=== PATIENT | male | born 1945 | race Caucasian/White ===

== ENCOUNTER 2018-02-28 18:04 | Inpatient (IN) | payer OTHER ==
--- NOTE | 2018-02-28 19:13 | PDOC ---
History of Present Illness - General Chief Complaint: Edema Stated Complaint: LEFT LEG SWELLING Time Seen by Provider: 02/28/18 19:10 - History of Present Illness Initial Comments: patient is a 72 year old male, with a significant past medical history of CAD, IDDM2, ESRD (on dialysis), who presents to the emergency department from [facility] complaining of poorly healed L toe laceration on the L toe of one month duration. Pt states he suffered a mechanical fall one month ago and lacerated the plantar surface of his distal first phalanx on L foot. Pt states the toe has healed poorly, with no evidence of inflammation or purulence drainage, but becoming more necrotic in appearance and now completely numb in sensation. Pt was recently seen by Dr. Nieves who evaluated him for a possible L popliteal stent, however placement was delayed due to two bouts of PNA recently secondary to R arm fistula procedure for dialysis. Pt finished course of oral abx, however unknown name. Pt is presenting from [facility]. Denies any sick contacts, recent travel or infectious symptoms. Pt with worsening fatigue, constipation over last week. Pt with recent tunneled catheter for dialysis due to issues with R arm fistula (R arm edema, hand weakness/numbness) . Pt receives dialysis TuThSat. Patient denies chest pain, shortness of breath, headache or dizziness. Denies fever, chills, nausea, vomiting, diarrhea. Denies dysuria, frequency, urgency and hematuria. One week of constipation. Allergies: none Past surgical history: R hip fx repair, dialysis port placement one month ago; pacemaker exchange x3, quad bypass; prior cardiac stent Social History: Former smoker 11-12 years ago, one ppd; current drinker, 2-3 drinks per day; no drug use PMD: Dr. Nur 02/28/18 19:11 02/28/18 23:23 Past History - Past Medical History Allergies/Adverse Reactions: Allergies Allergy/AdvReac Type Severity Reaction Status Date / Time No Known Allergies Allergy Verified 02/28/18 18:24 Home Medications: Ambulatory Orders Acetaminophen 650 mg PO BID 02/28/18 Acetaminophen 650 mg PO Q4H PRN 02/28/18 Albuterol 2.5/Ipratropium 0.5 [Duoneb -] 1 amp NEB TID 02/28/18 Amoxicillin/Potassium Clav [Augmentin 500-125 Tablet] 1 each PO BID 02/28/18 Aspirin [ASA -] 81 mg PO DAILY 02/28/18 Atorvastatin Ca [Lipitor] 80 mg PO HS 02/28/18 Calcium Acetate [Phoslo -] 667 mg PO TID 02/28/18 Clopidogrel Bisulfate [Plavix -] 75 mg PO DAILY 02/28/18 Insulin (LOG) Aspart [NovoLOG -] 0 units SQ TID 02/28/18 Insulin Glargine,Hum.rec.anlog [Lantus] 16 unit SQ HS 02/28/18 Levothyroxine [Synthroid -] 25 mcg PO DAILY 02/28/18 Lisinopril 10 mg PO DAILY 02/28/18 Metoprolol Succinate [Toprol Xl] 100 mg PO DAILY 02/28/18 Multivitamin [Multiple Vitamins] 1 each PO DAILY 02/28/18 Oxycodone HCl/Acetaminophen [Percocet 5-325 mg Tablet] 1 - 2 tab PO BID PRN Pantoprazole Sodium 40 mg PO DAILY 02/28/18 Sennosides [Senna -] 1 tab PO HS 02/28/18 Sertraline HCl [Zoloft -] 25 mg PO HS 02/28/18 Sitagliptin Phosphate [Januvia] 25 mg PO DAILY 02/28/18 Cardiac Disorders: Yes (a-fib) COPD: No CHF: Yes Diabetes: Yes (Type 2) Psychiatric Problems: Yes (depression) Thyroid Disease: Yes (Hypothyroidism) Other medical history: End stage renal - Surgical History Cardiac Surgery: Yes (CABG x 3, PPM, Defibrillator) - Suicide/Smoking/Psychosocial Hx Smoking History: Former smoker Have you smoked in the past 12 months: No If you are a former smoker, when did you quit?: 2004 Information on smoking cessation initiated: No Hx Alcohol Use: No Drug/Substance Use Hx: No Substance Use Type: None Review of Systems - Review of Systems Comments:: GENERAL/CONSTITUTIONAL: No fever or chills. worsening fatigue. HEAD, EYES, EARS, NOSE AND THROAT: No change in vision. No ear pain or discharge. No sore throat. CARDIOVASCULAR: No chest pain or shortness of breath RESPIRATORY: Persistent productive cough, wheezing. No hemoptysis. GASTROINTESTINAL: +abdominal distention, constipation. No nausea, vomiting, diarrhea. GENITOURINARY: No dysuria, frequency, or change in urination. MUSCULOSKELETAL: L foot swelling, decreased sensation in L toe. No joint or muscle swelling or pain. No neck or back pain. SKIN: No rash NEUROLOGIC: +Decreased sensation in feet BL. No headache, vertigo, loss of consciousness, or change in strength/sensation. ENDOCRINE: No increased thirst. No abnormal weight change HEMATOLOGIC/LYMPHATIC: No anemia, easy bleeding, or history of blood clots. ALLERGIC/IMMUNOLOGIC: No hives or skin allergy. 02/28/18 19:11 *Physical Exam - Vital Signs Last Vital Signs Temp Pulse Resp BP Pulse Ox 97.9 F 80 16 136/66 92 L 02/28/18 18:05 02/28/18 18:05 02/28/18 18:05 02/28/18 18:05 02/28/18 18:05 - Physical Exam Comments: GENERAL: Elderly man, Awake, alert, and fully oriented, in no acute distress HEAD: No signs of trauma, normocephalic, atraumatic EYES: PERRLA, EOMI, sclera anicteric, conjunctiva clear ENT: Poor dentition. Auricles normal inspection, hearing grossly normal, nares patent, oropharynx clear without exudates. Moist mucosa NECK: Normal ROM, supple, no lymphadenopathy, JVD, or masses LUNGS: Bibasilar crackles, decreased air entry BL. No distress, speaks full sentences. HEART: Regular rate and rhythm, normal S1 and S2, no murmurs, rubs or gallops, peripheral pulses normal and equal bilaterally. L anterior PPM noted. TDC on R chest. ABDOMEN: Moderately distended, Soft, nontender, normoactive bowel sounds. No guarding, no rebound. No masses. Negative fluid wave shift. EXTREMITIES : L 1st digit with necrotic base at distal tip. No purulence of erythema. Numb to palpation on dorsal surface of toe. All other toes and surfaces normal to inspection, Normal range of motion, 2+ pedal edema in L foot. No palpable pulses in L leg, however foot is warm; 1+ DP/PT pulse in R foot. No clubbing or cyanosis. 1+ edema in R hand, R-sided dialysis fistula noted in arm. 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 Cranial nerves II through XII grossly intact. Normal speech, normal gait, no focal sensorimotor deficits SKIN: Warm, Dry, normal turgor, no rashes or lesions noted 02/28/18 19:11 ED Treatment Course - LABORATORY CBC & Chemistry Diagram: 02/28/18 21:10 02/28/18 21:10 Medical Decision Making - Medical Decision Making Patient is a 72 year old male, with a significant past medical history of CAD, IDDM2, ESRD (on dialysis), who presents to the emergency department complaining of poorly healed L toe laceration on the L toe for last month. Pt also with chronic cough for 3 weeks. Will require f/u with Dr. Nieves. Plan: -cbc, cmp, coags, ESR, CRP - Blood, urine cultures -> abx -vascular consult - Arterial and venous doppler of leg - CXR, XR of L foot - Dressing changes 02/28/18 20:11 *DC/Admit/Observation/Transfer Diagnosis at time of Disposition: CHF (congestive heart failure), Toe necrosis - Discharge Dispostion Condition at time of disposition: Fair Decision to Admit order: Yes Decision to Admit order Date/Time: Discussed case with Hospitalist Dr. Coates. Will admit to Tele obs. Sign-out given to Dr. Swartz. 03/01/18 00:47 - Referrals - Patient Instructions - Post Discharge Activity
--- NOTE | 2018-02-28 20:05 | PDOC ---
Attending Attestation - HPI HPI: 02/28/18 21:10 The patient is a 72 year old male from [facility], with a significant past medical history of CAD, DM, end,stage renal disease on dialysis who presents to the emergency department with, one month of a left toe laceration. The patient reports falling a month ago when he obtained a laceration on the first distal phalanx of the left foot. He reports the laceration has not healed well and is described as painful and numb. The patient reports to be following up with Dr. Nieves for a possible left popliteal stent. This has been delayed, however, by two episodes of PNA. He denies any recent fevers, chills, headache or dizziness. He denies any recent nausea, vomit, diarrhea or constipation. He denies any recent chest pain or shortness of breath. He denies any recent dysuria, frequency, urgency or hematuria. Allergies: NKA Past surgical history: R hip fx repair, dialysis port placement one month ago; pacemaker exchange x3, quadruple bypass. Social History: Nonsmoker. Denies EtOH use and recreational drug use. Primary Care Physician: Dr. Nur <Duran Beckham - Last Filed: 02/28/18 21:10> - Resident Resident Name: Placido Luque - ED Attending Attestation I have performed the following: I have examined & evaluated the patient, The case was reviewed & discussed with the resident, I agree w/resident's findings & plan, Exceptions are as noted - Physicial Exam PE: 02/28/18 20:05 *Physical Exam General Appearance: Yes: Appropriately Dressed. No: Apparent Distress, Intoxicated HEENT: positive: EOMI, KASI, Normal ENT Inspection, Normal Voice, TMs Normal, Pharynx Normal. negative: Pale Conjunctivae, Photophobia, Scleral Icterus (R), Scleral Icterus (L) Neck: positive: Trachea midline, Normal Thyroid, Supple. negative: Tender, Rigid, Carotid bruit, Stridor, Lymphadenopathy (R), Lymphadenopathy (L), Thyromegaly Respiratory/Chest: positive: Lungs Clear, Normal Breath Sounds. negative: Chest Tender, Respiratory Distress, Accessory Muscle Use, Labored Respiration, RES, Crackles, Rales, Rhonchi, Stridor, Wheezing, Dullness Cardiovascular: positive: Regular Rhythm, Regular Rate, S1, S2. negative: Edema , JVD, Murmur, Bradycardia, Tachycardia Vascular Pulses: Dorsalis-Pedis (R): 2+, Doralis-Pedis (L): 2+ Gastrointestinal/Abdominal: positive: Normal Bowel Sounds, Flat, Soft. negative : Tender, Organomegaly, Pulsatile Mass, Increased Bowel Sounds, Decreased BS, Distended, Guarding, Rebound, Hernia, Hepatomegaly, Spleenomegaly Lymphatic: negative: Adenopathy, Tenderness Musculoskeletal: right big toe necrotic appearing, dry. non-tender negative: CVA Tenderness, Decreased Range of Motion Extremity: positive: Normal Capillary Refill, Normal Inspection, Normal Range of Motion, Pelvis Stable. negative: Tender, Pedal Edema, Swelling, Erythema Integumentary: positive: Normal Color, Dry, Warm. negative: Cyanotic, Erythema , Jaundice, Rash Neurologic: positive: air conditioning unit tester II-XII NML intact, Fully Oriented, Alert, Normal Mood/ Affect, Motor Strength 5/5. negative: EOM Palsy, Facial Droop, Sensory Deficit - Medical Decision Making 03/01/18 19:16 Pt was admittted to [facility] for definitive care <Blayne Dutta - Last Filed: 03/01/18 19:17> Attestations - Attestations 02/28/18 21:11 Documentation prepared by Duran Beckham, acting as medical device sales representative for Blayne Dutta DO. <Duran Beckham - Last Filed: 02/28/18 21:10>
[2018-02-28 21:47] LABS: EOS % 1.3 % (0-4.5); HEMATOCRIT 29.9 % (35.4-49); HEMOGLOBIN 9.6 GM/dL (11.7-16.9); LYMPH % 13.9 % (8-40); MCH 28.4 pg (25.7-33.7); MCHC 32.2 g/dl (32.0-35.9); MEAN CELL VOLUME 88.3 fl (80-96); MEAN PLT VOLUME 9.2 fl (7.5-11.1); MONO % 12.8 % (3.8-10.2); PLATELET COUNT 231 K/MM3 (134-434); RBC 3.39 M/mm3 (4.00-5.60); RDW 17.6 % (11.9-15.9); WHITE BLOOD COUNT 6.6 K/mm3 (4.0-10.0)
[2018-02-28 21:55] LABS: INR 1.21 (0.82-1.09); PROTHROMBIN TIME (PATIENT) 13.7 SEC (9.7-13.0)
[2018-02-28] MEDS ORDERED: CLINDAMYCIN 600MG PREMIX IVPB 600 MG/50 ML BAG IVPB ONE (22:43)
[2018-02-28 22:48] LABS: ALBUMIN 3.3 g/dl (3.5-5.0); ALK PHOS 131 U/L (32-92); ANION GAP 6 (8-16); BLOOD UREA NITROGEN 35 mg/dl (7-18); CALCIUM 8.8 mg/dl (8.4-10.2); CHLORIDE 95 mmol/L (98-107); CO2 33 mmol/L (22-28); CREATININE 4.6 mg/dl (0.6-1.3); GLUCOSE,RANDOM 121 mg/dl (74-106); POTASSIUM 5.3 mmol/L (3.5-5.1); SGOT/AST 30 U/L (10-42); SGPT/ALT 17 U/L (10-40); SODIUM 134 mmol/L (136-145); TOT PROT 6.5 g/dl (6.4-8.3)
[2018-02-28] MEDS ORDERED: CLINDAMYCIN PHOSPHATE 600 MG/4 ML VIAL ONE (22:53)
[2018-02-28 22:56] LABS: BILIRUBIN,TOTAL < 0.5 mg/dl (0.2-1.0)
[2018-03-01] MEDS ORDERED: ACETAMINOPHEN 325 MG TABLET (FP) PO PRN (00:32)
[2018-03-01 00:43] LABS: ERYTHROCYTE SEDIMENTATION RATE 57 mm/hr (0-20)
--- NOTE | 2018-03-01 00:53 | HP ---
CHIEF COMPLAINT: toe ulcer PCP: Dr. Nur HISTORY OF PRESENT ILLNESS: 72 year old male with a pmh CAD s/p quadruple bypass, IDDM, ESRD (TuThuSat), hypothyroid presents to the emergency department from [facility] complaining of poorly healed L great toe laceration on the L toe of one month duration s/p mechanical fall. Patient does not feel pain on the toe and said that it has been progressively becoming more and more black and dry. Pt was recently seen by Dr. Oliver who evaluated him for a possible L popliteal stent, however placement was delayed due to two bouts of PNA. Pt is presenting from [facility]. Denies any sick contacts, recent travel or infectious symptom. Patient with recent tunneled catheter for dialysis due to issues with R arm fistula (R arm edema, hand weakness/numbness). Patient denies chest pain, shortness of breath, headache or dizziness. Denies fever, chills, nausea, vomiting, diarrhea. Denies dysuria, frequency, urgency and hematuria. One week of constipation. ER course was notable for: (1) (2) (3) Recent Travel: none PAST MEDICAL HISTORY: see above PAST SURGICAL HISTORY: R hip fx repair, dialysis port placement one month ago; pacemaker exchange x3, quad bypass; prior cardiac stent Social History: Smoking: former smoker quit 12 years ago Alcohol: denies drinking, but told ED staff drinks 2-3 a day Drugs: denies Family History: Allergies No Known Allergies Allergy (Verified 02/28/18 18:24) HOME MEDICATIONS: Home Medications Medication Instructions Recorded Acetaminophen 650 mg PO BID 02/28/18 Acetaminophen 650 mg PO Q4H PRN 02/28/18 Albuterol 2.5/Ipratropium 0.5 1 amp NEB TID 02/28/18 [Duoneb -] Amoxicillin/Potassium Clav 1 each PO BID 02/28/18 [Augmentin 500-125 Tablet] Aspirin [ASA -] 81 mg PO DAILY 02/28/18 Atorvastatin Ca [Lipitor] 80 mg PO HS 02/28/18 Calcium Acetate [Phoslo -] 667 mg PO TID 02/28/18 Clopidogrel Bisulfate [Plavix -] 75 mg PO DAILY 02/28/18 Insulin (LOG) Aspart [NovoLOG -] 0 units SQ TID 02/28/18 Insulin Glargine,Hum.rec.anlog 16 unit SQ HS 02/28/18 [Lantus] Levothyroxine [Synthroid -] 25 mcg PO DAILY 02/28/18 Lisinopril 10 mg PO DAILY 02/28/18 Metoprolol Succinate [Toprol Xl] 100 mg PO DAILY 02/28/18 Multivitamin [Multiple Vitamins] 1 each PO DAILY 02/28/18 Oxycodone HCl/Acetaminophen 1 - 2 tab PO BID PRN 02/28/18 [Percocet 5-325 mg Tablet] Pantoprazole Sodium 40 mg PO DAILY 02/28/18 Sennosides [Senna -] 1 tab PO HS 02/28/18 Sertraline HCl [Zoloft -] 25 mg PO HS 02/28/18 Sitagliptin Phosphate [Januvia] 25 mg PO DAILY 02/28/18 REVIEW OF SYSTEMS CONSTITUTIONAL: Absent: fever, chills, diaphoresis, generalized weakness, malaise, loss of appetite, weight change HEENT: Absent: rhinorrhea, nasal congestion, throat pain, throat swelling, difficulty swallowing, mouth swelling, ear pain, eye pain, visual changes CARDIOVASCULAR: Absent: chest pain, syncope, palpitations, irregular heart rate, lightheadedness , peripheral edema RESPIRATORY: cough, shortness of breath Absent: dyspnea with exertion, orthopnea, wheezing, stridor, hemoptysis GASTROINTESTINAL: abdominal distension, constipation Absent: abdominal pain, nausea, vomiting, diarrhea, melena, hematochezia GENITOURINARY: Absent: dysuria, frequency, urgency, hesitancy, hematuria, flank pain, genital pain MUSCULOSKELETAL: Foot swelling and numbness Absent: myalgia, arthralgia, joint swelling, back pain, neck pain SKIN: Absent: rash, itching, pallor HEMATOLOGIC/IMMUNOLOGIC: Absent: easy bleeding, easy bruising, lymphadenopathy, frequent infections ENDOCRINE: Absent: unexplained weight gain, unexplained weight loss, heat intolerance, cold intolerance NEUROLOGIC: Absent: headache, focal weakness or paresthesias, dizziness, unsteady gait, seizure, mental status changes, bladder or bowel incontinence PSYCHIATRIC: Absent: anxiety, depression, suicidal or homicidal ideation, hallucinations. PHYSICAL EXAMINATION Vital Signs - 24 hr 02/28/18 18:05 Temperature 97.9 F Pulse Rate 80 Respiratory 16 Rate Blood Pressure 136/66 O2 Sat by Pulse 92 L Oximetry (%) GENERAL: A&Ox3, no acute distress EYES: PERRLA, EOMI ENT: Moist mucus membranes NECK: No JVD LUNGS: bilateral, bibasilar, crackles noted, no wheezes HEART: RRR, no murmurs ABDOMEN: distended but rather soft, nontender, BS present, dull to percussion MUSCULOSKELETAL: No CVA Tenderness EXTREMITIES: 0+ pulses palpated bilaterally, L foot cool to palpation, swollen up to area of ankle, dry gangrene noted on L great toe. area of ischemia noted surrounding L foot. R foot cool to palpation, area of ischemia noted around distal phalanges of foot. R arm fistula scar noted. NEUROLOGICAL: Cranial nerves II-XII intact. Laboratory Results - last 24 hr 02/28/18 02/28/18 02/28/18 21:10 21:10 21:10 WBC 6.6 RBC 3.39 L Hgb 9.6 L Hct 29.9 L MCV 88.3 MCH 28.4 MCHC 32.2 RDW 17.6 H Plt Count 231 MPV 9.2 Neutrophils % 71.0 Lymphocytes % 13.9 Monocytes % 12.8 H Eosinophils % 1.3 Basophils % 1.0 Nucleated RBC % 0 ESR 57 H PT with INR 13.70 H INR 1.21 H Sodium 134 L Potassium 5.3 H Chloride 95 L Carbon Dioxide 33 H Anion Gap 6 L BUN 35 H Creatinine 4.6 H Creat Clearance w eGFR 12.62 Random Glucose 121 H Calcium 8.8 Total Bilirubin < 0.5 AST 30 ALT 17 Alkaline Phosphatase 131 H Total Protein 6.5 Albumin 3.3 L Current Medications Acetaminophen (Tylenol -) 650 mg PO Q6H PRN PRN Reason: PAIN Acetaminophen (Tylenol -) 325 mg PO Q12H PRN PRN Reason: PAIN LEVEL 6-10 Albuterol/Ipratropium (Duoneb -) 1 amp NEB TID [facility] Aspirin (Asa -) 81 mg PO DAILY [facility] Atorvastatin Calcium (Lipitor -) 80 mg PO HS [facility] Calcium Acetate (Phoslo -) 667 mg PO TID [facility] Heparin Sodium (Porcine) (Heparin -) 5,000 unit SQ Q8H-IV [facility] Insulin Aspart (Novolog Vial Sliding Scale -) 0 vial SQ ACHS [facility]; Protocol Levothyroxine Sodium (Synthroid -) 25 mcg PO DAILY [facility] Lisinopril (Prinivil) 10 mg PO DAILY [facility] Metoprolol Succinate (Toprol Xl -) 100 mg PO DAILY [facility] Multivitamins/Minerals/Vitamin C (Tab-A-Vit -) 1 tab PO DAILY [facility] Oxycodone HCl (Roxicodone -) 5 mg PO Q12H PRN PRN Reason: PAIN LEVEL 6-10 Pantoprazole Sodium (Protonix -) 40 mg PO DAILY [facility] Senna (Senna -) 1 tab PO HS [facility] Sertraline HCl (Zoloft -) 25 mg PO HS [facility] ASSESSMENT/PLAN: 72M hx CAD s/p quadruple bypass, IDDM, ESRD (TuTSat), hypothyroidism presents to the hospital for 1 month history of toe laceration #L Great Toe Wound: patient's toe is gangrenous and dry, will likely need evaluation for both amputation and revascularization. -clinda given in ED -vancomycin/zosyn -MRI to r/o osteo -ESR elevated -Dr. oliver consult appreciated -oxycodone for pain #Diabetes: glucose controlled -ISS -BGMS ACHS -A1C in the morning #ESRD: gets dialysis tuthusat, patient appears fluid overloaded and is making minimal urine- attempt to remove fluid during dialysis -Dr. Brady consultation appreciated -for dialysis tomorrow #Hypothyroidism: -continue synthroid #CAD: s/p pacemaker x3 -continue aspirin -hold plavix for possible surgery -continue atorvastatin 80 -lipid profile #FEN -NPO -no standing fluids -for dialysis tomorrow, careful with electrolyte repletion #Prophylaxis -heparin prophylaxis #Disposition -admit med surg -fall precautions Visit type - Emergency Visit Emergency Visit: Yes ED Registration Date: 03/01/18 Care time: The patient presented to the Emergency Department on the above date and was hospitalized for further evaluation of their emergent condition. - New Patient This patient is new to me today: Yes Date on this admission: 03/01/18 - Critical Care Critical Care patient: No Hospitalist Screening - Colonoscopy Questionnaire Colonoscopy Questionnaire: Colonoscopy Questionnaire - Patient: 50 - 75 years old and never had a screening colonoscopy: Unknown History of colon or rectal polyps, or CA: Unknown History of IBD, Crohn's disease or UC: Unknown History of abdominal radiation therapy as a child: Unknown - Relative: 1 with colon or rectal CA, or polyps at age 60 or younger: Unknown Colon or rectal CA diagnosed at age 45 or younger: Unknown Multiple relatives with colon or rectal CA: Unknown - Outcome: Screening Result: Negative Screen
[2018-03-01] MEDS ORDERED: POLYETHYLENE GLYCOL 3350 119 GM BTL PO ONE (01:14)
[2018-03-01] MEDS ORDERED: HEPARIN NA (PORCINE) 5,000 UNITS/ML 1ML VIAL SQ SCH (02:00)
[2018-03-01] MEDS ORDERED: SODIUM POLYSTYRENE SULFONATE 15 GM/60 ML BOTTLE PO ONE (04:09)
--- NOTE | 2018-03-01 04:39 | PN ---
Teaching Attending Note Name of Resident: Roberth Swartz ATTENDING PHYSICIAN STATEMENT I saw and evaluated the patient. Chart, data reviewed. I reviewed the resident's note and discussed the case with the resident. I agree with the resident's findings and plan as documented. SUBJECTIVE: 72 year old male with a pmh CAD s/p quadruple bypass, IDDM, ESRD (TuThuSat), hypothyroidism presented to emergency department from [facility] complaining of pain in left foot and left hallux necrosis. Recently seen by Dr. Nieves of vascular surgery. Denied any fevers, chills, or night sweats. Recent mechanical fall+ OBJECTIVE: Last Vital Signs Temp Pulse Resp BP Pulse Ox 97.5 F L 81 18 140/76 92 L 03/01/18 02:46 03/01/18 02:46 03/01/18 02:46 03/01/18 02:46 02/28/18 18:05 general -nad, aaox3 heent -at,nc, moist oral mucosa neck -supple cv-s1+s2+rrr chest- -bibasilar crackles abdomen- soft, nt ext -left 1st toe necrotic appearing, some surrounding erythema, right arm avf- good thrill and bruit Abnormal Lab Results 02/28/18 02/28/18 02/28/18 21:10 21:10 21:10 RBC 3.39 L Hgb 9.6 L Hct 29.9 L RDW 17.6 H Monocytes % 12.8 H ESR 57 H PT with INR 13.70 H INR 1.21 H Sodium 134 L Potassium 5.3 H Chloride 95 L Carbon Dioxide 33 H Anion Gap 6 L BUN 35 H Creatinine 4.6 H Random Glucose 121 H Alkaline Phosphatase 131 H C-Reactive Protein 3.2 H Albumin 3.3 L ASSESSMENT AND PLAN: #72yo man with ESRD on HD w/ PVD w/ left hallux dry gangrene and likely surrounding cellulitis No signs of sepsis. Possible underlying osteomyelitis. -blood cultures x2 -crp -vancomycin 1g stat -zosyn 2.25g iv stat -podiatry and vascular surgery evaluation -id for antiobiotic approval -local wound care -leg elevation -mri of foot -Renal for HD set up. Continue home meds -heparin sc for dvt ppx
[2018-03-01] MEDS: HEPARIN NA (PORCINE) 5,000 UNITS/ML 1ML VIAL SQ SCH ×2 (06:08→21:08)
[2018-03-01 07:11] LABS: HEMATOCRIT 28.4 % (35.4-49); HEMOGLOBIN 9.2 GM/dL (11.7-16.9); MCH 28.9 pg (25.7-33.7); MCHC 32.5 g/dl (32.0-35.9); MEAN CELL VOLUME 88.9 fl (80-96); PLATELET COUNT 207 K/MM3 (134-434); RDW 17.5 % (11.9-15.9); WHITE BLOOD COUNT 7.1 K/mm3 (4.0-10.0)
[2018-03-01 07:48] LABS: ANION GAP 6 (8-16); BLOOD UREA NITROGEN 40 mg/dL (7-18); CALCIUM 8.4 mg/dL (8.5-10.1); CHLORIDE 99 mmol/L (98-107); CO2 32 mmol/L (21-32); CREATININE 5.1 mg/dL (0.7-1.3); GLUCOSE,RANDOM 98 mg/dL (74-106); MAGNESIUM 2.9 mg/dL (1.8-2.4); PHOSPHOROUS 2.9 mg/dL (2.5-4.9); POTASSIUM 5.5 mmol/L (3.5-5.1); SODIUM 137 mmol/L (136-145)
[2018-03-01 08:41] LABS: URINE APPEARANCE CLEAR; URINE BILIRUBIN NEGATIVE (<2.0 mg/dL); URINE BLOOD 2+ (NEGATIVE); URINE COLOR DKYELLOW; URINE GLUCOSE (UA) 1+ (NEGATIVE); URINE KETONE NEGATIVE (NEGATIVE); URINE LEUK ESTERASE NEGATIVE (NEGATIVE); URINE NITRITE NEGATIVE (NEGATIVE); URINE UROBILINOGEN NEGATIVE mg/dL (0.2-1.0)
[2018-03-01 08:48] LABS: URINE PROTEIN 3+ (NEGATIVE)
[2018-03-01 08:49] LABS: EPI CELLS RARE /HPF (FEW); URINE HYALINE CAST 1 /lpf; URINE MUCUS RARE
[2018-03-01 09:34] LABS: CHOLESTEROL 62 mg/dL (50-200); HDL CHOLESTEROL 34 mg/dL (40-60); TRIGLYCERIDES 61 mg/dL (35-160)
[2018-03-01] MEDS ORDERED: ACETAMINOPHEN 325 MG TABLET (FP) ONE (09:38)
[2018-03-01] MEDS ORDERED: oxyCODONE HCL 5 MG TABLET ONE (09:38)
[2018-03-01] MEDS ORDERED: LEVOTHYROXINE NA 25 MCG TABLET (FP) ONE (09:38)
[2018-03-01] MEDS: INSULIN SLIDING SCALE (NOVOLOG) 1 VIAL SQ SCH ×3 (09:40→21:04)
[2018-03-01] MEDS ORDERED: ALBUTEROL SO4 2.5/IPRATROPIUM 0.5 INH SOL 3 ML VIAL.NEB. NEB ONE (09:42)
[2018-03-01] MEDS ORDERED: CLOPIDOGREL BISULFATE 75 MG TABLET (FP) PO SCH (10:00)
[2018-03-01] MEDS ORDERED: PIPERACILLIN/TAZOB 2.25 GM 2.25 GM in DEXTROSE 5%-WATER - 50 ML IVPB SCH (10:00)
[2018-03-01] MEDS: LEVOTHYROXINE NA 25 MCG TABLET (FP) PO SCH (10:01)
[2018-03-01] MEDS: CALCIUM ACETATE 667 MG CAPSULE (FP) PO SCH (10:01)
[2018-03-01] MEDS: ALBUTEROL SO4 2.5/IPRATROPIUM 0.5 INH SOL 3 ML VIAL.NEB. NEB SCH ×2 (10:01→21:15)
[2018-03-01] MEDS: MULTIVITAMINS (DAILY MVI) TABLET (FP) PO SCH (10:02)
[2018-03-01] MEDS: PANTOPRAZOLE 40 MG TABLET (FP) PO SCH (10:02)
[2018-03-01] MEDS: LISINOPRIL 10 MG TABLET (FP) PO SCH (10:02)
[2018-03-01] MEDS: ASPIRIN 81 MG CHEWABLE TABLETS PO SCH (10:02)
[2018-03-01] MEDS: oxyCODONE HCL 5 MG TABLET PO PRN (10:38)
[2018-03-01] MEDS: ACETAMINOPHEN 325 MG TABLET (FP) PO PRN (10:38)
[2018-03-01] MEDS ORDERED: VANCOMYCIN 1,000 MG in DEXTROSE 5%-WATER - 250 ML IVPB SCH (11:00)
--- NOTE | 2018-03-01 13:36 | CONSULT ---
Consult Consult Specialty:: Nephrology Reason for Consultation:: ESRD - History of Present Illness Chief Complaint: non healing left toe ulcer History of Present Illness: Pt is a 72 year old male with pmhx of CAD, DM, ESRD (TTS), and PNA who presents to the ER with a non healing left toe ulcer. I was called to evaluate him as he is on HD. He is on a TTS schedule. His last dialysis was on Monday. He denies fevers or chills. He says he does have PVD and follows with Dr Nieves. He denies chest pain or palpitations. - History Source History Provided By: Patient, Medical Record - Past Medical History Cardio/Vascular: Yes: CAD Renal/: Yes: Renal Inusuff, Hemodialysis Endocrine: Yes: Diabetes Mellitus - Past Surgical History Past Surgical History: Yes: AV Fistula/Graft - Alcohol/Substance Use Hx Alcohol Use: No - Smoking History Smoking history: Former smoker Have you smoked in the past 12 months: No If you are a former smoker, when did you quit?: 2004 Home Medications - Allergies Allergies/Adverse Reactions: Allergies Allergy/AdvReac Type Severity Reaction Status Date / Time No Known Allergies Allergy Verified 02/28/18 18:24 - Home Medications Home Medications: Ambulatory Orders Acetaminophen 650 mg PO BID 02/28/18 Acetaminophen 650 mg PO Q4H PRN 02/28/18 Albuterol 2.5/Ipratropium 0.5 [Duoneb -] 1 amp NEB TID 02/28/18 Amoxicillin/Potassium Clav [Augmentin 500-125 Tablet] 1 each PO BID 02/28/18 Aspirin [ASA -] 81 mg PO DAILY 02/28/18 Atorvastatin Ca [Lipitor] 80 mg PO HS 02/28/18 Calcium Acetate [Phoslo -] 667 mg PO TID 02/28/18 Clopidogrel Bisulfate [Plavix -] 75 mg PO DAILY 02/28/18 Insulin (LOG) Aspart [NovoLOG -] 0 units SQ TID 02/28/18 Insulin Glargine,Hum.rec.anlog [Lantus] 16 unit SQ HS 02/28/18 Levothyroxine [Synthroid -] 25 mcg PO DAILY 02/28/18 Lisinopril 10 mg PO DAILY 02/28/18 Metoprolol Succinate [Toprol Xl] 100 mg PO DAILY 02/28/18 Multivitamin [Multiple Vitamins] 1 each PO DAILY 02/28/18 Oxycodone HCl/Acetaminophen [Percocet 5-325 mg Tablet] 1 - 2 tab PO BID PRN Pantoprazole Sodium 40 mg PO DAILY 02/28/18 Sennosides [Senna -] 1 tab PO HS 02/28/18 Sertraline HCl [Zoloft -] 25 mg PO HS 02/28/18 Sitagliptin Phosphate [Januvia] 25 mg PO DAILY 02/28/18 Family Disease History - Family Disease History Family History: Denies Review of Systems - Review of Systems Constitutional: reports: Malaise Eyes: reports: No Symptoms HENT: reports: No Symptoms Neck: reports: No Symptoms Cardiovascular: reports: No Symptoms Respiratory: reports: No Symptoms Gastrointestinal: reports: No Symptoms Genitourinary: reports: No Symptoms Breasts: reports: No Symptoms Reported Musculoskeletal: reports: Other (left toe swelling and pain) Neurological: reports: No Symptoms Endocrine: reports: No Symptoms Hematology/Lymphatic: reports: No Symptoms Physical Exam Vital Signs: Vital Signs Temperature 98.0 F 03/01/18 11:27 Pulse Rate 81 03/01/18 11:27 Respiratory Rate 18 03/01/18 11:27 Blood Pressure 142/80 03/01/18 11:27 O2 Sat by Pulse Oximetry (%) 99 03/01/18 11:27 Constitutional: Yes: Calm Eyes: Yes: Conjunctiva Clear HENT: Yes: Atraumatic Neck: Yes: Supple Cardiovascular: Yes: S1, S2 Respiratory: Yes: On Nasal O2, Rhonchi Gastrointestinal: Yes: Soft Renal/: Yes: WNL Musculoskeletal: Yes: Other (left toe erythema and swelling) Edema: Yes Edema: LLE: 1+, RLE: 1+ Neurological: Yes: Oriented Psychiatric: Yes: Oriented Labs: CBC, BMP 03/01/18 05:47 03/01/18 05:47 Laboratory Tests 02/28/18 02/28/18 03/01/18 21:10 21:10 05:47 Hgb 9.6 L 9.2 L Sodium Potassium 5.3 H Creatinine 4.6 H 03/01/18 05:47 Hgb Sodium 137 Potassium 5.5 H Creatinine 5.1 H Imaging - Results Chest X-ray: Report Reviewed Problem List - Problems (1) ESRD (end stage renal disease) Code(s): N18.6 - END STAGE RENAL DISEASE (2) Hyperkalemia Code(s): E87.5 - HYPERKALEMIA Assessment/Plan Current Medications Generic Name Dose Route Start Last Admin Trade Name Freq PRN Reason Stop Dose Admin Acetaminophen 650 mg 03/01/18 00:27 03/01/18 10:38 Tylenol - PO 650 mg Q6H PRN Administration PAIN Acetaminophen 325 mg 03/01/18 00:32 Tylenol - PO Q12H PRN PAIN LEVEL 6-10 Albuterol/Ipratropium 1 amp 03/01/18 08:00 03/01/18 10:01 Duoneb - NEB 1 amp RTID [facility] Administration Aspirin 81 mg 03/01/18 10:00 03/01/18 10:02 Asa - PO 81 mg DAILY [facility] Administration Atorvastatin Calcium 80 mg 03/01/18 22:00 Lipitor - PO HS [facility] Calcium Acetate 667 mg 03/01/18 08:00 03/01/18 10:01 Phoslo - PO 667 mg TIDCM [facility] Administration Heparin Sodium (Porcine) 5,000 unit 03/01/18 06:00 03/01/18 06:08 Heparin - SQ 5,000 unit TID [facility] Administration Vancomycin HCl 1,000 mg/ 250 mls @ 200 mls/hr 03/01/18 11:00 Dextrose IVPB Q24H [facility] Protocol Piperacillin Sod/Tazobactam 50 mls @ 100 mls/hr 03/01/18 10:00 03/01/18 10:02 Sod 2.25 gm/ Dextrose IVPB 100 mls/hr BID [facility] Administration Protocol Insulin Aspart 0 vial 03/01/18 07:00 03/01/18 09:40 Novolog Vial Sliding Scale - SQ Not Given ACHS [facility] Protocol Levothyroxine Sodium 25 mcg 03/01/18 07:00 03/01/18 10:01 Synthroid - PO 25 mcg DAILY@0700 [facility] Administration Lisinopril 10 mg 03/01/18 10:00 03/01/18 10:02 Prinivil PO 10 mg DAILY [facility] Administration Metoprolol Succinate 100 mg 03/01/18 10:00 03/01/18 10:02 Toprol Xl - PO 100 mg DAILY [facility] Administration Multivitamins/Minerals/Vitamin C 1 tab 03/01/18 10:00 03/01/18 10:02 Tab-A-Vit - PO 1 tab DAILY [facility] Administration Oxycodone HCl 5 mg 03/01/18 00:32 03/01/18 10:38 Roxicodone - PO 5 mg Q12H PRN Administration PAIN LEVEL 6-10 Pantoprazole Sodium 40 mg 03/01/18 10:00 03/01/18 10:02 Protonix - PO 40 mg DAILY [facility] Administration Senna 1 tab 03/01/18 22:00 Senna - PO HS [facility] Sertraline HCl 25 mg 03/01/18 22:00 Zoloft - PO HS [facility] Impression 1. ESRD 2. hyperkalemia 3. DM 4. CAD 5. PVD 6. DFU 7. anemia Plan - will arrange for HD today - abx per AID - vascular eval - podiatry eval - follow cultures - will treat potassium with HD - Right avF, 3:30, 2 k bath, 450 abf, aranesp 35 mcg received on Monday
[2018-03-01] MEDS ORDERED: SODIUM CHLORIDE 250 ML IV PRN (13:39)
--- NOTE | 2018-03-01 13:44 | PN ---
Progress Note (short form) - Note Progress Note: ID Consult dictated Gangrene L foot R/O sepsis secondary to foot source ESRD Await c/s Surgical evaluation Empiric zosyn/ vancomycin, adjusted for ESRD
--- NOTE | 2018-03-01 14:37 | CONS ---
DATE OF CONSULTATION: DATE OF DICTATION: 03/01/2018 The patient is a 72-year-old diabetic male, history of end-stage renal disease on hemodialysis, evaluated for gangrene of the left foot. He is a shelter resident. He sustained a laceration to his left great toe approximately 1 month ago. He had fallen and sustained a laceration. Since that time it has become more swollen and erythematous. He developed necrotic changes of the great toe and increased numbness. He presented to the emergency room where he was found to have gangrene of the left great toe and erythema of the adjacent toes. He denies any purulent wound drainage. No associated fever or chills. He recently completed a course of antibiotics for pneumonia. Cultures were obtained. He was empirically treated with vancomycin, Zosyn, and clindamycin. PAST MEDICAL HISTORY: Positive for end-stage renal disease on hemodialysis, insulin-dependent diabetes mellitus, coronary artery disease, atrial fibrillation, congestive heart failure, depression, hypothyroidism. PAST SURGICAL HISTORY: Status post right upper extremity AV fistula, a history of right chest dialysis catheter which has been removed, right hip fracture, permanent pacemaker. ALLERGIES: No known allergies. SOCIAL HISTORY: Former smoker. REVIEW OF SYSTEMS: Neurologic: No loss of consciousness, seizure activity, focal weakness. Cardiac: Negative chest pain or palpitations. Respiratory: Negative cough or sputum production. Gastrointestinal: Negative vomiting or diarrhea. Genitourinary: End-stage renal disease on dialysis. LABORATORY DATA: White count 7.1, hematocrit 28.4, platelet count 207, BUN 46, creatinine 5.1. ESR is 57. Urinalysis with 4 white cells. Blood cultures pending. Chest x-ray: Left pleural effusion. PHYSICAL EXAMINATION: General: He is awake and alert. He is chronically ill appearing. Vital Signs: Temperature 97.4, blood pressure 136/51, pulse 82, regular. Respirations 22 per minute. HEENT: Sclerae are anicteric. Cardiovascular: Heart sounds S1, S2. Lungs: Clear. Abdomen: Soft. No tenderness elicited. No mass, rebound, rigidity. Extremities: There is an AV fistula present in the right upper extremity. Surgical dressing is present over the right dialysis catheter exit site. Examination of the left foot: There is dry gangrene involving the left great toe, with hyperemia involving the remaining great toe as well as the 2nd and 3rd toes. No purulent wound drainage or foul odor is noted. IMPRESSION: 1. Gangrene, left foot. 2. Rule out sepsis secondary to foot source. 3. End-stage renal disease on hemodialysis. Await culture results. Surgical evaluation, empiric antibiotic coverage with Zosyn and vancomycin adjusted for end-stage renal disease. Will follow. Thank you for the kind referral. DORITA MAYER M.D. [id number]
[2018-03-01] MEDS ORDERED: EPOETIN ALFA 2,000 UNIT/1 ML VIAL IVPUSH ONE (15:00)
[2018-03-01] MEDS ORDERED: INSULIN (NOVOLOG) ASPART 100 UNITS/ML 10ML VIAL ONE (20:31)
[2018-03-01] MEDS ORDERED: PIPERACILLIN/TAZOBACTAM 2.25 GM VIAL IVPB ONE (20:48)
[2018-03-01] MEDS ORDERED: DEXTROSE 5%-WATER - 50 ML IVPB ONE (20:49)
[2018-03-01] MEDS: PIPERACILLIN/TAZOB 2.25 GM 2.25 GM in DEXTROSE 5%-WATER - 50 ML IVPB SCH (21:02)
[2018-03-01] MEDS: ATORVASTATIN CA 80 MG TABLET (FP) PO SCH (21:04)
[2018-03-01] MEDS: SENNOSIDES 8.6MG TABLET (FP) PO SCH (21:04)
[2018-03-01] MEDS: SERTRALINE HCL 25 MG TABLET (FP) PO SCH (21:04)
[2018-03-01] MEDS ORDERED: MAGNESIUM HYDROX 2400MG/30ML ORAL SUSPENSION 30 ML CUP PO ONE (23:51)
[2018-03-02] MEDS ORDERED: PIPERACILLIN/TAZOBACTAM 2.25 GM VIAL IVPB ONE ×3 (02:58→16:57)
[2018-03-02] MEDS ORDERED: DEXTROSE 5%-WATER - 50 ML IVPB ONE ×3 (02:58→16:57)
[2018-03-02] MEDS: PIPERACILLIN/TAZOB 2.25 GM 2.25 GM in DEXTROSE 5%-WATER - 50 ML IVPB SCH ×3 (03:00→17:04)
[2018-03-02] MEDS ORDERED: PT OWN MED DRAWER 7, Y5N ONE (05:51)
[2018-03-02] MEDS: HEPARIN NA (PORCINE) 5,000 UNITS/ML 1ML VIAL SQ SCH ×3 (06:02→22:23)
[2018-03-02] MEDS: INSULIN SLIDING SCALE (NOVOLOG) 1 VIAL SQ SCH ×4 (06:02→22:22)
[2018-03-02] MEDS: LEVOTHYROXINE NA 25 MCG TABLET (FP) PO SCH (06:03)
[2018-03-02] MEDS: ALBUTEROL SO4 2.5/IPRATROPIUM 0.5 INH SOL 3 ML VIAL.NEB. NEB SCH ×3 (08:02→20:23)
[2018-03-02] MEDS: LISINOPRIL 10 MG TABLET (FP) PO SCH (10:22)
[2018-03-02] MEDS: MULTIVITAMINS (DAILY MVI) TABLET (FP) PO SCH (10:22)
[2018-03-02] MEDS: ASPIRIN 81 MG CHEWABLE TABLETS PO SCH (10:22)
[2018-03-02] MEDS: PANTOPRAZOLE 40 MG TABLET (FP) PO SCH (10:22)
[2018-03-02] MEDS: CALCIUM ACETATE 667 MG CAPSULE (FP) PO SCH ×3 (10:23→17:04)
[2018-03-02] MEDS ORDERED: SODIUM CHLORIDE 250 ML IV PRN (10:33)
--- NOTE | 2018-03-02 14:00 | PN ---
Progress Note (short form) - Note Progress Note: pt seen/examined chart reviewed comfortable mild sob. no cp. Vital Signs Temp 97.7 F 03/02/18 10:00 Pulse 80 03/02/18 10:00 Resp 20 03/02/18 10:00 BP 153/64 03/02/18 10:00 Pulse Ox 100 03/02/18 09:00 Intake & Output 03/01/18 03/02/18 03/02/18 23:59 11:59 23:59 Intake Total 200 50 Balance 200 50 Weight 163 lb 163 lb 3.2 oz Intake: IVPB 50 Oral 200 Other: Voiding Method Urinal Urinal Height 5 ft 6 in Body Mass Index (BMI) 26.3 Weight Measurement Method Standing Scale Standing Scale Active Medications Acetaminophen (Tylenol -) 650 mg PO Q6H PRN PRN Reason: PAIN Last Admin: 03/01/18 10:38 Dose: 650 mg Acetaminophen (Tylenol -) 325 mg PO Q12H PRN PRN Reason: PAIN LEVEL 6-10 Albuterol/Ipratropium (Duoneb -) 1 amp NEB RTID [facility] Last Admin: 03/02/18 13:50 Dose: 1 amp Aspirin (Asa -) 81 mg PO DAILY [facility] Last Admin: 03/02/18 10:22 Dose: 81 mg Atorvastatin Calcium (Lipitor -) 80 mg PO HS [facility] Last Admin: 03/01/18 21:04 Dose: 80 mg Calcium Acetate (Phoslo -) 667 mg PO TIDCM [facility] Last Admin: 03/02/18 10:23 Dose: 667 mg Heparin Sodium (Porcine) (Heparin -) 5,000 unit SQ TID [facility] Last Admin: 03/02/18 06:02 Dose: Not Given Piperacillin Sod/Tazobactam (Sod 2.25 gm/ Dextrose) 50 mls @ 100 mls/hr IVPB Q8H-IV [facility]; Protocol Last Admin: 03/02/18 10:22 Dose: 100 mls/hr Insulin Aspart (Novolog Vial Sliding Scale -) 0 vial SQ ACHS [facility]; Protocol Last Admin: 03/02/18 12:24 Dose: Not Given Levothyroxine Sodium (Synthroid -) 25 mcg PO DAILY@0700 [facility] Last Admin: 03/02/18 06:03 Dose: 25 mcg Lisinopril (Prinivil) 10 mg PO DAILY [facility] Last Admin: 05/25/18 10:22 Dose: 10 mg Metoprolol Succinate (Toprol Xl -) 100 mg PO DAILY [facility] Last Admin: 03/02/18 10:22 Dose: 100 mg Multivitamins/Minerals/Vitamin C (Tab-A-Vit -) 1 tab PO DAILY [facility] Last Admin: 03/02/18 10:22 Dose: 1 tab Oxycodone HCl (Roxicodone -) 5 mg PO Q12H PRN PRN Reason: PAIN LEVEL 6-10 Last Admin: 03/01/18 10:38 Dose: 5 mg Pantoprazole Sodium (Protonix -) 40 mg PO DAILY [facility] Last Admin: 03/02/18 10:22 Dose: 40 mg Senna (Senna -) 1 tab PO [facility] Last Admin: 03/01/18 21:04 Dose: 1 tab Sertraline HCl (Zoloft -) 25 mg PO HS [facility] Last Admin: 03/01/18 21:04 Dose: 25 mg CBC, BMP 03/01/18 05:47 03/01/18 05:47 Physical Exam Constitutional: Yes: Calm, comfortable Eyes: Yes: Conjunctiva Clear HENT: Yes: wnl Neck: Yes: Supple, no jvd Cardiovascular: Yes: S1, S2 rrr Respiratory: Yes: Diminished at bases Gastrointestinal: Yes: Soft/ non tender Musculoskeletal: Yes: Other (left toe erythema and swelling) Edema: LLE: 1+, RLE: 1+ Neurological: Yes: alert and awake Psychiatric: Yes: Oriented Imaging - Results Chest X-ray: Report Reviewed Assessment/Plan 1. ESRD 2. hyperkalemia 3. DM 4. CAD 5. PVD 6. Anemia 7. Pleural Effusion HD per renal continue present care cardiology and pulmonary eval vascular to follow will discuss with Dr. Nieves Discussed with nursing staff also will follow Problem List - Problems (1) ASHD (arteriosclerotic heart disease) Code(s): I25.10 - ATHSCL HEART DISEASE OF [place] CORONARY ARTERY W/O ANG PCTRS (2) CHF (congestive heart failure), NYHA class IV Code(s): I50.9 - HEART FAILURE, UNSPECIFIED (3) COPD (chronic obstructive pulmonary disease) Code(s): J44.9 - CHRONIC OBSTRUCTIVE PULMONARY DISEASE, UNSPECIFIED (4) Diabetes Code(s): E11.9 - TYPE 2 DIABETES MELLITUS WITHOUT COMPLICATIONS (5) ESRD (end stage renal disease) Code(s): N18.6 - END STAGE RENAL DISEASE (6) Gangrene Code(s): I96 - GANGRENE, NOT ELSEWHERE CLASSIFIED (7) PVD (peripheral vascular disease) Code(s): I73.9 - PERIPHERAL VASCULAR DISEASE, UNSPECIFIED (8) Pleural effusion Code(s): J90 - PLEURAL EFFUSION, NOT ELSEWHERE CLASSIFIED (9) S/P CABG (coronary artery bypass graft) Code(s): Z95.1 - PRESENCE OF AORTOCORONARY BYPASS GRAFT
--- NOTE | 2018-03-02 15:58 | PN ---
Progress Note (short form) - Note Progress Note: PULMONARY CONSULTATION DICTATED 03/02/18 IMP DYSPNEA ACUTE ON CHRONIC SYSTOLIC HF SEVERE LV DYSFUNCTION CARDIOMYOPATHY ESRD ON HD LEFT PLEURAL EFFUSION COPD HTN ASHD S/P CABG,S/P PPM DM GANGRENE LEFT GREAT TOE PLAN HD PER RENAL INHALED BRONCHODILATORS O2 THORACENTESIS F/U CHEST X-RAYS CARDIOLOGY EVALUATION ABX PER ID DR GAMINO Problem List - Problems (1) CHF (congestive heart failure), NYHA class IV Code(s): I50.9 - HEART FAILURE, UNSPECIFIED (2) ESRD (end stage renal disease) Code(s): N18.6 - END STAGE RENAL DISEASE (3) COPD (chronic obstructive pulmonary disease) Code(s): J44.9 - CHRONIC OBSTRUCTIVE PULMONARY DISEASE, UNSPECIFIED (4) PVD (peripheral vascular disease) Code(s): I73.9 - PERIPHERAL VASCULAR DISEASE, UNSPECIFIED (5) ASHD (arteriosclerotic heart disease) Code(s): I25.10 - ATHSCL HEART DISEASE OF [place] CORONARY ARTERY W/O ANG PCTRS (6) Hyperkalemia Code(s): E87.5 - HYPERKALEMIA (7) S/P CABG (coronary artery bypass graft) Code(s): Z95.1 - PRESENCE OF AORTOCORONARY BYPASS GRAFT (8) HTN (hypertension) Code(s): I10 - ESSENTIAL (PRIMARY) HYPERTENSION (9) Diabetes Code(s): E11.9 - TYPE 2 DIABETES MELLITUS WITHOUT COMPLICATIONS (10) Gangrene Code(s): I96 - GANGRENE, NOT ELSEWHERE CLASSIFIED (11) Dyspnea Code(s): R06.00 - DYSPNEA, UNSPECIFIED (12) Pleural effusion Code(s): J90 - PLEURAL EFFUSION, NOT ELSEWHERE CLASSIFIED
--- NOTE | 2018-03-02 16:00 | PN ---
Progress Note, Physician History of Present Illness: Pt seen and examined at bedside. He is awake and alert. He denies shortness of breath. - Current Medication List Current Medications: Active Medications Acetaminophen (Tylenol -) 650 mg PO Q6H PRN PRN Reason: PAIN Last Admin: 03/01/18 10:38 Dose: 650 mg Acetaminophen (Tylenol -) 325 mg PO Q12H PRN PRN Reason: PAIN LEVEL 6-10 Albuterol/Ipratropium (Duoneb -) 1 amp NEB RTID [facility] Last Admin: 03/02/18 13:50 Dose: 1 amp Aspirin (Asa -) 81 mg PO DAILY [facility] Last Admin: 03/02/18 10:22 Dose: 81 mg Atorvastatin Calcium (Lipitor -) 80 mg PO HS [facility] Last Admin: 03/01/18 21:04 Dose: 80 mg Calcium Acetate (Phoslo -) 667 mg PO TIDCM [facility] Last Admin: 03/02/18 14:18 Dose: 667 mg Heparin Sodium (Porcine) (Heparin -) 5,000 unit SQ TID [facility] Last Admin: 03/02/18 14:18 Dose: 5,000 unit Piperacillin Sod/Tazobactam (Sod 2.25 gm/ Dextrose) 50 mls @ 100 mls/hr IVPB Q8H-IV [facility]; Protocol Last Admin: 03/02/18 10:22 Dose: 100 mls/hr Insulin Aspart (Novolog Vial Sliding Scale -) 0 vial SQ ACHS [facility]; Protocol Last Admin: 03/02/18 12:24 Dose: Not Given Levothyroxine Sodium (Synthroid -) 25 mcg PO DAILY@0700 [facility] Last Admin: 03/02/18 06:03 Dose: 25 mcg Lisinopril (Prinivil) 10 mg PO DAILY [facility] Last Admin: 03/02/18 10:22 Dose: 10 mg Metoprolol Succinate (Toprol Xl -) 100 mg PO DAILY [facility] Last Admin: 03/02/18 10:22 Dose: 100 mg Multivitamins/Minerals/Vitamin C (Tab-A-Vit -) 1 tab PO DAILY [facility] Last Admin: 03/02/18 10:22 Dose: 1 tab Oxycodone HCl (Roxicodone -) 5 mg PO Q12H PRN PRN Reason: PAIN LEVEL 6-10 Last Admin: 05/24/18 10:38 Dose: 5 mg Pantoprazole Sodium (Protonix -) 40 mg PO DAILY [facility] Last Admin: 03/02/18 10:22 Dose: 40 mg Senna (Senna -) 1 tab PO [facility] Last Admin: 03/01/18 21:04 Dose: 1 tab Sertraline HCl (Zoloft -) 25 mg PO [facility] Last Admin: 03/01/18 21:04 Dose: 25 mg - Objective Vital Signs: Vital Signs Temperature 97.4 F L 03/02/18 14:30 Pulse Rate 81 03/02/18 14:30 Respiratory Rate 20 03/02/18 14:30 Blood Pressure 154/68 03/02/18 14:30 O2 Sat by Pulse Oximetry (%) 100 03/02/18 09:00 Constitutional: Yes: Calm Eyes: Yes: Conjunctiva Clear HENT: Yes: Atraumatic Cardiovascular: Yes: S1, S2 Respiratory: Yes: CTA Bilaterally Gastrointestinal: Yes: Soft Genitourinary: Yes: WNL Musculoskeletal: Yes: Other (tue gangrene) Edema: No Integumentary: Yes: Other (gangrene of skin on great toe) Neurological: Yes: Oriented Psychiatric: Yes: Oriented Labs: CBC, BMP 03/01/18 05:47 03/01/18 05:47 INR, PTT INR 1.21 (0.82-1.09) H 02/28/18 21:10 Problem List - Problems (1) ESRD (end stage renal disease) Code(s): N18.6 - END STAGE RENAL DISEASE (2) Hyperkalemia Code(s): E87.5 - HYPERKALEMIA Assessment/Plan Current Medications Generic Name Dose Route Start Last Admin Trade Name Freq PRN Reason Stop Dose Admin Acetaminophen 650 mg 03/01/18 00:27 03/01/18 10:38 Tylenol - PO 650 mg Q6H PRN Administration PAIN Acetaminophen 325 mg 03/01/18 00:32 Tylenol - PO Q12H PRN PAIN LEVEL 6-10 Albuterol/Ipratropium 1 amp 03/01/18 08:00 03/02/18 13:50 Duoneb - NEB 1 amp RTID [facility] Administration Aspirin 81 mg 03/01/18 10:00 03/02/18 10:22 Asa - PO 81 mg DAILY [facility] Administration Atorvastatin Calcium 80 mg 03/01/18 22:00 05/24/18 21:04 Lipitor - PO 80 mg HS [facility] Administration Calcium Acetate 667 mg 03/01/18 08:00 03/02/18 14:18 Phoslo - PO 667 mg TIDCM [facility] Administration Heparin Sodium (Porcine) 5,000 unit 03/01/18 06:00 03/02/18 14:18 Heparin - SQ 5,000 unit TID [facility] Administration Piperacillin Sod/Tazobactam 50 mls @ 100 mls/hr 03/01/18 18:00 03/02/18 10:22 Sod 2.25 gm/ Dextrose IVPB 100 mls/hr Q8H-IV [facility] Administration Protocol Insulin Aspart 0 vial 03/01/18 07:00 03/02/18 12:24 Novolog Vial Sliding Scale - SQ Not Given ACHS [facility] Protocol Levothyroxine Sodium 25 mcg 03/01/18 07:00 03/02/18 06:03 Synthroid - PO 25 mcg DAILY@0700 [facility] Administration Lisinopril 10 mg 03/01/18 10:00 03/02/18 10:22 Prinivil PO 10 mg DAILY [facility] Administration Metoprolol Succinate 100 mg 03/01/18 10:00 03/02/18 10:22 Toprol Xl - PO 100 mg DAILY [facility] Administration Multivitamins/Minerals/Vitamin C 1 tab 03/01/18 10:00 03/02/18 10:22 Tab-A-Vit - PO 1 tab DAILY [facility] Administration Oxycodone HCl 5 mg 03/01/18 00:32 03/01/18 10:38 Roxicodone - PO 5 mg Q12H PRN Administration PAIN LEVEL 6-10 Pantoprazole Sodium 40 mg 03/01/18 10:00 03/02/18 10:22 Protonix - PO 40 mg DAILY [facility] Administration Senna 1 tab 03/01/18 22:00 03/01/18 21:04 Senna - PO 1 tab HS [facility] Administration Sertraline HCl 25 mg 03/01/18 22:00 03/01/18 21:04 Zoloft - PO 25 mg HS [facility] Administration Impression 1. ESRD 2. hyperkalemia 3. DM 4. CAD 5. PVD 6. DFU 7. anemia Plan - HD in am - podiatry follow up - vascular follow up - ID input appreciated - Right avF, 3:30, 2 k bath, 450 abf, aranesp 35 mcg received on Monday
--- NOTE | 2018-03-02 16:12 | PN ---
Progress Note, Physician History of Present Illness: C/O foot pain, constipation No c/o fever/ chills Slightly dyspeic at rest Afebrile - Current Medication List Current Medications: Active Medications Acetaminophen (Tylenol -) 650 mg PO Q6H PRN PRN Reason: PAIN Last Admin: 03/01/18 10:38 Dose: 650 mg Acetaminophen (Tylenol -) 325 mg PO Q12H PRN PRN Reason: PAIN LEVEL 6-10 Albuterol/Ipratropium (Duoneb -) 1 amp NEB RTID [facility] Last Admin: 03/02/18 13:50 Dose: 1 amp Aspirin (Asa -) 81 mg PO DAILY [facility] Last Admin: 03/02/18 10:22 Dose: 81 mg Atorvastatin Calcium (Lipitor -) 80 mg PO HS [facility] Last Admin: 03/01/18 21:04 Dose: 80 mg Calcium Acetate (Phoslo -) 667 mg PO TIDCM [facility] Last Admin: 03/02/18 14:18 Dose: 667 mg Epoetin Parmjit (Epogen -) 4,000 unit IVPUSH ONCE ONE Stop: 03/03/18 16:03 Heparin Sodium (Porcine) (Heparin -) 5,000 unit SQ TID [facility] Last Admin: 03/02/18 14:18 Dose: 5,000 unit Piperacillin Sod/Tazobactam (Sod 2.25 gm/ Dextrose) 50 mls @ 100 mls/hr IVPB Q8H-IV [facility]; Protocol Last Admin: 03/02/18 10:22 Dose: 100 mls/hr Sodium Chloride (Normal Saline -) 250 mls @ 3,000 mls/hr IV PRN PRN PRN Reason: Hypotension during Dialysis Stop: 03/03/18 16:02 Insulin Aspart (Novolog Vial Sliding Scale -) 0 vial SQ ACHS [facility]; Protocol Last Admin: 03/02/18 12:24 Dose: Not Given Levothyroxine Sodium (Synthroid -) 25 mcg PO DAILY@0700 [facility] Last Admin: 03/02/18 06:03 Dose: 25 mcg Lisinopril (Prinivil) 10 mg PO DAILY [facility] Last Admin: 03/02/18 10:22 Dose: 10 mg Metoprolol Succinate (Toprol Xl -) 100 mg PO DAILY [facility] Last Admin: 03/02/18 10:22 Dose: 100 mg Multivitamins/Minerals/Vitamin C (Tab-A-Vit -) 1 tab PO DAILY [facility] Last Admin: 03/02/18 10:22 Dose: 1 tab Oxycodone HCl (Roxicodone -) 5 mg PO Q12H PRN PRN Reason: PAIN LEVEL 6-10 Last Admin: 03/01/18 10:38 Dose: 5 mg Pantoprazole Sodium (Protonix -) 40 mg PO DAILY [facility] Last Admin: 03/02/18 10:22 Dose: 40 mg Senna (Senna -) 1 tab PO HS [facility] Last Admin: 03/01/18 21:04 Dose: 1 tab Sertraline HCl (Zoloft -) 25 mg PO HS [facility] Last Admin: 03/01/18 21:04 Dose: 25 mg - Objective Vital Signs: Vital Signs Temperature 97.4 F L 03/02/18 14:30 Pulse Rate 81 03/02/18 14:30 Respiratory Rate 20 03/02/18 14:30 Blood Pressure 154/68 03/02/18 14:30 O2 Sat by Pulse Oximetry (%) 100 03/02/18 09:00 Constitutional: Yes: No Distress Eyes: Yes: Conjunctiva Clear Cardiovascular: Yes: Regular Rate and Rhythm, S1, S2 Respiratory: Yes: Diminished Gastrointestinal: Yes: Normal Bowel Sounds, Soft. No: Tenderness Extremities: Yes: Other (+ dry gangrene great toe. Foot swollen, cool to touch. Toes hyperemic) Labs: CBC, BMP 03/01/18 05:47 03/01/18 05:47 INR, PTT INR 1.21 (0.82-1.09) H 02/28/18 21:10 Assessment/Plan Gangrene , great toe ESRD Continue zosyn Redose vancomycin Discussed with surgery
[2018-03-02] MEDS ORDERED: VANCOMYCIN 1,000 MG in DEXTROSE 5%-WATER - 250 ML IVPB ONE (16:30)
[2018-03-02] MEDS ORDERED: POLYETHYLENE GLYCOL 3350 119 GM BTL PO ONE (16:30)
--- NOTE | 2018-03-02 16:46 | PN ---
Progress Note (short form) - Note Progress Note: [facility] Pt well known from vascular clinic. Recent US showed greater than 75% stenosis of left distal sFA. Will need angiogram when pt is medically stable. Please clear from a medical and cardiology standpoint. Pulmonary on the case. Will be on stand by Robel oliver DO
[2018-03-02] MEDS: oxyCODONE HCL 5 MG TABLET PO PRN (18:51)
--- NOTE | 2018-03-02 21:57 | CONS ---
PULMONARY CONSULTATION DATE OF CONSULTATION: 03/02/2018 REFERRING PHYSICIAN: Moshe Nur MD The patient is a 72-year-old male with past medical history of end-stage renal disease on hemodialysis; congestive heart failure; ASHD status post stent; status post permanent pacemaker; history of right hip fracture; hypertension; diabetes; history of tobacco use, approximately 1 pack per day for approximately 45-50 years, quit 12 years ago; alf resident, transferred to [facility] secondary to necrotic changes of the left great toe and increasing numbness. Patient apparently sustained a laceration to his left great toe approximately a month ago. Apparently, since that time, it has become progressively more swollen and erythematous. He presented to the emergency room with the above. In the ER, he was empirically treated with vancomycin, Zosyn, and clindamycin and transferred to the medical floor for further management. Of note is the patient also has been complaining of increasing shortness of breath, and he states that he gets markedly dyspneic with any type of exertion, even just bending down. He has an occasional cough which is nonproductive. He denies any hemoptysis. He denies any chest pains or palpitations. Denies any fevers or chills. He denies any history of occupational exposure to chemicals or fumes. There is no history of DVT or PE in the past. PAST MEDICAL HISTORY: Again includes end-stage renal disease on hemodialysis, hypertension, diabetes, ASHD status post CABG, status post permanent pacemaker, atrial fibrillation, history of depression, hypothyroidism, and congestive heart failure. SOCIAL HISTORY: Again, born in [place], moved to the [facility] many years ago. 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 History of tobacco use, 1 pack a day for greater than 45-50 years, quite 12 years ago. REVIEW OF SYSTEMS: Positive orthopnea. Positive dyspnea with exertion. No dyspnea at rest. No chest pain. No palpitations. Positive cough. No abdominal pain. CURRENT MEDICATIONS: Include Tylenol, Prinivil, Zosyn, heparin, Zoloft, DuoNeb, Toprol, senna, Lipitor, NovoLog, vitamin C, aspirin, Roxicodone, , and Synthroid. PHYSICAL EXAMINATION: General: The patient is a well-developed, thin white male, awake, alert, in no acute respiratory distress, sitting out of bed, in chair. Vital Signs: He is currently afebrile. Blood pressure 154/68. Respiratory rate is 20. O2 saturation is 100% on 2 L. HEENT: Normocephalic, atraumatic. Neck: Supple. Heart: Regular. S1, S2. Chest: Diminished breath sounds at the left base and a few scattered wheezes anteriorly. Abdomen: Soft. Bowel sounds are positive. Extremities: The left toe is bandaged. Left foot is bandaged. LABORATORY DATA: WBC is 7.1, hemoglobin 9.2, hematocrit 28.4, with platelet count of 207,000. INR is 1.21. Chemistries: Potassium 5.5. BUN 40, creatinine 5.1. Echocardiogram: Echo reveals normal ventricular size, severe LV systolic function, severe global hypokinesis of the left ventricle. No hemodynamic aortic stenosis. Right ventricular systolic pressure is within normal limits. There is a pacemaker in the right atrium. Chest x-ray: Cardiomegaly, [id number] pulmonary vascular congestion, and this was on February 28; moderate-size left pleural effusion. IMPRESSION: 1. Dyspnea, most likely secondary to mild congestive heart failure, fluid overload. 2. Severe left ventricular systolic dysfunction. 3. Possible underlying chronic obstructive pulmonary disease secondary to longstanding history of tobacco use. 4. Left pleural effusion. 5. Diabetes. 6. Hypertension. 7. Atherosclerotic heart disease status post coronary bypass grafts. SUGGEST: Hemodialysis as per Renal, cardiology evaluation, inhaled bronchodilators, supplemental O2, consider diagnostic thoracentesis, antibiotic therapy as per Infectious Disease, cardiology consultation. JASE GAMINO M.D. [id number]
[2018-03-02] MEDS: SENNOSIDES 8.6MG TABLET (FP) PO SCH (22:23)
[2018-03-02] MEDS: SERTRALINE HCL 25 MG TABLET (FP) PO SCH (22:23)
[2018-03-02] MEDS: ATORVASTATIN CA 80 MG TABLET (FP) PO SCH (22:23)
[2018-03-02] MEDS: ACETAMINOPHEN 325 MG TABLET (FP) PO PRN (22:28)
[2018-03-03] MEDS ORDERED: DEXTROSE 5%-WATER - 50 ML IVPB ONE ×3 (02:31→20:31)
[2018-03-03] MEDS ORDERED: PIPERACILLIN/TAZOBACTAM 2.25 GM VIAL IVPB ONE ×3 (02:31→20:31)
[2018-03-03] MEDS: PIPERACILLIN/TAZOB 2.25 GM 2.25 GM in DEXTROSE 5%-WATER - 50 ML IVPB SCH ×3 (03:00→21:42)
[2018-03-03] MEDS: INSULIN SLIDING SCALE (NOVOLOG) 1 VIAL SQ SCH ×4 (06:13→21:43)
[2018-03-03] MEDS: HEPARIN NA (PORCINE) 5,000 UNITS/ML 1ML VIAL SQ SCH ×3 (06:14→21:41)
[2018-03-03] MEDS: LEVOTHYROXINE NA 25 MCG TABLET (FP) PO SCH (06:14)
[2018-03-03] MEDS: CALCIUM ACETATE 667 MG CAPSULE (FP) PO SCH ×2 (08:04→15:00)
[2018-03-03] MEDS: ALBUTEROL SO4 2.5/IPRATROPIUM 0.5 INH SOL 3 ML VIAL.NEB. NEB SCH ×3 (08:45→20:56)
[2018-03-03] MEDS: ACETAMINOPHEN 325 MG TABLET (FP) PO PRN ×2 (09:03→16:30)
--- NOTE | 2018-03-03 10:24 | PN ---
Progress Note (short form) - Note Progress Note: PULMONARY States breathing slightly improved today. Less cough. No fevers or chills. Last Vital Signs Temp Pulse Resp BP Pulse Ox 98.0 F 80 18 160/67 96 03/03/18 05:37 03/03/18 05:37 03/03/18 05:37 03/03/18 05:37 03/02/18 21:00 Gen: NAD at rest Heart: RRR Lung: scattered rhonchi Abd: soft, nontender Ext: no edema CBC, BMP 03/01/18 05:47 03/01/18 05:47 Active Medications Acetaminophen (Tylenol -) 650 mg PO Q6H PRN PRN Reason: PAIN Last Admin: 03/03/18 09:03 Dose: 650 mg Acetaminophen (Tylenol -) 325 mg PO Q12H PRN PRN Reason: PAIN LEVEL 6-10 Last Admin: 03/02/18 18:48 Dose: 325 mg Albuterol/Ipratropium (Duoneb -) 1 amp NEB RTID [facility] Last Admin: 03/03/18 08:45 Dose: 1 amp Aspirin (Asa -) 81 mg PO DAILY [facility] Last Admin: 03/02/18 10:22 Dose: 81 mg Atorvastatin Calcium (Lipitor -) 80 mg PO HS [facility] Last Admin: 03/02/18 22:23 Dose: 80 mg Calcium Acetate (Phoslo -) 667 mg PO TIDCM [facility] Last Admin: 03/03/18 08:04 Dose: 667 mg Epoetin Parmjit (Epogen -) 4,000 unit IVPUSH ONCE ONE Stop: 03/03/18 16:03 Heparin Sodium (Porcine) (Heparin -) 5,000 unit SQ TID [facility] Last Admin: 03/03/18 06:14 Dose: 5,000 unit Piperacillin Sod/Tazobactam (Sod 2.25 gm/ Dextrose) 50 mls @ 100 mls/hr IVPB Q8H-IV [facility]; Protocol Last Admin: 03/03/18 03:00 Dose: 100 mls/hr Sodium Chloride (Normal Saline -) 250 mls @ 3,000 mls/hr IV PRN PRN PRN Reason: Hypotension during Dialysis Stop: 03/03/18 16:02 Insulin Aspart (Novolog Vial Sliding Scale -) 0 vial SQ ACHS [facility]; Protocol Last Admin: 03/03/18 06:13 Dose: Not Given Levothyroxine Sodium (Synthroid -) 25 mcg PO DAILY@0700 [facility] Last Admin: 03/03/18 06:14 Dose: 25 mcg Lisinopril (Prinivil) 10 mg PO DAILY [facility] Last Admin: 03/02/18 10:22 Dose: 10 mg Metoprolol Succinate (Toprol Xl -) 100 mg PO DAILY [facility] Last Admin: 03/02/18 10:22 Dose: 100 mg Multivitamins/Minerals/Vitamin C (Tab-A-Vit -) 1 tab PO DAILY [facility] Last Admin: 03/02/18 10:22 Dose: 1 tab Oxycodone HCl (Roxicodone -) 5 mg PO Q12H PRN PRN Reason: PAIN LEVEL 6-10 Last Admin: 03/02/18 18:51 Dose: 5 mg Pantoprazole Sodium (Protonix -) 40 mg PO DAILY [facility] Last Admin: 03/02/18 10:22 Dose: 40 mg Senna (Senna -) 1 tab PO HS [facility] Last Admin: 03/02/18 22:23 Dose: 1 tab Sertraline HCl (Zoloft -) 25 mg PO HS [facility] Last Admin: 03/02/18 22:23 Dose: 25 mg A/P Acute on Chronic Systolic Heart Failure ESRD on HD Left Pleural Effusion COPD CAD s/p CABG HTN DM Left toe gangrene - antibiotics per ID - continue HD with ultrafiltration - inhaled bronchodilators - o2 to keep Spo2 >90% - repeat CXR in AM - DVT prophylaxis
[2018-03-03] MEDS ORDERED: EPOETIN ALFA 2,000 UNIT/1 ML VIAL IVPUSH ONE (10:45)
[2018-03-03 10:53] LABS: HEMOGLOBIN 8.8 GM/dL (11.7-16.9); MCH 28.7 pg (25.7-33.7); MCHC 32.4 g/dl (32.0-35.9); MEAN CELL VOLUME 88.7 fl (80-96); MEAN PLT VOLUME 8.8 fl (7.5-11.1); PLATELET COUNT 190 K/MM3 (134-434); RBC 3.05 M/mm3 (4.00-5.60); RDW 17.6 % (11.9-15.9); WHITE BLOOD COUNT 8.2 K/mm3 (4.0-10.0)
[2018-03-03 11:46] LABS: ALBUMIN 2.9 g/dl (3.4-5.0); ALK PHOS 113 U/L (45-117); ANION GAP 9 (8-16); BILIRUBIN,TOTAL 0.6 mg/dL (0.2-1.0); BLOOD UREA NITROGEN 24 mg/dL (7-18); CHLORIDE 99 mmol/L (98-107); CO2 31 mmol/L (21-32); CREATININE 4.8 mg/dL (0.7-1.3); GLUCOSE,RANDOM 184 mg/dL (74-106); POTASSIUM 4.5 mmol/L (3.5-5.1); SGOT/AST 22 U/L (15-37); SGPT/ALT 16 U/L (12-78); SODIUM 139 mmol/L (136-145); TOT PROT 6.2 g/dl (6.4-8.2)
--- NOTE | 2018-03-03 12:16 | PN ---
Progress Note (short form) - Note Progress Note: Chief Complaint: Events noted, noted reviewed. Reports dyspnea and orthopnea, denies any chest pain History of Present Illness: Seen and examined in HD unit receiving HD. Full consult dictated - Current Medication List Current Medications Acetaminophen (Tylenol -) 650 mg PO Q6H PRN PRN Reason: PAIN Last Admin: 03/03/18 09:03 Dose: 650 mg Acetaminophen (Tylenol -) 325 mg PO Q12H PRN PRN Reason: PAIN LEVEL 6-10 Last Admin: 03/02/18 18:48 Dose: 325 mg Albuterol/Ipratropium (Duoneb -) 1 amp NEB RTID [facility] Last Admin: 03/03/18 08:45 Dose: 1 amp Aspirin (Asa -) 81 mg PO DAILY [facility] Last Admin: 03/02/18 10:22 Dose: 81 mg Atorvastatin Calcium (Lipitor -) 80 mg PO HS [facility] Last Admin: 03/02/18 22:23 Dose: 80 mg Calcium Acetate (Phoslo -) 667 mg PO TIDCM [facility] Last Admin: 03/03/18 08:04 Dose: 667 mg Heparin Sodium (Porcine) (Heparin -) 5,000 unit SQ TID [facility] Last Admin: 03/03/18 06:14 Dose: 5,000 unit Piperacillin Sod/Tazobactam (Sod 2.25 gm/ Dextrose) 50 mls @ 100 mls/hr IVPB Q8H-IV [facility]; Protocol Last Admin: 03/03/18 03:00 Dose: 100 mls/hr Insulin Aspart (Novolog Vial Sliding Scale -) 0 vial SQ ACHS [facility]; Protocol Last Admin: 03/03/18 06:13 Dose: Not Given Levothyroxine Sodium (Synthroid -) 25 mcg PO DAILY@0700 [facility] Last Admin: 03/03/18 06:14 Dose: 25 mcg Lisinopril (Prinivil) 10 mg PO DAILY [facility] Last Admin: 03/02/18 10:22 Dose: 10 mg Metoprolol Succinate (Toprol Xl -) 100 mg PO DAILY [facility] Last Admin: 03/02/18 10:22 Dose: 100 mg Multivitamins/Minerals/Vitamin C (Tab-A-Vit -) 1 tab PO DAILY [facility] Last Admin: 03/02/18 10:22 Dose: 1 tab Oxycodone HCl (Roxicodone -) 5 mg PO Q12H PRN PRN Reason: PAIN LEVEL 6-10 Last Admin: 03/02/18 18:51 Dose: 5 mg Pantoprazole Sodium (Protonix -) 40 mg PO DAILY [facility] Last Admin: 03/02/18 10:22 Dose: 40 mg Senna (Senna -) 1 tab [address] [facility] Last Admin: 03/02/18 22:23 Dose: 1 tab Sertraline HCl (Zoloft -) 25 [address] [facility] Last Admin: 03/02/18 22:23 Dose: 25 mg - Review of Systems Constitutional: denies: Chills, Fever Cardiovascular: As noted above Respiratory: denies: Cough Or Sputum Production Gastrointestinal: denies: Nausea, Vomiting, Diarrhea, Constipation or Abdominal Pain Genitourinary: HD Neurological: denies: Dizziness or Headaches Endocrine: denies: Intolerance to Cold, Intolerance to Heat - Objective Vital Signs: Last Vital Signs Temp Pulse Resp BP Pulse Ox 98.0 F 80 18 156/70 96 03/03/18 05:37 03/03/18 11:50 03/03/18 11:50 03/03/18 11:50 03/02/18 21:00 Intake & Output 02/28/18 03/01/18 03/02/18 03/03/18 23:59 23:59 23:59 23:59 Intake Total 200 350 50 Balance 200 350 50 Weight 154 lb 6.4 oz 163 lb 163 lb 3.2 oz 164 lb 2 oz Constitutional: No Distress, Calm, Thin Neck: Supple Negative JVD Respiratory: diminished Breath Sounds at the Bases Bilaterally L>R Cardiovascular: S1 S2 Regular Rate and Rhythm Grade 1/6 systolic murmur Gastrointestinal: Soft Benign Normal Bowel Sounds Ext: Trace Edema Labs: CBC, BMP 03/03/18 10:20 03/03/18 10:20 Hepatic Panel Total Bilirubin 0.6 mg/dL (0.2-1.0) 03/03/18 10:20 AST 22 U/L (15-37) 03/03/18 10:20 ALT 16 U/L (12-78) 03/03/18 10:20 Alkaline Phosphatase 113 U/L (45-117) 03/03/18 10:20 Albumin 2.9 g/dl (3.4-5.0) L 05/26/18 10:20 INR, PTT INR 1.21 (0.82-1.09) H 02/28/18 21:10 Assessment/Plan ASSESSMENT: 1. Clinical presentation is consistent with acute on chronic class I-II NYHA classification LV failure related to ischemic dilated cardiomyopathy/severe LV systolic dysfunction 2. CAD post remote NC post CABG angina pectoris 3. Post prophylactic ICD implant (unknown device type) 4. HTN 5. IDDM 6. Hypercholesterolemia 7. PAD with toe gangrene for peripheral intervention 8. ESRD on HD 9. Anemia PLAN: 1. Continue Toprol XL 2. Continue Lisinopril 3. Continue ASA +/- Plavix, held for possible surgery but ideally if vascular intervention is planned therapy to be resumed 4. Continue Lipitor 5. Consider additional ultra-filtration during HD to mobilize additional fluid and if pleural effusion persists consideration for therapeutic thoracentesis, to be discussed with nephrology service 6. 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
--- NOTE | 2018-03-03 13:24 | CONS ---
DATE OF CONSULTATION: 03/03/2018 REQUESTING PHYSICIAN: Moshe Nur MD CHIEF COMPLAINT: Dyspnea, cardiovascular evaluation. History was obtained from the patient. He is a poor historian. A 72-year-old male of descent with known history of coronary artery disease status post remote myocardial infarction, status post coronary artery bypass grafting; systolic left ventricular dysfunction with chronic class 1-2 [employer] classification left ventricular failure; post prophylactic ICD implantation, unknown device type; hypertensive cardiovascular disease; diabetes mellitus; hypercholesterolemia; peripheral vascular disease with toe gangrene; end-stage renal disease on hemodialysis; resident of an extended care facility, who was admitted to [facility] with an accidental fall, and he was complaining of increasing dyspnea. Dyspnea has been noted with minimal physical activity. Patient reported orthopnea but denied paroxysmal nocturnal dyspnea. Patient denies any chest discomfort. Patient reports intermittent bilateral lower extremity edema that worsens in the latter part of the day. Patient denies any palpitations, dizziness, lightheadedness, or syncope. Patient reports fatigue and tiredness. Upon evaluation, patient has been noted to be in congestive heart failure with pleural effusion. Currently is in the hemodialysis unit, receiving hemodialysis. PAST MEDICAL HISTORY: Coronary artery disease post remote myocardial infarction, post coronary artery bypass grafting; angina pectoris; systolic left ventricular dysfunction with class 1-2 [employer] Heart [employer] classification left ventricular failure; ischemic dilated cardiomyopathy; post prophylactic ICD implantation; hypertensive cardiovascular disease; diabetes mellitus; hypercholesterolemia; peripheral vascular disease with toe gangrene; end-stage renal disease on hemodialysis; chronic anemia; multiple surgeries for AV graft. SOCIAL HISTORY: Denies tobacco abuse. FAMILY HISTORY: No family history of coronary artery disease. ALLERGIES: No known medical allergies. MEDICAL THERAPY: Currently includes Tylenol 650 mg every 6 hours as needed, Tylenol 325 mg every 12 hours as needed, DuoNeb nebulizer, aspirin 81 mg once a day, Lipitor 80 mg once a day, PhosLo 667 mg 3 times a day, subcutaneous heparin 5000 units 3 times a day, piperacillin/tazobactam 2.25 g every 8 hours, insulin as prescribed, Synthroid 25 mcg once a day, lisinopril 10 mg once a day, Toprol-XL 100 mg once a day, multivitamin 1 tablet once a day, Roxicodone 5 mg every 12 hours as needed, Protonix 40 mg once a day, senna 1 tablet once a day, Zoloft 25 mg once daily. REVIEW OF SYSTEMS: Head and Neck: Denies headache, photophobia, blurring of vision. Respiratory: No cough or sputum production. Cardiovascular: As noted above. Gastrointestinal: Denies nausea, vomiting, diarrhea, abdominal discomfort. Genitourinary: On hemodialysis. Musculoskeletal: History of degenerative joint disease. PHYSICAL EXAMINATION: Vital Signs: Blood pressure is 156/70 mmHg, pulse rate is 80 beats per minute, temperature 98 degrees Fahrenheit. Head and Neck: Pupils equal and reactive to light and accommodation. Extraocular muscles are intact. Anicteric sclerae. Negative JVD. No bruit appreciated. Chest: Diminished breath sounds at the bases bilaterally, left greater than the right. Cardiovascular: S1 and S2 regular. A grade 1/6 systolic apical murmur. Abdomen: Soft, benign. Normoactive bowel sounds. Extremities: Trace edema. Chest x-ray report was noted. Echocardiography performed March 01, 2018, revealed normal left ventricular size with severely impaired LV systolic function with severe global hypokinesis, normal RV systolic function, trace mitral valve regurgitation, mild tricuspid valve regurgitation, pleural effusion. EKG not available. CBC revealed a white cell count of 8.2, hemoglobin 8.8, platelet count 190. INR 1.21. Basic metabolic profile revealed a sodium 139, potassium 4.5, BUN 24, creatinine 4.8, glucose 184. ASSESSMENT: 1. Clinical presentation is consistent with [id number] class 1-2 [employer] Heart Association classification left ventricular failure related to ischemic dilated cardiomyopathy, severe left ventricular systolic dysfunction. 2. Coronary artery disease post remote myocardial infarction, post coronary artery bypass grafting, angina pectoris. 3. Post prophylactic implantable cardioverter-defibrillator implant, unknown device type. 4. Hypertensive cardiovascular disease. 5. Insulin-dependent diabetes mellitus. 6. Hypercholesterolemia. 7. Peripheral vascular disease with toe gangrene for peripheral intervention. 8. End-stage renal disease on hemodialysis. 9. Anemia. RECOMMENDATION: 1. Continuation of Toprol-XL therapy. 2. Continuation of lisinopril therapy. 3. Continuation of aspirin plus/minus Plavix which was held for possible surgery, but ideally, a vascular intervention is planned. Therapy to be resumed. 4. Continue Lipitor. 5. Consider additional ultrafiltration during hemodialysis session to mobilize additional fluid, and if pleural effusion persists, consideration for therapeutic thoracentesis to be discussed with nephrology service. 6. Device interrogation. Additional information to be obtained from [facility]. 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 Thank you for your kind referral. SAMANTHA SNELL M.D. [id number]
--- NOTE | 2018-03-03 13:44 | PN ---
Progress Note (short form) - Note Progress Note: pt seen in dialysis family at bedside feels well. no complains all f/u noted/ appreciated Vital Signs Temp 98.0 F 03/03/18 05:37 Pulse 81 03/03/18 12:50 Resp 18 03/03/18 12:50 BP 125/62 03/03/18 12:50 Pulse Ox 96 03/02/18 21:00 Intake & Output 03/02/18 03/03/18 03/03/18 23:59 11:59 23:59 Intake Total 300 50 Balance 300 50 Weight 164 lb 2 oz Intake: IVPB 200 50 Oral 100 Other: Voiding Method Urinal Urinal Bowel Movement No Weight Measurement Method Standing Scale Active Medications Acetaminophen (Tylenol -) 650 mg PO Q6H PRN PRN Reason: PAIN Last Admin: 03/03/18 09:03 Dose: 650 mg Acetaminophen (Tylenol -) 325 mg PO Q12H PRN PRN Reason: PAIN LEVEL 6-10 Last Admin: 03/02/18 18:48 Dose: 325 mg Albuterol/Ipratropium (Duoneb -) 1 amp NEB RTID [facility] Last Admin: 03/03/18 08:45 Dose: 1 amp Aspirin (Asa -) 81 mg PO DAILY [facility] Last Admin: 03/02/18 10:22 Dose: 81 mg Atorvastatin Calcium (Lipitor -) 80 mg PO HS [facility] Last Admin: 03/02/18 22:23 Dose: 80 mg Calcium Acetate (Phoslo -) 667 mg PO TIDCM [facility] Last Admin: 03/03/18 08:04 Dose: 667 mg Heparin Sodium (Porcine) (Heparin -) 5,000 unit SQ TID [facility] Last Admin: 03/03/18 06:14 Dose: 5,000 unit Piperacillin Sod/Tazobactam (Sod 2.25 gm/ Dextrose) 50 mls @ 100 mls/hr IVPB Q8H-IV [facility]; Protocol Last Admin: 03/03/18 03:00 Dose: 100 mls/hr Insulin Aspart (Novolog Vial Sliding Scale -) 0 vial SQ ACHS [facility]; Protocol Last Admin: 03/03/18 06:13 Dose: Not Given Levothyroxine Sodium (Synthroid -) 25 mcg PO DAILY@0700 [facility] Last Admin: 03/03/18 06:14 Dose: 25 mcg Lisinopril (Prinivil) 10 mg PO DAILY [facility] Last Admin: 03/02/18 10:22 Dose: 10 mg Metoprolol Succinate (Toprol Xl -) 100 mg PO DAILY [facility] Last Admin: 03/02/18 10:22 Dose: 100 mg Multivitamins/Minerals/Vitamin C (Tab-A-Vit -) 1 tab PO DAILY [facility] Last Admin: 03/02/18 10:22 Dose: 1 tab Oxycodone HCl (Roxicodone -) 5 mg PO Q12H PRN PRN Reason: PAIN LEVEL 6-10 Last Admin: 03/02/18 18:51 Dose: 5 mg Pantoprazole Sodium (Protonix -) 40 mg PO DAILY [facility] Last Admin: 03/02/18 10:22 Dose: 40 mg Senna (Senna -) [address] [facility] Last Admin: 03/02/18 22:23 Dose: 1 tab Sertraline HCl (Zoloft -) 25 mg PO HS [facility] Last Admin: 03/02/18 22:23 Dose: 25 mg CBC, BMP 03/03/18 10:20 03/03/18 10:20 Microbiology 02/28/18 21:10 Blood Culture - Preliminary Blood - Peripheral Venous NO GROWTH OBTAINED AFTER 48 HOURS, INCUBATION TO CONTINUE FOR 3 DAYS. 02/28/18 21:10 Blood Culture - Preliminary Blood - Peripheral Venous NO GROWTH OBTAINED AFTER 48 HOURS, INCUBATION TO CONTINUE FOR 3 DAYS. Physical Exam Constitutional: Yes: Calm, comfortable Eyes: Yes: Conjunctiva Clear HENT: Yes: wnl Neck: Yes: Supple, no jvd Cardiovascular: Yes: S1, S2 rrr Respiratory: Yes: Diminished at bases Gastrointestinal: Yes: Soft/ non tender Musculoskeletal: Yes: Other (left toe erythema and swelling) Edema: LLE: 1+, RLE: 1+ Neurological: Yes: alert and awake Psychiatric: Yes: Oriented Imaging - Results Chest X-ray: Report Reviewed Assessment/Plan 1. ESRD 3. DM 4. CAD 5. PVD 6. Anemia 7. Pleural Effusion 8. Ischemic toes HD per renal continue present care cardiology and pulmonary eval noted Discussed with nursing staff also will follow
[2018-03-03] MEDS: ASPIRIN 81 MG CHEWABLE TABLETS PO SCH (15:00)
[2018-03-03] MEDS: PANTOPRAZOLE 40 MG TABLET (FP) PO SCH (15:00)
[2018-03-03] MEDS: LISINOPRIL 10 MG TABLET (FP) PO SCH (15:00)
[2018-03-03] MEDS: MULTIVITAMINS (DAILY MVI) TABLET (FP) PO SCH (15:00)
[2018-03-03 15:08] LABS: CREATININE 1.6 mg/dL (0.7-1.3)
--- NOTE | 2018-03-03 17:22 | PN ---
Progress Note (short form) - Note Progress Note: covering Problems 1. ESRD 2. hyperkalemia 3. DM 4. CAD 5. PVD 6. DFU 7. anemia Current Medications Acetaminophen (Tylenol -) 650 mg PO Q6H PRN PRN Reason: PAIN Last Admin: 03/03/18 09:03 Dose: 650 mg Acetaminophen (Tylenol -) 325 mg PO Q12H PRN PRN Reason: PAIN LEVEL 6-10 Last Admin: 03/02/18 18:48 Dose: 325 mg Albuterol/Ipratropium (Duoneb -) 1 amp NEB RTID [facility] Last Admin: 03/03/18 14:37 Dose: Not Given Aspirin (Asa -) 81 mg PO DAILY [facility] Last Admin: 03/03/18 15:00 Dose: 81 mg Atorvastatin Calcium (Lipitor -) 80 mg PO HS [facility] Last Admin: 03/02/18 22:23 Dose: 80 mg Calcium Acetate (Phoslo -) 667 mg PO TIDCM [facility] Last Admin: 03/03/18 15:00 Dose: 667 mg Heparin Sodium (Porcine) (Heparin -) 5,000 unit SQ TID [facility] Last Admin: 03/03/18 15:00 Dose: 5,000 unit Piperacillin Sod/Tazobactam (Sod 2.25 gm/ Dextrose) 50 mls @ 100 mls/hr IVPB Q8H-IV [facility]; Protocol Last Admin: 03/03/18 15:00 Dose: 100 mls/hr Insulin Aspart (Novolog Vial Sliding Scale -) 0 vial SQ ACHS [facility]; Protocol Last Admin: 03/03/18 16:33 Dose: 4 units Levothyroxine Sodium (Synthroid -) 25 mcg PO DAILY@0700 [facility] Last Admin: 03/03/18 06:14 Dose: 25 mcg Lisinopril (Prinivil) 10 mg PO DAILY [facility] Last Admin: 03/03/18 15:00 Dose: 10 mg Metoprolol Succinate (Toprol Xl -) 100 mg PO DAILY [facility] Last Admin: 03/03/18 15:00 Dose: 100 mg Multivitamins/Minerals/Vitamin C (Tab-A-Vit -) 1 tab PO DAILY [facility] Last Admin: 03/03/18 15:00 Dose: 1 tab Oxycodone HCl (Roxicodone -) 5 mg PO Q12H PRN PRN Reason: PAIN LEVEL 6-10 Last Admin: 03/02/18 18:51 Dose: 5 mg Pantoprazole Sodium (Protonix -) 40 mg PO DAILY [facility] Last Admin: 03/03/18 15:00 Dose: 40 mg Senna (Senna -) 1 tab PO [facility] Last Admin: 03/02/18 22:23 Dose: 1 tab Sertraline HCl (Zoloft -) 25 mg PO [facility] Last Admin: 03/02/18 22:23 Dose: 25 mg Last Vital Signs Temp Pulse Resp BP Pulse Ox 98.3 F 80 18 150/68 96 03/03/18 15:11 03/03/18 15:11 03/03/18 15:11 03/03/18 15:11 03/02/18 21:00 lungs clear heart reg abd soft nontender ext no edema IMP ESRD stable on dialysis Plan- hd next week
[2018-03-03] MEDS: SERTRALINE HCL 25 MG TABLET (FP) PO SCH (21:41)
[2018-03-03] MEDS: ATORVASTATIN CA 80 MG TABLET (FP) PO SCH (21:42)
[2018-03-03] MEDS: SENNOSIDES 8.6MG TABLET (FP) PO SCH (21:42)
[2018-03-04] MEDS ORDERED: PIPERACILLIN/TAZOBACTAM 2.25 GM VIAL IVPB ONE ×3 (02:02→17:49)
[2018-03-04] MEDS ORDERED: DEXTROSE 5%-WATER - 50 ML IVPB ONE ×3 (02:02→17:49)
[2018-03-04] MEDS: PIPERACILLIN/TAZOB 2.25 GM 2.25 GM in DEXTROSE 5%-WATER - 50 ML IVPB SCH ×3 (03:06→17:55)
[2018-03-04] MEDS ORDERED: ALBUTEROL SO4 2.5/IPRATROPIUM 0.5 INH SOL 3 ML VIAL.NEB. NEB ONE ×2 (03:15→21:21)
[2018-03-04] MEDS: INSULIN SLIDING SCALE (NOVOLOG) 1 VIAL SQ SCH ×4 (06:19→22:32)
[2018-03-04] MEDS: HEPARIN NA (PORCINE) 5,000 UNITS/ML 1ML VIAL SQ SCH ×3 (06:20→22:30)
[2018-03-04] MEDS: LEVOTHYROXINE NA 25 MCG TABLET (FP) PO SCH (06:20)
[2018-03-04 06:37] LABS: HBSAG SCREEN Negative (Negative); HEP A AB, IGM Negative (Negative); HEP B CORE AB, TOT Negative (Negative)
[2018-03-04] MEDS: ALBUTEROL SO4 2.5/IPRATROPIUM 0.5 INH SOL 3 ML VIAL.NEB. NEB SCH ×3 (08:10→19:30)
[2018-03-04] MEDS: CALCIUM ACETATE 667 MG CAPSULE (FP) PO SCH ×4 (08:10→17:35)
[2018-03-04] MEDS: ASPIRIN 81 MG CHEWABLE TABLETS PO SCH (10:30)
[2018-03-04] MEDS: LISINOPRIL 10 MG TABLET (FP) PO SCH (10:30)
[2018-03-04] MEDS: PANTOPRAZOLE 40 MG TABLET (FP) PO SCH (10:30)
[2018-03-04] MEDS: MULTIVITAMINS (DAILY MVI) TABLET (FP) PO SCH (10:32)
--- NOTE | 2018-03-04 10:35 | PN ---
Progress Note (short form) - Note Progress Note: Chief Complaint: Events noted, noted reviewed. Dyspnea persists but improved, denies any chest pain History of Present Illness: Seen and examined. Events noted, noted reviewed. Dyspnea persists but improved, denies any chest pain - Current Medication List Current Medications Acetaminophen (Tylenol -) 650 mg PO Q6H PRN PRN Reason: PAIN Last Admin: 03/03/18 16:30 Dose: 650 mg Acetaminophen (Tylenol -) 325 mg PO Q12H PRN PRN Reason: PAIN LEVEL 6-10 Last Admin: 03/02/18 18:48 Dose: 325 mg Albuterol/Ipratropium (Duoneb -) 1 amp NEB RTID [facility] Last Admin: 03/04/18 08:10 Dose: 1 amp Aspirin (Asa -) 81 mg PO DAILY [facility] Last Admin: 03/03/18 15:00 Dose: 81 mg Atorvastatin Calcium (Lipitor -) 80 mg PO HS [facility] Last Admin: 03/03/18 21:42 Dose: 80 mg Calcium Acetate (Phoslo -) 667 mg PO TIDCM [facility] Last Admin: 03/03/18 15:00 Dose: 667 mg Heparin Sodium (Porcine) (Heparin -) 5,000 unit SQ TID [facility] Last Admin: 03/04/18 06:20 Dose: 5,000 unit Piperacillin Sod/Tazobactam (Sod 2.25 gm/ Dextrose) 50 mls @ 100 mls/hr IVPB Q8H-IV [facility]; Protocol Last Admin: 03/04/18 03:06 Dose: 100 mls/hr Insulin Aspart (Novolog Vial Sliding Scale -) 0 vial SQ ACHS [facility]; Protocol Last Admin: 03/04/18 06:19 Dose: Not Given Levothyroxine Sodium (Synthroid -) 25 mcg PO DAILY@0700 [facility] Last Admin: 03/04/18 06:20 Dose: 25 mcg Lisinopril (Prinivil) 10 mg PO DAILY [facility] Last Admin: 03/03/18 15:00 Dose: 10 mg Metoprolol Succinate (Toprol Xl -) 100 mg PO DAILY [facility] Last Admin: 03/03/18 15:00 Dose: 100 mg Multivitamins/Minerals/Vitamin C (Tab-A-Vit -) 1 tab PO DAILY [facility] Last Admin: 03/03/18 15:00 Dose: 1 tab Pantoprazole Sodium (Protonix -) 40 mg PO DAILY [facility] Last Admin: 03/03/18 15:00 Dose: 40 mg Senna (Senna -) 1 tab PO [facility] Last Admin: 03/03/18 21:42 Dose: 1 tab Sertraline HCl (Zoloft -) 25 mg PO [facility] Last Admin: 03/03/18 21:41 Dose: 25 mg - Review of Systems Constitutional: denies: Chills, Fever Cardiovascular: As noted above Respiratory: denies: Cough Or Sputum Production Gastrointestinal: denies: Nausea, Vomiting, Diarrhea, Constipation or Abdominal Pain Genitourinary: HD Neurological: denies: Dizziness or Headaches Endocrine: denies: Intolerance to Cold, Intolerance to Heat - Objective Vital Signs: Last Vital Signs Temp Pulse Resp BP Pulse Ox 98.1 F 80 20 147/64 99 03/04/18 06:28 03/04/18 06:28 03/04/18 06:28 03/04/18 06:28 03/03/18 21:59 Intake & Output 03/01/18 03/02/18 03/03/18 03/04/18 23:59 23:59 23:59 23:59 Intake Total 200 350 100 120 Output Total 200 Balance 200 350 -100 120 Weight 163 lb 163 lb 3.2 oz 164 lb 2 oz 165 lb Constitutional: No Distress, Calm, Thin Neck: Supple Negative JVD Respiratory: diminished Breath Sounds at the Bases Bilaterally L>R Cardiovascular: S1 S2 Regular Rate and Rhythm Grade 1/6 systolic murmur Gastrointestinal: Soft Benign Normal Bowel Sounds Ext: Trace Edema Labs: CBC, BMP 03/03/18 10:20 03/03/18 14:20 Hepatic Panel Total Bilirubin 0.6 mg/dL (0.2-1.0) 03/03/18 10:20 AST 22 U/L (15-37) 03/03/18 10:20 ALT 16 U/L (12-78) 03/03/18 10:20 Alkaline Phosphatase 113 U/L (45-117) 03/03/18 10:20 Albumin 2.9 g/dl (3.4-5.0) L 03/03/18 10:20 INR, PTT INR 1.21 (0.82-1.09) H 02/28/18 21:10 Assessment/Plan ASSESSMENT: 1. Acute on chronic class I-II NYHA classification LV failure related to ischemic dilated cardiomyopathy/severe LV systolic dysfunction, resolving 2. CAD post remote [place] post CABG angina pectoris, stable 3. Post prophylactic ICD implant (unknown device type), records to be obtained 4. HTN 5. IDDM 6. Hypercholesterolemia 7. PAD with toe gangrene for peripheral intervention 8. ESRD on HD 9. Anemia PLAN: 1. Continue Toprol XL 2. Continue Lisinopril 3. Continue ASA +/- Plavix, Plavix held for possible surgery but ideally if vascular intervention is planned therapy should be resumed 4. Continue Lipitor 5. As outlined consider additional ultra-filtration during HD to mobilize additional fluid and if pleural effusion persists consideration for therapeutic thoracentesis, to be discussed with nephrology service 6. 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
--- NOTE | 2018-03-04 13:42 | PN ---
Progress Note (short form) - Note Progress Note: PULMONARY Dialyzed yesterday. States breathing slightly improved today. Less cough. CXR this AM still with congestion. Last Vital Signs Temp Pulse Resp BP Pulse Ox 98.1 F 80 20 147/64 99 03/04/18 06:28 03/04/18 06:28 03/04/18 06:28 03/04/18 06:28 03/03/18 21:59 Gen: NAD at rest Heart: RRR Lung: scattered rhonchi Abd: soft, nontender Ext: no edema CBC, BMP 03/03/18 10:20 03/03/18 14:20 Active Medications Acetaminophen (Tylenol -) 650 mg PO Q6H PRN PRN Reason: PAIN Last Admin: 03/03/18 16:30 Dose: 650 mg Acetaminophen (Tylenol -) 325 mg PO Q12H PRN PRN Reason: PAIN LEVEL 6-10 Last Admin: 03/02/18 18:48 Dose: 325 mg Albuterol/Ipratropium (Duoneb -) 1 amp NEB RTID [facility] Last Admin: 03/04/18 13:21 Dose: 1 amp Aspirin (Asa -) 81 mg PO DAILY [facility] Last Admin: 03/04/18 10:30 Dose: 81 mg Atorvastatin Calcium (Lipitor -) 80 mg PO HS [facility] Last Admin: 03/03/18 21:42 Dose: 80 mg Calcium Acetate (Phoslo -) 667 mg PO TIDCM [facility] Last Admin: 03/04/18 08:10 Dose: 667 mg Heparin Sodium (Porcine) (Heparin -) 5,000 unit SQ TID [facility] Last Admin: 03/04/18 06:20 Dose: 5,000 unit Piperacillin Sod/Tazobactam (Sod 2.25 gm/ Dextrose) 50 mls @ 100 mls/hr IVPB Q8H-IV [facility]; Protocol Last Admin: 03/04/18 10:36 Dose: 100 mls/hr Insulin Aspart (Novolog Vial Sliding Scale -) 0 vial SQ ACHS [facility]; Protocol Last Admin: 03/04/18 11:44 Dose: 2 units Levothyroxine Sodium (Synthroid -) 25 mcg PO DAILY@0700 [facility] Last Admin: 03/04/18 06:20 Dose: 25 mcg Lisinopril (Prinivil) 10 mg PO DAILY [facility] Last Admin: 03/04/18 10:30 Dose: 10 mg Metoprolol Succinate (Toprol Xl -) 100 mg PO DAILY [facility] Last Admin: 03/04/18 10:32 Dose: 100 mg Multivitamins/Minerals/Vitamin C (Tab-A-Vit -) 1 tab PO DAILY [facility] Last Admin: 03/04/18 10:32 Dose: 1 tab Pantoprazole Sodium (Protonix -) 40 mg PO DAILY [facility] Last Admin: 03/04/18 10:30 Dose: 40 mg Senna (Senna -) 1 tab PO HS [facility] Last Admin: 03/03/18 21:42 Dose: 1 tab Sertraline HCl (Zoloft -) 25 mg PO HS [facility] Last Admin: 03/03/18 21:41 Dose: 25 mg A/P Acute on Chronic Systolic Heart Failure ESRD on HD Left Pleural Effusion COPD CAD s/p CABG HTN DM Left toe gangrene - antibiotics per ID - continue HD with ultrafiltration - inhaled bronchodilators - O2 to keep Spo2 >90% - DVT prophylaxis
--- NOTE | 2018-03-04 13:49 | PN ---
Progress Note (short form) - Note Progress Note: pt comfortable all f/u noted afebrile cxr- still congested denies pain Vital Signs Temp 98.1 F 03/04/18 06:28 Pulse 80 03/04/18 06:28 Resp 20 03/04/18 06:28 BP 147/64 03/04/18 06:28 Pulse Ox 99 03/03/18 21:59 Intake & Output 03/03/18 03/04/18 03/04/18 23:59 11:59 23:59 Intake Total 50 120 Output Total 200 Balance -150 120 Weight 165 lb Intake: IVPB 50 Oral 120 Output: Urine 200 Void 200 Other: Voiding Method Urinal Urinal Weight Measurement Method Chair Scale Active Medications Acetaminophen (Tylenol -) 650 mg PO Q6H PRN PRN Reason: PAIN Last Admin: 03/03/18 16:30 Dose: 650 mg Acetaminophen (Tylenol -) 325 mg PO Q12H PRN PRN Reason: PAIN LEVEL 6-10 Last Admin: 03/02/18 18:48 Dose: 325 mg Albuterol/Ipratropium (Duoneb -) 1 amp NEB RTID [facility] Last Admin: 03/04/18 13:21 Dose: 1 amp Aspirin (Asa -) 81 mg PO DAILY [facility] Last Admin: 03/04/18 10:30 Dose: 81 mg Atorvastatin Calcium (Lipitor -) 80 mg PO HS [facility] Last Admin: 03/03/18 21:42 Dose: 80 mg Calcium Acetate (Phoslo -) 667 mg PO TIDCM [facility] Last Admin: 03/04/18 08:10 Dose: 667 mg Heparin Sodium (Porcine) (Heparin -) 5,000 unit SQ TID [facility] Last Admin: 03/04/18 06:20 Dose: 5,000 unit Piperacillin Sod/Tazobactam (Sod 2.25 gm/ Dextrose) 50 mls @ 100 mls/hr IVPB Q8H-IV [facility]; Protocol Last Admin: 03/04/18 10:36 Dose: 100 mls/hr Insulin Aspart (Novolog Vial Sliding Scale -) 0 vial SQ ACHS [facility]; Protocol Last Admin: 03/04/18 11:44 Dose: 2 units Levothyroxine Sodium (Synthroid -) 25 mcg PO DAILY@0700 [facility] Last Admin: 03/04/18 06:20 Dose: 25 mcg Lisinopril (Prinivil) 10 mg PO DAILY [facility] Last Admin: 03/04/18 10:30 Dose: 10 mg Metoprolol Succinate (Toprol Xl -) 100 mg PO DAILY [facility] Last Admin: 03/04/18 10:32 Dose: 100 mg Multivitamins/Minerals/Vitamin C (Tab-A-Vit -) 1 tab PO DAILY [facility] Last Admin: 03/04/18 10:32 Dose: 1 tab Pantoprazole Sodium (Protonix -) 40 mg PO DAILY [facility] Last Admin: 03/04/18 10:30 Dose: 40 mg Senna (Senna -) 1 tab PO [facility] Last Admin: 03/03/18 21:42 Dose: 1 tab Sertraline HCl (Zoloft -) 25 mg PO HS [facility] Last Admin: 03/03/18 21:41 Dose: 25 mg CBC, BMP 03/03/18 10:20 03/03/18 14:20 Microbiology 02/28/18 21:10 Blood Culture - Preliminary Blood - Peripheral Venous NO GROWTH OBTAINED AFTER 72 HOURS, INCUBATION TO CONTINUE FOR 2 DAYS. 02/28/18 21:10 Blood Culture - Preliminary Blood - Peripheral Venous NO GROWTH OBTAINED AFTER 72 HOURS, INCUBATION TO CONTINUE FOR 2 DAYS. Physical Exam Constitutional: Yes: Calm, comfortable. Eyes: Yes: Conjunctiva Clear HENT: Yes: wnl Neck: Yes: Supple, no jvd Cardiovascular: Yes: S1, S2 rrr Respiratory: Yes: Diminished at bases Gastrointestinal: Yes: Soft/ non tender Musculoskeletal: Yes: Other (left toe erythema and swelling) Edema: LLE: 1+, RLE: 1+ Neurological: Yes: alert and awake Psychiatric: Yes: Oriented Imaging - Results Chest X-ray: Report Reviewed-- Assessment/Plan 1. ESRD 3. DM 4. CAD 5. PVD 6. Anemia 7. Pleural Effusion 8. Ischemic toes clinically better continue present care add basal insulin ABX I/D ON CASE will follow
--- NOTE | 2018-03-04 19:02 | PN ---
Progress Note (short form) - Note Progress Note: covering Problems 1. ESRD 2. hyperkalemia 3. DM 4. CAD 5. PVD 6. DFU 7. anemia Current Medications Acetaminophen (Tylenol -) 650 mg PO Q6H PRN PRN Reason: PAIN Last Admin: 03/03/18 16:30 Dose: 650 mg Acetaminophen (Tylenol -) 325 mg PO Q12H PRN PRN Reason: PAIN LEVEL 6-10 Last Admin: 03/02/18 18:48 Dose: 325 mg Albuterol/Ipratropium (Duoneb -) 1 amp NEB RTID [facility] Last Admin: 03/04/18 13:21 Dose: 1 amp Aspirin (Asa -) 81 mg PO DAILY [facility] Last Admin: 03/04/18 10:30 Dose: 81 mg Atorvastatin Calcium (Lipitor -) 80 mg PO HS [facility] Last Admin: 03/03/18 21:42 Dose: 80 mg Calcium Acetate (Phoslo -) 667 mg PO TIDCM [facility] Last Admin: 03/04/18 17:35 Dose: 667 mg Heparin Sodium (Porcine) (Heparin -) 5,000 unit SQ TID [facility] Last Admin: 03/04/18 14:22 Dose: 5,000 unit Piperacillin Sod/Tazobactam (Sod 2.25 gm/ Dextrose) 50 mls @ 100 mls/hr IVPB Q8H-IV [facility]; Protocol Last Admin: 03/04/18 17:55 Dose: 100 mls/hr Insulin Aspart (Novolog Vial Sliding Scale -) 1 vial SQ ACHS [facility]; Protocol Last Admin: 03/04/18 16:51 Dose: 4 units Insulin Detemir (Levemir Vial) 5 units SQ [facility] Levothyroxine Sodium (Synthroid -) 25 mcg PO DAILY@0700 [facility] Last Admin: 03/04/18 06:20 Dose: 25 mcg Lisinopril (Prinivil) 10 mg PO DAILY [facility] Last Admin: 03/04/18 10:30 Dose: 10 mg Metoprolol Succinate (Toprol Xl -) 100 mg PO DAILY [facility] Last Admin: 03/04/18 10:32 Dose: 100 mg Multivitamins/Minerals/Vitamin C (Tab-A-Vit -) 1 tab PO DAILY [facility] Last Admin: 03/04/18 10:32 Dose: 1 tab Pantoprazole Sodium (Protonix -) 40 mg PO DAILY [facility] Last Admin: 03/04/18 10:30 Dose: 40 mg Senna (Senna -) 1 tab PO HS [facility] Last Admin: 03/03/18 21:42 Dose: 1 tab Sertraline HCl (Zoloft -) 25 mg PO [facility] Last Admin: 03/03/18 21:41 Dose: 25 mg Last Vital Signs Temp Pulse Resp BP Pulse Ox 98.3 F 80 20 145/60 99 03/04/18 18:00 03/04/18 18:00 03/04/18 18:00 03/04/18 18:00 03/03/18 21:59 lungs clear heart reg abd soft nontender ext no edema CBC, BMP 03/03/18 10:20 03/03/18 14:20 IMP ESRD stable on dialysis Plan- hd next week
[2018-03-04] MEDS ORDERED: INSULIN (NOVOLOG) ASPART 100 UNITS/ML 10ML VIAL ONE (20:34)
[2018-03-04] MEDS: ATORVASTATIN CA 80 MG TABLET (FP) PO SCH (22:30)
[2018-03-04] MEDS: SERTRALINE HCL 25 MG TABLET (FP) PO SCH (22:30)
[2018-03-04] MEDS: SENNOSIDES 8.6MG TABLET (FP) PO SCH (22:30)
[2018-03-04] MEDS: INSULIN (LEVEMIR) 100 UNITS/ML UNITS SQ SCH (22:33)
[2018-03-05] MEDS ORDERED: DEXTROSE 5%-WATER - 50 ML IVPB ONE ×3 (01:50→16:57)
[2018-03-05] MEDS ORDERED: PIPERACILLIN/TAZOBACTAM 2.25 GM VIAL IVPB ONE ×3 (01:50→16:56)
[2018-03-05] MEDS: PIPERACILLIN/TAZOB 2.25 GM 2.25 GM in DEXTROSE 5%-WATER - 50 ML IVPB SCH ×3 (02:01→17:15)
[2018-03-05] MEDS: ACETAMINOPHEN 325 MG TABLET (FP) PO PRN ×2 (04:34→17:43)
[2018-03-05] MEDS: HEPARIN NA (PORCINE) 5,000 UNITS/ML 1ML VIAL SQ SCH ×4 (06:22→22:12)
[2018-03-05] MEDS: INSULIN SLIDING SCALE (NOVOLOG) 1 VIAL SQ SCH ×4 (06:23→22:13)
[2018-03-05] MEDS: LEVOTHYROXINE NA 25 MCG TABLET (FP) PO SCH (06:23)
[2018-03-05] MEDS: ALBUTEROL SO4 2.5/IPRATROPIUM 0.5 INH SOL 3 ML VIAL.NEB. NEB SCH ×3 (07:35→20:42)
[2018-03-05] MEDS: CALCIUM ACETATE 667 MG CAPSULE (FP) PO SCH ×3 (08:05→16:45)
--- NOTE | 2018-03-05 08:30 | PN ---
Progress Note (short form) - Note Progress Note: Chief Complaint: Events noted, noted reviewed. Dyspnea persists but improving, denies any chest pain, reporting cough productive of clear sputum History of Present Illness: Seen and examined. Events noted, noted reviewed. Dyspnea persists but improving , denies any chest pain, reporting cough productive of clear sputum - Current Medication List Current Medications Acetaminophen (Tylenol -) 650 mg PO Q6H PRN PRN Reason: PAIN Last Admin: 03/05/18 04:34 Dose: 650 mg Acetaminophen (Tylenol -) 325 mg PO Q12H PRN PRN Reason: PAIN LEVEL 6-10 Last Admin: 03/02/18 18:48 Dose: 325 mg Albuterol/Ipratropium (Duoneb -) 1 amp NEB RTID [facility] Last Admin: 03/04/18 19:30 Dose: 1 amp Aspirin (Asa -) 81 mg PO DAILY [facility] Last Admin: 03/04/18 10:30 Dose: 81 mg Atorvastatin Calcium (Lipitor -) 80 mg PO HS [facility] Last Admin: 03/04/18 22:30 Dose: 80 mg Calcium Acetate (Phoslo -) 667 mg PO TIDCM [facility] Last Admin: 03/05/18 08:05 Dose: 667 mg Heparin Sodium (Porcine) (Heparin -) 5,000 unit SQ TID [facility] Last Admin: 03/05/18 06:22 Dose: 5,000 unit Piperacillin Sod/Tazobactam (Sod 2.25 gm/ Dextrose) 50 mls @ 100 mls/hr IVPB Q8H-IV [facility]; Protocol Last Admin: 03/05/18 02:01 Dose: 100 mls/hr Insulin Aspart (Novolog Vial Sliding Scale -) 1 vial SQ ACHS [facility]; Protocol Last Admin: 03/05/18 06:23 Dose: Not Given Insulin Detemir (Levemir Vial) 5 units SQ [facility] Last Admin: 03/04/18 22:33 Dose: 5 unit Levothyroxine Sodium (Synthroid -) 25 mcg PO DAILY@0700 [facility] Last Admin: 03/05/18 06:23 Dose: 25 mcg Lisinopril (Prinivil) 10 mg PO DAILY [facility] Last Admin: 03/04/18 10:30 Dose: 10 mg Metoprolol Succinate (Toprol Xl -) 100 mg PO DAILY [facility] Last Admin: 03/04/18 10:32 Dose: 100 mg Multivitamins/Minerals/Vitamin C (Tab-A-Vit -) 1 tab PO DAILY [facility] Last Admin: 03/04/18 10:32 Dose: 1 tab Pantoprazole Sodium (Protonix -) 40 mg PO DAILY [facility] Last Admin: 03/04/18 10:30 Dose: 40 mg Senna (Senna -) 1 tab PO [facility] Last Admin: 03/04/18 22:30 Dose: 1 tab Sertraline HCl (Zoloft -) 25 mg PO [facility] Last Admin: 03/04/18 22:30 Dose: 25 mg - Review of Systems Constitutional: denies: Chills, Fever Cardiovascular: As noted above Respiratory: reports: Cough with Sputum Production Gastrointestinal: denies: Nausea, Vomiting, Diarrhea, Constipation or Abdominal Pain Genitourinary: HD Neurological: denies: Dizziness or Headaches Endocrine: denies: Intolerance to Cold, Intolerance to Heat - Objective Vital Signs: Last Vital Signs Temp Pulse Resp BP Pulse Ox 98.3 F 80 20 150/65 97 03/05/18 05:28 03/05/18 05:28 03/05/18 05:28 03/05/18 05:28 03/04/18 21:00 Intake & Output 03/02/18 03/03/18 03/04/18 03/05/18 23:59 23:59 23:59 23:59 Intake Total 350 100 290 50 Output Total 200 Balance 350 -100 290 50 Weight 163 lb 3.2 oz 164 lb 2 oz 165 lb 162 lb 5 oz Constitutional: No Distress, Calm, Thin Neck: Supple Negative JVD Respiratory: diminished Breath Sounds at the Bases Bilaterally L>R Cardiovascular: S1 S2 Regular Rate and Rhythm Grade 1/6 systolic murmur Gastrointestinal: Soft Benign Normal Bowel Sounds Ext: Trace Edema Labs: CBC, BMP 03/03/18 10:20 03/03/18 14:20 Hepatic Panel Total Bilirubin 0.6 mg/dL (0.2-1.0) 03/03/18 10:20 AST 22 U/L (15-37) 03/03/18 10:20 ALT 16 U/L (12-78) 03/03/18 10:20 Alkaline Phosphatase 113 U/L (45-117) 03/03/18 10:20 Albumin 2.9 g/dl (3.4-5.0) L 03/03/18 10:20 INR, PTT INR 1.21 (0.82-1.09) H 02/28/18 21:10 Assessment/Plan ASSESSMENT: 1. Acute on chronic class I-II NYHA classification LV failure related to ischemic dilated cardiomyopathy/severe LV systolic dysfunction, resolving 2. CAD post remote [place] post CABG angina pectoris, stable 3. Post prophylactic ICD implant (unknown device type), records to be obtained 4. HTN 5. IDDM 6. Hypercholesterolemia 7. PAD with toe gangrene for peripheral intervention 8. ESRD on HD 9. Anemia PLAN: 1. Continue Toprol XL 2. Continue Lisinopril 3. Continue ASA +/- Plavix, Plavix held for possible surgery but ideally if vascular intervention is planned therapy should be resumed 4. Continue Lipitor 5. As outlined in prior note recommend additional ultra-filtration during HD to mobilize additional fluid and if pleural effusion persists consideration for therapeutic thoracentesis, nephrology service t review 6. 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
[2018-03-05] MEDS: LISINOPRIL 10 MG TABLET (FP) PO SCH (09:51)
[2018-03-05] MEDS: ASPIRIN 81 MG CHEWABLE TABLETS PO SCH (09:51)
[2018-03-05] MEDS: MULTIVITAMINS (DAILY MVI) TABLET (FP) PO SCH (09:51)
[2018-03-05] MEDS: PANTOPRAZOLE 40 MG TABLET (FP) PO SCH (09:51)
--- NOTE | 2018-03-05 11:45 | PN ---
Progress Note (short form) - Note Progress Note: PULMONARY States breathing better today. Less cough. Last Vital Signs Temp Pulse Resp BP Pulse Ox 98.1 F 80 20 152/63 96 03/05/18 10:00 03/05/18 10:00 03/05/18 10:00 03/05/18 10:00 03/05/18 09:00 Gen: NAD at rest Heart: RRR Lung: scattered rhonchi Abd: soft, nontender Ext: no edema CBC, BMP 03/03/18 10:20 03/03/18 14:20 Active Medications Acetaminophen (Tylenol -) 650 mg PO Q6H PRN PRN Reason: PAIN Last Admin: 03/05/18 04:34 Dose: 650 mg Acetaminophen (Tylenol -) 325 mg PO Q12H PRN PRN Reason: PAIN LEVEL 6-10 Last Admin: 03/02/18 18:48 Dose: 325 mg Albuterol/Ipratropium (Duoneb -) 1 amp NEB RTID [facility] Last Admin: 03/05/18 07:35 Dose: 1 amp Aspirin (Asa -) 81 mg PO DAILY [facility] Last Admin: 03/05/18 09:51 Dose: 81 mg Atorvastatin Calcium (Lipitor -) 80 mg PO HS [facility] Last Admin: 03/04/18 22:30 Dose: 80 mg Calcium Acetate (Phoslo -) 667 mg PO TIDCM [facility] Last Admin: 03/05/18 11:04 Dose: 667 mg Heparin Sodium (Porcine) (Heparin -) 5,000 unit SQ TID [facility] Last Admin: 03/05/18 06:22 Dose: 5,000 unit Piperacillin Sod/Tazobactam (Sod 2.25 gm/ Dextrose) 50 mls @ 100 mls/hr IVPB Q8H-IV [facility]; Protocol Last Admin: 03/05/18 09:50 Dose: 100 mls/hr Insulin Aspart (Novolog Vial Sliding Scale -) 1 vial SQ ACHS [facility]; Protocol Last Admin: 03/05/18 11:01 Dose: 4 units Insulin Detemir (Levemir Vial) 5 units SQ [facility] Last Admin: 03/04/18 22:33 Dose: 5 unit Levothyroxine Sodium (Synthroid -) 25 mcg PO DAILY@0700 [facility] Last Admin: 03/05/18 06:23 Dose: 25 mcg Lisinopril (Prinivil) 10 mg PO DAILY [facility] Last Admin: 03/05/18 09:51 Dose: 10 mg Metoprolol Succinate (Toprol Xl -) 100 mg PO DAILY [facility] Last Admin: 03/05/18 09:51 Dose: 100 mg Multivitamins/Minerals/Vitamin C (Tab-A-Vit -) 1 tab PO DAILY [facility] Last Admin: 03/05/18 09:51 Dose: 1 tab Pantoprazole Sodium (Protonix -) 40 mg PO DAILY [facility] Last Admin: 03/05/18 09:51 Dose: 40 mg Senna (Senna -) 1 tab PO HS [facility] Last Admin: 03/04/18 22:30 Dose: 1 tab Sertraline HCl (Zoloft -) 25 mg PO [facility] Last Admin: 03/04/18 22:30 Dose: 25 mg A/P Acute on Chronic Systolic Heart Failure ESRD on HD Left Pleural Effusion COPD CAD s/p CABG HTN DM Left toe gangrene - antibiotics per ID - continue HD with ultrafiltration - inhaled bronchodilators - O2 to keep Spo2 >90% - DVT prophylaxis
--- NOTE | 2018-03-05 11:50 | PN ---
Progress Note (short form) - Note Progress Note: Pt seen/ examined awake/ comfortable had mild nausea today- better now denies abd pain. denies cp. breathing stable afebrile Pulmonary f/u noted/ appreciated Discussed with Dr. Sawyer also. Vital Signs Temp 98.1 F 03/05/18 10:00 Pulse 80 03/05/18 10:00 Resp 20 03/05/18 10:00 BP 152/63 03/05/18 10:00 Pulse Ox 96 03/05/18 09:00 Intake & Output 03/04/18 03/04/18 03/05/18 11:59 23:59 11:59 Intake Total 120 170 50 Balance 120 170 50 Weight 165 lb 162 lb 5 oz Intake: IVPB 50 50 Oral 120 120 Other: Voiding Method Urinal Urinal Urinal Weight Measurement Method Chair Scale Standing Scale Active Medications Acetaminophen (Tylenol -) 650 mg PO Q6H PRN PRN Reason: PAIN Last Admin: 03/05/18 04:34 Dose: 650 mg Acetaminophen (Tylenol -) 325 mg PO Q12H PRN PRN Reason: PAIN LEVEL 6-10 Last Admin: 03/02/18 18:48 Dose: 325 mg Albuterol Sulfate (Ventolin 0.083% Nebulizer Soln -) 1 amp NEB Q4H PRN PRN Reason: SHORT OF BREATH/WHEEZING Albuterol/Ipratropium (Duoneb -) 1 amp NEB RTID [facility] Last Admin: 03/05/18 07:35 Dose: 1 amp Aspirin (Asa -) 81 mg PO DAILY [facility] Last Admin: 03/05/18 09:51 Dose: 81 mg Atorvastatin Calcium (Lipitor -) 80 mg PO HS [facility] Last Admin: 03/04/18 22:30 Dose: 80 mg Calcium Acetate (Phoslo -) 667 mg PO TIDCM [facility] Last Admin: 03/05/18 11:04 Dose: 667 mg Heparin Sodium (Porcine) (Heparin -) 5,000 unit SQ TID [facility] Last Admin: 03/05/18 06:22 Dose: 5,000 unit Piperacillin Sod/Tazobactam (Sod 2.25 gm/ Dextrose) 50 mls @ 100 mls/hr IVPB Q8H-IV [facility]; Protocol Last Admin: 03/05/18 09:50 Dose: 100 mls/hr Insulin Aspart (Novolog Vial Sliding Scale -) 1 vial SQ [facility]; Protocol Last Admin: 03/05/18 11:01 Dose: 4 units Insulin Detemir (Levemir Vial) 5 units SQ [facility] Last Admin: 03/04/18 22:33 Dose: 5 unit Levothyroxine Sodium (Synthroid -) 25 mcg PO DAILY@0700 [facility] Last Admin: 03/05/18 06:23 Dose: 25 mcg Lisinopril (Prinivil) 10 mg PO DAILY [facility] Last Admin: 03/05/18 09:51 Dose: 10 mg Metoprolol Succinate (Toprol Xl -) 100 mg PO DAILY [facility] Last Admin: 03/05/18 09:51 Dose: 100 mg Multivitamins/Minerals/Vitamin C (Tab-A-Vit -) 1 tab PO DAILY [facility] Last Admin: 03/05/18 09:51 Dose: 1 tab Pantoprazole Sodium (Protonix -) 40 mg PO DAILY [facility] Last Admin: 03/05/18 09:51 Dose: 40 mg Senna (Senna -) 1 tab PO [facility] Last Admin: 03/04/18 22:30 Dose: 1 tab Sertraline HCl (Zoloft -) 25 mg PO [facility] Last Admin: 03/04/18 22:30 Dose: 25 mg CBC, BMP 03/03/18 10:20 03/03/18 14:20 Microbiology 02/28/18 21:10 Blood Culture - Preliminary Blood - Peripheral Venous NO GROWTH OBTAINED AFTER 96 HOURS, INCUBATION TO CONTINUE FOR 1 DAYS. 02/28/18 21:10 Blood Culture - Preliminary Blood - Peripheral Venous NO GROWTH OBTAINED AFTER 96 HOURS, INCUBATION TO CONTINUE FOR 1 DAYS. Physical Exam Constitutional: Yes: Calm, comfortable. Eyes: Yes: Conjunctiva Clear HENT: Yes: wnl Neck: Yes: Supple, no jvd Cardiovascular: Yes: S1, S2 rrr Respiratory: Yes: Diminished at bases Gastrointestinal: Yes: Soft/ non tender. bs + Musculoskeletal: Yes: Other (left toe erythema and swelling) Edema: LLE: 1+, RLE: 1+ Neurological: Yes: alert and awake Psychiatric: Yes: Oriented Imaging - Results Chest X-ray: Report Reviewed-- Assessment/Plan 1. ESRD 3. DM 4. CAD 5. PVD 6. Anemia 7. Pleural Effusion 8. Ischemic toes clinically stable continue present care added basal insulin yesterday monitor Abx Angiogram planned -- to be coordinated with renal will follow Problem List - Problems (1) ASHD (arteriosclerotic heart disease) Code(s): I25.10 - ATHSCL HEART DISEASE OF [place] CORONARY ARTERY W/O ANG PCTRS (2) COPD (chronic obstructive pulmonary disease) Code(s): J44.9 - CHRONIC OBSTRUCTIVE PULMONARY DISEASE, UNSPECIFIED (3) Diabetes Code(s): E11.9 - TYPE 2 DIABETES MELLITUS WITHOUT COMPLICATIONS (4) Dyspnea Code(s): R06.00 - DYSPNEA, UNSPECIFIED (5) ESRD (end stage renal disease) Code(s): N18.6 - END STAGE RENAL DISEASE (6) Gangrene Code(s): I96 - GANGRENE, NOT ELSEWHERE CLASSIFIED (7) HTN (hypertension) Code(s): I10 - ESSENTIAL (PRIMARY) HYPERTENSION (8) PVD (peripheral vascular disease) Code(s): I73.9 - PERIPHERAL VASCULAR DISEASE, UNSPECIFIED (9) S/P CABG (coronary artery bypass graft) Code(s): Z95.1 - PRESENCE OF AORTOCORONARY BYPASS GRAFT
[2018-03-05] MEDS ORDERED: ALBUTEROL SO4 0.083% IH SOL 2.5 MG/3 ML VIAL.NEB. NEB PRN (11:56)
--- NOTE | 2018-03-05 12:43 | PN ---
Progress Note (short form) - Note Progress Note: [facility] note appreciated. Will plan if possible to do the LLE angiogram on mon. Pt for HD tom. Robel Nieves DO
[2018-03-05] MEDS ORDERED: INSULIN (NOVOLOG) ASPART 100 UNITS/ML 10ML VIAL ONE (20:27)
[2018-03-05] MEDS: ALBUTEROL SO4 0.083% IH SOL 2.5 MG/3 ML VIAL.NEB. NEB PRN (20:30)
--- NOTE | 2018-03-05 21:53 | PN ---
Progress Note (short form) - Note Progress Note: covering Problems 1. ESRD 2. hyperkalemia 3. DM 4. CAD 5. PVD 6. DFU 7. anemia Current Medications Acetaminophen (Tylenol -) 650 mg PO Q6H PRN PRN Reason: PAIN Last Admin: 03/05/18 17:43 Dose: 650 mg Acetaminophen (Tylenol -) 325 mg PO Q12H PRN PRN Reason: PAIN LEVEL 6-10 Last Admin: 03/02/18 18:48 Dose: 325 mg Albuterol Sulfate (Ventolin 0.083% Nebulizer Soln -) 1 amp NEB Q4H PRN PRN Reason: SHORT OF BREATH/WHEEZING Albuterol Sulfate (Ventolin 0.083% Nebulizer Soln -) 1 amp NEB Q3H PRN PRN Reason: SHORT OF BREATH/WHEEZING Albuterol/Ipratropium (Duoneb -) 1 amp NEB RTID [facility] Last Admin: 03/05/18 20:42 Dose: 1 amp Aspirin (Asa -) 81 mg PO DAILY [facility] Last Admin: 03/05/18 09:51 Dose: 81 mg Atorvastatin Calcium (Lipitor -) 80 mg PO HS [facility] Last Admin: 03/04/18 22:30 Dose: 80 mg Calcium Acetate (Phoslo -) 667 mg PO TIDCM [facility] Last Admin: 03/05/18 16:45 Dose: 667 mg Heparin Sodium (Porcine) (Heparin -) 5,000 unit SQ TID [facility] Last Admin: 03/05/18 16:45 Dose: 5,000 unit Piperacillin Sod/Tazobactam (Sod 2.25 gm/ Dextrose) 50 mls @ 100 mls/hr IVPB Q8H-IV [facility]; Protocol Last Admin: 03/05/18 17:15 Dose: 100 mls/hr Insulin Aspart (Novolog Vial Sliding Scale -) 1 vial SQ ACHS [facility]; Protocol Last Admin: 03/05/18 16:49 Dose: 2 units Insulin Detemir (Levemir Vial) 5 units SQ [facility] Last Admin: 03/04/18 22:33 Dose: 5 unit Levothyroxine Sodium (Synthroid -) 25 mcg PO DAILY@0700 [facility] Last Admin: 03/05/18 06:23 Dose: 25 mcg Lisinopril (Prinivil) 10 mg PO DAILY [facility] Last Admin: 03/05/18 09:51 Dose: 10 mg Metoprolol Succinate (Toprol Xl -) 100 mg PO DAILY [facility] Last Admin: 03/05/18 09:51 Dose: 100 mg Multivitamins/Minerals/Vitamin C (Tab-A-Vit -) 1 tab PO DAILY [facility] Last Admin: 03/05/18 09:51 Dose: 1 tab Pantoprazole Sodium (Protonix -) 40 mg PO DAILY [facility] Last Admin: 03/05/18 09:51 Dose: 40 mg Senna (Senna -) 1 tab PO HS [facility] Last Admin: 03/04/18 22:30 Dose: 1 tab Sertraline HCl (Zoloft -) 25 mg PO [facility] Last Admin: 03/04/18 22:30 Dose: 25 mg Last Vital Signs Temp Pulse Resp BP Pulse Ox 98.4 F 81 20 153/69 96 03/05/18 17:22 03/05/18 17:22 03/05/18 17:22 03/05/18 17:22 03/05/18 09:00 lungs clear heart reg abd soft nontender ext no edema IMP ESRD stable on dialysis Plan- hd monday
[2018-03-05] MEDS: SENNOSIDES 8.6MG TABLET (FP) PO SCH (22:11)
[2018-03-05] MEDS: ATORVASTATIN CA 80 MG TABLET (FP) PO SCH (22:11)
[2018-03-05] MEDS: SERTRALINE HCL 25 MG TABLET (FP) PO SCH (22:11)
[2018-03-05] MEDS: INSULIN (LEVEMIR) 100 UNITS/ML UNITS SQ SCH (22:12)
[2018-03-06] MEDS ORDERED: DEXTROSE 5%-WATER - 50 ML IVPB ONE ×3 (01:07→17:19)
[2018-03-06] MEDS ORDERED: PIPERACILLIN/TAZOBACTAM 2.25 GM VIAL IVPB ONE ×3 (01:07→17:19)
[2018-03-06] MEDS: PIPERACILLIN/TAZOB 2.25 GM 2.25 GM in DEXTROSE 5%-WATER - 50 ML IVPB SCH ×3 (01:22→17:25)
[2018-03-06] MEDS: LEVOTHYROXINE NA 25 MCG TABLET (FP) PO SCH (06:11)
[2018-03-06] MEDS: HEPARIN NA (PORCINE) 5,000 UNITS/ML 1ML VIAL SQ SCH ×3 (06:11→22:35)
[2018-03-06] MEDS: INSULIN SLIDING SCALE (NOVOLOG) 1 VIAL SQ SCH ×4 (06:12→22:36)
[2018-03-06] MEDS: ALBUTEROL SO4 0.083% IH SOL 2.5 MG/3 ML VIAL.NEB. NEB PRN ×3 (06:49→20:18)
[2018-03-06] MEDS ORDERED: PT OWN MED DRAWER 7, Y5N ONE ×2 (06:55→17:19)
[2018-03-06] MEDS: CALCIUM ACETATE 667 MG CAPSULE (FP) PO SCH ×3 (07:52→17:25)
--- NOTE | 2018-03-06 07:58 | SPA.PREOP ---
- PRE-OP NOTE Dx: Left great toe gangrene Planned Procedure: Left LE angiogram possible angioplasty Surgeon: Ezequiel Consent: The surgeon explained all risks, benefits and alternatives and the patient had the Opportunity for questions. Consent to be obtained by the surgeon at the bedside. Last Vital Signs Temp Pulse Resp BP Pulse Ox 98.7 F 80 20 147/58 98 03/06/18 05:13 03/06/18 05:13 03/06/18 05:13 03/06/18 05:13 03/05/18 21:00 Lab Results WBC 8.2 K/mm3 (4.0-10.0) 03/03/18 10:20 RBC 3.05 M/mm3 (4.00-5.60) L 03/03/18 10:20 Hgb 8.8 GM/dL (11.7-16.9) L 03/03/18 10:20 Hct 27.0 % (35.4-49) L 03/03/18 10:20 MCV 88.7 fl (80-96) 03/03/18 10:20 MCHC 32.4 g/dl (32.0-35.9) 03/03/18 10:20 RDW 17.6 % (11.9-15.9) H 03/03/18 10:20 Plt Count 190 K/MM3 (134-434) 03/03/18 10:20 Sodium 139 mmol/L (136-145) 03/03/18 10:20 Potassium 4.5 mmol/L (3.5-5.1) 03/03/18 10:20 Chloride 99 mmol/L (98-107) 03/03/18 10:20 Carbon Dioxide 31 mmol/L (21-32) 03/03/18 10:20 Anion Gap 9 (8-16) 03/03/18 10:20 BUN 7 mg/dL (7-18) D 03/03/18 14:20 Creatinine 1.6 mg/dL (0.7-1.3) H D 03/03/18 14:20 Random Glucose 184 mg/dL (74-106) H D 03/03/18 10:20 Calcium 8.0 mg/dL (8.5-10.1) L 03/03/18 10:20 INR 1.21 (0.82-1.09) H 02/28/18 21:10 - ASSESSMENT/PLAN Problem List - Problems (1) Gangrene Assessment/Plan: 1. Make NPO after midnight except po meds 2. GI/DVT PPX 3. Medical optimization / clearance Code(s): I96 - GANGRENE, NOT ELSEWHERE CLASSIFIED
--- NOTE | 2018-03-06 08:05 | PN ---
Progress Note (short form) - Note Progress Note: Chief Complaint: Events noted, noted reviewed. Dyspnea persists but slightly improved, denies any chest pain, reporting cough productive of clear sputum History of Present Illness: Seen and examined. Events noted, noted reviewed. Dyspnea persists but slightly improved, denies any chest pain, reporting cough productive of clear sputum Chest x-ray 03/04/2018 worsening failure, as recommended patient will require additional fluid mobilization/ultra-filtration to address his current de- compensated class II NYHA classification LV failure (medical therapy is of limited benefits considering his ESRD on HD) - Current Medication List Current Medications Acetaminophen (Tylenol -) 650 mg PO Q6H PRN PRN Reason: PAIN Last Admin: 03/05/18 17:43 Dose: 650 mg Acetaminophen (Tylenol -) 325 mg PO Q12H PRN PRN Reason: PAIN LEVEL 6-10 Last Admin: 03/02/18 18:48 Dose: 325 mg Albuterol Sulfate (Ventolin 0.083% Nebulizer Soln -) 1 amp NEB Q4H PRN PRN Reason: SHORT OF BREATH/WHEEZING Last Admin: 03/06/18 06:49 Dose: 1 amp Albuterol Sulfate (Ventolin 0.083% Nebulizer Soln -) 1 amp NEB Q3H PRN PRN Reason: SHORT OF BREATH/WHEEZING Last Admin: 03/05/18 23:53 Dose: 1 amp Aspirin (Asa -) 81 mg PO DAILY [facility] Last Admin: 03/05/18 09:51 Dose: 81 mg Atorvastatin Calcium (Lipitor -) 80 mg PO HS [facility] Last Admin: 03/05/18 22:11 Dose: 80 mg Calcium Acetate (Phoslo -) 667 mg PO TIDCM [facility] Last Admin: 03/06/18 07:52 Dose: 667 mg Heparin Sodium (Porcine) (Heparin -) 5,000 unit SQ TID [facility] Last Admin: 03/06/18 06:11 Dose: 5,000 unit Piperacillin Sod/Tazobactam (Sod 2.25 gm/ Dextrose) 50 mls @ 100 mls/hr IVPB Q8H-IV [facility]; Protocol Last Admin: 03/06/18 01:22 Dose: 100 mls/hr Insulin Aspart (Novolog Vial Sliding Scale -) 1 vial SQ ACHS [facility]; Protocol Last Admin: 03/06/18 06:12 Dose: Not Given Insulin Detemir (Levemir Vial) 5 units SQ [facility] Last Admin: 03/05/18 22:12 Dose: 5 unit Levothyroxine Sodium (Synthroid -) 25 mcg PO DAILY@0700 [facility] Last Admin: 03/06/18 06:11 Dose: 25 mcg Lisinopril (Prinivil) 10 mg PO DAILY [facility] Last Admin: 03/05/18 09:51 Dose: 10 mg Metoprolol Succinate (Toprol Xl -) 100 mg PO DAILY [facility] Last Admin: 03/05/18 09:51 Dose: 100 mg Multivitamins/Minerals/Vitamin C (Tab-A-Vit -) 1 tab PO DAILY [facility] Last Admin: 03/05/18 09:51 Dose: 1 tab Pantoprazole Sodium (Protonix -) 40 mg PO DAILY [facility] Last Admin: 03/05/18 09:51 Dose: 40 mg Senna (Senna -) 1 tab PO [facility] Last Admin: 03/05/18 22:11 Dose: 1 tab Sertraline HCl (Zoloft -) 25 mg PO [facility] Last Admin: 03/05/18 22:11 Dose: 25 mg - Review of Systems Constitutional: denies: Chills, Fever Cardiovascular: As noted above Respiratory: reports: Cough with Sputum Production Gastrointestinal: denies: Nausea, Vomiting, Diarrhea, Constipation or Abdominal Pain Genitourinary: HD Neurological: denies: Dizziness or Headaches Endocrine: denies: Intolerance to Cold, Intolerance to Heat - Objective Vital Signs: Last Vital Signs Temp Pulse Resp BP Pulse Ox 98.7 F 80 20 147/58 98 03/06/18 05:13 03/06/18 05:13 03/06/18 05:13 03/06/18 05:13 03/05/18 21:00 Intake & Output 03/03/18 03/04/18 03/05/18 03/06/18 23:59 23:59 23:59 23:59 Intake Total 100 290 250 150 Output Total 200 Balance -100 290 250 150 Weight 164 lb 2 oz 165 lb 162 lb 5 oz 162 lb 7 oz Constitutional: No Distress, Calm, Thin Neck: Supple Negative JVD Respiratory: diminished Breath Sounds at the Bases Bilaterally L>R Cardiovascular: S1 S2 Regular Rate and Rhythm Grade 1/6 systolic murmur Gastrointestinal: Soft Benign Normal Bowel Sounds Ext: Trace Edema Labs: CBC, BMP 03/03/18 10:20 03/03/18 14:20 Hepatic Panel Total Bilirubin 0.6 mg/dL (0.2-1.0) 03/03/18 10:20 AST 22 U/L (15-37) 03/03/18 10:20 ALT 16 U/L (12-78) 03/03/18 10:20 Alkaline Phosphatase 113 U/L (45-117) 03/03/18 10:20 Albumin 2.9 g/dl (3.4-5.0) L 03/03/18 10:20 INR, PTT INR 1.21 (0.82-1.09) H 02/28/18 21:10 No blood test ordered for today Assessment/Plan ASSESSMENT: 1. Acute on chronic class II NYHA classification LV failure related to ischemic dilated cardiomyopathy/severe LV systolic dysfunction, worsening chest x-ray 2. CAD post remote MS post CABG angina pectoris, stable 3. Post prophylactic ICD implant ([employer]'s device) 4. HTN 5. IDDM 6. Hypercholesterolemia 7. PAD with toe gangrene for peripheral intervention this week 8. ESRD on HD 9. Anemia PLAN: 1. Continue Toprol XL 2. Continue Lisinopril and titrate dosage as tolerated and hemodynamics permitting 3. Continue ASA +/- Plavix, Plavix held for possible surgery but ideally if vascular intervention is planned therapy should be resumed 4. Continue Lipitor 5. As outlined in prior note recommend additional ultra-filtration during HD to mobilize additional fluid and if pleural effusion persists consideration for therapeutic thoracentesis, nephrology service t review 6. Device interrogation with [employer]'s and additional information to obtained from [facility] was reviewed in detail with the patient Jordon Lozoya M.D.
--- NOTE | 2018-03-06 08:46 | PN ---
Progress Note (short form) - Note Progress Note: patient seen and examined. Clinically--feels better Still short of breath denies chest pain Just came back from chest x-ray done Vital Signs Temp 98.7 F 03/06/18 05:13 Pulse 80 03/06/18 05:13 Resp 20 03/06/18 05:13 BP 147/58 03/06/18 05:13 Pulse Ox 98 03/05/18 21:00 Intake & Output 03/05/18 03/05/18 03/06/18 11:59 23:59 11:59 Intake Total 50 200 150 Balance 50 200 150 Weight 162 lb 5 oz 162 lb 7 oz Intake: IVPB 50 100 50 Oral 100 100 Other: Voiding Method Urinal Urinal Toilet Bowel Movement Yes Weight Measurement Method Standing Scale Standing Scale Active Medications Acetaminophen (Tylenol -) 650 mg PO Q6H PRN PRN Reason: PAIN Last Admin: 03/05/18 17:43 Dose: 650 mg Acetaminophen (Tylenol -) 325 mg PO Q12H PRN PRN Reason: PAIN LEVEL 6-10 Last Admin: 03/02/18 18:48 Dose: 325 mg Albuterol Sulfate (Ventolin 0.083% Nebulizer Soln -) 1 amp NEB Q4H PRN PRN Reason: SHORT OF BREATH/WHEEZING Last Admin: 03/06/18 06:49 Dose: 1 amp Albuterol Sulfate (Ventolin 0.083% Nebulizer Soln -) 1 amp NEB Q3H PRN PRN Reason: SHORT OF BREATH/WHEEZING Last Admin: 03/05/18 23:53 Dose: 1 amp Aspirin (Asa -) 81 mg PO DAILY [facility] Last Admin: 03/05/18 09:51 Dose: 81 mg Atorvastatin Calcium (Lipitor -) 80 mg PO HS [facility] Last Admin: 03/05/18 22:11 Dose: 80 mg Calcium Acetate (Phoslo -) 667 mg PO TIDCM [facility] Last Admin: 03/06/18 07:52 Dose: 667 mg Heparin Sodium (Porcine) (Heparin -) 5,000 unit SQ TID [facility] Last Admin: 03/06/18 06:11 Dose: 5,000 unit Piperacillin Sod/Tazobactam (Sod 2.25 gm/ Dextrose) 50 mls @ 100 mls/hr IVPB Q8H-IV [facility]; Protocol Last Admin: 03/06/18 01:22 Dose: 100 mls/hr Insulin Aspart (Novolog Vial Sliding Scale -) 1 vial SQ [facility]; Protocol Last Admin: 03/06/18 06:12 Dose: Not Given Insulin Detemir (Levemir Vial) 5 units SQ [facility] Last Admin: 03/05/18 22:12 Dose: 5 unit Levothyroxine Sodium (Synthroid -) 25 mcg PO DAILY@0700 [facility] Last Admin: 03/06/18 06:11 Dose: 25 mcg Lisinopril (Prinivil) 10 mg PO DAILY [facility] Last Admin: 03/05/18 09:51 Dose: 10 mg Metoprolol Succinate (Toprol Xl -) 100 mg PO DAILY [facility] Last Admin: 03/05/18 09:51 Dose: 100 mg Multivitamins/Minerals/Vitamin C (Tab-A-Vit -) 1 tab PO DAILY [facility] Last Admin: 03/05/18 09:51 Dose: 1 tab Pantoprazole Sodium (Protonix -) 40 mg PO DAILY [facility] Last Admin: 03/05/18 09:51 Dose: 40 mg Senna (Senna -) 1 tab PO [facility] Last Admin: 03/05/18 22:11 Dose: 1 tab Sertraline HCl (Zoloft -) 25 mg PO [facility] Last Admin: 03/05/18 22:11 Dose: 25 mg CBC, BMP 03/03/18 10:20 03/03/18 14:20 Microbiology 02/28/18 21:10 Blood Culture - Final Blood - Peripheral Venous NO GROWTH AFTER 5 DAYS INCUBATION 02/28/18 21:10 Blood Culture - Final Blood - Peripheral Venous NO GROWTH AFTER 5 DAYS INCUBATION cxr--just done Physical Exam Constitutional: Yes: Calm, comfortable.Mild short of breath Eyes: Yes: Conjunctiva Clear HENT: Yes: wnl Neck: Yes: Supple, no jvd Cardiovascular: Yes: S1, S2 rrr Respiratory: Yes: Diminished at bases Gastrointestinal: Yes: Soft/ non tender. bs + Musculoskeletal: Yes: Other (left toe erythema and swelling) Edema: LLE: 1+, RLE: 1+ Neurological: Yes: alert and awake Psychiatric: Yes: Oriented Imaging - Results Chest X-ray: Report pending--- today Assessment/Plan 1. ESRD 3. DM 4. CAD 5. PVD 6. Anemia 7. Pleural Effusion 8. Ischemic toes clinically stable. still short of breath Follow-up chest x-ray continue present care monitor blood sugar Abx Angiogram planned -- to be coordinated with renal likely angiogram tomorrow Pulmonary and cardiac to follow will follow Problem List - Problems (1) ASHD (arteriosclerotic heart disease) Code(s): I25.10 - ATHSCL HEART DISEASE OF [place] CORONARY ARTERY W/O ANG PCTRS (2) COPD (chronic obstructive pulmonary disease) Code(s): J44.9 - CHRONIC OBSTRUCTIVE PULMONARY DISEASE, UNSPECIFIED (3) Diabetes Code(s): E11.9 - TYPE 2 DIABETES MELLITUS WITHOUT COMPLICATIONS (4) Dyspnea Code(s): R06.00 - DYSPNEA, UNSPECIFIED (5) ESRD (end stage renal disease) Code(s): N18.6 - END STAGE RENAL DISEASE (6) Gangrene Code(s): I96 - [place], NOT ELSEWHERE CLASSIFIED (7) HTN (hypertension) Code(s): I10 - ESSENTIAL (PRIMARY) HYPERTENSION (8) PVD (peripheral vascular disease) Code(s): I73.9 - PERIPHERAL VASCULAR DISEASE, UNSPECIFIED (9) S/P CABG (coronary artery bypass graft) Code(s): Z95.1 - PRESENCE OF AORTOCORONARY BYPASS GRAFT
[2018-03-06] MEDS: PANTOPRAZOLE 40 MG TABLET (FP) PO SCH (09:47)
[2018-03-06] MEDS: LISINOPRIL 10 MG TABLET (FP) PO SCH (09:47)
[2018-03-06] MEDS: MULTIVITAMINS (DAILY MVI) TABLET (FP) PO SCH (09:47)
[2018-03-06] MEDS: ASPIRIN 81 MG CHEWABLE TABLETS PO SCH (09:48)
[2018-03-06] MEDS: ACETAMINOPHEN 325 MG TABLET (FP) PO PRN (10:15)
--- NOTE | 2018-03-06 10:18 | SPA.PREOP ---
- PRE-OP NOTE Dx: Necrotic right toe Planned Procedure: LLE angiogram, possible plasty, possible stent Surgeon: Robel Nieves Consent: To be obtained by surgeon after risks, benefits and alternatives explained to patient. Last Vital Signs Temp Pulse Resp BP Pulse Ox 98.7 F 80 20 147/58 98 03/06/18 05:13 03/06/18 05:13 03/06/18 05:13 03/06/18 05:13 03/05/18 21:00 Lab Results WBC 8.2 K/mm3 (4.0-10.0) 03/03/18 10:20 RBC 3.05 M/mm3 (4.00-5.60) L 03/03/18 10:20 Hgb 8.8 GM/dL (11.7-16.9) L 03/03/18 10:20 Hct 27.0 % (35.4-49) L 03/03/18 10:20 MCV 88.7 fl (80-96) 03/03/18 10:20 MCHC 32.4 g/dl (32.0-35.9) 03/03/18 10:20 RDW 17.6 % (11.9-15.9) H 03/03/18 10:20 Plt Count 190 K/MM3 (134-434) 03/03/18 10:20 Sodium 139 mmol/L (136-145) 03/03/18 10:20 Potassium 4.5 mmol/L (3.5-5.1) 03/03/18 10:20 Chloride 99 mmol/L (98-107) 03/03/18 10:20 Carbon Dioxide 31 mmol/L (21-32) 03/03/18 10:20 Anion Gap 9 (8-16) 03/03/18 10:20 BUN 7 mg/dL (7-18) D 03/03/18 14:20 Creatinine 1.6 mg/dL (0.7-1.3) H D 03/03/18 14:20 Random Glucose 184 mg/dL (74-106) H D 03/03/18 10:20 Calcium 8.0 mg/dL (8.5-10.1) L 03/03/18 10:20 INR 1.21 (0.82-1.09) H 02/28/18 21:10 - ASSESSMENT/PLAN Problem List - Problems (1) Gangrene Assessment/Plan: 1. NPO after midnight except po meds 2. GI/DVT PPX 3. Medical optimization / clearance 4. Cardio optimization / clearance Code(s): I96 - GANGRENE, NOT ELSEWHERE CLASSIFIED (2) ESRD (end stage renal disease) Code(s): N18.6 - END STAGE RENAL DISEASE
[2018-03-06] MEDS ORDERED: VANCOMYCIN 1,000 MG in DEXTROSE 5%-WATER - 250 ML IVPB ONE (13:21)
--- NOTE | 2018-03-06 13:21 | PN ---
Progress Note, Physician History of Present Illness: Seen on hemodialysis C/O dyspnea at rest No c/o foot pain at present No c/o fever/ chills Afebrile WBC WNL - Current Medication List Current Medications: Active Medications Acetaminophen (Tylenol -) 650 mg PO Q6H PRN PRN Reason: PAIN Last Admin: 03/06/18 10:15 Dose: 650 mg Acetaminophen (Tylenol -) 325 mg PO Q12H PRN PRN Reason: PAIN LEVEL 6-10 Last Admin: 03/02/18 18:48 Dose: 325 mg Albuterol Sulfate (Ventolin 0.083% Nebulizer Soln -) 1 amp NEB Q4H PRN PRN Reason: SHORT OF BREATH/WHEEZING Last Admin: 03/06/18 06:49 Dose: 1 amp Albuterol Sulfate (Ventolin 0.083% Nebulizer Soln -) 1 amp NEB Q3H PRN PRN Reason: SHORT OF BREATH/WHEEZING Last Admin: 03/05/18 23:53 Dose: 1 amp Aspirin (Asa -) 81 mg PO DAILY [facility] Last Admin: 03/06/18 09:48 Dose: 81 mg Atorvastatin Calcium (Lipitor -) 80 mg PO HS [facility] Last Admin: 03/05/18 22:11 Dose: 80 mg Calcium Acetate (Phoslo -) 667 mg PO TIDCM [facility] Last Admin: 03/06/18 12:05 Dose: 667 mg Heparin Sodium (Porcine) (Heparin -) 5,000 unit SQ TID [facility] Last Admin: 03/06/18 06:11 Dose: 5,000 unit Piperacillin Sod/Tazobactam (Sod 2.25 gm/ Dextrose) 50 mls @ 100 mls/hr IVPB Q8H-IV [facility]; Protocol Last Admin: 03/06/18 09:48 Dose: 100 mls/hr Insulin Aspart (Novolog Vial Sliding Scale -) 1 vial SQ ACHS [facility]; Protocol Last Admin: 03/06/18 12:01 Dose: 4 units Insulin Detemir (Levemir Vial) 5 units SQ HS [facility] Last Admin: 03/05/18 22:12 Dose: 5 unit Levothyroxine Sodium (Synthroid -) 25 mcg PO DAILY@0700 [facility] Last Admin: 03/06/18 06:11 Dose: 25 mcg Lisinopril (Prinivil) 10 mg PO DAILY [facility] Last Admin: 03/06/18 09:47 Dose: 10 mg Metoprolol Succinate (Toprol Xl -) 100 mg PO DAILY [facility] Last Admin: 03/06/18 09:48 Dose: 100 mg Multivitamins/Minerals/Vitamin C (Tab-A-Vit -) 1 tab PO DAILY [facility] Last Admin: 03/06/18 09:47 Dose: 1 tab Pantoprazole Sodium (Protonix -) 40 mg PO DAILY [facility] Last Admin: 03/06/18 09:47 Dose: 40 mg Senna (Senna -) 1 tab PO HS [facility] Last Admin: 03/05/18 22:11 Dose: 1 tab Sertraline HCl (Zoloft -) 25 mg PO HS [facility] Last Admin: 03/05/18 22:11 Dose: 25 mg - Objective Vital Signs: Vital Signs Temperature 98.4 F 03/06/18 10:00 Pulse Rate 80 03/06/18 12:25 Respiratory Rate 18 03/06/18 12:25 Blood Pressure 152/71 03/06/18 12:25 O2 Sat by Pulse Oximetry (%) 98 03/06/18 09:00 Constitutional: Yes: No Distress Eyes: Yes: Conjunctiva Clear Cardiovascular: Yes: Regular Rate and Rhythm, S1, S2 Respiratory: Yes: Diminished Gastrointestinal: Yes: Normal Bowel Sounds, Soft. No: Tenderness Extremities: Yes: Other (L great toe with dry gangrene. No drainage or foul odor. Foot swollen, hyperemic.) Labs: CBC, BMP 03/03/18 10:20 03/03/18 14:20 INR, PTT INR 1.21 (0.82-1.09) H 02/28/18 21:10 Assessment/Plan Gangrene , great toe ESRD Continue zosyn Redose vancomycin For angio am
--- NOTE | 2018-03-06 13:21 | PN ---
Progress Note (short form) - Note Progress Note: Breathing continues to slowly improve. Less cough. No CP. Intake & Output 03/03/18 03/04/18 03/05/18 03/06/18 23:59 23:59 23:59 23:59 Intake Total 100 290 250 150 Output Total 200 Balance -100 290 250 150 Weight 164 lb 2 oz 165 lb 162 lb 5 oz 162 lb 7 oz Last Vital Signs Temp Pulse Resp BP Pulse Ox 98.4 F 80 18 152/71 98 03/06/18 10:00 03/06/18 12:25 03/06/18 12:25 03/06/18 12:25 03/06/18 09:00 Active Medications Acetaminophen (Tylenol -) 650 mg PO Q6H PRN PRN Reason: PAIN Last Admin: 03/06/18 10:15 Dose: 650 mg Acetaminophen (Tylenol -) 325 mg PO Q12H PRN PRN Reason: PAIN LEVEL 6-10 Last Admin: 03/02/18 18:48 Dose: 325 mg Albuterol Sulfate (Ventolin 0.083% Nebulizer Soln -) 1 amp NEB Q4H PRN PRN Reason: SHORT OF BREATH/WHEEZING Last Admin: 03/06/18 06:49 Dose: 1 amp Albuterol Sulfate (Ventolin 0.083% Nebulizer Soln -) 1 amp NEB Q3H PRN PRN Reason: SHORT OF BREATH/WHEEZING Last Admin: 03/05/18 23:53 Dose: 1 amp Aspirin (Asa -) 81 mg PO DAILY [facility] Last Admin: 03/06/18 09:48 Dose: 81 mg Atorvastatin Calcium (Lipitor -) 80 mg PO HS [facility] Last Admin: 03/05/18 22:11 Dose: 80 mg Calcium Acetate (Phoslo -) 667 mg PO TIDCM [facility] Last Admin: 03/06/18 12:05 Dose: 667 mg Heparin Sodium (Porcine) (Heparin -) 5,000 unit SQ TID [facility] Last Admin: 03/06/18 06:11 Dose: 5,000 unit Piperacillin Sod/Tazobactam (Sod 2.25 gm/ Dextrose) 50 mls @ 100 mls/hr IVPB Q8H-IV [facility]; Protocol Last Admin: 03/06/18 09:48 Dose: 100 mls/hr Insulin Aspart (Novolog Vial Sliding Scale -) 1 vial SQ ACHS [facility]; Protocol Last Admin: 03/06/18 12:01 Dose: 4 units Insulin Detemir (Levemir Vial) 5 units SQ [facility] Last Admin: 03/05/18 22:12 Dose: 5 unit Levothyroxine Sodium (Synthroid -) 25 mcg PO DAILY@0700 [facility] Last Admin: 03/06/18 06:11 Dose: 25 mcg Lisinopril (Prinivil) 10 mg PO DAILY [facility] Last Admin: 03/06/18 09:47 Dose: 10 mg Metoprolol Succinate (Toprol Xl -) 100 mg PO DAILY [facility] Last Admin: 03/06/18 09:48 Dose: 100 mg Multivitamins/Minerals/Vitamin C (Tab-A-Vit -) 1 tab PO DAILY [facility] Last Admin: 03/06/18 09:47 Dose: 1 tab Pantoprazole Sodium (Protonix -) 40 mg PO DAILY [facility] Last Admin: 03/06/18 09:47 Dose: 40 mg Senna (Senna -) 1 tab PO [facility] Last Admin: 03/05/18 22:11 Dose: 1 tab Sertraline HCl (Zoloft -) 25 mg PO [facility] Last Admin: 03/05/18 22:11 Dose: 25 mg Gen: NAD at rest Heart: RRR Lung: scattered rhonchi Abd: soft, nontender Ext: no edema Laboratory Results - last 24 hr 03/01/18 03/05/18 03/05/18 15:30 16:48 22:09 POC Glucometer 188 147 Hep C Ab Diagnostic 03/06/18 03/06/18 06:10 11:09 POC Glucometer 139 208 Hep C Ab Diagnostic A/P Acute on Chronic Systolic Heart Failure ESRD on HD Left Pleural Effusion COPD CAD s/p CABG HTN DM Left toe gangrene - antibiotics per ID - continue HD with ultrafiltration - inhaled bronchodilators - O2 to keep Spo2 >90% - DVT prophylaxis Dr Ramos
[2018-03-06 13:40] LABS: BASO % 0.5 % (0-2.0); EOS % 1.6 % (0-4.5); HEMATOCRIT 26.9 % (35.4-49); HEMOGLOBIN 8.7 GM/dL (11.7-16.9); LYMPH % 6.5 % (8-40); MCH 28.9 pg (25.7-33.7); MCHC 32.2 g/dl (32.0-35.9); MEAN CELL VOLUME 89.5 fl (80-96); MEAN PLT VOLUME 9.1 fl (7.5-11.1); MONO % 8.6 % (3.8-10.2); NEUT % 82.8 % (42.8-82.8); PLATELET COUNT 167 K/MM3 (134-434); RDW 18.7 % (11.9-15.9); WHITE BLOOD COUNT 10.2 K/mm3 (4.0-10.0)
[2018-03-06 14:23] LABS: ANION GAP 9 (8-16); BLOOD UREA NITROGEN 24 mg/dL (7-18); CHLORIDE 100 mmol/L (98-107); CO2 28 mmol/L (21-32); GLUCOSE,RANDOM 196 mg/dL (74-106); POTASSIUM 4.4 mmol/L (3.5-5.1); SODIUM 137 mmol/L (136-145)
--- NOTE | 2018-03-06 16:26 | PN ---
Progress Note, Physician History of Present Illness: Pt seen and examined at bedside. He is awake and alert. He is currently getting HD. - Current Medication List Current Medications: Active Medications Acetaminophen (Tylenol -) 650 mg PO Q6H PRN PRN Reason: PAIN Last Admin: 03/06/18 10:15 Dose: 650 mg Acetaminophen (Tylenol -) 325 mg PO Q12H PRN PRN Reason: PAIN LEVEL 6-10 Last Admin: 03/02/18 18:48 Dose: 325 mg Albuterol Sulfate (Ventolin 0.083% Nebulizer Soln -) 1 amp NEB Q4H PRN PRN Reason: SHORT OF BREATH/WHEEZING Last Admin: 03/06/18 06:49 Dose: 1 amp Albuterol Sulfate (Ventolin 0.083% Nebulizer Soln -) 1 amp NEB Q3H PRN PRN Reason: SHORT OF BREATH/WHEEZING Last Admin: 03/05/18 23:53 Dose: 1 amp Aspirin (Asa -) 81 mg PO DAILY [facility] Last Admin: 03/06/18 09:48 Dose: 81 mg Atorvastatin Calcium (Lipitor -) 80 mg PO HS [facility] Last Admin: 03/05/18 22:11 Dose: 80 mg Calcium Acetate (Phoslo -) 667 mg PO TIDCM [facility] Last Admin: 03/06/18 12:05 Dose: 667 mg Heparin Sodium (Porcine) (Heparin -) 5,000 unit SQ TID [facility] Last Admin: 03/06/18 16:08 Dose: Not Given Piperacillin Sod/Tazobactam (Sod 2.25 gm/ Dextrose) 50 mls @ 100 mls/hr IVPB Q8H-IV [facility]; Protocol Last Admin: 03/06/18 09:48 Dose: 100 mls/hr Insulin Aspart (Novolog Vial Sliding Scale -) 1 vial SQ ACHS [facility]; Protocol Last Admin: 03/06/18 12:01 Dose: 4 units Insulin Detemir (Levemir Vial) 5 units SQ [facility] Last Admin: 03/05/18 22:12 Dose: 5 unit Levothyroxine Sodium (Synthroid -) 25 mcg PO DAILY@0700 [facility] Last Admin: 03/06/18 06:11 Dose: 25 mcg Lisinopril (Prinivil) 10 mg PO DAILY [facility] Last Admin: 03/06/18 09:47 Dose: 10 mg Metoprolol Succinate (Toprol Xl -) 100 mg PO DAILY [facility] Last Admin: 03/06/18 09:48 Dose: 100 mg Multivitamins/Minerals/Vitamin C (Tab-A-Vit -) 1 tab PO DAILY [facility] Last Admin: 03/06/18 09:47 Dose: 1 tab Pantoprazole Sodium (Protonix -) 40 mg PO DAILY [facility] Last Admin: 03/06/18 09:47 Dose: 40 mg Senna (Senna -) 1 tab PO [facility] Last Admin: 03/05/18 22:11 Dose: 1 tab Sertraline HCl (Zoloft -) 25 mg PO [facility] Last Admin: 03/05/18 22:11 Dose: 25 mg - Objective Vital Signs: Vital Signs Temperature 98.4 F 03/06/18 10:00 Pulse Rate 80 03/06/18 15:30 Respiratory Rate 18 03/06/18 15:30 Blood Pressure 167/81 03/06/18 15:30 O2 Sat by Pulse Oximetry (%) 98 03/06/18 09:00 Constitutional: Yes: Calm Eyes: Yes: Conjunctiva Clear HENT: Yes: Atraumatic Neck: Yes: Supple Cardiovascular: Yes: S1, S2 Respiratory: Yes: CTA Bilaterally Gastrointestinal: Yes: Normal Bowel Sounds, Soft Genitourinary: Yes: WNL Extremities: Yes: Other (left foot toe ulcer) Neurological: Yes: Oriented Psychiatric: Yes: Oriented Labs: CBC, BMP 03/06/18 12:30 03/06/18 12:30 INR, PTT INR 1.21 (0.82-1.09) H 02/28/18 21:10 Problem List - Problems (1) ESRD (end stage renal disease) Code(s): N18.6 - END STAGE RENAL DISEASE (2) Hyperkalemia Code(s): E87.5 - HYPERKALEMIA Assessment/Plan Current Medications Generic Name Dose Route Start Last Admin Trade Name Freq PRN Reason Stop Dose Admin Acetaminophen 650 mg 03/01/18 00:27 03/06/18 10:15 Tylenol - PO 650 mg Q6H PRN Administration PAIN Acetaminophen 325 mg 03/01/18 00:32 03/02/18 18:48 Tylenol - PO 325 mg Q12H PRN Administration PAIN LEVEL 6-10 Albuterol Sulfate 1 amp 03/05/18 11:45 03/06/18 06:49 Ventolin 0.083% Nebulizer Soln - NEB 1 amp Q4H PRN Administration SHORT OF BREATH/WHEEZING Albuterol Sulfate 1 amp 03/05/18 11:56 03/05/18 23:53 Ventolin 0.083% Nebulizer Soln - NEB 1 amp Q3H PRN Administration SHORT OF BREATH/WHEEZING Aspirin 81 mg 03/01/18 10:00 03/06/18 09:48 Asa - PO 81 mg DAILY [facility] Administration Atorvastatin Calcium 80 mg 03/01/18 22:00 03/05/18 22:11 Lipitor - PO 80 mg HS [facility] Administration Calcium Acetate 667 mg 03/01/18 08:00 03/06/18 12:05 Phoslo - PO 667 mg TIDCM [facility] Administration Heparin Sodium (Porcine) 5,000 unit 03/01/18 06:00 03/06/18 16:08 Heparin - SQ Not Given TID [facility] Piperacillin Sod/Tazobactam 50 mls @ 100 mls/hr 03/01/18 18:00 03/06/18 09:48 Sod 2.25 gm/ Dextrose IVPB 100 mls/hr Q8H-IV [facility] Administration Protocol Insulin Aspart 1 vial 03/04/18 13:58 03/06/18 12:01 Novolog Vial Sliding Scale - SQ 4 units ACHS [facility] Administration Protocol Insulin Detemir 5 units 03/04/18 22:00 03/05/18 22:12 Levemir Vial SQ 5 unit HS [facility] Administration Levothyroxine Sodium 25 mcg 03/01/18 07:00 03/06/18 06:11 Synthroid - PO 25 mcg DAILY@0700 [facility] Administration Lisinopril 10 mg 03/01/18 10:00 03/06/18 09:47 Prinivil PO 10 mg DAILY [facility] Administration Metoprolol Succinate 100 mg 03/01/18 10:00 03/06/18 09:48 Toprol Xl - PO 100 mg DAILY [facility] Administration Multivitamins/Minerals/Vitamin C 1 tab 03/01/18 10:00 03/06/18 09:47 Tab-A-Vit - PO 1 tab DAILY [facility] Administration Pantoprazole Sodium 40 mg 03/01/18 10:00 03/06/18 09:47 Protonix - PO 40 mg DAILY [facility] Administration Senna 1 tab 03/01/18 22:00 03/05/18 22:11 Senna - PO 1 tab HS [facility] Administration Sertraline HCl 25 mg 03/01/18 22:00 03/05/18 22:11 Zoloft - PO 25 mg HS [facility] Administration Impression 1. ESRD 2. hyperkalemia 3. DM 4. CAD 5. PVD 6. DFU 7. anemia Plan -pt tolerating HD - vascular for angio - cont wound care - abx per ID - will follow - Right avF, 3:30, 2 k bath, 450 abf, aranesp 35 mcg received on Monday
[2018-03-06] MEDS ORDERED: INSULIN (NOVOLOG) ASPART 100 UNITS/ML 10ML VIAL ONE (21:38)
[2018-03-06] MEDS: INSULIN (LEVEMIR) 100 UNITS/ML UNITS SQ SCH (22:35)
[2018-03-06] MEDS: ATORVASTATIN CA 80 MG TABLET (FP) PO SCH (22:36)
[2018-03-06] MEDS: SERTRALINE HCL 25 MG TABLET (FP) PO SCH (22:36)
[2018-03-06] MEDS: SENNOSIDES 8.6MG TABLET (FP) PO SCH (22:36)
[2018-03-07] MEDS: ALBUTEROL SO4 0.083% IH SOL 2.5 MG/3 ML VIAL.NEB. NEB PRN ×3 (00:40→20:28)
[2018-03-07] MEDS ORDERED: DEXTROSE 5%-WATER - 50 ML IVPB ONE ×3 (01:26→17:39)
[2018-03-07] MEDS ORDERED: PIPERACILLIN/TAZOBACTAM 2.25 GM VIAL IVPB ONE ×4 (01:26→17:38)
[2018-03-07] MEDS: ACETAMINOPHEN 325 MG TABLET (FP) PO PRN ×2 (01:29→23:18)
[2018-03-07] MEDS: PIPERACILLIN/TAZOB 2.25 GM 2.25 GM in DEXTROSE 5%-WATER - 50 ML IVPB SCH ×3 (01:30→18:47)
[2018-03-07] MEDS: HEPARIN NA (PORCINE) 5,000 UNITS/ML 1ML VIAL SQ SCH ×3 (05:49→23:13)
[2018-03-07] MEDS: INSULIN SLIDING SCALE (NOVOLOG) 1 VIAL SQ SCH ×4 (06:01→23:24)
[2018-03-07] MEDS: LEVOTHYROXINE NA 25 MCG TABLET (FP) PO SCH (06:02)
[2018-03-07] MEDS ORDERED: INSULIN (NOVOLOG) ASPART 100 UNITS/ML 10ML VIAL ONE (06:55)
[2018-03-07] MEDS: CALCIUM ACETATE 667 MG CAPSULE (FP) PO SCH ×3 (08:00→18:48)
[2018-03-07 08:10] LABS: CHLORIDE 102 mmol/L (98-107); SODIUM 140 mmol/L (136-145)
[2018-03-07 08:18] LABS: ALK PHOS 115 U/L (45-117); ANION GAP 7 (8-16); BILIRUBIN,TOTAL 0.5 mg/dL (0.2-1.0); BLOOD UREA NITROGEN 15 mg/dL (7-18); CALCIUM 8.1 mg/dL (8.5-10.1); CO2 31 mmol/L (21-32); CREATININE 4.2 mg/dL (0.7-1.3); GLUCOSE,RANDOM 61 mg/dL (74-106); SGPT/ALT 12 U/L (12-78); TOT PROT 6.6 g/dl (6.4-8.2)
[2018-03-07 08:26] LABS: POTASSIUM 3.9 mmol/L (3.5-5.1); SGOT/AST 29 U/L (15-37)
[2018-03-07] MEDS: LISINOPRIL 10 MG TABLET (FP) PO SCH (09:47)
[2018-03-07] MEDS: PANTOPRAZOLE 40 MG TABLET (FP) PO SCH (09:47)
[2018-03-07] MEDS: MULTIVITAMINS (DAILY MVI) TABLET (FP) PO SCH (10:00)
[2018-03-07] MEDS ORDERED: SODIUM CHLORIDE 250 ML IV PRN (10:00)
[2018-03-07] MEDS: ASPIRIN 81 MG CHEWABLE TABLETS PO SCH (10:00)
[2018-03-07] MEDS ORDERED: HEPARIN NA (PORCINE) 5,000 UNITS/ML 1ML VIAL ONE ×2 (10:16→10:55)
[2018-03-07] MEDS ORDERED: LIDOCAINE HCL 1%, 10 MG/ML (20ML VIAL) ONE (10:17)
--- NOTE | 2018-03-07 10:28 | PN ---
Progress Note, Physician Chief Complaint: for angiogram today - Current Medication List Current Medications: Active Medications Acetaminophen (Tylenol -) 650 mg PO Q6H PRN PRN Reason: PAIN Last Admin: 03/07/18 01:29 Dose: 650 mg Acetaminophen (Tylenol -) 325 mg PO Q12H PRN PRN Reason: PAIN LEVEL 6-10 Last Admin: 03/02/18 18:48 Dose: 325 mg Albuterol Sulfate (Ventolin 0.083% Nebulizer Soln -) 1 amp NEB Q4H PRN PRN Reason: SHORT OF BREATH/WHEEZING Last Admin: 03/07/18 00:40 Dose: 1 amp Albuterol Sulfate (Ventolin 0.083% Nebulizer Soln -) 1 amp NEB Q3H PRN PRN Reason: SHORT OF BREATH/WHEEZING Last Admin: 03/05/18 23:53 Dose: 1 amp Aspirin (Asa -) 81 mg PO DAILY [facility] Last Admin: 03/06/18 09:48 Dose: 81 mg Atorvastatin Calcium (Lipitor -) 80 mg PO HS [facility] Last Admin: 03/06/18 22:36 Dose: 80 mg Calcium Acetate (Phoslo -) 667 mg PO TIDCM [facility] Last Admin: 03/06/18 17:25 Dose: 667 mg Heparin Sodium (Porcine) (Heparin -) 5,000 unit SQ TID [facility] Last Admin: 03/07/18 05:49 Dose: Not Given Piperacillin Sod/Tazobactam (Sod 2.25 gm/ Dextrose) 50 mls @ 100 mls/hr IVPB Q8H-IV [facility]; Protocol Last Admin: 03/07/18 09:47 Dose: 100 mls/hr Insulin Aspart (Novolog Vial Sliding Scale -) 1 vial SQ ACHS [facility]; Protocol Last Admin: 03/07/18 06:01 Dose: Not Given Insulin Detemir (Levemir Vial) 5 units SQ HS [facility] Last Admin: 03/06/18 22:35 Dose: 5 unit Levothyroxine Sodium (Synthroid -) 25 mcg PO DAILY@0700 [facility] Last Admin: 03/07/18 06:02 Dose: 25 mcg Lisinopril (Prinivil) 10 mg PO DAILY [facility] Last Admin: 03/07/18 09:47 Dose: 10 mg Metoprolol Succinate (Toprol Xl -) 100 mg PO DAILY [facility] Last Admin: 03/07/18 09:47 Dose: 100 mg Multivitamins/Minerals/Vitamin C (Tab-A-Vit -) 1 tab PO DAILY [facility] Last Admin: 03/06/18 09:47 Dose: 1 tab Pantoprazole Sodium (Protonix -) 40 mg PO DAILY [facility] Last Admin: 03/07/18 09:47 Dose: 40 mg Senna (Senna -) 1 tab PO HS [facility] Last Admin: 03/06/18 22:36 Dose: 1 tab Sertraline HCl (Zoloft -) 25 mg PO HS [facility] Last Admin: 03/06/18 22:36 Dose: 25 mg - Objective Vital Signs: Vital Signs Temperature 98.1 F 03/07/18 09:09 Pulse Rate 80 03/07/18 09:09 Respiratory Rate 18 03/07/18 09:09 Blood Pressure 152/62 03/07/18 09:09 O2 Sat by Pulse Oximetry (%) 98 03/07/18 09:00 Constitutional: Yes: No Distress, Calm Cardiovascular: Yes: Regular Rate and Rhythm Respiratory: Yes: Diminished Gastrointestinal: Yes: Normal Bowel Sounds, Soft. No: Tenderness Extremities: Yes: Other (left big toe gangrene tip) Edema: No Labs: CBC, BMP 03/06/18 12:30 03/07/18 06:00 INR, PTT INR 1.21 (0.82-1.09) H 02/28/18 21:10 Problem List - Problems (1) ASHD (arteriosclerotic heart disease) Code(s): I25.10 - ATHSCL HEART DISEASE OF [place] CORONARY ARTERY W/O ANG PCTRS (2) Diabetes Code(s): E11.9 - TYPE 2 DIABETES MELLITUS WITHOUT COMPLICATIONS Qualifiers: Diabetes mellitus type: type 2 (3) ESRD (end stage renal disease) Code(s): N18.6 - END STAGE RENAL DISEASE (4) Gangrene Code(s): I96 - GANGRENE, NOT ELSEWHERE CLASSIFIED (5) HTN (hypertension) Code(s): I10 - ESSENTIAL (PRIMARY) HYPERTENSION Qualifiers: Hypertension type: essential hypertension Qualified Code(s): I10 - Essential (primary) hypertension Assessment/Plan Assessment/Plan 1. ESRD 3. DM 4. CAD 5. PVD 6. Anemia 7. Pleural Effusion 8. Ischemic toes no SOB continue present care monitor blood sugar Abx Angiogram today
[2018-03-07] MEDS ORDERED: MIDAZOLAM HCL 2 MG/2 ML SINGLE DOSE VIAL ONE (10:34)
[2018-03-07] MEDS ORDERED: LIDOCAINE HCL 1%, 10 MG/ML (20ML VIAL) INF ONE ×2 (11:13)
--- NOTE | 2018-03-07 11:39 | PN ---
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 - Current Medication List Current Medications: Active Medications Acetaminophen (Tylenol -) 650 mg PO Q6H PRN PRN Reason: PAIN Last Admin: 03/07/18 01:29 Dose: 650 mg Acetaminophen (Tylenol -) 325 mg PO Q12H PRN PRN Reason: PAIN LEVEL 6-10 Last Admin: 03/02/18 18:48 Dose: 325 mg Albuterol Sulfate (Ventolin 0.083% Nebulizer Soln -) 1 amp NEB Q4H PRN PRN Reason: SHORT OF BREATH/WHEEZING Last Admin: 03/07/18 00:40 Dose: 1 amp Albuterol Sulfate (Ventolin 0.083% Nebulizer Soln -) 1 amp NEB Q3H PRN PRN Reason: SHORT OF BREATH/WHEEZING Last Admin: 03/05/18 23:53 Dose: 1 amp Aspirin (Asa -) 81 mg PO DAILY [facility] Last Admin: 03/06/18 09:48 Dose: 81 mg Atorvastatin Calcium (Lipitor -) 80 mg PO HS [facility] Last Admin: 03/06/18 22:36 Dose: 80 mg Calcium Acetate (Phoslo -) 667 mg PO TIDCM [facility] Last Admin: 03/06/18 17:25 Dose: 667 mg Heparin Sodium (Porcine) (Heparin -) 5,000 unit SQ TID [facility] Last Admin: 03/07/18 05:49 Dose: Not Given Piperacillin Sod/Tazobactam (Sod 2.25 gm/ Dextrose) 50 mls @ 100 mls/hr IVPB Q8H-IV [facility]; Protocol Last Admin: 03/07/18 09:47 Dose: 100 mls/hr Insulin Aspart (Novolog Vial Sliding Scale -) 1 vial SQ ACHS [facility]; Protocol Last Admin: 03/07/18 06:01 Dose: Not Given Insulin Detemir (Levemir Vial) 5 units SQ HS [facility] Last Admin: 03/06/18 22:35 Dose: 5 unit Levothyroxine Sodium (Synthroid -) 25 mcg PO DAILY@0700 [facility] Last Admin: 03/07/18 06:02 Dose: 25 mcg Lisinopril (Prinivil) 10 mg PO DAILY [facility] Last Admin: 03/07/18 09:47 Dose: 10 mg Metoprolol Succinate (Toprol Xl -) 100 mg PO DAILY [facility] Last Admin: 03/07/18 09:47 Dose: 100 mg Multivitamins/Minerals/Vitamin C (Tab-A-Vit -) 1 tab PO DAILY [facility] Last Admin: 03/06/18 09:47 Dose: 1 tab Pantoprazole Sodium (Protonix -) 40 mg PO DAILY [facility] Last Admin: 03/07/18 09:47 Dose: 40 mg Senna (Senna -) 1 tab PO HS [facility] Last Admin: 03/06/18 22:36 Dose: 1 tab Sertraline HCl (Zoloft -) 25 mg PO HS [facility] Last Admin: 03/06/18 22:36 Dose: 25 mg - Objective Vital Signs: Vital Signs Temperature 98.1 F 03/07/18 09:09 Pulse Rate 80 03/07/18 09:09 Respiratory Rate 18 03/07/18 09:09 Blood Pressure 152/62 03/07/18 09:09 O2 Sat by Pulse Oximetry (%) 98 03/07/18 09:00 Labs: CBC, BMP 03/06/18 12:30 03/07/18 06:00 INR, PTT INR 1.21 (0.82-1.09) H 02/28/18 21:10 Problem List - Problems (1) ASHD (arteriosclerotic heart disease) Code(s): I25.10 - ATHSCL HEART DISEASE OF [place] CORONARY ARTERY W/O ANG PCTRS (2) CHF (congestive heart failure), NYHA class IV Code(s): I50.9 - HEART FAILURE, UNSPECIFIED Qualifiers: Congestive heart failure type: systolic Congestive heart failure chronicity : acute on chronic Qualified Code(s): I50.23 - Acute on chronic systolic ( congestive) heart failure (3) Diabetes Code(s): E11.9 - TYPE 2 DIABETES MELLITUS WITHOUT COMPLICATIONS Qualifiers: Diabetes mellitus type: type 2 (4) ESRD (end stage renal disease) Code(s): N18.6 - END STAGE RENAL DISEASE (5) Gangrene Code(s): I96 - GANGRENE, NOT ELSEWHERE CLASSIFIED (6) HTN (hypertension) Code(s): I10 - ESSENTIAL (PRIMARY) HYPERTENSION Qualifiers: Hypertension type: essential hypertension Qualified Code(s): I10 - Essential (primary) hypertension (7) PVD (peripheral vascular disease) Code(s): I73.9 - PERIPHERAL VASCULAR DISEASE, UNSPECIFIED (8) Pleural effusion Code(s): J90 - PLEURAL EFFUSION, NOT ELSEWHERE CLASSIFIED (9) S/P CABG (coronary artery bypass graft) Code(s): Z95.1 - PRESENCE OF AORTOCORONARY BYPASS GRAFT Assessment/Plan 1. Acute on Chronic Systolic Heart Failure referable to ischemic dilated cardiomyopathy/severe LV systolic dysfunction with left effusion improving 2. CAD post remote MS post CABG angina pectoris, stable 3. Post prophylactic ICD implant ([employer]'s device) 4. HTN 5. IDDM 6. Hypercholesterolemia 7. PAD with left toe gangrene s/p aortogram, LLE angiogram, SFA atherectomy, DCB SFA angioplasty, with sfa stent 8. ESRD on HD with hyperkalemia 9. Anemia 10. Hypothyroidism PLAN: 1. Continue Toprol XL 100 qd 2. Continue Lisinopril 10 qd and titrate dosage as tolerated and hemodynamics permitting 3. Continue ASA 81 qd +/- Plavix, Plavix held for possible surgery but ideally if vascular intervention is planned therapy should be resumed 4. Continue Lipitor 80 qhs 5. Volume removal via UF/HD 6. Device interrogation with [employer]'s and additional information to obtained from [facility] 7. Complete abx course, wound care, DVT and GI prophylaxis
--- NOTE | 2018-03-07 11:42 | OP ---
Operative Note - Note: Operative Date: 03/07/18 Pre-Operative Diagnosis: left great toe gangrene Operation: Aortogram, LLE angiogram, SFA atherectomy, DCB SFA angioplasty, with sfa stent . Post-Operative Diagnosis: Same as Pre-op Surgeon: Robel Nieves Anesthesia: Fractional Estimated Blood Loss (mls): 75 Operative Report Dictated: Yes
[2018-03-07] MEDS ORDERED: ALBUTEROL SO4 0.083% IH SOL 2.5 MG/3 ML VIAL.NEB. NEB PRN (12:24)
[2018-03-07] MEDS ORDERED: ALBUTEROL SO4 2.5/IPRATROPIUM 0.5 INH SOL 3 ML VIAL.NEB. NEB ONE (12:24)
[2018-03-07] MEDS ORDERED: ACETAMINOPHEN 325 MG TABLET (FP) PO PRN (12:24)
[2018-03-07] MEDS: CLOPIDOGREL BISULFATE 75 MG TABLET (FP) PO SCH ×2 (12:25→18:47)
[2018-03-07] MEDS ORDERED: CLOPIDOGREL BISULFATE 75 MG TABLET (FP) ONE (12:27)
--- NOTE | 2018-03-07 12:28 | OP ---
DATE OF OPERATION: 03/07/2018 PREOPERATIVE DIAGNOSIS: Left great toe gangrene. POSTOPERATIVE DIAGNOSIS: Left great toe gangrene. PROCEDURE: Aortogram, left lower extremity angiogram, left superficial femoral artery orbital atherectomy, left superficial femoral artery drug-coated balloon angioplasty, left superficial femoral artery stent placement. SURGEON: Robel Garcia DO ANESTHESIA: Fractional. BLOOD LOSS: 75 mL. FINDINGS: Patient had 95% stenosis of mid to distal SFA. DESCRIPTION OF PROCEDURE: The patient is a 72-year-old male who comes in with left great toe gangrene from [facility]. Preoperatively he had an ultrasound performed in our office showing that he has a severe stenosis in the mid to distal SFA, and it was decided he needed an angiogram. Patient was consented for the procedure, understanding all risks, benefits, alternatives. He was then taken to the operating room, laid on the operating table in supine manner, and the area of the right and left groin was prepped and draped in a sterile surgical manner. We then injected 10 mL of lidocaine 1% over the right common femoral artery. We then took our Micropuncture needle, punctured the right common femoral artery, Micropuncture wire was inserted, Micropuncture sheath was inserted, and a traditional 5-[place] sheath was inserted. We then placed a 0.035 floppy guidewire up into the aorta, followed by an Omniflush catheter. We then shot an aortogram by hand injection showing that the aorta and iliac arteries were without any disease. We then used our 0.035 floppy guidewire, went up and over to the left common femoral artery and our Omniflush catheter followed. We then shot an angiogram of the left lower extremity by hand injection showing that the common femoral artery, the profunda, and the proximal SFA were patent. The mid to distal SFA had a 95% to 98% stenosis for about 4 cm. The distal SFA was patent. Popliteal artery was patent. The TB trunk is patent, but patient has severe tibial disease with collateral circulation getting into the foot in both the PT and the DP. At this point, placed a 0.035 stiff guidewire into the SFA. We then removed our Omniflush catheter, placed a 6 x 45 crossover sheath. IV heparin, 5000 units, was administered to the patient. We then brought our wire down to the stenosis, and we were able to selectively cross the stenosis and placed a wire in the popliteal artery. We then exchanged the wire for a Viper wire. We then performed CSI orbital atherectomy of the area of the SFA that was stenosed. We did it on slow and medium. Thereafter, completion angiogram showed that the vessel was more patent. We then went ahead and used a 6 x 4 drug-coated Lutonix balloon and performed angioplasty of the SFA. Completion angiogram now showed that there was a dissection of the artery, and a 6 x 8 LifeStent was placed. That was ballooned in place using our 6 x 4 drug-coated balloon. Completion angiogram now showed that the SFA was patent. There was good brisk flow through the SFA and into the foot. At this point we brought our sheath up and over. StarClose device was successfully deployed in the right common femoral artery. Pressure was held for 5 minutes. After there was no bleeding, area was wet and dried and Dermabond was placed. The patient tolerated the procedure with no complications. Patient transferred to PACU in stable condition. ROBEL GARCIA DO [id number]
--- NOTE | 2018-03-07 13:14 | PN ---
Progress Note, Physician History of Present Illness: Pt seen and examined at bedside. He is awake and alert. He went for angio today. - Current Medication List Current Medications: Active Medications Acetaminophen (Tylenol -) 650 mg PO Q6H PRN PRN Reason: PAIN Acetaminophen (Tylenol -) 325 mg PO Q12H PRN PRN Reason: PAIN LEVEL 6-10 Albuterol Sulfate (Ventolin 0.083% Nebulizer Soln -) 1 amp NEB Q4H PRN PRN Reason: SHORT OF BREATH/WHEEZING Albuterol Sulfate (Ventolin 0.083% Nebulizer Soln -) 1 amp NEB Q3H PRN PRN Reason: SHORT OF BREATH/WHEEZING Albuterol/Ipratropium (Duoneb -) 1 amp NEB ONCE ONE Stop: 03/07/18 12:25 Aspirin (Asa -) 81 mg PO DAILY [facility] Atorvastatin Calcium (Lipitor -) 80 mg PO HS [facility] Calcium Acetate (Phoslo -) 667 mg PO TIDCM [facility] [place] Clopidogrel Bisulfate (Plavix -) 75 mg PO DAILY [facility] Last Admin: 03/07/18 12:25 Dose: 75 mg Fentanyl (Sublimaze Injection -) 25 mcg IVPUSH [id number] PRN PRN Reason: PAIN-PACU ORDER X 4 DOSES ONLY Heparin Sodium (Porcine) (Heparin -) 5,000 unit SQ TID [facility] [place] Piperacillin Sod/Tazobactam (Sod 2.25 gm/ Dextrose) 50 mls @ 100 mls/hr IVPB Q8H-IV [facility]; Protocol Insulin Aspart (Novolog Vial Sliding Scale -) 1 vial SQ ACHS [facility]; Protocol Insulin Detemir (Levemir Vial) 5 units SQ HS [facility] Levothyroxine Sodium (Synthroid -) 25 mcg PO DAILY@0700 [facility] Lisinopril (Prinivil) 10 mg PO DAILY [facility] [place] Metoprolol Succinate (Toprol Xl -) 100 mg PO DAILY [facility] [place] Multivitamins/Minerals/Vitamin C (Tab-A-Vit -) 1 tab PO DAILY [facility] [place] Pantoprazole Sodium (Protonix -) 40 mg PO DAILY [facility] [place] Senna (Senna -) 1 tab PO HS [facility] [place] Sertraline HCl (Zoloft -) 25 mg PO HS [facility] - Objective Vital Signs: Vital Signs Temperature 97.7 F 03/07/18 12:25 Pulse Rate 87 03/07/18 12:25 Respiratory Rate 16 03/07/18 12:25 Blood Pressure 144/61 03/07/18 12:25 O2 Sat by Pulse Oximetry (%) 94 L 03/07/18 12:25 Constitutional: Yes: Calm Eyes: Yes: Conjunctiva Clear HENT: Yes: Atraumatic Cardiovascular: Yes: S1, S2 Respiratory: Yes: CTA Bilaterally, On Nasal O2 Gastrointestinal: Yes: Soft Genitourinary: Yes: WNL Musculoskeletal: Yes: Other (left toe ulcer) Edema: No Neurological: Yes: Oriented Psychiatric: Yes: Oriented Labs: CBC, BMP 03/06/18 12:30 03/07/18 06:00 INR, PTT INR 1.21 (0.82-1.09) H 02/28/18 21:10 Problem List - Problems (1) ESRD (end stage renal disease) Code(s): N18.6 - END STAGE RENAL DISEASE (2) Hyperkalemia Code(s): E87.5 - HYPERKALEMIA Assessment/Plan Current Medications Generic Name Dose Route Start Last Admin Trade Name Freq PRN Reason Stop Dose Admin Acetaminophen 650 mg 03/07/18 12:24 Tylenol - PO Q6H PRN PAIN Acetaminophen 325 mg 03/07/18 12:24 Tylenol - PO Q12H PRN PAIN LEVEL 6-10 Albuterol Sulfate 1 amp 03/07/18 12:24 Ventolin 0.083% Nebulizer Soln - NEB Q4H PRN SHORT OF BREATH/WHEEZING Albuterol Sulfate 1 amp 03/07/18 12:24 Ventolin 0.083% Nebulizer Soln - NEB Q3H PRN SHORT OF BREATH/WHEEZING Albuterol/Ipratropium 1 amp 03/07/18 12:24 Duoneb - NEB 03/07/18 12:25 ONCE ONE Aspirin 81 mg 03/08/18 10:00 Asa - PO DAILY [facility] Atorvastatin Calcium 80 mg 03/07/18 22:00 Lipitor - PO HS [facility] Calcium Acetate 667 mg 03/07/18 17:30 Phoslo - PO TIDCM [facility] Clopidogrel Bisulfate 75 mg 03/07/18 12:00 03/07/18 12:25 Plavix - PO 75 mg DAILY [facility] Administration Fentanyl 25 mcg 03/07/18 11:46 Sublimaze Injection - IVPUSH [id number] PRN PAIN-PACU ORDER X 4 DOSES ONLY Heparin Sodium (Porcine) 5,000 unit 03/07/18 14:00 Heparin - SQ TID [facility] Piperacillin Sod/Tazobactam 50 mls @ 100 mls/hr 03/07/18 18:00 Sod 2.25 gm/ Dextrose IVPB Q8H-IV [facility] [place] Protocol Insulin Aspart 1 vial 03/07/18 16:30 Novolog Vial Sliding Scale - SQ ACHS [facility] [place] Protocol Insulin Detemir 5 units 03/07/18 22:00 Levemir Vial SQ HS [facility] [place] Levothyroxine Sodium 25 mcg 03/08/18 07:00 Synthroid - PO DAILY@0700 [facility] Lisinopril 10 mg 03/08/18 10:00 Prinivil PO DAILY [facility] Metoprolol Succinate 100 mg 03/08/18 10:00 Toprol Xl - PO DAILY [facility] Multivitamins/Minerals/Vitamin C 1 tab 03/08/18 10:00 Tab-A-Vit - PO DAILY [facility] [place] Pantoprazole Sodium 40 mg 03/08/18 10:00 Protonix - PO DAILY [facility] Senna 1 tab 03/07/18 22:00 Senna - PO HS [facility] Sertraline HCl 25 mg 03/07/18 22:00 Zoloft - PO HS [facility] Impression 1. ESRD 2. hyperkalemia 3. DM 4. CAD 5. PVD 6. DFU 7. anemia Plan - HD in am - vascular follow up - cont wound care - abx per ID - will follow - Right avF, 3:30, 2 k bath, 450 abf, aranesp 35 mcg received on Monday
--- NOTE | 2018-03-07 14:20 | PN ---
Progress Note, Physician History of Present Illness: PULMONARY ALERT,FEELING BETTER,-RESP DISTRESS. S/P ANGIO AND STENT PLACEMENT TOLERATED PROCEDURE WELL - Current Medication List Current Medications: Active Medications Acetaminophen (Tylenol -) 650 mg PO Q6H PRN PRN Reason: PAIN Acetaminophen (Tylenol -) 325 mg PO Q12H PRN PRN Reason: PAIN LEVEL 6-10 Albuterol Sulfate (Ventolin 0.083% Nebulizer Soln -) 1 amp NEB Q4H PRN PRN Reason: SHORT OF BREATH/WHEEZING Albuterol Sulfate (Ventolin 0.083% Nebulizer Soln -) 1 amp NEB Q3H PRN PRN Reason: SHORT OF BREATH/WHEEZING Aspirin (Asa -) 81 mg PO DAILY [facility] Atorvastatin Calcium (Lipitor -) 80 mg PO HS [facility] Calcium Acetate (Phoslo -) 667 mg PO TIDCM [facility] Clopidogrel Bisulfate (Plavix -) 75 mg PO DAILY [facility] Last Admin: 03/07/18 12:25 Dose: 75 mg Epoetin Parmjit (Epogen -) 3,000 unit IVPUSH ONCE ONE Stop: 03/08/18 13:15 Fentanyl (Sublimaze Injection -) 25 mcg IVPUSH [id number] PRN PRN Reason: PAIN-PACU ORDER X 4 DOSES ONLY Heparin Sodium (Porcine) (Heparin -) 5,000 unit SQ TID [facility] Piperacillin Sod/Tazobactam (Sod 2.25 gm/ Dextrose) 50 mls @ 100 mls/hr IVPB Q8H-IV [facility]; Protocol Sodium Chloride (Normal Saline -) 250 mls @ 3,000 mls/hr IV PRN PRN PRN Reason: Hypotension during Dialysis Stop: 03/08/18 13:14 Insulin Aspart (Novolog Vial Sliding Scale -) 1 vial SQ ACHS [facility]; Protocol Insulin Detemir (Levemir Vial) 5 units SQ HS [facility] Levothyroxine Sodium (Synthroid -) 25 mcg PO DAILY@0700 [facility] Lisinopril (Prinivil) 10 mg PO DAILY [facility] Metoprolol Succinate (Toprol Xl -) 100 mg PO DAILY [facility] Multivitamins/Minerals/Vitamin C (Tab-A-Vit -) 1 tab PO DAILY [facility] Pantoprazole Sodium (Protonix -) 40 mg PO DAILY [facility] Senna (Senna -) 1 tab PO HS [facility] Sertraline HCl (Zoloft -) 25 mg PO HS [facility] - Objective Vital Signs: Vital Signs Temperature 97.7 F 03/07/18 12:25 Pulse Rate 87 03/07/18 12:25 Respiratory Rate 16 03/07/18 12:25 Blood Pressure 144/61 03/07/18 12:25 O2 Sat by Pulse Oximetry (%) 94 L 03/07/18 12:25 Constitutional: Yes: Well Nourished, Calm Eyes: Yes: WNL HENT: Yes: WNL Neck: Yes: WNL Cardiovascular: Yes: Regular Rate and Rhythm, S1, S2 Respiratory: Yes: Rhonchi (FEW RHONCHI) Gastrointestinal: Yes: Normal Bowel Sounds, Soft Extremities: Yes: Other (GANGRENE L GREAT TOE) Labs: CBC, BMP 03/06/18 12:30 03/07/18 06:00 INR, PTT INR 1.21 (0.82-1.09) H 02/28/18 21:10 Problem List - Problems (1) CHF (congestive heart failure), NYHA class IV Code(s): I50.9 - HEART FAILURE, UNSPECIFIED Qualifiers: Congestive heart failure type: systolic Congestive heart failure chronicity : acute on chronic Qualified Code(s): I50.23 - Acute on chronic systolic ( congestive) heart failure (2) ESRD (end stage renal disease) Code(s): N18.6 - END STAGE RENAL DISEASE (3) COPD (chronic obstructive pulmonary disease) Code(s): J44.9 - CHRONIC OBSTRUCTIVE PULMONARY DISEASE, UNSPECIFIED (4) PVD (peripheral vascular disease) Code(s): I73.9 - PERIPHERAL VASCULAR DISEASE, UNSPECIFIED (5) ASHD (arteriosclerotic heart disease) Code(s): I25.10 - ATHSCL HEART DISEASE OF [place] CORONARY ARTERY W/O ANG PCTRS (6) Hyperkalemia Code(s): E87.5 - HYPERKALEMIA (7) S/P CABG (coronary artery bypass graft) Code(s): Z95.1 - PRESENCE OF AORTOCORONARY BYPASS GRAFT (8) HTN (hypertension) Code(s): I10 - ESSENTIAL (PRIMARY) HYPERTENSION Qualifiers: Hypertension type: essential hypertension Qualified Code(s): I10 - Essential (primary) hypertension (9) Diabetes Code(s): E11.9 - TYPE 2 DIABETES MELLITUS WITHOUT COMPLICATIONS Qualifiers: Diabetes mellitus type: type 2 (10) Gangrene Code(s): I96 - GANGRENE, NOT ELSEWHERE CLASSIFIED (11) Dyspnea Code(s): R06.00 - DYSPNEA, UNSPECIFIED (12) Pleural effusion Code(s): J90 - PLEURAL EFFUSION, NOT ELSEWHERE CLASSIFIED Assessment/Plan IMP DYSPNEA IMPROVING ACUTE ON CHRONIC SYSTOLIC HF SEVERE LV DYSFUNCTION CARDIOMYOPATHY ESRD ON HD LEFT PLEURAL EFFUSION COPD HTN ASHD S/P CABG,S/P PPM DM GANGRENE LEFT GREAT TOE PLAN HD PER RENAL INHALED BRONCHODILATORS O2 F/U CHEST X-RAYS ABX PER ID DR GAMINO Problem List - Problems (1) CHF (congestive heart failure), NYHA class IV Code(s): I50.9 - HEART FAILURE, UNSPECIFIED (2) ESRD (end stage renal disease) Code(s): N18.6 - END STAGE RENAL DISEASE (3) COPD (chronic obstructive pulmonary disease) Code(s): J44.9 - CHRONIC OBSTRUCTIVE PULMONARY DISEASE, UNSPECIFIED (4) PVD (peripheral vascular disease) Code(s): I73.9 - PERIPHERAL VASCULAR DISEASE, UNSPECIFIED (5) ASHD (arteriosclerotic heart disease) Code(s): I25.10 - ATHSCL HEART DISEASE OF [place] CORONARY ARTERY W/O ANG PCTRS (6) Hyperkalemia Code(s): E87.5 - HYPERKALEMIA (7) S/P CABG (coronary artery bypass graft) Code(s): Z95.1 - PRESENCE OF AORTOCORONARY BYPASS GRAFT (8) HTN (hypertension) Code(s): I10 - ESSENTIAL (PRIMARY) HYPERTENSION (9) Diabetes Code(s): E11.9 - TYPE 2 DIABETES MELLITUS WITHOUT COMPLICATIONS (10) Gangrene Code(s): I96 - GANGRENE, NOT ELSEWHERE CLASSIFIED (11) Dyspnea Code(s): R06.00 - DYSPNEA, UNSPECIFIED (12) Pleural effusion Code(s): J90 - PLEURAL EFFUSION, NOT ELSEWHERE CLASSIFIED
[2018-03-07] MEDS: ATORVASTATIN CA 80 MG TABLET (FP) PO SCH (23:13)
[2018-03-07] MEDS: SERTRALINE HCL 25 MG TABLET (FP) PO SCH (23:18)
[2018-03-07] MEDS: SENNOSIDES 8.6MG TABLET (FP) PO SCH (23:19)
[2018-03-07] MEDS: INSULIN (LEVEMIR) 100 UNITS/ML UNITS SQ SCH (23:23)
[2018-03-08] MEDS ORDERED: DEXTROSE 5%-WATER - 50 ML IVPB ONE ×2 (02:43→14:50)
[2018-03-08] MEDS ORDERED: PIPERACILLIN/TAZOBACTAM 2.25 GM VIAL IVPB ONE ×2 (02:43→14:50)
[2018-03-08] MEDS: PIPERACILLIN/TAZOB 2.25 GM 2.25 GM in DEXTROSE 5%-WATER - 50 ML IVPB SCH ×2 (02:56→14:58)
[2018-03-08] MEDS: ALBUTEROL SO4 0.083% IH SOL 2.5 MG/3 ML VIAL.NEB. NEB PRN ×3 (04:20→23:34)
[2018-03-08] MEDS: HEPARIN NA (PORCINE) 5,000 UNITS/ML 1ML VIAL SQ SCH ×3 (05:56→21:40)
[2018-03-08] MEDS: LEVOTHYROXINE NA 25 MCG TABLET (FP) PO SCH (06:00)
[2018-03-08] MEDS: INSULIN SLIDING SCALE (NOVOLOG) 1 VIAL SQ SCH ×4 (06:00→21:42)
[2018-03-08] MEDS: CALCIUM ACETATE 667 MG CAPSULE (FP) PO SCH ×3 (09:00→17:33)
--- NOTE | 2018-03-08 09:15 | PN ---
Progress Note (short form) - Note Progress Note: Resting in NAD. No CP or SOB. No acute events overnight. Intake & Output 03/05/18 03/06/18 03/07/18 03/08/18 23:59 23:59 23:59 23:59 Intake Total 250 450 500 50 Output Total 75 Balance 250 450 425 50 Weight 162 lb 5 oz 162 lb 7 oz 157 lb 159 lb Last Vital Signs Temp Pulse Resp BP Pulse Ox 98.2 F 80 20 153/66 99 03/08/18 06:00 03/08/18 06:00 03/08/18 06:00 03/08/18 06:00 03/07/18 21:00 Active Medications Acetaminophen (Tylenol -) 650 mg PO Q6H PRN PRN Reason: PAIN Last Admin: 03/07/18 23:18 Dose: 650 mg Acetaminophen (Tylenol -) 325 mg PO Q12H PRN PRN Reason: PAIN LEVEL 6-10 Albuterol Sulfate (Ventolin 0.083% Nebulizer Soln -) 1 amp NEB Q4H PRN PRN Reason: SHORT OF BREATH/WHEEZING Last Admin: 03/08/18 07:34 Dose: 1 amp Albuterol Sulfate (Ventolin 0.083% Nebulizer Soln -) 1 amp NEB Q3H PRN PRN Reason: SHORT OF BREATH/WHEEZING Aspirin (Asa -) 81 mg PO DAILY [facility] Atorvastatin Calcium (Lipitor -) 80 mg PO HS [facility] Last Admin: 03/07/18 23:13 Dose: 80 mg Calcium Acetate (Phoslo -) 667 mg PO TIDCM [facility] Last Admin: 03/08/18 09:00 Dose: 667 mg Clopidogrel Bisulfate (Plavix -) 75 mg PO DAILY [facility] Last Admin: 03/07/18 18:47 Dose: Not Given Epoetin Parmjit (Epogen -) 3,000 unit IVPUSH ONCE ONE Stop: 03/08/18 13:15 Fentanyl (Sublimaze Injection -) 25 mcg IVPUSH [id number] PRN PRN Reason: PAIN-PACU ORDER X 4 DOSES ONLY Heparin Sodium (Porcine) (Heparin -) 5,000 unit SQ TID [facility] Last Admin: 03/08/18 05:56 Dose: 5,000 unit Piperacillin Sod/Tazobactam (Sod 2.25 gm/ Dextrose) 50 mls @ 100 mls/hr IVPB Q8H-IV [facility]; Protocol Last Admin: 03/08/18 02:56 Dose: 100 mls/hr Sodium Chloride (Normal Saline -) 250 mls @ 3,000 mls/hr IV PRN PRN PRN Reason: Hypotension during Dialysis Stop: 03/08/18 13:14 Insulin Aspart (Novolog Vial Sliding Scale -) 1 vial SQ [facility]; Protocol Last Admin: 03/08/18 06:00 Dose: Not Given Insulin Detemir (Levemir Vial) 5 units SQ [facility] Last Admin: 03/07/18 23:23 Dose: 5 units Levothyroxine Sodium (Synthroid -) 25 mcg PO DAILY@0700 [facility] Last Admin: 03/08/18 06:00 Dose: 25 mcg Lisinopril (Prinivil) 10 mg PO DAILY [facility] Metoprolol Succinate (Toprol Xl -) 100 mg PO DAILY [facility] Multivitamins/Minerals/Vitamin C (Tab-A-Vit -) 1 tab PO DAILY [facility] Pantoprazole Sodium (Protonix -) 40 mg PO DAILY [facility] Senna (Senna -) 1 tab PO [facility] Last Admin: 03/07/18 23:19 Dose: 1 tab Sertraline HCl (Zoloft -) 25 mg PO [facility] Last Admin: 03/07/18 23:18 Dose: 25 mg Constitutional: Yes: NAD Eyes: Yes: WNL HENT: Yes: WNL Neck: Yes: WNL Cardiovascular: Yes: Regular Rate and Rhythm, S1, S2 Respiratory: Yes: Rhonchi (FEW RHONCHI) Gastrointestinal: Yes: Normal Bowel Sounds, Soft Extremities: Yes: GANGRENE L GREAT TOE Labs: Laboratory Results - last 24 hr 03/07/18 03/07/18 03/08/18 18:50 22:57 05:55 POC Glucometer 221 216 81 Problem List - Problems (1) CHF (congestive heart failure), NYHA class IV Code(s): I50.9 - HEART FAILURE, UNSPECIFIED Qualifiers: Congestive heart failure type: systolic Congestive heart failure chronicity : acute on chronic Qualified Code(s): I50.23 - Acute on chronic systolic ( congestive) heart failure (2) ESRD (end stage renal disease) Code(s): N18.6 - END STAGE RENAL DISEASE (3) COPD (chronic obstructive pulmonary disease) Code(s): J44.9 - CHRONIC OBSTRUCTIVE PULMONARY DISEASE, UNSPECIFIED (4) PVD (peripheral vascular disease) Code(s): I73.9 - PERIPHERAL VASCULAR DISEASE, UNSPECIFIED (5) ASHD (arteriosclerotic heart disease) Code(s): I25.10 - ATHSCL HEART DISEASE OF [place] CORONARY ARTERY W/O ANG PCTRS (6) Hyperkalemia Code(s): E87.5 - HYPERKALEMIA (7) S/P CABG (coronary artery bypass graft) Code(s): Z95.1 - PRESENCE OF AORTOCORONARY BYPASS GRAFT (8) HTN (hypertension) Code(s): I10 - ESSENTIAL (PRIMARY) HYPERTENSION Qualifiers: Hypertension type: essential hypertension Qualified Code(s): I10 - Essential (primary) hypertension (9) Diabetes Code(s): E11.9 - TYPE 2 DIABETES MELLITUS WITHOUT COMPLICATIONS Qualifiers: Diabetes mellitus type: type 2 (10) Gangrene Code(s): I96 - GANGRENE, NOT ELSEWHERE CLASSIFIED (11) Dyspnea Code(s): R06.00 - DYSPNEA, UNSPECIFIED (12) Pleural effusion Code(s): J90 - PLEURAL EFFUSION, NOT ELSEWHERE CLASSIFIED Assessment/Plan IMP DYSPNEA IMPROVING ACUTE ON CHRONIC SYSTOLIC HF SEVERE LV DYSFUNCTION CARDIOMYOPATHY ESRD ON HD LEFT PLEURAL EFFUSION COPD HTN ASHD S/P CABG,S/P PPM DM GANGRENE LEFT GREAT TOE PLAN HD PER RENAL INHALED BRONCHODILATORS O2 LOCAL WOUND CARE PER SURGERY ABX PER [facility]
--- NOTE | 2018-03-08 09:55 | PN ---
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 Seen at HD, denies chest pain, palpitations, dyspnea. - Current Medication List Current Medications: Active Medications Acetaminophen (Tylenol -) 650 mg PO Q6H PRN PRN Reason: PAIN Last Admin: 03/07/18 23:18 Dose: 650 mg Acetaminophen (Tylenol -) 325 mg PO Q12H PRN PRN Reason: PAIN LEVEL 6-10 Albuterol Sulfate (Ventolin 0.083% Nebulizer Soln -) 1 amp NEB Q4H PRN PRN Reason: SHORT OF BREATH/WHEEZING Last Admin: 03/08/18 07:34 Dose: 1 amp Albuterol Sulfate (Ventolin 0.083% Nebulizer Soln -) 1 amp NEB Q3H PRN PRN Reason: SHORT OF BREATH/WHEEZING Aspirin (Asa -) 81 mg PO DAILY [facility] Atorvastatin Calcium (Lipitor -) 80 mg PO HS [facility] Last Admin: 03/07/18 23:13 Dose: 80 mg Calcium Acetate (Phoslo -) 667 mg PO TIDCM [facility] Last Admin: 03/08/18 09:00 Dose: 667 mg Clopidogrel Bisulfate (Plavix -) 75 mg PO DAILY [facility] Last Admin: 03/07/18 18:47 Dose: Not Given Epoetin Parmjit (Epogen -) 3,000 unit IVPUSH ONCE ONE Stop: 03/08/18 13:15 Fentanyl (Sublimaze Injection -) 25 mcg IVPUSH [id number] PRN PRN Reason: PAIN-PACU ORDER X 4 DOSES ONLY Heparin Sodium (Porcine) (Heparin -) 5,000 unit SQ TID [facility] Last Admin: 03/08/18 05:56 Dose: 5,000 unit Piperacillin Sod/Tazobactam (Sod 2.25 gm/ Dextrose) 50 mls @ 100 mls/hr IVPB Q8H-IV [facility]; Protocol Last Admin: 03/08/18 02:56 Dose: 100 mls/hr Sodium Chloride (Normal Saline -) 250 mls @ 3,000 mls/hr IV PRN PRN PRN Reason: Hypotension during Dialysis Stop: 03/08/18 13:14 Insulin Aspart (Novolog Vial Sliding Scale -) 1 vial SQ ACHS [facility]; Protocol Last Admin: 03/08/18 06:00 Dose: Not Given Insulin Detemir (Levemir Vial) 5 units SQ [facility] Last Admin: 03/07/18 23:23 Dose: 5 units Levothyroxine Sodium (Synthroid -) 25 mcg PO DAILY@0700 [facility] Last Admin: 03/08/18 06:00 Dose: 25 mcg Lisinopril (Prinivil) 10 mg PO DAILY [facility] Metoprolol Succinate (Toprol Xl -) 100 mg PO DAILY [facility] Multivitamins/Minerals/Vitamin C (Tab-A-Vit -) 1 tab PO DAILY [facility] Pantoprazole Sodium (Protonix -) 40 mg PO DAILY [facility] Senna (Senna -) 1 tab PO [facility] Last Admin: 03/07/18 23:19 Dose: 1 tab Sertraline HCl (Zoloft -) 25 mg PO [facility] Last Admin: 03/07/18 23:18 Dose: 25 mg - Objective Vital Signs: Vital Signs Temperature 98.2 F 03/08/18 06:00 Pulse Rate 80 03/08/18 06:00 Respiratory Rate 20 03/08/18 06:00 Blood Pressure 153/66 03/08/18 06:00 O2 Sat by Pulse Oximetry (%) 99 03/07/18 21:00 Constitutional: Yes: No Distress, Calm, Thin Neck: Yes: Supple Cardiovascular: Yes: Regular Rate and Rhythm Respiratory: Yes: Regular, Diminished Gastrointestinal: Yes: Normal Bowel Sounds, Soft Edema: No Labs: CBC, BMP 03/06/18 12:30 03/07/18 06:00 INR, PTT INR 1.21 (0.82-1.09) H 02/28/18 21:10 Problem List - Problems (1) ASHD (arteriosclerotic heart disease) Code(s): I25.10 - ATHSCL HEART DISEASE OF [place] CORONARY ARTERY W/O ANG PCTRS (2) CHF (congestive heart failure), NYHA class IV Code(s): I50.9 - HEART FAILURE, UNSPECIFIED Qualifiers: Congestive heart failure type: systolic Congestive heart failure chronicity : acute on chronic Qualified Code(s): I50.23 - Acute on chronic systolic ( congestive) heart failure (3) Diabetes Code(s): E11.9 - TYPE 2 DIABETES MELLITUS WITHOUT COMPLICATIONS Qualifiers: Diabetes mellitus type: type 2 (4) ESRD (end stage renal disease) Code(s): N18.6 - END STAGE RENAL DISEASE (5) Gangrene Code(s): I96 - GANGRENE, NOT ELSEWHERE CLASSIFIED (6) HTN (hypertension) Code(s): I10 - ESSENTIAL (PRIMARY) HYPERTENSION Qualifiers: Hypertension type: essential hypertension Qualified Code(s): I10 - Essential (primary) hypertension (7) PVD (peripheral vascular disease) Code(s): I73.9 - PERIPHERAL VASCULAR DISEASE, UNSPECIFIED (8) Pleural effusion Code(s): J90 - PLEURAL EFFUSION, NOT ELSEWHERE CLASSIFIED (9) S/P CABG (coronary artery bypass graft) Code(s): Z95.1 - PRESENCE OF AORTOCORONARY BYPASS GRAFT (10) ICD (implantable cardioverter-defibrillator) in place Code(s): Z95.810 - PRESENCE OF AUTOMATIC (IMPLANTABLE) CARDIAC DEFIBRILLATOR (11) S/P peripheral artery angioplasty with stent placement Code(s): Z95.820 - PERIPHERAL VASCULAR ANGIOPLASTY STATUS W IMPLANTS AND GRAFTS Assessment/Plan 1. Acute on Chronic Systolic Heart Failure referable to ischemic dilated cardiomyopathy/severe LV systolic dysfunction with left effusion improving 2. CAD post remote [place] post CABG angina pectoris, stable 3. Post prophylactic ICD implant ([employer]'s device) 4. HTN 5. IDDM 6. Hypercholesterolemia 7. PAD with left toe gangrene s/p aortogram, LLE angiogram, SFA atherectomy, DCB SFA angioplasty, with sfa stent 8. ESRD on HD with hyperkalemia 9. Anemia 10. Hypothyroidism PLAN: 1. Continue Toprol XL 100 qd 2. Increase Lisinopril 20 qd and titrate dosage as tolerated and hemodynamics permitting 3. Continue ASA 81 qd and Plavix 75 qd 4. Continue Lipitor 80 qhs 5. Volume removal via UF/HD 6. Complete abx course, wound care, DVT and GI prophylaxis
[2018-03-08] MEDS ORDERED: LISINOPRIL 10 MG TABLET (FP) PO SCH (10:00)
--- NOTE | 2018-03-08 10:48 | PN ---
Progress Note, Physician Chief Complaint: s/p angiogram pt examined in dialysis pain is better on left leg - Current Medication List Current Medications: Active Medications Acetaminophen (Tylenol -) 650 mg PO Q6H PRN PRN Reason: PAIN Last Admin: 03/07/18 23:18 Dose: 650 mg Acetaminophen (Tylenol -) 325 mg PO Q12H PRN PRN Reason: PAIN LEVEL 6-10 Albuterol Sulfate (Ventolin 0.083% Nebulizer Soln -) 1 amp NEB Q4H PRN PRN Reason: SHORT OF BREATH/WHEEZING Last Admin: 03/08/18 07:34 Dose: 1 amp Albuterol Sulfate (Ventolin 0.083% Nebulizer Soln -) 1 amp NEB Q3H PRN PRN Reason: SHORT OF BREATH/WHEEZING Aspirin (Asa -) 81 mg PO DAILY [facility] Atorvastatin Calcium (Lipitor -) 80 mg PO HS [facility] Last Admin: 03/07/18 23:13 Dose: 80 mg Calcium Acetate (Phoslo -) 667 mg PO TIDCM [facility] Last Admin: 03/08/18 09:00 Dose: 667 mg Clopidogrel Bisulfate (Plavix -) 75 mg PO DAILY [facility] Last Admin: 03/07/18 18:47 Dose: Not Given Epoetin Parmjit (Procrit -) 3,000 unit IVPUSH ONCE ONE Stop: 03/08/18 11:01 Fentanyl (Sublimaze Injection -) 25 mcg IVPUSH [id number] PRN PRN Reason: PAIN-PACU ORDER X 4 DOSES ONLY Heparin Sodium (Porcine) (Heparin -) 5,000 unit SQ TID [facility] Last Admin: 03/08/18 05:56 Dose: 5,000 unit Piperacillin Sod/Tazobactam (Sod 2.25 gm/ Dextrose) 50 mls @ 100 mls/hr IVPB Q8H-IV [facility]; Protocol Last Admin: 03/08/18 02:56 Dose: 100 mls/hr Insulin Aspart (Novolog Vial Sliding Scale -) 1 vial SQ ACHS [facility]; Protocol Last Admin: 03/08/18 06:00 Dose: Not Given Insulin Detemir (Levemir Vial) 5 units SQ HS [facility] Last Admin: 03/07/18 23:23 Dose: 5 units Levothyroxine Sodium (Synthroid -) 25 mcg PO DAILY@0700 [facility] Last Admin: 03/08/18 06:00 Dose: 25 mcg Lisinopril (Prinivil) 10 mg PO BID [facility] Metoprolol Succinate (Toprol Xl -) 100 mg PO DAILY [facility] Multivitamins/Minerals/Vitamin C (Tab-A-Vit -) 1 tab PO DAILY [facility] Pantoprazole Sodium (Protonix -) 40 mg PO DAILY [facility] Senna (Senna -) 1 tab PO HS [facility] Last Admin: 03/07/18 23:19 Dose: 1 tab Sertraline HCl (Zoloft -) 25 mg PO HS [facility] Last Admin: 03/07/18 23:18 Dose: 25 mg - Objective Vital Signs: Vital Signs Temperature 98.2 F 03/08/18 06:00 Pulse Rate 80 03/08/18 06:00 Respiratory Rate 20 03/08/18 06:00 Blood Pressure 153/66 03/08/18 06:00 O2 Sat by Pulse Oximetry (%) 99 03/07/18 21:00 Constitutional: Yes: No Distress Cardiovascular: Yes: Regular Rate and Rhythm Respiratory: Yes: Diminished Gastrointestinal: Yes: Normal Bowel Sounds, Soft. No: Tenderness Extremities: Yes: Other (left big toe - gangrene, left leg is warm) Edema: No Labs: CBC, BMP 03/06/18 12:30 03/07/18 06:00 INR, PTT INR 1.21 (0.82-1.09) H 02/28/18 21:10 Problem List - Problems (1) ASHD (arteriosclerotic heart disease) Code(s): I25.10 - ATHSCL HEART DISEASE OF [place] CORONARY ARTERY W/O ANG PCTRS (2) Diabetes Code(s): E11.9 - TYPE 2 DIABETES MELLITUS WITHOUT COMPLICATIONS Qualifiers: Diabetes mellitus type: type 2 (3) ESRD (end stage renal disease) Code(s): N18.6 - END STAGE RENAL DISEASE (4) Gangrene Code(s): I96 - GANGRENE, NOT ELSEWHERE CLASSIFIED (5) HTN (hypertension) Code(s): I10 - ESSENTIAL (PRIMARY) HYPERTENSION Qualifiers: Hypertension type: essential hypertension Qualified Code(s): I10 - Essential (primary) hypertension Assessment/Plan Assessment/Plan 1. ESRD 3. DM 4. CAD 5. PVD 6. Anemia 7. Pleural Effusion 8. Ischemic toes no SOB continue present care monitor blood sugar s/p Angiogram iv antibiotics
[2018-03-08] MEDS: ACETAMINOPHEN 325 MG TABLET (FP) PO PRN ×3 (10:50→22:25)
[2018-03-08] MEDS ORDERED: EPOETIN ALFA 3,000 UNIT/1 ML ML IVPUSH ONE (11:00)
[2018-03-08 11:07] LABS: HEMATOCRIT 26.8 % (35.4-49); HEMOGLOBIN 8.7 GM/dL (11.7-16.9); MCH 28.8 pg (25.7-33.7); MCHC 32.3 g/dl (32.0-35.9); MEAN CELL VOLUME 89.1 fl (80-96); MEAN PLT VOLUME 9.4 fl (7.5-11.1); PLATELET COUNT 151 K/MM3 (134-434); RBC 3.01 M/mm3 (4.00-5.60); RDW 19.5 % (11.9-15.9); WHITE BLOOD COUNT 8.6 K/mm3 (4.0-10.0)
[2018-03-08 11:32] LABS: BLOOD UREA NITROGEN 23 mg/dL (7-18)
[2018-03-08 11:34] LABS: ANION GAP 7 (8-16); CALCIUM 8.2 mg/dL (8.5-10.1); CHLORIDE 101 mmol/L (98-107); CO2 31 mmol/L (21-32); CREATININE 5.4 mg/dL (0.7-1.3); GLUCOSE,RANDOM 152 mg/dL (74-106); POTASSIUM 3.8 mmol/L (3.5-5.1); SODIUM 139 mmol/L (136-145)
[2018-03-08] MEDS: CLOPIDOGREL BISULFATE 75 MG TABLET (FP) PO SCH (14:57)
[2018-03-08] MEDS: PANTOPRAZOLE 40 MG TABLET (FP) PO SCH (14:57)
[2018-03-08] MEDS: MULTIVITAMINS (DAILY MVI) TABLET (FP) PO SCH (14:57)
[2018-03-08] MEDS: ASPIRIN 81 MG CHEWABLE TABLETS PO SCH (14:58)
--- NOTE | 2018-03-08 15:41 | PN ---
Progress Note, Physician History of Present Illness: Pt seen and examined at bedside. He is currently getting HD. He denies shortness of breath. - Current Medication List Current Medications: Active Medications Acetaminophen (Tylenol -) 650 mg PO Q6H PRN PRN Reason: PAIN Last Admin: 03/08/18 10:50 Dose: 650 mg Acetaminophen (Tylenol -) 325 mg PO Q12H PRN PRN Reason: PAIN LEVEL 6-10 Albuterol Sulfate (Ventolin 0.083% Nebulizer Soln -) 1 amp NEB Q4H PRN PRN Reason: SHORT OF BREATH/WHEEZING Last Admin: 03/08/18 07:34 Dose: 1 amp Albuterol Sulfate (Ventolin 0.083% Nebulizer Soln -) 1 amp NEB Q3H PRN PRN Reason: SHORT OF BREATH/WHEEZING Aspirin (Asa -) 81 mg PO DAILY [facility] Last Admin: 03/08/18 14:58 Dose: 81 mg Atorvastatin Calcium (Lipitor -) 80 mg PO HS [facility] Last Admin: 03/07/18 23:13 Dose: 80 mg Calcium Acetate (Phoslo -) 667 mg PO TIDCM [facility] Last Admin: 03/08/18 14:57 Dose: 667 mg Clopidogrel Bisulfate (Plavix -) 75 mg PO DAILY [facility] Last Admin: 03/08/18 14:57 Dose: 75 mg Fentanyl (Sublimaze Injection -) 25 mcg IVPUSH [id number] PRN PRN Reason: PAIN-PACU ORDER X 4 DOSES ONLY Heparin Sodium (Porcine) (Heparin -) 5,000 unit SQ TID [facility] Last Admin: 03/08/18 14:57 Dose: 5,000 unit Piperacillin Sod/Tazobactam (Sod 2.25 gm/ Dextrose) 50 mls @ 100 mls/hr IVPB Q8H-IV [facility]; Protocol Last Admin: 03/08/18 14:58 Dose: 100 mls/hr Insulin Aspart (Novolog Vial Sliding Scale -) 1 vial SQ [facility]; Protocol Last Admin: 03/08/18 15:01 Dose: 2 units Insulin Detemir (Levemir Vial) 5 units SQ [facility] Last Admin: 03/07/18 23:23 Dose: 5 units Levothyroxine Sodium (Synthroid -) 25 mcg PO DAILY@0700 [facility] Last Admin: 03/08/18 06:00 Dose: 25 mcg Lisinopril (Prinivil) 10 mg PO BID [facility] Metoprolol Succinate (Toprol Xl -) 100 mg PO DAILY [facility] Last Admin: 03/08/18 14:57 Dose: 100 mg Multivitamins/Minerals/Vitamin C (Tab-A-Vit -) 1 tab PO DAILY [facility] Last Admin: 03/08/18 14:57 Dose: 1 tab Pantoprazole Sodium (Protonix -) 40 mg PO DAILY [facility] Last Admin: 03/08/18 14:57 Dose: 40 mg Senna (Senna -) 1 tab PO [facility] Last Admin: 03/07/18 23:19 Dose: 1 tab Sertraline HCl (Zoloft -) 25 mg PO HS [facility] Last Admin: 03/07/18 23:18 Dose: 25 mg - Objective Vital Signs: Vital Signs Temperature 98.0 F 03/08/18 09:00 Pulse Rate 81 03/08/18 14:32 Respiratory Rate 17 03/08/18 14:32 Blood Pressure 156/65 03/08/18 14:32 O2 Sat by Pulse Oximetry (%) 99 03/07/18 21:00 Constitutional: Yes: Calm Eyes: Yes: Conjunctiva Clear HENT: Yes: Atraumatic Neck: Yes: Supple Cardiovascular: Yes: S1, S2 Respiratory: Yes: CTA Bilaterally, On Nasal O2 Gastrointestinal: Yes: Soft Edema: LLE: Trace, RLE: Trace Neurological: Yes: Oriented Psychiatric: Yes: Oriented Labs: CBC, BMP 03/08/18 10:45 03/08/18 10:45 INR, PTT INR 1.21 (0.82-1.09) H 02/28/18 21:10 Problem List - Problems (1) ESRD (end stage renal disease) Code(s): N18.6 - END STAGE RENAL DISEASE (2) Hyperkalemia Code(s): E87.5 - HYPERKALEMIA Assessment/Plan Current Medications Generic Name Dose Route Start Last Admin Trade Name Freq PRN Reason Stop Dose Admin Acetaminophen 650 mg 03/07/18 12:24 03/08/18 10:50 Tylenol - PO 650 mg Q6H PRN Administration PAIN Acetaminophen 325 mg 03/07/18 12:24 Tylenol - PO Q12H PRN PAIN LEVEL 6-10 Albuterol Sulfate 1 amp 03/07/18 12:24 03/08/18 07:34 Ventolin 0.083% Nebulizer Soln - NEB 1 amp Q4H PRN Administration SHORT OF BREATH/WHEEZING Albuterol Sulfate 1 amp 03/07/18 12:24 Ventolin 0.083% Nebulizer Soln - NEB Q3H PRN SHORT OF BREATH/WHEEZING Aspirin 81 mg 03/08/18 10:00 03/08/18 14:58 Asa - PO 81 mg DAILY [facility] Administration Atorvastatin Calcium 80 mg 03/07/18 22:00 03/07/18 23:13 Lipitor - PO 80 mg HS [facility] Administration Calcium Acetate 667 mg 03/07/18 17:30 03/08/18 14:57 Phoslo - PO 667 mg TIDCM [facility] Administration Clopidogrel Bisulfate 75 mg 03/07/18 12:00 03/08/18 14:57 Plavix - PO 75 mg DAILY [facility] Administration Fentanyl 25 mcg 03/07/18 11:46 Sublimaze Injection - IVPUSH [id number] PRN PAIN-PACU ORDER X 4 DOSES ONLY Heparin Sodium (Porcine) 5,000 unit 03/07/18 14:00 03/08/18 14:57 Heparin - SQ 5,000 unit TID [facility] Administration Piperacillin Sod/Tazobactam 50 mls @ 100 mls/hr 03/07/18 18:00 03/08/18 14:58 Sod 2.25 gm/ Dextrose IVPB 100 mls/hr Q8H-IV [facility] Administration Protocol Insulin Aspart 1 vial 03/07/18 16:30 03/08/18 15:01 Novolog Vial Sliding Scale - SQ 2 units ACHS [facility] Administration Protocol Insulin Detemir 5 units 03/07/18 22:00 03/07/18 23:23 Levemir Vial SQ 5 units HS [facility] Administration Levothyroxine Sodium 25 mcg 03/08/18 07:00 03/08/18 06:00 Synthroid - PO 25 mcg DAILY@0700 [facility] Administration Lisinopril 10 mg 03/08/18 22:00 Prinivil PO BID [facility] Metoprolol Succinate 100 mg 03/08/18 10:00 03/08/18 14:57 Toprol Xl - PO 100 mg DAILY [facility] Administration Multivitamins/Minerals/Vitamin C 1 tab 03/08/18 10:00 03/08/18 14:57 Tab-A-Vit - PO 1 tab DAILY [facility] Administration Pantoprazole Sodium 40 mg 03/08/18 10:00 03/08/18 14:57 Protonix - PO 40 mg DAILY [facility] Administration Senna 1 tab 03/07/18 22:00 03/07/18 23:19 Senna - PO 1 tab HS [facility] Administration Sertraline HCl 25 mg 03/07/18 22:00 03/07/18 23:18 Zoloft - PO 25 mg HS [facility] Administration Impression 1. ESRD 2. hyperkalemia 3. DM 4. CAD 5. PVD 6. DFU 7. anemia Plan - HD today - cardio input appreciated - vascular follow up - cont wound care - abx per ID - will follow - Right avF, 3:30, 2 k bath, 450 abf, aranesp 35 mcg received on Monday
--- NOTE | 2018-03-08 16:23 | PN ---
Progress Note, Physician History of Present Illness: S/P angioplasty No c/o foot pain Dyspneic at rest No c/o fever/ chills Afebrile WBC WNL - Current Medication List Current Medications: Active Medications Acetaminophen (Tylenol -) 650 mg PO Q6H PRN PRN Reason: PAIN Last Admin: 03/08/18 10:50 Dose: 650 mg Acetaminophen (Tylenol -) 325 mg PO Q12H PRN PRN Reason: PAIN LEVEL 6-10 Albuterol Sulfate (Ventolin 0.083% Nebulizer Soln -) 1 amp NEB Q4H PRN PRN Reason: SHORT OF BREATH/WHEEZING Last Admin: 03/08/18 07:34 Dose: 1 amp Albuterol Sulfate (Ventolin 0.083% Nebulizer Soln -) 1 amp NEB Q3H PRN PRN Reason: SHORT OF BREATH/WHEEZING Aspirin (Asa -) 81 mg PO DAILY [facility] Last Admin: 03/08/18 14:58 Dose: 81 mg Atorvastatin Calcium (Lipitor -) 80 mg PO HS [facility] Last Admin: 03/07/18 23:13 Dose: 80 mg Calcium Acetate (Phoslo -) 667 mg PO TIDCM [facility] Last Admin: 03/08/18 14:57 Dose: 667 mg Clopidogrel Bisulfate (Plavix -) 75 mg PO DAILY [facility] Last Admin: 03/08/18 14:57 Dose: 75 mg Fentanyl (Sublimaze Injection -) 25 mcg IVPUSH [id number] PRN PRN Reason: PAIN-PACU ORDER X 4 DOSES ONLY Heparin Sodium (Porcine) (Heparin -) 5,000 unit SQ TID [facility] Last Admin: 03/08/18 14:57 Dose: 5,000 unit Piperacillin Sod/Tazobactam (Sod 2.25 gm/ Dextrose) 50 mls @ 100 mls/hr IVPB Q8H-IV [facility]; Protocol Last Admin: 03/08/18 14:58 Dose: 100 mls/hr Insulin Aspart (Novolog Vial Sliding Scale -) 1 vial SQ ACHS [facility]; Protocol Last Admin: 03/08/18 15:01 Dose: 2 units Insulin Detemir (Levemir Vial) 5 units SQ HS [facility] Last Admin: 03/07/18 23:23 Dose: 5 units Levothyroxine Sodium (Synthroid -) 25 mcg PO DAILY@0700 [facility] Last Admin: 03/08/18 06:00 Dose: 25 mcg Lisinopril (Prinivil) 10 mg PO BID [facility] Metoprolol Succinate (Toprol Xl -) 100 mg PO DAILY [facility] Last Admin: 03/08/18 14:57 Dose: 100 mg Multivitamins/Minerals/Vitamin C (Tab-A-Vit -) 1 tab PO DAILY [facility] Last Admin: 03/08/18 14:57 Dose: 1 tab Pantoprazole Sodium (Protonix -) 40 mg PO DAILY [facility] Last Admin: 03/08/18 14:57 Dose: 40 mg Senna (Senna -) 1 tab PO [facility] Last Admin: 03/07/18 23:19 Dose: 1 tab Sertraline HCl (Zoloft -) 25 mg PO [facility] Last Admin: 03/07/18 23:18 Dose: 25 mg - Objective Vital Signs: Vital Signs Temperature 98.0 F 03/08/18 09:00 Pulse Rate 81 03/08/18 14:32 Respiratory Rate 17 03/08/18 14:32 Blood Pressure 156/65 03/08/18 14:32 O2 Sat by Pulse Oximetry (%) 99 03/07/18 21:00 Constitutional: Yes: No Distress Cardiovascular: Yes: Regular Rate and Rhythm, S1, S2 Respiratory: Yes: Other (few crepiataions, bases) Gastrointestinal: Yes: Normal Bowel Sounds, Soft. No: Tenderness Extremities: Yes: Other (dry gangrene, great toe) Labs: CBC, BMP 03/08/18 10:45 03/08/18 10:45 INR, PTT INR 1.21 (0.82-1.09) H 02/28/18 21:10 Assessment/Plan Gangrene , great toe Peripheral vascular disease S/P angioplasty ESRD Substitute augmentin po 500mg qd x 7d
[2018-03-08] MEDS: SERTRALINE HCL 25 MG TABLET (FP) PO SCH (21:39)
[2018-03-08] MEDS: SENNOSIDES 8.6MG TABLET (FP) PO SCH (21:39)
[2018-03-08] MEDS: ATORVASTATIN CA 80 MG TABLET (FP) PO SCH (21:40)
[2018-03-08] MEDS: INSULIN (LEVEMIR) 100 UNITS/ML UNITS SQ SCH (21:42)
[2018-03-08] MEDS: LISINOPRIL 10 MG TABLET (FP) PO SCH (21:42)
[2018-03-09] MEDS: INSULIN SLIDING SCALE (NOVOLOG) 1 VIAL SQ SCH ×4 (06:18→21:43)
[2018-03-09] MEDS: LEVOTHYROXINE NA 25 MCG TABLET (FP) PO SCH (06:18)
[2018-03-09] MEDS: HEPARIN NA (PORCINE) 5,000 UNITS/ML 1ML VIAL SQ SCH ×3 (06:18→21:44)
[2018-03-09] MEDS ORDERED: PT OWN MED DRAWER 7, Y5N ONE (09:18)
[2018-03-09] MEDS: ASPIRIN 81 MG CHEWABLE TABLETS PO SCH (09:20)
[2018-03-09] MEDS: CALCIUM ACETATE 667 MG CAPSULE (FP) PO SCH ×3 (09:20→18:24)
[2018-03-09] MEDS: LISINOPRIL 10 MG TABLET (FP) PO SCH ×2 (09:20→21:43)
[2018-03-09] MEDS: PANTOPRAZOLE 40 MG TABLET (FP) PO SCH (09:21)
[2018-03-09] MEDS: CLOPIDOGREL BISULFATE 75 MG TABLET (FP) PO SCH (09:21)
[2018-03-09] MEDS: AMOX TR/POT CLAV 500MG/125MG TABLETS (FP) PO SCH (09:21)
[2018-03-09] MEDS: MULTIVITAMINS (DAILY MVI) TABLET (FP) PO SCH (09:21)
[2018-03-09 10:25] VITALS: BMI 25.0
--- NOTE | 2018-03-09 11:29 | PN ---
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 He denies chest pain, palpitations, dyspnea. - Current Medication List Current Medications: Active Medications Acetaminophen (Tylenol -) 650 mg PO Q6H PRN PRN Reason: PAIN Last Admin: 03/08/18 22:25 Dose: 650 mg Acetaminophen (Tylenol -) 325 mg PO Q12H PRN PRN Reason: PAIN LEVEL 6-10 Albuterol Sulfate (Ventolin 0.083% Nebulizer Soln -) 1 amp NEB Q4H PRN PRN Reason: SHORT OF BREATH/WHEEZING Last Admin: 03/08/18 23:34 Dose: 1 amp Albuterol Sulfate (Ventolin 0.083% Nebulizer Soln -) 1 amp NEB Q3H PRN PRN Reason: SHORT OF BREATH/WHEEZING Amoxicillin/Clavulanate Potassium (Augmentin - 500mg Tablet) 1 tab PO DAILY@ 0800 [facility] Last Admin: 03/09/18 09:21 Dose: 1 tab Aspirin (Asa -) 81 mg PO DAILY [facility] Last Admin: 03/09/18 09:20 Dose: 81 mg Atorvastatin Calcium (Lipitor -) 80 mg PO HS [facility] Last Admin: 03/08/18 21:40 Dose: 80 mg Calcium Acetate (Phoslo -) 667 mg PO TIDCM [facility] Last Admin: 03/09/18 09:20 Dose: 667 mg Clopidogrel Bisulfate (Plavix -) 75 mg PO DAILY [facility] Last Admin: 03/09/18 09:21 Dose: 75 mg Fentanyl (Sublimaze Injection -) 25 mcg IVPUSH Q2METOUAG PRN PRN Reason: PAIN-PACU ORDER X 4 DOSES ONLY Heparin Sodium (Porcine) (Heparin -) 5,000 unit SQ TID [facility] Last Admin: 03/09/18 06:18 Dose: 5,000 unit Insulin Aspart (Novolog Vial Sliding Scale -) 1 vial SQ [facility]; Protocol Last Admin: 03/09/18 06:18 Dose: Not Given Insulin Detemir (Levemir Vial) 5 units SQ [facility] Last Admin: 03/08/18 21:42 Dose: 5 units Levothyroxine Sodium (Synthroid -) 25 mcg PO DAILY@0700 [facility] Last Admin: 03/09/18 06:18 Dose: 25 mcg Lisinopril (Prinivil) 10 mg PO BID [facility] Last Admin: 03/09/18 09:20 Dose: 10 mg Metoprolol Succinate (Toprol Xl -) 100 mg PO DAILY [facility] Last Admin: 03/09/18 09:20 Dose: 100 mg Multivitamins/Minerals/Vitamin C (Tab-A-Vit -) 1 tab PO DAILY [facility] Last Admin: 03/09/18 09:21 Dose: 1 tab Pantoprazole Sodium (Protonix -) 40 mg PO DAILY [facility] Last Admin: 03/09/18 09:21 Dose: 40 mg Senna (Senna -) 1 tab PO [facility] Last Admin: 03/08/18 21:39 Dose: 1 tab Sertraline HCl (Zoloft -) 25 mg PO [facility] Last Admin: 03/08/18 21:39 Dose: 25 mg - Objective Vital Signs: Vital Signs Temperature 97.8 F 03/09/18 09:26 Pulse Rate 80 03/09/18 09:26 Respiratory Rate 18 03/09/18 09:26 Blood Pressure 150/68 03/09/18 09:26 O2 Sat by Pulse Oximetry (%) 99 03/08/18 21:00 Constitutional: Yes: No Distress, Calm, Thin Neck: Yes: Supple Cardiovascular: Yes: Regular Rate and Rhythm Respiratory: Yes: Regular, Diminished Gastrointestinal: Yes: Normal Bowel Sounds, Soft Edema: Yes Edema: LLE: Trace, RLE: Trace Labs: CBC, BMP 03/08/18 10:45 03/08/18 10:45 INR, PTT INR 1.21 (0.82-1.09) H 02/28/18 21:10 Problem List - Problems (1) ASHD (arteriosclerotic heart disease) Code(s): I25.10 - ATHSCL HEART DISEASE OF [place] CORONARY ARTERY W/O ANG PCTRS (2) CHF (congestive heart failure), NYHA class IV Code(s): I50.9 - HEART FAILURE, UNSPECIFIED Qualifiers: Congestive heart failure type: systolic Congestive heart failure chronicity : acute on chronic Qualified Code(s): I50.23 - Acute on chronic systolic ( congestive) heart failure (3) Diabetes Code(s): E11.9 - TYPE 2 DIABETES MELLITUS WITHOUT COMPLICATIONS Qualifiers: Diabetes mellitus type: type 2 (4) ESRD (end stage renal disease) Code(s): N18.6 - END STAGE RENAL DISEASE (5) Gangrene Code(s): I96 - GANGRENE, NOT ELSEWHERE CLASSIFIED (6) HTN (hypertension) Code(s): I10 - ESSENTIAL (PRIMARY) HYPERTENSION Qualifiers: Hypertension type: essential hypertension Qualified Code(s): I10 - Essential (primary) hypertension (7) PVD (peripheral vascular disease) Code(s): I73.9 - PERIPHERAL VASCULAR DISEASE, UNSPECIFIED (8) Pleural effusion Code(s): J90 - PLEURAL EFFUSION, NOT ELSEWHERE CLASSIFIED (9) S/P CABG (coronary artery bypass graft) Code(s): Z95.1 - PRESENCE OF AORTOCORONARY BYPASS GRAFT (10) ICD (implantable cardioverter-defibrillator) in place Code(s): Z95.810 - PRESENCE OF AUTOMATIC (IMPLANTABLE) CARDIAC DEFIBRILLATOR (11) S/P peripheral artery angioplasty with stent placement Code(s): Z95.820 - PERIPHERAL VASCULAR ANGIOPLASTY STATUS W IMPLANTS AND GRAFTS Assessment/Plan 1. Acute on Chronic Systolic Heart Failure referable to ischemic dilated cardiomyopathy/severe LV systolic dysfunction with left effusion improving 2. CAD post remote MA post CABG angina pectoris, stable 3. Post prophylactic ICD implant ([employer]'s device) 4. HTN 5. IDDM 6. Hypercholesterolemia 7. PAD with left toe gangrene s/p aortogram, LLE angiogram, SFA atherectomy, DCB SFA angioplasty, with sfa stent 8. ESRD on HD with hyperkalemia 9. Anemia 10. Hypothyroidism PLAN: 1. Continue Toprol XL 100 qd 2. Increased Lisinopril 10 bid and titrate dosage as tolerated and hemodynamics permitting 3. Continue ASA 81 qd and Plavix 75 qd 4. Continue Lipitor 80 qhs 5. Volume removal via UF/HD 6. Complete abx course, wound care, DVT and GI prophylaxis
--- NOTE | 2018-03-09 12:52 | PN ---
Progress Note, Physician History of Present Illness: PULMONARY ALERT,FEELING BETTER,STILL C/O SOB WITH EXERTION - Current Medication List Current Medications: Active Medications Acetaminophen (Tylenol -) 650 mg PO Q6H PRN PRN Reason: PAIN Last Admin: 03/08/18 22:25 Dose: 650 mg Acetaminophen (Tylenol -) 325 mg PO Q12H PRN PRN Reason: PAIN LEVEL 6-10 Albuterol Sulfate (Ventolin 0.083% Nebulizer Soln -) 1 amp NEB Q4H PRN PRN Reason: SHORT OF BREATH/WHEEZING Last Admin: 03/08/18 23:34 Dose: 1 amp Albuterol Sulfate (Ventolin 0.083% Nebulizer Soln -) 1 amp NEB Q3H PRN PRN Reason: SHORT OF BREATH/WHEEZING Amoxicillin/Clavulanate Potassium (Augmentin - 500mg Tablet) 1 tab PO DAILY@ 0800 [facility] Last Admin: 03/09/18 09:21 Dose: 1 tab Aspirin (Asa -) 81 mg PO DAILY [facility] Last Admin: 03/09/18 09:20 Dose: 81 mg Atorvastatin Calcium (Lipitor -) 80 mg PO [facility] Last Admin: 03/08/18 21:40 Dose: 80 mg Calcium Acetate (Phoslo -) 667 mg PO TIDCM [facility] Last Admin: 03/09/18 09:20 Dose: 667 mg Clopidogrel Bisulfate (Plavix -) 75 mg PO DAILY [facility] Last Admin: 03/09/18 09:21 Dose: 75 mg Fentanyl (Sublimaze Injection -) 25 mcg IVPUSH [id number] PRN PRN Reason: PAIN-PACU ORDER X 4 DOSES ONLY Heparin Sodium (Porcine) (Heparin -) 5,000 unit SQ TID [facility] Last Admin: 03/09/18 06:18 Dose: 5,000 unit Insulin Aspart (Novolog Vial Sliding Scale -) 1 vial SQ [facility]; Protocol Last Admin: 03/09/18 11:47 Dose: 2 units Insulin Detemir (Levemir Vial) 5 units SQ [facility] Last Admin: 03/08/18 21:42 Dose: 5 units Levothyroxine Sodium (Synthroid -) 25 mcg PO DAILY@0700 [facility] Last Admin: 03/09/18 06:18 Dose: 25 mcg Lisinopril (Prinivil) 10 mg PO BID [facility] Last Admin: 03/09/18 09:20 Dose: 10 mg Metoprolol Succinate (Toprol Xl -) 100 mg PO DAILY [facility] Last Admin: 03/09/18 09:20 Dose: 100 mg Multivitamins/Minerals/Vitamin C (Tab-A-Vit -) 1 tab PO DAILY [facility] Last Admin: 03/09/18 09:21 Dose: 1 tab Pantoprazole Sodium (Protonix -) 40 mg PO DAILY [facility] Last Admin: 03/09/18 09:21 Dose: 40 mg Senna (Senna -) 1 tab PO [facility] Last Admin: 03/08/18 21:39 Dose: 1 tab Sertraline HCl (Zoloft -) 25 mg PO [facility] Last Admin: 03/08/18 21:39 Dose: 25 mg - Objective Vital Signs: Vital Signs Temperature 97.8 F 03/09/18 09:26 Pulse Rate 80 03/09/18 09:26 Respiratory Rate 18 03/09/18 09:26 Blood Pressure 150/68 03/09/18 09:26 O2 Sat by Pulse Oximetry (%) 99 03/08/18 21:00 Constitutional: Yes: Well Nourished, Calm Eyes: Yes: WNL HENT: Yes: WNL Neck: Yes: WNL Cardiovascular: Yes: Regular Rate and Rhythm, S1, S2 Respiratory: Yes: Diminished (BIBASILAR CRACKLES) Gastrointestinal: Yes: Normal Bowel Sounds, Soft Extremities: Yes: WNL Labs: CBC, BMP 03/08/18 10:45 03/08/18 10:45 INR, PTT INR 1.21 (0.82-1.09) H 02/28/18 21:10 Problem List - Problems (1) CHF (congestive heart failure), NYHA class IV Code(s): I50.9 - HEART FAILURE, UNSPECIFIED Qualifiers: Congestive heart failure type: systolic Congestive heart failure chronicity : acute on chronic Qualified Code(s): I50.23 - Acute on chronic systolic ( congestive) heart failure (2) ESRD (end stage renal disease) Code(s): N18.6 - END STAGE RENAL DISEASE (3) COPD (chronic obstructive pulmonary disease) Code(s): J44.9 - CHRONIC OBSTRUCTIVE PULMONARY DISEASE, UNSPECIFIED (4) PVD (peripheral vascular disease) Code(s): I73.9 - PERIPHERAL VASCULAR DISEASE, UNSPECIFIED (5) ASHD (arteriosclerotic heart disease) Code(s): I25.10 - ATHSCL HEART DISEASE OF [place] CORONARY ARTERY W/O ANG PCTRS (6) Hyperkalemia Code(s): E87.5 - HYPERKALEMIA (7) S/P CABG (coronary artery bypass graft) Code(s): Z95.1 - PRESENCE OF AORTOCORONARY BYPASS GRAFT (8) HTN (hypertension) Code(s): I10 - ESSENTIAL (PRIMARY) HYPERTENSION Qualifiers: Hypertension type: essential hypertension Qualified Code(s): I10 - Essential (primary) hypertension (9) Diabetes Code(s): E11.9 - TYPE 2 DIABETES MELLITUS WITHOUT COMPLICATIONS Qualifiers: Diabetes mellitus type: type 2 (10) Gangrene Code(s): I96 - GANGRENE, NOT ELSEWHERE CLASSIFIED (11) Dyspnea Code(s): R06.00 - DYSPNEA, UNSPECIFIED (12) Pleural effusion Code(s): J90 - PLEURAL EFFUSION, NOT ELSEWHERE CLASSIFIED Assessment/Plan IMP DYSPNEA IMPROVING ACUTE ON CHRONIC SYSTOLIC HF SEVERE LV DYSFUNCTION CARDIOMYOPATHY ESRD ON HD LEFT PLEURAL EFFUSION COPD HTN ASHD S/P CABG,S/P PPM DM GANGRENE LEFT GREAT TOE S/P ANGIO,STENT PLAN HD PER RENAL INHALED BRONCHODILATORS O2 F/U CHEST X-RAYS DR GAMINO Problem List - Problems (1) CHF (congestive heart failure), NYHA class IV Code(s): I50.9 - HEART FAILURE, UNSPECIFIED (2) ESRD (end stage renal disease) Code(s): N18.6 - END STAGE RENAL DISEASE (3) COPD (chronic obstructive pulmonary disease) Code(s): J44.9 - CHRONIC OBSTRUCTIVE PULMONARY DISEASE, UNSPECIFIED (4) PVD (peripheral vascular disease) Code(s): I73.9 - PERIPHERAL VASCULAR DISEASE, UNSPECIFIED (5) ASHD (arteriosclerotic heart disease) Code(s): I25.10 - ATHSCL HEART DISEASE OF [place] CORONARY ARTERY W/O ANG PCTRS (6) Hyperkalemia Code(s): E87.5 - HYPERKALEMIA (7) S/P CABG (coronary artery bypass graft) Code(s): Z95.1 - PRESENCE OF AORTOCORONARY BYPASS GRAFT (8) HTN (hypertension) Code(s): I10 - ESSENTIAL (PRIMARY) HYPERTENSION (9) Diabetes Code(s): E11.9 - TYPE 2 DIABETES MELLITUS WITHOUT COMPLICATIONS (10) Gangrene Code(s): I96 - GANGRENE, NOT ELSEWHERE CLASSIFIED (11) Dyspnea Code(s): R06.00 - DYSPNEA, UNSPECIFIED (12) Pleural effusion Code(s): J90 - PLEURAL EFFUSION, NOT ELSEWHERE CLASSIFIED
--- NOTE | 2018-03-09 13:25 | PN ---
Progress Note (short form) - Note Progress Note: patient seen and examined. chart reviewed Feels better with decreased shortness of breath Denies chest pain Pain improved POD #2 Vital Signs Temp 97.8 F 03/09/18 09:26 Pulse 80 03/09/18 09:26 Resp 18 03/09/18 09:26 BP 150/68 03/09/18 09:26 Pulse Ox 99 03/08/18 21:00 Intake & Output 03/08/18 03/09/18 03/09/18 23:59 11:59 23:59 Intake Total 200 Balance 200 Weight 155 lb Intake: Oral 200 Other: Voiding Method Urinal Urinal Bowel Movement No Height 5 ft 6 in Body Mass Index (BMI) 25.0 Weight Measurement Method Chair Scale Active Medications Acetaminophen (Tylenol -) 650 mg PO Q6H PRN PRN Reason: PAIN Last Admin: 03/08/18 22:25 Dose: 650 mg Acetaminophen (Tylenol -) 325 mg PO Q12H PRN PRN Reason: PAIN LEVEL 6-10 Albuterol Sulfate (Ventolin 0.083% Nebulizer Soln -) 1 amp NEB Q4H PRN PRN Reason: SHORT OF BREATH/WHEEZING Last Admin: 03/08/18 23:34 Dose: 1 amp Albuterol Sulfate (Ventolin 0.083% Nebulizer Soln -) 1 amp NEB Q3H PRN PRN Reason: SHORT OF BREATH/WHEEZING Amoxicillin/Clavulanate Potassium (Augmentin - 500mg Tablet) 1 tab PO DAILY@ 0800 [facility] Last Admin: 03/09/18 09:21 Dose: 1 tab Aspirin (Asa -) 81 mg PO DAILY [facility] Last Admin: 03/09/18 09:20 Dose: 81 mg Atorvastatin Calcium (Lipitor -) 80 mg PO HS [facility] Last Admin: 03/08/18 21:40 Dose: 80 mg Calcium Acetate (Phoslo -) 667 mg PO TIDCM [facility] Last Admin: 03/09/18 09:20 Dose: 667 mg Clopidogrel Bisulfate (Plavix -) 75 mg PO DAILY [facility] Last Admin: 03/09/18 09:21 Dose: 75 mg Fentanyl (Sublimaze Injection -) 25 mcg IVPUSH [id number] PRN PRN Reason: PAIN-PACU ORDER X 4 DOSES ONLY Heparin Sodium (Porcine) (Heparin -) 5,000 unit SQ TID [facility] Last Admin: 03/09/18 06:18 Dose: 5,000 unit Insulin Aspart (Novolog Vial Sliding Scale -) 1 vial SQ [facility]; Protocol Last Admin: 03/09/18 11:47 Dose: 2 units Insulin Detemir (Levemir Vial) 5 units SQ [facility] Last Admin: 03/08/18 21:42 Dose: 5 units Levothyroxine Sodium (Synthroid -) 25 mcg PO DAILY@0700 [facility] Last Admin: 03/09/18 06:18 Dose: 25 mcg Lisinopril (Prinivil) 10 mg PO BID [facility] Last Admin: 03/09/18 09:20 Dose: 10 mg Metoprolol Succinate (Toprol Xl -) 100 mg PO DAILY [facility] Last Admin: 03/09/18 09:20 Dose: 100 mg Multivitamins/Minerals/Vitamin C (Tab-A-Vit -) 1 tab PO DAILY [facility] Last Admin: 03/09/18 09:21 Dose: 1 tab Pantoprazole Sodium (Protonix -) 40 mg PO DAILY [facility] Last Admin: 03/09/18 09:21 Dose: 40 mg Senna (Senna -) 1 tab PO [facility] Last Admin: 03/08/18 21:39 Dose: 1 tab Sertraline HCl (Zoloft -) 25 mg PO [facility] Last Admin: 03/08/18 21:39 Dose: 25 mg CBC, BMP 03/08/18 10:45 03/08/18 10:45 f/u cxr - pending. physical Constitutional: Yes: No Distress Cardiovascular: Yes: Regular Rate and Rhythm Respiratory: Yes: Diminished At bases Gastrointestinal: Yes: Normal Bowel Sounds, Soft. No: Tenderness Extremities: Yes: Other --dressing in place assessment and plan POD#2 Aortogram, LLE angiogram, SFA atherectomy, DCB SFA angioplasty, with sfa stent for left chronic toe gangrene other problems as listed Clinically improved Follow-up chest x-ray Continue present care Dialysis tomorrow If stable will consider discharge after dialysis tomorrow Problem List - Problems (1) ASHD (arteriosclerotic heart disease) Code(s): I25.10 - ATHSCL HEART DISEASE OF [place] CORONARY ARTERY W/O ANG PCTRS (2) COPD (chronic obstructive pulmonary disease) Code(s): J44.9 - CHRONIC OBSTRUCTIVE PULMONARY DISEASE, UNSPECIFIED (3) Diabetes Code(s): E11.9 - TYPE 2 DIABETES MELLITUS WITHOUT COMPLICATIONS Qualifiers: Diabetes mellitus type: type 2 (4) Dyspnea Code(s): R06.00 - DYSPNEA, UNSPECIFIED (5) ESRD (end stage renal disease) Code(s): N18.6 - END STAGE RENAL DISEASE (6) Gangrene Code(s): I96 - G[place]GR[place], NOT ELSEWHERE CLASSIFIED (7) HTN (hypertension) Code(s): I10 - ESSENTIAL (PRIMARY) HYPERTENSION Qualifiers: Hypertension type: essential hypertension Qualified Code(s): I10 - Essential (primary) hypertension (8) PVD (peripheral vascular disease) Code(s): I73.9 - PERIPHERAL VASCULAR DISEASE, UNSPECIFIED (9) S/P CABG (coronary artery bypass graft) Code(s): Z95.1 - PRESENCE OF AORTOCORONARY BYPASS GRAFT
[2018-03-09] MEDS ORDERED: SODIUM CHLORIDE 250 ML IV PRN (16:24)
--- NOTE | 2018-03-09 16:24 | PN ---
Progress Note, Physician History of Present Illness: Pt seen and examined at bedside. He feels that the pain in his leg is improved. - Current Medication List Current Medications: Active Medications Acetaminophen (Tylenol -) 650 mg PO Q6H PRN PRN Reason: PAIN Last Admin: 03/08/18 22:25 Dose: 650 mg Acetaminophen (Tylenol -) 325 mg PO Q12H PRN PRN Reason: PAIN LEVEL 6-10 Albuterol Sulfate (Ventolin 0.083% Nebulizer Soln -) 1 amp NEB Q4H PRN PRN Reason: SHORT OF BREATH/WHEEZING Last Admin: 03/08/18 23:34 Dose: 1 amp Albuterol Sulfate (Ventolin 0.083% Nebulizer Soln -) 1 amp NEB Q3H PRN PRN Reason: SHORT OF BREATH/WHEEZING Amoxicillin/Clavulanate Potassium (Augmentin - 500mg Tablet) 1 tab PO DAILY@ 0800 [facility] Last Admin: 03/09/18 09:21 Dose: 1 tab Aspirin (Asa -) 81 mg PO DAILY [facility] Last Admin: 03/09/18 09:20 Dose: 81 mg Atorvastatin Calcium (Lipitor -) 80 mg PO [facility] Last Admin: 03/08/18 21:40 Dose: 80 mg Calcium Acetate (Phoslo -) 667 mg PO TIDCM [facility] Last Admin: 03/09/18 14:33 Dose: Not Given Clopidogrel Bisulfate (Plavix -) 75 mg PO DAILY [facility] Last Admin: 03/09/18 09:21 Dose: 75 mg Fentanyl (Sublimaze Injection -) 25 mcg IVPUSH [id number] PRN PRN Reason: PAIN-PACU ORDER X 4 DOSES ONLY Heparin Sodium (Porcine) (Heparin -) 5,000 unit SQ TID [facility] Last Admin: 03/09/18 15:18 Dose: 5,000 unit Insulin Aspart (Novolog Vial Sliding Scale -) 1 vial SQ [facility]; Protocol Last Admin: 03/09/18 11:47 Dose: 2 units Insulin Detemir (Levemir Vial) 5 units SQ [facility] Last Admin: 03/08/18 21:42 Dose: 5 units Levothyroxine Sodium (Synthroid -) 25 mcg PO DAILY@0700 [facility] Last Admin: 03/09/18 06:18 Dose: 25 mcg Lisinopril (Prinivil) 10 mg PO BID [facility] Last Admin: 03/09/18 09:20 Dose: 10 mg Metoprolol Succinate (Toprol Xl -) 100 mg PO DAILY [facility] Last Admin: 03/09/18 09:20 Dose: 100 mg Multivitamins/Minerals/Vitamin C (Tab-A-Vit -) 1 tab PO DAILY [facility] Last Admin: 03/09/18 09:21 Dose: 1 tab Pantoprazole Sodium (Protonix -) 40 mg PO DAILY [facility] Last Admin: 03/09/18 09:21 Dose: 40 mg Senna (Senna -) 1 tab PO HS [facility] Last Admin: 03/08/18 21:39 Dose: 1 tab Sertraline HCl (Zoloft -) 25 mg PO [facility] Last Admin: 03/08/18 21:39 Dose: 25 mg - Objective Vital Signs: Vital Signs Temperature 98.1 F 03/09/18 14:41 Pulse Rate 81 03/09/18 14:41 Respiratory Rate 18 03/09/18 14:41 Blood Pressure 144/84 03/09/18 14:41 O2 Sat by Pulse Oximetry (%) 99 03/08/18 21:00 Constitutional: Yes: Calm Eyes: Yes: Conjunctiva Clear Cardiovascular: Yes: S1, S2 Respiratory: Yes: On Nasal O2 Gastrointestinal: Yes: Normal Bowel Sounds, Soft Genitourinary: Yes: WNL Edema: No Wound/Incision: Yes: Other (open to air) Neurological: Yes: Oriented Psychiatric: Yes: Oriented Labs: CBC, BMP 03/08/18 10:45 03/08/18 10:45 INR, PTT INR 1.21 (0.82-1.09) H 02/28/18 21:10 Problem List - Problems (1) ESRD (end stage renal disease) Code(s): N18.6 - END STAGE RENAL DISEASE (2) Hyperkalemia Code(s): E87.5 - HYPERKALEMIA Assessment/Plan Current Medications Generic Name Dose Route Start Last Admin Trade Name Freq PRN Reason Stop Dose Admin Acetaminophen 650 mg 03/07/18 12:24 03/08/18 22:25 Tylenol - PO 650 mg Q6H PRN Administration PAIN Acetaminophen 325 mg 03/07/18 12:24 Tylenol - PO Q12H PRN PAIN LEVEL 6-10 Albuterol Sulfate 1 amp 03/07/18 12:24 03/08/18 23:34 Ventolin 0.083% Nebulizer Soln - NEB 1 amp Q4H PRN Administration SHORT OF BREATH/WHEEZING Albuterol Sulfate 1 amp 03/07/18 12:24 Ventolin 0.083% Nebulizer Soln - NEB Q3H PRN SHORT OF BREATH/WHEEZING Amoxicillin/Clavulanate Potassium 1 tab 03/09/18 08:00 03/09/18 09:21 Augmentin - 500mg Tablet PO 1 tab DAILY@0800 [facility] Administration Aspirin 81 mg 03/08/18 10:00 03/09/18 09:20 Asa - PO 81 mg DAILY [facility] Administration Atorvastatin Calcium 80 mg 03/07/18 22:00 03/08/18 21:40 Lipitor - PO 80 mg HS [facility] Administration Calcium Acetate 667 mg 03/07/18 17:30 03/09/18 14:33 Phoslo - PO Not Given TIDCM [facility] Clopidogrel Bisulfate 75 mg 03/07/18 12:00 03/09/18 09:21 Plavix - PO 75 mg DAILY [facility] Administration Fentanyl 25 mcg 03/07/18 11:46 Sublimaze Injection - IVPUSH [id number] PRN PAIN-PACU ORDER X 4 DOSES ONLY Heparin Sodium (Porcine) 5,000 unit 03/07/18 14:00 03/09/18 15:18 Heparin - SQ 5,000 unit TID [facility] Administration Insulin Aspart 1 vial 03/07/18 16:30 03/09/18 11:47 Novolog Vial Sliding Scale - SQ 2 units ACHS [facility] Administration Protocol Insulin Detemir 5 units 03/07/18 22:00 03/08/18 21:42 Levemir Vial SQ 5 units HS [facility] Administration Levothyroxine Sodium 25 mcg 03/08/18 07:00 03/09/18 06:18 Synthroid - PO 25 mcg DAILY@0700 [facility] Administration Lisinopril 10 mg 03/08/18 22:00 03/09/18 09:20 Prinivil PO 10 mg BID [facility] Administration Metoprolol Succinate 100 mg 03/08/18 10:00 03/09/18 09:20 Toprol Xl - PO 100 mg DAILY [facility] Administration Multivitamins/Minerals/Vitamin C 1 tab 03/08/18 10:00 03/09/18 09:21 Tab-A-Vit - PO 1 tab DAILY [facility] Administration Pantoprazole Sodium 40 mg 03/08/18 10:00 03/09/18 09:21 Protonix - PO 40 mg DAILY [facility] Administration Senna 1 tab 03/07/18 22:00 03/08/18 21:39 Senna - PO 1 tab HS [facility] Administration Sertraline HCl 25 mg 03/07/18 22:00 03/08/18 21:39 Zoloft - PO 25 mg HS [facility] Administration Impression 1. ESRD 2. hyperkalemia 3. DM 4. CAD 5. PVD 6. DFU 7. anemia Plan - HD in am - orders written - vascular follow up - renal diet - abx per ID - will follow - Right avF, 3:30, 2 k bath, 450 abf, aranesp 35 mcg received on Monday
[2018-03-09] MEDS: ALBUTEROL SO4 0.083% IH SOL 2.5 MG/3 ML VIAL.NEB. NEB PRN (20:29)
[2018-03-09] MEDS ORDERED: oxyCODONE HCL 5 MG TABLET PO ONE ×2 (21:29)
[2018-03-09] MEDS: ATORVASTATIN CA 80 MG TABLET (FP) PO SCH (21:43)
[2018-03-09] MEDS: SERTRALINE HCL 25 MG TABLET (FP) PO SCH (21:43)
[2018-03-09] MEDS: SENNOSIDES 8.6MG TABLET (FP) PO SCH (21:43)
[2018-03-09] MEDS: INSULIN (LEVEMIR) 100 UNITS/ML UNITS SQ SCH (21:44)
[2018-03-10] MEDS: ALBUTEROL SO4 0.083% IH SOL 2.5 MG/3 ML VIAL.NEB. NEB PRN (00:16)
[2018-03-10] MEDS: INSULIN SLIDING SCALE (NOVOLOG) 1 VIAL SQ SCH ×2 (06:07→12:15)
[2018-03-10] MEDS: LEVOTHYROXINE NA 25 MCG TABLET (FP) PO SCH (06:08)
[2018-03-10] MEDS: HEPARIN NA (PORCINE) 5,000 UNITS/ML 1ML VIAL SQ SCH (06:08)
[2018-03-10] MEDS ORDERED: EPOETIN ALFA 3,000 UNIT/1 ML ML IVPUSH ONE (08:30)
[2018-03-10 09:17] LABS: HEMATOCRIT 28.4 % (35.4-49); HEMOGLOBIN 9.1 GM/dL (11.7-16.9); MCH 28.9 pg (25.7-33.7); MCHC 32.2 g/dl (32.0-35.9); MEAN CELL VOLUME 89.7 fl (80-96); MEAN PLT VOLUME 9.4 fl (7.5-11.1); PLATELET COUNT 175 K/MM3 (134-434); RBC 3.17 M/mm3 (4.00-5.60); RDW 19.3 % (11.9-15.9); WHITE BLOOD COUNT 9.8 K/mm3 (4.0-10.0)
[2018-03-10 10:13] LABS: ANION GAP 10 (8-16); BLOOD UREA NITROGEN 19 mg/dL (7-18); CALCIUM 8.2 mg/dL (8.5-10.1); CHLORIDE 99 mmol/L (98-107); CO2 29 mmol/L (21-32); CREATININE 5.3 mg/dL (0.7-1.3); GLUCOSE,RANDOM 115 mg/dL (74-106); POTASSIUM 3.6 mmol/L (3.5-5.1); SODIUM 138 mmol/L (136-145)
--- NOTE | 2018-03-10 10:51 | PN ---
Progress Note (short form) - Note Progress Note: RENAL Pt is awake and alert currently on hemodialysis c/o right arm numbness and pain, where he has his fistula Last Vital Signs Temp Pulse Resp BP Pulse Ox 98.0 F 82 18 167/68 98 03/10/18 07:50 03/10/18 08:30 03/10/18 08:30 03/10/18 08:30 03/09/18 21:00 lungs decreased breath sounds cvs 1s2 rr abd soft ext +edema of upper extremity, fistula is working neuro a+o CBC, BMP 03/10/18 08:00 03/10/18 08:00 Current Medications Generic Name Dose Route Start Last Admin Trade Name Freq PRN Reason Stop Dose Admin Acetaminophen 650 mg 03/07/18 12:24 03/08/18 22:25 Tylenol - PO 650 mg Q6H PRN Administration PAIN Acetaminophen 325 mg 03/07/18 12:24 03/09/18 21:45 Tylenol - PO 325 mg Q12H PRN Administration PAIN LEVEL 6-10 Albuterol Sulfate 1 amp 03/07/18 12:24 03/10/18 00:16 Ventolin 0.083% Nebulizer Soln - NEB 1 amp Q4H PRN Administration SHORT OF BREATH/WHEEZING Albuterol Sulfate 1 amp 03/07/18 12:24 Ventolin 0.083% Nebulizer Soln - NEB Q3H PRN SHORT OF BREATH/WHEEZING Amoxicillin/Clavulanate Potassium 1 tab 03/09/18 08:00 03/09/18 09:21 Augmentin - 500mg Tablet PO 1 tab DAILY@0800 [facility] Administration Aspirin 81 mg 03/08/18 10:00 03/09/18 09:20 Asa - PO 81 mg DAILY [facility] Administration Atorvastatin Calcium 80 mg 03/07/18 22:00 03/09/18 21:43 Lipitor - PO 80 mg HS [facility] Administration Calcium Acetate 667 mg 03/07/18 17:30 03/09/18 18:24 Phoslo - PO 667 mg TIDCM [facility] Administration Clopidogrel Bisulfate 75 mg 03/07/18 12:00 03/09/18 09:21 Plavix - PO 75 mg DAILY [facility] Administration Fentanyl 25 mcg 03/07/18 11:46 Sublimaze Injection - IVPUSH [id number] PRN PAIN-PACU ORDER X 4 DOSES ONLY Heparin Sodium (Porcine) 5,000 unit 03/07/18 14:00 03/10/18 06:08 Heparin - SQ 5,000 unit TID [facility] Administration Heparin Sodium (Porcine) 500 unit 03/10/18 16:24 Heparin - IVPUSH 03/10/18 16:25 ONCE ONE Sodium Chloride 250 mls @ 3,000 mls/hr 03/09/18 16:24 Normal Saline - IV 03/10/18 16:24 PRN PRN Hypotension during Dialysis Insulin Aspart 1 vial 03/07/18 16:30 03/10/18 06:07 Novolog Vial Sliding Scale - SQ Not Given ACHS [facility] Protocol Insulin Detemir 5 units 03/07/18 22:00 03/09/18 21:44 Levemir Vial SQ 5 units HS [facility] Administration Levothyroxine Sodium 25 mcg 03/08/18 07:00 03/10/18 06:08 Synthroid - PO 25 mcg DAILY@0700 [facility] Administration Lisinopril 10 mg 03/08/18 22:00 03/09/18 21:43 Prinivil PO 10 mg BID [facility] Administration Metoprolol Succinate 100 mg 03/08/18 10:00 03/09/18 09:20 Toprol Xl - PO 100 mg DAILY [facility] Administration Multivitamins/Minerals/Vitamin C 1 tab 03/08/18 10:00 03/09/18 09:21 Tab-A-Vit - PO 1 tab DAILY [facility] Administration Pantoprazole Sodium 40 mg 03/08/18 10:00 03/09/18 09:21 Protonix - PO 40 mg DAILY [facility] Administration Senna 1 tab 03/07/18 22:00 03/09/18 21:43 Senna - PO 1 tab HS [facility] Administration Sertraline HCl 25 mg 03/07/18 22:00 03/09/18 21:43 Zoloft - PO 25 mg HS [facility] Administration IMPRESSION 1. ESRD 2. hyperkalemia 3. DM 4. CAD- s/p chf 5. PVD 6. DFU 7. anemia Plan - vascular follow up- needs to check avf - renal diet - abx per ID - calcium is normal when corrected MV
[2018-03-10] MEDS ORDERED: PT OWN MED DRAWER 7, Y5N ONE (12:12)
[2018-03-10] MEDS: CALCIUM ACETATE 667 MG CAPSULE (FP) PO SCH ×2 (12:14)
[2018-03-10] MEDS: MULTIVITAMINS (DAILY MVI) TABLET (FP) PO SCH (12:14)
[2018-03-10] MEDS: ASPIRIN 81 MG CHEWABLE TABLETS PO SCH (12:14)
[2018-03-10] MEDS: LISINOPRIL 10 MG TABLET (FP) PO SCH (12:14)
[2018-03-10] MEDS: CLOPIDOGREL BISULFATE 75 MG TABLET (FP) PO SCH (12:14)
[2018-03-10] MEDS: PANTOPRAZOLE 40 MG TABLET (FP) PO SCH (12:14)
[2018-03-10] MEDS: AMOX TR/POT CLAV 500MG/125MG TABLETS (FP) PO SCH (12:15)
[2018-03-10 12:23] VITALS: BP 166/69; PULSE 81; TEMP 97.6
--- NOTE | 2018-03-10 13:16 | DS ---
Physical Examination Vital Signs: Vital Signs Temperature 97.6 F 03/10/18 12:22 Pulse Rate 81 03/10/18 12:22 Respiratory Rate 17 03/10/18 12:22 Blood Pressure 166/69 03/10/18 12:22 O2 Sat by Pulse Oximetry (%) 98 03/10/18 12:22 Findings/Remarks: feels better comfortable decreased sob. cxr- improved had dialysis today Constitutional: Yes: No Distress, Calm Eyes: Yes: Conjunctiva Clear Neck: Yes: Supple Cardiovascular: Yes: Regular Rate and Rhythm Respiratory: Yes: Diminished Gastrointestinal: Yes: Soft Edema: No Wound/Incision: Yes: Dressing Dry and Intact Psychiatric: Yes: Alert Labs: CBC, BMP 03/10/18 08:00 03/10/18 08:00 Discharge Summary Reason For Visit: TOE NECROSIS CHF Current Active Problems ASHD (arteriosclerotic heart disease) (Acute) CHF (congestive heart failure), NYHA class IV (Acute) COPD (chronic obstructive pulmonary disease) (Acute) Diabetes (Acute) Dyspnea (Acute) ESRD (end stage renal disease) (Acute) Gangrene (Acute) HTN (hypertension) (Acute) Hyperkalemia (Acute) ICD (implantable cardioverter-defibrillator) in place (Acute) PVD (peripheral vascular disease) (Acute) Pleural effusion (Acute) S/P CABG (coronary artery bypass graft) (Acute) S/P peripheral artery angioplasty with stent placement (Acute) Hospital Course: 72 year old male with a pmh CAD s/p quadruple bypass, IDDM, ESRD ([facility]), hypothyroid presents to the emergency department from [facility] complaining of poorly healed L great toe laceration on the L toe of one month duration s/p mechanical fall. Patient does not feel pain on the toe and said that it has been progressively becoming more and more black and dry. 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 cxr - showed bilateral pleural effusion/ chf dialized . pt better stable for discharge on po abx Local care Need to follow with cardiology/ vascular surgeon . Dialysis per renal meds reconclled Discussed with nursing staff Will d/c back to residential today Discussed with pt / agree with same D/c time 40 min in examining/ documenting and coordating care Condition: Improved - Instructions Disposition: [facility] - Home Medications Comprehensive Discharge Medication List: Ambulatory Orders Acetaminophen 650 mg PO Q4H PRN 02/28/18 Albuterol 2.5/Ipratropium 0.5 [Duoneb -] 1 amp NEB TID 02/28/18 Aspirin [ASA -] 81 mg PO DAILY 02/28/18 Atorvastatin Ca [Lipitor] 80 mg PO HS 02/28/18 Calcium Acetate [Phoslo -] 667 mg PO TID 02/28/18 Clopidogrel Bisulfate [Plavix -] 75 mg PO DAILY 02/28/18 Insulin (LOG) Aspart [NovoLOG -] 0 units SQ TID 02/28/18 Insulin Glargine,Hum.rec.anlog [Lantus] 16 unit SQ HS 02/28/18 Levothyroxine [Synthroid -] 25 mcg PO DAILY 02/28/18 Lisinopril 10 mg PO DAILY 02/28/18 Metoprolol Succinate [Toprol Xl] 100 mg PO DAILY 02/28/18 Multivitamin [Multiple Vitamins] 1 each PO DAILY 02/28/18 Oxycodone HCl/Acetaminophen [Percocet 5-325 mg Tablet] 1 - 2 tab PO BID PRN Pantoprazole Sodium 40 mg PO DAILY 02/28/18 Sennosides [Senna -] 1 tab PO HS 02/28/18 Sertraline HCl [Zoloft -] 25 mg PO HS 02/28/18 Albuterol 0.083% Nebulizer Yessi [Ventolin 0.083% Nebulizer Soln -] 1 amp NEB Q3H PRN #10 amp 03/10/18 Amoxicillin/Potassium Clav [Augmentin 500-125 Tablet] 1 each PO DAILY #7 cap 11/26 Heparin - 5,000 unit SQ BID #1 vial 03/10/18
[2018-03-10] MEDS: ACETAMINOPHEN 325 MG TABLET (FP) PO PRN (14:48)
--- NOTE | 2018-03-10 14:59 | PN ---
Progress Note, Physician Chief Complaint: Events noted Not in distress History of Present Illness: Patient was seen and examined. Awake and alert. Chart was reviewed Feels better. Denies chest pain or palpitations Occasional SOB - Current Medication List Current Medications: Active Medications Acetaminophen (Tylenol -) 650 mg PO Q6H PRN PRN Reason: PAIN Last Admin: 03/10/18 14:48 Dose: 650 mg Acetaminophen (Tylenol -) 325 mg PO Q12H PRN PRN Reason: PAIN LEVEL 6-10 Last Admin: 03/09/18 21:45 Dose: 325 mg Albuterol Sulfate (Ventolin 0.083% Nebulizer Soln -) 1 amp NEB Q4H PRN PRN Reason: SHORT OF BREATH/WHEEZING Last Admin: 03/10/18 00:16 Dose: 1 amp Albuterol Sulfate (Ventolin 0.083% Nebulizer Soln -) 1 amp NEB Q3H PRN PRN Reason: SHORT OF BREATH/WHEEZING Amoxicillin/Clavulanate Potassium (Augmentin - 500mg Tablet) 1 tab PO DAILY@ 0800 [facility] Last Admin: 03/10/18 12:15 Dose: 1 tab Aspirin (Asa -) 81 mg PO DAILY [facility] Last Admin: 03/10/18 12:14 Dose: 81 mg Atorvastatin Calcium (Lipitor -) 80 mg PO HS [facility] Last Admin: 03/09/18 21:43 Dose: 80 mg Calcium Acetate (Phoslo -) 667 mg PO TIDCM [facility] Last Admin: 03/10/18 12:14 Dose: 667 mg Clopidogrel Bisulfate (Plavix -) 75 mg PO DAILY [facility] Last Admin: 03/10/18 12:14 Dose: 75 mg Fentanyl (Sublimaze Injection -) 25 mcg IVPUSH [id number] PRN PRN Reason: PAIN-PACU ORDER X 4 DOSES ONLY Heparin Sodium (Porcine) (Heparin -) 5,000 unit SQ TID [facility] Last Admin: 03/10/18 06:08 Dose: 5,000 unit Heparin Sodium (Porcine) (Heparin -) 500 unit IVPUSH ONCE ONE Stop: 03/10/18 16:25 Sodium Chloride (Normal Saline -) 250 mls @ 3,000 mls/hr IV PRN PRN PRN Reason: Hypotension during Dialysis Stop: 03/10/18 16:24 Insulin Aspart (Novolog Vial Sliding Scale -) 1 vial SQ [facility]; Protocol Last Admin: 03/10/18 12:15 Dose: 2 units Insulin Detemir (Levemir Vial) 5 units SQ [facility] Last Admin: 03/09/18 21:44 Dose: 5 units Levothyroxine Sodium (Synthroid -) 25 mcg PO DAILY@0700 [facility] Last Admin: 03/10/18 06:08 Dose: 25 mcg Lisinopril (Prinivil) 10 mg PO BID [facility] Last Admin: 03/10/18 12:14 Dose: 10 mg Metoprolol Succinate (Toprol Xl -) 100 mg PO DAILY [facility] Last Admin: 03/10/18 12:14 Dose: 100 mg Multivitamins/Minerals/Vitamin C (Tab-A-Vit -) 1 tab PO DAILY [facility] Last Admin: 03/10/18 12:14 Dose: 1 tab Pantoprazole Sodium (Protonix -) 40 mg PO DAILY [facility] Last Admin: 03/10/18 12:14 Dose: 40 mg Senna (Senna -) 1 tab PO [facility] Last Admin: 03/09/18 21:43 Dose: 1 tab Sertraline HCl (Zoloft -) 25 mg PO [facility] Last Admin: 03/09/18 21:43 Dose: 25 mg - Objective Vital Signs: Vital Signs Temperature 97.6 F 03/10/18 12:22 Pulse Rate 81 03/10/18 12:22 Respiratory Rate 17 03/10/18 12:22 Blood Pressure 166/69 03/10/18 12:22 O2 Sat by Pulse Oximetry (%) 98 03/10/18 12:22 HENT: Yes: Atraumatic Neck: Yes: Supple Cardiovascular: Yes: Regular Rate and Rhythm, S1, S2 Respiratory: Yes: CTA Bilaterally Gastrointestinal: Yes: Normal Bowel Sounds, Soft. No: Tenderness Edema: No Labs: CBC, BMP 03/10/18 08:00 03/10/18 08:00 Problem List - Problems (1) ASHD (arteriosclerotic heart disease) Code(s): I25.10 - ATHSCL HEART DISEASE OF [place] CORONARY ARTERY W/O ANG PCTRS (2) COPD (chronic obstructive pulmonary disease) Code(s): J44.9 - CHRONIC OBSTRUCTIVE PULMONARY DISEASE, UNSPECIFIED (3) Diabetes Code(s): E11.9 - TYPE 2 DIABETES MELLITUS WITHOUT COMPLICATIONS Qualifiers: Diabetes mellitus type: type 2 (4) Dyspnea Code(s): R06.00 - DYSPNEA, UNSPECIFIED (5) ESRD (end stage renal disease) Code(s): N18.6 - END STAGE RENAL DISEASE (6) HTN (hypertension) Code(s): I10 - ESSENTIAL (PRIMARY) HYPERTENSION Qualifiers: Hypertension type: essential hypertension Qualified Code(s): I10 - Essential (primary) hypertension (7) ICD (implantable cardioverter-defibrillator) in place Code(s): Z95.810 - PRESENCE OF AUTOMATIC (IMPLANTABLE) CARDIAC DEFIBRILLATOR (8) PVD (peripheral vascular disease) Code(s): I73.9 - PERIPHERAL VASCULAR DISEASE, UNSPECIFIED (9) Pleural effusion Code(s): J90 - PLEURAL EFFUSION, NOT ELSEWHERE CLASSIFIED (10) S/P CABG (coronary artery bypass graft) Code(s): Z95.1 - PRESENCE OF AORTOCORONARY BYPASS GRAFT (11) S/P peripheral artery angioplasty with stent placement Code(s): Z95.820 - PERIPHERAL VASCULAR ANGIOPLASTY STATUS W IMPLANTS AND GRAFTS Assessment/Plan 1. Acute on Chronic Systolic Heart Failure referable to ischemic dilated cardiomyopathy/severe LV systolic dysfunction with left effusion improving 2. CAD post remote [place] post CABG angina pectoris, stable 3. Post prophylactic ICD implant ([employer]'s device) 4. HTN 5. IDDM 6. Hypercholesterolemia 7. PAD with left toe gangrene s/p aortogram, LLE angiogram, SFA atherectomy, DCB SFA angioplasty, with sfa stent 8. ESRD on HD with hyperkalemia 9. Anemia 10. Hypothyroidism PLAN: 1. Continue Toprol XL 100 qd 2. Continue Lisinopril 10 bid and titrate dosage as tolerated and hemodynamics permitting 3. Continue ASA 81 qd and Plavix 75 qd 4. Continue Lipitor 80 qhs 5. Volume removal via UF/HD 6. Antibiotic, wound care, DVT and GI prophylaxis Further plans are to follow Jarocho Taylor MD
[2018-03-10] MEDS ORDERED: HEPARIN NA (PORCINE) 5,000 UNITS/ML 1ML VIAL IVPUSH ONE (16:24)
--- NOTE | 2018-03-13 13:27 | EKG ---
Test Reason : Blood Pressure : / mmHG Vent. Rate : 080 BPM Atrial Rate : 080 BPM P-R Int : 000 ms QRS Dur : 086 ms QT Int : 428 ms P-R-T Axes : 000 -02 169 degrees QTc Int : 493 ms Atrial-paced rhythm with prolonged AV conduction PROLONGED QT ABNORMAL ECG NO PREVIOUS ECGS AVAILABLE Confirmed by MD VICKI, RENEE ([id number]) on 03/13/2018 1:27:33 PM Referred By: Confirmed By:RENEE COHEN MD
== END 2018-03-10 17:15 | DRG 270 ==
LOC: JER 18:04 → JERBED 23:49 → OBSVTOIN 03-01 00:20 → J7W 03-01 18:55
PROVIDERS: ADMIT Internal Medicine; ATTEND Internal Medicine
PROC: 5A1D70Z Performance of Urinary Filtration, Intermittent, Less than 6 Hours Per Day (ICD-10-PCS; 2018-03-01)
PROC: 047L3D1 Dilation of Left Femoral Artery with Intraluminal Device, using Drug-Coated Balloon, Percutaneous Approach (ICD-10-PCS; 2018-03-07)
PROC: B40DYZZ Plain Radiography of Aorta and Bilateral Lower Extremity Arteries using Other Contrast (ICD-10-PCS; 2018-03-07)
PROC: B40GYZZ Plain Radiography of Left Lower Extremity Arteries using Other Contrast (ICD-10-PCS; 2018-03-07)
PROC: 04CL3ZZ Extirpation of Matter from Left Femoral Artery, Percutaneous Approach (ICD-10-PCS; principal; 2018-03-07 10:00)
DX: E11.52 Type 2 diabetes mellitus with diabetic peripheral angiopathy with gangrene (principal); N18.6 End stage renal disease; I50.23 Acute on chronic systolic (congestive) heart failure; I13.2 Hypertensive heart and chronic kidney disease with heart failure and with stage 5 chronic kidney disease, or end stage renal disease; I96 Gangrene, not elsewhere classified; I42.9 Cardiomyopathy, unspecified; E87.5 Hyperkalemia; I25.10 Atherosclerotic heart disease of native coronary artery without angina pectoris; Z87.891 Personal history of nicotine dependence; Z79.4 Long term (current) use of insulin; Z95.1 Presence of aortocoronary bypass graft; E03.9 Hypothyroidism, unspecified; D64.9 Anemia, unspecified; J44.9 Chronic obstructive pulmonary disease, unspecified; E11.22 Type 2 diabetes mellitus with diabetic chronic kidney disease; Z99.2 Dependence on renal dialysis; I48.91 Unspecified atrial fibrillation; F32.9 Major depressive disorder, single episode, unspecified; K59.00 Constipation, unspecified; Z95.810 Presence of automatic (implantable) cardiac defibrillator
CPT/HCPCS: 36415; 71045-TC-FY; 71046-TC-FY; 73630-TC-LT; 76000-TC-FY; 80048; 80053; 80061; 81003; 81015; 82565; 82962; 83036; 83721; 83735; 84100; 84520; 85025; 85027; 85610; 85651; 86140; 86704; 86706; 86708; 87040; 87340; 93005; 93010; 93306-TC; 93926-TC; 93971-TC; 94640; 94760; 97116-GP; 97161-GP; 99285-25; G0378; G0480; J0885; J1644; J7620

== ENCOUNTER 2018-03-27 11:15 | Inpatient (IN) | payer OTHER ==
[2018-03-27 12:15] LABS: BASO % 0.9 % (0-2.0); EOS % 1.3 % (0-4.5); HEMATOCRIT 30.3 % (35.4-49); HEMOGLOBIN 9.9 GM/dL (11.7-16.9); LYMPH % 12.5 % (8-40); MCH 29.3 pg (25.7-33.7); MCHC 32.7 g/dl (32.0-35.9); MEAN CELL VOLUME 89.8 fl (80-96); MONO % 9.2 % (3.8-10.2); NEUT % 76.1 % (42.8-82.8); PLATELET COUNT 233 K/MM3 (134-434); RBC 3.38 M/mm3 (4.00-5.60); RDW 21.4 % (11.9-15.9); WHITE BLOOD COUNT 8.2 K/mm3 (4.0-10.0)
[2018-03-27 12:33] LABS: INR 1.11 (0.82-1.09); PROTHROMBIN TIME (PATIENT) 12.5 SEC (9.7-13.0)
--- NOTE | 2018-03-27 12:34 | PDOC ---
History of Present Illness - General Chief Complaint: Shortness of Breath Stated Complaint: SOB CHEST PAIN Time Seen by Provider: 03/27/18 11:28 History Source: Patient, Family - History of Present Illness Timing/Duration: reports: other Associated Symptoms: reports: shortness of breath. denies: chest pain/soreness , cough, fever/chills Past History - Past Medical History Allergies/Adverse Reactions: Allergies Allergy/AdvReac Type Severity Reaction Status Date / Time No Known Allergies Allergy Verified 02/28/18 18:24 Home Medications: Ambulatory Orders Acetaminophen 650 mg PO Q4H PRN 02/28/18 Albuterol 2.5/Ipratropium 0.5 [Duoneb -] 1 amp NEB TID 02/28/18 Aspirin [ASA -] 81 mg PO DAILY 02/28/18 Atorvastatin Ca [Lipitor] 80 mg PO HS 02/28/18 Calcium Acetate [Phoslo -] 667 mg PO TID 02/28/18 Clopidogrel Bisulfate [Plavix -] 75 mg PO DAILY 02/28/18 Insulin (LOG) Aspart [NovoLOG -] 0 units SQ TID 02/28/18 Insulin Glargine,Hum.rec.anlog [Lantus] 16 unit SQ HS 02/28/18 Levothyroxine [Synthroid -] 25 mcg PO DAILY 02/28/18 Lisinopril 10 mg PO DAILY 02/28/18 Metoprolol Succinate [Toprol Xl] 100 mg PO DAILY 02/28/18 Multivitamin [Multiple Vitamins] 1 each PO DAILY 02/28/18 Oxycodone HCl/Acetaminophen [Percocet 5-325 mg Tablet] 1 - 2 tab PO BID PRN Pantoprazole Sodium 40 mg PO DAILY 02/28/18 Sennosides [Senna -] 1 tab PO HS 02/28/18 Sertraline HCl [Zoloft -] 25 mg PO HS 02/28/18 Albuterol 0.083% Nebulizer Yessi [Ventolin 0.083% Nebulizer Soln -] 1 amp NEB Q3H PRN #10 amp 03/10/18 Amoxicillin/Potassium Clav [Augmentin 500-125 Tablet] 1 each PO DAILY #7 cap 11/26 Heparin - 5,000 unit SQ BID #1 vial 03/10/18 Cardiac Disorders: Yes (a-fib) COPD: Yes CHF: Yes Diabetes: Yes (Type 2) Psychiatric Problems: Yes (depression) Thyroid Disease: Yes (Hypothyroidism) Other medical history: PERIPHERAL ARTERY ANGIOPLASTY W/STENT PLACEMENT LEFT LEG - Surgical History Cardiac Surgery: Yes (CABG x 3, PPM, Defibrillator) - Suicide/Smoking/Psychosocial Hx Smoking History: Former smoker Have you smoked in the past 12 months: No If you are a former smoker, when did you quit?: 2004 Information on smoking cessation initiated: No Hx Alcohol Use: No Drug/Substance Use Hx: No Substance Use Type: None Hx Substance Use Treatment: No Review of Systems - Review of Systems Constitutional: No: Chills, Fever Respiratory: Yes: Shortness of Breath. No: Cough, Wheezing Cardiac (ROS): No: Chest Pain ABD/GI: No: Nausea, Vomiting, Abdominal cramping : No: Dysuria *Physical Exam - Vital Signs Last Vital Signs Temp Pulse Resp BP Pulse Ox 98.0 F 80 24 154/64 99 03/27/18 11:36 03/27/18 11:43 03/27/18 11:36 03/27/18 11:36 03/27/18 11:43 - Physical Exam General Appearance: Yes: Appropriately Dressed. No: Apparent Distress HEENT: positive: Normal Voice Neck: positive: Supple Respiratory/Chest: positive: Decreased Breath Sounds (on the L). negative: Respiratory Distress Cardiovascular: positive: Regular Rate, S1, S2 Gastrointestinal/Abdominal: positive: Soft. negative: Tender Extremity: positive: Other (dry gangrene to L great toe, no erythema or ttp, pedal pulses intact b/l, no sig edema) Integumentary: positive: Dry, Warm Neurologic: positive: Fully Oriented, Alert, Normal Mood/Affect ED Treatment Course - LABORATORY CBC & Chemistry Diagram: 03/27/18 12:06 03/27/18 13:10 - ADDITIONAL ORDERS Additional order review: 03/27/18 12:06 RBC 3.38 L MCV 89.8 MCHC 32.7 RDW 21.4 H MPV 9.0 Neutrophils % 76.1 Lymphocytes % 12.5 D Monocytes % 9.2 Eosinophils % 1.3 Basophils % 0.9 - RADIOLOGY Radiology Studies Ordered: Category Date Time Status CHEST X-RAY PORTABLE* [RAD] Stat Radiology 03/27/18 12:05 Ordered Medical Decision Making - Medical Decision Making 03/27/18 12:32 72-year-old male, former smoker, HTN, COPD, CABG x 4, PPM, CHF, unclear if on diuretic, PVD, dry gangrene to L great toe, s/p recent angioplasty w/ stent to LLE, IDDM, on HD via RUE access on T/W/S, s/p HD this am, makes very little UO, s/p recent admission for acute on chronic CHF that improved w/ HD per niece. Found to have moderate b/l pleural effusions, now oxygen dependent on 2L at [place], sent in today for SOB despite using oxygen. Denies CP, diaphoresis, palpitations , leg pain or swelling. Denies no cough, fever or chills See exam SOB despite being on 02 Known b/l pleural effusion, r/o CHF vs ACS vs COPD, less likely PE, dissection or PNA Stable in ED and sating 99% on 3 L (reports no SOB currently) -ekg -cxr -labs -anticipate admission 03/27/18 14:15 EKG unchanged compared to 02/23. Chest x-ray read as progressive congestive and infiltrative changes w/ pleural fluid. CBC unremarkable. BNP/trop pending. No cough or fever to suggest PNA, will hold off on abx and d/w admitting team 03/27/18 14:52 BNP over 170 K, no old to compare. Trop neg. As per discussion with ED attending, will give IV Lasix at this time and admit to Dr Rainey as d/w . Renal c/s placed *DC/Admit/Observation/Transfer Diagnosis at time of Disposition: CHF (congestive heart failure), NYHA class IV Qualifiers: Congestive heart failure type: unspecified Qualified Code(s): I50.9 - Heart failure, unspecified - Discharge Dispostion Condition at time of disposition: Fair Decision to Admit order: Yes - Referrals - Patient Instructions - Post Discharge Activity
[2018-03-27 12:36] LABS: ACTIVATED PTT 24.8 SECONDS (25.2-36.5)
[2018-03-27 13:24] LABS: ANISOCYTOSIS 1+; MACROCYTOSIS 1+; PLATELET ESTIMATE NORMAL
[2018-03-27 14:15] LABS: ALBUMIN 3.5 g/dl (3.4-5.0); ANION GAP 8 (8-16); BILIRUBIN,TOTAL 0.6 mg/dL (0.2-1.0); BLOOD UREA NITROGEN 16 mg/dL (7-18); CALCIUM 8.8 mg/dL (8.5-10.1); CHLORIDE 96 mmol/L (98-107); CO2 33 mmol/L (21-32); CREATININE 3.1 mg/dL (0.7-1.3); GLUCOSE,RANDOM 95 mg/dL (74-106); POTASSIUM 4.2 mmol/L (3.5-5.1); SGOT/AST 27 U/L (15-37); SGPT/ALT 28 U/L (12-78); SODIUM 137 mmol/L (136-145); TOT PROT 7.4 g/dl (6.4-8.2)
[2018-03-27 14:29] LABS: ALK PHOS 136 U/L (45-117); N-TERMINAL BNP 173760.57 pg/ml (5-125)
[2018-03-27] MEDS ORDERED: FUROSEMIDE 40 MG/4 ML INJECTABLE VIAL IVPUSH ONE (14:41)
[2018-03-27] MEDS ORDERED: FUROSEMIDE 40 MG/4 ML INJECTABLE VIAL ONE (14:49)
--- NOTE | 2018-03-27 16:00 | EKG ---
Test Reason : Blood Pressure : / mmHG Vent. Rate : 080 BPM Atrial Rate : 079 BPM P-R Int : 000 ms QRS Dur : 092 ms QT Int : 428 ms P-R-T Axes : 000 -10 164 degrees QTc Int : 493 ms Atrial-paced rhythm with prolonged AV conduction PROLONGED QT ABNORMAL ECG WHEN COMPARED WITH ECG OF 28-FEB-2018 18:52, NO SIGNIFICANT CHANGE WAS FOUND Confirmed by MD NARENDRA, SHALOM ([id number]) on 03/27/2018 3:59:58 PM Referred By: Confirmed By:SHALOM MACKEY MD
[2018-03-27] MEDS ORDERED: ACETAMINOPHEN 1000 MG/100 ML VIAL (NON FORMULARY) IVPB ONE (18:02)
[2018-03-27] MEDS ORDERED: ACETAMINOPHEN INJECTION 100 ML IVPB ONE (18:04)
[2018-03-27] MEDS ORDERED: ALBUTEROL SO4 0.083% IH SOL 2.5 MG/3 ML VIAL.NEB. NEB PRN (20:22)
[2018-03-27] MEDS ORDERED: ATORVASTATIN CA 80 MG TABLET (FP) ONE (21:30)
[2018-03-27] MEDS ORDERED: SERTRALINE HCL 50 MG TABLET (FP) ONE (21:30)
[2018-03-27] MEDS: CALCIUM ACETATE 667 MG CAPSULE (FP) PO SCH (21:35)
[2018-03-27] MEDS: SENNOSIDES 8.6MG TABLET (FP) PO SCH (21:36)
[2018-03-27] MEDS: SERTRALINE HCL 50 MG TABLET (FP) PO SCH (21:36)
[2018-03-27] MEDS ORDERED: INSULIN (LEVEMIR) 100 UNITS/ML UNITS SQ SCH (22:00)
[2018-03-27] MEDS ORDERED: ATORVASTATIN CA 80 MG TABLET (FP) PO SCH (22:00)
[2018-03-27] MEDS ORDERED: INSULIN REGULAR HUMAN 100 UNITS/ML *VIAL ONE (22:03)
[2018-03-27] MEDS ORDERED: HEPARIN NA (PORCINE) 5,000 UNITS/ML 1ML VIAL ONE (22:05)
[2018-03-27] MEDS: INSULIN SLIDING SCALE (NOVOLOG) 1 VIAL SQ SCH (22:13)
[2018-03-27] MEDS: HEPARIN NA (PORCINE) 5,000 UNITS/ML 1ML VIAL SQ SCH (22:13)
[2018-03-28] MEDS: INSULIN SLIDING SCALE (NOVOLOG) 1 VIAL SQ SCH ×4 (06:17→21:06)
[2018-03-28] MEDS: LEVOTHYROXINE NA 25 MCG TABLET (FP) PO SCH (06:18)
[2018-03-28 07:32] LABS: HEMATOCRIT 31.2 % (35.4-49); HEMOGLOBIN 10.2 GM/dL (11.7-16.9); MCH 29.8 pg (25.7-33.7); MCHC 32.7 g/dl (32.0-35.9); MEAN CELL VOLUME 91.1 fl (80-96); PLATELET COUNT 210 K/MM3 (134-434); RBC 3.43 M/mm3 (4.00-5.60); RDW 21.4 % (11.9-15.9); WHITE BLOOD COUNT 7.6 K/mm3 (4.0-10.0)
[2018-03-28 07:55] LABS: ALBUMIN 3.3 g/dl (3.4-5.0); ANION GAP 9 (8-16); BLOOD UREA NITROGEN 27 mg/dL (7-18); CALCIUM 8.5 mg/dL (8.5-10.1); CHLORIDE 97 mmol/L (98-107); CO2 32 mmol/L (21-32); CREATININE 4.2 mg/dL (0.7-1.3); POTASSIUM 3.8 mmol/L (3.5-5.1); SGOT/AST 29 U/L (15-37); SGPT/ALT 28 U/L (12-78); SODIUM 138 mmol/L (136-145)
[2018-03-28 07:59] LABS: ALK PHOS 143 U/L (45-117); BILIRUBIN,TOTAL 0.5 mg/dL (0.2-1.0); TOT PROT 7.2 g/dl (6.4-8.2)
[2018-03-28 08:19] LABS: GLUCOSE,RANDOM 50 mg/dL (74-106)
[2018-03-28] MEDS: CALCIUM ACETATE 667 MG CAPSULE (FP) PO SCH ×3 (09:00→17:20)
[2018-03-28] MEDS: CLOPIDOGREL BISULFATE 75 MG TABLET (FP) PO SCH (09:23)
[2018-03-28] MEDS: MULTIVITAMINS (DAILY MVI) TABLET (FP) PO SCH (09:23)
[2018-03-28] MEDS: HEPARIN NA (PORCINE) 5,000 UNITS/ML 1ML VIAL SQ SCH ×2 (09:24→21:05)
[2018-03-28] MEDS: ASPIRIN 81 MG CHEWABLE TABLETS PO SCH (09:24)
[2018-03-28] MEDS: PANTOPRAZOLE 40 MG TABLET (FP) PO SCH (09:24)
[2018-03-28] MEDS: ACETAMINOPHEN 325 MG TABLET (FP) PO PRN ×2 (09:31→21:06)
[2018-03-28] MEDS ORDERED: LISINOPRIL 10 MG TABLET (FP) PO SCH (10:00)
--- NOTE | 2018-03-28 10:12 | CON.CARD ---
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 - History Source History Provided By: Medical Record Limitations to Obtaining History: Poor Historian - Past Medical History Cardio/Vascular: Yes: CAD Renal/: Yes: Renal Inusuff, Hemodialysis Endocrine: Yes: Diabetes Mellitus - Past Surgical History Past Surgical History: Yes: AV Fistula/Graft - Alcohol/Substance Use Hx Alcohol Use: No - Smoking History Smoking history: Former smoker Have you smoked in the past 12 months: No Aproximately how many cigarettes per day: 5 If you are a former smoker, when did you quit?: 2004 Home Medications - Allergies Allergies/Adverse Reactions: Allergies Allergy/AdvReac Type Severity Reaction Status Date / Time No Known Allergies Allergy Verified 02/28/18 18:24 - Home Medications Home Medications: Ambulatory Orders Acetaminophen 650 mg PO Q4H PRN 02/28/18 Aspirin [ASA -] 81 mg PO DAILY 02/28/18 Atorvastatin Ca [Lipitor] 80 mg PO HS 02/28/18 Calcium Acetate [Phoslo -] 667 mg PO TIDCM 02/28/18 Clopidogrel Bisulfate [Plavix -] 75 mg PO DAILY 02/28/18 Insulin (LOG) Aspart [NovoLOG -] 0 units SQ TID PRN 02/28/18 Insulin Glargine,Hum.rec.anlog [Lantus] 16 unit SQ HS 02/28/18 Levothyroxine [Synthroid -] 25 mcg PO DAILY 02/28/18 Lisinopril 10 mg PO DAILY 02/28/18 Metoprolol Succinate [Toprol Xl] 150 mg PO DAILY 02/28/18 Pantoprazole Sodium 40 mg PO DAILY 02/28/18 Sennosides [Senna -] 1 tab PO HS 02/28/18 Sertraline HCl [Zoloft -] 50 mg PO HS 02/28/18 Heparin - 5,000 unit SQ BID #1 vial 03/10/18 Albuterol 0.083% Nebulizer Yessi [Ventolin 0.083% Nebulizer Soln -] 1 amp IN Q8H PRN 03/28/18 Review of Systems - Review of Systems Respiratory: reports: SOB, SOB on Exertion Vital Signs: Vital Signs Temperature 97.8 F 03/28/18 06:00 Pulse Rate 81 03/28/18 06:00 Respiratory Rate 22 03/28/18 06:00 Blood Pressure 157/71 03/28/18 06:00 O2 Sat by Pulse Oximetry (%) 97 03/28/18 01:12 Constitutional: Yes: No Distress, Calm, Thin Neck: Yes: Supple Respiratory: Yes: Regular, Diminished, On Nasal O2 Gastrointestinal: Yes: Normal Bowel Sounds, Soft Cardiovascular: Yes: Regular Rate and Rhythm JVD: No Carotid Bruit: No Heart Sounds: Yes: S1, S2 Murmur: Yes: Systolic Murmur, Grade 1 Edema: No (Warm and well-perfused) - Other Data Labs, Other Data: CBC, BMP 03/28/18 06:00 03/28/18 06:00 INR, PTT INR 1.11 (0.82-1.09) 03/27/18 12:06 Troponin, BNP 03/27/18 03/27/18 03/27/18 12:06 13:10 13:10 Troponin I Cancelled 0.05 B-Natriuretic Peptide Cancelled 979823.57 H 03/27/18 03/27/18 03/28/18 13:10 20:59 06:00 Troponin I Cancelled 0.05 Cancelled B-Natriuretic Peptide 03/28/18 06:00 Troponin I 0.04 B-Natriuretic Peptide Troponin, BNP 03/27/18 03/27/18 03/27/18 12:06 13:10 13:10 Troponin I Cancelled 0.05 B-Natriuretic Peptide Cancelled 232978.57 H 03/27/18 03/27/18 03/28/18 13:10 20:59 06:00 Troponin I Cancelled 0.05 Cancelled B-Natriuretic Peptide 06/20/18 06:00 Troponin I 0.04 B-Natriuretic Peptide A-paced @ 80 QRS 92 msec Ejection Fraction %: LVEF < 40 % Imaging - Results Chest X-ray: Report Reviewed (Progressive congestive and infiltrative changes w / pleural fluid) Problem List - Problems (1) CHF (congestive heart failure), NYHA class IV Code(s): I50.9 - HEART FAILURE, UNSPECIFIED Qualifiers: Congestive heart failure type: combined Congestive heart failure chronicity : acute on chronic Qualified Code(s): I50.43 - Acute on chronic combined systolic (congestive) and diastolic (congestive) heart failure (2) ASHD (arteriosclerotic heart disease) Code(s): I25.10 - ATHSCL HEART DISEASE OF [place] CORONARY ARTERY W/O ANG PCTRS (3) Diabetes Code(s): E11.9 - TYPE 2 DIABETES MELLITUS WITHOUT COMPLICATIONS Qualifiers: Diabetes mellitus type: type 2 (4) ESRD (end stage renal disease) Code(s): N18.6 - END STAGE RENAL DISEASE (5) Gangrene Code(s): I96 - GANGRENE, NOT ELSEWHERE CLASSIFIED (6) HTN (hypertension) Code(s): I10 - ESSENTIAL (PRIMARY) HYPERTENSION Qualifiers: Hypertension type: essential hypertension Qualified Code(s): I10 - Essential (primary) hypertension (7) ICD (implantable cardioverter-defibrillator) in place Code(s): Z95.810 - PRESENCE OF AUTOMATIC (IMPLANTABLE) CARDIAC DEFIBRILLATOR (8) PVD (peripheral vascular disease) Code(s): I73.9 - PERIPHERAL VASCULAR DISEASE, UNSPECIFIED (9) Pleural effusion Code(s): J90 - PLEURAL EFFUSION, NOT ELSEWHERE CLASSIFIED (10) S/P CABG (coronary artery bypass graft) Code(s): Z95.1 - PRESENCE OF AORTOCORONARY BYPASS GRAFT (11) S/P peripheral artery angioplasty with stent placement Code(s): Z95.820 - PERIPHERAL VASCULAR ANGIOPLASTY STATUS W IMPLANTS AND GRAFTS (12) Hypothyroidism Code(s): E03.9 - HYPOTHYROIDISM, UNSPECIFIED (13) Anemia Code(s): D64.9 - ANEMIA, UNSPECIFIED Qualifiers: Anemia type: due to chronic kidney disease (14) Dyspnea Code(s): R06.00 - DYSPNEA, UNSPECIFIED Assessment/Plan 03/01/2018 Echo: Normal LV size with severely decreased LV fxn, mild TR, tr MR, pleural efusion 1. Acute on Chronic Systolic Heart Failure referable to ischemic dilated cardiomyopathy/severe LV systolic dysfunction with left effusion improving 2. CAD post remote ME post CABG angina pectoris, stable 3. Post prophylactic ICD implant (Medtr[employer]'s device) 4. HTN 5. IDDM 6. Hypercholesterolemia 7. PAD with left toe gangrene s/p aortogram, LLE angiogram, SFA atherectomy, DCB SFA angioplasty, with sfa stent 8. ESRD on HD 9. Anemia of CKD 10. Hypothyroidism PLAN: 1. Volume removal via UF/HD, check TSH 2. Continue Toprol XL 100 qd 3. Stop Lisinopril 10 qd for at least 36 hrs washout period then start Entresto / bid and titrate dosage as tolerated and hemodynamics permitting 4. Continue ASA 81 qd and Plavix 75 qd 4. Decrease Lipitor 20 qhs (03/01/2018 LDL 31) 5. DVT and GI prophylaxis 6. Thank you for consultative opportunity
--- NOTE | 2018-03-28 12:03 | HP ---
Admitting History and Physical - Primary Care Physician PCP: Moseh Nur - Admission Chief Complaint: SOB History of Present Illness: ER HISTORY 03/27/18 12:32 72-year-old male, former smoker, HTN, COPD, CABG x 4, PPM, CHF, unclear if on diuretic, PVD, dry gangrene to L great toe, s/p recent angioplasty w/ stent to LLE, IDDM, on HD via RUE access on T/W/S, s/p HD this am, makes very little UO, s/p recent admission for acute on chronic CHF that improved w/ HD per niece. Found to have moderate b/l pleural effusions, now oxygen dependent on 2L at [place], sent in today for SOB despite using oxygen. Denies CP, diaphoresis, palpitations , leg pain or swelling. Denies no cough, fever or chills Pt examined by me in Telemetry Pt was sent from [facility] for STR s/p left angioplasty, left big toe gangrene. He is sitting up in bed-- states he's SOB No chest pain Difficult for him to lie down due to shortness of breath He had dialysis yesterday History Source: Patient Limitations to Obtaining History: No Limitations - Past Medical History Cardiovascular: Yes: CAD, CHF Renal/: Yes: Renal Inusuff, Hemodialysis Endocrine: Yes: Diabetes Mellitus - Past Surgical History Past Surgical History: Yes: AV Fistula/Graft - Smoking History Smoking history: Former smoker Have you smoked in the past 12 months: No Aproximately how many cigarettes per day: 5 If you are a former smoker, when did you quit?: 2004 - Alcohol/Substance Use Hx Alcohol Use: No Home Medications - Allergies Allergies/Adverse Reactions: Allergies Allergy/AdvReac Type Severity Reaction Status Date / Time No Known Allergies Allergy Verified 02/28/18 18:24 - Home Medications Home Medications: Ambulatory Orders Acetaminophen 650 mg PO Q4H PRN 02/28/18 Aspirin [ASA -] 81 mg PO DAILY 02/28/18 Atorvastatin Ca [Lipitor] 80 mg PO HS 02/28/18 Calcium Acetate [Phoslo -] 667 mg PO TIDCM 02/28/18 Clopidogrel Bisulfate [Plavix -] 75 mg PO DAILY 02/28/18 Insulin (LOG) Aspart [NovoLOG -] 0 units SQ TID PRN 02/28/18 Insulin Glargine,Hum.rec.anlog [Lantus] 16 unit SQ HS 02/28/18 Levothyroxine [Synthroid -] 25 mcg PO DAILY 02/28/18 Lisinopril 10 mg PO DAILY 02/28/18 Metoprolol Succinate [Toprol Xl] 150 mg PO DAILY 02/28/18 Pantoprazole Sodium 40 mg PO DAILY 02/28/18 Sennosides [Senna -] 1 tab PO HS 02/28/18 Sertraline HCl [Zoloft -] 50 mg PO HS 02/28/18 Heparin - 5,000 unit SQ BID #1 vial 03/10/18 Albuterol 0.083% Nebulizer Yessi [Ventolin 0.083% Nebulizer Soln -] 1 amp IN Q8H PRN 03/28/18 Review of Systems - Review of Systems Constitutional: denies: Chills, Fever, Lethargy, Loss of Appetite, Weakness Cardiovascular: reports: Edema, Shortness of Breath. denies: Chest Pain, Palpitations Respiratory: reports: Exercise Intolerance, Orthopnea, SOB, SOB on Exertion. denies: Cough, PND, Wheezing Physical Examination Vital Signs: Vital Signs Temperature 97.5 F L 03/28/18 10:00 Pulse Rate 81 03/28/18 10:00 Respiratory Rate 18 03/28/18 10:00 Blood Pressure 149/75 03/28/18 10:00 O2 Sat by Pulse Oximetry (%) 95 03/28/18 09:00 Constitutional: Yes: No Distress, Calm Cardiovascular: Yes: Regular Rate and Rhythm Respiratory: Yes: Diminished, Rales Gastrointestinal: Yes: Normal Bowel Sounds, Soft. No: Tenderness Edema: Yes Edema: LLE: 2+ Neurological: Yes: Alert, Oriented Psychiatric: Yes: Alert, Oriented Labs: CBC, BMP 03/28/18 06:00 03/28/18 06:00 Imaging - Results Chest X-ray: Image Reviewed (congested) EKG: Image Reviewed (paced) Problem List - Problems (1) CHF (congestive heart failure), NYHA class IV Code(s): I50.9 - HEART FAILURE, UNSPECIFIED Qualifiers: Congestive heart failure type: combined Congestive heart failure chronicity : acute on chronic Qualified Code(s): I50.43 - Acute on chronic combined systolic (congestive) and diastolic (congestive) heart failure (2) Hypothyroidism Code(s): E03.9 - HYPOTHYROIDISM, UNSPECIFIED (3) ASHD (arteriosclerotic heart disease) Code(s): I25.10 - ATHSCL HEART DISEASE OF [place] CORONARY ARTERY W/O ANG PCTRS (4) Diabetes Code(s): E11.9 - TYPE 2 DIABETES MELLITUS WITHOUT COMPLICATIONS Qualifiers: Diabetes mellitus type: type 2 (5) ESRD (end stage renal disease) Code(s): N18.6 - END STAGE RENAL DISEASE Assessment/Plan PLAN Cardiac enzymes negative Pt will need dialysis today as well-- very congested advised fluid restriction continue with meds spoke with renal for dialysis today received Lasix in ER
[2018-03-28] MEDS ORDERED: SODIUM CHLORIDE 250 ML IV PRN (12:28)
--- NOTE | 2018-03-28 12:28 | CONSULT ---
Consult Consult Specialty:: Nephrology Reason for Consultation:: ESRD - History of Present Illness Chief Complaint: shortness of breath History of Present Illness: Pt is a 72 year old male with pmhx of ESRD on HD who presents to the ER yesterday with shortness of breath. He was last dialyzed yesterday and about 2.5 liters of fluid were removed. He is still short of breath. He does complain of lower ext edema. He denies chest pain or palpitations. He has history of CHF , COPD, CAD and PVD. - History Source History Provided By: Patient, Medical Record - Past Medical History Cardio/Vascular: Yes: CAD, CHF, HTN, Other (PVD) Renal/: Yes: Renal Inusuff, Hemodialysis Endocrine: Yes: Diabetes Mellitus - Past Surgical History Past Surgical History: Yes: AV Fistula/Graft - Alcohol/Substance Use Hx Alcohol Use: No - Smoking History Smoking history: Former smoker Have you smoked in the past 12 months: No Aproximately how many cigarettes per day: 5 If you are a former smoker, when did you quit?: 2004 Home Medications - Allergies Allergies/Adverse Reactions: Allergies Allergy/AdvReac Type Severity Reaction Status Date / Time No Known Allergies Allergy Verified 02/28/18 18:24 - Home Medications Home Medications: Ambulatory Orders Acetaminophen 650 mg PO Q4H PRN 02/28/18 Aspirin [ASA -] 81 mg PO DAILY 02/28/18 Atorvastatin Ca [Lipitor] 80 mg PO HS 02/28/18 Calcium Acetate [Phoslo -] 667 mg PO TIDCM 02/28/18 Clopidogrel Bisulfate [Plavix -] 75 mg PO DAILY 02/28/18 Insulin (LOG) Aspart [NovoLOG -] 0 units SQ TID PRN 02/28/18 Insulin Glargine,Hum.rec.anlog [Lantus] 16 unit SQ HS 02/28/18 Levothyroxine [Synthroid -] 25 mcg PO DAILY 02/28/18 Lisinopril 10 mg PO DAILY 02/28/18 Metoprolol Succinate [Toprol Xl] 150 mg PO DAILY 02/28/18 Pantoprazole Sodium 40 mg PO DAILY 02/28/18 Sennosides [Senna -] 1 tab PO HS 02/28/18 Sertraline HCl [Zoloft -] 50 mg PO HS 02/28/18 Heparin - 5,000 unit SQ BID #1 vial 03/10/18 Albuterol 0.083% Nebulizer Yessi [Ventolin 0.083% Nebulizer Soln -] 1 amp IN Q8H PRN 03/28/18 Family Disease History - Family Disease History Family History: Denies Review of Systems - Review of Systems Constitutional: reports: Malaise Eyes: reports: No Symptoms HENT: reports: No Symptoms Neck: reports: No Symptoms Cardiovascular: reports: Edema, Shortness of Breath. denies: Palpitations Respiratory: reports: SOB, SOB on Exertion Genitourinary: reports: No Symptoms Musculoskeletal: reports: No Symptoms Neurological: reports: No Symptoms Endocrine: reports: No Symptoms Hematology/Lymphatic: reports: No Symptoms Psychiatric: reports: No Symptoms Physical Exam Vital Signs: Vital Signs Temperature 97.5 F L 03/28/18 10:00 Pulse Rate 81 03/28/18 10:00 Respiratory Rate 18 03/28/18 10:00 Blood Pressure 149/75 03/28/18 10:00 O2 Sat by Pulse Oximetry (%) 95 03/28/18 09:00 Constitutional: Yes: Calm Eyes: Yes: Conjunctiva Clear HENT: Yes: Atraumatic Cardiovascular: Yes: S1, S2 Respiratory: Yes: On Nasal O2, Rhonchi Gastrointestinal: Yes: Soft Renal/: Yes: WNL Musculoskeletal: Yes: WNL Edema: Yes Edema: LLE: 2+, RLE: 2+ Neurological: Yes: Oriented Psychiatric: Yes: Oriented Labs: CBC, BMP 03/28/18 06:00 03/28/18 06:00 Laboratory Tests 03/27/18 03/28/18 03/28/18 12:06 06:00 06:00 Hgb 9.9 L 10.2 L Sodium 138 Potassium 3.8 Chloride 97 L Carbon Dioxide 32 Anion Gap 9 BUN 27 H D Creatinine 4.2 H D Imaging - Results Chest X-ray: Report Reviewed Problem List - Problems (1) Anemia Code(s): D64.9 - ANEMIA, UNSPECIFIED Qualifiers: Anemia type: due to chronic kidney disease (2) CHF (congestive heart failure), NYHA class IV Code(s): I50.9 - HEART FAILURE, UNSPECIFIED Qualifiers: Congestive heart failure type: combined Congestive heart failure chronicity : acute on chronic Qualified Code(s): I50.43 - Acute on chronic combined systolic (congestive) and diastolic (congestive) heart failure (3) ESRD (end stage renal disease) Code(s): N18.6 - END STAGE RENAL DISEASE Assessment/Plan Current Medications Generic Name Dose Route Start Last Admin Trade Name Freq PRN Reason Stop Dose Admin Acetaminophen 650 mg 03/27/18 20:22 03/28/18 09:31 Tylenol - PO 650 mg Q4H PRN Administration PAIN LEVEL 1 - 3 Albuterol Sulfate 1 amp 03/27/18 20:22 03/28/18 02:16 Ventolin 0.083% Nebulizer Soln - NEB 1 amp Q3H PRN Administration SHORT OF BREATH/WHEEZING Aspirin 81 mg 03/28/18 10:00 03/28/18 09:24 Asa - PO 81 mg DAILY [facility] Administration Atorvastatin Calcium 20 mg 03/28/18 10:46 Lipitor - PO HS [facility] Calcium Acetate 667 mg 03/27/18 20:45 03/28/18 09:00 Phoslo - PO 667 mg TIDCM [facility] Administration Clopidogrel Bisulfate 75 mg 03/28/18 10:00 03/28/18 09:23 Plavix - PO 75 mg DAILY [facility] Administration Docusate Sodium 100 mg 03/28/18 14:00 Colace - PO TID [facility] Heparin Sodium (Porcine) 5,000 unit 03/27/18 22:00 03/28/18 09:24 Heparin - SQ 5,000 unit BID [facility] Administration Insulin Aspart 1 vial 03/27/18 22:00 03/28/18 06:17 Novolog Vial Sliding Scale - SQ Not Given [facility] Protocol Insulin Detemir 10 units 03/28/18 11:42 Levemir Vial SQ [facility] Levothyroxine Sodium 25 mcg 03/28/18 07:00 03/28/18 06:18 Synthroid - PO 25 mcg DAILY@0700 [facility] Administration Metoprolol Succinate 100 mg 03/28/18 10:00 03/28/18 09:24 Toprol Xl - PO 100 mg DAILY [facility] Administration Multivitamins/Minerals/Vitamin C 1 tab 03/28/18 10:00 03/28/18 09:23 Tab-A-Vit - PO 1 tab DAILY [facility] Administration Pantoprazole Sodium 40 mg 03/28/18 10:00 03/28/18 09:24 Protonix - PO 40 mg DAILY [facility] Administration Senna 1 tab 03/27/18 22:00 03/27/18 21:36 Senna - PO 1 tab HS [facility] Administration Sertraline HCl 25 mg 03/27/18 22:00 03/27/18 21:36 Zoloft - PO 25 mg HS [facility] Administration Impression 1. ESRD 2. fluid overload 3. DM 4. CAD 5. PVD 6. DFU 7. anemia Plan - will arrange for urgent HD today - will also evaluate for HD in am - renal diet and fluids restriction, discussed with pt - monitor pulse ox - discussed with medical team - pts dialysis dry weight will have to be adjusted - check weights daily Dr Dove
[2018-03-28] MEDS: DOCUSATE SODIUM 100 MG CAPSULE (FP) PO SCH ×2 (13:12→21:05)
[2018-03-28] MEDS: SERTRALINE HCL 50 MG TABLET (FP) PO SCH (21:04)
[2018-03-28] MEDS: ATORVASTATIN CA 20 MG TABLET (FP) PO SCH (21:04)
[2018-03-28] MEDS: INSULIN (LEVEMIR) 100 UNITS/ML UNITS SQ SCH (21:05)
[2018-03-28] MEDS: SENNOSIDES 8.6MG TABLET (FP) PO SCH (21:05)
[2018-03-29] MEDS: ACETAMINOPHEN 325 MG TABLET (FP) PO PRN ×4 (05:31→21:58)
[2018-03-29] MEDS: DOCUSATE SODIUM 100 MG CAPSULE (FP) PO SCH ×3 (05:31→21:56)
[2018-03-29] MEDS: INSULIN SLIDING SCALE (NOVOLOG) 1 VIAL SQ SCH ×4 (06:07→21:58)
[2018-03-29] MEDS: LEVOTHYROXINE NA 25 MCG TABLET (FP) PO SCH (06:07)
[2018-03-29 07:01] LABS: BASO % 1.3 % (0-2.0); EOS % 4.6 % (0-4.5); HEMATOCRIT 28.9 % (35.4-49); HEMOGLOBIN 9.5 GM/dL (11.7-16.9); LYMPH % 16.6 % (8-40); MCH 29.8 pg (25.7-33.7); MCHC 32.8 g/dl (32.0-35.9); MEAN CELL VOLUME 90.8 fl (80-96); MEAN PLT VOLUME 8.8 fl (7.5-11.1); NEUT % 66.5 % (42.8-82.8); PLATELET COUNT 160 K/MM3 (134-434); RBC 3.18 M/mm3 (4.00-5.60); RDW 21.5 % (11.9-15.9); WHITE BLOOD COUNT 6.6 K/mm3 (4.0-10.0)
[2018-03-29 08:43] LABS: CHLORIDE 100 mmol/L (98-107); POTASSIUM 4.1 mmol/L (3.5-5.1); SODIUM 140 mmol/L (136-145)
[2018-03-29] MEDS: CALCIUM ACETATE 667 MG CAPSULE (FP) PO SCH ×3 (09:10→17:11)
[2018-03-29 09:11] LABS: ANION GAP 6 (8-16); BLOOD UREA NITROGEN 23 mg/dL (7-18); CALCIUM 8.7 mg/dL (8.5-10.1); CO2 34 mmol/L (21-32); CREATININE 3.2 mg/dL (0.7-1.3); GLUCOSE,RANDOM 80 mg/dL (74-106)
[2018-03-29] MEDS ORDERED: SODIUM CHLORIDE 250 ML IV PRN (09:39)
--- NOTE | 2018-03-29 09:50 | PN ---
Progress Note, Physician History of Present Illness: Dyspnea improving after ultrafiltration. Denies chest pain. - Current Medication List Current Medications: Active Medications Acetaminophen (Tylenol -) 650 mg PO Q4H PRN PRN Reason: PAIN LEVEL 1 - 3 Last Admin: 03/29/18 05:31 Dose: 650 mg Albuterol Sulfate (Ventolin 0.083% Nebulizer Soln -) 1 amp NEB Q3H PRN PRN Reason: SHORT OF BREATH/WHEEZING Last Admin: 03/28/18 02:16 Dose: 1 amp Aspirin (Asa -) 81 mg PO DAILY [facility] Last Admin: 03/28/18 09:24 Dose: 81 mg Atorvastatin Calcium (Lipitor -) 20 mg PO HS [facility] Last Admin: 03/28/18 21:04 Dose: 20 mg Calcium Acetate (Phoslo -) 667 mg PO TIDCM [facility] Last Admin: 03/29/18 09:10 Dose: 667 mg Clopidogrel Bisulfate (Plavix -) 75 mg PO DAILY [facility] Last Admin: 03/28/18 09:23 Dose: 75 mg Docusate Sodium (Colace -) 100 mg PO TID [facility] Last Admin: 03/29/18 05:31 Dose: 100 mg Heparin Sodium (Porcine) (Heparin -) 5,000 unit SQ BID [facility] Last Admin: 03/28/18 21:05 Dose: 5,000 unit Sodium Chloride (Normal Saline -) 250 mls @ 3,000 mls/hr IV PRN PRN PRN Reason: Hypotension during Dialysis Stop: 03/29/18 12:28 Sodium Chloride (Normal Saline -) 250 mls @ 3,000 mls/hr IV PRN PRN PRN Reason: Hypotension during Dialysis Stop: 03/30/18 09:39 Insulin Aspart (Novolog Vial Sliding Scale -) 1 vial SQ [facility]; Protocol Last Admin: 03/29/18 06:07 Dose: Not Given Insulin Detemir (Levemir Vial) 10 units SQ [facility] Last Admin: 03/28/18 21:05 Dose: 10 unit Levothyroxine Sodium (Synthroid -) 25 mcg PO DAILY@0700 [facility] Last Admin: 03/29/18 06:07 Dose: 25 mcg Metoprolol Succinate (Toprol Xl -) 100 mg PO DAILY [facility] Last Admin: 03/28/18 09:24 Dose: 100 mg Multivitamins/Minerals/Vitamin C (Tab-A-Vit -) 1 tab PO DAILY [facility] Last Admin: 03/28/18 09:23 Dose: 1 tab Pantoprazole Sodium (Protonix -) 40 mg PO DAILY [facility] Last Admin: 03/28/18 09:24 Dose: 40 mg Senna (Senna -) 1 tab PO HS [facility] Last Admin: 03/28/18 21:05 Dose: 1 tab Sertraline HCl (Zoloft -) 25 mg PO [facility] Last Admin: 03/28/18 21:04 Dose: 25 mg - Objective Vital Signs: Vital Signs Temperature 98.6 F 03/29/18 05:36 Pulse Rate 80 03/29/18 05:36 Respiratory Rate 18 03/29/18 05:36 Blood Pressure 148/63 03/29/18 05:36 O2 Sat by Pulse Oximetry (%) 98 03/28/18 21:00 Constitutional: Yes: No Distress, Calm, Thin Neck: Yes: Supple Cardiovascular: Yes: Regular Rate and Rhythm Respiratory: Yes: Regular, Diminished, On Nasal O2 Gastrointestinal: Yes: Normal Bowel Sounds, Soft Edema: Yes Edema: LLE: Trace, RLE: Trace Labs: CBC, BMP 03/29/18 06:00 03/29/18 06:00 INR, PTT INR 1.11 (0.82-1.09) 03/27/18 12:06 Problem List - Problems (1) CHF (congestive heart failure), NYHA class IV Code(s): I50.9 - HEART FAILURE, UNSPECIFIED Qualifiers: Congestive heart failure type: combined Congestive heart failure chronicity : acute on chronic Qualified Code(s): I50.43 - Acute on chronic combined systolic (congestive) and diastolic (congestive) heart failure (2) ASHD (arteriosclerotic heart disease) Code(s): I25.10 - ATHSCL HEART DISEASE OF [place] CORONARY ARTERY W/O ANG PCTRS (3) Diabetes Code(s): E11.9 - TYPE 2 DIABETES MELLITUS WITHOUT COMPLICATIONS Qualifiers: Diabetes mellitus type: type 2 (4) ESRD (end stage renal disease) Code(s): N18.6 - END STAGE RENAL DISEASE (5) Gangrene Code(s): I96 - GANGRENE, NOT ELSEWHERE CLASSIFIED (6) HTN (hypertension) Code(s): I10 - ESSENTIAL (PRIMARY) HYPERTENSION Qualifiers: Hypertension type: essential hypertension Qualified Code(s): I10 - Essential (primary) hypertension (7) ICD (implantable cardioverter-defibrillator) in place Code(s): Z95.810 - PRESENCE OF AUTOMATIC (IMPLANTABLE) CARDIAC DEFIBRILLATOR (8) PVD (peripheral vascular disease) Code(s): I73.9 - PERIPHERAL VASCULAR DISEASE, UNSPECIFIED (9) Pleural effusion Code(s): J90 - PLEURAL EFFUSION, NOT ELSEWHERE CLASSIFIED (10) S/P CABG (coronary artery bypass graft) Code(s): Z95.1 - PRESENCE OF AORTOCORONARY BYPASS GRAFT (11) S/P peripheral artery angioplasty with stent placement Code(s): Z95.820 - PERIPHERAL VASCULAR ANGIOPLASTY STATUS W IMPLANTS AND GRAFTS (12) Hypothyroidism Code(s): E03.9 - HYPOTHYROIDISM, UNSPECIFIED (13) Anemia Code(s): D64.9 - ANEMIA, UNSPECIFIED Qualifiers: Anemia type: due to chronic kidney disease (14) Dyspnea Code(s): R06.00 - DYSPNEA, UNSPECIFIED Assessment/Plan 03/01/2018 Echo: Normal LV size with severely decreased LV fxn, mild TR, tr MR, pleural efusion 1. Acute on Chronic Systolic Heart Failure referable to ischemic dilated cardiomyopathy/severe LV systolic dysfunction with left effusion improving 2. CAD post remote [place] post CABG angina pectoris, stable 3. Post prophylactic ICD implant ([employer]'s device) 4. HTN 5. IDDM 6. Hypercholesterolemia 7. PAD with left toe gangrene s/p aortogram, LLE angiogram, SFA atherectomy, DCB SFA angioplasty, with sfa stent 8. ESRD on HD 9. Anemia of CKD 10. Hypothyroidism PLAN: 1. Volume removal via UF/HD, adjust Synthroid dose per TSH 2. Continue Toprol XL 100 qd 3. Stopped Lisinopril 10 qd undergoing 36 hrs washout period then start Entresto bid and titrate dosage as tolerated and hemodynamics permitting 4. Continue ASA 81 qd and Plavix 75 qd 4. Decreased Lipitor 20 qhs (03/01/2018 LDL 31) 5. DVT and GI prophylaxis, encourage ambulation
--- NOTE | 2018-03-29 10:30 | PN ---
Progress Note, Physician History of Present Illness: Pt seen and examined at bedside. He feels that his breathing improved after HD. He still complains of lower ext edema. He still requires oxygen. - Current Medication List Current Medications: Active Medications Acetaminophen (Tylenol -) 650 mg PO Q4H PRN PRN Reason: PAIN LEVEL 1 - 3 Last Admin: 03/29/18 05:31 Dose: 650 mg Albuterol Sulfate (Ventolin 0.083% Nebulizer Soln -) 1 amp NEB Q3H PRN PRN Reason: SHORT OF BREATH/WHEEZING Last Admin: 03/28/18 02:16 Dose: 1 amp Aspirin (Asa -) 81 mg PO DAILY [facility] Last Admin: 03/28/18 09:24 Dose: 81 mg Atorvastatin Calcium (Lipitor -) 20 mg PO HS [facility] Last Admin: 03/28/18 21:04 Dose: 20 mg Calcium Acetate (Phoslo -) 667 mg PO TIDCM [facility] Last Admin: 03/29/18 09:10 Dose: 667 mg Clopidogrel Bisulfate (Plavix -) 75 mg PO DAILY [facility] Last Admin: 03/28/18 09:23 Dose: 75 mg Docusate Sodium (Colace -) 100 mg PO TID [facility] Last Admin: 03/29/18 05:31 Dose: 100 mg Heparin Sodium (Porcine) (Heparin -) 5,000 unit SQ BID [facility] Last Admin: 03/28/18 21:05 Dose: 5,000 unit Sodium Chloride (Normal Saline -) 250 mls @ 3,000 mls/hr IV PRN PRN PRN Reason: Hypotension during Dialysis Stop: 03/29/18 12:28 Sodium Chloride (Normal Saline -) 250 mls @ 3,000 mls/hr IV PRN PRN PRN Reason: Hypotension during Dialysis Stop: 03/30/18 09:39 Insulin Aspart (Novolog Vial Sliding Scale -) 1 vial SQ [facility]; Protocol Last Admin: 03/29/18 06:07 Dose: Not Given Insulin Detemir (Levemir Vial) 10 units SQ [facility] Last Admin: 03/28/18 21:05 Dose: 10 unit Levothyroxine Sodium (Synthroid -) 25 mcg PO DAILY@0700 [facility] Last Admin: 03/29/18 06:07 Dose: 25 mcg Metoprolol Succinate (Toprol Xl -) 100 mg PO DAILY [facility] Last Admin: 03/28/18 09:24 Dose: 100 mg Multivitamins/Minerals/Vitamin C (Tab-A-Vit -) 1 tab PO DAILY [facility] Last Admin: 03/28/18 09:23 Dose: 1 tab Pantoprazole Sodium (Protonix -) 40 mg PO DAILY [facility] Last Admin: 03/28/18 09:24 Dose: 40 mg Senna (Senna -) 1 tab PO HS [facility] Last Admin: 03/28/18 21:05 Dose: 1 tab Sertraline HCl (Zoloft -) 25 mg PO HS [facility] Last Admin: 03/28/18 21:04 Dose: 25 mg - Objective Vital Signs: Vital Signs Temperature 98.6 F 03/29/18 05:36 Pulse Rate 80 03/29/18 05:36 Respiratory Rate 18 03/29/18 05:36 Blood Pressure 148/63 03/29/18 05:36 O2 Sat by Pulse Oximetry (%) 98 03/28/18 21:00 Constitutional: Yes: Calm Eyes: Yes: Conjunctiva Clear HENT: Yes: Atraumatic Neck: Yes: Supple Cardiovascular: Yes: S1, S2 Respiratory: Yes: On Nasal O2 Gastrointestinal: Yes: Soft Genitourinary: Yes: WNL Musculoskeletal: Yes: WNL Edema: Yes Edema: LLE: 1+, RLE: 1+ Neurological: Yes: Oriented Psychiatric: Yes: Oriented Labs: CBC, BMP 03/29/18 06:00 03/29/18 06:00 INR, PTT INR 1.11 (0.82-1.09) 03/27/18 12:06 Problem List - Problems (1) Anemia Code(s): D64.9 - ANEMIA, UNSPECIFIED Qualifiers: Anemia type: due to chronic kidney disease (2) CHF (congestive heart failure), NYHA class IV Code(s): I50.9 - HEART FAILURE, UNSPECIFIED Qualifiers: Congestive heart failure type: combined Congestive heart failure chronicity : acute on chronic Qualified Code(s): I50.43 - Acute on chronic combined systolic (congestive) and diastolic (congestive) heart failure (3) ESRD (end stage renal disease) Code(s): N18.6 - END STAGE RENAL DISEASE Assessment/Plan Current Medications Generic Name Dose Route Start Last Admin Trade Name Freq PRN Reason Stop Dose Admin Acetaminophen 650 mg 03/27/18 20:22 03/29/18 05:31 Tylenol - PO 650 mg Q4H PRN Administration PAIN LEVEL 1 - 3 Albuterol Sulfate 1 amp 03/27/18 20:22 03/28/18 02:16 Ventolin 0.083% Nebulizer Soln - NEB 1 amp Q3H PRN Administration SHORT OF BREATH/WHEEZING Aspirin 81 mg 03/28/18 10:00 03/28/18 09:24 Asa - PO 81 mg DAILY [facility] Administration Atorvastatin Calcium 20 mg 03/28/18 10:46 03/28/18 21:04 Lipitor - PO 20 mg HS [facility] Administration Calcium Acetate 667 mg 03/27/18 20:45 03/29/18 09:10 Phoslo - PO 667 mg TIDCM [facility] Administration Clopidogrel Bisulfate 75 mg 03/28/18 10:00 03/28/18 09:23 Plavix - PO 75 mg DAILY [facility] Administration Docusate Sodium 100 mg 03/28/18 14:00 03/29/18 05:31 Colace - PO 100 mg TID [facility] Administration Heparin Sodium (Porcine) 5,000 unit 03/27/18 22:00 03/28/18 21:05 Heparin - SQ 5,000 unit BID [facility] Administration Sodium Chloride 250 mls @ 3,000 mls/hr 03/28/18 12:28 Normal Saline - IV 03/29/18 12:28 PRN PRN Hypotension during Dialysis Sodium Chloride 250 mls @ 3,000 mls/hr 03/29/18 09:39 Normal Saline - IV 03/30/18 09:39 PRN PRN Hypotension during Dialysis Insulin Aspart 1 vial 03/27/18 22:00 03/29/18 06:07 Novolog Vial Sliding Scale - SQ Not Given ACHS [facility] Protocol Insulin Detemir 10 units 03/28/18 11:42 03/28/18 21:05 Levemir Vial SQ 10 unit HS [facility] Administration Levothyroxine Sodium 25 mcg 03/28/18 07:00 03/29/18 06:07 Synthroid - PO 25 mcg DAILY@0700 [facility] Administration Metoprolol Succinate 100 mg 03/28/18 10:00 03/28/18 09:24 Toprol Xl - PO 100 mg DAILY [facility] Administration Multivitamins/Minerals/Vitamin C 1 tab 03/28/18 10:00 03/28/18 09:23 Tab-A-Vit - PO 1 tab DAILY [facility] Administration Pantoprazole Sodium 40 mg 03/28/18 10:00 03/28/18 09:24 Protonix - PO 40 mg DAILY [facility] Administration Senna 1 tab 03/27/18 22:00 03/28/18 21:05 Senna - PO 1 tab HS [facility] Administration Sertraline HCl 25 mg 03/27/18 22:00 03/28/18 21:04 Zoloft - PO 25 mg HS [facility] Administration Selected Entries 03/27/18 03/28/18 11:36 02:58 Weight 160 lb 152 lb 9.6 oz Impression 1. ESRD 2. fluid overload 3. DM 4. CAD 5. PVD 6. DFU 7. anemia Plan - HD today - will UF more volume as pt is still overloaded - discussed fluid intake and restrictions again - he does look more comfortable than yesterday - repeat weight in am - monitor pulse ox Dr Dove
[2018-03-29] MEDS: HEPARIN NA (PORCINE) 5,000 UNITS/ML 1ML VIAL SQ SCH ×2 (10:49→21:57)
[2018-03-29] MEDS: ASPIRIN 81 MG CHEWABLE TABLETS PO SCH (10:49)
[2018-03-29] MEDS: CLOPIDOGREL BISULFATE 75 MG TABLET (FP) PO SCH (10:49)
[2018-03-29] MEDS: MULTIVITAMINS (DAILY MVI) TABLET (FP) PO SCH (10:50)
[2018-03-29] MEDS: PANTOPRAZOLE 40 MG TABLET (FP) PO SCH (10:50)
--- NOTE | 2018-03-29 11:18 | PN ---
Progress Note, Physician Chief Complaint: pt examined sob better - Current Medication List Current Medications: Active Medications Acetaminophen (Tylenol -) 650 mg PO Q4H PRN PRN Reason: PAIN LEVEL 1 - 3 Last Admin: 03/29/18 10:42 Dose: 650 mg Albuterol Sulfate (Ventolin 0.083% Nebulizer Soln -) 1 amp NEB Q3H PRN PRN Reason: SHORT OF BREATH/WHEEZING Last Admin: 03/28/18 02:16 Dose: 1 amp Aspirin (Asa -) [address] [facility] Last Admin: 03/29/18 10:49 Dose: Not Given Atorvastatin Calcium (Lipitor -) [address] [facility] Last Admin: 03/28/18 21:04 Dose: 20 mg Calcium Acetate (Phoslo -) [address] [facility] Last Admin: 03/29/18 09:10 Dose: 667 mg Clopidogrel Bisulfate (Plavix -) [address] [facility] Last Admin: 03/29/18 10:49 Dose: Not Given Docusate Sodium (Colace -) [address] [facility] Last Admin: 03/29/18 05:31 Dose: 100 mg Heparin Sodium (Porcine) (Heparin -) 5,[address] [facility] Last Admin: 03/29/18 10:49 Dose: Not Given Sodium Chloride (Normal Saline -) 250 mls @ 3,000 mls/hr IV PRN PRN PRN Reason: Hypotension during Dialysis Stop: 03/29/18 12:28 Sodium Chloride (Normal Saline -) 250 mls @ 3,000 mls/hr IV PRN PRN PRN Reason: Hypotension during Dialysis Stop: 03/30/18 09:39 Insulin Aspart (Novolog Vial Sliding Scale -) 1 vial SQ [facility]; Protocol Last Admin: 03/29/18 06:07 Dose: Not Given Insulin Detemir (Levemir Vial) 10 units SQ [facility] Last Admin: 03/28/18 21:05 Dose: 10 unit Levothyroxine Sodium (Synthroid -) 25 mcg PO DAILY@0700 [facility] Last Admin: 03/29/18 06:07 Dose: 25 mcg Metoprolol Succinate (Toprol Xl -) [address] [facility] Last Admin: 03/29/18 10:50 Dose: Not Given Multivitamins/Minerals/Vitamin C (Tab-A-Vit -) [address] [facility] Last Admin: 03/29/18 10:50 Dose: Not Given Pantoprazole Sodium (Protonix -) [address] [facility] Last Admin: 03/29/18 10:50 Dose: Not Given Senna (Senna -) [address] [facility] Last Admin: 03/28/18 21:05 Dose: 1 tab Sertraline HCl (Zoloft -) [address] [facility] Last Admin: 03/28/18 21:04 Dose: 25 mg - Objective Vital Signs: Vital Signs Temperature 98.2 F 03/29/18 10:55 Pulse Rate 81 03/29/18 11:00 Respiratory Rate 20 03/29/18 11:00 Blood Pressure 156/98 03/29/18 11:00 O2 Sat by Pulse Oximetry (%) 98 03/28/18 21:00 Constitutional: Yes: No Distress Cardiovascular: Yes: Regular Rate and Rhythm Respiratory: Yes: Diminished Gastrointestinal: Yes: Normal Bowel Sounds, Soft. No: Tenderness Edema: No Labs: CBC, BMP 03/29/18 06:00 03/29/18 06:00 INR, PTT INR 1.11 (0.82-1.09) 03/27/18 12:06 Problem List - Problems (1) CHF (congestive heart failure), NYHA class IV Code(s): I50.9 - HEART FAILURE, UNSPECIFIED Qualifiers: Congestive heart failure type: combined Congestive heart failure chronicity : acute on chronic Qualified Code(s): I50.43 - Acute on chronic combined systolic (congestive) and diastolic (congestive) heart failure (2) Hypothyroidism Code(s): E03.9 - HYPOTHYROIDISM, UNSPECIFIED (3) ASHD (arteriosclerotic heart disease) Code(s): I25.10 - ATHSCL HEART DISEASE OF [place] CORONARY ARTERY W/O ANG PCTRS (4) Diabetes Code(s): E11.9 - TYPE 2 DIABETES MELLITUS WITHOUT COMPLICATIONS Qualifiers: Diabetes mellitus type: type 2 Diabetes mellitus mcc insulin use: without long term care phlebotomist use Diabetes mellitus complication status: with neurologic complications (5) ESRD (end stage renal disease) Code(s): N18.6 - END STAGE RENAL DISEASE Assessment/Plan PLAN pt better after being dialysed dialysis per renal advised fluid restriction continue with meds
[2018-03-29] MEDS ORDERED: INSULIN (NOVOLOG) ASPART 100 UNITS/ML 10ML VIAL ONE (21:47)
[2018-03-29] MEDS: SERTRALINE HCL 50 MG TABLET (FP) PO SCH (21:56)
[2018-03-29] MEDS: INSULIN (LEVEMIR) 100 UNITS/ML UNITS SQ SCH (21:57)
[2018-03-29] MEDS: ATORVASTATIN CA 20 MG TABLET (FP) PO SCH (21:57)
[2018-03-29] MEDS: SENNOSIDES 8.6MG TABLET (FP) PO SCH (21:57)
[2018-03-30] MEDS: LEVOTHYROXINE NA 25 MCG TABLET (FP) PO SCH (06:40)
[2018-03-30] MEDS: INSULIN SLIDING SCALE (NOVOLOG) 1 VIAL SQ SCH ×4 (06:40→21:43)
[2018-03-30] MEDS: DOCUSATE SODIUM 100 MG CAPSULE (FP) PO SCH ×3 (06:40→21:42)
[2018-03-30] MEDS ORDERED: PT OWN MED DRAWER 7, Y5N ONE ×4 (09:10→21:28)
[2018-03-30] MEDS: CALCIUM ACETATE 667 MG CAPSULE (FP) PO SCH ×3 (09:16→17:01)
[2018-03-30] MEDS: PANTOPRAZOLE 40 MG TABLET (FP) PO SCH (09:16)
[2018-03-30] MEDS: HEPARIN NA (PORCINE) 5,000 UNITS/ML 1ML VIAL SQ SCH ×2 (09:16→21:42)
[2018-03-30] MEDS: ASPIRIN 81 MG CHEWABLE TABLETS PO SCH (09:16)
[2018-03-30] MEDS: MULTIVITAMINS (DAILY MVI) TABLET (FP) PO SCH (09:16)
[2018-03-30] MEDS: CLOPIDOGREL BISULFATE 75 MG TABLET (FP) PO SCH (09:16)
--- NOTE | 2018-03-30 10:59 | PN ---
Progress Note, Physician History of Present Illness: Dyspnea improving after ultrafiltration. Denies chest pain. - Current Medication List Current Medications: Active Medications Acetaminophen (Tylenol -) 650 mg PO Q4H PRN PRN Reason: PAIN LEVEL 1 - 3 Last Admin: 03/29/18 21:58 Dose: 650 mg Albuterol Sulfate (Ventolin 0.083% Nebulizer Soln -) 1 amp NEB Q3H PRN PRN Reason: SHORT OF BREATH/WHEEZING Last Admin: 03/28/18 02:16 Dose: 1 amp Aspirin (Asa -) 81 mg PO DAILY [facility] Last Admin: 03/30/18 09:16 Dose: 81 mg Atorvastatin Calcium (Lipitor -) 20 mg PO HS [facility] Last Admin: 03/29/18 21:57 Dose: 20 mg Calcium Acetate (Phoslo -) 667 mg PO TIDCM [facility] Last Admin: 03/30/18 09:16 Dose: 667 mg Clopidogrel Bisulfate (Plavix -) 75 mg PO DAILY [facility] Last Admin: 03/30/18 09:16 Dose: 75 mg Docusate Sodium (Colace -) 100 mg PO TID [facility] Last Admin: 03/30/18 06:40 Dose: 100 mg Heparin Sodium (Porcine) (Heparin -) 5,000 unit SQ BID [facility] Last Admin: 03/30/18 09:16 Dose: 5,000 unit Sodium Chloride (Normal Saline -) 250 mls @ 3,000 mls/hr IV PRN PRN PRN Reason: Hypotension during Dialysis Stop: 03/29/18 12:28 Sodium Chloride (Normal Saline -) 250 mls @ 3,000 mls/hr IV PRN PRN PRN Reason: Hypotension during Dialysis Stop: 03/30/18 09:39 Insulin Aspart (Novolog Vial Sliding Scale -) [address] [facility]; Protocol Last Admin: 03/30/18 06:40 Dose: Not Given Insulin Detemir (Levemir Vial) 10 units SQ [facility] Last Admin: 03/29/18 21:57 Dose: 10 unit Levothyroxine Sodium (Synthroid -) 25 mcg PO DAILY@0700 [facility] Last Admin: 03/30/18 06:40 Dose: 25 mcg Metoprolol Succinate (Toprol Xl -) 100 mg PO DAILY [facility] Last Admin: 03/30/18 09:16 Dose: 100 mg Multivitamins/Minerals/Vitamin C (Tab-A-Vit -) 1 tab PO DAILY [facility] Last Admin: 03/30/18 09:16 Dose: 1 tab Pantoprazole Sodium (Protonix -) 40 mg PO DAILY [facility] Last Admin: 03/30/18 09:16 Dose: 40 mg Senna (Senna -) 1 tab PO HS [facility] Last Admin: 03/29/18 21:57 Dose: 1 tab Sertraline HCl (Zoloft -) 25 mg PO HS [facility] Last Admin: 03/29/18 21:56 Dose: 25 mg - Objective Vital Signs: Vital Signs Temperature 98.2 F 03/30/18 10:00 Pulse Rate 80 03/30/18 10:00 Respiratory Rate 20 03/30/18 10:00 Blood Pressure 136/56 03/30/18 10:00 O2 Sat by Pulse Oximetry (%) 96 03/30/18 09:00 Constitutional: Yes: No Distress, Calm, Thin Neck: Yes: Supple Cardiovascular: Yes: Regular Rate and Rhythm Respiratory: Yes: Regular, Diminished, On Nasal O2 Gastrointestinal: Yes: Normal Bowel Sounds, Soft Edema: No Labs: CBC, BMP 03/29/18 06:00 03/29/18 06:00 INR, PTT INR 1.11 (0.82-1.09) 03/27/18 12:06 - ....Imaging EKG: Report Reviewed (Tele: A-paced) Problem List - Problems (1) CHF (congestive heart failure), NYHA class IV Code(s): I50.9 - HEART FAILURE, UNSPECIFIED Qualifiers: Congestive heart failure type: combined Congestive heart failure chronicity : acute on chronic Qualified Code(s): I50.43 - Acute on chronic combined systolic (congestive) and diastolic (congestive) heart failure (2) ASHD (arteriosclerotic heart disease) Code(s): I25.10 - ATHSCL HEART DISEASE OF [place] CORONARY ARTERY W/O ANG PCTRS (3) Diabetes Code(s): E11.9 - TYPE 2 DIABETES MELLITUS WITHOUT COMPLICATIONS Qualifiers: Diabetes mellitus type: type 2 (4) ESRD (end stage renal disease) Code(s): N18.6 - END STAGE RENAL DISEASE (5) Gangrene Code(s): I96 - GANGRENE, NOT ELSEWHERE CLASSIFIED (6) HTN (hypertension) Code(s): I10 - ESSENTIAL (PRIMARY) HYPERTENSION Qualifiers: Hypertension type: essential hypertension Qualified Code(s): I10 - Essential (primary) hypertension (7) ICD (implantable cardioverter-defibrillator) in place Code(s): Z95.810 - PRESENCE OF AUTOMATIC (IMPLANTABLE) CARDIAC DEFIBRILLATOR (8) PVD (peripheral vascular disease) Code(s): I73.9 - PERIPHERAL VASCULAR DISEASE, UNSPECIFIED (9) Pleural effusion Code(s): J90 - PLEURAL EFFUSION, NOT ELSEWHERE CLASSIFIED (10) S/P CABG (coronary artery bypass graft) Code(s): Z95.1 - PRESENCE OF AORTOCORONARY BYPASS GRAFT (11) S/P peripheral artery angioplasty with stent placement Code(s): Z95.820 - PERIPHERAL VASCULAR ANGIOPLASTY STATUS W IMPLANTS AND GRAFTS (12) Hypothyroidism Code(s): E03.9 - HYPOTHYROIDISM, UNSPECIFIED (13) Anemia Code(s): D64.9 - ANEMIA, UNSPECIFIED Qualifiers: Anemia type: due to chronic kidney disease (14) Dyspnea Code(s): R06.00 - DYSPNEA, UNSPECIFIED Assessment/Plan 03/01/2018 Echo: Normal LV size with severely decreased LV fxn, mild TR, tr MR, pleural efusion 1. Acute on Chronic Systolic Heart Failure referable to ischemic dilated cardiomyopathy/severe LV systolic dysfunction with left effusion improving 2. CAD post remote [place] post CABG angina pectoris, stable 3. Post prophylactic ICD implant ([employer]'s device) 4. HTN 5. IDDM 6. Hypercholesterolemia 7. PAD with left toe gangrene s/p aortogram, LLE angiogram, SFA atherectomy, DCB SFA angioplasty, with sfa stent 8. ESRD on HD 9. Anemia of CKD 10. Hypothyroidism PLAN: 1. Volume removal via UF/HD, adjust Synthroid dose per TSH 2. Continue Toprol XL 100 qd 3. Stopped Lisinopril 10 qd 48 hrs ago, start Entresto 24/ bid and titrate dosage as tolerated and hemodynamics permitting 4. Continue ASA 81 qd and Plavix 75 qd 5. Decreased Lipitor 20 qhs (03/01/2018 LDL 31) 6. DVT and GI prophylaxis, encourage ambulation
[2018-03-30] MEDS ORDERED: INSULIN (NOVOLOG) ASPART 100 UNITS/ML 10ML VIAL ONE (11:13)
--- NOTE | 2018-03-30 12:54 | PN ---
Progress Note (short form) - Note Progress Note: Pt seen/ examined chart reviewed awake/ comfortable says breathing much better had dialysis yesterday c/c- pain in right arm - started after avf fistula placement Vital Signs Temp 98.2 F 03/30/18 10:00 Pulse 80 03/30/18 10:00 Resp 20 03/30/18 10:00 BP 136/56 03/30/18 10:00 Pulse Ox 96 03/30/18 09:00 Intake & Output 03/29/18 03/30/18 03/30/18 23:59 11:59 23:59 Intake Total 200 350 Balance 200 350 Weight 144 lb 4 oz Intake: Oral 200 350 Other: Voiding Method Urinal Toilet # Unmeasured Voids Void 1 Bowel Movement Yes No Weight Measurement Method Standing Scale Active Medications Acetaminophen (Tylenol -) 650 mg PO Q4H PRN PRN Reason: PAIN LEVEL 1 - 3 Last Admin: 03/29/18 21:58 Dose: 650 mg Albuterol Sulfate (Ventolin 0.083% Nebulizer Soln -) 1 amp NEB Q3H PRN PRN Reason: SHORT OF BREATH/WHEEZING Last Admin: 03/28/18 02:16 Dose: 1 amp Aspirin (Asa -) 81 mg PO DAILY [facility] Last Admin: 03/30/18 09:16 Dose: 81 mg Atorvastatin Calcium (Lipitor -) 20 mg PO HS [facility] Last Admin: 03/29/18 21:57 Dose: 20 mg Calcium Acetate (Phoslo -) 667 mg PO TIDCM [facility] Last Admin: 03/30/18 11:17 Dose: 667 mg Clopidogrel Bisulfate (Plavix -) 75 mg PO DAILY [facility] Last Admin: 03/30/18 09:16 Dose: 75 mg Docusate Sodium (Colace -) 100 mg PO TID [facility] Last Admin: 03/30/18 06:40 Dose: 100 mg Heparin Sodium (Porcine) (Heparin -) 5,000 unit SQ BID [facility] Last Admin: 03/30/18 09:16 Dose: 5,000 unit Sodium Chloride (Normal Saline -) 250 mls @ 3,000 mls/hr IV PRN PRN PRN Reason: Hypotension during Dialysis Stop: 03/29/18 12:28 Sodium Chloride (Normal Saline -) 250 mls @ 3,000 mls/hr IV PRN PRN PRN Reason: Hypotension during Dialysis Stop: 03/30/18 09:39 Insulin Aspart (Novolog Vial Sliding Scale -) 1 vial SQ [facility]; Protocol Last Admin: 03/30/18 11:17 Dose: 4 units Insulin Detemir (Levemir Vial) 10 units SQ [facility] Last Admin: 03/29/18 21:57 Dose: 10 unit Levothyroxine Sodium (Synthroid -) 25 mcg PO DAILY@0700 [facility] Last Admin: 03/30/18 06:40 Dose: 25 mcg Metoprolol Succinate (Toprol Xl -) 100 mg PO DAILY [facility] Last Admin: 03/30/18 09:16 Dose: 100 mg Multivitamins/Minerals/Vitamin C (Tab-A-Vit -) 1 tab PO DAILY [facility] Last Admin: 03/30/18 09:16 Dose: 1 tab Pantoprazole Sodium (Protonix -) 40 mg PO DAILY [facility] Last Admin: 03/30/18 09:16 Dose: 40 mg Sacubitril/Valsartan (Entresto 24 Mg-26 Mg Tablet) 1 tab PO BID [facility] Senna (Senna -) 1 tab PO [facility] Last Admin: 03/29/18 21:57 Dose: 1 tab Sertraline HCl (Zoloft -) 25 mg PO [facility] Last Admin: 03/29/18 21:56 Dose: 25 mg CBC, BMP 03/29/18 06:00 03/29/18 06:00 Physical Examination Constitutional: Yes: No Distress, Comfortable Cardiovascular: Yes: Regular Rate and Rhythm Respiratory: Yes: Diminished at bases Gastrointestinal: Yes: Normal Bowel Sounds, Soft. No: Tenderness rue-- no swelling. Bruie + toe - no sign of infection- better Neurological: Yes: Alert, Oriented Psychiatric: Yes: Alert, Oriented Imaging - Results Chest X-ray: Image Reviewed (congested) EKG: Image Reviewed (paced) Problem List - Problems (1) CHF (congestive heart failure), NYHA class IV Code(s): I50.9 - HEART FAILURE, UNSPECIFIED Qualifiers: Congestive heart failure type: combined Congestive heart failure chronicity : acute on chronic Qualified Code(s): I50.43 - Acute on chronic combined systolic (congestive) and diastolic (congestive) heart failure (2) Hypothyroidism Code(s): E03.9 - HYPOTHYROIDISM, UNSPECIFIED (3) ASHD (arteriosclerotic heart disease) Code(s): I25.10 - ATHSCL HEART DISEASE OF [place] CORONARY ARTERY W/O ANG PCTRS (4) Diabetes Code(s): E11.9 - TYPE 2 DIABETES MELLITUS WITHOUT COMPLICATIONS Qualifiers: Diabetes mellitus type: type 2 (5) ESRD (end stage renal disease) Code(s): N18.6 - END STAGE RENAL DISEASE Assessment/Plan better continue present care dialysis per renal meds reviewed add neurontin arm pain will follow d/c tele d/c planning -- if better - consider tomorrow discussed with nursing staff also
--- NOTE | 2018-03-30 14:35 | PN ---
Progress Note, Physician History of Present Illness: Pt seen and examined at bedside. He tolerated HD yesterday. He feels that his breathing is improving. - Current Medication List Current Medications: Active Medications Acetaminophen (Tylenol -) 650 mg PO Q4H PRN PRN Reason: PAIN LEVEL 1 - 3 Last Admin: 03/29/18 21:58 Dose: 650 mg Albuterol Sulfate (Ventolin 0.083% Nebulizer Soln -) 1 amp NEB Q3H PRN PRN Reason: SHORT OF BREATH/WHEEZING Last Admin: 03/28/18 02:16 Dose: 1 amp Aspirin (Asa -) 81 mg PO DAILY [facility] Last Admin: 03/30/18 09:16 Dose: 81 mg Atorvastatin Calcium (Lipitor -) 20 mg PO HS [facility] Last Admin: 03/29/18 21:57 Dose: 20 mg Calcium Acetate (Phoslo -) 667 mg PO TIDCM [facility] Last Admin: 03/30/18 11:17 Dose: 667 mg Clopidogrel Bisulfate (Plavix -) 75 mg PO DAILY [facility] Last Admin: 03/30/18 09:16 Dose: 75 mg Docusate Sodium (Colace -) 100 mg PO TID [facility] Last Admin: 03/30/18 06:40 Dose: 100 mg Gabapentin (Neurontin -) 100 mg PO TID [facility] Heparin Sodium (Porcine) (Heparin -) 5,000 unit SQ BID [facility] Last Admin: 03/30/18 09:16 Dose: 5,000 unit Sodium Chloride (Normal Saline -) 250 mls @ 3,000 mls/hr IV PRN PRN PRN Reason: Hypotension during Dialysis Stop: 03/29/18 12:28 Sodium Chloride (Normal Saline -) 250 mls @ 3,000 mls/hr IV PRN PRN PRN Reason: Hypotension during Dialysis Stop: 03/30/18 09:39 Insulin Aspart (Novolog Vial Sliding Scale -) 1 vial SQ [facility]; Protocol Last Admin: 03/30/18 11:17 Dose: 4 units Insulin Detemir (Levemir Vial) 10 units SQ [facility] Last Admin: 03/29/18 21:57 Dose: 10 unit Levothyroxine Sodium (Synthroid -) 25 mcg PO DAILY@0700 [facility] Last Admin: 03/30/18 06:40 Dose: 25 mcg Metoprolol Succinate (Toprol Xl -) 100 mg PO DAILY [facility] Last Admin: 06/22/18 09:16 Dose: 100 mg Multivitamins/Minerals/Vitamin C (Tab-A-Vit -) 1 tab PO DAILY [facility] Last Admin: 03/30/18 09:16 Dose: 1 tab Pantoprazole Sodium (Protonix -) 40 mg PO DAILY [facility] Last Admin: 03/30/18 09:16 Dose: 40 mg Sacubitril/Valsartan (Entresto 24 Mg-26 Mg Tablet) 1 tab PO BID [facility] Senna (Senna -) 1 tab PO HS [facility] Last Admin: 03/29/18 21:57 Dose: 1 tab Sertraline HCl (Zoloft -) 25 mg PO HS [facility] Last Admin: 03/29/18 21:56 Dose: 25 mg - Objective Vital Signs: Vital Signs Temperature 98.2 F 03/30/18 10:00 Pulse Rate 80 03/30/18 10:00 Respiratory Rate 20 03/30/18 10:00 Blood Pressure 136/56 03/30/18 10:00 O2 Sat by Pulse Oximetry (%) 96 03/30/18 09:00 Constitutional: Yes: Calm Eyes: Yes: Conjunctiva Clear HENT: Yes: Atraumatic Neck: Yes: Supple Cardiovascular: Yes: S1, S2 Respiratory: Yes: CTA Bilaterally, On Nasal O2 Gastrointestinal: Yes: Soft Genitourinary: Yes: WNL Musculoskeletal: Yes: WNL Extremities: Yes: Other (access with thrill and bruit) Neurological: Yes: Oriented Psychiatric: Yes: Oriented Labs: CBC, BMP 03/29/18 06:00 03/29/18 06:00 INR, PTT INR 1.11 (0.82-1.09) 03/27/18 12:06 Problem List - Problems (1) Anemia Code(s): D64.9 - ANEMIA, UNSPECIFIED Qualifiers: Anemia type: due to chronic kidney disease (2) CHF (congestive heart failure), NYHA class IV Code(s): I50.9 - HEART FAILURE, UNSPECIFIED Qualifiers: Congestive heart failure type: combined Congestive heart failure chronicity : acute on chronic Qualified Code(s): I50.43 - Acute on chronic combined systolic (congestive) and diastolic (congestive) heart failure (3) ESRD (end stage renal disease) Code(s): N18.6 - END STAGE RENAL DISEASE Assessment/Plan Current Medications Generic Name Dose Route Start Last Admin Trade Name Brian PRN Reason Stop Dose Admin Acetaminophen 650 mg 03/27/18 20:22 03/29/18 21:58 Tylenol - PO 650 mg Q4H PRN Administration PAIN LEVEL 1 - 3 Albuterol Sulfate 1 amp 03/27/18 20:22 03/28/18 02:16 Ventolin 0.083% Nebulizer Soln - NEB 1 amp Q3H PRN Administration SHORT OF BREATH/WHEEZING Aspirin 81 mg 03/28/18 10:00 03/30/18 09:16 Asa - PO 81 mg DAILY [facility] Administration Atorvastatin Calcium 20 mg 03/28/18 10:46 03/29/18 21:57 Lipitor - PO 20 mg HS [facility] Administration Calcium Acetate 667 mg 03/27/18 20:45 03/30/18 11:17 Phoslo - PO 667 mg TIDCM [facility] Administration Clopidogrel Bisulfate 75 mg 03/28/18 10:00 03/30/18 09:16 Plavix - PO 75 mg DAILY [facility] Administration Docusate Sodium 100 mg 03/28/18 14:00 03/30/18 06:40 Colace - PO 100 mg TID [facility] Administration Gabapentin 100 mg 03/30/18 14:00 Neurontin - PO TID [facility] Heparin Sodium (Porcine) 5,000 unit 03/27/18 22:00 03/30/18 09:16 Heparin - SQ 5,000 unit BID [facility] Administration Sodium Chloride 250 mls @ 3,000 mls/hr 03/28/18 12:28 Normal Saline - IV 03/29/18 12:28 PRN PRN Hypotension during Dialysis Sodium Chloride 250 mls @ 3,000 mls/hr 03/29/18 09:39 Normal Saline - IV 03/30/18 09:39 PRN PRN Hypotension during Dialysis Insulin Aspart 1 vial 03/27/18 22:00 03/30/18 11:17 Novolog Vial Sliding Scale - SQ 4 units ACHS [facility] Administration Protocol Insulin Detemir 10 units 03/28/18 11:42 03/29/18 21:57 Levemir Vial SQ 10 unit HS [facility] Administration Levothyroxine Sodium 25 mcg 03/28/18 07:00 03/30/18 06:40 Synthroid - PO 25 mcg DAILY@0700 [facility] Administration Metoprolol Succinate 100 mg 03/28/18 10:00 03/30/18 09:16 Toprol Xl - PO 100 mg DAILY [facility] Administration Multivitamins/Minerals/Vitamin C 1 tab 03/28/18 10:00 03/30/18 09:16 Tab-A-Vit - PO 1 tab DAILY [facility] Administration Pantoprazole Sodium 40 mg 03/28/18 10:00 03/30/18 09:16 Protonix - PO 40 mg DAILY [facility] Administration Sacubitril/Valsartan 1 tab 03/30/18 11:15 Entresto 24 Mg-26 Mg Tablet PO BID [facility] Senna 1 tab 03/27/18 22:00 03/29/18 21:57 Senna - PO 1 tab HS [facility] Administration Sertraline HCl 25 mg 03/27/18 22:00 03/29/18 21:56 Zoloft - PO 25 mg HS [facility] Administration Impression 1. ESRD 2. fluid overload 3. DM 4. CAD 5. PVD 6. DFU 7. anemia Plan - will arrange for HD in am - will UF volume - volume status is improving - pt is requesting to see Dr Richard about his fistula - repeat weight in am - monitor pulse ox - renal diet with close monitoring of fluid intake Dr Dove
[2018-03-30] MEDS: ACETAMINOPHEN 325 MG TABLET (FP) PO PRN ×2 (14:46→21:43)
[2018-03-30] MEDS: GABAPENTIN 100 MG CAPSULE (FP) PO SCH ×2 (14:46→21:42)
[2018-03-30] MEDS: SACUBITRIL/VALSARTAN 24 MG-26 MG TABLET PO SCH ×2 (14:47→21:42)
[2018-03-30] MEDS: SERTRALINE HCL 50 MG TABLET (FP) PO SCH (21:42)
[2018-03-30] MEDS: ATORVASTATIN CA 20 MG TABLET (FP) PO SCH (21:42)
[2018-03-30] MEDS: SENNOSIDES 8.6MG TABLET (FP) PO SCH (21:42)
[2018-03-30] MEDS: INSULIN (LEVEMIR) 100 UNITS/ML UNITS SQ SCH (21:43)
[2018-03-31 00:12] LABS: HBSAG SCREEN Negative (Negative); HEP A AB, IGM Negative (Negative); HEP B CORE AB, TOT Negative (Negative)
[2018-03-31] MEDS: ACETAMINOPHEN 325 MG TABLET (FP) PO PRN ×2 (05:58→23:02)
[2018-03-31] MEDS: DOCUSATE SODIUM 100 MG CAPSULE (FP) PO SCH ×3 (05:58→21:38)
[2018-03-31] MEDS: GABAPENTIN 100 MG CAPSULE (FP) PO SCH ×3 (05:58→21:39)
[2018-03-31] MEDS: LEVOTHYROXINE NA 25 MCG TABLET (FP) PO SCH (05:59)
[2018-03-31] MEDS: INSULIN SLIDING SCALE (NOVOLOG) 1 VIAL SQ SCH ×4 (06:00→21:33)
[2018-03-31] MEDS ORDERED: SODIUM CHLORIDE 250 ML IV PRN (07:40)
[2018-03-31] MEDS: CALCIUM ACETATE 667 MG CAPSULE (FP) PO SCH ×3 (07:53→17:05)
[2018-03-31 08:44] LABS: HEMATOCRIT 32.7 % (35.4-49); HEMOGLOBIN 10.6 GM/dL (11.7-16.9); MCH 29.6 pg (25.7-33.7); MCHC 32.4 g/dl (32.0-35.9); MEAN CELL VOLUME 91.3 fl (80-96); MEAN PLT VOLUME 8.8 fl (7.5-11.1); PLATELET COUNT 179 K/MM3 (134-434); RBC 3.58 M/mm3 (4.00-5.60); RDW 21.2 % (11.9-15.9); WHITE BLOOD COUNT 7.6 K/mm3 (4.0-10.0)
[2018-03-31] MEDS ORDERED: EPOETIN ALFA 3,000 UNIT/1 ML ML IVPUSH ONE (09:00)
[2018-03-31 09:31] LABS: ALBUMIN 3.2 g/dl (3.4-5.0); ALK PHOS 128 U/L (45-117); ANION GAP 7 (8-16); BILIRUBIN,TOTAL 0.5 mg/dL (0.2-1.0); BLOOD UREA NITROGEN 40 mg/dL (7-18); CALCIUM 8.2 mg/dL (8.5-10.1); CHLORIDE 102 mmol/L (98-107); CO2 29 mmol/L (21-32); CREATININE 4.1 mg/dL (0.7-1.3); GLUCOSE,RANDOM 152 mg/dL (74-106); POTASSIUM 5.2 mmol/L (3.5-5.1); SGOT/AST 20 U/L (15-37); SGPT/ALT 21 U/L (12-78); SODIUM 138 mmol/L (136-145); TOT PROT 6.9 g/dl (6.4-8.2)
--- NOTE | 2018-03-31 10:06 | PN ---
Progress Note, Physician Chief Complaint: Seen in dialysis unit Not in distress History of Present Illness: Patient was seen and examined. Awake and alert. Chart was reviewed Denies chest pain, SOB or palpitation - Current Medication List Current Medications: Active Medications Acetaminophen (Tylenol -) 650 mg PO Q4H PRN PRN Reason: PAIN LEVEL 1 - 3 Last Admin: 03/31/18 05:58 Dose: 650 mg Albuterol Sulfate (Ventolin 0.083% Nebulizer Soln -) 1 amp NEB Q3H PRN PRN Reason: SHORT OF BREATH/WHEEZING Last Admin: 03/28/18 02:16 Dose: 1 amp Aspirin (Asa -) 81 mg PO DAILY [facility] Last Admin: 03/30/18 09:16 Dose: 81 mg Atorvastatin Calcium (Lipitor -) 20 mg PO [facility] Last Admin: 03/30/18 21:42 Dose: 20 mg Calcium Acetate (Phoslo -) 667 mg PO TIDCM [facility] Last Admin: 03/31/18 07:53 Dose: 667 mg Clopidogrel Bisulfate (Plavix -) 75 mg PO DAILY [facility] Last Admin: 03/30/18 09:16 Dose: 75 mg Docusate Sodium (Colace -) 100 mg PO TID [facility] Last Admin: 03/31/18 05:58 Dose: 100 mg Gabapentin (Neurontin -) 100 mg PO TID [facility] Last Admin: 03/31/18 05:58 Dose: 100 mg Heparin Sodium (Porcine) (Heparin -) 5,000 unit SQ BID [facility] Last Admin: 03/30/18 21:42 Dose: 5,000 unit Insulin Aspart (Novolog Vial Sliding Scale -) 1 vial SQ [facility]; Protocol Last Admin: 03/31/18 06:00 Dose: Not Given Insulin Detemir (Levemir Vial) 10 units SQ [facility] Last Admin: 03/30/18 21:43 Dose: 10 unit Levothyroxine Sodium (Synthroid -) 25 mcg PO DAILY@0700 [facility] Last Admin: 03/31/18 05:59 Dose: 25 mcg Metoprolol Succinate (Toprol Xl -) 100 mg PO DAILY [facility] Last Admin: 03/30/18 09:16 Dose: 100 mg Multivitamins/Minerals/Vitamin C (Tab-A-Vit -) 1 tab PO DAILY [facility] Last Admin: 03/30/18 09:16 Dose: 1 tab Pantoprazole Sodium (Protonix -) 40 mg PO DAILY [facility] Last Admin: 03/30/18 09:16 Dose: 40 mg Sacubitril/Valsartan (Entresto 24 Mg-26 Mg Tablet) 1 tab PO BID [facility] Last Admin: 03/30/18 21:42 Dose: 1 tab Senna (Senna -) 1 tab PO HS [facility] Last Admin: 03/30/18 21:42 Dose: 1 tab Sertraline HCl (Zoloft -) 25 mg PO HS [facility] Last Admin: 03/30/18 21:42 Dose: 25 mg - Objective Vital Signs: Vital Signs Temperature 97.6 F 03/31/18 08:10 Pulse Rate 80 03/31/18 09:45 Respiratory Rate 18 03/31/18 09:45 Blood Pressure 127/61 03/31/18 09:45 O2 Sat by Pulse Oximetry (%) 97 03/30/18 21:00 HENT: Yes: Atraumatic Neck: Yes: Supple Cardiovascular: Yes: Regular Rate and Rhythm, S1, S2 Respiratory: Yes: CTA Bilaterally Gastrointestinal: Yes: Normal Bowel Sounds, Soft. No: Tenderness Edema: No Additional Findings/Remarks: - Review of Systems Constitutional: denies: Chills, Fever Cardiovascular: denies: Chest Pain, Shortness of Breath. denies: Palpitations Respiratory: denies: SOB, SOB on Exertion. denies: Cough, Hemoptysis, Orthopnea , PND Gastrointestinal: denies: Abdominal Pain, Constipation, Diarrhea, Melena, Nausea , Rectal Bleeding, Vomiting Musculoskeletal: denies: Joint Pain. denies: Back Pain Neurological: denies: Unsteady Gait, Weakness. denies: Dizziness, Headache, Seizure, Syncope Labs: CBC, BMP 03/31/18 08:15 03/31/18 08:15 INR, PTT INR 1.11 (0.82-1.09) 03/27/18 12:06 Problem List - Problems (1) Anemia Code(s): D64.9 - ANEMIA, UNSPECIFIED Qualifiers: Anemia type: due to chronic kidney disease (2) ASHD (arteriosclerotic heart disease) Code(s): I25.10 - ATHSCL HEART DISEASE OF [place] CORONARY ARTERY W/O ANG PCTRS (3) COPD (chronic obstructive pulmonary disease) Code(s): J44.9 - CHRONIC OBSTRUCTIVE PULMONARY DISEASE, UNSPECIFIED (4) Diabetes Code(s): E11.9 - TYPE 2 DIABETES MELLITUS WITHOUT COMPLICATIONS Qualifiers: Diabetes mellitus type: type 2 (5) ESRD (end stage renal disease) Code(s): N18.6 - END STAGE RENAL DISEASE (6) HTN (hypertension) Code(s): I10 - ESSENTIAL (PRIMARY) HYPERTENSION Qualifiers: Hypertension type: essential hypertension Qualified Code(s): I10 - Essential (primary) hypertension (7) ICD (implantable cardioverter-defibrillator) in place Code(s): Z95.810 - PRESENCE OF AUTOMATIC (IMPLANTABLE) CARDIAC DEFIBRILLATOR (8) PVD (peripheral vascular disease) Code(s): I73.9 - PERIPHERAL VASCULAR DISEASE, UNSPECIFIED (9) S/P CABG (coronary artery bypass graft) Code(s): Z95.1 - PRESENCE OF AORTOCORONARY BYPASS GRAFT (10) S/P peripheral artery angioplasty with stent placement Code(s): Z95.820 - PERIPHERAL VASCULAR ANGIOPLASTY STATUS W IMPLANTS AND GRAFTS Assessment/Plan 1. Acute on Chronic Systolic Heart Failure referable to ischemic dilated cardiomyopathy/severe LV systolic dysfunction with left effusion 2. CAD post remote ME post CABG angina pectoris, stable 3. Post prophylactic ICD implant ([employer]'s device) 4. HTN 5. IDDM 6. Hypercholesterolemia 7. PAD with left toe gangrene s/p aortogram, LLE angiogram, SFA atherectomy, DCB SFA angioplasty, with sfa stent 8. ESRD on HD 9. Anemia of CKD 10. Hypothyroidism PLAN: 1. Continue HD 2. Continue Toprol XL 100 qd 3. Continue Entresto 24/26 bid as tolerated and titrate dosage as tolerated and hemodynamics permitting 4. Continue ASA 81 qd and Plavix 75 qd 5. Continue Lipitor 20 qhs 6. DVT and GI prophylaxis, encourage ambulation Further plans are to follow Jarocho Taylor MD
--- NOTE | 2018-03-31 10:37 | PN ---
Progress Note, Physician Chief Complaint: pt examined in dialysis feels well no SOB - Current Medication List Current Medications: Active Medications Acetaminophen (Tylenol -) 650 mg PO Q4H PRN PRN Reason: PAIN LEVEL 1 - 3 Last Admin: 03/31/18 05:58 Dose: 650 mg Albuterol Sulfate (Ventolin 0.083% Nebulizer Soln -) 1 amp NEB Q3H PRN PRN Reason: SHORT OF BREATH/WHEEZING Last Admin: 03/28/18 02:16 Dose: 1 amp Aspirin (Asa -) 81 mg PO DAILY [facility] Last Admin: 03/30/18 09:16 Dose: 81 mg Atorvastatin Calcium (Lipitor -) 20 mg PO [facility] Last Admin: 03/30/18 21:42 Dose: 20 mg Calcium Acetate (Phoslo -) 667 mg PO TIDCM [facility] Last Admin: 03/31/18 07:53 Dose: 667 mg Clopidogrel Bisulfate (Plavix -) 75 mg PO DAILY [facility] Last Admin: 03/30/18 09:16 Dose: 75 mg Docusate Sodium (Colace -) 100 mg PO TID [facility] Last Admin: 03/31/18 05:58 Dose: 100 mg Gabapentin (Neurontin -) 100 mg PO TID [facility] Last Admin: 03/31/18 05:58 Dose: 100 mg Heparin Sodium (Porcine) (Heparin -) 5,000 unit SQ BID [facility] Last Admin: 03/30/18 21:42 Dose: 5,000 unit Insulin Aspart (Novolog Vial Sliding Scale -) 1 vial SQ [facility]; Protocol Last Admin: 03/31/18 06:00 Dose: Not Given Insulin Detemir (Levemir Vial) 10 units SQ [facility] Last Admin: 03/30/18 21:43 Dose: 10 unit Levothyroxine Sodium (Synthroid -) 25 mcg PO DAILY@0700 [facility] Last Admin: 03/31/18 05:59 Dose: 25 mcg Metoprolol Succinate (Toprol Xl -) 100 mg PO DAILY [facility] Last Admin: 03/30/18 09:16 Dose: 100 mg Multivitamins/Minerals/Vitamin C (Tab-A-Vit -) 1 tab PO DAILY [facility] Last Admin: 03/30/18 09:16 Dose: 1 tab Pantoprazole Sodium (Protonix -) 40 mg PO DAILY [facility] Last Admin: 03/30/18 09:16 Dose: 40 mg Sacubitril/Valsartan (Entresto 24 Mg-26 Mg Tablet) 1 tab PO BID [facility] Last Admin: 03/30/18 21:42 Dose: 1 tab Senna (Senna -) 1 tab PO [facility] Last Admin: 03/30/18 21:42 Dose: 1 tab Sertraline HCl (Zoloft -) 25 mg PO [facility] Last Admin: 03/30/18 21:42 Dose: 25 mg - Objective Vital Signs: Vital Signs Temperature 97.8 F 03/31/18 10:00 Pulse Rate 80 03/31/18 10:15 Respiratory Rate 18 03/31/18 10:15 Blood Pressure 130/57 03/31/18 10:15 O2 Sat by Pulse Oximetry (%) 97 03/31/18 10:00 Constitutional: Yes: No Distress Cardiovascular: Yes: Regular Rate and Rhythm Respiratory: Yes: Diminished Gastrointestinal: Yes: Normal Bowel Sounds, Soft. No: Tenderness Edema: No Labs: CBC, BMP 03/31/18 08:15 03/31/18 08:15 INR, PTT INR 1.11 (0.82-1.09) 03/27/18 12:06 Problem List - Problems (1) CHF (congestive heart failure), NYHA class IV Code(s): I50.9 - HEART FAILURE, UNSPECIFIED Qualifiers: Congestive heart failure type: combined Congestive heart failure chronicity : acute on chronic Qualified Code(s): I50.43 - Acute on chronic combined systolic (congestive) and diastolic (congestive) heart failure (2) Hypothyroidism Code(s): E03.9 - HYPOTHYROIDISM, UNSPECIFIED (3) ASHD (arteriosclerotic heart disease) Code(s): I25.10 - ATHSCL HEART DISEASE OF [place] CORONARY ARTERY W/O ANG PCTRS (4) Diabetes Code(s): E11.9 - TYPE 2 DIABETES MELLITUS WITHOUT COMPLICATIONS Qualifiers: Diabetes mellitus type: type 2 (5) ESRD (end stage renal disease) Code(s): N18.6 - END STAGE RENAL DISEASE Assessment/Plan PLAN Cardiac enzymes negative dialysis per renal advised fluid restriction continue with meds Vascular eval for gangrene big toe-- s/p recent angioplasty
[2018-03-31] MEDS: HEPARIN NA (PORCINE) 5,000 UNITS/ML 1ML VIAL SQ SCH ×2 (11:35→21:38)
[2018-03-31] MEDS: SACUBITRIL/VALSARTAN 24 MG-26 MG TABLET PO SCH ×2 (12:21→21:33)
[2018-03-31] MEDS: ASPIRIN 81 MG CHEWABLE TABLETS PO SCH (12:22)
[2018-03-31] MEDS: MULTIVITAMINS (DAILY MVI) TABLET (FP) PO SCH (12:23)
[2018-03-31] MEDS: PANTOPRAZOLE 40 MG TABLET (FP) PO SCH (12:24)
[2018-03-31] MEDS: CLOPIDOGREL BISULFATE 75 MG TABLET (FP) PO SCH (12:24)
--- NOTE | 2018-03-31 14:06 | PN ---
Progress Note, Physician History of Present Illness: Pt seen and examined at bedside. He is awake and alert. He tolerated HD today. He feels that his shortness of breath is improving. - Current Medication List Current Medications: Active Medications Acetaminophen (Tylenol -) 650 mg PO Q4H PRN PRN Reason: PAIN LEVEL 1 - 3 Last Admin: 03/31/18 05:58 Dose: 650 mg Albuterol Sulfate (Ventolin 0.083% Nebulizer Soln -) 1 amp NEB Q3H PRN PRN Reason: SHORT OF BREATH/WHEEZING Last Admin: 03/28/18 02:16 Dose: 1 amp Aspirin (Asa -) 81 mg PO DAILY [facility] Last Admin: 03/31/18 12:22 Dose: 81 mg Atorvastatin Calcium (Lipitor -) 20 mg PO [facility] Last Admin: 03/30/18 21:42 Dose: 20 mg Calcium Acetate (Phoslo -) 667 mg PO TIDCM [facility] Last Admin: 03/31/18 12:24 Dose: 667 mg Clopidogrel Bisulfate (Plavix -) 75 mg PO DAILY [facility] Last Admin: 03/31/18 12:24 Dose: 75 mg Docusate Sodium (Colace -) 100 mg PO TID [facility] Last Admin: 03/31/18 13:33 Dose: 100 mg Gabapentin (Neurontin -) 100 mg PO TID [facility] Last Admin: 03/31/18 13:33 Dose: 100 mg Heparin Sodium (Porcine) (Heparin -) 5,000 unit SQ BID [facility] Last Admin: 03/31/18 11:35 Dose: 5,000 unit Insulin Aspart (Novolog Vial Sliding Scale -) 1 vial SQ [facility]; Protocol Last Admin: 03/31/18 12:25 Dose: 2 units Insulin Detemir (Levemir Vial) 10 units SQ [facility] Last Admin: 03/30/18 21:43 Dose: 10 unit Levothyroxine Sodium (Synthroid -) 25 mcg PO DAILY@0700 [facility] Last Admin: 03/31/18 05:59 Dose: 25 mcg Metoprolol Succinate (Toprol Xl -) 100 mg PO DAILY [facility] Last Admin: 03/31/18 12:24 Dose: 100 mg Multivitamins/Minerals/Vitamin C (Tab-A-Vit -) 1 tab PO DAILY [facility] Last Admin: 03/31/18 12:23 Dose: 1 tab Pantoprazole Sodium (Protonix -) 40 mg PO DAILY [facility] Last Admin: 03/31/18 12:24 Dose: 40 mg Sacubitril/Valsartan (Entresto 24 Mg-26 Mg Tablet) 1 tab PO BID [facility] Last Admin: 03/31/18 12:21 Dose: 1 tab Senna (Senna -) 1 tab PO HS [facility] Last Admin: 03/30/18 21:42 Dose: 1 tab Sertraline HCl (Zoloft -) 25 mg PO [facility] Last Admin: 03/30/18 21:42 Dose: 25 mg - Objective Vital Signs: Vital Signs Temperature 97.8 F 03/31/18 10:00 Pulse Rate 82 03/31/18 11:50 Respiratory Rate 18 03/31/18 11:50 Blood Pressure 141/79 03/31/18 11:50 O2 Sat by Pulse Oximetry (%) 97 03/31/18 10:00 Constitutional: Yes: Calm Eyes: Yes: Conjunctiva Clear HENT: Yes: Atraumatic Cardiovascular: Yes: S1, S2 Respiratory: Yes: On Nasal O2 Gastrointestinal: Yes: Normal Bowel Sounds, Soft Genitourinary: Yes: WNL Musculoskeletal: Yes: WNL Edema: No Neurological: Yes: Oriented Psychiatric: Yes: Oriented Labs: CBC, BMP 03/31/18 08:15 03/31/18 08:15 INR, PTT INR 1.11 (0.82-1.09) 03/27/18 12:06 Problem List - Problems (1) Anemia Code(s): D64.9 - ANEMIA, UNSPECIFIED Qualifiers: Anemia type: due to chronic kidney disease (2) CHF (congestive heart failure), NYHA class IV Code(s): I50.9 - HEART FAILURE, UNSPECIFIED Qualifiers: Congestive heart failure type: combined Congestive heart failure chronicity : acute on chronic Qualified Code(s): I50.43 - Acute on chronic combined systolic (congestive) and diastolic (congestive) heart failure (3) ESRD (end stage renal disease) Code(s): N18.6 - END STAGE RENAL DISEASE Assessment/Plan Current Medications Generic Name Dose Route Start Last Admin Trade Name Freq PRN Reason Stop Dose Admin Acetaminophen 650 mg 03/27/18 20:22 03/31/18 05:58 Tylenol - PO 650 mg Q4H PRN Administration PAIN LEVEL 1 - 3 Albuterol Sulfate 1 amp 03/27/18 20:22 03/28/18 02:16 Ventolin 0.083% Nebulizer Soln - NEB 1 amp Q3H PRN Administration SHORT OF BREATH/WHEEZING Aspirin 81 mg 03/28/18 10:00 03/31/18 12:22 Asa - PO 81 mg DAILY [facility] Administration Atorvastatin Calcium 20 mg 03/28/18 10:46 03/30/18 21:42 Lipitor - PO 20 mg HS [facility] Administration Calcium Acetate 667 mg 03/27/18 20:45 03/31/18 12:24 Phoslo - PO 667 mg TIDCM [facility] Administration Clopidogrel Bisulfate 75 mg 03/28/18 10:00 03/31/18 12:24 Plavix - PO 75 mg DAILY [facility] Administration Docusate Sodium 100 mg 03/28/18 14:00 03/31/18 13:33 Colace - PO 100 mg TID [facility] Administration Gabapentin 100 mg 03/30/18 14:00 03/31/18 13:33 Neurontin - PO 100 mg TID [facility] Administration Heparin Sodium (Porcine) 5,000 unit 03/27/18 22:00 03/31/18 11:35 Heparin - SQ 5,000 unit BID [facility] Administration Insulin Aspart 1 vial 03/27/18 22:00 03/31/18 12:25 Novolog Vial Sliding Scale - SQ 2 units ACHS [facility] Administration Protocol Insulin Detemir 10 units 03/28/18 11:42 03/30/18 21:43 Levemir Vial SQ 10 unit HS [facility] Administration Levothyroxine Sodium 25 mcg 03/28/18 07:00 03/31/18 05:59 Synthroid - PO 25 mcg DAILY@0700 [facility] Administration Metoprolol Succinate 100 mg 03/28/18 10:00 03/31/18 12:24 Toprol Xl - PO 100 mg DAILY [facility] Administration Multivitamins/Minerals/Vitamin C 1 tab 03/28/18 10:00 03/31/18 12:23 Tab-A-Vit - PO 1 tab DAILY [facility] Administration Pantoprazole Sodium 40 mg 03/28/18 10:00 03/31/18 12:24 Protonix - PO 40 mg DAILY [facility] Administration Sacubitril/Valsartan 1 tab 03/30/18 11:15 03/31/18 12:21 Entresto 24 Mg-26 Mg Tablet PO 1 tab BID [facility] Administration Senna 1 tab 03/27/18 22:00 03/30/18 21:42 Senna - PO 1 tab HS [facility] Administration Sertraline HCl 25 mg 03/27/18 22:00 03/30/18 21:42 Zoloft - PO 25 mg HS [facility] Administration Impression 1. ESRD 2. fluid overload 3. DM 4. CAD 5. PVD 6. DFU 7. anemia Plan - HD today - restrict fluid and cont renal diet - volume status is improving - monitor pulse ox - monitor weights Dr Dove
[2018-03-31] MEDS ORDERED: PT OWN MED DRAWER 7, Y5N ONE ×2 (17:25→21:04)
[2018-03-31] MEDS: SENNOSIDES 8.6MG TABLET (FP) PO SCH (21:33)
[2018-03-31] MEDS: SERTRALINE HCL 50 MG TABLET (FP) PO SCH (21:38)
[2018-03-31] MEDS: ATORVASTATIN CA 20 MG TABLET (FP) PO SCH (21:39)
[2018-03-31] MEDS: INSULIN (LEVEMIR) 100 UNITS/ML UNITS SQ SCH (21:40)
[2018-04-01] MEDS ORDERED: traMADol HCL 50 MG TABLET PO ONE (01:24)
[2018-04-01] MEDS: DOCUSATE SODIUM 100 MG CAPSULE (FP) PO SCH ×3 (05:57→21:24)
[2018-04-01] MEDS: GABAPENTIN 100 MG CAPSULE (FP) PO SCH ×3 (05:57→21:24)
[2018-04-01] MEDS: INSULIN SLIDING SCALE (NOVOLOG) 1 VIAL SQ SCH ×4 (05:59→21:25)
[2018-04-01] MEDS: LEVOTHYROXINE NA 25 MCG TABLET (FP) PO SCH (05:59)
--- NOTE | 2018-04-01 09:24 | PN ---
Progress Note, Physician Chief Complaint: Resting comfortably Not in distress History of Present Illness: Patient was seen and examined. Awake and alert. Chart was reviewed Denies chest pain, SOB or palpitation - Current Medication List Current Medications: Active Medications Acetaminophen (Tylenol -) 650 mg PO Q4H PRN PRN Reason: PAIN LEVEL 1 - 3 Last Admin: 03/31/18 23:02 Dose: 650 mg Albuterol Sulfate (Ventolin 0.083% Nebulizer Soln -) 1 amp NEB Q3H PRN PRN Reason: SHORT OF BREATH/WHEEZING Last Admin: 03/28/18 02:16 Dose: 1 amp Aspirin (Asa -) 81 mg PO DAILY [facility] Last Admin: 03/31/18 12:22 Dose: 81 mg Atorvastatin Calcium (Lipitor -) 20 mg PO [facility] Last Admin: 03/31/18 21:39 Dose: 20 mg Calcium Acetate (Phoslo -) 667 mg PO TIDCM [facility] Last Admin: 03/31/18 17:05 Dose: 667 mg Clopidogrel Bisulfate (Plavix -) 75 mg PO DAILY [facility] Last Admin: 03/31/18 12:24 Dose: 75 mg Docusate Sodium (Colace -) 100 mg PO TID [facility] Last Admin: 04/01/18 05:57 Dose: 100 mg Gabapentin (Neurontin -) 100 mg PO TID [facility] Last Admin: 04/01/18 05:57 Dose: 100 mg Heparin Sodium (Porcine) (Heparin -) 5,000 unit SQ BID [facility] Last Admin: 03/31/18 21:38 Dose: 5,000 unit Insulin Aspart (Novolog Vial Sliding Scale -) 1 vial SQ [facility]; Protocol Last Admin: 04/01/18 05:59 Dose: Not Given Insulin Detemir (Levemir Vial) 10 units SQ [facility] Last Admin: 03/31/18 21:40 Dose: 10 unit Levothyroxine Sodium (Synthroid -) 25 mcg PO DAILY@0700 [facility] Last Admin: 04/01/18 05:59 Dose: 25 mcg Metoprolol Succinate (Toprol Xl -) 100 mg PO DAILY [facility] Last Admin: 03/31/18 12:24 Dose: 100 mg Multivitamins/Minerals/Vitamin C (Tab-A-Vit -) 1 tab PO DAILY [facility] Last Admin: 03/31/18 12:23 Dose: 1 tab Pantoprazole Sodium (Protonix -) 40 mg PO DAILY [facility] Last Admin: 03/31/18 12:24 Dose: 40 mg Sacubitril/Valsartan (Entresto 24 Mg-26 Mg Tablet) 1 tab PO BID [facility] Last Admin: 03/31/18 21:33 Dose: 1 tab Senna (Senna -) 1 tab PO HS [facility] Last Admin: 03/31/18 21:33 Dose: 1 tab Sertraline HCl (Zoloft -) 25 mg PO HS [facility] Last Admin: 03/31/18 21:38 Dose: 25 mg - Objective Vital Signs: Vital Signs Temperature 98.7 F 04/01/18 06:00 Pulse Rate 81 04/01/18 06:00 Respiratory Rate 20 04/01/18 06:00 Blood Pressure 140/54 04/01/18 06:00 O2 Sat by Pulse Oximetry (%) 99 03/31/18 21:00 Neck: Yes: Supple Cardiovascular: Yes: Regular Rate and Rhythm, S1, S2 Respiratory: Yes: CTA Bilaterally Gastrointestinal: Yes: Normal Bowel Sounds, Soft. No: Tenderness Edema: No Additional Findings/Remarks: - Review of Systems Constitutional: denies: Chills, Fever Cardiovascular: denies Chest Pain, Shortness of Breath. denies: Palpitations Respiratory: denies SOB, SOB on Exertion. denies: Cough, Hemoptysis, Orthopnea , PND Gastrointestinal: denies: Abdominal Pain, Constipation, Diarrhea, Melena, Nausea , Rectal Bleeding, Vomiting Musculoskeletal: denies Joint Pain. denies: Back Pain Neurological: denies Unsteady Gait, Weakness. denies: Dizziness, Headache, Seizure, Syncope Labs: CBC, BMP 03/31/18 08:15 03/31/18 08:15 INR, PTT INR 1.11 (0.82-1.09) 03/27/18 12:06 Problem List - Problems (1) Anemia Code(s): D64.9 - ANEMIA, UNSPECIFIED Qualifiers: Anemia type: due to chronic kidney disease (2) ASHD (arteriosclerotic heart disease) Code(s): I25.10 - ATHSCL HEART DISEASE OF [place] CORONARY ARTERY W/O ANG PCTRS (3) COPD (chronic obstructive pulmonary disease) Code(s): J44.9 - CHRONIC OBSTRUCTIVE PULMONARY DISEASE, UNSPECIFIED (4) Diabetes Code(s): E11.9 - TYPE 2 DIABETES MELLITUS WITHOUT COMPLICATIONS Qualifiers: Diabetes mellitus type: type 2 Diabetes mellitus detention insulin use: without detention use Diabetes mellitus complication status: without complication Qualified Code(s): E11.9 - Type 2 diabetes mellitus without complications (5) ESRD (end stage renal disease) Code(s): N18.6 - END STAGE RENAL DISEASE (6) HTN (hypertension) Code(s): I10 - ESSENTIAL (PRIMARY) HYPERTENSION Qualifiers: Hypertension type: essential hypertension Qualified Code(s): I10 - Essential (primary) hypertension (7) ICD (implantable cardioverter-defibrillator) in place Code(s): Z95.810 - PRESENCE OF AUTOMATIC (IMPLANTABLE) CARDIAC DEFIBRILLATOR (8) PVD (peripheral vascular disease) Code(s): I73.9 - PERIPHERAL VASCULAR DISEASE, UNSPECIFIED (9) S/P CABG (coronary artery bypass graft) Code(s): Z95.1 - PRESENCE OF AORTOCORONARY BYPASS GRAFT (10) S/P peripheral artery angioplasty with stent placement Code(s): Z95.820 - PERIPHERAL VASCULAR ANGIOPLASTY STATUS W IMPLANTS AND GRAFTS Assessment/Plan 1. Acute on Chronic Systolic Heart Failure referable to ischemic dilated cardiomyopathy/severe LV systolic dysfunction with left effusion 2. CAD post remote LA post CABG angina pectoris, stable 3. Post prophylactic ICD implant ([employer]'s device) 4. HTN 5. IDDM 6. Hypercholesterolemia 7. PAD with left toe gangrene s/p aortogram, LLE angiogram, SFA atherectomy, DCB SFA angioplasty, with sfa stent 8. ESRD on HD 9. Anemia of CKD 10. Hypothyroidism PLAN: 1. Continue HD as per schedule and monitor renal function and electrolytes 2. Continue Toprol XL 100 qd 3. Continue Entresto 24/26 bid as tolerated and titrate dosage as tolerated and hemodynamics permitting 4. Continue ASA 81 qd and Plavix 75 qd 5. Continue Lipitor 20 qhs 6. DVT and GI prophylaxis, encourage ambulation Further plans are to follow Jarocho Taylor MD
[2018-04-01] MEDS: ASPIRIN 81 MG CHEWABLE TABLETS PO SCH (10:00)
[2018-04-01] MEDS: HEPARIN NA (PORCINE) 5,000 UNITS/ML 1ML VIAL SQ SCH ×2 (10:00→21:25)
[2018-04-01] MEDS: MULTIVITAMINS (DAILY MVI) TABLET (FP) PO SCH (10:00)
[2018-04-01] MEDS: CLOPIDOGREL BISULFATE 75 MG TABLET (FP) PO SCH (10:00)
[2018-04-01] MEDS: PANTOPRAZOLE 40 MG TABLET (FP) PO SCH (10:00)
[2018-04-01] MEDS: CALCIUM ACETATE 667 MG CAPSULE (FP) PO SCH ×3 (10:00→17:14)
[2018-04-01] MEDS: SACUBITRIL/VALSARTAN 24 MG-26 MG TABLET PO SCH ×2 (10:00→21:24)
--- NOTE | 2018-04-01 10:32 | PN ---
Progress Note, Physician Chief Complaint: feels well no SOB - Current Medication List Current Medications: Active Medications Acetaminophen (Tylenol -) 650 mg PO Q4H PRN PRN Reason: PAIN LEVEL 1 - 3 Last Admin: 03/31/18 23:02 Dose: 650 mg Albuterol Sulfate (Ventolin 0.083% Nebulizer Soln -) 1 amp NEB Q3H PRN PRN Reason: SHORT OF BREATH/WHEEZING Last Admin: 03/28/18 02:16 Dose: 1 amp Aspirin (Asa -) [address] [facility] Last Admin: 04/01/18 10:00 Dose: 81 mg Atorvastatin Calcium (Lipitor -) 20 mg PO [facility] Last Admin: 03/31/18 21:39 Dose: 20 mg Calcium Acetate (Phoslo -) [address] [facility] Last Admin: 04/01/18 10:00 Dose: 667 mg Clopidogrel Bisulfate (Plavix -) [address] [facility] Last Admin: 04/01/18 10:00 Dose: 75 mg Docusate Sodium (Colace -) [address] [facility] Last Admin: 04/01/18 05:57 Dose: 100 mg Gabapentin (Neurontin -) [address] [facility] Last Admin: 04/01/18 05:57 Dose: 100 mg Heparin Sodium (Porcine) (Heparin -) 5,[address] [facility] Last Admin: 04/01/18 10:00 Dose: 5,000 unit Insulin Aspart (Novolog Vial Sliding Scale -) 1 vial SQ [facility]; Protocol Last Admin: 04/01/18 05:59 Dose: Not Given Insulin Detemir (Levemir Vial) 10 units SQ [facility] Last Admin: 03/31/18 21:40 Dose: 10 unit Levothyroxine Sodium (Synthroid -) 25 mcg PO DAILY@0700 [facility] Last Admin: 04/01/18 05:59 Dose: 25 mcg Metoprolol Succinate (Toprol Xl -) [address] [facility] Last Admin: 04/01/18 10:00 Dose: 100 mg Multivitamins/Minerals/Vitamin C (Tab-A-Vit -) [address] [facility] Last Admin: 04/01/18 10:00 Dose: 1 tab Pantoprazole Sodium (Protonix -) [address] [facility] Last Admin: 04/01/18 10:00 Dose: 40 mg Sacubitril/Valsartan (Entresto 24 Mg-26 Mg Tablet) [address] [facility] Last Admin: 03/31/18 21:33 Dose: 1 tab Senna (Senna -) 1 tab PO [facility] Last Admin: 03/31/18 21:33 Dose: 1 tab Sertraline HCl (Zoloft -) 25 mg PO [facility] Last Admin: 03/31/18 21:38 Dose: 25 mg - Objective Vital Signs: Vital Signs Temperature 97.6 F 04/01/18 09:59 Pulse Rate 80 04/01/18 09:59 Respiratory Rate 20 04/01/18 09:59 Blood Pressure 139/66 04/01/18 09:59 O2 Sat by Pulse Oximetry (%) 99 03/31/18 21:00 Constitutional: Yes: No Distress Cardiovascular: Yes: Regular Rate and Rhythm Respiratory: Yes: Diminished Gastrointestinal: Yes: Normal Bowel Sounds, Soft. No: Tenderness Extremities: Yes: Other (gangrene left big toe) Edema: No Labs: CBC, BMP 03/31/18 08:15 03/31/18 08:15 INR, PTT INR 1.11 (0.82-1.09) 03/27/18 12:06 Problem List - Problems (1) CHF (congestive heart failure), NYHA class IV Code(s): I50.9 - HEART FAILURE, UNSPECIFIED Qualifiers: Congestive heart failure type: combined Congestive heart failure chronicity : acute on chronic Qualified Code(s): I50.43 - Acute on chronic combined systolic (congestive) and diastolic (congestive) heart failure (2) Hypothyroidism Code(s): E03.9 - HYPOTHYROIDISM, UNSPECIFIED (3) ASHD (arteriosclerotic heart disease) Code(s): I25.10 - ATHSCL HEART DISEASE OF [place] CORONARY ARTERY W/O ANG PCTRS (4) Diabetes Code(s): E11.9 - TYPE 2 DIABETES MELLITUS WITHOUT COMPLICATIONS Qualifiers: Diabetes mellitus type: type 2 Diabetes mellitus correction insulin use: without correction use Diabetes mellitus complication status: without complication Qualified Code(s): E11.9 - Type 2 diabetes mellitus without complications (5) ESRD (end stage renal disease) Code(s): N18.6 - END STAGE RENAL DISEASE Assessment/Plan PLAN clinically improving dialysis per renal advised fluid restriction continue with meds Vascular eval for gangrene big toe-- s/p recent angioplasty
[2018-04-01] MEDS ORDERED: SODIUM CHLORIDE 250 ML IV PRN (14:53)
--- NOTE | 2018-04-01 14:53 | PN ---
Progress Note, Physician History of Present Illness: Pt seen and examined at bedside. He is awake and alert. He feels that his breathing is improving. - Current Medication List Current Medications: Active Medications Acetaminophen (Tylenol -) 650 mg PO Q4H PRN PRN Reason: PAIN LEVEL 1 - 3 Last Admin: 03/31/18 23:02 Dose: 650 mg Albuterol Sulfate (Ventolin 0.083% Nebulizer Soln -) 1 amp NEB Q3H PRN PRN Reason: SHORT OF BREATH/WHEEZING Last Admin: 03/28/18 02:16 Dose: 1 amp Aspirin (Asa -) 81 mg PO DAILY [facility] Last Admin: 04/01/18 10:00 Dose: 81 mg Atorvastatin Calcium (Lipitor -) 20 mg PO [facility] Last Admin: 03/31/18 21:39 Dose: 20 mg Calcium Acetate (Phoslo -) 667 mg PO TIDCM [facility] Last Admin: 04/01/18 12:28 Dose: Not Given Clopidogrel Bisulfate (Plavix -) 75 mg PO DAILY [facility] Last Admin: 04/01/18 10:00 Dose: 75 mg Docusate Sodium (Colace -) 100 mg PO TID [facility] Last Admin: 04/01/18 05:57 Dose: 100 mg Gabapentin (Neurontin -) 100 mg PO TID [facility] Last Admin: 04/01/18 05:57 Dose: 100 mg Heparin Sodium (Porcine) (Heparin -) 5,000 unit SQ BID [facility] Last Admin: 04/01/18 10:00 Dose: 5,000 unit Insulin Aspart (Novolog Vial Sliding Scale -) 1 vial SQ [facility]; Protocol Last Admin: 04/01/18 12:28 Dose: 2 units Insulin Detemir (Levemir Vial) 10 units SQ [facility] Last Admin: 03/31/18 21:40 Dose: 10 unit Levothyroxine Sodium (Synthroid -) 25 mcg PO DAILY@0700 [facility] Last Admin: 04/01/18 05:59 Dose: 25 mcg Metoprolol Succinate (Toprol Xl -) 100 mg PO DAILY [facility] Last Admin: 04/01/18 10:00 Dose: 100 mg Multivitamins/Minerals/Vitamin C (Tab-A-Vit -) 1 tab PO DAILY [facility] Last Admin: 04/01/18 10:00 Dose: 1 tab Pantoprazole Sodium (Protonix -) 40 mg PO DAILY [facility] Last Admin: 04/01/18 10:00 Dose: 40 mg Sacubitril/Valsartan (Entresto 24 Mg-26 Mg Tablet) 1 tab PO BID [facility] Last Admin: 03/31/18 21:33 Dose: 1 tab Senna (Senna -) 1 tab PO HS [facility] Last Admin: 03/31/18 21:33 Dose: 1 tab Sertraline HCl (Zoloft -) 25 mg PO [facility] Last Admin: 03/31/18 21:38 Dose: 25 mg - Objective Vital Signs: Vital Signs Temperature 97.6 F 04/01/18 09:59 Pulse Rate 80 04/01/18 09:59 Respiratory Rate 20 04/01/18 09:59 Blood Pressure 139/66 04/01/18 09:59 O2 Sat by Pulse Oximetry (%) 99 03/31/18 21:00 Constitutional: Yes: Calm Eyes: Yes: Conjunctiva Clear HENT: Yes: Atraumatic Neck: Yes: Supple Cardiovascular: Yes: S1, S2 Respiratory: Yes: On Nasal O2 Gastrointestinal: Yes: Soft Genitourinary: Yes: WNL Musculoskeletal: Yes: WNL Edema: Yes Edema: LLE: Trace, RLE: Trace Neurological: Yes: Oriented Psychiatric: Yes: Oriented Labs: CBC, BMP 03/31/18 08:15 03/31/18 08:15 INR, PTT INR 1.11 (0.82-1.09) 03/27/18 12:06 Problem List - Problems (1) Anemia Code(s): D64.9 - ANEMIA, UNSPECIFIED Qualifiers: Anemia type: due to chronic kidney disease (2) CHF (congestive heart failure), NYHA class IV Code(s): I50.9 - HEART FAILURE, UNSPECIFIED Qualifiers: Congestive heart failure type: combined Congestive heart failure chronicity : acute on chronic Qualified Code(s): I50.43 - Acute on chronic combined systolic (congestive) and diastolic (congestive) heart failure (3) ESRD (end stage renal disease) Code(s): N18.6 - END STAGE RENAL DISEASE Assessment/Plan Current Medications Generic Name Dose Route Start Last Admin Trade Name Freq PRN Reason Stop Dose Admin Acetaminophen 650 mg 03/27/18 20:22 03/31/18 23:02 Tylenol - PO 650 mg Q4H PRN Administration PAIN LEVEL 1 - 3 Albuterol Sulfate 1 amp 03/27/18 20:22 03/28/18 02:16 Ventolin 0.083% Nebulizer Soln - NEB 1 amp Q3H PRN Administration SHORT OF BREATH/WHEEZING Aspirin 81 mg 03/28/18 10:00 04/01/18 10:00 Asa - PO 81 mg DAILY [facility] Administration Atorvastatin Calcium 20 mg 03/28/18 10:46 03/31/18 21:39 Lipitor - PO 20 mg HS [facility] Administration Calcium Acetate 667 mg 03/27/18 20:45 04/01/18 12:28 Phoslo - PO Not Given TIDCM [facility] Clopidogrel Bisulfate 75 mg 03/28/18 10:00 04/01/18 10:00 Plavix - PO 75 mg DAILY [facility] Administration Docusate Sodium 100 mg 03/28/18 14:00 04/01/18 05:57 Colace - PO 100 mg TID [facility] Administration Gabapentin 100 mg 03/30/18 14:00 04/01/18 05:57 Neurontin - PO 100 mg TID [facility] Administration Heparin Sodium (Porcine) 5,000 unit 03/27/18 22:00 04/01/18 10:00 Heparin - SQ 5,000 unit BID [facility] Administration Insulin Aspart 1 vial 03/27/18 22:00 04/01/18 12:28 Novolog Vial Sliding Scale - SQ 2 units ACHS [facility] Administration Protocol Insulin Detemir 10 units 03/28/18 11:42 03/31/18 21:40 Levemir Vial SQ 10 unit HS [facility] Administration Levothyroxine Sodium 25 mcg 03/28/18 07:00 04/01/18 05:59 Synthroid - PO 25 mcg DAILY@0700 [facility] Administration Metoprolol Succinate 100 mg 03/28/18 10:00 04/01/18 10:00 Toprol Xl - PO 100 mg DAILY [facility] Administration Multivitamins/Minerals/Vitamin C 1 tab 03/28/18 10:00 04/01/18 10:00 Tab-A-Vit - PO 1 tab DAILY [facility] Administration Pantoprazole Sodium 40 mg 03/28/18 10:00 04/01/18 10:00 Protonix - PO 40 mg DAILY [facility] Administration Sacubitril/Valsartan 1 tab 03/30/18 11:15 03/31/18 21:33 Entresto 24 Mg-26 Mg Tablet PO 1 tab BID [facility] Administration Senna 1 tab 03/27/18 22:00 03/31/18 21:33 Senna - PO 1 tab HS [facility] Administration Sertraline HCl 25 mg 03/27/18 22:00 03/31/18 21:38 Zoloft - PO 25 mg HS [facility] Administration Selected Entries 03/27/18 04/01/18 11:36 06:00 Weight 160 lb 146 lb Impression 1. ESRD 2. fluid overload 3. DM 4. CAD 5. PVD 6. DFU 7. anemia Plan - HD in am - pt will need to have dry weight adjusted in HD - discussed fluid intake with pt - restrict fluid and cont renal diet - volume status is improving - monitor pulse ox - monitor weights Dr Dove
[2018-04-01] MEDS ORDERED: PT OWN MED DRAWER 7, Y5N ONE (20:28)
[2018-04-01] MEDS: ATORVASTATIN CA 20 MG TABLET (FP) PO SCH (21:25)
[2018-04-01] MEDS: traMADol HCL 50 MG TABLET PO PRN (21:25)
[2018-04-01] MEDS: INSULIN (LEVEMIR) 100 UNITS/ML UNITS SQ SCH (21:25)
[2018-04-01] MEDS: SENNOSIDES 8.6MG TABLET (FP) PO SCH (21:25)
[2018-04-01] MEDS: SERTRALINE HCL 50 MG TABLET (FP) PO SCH (21:26)
[2018-04-02] MEDS: traMADol HCL 50 MG TABLET PO PRN (03:40)
[2018-04-02] MEDS: GABAPENTIN 100 MG CAPSULE (FP) PO SCH ×3 (06:09→22:31)
[2018-04-02] MEDS: DOCUSATE SODIUM 100 MG CAPSULE (FP) PO SCH ×3 (06:09→22:31)
[2018-04-02] MEDS: LEVOTHYROXINE NA 25 MCG TABLET (FP) PO SCH (06:09)
[2018-04-02] MEDS: INSULIN SLIDING SCALE (NOVOLOG) 1 VIAL SQ SCH ×4 (06:10→22:34)
[2018-04-02] MEDS: CALCIUM ACETATE 667 MG CAPSULE (FP) PO SCH ×3 (08:00→17:53)
--- NOTE | 2018-04-02 10:15 | PN ---
Progress Note, Physician Chief Complaint: Resting comfortably Not in distress Seen in dialysis unit History of Present Illness: Patient was seen and examined. Awake and alert. Chart was reviewed Denies chest pain, SOB or palpitation - Current Medication List Current Medications: Active Medications Acetaminophen (Tylenol -) 650 mg PO Q4H PRN PRN Reason: PAIN LEVEL 1 - 3 Last Admin: 03/31/18 23:02 Dose: 650 mg Aspirin (Asa -) 81 mg PO DAILY [facility] Last Admin: 04/01/18 10:00 Dose: 81 mg Atorvastatin Calcium (Lipitor -) 20 mg PO HS [facility] Last Admin: 04/01/18 21:25 Dose: 20 mg Calcium Acetate (Phoslo -) 667 mg PO TIDCM [facility] Last Admin: 04/01/18 17:14 Dose: 667 mg Clopidogrel Bisulfate (Plavix -) 75 mg PO DAILY [facility] Last Admin: 04/01/18 10:00 Dose: 75 mg Docusate Sodium (Colace -) 100 mg PO TID [facility] Last Admin: 04/02/18 06:09 Dose: 100 mg Gabapentin (Neurontin -) 100 mg PO TID [facility] Last Admin: 04/02/18 06:09 Dose: 100 mg Heparin Sodium (Porcine) (Heparin -) 5,000 unit SQ BID [facility] Last Admin: 04/01/18 21:25 Dose: 5,000 unit Sodium Chloride (Normal Saline -) 250 mls @ 3,000 mls/hr IV PRN PRN PRN Reason: Hypotension during Dialysis Stop: 04/02/18 14:53 Insulin Aspart (Novolog Vial Sliding Scale -) 1 vial SQ [facility]; Protocol Last Admin: 04/02/18 06:10 Dose: Not Given Insulin Detemir (Levemir Vial) 10 units SQ [facility] Last Admin: 04/01/18 21:25 Dose: 10 unit Levothyroxine Sodium (Synthroid -) 25 mcg PO DAILY@0700 [facility] Last Admin: 04/02/18 06:09 Dose: 25 mcg Metoprolol Succinate (Toprol Xl -) 100 mg PO DAILY [facility] Last Admin: 04/01/18 10:00 Dose: 100 mg Multivitamins/Minerals/Vitamin C (Tab-A-Vit -) 1 tab PO DAILY [facility] Last Admin: 04/01/18 10:00 Dose: 1 tab Pantoprazole Sodium (Protonix -) 40 mg PO DAILY [facility] Last Admin: 04/01/18 10:00 Dose: 40 mg Sacubitril/Valsartan (Entresto 24 Mg-26 Mg Tablet) 1 tab PO BID [facility] Last Admin: 04/01/18 21:24 Dose: 1 tab Senna (Senna -) 1 tab PO HS [facility] Last Admin: 04/01/18 21:25 Dose: 1 tab Sertraline HCl (Zoloft -) 25 mg PO HS [facility] Last Admin: 04/01/18 21:26 Dose: 25 mg - Objective Vital Signs: Vital Signs Temperature 98.3 F 04/02/18 07:55 Pulse Rate 79 04/02/18 09:30 Respiratory Rate 20 04/02/18 09:30 Blood Pressure 108/56 04/02/18 09:30 O2 Sat by Pulse Oximetry (%) 99 04/01/18 21:00 Eyes: Yes: Conjunctiva Clear, PERRL HENT: Yes: Atraumatic Neck: Yes: Supple Cardiovascular: Yes: Regular Rate and Rhythm, S1, S2 Respiratory: Yes: CTA Bilaterally Gastrointestinal: Yes: Normal Bowel Sounds, Soft. No: Tenderness Musculoskeletal: No: Joint Swelling, Muscle Pain Edema: No Peripheral Pulses WNL: Yes Additional Findings/Remarks: - Review of Systems Constitutional: denies: Chills, Fever Cardiovascular: denies Chest Pain, Shortness of Breath. denies: Palpitations Respiratory: denies SOB, SOB on Exertion. denies: Cough, Hemoptysis, Orthopnea , PND Gastrointestinal: denies: Abdominal Pain, Constipation, Diarrhea, Melena, Nausea , Rectal Bleeding, Vomiting Musculoskeletal: denies Joint Pain. denies: Back Pain Neurological: denies Unsteady Gait, Weakness. denies: Dizziness, Headache, Seizure, Syncope Problem List - Problems (1) Anemia Code(s): D64.9 - ANEMIA, UNSPECIFIED Qualifiers: Anemia type: due to chronic kidney disease (2) ASHD (arteriosclerotic heart disease) Code(s): I25.10 - ATHSCL HEART DISEASE OF [place] CORONARY ARTERY W/O ANG PCTRS (3) COPD (chronic obstructive pulmonary disease) Code(s): J44.9 - CHRONIC OBSTRUCTIVE PULMONARY DISEASE, UNSPECIFIED Qualifiers: COPD type: unspecified COPD Qualified Code(s): J44.9 - Chronic obstructive pulmonary disease, unspecified (4) Diabetes Code(s): E11.9 - TYPE 2 DIABETES MELLITUS WITHOUT COMPLICATIONS Qualifiers: Diabetes mellitus type: type 2 Diabetes mellitus fci insulin use: without manager terminal use Diabetes mellitus complication status: with neurologic complications (5) ESRD (end stage renal disease) Code(s): N18.6 - END STAGE RENAL DISEASE (6) HTN (hypertension) Code(s): I10 - ESSENTIAL (PRIMARY) HYPERTENSION Qualifiers: Hypertension type: essential hypertension Qualified Code(s): I10 - Essential (primary) hypertension (7) ICD (implantable cardioverter-defibrillator) in place Code(s): Z95.810 - PRESENCE OF AUTOMATIC (IMPLANTABLE) CARDIAC DEFIBRILLATOR (8) PVD (peripheral vascular disease) Code(s): I73.9 - PERIPHERAL VASCULAR DISEASE, UNSPECIFIED (9) S/P CABG (coronary artery bypass graft) Code(s): Z95.1 - PRESENCE OF AORTOCORONARY BYPASS GRAFT (10) S/P peripheral artery angioplasty with stent placement Code(s): Z95.820 - PERIPHERAL VASCULAR ANGIOPLASTY STATUS W IMPLANTS AND GRAFTS Assessment/Plan 1. Acute on Chronic Systolic Heart Failure referable to ischemic dilated cardiomyopathy/severe LV systolic dysfunction with left effusion 2. CAD post remote PR post CABG angina pectoris, stable 3. Post prophylactic ICD implant ([employer]tr[employer]'s device) 4. HTN 5. IDDM 6. Hypercholesterolemia 7. PAD with left toe gangrene s/p aortogram, LLE angiogram, SFA atherectomy, DCB SFA angioplasty, with sfa stent 8. ESRD on HD 9. Anemia of CKD 10. Hypothyroidism PLAN: 1. Continue HD as per Renal 2. Continue Toprol XL 100 qd 3. Continue Entresto 24/26 bid as tolerated and titrate dosage as tolerated and hemodynamics permitting 4. Continue ASA 81 qd and Plavix 75 qd 5. Continue Lipitor 20 qhs 6. DVT and GI prophylaxis, encourage ambulation Further plans are to follow Jarocho Taylor MD
--- NOTE | 2018-04-02 12:39 | PN ---
Progress Note (short form) - Note Progress Note: Pt examined in dialysis no complaints feels well vitals stable S1 S2 RRR lungs decreased Abd- soft, NT no edema PLAN HD as per renal vascular eval for big toe gangrene pt c/o weakness and numbness of right arm where he had AVF Problem List - Problems (1) CHF (congestive heart failure), NYHA class IV Code(s): I50.9 - HEART FAILURE, UNSPECIFIED Qualifiers: Congestive heart failure type: combined Congestive heart failure chronicity : acute on chronic Qualified Code(s): I50.43 - Acute on chronic combined systolic (congestive) and diastolic (congestive) heart failure (2) Hypothyroidism Code(s): E03.9 - HYPOTHYROIDISM, UNSPECIFIED (3) ASHD (arteriosclerotic heart disease) Code(s): I25.10 - ATHSCL HEART DISEASE OF [place] CORONARY ARTERY W/O ANG PCTRS (4) Diabetes Code(s): E11.9 - TYPE 2 DIABETES MELLITUS WITHOUT COMPLICATIONS Qualifiers: Diabetes mellitus type: type 2 Diabetes mellitus dedicated intermodal truck driver insulin use: without dedicated intermodal truck driver use Diabetes mellitus complication status: with neurologic complications (5) ESRD (end stage renal disease) Code(s): N18.6 - END STAGE RENAL DISEASE
--- NOTE | 2018-04-02 12:39 | DS ---
Physical Examination Vital Signs: Vital Signs Temperature 98.3 F 04/02/18 07:55 Pulse Rate 80 04/02/18 11:45 Respiratory Rate 20 04/02/18 11:45 Blood Pressure 125/63 04/02/18 11:45 O2 Sat by Pulse Oximetry (%) 99 04/01/18 21:00 Labs: CBC, BMP 03/31/18 08:15 03/31/18 08:15 Discharge Summary Reason For Visit: CHF/NYHA Current Active Problems Anemia (Acute) CHF (congestive heart failure), NYHA class IV (Acute) Hypothyroidism (Acute) Condition: Fair - Instructions - Home Medications Comprehensive Discharge Medication List: Ambulatory Orders Acetaminophen 650 mg PO Q4H PRN 02/28/18 Aspirin [ASA -] 81 mg PO DAILY 02/28/18 Atorvastatin Ca [Lipitor] 80 mg PO HS 02/28/18 Calcium Acetate [Phoslo -] 667 mg PO TIDCM 02/28/18 Clopidogrel Bisulfate [Plavix -] 75 mg PO DAILY 02/28/18 Insulin (LOG) Aspart [NovoLOG -] 0 units SQ TID PRN 02/28/18 Insulin Glargine,Hum.rec.anlog [Lantus] 16 unit SQ HS 02/28/18 Levothyroxine [Synthroid -] 25 mcg PO DAILY 02/28/18 Lisinopril 10 mg PO DAILY 02/28/18 Metoprolol Succinate [Toprol Xl] 150 mg PO DAILY 02/28/18 Pantoprazole Sodium 40 mg PO DAILY 02/28/18 Sennosides [Senna -] 1 tab PO HS 02/28/18 Sertraline HCl [Zoloft -] 50 mg PO HS 02/28/18 Heparin - 5,000 unit SQ BID #1 vial 03/10/18 Albuterol 0.083% Nebulizer Yessi [Ventolin 0.083% Nebulizer Soln -] 1 amp IN Q8H PRN 03/28/18
[2018-04-02] MEDS: SACUBITRIL/VALSARTAN 24 MG-26 MG TABLET PO SCH ×2 (14:00→22:31)
--- NOTE | 2018-04-02 14:44 | PN ---
Progress Note, Physician History of Present Illness: Pt seen and examined at bedside. He is awake and alert. He denies shortness of breath. - Current Medication List Current Medications: Active Medications Acetaminophen (Tylenol -) 650 mg PO Q4H PRN PRN Reason: PAIN LEVEL 1 - 3 Last Admin: 03/31/18 23:02 Dose: 650 mg Aspirin (Asa -) 81 mg PO DAILY [facility] Last Admin: 04/01/18 10:00 Dose: 81 mg Atorvastatin Calcium (Lipitor -) 20 mg PO HS [facility] Last Admin: 04/01/18 21:25 Dose: 20 mg Calcium Acetate (Phoslo -) 667 mg PO TIDCM [facility] Last Admin: 04/01/18 17:14 Dose: 667 mg Clopidogrel Bisulfate (Plavix -) 75 mg PO DAILY [facility] Last Admin: 04/01/18 10:00 Dose: 75 mg Docusate Sodium (Colace -) 100 mg PO TID [facility] Last Admin: 04/02/18 06:09 Dose: 100 mg Gabapentin (Neurontin -) 100 mg PO TID [facility] Last Admin: 04/02/18 06:09 Dose: 100 mg Heparin Sodium (Porcine) (Heparin -) 5,000 unit SQ BID [facility] Last Admin: 04/01/18 21:25 Dose: 5,000 unit Sodium Chloride (Normal Saline -) 250 mls @ 3,000 mls/hr IV PRN PRN PRN Reason: Hypotension during Dialysis Stop: 04/02/18 14:53 Insulin Aspart (Novolog Vial Sliding Scale -) 1 vial SQ [facility]; Protocol Last Admin: 04/02/18 06:10 Dose: Not Given Insulin Detemir (Levemir Vial) 10 units SQ [facility] Last Admin: 04/01/18 21:25 Dose: 10 unit Levothyroxine Sodium (Synthroid -) 25 mcg PO DAILY@0700 [facility] Last Admin: 04/02/18 06:09 Dose: 25 mcg Metoprolol Succinate (Toprol Xl -) 100 mg PO DAILY [facility] Last Admin: 04/01/18 10:00 Dose: 100 mg Multivitamins/Minerals/Vitamin C (Tab-A-Vit -) 1 tab PO DAILY [facility] Last Admin: 04/01/18 10:00 Dose: 1 tab Pantoprazole Sodium (Protonix -) 40 mg PO DAILY [facility] Last Admin: 04/01/18 10:00 Dose: 40 mg Sacubitril/Valsartan (Entresto 24 Mg-26 Mg Tablet) 1 tab PO BID [facility] Last Admin: 04/01/18 21:24 Dose: 1 tab Senna (Senna -) 1 tab PO HS [facility] Last Admin: 04/01/18 21:25 Dose: 1 tab Sertraline HCl (Zoloft -) 25 mg PO HS [facility] Last Admin: 04/01/18 21:26 Dose: 25 mg Tramadol HCl (Ultram -) 50 mg PO Q6H PRN PRN Reason: PAIN LEVEL 4 - 6 - Objective Vital Signs: Vital Signs Temperature 99.0 F 04/02/18 13:00 Pulse Rate 87 04/02/18 13:00 Respiratory Rate 18 04/02/18 13:00 Blood Pressure 132/53 04/02/18 13:00 O2 Sat by Pulse Oximetry (%) 99 04/02/18 09:00 Constitutional: Yes: Calm Eyes: Yes: Conjunctiva Clear HENT: Yes: Atraumatic Cardiovascular: Yes: S1, S2 Respiratory: Yes: CTA Bilaterally Gastrointestinal: Yes: Soft Genitourinary: Yes: WNL Musculoskeletal: Yes: WNL Edema: No Neurological: Yes: Oriented Psychiatric: Yes: Oriented Labs: CBC, BMP 03/31/18 08:15 03/31/18 08:15 INR, PTT INR 1.11 (0.82-1.09) 03/27/18 12:06 Problem List - Problems (1) Anemia Code(s): D64.9 - ANEMIA, UNSPECIFIED Qualifiers: Anemia type: due to chronic kidney disease (2) CHF (congestive heart failure), NYHA class IV Code(s): I50.9 - HEART FAILURE, UNSPECIFIED Qualifiers: Congestive heart failure type: combined Congestive heart failure chronicity : acute on chronic Qualified Code(s): I50.43 - Acute on chronic combined systolic (congestive) and diastolic (congestive) heart failure (3) ESRD (end stage renal disease) Code(s): N18.6 - END STAGE RENAL DISEASE Assessment/Plan Current Medications Generic Name Dose Route Start Last Admin Trade Name Freq PRN Reason Stop Dose Admin Acetaminophen 650 mg 03/27/18 20:22 03/31/18 23:02 Tylenol - PO 650 mg Q4H PRN Administration PAIN LEVEL 1 - 3 Aspirin 81 mg 03/28/18 10:00 04/01/18 10:00 Asa - PO 81 mg DAILY [facility] Administration Atorvastatin Calcium 20 mg 03/28/18 10:46 04/01/18 21:25 Lipitor - PO 20 mg HS [facility] Administration Calcium Acetate 667 mg 03/27/18 20:45 04/01/18 17:14 Phoslo - PO 667 mg TIDCM [facility] Administration Clopidogrel Bisulfate 75 mg 03/28/18 10:00 04/01/18 10:00 Plavix - PO 75 mg DAILY [facility] Administration Docusate Sodium 100 mg 03/28/18 14:00 04/02/18 06:09 Colace - PO 100 mg TID [facility] Administration Gabapentin 100 mg 03/30/18 14:00 04/02/18 06:09 Neurontin - PO 100 mg TID [facility] Administration Heparin Sodium (Porcine) 5,000 unit 03/27/18 22:00 04/01/18 21:25 Heparin - SQ 5,000 unit BID [facility] Administration Sodium Chloride 250 mls @ 3,000 mls/hr 04/01/18 14:53 Normal Saline - IV 04/02/18 14:53 PRN PRN Hypotension during Dialysis Insulin Aspart 1 vial 03/27/18 22:00 04/02/18 06:10 Novolog Vial Sliding Scale - SQ Not Given [facility] Protocol Insulin Detemir 10 units 03/28/18 11:42 04/01/18 21:25 Levemir Vial SQ 10 unit HS [facility] Administration Levothyroxine Sodium 25 mcg 03/28/18 07:00 04/02/18 06:09 Synthroid - PO 25 mcg DAILY@0700 [facility] Administration Metoprolol Succinate 100 mg 03/28/18 10:00 04/01/18 10:00 Toprol Xl - PO 100 mg DAILY [facility] Administration Multivitamins/Minerals/Vitamin C 1 tab 03/28/18 10:00 04/01/18 10:00 Tab-A-Vit - PO 1 tab DAILY [facility] Administration Pantoprazole Sodium 40 mg 03/28/18 10:00 04/01/18 10:00 Protonix - PO 40 mg DAILY [facility] Administration Sacubitril/Valsartan 1 tab 03/30/18 11:15 04/01/18 21:24 Entresto 24 Mg-26 Mg Tablet PO 1 tab BID [facility] Administration Senna 1 tab 03/27/18 22:00 04/01/18 21:25 Senna - PO 1 tab HS [facility] Administration Sertraline HCl 25 mg 03/27/18 22:00 04/01/18 21:26 Zoloft - PO 25 mg HS [facility] Administration Tramadol HCl 50 mg 04/02/18 13:55 Ultram - PO Q6H PRN PAIN LEVEL 4 - 6 Impression 1. ESRD 2. fluid overload 3. DM 4. CAD 5. PVD 6. DFU 7. anemia Plan - HD today - dry weight adjusted - discussed compliance with fluid intake - restrict fluid and cont renal diet - monitor pulse ox - monitor weights Dr Dove
[2018-04-02] MEDS: CLOPIDOGREL BISULFATE 75 MG TABLET (FP) PO SCH (14:52)
[2018-04-02] MEDS: MULTIVITAMINS (DAILY MVI) TABLET (FP) PO SCH (14:52)
[2018-04-02] MEDS: ASPIRIN 81 MG CHEWABLE TABLETS PO SCH (14:52)
[2018-04-02] MEDS: PANTOPRAZOLE 40 MG TABLET (FP) PO SCH (14:52)
[2018-04-02] MEDS ORDERED: PT OWN MED DRAWER 7, Y5N ONE (16:39)
[2018-04-02] MEDS: HEPARIN NA (PORCINE) 5,000 UNITS/ML 1ML VIAL SQ SCH ×2 (17:53→22:33)
--- NOTE | 2018-04-02 19:46 | PN ---
Progress Note (short form) - Note Progress Note: Vascular Surgery Pt seen and examined. S/P Left lower ext angiplasty on 03/07. Feels much better. All numbness is gone. 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 Right avf with good bruit and thrill. However pt feels numbness and pain in his right hand causing deformity in his hand. The AVf was made 5 months ago at another instituion. Strong suspicion of steal syndrome from avf. There is no palpable radial pulse. Pt will need venogram, arteriogram to look for inflow stenosis causing steal. Will do angiogram once pt is cleared from a medical standpoint. Robel Nieves DO
[2018-04-02] MEDS: ATORVASTATIN CA 20 MG TABLET (FP) PO SCH (22:32)
[2018-04-02] MEDS: SENNOSIDES 8.6MG TABLET (FP) PO SCH (22:32)
[2018-04-02] MEDS: SERTRALINE HCL 50 MG TABLET (FP) PO SCH (22:32)
[2018-04-02] MEDS: INSULIN (LEVEMIR) 100 UNITS/ML UNITS SQ SCH (22:33)
[2018-04-03] MEDS: LEVOTHYROXINE NA 25 MCG TABLET (FP) PO SCH (06:19)
[2018-04-03] MEDS: DOCUSATE SODIUM 100 MG CAPSULE (FP) PO SCH ×3 (06:19→22:48)
[2018-04-03] MEDS: INSULIN SLIDING SCALE (NOVOLOG) 1 VIAL SQ SCH ×4 (06:19→22:46)
[2018-04-03] MEDS: GABAPENTIN 100 MG CAPSULE (FP) PO SCH ×3 (06:19→22:48)
--- NOTE | 2018-04-03 09:01 | PN ---
Progress Note (short form) - Note Progress Note: Patient well known to me. I placed his right arm AVG on 01/23. His graft is working but he has developed steal syndrome which has failed to resolve with conservative management. He was scheduled for an elective right arm angiogram and DRIL procedure this week but was cancelled due to his hospitalization. We will schedule it once he is medically suitable for the procedure.
--- NOTE | 2018-04-03 09:07 | PN ---
Progress Note (short form) - Note Progress Note: Chief Complaint: Events noted, noted reviewed. Dyspnea persists but improved, denies any chest pain History of Present Illness: Seen and examined on telemetry. Events noted, noted reviewed. Dyspnea persists but improved, denies any chest pain - Current Medication List Current Medications Acetaminophen (Tylenol -) 650 mg PO Q4H PRN PRN Reason: PAIN LEVEL 1 - 3 Last Admin: 03/31/18 23:02 Dose: 650 mg Aspirin (Asa -) 81 mg PO DAILY [facility] Last Admin: 04/02/18 14:52 Dose: 81 mg Atorvastatin Calcium (Lipitor -) 20 mg PO HS [facility] Last Admin: 04/02/18 22:32 Dose: 20 mg Calcium Acetate (Phoslo -) 667 mg PO TIDCM [facility] Last Admin: 04/02/18 17:53 Dose: 667 mg Clopidogrel Bisulfate (Plavix -) 75 mg PO DAILY [facility] Last Admin: 04/02/18 14:52 Dose: 75 mg Docusate Sodium (Colace -) 100 mg PO TID [facility] Last Admin: 04/03/18 06:19 Dose: 100 mg Gabapentin (Neurontin -) 100 mg PO TID [facility] Last Admin: 04/03/18 06:19 Dose: 100 mg Heparin Sodium (Porcine) (Heparin -) 5,000 unit SQ BID [facility] Last Admin: 04/02/18 22:33 Dose: 5,000 unit Sodium Chloride (Normal Saline -) 250 mls @ 3,000 mls/hr IV PRN PRN PRN Reason: Hypotension during Dialysis Stop: 04/02/18 14:53 Insulin Aspart (Novolog Vial Sliding Scale -) 1 vial SQ [facility]; Protocol Last Admin: 04/03/18 06:19 Dose: Not Given Insulin Detemir (Levemir Vial) 10 units SQ [facility] Last Admin: 04/02/18 22:33 Dose: 10 unit Levothyroxine Sodium (Synthroid -) 25 mcg PO DAILY@0700 [facility] Last Admin: 04/03/18 06:19 Dose: 25 mcg Metoprolol Succinate (Toprol Xl -) 100 mg PO DAILY [facility] Last Admin: 04/02/18 14:52 Dose: 100 mg Multivitamins/Minerals/Vitamin C (Tab-A-Vit -) 1 tab PO DAILY [facility] Last Admin: 04/02/18 14:52 Dose: 1 tab Pantoprazole Sodium (Protonix -) 40 mg PO DAILY [facility] Last Admin: 04/02/18 14:52 Dose: 40 mg Sacubitril/Valsartan (Entresto 24 Mg-26 Mg Tablet) 1 tab PO BID [facility] Last Admin: 04/02/18 22:31 Dose: 1 tab Senna (Senna -) 1 tab PO [facility] Last Admin: 04/02/18 22:32 Dose: 1 tab Sertraline HCl (Zoloft -) 25 mg PO HS [facility] Last Admin: 04/02/18 22:32 Dose: 25 mg Tramadol HCl (Ultram -) 50 mg PO Q6H PRN PRN Reason: PAIN LEVEL 4 - 6 - Review of Systems Constitutional: denies: Chills, Fever Cardiovascular: As noted above Respiratory: reports: Cough with Sputum Production Gastrointestinal: denies: Nausea, Vomiting, Diarrhea, Constipation or Abdominal Pain Genitourinary: HD Neurological: denies: Dizziness or Headaches Endocrine: denies: Intolerance to Cold, Intolerance to Heat - Objective Vital Signs: Last Vital Signs Temp Pulse Resp BP Pulse Ox 98.3 F 81 18 139/57 99 04/03/18 09:06 04/03/18 09:06 04/03/18 09:06 04/03/18 09:06 04/02/18 21:00 Intake & Output 03/31/18 04/01/18 04/02/18 04/03/18 23:59 23:59 23:59 23:59 Intake Total 900 830 110 150 Balance 900 830 110 150 Weight 145 lb 8 oz 146 lb 146 lb 6 oz 144 lb 3 oz Constitutional: No Distress, Calm, Thin Neck: Supple Negative JVD Respiratory: diminished Breath Sounds at the Bases Bilaterally L>R Cardiovascular: S1 S2 Regular Rate and Rhythm Grade 1/6 systolic murmur Gastrointestinal: Soft Benign Normal Bowel Sounds Ext: Trace Edema Labs: CBC, BMP 03/31/18 08:15 03/31/18 08:15 Assessment/Plan ASSESSMENT: 1. Acute on chronic class II NYHA classification LV failure related to ischemic dilated cardiomyopathy/severe LV systolic dysfunction 2. CAD post remote [place] post CABG angina pectoris, stable 3. Post prophylactic ICD implant ([employer]'s device) 4. HTN 5. IDDM 6. Hypercholesterolemia 7. PAD with toe gangrene post peripheral intervention this week 8. Hypothyroidism 9. ESRD on HD 10. Anemia PLAN: 1. Continue Toprol XL 2. Continue Entresto and titrate dosage as tolerated and hemodynamics permitting 3. Continue ASA + Plavix 4. Continue Lipitor 5. HD as per renal service Jordon Lozoya M.D.
[2018-04-03] MEDS: CLOPIDOGREL BISULFATE 75 MG TABLET (FP) PO SCH (09:11)
[2018-04-03] MEDS: CALCIUM ACETATE 667 MG CAPSULE (FP) PO SCH ×3 (09:11→16:46)
[2018-04-03] MEDS: MULTIVITAMINS (DAILY MVI) TABLET (FP) PO SCH (09:11)
[2018-04-03] MEDS: PANTOPRAZOLE 40 MG TABLET (FP) PO SCH (09:11)
[2018-04-03] MEDS: ASPIRIN 81 MG CHEWABLE TABLETS PO SCH (09:11)
[2018-04-03] MEDS: traMADol HCL 50 MG TABLET PO PRN ×3 (09:12→22:46)
[2018-04-03] MEDS: SACUBITRIL/VALSARTAN 24 MG-26 MG TABLET PO SCH (09:12)
[2018-04-03] MEDS: HEPARIN NA (PORCINE) 5,000 UNITS/ML 1ML VIAL SQ SCH (09:44)
[2018-04-03] MEDS: SACUBITRIL/VALSARTAN 49 MG-51 MG TABLET PO SCH ×2 (11:05→22:48)
--- NOTE | 2018-04-03 15:07 | CONS ---
DATE OF CONSULTATION: 04/03/2018 TYPE OF CONSULTATION: Vascular Surgery REQUESTING PHYSICIAN: Cara Dove MD CHIEF COMPLAINT: Right arm arterial steal. HISTORY OF PRESENT ILLNESS: This is a 72-year-old man who is known to me. I placed his right arm AV graft in January. The AV graft is being used and is working well. However, he has developed steal syndrome of his right arm. He had been planned to do an angiogram and procedure this week. However, he is hospitalized here at [facility] for CHF exacerbation with shortness of breath and pleural effusions. His right hand pain, numbness, and mild weakness are unchanged from the last time I examined him. PAST MEDICAL HISTORY: Hypertension, COPD, coronary artery disease, CHF, pacemaker, PVD, diabetes, end-stage renal disease on hemodialysis. PAST SURGICAL HISTORY: Left leg angiogram with intervention with Dr. Nieves, a right arm AV graft by me. FAMILY HISTORY: Reviewed and noncontributory. SOCIAL HISTORY: Former smoker, lives at [facility]. ALLERGIES: None. MEDICATIONS: Reviewed. REVIEW OF SYSTEMS: A 12-point review of systems otherwise negative. PHYSICAL EXAMINATION: Vital Signs: Afebrile. Vital signs stable. General: No acute distress. HEENT: Normocephalic, atraumatic. Neck: Supple. Heart: S1, S2. Lungs: Decreased at the bases. Abdomen: Soft, nontender, nondistended. Extremities: Right upper extremity AV graft with good thrill. Fingers are slightly cool. Motor and sensation are unchanged from my prior examination. LABORATORY RESULTS: Reviewed. IMAGING STUDIES: Reviewed. ASSESSMENT AND PLAN: A 72-year-old man with right arm steal and is being scheduled for intervention, currently hospitalized with congestive heart failure exacerbation. We will plan to do procedure when stable. ALEXANDR GONZALEZ M.D. [id number]
--- NOTE | 2018-04-03 15:18 | PN ---
Progress Note, Physician Chief Complaint: no complaints except for weakness and numbness of right arm - Current Medication List Current Medications: Active Medications Acetaminophen (Tylenol -) 650 mg PO Q4H PRN PRN Reason: PAIN LEVEL 1 - 3 Last Admin: 03/31/18 23:02 Dose: 650 mg Aspirin (Asa -) 81 mg PO DAILY [facility] Last Admin: 04/03/18 09:11 Dose: 81 mg Atorvastatin Calcium (Lipitor -) 20 mg PO HS [facility] Last Admin: 04/02/18 22:32 Dose: 20 mg Calcium Acetate (Phoslo -) 667 mg PO TIDCM [facility] Last Admin: 04/03/18 11:45 Dose: 667 mg Clopidogrel Bisulfate (Plavix -) 75 mg PO DAILY [facility] Last Admin: 04/03/18 09:11 Dose: 75 mg Docusate Sodium (Colace -) 100 mg PO TID [facility] Last Admin: 04/03/18 14:39 Dose: 100 mg Gabapentin (Neurontin -) 100 mg PO TID [facility] Last Admin: 04/03/18 14:39 Dose: 100 mg Heparin Sodium (Porcine) (Heparin -) 5,000 unit SQ BID [facility] Last Admin: 04/03/18 09:44 Dose: 5,000 unit Sodium Chloride (Normal Saline -) 250 mls @ 3,000 mls/hr IV PRN PRN PRN Reason: Hypotension during Dialysis Stop: 04/02/18 14:53 Insulin Aspart (Novolog Vial Sliding Scale -) 1 vial SQ [facility]; Protocol Last Admin: 04/03/18 11:46 Dose: 2 units Insulin Detemir (Levemir Vial) 10 units SQ [facility] Last Admin: 04/02/18 22:33 Dose: 10 unit Levothyroxine Sodium (Synthroid -) 25 mcg PO DAILY@0700 [facility] Last Admin: 04/03/18 06:19 Dose: 25 mcg Metoprolol Succinate (Toprol Xl -) 100 mg PO DAILY [facility] Last Admin: 04/03/18 09:12 Dose: 100 mg Multivitamins/Minerals/Vitamin C (Tab-A-Vit -) 1 tab PO DAILY [facility] Last Admin: 04/03/18 09:11 Dose: 1 tab Pantoprazole Sodium (Protonix -) 40 mg PO DAILY [facility] Last Admin: 04/03/18 09:11 Dose: 40 mg Sacubitril/Valsartan (Entresto 49 Mg-51 Mg Tablet) 1 tab PO BID [facility] Last Admin: 04/03/18 11:05 Dose: Not Given Senna (Senna -) 1 tab PO [facility] Last Admin: 04/02/18 22:32 Dose: 1 tab Sertraline HCl (Zoloft -) 25 mg PO [facility] Last Admin: 04/02/18 22:32 Dose: 25 mg Tramadol HCl (Ultram -) 50 mg PO Q6H PRN PRN Reason: PAIN LEVEL 4 - 6 Last Admin: 04/03/18 09:12 Dose: 50 mg - Objective Vital Signs: Vital Signs Temperature 98.3 F 04/03/18 09:06 Pulse Rate 81 04/03/18 09:06 Respiratory Rate 18 04/03/18 09:06 Blood Pressure 139/57 04/03/18 09:06 O2 Sat by Pulse Oximetry (%) 99 04/03/18 10:00 Constitutional: Yes: No Distress, Calm Cardiovascular: Yes: Regular Rate and Rhythm Respiratory: Yes: Diminished Gastrointestinal: Yes: Normal Bowel Sounds, Soft. No: Tenderness Edema: No Labs: CBC, BMP 03/31/18 08:15 03/31/18 08:15 INR, PTT INR 1.11 (0.82-1.09) 03/27/18 12:06 Problem List - Problems (1) CHF (congestive heart failure), NYHA class IV Code(s): I50.9 - HEART FAILURE, UNSPECIFIED Qualifiers: Congestive heart failure type: combined Congestive heart failure chronicity : acute on chronic Qualified Code(s): I50.43 - Acute on chronic combined systolic (congestive) and diastolic (congestive) heart failure (2) Hypothyroidism Code(s): E03.9 - HYPOTHYROIDISM, UNSPECIFIED (3) ASHD (arteriosclerotic heart disease) Code(s): I25.10 - ATHSCL HEART DISEASE OF [place] CORONARY ARTERY W/O ANG PCTRS (4) Diabetes Code(s): E11.9 - TYPE 2 DIABETES MELLITUS WITHOUT COMPLICATIONS Qualifiers: Diabetes mellitus type: type 2 Diabetes mellitus intermodal customer service insulin use: without intermodal customer service use Diabetes mellitus complication status: with neurologic complications (5) ESRD (end stage renal disease) Code(s): N18.6 - END STAGE RENAL DISEASE Assessment/Plan PLAN clinically improving dialysis per renal advised fluid restriction continue with meds Vascular eval noted for gangrene big toe and right arm weakness Noted DR Richard's consult-- pt is medically optimized for right arm angiogram
[2018-04-03] MEDS ORDERED: SODIUM CHLORIDE 250 ML IV PRN (15:44)
--- NOTE | 2018-04-03 15:44 | PN ---
Progress Note, Physician History of Present Illness: Pt seen and examined at bedside. He is awake and alert. He last dialyzed yesterday. - Current Medication List Current Medications: Active Medications Acetaminophen (Tylenol -) 650 mg PO Q4H PRN PRN Reason: PAIN LEVEL 1 - 3 Last Admin: 03/31/18 23:02 Dose: 650 mg Aspirin (Asa -) 81 mg PO DAILY [facility] Last Admin: 04/03/18 09:11 Dose: 81 mg Atorvastatin Calcium (Lipitor -) 20 mg PO HS [facility] Last Admin: 04/02/18 22:32 Dose: 20 mg Calcium Acetate (Phoslo -) 667 mg PO TIDCM [facility] Last Admin: 04/03/18 11:45 Dose: 667 mg Clopidogrel Bisulfate (Plavix -) 75 mg PO DAILY [facility] Last Admin: 04/03/18 09:11 Dose: 75 mg Docusate Sodium (Colace -) 100 mg PO TID [facility] Last Admin: 04/03/18 14:39 Dose: 100 mg Gabapentin (Neurontin -) 100 mg PO TID [facility] Last Admin: 04/03/18 14:39 Dose: 100 mg Heparin Sodium (Porcine) (Heparin -) 5,000 unit SQ BID [facility] Last Admin: 04/03/18 09:44 Dose: 5,000 unit Sodium Chloride (Normal Saline -) 250 mls @ 3,000 mls/hr IV PRN PRN PRN Reason: Hypotension during Dialysis Stop: 04/02/18 14:53 Insulin Aspart (Novolog Vial Sliding Scale -) 1 vial SQ [facility]; Protocol Last Admin: 04/03/18 11:46 Dose: 2 units Insulin Detemir (Levemir Vial) 10 units SQ [facility] Last Admin: 04/02/18 22:33 Dose: 10 unit Levothyroxine Sodium (Synthroid -) 25 mcg PO DAILY@0700 [facility] Last Admin: 04/03/18 06:19 Dose: 25 mcg Metoprolol Succinate (Toprol Xl -) 100 mg PO DAILY [facility] Last Admin: 04/03/18 09:12 Dose: 100 mg Multivitamins/Minerals/Vitamin C (Tab-A-Vit -) 1 tab PO DAILY [facility] Last Admin: 04/03/18 09:11 Dose: 1 tab Pantoprazole Sodium (Protonix -) 40 mg PO DAILY [facility] Last Admin: 04/03/18 09:11 Dose: 40 mg Sacubitril/Valsartan (Entresto 49 Mg-51 Mg Tablet) 1 tab PO BID [facility] Last Admin: 04/03/18 11:05 Dose: Not Given Senna (Senna -) 1 tab PO HS [facility] Last Admin: 04/02/18 22:32 Dose: 1 tab Sertraline HCl (Zoloft -) 25 mg PO [facility] Last Admin: 04/02/18 22:32 Dose: 25 mg Tramadol HCl (Ultram -) 50 mg PO Q6H PRN PRN Reason: PAIN LEVEL 4 - 6 Last Admin: 04/03/18 09:12 Dose: 50 mg - Objective Vital Signs: Vital Signs Temperature 98.3 F 04/03/18 09:06 Pulse Rate 81 04/03/18 09:06 Respiratory Rate 18 04/03/18 09:06 Blood Pressure 139/57 04/03/18 09:06 O2 Sat by Pulse Oximetry (%) 99 04/03/18 10:00 Constitutional: Yes: Calm Eyes: Yes: Conjunctiva Clear HENT: Yes: Atraumatic Neck: Yes: Supple Cardiovascular: Yes: S1, S2 Respiratory: Yes: CTA Bilaterally Gastrointestinal: Yes: Soft Genitourinary: Yes: WNL Musculoskeletal: Yes: WNL Extremities: Yes: Other (access with thrill and bruit) Integumentary: Yes: WNL Neurological: Yes: Oriented Psychiatric: Yes: Oriented Labs: CBC, BMP 03/31/18 08:15 03/31/18 08:15 INR, PTT INR 1.11 (0.82-1.09) 03/27/18 12:06 Problem List - Problems (1) Anemia Code(s): D64.9 - ANEMIA, UNSPECIFIED Qualifiers: Anemia type: due to chronic kidney disease (2) CHF (congestive heart failure), NYHA class IV Code(s): I50.9 - HEART FAILURE, UNSPECIFIED Qualifiers: Congestive heart failure type: combined Congestive heart failure chronicity : acute on chronic Qualified Code(s): I50.43 - Acute on chronic combined systolic (congestive) and diastolic (congestive) heart failure (3) ESRD (end stage renal disease) Code(s): N18.6 - END STAGE RENAL DISEASE Assessment/Plan Current Medications Generic Name Dose Route Start Last Admin Trade Name Freq PRN Reason Stop Dose Admin Acetaminophen 650 mg 03/27/18 20:22 03/31/18 23:02 Tylenol - PO 650 mg Q4H PRN Administration PAIN LEVEL 1 - 3 Aspirin 81 mg 03/28/18 10:00 04/03/18 09:11 Asa - PO 81 mg DAILY [facility] Administration Atorvastatin Calcium 20 mg 03/28/18 10:46 04/02/18 22:32 Lipitor - PO 20 mg HS [facility] Administration Calcium Acetate 667 mg 03/27/18 20:45 04/03/18 11:45 Phoslo - PO 667 mg TIDCM [facility] Administration Clopidogrel Bisulfate 75 mg 03/28/18 10:00 04/03/18 09:11 Plavix - PO 75 mg DAILY [facility] Administration Docusate Sodium 100 mg 03/28/18 14:00 04/03/18 14:39 Colace - PO 100 mg TID [facility] Administration Gabapentin 100 mg 03/30/18 14:00 04/03/18 14:39 Neurontin - PO 100 mg TID [facility] Administration Heparin Sodium (Porcine) 5,000 unit 03/27/18 22:00 04/03/18 09:44 Heparin - SQ 5,000 unit BID [facility] Administration Sodium Chloride 250 mls @ 3,000 mls/hr 04/01/18 14:53 Normal Saline - IV 04/02/18 14:53 PRN PRN Hypotension during Dialysis Insulin Aspart 1 vial 03/27/18 22:00 04/03/18 11:46 Novolog Vial Sliding Scale - SQ 2 units ACHS [facility] Administration Protocol Insulin Detemir 10 units 03/28/18 11:42 04/02/18 22:33 Levemir Vial SQ 10 unit HS [facility] Administration Levothyroxine Sodium 25 mcg 03/28/18 07:00 04/03/18 06:19 Synthroid - PO 25 mcg DAILY@0700 [facility] Administration Metoprolol Succinate 100 mg 03/28/18 10:00 04/03/18 09:12 Toprol Xl - PO 100 mg DAILY [facility] Administration Multivitamins/Minerals/Vitamin C 1 tab 03/28/18 10:00 04/03/18 09:11 Tab-A-Vit - PO 1 tab DAILY [facility] Administration Pantoprazole Sodium 40 mg 03/28/18 10:00 04/03/18 09:11 Protonix - PO 40 mg DAILY [facility] Administration Sacubitril/Valsartan 1 tab 04/03/18 10:00 04/03/18 11:05 Entresto 49 Mg-51 Mg Tablet PO Not Given BID [facility] Senna 1 tab 03/27/18 22:00 04/02/18 22:32 Senna - PO 1 tab HS [facility] Administration Sertraline HCl 25 mg 03/27/18 22:00 04/02/18 22:32 Zoloft - PO 25 mg HS [facility] Administration Tramadol HCl 50 mg 04/02/18 13:55 04/03/18 09:12 Ultram - PO 50 mg Q6H PRN Administration PAIN LEVEL 4 - 6 Impression 1. ESRD 2. fluid overload 3. DM 4. CAD 5. PVD 6. DFU 7. anemia 8. steal syndrome Plan - will arrange for HD in am - vascular input appreciated - discussed compliance with fluid intake - restrict fluid and cont renal diet - monitor pulse ox - monitor weights Dr Dove
[2018-04-03] MEDS ORDERED: PT OWN MED DRAWER 7, Y5N ONE ×2 (17:40→21:44)
[2018-04-03] MEDS: SERTRALINE HCL 50 MG TABLET (FP) PO SCH (22:47)
[2018-04-03] MEDS: SENNOSIDES 8.6MG TABLET (FP) PO SCH (22:48)
[2018-04-03] MEDS: INSULIN (LEVEMIR) 100 UNITS/ML UNITS SQ SCH (22:48)
[2018-04-03] MEDS: ATORVASTATIN CA 20 MG TABLET (FP) PO SCH (22:48)
[2018-04-04] MEDS: DOCUSATE SODIUM 100 MG CAPSULE (FP) PO SCH ×3 (05:50→21:27)
[2018-04-04] MEDS: GABAPENTIN 100 MG CAPSULE (FP) PO SCH ×3 (05:50→21:28)
[2018-04-04] MEDS: LEVOTHYROXINE NA 25 MCG TABLET (FP) PO SCH (06:36)
[2018-04-04] MEDS: CALCIUM ACETATE 667 MG CAPSULE (FP) PO SCH ×3 (08:00→18:09)
[2018-04-04] MEDS: INSULIN SLIDING SCALE (NOVOLOG) 1 VIAL SQ SCH ×4 (08:00→21:29)
--- NOTE | 2018-04-04 11:07 | PN ---
Progress Note, Physician History of Present Illness: Dyspnea improving after ultrafiltration. Denies chest pain, right hand discomfort and parasthesias from RUE AVG steal syndrome, vascular input appreciated. - Current Medication List Current Medications: Active Medications Acetaminophen (Tylenol -) 650 mg PO Q4H PRN PRN Reason: PAIN LEVEL 1 - 3 Last Admin: 03/31/18 23:02 Dose: 650 mg Aspirin (Asa -) 81 mg PO DAILY [facility] Last Admin: 04/03/18 09:11 Dose: 81 mg Atorvastatin Calcium (Lipitor -) 20 mg PO [facility] Last Admin: 04/03/18 22:48 Dose: 20 mg Calcium Acetate (Phoslo -) 667 mg PO TIDCM [facility] Last Admin: 04/03/18 16:46 Dose: 667 mg Clopidogrel Bisulfate (Plavix -) 75 mg PO DAILY [facility] Last Admin: 04/03/18 09:11 Dose: 75 mg Docusate Sodium (Colace -) 100 mg PO TID [facility] Last Admin: 04/04/18 05:50 Dose: 100 mg Epoetin Parmjit (Epogen -) 4,000 unit IVPUSH ONCE ONE Stop: 04/04/18 15:45 Gabapentin (Neurontin -) 100 mg PO TID [facility] Last Admin: 04/04/18 05:50 Dose: 100 mg Sodium Chloride (Normal Saline -) 250 mls @ 3,000 mls/hr IV PRN PRN PRN Reason: Hypotension during Dialysis Stop: 04/02/18 14:53 Sodium Chloride (Normal Saline -) 250 mls @ 3,000 mls/hr IV PRN PRN PRN Reason: Hypotension during Dialysis Stop: 04/04/18 15:44 Insulin Aspart (Novolog Vial Sliding Scale -) 1 vial SQ [facility]; Protocol Last Admin: 04/03/18 22:46 Dose: 2 units Insulin Detemir (Levemir Vial) 10 units SQ [facility] Last Admin: 04/03/18 22:48 Dose: 10 unit Levothyroxine Sodium (Synthroid -) 25 mcg PO DAILY@0700 [facility] Last Admin: 04/04/18 06:36 Dose: 25 mcg Metoprolol Succinate (Toprol Xl -) 100 mg PO DAILY [facility] Last Admin: 04/03/18 09:12 Dose: 100 mg Multivitamins/Minerals/Vitamin C (Tab-A-Vit -) 1 tab PO DAILY [facility] Last Admin: 04/03/18 09:11 Dose: 1 tab Pantoprazole Sodium (Protonix -) 40 mg PO DAILY [facility] Last Admin: 04/03/18 09:11 Dose: 40 mg Sacubitril/Valsartan (Entresto 49 Mg-51 Mg Tablet) 1 tab PO BID [facility] Last Admin: 04/03/18 22:48 Dose: 1 tab Senna (Senna -) 1 tab PO [facility] Last Admin: 04/03/18 22:48 Dose: 1 tab Sertraline HCl (Zoloft -) 25 mg PO HS [facility] Last Admin: 04/03/18 22:47 Dose: 25 mg Tramadol HCl (Ultram -) 50 mg PO Q6H PRN PRN Reason: PAIN LEVEL 4 - 6 Last Admin: 04/03/18 22:46 Dose: 50 mg - Objective Vital Signs: Vital Signs Temperature 98 F 04/04/18 09:26 Pulse Rate 80 04/04/18 09:26 Respiratory Rate 20 04/04/18 09:26 Blood Pressure 136/66 04/04/18 09:26 O2 Sat by Pulse Oximetry (%) 96 04/03/18 21:00 Constitutional: Yes: No Distress, Calm, Thin Neck: Yes: Supple Cardiovascular: Yes: Regular Rate and Rhythm Respiratory: Yes: Regular, Diminished Gastrointestinal: Yes: Normal Bowel Sounds, Soft Edema: No Labs: CBC, BMP 03/31/18 08:15 03/31/18 08:15 INR, PTT INR 1.11 (0.82-1.09) 03/27/18 12:06 Problem List - Problems (1) CHF (congestive heart failure), NYHA class IV Code(s): I50.9 - HEART FAILURE, UNSPECIFIED Qualifiers: Congestive heart failure type: combined Congestive heart failure chronicity : acute on chronic Qualified Code(s): I50.43 - Acute on chronic combined systolic (congestive) and diastolic (congestive) heart failure (2) ASHD (arteriosclerotic heart disease) Code(s): I25.10 - ATHSCL HEART DISEASE OF [place] CORONARY ARTERY W/O ANG PCTRS (3) Diabetes Code(s): E11.9 - TYPE 2 DIABETES MELLITUS WITHOUT COMPLICATIONS Qualifiers: Diabetes mellitus type: type 2 Diabetes 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 insulin use: without grain oilseed or pasture grower use Diabetes mellitus complication status: with neurologic complications (4) ESRD (end stage renal disease) Code(s): N18.6 - END STAGE RENAL DISEASE (5) Gangrene Code(s): I96 - GANGRENE, NOT ELSEWHERE CLASSIFIED (6) HTN (hypertension) Code(s): I10 - ESSENTIAL (PRIMARY) HYPERTENSION Qualifiers: Hypertension type: essential hypertension Qualified Code(s): I10 - Essential (primary) hypertension (7) ICD (implantable cardioverter-defibrillator) in place Code(s): Z95.810 - PRESENCE OF AUTOMATIC (IMPLANTABLE) CARDIAC DEFIBRILLATOR (8) PVD (peripheral vascular disease) Code(s): I73.9 - PERIPHERAL VASCULAR DISEASE, UNSPECIFIED (9) Pleural effusion Code(s): J90 - PLEURAL EFFUSION, NOT ELSEWHERE CLASSIFIED (10) S/P CABG (coronary artery bypass graft) Code(s): Z95.1 - PRESENCE OF AORTOCORONARY BYPASS GRAFT (11) S/P peripheral artery angioplasty with stent placement Code(s): Z95.820 - PERIPHERAL VASCULAR ANGIOPLASTY STATUS W IMPLANTS AND GRAFTS (12) Hypothyroidism Code(s): E03.9 - HYPOTHYROIDISM, UNSPECIFIED (13) Anemia Code(s): D64.9 - ANEMIA, UNSPECIFIED Qualifiers: Anemia type: due to chronic kidney disease (14) Dyspnea Code(s): R06.00 - DYSPNEA, UNSPECIFIED Qualifiers: Dyspnea type: dyspnea on exertion Qualified Code(s): R06.09 - Other forms of dyspnea (15) Steal syndrome of dialysis vascular access Code(s): T82.898A - OTH COMPLICATION OF VASCULAR PROSTH DEV/GRFT, INIT Qualifiers: Encounter type: subsequent encounter Qualified Code(s): T82.898D - Other specified complication of vascular prosthetic devices, implants and grafts, subsequent encounter Assessment/Plan 03/01/2018 Echo: Normal LV size with severely decreased LV fxn, mild TR, tr MR, pleural efusion 1. Acute on Chronic Systolic Heart Failure referable to ischemic dilated cardiomyopathy/severe LV systolic dysfunction with left effusion improving 2. CAD post remote OR post CABG angina pectoris, stable 3. Post prophylactic ICD implant ([employer]'s device) 4. HTN 5. IDDM 6. Hypercholesterolemia 7. PAD with left toe gangrene s/p aortogram, LLE angiogram, SFA atherectomy, DCB SFA angioplasty, with sfa stent 8. ESRD on HD, right AVG with steal 9. Anemia of CKD 10. Hypothyroidism PLAN: 1. Volume removal via UF/HD, adjust Synthroid dose per TSH 2. Continue Toprol XL 100 qd 3. Continie Entresto 49/51 bid and uptitrate dosage as tolerated and hemodynamics permitting 4. Continue ASA 81 qd and Plavix 75 qd 5. Decreased Lipitor 20 qhs (03/01/2018 LDL 31) 6. DVT and GI prophylaxis, encourage ambulation 7. Elective right arm angiogram and DRIL procedure, may proceed from CV- standpoint
[2018-04-04 12:03] VITALS: BMI 21.8
--- NOTE | 2018-04-04 12:27 | PN ---
Progress Note, Physician History of Present Illness: Pt seen and examined at bedside. He is awake and alert. He is back on oxygen. - Current Medication List Current Medications: Active Medications Acetaminophen (Tylenol -) 650 mg PO Q4H PRN PRN Reason: PAIN LEVEL 1 - 3 Last Admin: 03/31/18 23:02 Dose: 650 mg Aspirin (Asa -) 81 mg PO DAILY [facility] Last Admin: 04/03/18 09:11 Dose: 81 mg Atorvastatin Calcium (Lipitor -) 20 mg PO [facility] Last Admin: 04/03/18 22:48 Dose: 20 mg Calcium Acetate (Phoslo -) 667 mg PO TIDCM [facility] Last Admin: 04/03/18 16:46 Dose: 667 mg Clopidogrel Bisulfate (Plavix -) 75 mg PO DAILY [facility] Last Admin: 04/03/18 09:11 Dose: 75 mg Docusate Sodium (Colace -) 100 mg PO TID [facility] Last Admin: 04/04/18 05:50 Dose: 100 mg Epoetin Parmjit (Epogen -) 4,000 unit IVPUSH ONCE ONE Stop: 04/04/18 15:45 Gabapentin (Neurontin -) 100 mg PO TID [facility] Last Admin: 04/04/18 05:50 Dose: 100 mg Sodium Chloride (Normal Saline -) 250 mls @ 3,000 mls/hr IV PRN PRN PRN Reason: Hypotension during Dialysis Stop: 04/02/18 14:53 Sodium Chloride (Normal Saline -) 250 mls @ 3,000 mls/hr IV PRN PRN PRN Reason: Hypotension during Dialysis Stop: 04/04/18 15:44 Insulin Aspart (Novolog Vial Sliding Scale -) 1 vial SQ [facility]; Protocol Last Admin: 04/03/18 22:46 Dose: 2 units Insulin Detemir (Levemir Vial) 10 units SQ [facility] Last Admin: 04/03/18 22:48 Dose: 10 unit Levothyroxine Sodium (Synthroid -) 25 mcg PO DAILY@0700 [facility] Last Admin: 04/04/18 06:36 Dose: 25 mcg Metoprolol Succinate (Toprol Xl -) 100 mg PO DAILY [facility] Last Admin: 04/03/18 09:12 Dose: 100 mg Multivitamins/Minerals/Vitamin C (Tab-A-Vit -) 1 tab PO DAILY [facility] Last Admin: 04/03/18 09:11 Dose: 1 tab Pantoprazole Sodium (Protonix -) 40 mg PO DAILY [facility] Last Admin: 04/03/18 09:11 Dose: 40 mg Sacubitril/Valsartan (Entresto 49 Mg-51 Mg Tablet) 1 tab PO BID [facility] Last Admin: 04/03/18 22:48 Dose: 1 tab Senna (Senna -) 1 tab PO HS [facility] Last Admin: 04/03/18 22:48 Dose: 1 tab Sertraline HCl (Zoloft -) 25 mg PO HS [facility] Last Admin: 04/03/18 22:47 Dose: 25 mg Tramadol HCl (Ultram -) 50 mg PO Q6H PRN PRN Reason: PAIN LEVEL 4 - 6 Last Admin: 04/03/18 22:46 Dose: 50 mg - Objective Vital Signs: Vital Signs Temperature 98 F 04/04/18 09:26 Pulse Rate 80 04/04/18 09:26 Respiratory Rate 20 04/04/18 09:26 Blood Pressure 136/66 04/04/18 09:26 O2 Sat by Pulse Oximetry (%) 96 04/03/18 21:00 Constitutional: Yes: Calm Eyes: Yes: Conjunctiva Clear HENT: Yes: Atraumatic Cardiovascular: Yes: S1, S2 Respiratory: Yes: CTA Bilaterally, On Nasal O2 Gastrointestinal: Yes: Normal Bowel Sounds, Soft Genitourinary: Yes: WNL Musculoskeletal: Yes: WNL Edema: No Neurological: Yes: Oriented Psychiatric: Yes: Oriented Labs: CBC, BMP 03/31/18 08:15 03/31/18 08:15 INR, PTT INR 1.11 (0.82-1.09) 03/27/18 12:06 Problem List - Problems (1) Anemia Code(s): D64.9 - ANEMIA, UNSPECIFIED Qualifiers: Anemia type: due to chronic kidney disease (2) CHF (congestive heart failure), NYHA class IV Code(s): I50.9 - HEART FAILURE, UNSPECIFIED Qualifiers: Congestive heart failure type: combined Congestive heart failure chronicity : acute on chronic Qualified Code(s): I50.43 - Acute on chronic combined systolic (congestive) and diastolic (congestive) heart failure (3) ESRD (end stage renal disease) Code(s): N18.6 - END STAGE RENAL DISEASE Assessment/Plan Current Medications Generic Name Dose Route Start Last Admin Trade Name Andrésq PRN Reason Stop Dose Admin Acetaminophen 650 mg 03/27/18 20:22 03/31/18 23:02 Tylenol - PO 650 mg Q4H PRN Administration PAIN LEVEL 1 - 3 Aspirin 81 mg 03/28/18 10:00 04/03/18 09:11 Asa - PO 81 mg DAILY [facility] Administration Atorvastatin Calcium 20 mg 03/28/18 10:46 04/03/18 22:48 Lipitor - PO 20 mg HS [facility] Administration Calcium Acetate 667 mg 03/27/18 20:45 04/03/18 16:46 Phoslo - PO 667 mg TIDCM [facility] Administration Clopidogrel Bisulfate 75 mg 03/28/18 10:00 04/03/18 09:11 Plavix - PO 75 mg DAILY [facility] Administration Docusate Sodium 100 mg 03/28/18 14:00 04/04/18 05:50 Colace - PO 100 mg TID [facility] Administration Epoetin Parmjit 4,000 unit 04/04/18 15:44 Epogen - IVPUSH 04/04/18 15:45 ONCE ONE Gabapentin 100 mg 03/30/18 14:00 04/04/18 05:50 Neurontin - PO 100 mg TID [facility] Administration Sodium Chloride 250 mls @ 3,000 mls/hr 04/01/18 14:53 Normal Saline - IV 04/02/18 14:53 PRN PRN Hypotension during Dialysis Sodium Chloride 250 mls @ 3,000 mls/hr 04/03/18 15:44 Normal Saline - IV 04/04/18 15:44 PRN PRN Hypotension during Dialysis Insulin Aspart 1 vial 03/27/18 22:00 04/03/18 22:46 Novolog Vial Sliding Scale - SQ 2 units ACHS [facility] Administration Protocol Insulin Detemir 10 units 03/28/18 11:42 04/03/18 22:48 Levemir Vial SQ 10 unit HS [facility] Administration Levothyroxine Sodium 25 mcg 03/28/18 07:00 04/04/18 06:36 Synthroid - PO 25 mcg DAILY@0700 [facility] Administration Metoprolol Succinate 100 mg 03/28/18 10:00 04/03/18 09:12 Toprol Xl - PO 100 mg DAILY [facility] Administration Multivitamins/Minerals/Vitamin C 1 tab 03/28/18 10:00 04/03/18 09:11 Tab-A-Vit - PO 1 tab DAILY [facility] Administration Pantoprazole Sodium 40 mg 03/28/18 10:00 04/03/18 09:11 Protonix - PO 40 mg DAILY [facility] Administration Sacubitril/Valsartan 1 tab 04/03/18 10:00 04/03/18 22:48 Entresto 49 Mg-51 Mg Tablet PO 1 tab BID [facility] Administration Senna 1 tab 03/27/18 22:00 04/03/18 22:48 Senna - PO 1 tab HS [facility] Administration Sertraline HCl 25 mg 03/27/18 22:00 04/03/18 22:47 Zoloft - PO 25 mg HS [facility] Administration Tramadol HCl 50 mg 04/02/18 13:55 04/03/18 22:46 Ultram - PO 50 mg Q6H PRN Administration PAIN LEVEL 4 - 6 Selected Entries 04/03/18 04/04/18 06:00 05:53 Weight 144 lb 3 oz 148 lb 6 oz Impression 1. ESRD 2. fluid overload 3. DM 4. CAD 5. PVD 6. DFU 7. anemia 8. steal syndrome Plan - HD today - vascular follow up - discussed compliance with fluid intake - restrict fluid and cont renal diet - monitor pulse ox - monitor weights Dr Dove
[2018-04-04 12:59] LABS: ANION GAP 8 (8-16); BLOOD UREA NITROGEN 55 mg/dL (7-18); CALCIUM 8.4 mg/dL (8.5-10.1); CHLORIDE 102 mmol/L (98-107); CO2 30 mmol/L (21-32); CREATININE 5.5 mg/dL (0.7-1.3); GLUCOSE,RANDOM 190 mg/dL (74-106); POTASSIUM 5.3 mmol/L (3.5-5.1); SODIUM 140 mmol/L (136-145)
[2018-04-04 14:03] LABS: HEMOGLOBIN 9.9 GM/dL (11.7-16.9); MCH 30.1 pg (25.7-33.7); MCHC 32.9 g/dl (32.0-35.9); MEAN CELL VOLUME 91.3 fl (80-96); MEAN PLT VOLUME 9.7 fl (7.5-11.1); PLATELET COUNT 177 K/MM3 (134-434); RBC 3.28 M/mm3 (4.00-5.60); RDW 21.2 % (11.9-15.9); WHITE BLOOD COUNT 8.4 K/mm3 (4.0-10.0)
[2018-04-04] MEDS ORDERED: EPOETIN ALFA 2,000 UNIT/1 ML VIAL IVPUSH ONE (14:15)
--- NOTE | 2018-04-04 14:52 | PN ---
Progress Note, Physician Chief Complaint: pt examined in HD no complaints except for weakness and numbness of right arm - Current Medication List Current Medications: Active Medications Acetaminophen (Tylenol -) 650 mg PO Q4H PRN PRN Reason: PAIN LEVEL 1 - 3 Last Admin: 03/31/18 23:02 Dose: 650 mg Aspirin (Asa -) 81 mg PO DAILY [facility] Last Admin: 04/03/18 09:11 Dose: 81 mg Atorvastatin Calcium (Lipitor -) 20 mg PO [facility] Last Admin: 04/03/18 22:48 Dose: 20 mg Calcium Acetate (Phoslo -) 667 mg PO TIDCM [facility] Last Admin: 04/03/18 16:46 Dose: 667 mg Clopidogrel Bisulfate (Plavix -) 75 mg PO DAILY [facility] Last Admin: 04/03/18 09:11 Dose: 75 mg Docusate Sodium (Colace -) 100 mg PO TID [facility] Last Admin: 04/04/18 05:50 Dose: 100 mg Gabapentin (Neurontin -) 100 mg PO TID [facility] Last Admin: 04/04/18 05:50 Dose: 100 mg Sodium Chloride (Normal Saline -) 250 mls @ 3,000 mls/hr IV PRN PRN PRN Reason: Hypotension during Dialysis Stop: 04/04/18 15:44 Insulin Aspart (Novolog Vial Sliding Scale -) 1 vial SQ [facility]; Protocol Last Admin: 04/03/18 22:46 Dose: 2 units Insulin Detemir (Levemir Vial) 10 units SQ [facility] Last Admin: 04/03/18 22:48 Dose: 10 unit Levothyroxine Sodium (Synthroid -) 25 mcg PO DAILY@0700 [facility] Last Admin: 04/04/18 06:36 Dose: 25 mcg Metoprolol Succinate (Toprol Xl -) 100 mg PO DAILY [facility] Last Admin: 04/03/18 09:12 Dose: 100 mg Multivitamins/Minerals/Vitamin C (Tab-A-Vit -) 1 tab PO DAILY [facility] Last Admin: 04/03/18 09:11 Dose: 1 tab Pantoprazole Sodium (Protonix -) 40 mg PO DAILY [facility] Last Admin: 04/03/18 09:11 Dose: 40 mg Sacubitril/Valsartan (Entresto 49 Mg-51 Mg Tablet) 1 tab PO BID [facility] Last Admin: 04/03/18 22:48 Dose: 1 tab Senna (Senna -) 1 tab PO [facility] Last Admin: 04/03/18 22:48 Dose: 1 tab Sertraline HCl (Zoloft -) 25 mg PO [facility] Last Admin: 04/03/18 22:47 Dose: 25 mg Tramadol HCl (Ultram -) 50 mg PO Q6H PRN PRN Reason: PAIN LEVEL 4 - 6 Last Admin: 04/03/18 22:46 Dose: 50 mg - Objective Vital Signs: Vital Signs Temperature 98 F 04/04/18 09:26 Pulse Rate 81 04/04/18 14:15 Respiratory Rate 18 04/04/18 14:15 Blood Pressure 134/66 04/04/18 14:15 O2 Sat by Pulse Oximetry (%) 96 04/03/18 21:00 Constitutional: Yes: No Distress, Calm Cardiovascular: Yes: Regular Rate and Rhythm Respiratory: Yes: Diminished Gastrointestinal: Yes: Normal Bowel Sounds, Soft. No: Palpable Mass, Tenderness Edema: No Labs: CBC, BMP 04/04/18 12:00 04/04/18 12:00 INR, PTT INR 1.11 (0.82-1.09) 03/27/18 12:06 Problem List - Problems (1) CHF (congestive heart failure), NYHA class IV Code(s): I50.9 - HEART FAILURE, UNSPECIFIED Qualifiers: Congestive heart failure type: combined Congestive heart failure chronicity : acute on chronic Qualified Code(s): I50.43 - Acute on chronic combined systolic (congestive) and diastolic (congestive) heart failure (2) Hypothyroidism Code(s): E03.9 - HYPOTHYROIDISM, UNSPECIFIED (3) ASHD (arteriosclerotic heart disease) Code(s): I25.10 - ATHSCL HEART DISEASE OF [place] CORONARY ARTERY W/O ANG PCTRS (4) Diabetes Code(s): E11.9 - TYPE 2 DIABETES MELLITUS WITHOUT COMPLICATIONS Qualifiers: Diabetes mellitus type: type 2 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
[2018-04-04] MEDS: PANTOPRAZOLE 40 MG TABLET (FP) PO SCH (18:07)
[2018-04-04] MEDS: SACUBITRIL/VALSARTAN 49 MG-51 MG TABLET PO SCH ×2 (18:08→21:27)
[2018-04-04] MEDS: MULTIVITAMINS (DAILY MVI) TABLET (FP) PO SCH (18:08)
[2018-04-04] MEDS: ASPIRIN 81 MG CHEWABLE TABLETS PO SCH (18:28)
[2018-04-04] MEDS: CLOPIDOGREL BISULFATE 75 MG TABLET (FP) PO SCH (18:28)
[2018-04-04] MEDS ORDERED: INSULIN (NOVOLOG) ASPART 100 UNITS/ML 10ML VIAL ONE (21:04)
[2018-04-04] MEDS ORDERED: PT OWN MED DRAWER 7, Y5N ONE (21:05)
[2018-04-04] MEDS: SENNOSIDES 8.6MG TABLET (FP) PO SCH (21:27)
[2018-04-04] MEDS: SERTRALINE HCL 50 MG TABLET (FP) PO SCH (21:27)
[2018-04-04] MEDS: traMADol HCL 50 MG TABLET PO PRN (21:27)
[2018-04-04] MEDS: ATORVASTATIN CA 20 MG TABLET (FP) PO SCH (21:28)
[2018-04-04] MEDS: INSULIN (LEVEMIR) 100 UNITS/ML UNITS SQ SCH (21:28)
[2018-04-05] MEDS: GABAPENTIN 100 MG CAPSULE (FP) PO SCH ×2 (06:09→14:31)
[2018-04-05] MEDS: DOCUSATE SODIUM 100 MG CAPSULE (FP) PO SCH ×2 (06:09→14:31)
[2018-04-05] MEDS: LEVOTHYROXINE NA 25 MCG TABLET (FP) PO SCH (06:09)
[2018-04-05] MEDS: INSULIN SLIDING SCALE (NOVOLOG) 1 VIAL SQ SCH ×3 (06:11→16:37)
[2018-04-05] MEDS: CALCIUM ACETATE 667 MG CAPSULE (FP) PO SCH ×3 (08:27→17:17)
[2018-04-05] MEDS: ASPIRIN 81 MG CHEWABLE TABLETS PO SCH (09:43)
[2018-04-05] MEDS: CLOPIDOGREL BISULFATE 75 MG TABLET (FP) PO SCH (09:43)
[2018-04-05] MEDS: PANTOPRAZOLE 40 MG TABLET (FP) PO SCH (09:43)
[2018-04-05] MEDS: SACUBITRIL/VALSARTAN 49 MG-51 MG TABLET PO SCH (09:43)
[2018-04-05] MEDS: MULTIVITAMINS (DAILY MVI) TABLET (FP) PO SCH (09:43)
--- NOTE | 2018-04-05 10:21 | PN ---
Progress Note, Physician History of Present Illness: Dyspnea improving after ultrafiltration. Denies chest pain, continued right hand discomfort and parasthesias from RUE AVG steal syndrome. - Current Medication List Current Medications: Active Medications Acetaminophen (Tylenol -) 650 mg PO Q4H PRN PRN Reason: PAIN LEVEL 1 - 3 Last Admin: 03/31/18 23:02 Dose: 650 mg Aspirin (Asa -) 81 mg PO DAILY [facility] Last Admin: 04/05/18 09:43 Dose: 81 mg Atorvastatin Calcium (Lipitor -) 20 mg PO [facility] Last Admin: 04/04/18 21:28 Dose: 20 mg Calcium Acetate (Phoslo -) 667 mg PO TIDCM [facility] Last Admin: 04/05/18 08:27 Dose: 667 mg Clopidogrel Bisulfate (Plavix -) 75 mg PO DAILY [facility] Last Admin: 04/05/18 09:43 Dose: 75 mg Docusate Sodium (Colace -) 100 mg PO TID [facility] Last Admin: 04/05/18 06:09 Dose: 100 mg Gabapentin (Neurontin -) 100 mg PO TID [facility] Last Admin: 04/05/18 06:09 Dose: 100 mg Insulin Aspart (Novolog Vial Sliding Scale -) 1 vial SQ [facility]; Protocol Last Admin: 04/05/18 06:11 Dose: Not Given Insulin Detemir (Levemir Vial) 10 units SQ [facility] Last Admin: 04/04/18 21:28 Dose: 10 unit Levothyroxine Sodium (Synthroid -) 25 mcg PO DAILY@0700 [facility] Last Admin: 04/05/18 06:09 Dose: 25 mcg Metoprolol Succinate (Toprol Xl -) 100 mg PO DAILY [facility] Last Admin: 04/05/18 09:43 Dose: 100 mg Multivitamins/Minerals/Vitamin C (Tab-A-Vit -) 1 tab PO DAILY [facility] Last Admin: 04/05/18 09:43 Dose: 1 tab Pantoprazole Sodium (Protonix -) 40 mg PO DAILY [facility] Last Admin: 04/05/18 09:43 Dose: 40 mg Sacubitril/Valsartan (Entresto 49 Mg-51 Mg Tablet) 1 tab PO BID [facility] Last Admin: 04/05/18 09:43 Dose: 1 tab Senna (Senna -) 1 tab PO [facility] Last Admin: 04/04/18 21:27 Dose: 1 tab Sertraline HCl (Zoloft -) 25 mg PO HS [facility] Last Admin: 04/04/18 21:27 Dose: 25 mg Tramadol HCl (Ultram -) 50 mg PO Q6H PRN PRN Reason: PAIN LEVEL 4 - 6 Last Admin: 04/04/18 21:27 Dose: 50 mg - Objective Vital Signs: Vital Signs Temperature 98.4 F 04/05/18 09:44 Pulse Rate 80 04/05/18 09:44 Respiratory Rate 18 04/05/18 09:44 Blood Pressure 120/53 04/05/18 09:44 O2 Sat by Pulse Oximetry (%) 97 04/05/18 09:00 Constitutional: Yes: No Distress, Calm, Thin Neck: Yes: Supple Cardiovascular: Yes: Regular Rate and Rhythm Respiratory: Yes: Regular, Diminished, On Nasal O2 Gastrointestinal: Yes: Normal Bowel Sounds, Soft Edema: No Labs: CBC, BMP 04/04/18 12:00 04/04/18 12:00 INR, PTT INR 1.11 (0.82-1.09) 03/27/18 12:06 Problem List - Problems (1) CHF (congestive heart failure), NYHA class IV Code(s): I50.9 - HEART FAILURE, UNSPECIFIED Qualifiers: Congestive heart failure type: combined Congestive heart failure chronicity : acute on chronic Qualified Code(s): I50.43 - Acute on chronic combined systolic (congestive) and diastolic (congestive) heart failure (2) ASHD (arteriosclerotic heart disease) Code(s): I25.10 - ATHSCL HEART DISEASE OF [place] CORONARY ARTERY W/O ANG PCTRS (3) Diabetes Code(s): E11.9 - TYPE 2 DIABETES MELLITUS WITHOUT COMPLICATIONS Qualifiers: Diabetes mellitus type: type 2 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: without jail use Diabetes mellitus complication status: with neurologic complications (4) ESRD (end stage renal disease) Code(s): N18.6 - END STAGE RENAL DISEASE (5) Gangrene Code(s): I96 - GANGRENE, NOT ELSEWHERE CLASSIFIED (6) HTN (hypertension) Code(s): I10 - ESSENTIAL (PRIMARY) HYPERTENSION Qualifiers: Hypertension type: essential hypertension Qualified Code(s): I10 - Essential (primary) hypertension (7) ICD (implantable cardioverter-defibrillator) in place Code(s): Z95.810 - PRESENCE OF AUTOMATIC (IMPLANTABLE) CARDIAC DEFIBRILLATOR (8) PVD (peripheral vascular disease) Code(s): I73.9 - PERIPHERAL VASCULAR DISEASE, UNSPECIFIED (9) Pleural effusion Code(s): J90 - PLEURAL EFFUSION, NOT ELSEWHERE CLASSIFIED (10) S/P CABG (coronary artery bypass graft) Code(s): Z95.1 - PRESENCE OF AORTOCORONARY BYPASS GRAFT (11) S/P peripheral artery angioplasty with stent placement Code(s): Z95.820 - PERIPHERAL VASCULAR ANGIOPLASTY STATUS W IMPLANTS AND GRAFTS (12) Hypothyroidism Code(s): E03.9 - HYPOTHYROIDISM, UNSPECIFIED (13) Anemia Code(s): D64.9 - ANEMIA, UNSPECIFIED Qualifiers: Anemia type: due to chronic kidney disease (14) Dyspnea Code(s): R06.00 - DYSPNEA, UNSPECIFIED Qualifiers: Dyspnea type: dyspnea on exertion Qualified Code(s): R06.09 - Other forms of dyspnea (15) Steal syndrome of dialysis vascular access Code(s): T82.898A - OTH COMPLICATION OF VASCULAR PROSTH DEV/GRFT, INIT Qualifiers: Encounter type: subsequent encounter Qualified Code(s): T82.898D - Other specified complication of vascular prosthetic devices, implants and grafts, subsequent encounter Assessment/Plan 03/01/2018 Echo: Normal LV size with severely decreased LV fxn, mild TR, tr MR, pleural efusion 1. Acute on Chronic Systolic Heart Failure referable to ischemic dilated cardiomyopathy/severe LV systolic dysfunction with left effusion improving 2. CAD post remote PA post CABG angina pectoris, stable 3. Post prophylactic ICD implant ([employer]'s device) 4. HTN 5. IDDM 6. Hypercholesterolemia 7. PAD with left toe gangrene s/p aortogram, LLE angiogram, SFA atherectomy, DCB SFA angioplasty, with sfa stent 8. ESRD on HD, right AVG with steal 9. Anemia of CKD 10. Hypothyroidism PLAN: 1. Volume removal via UF/HD 2. Continue Toprol XL 100 qd 3. Continue Entresto 49/51 bid and uptitrate dosage as tolerated and hemodynamics permitting 4. Continue ASA 81 qd and Plavix 75 qd 5. Decreased Lipitor 20 qhs (03/01/2018 LDL 31) 6. DVT and GI prophylaxis, encourage ambulation 7. Elective right arm angiogram and DRIL procedure, may proceed from CV- standpoint
[2018-04-05] MEDS ORDERED: INSULIN (NOVOLOG) ASPART 100 UNITS/ML 10ML VIAL ONE (11:50)
--- NOTE | 2018-04-05 12:59 | DS ---
Physical Examination Vital Signs: Vital Signs Temperature 98.4 F 04/05/18 09:44 Pulse Rate 80 04/05/18 09:44 Respiratory Rate 18 04/05/18 09:44 Blood Pressure 120/53 04/05/18 09:44 O2 Sat by Pulse Oximetry (%) 97 04/05/18 09:00 Constitutional: Yes: No Distress, Calm Cardiovascular: Yes: Regular Rate and Rhythm Respiratory: Yes: CTA Bilaterally Gastrointestinal: Yes: Normal Bowel Sounds. No: Tenderness Edema: No Labs: CBC, BMP 04/04/18 12:00 04/04/18 12:00 Discharge Summary Reason For Visit: CHF/NYHA Current Active Problems Anemia (Acute) CHF (congestive heart failure), NYHA class IV (Acute) Hypothyroidism (Acute) Steal syndrome of dialysis vascular access (Acute) Hospital Course: Admitted here for CHF decompensation Pt had extra dialysis with ultrafiltration After dialysis , he is much better, denies SOB seen by Cardiology and Renal Pt was also seen by Vascular surgeon Dr Nieves for toe gangrene-- no further work up for leg-- he is s/p angioplasty of leg previous admission. Pt was c/o weakness and pain in rt arm at AVF site-- he was seen by DR Richard- Vascular surgeon who recommended Angiogram, and DRIL procedure -- this will be done as outpt with DR Richard Pt is medically and cardiac [place] optimzed for surgery He is stable for [facility] Condition: Fair - Instructions Diet, Activity, Other Instructions: Schedule angiogram and DRIL procedure of right arm with DR Richard Referrals: Paul Richard MD [Staff Physician] - Disposition: CUSTODIAL FACILITY - Home Medications Comprehensive Discharge Medication List: Ambulatory Orders Acetaminophen 650 mg PO Q4H PRN 02/28/18 Aspirin [ASA -] 81 mg PO DAILY 02/28/18 Atorvastatin Ca [Lipitor] 80 mg PO HS 02/28/18 Calcium Acetate [Phoslo -] 667 mg PO TIDCM 02/28/18 Clopidogrel Bisulfate [Plavix -] 75 mg PO DAILY 02/28/18 Insulin (LOG) Aspart [NovoLOG -] 0 units SQ TID PRN 02/28/18 Insulin Glargine,Hum.rec.anlog [Lantus] 16 unit SQ HS 02/28/18 Levothyroxine [Synthroid -] 25 mcg PO DAILY 02/28/18 Lisinopril 10 mg PO DAILY 02/28/18 Metoprolol Succinate [Toprol Xl] 150 mg PO DAILY 02/28/18 Pantoprazole Sodium 40 mg PO DAILY 02/28/18 Sennosides [Senna -] 1 tab PO HS 02/28/18 Sertraline HCl [Zoloft -] 50 mg PO HS 02/28/18 Heparin - 5,000 unit SQ BID #1 vial 03/10/18 Albuterol 0.083% Nebulizer Yessi [Ventolin 0.083% Nebulizer Soln -] 1 amp IN Q8H PRN 03/28/18
[2018-04-05 14:24] VITALS: BP 125/77; PULSE 81; TEMP 97.7
--- NOTE | 2018-04-05 15:27 | PN ---
Progress Note, Physician History of Present Illness: Pt seen and examined at bedside. He is awake and alert. - Current Medication List Current Medications: Active Medications Acetaminophen (Tylenol -) 650 mg PO Q4H PRN PRN Reason: PAIN LEVEL 1 - 3 Last Admin: 03/31/18 23:02 Dose: 650 mg Aspirin (Asa -) 81 mg PO DAILY [facility] Last Admin: 04/05/18 09:43 Dose: 81 mg Atorvastatin Calcium (Lipitor -) 20 mg PO [facility] Last Admin: 04/04/18 21:28 Dose: 20 mg Calcium Acetate (Phoslo -) 667 mg PO TIDCM [facility] Last Admin: 04/05/18 11:54 Dose: 667 mg Clopidogrel Bisulfate (Plavix -) 75 mg PO DAILY [facility] Last Admin: 04/05/18 09:43 Dose: 75 mg Docusate Sodium (Colace -) 100 mg PO TID [facility] Last Admin: 04/05/18 14:31 Dose: 100 mg Gabapentin (Neurontin -) 100 mg PO TID [facility] Last Admin: 04/05/18 14:31 Dose: 100 mg Insulin Aspart (Novolog Vial Sliding Scale -) 1 vial SQ [facility]; Protocol Last Admin: 04/05/18 11:54 Dose: 6 units Insulin Detemir (Levemir Vial) 10 units SQ [facility] Last Admin: 04/04/18 21:28 Dose: 10 unit Levothyroxine Sodium (Synthroid -) 25 mcg PO DAILY@0700 [facility] Last Admin: 04/05/18 06:09 Dose: 25 mcg Metoprolol Succinate (Toprol Xl -) 100 mg PO DAILY [facility] Last Admin: 04/05/18 09:43 Dose: 100 mg Multivitamins/Minerals/Vitamin C (Tab-A-Vit -) 1 tab PO DAILY [facility] Last Admin: 04/05/18 09:43 Dose: 1 tab Pantoprazole Sodium (Protonix -) 40 mg PO DAILY [facility] Last Admin: 04/05/18 09:43 Dose: 40 mg Sacubitril/Valsartan (Entresto 49 Mg-51 Mg Tablet) 1 tab PO BID [facility] Last Admin: 04/05/18 09:43 Dose: 1 tab Senna (Senna -) 1 tab PO [facility] Last Admin: 04/04/18 21:27 Dose: 1 tab Sertraline HCl (Zoloft -) 25 mg PO HS [facility] Last Admin: 04/04/18 21:27 Dose: 25 mg - Objective Vital Signs: Vital Signs Temperature 97.7 F 04/05/18 14:00 Pulse Rate 81 04/05/18 14:00 Respiratory Rate 18 04/05/18 09:44 Blood Pressure 125/77 04/05/18 14:00 O2 Sat by Pulse Oximetry (%) 97 04/05/18 09:00 Constitutional: Yes: Calm Eyes: Yes: Conjunctiva Clear HENT: Yes: Atraumatic Neck: Yes: Supple Cardiovascular: Yes: S1, S2 Respiratory: Yes: CTA Bilaterally, On Nasal O2 Gastrointestinal: Yes: Soft Genitourinary: Yes: WNL Musculoskeletal: Yes: Other (toe gangrene) Edema: No Neurological: Yes: Oriented Psychiatric: Yes: Oriented Labs: CBC, BMP 04/04/18 12:00 04/04/18 12:00 INR, PTT INR 1.11 (0.82-1.09) 03/27/18 12:06 Problem List - Problems (1) Anemia Code(s): D64.9 - ANEMIA, UNSPECIFIED Qualifiers: Anemia type: due to chronic kidney disease (2) CHF (congestive heart failure), NYHA class IV Code(s): I50.9 - HEART FAILURE, UNSPECIFIED Qualifiers: Congestive heart failure type: combined Congestive heart failure chronicity : acute on chronic Qualified Code(s): I50.43 - Acute on chronic combined systolic (congestive) and diastolic (congestive) heart failure (3) ESRD (end stage renal disease) Code(s): N18.6 - END STAGE RENAL DISEASE Assessment/Plan Current Medications Generic Name Dose Route Start Last Admin Trade Name Freq PRN Reason Stop Dose Admin Acetaminophen 650 mg 03/27/18 20:22 03/31/18 23:02 Tylenol - PO 650 mg Q4H PRN Administration PAIN LEVEL 1 - 3 Aspirin 81 mg 03/28/18 10:00 04/05/18 09:43 Asa - PO 81 mg DAILY [facility] Administration Atorvastatin Calcium 20 mg 03/28/18 10:46 04/04/18 21:28 Lipitor - PO 20 mg HS [facility] Administration Calcium Acetate 667 mg 03/27/18 20:45 04/05/18 11:54 Phoslo - PO 667 mg TIDCM [facility] Administration Clopidogrel Bisulfate 75 mg 03/28/18 10:00 04/05/18 09:43 Plavix - PO 75 mg DAILY [facility] Administration Docusate Sodium 100 mg 03/28/18 14:00 04/05/18 14:31 Colace - PO 100 mg TID [facility] Administration Gabapentin 100 mg 03/30/18 14:00 04/05/18 14:31 Neurontin - PO 100 mg TID [facility] Administration Insulin Aspart 1 vial 03/27/18 22:00 04/05/18 11:54 Novolog Vial Sliding Scale - SQ 6 units ACHS [facility] Administration Protocol Insulin Detemir 10 units 03/28/18 11:42 04/04/18 21:28 Levemir Vial SQ 10 unit HS [facility] Administration Levothyroxine Sodium 25 mcg 03/28/18 07:00 04/05/18 06:09 Synthroid - PO 25 mcg DAILY@0700 [facility] Administration Metoprolol Succinate 100 mg 03/28/18 10:00 04/05/18 09:43 Toprol Xl - PO 100 mg DAILY [facility] Administration Multivitamins/Minerals/Vitamin C 1 tab 03/28/18 10:00 04/05/18 09:43 Tab-A-Vit - PO 1 tab DAILY [facility] Administration Pantoprazole Sodium 40 mg 03/28/18 10:00 04/05/18 09:43 Protonix - PO 40 mg DAILY [facility] Administration Sacubitril/Valsartan 1 tab 04/03/18 10:00 04/05/18 09:43 Entresto 49 Mg-51 Mg Tablet PO 1 tab BID [facility] Administration Senna 1 tab 03/27/18 22:00 04/04/18 21:27 Senna - PO 1 tab HS [facility] Administration Sertraline HCl 25 mg 03/27/18 22:00 04/04/18 21:27 Zoloft - PO 25 mg HS [facility] Administration Impression 1. ESRD 2. fluid overload 3. DM 4. CAD 5. PVD 6. DFU 7. anemia 8. steal syndrome Plan - pt has HD scheduled as outpt - discussed fluid intake with pt - vascular follow up for gangrene - vascular follow up for steal, he will have a procedure as outpt - monitor weights Dr Dove
== END 2018-04-05 19:00 | DRG 291 ==
LOC: JER 11:15 → JERBED 15:32 → J4S 03-28 01:39
PROVIDERS: ADMIT Internal Medicine; ATTEND Internal Medicine
PROC: 5A1D70Z Performance of Urinary Filtration, Intermittent, Less than 6 Hours Per Day (ICD-10-PCS; principal; 2018-03-31)
PROC: 5A1D70Z Performance of Urinary Filtration, Intermittent, Less than 6 Hours Per Day (ICD-10-PCS; 2018-04-02)
PROC: 5A1D70Z Performance of Urinary Filtration, Intermittent, Less than 6 Hours Per Day (ICD-10-PCS; 2018-04-04)
DX: I13.2 Hypertensive heart and chronic kidney disease with heart failure and with stage 5 chronic kidney disease, or end stage renal disease (principal); N18.6 End stage renal disease; I50.43 Acute on chronic combined systolic (congestive) and diastolic (congestive) heart failure; I48.91 Unspecified atrial fibrillation; J44.9 Chronic obstructive pulmonary disease, unspecified; E03.9 Hypothyroidism, unspecified; F32.9 Major depressive disorder, single episode, unspecified; I42.0 Dilated cardiomyopathy; I25.5 Ischemic cardiomyopathy; I25.10 Atherosclerotic heart disease of native coronary artery without angina pectoris; I25.2 Old myocardial infarction; D63.8 Anemia in other chronic diseases classified elsewhere; E11.51 Type 2 diabetes mellitus with diabetic peripheral angiopathy without gangrene; E78.00 Pure hypercholesterolemia, unspecified; E11.22 Type 2 diabetes mellitus with diabetic chronic kidney disease; Z99.2 Dependence on renal dialysis; Z95.810 Presence of automatic (implantable) cardiac defibrillator; Z95.1 Presence of aortocoronary bypass graft; Z87.891 Personal history of nicotine dependence
CPT/HCPCS: 36415; 71045-TC-FY; 80048; 80053; 82550; 82962; 83880; 84439; 84443; 84484; 85025; 85027; 85610; 85730; 86704; 86706; 86708; 87340; 87522; 93005; 93010; 94640; 99285-25; J0131; J0885; J1644

== ENCOUNTER 2018-04-06 19:26 | Inpatient (IN) | payer OTHER ==
--- NOTE | 2018-04-06 19:44 | PDOC ---
History of Present Illness - General Stated Complaint: AMS Time Seen by Provider: 04/06/18 19:33 History Source: Patient Exam Limitations: No Limitations - History of Present Illness Initial Comments: 72 YOM with h/o ESRD on HD (RUE access, T//S, makes little urine), HTN, COPD, CABG x 4, pacemaker use, CHF (with admission for SOB and CHF exacerbation earlier this week), PVD, dry gangrene left great toe, LLE angioplasty w/ stent to LLE by Dr. Nieves, and hypothyroidism who was BIBA from [facility] for altered mental status found at 6:30 pm today. He also had twitching movements to his extremities (worse in the RUE). His last known well time was 3:30 pm via a phone conversation with family. at 6:30 pm he was found to been unresponsive and nonverbal with twitching movements to his RUE. He has been slowly returning to his normal baseline (which is a/o x4 without speech difficulties) while in the ambulance en route to the ED. His vital signs were essentially within normal limits for EMS and his CBG was in the upper 100s. Here in the ED, the patient makes eye contact and is fully responsive to voice, initially with some speech difficulties but this resolves during initial evaluation. The patient denies any pain, or any new fever, chills, nausea, vomiting, diarrhea, constipation, rashes, headache, chest pain, SOB, or other symptoms. tPA Exclusion checklist 3-4.5h - Time Elapsed Date last known well: 04/06/18 Time last known well: 15:30 Elaspsed time: Day(s) and 6 Hour(s) and 44 Minutes - Thrombolytic Therapy Candidate Is patient eligible for thrombolytic therapy: No - Exclusion Criteria 3-4.5 hr SBP greater than 185 or DBP greater than 110mmHg despite tx: No Recent IC/spinal surgery,head trauma or stroke<3mos.: No Hx IC hemorrhage, IC neoplasm, AV malformation or aneurysm: No Active internal bleeding: No Blding diathesis(low plt ct, inc PTT,INR>1.7 or use of NOAC): No Symptoms suggest subarachnoid hemorrhage: No CT demonstrates multilobar infarct(>1/3 cerebral hemiphere): No Arterial puncture at noncompressible site in previous 7 days: No Blood glucose concentration less than 50mg/dL (2.7mmol/L): No - Relative Exclusion Criteria 3-4.5 hr Life expectancy <1 yr or severe co-morbid illness: No : No Patient/family refused: No Rapid improvement: Yes Stroke severity too mild: Yes Recent acute MA (w/in previous 3 months): No Seizure at onset with postictal residual neuro impairments: Yes Major surgery or serious trauma w/in previous 14 days: No Recent GI or hemorrhage (w/in previous 21 days): No - Add'l Relative Exclusion 3-4.5 hr Age > 80: No Hx of both diabetes AND prior ischemic stroke: No Taking an oral anticoagulant regardless of INR: No NIHSS >25: No - Ineligibility reason(s) Reasons No tPA given: Outside of window - delayed arrival, See reason(s) noted above NIH Stroke Scale - Last Known Well Date/Time & Onset Date Last Known Well: 04/06/18 Time Last Known Well: 15:30 - Initial Evaluation Level of consciousness: Alert Ask patient the month and their age: Answers both correctly Ask patient to open & close eyes; make fist and let go: Obeys both correctly Best gaze (horizontal eye movement): Normal Visual field testing: No visual field loss Facial paresis (Show teeth/raise eyebrows/close eyes tight): Normal symmetrical movement Motor Function: Left Arm: Normal Motor Function: Right Arm: Normal (extends arm 90 (or 45) degrees for 10 seconds without drift Motor Function: Left Leg: Normal (extends leg 30 degrees for 5 seconds without drift) Motor Function: Right Leg: Normal (extends leg 30 degrees for 5 seconds without drift) Limb Ataxia: No ataxia Sensory(Use pinprick test arms,legs,trunk,face/side to side): Normal Best language (Describe picture, name items, read sentences): No Aphasia Dysarthria (read several words): Mild to moderate slurring of words (rapidly resolves within 5-10 minutes of arrival) Extinction and Inattention: No abnormality - Total Score NIH Stroke Scale Score: 1 Past History - Past Medical History Allergies/Adverse Reactions: Allergies Allergy/AdvReac Type Severity Reaction Status Date / Time No Known Allergies Allergy Verified 04/06/18 19:41 Home Medications: Ambulatory Orders Acetaminophen 650 mg PO Q4H PRN 02/28/18 Aspirin [ASA -] 81 mg PO DAILY 02/28/18 Atorvastatin Ca [Lipitor] 80 mg PO HS 02/28/18 Calcium Acetate [Phoslo -] 667 mg PO TIDCM 02/28/18 Clopidogrel Bisulfate [Plavix -] 75 mg PO DAILY 02/28/18 Insulin (LOG) Aspart [NovoLOG -] 0 units SQ TID PRN 02/28/18 Insulin Glargine,Hum.rec.anlog [Lantus] 16 unit SQ HS 02/28/18 Levothyroxine [Synthroid -] 25 mcg PO DAILY 02/28/18 Metoprolol Succinate [Toprol Xl] 150 mg PO DAILY 02/28/18 Pantoprazole Sodium 40 mg PO DAILY 02/28/18 Sennosides [Senna -] 1 tab PO HS 02/28/18 Sertraline HCl [Zoloft -] 50 mg PO HS 02/28/18 Heparin - 5,000 unit SQ BID #1 vial 03/10/18 Albuterol 0.083% Nebulizer Yessi [Ventolin 0.083% Nebulizer Soln -] 1 amp IN Q8H PRN 03/28/18 Gabapentin [Neurontin -] 100 mg PO TID #60 capsule 04/05/18 Sacubitril/Valsartan [Entresto 49 mg-51 mg Tablet] 1 tab PO BID #60 tablet 04/05 Cardiac Disorders: Yes (AFIB, ASHD, CAD, MA,) COPD: Yes CHF: Yes (CHF, Acute pulmonary edema, bronchospasm) Diabetes: Yes (Type 2) GI Disorders: Yes (GIB, constipation, salmonella,) HTN: Yes Hypercholesterolemia: Yes Liver Disease: Yes (DIC) Psychiatric Problems: Yes (depression) Thyroid Disease: Yes (Hypothyroidism) - Surgical History Cardiac Surgery: Yes (CABG x 3, PPM, Defibrillator) Orthopedic Surgery: Yes (right hip replacement) - Suicide/Smoking/Psychosocial Hx Smoking History: Former smoker Have you smoked in the past 12 months: No Number of Cigarettes Smoked Daily: 5 If you are a former smoker, when did you quit?: 2004 Hx Alcohol Use: No Drug/Substance Use Hx: No Substance Use Type: None Hx Substance Use Treatment: No Review of Systems - Review of Systems Able to Perform ROS?: Yes Constitutional: No: Chills, Fever, Unexplained wgt Loss HEENTM: No: Nose Congestion, Throat Pain Respiratory: No: Cough, Shortness of Breath Cardiac (ROS): No: Chest Pain, Palpitations ABD/GI: No: Constipated, Diarrhea, Nausea, Vomiting : No: Burning, Dysuria Musculoskeletal: No: Back Pain, Neck Pain Integumentary: No: Bruising, Rash Neurological: Yes: Other (altered mental status, muscle twitches (extremities), speech difficulty). No: Headache, Numbness, Tingling, Weakness, Dizziness Endocrine: No: Unexplained Weight Gain, Unexplained Weight Loss *Physical Exam - Physical Exam General Appearance: Yes: Nourished, Appropriately Dressed, Other (nontoxic appearing adult male accompanied by daughter, no distress, initially arousable to loud voice and attentive and answers questions with some speech difficulty ( mildly slurred), this quickly resolves, patient a/o x4 at initial evaluation and able to answer questions appropriately). No: Apparent Distress HEENT: positive: EOMI, KASI, Normal ENT Inspection, Normal Voice, Hearing Grossly Normal. negative: Scleral Icterus (R), Scleral Icterus (L), Nasal Congestion Neck: positive: Trachea midline, Supple. negative: Tender, Rigid Respiratory/Chest: positive: Lungs Clear, Normal Breath Sounds. negative: Respiratory Distress, Crackles, Rhonchi, Stridor, Wheezing Cardiovascular: positive: Regular Rhythm, Regular Rate, S1, S2, Other (midline sternotomy scar, pacemaker in place anterior chest wall). negative: Edema, JVD , Murmur Gastrointestinal/Abdominal: positive: Normal Bowel Sounds, Flat, Soft. negative : Tender, Organomegaly, Pulsatile Mass, Guarding Musculoskeletal: positive: Normal Inspection. negative: Decreased Range of Motion, Vertebral Tenderness Extremity: positive: Normal Capillary Refill, Normal Range of Motion, Other ( left great toe with dry gangrene from tip of toe to the base of the toe, minimal proximal erythema, no tenderness, no stresking erythema). negative: Tender, Cyanosis Integumentary: positive: Normal Color, Dry, Warm. negative: Erythema, Rash, Bruising Neurologic: positive: associate artistic director II-XII NML intact, Fully Oriented, Alert, Normal Mood/ Affect, Normal Response, Motor Strength 5/5, Other (gait not tested). negative : EOM Palsy, Facial Droop, Numbness, Sensory Deficit, Confused, Disoriented ED Treatment Course - LABORATORY CBC & Chemistry Diagram: 04/06/18 20:08 04/06/18 20:08 Medical Decision Making - Medical Decision Making 04/06/18 21:33 Adult Pt p/w acute transient change in mental status with slurred speech ( resolved rapidly on arrival). Also with new muscle twitches worse in RUE. Initial Vital Signs Temp Pulse Resp BP Pulse Ox 98.6 F 81 16 144/63 97 04/06/18 19:30 04/06/18 19:30 04/06/18 19:30 04/06/18 19:30 04/06/18 19:30 Exam: initially responsive to voice, makes eye contact, mild slurred speech/ quiet speech, rapidly improves within minutes of arrival, NIHSS is 1 at maximum and decreases to 0 within 5-10 minutes. DDX IBNLT: structural (e.g. new onset seizurebrain tumor, CVA/TIA, NPH, CJD, ACS , PE, José Miguel disease), infectious (e.g. UTI, PNA, bronchitis, cellulitis, meningitis, neurosyphilis, HIV-associated dementia), VS abnormalities (e.g. fever, hypertensive emergency), toxic-metabolic (e.g. medications, drugs e.g. serotonin syndrome/neuroleptic malignant syndrome or street drugs, electrolytes , hypothyroid, B12 deficiency), psychiatric (e.g. delirium, dementia, psychosis) , TTP (HUS with AMS, fever, poss seizure), etc. W/U ordered: CBCD CMP Mg Phos Troponin CK CKMB TSH B12 ABG UA UCx RPR HIV EKG CXR HCT WO contrast TX ordered: None EKG: As noted in ECG Review section. CXR: NADP, congestion and effusions much improved from prior. Head CT: NADP Laboratory Tests 04/06/18 04/06/18 04/06/18 20:00 20:08 20:08 WBC 6.8 RBC 3.40 L Hgb 10.0 L Hct 30.7 L MCV 90.3 MCH 29.3 MCHC 32.5 RDW 20.8 H Plt Count 182 MPV 9.3 Absolute Neuts (auto) 4.5 Neutrophils % 65.8 Lymphocytes % 18.2 Monocytes % 11.1 H Eosinophils % 4.1 Basophils % 0.8 Nucleated RBC % 0 PT with INR 11.60 INR 1.03 PTT (Actin FS) Sodium Potassium Chloride Carbon Dioxide Anion Gap BUN Creatinine Creat Clearance w eGFR Random Glucose Lactic Acid Calcium Magnesium 1.7 L D Total Bilirubin AST ALT Alkaline Phosphatase Ammonia Creatine Kinase Troponin I B-Natriuretic Peptide Total Protein Albumin Urine Color Urine Appearance Urine pH Ur Specific [place] Urine Protein Urine Glucose (UA) Urine Ketones Urine Blood Urine Nitrite Urine Bilirubin Urine Urobilinogen Ur Leukocyte Esterase Urine WBC (Auto) Urine RBC (Auto) Urine Bacteria Hyaline Casts Urine Mucus Blood Type Antibody Screen 04/06/18 04/06/18 04/06/18 20:08 20:08 20:08 WBC RBC Hgb Hct MCV MCH MCHC RDW Plt Count MPV Absolute Neuts (auto) Neutrophils % Lymphocytes % Monocytes % Eosinophils % Basophils % Nucleated RBC % PT with INR INR PTT (Actin FS) 28.1 Sodium 136 Potassium 5.7 H Chloride 100 Carbon Dioxide 28 Anion Gap 8 BUN 58 H Creatinine 5.8 H Creat Clearance w eGFR 9.66 Random Glucose 107 H D Lactic Acid Calcium 8.5 Magnesium Total Bilirubin 0.4 AST 23 ALT 22 Alkaline Phosphatase 149 H D Ammonia Creatine Kinase 52 Troponin I 0.05 B-Natriuretic Peptide Total Protein 7.0 Albumin 3.3 L Urine Color Urine Appearance Urine pH Ur Specific [place] Urine Protein Urine Glucose (UA) Urine Ketones Urine Blood Urine Nitrite Urine Bilirubin Urine Urobilinogen Ur Leukocyte Esterase Urine WBC (Auto) Urine RBC (Auto) Urine Bacteria Hyaline Casts Urine Mucus Blood Type O POSITIVE Antibody Screen Negative 04/06/18 04/06/18 04/06/18 20:08 20:08 20:45 WBC RBC Hgb Hct MCV MCH MCHC RDW Plt Count MPV Absolute Neuts (auto) Neutrophils % Lymphocytes % Monocytes % Eosinophils % Basophils % Nucleated RBC % PT with INR INR PTT (Actin FS) Sodium Potassium Chloride Carbon Dioxide Anion Gap BUN Creatinine Creat Clearance w eGFR Random Glucose Lactic Acid 1.3 Calcium Magnesium Total Bilirubin AST ALT Alkaline Phosphatase Ammonia Cancelled Creatine Kinase Troponin I B-Natriuretic Peptide 815503.37 H Total Protein Albumin Urine Color Urine Appearance Urine pH Ur Specific [place] Urine Protein Urine Glucose (UA) Urine Ketones Urine Blood Urine Nitrite Urine Bilirubin Urine Urobilinogen Ur Leukocyte Esterase Urine WBC (Auto) Urine RBC (Auto) Urine Bacteria Hyaline Casts Urine Mucus Blood Type Antibody Screen 04/06/18 21:02 WBC RBC Hgb Hct MCV MCH MCHC RDW Plt Count MPV Absolute Neuts (auto) Neutrophils % Lymphocytes % Monocytes % Eosinophils % Basophils % Nucleated RBC % PT with INR INR PTT (Actin FS) Sodium Potassium Chloride Carbon Dioxide Anion Gap BUN Creatinine Creat Clearance w eGFR Random Glucose Lactic Acid Calcium Magnesium Total Bilirubin AST ALT Alkaline Phosphatase Ammonia Creatine Kinase Troponin I B-Natriuretic Peptide Total Protein Albumin Urine Color Yellow Urine Appearance Clear Urine pH 7.0 Ur Specific [place] 1.016 Urine Protein 3+ H Urine Glucose (UA) 1+ H Urine Ketones Negative Urine Blood Negative Urine Nitrite Negative Urine Bilirubin Negative Urine Urobilinogen Negative Ur Leukocyte Esterase Negative Urine WBC (Auto) 1 Urine RBC (Auto) 2 Urine Bacteria Rare Hyaline Casts 1 Urine Mucus Rare Blood Type Antibody Screen Reassessment: Patient feels much better, mentating well and talking per baseline , interacting with family. Vital Signs Temperature 98.8 F 04/06/18 20:30 Pulse Rate 80 04/06/18 20:30 Respiratory Rate 17 04/06/18 20:30 Blood Pressure 134/52 04/06/18 20:30 O2 Sat by Pulse Oximetry (%) 92 L 04/06/18 20:30 ADMIT Pt to be admitted given acute change in mental status. Spoke with Neurology on-call Dr. Snider and consult order placed. They are unsafe for discharge at this time. They require further hospital observation, workup, and treatment. Microblog sent to [facility] for admission. Spoke with Marianela, in agreement Pt to be admitted to Stroke Unit, HD bed. Decision to Admit order placed to covering attending Dr. Hernandez. *DC/Admit/Observation/Transfer Diagnosis at time of Disposition: Altered mental status, Slurred speech, ESRD (end stage renal disease) - Discharge Dispostion Condition at time of disposition: Guarded Decision to Admit order: Yes - Referrals - Patient Instructions - Post Discharge Activity
--- NOTE | 2018-04-06 20:04 | PDOC ---
Attending Attestation - HPI HPI: 04/06/18 20:35 The patient is a 72-year-old male from [facility], with a past medical history of, HTN, hypothyroidism, COPD, on oxygen at [place] CABG x 4,pacemaker, CHF, PVD, gangrene to L great toe, s/p recent angioplasty w/ stent to LLE, IDDM, ESRD on HD via RUE access on T/W/S, s/p HD yesterday makes very little urine output , s/ p recently d/c from the hospital for CHF exacerbation and SOB. His great niece reports that she got a call from [facility] that he was unresponsive to verbal commands and had twitching movements in his upper and lower extremities. She reports that he has been have numbness issues in his right arm since the fistula placement.He has slowly returning to baseline here in the ED and has slowed but clear speech. The patient denies any pain, or any new fever, chills, nausea, vomiting, diarrhea, constipation, rashes, headache, chest pain, SOB, or other symptoms. Social Hx: Former Smoker Finance Insurance Manager: Dr. Velasquez PCP: Dr. Umanzor ([facility]) Vascular Surgeon: Dr. Paul Richard ([facility]) 04/06/18 20:36 <Elzbieta Osuna - Last Filed: 04/06/18 20:36> - Resident Resident Name: Lindsey Meza - ED Attending Attestation I have performed the following: I have examined & evaluated the patient, The case was reviewed & discussed with the resident, I agree w/resident's findings & plan, Exceptions are as noted - Physicial Exam PE: 04/06/18 20:10 awake alert . CN intact. dry mucous membranes. lungs clear bilaterally . heart rrr no mrg. abd soft nt nd. ext wwp. rue fistula good bruit. left lower ext left foot 1+ dp pulses. gangrene dry left great toe. erythema to ankle. right leg wwp 2+ dp pulses. stroke scale 0 pt 5/5 all four ext. noted fasiculations ( spasticity all four ext ) worse RUE. speech slow, but clear. - Medical Decision Making 04/06/18 20:13 72 yo male h/o DM ESRD CABG, PVD left leg stent, HTN COPD, recently dc yesterday for chf. was dialyzed last 2 days ago. here from nursing facility with AMS. was noted to have twitching of all four ext. was altered. per pt livia ( health care proxy ) he has had some nerve damage of rue from prior fistula. last normal 3 pm. on ems arrival appeared to be having a seizure. since arrival pt rapidly improving with more alertness and improving speech. no h/o seizure or known cva. differential: electrolyte abnormality. glucose 290, hyper or hypocalcemia. med side effect. seizure, ich, unlikley cva due to rapid improvement . plan ct head. labs cxr rectal temp r/o sepsis. will lilkey require admission. 04/06/18 22:05 pt much improved following evaluation . ct head unremarkable. labs unremarkable. will admit. pt d/w dr. montes. <Lorena Rios - Last Filed: 04/06/18 22:11> Heart Score/ECG Review #1 General ECG Interpretation: Sinus Rhythm, Normal Rate, Normal Intervals, No acute ischemic changes <Lorena Rios - Last Filed: 04/06/18 22:11>
[2018-04-06 20:18] LABS: BASO % 0.8 % (0-2.0); EOS % 4.1 % (0-4.5); HEMATOCRIT 30.7 % (35.4-49); LYMPH % 18.2 % (8-40); MCH 29.3 pg (25.7-33.7); MCHC 32.5 g/dl (32.0-35.9); MEAN CELL VOLUME 90.3 fl (80-96); MEAN PLT VOLUME 9.3 fl (7.5-11.1); MONO % 11.1 % (3.8-10.2); NEUT % 65.8 % (42.8-82.8); PLATELET COUNT 182 K/MM3 (134-434); RDW 20.8 % (11.9-15.9); WHITE BLOOD COUNT 6.8 K/mm3 (4.0-10.0)
[2018-04-06 20:36] LABS: INR 1.03 (0.82-1.09); PROTHROMBIN TIME (PATIENT) 11.6 SEC (9.7-13.0)
[2018-04-06 20:45] LABS: ALBUMIN 3.3 g/dl (3.4-5.0); ANION GAP 8 (8-16); BILIRUBIN,TOTAL 0.4 mg/dL (0.2-1.0); BLOOD UREA NITROGEN 58 mg/dL (7-18); CALCIUM 8.5 mg/dL (8.5-10.1); CHLORIDE 100 mmol/L (98-107); CO2 28 mmol/L (21-32); CREATININE 5.8 mg/dL (0.7-1.3); GLUCOSE,RANDOM 107 mg/dL (74-106); POTASSIUM 5.7 mmol/L (3.5-5.1); SGOT/AST 23 U/L (15-37); SGPT/ALT 22 U/L (12-78); SODIUM 136 mmol/L (136-145)
[2018-04-06 20:49] LABS: ALK PHOS 149 U/L (45-117)
[2018-04-06 21:21] LABS: URINE APPEARANCE CLEAR; URINE BILIRUBIN NEGATIVE (<2.0 mg/dL); URINE COLOR YELLOW; URINE GLUCOSE (UA) 1+ (NEGATIVE); URINE KETONE NEGATIVE (NEGATIVE); URINE LEUK ESTERASE NEGATIVE (NEGATIVE); URINE NITRITE NEGATIVE (NEGATIVE); URINE UROBILINOGEN NEGATIVE mg/dL (0.2-1.0)
[2018-04-06 21:26] LABS: URINE PROTEIN 3+ (NEGATIVE)
[2018-04-06 21:27] LABS: URINE BACTERIA RARE /hpf (NONE SEEN); URINE HYALINE CAST 1 /lpf; URINE MUCUS RARE
--- NOTE | 2018-04-06 22:31 | HP ---
Admitting History and Physical - Admission Chief Complaint: slurred speech History of Present Illness: this is a 72 y/o male patient with hx of CAD s/p 4 Vessel CABG 10 years ago, senior care resident, PVD with dry gangrene of the Left toe, followed by vascular surgery, ESRD on DIalysis MWF via Right arm fistula, HTN, DL, HFrEF, atrial fibrillation not on anticoagulation due to massive GI bleed in june 2017 at [facility]. medtronic ICD, presented to the hospital for LOC, slurred speech. and shaking. patient family stated that the patients speech was different today after his LOC, but its is improving. patient is not a candidate for tPA due to missing the window for it also the major bleeding that the patient had in June that required him to be transfused. 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 Cardiovascular: Yes: AFIB, CAD, CHF, HTN, Hyperlipdemia, [place], Mitral Insufficiency Gastrointestinal: Yes: GI Bleed Renal/: Yes: Renal Inusuff, Hemodialysis Heme/Onc: Yes: Anemia Psych: Yes: Anxiety Endocrine: Yes: Diabetes Mellitus - Past Surgical History Past Surgical History: Yes: AICD, AV Fistula/Graft, CABG - Smoking History Smoking history: Former smoker Have you smoked in the past 12 months: No Aproximately how many cigarettes per day: 5 If you are a former smoker, when did you quit?: 2004 - Alcohol/Substance Use Hx Alcohol Use: No Home Medications - Allergies Allergies/Adverse Reactions: Allergies Allergy/AdvReac Type Severity Reaction Status Date / Time No Known Allergies Allergy Verified 04/06/18 19:41 - Home Medications Home Medications: Ambulatory Orders Acetaminophen 650 mg PO Q4H PRN 02/28/18 Aspirin [ASA -] 81 mg PO DAILY 02/28/18 Atorvastatin Ca [Lipitor] 80 mg PO HS 02/28/18 Calcium Acetate [Phoslo -] 667 mg PO TIDCM 02/28/18 Clopidogrel Bisulfate [Plavix -] 75 mg PO DAILY 02/28/18 Insulin (LOG) Aspart [NovoLOG -] 0 units SQ TID PRN 02/28/18 Insulin Glargine,Hum.rec.anlog [Lantus] 16 unit SQ HS 02/28/18 Levothyroxine [Synthroid -] 25 mcg PO DAILY 02/28/18 Metoprolol Succinate [Toprol Xl] 150 mg PO DAILY 02/28/18 Pantoprazole Sodium 40 mg PO DAILY 02/28/18 Sennosides [Senna -] 1 tab PO HS 02/28/18 Sertraline HCl [Zoloft -] 50 mg PO HS 02/28/18 Heparin - 5,000 unit SQ BID #1 vial 03/10/18 Albuterol 0.083% Nebulizer Yessi [Ventolin 0.083% Nebulizer Soln -] 1 amp IN Q8H PRN 03/28/18 Gabapentin [Neurontin -] 100 mg PO TID #60 capsule 04/05/18 Sacubitril/Valsartan [Entresto 49 mg-51 mg Tablet] 1 tab PO BID #60 tablet 04/05 Review of Systems - Review of Systems Constitutional: reports: No Symptoms Eyes: reports: No Symptoms Neck: reports: No Symptoms Cardiovascular: reports: No Symptoms Respiratory: reports: No Symptoms Gastrointestinal: reports: No Symptoms Musculoskeletal: reports: Other (shaking of the arms, weakness of the Right arm that has been going on for the past few months after the AVF was placed) Integumentary: reports: No Symptoms Neurological: reports: Change in LOC, Change in Speech, Confusion, Incoordination, Numbness, Parasthesia, Seizure, Syncope, Tremors, Weakness Endocrine: reports: No Symptoms Physical Examination Vital Signs: Vital Signs Temperature 98.8 F 04/06/18 20:30 Pulse Rate 80 04/06/18 20:30 Respiratory Rate 17 04/06/18 20:30 Blood Pressure 134/52 04/06/18 20:30 O2 Sat by Pulse Oximetry (%) 92 L 04/06/18 20:30 Constitutional: Yes: Well Nourished, No Distress, Calm, Anxious Eyes: Yes: WNL, Conjunctiva Clear, EOM Intact HENT: Yes: WNL, Atraumatic, Normocephalic Neck: Yes: WNL, Supple, Trachea Midline Cardiovascular: Yes: WNL, Pulse Irregular, S1, S2 Respiratory: Yes: WNL, Regular, CTA Bilaterally Gastrointestinal: Yes: WNL, Normal Bowel Sounds, Soft ...Rectal Exam: Yes: Deferred Renal/: Yes: Anuria Edema: LLE: Trace, RLE: Trace Peripheral Pulses: Left Radial: 2+, Right Radial: 2+, Left Femoral: 2+, Right Femoral: 2+ Integumentary: Yes: WNL Wound/Incision: Yes: Clean/Dry, Well Approximated, Open to air, Dressing Dry and Intact Neurological: Yes: Alert, Oriented, Tremors, Other (slurred speech) ...Motor Strength: WNL (4/5 LEft arm, 3/5 Right arm) Labs: CBC, BMP 04/06/18 20:08 04/06/18 20:08 Imaging - Results Chest X-ray: Image Reviewed X-ray: Report Reviewed, Image Reviewed Cat Scan: Report Reviewed, Image Reviewed Problem List - Problems (1) Altered mental status Assessment/Plan: resolved during the ambulance Code(s): R41.82 - ALTERED MENTAL STATUS, UNSPECIFIED (2) ESRD (end stage renal disease) Assessment/Plan: on dialysis TTHSat renal consult Code(s): N18.6 - END STAGE RENAL DISEASE (3) Slurred speech Assessment/Plan: resolving patient admitted to the stroke unit will f/u with neurology Code(s): R47.81 - SLURRED SPEECH (4) Anemia Assessment/Plan: 2/2 ESRD follow renal recommendation Code(s): D64.9 - ANEMIA, UNSPECIFIED Qualifiers: Anemia type: due to chronic kidney disease Chronic kidney disease stage: on chronic dialysis Qualified Code(s): N18.6 - End stage renal disease; D63.1 - Anemia in chronic kidney disease; Z99.2 - Dependence on renal dialysis (5) Diabetes Assessment/Plan: insulin sliding scale c/w home medication Code(s): E11.9 - TYPE 2 DIABETES MELLITUS WITHOUT COMPLICATIONS Qualifiers: Diabetes mellitus type: type 2 Diabetes mellitus long-term insulin use: without long-term use Diabetes mellitus complication status: with neurologic complications (6) Gangrene Assessment/Plan: dry gangrene stable no acute intervention at this time Code(s): I96 - GANGRENE, NOT ELSEWHERE CLASSIFIED (7) HTN (hypertension) Assessment/Plan: stable c/w home medication Code(s): I10 - ESSENTIAL (PRIMARY) HYPERTENSION Qualifiers: Hypertension type: essential hypertension Qualified Code(s): I10 - Essential (primary) hypertension (8) Hyperkalemia Assessment/Plan: 2/2 ESRD dialysis tomorrow Code(s): E87.5 - HYPERKALEMIA (9) Hypothyroidism Assessment/Plan: c/w levothyroxine Code(s): E03.9 - HYPOTHYROIDISM, UNSPECIFIED (10) ICD (implantable cardioverter-defibrillator) in place Assessment/Plan: device interrogation Code(s): Z95.810 - PRESENCE OF AUTOMATIC (IMPLANTABLE) CARDIAC DEFIBRILLATOR (11) PVD (peripheral vascular disease) Assessment/Plan: stable dry gangrene of the left toe followed by vascular Code(s): I73.9 - PERIPHERAL VASCULAR DISEASE, UNSPECIFIED (12) Steal syndrome of dialysis vascular access Assessment/Plan: patient has a throbbing fistula arm size on the right smaller than the left follow with vascular Code(s): T82.898A - OTH COMPLICATION OF VASCULAR PROSTH DEV/GRFT, INIT Qualifiers: Encounter type: subsequent encounter Qualified Code(s): T82.898D - Other specified complication of vascular prosthetic devices, implants and grafts, subsequent encounter (13) Chronic HFrEF (heart failure with reduced ejection fraction) Assessment/Plan: stable not in acute decomepsated state c/w home medication Code(s): I50.22 - CHRONIC SYSTOLIC (CONGESTIVE) HEART FAILURE
[2018-04-06] MEDS ORDERED: ALBUTEROL SO4 0.083% IH SOL 2.5 MG/3 ML VIAL.NEB. NEB PRN (22:48)
[2018-04-07] MEDS ORDERED: GABAPENTIN 100 MG CAPSULE (FP) PO SCH (06:00)
[2018-04-07] MEDS: LEVOTHYROXINE NA 25 MCG TABLET (FP) PO SCH (06:20)
[2018-04-07] MEDS: INSULIN SLIDING SCALE (NOVOLOG) 1 VIAL SQ SCH ×4 (06:21→21:58)
[2018-04-07 08:38] LABS: BASO % 1.3 % (0-2.0); EOS % 3.4 % (0-4.5); HEMATOCRIT 29.8 % (35.4-49); HEMOGLOBIN 9.8 GM/dL (11.7-16.9); LYMPH % 16.1 % (8-40); MCH 29.9 pg (25.7-33.7); MEAN CELL VOLUME 90.6 fl (80-96); MONO % 9.4 % (3.8-10.2); NEUT % 69.8 % (42.8-82.8); PLATELET COUNT 184 K/MM3 (134-434); RBC 3.29 M/mm3 (4.00-5.60); RDW 20.6 % (11.9-15.9); WHITE BLOOD COUNT 7.8 K/mm3 (4.0-10.0)
[2018-04-07] MEDS ORDERED: PT OWN MED DRAWER 7, Y5N ONE ×2 (08:40→13:31)
[2018-04-07 08:49] LABS: INR 1.05 (0.82-1.09); PROTHROMBIN TIME (PATIENT) 11.9 SEC (9.7-13.0)
[2018-04-07 08:52] LABS: ACTIVATED PTT 28.7 SECONDS (25.2-36.5)
[2018-04-07 09:03] LABS: ALBUMIN 3.3 g/dl (3.4-5.0); ANION GAP 7 (8-16); BLOOD UREA NITROGEN 65 mg/dL (7-18); CHLORIDE 98 mmol/L (98-107); CHOLESTEROL 106 mg/dL (50-200); CO2 32 mmol/L (21-32); CREATININE 6.3 mg/dL (0.7-1.3); GLUCOSE,RANDOM 139 mg/dL (74-106); MAGNESIUM 1.6 mg/dL (1.8-2.4); SGOT/AST 25 U/L (15-37); SGPT/ALT 22 U/L (12-78); SODIUM 137 mmol/L (136-145); TRIGLYCERIDES 126 mg/dL (35-160)
[2018-04-07 09:05] LABS: ALK PHOS 124 U/L (45-117); BILIRUBIN,TOTAL 0.4 mg/dL (0.2-1.0); HDL CHOLESTEROL 44 mg/dL (40-60)
[2018-04-07 09:17] LABS: POTASSIUM 6.6 mmol/L (3.5-5.1)
[2018-04-07] MEDS: PANTOPRAZOLE 40 MG TABLET (FP) PO SCH (09:18)
[2018-04-07] MEDS: ASPIRIN 81 MG CHEWABLE TABLETS PO SCH (09:18)
[2018-04-07] MEDS: CALCIUM ACETATE 667 MG CAPSULE (FP) PO SCH ×3 (09:18→17:50)
[2018-04-07] MEDS: SACUBITRIL/VALSARTAN 49 MG-51 MG TABLET PO SCH ×2 (09:19→22:00)
--- NOTE | 2018-04-07 09:30 | EKG ---
Test Reason : Blood Pressure : / mmHG Vent. Rate : 080 BPM Atrial Rate : 080 BPM P-R Int : 230 ms QRS Dur : 090 ms QT Int : 398 ms P-R-T Axes : -16 005 113 degrees QTc Int : 459 ms Atrial-paced rhythm with prolonged AV conduction NONSPECIFIC ST AND T WAVE ABNORMALITY ABNORMAL ECG WHEN COMPARED WITH ECG OF 27-MAR-2018 11:34, NONSPECIFIC T WAVE ABNORMALITY HAS REPLACED INVERTED T WAVES IN LATERAL LEADS Confirmed by DORITA CONTEH MD ([id number]) on 04/07/2018 9:30:21 AM Referred By: Confirmed By:DORITA CONTEH MD
--- NOTE | 2018-04-07 11:46 | CON.NEP ---
Consult Consult Specialty:: Nephrology Reason for Consultation:: esrd - History of Present Illness Chief Complaint: fall History of Present Illness: This is a 72 y/o male patient with hx of CAD s/p 4 Vessel CABG 10 years ago, halfway resident, PVD with dry gangrene of the Left hallux, followed by vascular surgery, ESRD on DIalysis MWF via Right arm fistula, HTN, DL, HFrEF, atrial fibrillation not on anticoagulation due to massive GI bleed in june 2017 at [facility]. medtronic ICD, presented to the hospital for LOC, slurred speech. and shaking. patient family stated that the patients speech was different today after his LOC, but its is improving. patient is not a candidate for tPA due to missing the window for it also the major bleeding that the patient had in June that required him to be transfused. He just remember falling but nothing else. Says his right arm hurts as usual, Has tremors which he says started 2 days ago. 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 Cardio/Vascular: Yes: AFIB, CAD, CHF, HTN, Hyperlipdemia, [place], Mitral Insufficiency Gastrointestinal: Yes: GI Bleed Renal/: Yes: Renal Inusuff, Hemodialysis Psych: Yes: Anxiety Endocrine: Yes: Diabetes Mellitus - Past Surgical History Past Surgical History: Yes: AICD, AV Fistula/Graft, CABG - Alcohol/Substance Use Hx Alcohol Use: No - Smoking History Smoking history: Former smoker Have you smoked in the past 12 months: No Aproximately how many cigarettes per day: 5 If you are a former smoker, when did you quit?: 2004 Home Medications - Allergies Allergies/Adverse Reactions: Allergies Allergy/AdvReac Type Severity Reaction Status Date / Time No Known Allergies Allergy Verified 04/06/18 19:41 - Home Medications Home Medications: Ambulatory Orders Acetaminophen 650 mg PO Q4H PRN 02/28/18 Aspirin [ASA -] 81 mg PO DAILY 02/28/18 Atorvastatin Ca [Lipitor] 80 mg PO HS 02/28/18 Calcium Acetate [Phoslo -] 667 mg PO TIDCM 02/28/18 Clopidogrel Bisulfate [Plavix -] 75 mg PO DAILY 02/28/18 Insulin (LOG) Aspart [NovoLOG -] 0 units SQ TID PRN 02/28/18 Insulin Glargine,Hum.rec.anlog [Lantus] 16 unit SQ HS 02/28/18 Levothyroxine [Synthroid -] 25 mcg PO DAILY 02/28/18 Metoprolol Succinate [Toprol Xl] 150 mg PO DAILY 02/28/18 Pantoprazole Sodium 40 mg PO DAILY 02/28/18 Sennosides [Senna -] 1 tab PO HS 02/28/18 Sertraline HCl [Zoloft -] 50 mg PO HS 02/28/18 Heparin - 5,000 unit SQ BID #1 vial 03/10/18 Albuterol 0.083% Nebulizer Yessi [Ventolin 0.083% Nebulizer Soln -] 1 amp IN Q8H PRN 03/28/18 Gabapentin [Neurontin -] 100 mg PO TID #60 capsule 04/05/18 Sacubitril/Valsartan [Entresto 49 mg-51 mg Tablet] 1 tab PO BID #60 tablet 04/05 Review of Systems - Review of Systems Constitutional: reports: Lethargy Eyes: reports: No Symptoms HENT: reports: No Symptoms Neck: reports: No Symptoms Cardiovascular: reports: No Symptoms Respiratory: reports: No Symptoms Gastrointestinal: reports: No Symptoms Genitourinary: reports: No Symptoms Musculoskeletal: reports: No Symptoms Integumentary: reports: No Symptoms Neurological: reports: Confusion, Tremors Endocrine: reports: No Symptoms Hematology/Lymphatic: reports: No Symptoms Psychiatric: reports: No Symptoms Nephrology Consult - Height Height: 5 ft 9 in - Weight Weight: 151 lb - BMI Body Mass Index (BMI): 22.3 - Lab Results CBC,BMP: CBC, BMP 04/07/18 08:15 04/07/18 08:15 Anion Gap: Anion Gap Anion Gap 7 (8-16) L 04/07/18 08:15 - Imaging Chest X-ray: Report Reviewed - Physical Examination Vital Signs: Vital Signs Temperature 98.1 F 04/07/18 10:00 Pulse Rate 79 04/07/18 10:00 Respiratory Rate 22 04/07/18 10:00 Blood Pressure 140/98 04/07/18 10:00 O2 Sat by Pulse Oximetry (%) 96 04/07/18 10:00 Constitutional: Yes: No Distress, Calm Eyes: Yes: Conjunctiva Clear, EOM Intact HENT: Yes: Atraumatic, Normocephalic Neck: Yes: Supple, Trachea Midline Cardiovascular: Yes: Pulse Irregular Respiratory: Yes: Rales Gastrointestinal: Yes: Normal Bowel Sounds Renal/: Yes: WNL Access for Hemodialysis: AV Graft Musculoskeletal: Yes: WNL Extremities: Yes: Cyanosis (left hallux) Edema: No Integumentary: Yes: Other (dry gangrene of hallux) Neurological: Yes: Alert, Oriented, Tremors Assessment/Plan IMPRESSION ESRD CAD HTN AMS myoclonic jerks maybe worsened by gabapentin hyperkalemia PLAN will dialyze today and hopefully this will help him needs vascular surgery fopllow up of his right arm pain- ?POSSIBLE STEAL hold gabapentin for now MV
[2018-04-07] MEDS ORDERED: HEPARIN NA (PORCINE) 5,000 UNITS/ML 1ML VIAL IVPUSH ONE (11:52)
[2018-04-07] MEDS ORDERED: EPOETIN ALFA 2,000 UNIT/1 ML VIAL IVPUSH ONE (11:52)
[2018-04-07] MEDS ORDERED: SODIUM CHLORIDE 250 ML IV PRN (14:03)
--- NOTE | 2018-04-07 14:20 | PN ---
Progress Note, Physician History of Present Illness: 72-year-old male, with h/o severe ischemic dilated cardiomyopathy with recent admission for failure and d/kaia 04/05/2018, h/o (Medtronic) ICD, former smoker, COPD, CAD s/p CT, CABG x 4, hypertensive cardiomyopathy, hyperlipidemia, PVD, dry gangrene to L great toe, s/p recent angioplasty w/ stent to Lt SFA on DAPT, ESRD on HD via RUE access with steal syndrome planned for elective angiogram, anemia of chronic kidney disease, hypothyroidism, GI bleed presented to the hospital for lethargy, slurred speech. and shaking. Patient's family stated that the patients speech was different today after his LOC, but its is improving , moving all 4 extremities. Patient is not a candidate for tPA due to missing the window for it also the major bleeding that the patient had in June that required him to be transfused. He is undergoing HD. - Current Medication List Current Medications: Active Medications Acetaminophen/Codeine Phosphate (Tylenol # 3 -) 1 tab PO Q8H PRN PRN Reason: PAIN LEVEL 6-10 Albuterol Sulfate (Ventolin 0.083% Nebulizer Soln -) 1 amp NEB Q8H PRN PRN Reason: Dyspnea Aspirin (Asa -) 81 mg PO DAILY [facility] Last Admin: 04/07/18 09:18 Dose: 81 mg Atorvastatin Calcium (Lipitor -) 80 mg PO HS [facility] Calcium Acetate (Phoslo -) 667 mg PO TIDCM [facility] Last Admin: 04/07/18 12:28 Dose: 667 mg Gabapentin (Neurontin -) 100 mg PO DAILY [facility] Sodium Chloride (Normal Saline -) 250 mls @ 3,000 mls/hr IV PRN PRN PRN Reason: Hypotension during Dialysis Stop: 04/08/18 14:02 Insulin Aspart (Novolog Vial Sliding Scale -) 1 vial SQ [facility]; Protocol Last Admin: 04/07/18 12:28 Dose: Not Given Insulin Detemir (Levemir Vial) 10 units SQ HS [facility] Levothyroxine Sodium (Synthroid -) 25 mcg PO DAILY@0700 [facility] Last Admin: 04/07/18 06:20 Dose: 25 mcg Metoprolol Succinate (Toprol Xl -) 150 mg PO DAILY [facility] Last Admin: 04/07/18 11:23 Dose: Not Given Pantoprazole Sodium (Protonix -) 40 mg PO DAILY [facility] Last Admin: 04/07/18 09:18 Dose: 40 mg Sacubitril/Valsartan (Entresto 49 Mg-51 Mg Tablet) 1 tab PO BID [facility] Last Admin: 04/07/18 09:19 Dose: 1 tab Senna (Senna -) 1 tab PO [facility] Sertraline HCl (Zoloft -) 50 mg PO HS [facility] - Objective Vital Signs: Vital Signs Temperature 98.2 F 04/07/18 13:30 Pulse Rate 81 04/07/18 14:05 Respiratory Rate 18 04/07/18 14:05 Blood Pressure 133/63 04/07/18 14:05 O2 Sat by Pulse Oximetry (%) 96 04/07/18 10:00 Constitutional: Yes: No Distress, Calm, Thin Neck: Yes: Supple Cardiovascular: Yes: Regular Rate and Rhythm Respiratory: Yes: Regular, Diminished, On Nasal O2 Gastrointestinal: Yes: Normal Bowel Sounds, Soft Edema: No Labs: CBC, BMP 04/07/18 08:15 04/07/18 08:15 INR, PTT INR 1.05 (0.82-1.09) 04/07/18 08:15 - ....Imaging Chest X-ray: Report Reviewed (Improved) EKG: Report Reviewed (A-paced @ 80) Problem List - Problems (1) Altered mental status Code(s): R41.82 - ALTERED MENTAL STATUS, UNSPECIFIED Qualifiers: Altered mental status type: unspecified Qualified Code(s): R41.82 - Altered mental status, unspecified (2) Chronic HFrEF (heart failure with reduced ejection fraction) Code(s): I50.22 - CHRONIC SYSTOLIC (CONGESTIVE) HEART FAILURE (3) ESRD (end stage renal disease) Code(s): N18.6 - END STAGE RENAL DISEASE (4) Slurred speech Code(s): R47.81 - SLURRED SPEECH (5) ASHD (arteriosclerotic heart disease) Code(s): I25.10 - ATHSCL HEART DISEASE OF [place] CORONARY ARTERY W/O ANG PCTRS (6) CHF (congestive heart failure), NYHA class IV Code(s): I50.9 - HEART FAILURE, UNSPECIFIED Qualifiers: Congestive heart failure type: combined Congestive heart failure chronicity : chronic Qualified Code(s): I50.42 - Chronic combined systolic (congestive) and diastolic (congestive) heart failure (7) Diabetes Code(s): E11.9 - TYPE 2 DIABETES MELLITUS WITHOUT COMPLICATIONS Qualifiers: Diabetes mellitus type: type 2 Diabetes mellitus group home insulin use: without group home use Diabetes mellitus complication status: with neurologic complications (8) HTN (hypertension) Code(s): I10 - ESSENTIAL (PRIMARY) HYPERTENSION Qualifiers: Hypertension type: essential hypertension Qualified Code(s): I10 - Essential (primary) hypertension (9) Hyperkalemia Code(s): E87.5 - HYPERKALEMIA (10) Hypothyroidism Code(s): E03.9 - HYPOTHYROIDISM, UNSPECIFIED Qualifiers: Hypothyroidism type: unspecified Qualified Code(s): E03.9 - Hypothyroidism , unspecified (11) ICD (implantable cardioverter-defibrillator) in place Code(s): Z95.810 - PRESENCE OF AUTOMATIC (IMPLANTABLE) CARDIAC DEFIBRILLATOR (12) PVD (peripheral vascular disease) Code(s): I73.9 - PERIPHERAL VASCULAR DISEASE, UNSPECIFIED (13) S/P CABG (coronary artery bypass graft) Code(s): Z95.1 - PRESENCE OF AORTOCORONARY BYPASS GRAFT (14) S/P peripheral artery angioplasty with stent placement Code(s): Z95.820 - PERIPHERAL VASCULAR ANGIOPLASTY STATUS W IMPLANTS AND GRAFTS (15) Steal syndrome of dialysis vascular access Code(s): T82.898A - OTH COMPLICATION OF VASCULAR PROSTH DEV/GRFT, INIT Qualifiers: Encounter type: subsequent encounter Qualified Code(s): T82.898D - Other specified complication of vascular prosthetic devices, implants and grafts, subsequent encounter (16) Anemia Code(s): D64.9 - ANEMIA, UNSPECIFIED Qualifiers: Anemia type: due to chronic kidney disease Chronic kidney disease stage: on chronic dialysis Qualified Code(s): N18.6 - End stage renal disease; D63.1 - Anemia in chronic kidney disease; Z99.2 - Dependence on renal dialysis (17) Ischemic dilated cardiomyopathy Code(s): I25.5 - ISCHEMIC CARDIOMYOPATHY; I42.0 - DILATED CARDIOMYOPATHY Assessment/Plan 03/01/2018 Echo: Normal LV size with severely decreased LV fxn, mild TR, tr MR, pleural efusion 1. Altered mental status likely medication (gabapentin-related), r/o stroke 2. Chronic Systolic Heart Failure referable to ischemic dilated cardiomyopathy/ severe LV systolic dysfunction with left effusion 3. CAD post remote CT post CABG angina pectoris, stable 4. Post prophylactic ICD implant (Medtronic's device) 5. HTN 6. IDDM 7. Hypercholesterolemia 8. PAD with left toe gangrene s/p aortogram, LLE angiogram, SFA atherectomy, DCB SFA angioplasty, with sfa stent 9. ESRD on HD, right AVG with steal and hyperkalemia 10. Anemia of CKD 11. Hypothyroidism 12. Altered mental status, myoclonic jerks maybe worsened by gabapentin 13. H/o GI bleed PLAN: 1. HD per nephrology, d/c neurontin and monitor mental status 2. Interrogate pacer, eval for PAF, no previous history I saw in [place] records, monitor telemetry 3. Continue Toprol XL 100 qd 3. Resume Entresto 49/51 bid once hyperkalemia resolves 4. Continue ASA 81 qd and resume Plavix 75 qd 5. Continue Lipitor 20 qhs 6. DVT and GI prophylaxis, encourage ambulation 7. Elective right arm angiogram and DRIL procedure, may proceed from CV- standpoint 8. Thank you for consultative opportunity
--- NOTE | 2018-04-07 14:28 | PN ---
Progress Note, Physician History of Present Illness: pt seen/ examined chart reviewed events noted currently being dialized lethargic but arousable moves all extremities - Current Medication List Current Medications: Active Medications Acetaminophen/Codeine Phosphate (Tylenol # 3 -) 1 tab PO Q8H PRN PRN Reason: PAIN LEVEL 6-10 Albuterol Sulfate (Ventolin 0.083% Nebulizer Soln -) 1 amp NEB Q8H PRN PRN Reason: Dyspnea Aspirin (Asa -) 81 mg PO DAILY [facility] Last Admin: 04/07/18 09:18 Dose: 81 mg Atorvastatin Calcium (Lipitor -) 80 mg PO HS [facility] Calcium Acetate (Phoslo -) 667 mg PO TIDCM [facility] Last Admin: 04/07/18 12:28 Dose: 667 mg Gabapentin (Neurontin -) 100 mg PO DAILY [facility] Sodium Chloride (Normal Saline -) 250 mls @ 3,000 mls/hr IV PRN PRN PRN Reason: Hypotension during Dialysis Stop: 04/08/18 14:02 Insulin Aspart (Novolog Vial Sliding Scale -) 1 vial SQ [facility]; Protocol Last Admin: 04/07/18 12:28 Dose: Not Given Insulin Detemir (Levemir Vial) 10 units SQ [facility] Levothyroxine Sodium (Synthroid -) 25 mcg PO DAILY@0700 [facility] Last Admin: 04/07/18 06:20 Dose: 25 mcg Metoprolol Succinate (Toprol Xl -) 150 mg PO DAILY [facility] Last Admin: 04/07/18 11:23 Dose: Not Given Pantoprazole Sodium (Protonix -) 40 mg PO DAILY [facility] Last Admin: 04/07/18 09:18 Dose: 40 mg Sacubitril/Valsartan (Entresto 49 Mg-51 Mg Tablet) 1 tab PO BID [facility] Last Admin: 04/07/18 09:19 Dose: 1 tab Senna (Senna -) 1 tab PO [facility] Sertraline HCl (Zoloft -) 50 mg PO [facility] - Objective Vital Signs: Vital Signs Temperature 98.2 F 04/07/18 13:30 Pulse Rate 81 04/07/18 14:05 Respiratory Rate 18 04/07/18 14:05 Blood Pressure 133/63 04/07/18 14:05 O2 Sat by Pulse Oximetry (%) 96 04/07/18 10:00 Constitutional: Yes: No Distress Neck: Yes: Supple Cardiovascular: Yes: Regular Rate and Rhythm Respiratory: Yes: Diminished Gastrointestinal: Yes: Soft Wound/Incision: Yes: Other (left toe-- dry gangrene) Neurological: Yes: Other (lethargic but arousable) Labs: CBC, BMP 04/07/18 08:15 04/07/18 08:15 INR, PTT INR 1.05 (0.82-1.09) 04/07/18 08:15 Problem List - Problems (1) Altered mental status Code(s): R41.82 - ALTERED MENTAL STATUS, UNSPECIFIED (2) Chronic HFrEF (heart failure with reduced ejection fraction) Code(s): I50.22 - CHRONIC SYSTOLIC (CONGESTIVE) HEART FAILURE (3) ESRD (end stage renal disease) Code(s): N18.6 - END STAGE RENAL DISEASE (4) Slurred speech Code(s): R47.81 - SLURRED SPEECH (5) ASHD (arteriosclerotic heart disease) Code(s): I25.10 - ATHSCL HEART DISEASE OF [place] CORONARY ARTERY W/O ANG PCTRS (6) Anemia Code(s): D64.9 - ANEMIA, UNSPECIFIED Qualifiers: Anemia type: due to chronic kidney disease Chronic kidney disease stage: on chronic dialysis Qualified Code(s): N18.6 - End stage renal disease; D63.1 - Anemia in chronic kidney disease; Z99.2 - Dependence on renal dialysis (7) CHF (congestive heart failure), NYHA class IV Code(s): I50.9 - HEART FAILURE, UNSPECIFIED Qualifiers: Congestive heart failure type: combined Congestive heart failure chronicity : acute on chronic Qualified Code(s): I50.43 - Acute on chronic combined systolic (congestive) and diastolic (congestive) heart failure (8) Diabetes Code(s): E11.9 - TYPE 2 DIABETES MELLITUS WITHOUT COMPLICATIONS Qualifiers: Diabetes mellitus type: type 2 Diabetes mellitus terminal operations supervisor insulin use: without usp use Diabetes mellitus complication status: with neurologic complications (9) Gangrene Code(s): I96 - GANGRENE, NOT ELSEWHERE CLASSIFIED (10) Hyperkalemia Code(s): E87.5 - HYPERKALEMIA (11) ICD (implantable cardioverter-defibrillator) in place Code(s): Z95.810 - PRESENCE OF AUTOMATIC (IMPLANTABLE) CARDIAC DEFIBRILLATOR (12) PVD (peripheral vascular disease) Code(s): I73.9 - PERIPHERAL VASCULAR DISEASE, UNSPECIFIED (13) S/P CABG (coronary artery bypass graft) Code(s): Z95.1 - PRESENCE OF AORTOCORONARY BYPASS GRAFT (14) S/P peripheral artery angioplasty with stent placement Code(s): Z95.820 - PERIPHERAL VASCULAR ANGIOPLASTY STATUS W IMPLANTS AND GRAFTS (15) Steal syndrome of dialysis vascular access Code(s): T82.898A - [facility] COMPLICATION OF VASCULAR PROSTH DEV/GRFT, INIT Qualifiers: Encounter type: subsequent encounter Qualified Code(s): T82.898D - Other specified complication of vascular prosthetic devices, implants and grafts, subsequent encounter Assessment/Plan In summary Pt 72 y/o male -- with hx of CAD s/p 4 Vessel CABG 10 years ago, , PVD with dry gangrene of the Left first toe, ESRD on Dialysis MWF via Right arm fistula, HTN, hyperlipidemia, atrial fibrillation not on anticoagulation due to massive GI bleed in june 2017 at [facility]. s/p ICD, presented to the hospital for LOC, slurred speech. and shaking. Pt improved Admitted to tele being dialized meds reviewed continue present care ct head -ve neuro to follow monitor bgm physical therapy overall condition gaurded due to multiple comorbidities tylenol # 3 for pain in foot agree with decreasing neurontin will follow cardiology to follow monitor on tele Discussed with nursing staff cc time 45 min
--- NOTE | 2018-04-07 21:41 | CONSULT ---
Consult - text type - Consultation Consultation Note: NEUROLOGY CONSULTATION is greatly appreciated: [facility] 72 [facility] h/o HTN, DM, Chol, Anemia; Hypothyroidism, ASHD, s/p CABG, s/p PPM, CHF due to severe dilated cardiomyopathy, and PVD, is s/p left leg angioplasty and stent. Apparently awake , alert and well-oriented at baseline. Maintained on: Acetaminophen; Aspirin (81 mg); Atorvastatin: Phoslo; Clopidogrel ; Insulin; Levothyroxine; Metoprolol; Pantoprazole; Sertraline; Heparin; Albuterol: Gabapentin (100 mg PO TID: and Sacubitril/Valsartan. Pt complains of Numbness, tingling and "deep pain in the bones" of the distal right forearm, wrist and hand since his AV fitula was placed a few months ago. The pain comes and goes "in waves" and can awaken him from sleep. Admitted from the [place] with decreased responsiveness and with involuntary shaking movements R>L. CT of brain (reviewed): Normal study. H/H=08/07 MEHDI: Thin, No bruits. AV fistula right arm. PPM left chest. Left great toe gangrene. Normal pulses right arm. Right hand warm and well perfused. NEURO: Awake, alert. Withdrawn, depressed. MS/speech: Normal CN II-XII: normal Motor: No drift. Gives on Formal testing of the right arm and hand but Normal KARLO's. Normal reflexes in the arms and knees. Absent AJ's. Downgoing toes. Episodic Myoclonic jerks, B/L. No cogwheeling, BUT KARLO's induce a jaw tdremor and periodic mov'ts of the right foot/toes. Coord: No FTN dystaxia Sensory: Normal in the right hand. Vibration reduced both feet to the ankle. Gait: Not tested. IMP: No evidence for CVA. Cannot exclude new-onset seizure but suspect description was of Myoclonus (described above) related to uremia. The biggest problem is Causalgic pain in the right arm and hand ( possibly associated with a mov't disorder). This may represent Restless Limbs Syndrome (RLS) which can be seen in >60% of patients on HD and is also associated with anemia. SUGGEST: Check B12, TSH, T4, Fe++, TIBC, Ferritin Try Pramipexole 0.125 mg PO q 8hrs x 2 days then 0.25 mg PO q 8Hrs. OT to mobilize the right arm. Thank you very much, Tylor Eastman MD
[2018-04-07] MEDS: INSULIN (LEVEMIR) 100 UNITS/ML UNITS SQ SCH (21:57)
[2018-04-07] MEDS: SERTRALINE HCL 25 MG TABLET (FP) PO SCH (21:58)
[2018-04-07] MEDS: SENNOSIDES 8.6MG TABLET (FP) PO SCH (21:58)
[2018-04-07] MEDS: ATORVASTATIN CA 20 MG TABLET (FP) PO SCH (21:58)
[2018-04-07] MEDS ORDERED: ATORVASTATIN CA 80 MG TABLET (FP) PO SCH (22:00)
[2018-04-07] MEDS: PRAMIPEXOLE DIHYDROCHLORIDE 0.125 MG TABLET PO SCH (22:31)
[2018-04-07] MEDS: ACETAMINOPHEN WITH CODEINE 300MG/30MG TABLET PO PRN (22:36)
[2018-04-08] MEDS: PRAMIPEXOLE DIHYDROCHLORIDE 0.125 MG TABLET PO SCH ×3 (06:17→21:31)
[2018-04-08] MEDS: LEVOTHYROXINE NA 25 MCG TABLET (FP) PO SCH (06:17)
[2018-04-08] MEDS: INSULIN SLIDING SCALE (NOVOLOG) 1 VIAL SQ SCH ×4 (06:18→21:52)
[2018-04-08] MEDS ORDERED: PT OWN MED DRAWER 7, Y5N ONE (08:59)
[2018-04-08] MEDS: ASPIRIN 81 MG CHEWABLE TABLETS PO SCH (09:44)
[2018-04-08] MEDS: CLOPIDOGREL BISULFATE 75 MG TABLET (FP) PO SCH (09:44)
[2018-04-08] MEDS: PANTOPRAZOLE 40 MG TABLET (FP) PO SCH (09:44)
[2018-04-08] MEDS: CALCIUM ACETATE 667 MG CAPSULE (FP) PO SCH ×3 (09:44→17:56)
[2018-04-08] MEDS: GABAPENTIN 100 MG CAPSULE (FP) PO SCH (09:44)
[2018-04-08] MEDS: SACUBITRIL/VALSARTAN 49 MG-51 MG TABLET PO SCH ×2 (09:44→21:31)
--- NOTE | 2018-04-08 11:28 | PN ---
Progress Note (short form) - Note Progress Note: RENAL Pt is awake and alert says he feels better less myoclonic jerks Last Vital Signs Temp Pulse Resp BP Pulse Ox 99.0 F 80 22 129/47 95 04/08/18 10:00 04/08/18 10:00 04/08/18 10:00 04/08/18 10:00 04/08/18 10:00 lungs decreased breath sound sbilaterally cvs s1s2 rr abd soft ext no edema neuro a+ox3 CBC, BMP 04/07/18 08:15 04/07/18 08:15 Current Medications Generic Name Dose Route Start Last Admin Trade Name Freq PRN Reason Stop Dose Admin Acetaminophen/Codeine Phosphate 1 tab 04/07/18 14:17 04/07/18 22:36 Tylenol # 3 - PO 1 tab Q8H PRN Administration PAIN LEVEL 6-10 Albuterol Sulfate 1 amp 04/06/18 22:48 Ventolin 0.083% Nebulizer Soln - NEB Q8H PRN Dyspnea Aspirin 81 mg 04/07/18 10:00 04/08/18 09:44 Asa - PO 81 mg DAILY [facility] Administration Atorvastatin Calcium 20 mg 04/07/18 22:00 04/07/18 21:58 Lipitor - PO 20 mg HS [facility] Administration Calcium Acetate 667 mg 04/07/18 08:00 04/08/18 09:44 Phoslo - PO 667 mg TIDCM [facility] Administration Clopidogrel Bisulfate 75 mg 04/08/18 10:00 04/08/18 09:44 Plavix - PO 75 mg DAILY [facility] Administration Gabapentin 100 mg 04/08/18 10:00 04/08/18 09:44 Neurontin - PO 100 mg DAILY [facility] Administration Sodium Chloride 250 mls @ 3,000 mls/hr 04/07/18 14:03 Normal Saline - IV 04/08/18 14:02 PRN PRN Hypotension during Dialysis Insulin Aspart 1 vial 04/07/18 07:00 04/08/18 06:18 Novolog Vial Sliding Scale - SQ Not Given [facility]S [facility] Protocol Insulin Detemir 10 units 04/07/18 22:00 04/07/18 21:57 Levemir Vial SQ 10 units HS [facility] Administration Levothyroxine Sodium 25 mcg 04/07/18 07:00 04/08/18 06:17 Synthroid - PO 25 mcg DAILY@0700 [facility] Administration Metoprolol Succinate 100 mg 04/07/18 14:45 04/08/18 09:44 Toprol Xl - PO 100 mg DAILY [facility] Administration Pantoprazole Sodium 40 mg 04/07/18 10:00 04/08/18 09:44 Protonix - PO 40 mg DAILY [facility] Administration Pramipexole Dihydrochloride 0.125 mg 04/07/18 22:00 04/08/18 06:17 Mirapex - PO 0.125 mg TID [facility] Administration Sacubitril/Valsartan 1 tab 04/07/18 10:00 04/08/18 09:44 Entresto 49 Mg-51 Mg Tablet PO 1 tab BID [facility] Administration Senna 1 tab 04/07/18 22:00 04/07/18 21:58 Senna - PO 1 tab HS [facility] Administration Sertraline HCl 50 mg 04/07/18 22:00 04/07/18 21:58 Zoloft - PO 50 mg HS [facility] Administration IMPRESSION ESRD CHF myoclonic jerks better hyperkalemia likely imprved with hd PLAN monitor on current management redialyze in 2 days If persistenly hyperkalemic, discuss low k diet and consider stopping entresto MV
--- NOTE | 2018-04-08 12:40 | PN ---
Progress Note, Physician History of Present Illness: Mental status resolved to baseline, denies chest pain or dyspnea. Myoclonic jerks improved with HD. - Current Medication List Current Medications: Active Medications Acetaminophen/Codeine Phosphate (Tylenol # 3 -) 1 tab PO Q8H PRN PRN Reason: PAIN LEVEL 6-10 Last Admin: 04/07/18 22:36 Dose: 1 tab Albuterol Sulfate (Ventolin 0.083% Nebulizer Soln -) 1 amp NEB Q8H PRN PRN Reason: Dyspnea Aspirin (Asa -) 81 mg PO DAILY [facility] Last Admin: 04/08/18 09:44 Dose: 81 mg Atorvastatin Calcium (Lipitor -) 20 mg PO HS [facility] Last Admin: 04/07/18 21:58 Dose: 20 mg Calcium Acetate (Phoslo -) 667 mg PO TIDCM [facility] Last Admin: 04/08/18 09:44 Dose: 667 mg Clopidogrel Bisulfate (Plavix -) 75 mg PO DAILY [facility] Last Admin: 04/08/18 09:44 Dose: 75 mg Gabapentin (Neurontin -) 100 mg PO DAILY [facility] Last Admin: 04/08/18 09:44 Dose: 100 mg Sodium Chloride (Normal Saline -) 250 mls @ 3,000 mls/hr IV PRN PRN PRN Reason: Hypotension during Dialysis Stop: 04/08/18 14:02 Insulin Aspart (Novolog Vial Sliding Scale -) [address] [facility]; Protocol Last Admin: 04/08/18 06:18 Dose: Not Given Insulin Detemir (Levemir Vial) 10 units SQ [facility] Last Admin: 04/07/18 21:57 Dose: 10 units Levothyroxine Sodium (Synthroid -) 25 mcg PO DAILY@0700 [facility] Last Admin: 04/08/18 06:17 Dose: 25 mcg Metoprolol Succinate (Toprol Xl -) 100 mg PO DAILY [facility] Last Admin: 04/08/18 09:44 Dose: 100 mg Pantoprazole Sodium (Protonix -) 40 mg PO DAILY [facility] Last Admin: 04/08/18 09:44 Dose: 40 mg Pramipexole Dihydrochloride (Mirapex -) 0.125 mg PO TID [facility] Last Admin: 04/08/18 06:17 Dose: 0.125 mg Sacubitril/Valsartan (Entresto 49 Mg-51 Mg Tablet) 1 tab PO BID [facility] Last Admin: 04/08/18 09:44 Dose: 1 tab Senna (Senna -) 1 tab PO [facility] Last Admin: 04/07/18 21:58 Dose: 1 tab Sertraline HCl (Zoloft -) 50 mg PO [facility] Last Admin: 04/07/18 21:58 Dose: 50 mg - Objective Vital Signs: Vital Signs Temperature 99.0 F 04/08/18 10:00 Pulse Rate 80 04/08/18 10:00 Respiratory Rate 22 04/08/18 10:00 Blood Pressure 129/47 04/08/18 10:00 O2 Sat by Pulse Oximetry (%) 95 04/08/18 10:00 Constitutional: Yes: No Distress, Calm, Thin Neck: Yes: Supple Cardiovascular: Yes: Regular Rate and Rhythm Respiratory: Yes: Regular, Diminished Gastrointestinal: Yes: Normal Bowel Sounds, Soft Edema: No Labs: CBC, BMP 04/07/18 08:15 04/07/18 08:15 INR, PTT INR 1.05 (0.82-1.09) 04/07/18 08:15 Problem List - Problems (1) Altered mental status Code(s): R41.82 - ALTERED MENTAL STATUS, UNSPECIFIED Qualifiers: Altered mental status type: unspecified Qualified Code(s): R41.82 - Altered mental status, unspecified (2) Chronic HFrEF (heart failure with reduced ejection fraction) Code(s): I50.22 - CHRONIC SYSTOLIC (CONGESTIVE) HEART FAILURE (3) ESRD (end stage renal disease) Code(s): N18.6 - END STAGE RENAL DISEASE (4) Slurred speech Code(s): R47.81 - SLURRED SPEECH (5) ASHD (arteriosclerotic heart disease) Code(s): I25.10 - ATHSCL HEART DISEASE OF [place] CORONARY ARTERY W/O ANG PCTRS (6) CHF (congestive heart failure), NYHA class IV Code(s): I50.9 - HEART FAILURE, UNSPECIFIED Qualifiers: Congestive heart failure type: combined Congestive heart failure chronicity : chronic Qualified Code(s): I50.42 - Chronic combined systolic (congestive) and diastolic (congestive) heart failure (7) Diabetes Code(s): E11.9 - TYPE 2 DIABETES MELLITUS WITHOUT COMPLICATIONS Qualifiers: Diabetes mellitus type: type 2 Diabetes mellitus mounting inspector insulin use: without mounting inspector use Diabetes mellitus complication status: with neurologic complications (8) HTN (hypertension) Code(s): I10 - ESSENTIAL (PRIMARY) HYPERTENSION Qualifiers: Hypertension type: essential hypertension Qualified Code(s): I10 - Essential (primary) hypertension (9) Hyperkalemia Code(s): E87.5 - HYPERKALEMIA (10) Hypothyroidism Code(s): E03.9 - HYPOTHYROIDISM, UNSPECIFIED Qualifiers: Hypothyroidism type: unspecified Qualified Code(s): E03.9 - Hypothyroidism , unspecified (11) ICD (implantable cardioverter-defibrillator) in place Code(s): Z95.810 - PRESENCE OF AUTOMATIC (IMPLANTABLE) CARDIAC DEFIBRILLATOR (12) PVD (peripheral vascular disease) Code(s): I73.9 - PERIPHERAL VASCULAR DISEASE, UNSPECIFIED (13) S/P CABG (coronary artery bypass graft) Code(s): Z95.1 - PRESENCE OF AORTOCORONARY BYPASS GRAFT (14) S/P peripheral artery angioplasty with stent placement Code(s): Z95.820 - PERIPHERAL VASCULAR ANGIOPLASTY STATUS W IMPLANTS AND GRAFTS (15) Steal syndrome of dialysis vascular access Code(s): T82.898A - OTH COMPLICATION OF VASCULAR PROSTH DEV/GRFT, INIT Qualifiers: Encounter type: subsequent encounter Qualified Code(s): T82.898D - Other specified complication of vascular prosthetic devices, implants and grafts, subsequent encounter (16) Anemia Code(s): D64.9 - ANEMIA, UNSPECIFIED Qualifiers: Anemia type: due to chronic kidney disease Chronic kidney disease stage: on chronic dialysis Qualified Code(s): N18.6 - End stage renal disease; D63.1 - Anemia in chronic kidney disease; Z99.2 - Dependence on renal dialysis (17) Ischemic dilated cardiomyopathy Code(s): I25.5 - ISCHEMIC CARDIOMYOPATHY; I42.0 - DILATED CARDIOMYOPATHY Assessment/Plan 03/01/2018 Echo: Normal LV size with severely decreased LV fxn, mild TR, tr MR, pleural efusion 1. Altered mental status resolved, unlikely stroke, myoclonic jerks 2/2 uremia improved 2. Chronic Systolic Heart Failure referable to ischemic dilated cardiomyopathy/ severe LV systolic dysfunction with left effusion 3. CAD post remote [place] post CABG angina pectoris, stable 4. Post prophylactic ICD implant ([employer]'s device) 5. HTN 6. IDDM 7. Hypercholesterolemia 8. PAD with left toe gangrene s/p aortogram, LLE angiogram, SFA atherectomy, DCB SFA angioplasty, with sfa stent 9. ESRD on HD, right AVG with steal and hyperkalemia 10. Anemia of CKD 11. Hypothyroidism 12. Altered mental status, myoclonic jerks maybe worsened by gabapentin or uremia 13. H/o GI bleed PLAN: 1. HD per nephrology, monitor mental status, placed on Mirapex 2. ICD interrogation showed no episodes of AT or AF, no previous history I saw in [place] records, monitor telemetry 3. Continue Toprol XL 100 qd 4. Continue Entresto 49/51 bid if hyperkalemia improves 5. Continue ASA 81 qd and Plavix 75 qd 6. Continue Lipitor 20 qhs 7. DVT and GI prophylaxis, encourage ambulation 8. Elective right arm angiogram and DRIL procedure, may proceed from CV- standpoint
--- NOTE | 2018-04-08 13:53 | PN ---
Progress Note (short form) - Note Progress Note: pt feels much better mental status back to baseline jerks/ pain better all consults/ f/u s noted and appreciated. Vital Signs Temp 99.0 F 04/08/18 10:00 Pulse 80 04/08/18 10:00 Resp 22 04/08/18 10:00 BP 129/47 04/08/18 10:00 Pulse Ox 95 04/08/18 10:00 Intake & Output 04/07/18 04/08/18 04/08/18 23:59 11:59 23:59 Intake Total 250 160 Output Total 200 Balance 250 -40 Weight 143 lb Intake: Oral 250 160 Output: Urine 200 Void 200 Other: Voiding Method Urinal Urinal Bowel Movement No No Weight Measurement Method Standing Scale Active Medications Acetaminophen/Codeine Phosphate (Tylenol # 3 -) 1 tab PO Q8H PRN PRN Reason: PAIN LEVEL 6-10 Last Admin: 04/07/18 22:36 Dose: 1 tab Albuterol Sulfate (Ventolin 0.083% Nebulizer Soln -) 1 amp NEB Q8H PRN PRN Reason: Dyspnea Aspirin (Asa -) 81 mg PO DAILY [facility] Last Admin: 04/08/18 09:44 Dose: 81 mg Atorvastatin Calcium (Lipitor -) 20 mg PO HS [facility] Last Admin: 04/07/18 21:58 Dose: 20 mg Calcium Acetate (Phoslo -) 667 mg PO TIDCM [facility] Last Admin: 04/08/18 09:44 Dose: 667 mg Clopidogrel Bisulfate (Plavix -) 75 mg PO DAILY [facility] Last Admin: 04/08/18 09:44 Dose: 75 mg Gabapentin (Neurontin -) 100 mg PO DAILY [facility] Last Admin: 04/08/18 09:44 Dose: 100 mg Sodium Chloride (Normal Saline -) 250 mls @ 3,000 mls/hr IV PRN PRN PRN Reason: Hypotension during Dialysis Stop: 04/08/18 14:02 Insulin Aspart (Novolog Vial Sliding Scale -) 1 vial SQ [facility]; Protocol Last Admin: 04/08/18 06:18 Dose: Not Given Insulin Detemir (Levemir Vial) 10 units SQ [facility] Last Admin: 04/07/18 21:57 Dose: 10 units Levothyroxine Sodium (Synthroid -) 25 mcg PO DAILY@0700 [facility] Last Admin: 04/08/18 06:17 Dose: 25 mcg Metoprolol Succinate (Toprol Xl -) 100 mg PO DAILY [facility] Last Admin: 04/08/18 09:44 Dose: 100 mg Pantoprazole Sodium (Protonix -) 40 mg PO DAILY [facility] Last Admin: 04/08/18 09:44 Dose: 40 mg Pramipexole Dihydrochloride (Mirapex -) 0.125 mg PO TID [facility] Last Admin: 04/08/18 06:17 Dose: 0.125 mg Sacubitril/Valsartan (Entresto 49 Mg-51 Mg Tablet) 1 tab PO BID [facility] Last Admin: 04/08/18 09:44 Dose: 1 tab Senna (Senna -) 1 tab PO HS [facility] Last Admin: 04/07/18 21:58 Dose: 1 tab Sertraline HCl (Zoloft -) 50 mg PO HS [facility] Last Admin: 04/07/18 21:58 Dose: 50 mg CBC, BMP 04/07/18 08:15 04/07/18 08:15 Microbiology 04/06/18 21:02 Urine Culture - Final Urine - Urine Clean Catch NO GROWTH OBTAINED 04/06/18 20:08 Blood Culture - Preliminary Blood - Peripheral Venous NO GROWTH OBTAINED AFTER 24 HOURS, INCUBATION TO CONTINUE FOR 4 DAYS. 04/06/18 20:08 Blood Culture - Preliminary Blood - Peripheral Venous NO GROWTH OBTAINED AFTER 24 HOURS, INCUBATION TO CONTINUE FOR 4 DAYS. Physical Exam. Constitutional: Yes: No Distress. comfortable Neck: Yes: Supple/ no jvd Cardiovascular: Yes: Regular Rate and Rhythm Respiratory: Yes: Diminished Gastrointestinal: Yes: Soft/ non tender. Wound/Incision: Yes: Other (left toe-- dry gangrene) Neurological: Yes: Other (alert/ awake) Problem List - Problems (1) Altered mental status Code(s): R41.82 - ALTERED MENTAL STATUS, UNSPECIFIED (2) Chronic HFrEF (heart failure with reduced ejection fraction) Code(s): I50.22 - CHRONIC SYSTOLIC (CONGESTIVE) HEART FAILURE (3) ESRD (end stage renal disease) Code(s): N18.6 - END STAGE RENAL DISEASE (4) Slurred speech Code(s): R47.81 - SLURRED SPEECH (5) ASHD (arteriosclerotic heart disease) Code(s): I25.10 - ATHSCL HEART DISEASE OF [place] CORONARY ARTERY W/O ANG PCTRS (6) Anemia Code(s): D64.9 - ANEMIA, UNSPECIFIED Qualifiers: Anemia type: due to chronic kidney disease Chronic kidney disease stage: on chronic dialysis Qualified Code(s): N18.6 - End stage renal disease; D63.1 - Anemia in chronic kidney disease; Z99.2 - Dependence on renal dialysis (7) CHF (congestive heart failure), NYHA class IV Code(s): I50.9 - HEART FAILURE, UNSPECIFIED Qualifiers: Congestive heart failure type: combined Congestive heart failure chronicity : acute on chronic Qualified Code(s): I50.43 - Acute on chronic combined systolic (congestive) and diastolic (congestive) heart failure (8) Diabetes Code(s): E11.9 - TYPE 2 DIABETES MELLITUS WITHOUT COMPLICATIONS Qualifiers: Diabetes mellitus type: type 2 Diabetes mellitus penitentiary insulin use: without penitentiary use Diabetes mellitus complication status: with neurologic complications (9) Gangrene Code(s): I96 - GANGRENE, NOT ELSEWHERE CLASSIFIED (10) Hyperkalemia Code(s): E87.5 - HYPERKALEMIA (11) ICD (implantable cardioverter-defibrillator) in place Code(s): Z95.810 - PRESENCE OF AUTOMATIC (IMPLANTABLE) CARDIAC DEFIBRILLATOR (12) PVD (peripheral vascular disease) Code(s): I73.9 - PERIPHERAL VASCULAR DISEASE, UNSPECIFIED (13) S/P CABG (coronary artery bypass graft) Code(s): Z95.1 - PRESENCE OF AORTOCORONARY BYPASS GRAFT (14) S/P peripheral artery angioplasty with stent placement Code(s): Z95.820 - PERIPHERAL VASCULAR ANGIOPLASTY STATUS W IMPLANTS AND GRAFTS (15) Steal syndrome of dialysis vascular access Code(s): T82.898A - OTH COMPLICATION OF VASCULAR PROSTH DEV/GRFT, INIT Qualifiers: Encounter type: subsequent encounter Qualified Code(s): T82.898D - Other specified complication of vascular prosthetic devices, implants and grafts, subsequent encounter Assessment/Plan clinically better. no cva Continue present care physical therapy on Mirapex . d/c planning likely d/c tomorrow. will follow. Problem List - Problems (1) Altered mental status Code(s): R41.82 - ALTERED MENTAL STATUS, UNSPECIFIED Qualifiers: Altered mental status type: unspecified Qualified Code(s): R41.82 - Altered mental status, unspecified (2) Chronic HFrEF (heart failure with reduced ejection fraction) Code(s): I50.22 - CHRONIC SYSTOLIC (CONGESTIVE) HEART FAILURE (3) ESRD (end stage renal disease) Code(s): N18.6 - END STAGE RENAL DISEASE (4) Slurred speech Code(s): R47.81 - SLURRED SPEECH (5) ASHD (arteriosclerotic heart disease) Code(s): I25.10 - ATHSCL HEART DISEASE OF [place] CORONARY ARTERY W/O ANG PCTRS (6) Anemia Code(s): D64.9 - ANEMIA, UNSPECIFIED Qualifiers: Anemia type: due to chronic kidney disease Chronic kidney disease stage: on chronic dialysis Qualified Code(s): N18.6 - End stage renal disease; D63.1 - Anemia in chronic kidney disease; Z99.2 - Dependence on renal dialysis (7) CHF (congestive heart failure), NYHA class IV Code(s): I50.9 - HEART FAILURE, UNSPECIFIED Qualifiers: Congestive heart failure type: combined Congestive heart failure chronicity : chronic Qualified Code(s): I50.42 - Chronic combined systolic (congestive) and diastolic (congestive) heart failure (8) Diabetes Code(s): E11.9 - TYPE 2 DIABETES MELLITUS WITHOUT COMPLICATIONS Qualifiers: Diabetes mellitus type: type 2 Diabetes mellitus intermediate card tender insulin use: without penitentiary use Diabetes mellitus complication status: with neurologic complications (9) Gangrene Code(s): I96 - GANGRENE, NOT ELSEWHERE CLASSIFIED (10) Hyperkalemia Code(s): E87.5 - HYPERKALEMIA (11) ICD (implantable cardioverter-defibrillator) in place Code(s): Z95.810 - PRESENCE OF AUTOMATIC (IMPLANTABLE) CARDIAC DEFIBRILLATOR (12) PVD (peripheral vascular disease) Code(s): I73.9 - PERIPHERAL VASCULAR DISEASE, UNSPECIFIED (13) S/P CABG (coronary artery bypass graft) Code(s): Z95.1 - PRESENCE OF AORTOCORONARY BYPASS GRAFT (14) S/P peripheral artery angioplasty with stent placement Code(s): Z95.820 - PERIPHERAL VASCULAR ANGIOPLASTY STATUS W IMPLANTS AND GRAFTS (15) Steal syndrome of dialysis vascular access Code(s): T82.898A - OTH COMPLICATION OF VASCULAR PROSTH DEV/GRFT, INIT Qualifiers: Encounter type: subsequent encounter Qualified Code(s): T82.898D - Other specified complication of vascular prosthetic devices, implants and grafts, subsequent encounter
[2018-04-08] MEDS ORDERED: ACETAMINOPHEN 325 MG TABLET (FP) PO ONE (17:30)
[2018-04-08] MEDS: SENNOSIDES 8.6MG TABLET (FP) PO SCH (21:31)
[2018-04-08] MEDS: ATORVASTATIN CA 20 MG TABLET (FP) PO SCH (21:31)
[2018-04-08] MEDS: SERTRALINE HCL 25 MG TABLET (FP) PO SCH (21:31)
[2018-04-08] MEDS: INSULIN (LEVEMIR) 100 UNITS/ML UNITS SQ SCH (21:51)
[2018-04-09] MEDS: ACETAMINOPHEN WITH CODEINE 300MG/30MG TABLET PO PRN (04:10)
[2018-04-09] MEDS: LEVOTHYROXINE NA 25 MCG TABLET (FP) PO SCH (06:04)
[2018-04-09] MEDS: INSULIN SLIDING SCALE (NOVOLOG) 1 VIAL SQ SCH ×4 (06:05→22:12)
[2018-04-09] MEDS: PRAMIPEXOLE DIHYDROCHLORIDE 0.125 MG TABLET PO SCH ×3 (06:05→22:05)
[2018-04-09 07:06] LABS: ANION GAP 6 (8-16); BLOOD UREA NITROGEN 47 mg/dL (7-18); CALCIUM 9.1 mg/dL (8.5-10.1); CHLORIDE 98 mmol/L (98-107); CO2 33 mmol/L (21-32); GLUCOSE,RANDOM 102 mg/dL (74-106); POTASSIUM 5.7 mmol/L (3.5-5.1); SODIUM 137 mmol/L (136-145)
[2018-04-09 07:08] LABS: CREATININE 5.5 mg/dL (0.7-1.3)
[2018-04-09] MEDS: CALCIUM ACETATE 667 MG CAPSULE (FP) PO SCH ×3 (08:00→17:33)
[2018-04-09] MEDS ORDERED: PT OWN MED DRAWER 7, Y5N ONE (09:36)
--- NOTE | 2018-04-09 10:00 | PN ---
Progress Note, Physician Chief Complaint: Events noted Not in distress this am History of Present Illness: Patient was seen and examined. Awake and alert. Chart was reviewed Denies chest pain, SOB or palpitations - Current Medication List Current Medications: Active Medications Acetaminophen/Codeine Phosphate (Tylenol # 3 -) 1 tab PO Q8H PRN PRN Reason: PAIN LEVEL 6-10 Last Admin: 04/09/18 04:10 Dose: 1 tab Albuterol Sulfate (Ventolin 0.083% Nebulizer Soln -) 1 amp NEB Q8H PRN PRN Reason: Dyspnea Aspirin (Asa -) 81 mg PO DAILY [facility] Last Admin: 04/08/18 09:44 Dose: 81 mg Atorvastatin Calcium (Lipitor -) 20 mg PO [facility] Last Admin: 04/08/18 21:31 Dose: 20 mg Calcium Acetate (Phoslo -) 667 mg PO TIDCM [facility] Last Admin: 04/08/18 17:56 Dose: 667 mg Clopidogrel Bisulfate (Plavix -) 75 mg PO DAILY [facility] Last Admin: 04/08/18 09:44 Dose: 75 mg Gabapentin (Neurontin -) 100 mg PO DAILY [facility] Last Admin: 04/08/18 09:44 Dose: 100 mg Insulin Aspart (Novolog Vial Sliding Scale -) 1 vial SQ [facility]; Protocol Last Admin: 04/09/18 06:05 Dose: Not Given Insulin Detemir (Levemir Vial) 10 units SQ [facility] Last Admin: 04/08/18 21:51 Dose: 10 units Levothyroxine Sodium (Synthroid -) 25 mcg PO DAILY@0700 [facility] Last Admin: 04/09/18 06:04 Dose: 25 mcg Metoprolol Succinate (Toprol Xl -) 100 mg PO DAILY [facility] Last Admin: 04/08/18 09:44 Dose: 100 mg Pantoprazole Sodium (Protonix -) 40 mg PO DAILY [facility] Last Admin: 04/08/18 09:44 Dose: 40 mg Pramipexole Dihydrochloride (Mirapex -) 0.125 mg PO TID [facility] Last Admin: 04/09/18 06:05 Dose: 0.125 mg Sacubitril/Valsartan (Entresto 49 Mg-51 Mg Tablet) 1 tab PO BID [facility] Last Admin: 04/08/18 21:31 Dose: 1 tab Senna (Senna -) 1 tab PO [facility] Last Admin: 04/08/18 21:31 Dose: 1 tab Sertraline HCl (Zoloft -) 50 mg PO [facility] Last Admin: 04/08/18 21:31 Dose: 50 mg - Objective Vital Signs: Vital Signs Temperature 97.8 F 04/09/18 04:12 Pulse Rate 80 04/09/18 08:46 Respiratory Rate 18 04/09/18 09:00 Blood Pressure 135/58 04/09/18 08:46 O2 Sat by Pulse Oximetry (%) 96 04/09/18 09:00 HENT: Yes: Atraumatic Neck: Yes: Supple Cardiovascular: Yes: Regular Rate and Rhythm, S1, S2 Respiratory: Yes: CTA Bilaterally Gastrointestinal: Yes: Normal Bowel Sounds, Soft. No: Tenderness Edema: No Labs: 04/09/18 05:30 Problem List - Problems (1) Altered mental status Code(s): R41.82 - ALTERED MENTAL STATUS, UNSPECIFIED Qualifiers: Altered mental status type: unspecified Qualified Code(s): R41.82 - Altered mental status, unspecified (2) Chronic HFrEF (heart failure with reduced ejection fraction) Code(s): I50.22 - CHRONIC SYSTOLIC (CONGESTIVE) HEART FAILURE (3) ESRD (end stage renal disease) Code(s): N18.6 - END STAGE RENAL DISEASE (4) Ischemic dilated cardiomyopathy Code(s): I25.5 - ISCHEMIC CARDIOMYOPATHY; I42.0 - DILATED CARDIOMYOPATHY (5) ASHD (arteriosclerotic heart disease) Code(s): I25.10 - ATHSCL HEART DISEASE OF [place] CORONARY ARTERY W/O ANG PCTRS (6) Anemia Code(s): D64.9 - ANEMIA, UNSPECIFIED Qualifiers: Anemia type: due to chronic kidney disease Chronic kidney disease stage: on chronic dialysis Qualified Code(s): N18.6 - End stage renal disease; D63.1 - Anemia in chronic kidney disease; Z99.2 - Dependence on renal dialysis (7) COPD (chronic obstructive pulmonary disease) Code(s): J44.9 - CHRONIC OBSTRUCTIVE PULMONARY DISEASE, UNSPECIFIED Qualifiers: COPD type: unspecified COPD Qualified Code(s): J44.9 - Chronic obstructive pulmonary disease, unspecified (8) Diabetes Code(s): E11.9 - TYPE 2 DIABETES MELLITUS WITHOUT COMPLICATIONS Qualifiers: Diabetes mellitus type: type 2 Diabetes mellitus longterm insulin use: without block press operator use Diabetes mellitus complication status: with neurologic complications (9) HTN (hypertension) Code(s): I10 - ESSENTIAL (PRIMARY) HYPERTENSION Qualifiers: Hypertension type: essential hypertension Qualified Code(s): I10 - Essential (primary) hypertension (10) Hyperkalemia Code(s): E87.5 - HYPERKALEMIA (11) Hypothyroidism Code(s): E03.9 - HYPOTHYROIDISM, UNSPECIFIED Qualifiers: Hypothyroidism type: unspecified Qualified Code(s): E03.9 - Hypothyroidism , unspecified (12) ICD (implantable cardioverter-defibrillator) in place Code(s): Z95.810 - PRESENCE OF AUTOMATIC (IMPLANTABLE) CARDIAC DEFIBRILLATOR (13) PVD (peripheral vascular disease) Code(s): I73.9 - PERIPHERAL VASCULAR DISEASE, UNSPECIFIED (14) Pleural effusion Code(s): J90 - PLEURAL EFFUSION, NOT ELSEWHERE CLASSIFIED (15) S/P CABG (coronary artery bypass graft) Code(s): Z95.1 - PRESENCE OF AORTOCORONARY BYPASS GRAFT (16) S/P peripheral artery angioplasty with stent placement Code(s): Z95.820 - PERIPHERAL VASCULAR ANGIOPLASTY STATUS W IMPLANTS AND GRAFTS Assessment/Plan 1. Altered mental status resolved 2. Chronic Systolic Heart Failure referable to ischemic dilated cardiomyopathy/ severe LV systolic dysfunction 3. CAD post remote [place] post CABG angina pectoris 4. Post prophylactic ICD implant ([employer]'s device) 5. HTN 6. IDDM 7. Hypercholesterolemia 8. PAD with left toe gangrene s/p aortogram, LLE angiogram, SFA atherectomy, DCB SFA angioplasty, with sfa stent 9. ESRD on HD, right AVG with steal and hyperkalemia 10. Anemia of CKD 11. Hypothyroidism 12. Altered mental status, myoclonic jerks maybe worsened by gabapentin or uremia 13. History of GI bleed PLAN: 1. HD per nephrology 2. 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 Continue Toprol XL 100 qd 4. Continue Entresto 49/51 bid - monitor electrolytes 5. Continue ASA 81 qd and Plavix 75 qd 6. Continue Lipitor 20 qhs 7. DVT and GI prophylaxis 8. Elective right arm angiogram and DRIL procedure Further plans are to follow Jarocho Taylor MD
[2018-04-09] MEDS: CLOPIDOGREL BISULFATE 75 MG TABLET (FP) PO SCH (11:18)
[2018-04-09] MEDS: GABAPENTIN 100 MG CAPSULE (FP) PO SCH (11:18)
[2018-04-09] MEDS: SACUBITRIL/VALSARTAN 49 MG-51 MG TABLET PO SCH ×2 (11:18→22:05)
[2018-04-09] MEDS: PANTOPRAZOLE 40 MG TABLET (FP) PO SCH (11:18)
[2018-04-09] MEDS: ASPIRIN 81 MG CHEWABLE TABLETS PO SCH (11:18)
--- NOTE | 2018-04-09 13:13 | PN ---
Progress Note (short form) - Note Progress Note: pt seen/examined comfortable no new issues- except right arm pain/ discomfort Vital Signs Temp 97.8 F 04/09/18 04:12 Pulse 80 04/09/18 08:46 Resp 18 04/09/18 09:00 BP 135/58 04/09/18 08:46 Pulse Ox 96 04/09/18 09:00 Intake & Output 04/08/18 04/09/18 04/09/18 23:59 11:59 23:59 Intake Total 200 Output Total 200 Balance 200 -200 Weight 144 lb 3.2 oz Intake: Oral 200 Output: Urine 200 Void 200 Other: Voiding Method Urinal Urinal # Unmeasured Voids Void 1 1 Bowel Movement No Weight Measurement Method Standing Scale Active Medications Acetaminophen/Codeine Phosphate (Tylenol # 3 -) 1 tab PO Q8H PRN PRN Reason: PAIN LEVEL 6-10 Last Admin: 04/07/18 22:36 Dose: 1 tab Albuterol Sulfate (Ventolin 0.083% Nebulizer Soln -) 1 amp NEB Q8H PRN PRN Reason: Dyspnea Aspirin (Asa -) 81 mg PO DAILY [facility] Last Admin: 04/08/18 09:44 Dose: 81 mg Atorvastatin Calcium (Lipitor -) 20 mg PO HS [facility] Last Admin: 04/07/18 21:58 Dose: 20 mg Calcium Acetate (Phoslo -) 667 mg PO TIDCM [facility] Last Admin: 04/08/18 09:44 Dose: 667 mg Clopidogrel Bisulfate (Plavix -) 75 mg PO DAILY [facility] Last Admin: 04/08/18 09:44 Dose: 75 mg Gabapentin (Neurontin -) 100 mg PO DAILY [facility] Last Admin: 04/08/18 09:44 Dose: 100 mg Sodium Chloride (Normal Saline -) 250 mls @ 3,000 mls/hr IV PRN PRN PRN Reason: Hypotension during Dialysis Stop: 04/08/18 14:02 Insulin Aspart (Novolog Vial Sliding Scale -) 1 vial SQ [facility]; Protocol Last Admin: 04/08/18 06:18 Dose: Not Given Insulin Detemir (Levemir Vial) 10 units SQ [facility] Last Admin: 04/07/18 21:57 Dose: 10 units Levothyroxine Sodium (Synthroid -) 25 mcg PO DAILY@0700 [facility] Last Admin: 04/08/18 06:17 Dose: 25 mcg Metoprolol Succinate (Toprol Xl -) 100 mg PO DAILY [facility] Last Admin: 04/08/18 09:44 Dose: 100 mg Pantoprazole Sodium (Protonix -) 40 mg PO DAILY [facility] Last Admin: 04/08/18 09:44 Dose: 40 mg Pramipexole Dihydrochloride (Mirapex -) 0.125 mg PO TID [facility] Last Admin: 04/08/18 06:17 Dose: 0.125 mg Sacubitril/Valsartan (Entresto 49 Mg-51 Mg Tablet) 1 tab PO BID [facility] Last Admin: 04/08/18 09:44 Dose: 1 tab Senna (Senna -) 1 tab PO HS [facility] Last Admin: 04/07/18 21:58 Dose: 1 tab Sertraline HCl (Zoloft -) 50 mg PO HS [facility] Last Admin: 04/07/18 21:58 Dose: 50 mg CBC, BMP 04/07/18 08:15 04/09/18 05:30 Microbiology 04/06/18 21:02 Urine Culture - Final Urine - Urine Clean Catch NO GROWTH OBTAINED 04/06/18 20:08 Blood Culture - Preliminary Blood - Peripheral Venous NO GROWTH OBTAINED AFTER 24 HOURS, INCUBATION TO CONTINUE FOR 4 DAYS. 04/06/18 20:08 Blood Culture - Preliminary Blood - Peripheral Venous NO GROWTH OBTAINED AFTER 24 HOURS, INCUBATION TO CONTINUE FOR 4 DAYS. Physical Exam. Constitutional: Yes: No Distress. comfortable Neck: Yes: Supple/ no jvd Cardiovascular: Yes: Regular Rate and Rhythm Respiratory: Yes: Diminished Gastrointestinal: Yes: Soft/ non tender. Wound/Incision: Yes: Other (left toe-- dry gangrene) Neurological: Yes: Other (alert/ awake) Problem List - Problems (1) Altered mental status Code(s): R41.82 - ALTERED MENTAL STATUS, UNSPECIFIED (2) Chronic HFrEF (heart failure with reduced ejection fraction) Code(s): I50.22 - CHRONIC SYSTOLIC (CONGESTIVE) HEART FAILURE (3) ESRD (end stage renal disease) Code(s): N18.6 - END STAGE RENAL DISEASE (4) Slurred speech Code(s): R47.81 - SLURRED SPEECH (5) ASHD (arteriosclerotic heart disease) Code(s): I25.10 - ATHSCL HEART DISEASE OF [place] CORONARY ARTERY W/O ANG PCTRS (6) Anemia Code(s): D64.9 - ANEMIA, UNSPECIFIED Qualifiers: Anemia type: due to chronic kidney disease Chronic kidney disease stage: on chronic dialysis Qualified Code(s): N18.6 - End stage renal disease; D63.1 - Anemia in chronic kidney disease; Z99.2 - Dependence on renal dialysis (7) CHF (congestive heart failure), NYHA class IV Code(s): I50.9 - HEART FAILURE, UNSPECIFIED Qualifiers: Congestive heart failure type: combined Congestive heart failure chronicity : acute on chronic Qualified Code(s): I50.43 - Acute on chronic combined systolic (congestive) and diastolic (congestive) heart failure (8) Diabetes Code(s): E11.9 - TYPE 2 DIABETES MELLITUS WITHOUT COMPLICATIONS Qualifiers: Diabetes mellitus type: type 2 Diabetes mellitus long-term insulin use: without long-term use Diabetes mellitus complication status: with neurologic complications (9) Gangrene Code(s): I96 - GANGRENE, NOT ELSEWHERE CLASSIFIED (10) Hyperkalemia Code(s): E87.5 - HYPERKALEMIA (11) ICD (implantable cardioverter-defibrillator) in place Code(s): Z95.810 - PRESENCE OF AUTOMATIC (IMPLANTABLE) CARDIAC DEFIBRILLATOR (12) PVD (peripheral vascular disease) Code(s): I73.9 - PERIPHERAL VASCULAR DISEASE, UNSPECIFIED (13) S/P CABG (coronary artery bypass graft) Code(s): Z95.1 - PRESENCE OF AORTOCORONARY BYPASS GRAFT (14) S/P peripheral artery angioplasty with stent placement Code(s): Z95.820 - PERIPHERAL VASCULAR ANGIOPLASTY STATUS W IMPLANTS AND GRAFTS (15) Steal syndrome of dialysis vascular access Code(s): T82.898A - OTH COMPLICATION OF VASCULAR PROSTH DEV/GRFT, INIT Qualifiers: Encounter type: subsequent encounter Qualified Code(s): T82.898D - Other specified complication of vascular prosthetic devices, implants and grafts, subsequent encounter Assessment/Plan clinically stable. no cva Continue present care physical therapy on Mirapex . d/c planning-- awaiting vascular to evaluate. will follow Problem List - Problems (1) Altered mental status Code(s): R41.82 - ALTERED MENTAL STATUS, UNSPECIFIED Qualifiers: Altered mental status type: unspecified Qualified Code(s): R41.82 - Altered mental status, unspecified (2) Chronic HFrEF (heart failure with reduced ejection fraction) Code(s): I50.22 - CHRONIC SYSTOLIC (CONGESTIVE) HEART FAILURE (3) ESRD (end stage renal disease) Code(s): N18.6 - END STAGE RENAL DISEASE (4) Slurred speech Code(s): R47.81 - SLURRED SPEECH (5) ASHD (arteriosclerotic heart disease) Code(s): I25.10 - ATHSCL HEART DISEASE OF [place] CORONARY ARTERY W/O ANG PCTRS (6) Anemia Code(s): D64.9 - ANEMIA, UNSPECIFIED Qualifiers: Anemia type: due to chronic kidney disease Chronic kidney disease stage: on chronic dialysis Qualified Code(s): N18.6 - End stage renal disease; D63.1 - Anemia in chronic kidney disease; Z99.2 - Dependence on renal dialysis (7) CHF (congestive heart failure), NYHA class IV Code(s): I50.9 - HEART FAILURE, UNSPECIFIED Qualifiers: Congestive heart failure type: combined Congestive heart failure chronicity : chronic Qualified Code(s): I50.42 - Chronic combined systolic (congestive) and diastolic (congestive) heart failure (8) Diabetes Code(s): E11.9 - TYPE 2 DIABETES MELLITUS WITHOUT COMPLICATIONS Qualifiers: Diabetes mellitus type: type 2 Diabetes mellitus termite helper insulin use: without long-term use Diabetes mellitus complication status: with neurologic complications (9) Gangrene Code(s): I96 - GANGRENE, NOT ELSEWHERE CLASSIFIED (10) Hyperkalemia Code(s): E87.5 - HYPERKALEMIA (11) ICD (implantable cardioverter-defibrillator) in place Code(s): Z95.810 - PRESENCE OF AUTOMATIC (IMPLANTABLE) CARDIAC DEFIBRILLATOR (12) PVD (peripheral vascular disease) Code(s): I73.9 - PERIPHERAL VASCULAR DISEASE, UNSPECIFIED (13) S/P CABG (coronary artery bypass graft) Code(s): Z95.1 - PRESENCE OF AORTOCORONARY BYPASS GRAFT (14) S/P peripheral artery angioplasty with stent placement Code(s): Z95.820 - PERIPHERAL VASCULAR ANGIOPLASTY STATUS W IMPLANTS AND GRAFTS (15) Steal syndrome of dialysis vascular access Code(s): T82.898A - OTH COMPLICATION OF VASCULAR PROSTH DEV/GRFT, INIT Qualifiers: Encounter type: subsequent encounter Qualified Code(s): T82.898D - Other specified complication of vascular prosthetic devices, implants and grafts, subsequent encounter
--- NOTE | 2018-04-09 14:57 | PN ---
Progress Note, Physician History of Present Illness: Pt seen and examined at bedside. He is awake and alert. He feels that his breathing is getting better. - Current Medication List Current Medications: Active Medications Acetaminophen/Codeine Phosphate (Tylenol # 3 -) 1 tab PO Q8H PRN PRN Reason: PAIN LEVEL 6-10 Last Admin: 04/09/18 04:10 Dose: 1 tab Albuterol Sulfate (Ventolin 0.083% Nebulizer Soln -) 1 amp NEB Q8H PRN PRN Reason: Dyspnea Aspirin (Asa -) 81 mg PO DAILY [facility] Last Admin: 04/09/18 11:18 Dose: 81 mg Atorvastatin Calcium (Lipitor -) 20 mg PO [facility] Last Admin: 04/08/18 21:31 Dose: 20 mg Calcium Acetate (Phoslo -) 667 mg PO TIDCM [facility] Last Admin: 04/09/18 11:17 Dose: 667 mg Clopidogrel Bisulfate (Plavix -) 75 mg PO DAILY [facility] Last Admin: 04/09/18 11:18 Dose: 75 mg Gabapentin (Neurontin -) 100 mg PO DAILY [facility] Last Admin: 04/09/18 11:18 Dose: 100 mg Insulin Aspart (Novolog Vial Sliding Scale -) 1 vial SQ [facility]; Protocol Last Admin: 04/09/18 11:32 Dose: Not Given Insulin Detemir (Levemir Vial) 10 units SQ [facility] Last Admin: 04/08/18 21:51 Dose: 10 units Levothyroxine Sodium (Synthroid -) 25 mcg PO DAILY@0700 [facility] Last Admin: 04/09/18 06:04 Dose: 25 mcg Metoprolol Succinate (Toprol Xl -) 100 mg PO DAILY [facility] Last Admin: 04/09/18 11:18 Dose: 100 mg Pantoprazole Sodium (Protonix -) 40 mg PO DAILY [facility] Last Admin: 04/09/18 11:18 Dose: 40 mg Pramipexole Dihydrochloride (Mirapex -) 0.125 mg PO TID [facility] Last Admin: 04/09/18 14:25 Dose: 0.125 mg Sacubitril/Valsartan (Entresto 49 Mg-51 Mg Tablet) 1 tab PO BID [facility] Last Admin: 04/09/18 11:18 Dose: 1 tab Senna (Senna -) 1 tab PO [facility] Last Admin: 04/08/18 21:31 Dose: 1 tab Sertraline HCl (Zoloft -) 50 mg PO HS [facility] Last Admin: 04/08/18 21:31 Dose: 50 mg - Objective Vital Signs: Vital Signs Temperature 97.8 F 04/09/18 04:12 Pulse Rate 80 04/09/18 08:46 Respiratory Rate 18 04/09/18 09:00 Blood Pressure 135/58 04/09/18 08:46 O2 Sat by Pulse Oximetry (%) 96 04/09/18 09:00 Constitutional: Yes: Calm Eyes: Yes: Conjunctiva Clear HENT: Yes: Atraumatic Neck: Yes: Supple Cardiovascular: Yes: S1, S2 Respiratory: Yes: CTA Bilaterally, On Nasal O2 Gastrointestinal: Yes: Soft Genitourinary: Yes: WNL Musculoskeletal: Yes: WNL Edema: No Neurological: Yes: Oriented Psychiatric: Yes: Oriented Labs: CBC, BMP 04/07/18 08:15 04/09/18 05:30 INR, PTT INR 1.05 (0.82-1.09) 04/07/18 08:15 Problem List - Problems (1) ESRD (end stage renal disease) Code(s): N18.6 - END STAGE RENAL DISEASE (2) Anemia Code(s): D64.9 - ANEMIA, UNSPECIFIED Qualifiers: Anemia type: due to chronic kidney disease Chronic kidney disease stage: on chronic dialysis Qualified Code(s): N18.6 - End stage renal disease; D63.1 - Anemia in chronic kidney disease; Z99.2 - Dependence on renal dialysis (3) CHF (congestive heart failure), NYHA class IV Code(s): I50.9 - HEART FAILURE, UNSPECIFIED Qualifiers: Congestive heart failure type: combined Congestive heart failure chronicity : chronic Qualified Code(s): I50.42 - Chronic combined systolic (congestive) and diastolic (congestive) heart failure Assessment/Plan Current Medications Generic Name Dose Route Start Last Admin Trade Name Freq PRN Reason Stop Dose Admin Acetaminophen/Codeine Phosphate 1 tab 04/07/18 14:17 04/09/18 04:10 Tylenol # 3 - PO 1 tab Q8H PRN Administration PAIN LEVEL 6-10 Albuterol Sulfate 1 amp 04/06/18 22:48 Ventolin 0.083% Nebulizer Soln - NEB Q8H PRN Dyspnea Aspirin 81 mg 04/07/18 10:00 04/09/18 11:18 Asa - PO 81 mg DAILY [facility] Administration Atorvastatin Calcium 20 mg 04/07/18 22:00 04/08/18 21:31 Lipitor - PO 20 mg HS [facility] Administration Calcium Acetate 667 mg 04/07/18 08:00 04/09/18 11:17 Phoslo - PO 667 mg TIDCM [facility] Administration Clopidogrel Bisulfate 75 mg 04/08/18 10:00 04/09/18 11:18 Plavix - PO 75 mg DAILY [facility] Administration Gabapentin 100 mg 04/08/18 10:00 04/09/18 11:18 Neurontin - PO 100 mg DAILY [facility] Administration Insulin Aspart 1 vial 04/07/18 07:00 04/09/18 11:32 Novolog Vial Sliding Scale - SQ Not Given ACHS [facility] Protocol Insulin Detemir 10 units 04/07/18 22:00 04/08/18 21:51 Levemir Vial SQ 10 units HS [facility] Administration Levothyroxine Sodium 25 mcg 04/07/18 07:00 04/09/18 06:04 Synthroid - PO 25 mcg DAILY@0700 [facility] Administration Metoprolol Succinate 100 mg 04/07/18 14:45 04/09/18 11:18 Toprol Xl - PO 100 mg DAILY [facility] Administration Pantoprazole Sodium 40 mg 04/07/18 10:00 04/09/18 11:18 Protonix - PO 40 mg DAILY [facility] Administration Pramipexole Dihydrochloride 0.125 mg 04/07/18 22:00 04/09/18 14:25 Mirapex - PO 0.125 mg TID [facility] Administration Sacubitril/Valsartan 1 tab 04/07/18 10:00 04/09/18 11:18 Entresto 49 Mg-51 Mg Tablet PO 1 tab BID [facility] Administration Senna 1 tab 04/07/18 22:00 04/08/18 21:31 Senna - PO 1 tab HS [facility] Administration Sertraline HCl 50 mg 04/07/18 22:00 04/08/18 21:31 Zoloft - PO 50 mg HS [facility] Administration Impression 1. ESRD 2. fluid overload 3. DM 4. CAD 5. PVD 6. DFU 7. anemia 8. steal syndrome Plan - HD today - 2k bath - repeat labs in am - vascular follow up for possible steal - renal diet - fluid restriction - spoke to cardiology, pt cleared to go to HD off of monitor Dr Dove
[2018-04-09] MEDS ORDERED: SODIUM CHLORIDE 250 ML IV PRN (15:50)
[2018-04-09] MEDS ORDERED: EPOETIN ALFA 3,000 UNIT/1 ML ML IVPUSH ONE (16:00)
[2018-04-09] MEDS: ATORVASTATIN CA 20 MG TABLET (FP) PO SCH (22:05)
[2018-04-09] MEDS: SERTRALINE HCL 25 MG TABLET (FP) PO SCH (22:06)
[2018-04-09] MEDS: SENNOSIDES 8.6MG TABLET (FP) PO SCH (22:06)
[2018-04-09] MEDS: INSULIN (LEVEMIR) 100 UNITS/ML UNITS SQ SCH (22:09)
[2018-04-10] MEDS: ACETAMINOPHEN WITH CODEINE 300MG/30MG TABLET PO PRN ×2 (02:19→02:45)
[2018-04-10 06:06] LABS: SERUM IRON SATURATION 22 % (15-55); TOTAL IRON BINDING CAPACITY 165 ug/dL (250-450); UIBC 128 ug/dL (111-343)
[2018-04-10] MEDS: LEVOTHYROXINE NA 25 MCG TABLET (FP) PO SCH (06:31)
[2018-04-10] MEDS: PRAMIPEXOLE DIHYDROCHLORIDE 0.125 MG TABLET PO SCH ×3 (06:31→21:03)
[2018-04-10] MEDS: INSULIN SLIDING SCALE (NOVOLOG) 1 VIAL SQ SCH ×4 (06:31→21:07)
--- NOTE | 2018-04-10 07:04 | PN ---
Progress Note (short form) - Note Progress Note: VASCULAR & WOUND CARE - Robel Ezequiel Asked by Medicine to re-eval left great toe and Nephrology to see patient for intermittent RUE (hand) pain since having AVF ([place]). ESRD on HD (m-w-f). C/o a "burning" sensation to his right hand. Currently, patient on HD and tolerating without any hand complaints. Neurology Consult appreciated. He is s/p Aortogram, LLE angiogram, SFA atherectomy, DCB SFA angioplasty, with sfa stent (left great toe DRY gangrene) 03/07/18. Last Vital Signs Temp Pulse Resp BP Pulse Ox 98.1 F 81 20 142/66 98 04/10/18 06:00 04/10/18 06:00 04/10/18 06:00 04/10/18 06:00 04/09/18 20:59 CBC, BMP 04/07/18 08:15 04/09/18 05:30 INR, PTT INR 1.05 (0.82-1.09) 04/07/18 08:15 PE GEN: alert. nad UE: No evidence of RUE cyanosis. No pallor. RUE AVF with +thrill (basilic stage 1 vs. transposition? --> nerve irritation? Hands are slightly cool bilat. +1 radial pulse. Cap refill < 3 sec Problem List - Problems (1) ESRD (end stage renal disease) Assessment/Plan: RUE AVF without signs of STEAL SYNDROME Code(s): N18.6 - END STAGE RENAL DISEASE
--- NOTE | 2018-04-10 08:17 | PN ---
Progress Note (short form) - Note Progress Note: Chief Complaint: Events noted, noted reviewed, dyspnea persists but improving, denies any chest pain History of Present Illness: Seen and examined on telemetry. Events noted, noted reviewed, dyspnea persists but improving, denies any chest pain - Current Medication List Current Medications Acetaminophen/Codeine Phosphate (Tylenol # 3 -) 1 tab PO Q8H PRN PRN Reason: PAIN LEVEL 6-10 Last Admin: 04/10/18 02:45 Dose: 1 tab Albuterol Sulfate (Ventolin 0.083% Nebulizer Soln -) 1 amp NEB Q8H PRN PRN Reason: Dyspnea Aspirin (Asa -) 81 mg PO DAILY [facility] Last Admin: 04/09/18 11:18 Dose: 81 mg Atorvastatin Calcium (Lipitor -) 20 mg PO [facility] Last Admin: 04/09/18 22:05 Dose: 20 mg Calcium Acetate (Phoslo -) 667 mg PO TIDCM [facility] Last Admin: 04/09/18 17:33 Dose: Not Given Clopidogrel Bisulfate (Plavix -) 75 mg PO DAILY [facility] Last Admin: 04/09/18 11:18 Dose: 75 mg Gabapentin (Neurontin -) 100 mg PO DAILY [facility] Last Admin: 04/09/18 11:18 Dose: 100 mg Sodium Chloride (Normal Saline -) 250 mls @ 3,000 mls/hr IV PRN PRN PRN Reason: Hypotension during Dialysis Stop: 04/10/18 15:49 Insulin Aspart (Novolog Vial Sliding Scale -) 1 vial SQ [facility]; Protocol Last Admin: 04/10/18 06:31 Dose: Not Given Insulin Detemir (Levemir Vial) 10 units SQ [facility] Last Admin: 04/09/18 22:09 Dose: 10 units Levothyroxine Sodium (Synthroid -) 25 mcg PO DAILY@0700 [facility] Last Admin: 04/10/18 06:31 Dose: 25 mcg Metoprolol Succinate (Toprol Xl -) 100 mg PO DAILY [facility] Last Admin: 04/09/18 11:18 Dose: 100 mg Pantoprazole Sodium (Protonix -) 40 mg PO DAILY [facility] Last Admin: 04/09/18 11:18 Dose: 40 mg Pramipexole Dihydrochloride (Mirapex -) 0.125 mg PO TID [facility] Last Admin: 04/10/18 06:31 Dose: 0.125 mg Sacubitril/Valsartan (Entresto 49 Mg-51 Mg Tablet) 1 tab PO BID [facility] Last Admin: 04/09/18 22:05 Dose: 1 tab Senna (Senna -) 1 tab PO [facility] Last Admin: 04/09/18 22:06 Dose: 1 tab Sertraline HCl (Zoloft -) 50 mg PO [facility] Last Admin: 04/09/18 22:06 Dose: 50 mg - Review of Systems Constitutional: denies: Chills, Fever Cardiovascular: As noted above Respiratory: denies: Cough or Sputum Production Gastrointestinal: denies: Nausea, Vomiting, Diarrhea, Constipation or Abdominal Pain Genitourinary: HD Neurological: denies: Dizziness or Headaches Endocrine: denies: Intolerance to Cold, Intolerance to Heat - Objective Vital Signs: Last Vital Signs Temp Pulse Resp BP Pulse Ox 98.1 F 81 20 142/66 98 04/10/18 06:00 04/10/18 06:00 04/10/18 06:00 04/10/18 06:00 04/09/18 20:59 Intake & Output 04/07/18 04/08/18 04/09/18 04/10/18 23:59 23:59 23:59 23:59 Intake Total 350 360 660 Output Total 200 200 Balance 350 160 460 Weight 151 lb 143 lb 144 lb 3.2 oz 141 lb 12.8 oz Constitutional: No Distress, Calm, Thin Neck: Supple Negative JVD Respiratory: diminished Breath Sounds at the Bases Bilaterally Cardiovascular: S1 S2 Regular Rate and Rhythm Grade 1/6 systolic murmur Gastrointestinal: Soft Benign Normal Bowel Sounds Ext: Trace Edema Labs: CBC, BMP 04/07/18 08:15 04/09/18 05:30 Assessment/Plan ASSESSMENT: 1. Altered mental status, resolved 2. 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 CAD post remote NM post CABG angina pectoris, stable 4. Post prophylactic ICD implant ([employer]'s device) 5. HTN 6. IDDM 7. Hypercholesterolemia 8. PAD with toe gangrene post peripheral intervention 9. Hypothyroidism 10. ESRD on HD 12. Anemia PLAN: 1. Continue Toprol XL 2. Continue Entresto and titrate dosage as tolerated and hemodynamics permitting 3. Continue ASA + Plavix 4. Continue Lipitor 5. HD as per renal service Jordon Lozoya M.D.
[2018-04-10] MEDS ORDERED: PT OWN MED DRAWER 7, Y5N ONE (08:48)
[2018-04-10] MEDS: ASPIRIN 81 MG CHEWABLE TABLETS PO SCH (09:15)
[2018-04-10] MEDS: GABAPENTIN 100 MG CAPSULE (FP) PO SCH (09:15)
[2018-04-10] MEDS: CALCIUM ACETATE 667 MG CAPSULE (FP) PO SCH ×3 (09:15→17:47)
[2018-04-10] MEDS: CLOPIDOGREL BISULFATE 75 MG TABLET (FP) PO SCH (09:15)
[2018-04-10] MEDS: SACUBITRIL/VALSARTAN 49 MG-51 MG TABLET PO SCH ×2 (09:15→21:03)
[2018-04-10] MEDS: PANTOPRAZOLE 40 MG TABLET (FP) PO SCH (09:15)
--- NOTE | 2018-04-10 13:56 | PN ---
Progress Note, Physician Chief Complaint: feels well No distress c/o numbness right arm - Current Medication List Current Medications: Active Medications Acetaminophen/Codeine Phosphate (Tylenol # 3 -) 1 tab PO Q8H PRN PRN Reason: PAIN LEVEL 6-10 Last Admin: 04/10/18 02:45 Dose: 1 tab Albuterol Sulfate (Ventolin 0.083% Nebulizer Soln -) 1 amp NEB Q8H PRN PRN Reason: Dyspnea Last Admin: 04/10/18 09:15 Dose: 1 amp Aspirin (Asa -) 81 mg PO DAILY [facility] Last Admin: 04/10/18 09:15 Dose: 81 mg Atorvastatin Calcium (Lipitor -) 20 mg PO HS [facility] Last Admin: 04/09/18 22:05 Dose: 20 mg Calcium Acetate (Phoslo -) 667 mg PO TIDCM [facility] Last Admin: 04/10/18 12:45 Dose: 667 mg Clopidogrel Bisulfate (Plavix -) 75 mg PO DAILY [facility] Last Admin: 04/10/18 09:15 Dose: 75 mg Gabapentin (Neurontin -) 100 mg PO DAILY [facility] Last Admin: 04/10/18 09:15 Dose: 100 mg Sodium Chloride (Normal Saline -) 250 mls @ 3,000 mls/hr IV PRN PRN PRN Reason: Hypotension during Dialysis Stop: 04/10/18 15:49 Insulin Aspart (Novolog Vial Sliding Scale -) 1 vial SQ [facility]; Protocol Last Admin: 04/10/18 12:45 Dose: 2 units Insulin Detemir (Levemir Vial) 10 units SQ [facility] Last Admin: 04/09/18 22:09 Dose: 10 units Levothyroxine Sodium (Synthroid -) 25 mcg PO DAILY@0700 [facility] Last Admin: 04/10/18 06:31 Dose: 25 mcg Metoprolol Succinate (Toprol Xl -) 100 mg PO DAILY [facility] Last Admin: 04/10/18 09:15 Dose: 100 mg Pantoprazole Sodium (Protonix -) 40 mg PO DAILY [facility] Last Admin: 04/10/18 09:15 Dose: 40 mg Pramipexole Dihydrochloride (Mirapex -) 0.125 mg PO TID [facility] Last Admin: 04/10/18 13:18 Dose: 0.125 mg Sacubitril/Valsartan (Entresto 49 Mg-51 Mg Tablet) 1 tab PO BID [facility] Last Admin: 04/10/18 09:15 Dose: 1 tab Senna (Senna -) 1 tab PO [facility] Last Admin: 04/09/18 22:06 Dose: 1 tab Sertraline HCl (Zoloft -) 50 mg PO [facility] Last Admin: 04/09/18 22:06 Dose: 50 mg - Objective Vital Signs: Vital Signs Temperature 98.1 F 04/10/18 06:00 Pulse Rate 81 04/10/18 06:00 Respiratory Rate 20 04/10/18 06:00 Blood Pressure 142/66 04/10/18 06:00 O2 Sat by Pulse Oximetry (%) 98 04/09/18 20:59 Constitutional: Yes: No Distress, Calm Cardiovascular: Yes: Regular Rate and Rhythm Respiratory: Yes: Diminished Gastrointestinal: Yes: Normal Bowel Sounds, Soft. No: Tenderness Edema: No Labs: CBC, BMP 04/07/18 08:15 04/09/18 05:30 INR, PTT INR 1.05 (0.82-1.09) 04/07/18 08:15 Problem List - Problems (1) Altered mental status Code(s): R41.82 - ALTERED MENTAL STATUS, UNSPECIFIED Qualifiers: Altered mental status type: unspecified Qualified Code(s): R41.82 - Altered mental status, unspecified (2) Chronic HFrEF (heart failure with reduced ejection fraction) Code(s): I50.22 - CHRONIC SYSTOLIC (CONGESTIVE) HEART FAILURE (3) ESRD (end stage renal disease) Code(s): N18.6 - END STAGE RENAL DISEASE (4) Ischemic dilated cardiomyopathy Code(s): I25.5 - ISCHEMIC CARDIOMYOPATHY; I42.0 - DILATED CARDIOMYOPATHY (5) ASHD (arteriosclerotic heart disease) Code(s): I25.10 - ATHSCL HEART DISEASE OF [place] CORONARY ARTERY W/O ANG PCTRS (6) PVD (peripheral vascular disease) Code(s): I73.9 - PERIPHERAL VASCULAR DISEASE, UNSPECIFIED Assessment/Plan Plan Continue with meds- will need to dc Neurontin eventually Pt tolerating Mirapex Vascular eval- Dr Richard for right arm numbness Spoke with [facility]-- insists that the pt has the angiogram with DRIL procedure during this admission He is medically stable for procedure at this time
--- NOTE | 2018-04-10 15:41 | PN ---
Progress Note, Physician History of Present Illness: Pt seen and examined at bedside. He is awake and alert. He feels that his breathing is comfortable. - Current Medication List Current Medications: Active Medications Acetaminophen/Codeine Phosphate (Tylenol # 3 -) 1 tab PO Q8H PRN PRN Reason: PAIN LEVEL 6-10 Last Admin: 04/10/18 02:45 Dose: 1 tab Albuterol Sulfate (Ventolin 0.083% Nebulizer Soln -) 1 amp NEB Q8H PRN PRN Reason: Dyspnea Last Admin: 04/10/18 09:15 Dose: 1 amp Aspirin (Asa -) 81 mg PO DAILY [facility] Last Admin: 04/10/18 09:15 Dose: 81 mg Atorvastatin Calcium (Lipitor -) 20 mg PO HS [facility] Last Admin: 04/09/18 22:05 Dose: 20 mg Calcium Acetate (Phoslo -) 667 mg PO TIDCM [facility] Last Admin: 04/10/18 12:45 Dose: 667 mg Clopidogrel Bisulfate (Plavix -) 75 mg PO DAILY [facility] Last Admin: 04/10/18 09:15 Dose: 75 mg Gabapentin (Neurontin -) 100 mg PO DAILY [facility] Sodium Chloride (Normal Saline -) 250 mls @ 3,000 mls/hr IV PRN PRN PRN Reason: Hypotension during Dialysis Stop: 04/10/18 15:49 Insulin Aspart (Novolog Vial Sliding Scale -) 1 vial SQ [facility]; Protocol Last Admin: 04/10/18 12:45 Dose: 2 units Insulin Detemir (Levemir Vial) 10 units SQ [facility] Last Admin: 04/09/18 22:09 Dose: 10 units Levothyroxine Sodium (Synthroid -) 25 mcg PO DAILY@0700 [facility] Last Admin: 04/10/18 06:31 Dose: 25 mcg Metoprolol Succinate (Toprol Xl -) 100 mg PO DAILY [facility] Last Admin: 04/10/18 09:15 Dose: 100 mg Pantoprazole Sodium (Protonix -) 40 mg PO DAILY [facility] Last Admin: 04/10/18 09:15 Dose: 40 mg Pramipexole Dihydrochloride (Mirapex -) 0.125 mg PO TID [facility] Last Admin: 04/10/18 13:18 Dose: 0.125 mg Sacubitril/Valsartan (Entresto 49 Mg-51 Mg Tablet) 1 tab PO BID [facility] Last Admin: 04/10/18 09:15 Dose: 1 tab Senna (Senna -) 1 tab PO [facility] Last Admin: 04/09/18 22:06 Dose: 1 tab Sertraline HCl (Zoloft -) 50 mg PO [facility] Last Admin: 04/09/18 22:06 Dose: 50 mg - Objective Vital Signs: Vital Signs Temperature 98.7 F 04/10/18 14:10 Pulse Rate 80 04/10/18 14:10 Respiratory Rate 20 04/10/18 14:10 Blood Pressure 133/59 04/10/18 14:10 O2 Sat by Pulse Oximetry (%) 95 04/10/18 10:00 Constitutional: Yes: Calm Eyes: Yes: Conjunctiva Clear HENT: Yes: Atraumatic Neck: Yes: Supple Cardiovascular: Yes: S1, S2 Respiratory: Yes: CTA Bilaterally, On Nasal O2 Gastrointestinal: Yes: Normal Bowel Sounds, Soft Genitourinary: Yes: WNL Musculoskeletal: Yes: WNL Edema: No Neurological: Yes: Oriented Psychiatric: Yes: Oriented Labs: CBC, BMP 04/07/18 08:15 04/09/18 05:30 INR, PTT INR 1.05 (0.82-1.09) 04/07/18 08:15 Problem List - Problems (1) ESRD (end stage renal disease) Code(s): N18.6 - END STAGE RENAL DISEASE (2) Anemia Code(s): D64.9 - ANEMIA, UNSPECIFIED Qualifiers: Anemia type: due to chronic kidney disease Chronic kidney disease stage: on chronic dialysis Qualified Code(s): N18.6 - End stage renal disease; D63.1 - Anemia in chronic kidney disease; Z99.2 - Dependence on renal dialysis (3) CHF (congestive heart failure), NYHA class IV Code(s): I50.9 - HEART FAILURE, UNSPECIFIED Qualifiers: Congestive heart failure type: combined Congestive heart failure chronicity : chronic Qualified Code(s): I50.42 - Chronic combined systolic (congestive) and diastolic (congestive) heart failure Assessment/Plan Current Medications Generic Name Dose Route Start Last Admin Trade Name Freq PRN Reason Stop Dose Admin Acetaminophen/Codeine Phosphate 1 tab 04/07/18 14:17 04/10/18 02:45 Tylenol # 3 - PO 1 tab Q8H PRN Administration PAIN LEVEL 6-10 Albuterol Sulfate 1 amp 04/06/18 22:48 04/10/18 09:15 Ventolin 0.083% Nebulizer Soln - NEB 1 amp Q8H PRN Administration Dyspnea Aspirin 81 mg 04/07/18 10:00 04/10/18 09:15 Asa - PO 81 mg DAILY [facility] Administration Atorvastatin Calcium 20 mg 04/07/18 22:00 04/09/18 22:05 Lipitor - PO 20 mg HS [facility] Administration Calcium Acetate 667 mg 04/07/18 08:00 04/10/18 12:45 Phoslo - PO 667 mg TIDCM [facility] Administration Clopidogrel Bisulfate 75 mg 04/08/18 10:00 04/10/18 09:15 Plavix - PO 75 mg DAILY [facility] Administration Gabapentin 100 mg 04/11/18 10:00 Neurontin - PO DAILY [facility] Sodium Chloride 250 mls @ 3,000 mls/hr 04/09/18 15:50 Normal Saline - IV 04/10/18 15:49 PRN PRN Hypotension during Dialysis Insulin Aspart 1 vial 04/07/18 07:00 04/10/18 12:45 Novolog Vial Sliding Scale - SQ 2 units ACHS [facility] Administration Protocol Insulin Detemir 10 units 04/07/18 22:00 04/09/18 22:09 Levemir Vial SQ 10 units HS [facility] Administration Levothyroxine Sodium 25 mcg 04/07/18 07:00 04/10/18 06:31 Synthroid - PO 25 mcg DAILY@0700 [facility] Administration Metoprolol Succinate 100 mg 04/07/18 14:45 04/10/18 09:15 Toprol Xl - PO 100 mg DAILY [facility] Administration Pantoprazole Sodium 40 mg 04/07/18 10:00 04/10/18 09:15 Protonix - PO 40 mg DAILY [facility] Administration Pramipexole Dihydrochloride 0.125 mg 04/07/18 22:00 04/10/18 13:18 Mirapex - PO 0.125 mg TID [facility] Administration Sacubitril/Valsartan 1 tab 04/07/18 10:00 04/10/18 09:15 Entresto 49 Mg-51 Mg Tablet PO 1 tab BID [facility] Administration Senna 1 tab 04/07/18 22:00 04/09/18 22:06 Senna - PO 1 tab HS [facility] Administration Sertraline HCl 50 mg 04/07/18 22:00 04/09/18 22:06 Zoloft - PO 50 mg HS [facility] Administration Impression 1. ESRD 2. fluid overload 3. DM 4. CAD 5. PVD 6. DFU 7. anemia 8. steal syndrome Plan - HD in am - monitor labs - renal diet and fluid restriction - discussed with vascular, will need follow up after discharge for possible steal - will follow Dr Dove
--- NOTE | 2018-04-10 19:37 | PN ---
Progress Note (short form) - Note Progress Note: Pt seen at bedside, awake and alert, comfortable at this time. I asked him how his hand feels he replies "compared to before, much better, but my hand still gets numb and weak at times". On exam the hand is warm and pink, sennsation is reduced but present, motor function is weak but present. No signs of impending tissue loss. The pt was scheduled multiple times in the past for DRIL procedure, however due to medical issues waas cancelled. We will schedule him again for the procedure, discussed with Dr. Navas.
[2018-04-10] MEDS: ATORVASTATIN CA 20 MG TABLET (FP) PO SCH (21:03)
[2018-04-10] MEDS: SERTRALINE HCL 25 MG TABLET (FP) PO SCH (21:03)
[2018-04-10] MEDS: SENNOSIDES 8.6MG TABLET (FP) PO SCH (21:04)
[2018-04-10] MEDS: INSULIN (LEVEMIR) 100 UNITS/ML UNITS SQ SCH (21:08)
[2018-04-11] MEDS: PRAMIPEXOLE DIHYDROCHLORIDE 0.125 MG TABLET PO SCH ×3 (05:30→22:08)
[2018-04-11] MEDS: LEVOTHYROXINE NA 25 MCG TABLET (FP) PO SCH (05:59)
[2018-04-11] MEDS: INSULIN SLIDING SCALE (NOVOLOG) 1 VIAL SQ SCH ×4 (05:59→22:12)
[2018-04-11] MEDS ORDERED: SODIUM CHLORIDE 250 ML IV PRN (09:27)
--- NOTE | 2018-04-11 09:45 | PN ---
Progress Note, Physician History of Present Illness: Mental status resolved to baseline, denies chest pain or dyspnea. Myoclonic jerks improved with HD. - Current Medication List Current Medications: Active Medications Acetaminophen/Codeine Phosphate (Tylenol # 3 -) 1 tab PO Q8H PRN PRN Reason: PAIN LEVEL 6-10 Last Admin: 04/10/18 02:45 Dose: 1 tab Albuterol Sulfate (Ventolin 0.083% Nebulizer Soln -) 1 amp NEB Q8H PRN PRN Reason: Dyspnea Last Admin: 04/10/18 09:15 Dose: 1 amp Aspirin (Asa -) 81 mg PO DAILY [facility] Last Admin: 04/10/18 09:15 Dose: 81 mg Atorvastatin Calcium (Lipitor -) 20 mg PO HS [facility] Last Admin: 04/10/18 21:03 Dose: 20 mg Calcium Acetate (Phoslo -) 667 mg PO TIDCM [facility] Last Admin: 04/10/18 17:47 Dose: 667 mg Clopidogrel Bisulfate (Plavix -) 75 mg PO DAILY [facility] Last Admin: 04/10/18 09:15 Dose: 75 mg Epoetin Parmjit (Procrit -) 6,000 unit IVPUSH ONCE ONE Stop: 04/11/18 12:01 Gabapentin (Neurontin -) 100 mg PO DAILY [facility] Insulin Aspart (Novolog Vial Sliding Scale -) 1 vial SQ [facility]; Protocol Last Admin: 04/11/18 05:59 Dose: Not Given Insulin Detemir (Levemir Vial) 10 units SQ [facility] Last Admin: 04/10/18 21:08 Dose: 10 units Levothyroxine Sodium (Synthroid -) 25 mcg PO DAILY@0700 [facility] Last Admin: 04/11/18 05:59 Dose: Not Given Metoprolol Succinate (Toprol Xl -) 100 mg PO DAILY [facility] Last Admin: 04/10/18 09:15 Dose: 100 mg Pantoprazole Sodium (Protonix -) 40 mg PO DAILY [facility] Last Admin: 04/10/18 09:15 Dose: 40 mg Pramipexole Dihydrochloride (Mirapex -) 0.125 mg PO TID [facility] Last Admin: 04/11/18 05:30 Dose: Not Given Sacubitril/Valsartan (Entresto 49 Mg-51 Mg Tablet) 1 tab PO BID [facility] Last Admin: 04/10/18 21:03 Dose: 1 tab Senna (Senna -) 1 tab PO [facility] Last Admin: 04/10/18 21:04 Dose: Not Given Sertraline HCl (Zoloft -) 50 mg PO [facility] Last Admin: 04/10/18 21:03 Dose: 50 mg - Objective Vital Signs: Vital Signs Temperature 98.3 F 04/11/18 09:05 Pulse Rate 80 04/11/18 09:39 Respiratory Rate 18 04/11/18 09:39 Blood Pressure 141/62 04/11/18 09:39 O2 Sat by Pulse Oximetry (%) 96 04/10/18 21:00 Constitutional: Yes: No Distress, Calm, Thin Neck: Yes: Supple Cardiovascular: Yes: Regular Rate and Rhythm, Murmur (1/6 SM) Respiratory: Yes: Regular, Diminished, On Nasal O2 Gastrointestinal: Yes: Normal Bowel Sounds, Soft Edema: No Labs: CBC, BMP 04/07/18 08:15 04/09/18 05:30 INR, PTT INR 1.05 (0.82-1.09) 04/07/18 08:15 Problem List - Problems (1) Altered mental status Code(s): R41.82 - ALTERED MENTAL STATUS, UNSPECIFIED Qualifiers: Altered mental status type: unspecified Qualified Code(s): R41.82 - Altered mental status, unspecified (2) Chronic HFrEF (heart failure with reduced ejection fraction) Code(s): I50.22 - CHRONIC SYSTOLIC (CONGESTIVE) HEART FAILURE (3) ESRD (end stage renal disease) Code(s): N18.6 - END STAGE RENAL DISEASE (4) Slurred speech Code(s): R47.81 - SLURRED SPEECH (5) ASHD (arteriosclerotic heart disease) Code(s): I25.10 - ATHSCL HEART DISEASE OF [place] CORONARY ARTERY W/O ANG PCTRS (6) CHF (congestive heart failure), NYHA class IV Code(s): I50.9 - HEART FAILURE, UNSPECIFIED Qualifiers: Congestive heart failure type: combined Congestive heart failure chronicity : chronic Qualified Code(s): I50.42 - Chronic combined systolic (congestive) and diastolic (congestive) heart failure (7) Diabetes Code(s): E11.9 - TYPE 2 DIABETES MELLITUS WITHOUT COMPLICATIONS Qualifiers: Diabetes mellitus type: type 2 Diabetes mellitus fpc insulin use: without mail superintendent use Diabetes mellitus complication status: with neurologic complications (8) HTN (hypertension) Code(s): I10 - ESSENTIAL (PRIMARY) HYPERTENSION Qualifiers: Hypertension type: essential hypertension Qualified Code(s): I10 - Essential (primary) hypertension (9) Hyperkalemia Code(s): E87.5 - HYPERKALEMIA (10) Hypothyroidism Code(s): E03.9 - HYPOTHYROIDISM, UNSPECIFIED Qualifiers: Hypothyroidism type: unspecified Qualified Code(s): E03.9 - Hypothyroidism , unspecified (11) ICD (implantable cardioverter-defibrillator) in place Code(s): Z95.810 - PRESENCE OF AUTOMATIC (IMPLANTABLE) CARDIAC DEFIBRILLATOR (12) PVD (peripheral vascular disease) Code(s): I73.9 - PERIPHERAL VASCULAR DISEASE, UNSPECIFIED (13) S/P CABG (coronary artery bypass graft) Code(s): Z95.1 - PRESENCE OF AORTOCORONARY BYPASS GRAFT (14) S/P peripheral artery angioplasty with stent placement Code(s): Z95.820 - PERIPHERAL VASCULAR ANGIOPLASTY STATUS W IMPLANTS AND GRAFTS (15) Steal syndrome of dialysis vascular access Code(s): T82.898A - OTH COMPLICATION OF VASCULAR PROSTH DEV/GRFT, INIT Qualifiers: Encounter type: subsequent encounter Qualified Code(s): T82.898D - Other specified complication of vascular prosthetic devices, implants and grafts, subsequent encounter (16) Anemia Code(s): D64.9 - ANEMIA, UNSPECIFIED Qualifiers: Anemia type: due to chronic kidney disease Chronic kidney disease stage: on chronic dialysis Qualified Code(s): N18.6 - End stage renal disease; D63.1 - Anemia in chronic kidney disease; Z99.2 - Dependence on renal dialysis (17) Ischemic dilated cardiomyopathy Code(s): I25.5 - ISCHEMIC CARDIOMYOPATHY; I42.0 - DILATED CARDIOMYOPATHY Assessment/Plan 03/01/2018 Echo: Normal LV size with severely decreased LV fxn, mild TR, tr MR, pleural efusion 1. Altered mental status resolved, unlikely stroke, myoclonic jerks 2/2 uremia improved 2. Chronic Systolic Heart Failure referable to ischemic dilated cardiomyopathy/ severe LV systolic dysfunction with left effusion 3. CAD post remote [place] post CABG angina pectoris, stable 4. Post prophylactic ICD implant ([employer]tr[employer]'s device) 5. HTN 6. IDDM 7. Hypercholesterolemia 8. PAD with left toe gangrene s/p aortogram, LLE angiogram, SFA atherectomy, DCB SFA angioplasty, with sfa stent 9. ESRD on HD, right AVG with steal and hyperkalemia 10. Anemia of CKD 11. Hypothyroidism 12. Altered mental status, myoclonic jerks maybe worsened by gabapentin or uremia 13. H/o GI bleed PLAN: 1. HD per nephrology, monitor mental status, placed on Mirapex 2. ICD interrogation showed no episodes of AT or AF, no previous history I saw in [place] records, monitor telemetry 3. Continue Toprol XL 100 qd 4. Continue Entresto 49/51 bid and monitor hyperkalemia closely 5. Continue ASA 81 qd and Plavix 75 qd 6. Continue Lipitor 20 qhs 7. DVT and GI prophylaxis, encourage ambulation 8. Elective right arm angiogram and DRIL procedure, may proceed from CV- standpoint
[2018-04-11 09:57] LABS: HEMATOCRIT 29.4 % (35.4-49); HEMOGLOBIN 9.5 GM/dL (11.7-16.9); MCH 29.3 pg (25.7-33.7); MCHC 32.3 g/dl (32.0-35.9); MEAN CELL VOLUME 90.7 fl (80-96); MEAN PLT VOLUME 9.6 fl (7.5-11.1); PLATELET COUNT 190 K/MM3 (134-434); RBC 3.24 M/mm3 (4.00-5.60); RDW 20.5 % (11.9-15.9); WHITE BLOOD COUNT 8.2 K/mm3 (4.0-10.0)
[2018-04-11] MEDS: CALCIUM ACETATE 667 MG CAPSULE (FP) PO SCH ×3 (10:00→17:30)
[2018-04-11 10:18] LABS: ANION GAP 9 (8-16); BLOOD UREA NITROGEN 40 mg/dL (7-18); CHLORIDE 101 mmol/L (98-107); CO2 29 mmol/L (21-32); CREATININE 5.4 mg/dL (0.7-1.3); GLUCOSE,RANDOM 270 mg/dL (74-106); POTASSIUM 5.4 mmol/L (3.5-5.1); SODIUM 139 mmol/L (136-145)
--- NOTE | 2018-04-11 10:56 | PN ---
Progress Note (short form) - Note Progress Note: RENAL Pt is awake and alert says he feels better currently on hemodialysis Last Vital Signs Temp Pulse Resp BP Pulse Ox 98.3 F 80 18 141/62 96 04/11/18 09:05 04/11/18 09:39 04/11/18 09:39 04/11/18 09:39 04/10/18 21:00 lungs clear anteriorly cvs s1s2 rr abd soft ext no edema neuro a+o, seems confused Current Medications Generic Name Dose Route Start Last Admin Trade Name Freq PRN Reason Stop Dose Admin Acetaminophen/Codeine Phosphate 1 tab 04/07/18 14:17 04/10/18 02:45 Tylenol # 3 - PO 1 tab Q8H PRN Administration PAIN LEVEL 6-10 Albuterol Sulfate 1 amp 04/06/18 22:48 04/10/18 09:15 Ventolin 0.083% Nebulizer Soln - NEB 1 amp Q8H PRN Administration Dyspnea Aspirin 81 mg 04/07/18 10:00 04/10/18 09:15 Asa - PO 81 mg DAILY [facility] Administration Atorvastatin Calcium 20 mg 04/07/18 22:00 04/10/18 21:03 Lipitor - PO 20 mg HS [facility] Administration Calcium Acetate 667 mg 04/07/18 08:00 04/10/18 17:47 Phoslo - PO 667 mg TIDCM [facility] Administration Clopidogrel Bisulfate 75 mg 04/08/18 10:00 04/10/18 09:15 Plavix - PO 75 mg DAILY [facility] Administration Epoetin Parmjit 6,000 unit 04/11/18 12:00 Procrit - IVPUSH 04/11/18 12:01 ONCE ONE Gabapentin 100 mg 04/11/18 10:00 Neurontin - PO DAILY [facility] Insulin Aspart 1 vial 04/07/18 07:00 04/11/18 05:59 Novolog Vial Sliding Scale - SQ Not Given ACHS [facility] Protocol Insulin Detemir 10 units 04/07/18 22:00 04/10/18 21:08 Levemir Vial SQ 10 units HS [facility] Administration Levothyroxine Sodium 25 mcg 04/07/18 07:00 04/11/18 05:59 Synthroid - PO Not Given DAILY@0700 [facility] Metoprolol Succinate 100 mg 04/07/18 14:45 04/10/18 09:15 Toprol Xl - PO 100 mg DAILY [facility] Administration Pantoprazole Sodium 40 mg 04/07/18 10:00 04/10/18 09:15 Protonix - PO 40 mg DAILY [facility] Administration Pramipexole Dihydrochloride 0.125 mg 04/07/18 22:00 04/11/18 05:30 Mirapex - PO Not Given TID [facility] Sacubitril/Valsartan 1 tab 04/07/18 10:00 04/10/18 21:03 Entresto 49 Mg-51 Mg Tablet PO 1 tab BID [facility] Administration Senna 1 tab 04/07/18 22:00 04/10/18 21:04 Senna - PO Not Given HS [facility] Sertraline HCl 50 mg 04/07/18 22:00 04/10/18 21:03 Zoloft - PO 50 mg HS [facility] Administration CBC, BMP 04/11/18 09:20 04/11/18 09:20 IMPRESSION ESRD CHF myoclonic jerks better hyperkalemia likely imprved with hd steal syndrome PLAN continue hd tiw for outpatient DRIL procedure would dc gabapentin altogether [facility]
[2018-04-11] MEDS ORDERED: EPOETIN ALFA 3,000 UNIT/1 ML ML IVPUSH ONE (12:00)
[2018-04-11] MEDS ORDERED: PT OWN MED DRAWER 7, Y5N ONE ×3 (13:32→22:06)
--- NOTE | 2018-04-11 13:35 | PN ---
Progress Note (short form) - Note Progress Note: pt seen/examined comfortable all f/u noted DRIL procedure being planned eating lunch alert and awake Vital Signs Temp 98.3 F 04/11/18 09:05 Pulse 81 04/11/18 13:04 Resp 18 04/11/18 13:04 BP 175/78 04/11/18 13:04 Pulse Ox 96 04/10/18 21:00 Intake & Output 04/10/18 04/11/18 04/11/18 23:59 11:59 23:59 Intake Total 620 310 Output Total 500 300 Balance 120 10 Weight 144 lb 4 oz Intake: IV 10 10 left forearm 10 10 Oral 610 300 Output: Urine 500 300 Void 500 300 Other: Voiding Method Urinal Toilet Toilet # Unmeasured Voids Void 1 Bowel Movement No No Weight Measurement Method Standing Scale 2 Active Medications Acetaminophen/Codeine Phosphate (Tylenol # 3 -) 1 tab PO Q8H PRN PRN Reason: PAIN LEVEL 6-10 Last Admin: 04/10/18 02:45 Dose: 1 tab Albuterol Sulfate (Ventolin 0.083% Nebulizer Soln -) 1 amp NEB Q8H PRN PRN Reason: Dyspnea Last Admin: 04/10/18 09:15 Dose: 1 amp Aspirin (Asa -) 81 mg PO DAILY [facility] Last Admin: 04/10/18 09:15 Dose: 81 mg Atorvastatin Calcium (Lipitor -) 20 mg PO [facility] Last Admin: 04/10/18 21:03 Dose: 20 mg Calcium Acetate (Phoslo -) 667 mg PO TIDCM [facility] Last Admin: 04/10/18 17:47 Dose: 667 mg Clopidogrel Bisulfate (Plavix -) 75 mg PO DAILY [facility] Last Admin: 04/10/18 09:15 Dose: 75 mg Gabapentin (Neurontin -) 100 mg PO DAILY [facility] Insulin Aspart (Novolog Vial Sliding Scale -) 1 vial SQ [facility]; Protocol Last Admin: 04/11/18 05:59 Dose: Not Given Insulin Detemir (Levemir Vial) 10 units SQ [facility] Last Admin: 04/10/18 21:08 Dose: 10 units Levothyroxine Sodium (Synthroid -) 25 mcg PO DAILY@0700 [facility] Last Admin: 04/11/18 05:59 Dose: Not Given Metoprolol Succinate (Toprol Xl -) 100 mg PO DAILY [facility] Last Admin: 04/10/18 09:15 Dose: 100 mg Pantoprazole Sodium (Protonix -) 40 mg PO DAILY [facility] Last Admin: 04/10/18 09:15 Dose: 40 mg Pramipexole Dihydrochloride (Mirapex -) 0.125 mg PO TID [facility] Last Admin: 04/11/18 05:30 Dose: Not Given Sacubitril/Valsartan (Entresto 49 Mg-51 Mg Tablet) 1 tab PO BID [facility] Last Admin: 04/10/18 21:03 Dose: 1 tab Senna (Senna -) 1 tab PO HS [facility] Last Admin: 04/10/18 21:04 Dose: Not Given Sertraline HCl (Zoloft -) 50 mg PO HS [facility] Last Admin: 04/10/18 21:03 Dose: 50 mg CBC, BMP 04/11/18 09:20 04/11/18 09:20 Microbiology 04/06/18 20:08 Blood Culture - Preliminary Blood - Peripheral Venous NO GROWTH OBTAINED AFTER 96 HOURS, INCUBATION TO CONTINUE FOR 1 DAYS. 04/06/18 20:08 Blood Culture - Preliminary Blood - Peripheral Venous NO GROWTH OBTAINED AFTER 96 HOURS, INCUBATION TO CONTINUE FOR 1 DAYS. Physical Exam. Constitutional: Yes: No Distress. comfortable. awake Neck: Yes: Supple/ no jvd Cardiovascular: Yes: Regular Rate and Rhythm Respiratory: Yes: Diminished Gastrointestinal: Yes: Soft/ non tender. Wound/Incision: Yes: Other (left toe-- dry gangrene) Neurological: Yes: Other (alert/ awake) Problem List - Problems (1) Altered mental status Code(s): R41.82 - ALTERED MENTAL STATUS, UNSPECIFIED (2) Chronic HFrEF (heart failure with reduced ejection fraction) Code(s): I50.22 - CHRONIC SYSTOLIC (CONGESTIVE) HEART FAILURE (3) ESRD (end stage renal disease) Code(s): N18.6 - END STAGE RENAL DISEASE (4) Slurred speech Code(s): R47.81 - SLURRED SPEECH (5) ASHD (arteriosclerotic heart disease) Code(s): I25.10 - ATHSCL HEART DISEASE OF [place] CORONARY ARTERY W/O ANG PCTRS (6) Anemia Code(s): D64.9 - ANEMIA, UNSPECIFIED Qualifiers: Anemia type: due to chronic kidney disease Chronic kidney disease stage: on chronic dialysis Qualified Code(s): N18.6 - End stage renal disease; D63.1 - Anemia in chronic kidney disease; Z99.2 - Dependence on renal dialysis (7) CHF (congestive heart failure), NYHA class IV Code(s): I50.9 - HEART FAILURE, UNSPECIFIED Qualifiers: Congestive heart failure type: combined Congestive heart failure chronicity : acute on chronic Qualified Code(s): I50.43 - Acute on chronic combined systolic (congestive) and diastolic (congestive) heart failure (8) Diabetes Code(s): E11.9 - TYPE 2 DIABETES MELLITUS WITHOUT COMPLICATIONS Qualifiers: Diabetes mellitus type: type 2 Diabetes mellitus bed bug exterminator insulin use: without [place] [facility] use Diabetes mellitus complication status: with neurologic complications (9) Gangrene Code(s): I96 - [place], NOT ELSEWHERE CLASSIFIED (10) Hyperkalemia Code(s): E87.5 - HYPERKALEMIA (11) ICD (implantable cardioverter-defibrillator) in place Code(s): Z95.810 - PRESENCE OF AUTOMATIC (IMPLANTABLE) CARDIAC DEFIBRILLATOR (12) PVD (peripheral vascular disease) Code(s): I73.9 - PERIPHERAL VASCULAR DISEASE, UNSPECIFIED (13) S/P CABG (coronary artery bypass graft) Code(s): Z95.1 - PRESENCE OF AORTOCORONARY BYPASS GRAFT (14) S/P peripheral artery angioplasty with stent placement Code(s): Z95.820 - PERIPHERAL VASCULAR ANGIOPLASTY STATUS W IMPLANTS AND GRAFTS (15) Steal syndrome of dialysis vascular access Code(s): T82.898A - [facility] COMPLICATION OF VASCULAR PROSTH DEV/GRFT, INIT Qualifiers: Encounter type: subsequent encounter Qualified Code(s): T82.898D - Other specified complication of vascular prosthetic devices, implants and grafts, subsequent encounter Assessment/Plan clinically stable. no cva Continue present care physical therapy on Mirapex . DRIL procedure being planned will follow Problem List - Problems (1) Altered mental status Code(s): R41.82 - ALTERED MENTAL STATUS, UNSPECIFIED Qualifiers: Altered mental status type: unspecified Qualified Code(s): R41.82 - Altered mental status, unspecified (2) Chronic HFrEF (heart failure with reduced ejection fraction) Code(s): I50.22 - CHRONIC SYSTOLIC (CONGESTIVE) HEART FAILURE (3) ESRD (end stage renal disease) Code(s): N18.6 - END STAGE RENAL DISEASE (4) Slurred speech Code(s): R47.81 - SLURRED SPEECH (5) ASHD (arteriosclerotic heart disease) Code(s): I25.10 - ATHSCL HEART DISEASE OF [place] CORONARY ARTERY W/O ANG PCTRS (6) Anemia Code(s): D64.9 - ANEMIA, UNSPECIFIED Qualifiers: Anemia type: due to chronic kidney disease Chronic kidney disease stage: on chronic dialysis Qualified Code(s): N18.6 - End stage renal disease; D63.1 - Anemia in chronic kidney disease; Z99.2 - Dependence on renal dialysis (7) CHF (congestive heart failure), NYHA class IV Code(s): I50.9 - HEART FAILURE, UNSPECIFIED Qualifiers: Congestive heart failure type: combined Congestive heart failure chronicity : chronic Qualified Code(s): I50.42 - Chronic combined systolic (congestive) and diastolic (congestive) heart failure (8) Diabetes Code(s): E11.9 - TYPE 2 DIABETES MELLITUS WITHOUT COMPLICATIONS Qualifiers: Diabetes mellitus type: type 2 Diabetes mellitus [place] [facility] insulin use: without bed bug exterminator use Diabetes mellitus complication status: with neurologic complications (9) Gangrene Code(s): I96 - [place], NOT ELSEWHERE CLASSIFIED (10) Hyperkalemia Code(s): E87.5 - HYPERKALEMIA (11) ICD (implantable cardioverter-defibrillator) in place Code(s): Z95.810 - PRESENCE OF AUTOMATIC (IMPLANTABLE) CARDIAC DEFIBRILLATOR (12) PVD (peripheral vascular disease) Code(s): I73.9 - PERIPHERAL VASCULAR DISEASE, UNSPECIFIED (13) S/P CABG (coronary artery bypass graft) Code(s): Z95.1 - PRESENCE OF AORTOCORONARY BYPASS GRAFT (14) S/P peripheral artery angioplasty with stent placement Code(s): Z95.820 - PERIPHERAL VASCULAR ANGIOPLASTY STATUS W IMPLANTS AND GRAFTS (15) Steal syndrome of dialysis vascular access Code(s): T82.898A - OTH COMPLICATION OF VASCULAR PROSTH DEV/GRFT, INIT Qualifiers: Encounter type: subsequent encounter Qualified Code(s): T82.898D - Other specified complication of vascular prosthetic devices, implants and grafts, subsequent encounter
[2018-04-11] MEDS: GABAPENTIN 100 MG CAPSULE (FP) PO SCH (14:28)
[2018-04-11] MEDS: ASPIRIN 81 MG CHEWABLE TABLETS PO SCH (14:28)
[2018-04-11] MEDS: CLOPIDOGREL BISULFATE 75 MG TABLET (FP) PO SCH (14:28)
[2018-04-11] MEDS: SACUBITRIL/VALSARTAN 49 MG-51 MG TABLET PO SCH ×2 (14:28→22:08)
[2018-04-11] MEDS: PANTOPRAZOLE 40 MG TABLET (FP) PO SCH (14:28)
[2018-04-11] MEDS ORDERED: INSULIN (NOVOLOG) ASPART 100 UNITS/ML 10ML VIAL ONE (21:58)
[2018-04-11] MEDS: ATORVASTATIN CA 20 MG TABLET (FP) PO SCH (22:08)
[2018-04-11] MEDS: SERTRALINE HCL 25 MG TABLET (FP) PO SCH (22:08)
[2018-04-11] MEDS: SENNOSIDES 8.6MG TABLET (FP) PO SCH (22:09)
[2018-04-11] MEDS: INSULIN (LEVEMIR) 100 UNITS/ML UNITS SQ SCH (22:23)
[2018-04-12] MEDS: INSULIN SLIDING SCALE (NOVOLOG) 1 VIAL SQ SCH ×4 (06:26→21:46)
[2018-04-12] MEDS: LEVOTHYROXINE NA 25 MCG TABLET (FP) PO SCH (06:38)
[2018-04-12] MEDS: PRAMIPEXOLE DIHYDROCHLORIDE 0.125 MG TABLET PO SCH ×3 (06:38→21:43)
[2018-04-12] MEDS ORDERED: PT OWN MED DRAWER 7, Y5N ONE ×2 (09:08→21:23)
[2018-04-12] MEDS: CLOPIDOGREL BISULFATE 75 MG TABLET (FP) PO SCH (09:22)
[2018-04-12] MEDS: PANTOPRAZOLE 40 MG TABLET (FP) PO SCH (09:22)
[2018-04-12] MEDS: ASPIRIN 81 MG CHEWABLE TABLETS PO SCH (09:22)
[2018-04-12] MEDS: CALCIUM ACETATE 667 MG CAPSULE (FP) PO SCH ×3 (09:22→17:25)
[2018-04-12] MEDS: SACUBITRIL/VALSARTAN 49 MG-51 MG TABLET PO SCH (09:23)
--- NOTE | 2018-04-12 10:53 | PN ---
Progress Note, Physician History of Present Illness: Mental status resolved to baseline, denies chest pain or dyspnea. Myoclonic jerks improved with HD. - Current Medication List Current Medications: Active Medications Acetaminophen/Codeine Phosphate (Tylenol # 3 -) 1 tab PO Q8H PRN PRN Reason: PAIN LEVEL 6-10 Last Admin: 04/10/18 02:45 Dose: 1 tab Albuterol Sulfate (Ventolin 0.083% Nebulizer Soln -) 1 amp NEB Q8H PRN PRN Reason: Dyspnea Last Admin: 04/10/18 09:15 Dose: 1 amp Aspirin (Asa -) 81 mg PO DAILY [facility] Last Admin: 04/12/18 09:22 Dose: 81 mg Atorvastatin Calcium (Lipitor -) 20 mg PO [facility] Last Admin: 04/11/18 22:08 Dose: 20 mg Calcium Acetate (Phoslo -) 667 mg PO TIDCM [facility] Last Admin: 04/12/18 09:22 Dose: 667 mg Clopidogrel Bisulfate (Plavix -) 75 mg PO DAILY [facility] Last Admin: 04/12/18 09:22 Dose: 75 mg Gabapentin (Neurontin -) 100 mg PO DAILY [facility] Last Admin: 04/11/18 14:28 Dose: 100 mg Insulin Aspart (Novolog Vial Sliding Scale -) 1 vial SQ [facility]; Protocol Last Admin: 04/12/18 06:26 Dose: Not Given Insulin Detemir (Levemir Vial) 10 units SQ [facility] Last Admin: 04/11/18 22:23 Dose: 10 units Levothyroxine Sodium (Synthroid -) 25 mcg PO DAILY@0700 [facility] Last Admin: 04/12/18 06:38 Dose: 25 mcg Metoprolol Succinate (Toprol Xl -) 100 mg PO DAILY [facility] Last Admin: 04/12/18 09:22 Dose: 100 mg Pantoprazole Sodium (Protonix -) 40 mg PO DAILY [facility] Last Admin: 04/12/18 09:22 Dose: 40 mg Pramipexole Dihydrochloride (Mirapex -) 0.125 mg PO TID [facility] Last Admin: 04/12/18 06:38 Dose: 0.125 mg Sacubitril/Valsartan (Entresto 49 Mg-51 Mg Tablet) 1 tab PO BID [facility] Last Admin: 04/12/18 09:23 Dose: 1 tab Senna (Senna -) 1 tab PO [facility] Last Admin: 04/11/18 22:09 Dose: 1 tab Sertraline HCl (Zoloft -) 50 mg PO [facility] Last Admin: 04/11/18 22:08 Dose: 50 mg - Objective Vital Signs: Vital Signs Temperature 98.2 F 04/12/18 09:00 Pulse Rate 80 04/12/18 09:00 Respiratory Rate 14 04/12/18 09:00 Blood Pressure 124/60 04/12/18 09:00 O2 Sat by Pulse Oximetry (%) 95 04/11/18 20:42 Constitutional: Yes: No Distress, Calm, Thin Neck: Yes: Supple Cardiovascular: Yes: Regular Rate and Rhythm, Murmur (1/6 SM) Respiratory: Yes: Regular, Diminished Gastrointestinal: Yes: Normal Bowel Sounds, Soft Edema: No Labs: CBC, BMP 04/11/18 09:20 04/11/18 09:20 INR, PTT INR 1.05 (0.82-1.09) 04/07/18 08:15 Problem List - Problems (1) Altered mental status Code(s): R41.82 - ALTERED MENTAL STATUS, UNSPECIFIED Qualifiers: Altered mental status type: unspecified Qualified Code(s): R41.82 - Altered mental status, unspecified (2) Chronic HFrEF (heart failure with reduced ejection fraction) Code(s): I50.22 - CHRONIC SYSTOLIC (CONGESTIVE) HEART FAILURE (3) ESRD (end stage renal disease) Code(s): N18.6 - END STAGE RENAL DISEASE (4) Slurred speech Code(s): R47.81 - SLURRED SPEECH (5) ASHD (arteriosclerotic heart disease) Code(s): I25.10 - ATHSCL HEART DISEASE OF [place] CORONARY ARTERY W/O ANG PCTRS (6) CHF (congestive heart failure), NYHA class IV Code(s): I50.9 - HEART FAILURE, UNSPECIFIED Qualifiers: Congestive heart failure type: combined Congestive heart failure chronicity : chronic Qualified Code(s): I50.42 - Chronic combined systolic (congestive) and diastolic (congestive) heart failure (7) Diabetes Code(s): E11.9 - TYPE 2 DIABETES MELLITUS WITHOUT COMPLICATIONS Qualifiers: Diabetes mellitus type: type 2 Diabetes mellitus nursing home insulin use: without nursing home use Diabetes mellitus complication status: with neurologic complications (8) HTN (hypertension) Code(s): I10 - ESSENTIAL (PRIMARY) HYPERTENSION Qualifiers: Hypertension type: essential hypertension Qualified Code(s): I10 - Essential (primary) hypertension (9) Hyperkalemia Code(s): E87.5 - HYPERKALEMIA (10) Hypothyroidism Code(s): E03.9 - HYPOTHYROIDISM, UNSPECIFIED Qualifiers: Hypothyroidism type: unspecified Qualified Code(s): E03.9 - Hypothyroidism , unspecified (11) ICD (implantable cardioverter-defibrillator) in place Code(s): Z95.810 - PRESENCE OF AUTOMATIC (IMPLANTABLE) CARDIAC DEFIBRILLATOR (12) PVD (peripheral vascular disease) Code(s): I73.9 - PERIPHERAL VASCULAR DISEASE, UNSPECIFIED (13) S/P CABG (coronary artery bypass graft) Code(s): Z95.1 - PRESENCE OF AORTOCORONARY BYPASS GRAFT (14) S/P peripheral artery angioplasty with stent placement Code(s): Z95.820 - PERIPHERAL VASCULAR ANGIOPLASTY STATUS W IMPLANTS AND GRAFTS (15) Steal syndrome of dialysis vascular access Code(s): T82.898A - OTH COMPLICATION OF VASCULAR PROSTH DEV/GRFT, INIT Qualifiers: Encounter type: subsequent encounter Qualified Code(s): T82.898D - Other specified complication of vascular prosthetic devices, implants and grafts, subsequent encounter (16) Anemia Code(s): D64.9 - ANEMIA, UNSPECIFIED Qualifiers: Anemia type: due to chronic kidney disease Chronic kidney disease stage: on chronic dialysis Qualified Code(s): N18.6 - End stage renal disease; D63.1 - Anemia in chronic kidney disease; Z99.2 - Dependence on renal dialysis (17) Ischemic dilated cardiomyopathy Code(s): I25.5 - ISCHEMIC CARDIOMYOPATHY; I42.0 - DILATED CARDIOMYOPATHY Assessment/Plan 03/01/2018 Echo: Normal LV size with severely decreased LV fxn, mild TR, tr MR, pleural efusion 1. Altered mental status resolved, unlikely stroke, myoclonic jerks 2/2 uremia improved 2. Chronic Systolic Heart Failure referable to ischemic dilated cardiomyopathy/ severe LV systolic dysfunction with left effusion 3. CAD post remote [place] post CABG angina pectoris, stable 4. Post prophylactic ICD implant ([employer]'s device) 5. HTN 6. IDDM 7. Hypercholesterolemia 8. PAD with left toe gangrene s/p aortogram, LLE angiogram, SFA atherectomy, DCB SFA angioplasty, with sfa stent 9. ESRD on HD, right AVG with steal and hyperkalemia 10. Anemia of CKD 11. Hypothyroidism 12. Altered mental status, myoclonic jerks maybe worsened by gabapentin or uremia 13. H/o GI bleed PLAN: 1. HD per nephrology, monitor mental status, placed on Mirapex, will d/c neurontin 2. ICD interrogation showed no episodes of AT or AF, no previous history I saw in [place] records, monitor telemetry 3. Continue Toprol XL 100 qd 4. Continue Entresto 49/51 bid and monitor hyperkalemia closely 5. Continue ASA 81 qd and Plavix 75 qd 6. Continue Lipitor 20 qhs 7. DVT and GI prophylaxis, encourage ambulation 8. Elective right arm angiogram and DRIL procedure, may proceed from CV- standpoint
[2018-04-12] MEDS: GABAPENTIN 100 MG CAPSULE (FP) PO SCH (11:47)
--- NOTE | 2018-04-12 12:37 | PN ---
Progress Note, Physician Chief Complaint: no distress arm is numb and weak no SOB or chest pain - Current Medication List Current Medications: Active Medications Acetaminophen/Codeine Phosphate (Tylenol # 3 -) 1 tab PO Q8H PRN PRN Reason: PAIN LEVEL 6-10 Last Admin: 04/10/18 02:45 Dose: 1 tab Albuterol Sulfate (Ventolin 0.083% Nebulizer Soln -) 1 amp NEB Q8H PRN PRN Reason: Dyspnea Last Admin: 04/10/18 09:15 Dose: 1 amp Aspirin (Asa -) 81 mg PO DAILY [facility] Last Admin: 04/12/18 09:22 Dose: 81 mg Atorvastatin Calcium (Lipitor -) 20 mg PO [facility] Last Admin: 04/11/18 22:08 Dose: 20 mg Calcium Acetate (Phoslo -) 667 mg PO TIDCM [facility] Last Admin: 04/12/18 12:08 Dose: 667 mg Clopidogrel Bisulfate (Plavix -) 75 mg PO DAILY [facility] Last Admin: 04/12/18 09:22 Dose: 75 mg Insulin Aspart (Novolog Vial Sliding Scale -) 1 vial SQ [facility]; Protocol Last Admin: 04/12/18 12:09 Dose: 4 units Insulin Detemir (Levemir Vial) 10 units SQ [facility] Last Admin: 04/11/18 22:23 Dose: 10 units Levothyroxine Sodium (Synthroid -) 25 mcg PO DAILY@0700 [facility] Last Admin: 04/12/18 06:38 Dose: 25 mcg Metoprolol Succinate (Toprol Xl -) 100 mg PO DAILY [facility] Last Admin: 04/12/18 09:22 Dose: 100 mg Pantoprazole Sodium (Protonix -) 40 mg PO DAILY [facility] Last Admin: 04/12/18 09:22 Dose: 40 mg Pramipexole Dihydrochloride (Mirapex -) 0.125 mg PO TID [facility] Last Admin: 04/12/18 06:38 Dose: 0.125 mg Sacubitril/Valsartan (Entresto 49 Mg-51 Mg Tablet) 1 tab PO BID [facility] Last Admin: 04/12/18 09:23 Dose: 1 tab Senna (Senna -) 1 tab PO [facility] Last Admin: 04/11/18 22:09 Dose: 1 tab Sertraline HCl (Zoloft -) 50 mg PO [facility] Last Admin: 04/11/18 22:08 Dose: 50 mg - Objective Vital Signs: Vital Signs Temperature 98.2 F 04/12/18 09:00 Pulse Rate 80 04/12/18 09:00 Respiratory Rate 14 04/12/18 09:00 Blood Pressure 124/60 04/12/18 09:00 O2 Sat by Pulse Oximetry (%) 95 04/11/18 20:42 Constitutional: Yes: No Distress, Calm Cardiovascular: Yes: Regular Rate and Rhythm Respiratory: Yes: Diminished Gastrointestinal: Yes: Normal Bowel Sounds, Soft. No: Tenderness Edema: No Labs: CBC, BMP 04/11/18 09:20 04/11/18 09:20 INR, PTT INR 1.05 (0.82-1.09) 04/07/18 08:15 Problem List - Problems (1) Altered mental status Code(s): R41.82 - ALTERED MENTAL STATUS, UNSPECIFIED Qualifiers: Altered mental status type: unspecified Qualified Code(s): R41.82 - Altered mental status, unspecified (2) Chronic HFrEF (heart failure with reduced ejection fraction) Code(s): I50.22 - CHRONIC SYSTOLIC (CONGESTIVE) HEART FAILURE (3) ESRD (end stage renal disease) Code(s): N18.6 - END STAGE RENAL DISEASE (4) Ischemic dilated cardiomyopathy Code(s): I25.5 - ISCHEMIC CARDIOMYOPATHY; I42.0 - DILATED CARDIOMYOPATHY (5) ASHD (arteriosclerotic heart disease) Code(s): I25.10 - ATHSCL HEART DISEASE OF [place] CORONARY ARTERY W/O ANG PCTRS (6) PVD (peripheral vascular disease) Code(s): I73.9 - PERIPHERAL VASCULAR DISEASE, UNSPECIFIED Assessment/Plan Plan Continue with meds- will need to dc Neurontin eventually Pt tolerating Mirapex Vascular eval- Dr Richard for right arm numbness Spoke with Niece-- insists that the pt has the angiogram with DRIL procedure during this admission He is medically stable for procedure at this time
--- NOTE | 2018-04-12 12:42 | PN ---
Progress Note, Physician History of Present Illness: Pt seen and examined at bedside. He is awake and alert. He denies shortness of breath. - Current Medication List Current Medications: Active Medications Acetaminophen/Codeine Phosphate (Tylenol # 3 -) 1 tab PO Q8H PRN PRN Reason: PAIN LEVEL 6-10 Last Admin: 04/10/18 02:45 Dose: 1 tab Albuterol Sulfate (Ventolin 0.083% Nebulizer Soln -) 1 amp NEB Q8H PRN PRN Reason: Dyspnea Last Admin: 04/10/18 09:15 Dose: 1 amp Aspirin (Asa -) 81 mg PO DAILY [facility] Last Admin: 04/12/18 09:22 Dose: 81 mg Atorvastatin Calcium (Lipitor -) 20 mg PO [facility] Last Admin: 04/11/18 22:08 Dose: 20 mg Calcium Acetate (Phoslo -) 667 mg PO TIDCM [facility] Last Admin: 04/12/18 12:08 Dose: 667 mg Clopidogrel Bisulfate (Plavix -) 75 mg PO DAILY [facility] Last Admin: 04/12/18 09:22 Dose: 75 mg Insulin Aspart (Novolog Vial Sliding Scale -) 1 vial SQ [facility]; Protocol Last Admin: 04/12/18 12:09 Dose: 4 units Insulin Detemir (Levemir Vial) 10 units SQ [facility] Last Admin: 04/11/18 22:23 Dose: 10 units Levothyroxine Sodium (Synthroid -) 25 mcg PO DAILY@0700 [facility] Last Admin: 04/12/18 06:38 Dose: 25 mcg Metoprolol Succinate (Toprol Xl -) 100 mg PO DAILY [facility] Last Admin: 04/12/18 09:22 Dose: 100 mg Pantoprazole Sodium (Protonix -) 40 mg PO DAILY [facility] Last Admin: 04/12/18 09:22 Dose: 40 mg Pramipexole Dihydrochloride (Mirapex -) 0.125 mg PO TID [facility] Last Admin: 04/12/18 06:38 Dose: 0.125 mg Sacubitril/Valsartan (Entresto 49 Mg-51 Mg Tablet) 1 tab PO BID [facility] Last Admin: 04/12/18 09:23 Dose: 1 tab Senna (Senna -) 1 tab PO [facility] Last Admin: 04/11/18 22:09 Dose: 1 tab Sertraline HCl (Zoloft -) 50 mg PO HS [facility] Last Admin: 04/11/18 22:08 Dose: 50 mg - Objective Vital Signs: Vital Signs Temperature 98.2 F 04/12/18 09:00 Pulse Rate 80 04/12/18 09:00 Respiratory Rate 14 04/12/18 09:00 Blood Pressure 124/60 04/12/18 09:00 O2 Sat by Pulse Oximetry (%) 95 04/11/18 20:42 Constitutional: Yes: Calm Eyes: Yes: Conjunctiva Clear HENT: Yes: Atraumatic Neck: Yes: Supple Cardiovascular: Yes: S1, S2 Respiratory: Yes: CTA Bilaterally Gastrointestinal: Yes: Soft Genitourinary: Yes: WNL Musculoskeletal: Yes: WNL Extremities: Yes: Other (fistula with thrill and bruit) Edema: No Neurological: Yes: Oriented Psychiatric: Yes: Oriented Labs: CBC, BMP 04/11/18 09:20 04/11/18 09:20 INR, PTT INR 1.05 (0.82-1.09) 04/07/18 08:15 Problem List - Problems (1) ESRD (end stage renal disease) Code(s): N18.6 - END STAGE RENAL DISEASE (2) Anemia Code(s): D64.9 - ANEMIA, UNSPECIFIED Qualifiers: Anemia type: due to chronic kidney disease Chronic kidney disease stage: on chronic dialysis Qualified Code(s): N18.6 - End stage renal disease; D63.1 - Anemia in chronic kidney disease; Z99.2 - Dependence on renal dialysis (3) CHF (congestive heart failure), NYHA class IV Code(s): I50.9 - HEART FAILURE, UNSPECIFIED Qualifiers: Congestive heart failure type: combined Congestive heart failure chronicity : chronic Qualified Code(s): I50.42 - Chronic combined systolic (congestive) and diastolic (congestive) heart failure Assessment/Plan Current Medications Generic Name Dose Route Start Last Admin Trade Name Freq PRN Reason Stop Dose Admin Acetaminophen/Codeine Phosphate 1 tab 04/07/18 14:17 04/10/18 02:45 Tylenol # 3 - PO 1 tab Q8H PRN Administration PAIN LEVEL 6-10 Albuterol Sulfate 1 amp 04/06/18 22:48 04/10/18 09:15 Ventolin 0.083% Nebulizer Soln - NEB 1 amp Q8H PRN Administration Dyspnea Aspirin 81 mg 04/07/18 10:00 04/12/18 09:22 Asa - PO 81 mg DAILY [facility] Administration Atorvastatin Calcium 20 mg 04/07/18 22:00 04/11/18 22:08 Lipitor - PO 20 mg HS [facility] Administration Calcium Acetate 667 mg 04/07/18 08:00 04/12/18 12:08 Phoslo - PO 667 mg TIDCM [facility] Administration Clopidogrel Bisulfate 75 mg 04/08/18 10:00 04/12/18 09:22 Plavix - PO 75 mg DAILY [facility] Administration Insulin Aspart 1 vial 04/07/18 07:00 04/12/18 12:09 Novolog Vial Sliding Scale - SQ 4 units ACHS [facility] Administration Protocol Insulin Detemir 10 units 04/07/18 22:00 04/11/18 22:23 Levemir Vial SQ 10 units HS [facility] Administration Levothyroxine Sodium 25 mcg 04/07/18 07:00 04/12/18 06:38 Synthroid - PO 25 mcg DAILY@0700 [facility] Administration Metoprolol Succinate 100 mg 04/07/18 14:45 04/12/18 09:22 Toprol Xl - PO 100 mg DAILY [facility] Administration Pantoprazole Sodium 40 mg 04/07/18 10:00 04/12/18 09:22 Protonix - PO 40 mg DAILY [facility] Administration Pramipexole Dihydrochloride 0.125 mg 04/07/18 22:00 04/12/18 06:38 Mirapex - PO 0.125 mg TID [facility] Administration Sacubitril/Valsartan 1 tab 04/07/18 10:00 04/12/18 09:23 Entresto 49 Mg-51 Mg Tablet PO 1 tab BID [facility] Administration Senna 1 tab 04/07/18 22:00 04/11/18 22:09 Senna - PO 1 tab HS [facility] Administration Sertraline HCl 50 mg 04/07/18 22:00 04/11/18 22:08 Zoloft - PO 50 mg HS [facility] Administration Impression 1. ESRD 2. fluid overload 3. DM 4. CAD 5. PVD 6. DFU 7. anemia 8. steal syndrome Plan - will arrange for HD tomorrow - recall vascular for steal syndrome - renal diet and fluid restriction - bp stable - will follow Dr Dove
--- NOTE | 2018-04-12 15:27 | PN ---
Progress Note (short form) - Note Progress Note: admitted again for neurological changes, now resolved. needs right arm DRIL. have not been able to schedule due to multiple hospitalizations. will try to do angiogram to map out artery next monday if still in the hospital
[2018-04-12] MEDS ORDERED: ALBUTEROL SO4 0.083% IH SOL 2.5 MG/3 ML VIAL.NEB. NEB PRN (16:03)
[2018-04-12] MEDS ORDERED: ACETAMINOPHEN WITH CODEINE 300MG/30MG TABLET PO PRN (16:03)
[2018-04-12] MEDS ORDERED: INSULIN (NOVOLOG) ASPART 100 UNITS/ML 10ML VIAL ONE (21:37)
[2018-04-12] MEDS: SACUBITRIL/VALSARTAN 24 MG-26 MG TABLET PO SCH (21:42)
[2018-04-12] MEDS: ATORVASTATIN CA 20 MG TABLET (FP) PO SCH (21:43)
[2018-04-12] MEDS: SENNOSIDES 8.6MG TABLET (FP) PO SCH (21:43)
[2018-04-12] MEDS: SERTRALINE HCL 25 MG TABLET (FP) PO SCH (21:43)
[2018-04-12] MEDS: INSULIN (LEVEMIR) 100 UNITS/ML UNITS SQ SCH (21:44)
[2018-04-13] MEDS: PRAMIPEXOLE DIHYDROCHLORIDE 0.125 MG TABLET PO SCH ×3 (06:38→21:22)
[2018-04-13] MEDS: LEVOTHYROXINE NA 25 MCG TABLET (FP) PO SCH (06:38)
[2018-04-13] MEDS: INSULIN SLIDING SCALE (NOVOLOG) 1 VIAL SQ SCH ×4 (06:38→21:28)
[2018-04-13] MEDS ORDERED: SODIUM CHLORIDE 250 ML IV PRN (06:42)
[2018-04-13] MEDS ORDERED: INSULIN (NOVOLOG) ASPART 100 UNITS/ML 10ML VIAL ONE ×2 (07:10→17:00)
[2018-04-13] MEDS ORDERED: PT OWN MED DRAWER 7, Y5N ONE ×3 (07:10→21:12)
[2018-04-13] MEDS ORDERED: EPOETIN ALFA 3,000 UNIT/1 ML ML IVPUSH ONE (08:00)
[2018-04-13 09:16] LABS: HEMATOCRIT 31.3 % (35.4-49); HEMOGLOBIN 10.2 GM/dL (11.7-16.9); MCH 29.3 pg (25.7-33.7); MCHC 32.5 g/dl (32.0-35.9); MEAN CELL VOLUME 90.1 fl (80-96); MEAN PLT VOLUME 9.4 fl (7.5-11.1); PLATELET COUNT 200 K/MM3 (134-434); RBC 3.47 M/mm3 (4.00-5.60); RDW 20.4 % (11.9-15.9); WHITE BLOOD COUNT 8.7 K/mm3 (4.0-10.0)
[2018-04-13 09:19] LABS: ANION GAP 27 (8-16); BLOOD UREA NITROGEN 38 mg/dL (7-18); CHLORIDE 98 mmol/L (98-107); CO2 12 mmol/L (21-32); CREATININE 5.2 mg/dL (0.7-1.3); GLUCOSE,RANDOM 71 mg/dL (74-106); POTASSIUM 4.9 mmol/L (3.5-5.1); SODIUM 137 mmol/L (136-145)
[2018-04-13] MEDS: CLOPIDOGREL BISULFATE 75 MG TABLET (FP) PO SCH ×2 (09:34→12:35)
[2018-04-13] MEDS: SACUBITRIL/VALSARTAN 24 MG-26 MG TABLET PO SCH ×3 (09:34→21:22)
[2018-04-13] MEDS: CALCIUM ACETATE 667 MG CAPSULE (FP) PO SCH ×3 (09:34→17:13)
[2018-04-13] MEDS: ASPIRIN 81 MG CHEWABLE TABLETS PO SCH ×2 (09:34→12:35)
[2018-04-13] MEDS: PANTOPRAZOLE 40 MG TABLET (FP) PO SCH ×2 (09:34→12:35)
[2018-04-13 10:27] LABS: CALCIUM 8.7 mg/dL (8.5-10.1)
--- NOTE | 2018-04-13 11:35 | PN ---
Progress Note (short form) - Note Progress Note: pt seen/examined in dialysis feels better says right arm feels better all f/u noted Vital Signs Temp 97.8 F 04/13/18 08:10 Pulse 80 04/13/18 11:15 Resp 18 04/13/18 11:15 BP 155/73 04/13/18 11:15 Pulse Ox 97 04/12/18 21:00 Intake & Output 04/12/18 04/12/18 04/13/18 11:59 23:59 11:59 Intake Total 900 100 Balance 900 100 Weight 138 lb 9.6 oz 140 lb 8 oz 139 lb 6.4 oz Intake: IV 0 left forearm 0 IVPB 0 Oral 900 100 Other: Voiding Method Urinal Toilet Toilet # Unmeasured Voids Void 1 2 Bowel Movement Yes No # Bowel Movements 1 1 Weight Measurement Method Standing Scale Standing Scale Standing Scale Active Medications Acetaminophen/Codeine Phosphate (Tylenol # 3 -) 1 tab PO Q8H PRN PRN Reason: PAIN LEVEL 6-10 Albuterol Sulfate (Ventolin 0.083% Nebulizer Soln -) 1 amp NEB Q8H PRN PRN Reason: Dyspnea Aspirin (Asa -) 81 mg PO DAILY [facility] Last Admin: 04/13/18 09:34 Dose: Not Given Atorvastatin Calcium (Lipitor -) 20 mg PO [facility] Last Admin: 04/12/18 21:43 Dose: 20 mg Calcium Acetate (Phoslo -) 667 mg PO TIDCM [facility] Last Admin: 04/13/18 09:34 Dose: Not Given Clopidogrel Bisulfate (Plavix -) 75 mg PO DAILY [facility] Last Admin: 04/13/18 09:34 Dose: Not Given Insulin Aspart (Novolog Vial Sliding Scale -) 1 vial SQ [facility]; Protocol Last Admin: 04/13/18 06:38 Dose: Not Given Insulin Detemir (Levemir Vial) 10 units SQ [facility] Last Admin: 04/12/18 21:44 Dose: 10 units Levothyroxine Sodium (Synthroid -) 25 mcg PO DAILY@0700 [facility] Last Admin: 04/13/18 06:38 Dose: 25 mcg Metoprolol Succinate (Toprol Xl -) 100 mg PO DAILY [facility] Last Admin: 04/13/18 09:35 Dose: Not Given Pantoprazole Sodium (Protonix -) 40 mg PO DAILY [facility] Last Admin: 04/13/18 09:34 Dose: Not Given Pramipexole Dihydrochloride (Mirapex -) 0.125 mg PO TID [facility] Last Admin: 04/13/18 06:38 Dose: 0.125 mg Sacubitril/Valsartan (Entresto 24 Mg-26 Mg Tablet) 1 tab PO BID [facility] Last Admin: 04/13/18 09:34 Dose: Not Given Senna (Senna -) 1 tab PO [facility] Last Admin: 04/12/18 21:43 Dose: 1 tab Sertraline HCl (Zoloft -) 50 mg PO HS [facility] Last Admin: 04/12/18 21:43 Dose: 50 mg CBC, BMP 04/13/18 08:15 04/13/18 08:15 Physical Exam. Constitutional: Yes: No Distress. comfortable. awake Neck: Yes: Supple/ no jvd Cardiovascular: Yes: Regular Rate and Rhythm Respiratory: Yes: Diminished at bases Gastrointestinal: Yes: Soft/ non tender. Wound/Incision: Yes: Other (left toe-- dry gangrene) Neurological: Yes: Other (alert/ awake) Assessment/Plan clinically stable. Continue present care physical therapy Angiogram/ DRIL procedure being planned-- per vascular will follow. Problem List - Problems (1) Altered mental status Code(s): R41.82 - ALTERED MENTAL STATUS, UNSPECIFIED Qualifiers: Altered mental status type: unspecified Qualified Code(s): R41.82 - Altered mental status, unspecified (2) Chronic HFrEF (heart failure with reduced ejection fraction) Code(s): I50.22 - CHRONIC SYSTOLIC (CONGESTIVE) HEART FAILURE (3) ESRD (end stage renal disease) Code(s): N18.6 - END STAGE RENAL DISEASE (4) Slurred speech Code(s): R47.81 - SLURRED SPEECH (5) ASHD (arteriosclerotic heart disease) Code(s): I25.10 - ATHSCL HEART DISEASE OF [place] CORONARY ARTERY W/O ANG PCTRS (6) Anemia Code(s): D64.9 - ANEMIA, UNSPECIFIED Qualifiers: Anemia type: due to chronic kidney disease Chronic kidney disease stage: on chronic dialysis Qualified Code(s): N18.6 - End stage renal disease; D63.1 - Anemia in chronic kidney disease; Z99.2 - Dependence on renal dialysis (7) CHF (congestive heart failure), NYHA class IV Code(s): I50.9 - HEART FAILURE, UNSPECIFIED Qualifiers: Congestive heart failure type: combined Congestive heart failure chronicity : chronic Qualified Code(s): I50.42 - Chronic combined systolic (congestive) and diastolic (congestive) heart failure (8) Diabetes Code(s): E11.9 - TYPE 2 DIABETES MELLITUS WITHOUT COMPLICATIONS Qualifiers: Diabetes mellitus type: type 2 Diabetes mellitus intermediate project manager insulin use: without intermediate project manager use Diabetes mellitus complication status: with neurologic complications (9) Gangrene Code(s): I96 - GANGRENE, NOT ELSEWHERE CLASSIFIED (10) Hyperkalemia Code(s): E87.5 - HYPERKALEMIA (11) ICD (implantable cardioverter-defibrillator) in place Code(s): Z95.810 - PRESENCE OF AUTOMATIC (IMPLANTABLE) CARDIAC DEFIBRILLATOR (12) PVD (peripheral vascular disease) Code(s): I73.9 - PERIPHERAL VASCULAR DISEASE, UNSPECIFIED (13) S/P CABG (coronary artery bypass graft) Code(s): Z95.1 - PRESENCE OF AORTOCORONARY BYPASS GRAFT (14) S/P peripheral artery angioplasty with stent placement Code(s): Z95.820 - PERIPHERAL VASCULAR ANGIOPLASTY STATUS W IMPLANTS AND GRAFTS (15) Steal syndrome of dialysis vascular access Code(s): T82.898A - OTH COMPLICATION OF VASCULAR PROSTH DEV/GRFT, INIT Qualifiers: Encounter type: subsequent encounter Qualified Code(s): T82.898D - Other specified complication of vascular prosthetic devices, implants and grafts, subsequent encounter
--- NOTE | 2018-04-13 11:58 | PN ---
Progress Note, Physician History of Present Illness: Mental status resolved to baseline, denies chest pain or dyspnea. Seen during HD. - Current Medication List Current Medications: Active Medications Acetaminophen/Codeine Phosphate (Tylenol # 3 -) 1 tab PO Q8H PRN PRN Reason: PAIN LEVEL 6-10 Albuterol Sulfate (Ventolin 0.083% Nebulizer Soln -) 1 amp NEB Q8H PRN PRN Reason: Dyspnea Aspirin (Asa -) 81 mg PO DAILY [facility] Last Admin: 04/13/18 09:34 Dose: Not Given Atorvastatin Calcium (Lipitor -) 20 mg PO [facility] Last Admin: 04/12/18 21:43 Dose: 20 mg Calcium Acetate (Phoslo -) 667 mg PO TIDCM [facility] Last Admin: 04/13/18 09:34 Dose: Not Given Clopidogrel Bisulfate (Plavix -) 75 mg PO DAILY [facility] Last Admin: 04/13/18 09:34 Dose: Not Given Insulin Aspart (Novolog Vial Sliding Scale -) 1 vial SQ [facility]; Protocol Last Admin: 04/13/18 06:38 Dose: Not Given Insulin Detemir (Levemir Vial) 10 units SQ [facility] Last Admin: 04/12/18 21:44 Dose: 10 units Levothyroxine Sodium (Synthroid -) 25 mcg PO DAILY@0700 [facility] Last Admin: 04/13/18 06:38 Dose: 25 mcg Metoprolol Succinate (Toprol Xl -) 100 mg PO DAILY [facility] Last Admin: 04/13/18 09:35 Dose: Not Given Pantoprazole Sodium (Protonix -) 40 mg PO DAILY [facility] Last Admin: 04/13/18 09:34 Dose: Not Given Pramipexole Dihydrochloride (Mirapex -) 0.125 mg PO TID [facility] Last Admin: 04/13/18 06:38 Dose: 0.125 mg Sacubitril/Valsartan (Entresto 24 Mg-26 Mg Tablet) 1 tab PO BID [facility] Last Admin: 04/13/18 09:34 Dose: Not Given Senna (Senna -) 1 tab PO [facility] Last Admin: 04/12/18 21:43 Dose: 1 tab Sertraline HCl (Zoloft -) 50 mg PO [facility] Last Admin: 04/12/18 21:43 Dose: 50 mg - Objective Vital Signs: Vital Signs Temperature 97.8 F 07/06/18 08:10 Pulse Rate 80 04/13/18 11:15 Respiratory Rate 18 04/13/18 11:15 Blood Pressure 155/73 04/13/18 11:15 O2 Sat by Pulse Oximetry (%) 97 04/12/18 21:00 Constitutional: Yes: No Distress, Calm, Thin Neck: Yes: Supple Cardiovascular: Yes: Regular Rate and Rhythm Respiratory: Yes: Regular, Diminished Gastrointestinal: Yes: Normal Bowel Sounds, Soft Edema: No Labs: CBC, BMP 04/13/18 08:15 04/13/18 08:15 INR, PTT INR 1.05 (0.82-1.09) 04/07/18 08:15 Problem List - Problems (1) Altered mental status Code(s): R41.82 - ALTERED MENTAL STATUS, UNSPECIFIED Qualifiers: Altered mental status type: unspecified Qualified Code(s): R41.82 - Altered mental status, unspecified (2) Chronic HFrEF (heart failure with reduced ejection fraction) Code(s): I50.22 - CHRONIC SYSTOLIC (CONGESTIVE) HEART FAILURE (3) ESRD (end stage renal disease) Code(s): N18.6 - END STAGE RENAL DISEASE (4) Slurred speech Code(s): R47.81 - SLURRED SPEECH (5) ASHD (arteriosclerotic heart disease) Code(s): I25.10 - ATHSCL HEART DISEASE OF [place] CORONARY ARTERY W/O ANG PCTRS (6) CHF (congestive heart failure), NYHA class IV Code(s): I50.9 - HEART FAILURE, UNSPECIFIED Qualifiers: Congestive heart failure type: combined Congestive heart failure chronicity : chronic Qualified Code(s): I50.42 - Chronic combined systolic (congestive) and diastolic (congestive) heart failure (7) Diabetes Code(s): E11.9 - TYPE 2 DIABETES MELLITUS WITHOUT COMPLICATIONS Qualifiers: Diabetes mellitus type: type 2 Diabetes mellitus assistant terminal manager insulin use: without [facility] use Diabetes mellitus complication status: with neurologic complications (8) HTN (hypertension) Code(s): I10 - ESSENTIAL (PRIMARY) HYPERTENSION Qualifiers: Hypertension type: essential hypertension Qualified Code(s): I10 - Essential (primary) hypertension (9) Hyperkalemia Code(s): E87.5 - HYPERKALEMIA (10) Hypothyroidism Code(s): E03.9 - HYPOTHYROIDISM, UNSPECIFIED Qualifiers: Hypothyroidism type: unspecified Qualified Code(s): E03.9 - Hypothyroidism , unspecified (11) ICD (implantable cardioverter-defibrillator) in place Code(s): Z95.810 - PRESENCE OF AUTOMATIC (IMPLANTABLE) CARDIAC DEFIBRILLATOR (12) PVD (peripheral vascular disease) Code(s): I73.9 - PERIPHERAL VASCULAR DISEASE, UNSPECIFIED (13) S/P CABG (coronary artery bypass graft) Code(s): Z95.1 - PRESENCE OF AORTOCORONARY BYPASS GRAFT (14) S/P peripheral artery angioplasty with stent placement Code(s): Z95.820 - PERIPHERAL VASCULAR ANGIOPLASTY STATUS W IMPLANTS AND GRAFTS (15) Steal syndrome of dialysis vascular access Code(s): T82.898A - OTH COMPLICATION OF VASCULAR PROSTH DEV/GRFT, INIT Qualifiers: Encounter type: subsequent encounter Qualified Code(s): T82.898D - Other specified complication of vascular prosthetic devices, implants and grafts, subsequent encounter (16) Anemia Code(s): D64.9 - ANEMIA, UNSPECIFIED Qualifiers: Anemia type: due to chronic kidney disease Chronic kidney disease stage: on chronic dialysis Qualified Code(s): N18.6 - End stage renal disease; D63.1 - Anemia in chronic kidney disease; Z99.2 - Dependence on renal dialysis (17) Ischemic dilated cardiomyopathy Code(s): I25.5 - ISCHEMIC CARDIOMYOPATHY; I42.0 - DILATED CARDIOMYOPATHY Assessment/Plan 03/01/2018 Echo: Normal LV size with severely decreased LV fxn, mild TR, tr MR, pleural efusion 1. Altered mental status resolved, unlikely stroke, myoclonic jerks 2/2 uremia improved 2. Chronic Systolic Heart Failure referable to ischemic dilated cardiomyopathy/ severe LV systolic dysfunction with left effusion 3. CAD post remote [place] post CABG angina pectoris, stable 4. Post prophylactic ICD implant ([employer]'s device) 5. HTN 6. IDDM 7. Hypercholesterolemia 8. PAD with left toe gangrene s/p aortogram, LLE angiogram, SFA atherectomy, DCB SFA angioplasty, with sfa stent 9. ESRD on HD, right AVG with steal and hyperkalemia 10. Anemia of CKD 11. Hypothyroidism 12. Altered mental status, myoclonic jerks maybe worsened by gabapentin or uremia 13. H/o GI bleed PLAN: 1. HD per nephrology, monitor mental status, placed on Mirapex 2. ICD interrogation showed no episodes of AT or AF, no previous history I saw in MD records, monitor telemetry 3. Continue Toprol XL 100 qd 4. Continue Entresto 49/51 bid and monitor hyperkalemia closely 5. Continue ASA 81 qd and Plavix 75 qd 6. Continue Lipitor 20 qhs 7. DVT and GI prophylaxis, encourage ambulation 8. Elective right arm angiogram and DRIL procedure tentatively Monday, may proceed from CV-standpoint
--- NOTE | 2018-04-13 16:00 | PN ---
Progress Note, Physician History of Present Illness: Pt seen and examined at bedside. He is awake and alert. He denies shortness of breath. - Current Medication List Current Medications: Active Medications Acetaminophen/Codeine Phosphate (Tylenol # 3 -) 1 tab PO Q8H PRN PRN Reason: PAIN LEVEL 6-10 Albuterol Sulfate (Ventolin 0.083% Nebulizer Soln -) 1 amp NEB Q8H PRN PRN Reason: Dyspnea Aspirin (Asa -) 81 mg PO DAILY [facility] Last Admin: 04/13/18 12:35 Dose: 81 mg Atorvastatin Calcium (Lipitor -) 20 mg PO [facility] Last Admin: 04/12/18 21:43 Dose: 20 mg Calcium Acetate (Phoslo -) 667 mg PO TIDCM [facility] Last Admin: 04/13/18 12:36 Dose: 667 mg Clopidogrel Bisulfate (Plavix -) 75 mg PO DAILY [facility] Last Admin: 04/13/18 12:35 Dose: 75 mg Insulin Aspart (Novolog Vial Sliding Scale -) 1 vial SQ [facility]; Protocol Last Admin: 04/13/18 12:25 Dose: Not Given Insulin Detemir (Levemir Vial) 10 units SQ [facility] Last Admin: 04/12/18 21:44 Dose: 10 units Levothyroxine Sodium (Synthroid -) 25 mcg PO DAILY@0700 [facility] Last Admin: 04/13/18 06:38 Dose: 25 mcg Metoprolol Succinate (Toprol Xl -) 100 mg PO DAILY [facility] Last Admin: 04/13/18 12:35 Dose: 100 mg Pantoprazole Sodium (Protonix -) 40 mg PO DAILY [facility] Last Admin: 04/13/18 12:35 Dose: 40 mg Pramipexole Dihydrochloride (Mirapex -) 0.125 mg PO TID [facility] Last Admin: 04/13/18 13:07 Dose: 0.125 mg Sacubitril/Valsartan (Entresto 24 Mg-26 Mg Tablet) 1 tab PO BID [facility] Last Admin: 04/13/18 12:36 Dose: 1 tab Senna (Senna -) 1 tab PO [facility] Last Admin: 04/12/18 21:43 Dose: 1 tab Sertraline HCl (Zoloft -) 50 mg PO [facility] Last Admin: 04/12/18 21:43 Dose: 50 mg - Objective Vital Signs: Vital Signs Temperature 98.4 F 04/13/18 12:50 Pulse Rate 80 04/13/18 12:50 Respiratory Rate 18 04/13/18 12:50 Blood Pressure 141/73 04/13/18 12:50 O2 Sat by Pulse Oximetry (%) 97 04/12/18 21:00 Constitutional: Yes: Calm Eyes: Yes: Conjunctiva Clear HENT: Yes: Atraumatic Neck: Yes: Supple Cardiovascular: Yes: S1, S2 Respiratory: Yes: CTA Bilaterally Gastrointestinal: Yes: Soft Genitourinary: Yes: WNL Breast(s): Yes: WNL Extremities: Yes: Other (fistula with thrill and bruit) Edema: No Neurological: Yes: Oriented Psychiatric: Yes: Oriented Labs: CBC, BMP 04/13/18 08:15 04/13/18 08:15 INR, PTT INR 1.05 (0.82-1.09) 04/07/18 08:15 Problem List - Problems (1) ESRD (end stage renal disease) Code(s): N18.6 - END STAGE RENAL DISEASE (2) Anemia Code(s): D64.9 - ANEMIA, UNSPECIFIED Qualifiers: Anemia type: due to chronic kidney disease Chronic kidney disease stage: on chronic dialysis Qualified Code(s): N18.6 - End stage renal disease; D63.1 - Anemia in chronic kidney disease; Z99.2 - Dependence on renal dialysis (3) CHF (congestive heart failure), NYHA class IV Code(s): I50.9 - HEART FAILURE, UNSPECIFIED Qualifiers: Congestive heart failure type: combined Congestive heart failure chronicity : chronic Qualified Code(s): I50.42 - Chronic combined systolic (congestive) and diastolic (congestive) heart failure Assessment/Plan Current Medications Generic Name Dose Route Start Last Admin Trade Name Freq PRN Reason Stop Dose Admin Acetaminophen/Codeine Phosphate 1 tab 04/12/18 16:03 Tylenol # 3 - PO Q8H PRN PAIN LEVEL 6-10 Albuterol Sulfate 1 amp 04/12/18 16:03 Ventolin 0.083% Nebulizer Soln - NEB Q8H PRN Dyspnea Aspirin 81 mg 04/13/18 10:00 04/13/18 12:35 Asa - PO 81 mg DAILY [facility] Administration Atorvastatin Calcium 20 mg 04/12/18 22:00 04/12/18 21:43 Lipitor - PO 20 mg HS [facility] Administration Calcium Acetate 667 mg 04/12/18 17:30 04/13/18 12:36 Phoslo - PO 667 mg TIDCM [facility] Administration Clopidogrel Bisulfate 75 mg 04/13/18 10:00 04/13/18 12:35 Plavix - PO 75 mg DAILY [facility] Administration Insulin Aspart 1 vial 04/12/18 16:30 04/13/18 12:25 Novolog Vial Sliding Scale - SQ Not Given [facility] Protocol Insulin Detemir 10 units 04/12/18 22:00 04/12/18 21:44 Levemir Vial SQ 10 units HS [facility] Administration Levothyroxine Sodium 25 mcg 04/13/18 07:00 04/13/18 06:38 Synthroid - PO 25 mcg DAILY@0700 [facility] Administration Metoprolol Succinate 100 mg 04/13/18 10:00 04/13/18 12:35 Toprol Xl - PO 100 mg DAILY [facility] Administration Pantoprazole Sodium 40 mg 04/13/18 10:00 04/13/18 12:35 Protonix - PO 40 mg DAILY [facility] Administration Pramipexole Dihydrochloride 0.125 mg 04/12/18 22:00 04/13/18 13:07 Mirapex - PO 0.125 mg TID [facility] Administration Sacubitril/Valsartan 1 tab 04/12/18 22:00 04/13/18 12:36 Entresto 24 Mg-26 Mg Tablet PO 1 tab BID [facility] Administration Senna 1 tab 04/12/18 22:00 04/12/18 21:43 Senna - PO 1 tab HS [facility] Administration Sertraline HCl 50 mg 04/12/18 22:00 04/12/18 21:43 Zoloft - PO 50 mg HS [facility] Administration Impression 1. ESRD 2. fluid overload 3. DM 4. CAD 5. PVD 6. DFU 7. anemia 8. steal syndrome Plan - pt tolerated HD today - vascular input appreciated - renal diet and fluid restriction - next HD Monday - will follow Dr Dove
[2018-04-13 16:05] VITALS: BMI 20.5
[2018-04-13] MEDS: ATORVASTATIN CA 20 MG TABLET (FP) PO SCH (21:21)
[2018-04-13] MEDS: SERTRALINE HCL 25 MG TABLET (FP) PO SCH (21:21)
[2018-04-13] MEDS: SENNOSIDES 8.6MG TABLET (FP) PO SCH (21:21)
[2018-04-13] MEDS: INSULIN (LEVEMIR) 100 UNITS/ML UNITS SQ SCH (21:28)
[2018-04-14] MEDS: INSULIN SLIDING SCALE (NOVOLOG) 1 VIAL SQ SCH ×4 (06:15→23:05)
[2018-04-14] MEDS: PRAMIPEXOLE DIHYDROCHLORIDE 0.125 MG TABLET PO SCH ×3 (06:16→23:04)
[2018-04-14] MEDS: LEVOTHYROXINE NA 25 MCG TABLET (FP) PO SCH (06:16)
[2018-04-14] MEDS: CALCIUM ACETATE 667 MG CAPSULE (FP) PO SCH ×3 (09:05→17:05)
[2018-04-14] MEDS ORDERED: PT OWN MED DRAWER 7, Y5N ONE ×2 (10:02→22:42)
[2018-04-14] MEDS: CLOPIDOGREL BISULFATE 75 MG TABLET (FP) PO SCH (10:03)
[2018-04-14] MEDS: PANTOPRAZOLE 40 MG TABLET (FP) PO SCH (10:04)
[2018-04-14] MEDS: ASPIRIN 81 MG CHEWABLE TABLETS PO SCH (10:04)
[2018-04-14] MEDS: SACUBITRIL/VALSARTAN 24 MG-26 MG TABLET PO SCH (10:04)
--- NOTE | 2018-04-14 12:10 | PN ---
Progress Note (short form) - Note Progress Note: Chief Complaint: Events noted, noted reviewed, dyspnea improved, denies any chest pain History of Present Illness: Seen and examined. Events noted, noted reviewed, dyspnea improved, denies any chest pain - Current Medication List Current Medications Acetaminophen/Codeine Phosphate (Tylenol # 3 -) 1 tab PO Q8H PRN PRN Reason: PAIN LEVEL 6-10 Last Admin: 04/13/18 21:56 Dose: 1 tab Albuterol Sulfate (Ventolin 0.083% Nebulizer Soln -) 1 amp NEB Q8H PRN PRN Reason: Dyspnea Aspirin (Asa -) 81 mg PO DAILY [facility] Last Admin: 04/14/18 10:04 Dose: 81 mg Atorvastatin Calcium (Lipitor -) 20 mg PO [facility] Last Admin: 04/13/18 21:21 Dose: 20 mg Calcium Acetate (Phoslo -) 667 mg PO TIDCM [facility] Last Admin: 04/14/18 12:04 Dose: 667 mg Clopidogrel Bisulfate (Plavix -) 75 mg PO DAILY [facility] Last Admin: 04/14/18 10:03 Dose: 75 mg Insulin Aspart (Novolog Vial Sliding Scale -) 1 vial SQ [facility]; Protocol Last Admin: 04/14/18 12:04 Dose: 2 units Insulin Detemir (Levemir Vial) 10 units SQ [facility] Last Admin: 04/13/18 21:28 Dose: 10 units Levothyroxine Sodium (Synthroid -) 25 mcg PO DAILY@0700 [facility] Last Admin: 04/14/18 06:16 Dose: 25 mcg Metoprolol Succinate (Toprol Xl -) 100 mg PO DAILY [facility] Last Admin: 04/14/18 10:03 Dose: 100 mg Pantoprazole Sodium (Protonix -) 40 mg PO DAILY [facility] Last Admin: 04/14/18 10:04 Dose: 40 mg Pramipexole Dihydrochloride (Mirapex -) 0.125 mg PO TID [facility] Last Admin: 04/14/18 06:16 Dose: 0.125 mg Sacubitril/Valsartan (Entresto 24 Mg-26 Mg Tablet) 1 tab PO BID [facility] Last Admin: 04/14/18 10:04 Dose: 1 tab Senna (Senna -) 1 tab PO [facility] Last Admin: 04/13/18 21:21 Dose: 1 tab Sertraline HCl (Zoloft -) 50 mg PO HS [facility] Last Admin: 04/13/18 21:21 Dose: 50 mg - Review of Systems Constitutional: denies: Chills, Fever Cardiovascular: As noted above Respiratory: denies: Cough or Sputum Production Gastrointestinal: denies: Nausea, Vomiting, Diarrhea, Constipation or Abdominal Pain Genitourinary: HD Neurological: denies: Dizziness or Headaches Endocrine: denies: Intolerance to Cold, Intolerance to Heat - Objective Vital Signs: Last Vital Signs Temp Pulse Resp BP Pulse Ox 97.8 F 81 20 141/64 96 04/14/18 04:20 04/14/18 09:00 04/14/18 09:00 04/14/18 09:00 04/13/18 21:00 Intake & Output 04/11/18 04/12/18 04/13/18 04/14/18 23:59 23:59 23:59 23:59 Intake Total 670 900 680 300 Output Total 300 Balance 370 900 680 300 Weight 144 lb 4 oz 140 lb 8 oz 139 lb 137 lb 0.4 oz Constitutional: No Distress, Calm, Thin Neck: Supple Negative JVD Respiratory: diminished Breath Sounds at the Bases Bilaterally Cardiovascular: S1 S2 Regular Rate and Rhythm Grade 1/6 systolic murmur Gastrointestinal: Soft Benign Normal Bowel Sounds Ext: Trace Edema Labs: CBC, BMP 04/13/18 08:15 04/13/18 08:15 Assessment/Plan ASSESSMENT: 1. Altered mental status, resolved 2. 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 CAD post remote [place] post CABG angina pectoris, stable 4. Post prophylactic ICD implant (Medtr[employer]'s device) 5. HTN 6. IDDM 7. Hypercholesterolemia 8. PAD with toe gangrene post peripheral intervention 9. Hypothyroidism 10. ESRD on HD 12. Anemia PLAN: 1. Continue Toprol XL 2. Continue Entresto and titrate dosage as tolerated and hemodynamics permitting 3. Continue ASA + Plavix 4. Continue Lipitor 5. HD as per renal service Jordon Lozoya M.D.
--- NOTE | 2018-04-14 12:35 | PN ---
Progress Note, Physician Chief Complaint: no distress arm is numb and weak no SOB or chest pain - Current Medication List Current Medications: Active Medications Acetaminophen/Codeine Phosphate (Tylenol # 3 -) 1 tab PO Q8H PRN PRN Reason: PAIN LEVEL 6-10 Last Admin: 04/13/18 21:56 Dose: 1 tab Albuterol Sulfate (Ventolin 0.083% Nebulizer Soln -) 1 amp NEB Q8H PRN PRN Reason: Dyspnea Aspirin (Asa -) 81 mg PO DAILY [facility] Last Admin: 04/14/18 10:04 Dose: 81 mg Atorvastatin Calcium (Lipitor -) 20 mg PO [facility] Last Admin: 04/13/18 21:21 Dose: 20 mg Calcium Acetate (Phoslo -) 667 mg PO TIDCM [facility] Last Admin: 04/14/18 12:04 Dose: 667 mg Clopidogrel Bisulfate (Plavix -) 75 mg PO DAILY [facility] Last Admin: 04/14/18 10:03 Dose: 75 mg Insulin Aspart (Novolog Vial Sliding Scale -) 1 vial SQ [facility]; Protocol Last Admin: 04/14/18 12:04 Dose: 2 units Insulin Detemir (Levemir Vial) 10 units SQ [facility] Last Admin: 04/13/18 21:28 Dose: 10 units Levothyroxine Sodium (Synthroid -) 25 mcg PO DAILY@0700 [facility] Last Admin: 04/14/18 06:16 Dose: 25 mcg Metoprolol Succinate (Toprol Xl -) 100 mg PO DAILY [facility] Last Admin: 04/14/18 10:03 Dose: 100 mg Pantoprazole Sodium (Protonix -) 40 mg PO DAILY [facility] Last Admin: 04/14/18 10:04 Dose: 40 mg Pramipexole Dihydrochloride (Mirapex -) 0.125 mg PO TID [facility] Last Admin: 04/14/18 06:16 Dose: 0.125 mg Sacubitril/Valsartan (Entresto 49 Mg-51 Mg Tablet) 1 tab PO BID [facility] Senna (Senna -) 1 tab PO [facility] Last Admin: 04/13/18 21:21 Dose: 1 tab Sertraline HCl (Zoloft -) 50 mg PO [facility] Last Admin: 04/13/18 21:21 Dose: 50 mg - Objective Vital Signs: Vital Signs Temperature 97.8 F 04/14/18 04:20 Pulse Rate 81 04/14/18 09:00 Respiratory Rate 20 04/14/18 09:00 Blood Pressure 141/64 04/14/18 09:00 O2 Sat by Pulse Oximetry (%) 96 04/13/18 21:00 Constitutional: Yes: No Distress, Calm Cardiovascular: Yes: Regular Rate and Rhythm Respiratory: Yes: Diminished Gastrointestinal: Yes: Normal Bowel Sounds, Soft. No: Tenderness Edema: No Labs: CBC, BMP 04/13/18 08:15 04/13/18 08:15 INR, PTT INR 1.05 (0.82-1.09) 04/07/18 08:15 Problem List - Problems (1) Altered mental status Code(s): R41.82 - ALTERED MENTAL STATUS, UNSPECIFIED Qualifiers: Altered mental status type: unspecified Qualified Code(s): R41.82 - Altered mental status, unspecified (2) Chronic HFrEF (heart failure with reduced ejection fraction) Code(s): I50.22 - CHRONIC SYSTOLIC (CONGESTIVE) HEART FAILURE (3) ESRD (end stage renal disease) Code(s): N18.6 - END STAGE RENAL DISEASE (4) Ischemic dilated cardiomyopathy Code(s): I25.5 - ISCHEMIC CARDIOMYOPATHY; I42.0 - DILATED CARDIOMYOPATHY (5) ASHD (arteriosclerotic heart disease) Code(s): I25.10 - ATHSCL HEART DISEASE OF [place] CORONARY ARTERY W/O ANG PCTRS (6) PVD (peripheral vascular disease) Code(s): I73.9 - PERIPHERAL VASCULAR DISEASE, UNSPECIFIED Assessment/Plan Plan Continue with meds- will need to dc Neurontin eventually Pt tolerating Mirapex Vascular eval- Dr Richard for right arm numbness- he will have surgery possibly Monday Spoke with Niece-- insists that the pt has the angiogram with DRIL procedure during this admission He is medically stable for procedure at this time Pt is still in hospital awaiting the procedure-- his niece will appeal if I discharge pt to [place]
[2018-04-14] MEDS ORDERED: INSULIN (LEVEMIR) 100 UNITS/ML UNITS SQ ONE (23:00)
[2018-04-14] MEDS: ATORVASTATIN CA 20 MG TABLET (FP) PO SCH (23:03)
[2018-04-14] MEDS: SENNOSIDES 8.6MG TABLET (FP) PO SCH (23:05)
[2018-04-14] MEDS: SERTRALINE HCL 25 MG TABLET (FP) PO SCH (23:05)
[2018-04-14] MEDS: SACUBITRIL/VALSARTAN 49 MG-51 MG TABLET PO SCH (23:06)
[2018-04-15] MEDS: INSULIN (LEVEMIR) 100 UNITS/ML UNITS SQ SCH ×2 (01:20→22:38)
[2018-04-15] MEDS: INSULIN SLIDING SCALE (NOVOLOG) 1 VIAL SQ SCH ×4 (06:22→22:39)
[2018-04-15] MEDS: LEVOTHYROXINE NA 25 MCG TABLET (FP) PO SCH (06:23)
[2018-04-15] MEDS: PRAMIPEXOLE DIHYDROCHLORIDE 0.125 MG TABLET PO SCH ×3 (06:24→22:39)
[2018-04-15] MEDS: CALCIUM ACETATE 667 MG CAPSULE (FP) PO SCH ×3 (08:45→17:27)
--- NOTE | 2018-04-15 10:26 | PN ---
Progress Note (short form) - Note Progress Note: Chief Complaint: Events noted, noted reviewed, dyspnea improved, denies any chest pain History of Present Illness: Seen and examined. Events noted, noted reviewed, dyspnea improved, denies any chest pain Plan to proceed with vascular procedure - Current Medication List Current Medications Acetaminophen/Codeine Phosphate (Tylenol # 3 -) 1 tab PO Q8H PRN PRN Reason: PAIN LEVEL 6-10 Last Admin: 04/13/18 21:56 Dose: 1 tab Albuterol Sulfate (Ventolin 0.083% Nebulizer Soln -) 1 amp NEB Q8H PRN PRN Reason: Dyspnea Aspirin (Asa -) 81 mg PO DAILY [facility] Last Admin: 04/14/18 10:04 Dose: 81 mg Atorvastatin Calcium (Lipitor -) 20 mg PO [facility] Last Admin: 04/14/18 23:03 Dose: 20 mg Calcium Acetate (Phoslo -) 667 mg PO TIDCM [facility] Last Admin: 04/14/18 17:05 Dose: 667 mg Clopidogrel Bisulfate (Plavix -) 75 mg PO DAILY [facility] Last Admin: 04/14/18 10:03 Dose: 75 mg Insulin Aspart (Novolog Vial Sliding Scale -) 1 vial SQ [facility]; Protocol Last Admin: 04/15/18 06:22 Dose: Not Given Insulin Detemir (Levemir Vial) 10 units SQ [facility] Levothyroxine Sodium (Synthroid -) 25 mcg PO DAILY@0700 [facility] Last Admin: 04/15/18 06:23 Dose: 25 mcg Metoprolol Succinate (Toprol Xl -) 100 mg PO DAILY [facility] Last Admin: 04/14/18 10:03 Dose: 100 mg Pantoprazole Sodium (Protonix -) 40 mg PO DAILY [facility] Last Admin: 04/14/18 10:04 Dose: 40 mg Pramipexole Dihydrochloride (Mirapex -) 0.125 mg PO TID [facility] Last Admin: 04/15/18 06:24 Dose: 0.125 mg Sacubitril/Valsartan (Entresto 49 Mg-51 Mg Tablet) 1 tab PO BID [facility] Last Admin: 04/14/18 23:06 Dose: 1 tab Senna (Senna -) 1 tab PO [facility] Last Admin: 04/14/18 23:05 Dose: 1 tab Sertraline HCl (Zoloft -) 50 mg PO HS [facility] Last Admin: 04/14/18 23:05 Dose: 50 mg - Review of Systems Constitutional: denies: Chills, Fever Cardiovascular: As noted above Respiratory: denies: Cough or Sputum Production Gastrointestinal: denies: Nausea, Vomiting, Diarrhea, Constipation or Abdominal Pain Genitourinary: HD Neurological: denies: Dizziness or Headaches Endocrine: denies: Intolerance to Cold, Intolerance to Heat - Objective Vital Signs: Last Vital Signs Temp Pulse Resp BP Pulse Ox 98 F 81 18 153/71 96 04/15/18 06:00 04/15/18 06:00 04/15/18 06:00 04/15/18 06:00 04/14/18 21:00 Intake & Output 04/12/18 04/13/18 04/14/18 04/15/18 23:59 23:59 23:59 23:59 Intake Total 900 680 300 0 Balance 900 680 300 0 Weight 140 lb 8 oz 139 lb 137 lb 0.4 oz 136 lb 0.5 oz Constitutional: No Distress, Calm, Thin Neck: Supple Negative JVD Respiratory: diminished Breath Sounds at the Bases Bilaterally Cardiovascular: S1 S2 Regular Rate and Rhythm Grade 1/6 systolic murmur Gastrointestinal: Soft Benign Normal Bowel Sounds Ext: Trace Edema Labs: CBC, BMP 04/13/18 08:15 04/13/18 08:15 Assessment/Plan ASSESSMENT: 1. Altered mental status, resolved 2. Chronic class I-II NYHA classification LV failure related to ischemic dilated cardiomyopathy/severe LV systolic dysfunction, compensated/euvolemic 3. CAD post remote [place] post CABG angina pectoris, stable 4. Post prophylactic ICD implant ([employer]'s device) 5. HTN 6. IDDM 7. Hypercholesterolemia 8. PAD with toe gangrene post peripheral intervention 9. Upper extremity vascular steal phenomenon for DRIL procedure/distal revascularization and interval ligation 10. Hypothyroidism 11. ESRD on HD 12. Anemia PLAN: 1. Continue Toprol XL 2. Continue Entresto and titrate dosage as tolerated and hemodynamics permitting 3. Continue ASA + Plavix 4. Continue Lipitor 5. HD as per renal service 6. There are no absolute cardiac contraindications in proceeding with planned vascular intervention considering that there is no clinical evidence of ACS and/ or de-compensated CHF and/or malignant ventricular arrhythmia Jordon Lozoya M.D.
[2018-04-15] MEDS ORDERED: PT OWN MED DRAWER 7, Y5N ONE (11:53)
[2018-04-15] MEDS ORDERED: INSULIN (NOVOLOG) ASPART 100 UNITS/ML 10ML VIAL ONE (11:53)
[2018-04-15] MEDS: CLOPIDOGREL BISULFATE 75 MG TABLET (FP) PO SCH (11:56)
[2018-04-15] MEDS: PANTOPRAZOLE 40 MG TABLET (FP) PO SCH (11:56)
[2018-04-15] MEDS: ASPIRIN 81 MG CHEWABLE TABLETS PO SCH (11:56)
[2018-04-15] MEDS: SACUBITRIL/VALSARTAN 49 MG-51 MG TABLET PO SCH ×2 (11:57→22:38)
--- NOTE | 2018-04-15 15:42 | PN ---
Progress Note (short form) - Note Progress Note: pt seen/examined feels ok no new issues chart reviewed. Vital Signs Temp 98 F 04/15/18 06:00 Pulse 81 04/15/18 06:00 Resp 18 04/15/18 06:00 BP 153/71 04/15/18 06:00 Pulse Ox 96 04/14/18 21:00 Intake & Output 04/14/18 04/15/18 04/15/18 23:59 11:59 23:59 Intake Total 0 Balance 0 Weight 136 lb 0.5 oz Intake: IVPB 0 Other: Voiding Method Toilet Toilet # Unmeasured Voids Void 1 Bowel Movement No No Weight Measurement Method Standing Scale Active Medications Acetaminophen/Codeine Phosphate (Tylenol # 3 -) 1 tab PO Q8H PRN PRN Reason: PAIN LEVEL 6-10 Last Admin: 04/13/18 21:56 Dose: 1 tab Albuterol Sulfate (Ventolin 0.083% Nebulizer Soln -) 1 amp NEB Q8H PRN PRN Reason: Dyspnea Aspirin (Asa -) 81 mg PO DAILY [facility] Last Admin: 04/15/18 11:56 Dose: 81 mg Atorvastatin Calcium (Lipitor -) 20 mg PO [facility] Last Admin: 04/14/18 23:03 Dose: 20 mg Calcium Acetate (Phoslo -) 667 mg PO TIDCM [facility] Last Admin: 04/15/18 11:56 Dose: 667 mg Clopidogrel Bisulfate (Plavix -) 75 mg PO DAILY [facility] Last Admin: 04/15/18 11:56 Dose: 75 mg Insulin Aspart (Novolog Vial Sliding Scale -) 1 vial SQ [facility]; Protocol Last Admin: 04/15/18 12:21 Dose: Not Given Insulin Detemir (Levemir Vial) 10 units SQ [facility] Levothyroxine Sodium (Synthroid -) 25 mcg PO DAILY@0700 [facility] Last Admin: 04/15/18 06:23 Dose: 25 mcg Metoprolol Succinate (Toprol Xl -) 100 mg PO DAILY [facility] Last Admin: 04/15/18 11:56 Dose: 100 mg Pantoprazole Sodium (Protonix -) 40 mg PO DAILY [facility] Last Admin: 04/15/18 11:56 Dose: 40 mg Pramipexole Dihydrochloride (Mirapex -) 0.125 mg PO TID [facility] Last Admin: 04/15/18 06:24 Dose: 0.125 mg Sacubitril/Valsartan (Entresto 49 Mg-51 Mg Tablet) 1 tab PO BID [facility] Last Admin: 04/15/18 11:57 Dose: 1 tab Senna (Senna -) 1 tab PO HS [facility] Last Admin: 04/14/18 23:05 Dose: 1 tab Sertraline HCl (Zoloft -) 50 mg PO HS [facility] Last Admin: 04/14/18 23:05 Dose: 50 mg CBC, BMP 04/13/18 08:15 04/13/18 08:15 Physical Exam. Constitutional: Yes: No Distress. comfortable. alert and awake Neck: Yes: Supple/ no jvd. trachea midline Cardiovascular: Yes: Regular Rate and Rhythm Respiratory: Yes: Diminished at bases Gastrointestinal: Yes: Soft/ non tender. Wound/Incision: Yes: Other (left toe-- dry gangrene) Neurological: Yes: Other (alert/ awake) Assessment/Plan clinically stable. Continue present care physical therapy Angiogram/ DRIL procedure being planned-- per vascular will follow. Problem List - Problems (1) Altered mental status Code(s): R41.82 - ALTERED MENTAL STATUS, UNSPECIFIED Qualifiers: Altered mental status type: unspecified Qualified Code(s): R41.82 - Altered mental status, unspecified (2) Chronic HFrEF (heart failure with reduced ejection fraction) Code(s): I50.22 - CHRONIC SYSTOLIC (CONGESTIVE) HEART FAILURE (3) ESRD (end stage renal disease) Code(s): N18.6 - END STAGE RENAL DISEASE (4) Slurred speech Code(s): R47.81 - SLURRED SPEECH (5) ASHD (arteriosclerotic heart disease) Code(s): I25.10 - ATHSCL HEART DISEASE OF [place] CORONARY ARTERY W/O ANG PCTRS (6) Anemia Code(s): D64.9 - ANEMIA, UNSPECIFIED Qualifiers: Anemia type: due to chronic kidney disease Chronic kidney disease stage: on chronic dialysis Qualified Code(s): N18.6 - End stage renal disease; D63.1 - Anemia in chronic kidney disease; Z99.2 - Dependence on renal dialysis (7) CHF (congestive heart failure), NYHA class IV Code(s): I50.9 - HEART FAILURE, UNSPECIFIED Qualifiers: Congestive heart failure type: combined Congestive heart failure chronicity : chronic Qualified Code(s): I50.42 - Chronic combined systolic (congestive) and diastolic (congestive) heart failure (8) Diabetes Code(s): E11.9 - TYPE 2 DIABETES MELLITUS WITHOUT COMPLICATIONS Qualifiers: Diabetes mellitus type: type 2 Diabetes mellitus correction insulin use: without correction use Diabetes mellitus complication status: with neurologic complications (9) Gangrene Code(s): I96 - GANGRENE, NOT ELSEWHERE CLASSIFIED (10) Hyperkalemia Code(s): E87.5 - HYPERKALEMIA (11) ICD (implantable cardioverter-defibrillator) in place Code(s): Z95.810 - PRESENCE OF AUTOMATIC (IMPLANTABLE) CARDIAC DEFIBRILLATOR (12) PVD (peripheral vascular disease) Code(s): I73.9 - PERIPHERAL VASCULAR DISEASE, UNSPECIFIED (13) S/P CABG (coronary artery bypass graft) Code(s): Z95.1 - PRESENCE OF AORTOCORONARY BYPASS GRAFT (14) S/P peripheral artery angioplasty with stent placement Code(s): Z95.820 - PERIPHERAL VASCULAR ANGIOPLASTY STATUS W IMPLANTS AND GRAFTS (15) Steal syndrome of dialysis vascular access Code(s): T82.898A - OTH COMPLICATION OF VASCULAR PROSTH DEV/GRFT, INIT Qualifiers: Encounter type: subsequent encounter Qualified Code(s): T82.898D - Other specified complication of vascular prosthetic devices, implants and grafts, subsequent encounter
[2018-04-15] MEDS: ATORVASTATIN CA 20 MG TABLET (FP) PO SCH (22:38)
[2018-04-15] MEDS: SENNOSIDES 8.6MG TABLET (FP) PO SCH (22:39)
[2018-04-15] MEDS: SERTRALINE HCL 25 MG TABLET (FP) PO SCH (22:39)
--- NOTE | 2018-04-15 22:59 | PN ---
Progress Note (short form) - Note Progress Note: problems 1. ESRD 2. fluid overload 3. DM 4. CAD 5. PVD 6. DFU 7. anemia 8. steal syndrome Current Medications Albuterol Sulfate (Ventolin 0.083% Nebulizer Soln -) 1 amp NEB Q8H PRN PRN Reason: Dyspnea Aspirin (Asa -) 81 mg PO DAILY [facility] Last Admin: 04/15/18 11:56 Dose: 81 mg Atorvastatin Calcium (Lipitor -) 20 mg PO [facility] Last Admin: 04/15/18 22:38 Dose: 20 mg Calcium Acetate (Phoslo -) 667 mg PO TIDCM [facility] Last Admin: 04/15/18 17:27 Dose: 667 mg Clopidogrel Bisulfate (Plavix -) 75 mg PO DAILY [facility] Last Admin: 04/15/18 11:56 Dose: 75 mg Insulin Aspart (Novolog Vial Sliding Scale -) 1 vial SQ [facility]; Protocol Last Admin: 04/15/18 22:39 Dose: Not Given Insulin Detemir (Levemir Vial) 10 units SQ [facility] Last Admin: 04/15/18 22:38 Dose: 10 units Levothyroxine Sodium (Synthroid -) 25 mcg PO DAILY@0700 [facility] Last Admin: 04/15/18 06:23 Dose: 25 mcg Metoprolol Succinate (Toprol Xl -) 100 mg PO DAILY [facility] Last Admin: 04/15/18 11:56 Dose: 100 mg Pantoprazole Sodium (Protonix -) 40 mg PO DAILY [facility] Last Admin: 04/15/18 11:56 Dose: 40 mg Pramipexole Dihydrochloride (Mirapex -) 0.125 mg PO TID [facility] Last Admin: 04/15/18 22:39 Dose: 0.125 mg Sacubitril/Valsartan (Entresto 49 Mg-51 Mg Tablet) 1 tab PO BID [facility] Last Admin: 04/15/18 22:38 Dose: 1 tab Senna (Senna -) 1 tab PO [facility] Last Admin: 04/15/18 22:39 Dose: 1 tab Sertraline HCl (Zoloft -) 50 mg PO [facility] Last Admin: 04/15/18 22:39 Dose: 50 mg Last Vital Signs Temp Pulse Resp BP Pulse Ox 98.3 F 83 20 150/86 96 04/15/18 18:00 04/15/18 18:00 04/15/18 18:00 04/15/18 18:00 04/15/18 09:00 CBC, BMP 04/13/18 08:15 04/13/18 08:15 IMP- esrd no fluid overload today Plan- HD tomorrow
[2018-04-16] MEDS: LEVOTHYROXINE NA 25 MCG TABLET (FP) PO SCH (06:31)
[2018-04-16] MEDS: PRAMIPEXOLE DIHYDROCHLORIDE 0.125 MG TABLET PO SCH ×3 (06:32→22:41)
[2018-04-16] MEDS: INSULIN SLIDING SCALE (NOVOLOG) 1 VIAL SQ SCH ×4 (06:32→22:40)
--- NOTE | 2018-04-16 09:29 | PN ---
Progress Note (short form) - Note Progress Note: OR tomorrow for angiogram and DRIL
[2018-04-16] MEDS: CALCIUM ACETATE 667 MG CAPSULE (FP) PO SCH ×3 (09:33→18:22)
--- NOTE | 2018-04-16 10:10 | PN ---
Progress Note (short form) - Note Progress Note: pt seen/ examined in dialysis overall condition same comfortable all f/u noted Vital Signs Temp 98.1 F 04/16/18 07:55 Pulse 80 04/16/18 09:30 Resp 18 04/16/18 09:30 BP 131/63 04/16/18 09:30 Pulse Ox 94 L 04/15/18 21:00 Intake & Output 04/15/18 04/15/18 04/16/18 11:59 23:59 11:59 Intake Total 0 300 Output Total 250 Balance 0 50 Weight 136 lb 0.5 oz Intake: IVPB 0 Oral 300 Output: Urine 250 Void 250 Other: Voiding Method Toilet Urinal # Unmeasured Voids Void 1 1 1 Bowel Movement No No Weight Measurement Method Standing Scale Active Medications Albuterol Sulfate (Ventolin 0.083% Nebulizer Soln -) 1 amp NEB Q8H PRN PRN Reason: Dyspnea Aspirin (Asa -) 81 mg PO DAILY [facility] Last Admin: 04/15/18 11:56 Dose: 81 mg Atorvastatin Calcium (Lipitor -) 20 mg PO [facility] Last Admin: 04/15/18 22:38 Dose: 20 mg Calcium Acetate (Phoslo -) 667 mg PO TIDCM [facility] Last Admin: 04/16/18 09:33 Dose: Not Given Clopidogrel Bisulfate (Plavix -) 75 mg PO DAILY [facility] Last Admin: 04/15/18 11:56 Dose: 75 mg Insulin Aspart (Novolog Vial Sliding Scale -) 1 vial SQ [facility]; Protocol Last Admin: 04/16/18 06:32 Dose: Not Given Insulin Detemir (Levemir Vial) 10 units SQ [facility] Last Admin: 04/15/18 22:38 Dose: 10 units Levothyroxine Sodium (Synthroid -) 25 mcg PO DAILY@0700 [facility] Last Admin: 04/16/18 06:31 Dose: 25 mcg Metoprolol Succinate (Toprol Xl -) 100 mg PO DAILY [facility] Last Admin: 04/15/18 11:56 Dose: 100 mg Pantoprazole Sodium (Protonix -) 40 mg PO DAILY [facility] Last Admin: 04/15/18 11:56 Dose: 40 mg Pramipexole Dihydrochloride (Mirapex -) 0.125 mg PO TID [facility] Last Admin: 04/16/18 06:32 Dose: 0.125 mg Sacubitril/Valsartan (Entresto 49 Mg-51 Mg Tablet) 1 tab PO BID [facility] Last Admin: 04/15/18 22:38 Dose: 1 tab Senna (Senna -) 1 tab PO [facility] Last Admin: 04/15/18 22:39 Dose: 1 tab Sertraline HCl (Zoloft -) 50 mg PO [facility] Last Admin: 04/15/18 22:39 Dose: 50 mg CBC, BMP 04/13/18 08:15 04/13/18 08:15 Physical Exam. Constitutional: Yes: No Distress. comfortable. alert and awake Neck: Yes: Supple/ no jvd. trachea midline Cardiovascular: Yes: Regular Rate and Rhythm Respiratory: Yes: Diminished at bases Gastrointestinal: Yes: Soft/ non tender. Wound/Incision: Yes: Other (left toe-- dry gangrene) Neurological: Yes: Other (alert/ awake) Assessment/Plan clinically stable. Continue present care physical therapy Angiogram/ DRIL procedure being planned-- per vascular-- tomorrow will follow. Problem List - Problems (1) Altered mental status Code(s): R41.82 - ALTERED MENTAL STATUS, UNSPECIFIED Qualifiers: Altered mental status type: unspecified Qualified Code(s): R41.82 - Altered mental status, unspecified (2) Chronic HFrEF (heart failure with reduced ejection fraction) Code(s): I50.22 - CHRONIC SYSTOLIC (CONGESTIVE) HEART FAILURE (3) ESRD (end stage renal disease) Code(s): N18.6 - END STAGE RENAL DISEASE (4) Slurred speech Code(s): R47.81 - SLURRED SPEECH (5) ASHD (arteriosclerotic heart disease) Code(s): I25.10 - ATHSCL HEART DISEASE OF [place] CORONARY ARTERY W/O ANG PCTRS (6) Anemia Code(s): D64.9 - ANEMIA, UNSPECIFIED Qualifiers: Anemia type: due to chronic kidney disease Chronic kidney disease stage: on chronic dialysis Qualified Code(s): N18.6 - End stage renal disease; D63.1 - Anemia in chronic kidney disease; Z99.2 - Dependence on renal dialysis (7) CHF (congestive heart failure), NYHA class IV Code(s): I50.9 - HEART FAILURE, UNSPECIFIED Qualifiers: Congestive heart failure type: combined Congestive heart failure chronicity : chronic Qualified Code(s): I50.42 - Chronic combined systolic (congestive) and diastolic (congestive) heart failure (8) Diabetes Code(s): E11.9 - TYPE 2 DIABETES MELLITUS WITHOUT COMPLICATIONS Qualifiers: Diabetes mellitus type: type 2 Diabetes mellitus long-term insulin use: without long-term use Diabetes mellitus complication status: with neurologic complications (9) Gangrene Code(s): I96 - GANGRENE, NOT ELSEWHERE CLASSIFIED (10) Hyperkalemia Code(s): E87.5 - HYPERKALEMIA (11) ICD (implantable cardioverter-defibrillator) in place Code(s): Z95.810 - PRESENCE OF AUTOMATIC (IMPLANTABLE) CARDIAC DEFIBRILLATOR (12) PVD (peripheral vascular disease) Code(s): I73.9 - PERIPHERAL VASCULAR DISEASE, UNSPECIFIED (13) S/P CABG (coronary artery bypass graft) Code(s): Z95.1 - PRESENCE OF AORTOCORONARY BYPASS GRAFT (14) S/P peripheral artery angioplasty with stent placement Code(s): Z95.820 - PERIPHERAL VASCULAR ANGIOPLASTY STATUS W IMPLANTS AND GRAFTS (15) Steal syndrome of dialysis vascular access Code(s): T82.898A - OTH COMPLICATION OF VASCULAR PROSTH DEV/GRFT, INIT Qualifiers: Encounter type: subsequent encounter Qualified Code(s): T82.898D - Other specified complication of vascular prosthetic devices, implants and grafts, subsequent encounter
[2018-04-16] MEDS ORDERED: PT OWN MED DRAWER 7, Y5N ONE (13:04)
[2018-04-16] MEDS: ASPIRIN 81 MG CHEWABLE TABLETS PO SCH (13:51)
[2018-04-16] MEDS: SACUBITRIL/VALSARTAN 49 MG-51 MG TABLET PO SCH ×2 (13:52→22:39)
[2018-04-16] MEDS: CLOPIDOGREL BISULFATE 75 MG TABLET (FP) PO SCH (13:53)
[2018-04-16] MEDS: PANTOPRAZOLE 40 MG TABLET (FP) PO SCH (13:54)
--- NOTE | 2018-04-16 14:40 | PN ---
Progress Note, Physician History of Present Illness: Pt seen and examined at bedside. He is awake and alert. He denies shortness of breath. He tolerated HD today. He is going to OR tomorrow for angio and DRIL. - Current Medication List Current Medications: Active Medications Albuterol Sulfate (Ventolin 0.083% Nebulizer Soln -) 1 amp NEB Q8H PRN PRN Reason: Dyspnea Aspirin (Asa -) 81 mg PO DAILY [facility] Last Admin: 04/16/18 13:51 Dose: 81 mg Atorvastatin Calcium (Lipitor -) 20 mg PO [facility] Last Admin: 04/15/18 22:38 Dose: 20 mg Calcium Acetate (Phoslo -) 667 mg PO TIDCM [facility] Last Admin: 04/16/18 13:52 Dose: 667 mg Clopidogrel Bisulfate (Plavix -) 75 mg PO DAILY [facility] Last Admin: 04/16/18 13:53 Dose: 75 mg Insulin Aspart (Novolog Vial Sliding Scale -) 1 vial SQ [facility]; Protocol Last Admin: 04/16/18 12:08 Dose: Not Given Insulin Detemir (Levemir Vial) 10 units SQ [facility] Last Admin: 04/15/18 22:38 Dose: 10 units Levothyroxine Sodium (Synthroid -) 25 mcg PO DAILY@0700 [facility] Last Admin: 04/16/18 06:31 Dose: 25 mcg Metoprolol Succinate (Toprol Xl -) 100 mg PO DAILY [facility] Last Admin: 04/16/18 13:53 Dose: 100 mg Pantoprazole Sodium (Protonix -) 40 mg PO DAILY [facility] Last Admin: 04/16/18 13:54 Dose: 40 mg Pramipexole Dihydrochloride (Mirapex -) 0.125 mg PO TID [facility] Last Admin: 04/16/18 13:55 Dose: 0.125 mg Sacubitril/Valsartan (Entresto 49 Mg-51 Mg Tablet) 1 tab PO BID [facility] Last Admin: 04/16/18 13:52 Dose: 1 tab Senna (Senna -) 1 tab PO [facility] Last Admin: 04/15/18 22:39 Dose: 1 tab Sertraline HCl (Zoloft -) 50 mg PO [facility] Last Admin: 04/15/18 22:39 Dose: 50 mg - Objective Vital Signs: Vital Signs Temperature 97.9 F 04/16/18 12:10 Pulse Rate 76 04/16/18 14:03 Respiratory Rate 20 04/16/18 14:03 Blood Pressure 120/61 04/16/18 14:03 O2 Sat by Pulse Oximetry (%) 93 L 04/16/18 12:10 Constitutional: Yes: Calm Eyes: Yes: Conjunctiva Clear HENT: Yes: Atraumatic Neck: Yes: Supple Cardiovascular: Yes: S1, S2 Respiratory: Yes: CTA Bilaterally Gastrointestinal: Yes: Soft Musculoskeletal: Yes: WNL Extremities: Yes: WNL Edema: No Integumentary: Yes: WNL Neurological: Yes: Oriented Psychiatric: Yes: Oriented Labs: CBC, BMP 04/13/18 08:15 04/13/18 08:15 INR, PTT INR 1.05 (0.82-1.09) 04/07/18 08:15 Problem List - Problems (1) ESRD (end stage renal disease) Code(s): N18.6 - END STAGE RENAL DISEASE (2) Anemia Code(s): D64.9 - ANEMIA, UNSPECIFIED Qualifiers: Anemia type: due to chronic kidney disease Chronic kidney disease stage: on chronic dialysis Qualified Code(s): N18.6 - End stage renal disease; D63.1 - Anemia in chronic kidney disease; Z99.2 - Dependence on renal dialysis (3) CHF (congestive heart failure), NYHA class IV Code(s): I50.9 - HEART FAILURE, UNSPECIFIED Qualifiers: Congestive heart failure type: combined Congestive heart failure chronicity : chronic Qualified Code(s): I50.42 - Chronic combined systolic (congestive) and diastolic (congestive) heart failure Assessment/Plan Current Medications Generic Name Dose Route Start Last Admin Trade Name Freq PRN Reason Stop Dose Admin Albuterol Sulfate 1 amp 04/12/18 16:03 Ventolin 0.083% Nebulizer Soln - NEB Q8H PRN Dyspnea Aspirin 81 mg 04/13/18 10:00 04/16/18 13:51 Asa - PO 81 mg DAILY [facility] Administration Atorvastatin Calcium 20 mg 04/12/18 22:00 04/15/18 22:38 Lipitor - PO 20 mg HS [facility] Administration Calcium Acetate 667 mg 04/12/18 17:30 04/16/18 13:52 Phoslo - PO 667 mg TIDCM [facility] Administration Clopidogrel Bisulfate 75 mg 04/13/18 10:00 04/16/18 13:53 Plavix - PO 75 mg DAILY [facility] Administration Insulin Aspart 1 vial 04/12/18 16:30 04/16/18 12:08 Novolog Vial Sliding Scale - SQ Not Given ACHS [facility] Protocol Insulin Detemir 10 units 04/15/18 22:00 04/15/18 22:38 Levemir Vial SQ 10 units HS [facility] Administration Levothyroxine Sodium 25 mcg 04/13/18 07:00 04/16/18 06:31 Synthroid - PO 25 mcg DAILY@0700 [facility] Administration Metoprolol Succinate 100 mg 04/13/18 10:00 04/16/18 13:53 Toprol Xl - PO 100 mg DAILY [facility] Administration Pantoprazole Sodium 40 mg 04/13/18 10:00 04/16/18 13:54 Protonix - PO 40 mg DAILY [facility] Administration Pramipexole Dihydrochloride 0.125 mg 04/12/18 22:00 04/16/18 13:55 Mirapex - PO 0.125 mg TID [facility] Administration Sacubitril/Valsartan 1 tab 04/14/18 22:00 04/16/18 13:52 Entresto 49 Mg-51 Mg Tablet PO 1 tab BID [facility] Administration Senna 1 tab 04/12/18 22:00 04/15/18 22:39 Senna - PO 1 tab HS [facility] Administration Sertraline HCl 50 mg 04/12/18 22:00 04/15/18 22:39 Zoloft - PO 50 mg HS [facility] Administration Impression 1. ESRD 2. fluid overload 3. DM 4. CAD 5. PVD 6. DFU 7. anemia 8. steal syndrome Plan - HD today - vascular input appreciated - renal diet and fluid restriction - will follow Dr Dove
--- NOTE | 2018-04-16 15:38 | PN ---
Progress Note, Physician History of Present Illness: Mental status resolved to baseline, denies chest pain or dyspnea. Tolerated HD. - Current Medication List Current Medications: Active Medications Albuterol Sulfate (Ventolin 0.083% Nebulizer Soln -) 1 amp NEB Q8H PRN PRN Reason: Dyspnea Aspirin (Asa -) 81 mg PO DAILY [facility] Last Admin: 04/16/18 13:51 Dose: 81 mg Atorvastatin Calcium (Lipitor -) 20 mg PO [facility] Last Admin: 04/15/18 22:38 Dose: 20 mg Calcium Acetate (Phoslo -) 667 mg PO TIDCM [facility] Last Admin: 04/16/18 13:52 Dose: 667 mg Clopidogrel Bisulfate (Plavix -) 75 mg PO DAILY [facility] Last Admin: 04/16/18 13:53 Dose: 75 mg Insulin Aspart (Novolog Vial Sliding Scale -) 1 vial SQ [facility]; Protocol Last Admin: 04/16/18 12:08 Dose: Not Given Insulin Detemir (Levemir Vial) 10 units SQ [facility] Last Admin: 04/15/18 22:38 Dose: 10 units Levothyroxine Sodium (Synthroid -) 25 mcg PO DAILY@0700 [facility] Last Admin: 04/16/18 06:31 Dose: 25 mcg Metoprolol Succinate (Toprol Xl -) 100 mg PO DAILY [facility] Last Admin: 04/16/18 13:53 Dose: 100 mg Pantoprazole Sodium (Protonix -) 40 mg PO DAILY [facility] Last Admin: 04/16/18 13:54 Dose: 40 mg Pramipexole Dihydrochloride (Mirapex -) 0.125 mg PO TID [facility] Last Admin: 04/16/18 13:55 Dose: 0.125 mg Sacubitril/Valsartan (Entresto 49 Mg-51 Mg Tablet) 1 tab PO BID [facility] Last Admin: 04/16/18 13:52 Dose: 1 tab Senna (Senna -) 1 tab PO [facility] Last Admin: 04/15/18 22:39 Dose: 1 tab Sertraline HCl (Zoloft -) 50 mg PO [facility] Last Admin: 04/15/18 22:39 Dose: 50 mg - Objective Vital Signs: Vital Signs Temperature 97.9 F 04/16/18 12:10 Pulse Rate 76 04/16/18 14:03 Respiratory Rate 20 04/16/18 14:03 Blood Pressure 120/61 04/16/18 14:03 O2 Sat by Pulse Oximetry (%) 93 L 04/16/18 12:10 Constitutional: Yes: No Distress, Calm, Thin Neck: Yes: Supple Cardiovascular: Yes: Regular Rate and Rhythm Respiratory: Yes: Regular, Diminished Gastrointestinal: Yes: Normal Bowel Sounds, Soft Edema: No Labs: CBC, BMP 04/13/18 08:15 04/13/18 08:15 INR, PTT INR 1.05 (0.82-1.09) 04/07/18 08:15 Problem List - Problems (1) Altered mental status Code(s): R41.82 - ALTERED MENTAL STATUS, UNSPECIFIED Qualifiers: Altered mental status type: unspecified Qualified Code(s): R41.82 - Altered mental status, unspecified (2) Chronic HFrEF (heart failure with reduced ejection fraction) Code(s): I50.22 - CHRONIC SYSTOLIC (CONGESTIVE) HEART FAILURE (3) ESRD (end stage renal disease) Code(s): N18.6 - END STAGE RENAL DISEASE (4) Slurred speech Code(s): R47.81 - SLURRED SPEECH (5) ASHD (arteriosclerotic heart disease) Code(s): I25.10 - ATHSCL HEART DISEASE OF [place] CORONARY ARTERY W/O ANG PCTRS (6) CHF (congestive heart failure), NYHA class IV Code(s): I50.9 - HEART FAILURE, UNSPECIFIED Qualifiers: Congestive heart failure type: combined Congestive heart failure chronicity : chronic Qualified Code(s): I50.42 - Chronic combined systolic (congestive) and diastolic (congestive) heart failure (7) Diabetes Code(s): E11.9 - TYPE 2 DIABETES MELLITUS WITHOUT COMPLICATIONS Qualifiers: Diabetes mellitus type: type 2 Diabetes mellitus 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 use: without half-way use Diabetes mellitus complication status: with neurologic complications (8) HTN (hypertension) Code(s): I10 - ESSENTIAL (PRIMARY) HYPERTENSION Qualifiers: Hypertension type: essential hypertension Qualified Code(s): I10 - Essential (primary) hypertension (9) Hyperkalemia Code(s): E87.5 - HYPERKALEMIA (10) Hypothyroidism Code(s): E03.9 - HYPOTHYROIDISM, UNSPECIFIED Qualifiers: Hypothyroidism type: unspecified Qualified Code(s): E03.9 - Hypothyroidism , unspecified (11) ICD (implantable cardioverter-defibrillator) in place Code(s): Z95.810 - PRESENCE OF AUTOMATIC (IMPLANTABLE) CARDIAC DEFIBRILLATOR (12) PVD (peripheral vascular disease) Code(s): I73.9 - PERIPHERAL VASCULAR DISEASE, UNSPECIFIED (13) S/P CABG (coronary artery bypass graft) Code(s): Z95.1 - PRESENCE OF AORTOCORONARY BYPASS GRAFT (14) S/P peripheral artery angioplasty with stent placement Code(s): Z95.820 - PERIPHERAL VASCULAR ANGIOPLASTY STATUS W IMPLANTS AND GRAFTS (15) Steal syndrome of dialysis vascular access Code(s): T82.898A - OTH COMPLICATION OF VASCULAR PROSTH DEV/GRFT, INIT Qualifiers: Encounter type: subsequent encounter Qualified Code(s): T82.898D - Other specified complication of vascular prosthetic devices, implants and grafts, subsequent encounter (16) Anemia Code(s): D64.9 - ANEMIA, UNSPECIFIED Qualifiers: Anemia type: due to chronic kidney disease Chronic kidney disease stage: on chronic dialysis Qualified Code(s): N18.6 - End stage renal disease; D63.1 - Anemia in chronic kidney disease; Z99.2 - Dependence on renal dialysis (17) Ischemic dilated cardiomyopathy Code(s): I25.5 - ISCHEMIC CARDIOMYOPATHY; I42.0 - DILATED CARDIOMYOPATHY Assessment/Plan 03/01/2018 Echo: Normal LV size with severely decreased LV fxn, mild TR, tr MR, pleural efusion 1. Altered mental status resolved, unlikely stroke, myoclonic jerks 2/2 uremia improved 2. Chronic Systolic Heart Failure referable to ischemic dilated cardiomyopathy/ severe LV systolic dysfunction compensated/euvolemic 3. CAD post remote NM post CABG angina pectoris, stable 4. Post prophylactic ICD implant ([employer]'s device) 5. HTN 6. IDDM 7. Hypercholesterolemia 8. PAD with left toe gangrene s/p aortogram, LLE angiogram, SFA atherectomy, DCB SFA angioplasty, with sfa stent 9. ESRD on HD, right AVG with steal and hyperkalemia 10. Anemia of CKD 11. Hypothyroidism 12. Altered mental status, myoclonic jerks maybe worsened by gabapentin or uremia 13. H/o GI bleed PLAN: 1. HD per nephrology, monitor mental status, placed on Mirapex 2. ICD interrogation showed no episodes of AT or AF, no previous history I saw in [place] records, monitor telemetry 3. Continue Toprol XL 100 qd 4. Continue Entresto 49/51 bid and monitor hyperkalemia closely 5. Continue ASA 81 qd and Plavix 75 qd 6. Continue Lipitor 20 qhs 7. DVT and GI prophylaxis, encourage ambulation 8. Elective right arm angiogram and DRIL procedure Monday, may proceed from CV- standpoint
[2018-04-16] MEDS ORDERED: oxyCODONE HCL 5 MG TABLET PO ONE (22:30)
[2018-04-16] MEDS: ATORVASTATIN CA 20 MG TABLET (FP) PO SCH (22:39)
[2018-04-16] MEDS: SERTRALINE HCL 25 MG TABLET (FP) PO SCH (22:39)
[2018-04-16] MEDS: SENNOSIDES 8.6MG TABLET (FP) PO SCH (22:39)
[2018-04-16] MEDS: INSULIN (LEVEMIR) 100 UNITS/ML UNITS SQ SCH (22:41)
[2018-04-17] MEDS: INSULIN SLIDING SCALE (NOVOLOG) 1 VIAL SQ SCH ×4 (06:32→22:11)
[2018-04-17] MEDS: LEVOTHYROXINE NA 25 MCG TABLET (FP) PO SCH (06:38)
[2018-04-17] MEDS: PRAMIPEXOLE DIHYDROCHLORIDE 0.125 MG TABLET PO SCH ×3 (06:38→22:13)
[2018-04-17] MEDS: PANTOPRAZOLE 40 MG TABLET (FP) PO SCH (09:52)
[2018-04-17] MEDS: SACUBITRIL/VALSARTAN 49 MG-51 MG TABLET PO SCH ×2 (09:52→22:13)
[2018-04-17] MEDS: CLOPIDOGREL BISULFATE 75 MG TABLET (FP) PO SCH (09:52)
[2018-04-17] MEDS: ASPIRIN 81 MG CHEWABLE TABLETS PO SCH (09:52)
[2018-04-17] MEDS: CALCIUM ACETATE 667 MG CAPSULE (FP) PO SCH ×3 (09:52→18:44)
--- NOTE | 2018-04-17 12:27 | PN ---
Progress Note, Physician - Current Medication List Current Medications: Active Medications Albuterol Sulfate (Ventolin 0.083% Nebulizer Soln -) 1 amp NEB Q8H PRN PRN Reason: Dyspnea Aspirin (Asa -) 81 mg PO DAILY [facility] Last Admin: 04/17/18 09:52 Dose: Not Given Atorvastatin Calcium (Lipitor -) 20 mg PO [facility] Last Admin: 04/16/18 22:39 Dose: 20 mg Calcium Acetate (Phoslo -) 667 mg PO TIDCM [facility] Last Admin: 04/17/18 09:52 Dose: Not Given Clopidogrel Bisulfate (Plavix -) 75 mg PO DAILY [facility] Last Admin: 04/17/18 09:52 Dose: Not Given Insulin Aspart (Novolog Vial Sliding Scale -) 1 vial SQ [facility]; Protocol Last Admin: 04/17/18 11:32 Dose: Not Given Insulin Detemir (Levemir Vial) 10 units SQ [facility] Last Admin: 04/16/18 22:41 Dose: Not Given Levothyroxine Sodium (Synthroid -) 25 mcg PO DAILY@0700 [facility] Last Admin: 04/17/18 06:38 Dose: 25 mcg Metoprolol Succinate (Toprol Xl -) 100 mg PO DAILY [facility] Last Admin: 04/17/18 09:52 Dose: Not Given Pantoprazole Sodium (Protonix -) 40 mg PO DAILY [facility] Last Admin: 04/17/18 09:52 Dose: Not Given Pramipexole Dihydrochloride (Mirapex -) 0.125 mg PO TID [facility] Last Admin: 04/17/18 06:38 Dose: 0.125 mg Sacubitril/Valsartan (Entresto 49 Mg-51 Mg Tablet) 1 tab PO BID [facility] Last Admin: 04/17/18 09:52 Dose: Not Given Senna (Senna -) 1 tab PO [facility] Last Admin: 04/16/18 22:39 Dose: 1 tab Sertraline HCl (Zoloft -) 50 mg PO [facility] Last Admin: 04/16/18 22:39 Dose: 50 mg - Objective Vital Signs: Vital Signs Temperature 97.7 F 04/17/18 09:51 Pulse Rate 81 04/17/18 09:51 Respiratory Rate 20 04/17/18 09:51 Blood Pressure 154/65 04/17/18 09:51 O2 Sat by Pulse Oximetry (%) 95 04/16/18 21:00 Labs: CBC, BMP 04/13/18 08:15 04/13/18 08:15 INR, PTT INR 1.05 (0.82-1.09) 04/07/18 08:15 Problem List - Problems (1) Altered mental status Code(s): R41.82 - ALTERED MENTAL STATUS, UNSPECIFIED Qualifiers: Altered mental status type: unspecified Qualified Code(s): R41.82 - Altered mental status, unspecified (2) Chronic HFrEF (heart failure with reduced ejection fraction) Code(s): I50.22 - CHRONIC SYSTOLIC (CONGESTIVE) HEART FAILURE (3) ESRD (end stage renal disease) Code(s): N18.6 - END STAGE RENAL DISEASE (4) Ischemic dilated cardiomyopathy Code(s): I25.5 - ISCHEMIC CARDIOMYOPATHY; I42.0 - DILATED CARDIOMYOPATHY (5) ASHD (arteriosclerotic heart disease) Code(s): I25.10 - ATHSCL HEART DISEASE OF [place] CORONARY ARTERY W/O ANG PCTRS (6) PVD (peripheral vascular disease) Code(s): I73.9 - PERIPHERAL VASCULAR DISEASE, UNSPECIFIED
--- NOTE | 2018-04-17 12:37 | PN ---
Progress Note, Physician Chief Complaint: Events noted Not in distress this am Right arm angiogram History of Present Illness: Patient was seen and examined. Awake and alert. Chart was reviewed Denies chest pain, SOB or palpitations - Current Medication List Current Medications: Active Medications Albuterol Sulfate (Ventolin 0.083% Nebulizer Soln -) 1 amp NEB Q8H PRN PRN Reason: Dyspnea Aspirin (Asa -) 81 mg PO DAILY [facility] Last Admin: 04/17/18 09:52 Dose: Not Given Atorvastatin Calcium (Lipitor -) 20 mg PO [facility] Last Admin: 04/16/18 22:39 Dose: 20 mg Calcium Acetate (Phoslo -) 667 mg PO TIDCM [facility] Last Admin: 04/17/18 09:52 Dose: Not Given Clopidogrel Bisulfate (Plavix -) 75 mg PO DAILY [facility] Last Admin: 04/17/18 09:52 Dose: Not Given Insulin Aspart (Novolog Vial Sliding Scale -) 1 vial SQ [facility]; Protocol Last Admin: 04/17/18 11:32 Dose: Not Given Insulin Detemir (Levemir Vial) 10 units SQ [facility] Last Admin: 04/16/18 22:41 Dose: Not Given Levothyroxine Sodium (Synthroid -) 25 mcg PO DAILY@0700 [facility] Last Admin: 04/17/18 06:38 Dose: 25 mcg Metoprolol Succinate (Toprol Xl -) 100 mg PO DAILY [facility] Last Admin: 04/17/18 09:52 Dose: Not Given Pantoprazole Sodium (Protonix -) 40 mg PO DAILY [facility] Last Admin: 04/17/18 09:52 Dose: Not Given Pramipexole Dihydrochloride (Mirapex -) 0.125 mg PO TID [facility] Last Admin: 04/17/18 06:38 Dose: 0.125 mg Sacubitril/Valsartan (Entresto 49 Mg-51 Mg Tablet) 1 tab PO BID [facility] Last Admin: 04/17/18 09:52 Dose: Not Given Senna (Senna -) 1 tab PO [facility] Last Admin: 04/16/18 22:39 Dose: 1 tab Sertraline HCl (Zoloft -) 50 mg PO [facility] Last Admin: 04/16/18 22:39 Dose: 50 mg - Objective Vital Signs: Vital Signs Temperature 97.7 F 04/17/18 09:51 Pulse Rate 81 04/17/18 09:51 Respiratory Rate 20 04/17/18 09:51 Blood Pressure 154/65 04/17/18 09:51 O2 Sat by Pulse Oximetry (%) 95 04/16/18 21:00 Eyes: Yes: PERRL HENT: Yes: Atraumatic Neck: Yes: Supple Cardiovascular: Yes: Regular Rate and Rhythm Respiratory: Yes: CTA Bilaterally Gastrointestinal: Yes: Normal Bowel Sounds, Soft. No: Tenderness Edema: No Problem List - Problems (1) Altered mental status Code(s): R41.82 - ALTERED MENTAL STATUS, UNSPECIFIED Qualifiers: Altered mental status type: unspecified Qualified Code(s): R41.82 - Altered mental status, unspecified (2) Chronic HFrEF (heart failure with reduced ejection fraction) Code(s): I50.22 - CHRONIC SYSTOLIC (CONGESTIVE) HEART FAILURE (3) ESRD (end stage renal disease) Code(s): N18.6 - END STAGE RENAL DISEASE (4) Ischemic dilated cardiomyopathy Code(s): I25.5 - ISCHEMIC CARDIOMYOPATHY; I42.0 - DILATED CARDIOMYOPATHY (5) ASHD (arteriosclerotic heart disease) Code(s): I25.10 - ATHSCL HEART DISEASE OF [place] CORONARY ARTERY W/O ANG PCTRS (6) Anemia Code(s): D64.9 - ANEMIA, UNSPECIFIED Qualifiers: Anemia type: due to chronic kidney disease Chronic kidney disease stage: on chronic dialysis Qualified Code(s): N18.6 - End stage renal disease; D63.1 - Anemia in chronic kidney disease; Z99.2 - Dependence on renal dialysis (7) COPD (chronic obstructive pulmonary disease) Code(s): J44.9 - CHRONIC OBSTRUCTIVE PULMONARY DISEASE, UNSPECIFIED Qualifiers: COPD type: unspecified COPD Qualified Code(s): J44.9 - Chronic obstructive pulmonary disease, unspecified (8) Diabetes Code(s): E11.9 - TYPE 2 DIABETES MELLITUS WITHOUT COMPLICATIONS Qualifiers: Diabetes mellitus type: type 2 Diabetes mellitus half-way insulin use: without half-way use Diabetes mellitus complication status: with neurologic complications (9) HTN (hypertension) Code(s): I10 - ESSENTIAL (PRIMARY) HYPERTENSION Qualifiers: Hypertension type: essential hypertension Qualified Code(s): I10 - Essential (primary) hypertension (10) Hyperkalemia Code(s): E87.5 - HYPERKALEMIA (11) Hypothyroidism Code(s): E03.9 - HYPOTHYROIDISM, UNSPECIFIED Qualifiers: Hypothyroidism type: unspecified Qualified Code(s): E03.9 - Hypothyroidism , unspecified (12) ICD (implantable cardioverter-defibrillator) in place Code(s): Z95.810 - PRESENCE OF AUTOMATIC (IMPLANTABLE) CARDIAC DEFIBRILLATOR (13) PVD (peripheral vascular disease) Code(s): I73.9 - PERIPHERAL VASCULAR DISEASE, UNSPECIFIED (14) Pleural effusion Code(s): J90 - PLEURAL EFFUSION, NOT ELSEWHERE CLASSIFIED (15) S/P CABG (coronary artery bypass graft) Code(s): Z95.1 - PRESENCE OF AORTOCORONARY BYPASS GRAFT (16) S/P peripheral artery angioplasty with stent placement Code(s): Z95.820 - PERIPHERAL VASCULAR ANGIOPLASTY STATUS W IMPLANTS AND GRAFTS Assessment/Plan 1. Altered mental status resolved 2. Chronic Systolic Heart Failure referable to ischemic dilated cardiomyopathy/ severe LV systolic dysfunction 3. CAD post remote [place] post CABG angina pectoris 4. Post prophylactic ICD implant ([employer]'s device) 5. HTN 6. IDDM 7. Hypercholesterolemia 8. PAD with left toe gangrene s/p aortogram, LLE angiogram, SFA atherectomy, DCB SFA angioplasty, with sfa stent 9. ESRD on HD, right AVG with steal and hyperkalemia 10. Anemia of CKD 11. Hypothyroidism 12. History of GI bleed PLAN: 1. HD per nephrology 2. Continue Toprol XL 100 qd 3. Continue Entresto 49/51 bid - monitor electrolytes 4. Continue ASA 81 qd and Plavix 75 qd 5. Continue Lipitor 20 qhs 6. DVT and GI prophylaxis 7. Elective right arm angiogram and DRIL procedure Further plans are to follow Jarocho Taylor MD
[2018-04-17] MEDS ORDERED: LIDOCAINE HCL 1%, 10 MG/ML (20ML VIAL) ONE (13:23)
[2018-04-17] MEDS ORDERED: HEPARIN NA (PORCINE) 5,000 UNITS/ML 1ML VIAL ONE ×2 (13:24→15:51)
[2018-04-17] MEDS ORDERED: LIDOCAINE HCL/PF 1% SDV 5ML VIAL ONE (13:43)
[2018-04-17] MEDS ORDERED: ETOMIDATE 20 MG/10 ML AMPUL IVPUSH ONE (14:03)
[2018-04-17] MEDS ORDERED: PROPOFOL 20 ML ONE (14:03)
[2018-04-17] MEDS ORDERED: SUCCINYLCHOLINE CHLORIDE 200 MG/10 ML VIAL ONE (14:03)
[2018-04-17] MEDS ORDERED: LIDOCAINE HCL/PF 2% SDV 5ML VIAL ONE (14:03)
[2018-04-17] MEDS ORDERED: ceFAZolin SODIUM 1 GM VIAL ONE (14:03)
[2018-04-17] MEDS ORDERED: SODIUM CHLORIDE 250 ML IV PRN (14:11)
--- NOTE | 2018-04-17 14:11 | PN ---
Progress Note, Physician History of Present Illness: Pt seen and examined at bedside. He is awake and alert. He denies shortness of breath. - Current Medication List Current Medications: Active Medications Albuterol Sulfate (Ventolin 0.083% Nebulizer Soln -) 1 amp NEB Q8H PRN PRN Reason: Dyspnea Aspirin (Asa -) 81 mg PO DAILY [facility] Last Admin: 04/17/18 09:52 Dose: Not Given Atorvastatin Calcium (Lipitor -) 20 mg PO [facility] Last Admin: 04/16/18 22:39 Dose: 20 mg Calcium Acetate (Phoslo -) 667 mg PO TIDCM [facility] Last Admin: 04/17/18 09:52 Dose: Not Given Clopidogrel Bisulfate (Plavix -) 75 mg PO DAILY [facility] Last Admin: 04/17/18 09:52 Dose: Not Given Insulin Aspart (Novolog Vial Sliding Scale -) 1 vial SQ [facility]; Protocol Last Admin: 04/17/18 11:32 Dose: Not Given Insulin Detemir (Levemir Vial) 10 units SQ [facility] Last Admin: 04/16/18 22:41 Dose: Not Given Levothyroxine Sodium (Synthroid -) 25 mcg PO DAILY@0700 [facility] Last Admin: 04/17/18 06:38 Dose: 25 mcg Metoprolol Succinate (Toprol Xl -) 100 mg PO DAILY [facility] Last Admin: 04/17/18 09:52 Dose: Not Given Pantoprazole Sodium (Protonix -) 40 mg PO DAILY [facility] Last Admin: 04/17/18 09:52 Dose: Not Given Pramipexole Dihydrochloride (Mirapex -) 0.125 mg PO TID [facility] Last Admin: 04/17/18 06:38 Dose: 0.125 mg Sacubitril/Valsartan (Entresto 49 Mg-51 Mg Tablet) 1 tab PO BID [facility] Last Admin: 04/17/18 09:52 Dose: Not Given Senna (Senna -) 1 tab PO [facility] Last Admin: 04/16/18 22:39 Dose: 1 tab Sertraline HCl (Zoloft -) 50 mg PO [facility] Last Admin: 04/16/18 22:39 Dose: 50 mg - Objective Vital Signs: Vital Signs Temperature 97.7 F 04/17/18 09:51 Pulse Rate 81 04/17/18 09:51 Respiratory Rate 20 04/17/18 09:51 Blood Pressure 154/65 04/17/18 09:51 O2 Sat by Pulse Oximetry (%) 95 04/16/18 21:00 Constitutional: Yes: Calm Eyes: Yes: Conjunctiva Clear HENT: Yes: Atraumatic Neck: Yes: Supple Cardiovascular: Yes: S1, S2 Respiratory: Yes: CTA Bilaterally Gastrointestinal: Yes: Normal Bowel Sounds, Soft Genitourinary: Yes: WNL Musculoskeletal: Yes: WNL Edema: No Neurological: Yes: Oriented Psychiatric: Yes: Oriented Labs: CBC, BMP 04/13/18 08:15 04/13/18 08:15 INR, PTT INR 1.05 (0.82-1.09) 04/07/18 08:15 Problem List - Problems (1) ESRD (end stage renal disease) Code(s): N18.6 - END STAGE RENAL DISEASE (2) Anemia Code(s): D64.9 - ANEMIA, UNSPECIFIED Qualifiers: Anemia type: due to chronic kidney disease Chronic kidney disease stage: on chronic dialysis Qualified Code(s): N18.6 - End stage renal disease; D63.1 - Anemia in chronic kidney disease; Z99.2 - Dependence on renal dialysis (3) CHF (congestive heart failure), NYHA class IV Code(s): I50.9 - HEART FAILURE, UNSPECIFIED Qualifiers: Congestive heart failure type: combined Congestive heart failure chronicity : chronic Qualified Code(s): I50.42 - Chronic combined systolic (congestive) and diastolic (congestive) heart failure Assessment/Plan Current Medications Generic Name Dose Route Start Last Admin Trade Name Andrésq PRN Reason Stop Dose Admin Albuterol Sulfate 1 amp 04/12/18 16:03 Ventolin 0.083% Nebulizer Soln - NEB Q8H PRN Dyspnea Aspirin 81 mg 04/13/18 10:00 04/17/18 09:52 Asa - PO Not Given DAILY [facility] Atorvastatin Calcium 20 mg 04/12/18 22:00 04/16/18 22:39 Lipitor - PO 20 mg HS [facility] Administration Calcium Acetate 667 mg 04/12/18 17:30 04/17/18 09:52 Phoslo - PO Not Given TIDCM [facility] Clopidogrel Bisulfate 75 mg 04/13/18 10:00 04/17/18 09:52 Plavix - PO Not Given DAILY [facility] Insulin Aspart 1 vial 04/12/18 16:30 04/17/18 11:32 Novolog Vial Sliding Scale - SQ Not Given ACHS [facility] Protocol Insulin Detemir 10 units 04/15/18 22:00 04/16/18 22:41 Levemir Vial SQ Not Given HS [facility] Levothyroxine Sodium 25 mcg 04/13/18 07:00 04/17/18 06:38 Synthroid - PO 25 mcg DAILY@0700 [facility] Administration Metoprolol Succinate 100 mg 04/13/18 10:00 04/17/18 09:52 Toprol Xl - PO Not Given DAILY [facility] Pantoprazole Sodium 40 mg 04/13/18 10:00 04/17/18 09:52 Protonix - PO Not Given DAILY [facility] Pramipexole Dihydrochloride 0.125 mg 04/12/18 22:00 04/17/18 06:38 Mirapex - PO 0.125 mg TID [facility] Administration Sacubitril/Valsartan 1 tab 04/14/18 22:00 04/17/18 09:52 Entresto 49 Mg-51 Mg Tablet PO Not Given BID [facility] Senna 1 tab 04/12/18 22:00 04/16/18 22:39 Senna - PO 1 tab HS [facility] Administration Sertraline HCl 50 mg 04/12/18 22:00 04/16/18 22:39 Zoloft - PO 50 mg HS [facility] Administration Impression 1. ESRD 2. fluid overload 3. DM 4. CAD 5. PVD 6. DFU 7. anemia 8. steal syndrome Plan - HD in am - vascular procedure on - check labs in am - renal diet and fluid restriction - will follow Dr Dove
[2018-04-17] MEDS ORDERED: BUPIVACAINE HCL/PF 0.5% (5MG/ML) 10 ML VIAL IJ ONE (15:06)
[2018-04-17] MEDS ORDERED: LIDOCAINE HCL 1%, 10 MG/ML (20ML VIAL) INF ONE (15:06)
[2018-04-17] MEDS ORDERED: HEPARIN NA (PORCINE) 5,000 UNITS/ML 1ML VIAL SQ ONE (15:34)
--- NOTE | 2018-04-17 18:08 | OP ---
Operative Note - Note: Operative Date: 04/17/18 Pre-Operative Diagnosis: arterial steal right arm Operation: right arm angiogram, DRIL Findings: triphasic signal in wrist arteries postop Implants: 6 mm ringed propaten Post-Operative Diagnosis: Same as Pre-op Surgeon: Paul Richard Anesthesia: Local, MAC Estimated Blood Loss (mls): 100
[2018-04-17] MEDS ORDERED: PT OWN MED DRAWER 7, Y5N ONE ×2 (22:09→22:10)
[2018-04-17] MEDS: SERTRALINE HCL 25 MG TABLET (FP) PO SCH (22:12)
[2018-04-17] MEDS: INSULIN (LEVEMIR) 100 UNITS/ML UNITS SQ SCH (22:13)
[2018-04-17] MEDS: ATORVASTATIN CA 20 MG TABLET (FP) PO SCH (22:13)
[2018-04-17] MEDS: SENNOSIDES 8.6MG TABLET (FP) PO SCH (22:13)
[2018-04-18] MEDS: INSULIN SLIDING SCALE (NOVOLOG) 1 VIAL SQ SCH ×3 (06:23→18:03)
[2018-04-18] MEDS: PRAMIPEXOLE DIHYDROCHLORIDE 0.125 MG TABLET PO SCH (06:23)
[2018-04-18] MEDS: LEVOTHYROXINE NA 25 MCG TABLET (FP) PO SCH (06:23)
[2018-04-18] MEDS ORDERED: MORPHINE SULFATE 2 MG/ML VIAL IVPUSH ONE (06:44)
--- NOTE | 2018-04-18 08:46 | PN ---
Progress Note (short form) - Note Progress Note: Anesthesia post op/Pain Pt seen and examined S:Alert and awake O: Vital Signs Temperature 97.9 F 04/18/18 06:00 Pulse Rate 80 04/18/18 06:00 Respiratory Rate 18 04/18/18 06:00 Blood Pressure 143/71 04/18/18 06:00 O2 Sat by Pulse Oximetry (%) 98 04/17/18 21:00 CBC, BMP 04/13/18 08:15 04/13/18 08:15 A/P Current Active Problems Altered mental status (Acute) Chronic HFrEF (heart failure with reduced ejection fraction) (Acute) ESRD (end stage renal disease) (Acute) Ischemic dilated cardiomyopathy (Acute) Slurred speech (Acute) s/pRUE angio Doing well post op Continue current care Roberth Aldridge MD
[2018-04-18] MEDS: CALCIUM ACETATE 667 MG CAPSULE (FP) PO SCH ×4 (09:58→18:03)
[2018-04-18] MEDS ORDERED: SACUBITRIL/VALSARTAN 49 MG-51 MG TABLET PO SCH (10:00)
[2018-04-18] MEDS ORDERED: SODIUM CHLORIDE 250 ML IV PRN (10:00)
[2018-04-18 10:26] LABS: HEMATOCRIT 33.8 % (35.4-49); MCH 29.4 pg (25.7-33.7); MCHC 32.4 g/dl (32.0-35.9); MEAN CELL VOLUME 90.7 fl (80-96); MEAN PLT VOLUME 9.3 fl (7.5-11.1); PLATELET COUNT 232 K/MM3 (134-434); RBC 3.73 M/mm3 (4.00-5.60); RDW 20.2 % (11.9-15.9); WHITE BLOOD COUNT 8.3 K/mm3 (4.0-10.0)
--- NOTE | 2018-04-18 10:50 | PN ---
Progress Note (short form) - Note Progress Note: POD 1 from right arm angiogram and distal revascularization interval ligation for arterial steal syndrome. right hand feels better, pain much improved, numbness improving. hand is warm, fingertips are pink with good capillary refill and looks much better than before. patient currently on HD, graft is working well. can follow up with us as outpatient upon discharge [phone]
[2018-04-18 11:14] LABS: ANION GAP 11 (8-16); BLOOD UREA NITROGEN 38 mg/dL (7-18); CALCIUM 8.2 mg/dL (8.5-10.1); CHLORIDE 100 mmol/L (98-107); CO2 29 mmol/L (21-32); CREATININE 6.1 mg/dL (0.7-1.3); GLUCOSE,RANDOM 220 mg/dL (74-106); POTASSIUM 3.8 mmol/L (3.5-5.1); SODIUM 140 mmol/L (136-145)
--- NOTE | 2018-04-18 12:10 | DS ---
Physical Examination Vital Signs: Vital Signs Temperature 97.9 F 04/18/18 06:00 Pulse Rate 81 04/18/18 11:30 Respiratory Rate 18 04/18/18 11:30 Blood Pressure 132/53 04/18/18 11:30 O2 Sat by Pulse Oximetry (%) 98 04/17/18 21:00 Constitutional: Yes: No Distress, Calm Cardiovascular: Yes: Regular Rate and Rhythm Respiratory: Yes: Diminished Gastrointestinal: Yes: Normal Bowel Sounds, Soft. No: Tenderness Edema: No Labs: CBC, BMP 04/18/18 09:40 04/18/18 09:40 Discharge Summary Reason For Visit: CVA/STROKE Current Active Problems Altered mental status (Acute) Chronic HFrEF (heart failure with reduced ejection fraction) (Acute) ESRD (end stage renal disease) (Acute) Ischemic dilated cardiomyopathy (Acute) Slurred speech (Acute) Hospital Course: Pt admitted for AMS-- no signs of infection, CT head negative Not a CVA as per Neurology Seen by Cardiology , Neurology Pt clinically stable Seen by Vascular-- had DRIL procedure to right arm and angiogram stable for dc to NH Condition: Improved - Instructions Diet, Activity, Other Instructions: Vascular note-- DR Richard Progress Note: POD 1 from right arm angiogram and distal revascularization interval ligation for arterial steal syndrome. right hand feels better, pain much improved, numbness improving. hand is warm, fingertips are pink with good capillary refill and looks much better than before. patient currently on HD, graft is working well. can follow up with us as outpatient upon discharge [phone] Disposition: CUSTODIAL FACILITY - Home Medications Comprehensive Discharge Medication List: Ambulatory Orders Acetaminophen 650 mg PO Q4H PRN 02/28/18 Aspirin [ASA -] 81 mg PO DAILY 02/28/18 Atorvastatin Ca [Lipitor] 80 mg PO HS 02/28/18 Calcium Acetate [Phoslo -] 667 mg PO TIDCM 02/28/18 Clopidogrel Bisulfate [Plavix -] 75 mg PO DAILY 02/28/18 Insulin (LOG) Aspart [NovoLOG -] 0 units SQ TID PRN 02/28/18 Insulin Glargine,Hum.rec.anlog [Lantus] 16 unit SQ HS 02/28/18 Levothyroxine [Synthroid -] 25 mcg PO DAILY 02/28/18 Metoprolol Succinate [Toprol Xl] 150 mg PO DAILY 02/28/18 Pantoprazole Sodium 40 mg PO DAILY 02/28/18 Sennosides [Senna -] 1 tab PO HS 02/28/18 Sertraline HCl [Zoloft -] 50 mg PO HS 02/28/18 Heparin - 5,000 unit SQ BID #1 vial 03/10/18 Albuterol 0.083% Nebulizer Yessi [Ventolin 0.083% Nebulizer Soln -] 1 amp IN Q8H PRN 03/28/18 Gabapentin [Neurontin -] 100 mg PO TID #60 capsule 04/05/18 Sacubitril/Valsartan [Entresto 49 mg-51 mg Tablet] 1 tab PO BID #60 tablet 04/05
[2018-04-18] MEDS: EPOETIN ALFA 3,000 UNIT/1 ML ML IVPUSH ONE ×2 (12:20→12:22)
[2018-04-18] MEDS: PANTOPRAZOLE 40 MG TABLET (FP) PO SCH ×2 (12:22→14:34)
[2018-04-18] MEDS: ASPIRIN 81 MG CHEWABLE TABLETS PO SCH ×2 (12:22→14:34)
--- NOTE | 2018-04-18 13:42 | PN ---
Progress Note, Physician History of Present Illness: Pt seen and examined at bedside. He is awake and alert. He is getting HD. He had DRIL procedure and says that his hand feels much better. He says he can move it better and that it is a big improvement. - Current Medication List Current Medications: Active Medications Aspirin (Asa -) 81 mg PO DAILY [facility] Last Admin: 04/18/18 12:22 Dose: Not Given Atorvastatin Calcium (Lipitor -) 20 mg PO HS [facility] Calcium Acetate (Phoslo -) 667 mg PO TIDCM [facility] Last Admin: 04/18/18 12:23 Dose: Not Given Insulin Aspart (Novolog Vial Sliding Scale -) 1 vial SQ [facility]; Protocol Last Admin: 04/18/18 12:23 Dose: Not Given Insulin Detemir (Levemir Vial) 10 units SQ [facility] Levothyroxine Sodium (Synthroid -) 25 mcg PO DAILY@0700 [facility] Metoprolol Succinate (Toprol Xl -) 100 mg PO DAILY [facility] Last Admin: 04/18/18 12:22 Dose: Not Given Pantoprazole Sodium (Protonix -) 40 mg PO DAILY [facility] Last Admin: 04/18/18 12:22 Dose: Not Given Pramipexole Dihydrochloride (Mirapex -) 0.125 mg PO TID [facility] Sacubitril/Valsartan (Entresto 49 Mg-51 Mg Tablet) 1 tab PO BID [facility] Last Admin: 04/18/18 12:22 Dose: Not Given Senna (Senna -) 1 tab PO [facility] Sertraline HCl (Zoloft -) 50 mg PO [facility] - Objective Vital Signs: Vital Signs Temperature 97.9 F 04/18/18 06:00 Pulse Rate 81 04/18/18 11:30 Respiratory Rate 18 04/18/18 11:30 Blood Pressure 132/53 04/18/18 11:30 O2 Sat by Pulse Oximetry (%) 98 04/18/18 09:00 Constitutional: Yes: Calm Eyes: Yes: Conjunctiva Clear HENT: Yes: Atraumatic Neck: Yes: Supple Cardiovascular: Yes: S1, S2 Respiratory: Yes: CTA Bilaterally Gastrointestinal: Yes: Soft Genitourinary: Yes: WNL Musculoskeletal: Yes: WNL Edema: No Neurological: Yes: Oriented Psychiatric: Yes: Oriented Labs: CBC, BMP 04/18/18 09:40 04/18/18 09:40 INR, PTT INR 1.05 (0.82-1.09) 04/07/18 08:15 Problem List - Problems (1) ESRD (end stage renal disease) Code(s): N18.6 - END STAGE RENAL DISEASE (2) Anemia Code(s): D64.9 - ANEMIA, UNSPECIFIED Qualifiers: Anemia type: due to chronic kidney disease Chronic kidney disease stage: on chronic dialysis Qualified Code(s): N18.6 - End stage renal disease; D63.1 - Anemia in chronic kidney disease; Z99.2 - Dependence on renal dialysis (3) CHF (congestive heart failure), NYHA class IV Code(s): I50.9 - HEART FAILURE, UNSPECIFIED Qualifiers: Congestive heart failure type: combined Congestive heart failure chronicity : chronic Qualified Code(s): I50.42 - Chronic combined systolic (congestive) and diastolic (congestive) heart failure Assessment/Plan Current Medications Generic Name Dose Route Start Last Admin Trade Name Freq PRN Reason Stop Dose Admin Aspirin 81 mg 04/18/18 10:00 04/18/18 12:22 Asa - PO Not Given DAILY [facility] Atorvastatin Calcium 20 mg 04/18/18 22:00 Lipitor - PO HS [facility] Calcium Acetate 667 mg 04/18/18 08:00 04/18/18 12:23 Phoslo - PO Not Given TIDCM [facility] Insulin Aspart 1 vial 04/18/18 11:00 04/18/18 12:23 Novolog Vial Sliding Scale - SQ Not Given ACHS [facility] Protocol Insulin Detemir 10 units 04/18/18 22:00 Levemir Vial SQ HS [facility] Levothyroxine Sodium 25 mcg 04/19/18 07:00 Synthroid - PO DAILY@0700 [facility] Metoprolol Succinate 100 mg 04/18/18 10:00 04/18/18 12:22 Toprol Xl - PO Not Given DAILY [facility] Pantoprazole Sodium 40 mg 04/18/18 10:00 04/18/18 12:22 Protonix - PO Not Given DAILY [facility] Pramipexole Dihydrochloride 0.125 mg 04/18/18 14:00 Mirapex - PO TID [facility] Sacubitril/Valsartan 1 tab 04/18/18 10:00 04/18/18 12:22 Entresto 49 Mg-51 Mg Tablet PO Not Given BID [facility] Senna 1 tab 04/18/18 22:00 Senna - PO HS [facility] Sertraline HCl 50 mg 04/18/18 22:00 Zoloft - PO HS [facility] Impression 1. ESRD 2. fluid overload 3. DM 4. CAD 5. PVD 6. DFU 7. anemia 8. steal syndrome Plan - HD today - pt had DRIL procedure yesterday - discussed with vascular - he has HD spot as outpt - renal diet and fluid restriction - will follow Dr Dove
[2018-04-18] MEDS ORDERED: PRAMIPEXOLE DIHYDROCHLORIDE 0.125 MG TABLET PO SCH (14:00)
[2018-04-18] MEDS ORDERED: EPOETIN ALFA 2,000 UNIT/1 ML VIAL IVPUSH ONE (14:11)
[2018-04-18 14:24] LABS: CREATININE 2.2 mg/dL (0.7-1.3)
[2018-04-18] MEDS ORDERED: PT OWN MED DRAWER 7, Y5N ONE (14:30)
[2018-04-18 15:27] VITALS: BP 139/64; PULSE 85; TEMP 98.3
--- NOTE | 2018-04-18 16:52 | PN ---
Progress Note, Physician History of Present Illness: POD 1# from right arm angiogram and distal revascularization interval ligation for arterial steal syndrome. Right hand feels better, pain much improved, numbness improving. denies chest pain or dyspnea. - Current Medication List Current Medications: Active Medications Aspirin (Asa -) 81 mg PO DAILY [facility] Last Admin: 04/18/18 14:34 Dose: 81 mg Atorvastatin Calcium (Lipitor -) 20 mg PO [facility] Calcium Acetate (Phoslo -) 667 mg PO TIDCM [facility] Last Admin: 04/18/18 14:34 Dose: 667 mg Insulin Aspart (Novolog Vial Sliding Scale -) 1 vial SQ [facility]; Protocol Last Admin: 04/18/18 12:23 Dose: Not Given Insulin Detemir (Levemir Vial) 10 units SQ [facility] Levothyroxine Sodium (Synthroid -) 25 mcg PO DAILY@0700 [facility] Metoprolol Succinate (Toprol Xl -) 100 mg PO DAILY [facility] Last Admin: 04/18/18 14:33 Dose: 100 mg Pantoprazole Sodium (Protonix -) 40 mg PO DAILY [facility] Last Admin: 04/18/18 14:34 Dose: 40 mg Pramipexole Dihydrochloride (Mirapex -) 0.125 mg PO TID [facility] Last Admin: 04/18/18 14:34 Dose: 0.125 mg Sacubitril/Valsartan (Entresto 49 Mg-51 Mg Tablet) 1 tab PO BID [facility] Last Admin: 04/18/18 12:22 Dose: Not Given Senna (Senna -) 1 tab PO [facility] Sertraline HCl (Zoloft -) 50 mg PO [facility] - Objective Vital Signs: Vital Signs Temperature 98.3 F 04/18/18 15:25 Pulse Rate 85 04/18/18 15:25 Respiratory Rate 18 04/18/18 15:25 Blood Pressure 139/64 04/18/18 15:25 O2 Sat by Pulse Oximetry (%) 98 04/18/18 09:00 Constitutional: Yes: No Distress, Calm, Thin Neck: Yes: Supple Cardiovascular: Yes: Regular Rate and Rhythm Respiratory: Yes: Regular, CTA Bilaterally Gastrointestinal: Yes: Normal Bowel Sounds, Soft Edema: No Labs: CBC, BMP 04/18/18 09:40 04/18/18 13:10 INR, PTT INR 1.05 (0.82-1.09) 04/07/18 08:15 Problem List - Problems (1) Altered mental status Code(s): R41.82 - ALTERED MENTAL STATUS, UNSPECIFIED Qualifiers: Altered mental status type: unspecified Qualified Code(s): R41.82 - Altered mental status, unspecified (2) Chronic HFrEF (heart failure with reduced ejection fraction) Code(s): I50.22 - CHRONIC SYSTOLIC (CONGESTIVE) HEART FAILURE (3) ESRD (end stage renal disease) Code(s): N18.6 - END STAGE RENAL DISEASE (4) Slurred speech Code(s): R47.81 - SLURRED SPEECH (5) ASHD (arteriosclerotic heart disease) Code(s): I25.10 - ATHSCL HEART DISEASE OF [place] CORONARY ARTERY W/O ANG PCTRS (6) CHF (congestive heart failure), NYHA class IV Code(s): I50.9 - HEART FAILURE, UNSPECIFIED Qualifiers: Congestive heart failure type: combined Congestive heart failure chronicity : chronic Qualified Code(s): I50.42 - Chronic combined systolic (congestive) and diastolic (congestive) heart failure (7) Diabetes Code(s): E11.9 - TYPE 2 DIABETES MELLITUS WITHOUT COMPLICATIONS Qualifiers: Diabetes mellitus type: type 2 Diabetes mellitus joint terminal attack controller insulin use: without [place] [facility] use Diabetes mellitus complication status: with neurologic complications (8) HTN (hypertension) Code(s): I10 - ESSENTIAL (PRIMARY) HYPERTENSION Qualifiers: Hypertension type: essential hypertension Qualified Code(s): I10 - Essential (primary) hypertension (9) Hyperkalemia Code(s): E87.5 - HYPERKALEMIA (10) Hypothyroidism Code(s): E03.9 - HYPOTHYROIDISM, UNSPECIFIED Qualifiers: Hypothyroidism type: unspecified Qualified Code(s): E03.9 - Hypothyroidism , unspecified (11) ICD (implantable cardioverter-defibrillator) in place Code(s): Z95.810 - PRESENCE OF AUTOMATIC (IMPLANTABLE) CARDIAC DEFIBRILLATOR (12) PVD (peripheral vascular disease) Code(s): I73.9 - PERIPHERAL VASCULAR DISEASE, UNSPECIFIED (13) S/P CABG (coronary artery bypass graft) Code(s): Z95.1 - PRESENCE OF AORTOCORONARY BYPASS GRAFT (14) S/P peripheral artery angioplasty with stent placement Code(s): Z95.820 - PERIPHERAL VASCULAR ANGIOPLASTY STATUS W IMPLANTS AND GRAFTS (15) Steal syndrome of dialysis vascular access Code(s): T82.898A - OTH COMPLICATION OF VASCULAR PROSTH DEV/GRFT, INIT Qualifiers: Encounter type: subsequent encounter Qualified Code(s): T82.898D - Other specified complication of vascular prosthetic devices, implants and grafts, subsequent encounter (16) Anemia Code(s): D64.9 - ANEMIA, UNSPECIFIED Qualifiers: Anemia type: due to chronic kidney disease Chronic kidney disease stage: on chronic dialysis Qualified Code(s): N18.6 - End stage renal disease; D63.1 - Anemia in chronic kidney disease; Z99.2 - Dependence on renal dialysis (17) Ischemic dilated cardiomyopathy Code(s): I25.5 - ISCHEMIC CARDIOMYOPATHY; I42.0 - DILATED CARDIOMYOPATHY Assessment/Plan 03/01/2018 Echo: Normal LV size with severely decreased LV fxn, mild TR, tr MR, pleural efusion 1. Altered mental status resolved 2. Chronic Systolic Heart Failure referable to ischemic dilated cardiomyopathy/ severe LV systolic dysfunction 3. CAD post remote NE post CABG angina pectoris 4. Post prophylactic ICD implant ([employer]'s device) 5. HTN 6. IDDM 7. Hypercholesterolemia 8. PAD with left toe gangrene s/p aortogram, LLE angiogram, SFA atherectomy, DCB SFA angioplasty, with sfa stent 9. ESRD on HD, right AVG with steal POD#1 right arm angiogram and DRIL procedure 10. Anemia of CKD 11. Hypothyroidism 12. History of GI bleed PLAN: 1. HD per nephrology 2. Continue Toprol XL 100 qd 3. Continue Entresto 49/51 bid - monitor electrolytes 4. Continue ASA 81 qd 5. Continue Lipitor 20 qhs 6. DVT and GI prophylaxis 7. D/c planning
[2018-04-18] MEDS ORDERED: SENNOSIDES 8.6MG TABLET (FP) PO SCH (22:00)
[2018-04-18] MEDS ORDERED: INSULIN (LEVEMIR) 100 UNITS/ML UNITS SQ SCH (22:00)
[2018-04-18] MEDS ORDERED: SERTRALINE HCL 25 MG TABLET (FP) PO SCH (22:00)
[2018-04-18] MEDS ORDERED: ATORVASTATIN CA 20 MG TABLET (FP) PO SCH (22:00)
[2018-04-19] MEDS ORDERED: LEVOTHYROXINE NA 25 MCG TABLET (FP) PO SCH (07:00)
--- NOTE | 2018-07-02 20:26 | OP ---
DATE OF OPERATION: 04/17/2018 PREOPERATIVE DIAGNOSIS: Arterial steal of right arm. POSTOPERATIVE DIAGNOSIS: Arterial steal of right arm. PROCEDURE PERFORMED: Right arm angiogram and DRIL (distal revascularization and interval ligation) procedure. SURGEON: Paul Richard MD FURNACE MASON: None. ESTIMATED BLOOD LOSS: 20 mL SPECIMEN: None. DESCRIPTION OF PROCEDURE: The patient was brought to the operating room. Sedation was administered by Anesthesia. The patient's right arm AV graft was prepped and draped in the usual sterile fashion. The graft was accessed using a micropuncture set and a Yieldexenstein catheter and Bentson wire advanced into the brachial artery. Brachial artery angiogram was performed with runoff. This demonstrated a patent brachial artery with good target for DRIL procedure. The sheath was then removed, and a 3-0 Prolene was used to close the access site. Incision was then made in the right arm above the arterial anastomosis of the graft. Dissection was carried out through the subcutaneous tissue using electrocautery. The brachial artery was identified, was dissected, and vessel loops were placed around it proximally and distally. The brachial artery was similarly dissected free below the arterial anastomosis in the proximal forearm. A 6-mm ringed [place] PTFE graft was selected. This was tunneled between the 2 sites. The proximal end of the graft was beveled. Next, 5000 units of heparin were administered. The brachial artery was clamped proximally and distally, and the arteriotomy was made using 11-blade scalpel with Ross scissors and brachial artery anastomosis performed using 6-0 Prolene. Completion anastomosis, the anastomosis was cleaned and tied. The graft was flushed retrograde with heparinized saline and clamped. Distal portion of the graft was then beveled. The brachial artery was clamped proximally and distally, and the distal anastomosis was then performed in a similar fashion. Completion anastomosis, the graft was de-aired, flushed with heparinized saline, and then released. Good flow was noted throughout the graft with a strong pulse distally. The brachial artery was then ligated between the distal anastomosis and the arterial anastomosis of the AV graft using a medium hemoclip. Both wounds were irrigated and the subcutaneous tissue was reapproximated using 2 layers of 3-0 Vicryl and the skin was closed using 4-0 Monocryl in a running subcuticular fashion. Dermabond was applied to both sites. All counts were correct at the end of the procedure. Alec MAURO/[id number]
== END 2018-04-18 18:42 | DRG 252 ==
LOC: JER 19:26 → JERBED 21:46 → UNDOADMIN 04-07 00:33 → JERBED 04-07 00:33 → J4W 04-07 04:41 → J5S 04-12 15:42
PROVIDERS: ADMIT Internal Medicine; ATTEND Internal Medicine
PROC: 5A1D70Z Performance of Urinary Filtration, Intermittent, Less than 6 Hours Per Day (ICD-10-PCS; 2018-04-06)
PROC: 5A1D70Z Performance of Urinary Filtration, Intermittent, Less than 6 Hours Per Day (ICD-10-PCS; 2018-04-07)
PROC: 5A1D70Z Performance of Urinary Filtration, Intermittent, Less than 6 Hours Per Day (ICD-10-PCS; 2018-04-09)
PROC: 5A1D70Z Performance of Urinary Filtration, Intermittent, Less than 6 Hours Per Day (ICD-10-PCS; 2018-04-11)
PROC: 5A1D70Z Performance of Urinary Filtration, Intermittent, Less than 6 Hours Per Day (ICD-10-PCS; 2018-04-13)
PROC: 03170JF Bypass Right Brachial Artery to Lower Arm Vein with Synthetic Substitute, Open Approach (ICD-10-PCS; 2018-04-17)
PROC: 03170AD Bypass Right Brachial Artery to Upper Arm Vein with Autologous Arterial Tissue, Open Approach (ICD-10-PCS; 2018-04-17)
PROC: 03L70CZ Occlusion of Right Brachial Artery with Extraluminal Device, Open Approach (ICD-10-PCS; 2018-04-17)
PROC: B50MYZZ Plain Radiography of Right Upper Extremity Veins using Other Contrast (ICD-10-PCS; 2018-04-17)
PROC: 03770ZZ Dilation of Right Brachial Artery, Open Approach (ICD-10-PCS; principal; 2018-04-17 13:00)
PROC: 5A1D70Z Performance of Urinary Filtration, Intermittent, Less than 6 Hours Per Day (ICD-10-PCS; 2018-04-18)
DX: T82.898A Other specified complication of vascular prosthetic devices, implants and grafts, initial encounter (principal); N18.6 End stage renal disease; I96 Gangrene, not elsewhere classified; E11.52 Type 2 diabetes mellitus with diabetic peripheral angiopathy with gangrene; I13.2 Hypertensive heart and chronic kidney disease with heart failure and with stage 5 chronic kidney disease, or end stage renal disease; I50.42 Chronic combined systolic (congestive) and diastolic (congestive) heart failure; Y83.8 Other surgical procedures as the cause of abnormal reaction of the patient, or of later complication, without mention of misadventure at the time of the procedure; J44.9 Chronic obstructive pulmonary disease, unspecified; E11.22 Type 2 diabetes mellitus with diabetic chronic kidney disease; I25.10 Atherosclerotic heart disease of native coronary artery without angina pectoris; I34.0 Nonrheumatic mitral (valve) insufficiency; I25.2 Old myocardial infarction; F41.9 Anxiety disorder, unspecified; E87.5 Hyperkalemia; R41.82 Altered mental status, unspecified; R47.81 Slurred speech; I25.5 Ischemic cardiomyopathy; G25.3 Myoclonus; T42.6X5A Adverse effect of other antiepileptic and sedative-hypnotic drugs, initial encounter; D63.1 Anemia in chronic kidney disease; E11.51 Type 2 diabetes mellitus with diabetic peripheral angiopathy without gangrene; Z86.73 Personal history of transient ischemic attack (TIA), and cerebral infarction without residual deficits; Z95.0 Presence of cardiac pacemaker; Z95.1 Presence of aortocoronary bypass graft; Z99.2 Dependence on renal dialysis; Z87.891 Personal history of nicotine dependence; Z95.820 Peripheral vascular angioplasty status with implants and grafts
CPT/HCPCS: 36415; 70450-TC; 71045-TC-FY; 73630-TC-LT; 76000-TC-FY; 80048; 80053; 80061; 81003; 81015; 82550; 82565; 82607; 82962; 83540; 83550; 83605; 83721; 83735; 83880; 84100; 84436; 84443; 84484; 84520; 85025; 85027; 85610; 85730; 86850; 86900; 86901; 87040; 87086; 93005; 93010; 94640; 94760; 97116-GP; 97161-GP; 99282-25; J0885; J1644

== ENCOUNTER 2018-04-21 08:55 | Emergency (ER) | payer OTHER ==
[2018-04-21 09:11] VITALS: TEMP 97.8; BMI 21.7
[2018-04-21 09:57] LABS: BASO % 0.9 % (0-2.0); EOS % 1.9 % (0-4.5); LYMPH % 10.5 % (8-40); MCH 29.8 pg (25.7-33.7); MCHC 33.2 g/dl (32.0-35.9); MEAN CELL VOLUME 89.6 fl (80-96); MEAN PLT VOLUME 9.1 fl (7.5-11.1); MONO % 8.8 % (3.8-10.2); NEUT % 77.9 % (42.8-82.8); PLATELET COUNT 214 K/MM3 (134-434); RBC 3.35 M/mm3 (4.00-5.60); RDW 19.1 % (11.9-15.9)
--- NOTE | 2018-04-21 10:18 | PDOC ---
History of Present Illness <Sarah Shoemaker - Last Filed: 04/21/18 13:51> - History of Present Illness Initial Comments: 04/21/18 11:04 The patient is a 72 year old male with a significant past medical history of R hip replacement, AF, CAD, COPD, CHF, ESRD on HD (TTS), NIDDM, hypothyroidism, RUE steal syndrome s/p repair, dementia, who presents to the emergency department from [facility] s/p fall at approximately 11:30pm last night. The patient is accompanied by his great-niece who provides history. Per staff (our RN also spoke with them), the pt normally ambulates with walker but tried to move to the other side of the bed unassisted and fell onto his R hip. Staff witnessed the fall, state the pt did not lose consiousness or strike his head. The patient reports non-radiating pain to the posterior area of his right hip, 5 /10 in severity, which feels like something is moving inside. The patient also reports lateral pain to his right ribs with movement. Denies SOB. Pt was also due for HD this morning, however, the staff at the [facility] sent him in today for XR of his hip prior to getting HD. The patient denies chest pain, headache, and dizziness. Denies fevers, chills, nausea, vomiting, diarrhea, and constipation. Denies dysuria, frequency, urgency, and hematuria. Allergies: NKA Past surgical history: CABGx3, PPM, defibrillator Social history: Former smoker, quit 2004 (5 cigarettes per day) PCP: Dr. Umanzor <Jeremi Garcia - Last Filed: 04/21/18 16:54> - General Chief Complaint: Injury Stated Complaint: FALL Time Seen by Provider: 04/21/18 09:56 Past History <Sarah Shoemaker - Last Filed: 04/21/18 13:51> - Past Medical History Cardiac Disorders: Yes (AFIB, ASHD, CAD, [place],) COPD: Yes CHF: Yes (CHF, Acute pulmonary edema, bronchospasm) Diabetes: Yes (Type 2) Dialysis: Yes GI Disorders: Yes (GIB, constipation, salmonella,) HTN: Yes Hypercholesterolemia: Yes Liver Disease: Yes (DIC) Psychiatric Problems: Yes (depression, dementia) Thyroid Disease: Yes (Hypothyroidism) - Surgical History Cardiac Surgery: Yes (CABG x 3, PPM, Defibrillator) Orthopedic Surgery: Yes (right hip replacement) - Suicide/Smoking/Psychosocial Hx Smoking History: Never smoked Have you smoked in the past 12 months: No Number of Cigarettes Smoked Daily: 5 If you are a former smoker, when did you quit?: 2004 Information on smoking cessation initiated: No Hx Alcohol Use: No Drug/Substance Use Hx: No Substance Use Type: None Hx Substance Use Treatment: No <NassefJosea - Last Filed: 04/21/18 16:54> - Past Medical History Allergies/Adverse Reactions: Allergies Allergy/AdvReac Type Severity Reaction Status Date / Time gabapentin [From Neurontin] AdvReac Verified 04/21/18 13:02 Home Medications: Ambulatory Orders Acetaminophen 650 mg PO Q4H PRN 02/28/18 Aspirin [ASA -] 81 mg PO DAILY 02/28/18 Atorvastatin Ca [Lipitor] 80 mg PO HS 02/28/18 Calcium Acetate [Phoslo -] 667 mg PO TIDCM 02/28/18 Clopidogrel Bisulfate [Plavix -] 75 mg PO DAILY 02/28/18 Insulin Glargine,Hum.rec.anlog [Lantus] 16 unit SQ HS 02/28/18 Levothyroxine [Synthroid -] 25 mcg PO DAILY 02/28/18 Metoprolol Succinate [Toprol Xl] 150 mg PO DAILY 02/28/18 Pantoprazole Sodium 40 mg PO DAILY 02/28/18 Sennosides [Senna -] 1 tab PO HS 02/28/18 Sertraline HCl [Zoloft -] 50 mg PO HS 02/28/18 Heparin - 5,000 unit SQ BID #1 vial 03/10/18 Albuterol 0.083% Nebulizer Yessi [Ventolin 0.083% Nebulizer Soln -] 1 amp IN Q8H PRN 03/28/18 Sacubitril/Valsartan [Entresto 49 mg-51 mg Tablet] 1 tab PO BID #60 tablet 04/05 Gabapentin [Neurontin -] 100 mg PO DAILY 04/21/18 Melatonin 3 mg PO HS 04/21/18 Review of Systems - Review of Systems Comments:: 04/21/18 10:48 GENERAL/CONSTITUTIONAL: No fever or chills. No weakness. HEAD, EYES, EARS, NOSE AND THROAT: No change in vision. No ear pain or discharge. No sore throat. CARDIOVASCULAR: No chest pain or shortness of breath. RESPIRATORY: No cough, wheezing, or hemoptysis. GASTROINTESTINAL: No nausea, vomiting, diarrhea or constipation. GENITOURINARY: No dysuria, frequency, or change in urination. MUSCULOSKELETAL: (+) Right hip pain. (+) Right sided rib pain. No neck or back pain. SKIN: No new legions or rash NEUROLOGIC: No headache, vertigo, loss of consciousness, or change in strength/ sensation. ENDOCRINE: No increased thirst. No abnormal weight change. HEMATOLOGIC/LYMPHATIC: No anemia, easy bleeding, or history of blood clots. ALLERGIC/IMMUNOLOGIC: No hives or skin allergy. <Jeremi Garcia - Last Filed: 04/21/18 16:54> *Physical Exam - Vital Signs Last Vital Signs Temp Pulse Resp BP Pulse Ox 97.8 F 79 18 121/60 98 04/21/18 09:06 04/21/18 09:06 04/21/18 09:06 04/21/18 09:06 04/21/18 09:06 <Sarah Shoemaker - Last Filed: 04/21/18 13:51> - Vital Signs Last Vital Signs Temp Pulse Resp BP Pulse Ox 97.8 F 79 18 121/60 98 04/21/18 09:06 04/21/18 09:06 04/21/18 09:06 04/21/18 09:06 04/21/18 09:06 - Physical Exam Comments: 04/21/18 10:49 GENERAL: Awake, alert, and fully oriented, in no acute distress HEAD: No signs of trauma EYES: PERRLA, EOMI, sclera anicteric, conjunctiva clear ENT: Auricles normal inspection, hearing grossly normal, nares patent, oropharynx clear without exudates. Moist mucosa NECK: Normal ROM, supple, no lymphadenopathy, JVD, or masses LUNGS: Breath sounds slightly diminished at the bases, clear to auscultation bilaterally. No wheezes, and no crackles HEART: Regular rate and rhythm, normal S1 and S2, no murmurs, rubs or gallops ABDOMEN: Soft, nontender, normoactive bowel sounds. No guarding, no rebound. No masses EXTREMITIES: +dry gangrene to L great toe. No evidence of streaking or discharge. RUE with edema and mild erythema, daughter states is markedly improved compared to prior. Pt able to move all fingers RUE, with normal sensation. Fistula in RUE with palpable thrill. NEUROLOGICAL: Cranial nerves II through XII grossly intact. Normal speech. Able to bear weight on both extremities with assistance SKIN: Warm, Dry, normal turgor, no rashes or lesions noted. <Jeremi Garcia - Last Filed: 04/21/18 16:54> Heart Score/ECG Review #1 04/21/18 10:58 Twelve-lead EKG was performed and reviewed by me. A troponin paced rhythm, rate 80. Normal axis.+ LVH. ST depressions in 1, aVL, V5, V6. EKG unchanged compared to EKG from 04/06/2018. <Jeremi Garcia - Last Filed: 04/21/18 16:54> ED Treatment Course - LABORATORY CBC & Chemistry Diagram: 04/21/18 09:35 04/21/18 09:35 - ADDITIONAL ORDERS Additional order review: Laboratory Results 04/21/18 04/21/18 09:35 09:35 PT with INR 11.90 INR 1.05 Sodium 135 L Potassium 4.2 Chloride 95 L Carbon Dioxide 31 Anion Gap 9 BUN 29 H Creatinine 5.7 H Creat Clearance w eGFR 9.86 Random Glucose 210 H Calcium 9.3 Total Bilirubin 0.5 AST 37 D ALT 14 D Alkaline Phosphatase 118 H Creatine Kinase 246 Creatine Kinase Index 1.1 CK-MB (CK-2) 2.73 Troponin I 0.10 H D Total Protein 7.5 Albumin 3.7 04/21/18 09:35 RBC 3.35 L MCV 89.6 MCHC 33.2 RDW 19.1 H MPV 9.1 Neutrophils % 77.9 Lymphocytes % 10.5 D Monocytes % 8.8 Eosinophils % 1.9 Basophils % 0.9 - RADIOLOGY Radiograph Interpretation: 04/21/18 13:51 Hip/Pelvic X-Ray was reviewed by Dr. Garcia and over-read by Radiology. Impression: No acute pathology appreciated. Intact right hip replacement. Chest X-Ray was reviewed by Dr. Garcia and over-read by Radiology. Impression: No acute pathology. Clearing of bibasilar changes since 04/06/2018. - Medications Given in the ED: ED Medications Discontinued Medications Generic Name Dose Route Start Last Admin Trade Name Brian PRN Reason Stop Dose Admin Acetaminophen 1,000 mg 04/21/18 11:18 04/21/18 11:38 Ofirmev Injection - IVPB 04/21/18 11:19 1,000 mg ONCE ONE Administration <Sarah Shoemaker - Last Filed: 04/21/18 13:51> - LABORATORY CBC & Chemistry Diagram: 04/21/18 09:35 04/21/18 09:35 - ADDITIONAL ORDERS Additional order review: 04/21/18 09:35 RBC 3.35 L MCV 89.6 MCHC 33.2 RDW 19.1 H MPV 9.1 Neutrophils % 77.9 Lymphocytes % 10.5 D Monocytes % 8.8 Eosinophils % 1.9 Basophils % 0.9 <Jeremi Garcia - Last Filed: 04/21/18 16:54> Medical Decision Making - Medical Decision Making 04/21/18 11:16 72yo M with MMP including R hip replacement presents to the ED with R hip and R rib pain after fall after walking unassisted. Vitals unremarkable. Pt able to range the R hip fully and bear weight at his baseline per his great niece. Will obtain XR of hip/chest to r/o bony injury. Will also check labs as pt missed HD. Unclear if pt has syncopal episode or mechanical fall, but likely mechanical as pt was walking unassisted. 04/21/18 14:27 CBC at baseline CMP with normal K, labs consistent with ESRD otherwise trop neg x2 CXR clear RN spoke with staff at [facility] who will be able to dialyze pt today Pt seen by Dr. Dove who recommends stopping home neurontin as pt has been having some agitation at the [facility] Requested we list as allergy which was done Transport ordered for pt I discussed the physical exam findings, ancillary test results and final diagnoses with the patient. I answered all of the patient's questions. The patient was satisfied with the care received and felt comfortable with the discharge plan and treatment plan. The patient will call their primary care physician within 24 hours to arrange follow-up and will return to the Emergency Department with any new, persistent or worsening symptoms. <Jeremi Garcia - Last Filed: 04/21/18 16:54> *DC/Admit/Observation/Transfer - Attestations Scribe Attestion: 04/21/18 13:54 Documentation prepared by Sarah hSoemaker, acting as biomedical engineering technologist for Jeremi Garcia MD. <Sarah Shoemaker - Last Filed: 04/21/18 13:51> - Discharge Dispostion Decision to Admit order: No - Attestations Physician Attestion: 04/21/18 14:38 I, Dr. Jeremi Garcia MD, attest that this document has been prepared under my direction and personally reviewed by me in its entirety. I further attest, that it accurately reflects all work, treatment, procedures and medical decision -making performed by me. <Jeremi Garcia - Last Filed: 04/21/18 16:54> Diagnosis at time of Disposition: Accident due to mechanical fall without injury - Discharge Dispostion Disposition: HOME Condition at time of disposition: Stable - Referrals Referrals: Nery Umanzor MD [Primary Care Provider] - - Patient Instructions Printed Discharge Instructions: How to Prevent Falls Additional Instructions: Stop taking neurontin/gabapentin. Use the walker at all times to walk. We spoke with the staff at your senior care who will administer dialysis today. Return to the emergency department if you have any new, worsening, or concerning symptoms. - Post Discharge Activity
[2018-04-21 10:31] LABS: INR 1.05 (0.82-1.09); PROTHROMBIN TIME (PATIENT) 11.9 SEC (9.7-13.0)
[2018-04-21 10:41] LABS: ALBUMIN 3.7 g/dl (3.4-5.0); ANION GAP 9 (8-16); BILIRUBIN,TOTAL 0.5 mg/dL (0.2-1.0); BLOOD UREA NITROGEN 29 mg/dL (7-18); CALCIUM 9.3 mg/dL (8.5-10.1); CHLORIDE 95 mmol/L (98-107); CO2 31 mmol/L (21-32); CREATININE 5.7 mg/dL (0.7-1.3); GLUCOSE,RANDOM 210 mg/dL (74-106); SGPT/ALT 14 U/L (12-78); SODIUM 135 mmol/L (136-145); TOT PROT 7.5 g/dl (6.4-8.2)
[2018-04-21 10:43] LABS: ALK PHOS 118 U/L (45-117)
[2018-04-21 10:44] LABS: POTASSIUM 4.2 mmol/L (3.5-5.1); SGOT/AST 37 U/L (15-37)
[2018-04-21] MEDS ORDERED: ACETAMINOPHEN 1000 MG/100 ML VIAL (NON FORMULARY) IVPB ONE (11:18)
[2018-04-21] MEDS ORDERED: ACETAMINOPHEN INJECTION 100 ML IVPB ONE (11:32)
--- NOTE | 2018-04-21 14:41 | EKG ---
Test Reason : Blood Pressure : / mmHG Vent. Rate : 080 BPM Atrial Rate : 080 BPM P-R Int : 216 ms QRS Dur : 086 ms QT Int : 460 ms P-R-T Axes : -07 000 128 degrees QTc Int : 530 ms Atrial-paced rhythm with prolonged AV conduction MINIMAL VOLTAGE CRITERIA FOR LVH, MAY BE NORMAL VARIANT PROLONGED QT ABNORMAL ECG WHEN COMPARED WITH ECG OF 06-APR-2018 20:13, QT HAS LENGTHENED Confirmed by Austin Lynn ([id number]) on 04/21/2018 2:41:16 PM Referred By: Confirmed By:Austin Lynn
[2018-04-21 14:46] VITALS: BP 134/74; PULSE 81
== END 2018-04-21 15:45 ==
LOC: JER 08:55
PROC: 3E033NZ Introduction of Analgesics, Hypnotics, Sedatives into Peripheral Vein, Percutaneous Approach (ICD-10-PCS; principal; 2018-04-21)
DX: M25.551 Pain in right hip (principal); R07.81 Pleurodynia; W18.39XA Other fall on same level, initial encounter; Y93.89 Activity, other specified; Y92.128 Other place in nursing home as the place of occurrence of the external cause; Y99.8 Other external cause status; I25.10 Atherosclerotic heart disease of native coronary artery without angina pectoris; I13.2 Hypertensive heart and chronic kidney disease with heart failure and with stage 5 chronic kidney disease, or end stage renal disease; N18.6 End stage renal disease; I50.9 Heart failure, unspecified; Z99.2 Dependence on renal dialysis; Z95.1 Presence of aortocoronary bypass graft; Z87.891 Personal history of nicotine dependence; Z95.810 Presence of automatic (implantable) cardiac defibrillator; E11.9 Type 2 diabetes mellitus without complications; Z79.84 Long term (current) use of oral hypoglycemic drugs; E03.9 Hypothyroidism, unspecified; F03.90 Unspecified dementia, unspecified severity, without behavioral disturbance, psychotic disturbance, mood disturbance, and anxiety; Z87.19 Personal history of other diseases of the digestive system; Z96.641 Presence of right artificial hip joint
CPT/HCPCS: 36415; 71045-TC-FY; 73523-TC-FY; 80053; 82550; 82553; 84484; 85025; 85610; 93005; 93010; 96374; 99283-25; J0131

== ENCOUNTER 2018-06-13 21:21 | Inpatient (IN) | payer OTHER ==
--- NOTE | 2018-06-13 21:53 | PDOC ---
History of Present Illness - General Chief Complaint: Pain, Acute Stated Complaint: GANGRENE ON TOE Time Seen by Provider: 06/13/18 21:32 History Source: Patient, Residential Records - History of Present Illness Initial Comments: 06/13/18 22:48 72-year-old male with history of wound to the left great toe brought in by daughter from [facility] for gangrene to then left great toe with erythema swelling with streaking to the foot.the gangrenous toe is foul-smelling for 1 week. Denies fever, chills, nausea, vomiting, abdominal pain, chest pain. patient has a past medical history of h/o ESRD on HD (RUE access, //), HTN, COPD, CABG x 4, pacemaker use, CHF , PVD, dry gangrene left great toe. Past History - Past Medical History Allergies/Adverse Reactions: Allergies Allergy/AdvReac Type Severity Reaction Status Date / Time gabapentin [From Neurontin] AdvReac Verified 06/13/18 21:54 Home Medications: Ambulatory Orders Acetaminophen 650 mg PO Q4H PRN 02/28/18 Aspirin [ASA -] 81 mg PO DAILY 02/28/18 Atorvastatin Ca [Lipitor] 80 mg PO HS 02/28/18 Calcium Acetate [Phoslo -] 667 mg PO TIDCM 02/28/18 Clopidogrel Bisulfate [Plavix -] 75 mg PO DAILY 02/28/18 Insulin Glargine,Hum.rec.anlog [Lantus] 16 unit SQ HS 02/28/18 Levothyroxine [Synthroid -] 25 mcg PO DAILY 02/28/18 Metoprolol Succinate [Toprol Xl] 150 mg PO DAILY 02/28/18 Pantoprazole Sodium 40 mg PO DAILY 02/28/18 Sennosides [Senna -] 1 tab PO HS 02/28/18 Sertraline HCl [Zoloft -] 50 mg PO HS 02/28/18 Heparin - 5,000 unit SQ BID #1 vial 03/10/18 Albuterol 0.083% Nebulizer Yessi [Ventolin 0.083% Nebulizer Soln -] 1 amp IN Q8H PRN 03/28/18 Sacubitril/Valsartan [Entresto 49 mg-51 mg Tablet] 1 tab PO BID #60 tablet 04/05 Gabapentin [Neurontin -] 100 mg PO DAILY 04/21/18 Melatonin 3 mg PO HS 04/21/18 Cardiac Disorders: Yes (AFIB, ASHD, CAD, [place],) COPD: Yes CHF: Yes (CHF, Acute pulmonary edema, bronchospasm) Diabetes: Yes (Type 2) Dialysis: Yes GI Disorders: Yes (GIB, constipation, salmonella,) HTN: Yes Hypercholesterolemia: Yes Liver Disease: Yes (DIC) Psychiatric Problems: Yes (depression, dementia) Thyroid Disease: Yes (Hypothyroidism) - Surgical History Cardiac Surgery: Yes (CABG x 3, PPM, Defibrillator) Orthopedic Surgery: Yes (right hip replacement) - Suicide/Smoking/Psychosocial Hx Smoking History: Never smoked Have you smoked in the past 12 months: No Number of Cigarettes Smoked Daily: 5 If you are a former smoker, when did you quit?: 2004 Hx Alcohol Use: No Drug/Substance Use Hx: No Substance Use Type: None Hx Substance Use Treatment: No Review of Systems - Review of Systems Able to Perform ROS?: Yes Is the patient limited Taiwanese proficient: No Constitutional: No: Symptoms Reported, See HPI, Chills, Diaphoresis, Fever, Loss of Appetite, Malaise, Night Sweats, Weakness, Weight Stable, Unintentional Wgt. Loss, Unexplained wgt Loss, Other Musculoskeletal: Yes: Other (toe pain and swelling) *Physical Exam - Vital Signs 06/13/18 22:51 Vital Signs Temperature 98.1 F 06/13/18 21:25 Pulse Rate 80 06/13/18 21:25 Respiratory Rate 19 06/13/18 21:25 Blood Pressure 150/68 06/13/18 21:25 O2 Sat by Pulse Oximetry (%) 99 06/13/18 21:25 - Physical Exam General Appearance: Yes: Appropriately Dressed Respiratory/Chest: positive: Rales Cardiovascular: positive: Regular Rate, Murmur Gastrointestinal/Abdominal: positive: Normal Bowel Sounds, Soft. negative: Tender Integumentary: positive: Erythema ( with streaking to great toe. distal tip is gangarnous. ), Swelling Neurologic: positive: Fully Oriented, Alert ED Treatment Course - LABORATORY CBC & Chemistry Diagram: 06/13/18 23:50 06/13/18 23:50 Progress Note - Progress Note Progress Note: A: cellulitis and abscess of left great toe P: cbc cmp lactic acid toe xray patient to the ED Medical Decision Making - Medical Decision Making 06/14/18 00:57 patient signed out to Anne Yanes NP./ Dr. burns *DC/Admit/Observation/Transfer Diagnosis at time of Disposition: Gangrene, Cellulitis and abscess of foot, Infection of toe - Discharge Dispostion Condition at time of disposition: Fair Decision to Admit order: Yes - Referrals - Patient Instructions - Post Discharge Activity
[2018-06-13] MEDS ORDERED: morphine CARPU-JECT 2 MG/1 ML DISP.SYRIN IVPUSH ONE (21:58)
[2018-06-13] MEDS ORDERED: MORPHINE SULFATE 2 MG/ML VIAL ONE (23:23)
[2018-06-13 23:55] LABS: URINE APPEARANCE CLEAR; URINE BILIRUBIN NEGATIVE (<2.0 mg/dL); URINE COLOR DKYELLOW; URINE GLUCOSE (UA) 2+ (NEGATIVE); URINE KETONE NEGATIVE (NEGATIVE); URINE LEUK ESTERASE NEGATIVE (NEGATIVE); URINE NITRITE NEGATIVE (NEGATIVE); URINE UROBILINOGEN NEGATIVE mg/dL (0.2-1.0)
[2018-06-13 23:58] LABS: URINE PROTEIN 3+ (NEGATIVE)
[2018-06-13 23:59] LABS: BASO % 0.6 % (0-2.0); HEMATOCRIT 33.3 % (35.4-49); HEMOGLOBIN 10.9 GM/dL (11.7-16.9); LYMPH % 6.4 % (8-40); MCH 29.6 pg (25.7-33.7); MCHC 32.9 g/dl (32.0-35.9); MEAN CELL VOLUME 90.1 fl (80-96); MEAN PLT VOLUME 8.6 fl (7.5-11.1); MONO % 8.2 % (3.8-10.2); NEUT % 83.8 % (42.8-82.8); PLATELET COUNT 242 K/MM3 (134-434); RDW 16.9 % (11.9-15.9); WHITE BLOOD COUNT 11.1 K/mm3 (4.0-10.0)
[2018-06-13 23:59] LABS: EPI CELLS RARE /HPF (FEW); URINE BACTERIA RARE /hpf (NONE SEEN); URINE HYALINE CAST 1 /lpf
[2018-06-14] MEDS ORDERED: VANCOMYCIN 1 GM PREMIX - 1 GM/200 ML BAG IVPB ONE (00:04)
[2018-06-14] MEDS ORDERED: PIPERACILLIN/TAZOB 3.375 GM 3.375 GM in DEXTROSE 5%-WATER - 50 ML IVPB ONE (00:05)
[2018-06-14 00:07] LABS: VENOUS PH 7.31 (7.32-7.42)
[2018-06-14 00:10] LABS: INR 0.98 (0.83-1.09); PROTHROMBIN TIME (PATIENT) 11.1 SEC (9.7-13.0); VENOUS PO2 17.1 mmHg (28-48)
[2018-06-14] MEDS ORDERED: PIPERACILLIN/TAZOB 3.375 GM 3.375 GM/50 ML BAG IVPB ONE (00:11)
[2018-06-14] MEDS ORDERED: VANCOMYCIN 1 GRAM (PRE-DOCKED) 1,000 MG/250 ML BAG IVPB ONE (00:11)
[2018-06-14 00:13] LABS: ACTIVATED PTT 30.3 SECONDS (25.2-36.5)
[2018-06-14 00:22] LABS: ALBUMIN 3.5 g/dl (3.4-5.0); ALK PHOS 146 U/L (45-117); ANION GAP 9 MMOL/L (8-16); BILIRUBIN,TOTAL 0.4 mg/dL (0.2-1.0); BLOOD UREA NITROGEN 40 mg/dL (7-18); CALCIUM 8.6 mg/dL (8.5-10.1); CHLORIDE 94 mmol/L (98-107); CO2 31 mmol/L (21-32); CREATININE 5.9 mg/dL (0.7-1.3); GLUCOSE,RANDOM 236 mg/dL (74-106); POTASSIUM 4.2 mmol/L (3.5-5.1); SGOT/AST 20 U/L (15-37); SGPT/ALT 15 U/L (12-78); SODIUM 134 mmol/L (136-145); TOT PROT 7.4 g/dl (6.4-8.2)
[2018-06-14] MEDS ORDERED: SODIUM CHLORIDE 250 ML IV STA (00:31)
--- NOTE | 2018-06-14 01:10 | HP ---
CHIEF COMPLAINT: Necrotic Toe PCP: Dr. Moshe Nur HISTORY OF PRESENT ILLNESS: 72 y/o man from [facility] with a PMHx of ESRD (HD-,,), CABG , CHF, PPM, PVD, HTN, COPD, Dry Gangrene Left Great Toe. Who presents to the ED with his daughter for gangrene to then left great toe with erythema swelling with streaking to the foot.the gangrenous toe is foul-smelling for 1 week. The patient's daughter reports to the ED provider that the patient has had dressing changes at the AR but the toe was not improving. ER course was notable for: (1) WBC 11.1, Neutrophils 83.8 (2) Lactic Acid 3.1~ 1.5 (3) BUN 40 Cr 5.9 Recent Travel: None PAST MEDICAL HISTORY: See HPI PAST SURGICAL HISTORY: See HPI Social History: Smoking: Never Alcohol: None Drugs: None Resides at [facility] Family History: Non-contributory Allergies gabapentin [From Neurontin] Adverse Reaction (Verified 06/13/18 21:54) HOME MEDICATIONS: Home Medications Medication Instructions Recorded Acetaminophen 650 mg PO Q4H PRN 02/28/18 Aspirin [ASA -] 81 mg PO DAILY 02/28/18 Atorvastatin Ca [Lipitor] 80 mg PO HS 02/28/18 Calcium Acetate [Phoslo -] 667 mg PO TIDCM 02/28/18 Clopidogrel Bisulfate [Plavix -] 75 mg PO DAILY 02/28/18 Insulin Glargine,Hum.rec.anlog 16 unit SQ HS 02/28/18 [Lantus] Levothyroxine [Synthroid -] 25 mcg PO DAILY 02/28/18 Metoprolol Succinate [Toprol Xl] 150 mg PO DAILY 02/28/18 Pantoprazole Sodium 40 mg PO DAILY 02/28/18 Sennosides [Senna -] 1 tab PO HS 02/28/18 Sertraline HCl [Zoloft -] 50 mg PO HS 02/28/18 Heparin - 5,000 unit SQ BID #1 vial 03/10/18 Albuterol 0.083% Nebulizer Yessi 1 amp IN Q8H PRN 03/28/18 [Ventolin 0.083% Nebulizer Soln -] Sacubitril/Valsartan [Entresto 49 1 tab PO BID #60 tablet 04/05/18 mg-51 mg Tablet] Gabapentin [Neurontin -] 100 mg PO DAILY 04/21/18 Melatonin 3 mg PO HS 04/21/18 REVIEW OF SYSTEMS CONSTITUTIONAL: Absent: fever, chills, diaphoresis, generalized weakness, malaise, loss of appetite, weight change HEENT: Absent: rhinorrhea, nasal congestion, throat pain, throat swelling, difficulty swallowing, mouth swelling, ear pain, eye pain, visual changes CARDIOVASCULAR: Absent: chest pain, syncope, palpitations, irregular heart rate, lightheadedness , peripheral edema RESPIRATORY: Absent: cough, shortness of breath, dyspnea with exertion, orthopnea, wheezing, stridor, hemoptysis GASTROINTESTINAL: Absent: abdominal pain, abdominal distension, nausea, vomiting, diarrhea, constipation, melena, hematochezia GENITOURINARY: Absent: dysuria, frequency, urgency, hesitancy, hematuria, flank pain, genital pain MUSCULOSKELETAL: Absent: myalgia, arthralgia, joint swelling, back pain, neck pain SKIN: redness, swelling and foul smelling discharge to left great toe Absent: rash, itching, pallor HEMATOLOGIC/IMMUNOLOGIC: Absent: easy bleeding, easy bruising, lymphadenopathy, frequent infections ENDOCRINE: Absent: unexplained weight gain, unexplained weight loss, heat intolerance, cold intolerance NEUROLOGIC: Absent: headache, focal weakness or paresthesias, dizziness, unsteady gait, seizure, mental status changes, bladder or bowel incontinence PSYCHIATRIC: Absent: anxiety, depression, suicidal or homicidal ideation, hallucinations. PHYSICAL EXAMINATION Vital Signs - 24 hr 06/13/18 21:25 Temperature 98.1 F Pulse Rate 80 Respiratory 19 Rate Blood Pressure 150/68 O2 Sat by Pulse 99 Oximetry (%) GENERAL: Awake, alert, and fully oriented, in no acute distress. HEAD: Normal with no signs of trauma. EYES: Pupils equal, round and reactive to light, extraocular movements intact, sclera anicteric, conjunctiva clear. No lid lag. EARS, NOSE, THROAT: Ears normal, nares patent, oropharynx clear without exudates. Moist mucous membranes. NECK: Normal range of motion, supple without lymphadenopathy, JVD, or masses. LUNGS: Breath sounds equal, clear to auscultation bilaterally. No wheezes, and no crackles. No accessory muscle use. HEART: Regular rate and rhythm, normal S1 and S2, +systolic murmur, No rub or gallop. ABDOMEN: Soft, nontender, not distended, normoactive bowel sounds, no guarding, no rebound, no masses. No hepatomegaly or splenomegaly. MUSCULOSKELETAL: Normal range of motion at all joints. No bony deformities or tenderness. No CVA tenderness. UPPER EXTREMITIES: 2+ pulses, warm, well-perfused. No cyanosis. No clubbing. No peripheral edema. LOWER EXTREMITIES: 2+ pulses, warm, well-perfused. No calf tenderness. No peripheral edema. NEUROLOGICAL: Cranial nerves II-XII intact. Normal speech. Gait not observed. PSYCHIATRIC: Cooperative. Good eye contact. Appropriate mood and affect. SKIN: Warm, dry, normal turgor, no rashes noted, normal capillary refill. + erythema with tracking, Laboratory Results - last 24 hr 06/13/18 06/13/18 06/13/18 23:30 23:50 23:50 WBC 11.1 H RBC 3.70 L Hgb 10.9 L Hct 33.3 L MCV 90.1 MCH 29.6 MCHC 32.9 RDW 16.9 H Plt Count 242 MPV 8.6 Absolute Neuts (auto) 9.3 H Neutrophils % 83.8 H Lymphocytes % 6.4 L D Monocytes % 8.2 Eosinophils % 1.0 Basophils % 0.6 Nucleated RBC % 0 PT with INR 11.10 INR 0.98 PTT (Actin FS) 30.3 VBG pH POC VBG pCO2 POC VBG pO2 Mixed VBG HCO3 Sodium Potassium Chloride Carbon Dioxide Anion Gap BUN Creatinine Creat Clearance w eGFR Random Glucose Lactic Acid Calcium Total Bilirubin AST ALT Alkaline Phosphatase Troponin I Total Protein Albumin Urine Color Dkyellow Urine Appearance Clear Urine pH 6.0 Ur Specific [place] 1.018 Urine Protein 3+ H Urine Glucose (UA) 2+ H Urine Ketones Negative Urine Blood Negative Urine Nitrite Negative Urine Bilirubin Negative Urine Urobilinogen Negative Ur Leukocyte Esterase Negative Urine WBC (Auto) 5 Urine RBC (Auto) 3 Ur Epithelial Cells Rare Urine Bacteria Rare Hyaline Casts 1 06/13/18 06/13/18 06/13/18 23:50 23:50 23:50 WBC RBC Hgb Hct MCV MCH MCHC RDW Plt Count MPV Absolute Neuts (auto) Neutrophils % Lymphocytes % Monocytes % Eosinophils % Basophils % Nucleated RBC % PT with INR INR PTT (Actin FS) VBG pH 7.31 L POC VBG pCO2 61.0 H* POC VBG pO2 17.1 L* Mixed VBG HCO3 29.9 H Sodium 134 L Potassium 4.2 Chloride 94 L Carbon Dioxide 31 Anion Gap 9 BUN 40 H Creatinine 5.9 H Creat Clearance w eGFR 9.47 Random Glucose 236 H Lactic Acid 3.1 H* Calcium 8.6 Total Bilirubin 0.4 AST 20 D ALT 15 Alkaline Phosphatase 146 H Troponin I Total Protein 7.4 Albumin 3.5 Urine Color Urine Appearance Urine pH Ur Specific [place] Urine Protein Urine Glucose (UA) Urine Ketones Urine Blood Urine Nitrite Urine Bilirubin Urine Urobilinogen Ur Leukocyte Esterase Urine WBC (Auto) Urine RBC (Auto) Ur Epithelial Cells Urine Bacteria Hyaline Casts 06/13/18 23:50 WBC RBC Hgb Hct MCV MCH MCHC RDW Plt Count MPV Absolute Neuts (auto) Neutrophils % Lymphocytes % Monocytes % Eosinophils % Basophils % Nucleated RBC % PT with INR INR PTT (Actin FS) VBG pH POC VBG pCO2 POC VBG pO2 Mixed VBG HCO3 Sodium Potassium Chloride Carbon Dioxide Anion Gap BUN Creatinine Creat Clearance w eGFR Random Glucose Lactic Acid Calcium Total Bilirubin AST ALT Alkaline Phosphatase Troponin I 0.03 D Total Protein Albumin Urine Color Urine Appearance Urine pH Ur Specific [place] Urine Protein Urine Glucose (UA) Urine Ketones Urine Blood Urine Nitrite Urine Bilirubin Urine Urobilinogen Ur Leukocyte Esterase Urine WBC (Auto) Urine RBC (Auto) Ur Epithelial Cells Urine Bacteria Hyaline Casts ASSESSMENT/PLAN: This is a 72 y/o man PMHx of ESRD (HD-,), HTN, HLD, CABG, PPM, CHF, PVD, Anemia. Admitted for Gangrene of L- Great Toe, Cellulitis and Abscess of L Foot for further evaluation of their emergent condition. Plan: 1. ID: Gangrene of L- Great Toe, Cellulitis/Abscess of Left Foot - Likely secondary to PVD - +leukocytosis with L shift - Lactic Acid 3.0~ 1.5(post fluid resuscitation in ED) - Wound culture pending - Blood cultures pending - Xray Left foot- image reviewed, awaiting official report - Appreciate Vascular consult - Appreciate ID consult - Continue Vancomycin, Zosyn renal dosing - Morphine Sulfate given in ED, will use judiciously secondary to renal failure 2. Nephrology: ESRD - HD (,,) - Appreciate Nephrology consult- for HD management 3. Cardiology: HTN, HLD, CHF, PVD - stable - Monitor BP - Continue home meds with parameters - O2 4. Heme: Anemia - Likely secondary to ESRD - stable - Hgb 10.9, at baseline - Will transfuse if Hgb < 7.0 5. FEN - Fluid Restriction 1L - Replete lytes prn - NPO 6. DVT ppx - OOB - SCDs - Heparin SQ Code Status: MOLST: DNR, HCP (Senait Pretty, daughter [phone]) Dispo: Requires Inpatient Care Problem List - Problem (1) Gangrene Code(s): I96 - GANGRENE, NOT ELSEWHERE CLASSIFIED (2) Infection of toe Code(s): L08.9 - LOCAL INFECTION OF THE SKIN AND SUBCUTANEOUS TISSUE, UNSP (3) ESRD (end stage renal disease) Code(s): N18.6 - END STAGE RENAL DISEASE (4) ASHD (arteriosclerotic heart disease) Code(s): I25.10 - ATHSCL HEART DISEASE OF [place] CORONARY ARTERY W/O ANG PCTRS (5) Anemia Code(s): D64.9 - ANEMIA, UNSPECIFIED (6) CHF (congestive heart failure), NYHA class IV Code(s): I50.9 - HEART FAILURE, UNSPECIFIED Qualifiers: (7) COPD (chronic obstructive pulmonary disease) Code(s): J44.9 - CHRONIC OBSTRUCTIVE PULMONARY DISEASE, UNSPECIFIED Qualifiers: (8) HTN (hypertension) Code(s): I10 - ESSENTIAL (PRIMARY) HYPERTENSION Qualifiers: (9) Hypothyroidism Code(s): E03.9 - HYPOTHYROIDISM, UNSPECIFIED Qualifiers: (10) ICD (implantable cardioverter-defibrillator) in place Code(s): Z95.810 - PRESENCE OF AUTOMATIC (IMPLANTABLE) CARDIAC DEFIBRILLATOR (11) PVD (peripheral vascular disease) Code(s): I73.9 - PERIPHERAL VASCULAR DISEASE, UNSPECIFIED Visit type - Emergency Visit Emergency Visit: Yes ED Registration Date: 06/13/18 Care time: The patient presented to the Emergency Department on the above date and was hospitalized for further evaluation of their emergent condition. - New Patient This patient is new to me today: Yes Date on this admission: 06/14/18 - Critical Care Critical Care patient: No Hospitalist Screening - Colonoscopy Questionnaire Colonoscopy Questionnaire: Colonoscopy Questionnaire - Patient: 50 - 75 years old and never had a screening colonoscopy: Unknown History of colon or rectal polyps, or CA: Unknown History of IBD, Crohn's disease or UC: Unknown History of abdominal radiation therapy as a child: Unknown - Relative: 1 with colon or rectal CA, or polyps at age 60 or younger: Unknown Colon or rectal CA diagnosed at age 45 or younger: Unknown Multiple relatives with colon or rectal CA: Unknown - Outcome: Screening Result: Negative Screen
[2018-06-14] MEDS ORDERED: ACETAMINOPHEN 325 MG TABLET (FP) PO PRN (05:59)
[2018-06-14] MEDS ORDERED: ALBUTEROL SO4 0.083% IH SOL 2.5 MG/3 ML VIAL.NEB. NEB PRN (05:59)
[2018-06-14] MEDS ORDERED: MORPHINE SULFATE 2 MG/ML VIAL IVPUSH ONE (06:00)
[2018-06-14] MEDS: LEVOTHYROXINE NA 25 MCG TABLET (FP) PO SCH (07:00)
[2018-06-14] MEDS ORDERED: PT OWN MED DRAWER 7, Y5N ONE ×3 (07:24→20:33)
[2018-06-14 07:51] LABS: BASO % 1.1 % (0-2.0); EOS % 2.4 % (0-4.5); HEMATOCRIT 31.9 % (35.4-49); HEMOGLOBIN 10.2 GM/dL (11.7-16.9); LYMPH % 11.1 % (8-40); MCH 28.9 pg (25.7-33.7); MCHC 31.9 g/dl (32.0-35.9); MEAN CELL VOLUME 90.3 fl (80-96); MEAN PLT VOLUME 8.4 fl (7.5-11.1); MONO % 10.6 % (3.8-10.2); NEUT % 74.8 % (42.8-82.8); PLATELET COUNT 213 K/MM3 (134-434); RBC 3.54 M/mm3 (4.00-5.60); RDW 17.2 % (11.9-15.9); WHITE BLOOD COUNT 8.7 K/mm3 (4.0-10.0)
[2018-06-14 08:05] LABS: INR 1.03 (0.83-1.09); PROTHROMBIN TIME (PATIENT) 11.6 SEC (9.7-13.0)
[2018-06-14 08:28] LABS: ANION GAP 10 MMOL/L (8-16); BLOOD UREA NITROGEN 42 mg/dL (7-18); CALCIUM 8.6 mg/dL (8.5-10.1); CHLORIDE 97 mmol/L (98-107); CO2 29 mmol/L (21-32); CREATININE 6.3 mg/dL (0.7-1.3); GLUCOSE,RANDOM 228 mg/dL (74-106); POTASSIUM 4.7 mmol/L (3.5-5.1); SODIUM 136 mmol/L (136-145)
[2018-06-14] MEDS: ASPIRIN 81 MG CHEWABLE TABLETS PO SCH (10:41)
[2018-06-14] MEDS: CLOPIDOGREL BISULFATE 75 MG TABLET (FP) PO SCH (10:42)
[2018-06-14] MEDS ORDERED: SODIUM CHLORIDE 250 ML IV PRN (10:46)
[2018-06-14] MEDS: PANTOPRAZOLE 40 MG TABLET (FP) PO SCH (10:50)
[2018-06-14] MEDS: SACUBITRIL/VALSARTAN 24 MG-26 MG TABLET PO SCH ×2 (10:51→23:33)
[2018-06-14] MEDS: HEPARIN NA (PORCINE) 5,000 UNITS/ML 1ML VIAL SQ SCH ×2 (10:52→21:46)
[2018-06-14] MEDS: HEPARIN NA (PORCINE) 5,000 UNITS/ML 1ML VIAL IVPUSH SCH ×3 (11:00→13:00)
--- NOTE | 2018-06-14 12:25 | CON.CARD ---
Consult Consult Specialty:: Cardiology Referred by:: Emili Rainey MD Reason for Consultation:: Pre-procedure cardiovascular evaluation - History of Present Illness Chief Complaint: CLI History of Present Illness: 72 y/o man from [facility] with a PMHx of ESRD (HD-,,) right AVG with steal s/p right arm angiogram and DRIL procedure, hypothyroidism, anemia of CKD , CAD s/p MO, CABG, systolic CHF, h/o Medtronic ICD, DM, chol, HTN, COPD, PAD with chronic limb ischemia and non-healing left toe ulcer despite aortogram, LLE angiogram, SFA atherectomy, DCB SFA angioplasty, with sfa stent who presented for gangrene to left great toe with erythema swelling with streaking to the foot.the gangrenous toe is foul-smelling for 1 week, despite local wound care. Right hand ischemic sxs improved post DRIL procedure. Regarding cardiovascular symptoms, patient denies chest pain, dyspnea, palpitations, near or true syncope, orthopnea, PND or LE edema. 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 Cardio/Vascular: Yes: AFIB, CAD, CHF, HTN, Hyperlipdemia, MO, Mitral Insufficiency Gastrointestinal: Yes: GI Bleed Renal/: Yes: Renal Inusuff, Hemodialysis Psych: Yes: Anxiety Endocrine: Yes: Diabetes Mellitus - Past Surgical History Past Surgical History: Yes: AICD, AV Fistula/Graft, CABG - Alcohol/Substance Use Hx Alcohol Use: No - Smoking History Smoking history: Former smoker Have you smoked in the past 12 months: No Aproximately how many cigarettes per day: 5 If you are a former smoker, when did you quit?: 2004 Home Medications - Allergies Allergies/Adverse Reactions: Allergies Allergy/AdvReac Type Severity Reaction Status Date / Time gabapentin [From Neurontin] AdvReac Verified 06/13/18 21:54 - Home Medications Home Medications: Ambulatory Orders Acetaminophen 650 mg PO Q4H PRN 02/28/18 Aspirin [ASA -] 81 mg PO DAILY 02/28/18 Atorvastatin Ca [Lipitor] 80 mg PO HS 02/28/18 Calcium Acetate [Phoslo -] 667 mg PO TIDCM 02/28/18 Clopidogrel Bisulfate [Plavix -] 75 mg PO DAILY 02/28/18 Insulin Glargine,Hum.rec.anlog [Lantus] 16 unit SQ HS 02/28/18 Levothyroxine [Synthroid -] 25 mcg PO DAILY 02/28/18 Metoprolol Succinate [Toprol Xl] 150 mg PO DAILY 02/28/18 Pantoprazole Sodium 40 mg PO DAILY 02/28/18 Sennosides [Senna -] 1 tab PO HS 02/28/18 Sertraline HCl [Zoloft -] 50 mg PO HS 02/28/18 Heparin - 5,000 unit SQ BID #1 vial 03/10/18 Albuterol 0.083% Nebulizer Yessi [Ventolin 0.083% Nebulizer Soln -] 1 amp IN Q8H PRN 03/28/18 Sacubitril/Valsartan [Entresto 49 mg-51 mg Tablet] 1 tab PO BID #60 tablet 04/05 Gabapentin [Neurontin -] 100 mg PO DAILY 04/21/18 Melatonin 3 mg PO HS 04/21/18 Review of Systems - Review of Systems Integumentary: reports: Wound Vital Signs: Vital Signs Temperature 98.7 F 06/14/18 03:03 Pulse Rate 80 06/14/18 03:03 Respiratory Rate 20 06/14/18 03:03 Blood Pressure 150/63 06/14/18 03:03 O2 Sat by Pulse Oximetry (%) 95 06/14/18 01:49 Constitutional: Yes: No Distress, Calm, Thin Neck: Yes: Supple Respiratory: Yes: Regular, CTA Bilaterally Gastrointestinal: Yes: Normal Bowel Sounds, Soft Cardiovascular: Yes: Regular Rate and Rhythm JVD: No Carotid Bruit: No Heart Sounds: Yes: S1, S2 Murmur: Yes: Systolic Murmur, Grade 1 Edema: No - Other Data Labs, Other Data: CBC, BMP 06/14/18 07:10 06/14/18 07:10 INR, PTT INR 1.03 (0.83-1.09) 06/14/18 07:10 Troponin, BNP 06/13/18 23:50 Troponin I 0.03 D Troponin, BNP 06/13/18 23:50 Troponin I 0.03 D Imaging - Results Chest X-ray: Report Reviewed (NAD) Problem List - Problems (1) Cellulitis and abscess of foot Code(s): L03.119 - CELLULITIS OF UNSPECIFIED PART OF LIMB; L02.619 - CUTANEOUS ABSCESS OF UNSPECIFIED FOOT (2) Gangrene Code(s): I96 - GANGRENE, NOT ELSEWHERE CLASSIFIED (3) ASHD (arteriosclerotic heart disease) Code(s): I25.10 - ATHSCL HEART DISEASE OF [place] CORONARY ARTERY W/O ANG PCTRS (4) COPD (chronic obstructive pulmonary disease) Code(s): J44.9 - CHRONIC OBSTRUCTIVE PULMONARY DISEASE, UNSPECIFIED Qualifiers: COPD type: unspecified COPD (5) Chronic HFrEF (heart failure with reduced ejection fraction) Code(s): I50.22 - CHRONIC SYSTOLIC (CONGESTIVE) HEART FAILURE (6) Diabetes Code(s): E11.9 - TYPE 2 DIABETES MELLITUS WITHOUT COMPLICATIONS Qualifiers: Diabetes mellitus type: type 2 Diabetes mellitus longterm insulin use: without longterm use Diabetes mellitus complication status: with neurologic complications (7) ESRD (end stage renal disease) Code(s): N18.6 - END STAGE RENAL DISEASE (8) HTN (hypertension) Code(s): I10 - ESSENTIAL (PRIMARY) HYPERTENSION Qualifiers: Hypertension type: essential hypertension (9) Hypothyroidism Code(s): E03.9 - HYPOTHYROIDISM, UNSPECIFIED Qualifiers: Hypothyroidism type: unspecified (10) ICD (implantable cardioverter-defibrillator) in place Code(s): Z95.810 - PRESENCE OF AUTOMATIC (IMPLANTABLE) CARDIAC DEFIBRILLATOR (11) Ischemic dilated cardiomyopathy Code(s): I25.5 - ISCHEMIC CARDIOMYOPATHY; I42.0 - DILATED CARDIOMYOPATHY (12) PVD (peripheral vascular disease) Code(s): I73.9 - PERIPHERAL VASCULAR DISEASE, UNSPECIFIED (13) S/P CABG (coronary artery bypass graft) Code(s): Z95.1 - PRESENCE OF AORTOCORONARY BYPASS GRAFT (14) S/P peripheral artery angioplasty with stent placement Code(s): Z95.820 - PERIPHERAL VASCULAR ANGIOPLASTY STATUS W IMPLANTS AND GRAFTS Assessment/Plan 1. Pre-procedure CV evaluation prior to LLE angiogram 2. Chronic Systolic Heart Failure referable to ischemic dilated cardiomyopathy/ severe LV systolic dysfunction 3. CAD post remote MO post CABG angina pectoris 4. Post prophylactic ICD implant (Medtronic's device) 5. HTN 6. IDDM 7. Hypercholesterolemia 8. PAD with persistent left toe gangrene despite h/o aortogram, LLE angiogram, SFA atherectomy, DCB SFA angioplasty, with sfa stent 9. ESRD on HD, right AVG with steal and hyperkalemia s/p right arm angiogram and DRIL procedure 10. Anemia of CKD 11. Hypothyroidism 12. History of GI bleed PLAN: 1. HD per nephrology, empiric abx 2. Continue Toprol XL 150 qd 3. Continue Entresto 24/26 bid - monitor electrolytes 4. Continue ASA 81 qd and Plavix 75 qd 5. Continue Lipitor 80 qhs 6. DVT and GI prophylaxis 7. 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 Thank you for consultative opportunity
--- NOTE | 2018-06-14 12:50 | PN ---
Progress Note, Physician Chief Complaint: has pain in left foot toe spoke with Dr oliver -- recommended angiogram - Current Medication List Current Medications: Active Medications Acetaminophen (Tylenol -) 650 mg PO Q4H PRN PRN Reason: PAIN 1-3 Albuterol Sulfate (Ventolin 0.083% Nebulizer Soln -) 1 amp NEB Q8H PRN PRN Reason: Dyspnea Aspirin (Asa -) 81 mg PO DAILY [facility] Last Admin: 06/14/18 10:41 Dose: 81 mg Atorvastatin Calcium (Lipitor -) 80 mg PO HS [facility] Clopidogrel Bisulfate (Plavix -) 75 mg PO DAILY [facility] Last Admin: 06/14/18 10:42 Dose: 75 mg Heparin Sodium (Porcine) (Heparin -) 5,000 unit SQ BID [facility] Last Admin: 06/14/18 10:52 Dose: 5,000 unit Heparin Sodium (Porcine) (Heparin -) 1,000 unit IVPUSH ONCE ONE Stop: 06/14/18 10:47 Heparin Sodium (Porcine) (Heparin -) 500 unit IVPUSH Q1H [facility] Stop: 06/14/18 13:01 Sodium Chloride (Normal Saline -) 250 mls @ 3,000 mls/hr IV PRN PRN PRN Reason: Hypotension during Dialysis Stop: 06/15/18 10:46 Levothyroxine Sodium (Synthroid -) 25 mcg PO DAILY@0700 [facility] Last Admin: 06/14/18 07:00 Dose: 25 mcg Metoprolol Succinate (Toprol Xl -) 150 mg PO DAILY [facility] Last Admin: 06/14/18 10:49 Dose: 150 mg Pantoprazole Sodium (Protonix -) 40 mg PO DAILY [facility] Last Admin: 06/14/18 10:50 Dose: 40 mg Paricalcitol (Zemplar -) 2 mcg IVPUSH ONCE ONE Stop: 06/14/18 10:47 Sacubitril/Valsartan (Entresto 24 Mg-26 Mg Tablet) 1 tab PO BID [facility] Last Admin: 06/14/18 10:51 Dose: 1 tab Senna (Senna -) 1 tab PO HS [facility] - Objective Vital Signs: Vital Signs Temperature 98.7 F 06/14/18 03:03 Pulse Rate 80 06/14/18 03:03 Respiratory Rate 20 06/14/18 03:03 Blood Pressure 150/63 06/14/18 03:03 O2 Sat by Pulse Oximetry (%) 95 06/14/18 01:49 Constitutional: Yes: No Distress, Calm Cardiovascular: Yes: Regular Rate and Rhythm, Murmur Respiratory: Yes: Diminished Gastrointestinal: Yes: Normal Bowel Sounds, Soft. No: Tenderness Edema: No Labs: CBC, BMP 06/14/18 07:10 06/14/18 07:10 INR, PTT INR 1.03 (0.83-1.09) 06/14/18 07:10 Problem List - Problems (1) Gangrene Code(s): I96 - GANGRENE, NOT ELSEWHERE CLASSIFIED (2) Infection of toe Code(s): L08.9 - LOCAL INFECTION OF THE SKIN AND SUBCUTANEOUS TISSUE, UNSP (3) ASHD (arteriosclerotic heart disease) Code(s): I25.10 - ATHSCL HEART DISEASE OF [place] CORONARY ARTERY W/O ANG PCTRS (4) Anemia Code(s): D64.9 - ANEMIA, UNSPECIFIED (5) CHF (congestive heart failure), NYHA class IV Code(s): I50.9 - HEART FAILURE, UNSPECIFIED Qualifiers: Congestive heart failure type: systolic Congestive heart failure chronicity : chronic Qualified Code(s): I50.22 - Chronic systolic (congestive) heart failure Assessment/Plan PLAN ESRD on HD CHF HTN gangrene toe- left -- CHF stable -- iv antibiotics -- Angiogram tomorrow- being cleared by Cardiology- spoke with Dr nuñez -- pain control
--- NOTE | 2018-06-14 13:43 | EKG ---
Test Reason : Blood Pressure : / mmHG Vent. Rate : 080 BPM Atrial Rate : 087 BPM P-R Int : 226 ms QRS Dur : 092 ms QT Int : 428 ms P-R-T Axes : 079 -06 104 degrees QTc Int : 493 ms POOR DATA QUALITY, INTERPRETATION MAY BE ADVERSELY AFFECTED Atrial-paced rhythm with prolonged AV conduction MINIMAL VOLTAGE CRITERIA FOR LVH, MAY BE NORMAL VARIANT NONSPECIFIC ST AND T WAVE ABNORMALITY PROLONGED QT ABNORMAL ECG WHEN COMPARED WITH ECG OF 21-APR-2018 09:25, T WAVE AMPLITUDE HAS INCREASED IN ANTERIOR LEADS Confirmed by MARY GONZALEZ MD ([id number]) on 06/14/2018 1:43:50 PM Referred By: Confirmed By:MARY GONZALEZ MD
[2018-06-14] MEDS ORDERED: HEPARIN NA (PORCINE) 5,000 UNITS/ML 1ML VIAL IVPUSH ONE (14:45)
[2018-06-14] MEDS ORDERED: PARICALCITOL 5 MCG/ML VIAL IVPUSH ONE (14:45)
--- NOTE | 2018-06-14 14:48 | PN ---
Progress Note (short form) - Note Progress Note: Vascular Surgery left great toe gangrene. S/P angioplasty back in february. Pt now comes in with pain and cellulitis of foot. On antibiotics. Will need angiogram of left lower extremity NPO past midnight. Pt cleared from a cardiology standpoint. Will do nitish afternoon. Robel oliver DO
--- NOTE | 2018-06-14 15:02 | PN ---
Progress Note (short form) - Note Progress Note: ID consult dictated imp/reccd 72 year old amador with esrd/hd repports gangrenous toe for several months, s/p angioplasty with improvement in pain and swellling now 2 day history of worsening pain and erythema of the foot no fevers cellulitis gagrenouse first toe PAD esrd/hd vanco zosyn this am f/u vanco level continue zosyn for angiogram in am Problem List - Problems (1) Cellulitis Code(s): L03.90 - CELLULITIS, UNSPECIFIED (2) Gangrene Code(s): I96 - GANGRENE, NOT ELSEWHERE CLASSIFIED (3) PVD (peripheral vascular disease) Code(s): I73.9 - PERIPHERAL VASCULAR DISEASE, UNSPECIFIED (4) ESRD (end stage renal disease) on dialysis Code(s): N18.6 - END STAGE RENAL DISEASE; Z99.2 - DEPENDENCE ON RENAL DIALYSIS
--- NOTE | 2018-06-14 15:30 | CONS ---
DATE OF CONSULTATION: DATE OF DICTATION: 06/14/2018 INFECTIOUS DISEASE CONSULTATION REQUESTING PHYSICIAN: Moshe Nur M.D. CONSULTING PHYSICIAN: Juliana Khoury M.D. HISTORY OF PRESENT ILLNESS: This is a 72-year-old man with a history of end-stage renal disease who has been on dialysis for several years. He has a history of peripheral vascular disease who reports he has had gangrene of his toe for several months. He underwent angioplasty and stent with reported improvement in his foot, and then over the last 2 days he has had increasing pain and erythema of the foot and his daughter noted it was getting worse, and he was brought to the emergency room from the correction. PAST MEDICAL HISTORY: Notable for end-stage renal disease, on dialysis. He has a history of CHF, coronary artery disease, peripheral vascular disease, hypertension, COPD. SURGICAL HISTORY: Notable for CABG. He has a permanent pacemaker in place, and he has had angioplasty with stents. FAMILY HISTORY: Noncontributory. ALLERGIES: He is allergic to GABAPENTIN. MEDICATION: As an outpatient includes aspirin, atorvastatin, calcium, Plavix, insulin, Synthroid, metoprolol, pantoprazole, senna, Zoloft, and melatonin. SOCIAL HISTORY: There is no history of cigarette or substance use. He is residing in a correction. REVIEW OF SYSTEMS: Notable for he has noted increasing erythema and pain of the left foot, all over the last 2 days he has had no fevers or chills. PHYSICAL EXAMINATION: VITAL SIGNS: He is afebrile, temperature 98.7, pulse of 80, blood pressure 145/62, respiratory rate 18. He weighs 65 kg. HEENT: Normocephalic. Eyes are anicteric. NECK: Supple. LUNGS: Clear to auscultation. HEART: Regular rate and rhythm. ABDOMEN: Soft, nontender. EXTREMITIES: Notable for a dry gangrene his big toe on his left foot is shrinking, associated with it at the base it appears he may have an abscess, somewhat foul smelling. He has diffuse erythema of the forefoot. LABORATORY: Notable for white count on admission of 11.1, today 8.7, hemoglobin 10.2, platelets of 213. BUN and creatinine are 42 and 6.3. LFTs notable for alkaline phosphatase of 146, lactic acid was 3.1 on repeat 1.5. Urinalysis is negative. Cultures are pending. X-ray of the toe showed gangrene. Chest x-ray shows prominent markings, no acute process. IMPRESSION: In summary, this is a 72-year-old man with cellulitis, dry gangrene, peripheral vascular disease, end-stage renal disease. He has been seen by the surgeon, is scheduled for angiogram tomorrow. Would continue vancomycin by levels and continue Zosyn at this time. Further recommendations to follow. Alec [id number]
--- NOTE | 2018-06-14 16:27 | CONSULT ---
Consult Consult Specialty:: Nephrology Reason for Consultation:: ESRD - History of Present Illness Chief Complaint: left great toe gangrene History of Present Illness: Pt is a 72 year old male with pmhx of ESRD, PVD, CHF, steal syndrome, CAD and CABG who presents to the ER with worsening of his left great toe gangrene. I was called to evaluate him as he is on HD. He is on a TTS schedule. He last dialyzed on Monday. He is due for HD today. He denies fevers or chills. He denies chest pain. He denies pain in the hand of the fistula. - History Source History Provided By: Patient, Medical Record - Past Medical History [employer]: Yes: TIA Cardio/Vascular: Yes: AFIB, CAD, CHF, HTN, Hyperlipdemia, NH, Mitral Insufficiency Gastrointestinal: Yes: GI Bleed Renal/: Yes: Renal Inusuff, Hemodialysis Psych: Yes: Anxiety Endocrine: Yes: Diabetes Mellitus - Past Surgical History Past Surgical History: Yes: AICD, AV Fistula/Graft, CABG - Alcohol/Substance Use Hx Alcohol Use: No - Smoking History Smoking history: Former smoker Have you smoked in the past 12 months: No Aproximately how many cigarettes per day: 5 If you are a former smoker, when did you quit?: 2004 Home Medications - Allergies Allergies/Adverse Reactions: Allergies Allergy/AdvReac Type Severity Reaction Status Date / Time gabapentin [From Neurontin] AdvReac Verified 06/13/18 21:54 - Home Medications Home Medications: Ambulatory Orders Acetaminophen 650 mg PO Q4H PRN 02/28/18 Aspirin [ASA -] 81 mg PO DAILY 02/28/18 Atorvastatin Ca [Lipitor] 80 mg PO HS 02/28/18 Calcium Acetate [Phoslo -] 667 mg PO TIDCM 02/28/18 Clopidogrel Bisulfate [Plavix -] 75 mg PO DAILY 02/28/18 Insulin Glargine,Hum.rec.anlog [Lantus] 16 unit SQ HS 02/28/18 Levothyroxine [Synthroid -] 25 mcg PO DAILY 02/28/18 Metoprolol Succinate [Toprol Xl] 150 mg PO DAILY 02/28/18 Pantoprazole Sodium 40 mg PO DAILY 02/28/18 Sennosides [Senna -] 1 tab PO HS 02/28/18 Sertraline HCl [Zoloft -] 50 mg PO HS 02/28/18 Heparin - 5,000 unit SQ BID #1 vial 03/10/18 Albuterol 0.083% Nebulizer Yessi [Ventolin 0.083% Nebulizer Soln -] 1 amp IN Q8H PRN 03/28/18 Sacubitril/Valsartan [Entresto 49 mg-51 mg Tablet] 1 tab PO BID #60 tablet 04/05 Gabapentin [Neurontin -] 100 mg PO DAILY 04/21/18 Melatonin 3 mg PO HS 04/21/18 Family Disease History - Family Disease History Family History: Denies Review of Systems - Review of Systems Constitutional: reports: Malaise. denies: Chills, Fever Eyes: reports: No Symptoms HENT: reports: No Symptoms Neck: reports: No Symptoms Cardiovascular: reports: No Symptoms Respiratory: reports: No Symptoms Gastrointestinal: reports: No Symptoms Genitourinary: reports: No Symptoms Musculoskeletal: reports: Other (gangrene of left great toe) Integumentary: reports: Erythema Neurological: reports: No Symptoms Endocrine: reports: No Symptoms Hematology/Lymphatic: reports: No Symptoms Psychiatric: reports: No Symptoms Physical Exam Vital Signs: Vital Signs Temperature 98.7 F 06/14/18 13:35 Pulse Rate 80 06/14/18 13:40 Respiratory Rate 18 06/14/18 13:40 Blood Pressure 139/63 06/14/18 13:40 O2 Sat by Pulse Oximetry (%) 95 06/14/18 08:00 Constitutional: Yes: Calm Eyes: Yes: Conjunctiva Clear Cardiovascular: Yes: S1, S2 Respiratory: Yes: CTA Bilaterally Gastrointestinal: Yes: Soft Renal/: Yes: WNL Extremities: Yes: Other (left great toe gangrene) Edema: No Integumentary: Yes: Erythema Neurological: Yes: Oriented Psychiatric: Yes: Oriented Labs: CBC, BMP 06/14/18 07:10 06/14/18 07:10 Laboratory Tests 06/13/18 06/13/18 06/13/18 23:30 23:50 23:50 Hgb 10.9 L Sodium 134 L Potassium Chloride BUN 40 H Creatinine 5.9 H Lactic Acid Urine Protein 3+ H Urine Blood Negative 06/13/18 06/14/18 06/14/18 23:50 01:30 07:10 Hgb 10.2 L Sodium Potassium Chloride BUN Creatinine Lactic Acid 3.1 H* 1.5 Urine Protein Urine Blood 06/14/18 07:10 Hgb Sodium 136 Potassium 4.7 Chloride 97 L BUN 42 H Creatinine 6.3 H Lactic Acid Urine Protein Urine Blood Imaging - Results Chest X-ray: Report Reviewed Problem List - Problems (1) Cellulitis Code(s): L03.90 - CELLULITIS, UNSPECIFIED (2) ESRD (end stage renal disease) on dialysis Code(s): N18.6 - END STAGE RENAL DISEASE; Z99.2 - DEPENDENCE ON RENAL DIALYSIS (3) Gangrene Code(s): I96 - GANGRENE, NOT ELSEWHERE CLASSIFIED (4) COPD (chronic obstructive pulmonary disease) Code(s): J44.9 - CHRONIC OBSTRUCTIVE PULMONARY DISEASE, UNSPECIFIED Qualifiers: COPD type: unspecified COPD Assessment/Plan Current Medications Generic Name Dose Route Start Last Admin Trade Name Freq PRN Reason Stop Dose Admin Acetaminophen 650 mg 06/14/18 05:59 Tylenol - PO Q4H PRN PAIN 1-3 Albuterol Sulfate 1 amp 06/14/18 05:59 Ventolin 0.083% Nebulizer Soln - NEB Q8H PRN Dyspnea Aspirin 81 mg 06/14/18 10:00 06/14/18 10:41 Asa - PO 81 mg DAILY [facility] Administration Atorvastatin Calcium 80 mg 06/14/18 22:00 Lipitor - PO HS [facility] Clopidogrel Bisulfate 75 mg 06/14/18 10:00 06/14/18 10:42 Plavix - PO 75 mg DAILY [facility] Administration Heparin Sodium (Porcine) 5,000 unit 06/14/18 10:00 06/14/18 10:52 Heparin - SQ 5,000 unit BID [facility] Administration Sodium Chloride 250 mls @ 3,000 mls/hr 06/14/18 10:46 Normal Saline - IV 06/15/18 10:46 PRN PRN Hypotension during Dialysis Levothyroxine Sodium 25 mcg 06/14/18 07:00 06/14/18 07:00 Synthroid - PO 25 mcg DAILY@0700 [facility] Administration Metoprolol Succinate 150 mg 06/14/18 10:00 06/14/18 10:49 Toprol Xl - PO 150 mg DAILY [facility] Administration Oxycodone HCl 10 mg 06/14/18 12:55 Roxicodone - PO Q4H PRN PAIN LEVEL 6-10 Pantoprazole Sodium 40 mg 06/14/18 10:00 06/14/18 10:50 Protonix - PO 40 mg DAILY [facility] Administration Sacubitril/Valsartan 1 tab 06/14/18 10:00 06/14/18 10:51 Entresto 24 Mg-26 Mg Tablet PO 1 tab BID [facility] Administration Senna 1 tab 06/14/18 22:00 Senna - PO HS [facility] Impression 1. ESRD 2. toe gangrene 3. DM 4. CAD 5. PVD 6. DFU 7. anemia 8. hx steal syndrome s/p DRIL procedure 9. CHF Plan - HD today - vascular eval - cont wound care to leg - renal diet - ID eval - will follow Dr Dove
[2018-06-14] MEDS: oxyCODONE HCL 5 MG TABLET PO PRN (20:40)
[2018-06-14] MEDS ORDERED: ATORVASTATIN CA 80 MG TABLET (FP) PO SCH (22:00)
[2018-06-14] MEDS ORDERED: SENNOSIDES 8.6MG TABLET (FP) PO SCH (22:00)
[2018-06-15] MEDS: oxyCODONE HCL 5 MG TABLET PO PRN ×3 (01:30→23:41)
[2018-06-15] MEDS: LEVOTHYROXINE NA 25 MCG TABLET (FP) PO SCH (06:04)
[2018-06-15] MEDS ORDERED: DEXTROSE 5%-WATER - 50 ML IVPB ONE (09:19)
[2018-06-15] MEDS ORDERED: PIPERACILLIN/TAZOBACTAM 2.25 GM VIAL IVPB ONE (09:19)
[2018-06-15] MEDS ORDERED: PT OWN MED DRAWER 7, Y5N ONE (09:19)
[2018-06-15] MEDS: PIPERACILLIN/TAZOB 2.25 GM 2.25 GM in DEXTROSE 5%-WATER - 50 ML IVPB SCH ×2 (09:20→18:49)
[2018-06-15] MEDS: PANTOPRAZOLE 40 MG TABLET (FP) PO SCH (09:21)
[2018-06-15] MEDS: SACUBITRIL/VALSARTAN 24 MG-26 MG TABLET PO SCH ×2 (09:22→22:03)
[2018-06-15] MEDS: ASPIRIN 81 MG CHEWABLE TABLETS PO SCH (09:26)
[2018-06-15] MEDS: CLOPIDOGREL BISULFATE 75 MG TABLET (FP) PO SCH (09:27)
[2018-06-15] MEDS: HEPARIN NA (PORCINE) 5,000 UNITS/ML 1ML VIAL SQ SCH ×2 (09:27→22:03)
[2018-06-15] MEDS ORDERED: VANCOMYCIN 1 GM PREMIX - 1 GM/200 ML BAG IVPB ONE (10:00)
--- NOTE | 2018-06-15 11:31 | PN ---
Progress Note (short form) - Note Progress Note: Pt seen/ examined comfortable no complains denies pain. Vital Signs Temp 98.9 F 06/15/18 09:00 Pulse 82 06/15/18 09:00 Resp 20 06/15/18 09:00 BP 136/60 06/15/18 09:00 Pulse Ox 95 06/14/18 21:00 Intake & Output 06/14/18 06/14/18 06/15/18 11:59 23:59 11:59 Intake Total 320 Output Total 0 180 Balance 320 -180 Weight 145 lb 7 oz 143 lb 8 oz Intake: Oral 320 Output: Urine 0 180 Void 0 180 Other: Voiding Method Urinal Urinal Urinal Bowel Movement No No # Bowel Movements 0 Height 5 ft 9 in Body Mass Index (BMI) 21.5 Weight Measurement Method Built in Bedscale Built in Bedscale Active Medications Acetaminophen (Tylenol -) 650 mg PO Q4H PRN PRN Reason: PAIN 1-3 Albuterol Sulfate (Ventolin 0.083% Nebulizer Soln -) 1 amp NEB Q8H PRN PRN Reason: Dyspnea Aspirin (Asa -) 81 mg PO DAILY [facility] Last Admin: 06/15/18 09:26 Dose: Not Given Atorvastatin Calcium (Lipitor -) 80 mg PO [facility] Last Admin: 06/14/18 21:46 Dose: 80 mg Clopidogrel Bisulfate (Plavix -) 75 mg PO DAILY [facility] Last Admin: 06/15/18 09:27 Dose: Not Given Heparin Sodium (Porcine) (Heparin -) 5,000 unit SQ BID [facility] Last Admin: 06/15/18 09:27 Dose: Not Given Piperacillin Sod/Tazobactam (Sod 2.25 gm/ Dextrose) 50 mls @ 100 mls/hr IVPB Q8H-IV [facility]; Protocol Last Admin: 06/15/18 09:20 Dose: 100 mls/hr Vancomycin HCl (Vancomycin 1 Gm Premix -) 1 gm in 200 mls @ 133.333 mls/hr IVPB ONCE ONE; Protocol Stop: 06/15/18 11:29 Last Admin: 06/15/18 10:30 Dose: 133.333 mls/hr Insulin Detemir (Levemir Vial) 8 units SQ [facility] Levothyroxine Sodium (Synthroid -) 25 mcg PO DAILY@0700 [facility] Last Admin: 06/15/18 06:04 Dose: 25 mcg Metoprolol Succinate (Toprol Xl -) 150 mg PO DAILY [facility] Last Admin: 06/15/18 09:21 Dose: 150 mg Oxycodone HCl (Roxicodone -) 10 mg PO Q4H PRN PRN Reason: PAIN LEVEL 6-10 Last Admin: 06/15/18 05:46 Dose: 10 mg Pantoprazole Sodium (Protonix -) 40 mg PO DAILY [facility] Last Admin: 06/15/18 09:21 Dose: 40 mg Sacubitril/Valsartan (Entresto 24 Mg-26 Mg Tablet) 1 tab PO BID [facility] Last Admin: 06/15/18 09:22 Dose: 1 tab Senna (Senna -) 1 tab PO HS [facility] Last Admin: 06/14/18 21:46 Dose: 1 tab CBC, BMP 06/14/18 07:10 06/14/18 07:10 Microbiology 06/14/18 07:00 Gram Stain - Final Toe - Left Hallux Wound Culture - Preliminary Diphtheroid/Corynebacterium Pending Organism 06/13/18 23:30 Urine Culture - Final Urine - Urine Clean Catch NO GROWTH OBTAINED 06/13/18 23:30 Blood Culture - Preliminary Blood - Peripheral Venous Pending Organism 06/13/18 23:30 Blood Culture - Preliminary Blood - Peripheral Venous NO GROWTH OBTAINED AFTER 24 HOURS, INCUBATION TO CONTINUE FOR 4 DAYS. bgm reviewed Physical Exam. Constitutional: Yes: No Distress, Calm. comfortable Cardiovascular: Yes: Regular Rate and Rhythm, Murmur Respiratory: Yes: Diminished at bases Gastrointestinal: Yes: Normal Bowel Sounds, Soft. No: Tenderness Edema: No Problem List - Problems (1) Gangrene Code(s): I96 - GANGRENE, NOT ELSEWHERE CLASSIFIED (2) Infection of toe Code(s): L08.9 - LOCAL INFECTION OF THE SKIN AND SUBCUTANEOUS TISSUE, UNSP (3) ASHD (arteriosclerotic heart disease) Code(s): I25.10 - ATHSCL HEART DISEASE OF [place] CORONARY ARTERY W/O ANG PCTRS (4) Anemia Code(s): D64.9 - ANEMIA, UNSPECIFIED (5) CHF (congestive heart failure), NYHA class IV Code(s): I50.9 - HEART FAILURE, UNSPECIFIED Qualifiers: Congestive heart failure type: systolic Congestive heart failure chronicity : chronic Qualified Code(s): I50.22 - Chronic systolic (congestive) heart failure Assessment/Plan PLAN ESRD on HD CHF HTN gangrene toe- left -- CHF stable -- iv antibiotics -- Angiogram today -- will follow
--- NOTE | 2018-06-15 11:34 | PN ---
Progress Note, Physician History of Present Illness: Await E angiogram for gangrene of left great toe. Regarding cardiovascular symptoms, patient denies chest pain, dyspnea, palpitations, near or true syncope , orthopnea, PND or LE edema. - Current Medication List Current Medications: Active Medications Acetaminophen (Tylenol -) 650 mg PO Q4H PRN PRN Reason: PAIN 1-3 Albuterol Sulfate (Ventolin 0.083% Nebulizer Soln -) 1 amp NEB Q8H PRN PRN Reason: Dyspnea Aspirin (Asa -) 81 mg PO DAILY [facility] Last Admin: 06/15/18 09:26 Dose: Not Given Atorvastatin Calcium (Lipitor -) 80 mg PO HS [facility] Last Admin: 06/14/18 21:46 Dose: 80 mg Clopidogrel Bisulfate (Plavix -) 75 mg PO DAILY [facility] Last Admin: 06/15/18 09:27 Dose: Not Given Heparin Sodium (Porcine) (Heparin -) 5,000 unit SQ BID [facility] Last Admin: 06/15/18 09:27 Dose: Not Given Piperacillin Sod/Tazobactam (Sod 2.25 gm/ Dextrose) 50 mls @ 100 mls/hr IVPB Q8H-IV [facility]; Protocol Last Admin: 06/15/18 09:20 Dose: 100 mls/hr Vancomycin HCl (Vancomycin 1 Gm Premix -) 1 gm in 200 mls @ 133.333 mls/hr IVPB ONCE ONE; Protocol Stop: 06/15/18 11:29 Last Admin: 06/15/18 10:30 Dose: 133.333 mls/hr Insulin Detemir (Levemir Vial) 8 units SQ [facility] Levothyroxine Sodium (Synthroid -) 25 mcg PO DAILY@0700 [facility] Last Admin: 06/15/18 06:04 Dose: 25 mcg Metoprolol Succinate (Toprol Xl -) 150 mg PO DAILY [facility] Last Admin: 06/15/18 09:21 Dose: 150 mg Oxycodone HCl (Roxicodone -) 10 mg PO Q4H PRN PRN Reason: PAIN LEVEL 6-10 Last Admin: 06/15/18 05:46 Dose: 10 mg Pantoprazole Sodium (Protonix -) 40 mg PO DAILY [facility] Last Admin: 06/15/18 09:21 Dose: 40 mg Sacubitril/Valsartan (Entresto 24 Mg-26 Mg Tablet) 1 tab PO BID [facility] Last Admin: 06/15/18 09:22 Dose: 1 tab Senna (Senna -) 1 tab PO HS [facility] Last Admin: 06/14/18 21:46 Dose: 1 tab - Objective Vital Signs: Vital Signs Temperature 98.9 F 06/15/18 09:00 Pulse Rate 82 06/15/18 09:00 Respiratory Rate 20 06/15/18 09:00 Blood Pressure 136/60 06/15/18 09:00 O2 Sat by Pulse Oximetry (%) 95 06/14/18 21:00 Constitutional: Yes: No Distress, Calm, Thin Neck: Yes: Supple Cardiovascular: Yes: Regular Rate and Rhythm Respiratory: Yes: Regular, CTA Bilaterally Gastrointestinal: Yes: Normal Bowel Sounds, Soft Edema: No Wound/Incision: Yes: Dressing Dry and Intact Labs: CBC, BMP 06/14/18 07:10 06/14/18 07:10 INR, PTT INR 1.03 (0.83-1.09) 06/14/18 07:10 Problem List - Problems (1) Cellulitis and abscess of foot Code(s): L03.119 - CELLULITIS OF UNSPECIFIED PART OF LIMB; L02.619 - CUTANEOUS ABSCESS OF UNSPECIFIED FOOT (2) Gangrene Code(s): I96 - GANGRENE, NOT ELSEWHERE CLASSIFIED (3) ASHD (arteriosclerotic heart disease) Code(s): I25.10 - ATHSCL HEART DISEASE OF [place] CORONARY ARTERY W/O ANG PCTRS (4) COPD (chronic obstructive pulmonary disease) Code(s): J44.9 - CHRONIC OBSTRUCTIVE PULMONARY DISEASE, UNSPECIFIED Qualifiers: COPD type: unspecified COPD Qualified Code(s): J44.9 - Chronic obstructive pulmonary disease, unspecified (5) Chronic HFrEF (heart failure with reduced ejection fraction) Code(s): I50.22 - CHRONIC SYSTOLIC (CONGESTIVE) HEART FAILURE (6) Diabetes Code(s): E11.9 - TYPE 2 DIABETES MELLITUS WITHOUT COMPLICATIONS Qualifiers: Diabetes mellitus type: type 2 Diabetes mellitus snf insulin use: without terminal supervisor use Diabetes mellitus complication status: with neurologic complications (7) ESRD (end stage renal disease) Code(s): N18.6 - END STAGE RENAL DISEASE (8) HTN (hypertension) Code(s): I10 - ESSENTIAL (PRIMARY) HYPERTENSION Qualifiers: Hypertension type: essential hypertension Qualified Code(s): I10 - Essential (primary) hypertension (9) Hypothyroidism Code(s): E03.9 - HYPOTHYROIDISM, UNSPECIFIED Qualifiers: Hypothyroidism type: unspecified Qualified Code(s): E03.9 - Hypothyroidism , unspecified (10) ICD (implantable cardioverter-defibrillator) in place Code(s): Z95.810 - PRESENCE OF AUTOMATIC (IMPLANTABLE) CARDIAC DEFIBRILLATOR (11) Ischemic dilated cardiomyopathy Code(s): I25.5 - ISCHEMIC CARDIOMYOPATHY; I42.0 - DILATED CARDIOMYOPATHY (12) PVD (peripheral vascular disease) Code(s): I73.9 - PERIPHERAL VASCULAR DISEASE, UNSPECIFIED (13) S/P CABG (coronary artery bypass graft) Code(s): Z95.1 - PRESENCE OF AORTOCORONARY BYPASS GRAFT (14) S/P peripheral artery angioplasty with stent placement Code(s): Z95.820 - PERIPHERAL VASCULAR ANGIOPLASTY STATUS W IMPLANTS AND GRAFTS Assessment/Plan 1. Pre-procedure CV evaluation prior to LLE angiogram 2. Chronic Systolic Heart Failure referable to ischemic dilated cardiomyopathy/ severe LV systolic dysfunction 3. CAD post remote [place] post CABG angina pectoris 4. Post prophylactic ICD implant ([employer]'s device) 5. HTN 6. IDDM 7. Hypercholesterolemia 8. PAD with persistent left toe gangrene despite h/o aortogram, LLE angiogram, SFA atherectomy, DCB SFA angioplasty, with sfa stent 9. ESRD on HD, right AVG with steal and hyperkalemia s/p right arm angiogram and DRIL procedure 10. Anemia of CKD 11. Hypothyroidism 12. History of GI bleed PLAN: 1. HD per nephrology, empiric abx per ID 2. Continue Toprol XL 150 qd 3. Continue Entresto 24/26 bid - monitor electrolytes 4. Continue ASA 81 qd and Plavix 75 qd 5. Continue Lipitor 80 qhs 6. DVT and GI prophylaxis 7. Given absence of sxs of acute coronary syndrome, decompensated CHF or malignant arrhythmia, may proceed with LLE angiogram +/- MAINTENANCE CLERK from CV-standpoint without further testing
--- NOTE | 2018-06-15 14:32 | PN ---
Progress Note, Physician History of Present Illness: Pt seen and examined at bedside. He is awake and alert. He is going for an angiogram today. - Current Medication List Current Medications: Active Medications Acetaminophen (Tylenol -) 650 mg PO Q4H PRN PRN Reason: PAIN 1-3 Albuterol Sulfate (Ventolin 0.083% Nebulizer Soln -) 1 amp NEB Q8H PRN PRN Reason: Dyspnea Aspirin (Asa -) 81 mg PO DAILY [facility] Last Admin: 06/15/18 09:26 Dose: Not Given Atorvastatin Calcium (Lipitor -) 80 mg PO HS [facility] Last Admin: 06/14/18 21:46 Dose: 80 mg Clopidogrel Bisulfate (Plavix -) 75 mg PO DAILY [facility] Last Admin: 06/15/18 09:27 Dose: Not Given Heparin Sodium (Porcine) (Heparin -) 5,000 unit SQ BID [facility] Last Admin: 06/15/18 09:27 Dose: Not Given Piperacillin Sod/Tazobactam (Sod 2.25 gm/ Dextrose) 50 mls @ 100 mls/hr IVPB Q8H-IV [facility]; Protocol Last Admin: 06/15/18 09:20 Dose: 100 mls/hr Insulin Detemir (Levemir Vial) 8 units SQ [facility] Levothyroxine Sodium (Synthroid -) 25 mcg PO DAILY@0700 [facility] Last Admin: 06/15/18 06:04 Dose: 25 mcg Metoprolol Succinate (Toprol Xl -) 150 mg PO DAILY [facility] Last Admin: 06/15/18 09:21 Dose: 150 mg Oxycodone HCl (Roxicodone -) 10 mg PO Q4H PRN PRN Reason: PAIN LEVEL 6-10 Last Admin: 06/15/18 05:46 Dose: 10 mg Pantoprazole Sodium (Protonix -) 40 mg PO DAILY [facility] Last Admin: 06/15/18 09:21 Dose: 40 mg Sacubitril/Valsartan (Entresto 24 Mg-26 Mg Tablet) 1 tab PO BID [facility] Last Admin: 06/15/18 09:22 Dose: 1 tab Senna (Senna -) 1 tab PO HS [facility] Last Admin: 06/14/18 21:46 Dose: 1 tab - Objective Vital Signs: Vital Signs Temperature 98.9 F 06/15/18 09:00 Pulse Rate 82 06/15/18 09:00 Respiratory Rate 20 06/15/18 09:00 Blood Pressure 136/60 06/15/18 09:00 O2 Sat by Pulse Oximetry (%) 95 06/14/18 21:00 Constitutional: Yes: Calm Eyes: Yes: Conjunctiva Clear HENT: Yes: Atraumatic Neck: Yes: Supple Cardiovascular: Yes: S1, S2 Respiratory: Yes: CTA Bilaterally Gastrointestinal: Yes: Normal Bowel Sounds, Soft Genitourinary: Yes: WNL Edema: No Wound/Incision: Yes: Dressing Dry and Intact Neurological: Yes: Oriented Psychiatric: Yes: Oriented Labs: CBC, BMP 06/14/18 07:10 06/14/18 07:10 INR, PTT INR 1.03 (0.83-1.09) 06/14/18 07:10 Problem List - Problems (1) Cellulitis Code(s): L03.90 - CELLULITIS, UNSPECIFIED (2) ESRD (end stage renal disease) on dialysis Code(s): N18.6 - END STAGE RENAL DISEASE; Z99.2 - DEPENDENCE ON RENAL DIALYSIS (3) Gangrene Code(s): I96 - GANGRENE, NOT ELSEWHERE CLASSIFIED (4) COPD (chronic obstructive pulmonary disease) Code(s): J44.9 - CHRONIC OBSTRUCTIVE PULMONARY DISEASE, UNSPECIFIED Qualifiers: COPD type: unspecified COPD Qualified Code(s): J44.9 - Chronic obstructive pulmonary disease, unspecified Assessment/Plan Current Medications Generic Name Dose Route Start Last Admin Trade Name Freq PRN Reason Stop Dose Admin Acetaminophen 650 mg 06/14/18 05:59 Tylenol - PO Q4H PRN PAIN 1-3 Albuterol Sulfate 1 amp 06/14/18 05:59 Ventolin 0.083% Nebulizer Soln - NEB Q8H PRN Dyspnea Aspirin 81 mg 06/14/18 10:00 06/15/18 09:26 Asa - PO Not Given DAILY [facility] Atorvastatin Calcium 80 mg 06/14/18 22:00 06/14/18 21:46 Lipitor - PO 80 mg HS [facility] Administration Clopidogrel Bisulfate 75 mg 06/14/18 10:00 06/15/18 09:27 Plavix - PO Not Given DAILY [facility] Heparin Sodium (Porcine) 5,000 unit 06/14/18 10:00 06/15/18 09:27 Heparin - SQ Not Given BID [facility] Piperacillin Sod/Tazobactam 50 mls @ 100 mls/hr 06/15/18 10:00 06/15/18 09:20 Sod 2.25 gm/ Dextrose IVPB 100 mls/hr Q8H-IV [facility] Administration Protocol Insulin Detemir 8 units 06/15/18 22:00 Levemir Vial SQ HS [facility] Levothyroxine Sodium 25 mcg 06/14/18 07:00 06/15/18 06:04 Synthroid - PO 25 mcg DAILY@0700 [facility] Administration Metoprolol Succinate 150 mg 06/14/18 10:00 06/15/18 09:21 Toprol Xl - PO 150 mg DAILY [facility] Administration Oxycodone HCl 10 mg 06/14/18 12:55 06/15/18 05:46 Roxicodone - PO 10 mg Q4H PRN Administration PAIN LEVEL 6-10 Pantoprazole Sodium 40 mg 06/14/18 10:00 06/15/18 09:21 Protonix - PO 40 mg DAILY [facility] Administration Sacubitril/Valsartan 1 tab 06/14/18 10:00 06/15/18 09:22 Entresto 24 Mg-26 Mg Tablet PO 1 tab BID [facility] Administration Senna 1 tab 06/14/18 22:00 06/14/18 21:46 Senna - PO 1 tab HS [facility] Administration Impression 1. ESRD 2. toe gangrene 3. DM 4. CAD 5. PVD 6. DFU 7. anemia 8. hx steal syndrome s/p DRIL procedure 9. CHF Plan - pt going for angiogram today - vascular follow up - HD in am - cont wound care to leg - renal diet - will follow Dr Dove
[2018-06-15] MEDS ORDERED: SODIUM CHLORIDE 250 ML IV PRN ×2 (14:34→18:39)
[2018-06-15] MEDS ORDERED: ONDANSETRON 4 MG/2 ML VIAL IVPUSH PRN ×2 (16:33→18:39)
[2018-06-15] MEDS ORDERED: ceFAZolin SODIUM 1 GM VIAL IVPB ONE (16:50)
[2018-06-15] MEDS ORDERED: SODIUM CHLORIDE 1,000 ML IV SCH (17:30)
--- NOTE | 2018-06-15 17:43 | OP ---
Operative Note - Note: Operative Date: 06/15/18 Pre-Operative Diagnosis: Left great toe gangrene Operation: Aortogram, LLE angiogram Findings: normal angiogram Stents placement Post-Operative Diagnosis: Same as Pre-op Surgeon: Robel Nieves Anesthesia: Fractional Estimated Blood Loss (mls): 20 Operative Report Dictated: Yes
[2018-06-15] MEDS ORDERED: ACETAMINOPHEN 325 MG TABLET (FP) PO PRN (18:39)
[2018-06-15] MEDS ORDERED: ALBUTEROL SO4 0.083% IH SOL 2.5 MG/3 ML VIAL.NEB. NEB PRN (18:39)
[2018-06-15] MEDS: SODIUM CHLORIDE 1,000 ML IV SCH (21:50)
[2018-06-15] MEDS ORDERED: INSULIN (LEVEMIR) 100 UNITS/ML UNITS SQ SCH (22:00)
[2018-06-15] MEDS: ATORVASTATIN CA 80 MG TABLET (FP) PO SCH (22:02)
[2018-06-15] MEDS: INSULIN (LEVEMIR) 100 UNITS/ML UNITS SQ SCH (22:02)
[2018-06-15] MEDS: SENNOSIDES 8.6MG TABLET (FP) PO SCH (22:02)
[2018-06-16] MEDS ORDERED: DEXTROSE 5%-WATER - 50 ML IVPB ONE ×2 (01:13→16:50)
[2018-06-16] MEDS ORDERED: PIPERACILLIN/TAZOBACTAM 2.25 GM VIAL IVPB ONE ×2 (01:13→16:50)
[2018-06-16] MEDS: PIPERACILLIN/TAZOB 2.25 GM 2.25 GM in DEXTROSE 5%-WATER - 50 ML IVPB SCH ×3 (01:26→16:59)
[2018-06-16] MEDS: LEVOTHYROXINE NA 25 MCG TABLET (FP) PO SCH (06:19)
--- NOTE | 2018-06-16 08:47 | PN ---
Progress Note (short form) - Note Progress Note: 1. ESRD 2. toe gangrene 3. DM 4. CAD 5. PVD 6. DFU 7. anemia 8. hx steal syndrome s/p DRIL procedure 9. CHF Current Medications Acetaminophen (Tylenol -) 650 mg PO Q4H PRN PRN Reason: PAIN 1-3 Albuterol Sulfate (Ventolin 0.083% Nebulizer Soln -) 1 amp NEB Q8H PRN PRN Reason: Dyspnea Aspirin (Asa -) 81 mg PO DAILY [facility] Atorvastatin Calcium (Lipitor -) 80 mg PO HS [facility] Last Admin: 06/15/18 22:02 Dose: 80 mg Clopidogrel Bisulfate (Plavix -) 75 mg PO DAILY [facility] Epoetin Parmjit (Epogen -) 4,000 unit IVPUSH ONCE ONE Stop: 06/16/18 14:35 Heparin Sodium (Porcine) (Heparin -) 5,000 unit SQ BID [facility] Last Admin: 06/15/18 22:03 Dose: 5,000 unit Heparin Sodium (Porcine) (Heparin -) 1,000 unit IVPUSH ONCE ONE Stop: 06/16/18 14:35 Sodium Chloride (Normal Saline -) 250 mls @ 3,000 mls/hr IV PRN PRN PRN Reason: Hypotension during Dialysis Stop: 06/16/18 14:35 Sodium Chloride (Normal Saline -) 1,000 mls @ 42 mls/hr IV ASDIR [facility] Last Admin: 06/15/18 21:50 Dose: 42 mls/hr Piperacillin Sod/Tazobactam (Sod 2.25 gm/ Dextrose) 50 mls @ 100 mls/hr IVPB Q8H-IV [facility]; Protocol Last Admin: 06/16/18 01:26 Dose: 100 mls/hr Insulin Detemir (Levemir Vial) 8 units SQ HS [facility] Last Admin: 06/15/18 22:02 Dose: 8 units Levothyroxine Sodium (Synthroid -) 25 mcg PO DAILY@0700 [facility] Last Admin: 06/16/18 06:19 Dose: 25 mcg Metoprolol Succinate (Toprol Xl -) 150 mg PO DAILY [facility] Oxycodone HCl (Roxicodone -) 10 mg PO Q4H PRN PRN Reason: PAIN LEVEL 6-10 Last Admin: 06/15/18 23:41 Dose: 10 mg Pantoprazole Sodium (Protonix -) 40 mg PO DAILY [facility] Sacubitril/Valsartan (Entresto 24 Mg-26 Mg Tablet) 1 tab PO BID [facility] Last Admin: 06/15/18 22:03 Dose: 1 tab Senna (Senna -) 1 tab PO HS [facility] Last Admin: 06/15/18 22:02 Dose: 1 tab seen at start of hemodialysis no complaints Last Vital Signs Temp Pulse Resp BP Pulse Ox 99.6 F 80 20 136/58 97 06/16/18 06:00 06/16/18 06:00 06/16/18 06:00 06/16/18 06:00 06/15/18 21:00 Lungs clear Heart reg Abd soft Ext no edema CBC, BMP 06/14/18 07:10 06/14/18 07:10 IMP- ESRD no fluid overload
[2018-06-16] MEDS ORDERED: EPOETIN ALFA 2,000 UNIT/1 ML VIAL IVPUSH ONE ×2 (09:15→14:34)
[2018-06-16] MEDS ORDERED: HEPARIN NA (PORCINE) 5,000 UNITS/ML 1ML VIAL IVPUSH ONE ×2 (09:15→14:34)
[2018-06-16] MEDS: SACUBITRIL/VALSARTAN 24 MG-26 MG TABLET PO SCH ×3 (09:28→22:23)
[2018-06-16] MEDS: ASPIRIN 81 MG CHEWABLE TABLETS PO SCH ×2 (09:28→16:07)
[2018-06-16] MEDS: CLOPIDOGREL BISULFATE 75 MG TABLET (FP) PO SCH ×2 (09:28→16:07)
[2018-06-16] MEDS: HEPARIN NA (PORCINE) 5,000 UNITS/ML 1ML VIAL SQ SCH ×2 (09:28→22:24)
[2018-06-16] MEDS: PANTOPRAZOLE 40 MG TABLET (FP) PO SCH ×2 (09:29→16:07)
--- NOTE | 2018-06-16 10:41 | PN ---
Progress Note (short form) - Note Progress Note: s/p angiogram,angioplasty and stent no distress pt examined in HD Vital Signs - 24 hr 06/15/18 06/15/18 06/15/18 17:32 17:45 18:00 Temperature 98.5 F Pulse Rate 80 80 80 Respiratory 14 18 18 Rate Blood Pressure 142/55 130/56 127/60 O2 Sat by Pulse 98 98 100 Oximetry (%) 06/15/18 06/15/18 06/15/18 18:15 18:30 18:45 Temperature Pulse Rate 80 80 80 Respiratory 18 18 18 Rate Blood Pressure 140/50 141/53 141/55 O2 Sat by Pulse 100 100 100 Oximetry (%) 06/15/18 06/15/18 06/15/18 19:00 19:15 19:30 Temperature 98.1 F Pulse Rate 80 80 80 Respiratory 18 18 18 Rate Blood Pressure 141/53 143/54 143/55 O2 Sat by Pulse 100 98 98 Oximetry (%) 06/15/18 06/15/18 06/16/18 20:45 21:00 02:00 Temperature 98.6 F 98.2 F 99.2 F Pulse Rate 80 79 86 Respiratory 18 20 20 Rate Blood Pressure 146/60 129/53 142/56 O2 Sat by Pulse 97 97 Oximetry (%) 06/16/18 06/16/18 06/16/18 06:00 08:50 08:55 Temperature 99.6 F 99 F Pulse Rate 80 81 80 Respiratory 20 18 18 Rate Blood Pressure 136/58 125/52 133/52 O2 Sat by Pulse Oximetry (%) 06/16/18 06/16/18 06/16/18 09:25 09:55 10:25 Temperature Pulse Rate 85 79 82 Respiratory 18 18 18 Rate Blood Pressure 148/82 154/88 139/61 O2 Sat by Pulse Oximetry (%) 06/16/18 06/16/18 06/16/18 10:55 11:25 11:55 Temperature Pulse Rate 80 80 85 Respiratory 18 18 18 Rate Blood Pressure 158/111 135/95 145/73 O2 Sat by Pulse Oximetry (%) 06/16/18 06/16/18 12:25 12:35 Temperature 98.8 F Pulse Rate 88 81 Respiratory 18 18 Rate Blood Pressure 131/88 141/66 O2 Sat by Pulse Oximetry (%) Current Medications Generic Name Dose Route Start Last Admin Trade Name Freq PRN Reason Stop Dose Admin Acetaminophen 650 mg 06/15/18 18:39 Tylenol - PO Q4H PRN PAIN 1-3 Albuterol Sulfate 1 amp 06/15/18 18:39 Ventolin 0.083% Nebulizer Soln - NEB Q8H PRN Dyspnea Aspirin 81 mg 06/16/18 10:00 06/16/18 09:28 Asa - PO Not Given DAILY [facility] Atorvastatin Calcium 80 mg 06/15/18 22:00 06/15/18 22:02 Lipitor - PO 80 mg HS [facility] Administration Clopidogrel Bisulfate 75 mg 06/16/18 10:00 06/16/18 09:28 Plavix - PO Not Given DAILY [facility] Heparin Sodium (Porcine) 5,000 unit 06/15/18 22:00 06/16/18 09:28 Heparin - SQ Not Given BID [facility] Sodium Chloride 1,000 mls @ 42 mls/hr 06/15/18 18:39 06/15/18 21:50 Normal Saline - IV 42 mls/hr ASDIR [facility] Administration Piperacillin Sod/Tazobactam 50 mls @ 100 mls/hr 06/16/18 02:00 06/16/18 09:30 Sod 2.25 gm/ Dextrose IVPB Not Given Q8H-IV [facility] Protocol Insulin Detemir 8 units 06/15/18 22:00 06/15/18 22:02 Levemir Vial SQ 8 units HS [facility] Administration Levothyroxine Sodium 25 mcg 06/16/18 07:00 06/16/18 06:19 Synthroid - PO 25 mcg DAILY@0700 [facility] Administration Metoprolol Succinate 150 mg 06/16/18 10:00 06/16/18 09:30 Toprol Xl - PO Not Given DAILY [facility] Oxycodone HCl 10 mg 06/15/18 18:39 06/15/18 23:41 Roxicodone - PO 10 mg Q4H PRN Administration PAIN LEVEL 6-10 Pantoprazole Sodium 40 mg 06/16/18 10:00 06/16/18 09:29 Protonix - PO Not Given DAILY [facility] Sacubitril/Valsartan 1 tab 06/15/18 22:00 06/16/18 09:28 Entresto 24 Mg-26 Mg Tablet PO Not Given BID [facility] Senna 1 tab 06/15/18 22:00 06/15/18 22:02 Senna - PO 1 tab HS [facility] Administration Laboratory Results - last 24 hr 06/15/18 06/16/18 06/16/18 22:00 06:48 11:30 POC Glucometer 251 75 Random Vancomycin 11.53 S1 S2 RRR Lungs decreased Abd- soft, NT no edema Dressing in foot A/P IV antibiotics HD per renal pain control Problem List - Problems (1) Gangrene Code(s): I96 - GANGRENE, NOT ELSEWHERE CLASSIFIED (2) Infection of toe Code(s): L08.9 - LOCAL INFECTION OF THE SKIN AND SUBCUTANEOUS TISSUE, UNSP (3) ASHD (arteriosclerotic heart disease) Code(s): I25.10 - ATHSCL HEART DISEASE OF [place] CORONARY ARTERY W/O ANG PCTRS (4) Anemia Code(s): D64.9 - ANEMIA, UNSPECIFIED (5) CHF (congestive heart failure), NYHA class IV Code(s): I50.9 - HEART FAILURE, UNSPECIFIED Qualifiers: Congestive heart failure type: systolic Congestive heart failure chronicity : chronic Qualified Code(s): I50.22 - Chronic systolic (congestive) heart failure
--- NOTE | 2018-06-16 11:11 | PN ---
Progress Note (short form) - Note Progress Note: s/p angiogram yesterday on HD now foot less tender per patient Vital Signs Period Temp Pulse Resp BP Sys/Lopez Pulse Ox Last 24 Hr 98.1 F-99.6 F 79-86 14-20 125-150/50-82 97-100 cor-rrr llungs clear foot less erythema, dry gangrene toe unchanged CBC, BMP 06/14/18 07:10 06/14/18 07:10 Microbiology 06/13/18 23:30 Blood - Peripheral Venous Blood Culture - Preliminary Staphylococcus Coagulase Neg 06/13/18 23:30 Blood - Peripheral Venous Blood Culture - Preliminary NO GROWTH OBTAINED AFTER 48 HOURS, INCUBATION TO CONTINUE FOR 3 DAYS. 06/14/18 07:00 Toe - Left Hallux Gram Stain - Final 06/14/18 07:00 Toe - Left Hallux Wound Culture - Preliminary Diphtheroid/Corynebacterium Pending Organism 06/13/18 23:30 Urine - Urine Clean Catch Urine Culture - Final NO GROWTH OBTAINED a/p bacteremia- contaminant cellulitis gagrenous first toe PAD esrd/hd redose vancomycin based on level- ordered today continue zosyn f/u with surgery Problem List - Problems (1) Cellulitis Code(s): L03.90 - CELLULITIS, UNSPECIFIED (2) Gangrene Code(s): I96 - GANGRENE, NOT ELSEWHERE CLASSIFIED (3) PVD (peripheral vascular disease) Code(s): I73.9 - PERIPHERAL VASCULAR DISEASE, UNSPECIFIED (4) ESRD (end stage renal disease) on dialysis Code(s): N18.6 - END STAGE RENAL DISEASE; Z99.2 - DEPENDENCE ON RENAL DIALYSIS
--- NOTE | 2018-06-16 12:27 | PN ---
Progress Note, Physician Chief Complaint: Events noted. Angiogram op note seen. Being dialyzed History of Present Illness: Patient was seen and examined. Awake and alert. Chart was reviewed Denies chest pain, SOB or palpitations - Current Medication List Current Medications: Active Medications Acetaminophen (Tylenol -) 650 mg PO Q4H PRN PRN Reason: PAIN 1-3 Albuterol Sulfate (Ventolin 0.083% Nebulizer Soln -) 1 amp NEB Q8H PRN PRN Reason: Dyspnea Aspirin (Asa -) 81 mg PO DAILY [facility] Last Admin: 06/16/18 09:28 Dose: Not Given Atorvastatin Calcium (Lipitor -) 80 mg PO HS [facility] Last Admin: 06/15/18 22:02 Dose: 80 mg Clopidogrel Bisulfate (Plavix -) 75 mg PO DAILY [facility] Last Admin: 06/16/18 09:28 Dose: Not Given Heparin Sodium (Porcine) (Heparin -) 5,000 unit SQ BID [facility] Last Admin: 06/16/18 09:28 Dose: Not Given Sodium Chloride (Normal Saline -) 250 mls @ 3,000 mls/hr IV PRN PRN PRN Reason: Hypotension during Dialysis Stop: 06/16/18 14:35 Sodium Chloride (Normal Saline -) 1,000 mls @ 42 mls/hr IV ASDIR [facility] Last Admin: 06/15/18 21:50 Dose: 42 mls/hr Piperacillin Sod/Tazobactam (Sod 2.25 gm/ Dextrose) 50 mls @ 100 mls/hr IVPB Q8H-IV [facility]; Protocol Last Admin: 06/16/18 09:30 Dose: Not Given Insulin Detemir (Levemir Vial) 8 units SQ HS [facility] Last Admin: 06/15/18 22:02 Dose: 8 units Levothyroxine Sodium (Synthroid -) 25 mcg PO DAILY@0700 [facility] Last Admin: 06/16/18 06:19 Dose: 25 mcg Metoprolol Succinate (Toprol Xl -) 150 mg PO DAILY [facility] Last Admin: 06/16/18 09:30 Dose: Not Given Oxycodone HCl (Roxicodone -) 10 mg PO Q4H PRN PRN Reason: PAIN LEVEL 6-10 Last Admin: 06/15/18 23:41 Dose: 10 mg Pantoprazole Sodium (Protonix -) 40 mg PO DAILY [facility] Last Admin: 06/16/18 09:29 Dose: Not Given Sacubitril/Valsartan (Entresto 24 Mg-26 Mg Tablet) 1 tab PO BID [facility] Last Admin: 06/16/18 09:28 Dose: Not Given Senna (Senna -) 1 tab PO HS [facility] Last Admin: 06/15/18 22:02 Dose: 1 tab - Objective Vital Signs: Vital Signs Temperature 99 F 06/16/18 08:50 Pulse Rate 80 06/16/18 11:25 Respiratory Rate 18 06/16/18 11:25 Blood Pressure 135/95 06/16/18 11:25 O2 Sat by Pulse Oximetry (%) 97 06/15/18 21:00 Neck: Yes: Supple Cardiovascular: Yes: Regular Rate and Rhythm, S1, S2 Respiratory: Yes: CTA Bilaterally Gastrointestinal: Yes: Normal Bowel Sounds, Soft. No: Tenderness Edema: No Labs: CBC, BMP 06/14/18 07:10 06/14/18 07:10 INR, PTT INR 1.03 (0.83-1.09) 06/14/18 07:10 Problem List - Problems (1) ESRD (end stage renal disease) on dialysis Code(s): N18.6 - END STAGE RENAL DISEASE; Z99.2 - DEPENDENCE ON RENAL DIALYSIS (2) Gangrene Code(s): I96 - GANGRENE, NOT ELSEWHERE CLASSIFIED (3) Infection of toe Code(s): L08.9 - LOCAL INFECTION OF THE SKIN AND SUBCUTANEOUS TISSUE, UNSP (4) ASHD (arteriosclerotic heart disease) Code(s): I25.10 - ATHSCL HEART DISEASE OF [place] CORONARY ARTERY W/O ANG PCTRS (5) Anemia Code(s): D64.9 - ANEMIA, UNSPECIFIED (6) CHF (congestive heart failure), NYHA class IV Code(s): I50.9 - HEART FAILURE, UNSPECIFIED Qualifiers: Congestive heart failure type: systolic Congestive heart failure chronicity : chronic Qualified Code(s): I50.22 - Chronic systolic (congestive) heart failure (7) COPD (chronic obstructive pulmonary disease) Code(s): J44.9 - CHRONIC OBSTRUCTIVE PULMONARY DISEASE, UNSPECIFIED Qualifiers: COPD type: unspecified COPD Qualified Code(s): J44.9 - Chronic obstructive pulmonary disease, unspecified (8) Chronic HFrEF (heart failure with reduced ejection fraction) Code(s): I50.22 - CHRONIC SYSTOLIC (CONGESTIVE) HEART FAILURE (9) Diabetes Code(s): E11.9 - TYPE 2 DIABETES MELLITUS WITHOUT COMPLICATIONS Qualifiers: Diabetes mellitus type: type 2 Diabetes mellitus 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 insulin 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 Diabetes mellitus complication status: with neurologic complications (10) ESRD (end stage renal disease) Code(s): N18.6 - END STAGE RENAL DISEASE (11) HTN (hypertension) Code(s): I10 - ESSENTIAL (PRIMARY) HYPERTENSION Qualifiers: Hypertension type: essential hypertension Qualified Code(s): I10 - Essential (primary) hypertension (12) Hypothyroidism Code(s): E03.9 - HYPOTHYROIDISM, UNSPECIFIED Qualifiers: Hypothyroidism type: unspecified Qualified Code(s): E03.9 - Hypothyroidism , unspecified (13) ICD (implantable cardioverter-defibrillator) in place Code(s): Z95.810 - PRESENCE OF AUTOMATIC (IMPLANTABLE) CARDIAC DEFIBRILLATOR (14) Ischemic dilated cardiomyopathy Code(s): I25.5 - ISCHEMIC CARDIOMYOPATHY; I42.0 - DILATED CARDIOMYOPATHY (15) PVD (peripheral vascular disease) Code(s): I73.9 - PERIPHERAL VASCULAR DISEASE, UNSPECIFIED (16) S/P CABG (coronary artery bypass graft) Code(s): Z95.1 - PRESENCE OF AORTOCORONARY BYPASS GRAFT (17) S/P peripheral artery angioplasty with stent placement Code(s): Z95.820 - PERIPHERAL VASCULAR ANGIOPLASTY STATUS W IMPLANTS AND GRAFTS Assessment/Plan 1. LLE angiogram s/p stent 2. Chronic Systolic Heart Failure referable to ischemic dilated cardiomyopathy/ severe LV systolic dysfunction 3. CAD post remote [place] post CABG angina pectoris 4. Post prophylactic ICD implant ([employer]tr[employer]'s device) 5. HTN 6. IDDM 7. Hypercholesterolemia 8. PAD with persistent left toe gangrene despite h/o aortogram, LLE angiogram, SFA atherectomy, DCB SFA angioplasty, with sfa stent 9. ESRD on HD, right AVG with steal and hyperkalemia s/p right arm angiogram and DRIL procedure 10. Anemia of CKD 11. Hypothyroidism 12. History of GI bleed PLAN: 1. HD per nephrology, empiric antibiotic per ID 2. Continue Toprol XL 150 qd 3. Continue Entresto 24/26 bid - monitor electrolytes 4. Continue ASA 81 qd and Plavix 75 qd 5. Continue Lipitor 80 qhs 6. DVT and GI prophylaxis 7. Vascular follow up Jarocho Taylor MD
[2018-06-16] MEDS ORDERED: PT OWN MED DRAWER 7, Y5N ONE ×2 (15:54→22:12)
[2018-06-16] MEDS: oxyCODONE HCL 5 MG TABLET PO PRN (16:07)
--- NOTE | 2018-06-16 17:00 | PN ---
Progress Note (short form) - Note Progress Note: Anesthesia post op note, POD#1 S/P LLE angiogram.. VSS. No apparent post anesthesia complications. Signed off.
[2018-06-16] MEDS: SODIUM CHLORIDE 1,000 ML IV SCH (18:33)
[2018-06-16] MEDS: SENNOSIDES 8.6MG TABLET (FP) PO SCH (22:23)
[2018-06-16] MEDS: ATORVASTATIN CA 80 MG TABLET (FP) PO SCH (22:23)
[2018-06-16] MEDS: INSULIN (LEVEMIR) 100 UNITS/ML UNITS SQ SCH (22:24)
[2018-06-17] MEDS ORDERED: PIPERACILLIN/TAZOBACTAM 2.25 GM VIAL IVPB ONE ×3 (02:34→17:10)
[2018-06-17] MEDS ORDERED: DEXTROSE 5%-WATER - 50 ML IVPB ONE ×3 (02:34→17:10)
[2018-06-17] MEDS: PIPERACILLIN/TAZOB 2.25 GM 2.25 GM in DEXTROSE 5%-WATER - 50 ML IVPB SCH ×3 (02:39→17:11)
[2018-06-17] MEDS: LEVOTHYROXINE NA 25 MCG TABLET (FP) PO SCH (06:12)
[2018-06-17] MEDS ORDERED: PT OWN MED DRAWER 7, Y5N ONE (09:27)
[2018-06-17] MEDS: CLOPIDOGREL BISULFATE 75 MG TABLET (FP) PO SCH (09:32)
[2018-06-17] MEDS: PANTOPRAZOLE 40 MG TABLET (FP) PO SCH (09:32)
[2018-06-17] MEDS: SACUBITRIL/VALSARTAN 24 MG-26 MG TABLET PO SCH ×2 (09:32→22:06)
[2018-06-17] MEDS: HEPARIN NA (PORCINE) 5,000 UNITS/ML 1ML VIAL SQ SCH ×2 (09:32→22:06)
[2018-06-17] MEDS: ASPIRIN 81 MG CHEWABLE TABLETS PO SCH (09:32)
--- NOTE | 2018-06-17 10:38 | PN ---
Progress Note, Physician Chief Complaint: Events noted. Not in distress History of Present Illness: Patient was seen and examined. Awake and alert. Chart was reviewed Denies chest pain, SOB or palpitations - Current Medication List Current Medications: Active Medications Acetaminophen (Tylenol -) 650 mg PO Q4H PRN PRN Reason: PAIN 1-3 Albuterol Sulfate (Ventolin 0.083% Nebulizer Soln -) 1 amp NEB Q8H PRN PRN Reason: Dyspnea Aspirin (Asa -) 81 mg PO DAILY [facility] Last Admin: 06/17/18 09:32 Dose: 81 mg Atorvastatin Calcium (Lipitor -) 80 mg PO HS [facility] Last Admin: 06/16/18 22:23 Dose: 80 mg Clopidogrel Bisulfate (Plavix -) 75 mg PO DAILY [facility] Last Admin: 06/17/18 09:32 Dose: 75 mg Heparin Sodium (Porcine) (Heparin -) 5,000 unit SQ BID [facility] Last Admin: 06/17/18 09:32 Dose: 5,000 unit Sodium Chloride (Normal Saline -) 1,000 mls @ 42 mls/hr IV ASDIR [facility] Last Admin: 06/16/18 18:33 Dose: 42 mls/hr Piperacillin Sod/Tazobactam (Sod 2.25 gm/ Dextrose) 50 mls @ 100 mls/hr IVPB Q8H-IV [facility]; Protocol Last Admin: 06/17/18 09:33 Dose: 100 mls/hr Insulin Detemir (Levemir Vial) 8 units SQ HS [facility] Last Admin: 06/16/18 22:24 Dose: 8 units Levothyroxine Sodium (Synthroid -) 25 mcg PO DAILY@0700 [facility] Last Admin: 06/17/18 06:12 Dose: 25 mcg Metoprolol Succinate (Toprol Xl -) 150 mg PO DAILY [facility] Last Admin: 06/17/18 09:32 Dose: 150 mg Oxycodone HCl (Roxicodone -) 10 mg PO Q4H PRN PRN Reason: PAIN LEVEL 6-10 Last Admin: 06/16/18 16:07 Dose: 10 mg Pantoprazole Sodium (Protonix -) 40 mg PO DAILY [facility] Last Admin: 06/17/18 09:32 Dose: 40 mg Sacubitril/Valsartan (Entresto 24 Mg-26 Mg Tablet) 1 tab PO BID [facility] Last Admin: 06/17/18 09:32 Dose: 1 tab Senna (Senna -) 1 tab PO HS [facility] Last Admin: 06/16/18 22:23 Dose: 1 tab - Objective Vital Signs: Vital Signs Temperature 99.9 F H 06/17/18 06:00 Pulse Rate 80 06/17/18 06:00 Respiratory Rate 20 06/17/18 06:00 Blood Pressure 145/76 06/17/18 06:00 O2 Sat by Pulse Oximetry (%) 97 06/16/18 21:00 Neck: Yes: Supple Cardiovascular: Yes: Regular Rate and Rhythm, S1, S2 Respiratory: Yes: CTA Bilaterally Gastrointestinal: Yes: Normal Bowel Sounds, Soft. No: Tenderness Edema: No Labs: Problem List - Problems (1) ESRD (end stage renal disease) on dialysis Code(s): N18.6 - END STAGE RENAL DISEASE; Z99.2 - DEPENDENCE ON RENAL DIALYSIS (2) Gangrene Code(s): I96 - GANGRENE, NOT ELSEWHERE CLASSIFIED (3) Infection of toe Code(s): L08.9 - LOCAL INFECTION OF THE SKIN AND SUBCUTANEOUS TISSUE, UNSP (4) ASHD (arteriosclerotic heart disease) Code(s): I25.10 - ATHSCL HEART DISEASE OF [place] CORONARY ARTERY W/O ANG PCTRS (5) Anemia Code(s): D64.9 - ANEMIA, UNSPECIFIED (6) CHF (congestive heart failure), NYHA class IV Code(s): I50.9 - HEART FAILURE, UNSPECIFIED Qualifiers: Congestive heart failure type: systolic Congestive heart failure chronicity : chronic Qualified Code(s): I50.22 - Chronic systolic (congestive) heart failure (7) COPD (chronic obstructive pulmonary disease) Code(s): J44.9 - CHRONIC OBSTRUCTIVE PULMONARY DISEASE, UNSPECIFIED Qualifiers: COPD type: unspecified COPD Qualified Code(s): J44.9 - Chronic obstructive pulmonary disease, unspecified (8) Chronic HFrEF (heart failure with reduced ejection fraction) Code(s): I50.22 - CHRONIC SYSTOLIC (CONGESTIVE) HEART FAILURE (9) Diabetes Code(s): E11.9 - TYPE 2 DIABETES MELLITUS WITHOUT COMPLICATIONS Qualifiers: Diabetes mellitus type: type 2 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 Diabetes mellitus complication status: with neurologic complications (10) ESRD (end stage renal disease) Code(s): N18.6 - END STAGE RENAL DISEASE (11) HTN (hypertension) Code(s): I10 - ESSENTIAL (PRIMARY) HYPERTENSION Qualifiers: Hypertension type: essential hypertension Qualified Code(s): I10 - Essential (primary) hypertension (12) Hypothyroidism Code(s): E03.9 - HYPOTHYROIDISM, UNSPECIFIED Qualifiers: Hypothyroidism type: unspecified Qualified Code(s): E03.9 - Hypothyroidism , unspecified (13) ICD (implantable cardioverter-defibrillator) in place Code(s): Z95.810 - PRESENCE OF AUTOMATIC (IMPLANTABLE) CARDIAC DEFIBRILLATOR (14) Ischemic dilated cardiomyopathy Code(s): I25.5 - ISCHEMIC CARDIOMYOPATHY; I42.0 - DILATED CARDIOMYOPATHY (15) PVD (peripheral vascular disease) Code(s): I73.9 - PERIPHERAL VASCULAR DISEASE, UNSPECIFIED (16) S/P CABG (coronary artery bypass graft) Code(s): Z95.1 - PRESENCE OF AORTOCORONARY BYPASS GRAFT (17) S/P peripheral artery angioplasty with stent placement Code(s): Z95.820 - PERIPHERAL VASCULAR ANGIOPLASTY STATUS W IMPLANTS AND GRAFTS Assessment/Plan 1. LLE angiogram s/p stent 2. Chronic Systolic Heart Failure referable to ischemic dilated cardiomyopathy/ severe LV systolic dysfunction 3. CAD post remote [place] post CABG angina pectoris 4. Post prophylactic ICD implant ([employer]tr[employer]'s device) 5. HTN 6. IDDM 7. Hypercholesterolemia 8. PAD with persistent left toe gangrene despite h/o aortogram, LLE angiogram, SFA atherectomy, DCB SFA angioplasty, with sfa stent 9. ESRD on HD, right AVG with steal and hyperkalemia s/p right arm angiogram and DRIL procedure 10. Anemia of CKD 11. Hypothyroidism 12. History of GI bleed PLAN: 1. HD per nephrology 2. Empiric antibiotic per ID 3. Continue Toprol XL 150 qd 4. Continue Entresto 24/26 bid - monitor electrolytes 5. Continue ASA 81 qd and Plavix 75 qd 6. Continue Lipitor 80 qhs 7. DVT and GI prophylaxis 8. Vascular follow up 9. Wound care Jarocho Taylor MD
--- NOTE | 2018-06-17 11:03 | PN ---
Progress Note (short form) - Note Progress Note: s/p angiogram,angioplasty and stent no distress no pain in left big toe Vital Signs - 24 hr 06/16/18 06/16/18 06/17/18 21:00 22:00 06:00 Temperature 98.3 F 99.9 F H Pulse Rate 84 80 Respiratory 20 20 20 Rate Blood Pressure 128/82 145/76 O2 Sat by Pulse 97 Oximetry (%) 06/17/18 06/17/18 08:00 14:00 Temperature 98.1 F 98.7 F Pulse Rate 85 Respiratory 20 Rate Blood Pressure 154/65 O2 Sat by Pulse 97 Oximetry (%) Current Medications Generic Name Dose Route Start Last Admin Trade Name Freq PRN Reason Stop Dose Admin Acetaminophen 650 mg 06/15/18 18:39 Tylenol - PO Q4H PRN PAIN 1-3 Albuterol Sulfate 1 amp 06/15/18 18:39 Ventolin 0.083% Nebulizer Soln - NEB Q8H PRN Dyspnea Aspirin 81 mg 06/16/18 10:00 06/17/18 09:32 Asa - PO 81 mg DAILY [facility] Administration Atorvastatin Calcium 80 mg 06/15/18 22:00 06/16/18 22:23 Lipitor - PO 80 mg HS [facility] Administration Clopidogrel Bisulfate 75 mg 06/16/18 10:00 06/17/18 09:32 Plavix - PO 75 mg DAILY [facility] Administration Heparin Sodium (Porcine) 5,000 unit 06/15/18 22:00 06/17/18 09:32 Heparin - SQ 5,000 unit BID [facility] Administration Piperacillin Sod/Tazobactam 50 mls @ 100 mls/hr 06/16/18 02:00 06/17/18 09:33 Sod 2.25 gm/ Dextrose IVPB 100 mls/hr Q8H-IV [facility] Administration Protocol Insulin Detemir 8 units 06/15/18 22:00 06/16/18 22:24 Levemir Vial SQ 8 units HS [facility] Administration Levothyroxine Sodium 25 mcg 06/16/18 07:00 06/17/18 06:12 Synthroid - PO 25 mcg DAILY@0700 [facility] Administration Metoprolol Succinate 150 mg 06/16/18 10:00 06/17/18 09:32 Toprol Xl - PO 150 mg DAILY [facility] Administration Oxycodone HCl 10 mg 06/15/18 18:39 06/16/18 16:07 Roxicodone - PO 10 mg Q4H PRN Administration PAIN LEVEL 6-10 Pantoprazole Sodium 40 mg 06/16/18 10:00 06/17/18 09:32 Protonix - PO 40 mg DAILY [facility] Administration Sacubitril/Valsartan 1 tab 06/15/18 22:00 06/17/18 09:32 Entresto 24 Mg-26 Mg Tablet PO 1 tab BID [facility] Administration Senna 1 tab 06/15/18 22:00 06/16/18 22:23 Senna - PO 1 tab HS [facility] Administration Laboratory Results - last 24 hr 06/16/18 06/17/18 22:21 06:12 POC Glucometer 228 107 S1 S2 RRR Lungs decreased Abd- soft, NT no edema left big toe -- gangrene, base is erythema+ A/P IV antibiotics HD per renal pain control Problem List - Problems (1) Gangrene Code(s): I96 - GANGRENE, NOT ELSEWHERE CLASSIFIED (2) Infection of toe Code(s): L08.9 - LOCAL INFECTION OF THE SKIN AND SUBCUTANEOUS TISSUE, UNSP (3) ASHD (arteriosclerotic heart disease) Code(s): I25.10 - ATHSCL HEART DISEASE OF [place] CORONARY ARTERY W/O ANG PCTRS (4) Anemia Code(s): D64.9 - ANEMIA, UNSPECIFIED (5) CHF (congestive heart failure), NYHA class IV Code(s): I50.9 - HEART FAILURE, UNSPECIFIED Qualifiers: Congestive heart failure type: systolic Congestive heart failure chronicity : chronic Qualified Code(s): I50.22 - Chronic systolic (congestive) heart failure
[2018-06-17] MEDS ORDERED: VANCOMYCIN 1,000 MG in DEXTROSE 5%-WATER - 250 ML IVPB ONE (11:09)
--- NOTE | 2018-06-17 11:09 | PN ---
Progress Note (short form) - Note Progress Note: s/p angiogram and stent placement 06/15 Vital Signs Period Temp Pulse Resp BP Sys/Lopez Pulse Ox Last 24 Hr 98.0 F-99.9 F 80-88 18-20 116-145/66-95 97 cor-rrr lungs clear abd soft,nt ext less erythema of the dorsum of the foot toe with dry gangrene at the tip, base is gangrenous and foulsmelling CBC, BMP 06/14/18 07:10 06/14/18 07:10 Microbiology 06/14/18 07:00 Toe - Left Hallux Gram Stain - Final 06/14/18 07:00 Toe - Left Hallux Wound Culture - Final Diphtheroid/Corynebacterium Proteus Mirabilis 06/13/18 23:30 Blood - Peripheral Venous Blood Culture - Final Staphylococcus Epidermidis 06/13/18 23:30 Blood - Peripheral Venous Blood Culture - Preliminary NO GROWTH OBTAINED AFTER 72 HOURS, INCUBATION TO CONTINUE FOR 2 DAYS. 06/13/18 23:30 Urine - Urine Clean Catch Urine Culture - Final NO GROWTH OBTAINED a/p bacteremia- contaminant cellulitis gagrenous first toe PAD esrd/hd continue zosyn vanco today f/u surgery Problem List - Problems (1) Cellulitis Code(s): L03.90 - CELLULITIS, UNSPECIFIED (2) Gangrene Code(s): I96 - GANGRENE, NOT ELSEWHERE CLASSIFIED (3) PVD (peripheral vascular disease) Code(s): I73.9 - PERIPHERAL VASCULAR DISEASE, UNSPECIFIED (4) ESRD (end stage renal disease) on dialysis Code(s): N18.6 - END STAGE RENAL DISEASE; Z99.2 - DEPENDENCE ON RENAL DIALYSIS
--- NOTE | 2018-06-17 15:37 | PN ---
Progress Note (short form) - Note Progress Note: 1. ESRD 2. toe gangrene 3. DM 4. CAD 5. PVD 6. DFU 7. anemia 8. hx steal syndrome s/p DRIL procedure 9. CHF Current Medications Acetaminophen (Tylenol -) 650 mg PO Q4H PRN PRN Reason: PAIN 1-3 Albuterol Sulfate (Ventolin 0.083% Nebulizer Soln -) 1 amp NEB Q8H PRN PRN Reason: Dyspnea Aspirin (Asa -) 81 mg PO DAILY [facility] Last Admin: 06/17/18 09:32 Dose: 81 mg Atorvastatin Calcium (Lipitor -) 80 mg PO [facility] Last Admin: 06/16/18 22:23 Dose: 80 mg Clopidogrel Bisulfate (Plavix -) 75 mg PO DAILY [facility] Last Admin: 06/17/18 09:32 Dose: 75 mg Heparin Sodium (Porcine) (Heparin -) 5,000 unit SQ BID [facility] Last Admin: 06/17/18 09:32 Dose: 5,000 unit Piperacillin Sod/Tazobactam (Sod 2.25 gm/ Dextrose) 50 mls @ 100 mls/hr IVPB Q8H-IV [facility]; Protocol Last Admin: 06/17/18 09:33 Dose: 100 mls/hr Insulin Detemir (Levemir Vial) 8 units SQ [facility] Last Admin: 06/16/18 22:24 Dose: 8 units Levothyroxine Sodium (Synthroid -) 25 mcg PO DAILY@0700 [facility] Last Admin: 06/17/18 06:12 Dose: 25 mcg Metoprolol Succinate (Toprol Xl -) 150 mg PO DAILY [facility] Last Admin: 06/17/18 09:32 Dose: 150 mg Oxycodone HCl (Roxicodone -) 10 mg PO Q4H PRN PRN Reason: PAIN LEVEL 6-10 Last Admin: 06/16/18 16:07 Dose: 10 mg Pantoprazole Sodium (Protonix -) 40 mg PO DAILY [facility] Last Admin: 06/17/18 09:32 Dose: 40 mg Sacubitril/Valsartan (Entresto 24 Mg-26 Mg Tablet) 1 tab PO BID [facility] Last Admin: 06/17/18 09:32 Dose: 1 tab Senna (Senna -) 1 tab PO [facility] Last Admin: 06/16/18 22:23 Dose: 1 tab seen at start of hemodialysis no complaints Last Vital Signs Temp Pulse Resp BP Pulse Ox 98.7 F 85 20 154/65 97 06/17/18 14:00 06/17/18 08:00 06/17/18 08:00 06/17/18 08:00 06/17/18 08:00 Lungs clear Heart reg Abd soft Ext no edema CBC, BMP 06/14/18 07:10 06/14/18 07:10 IMP- ESRD no fluid overload HD monday
[2018-06-17] MEDS: SENNOSIDES 8.6MG TABLET (FP) PO SCH (22:06)
[2018-06-17] MEDS: ATORVASTATIN CA 80 MG TABLET (FP) PO SCH (22:06)
[2018-06-17] MEDS: INSULIN (LEVEMIR) 100 UNITS/ML UNITS SQ SCH (22:07)
[2018-06-18] MEDS ORDERED: DEXTROSE 5%-WATER - 50 ML IVPB ONE ×3 (01:17→17:07)
[2018-06-18] MEDS ORDERED: PIPERACILLIN/TAZOBACTAM 2.25 GM VIAL IVPB ONE ×3 (01:17→17:07)
[2018-06-18] MEDS: PIPERACILLIN/TAZOB 2.25 GM 2.25 GM in DEXTROSE 5%-WATER - 50 ML IVPB SCH ×3 (01:35→17:12)
[2018-06-18] MEDS: LEVOTHYROXINE NA 25 MCG TABLET (FP) PO SCH (06:01)
[2018-06-18] MEDS: oxyCODONE HCL 5 MG TABLET PO PRN ×2 (06:02→21:07)
[2018-06-18] MEDS ORDERED: PT OWN MED DRAWER 7, Y5N ONE ×2 (10:14→21:02)
[2018-06-18] MEDS: ASPIRIN 81 MG CHEWABLE TABLETS PO SCH (10:18)
[2018-06-18] MEDS: CLOPIDOGREL BISULFATE 75 MG TABLET (FP) PO SCH (10:18)
[2018-06-18] MEDS: PANTOPRAZOLE 40 MG TABLET (FP) PO SCH (10:18)
[2018-06-18] MEDS: SACUBITRIL/VALSARTAN 24 MG-26 MG TABLET PO SCH ×2 (10:19→21:08)
[2018-06-18] MEDS: HEPARIN NA (PORCINE) 5,000 UNITS/ML 1ML VIAL SQ SCH ×2 (10:19→21:08)
--- NOTE | 2018-06-18 10:38 | PN ---
Progress Note (short form) - Note Progress Note: pt seen/ examined . chart reviewed. comfortble says pain ok afebrile s/p angiogram with Stent Placement-- 06/15 Vital Signs Temp 99.1 F 06/18/18 05:18 Pulse 82 06/18/18 05:18 Resp 20 06/18/18 05:18 BP 118/65 06/18/18 05:18 Pulse Ox 97 06/17/18 20:19 Intake & Output 06/17/18 06/17/18 06/18/18 11:59 23:59 11:59 Intake Total 734 Output Total 500 200 Balance 234 -200 Weight 144 lb 6 oz 145 lb Intake: IV 84 Normal Saline - 1,000 ml 84 @ 42 mls/hr IV ASDIR [facility] Rx#:[id number] IVPB 350 Oral 300 Output: Urine 500 200 Void 500 200 Other: Voiding Method Urinal Toilet # Unmeasured Voids Void 0 Bowel Movement No No # Bowel Movements 0 Weight Measurement Method Built in Bedscale Built in Bedscale Active Medications Acetaminophen (Tylenol -) 650 mg PO Q4H PRN PRN Reason: PAIN 1-3 Albuterol Sulfate (Ventolin 0.083% Nebulizer Soln -) 1 amp NEB Q8H PRN PRN Reason: Dyspnea Aspirin (Asa -) 81 mg PO DAILY [facility] Last Admin: 06/18/18 10:18 Dose: 81 mg Atorvastatin Calcium (Lipitor -) 80 mg PO HS [facility] Last Admin: 06/17/18 22:06 Dose: 80 mg Clopidogrel Bisulfate (Plavix -) 75 mg PO DAILY [facility] Last Admin: 06/18/18 10:18 Dose: 75 mg Heparin Sodium (Porcine) (Heparin -) 5,000 unit SQ BID [facility] Last Admin: 06/18/18 10:19 Dose: 5,000 unit Piperacillin Sod/Tazobactam (Sod 2.25 gm/ Dextrose) 50 mls @ 100 mls/hr IVPB Q8H-IV [facility]; Protocol Last Admin: 06/18/18 10:17 Dose: 100 mls/hr Insulin Detemir (Levemir Vial) 8 units SQ HS [facility] Last Admin: 06/17/18 22:07 Dose: 8 units Levothyroxine Sodium (Synthroid -) 25 mcg PO DAILY@0700 [facility] Last Admin: 06/18/18 06:01 Dose: 25 mcg Metoprolol Succinate (Toprol Xl -) 150 mg PO DAILY [facility] Last Admin: 06/18/18 10:18 Dose: 150 mg Oxycodone HCl (Roxicodone -) 10 mg PO Q4H PRN PRN Reason: PAIN LEVEL 6-10 Last Admin: 06/18/18 06:02 Dose: 10 mg Pantoprazole Sodium (Protonix -) 40 mg PO DAILY [facility] Last Admin: 06/18/18 10:18 Dose: 40 mg Sacubitril/Valsartan (Entresto 24 Mg-26 Mg Tablet) 1 tab PO BID [facility] Last Admin: 06/18/18 10:19 Dose: 1 tab Senna (Senna -) 1 tab PO HS [facility] Last Admin: 06/17/18 22:06 Dose: 1 tab CBC, BMP 06/14/18 07:10 06/14/18 07:10 Microbiology 06/13/18 23:30 Blood Culture - Preliminary Blood - Peripheral Venous NO GROWTH OBTAINED AFTER 96 HOURS, INCUBATION TO CONTINUE FOR 1 DAYS. 06/14/18 07:00 Gram Stain - Final Toe - Left Hallux Wound Culture - Final Diphtheroid/Corynebacterium Proteus Mirabilis 06/13/18 23:30 Blood Culture - Final Blood - Peripheral Venous Staphylococcus Epidermidis Physical Exam. Awake/ comfortable S1 S2 RRR Lungs decreased at bases Abd- soft, NT no edema left big toe -- gangrenous/ foul smelling . A/P IV antibiotics meds reviewed continue present care abx HD per renal pain under control. surgery to follow will follow Problem List - Problems (1) Cellulitis Code(s): L03.90 - CELLULITIS, UNSPECIFIED (2) Gangrene Code(s): I96 - GANGRENE, NOT ELSEWHERE CLASSIFIED (3) PVD (peripheral vascular disease) Code(s): I73.9 - PERIPHERAL VASCULAR DISEASE, UNSPECIFIED (4) ESRD (end stage renal disease) on dialysis Code(s): N18.6 - END STAGE RENAL DISEASE; Z99.2 - DEPENDENCE ON RENAL DIALYSIS
--- NOTE | 2018-06-18 12:29 | PN ---
Progress Note, Physician History of Present Illness: Patient underwent LLE angiogram for gangrene of left great toe without sequelae. Regarding cardiovascular symptoms, patient denies chest pain, dyspnea , palpitations, near or true syncope, orthopnea, PND or LE edema. - Current Medication List Current Medications: Active Medications Acetaminophen (Tylenol -) 650 mg PO Q4H PRN PRN Reason: PAIN 1-3 Albuterol Sulfate (Ventolin 0.083% Nebulizer Soln -) 1 amp NEB Q8H PRN PRN Reason: Dyspnea Aspirin (Asa -) 81 mg PO DAILY [facility] Last Admin: 06/18/18 10:18 Dose: 81 mg Atorvastatin Calcium (Lipitor -) 80 mg PO HS [facility] Last Admin: 06/17/18 22:06 Dose: 80 mg Clopidogrel Bisulfate (Plavix -) 75 mg PO DAILY [facility] Last Admin: 06/18/18 10:18 Dose: 75 mg Heparin Sodium (Porcine) (Heparin -) 5,000 unit SQ BID [facility] Last Admin: 06/18/18 10:19 Dose: 5,000 unit Piperacillin Sod/Tazobactam (Sod 2.25 gm/ Dextrose) 50 mls @ 100 mls/hr IVPB Q8H-IV [facility]; Protocol Last Admin: 06/18/18 10:17 Dose: 100 mls/hr Insulin Detemir (Levemir Vial) 8 units SQ [facility] Last Admin: 06/17/18 22:07 Dose: 8 units Levothyroxine Sodium (Synthroid -) 25 mcg PO DAILY@0700 [facility] Last Admin: 06/18/18 06:01 Dose: 25 mcg Metoprolol Succinate (Toprol Xl -) 150 mg PO DAILY [facility] Last Admin: 06/18/18 10:18 Dose: 150 mg Oxycodone HCl (Roxicodone -) 10 mg PO Q4H PRN PRN Reason: PAIN LEVEL 6-10 Last Admin: 06/18/18 06:02 Dose: 10 mg Pantoprazole Sodium (Protonix -) 40 mg PO DAILY [facility] Last Admin: 06/18/18 10:18 Dose: 40 mg Sacubitril/Valsartan (Entresto 24 Mg-26 Mg Tablet) 1 tab PO BID [facility] Last Admin: 06/18/18 10:19 Dose: 1 tab Senna (Senna -) 1 tab PO [facility] Last Admin: 06/17/18 22:06 Dose: 1 tab - Objective Vital Signs: Vital Signs Temperature 99.1 F 06/18/18 05:18 Pulse Rate 82 06/18/18 05:18 Respiratory Rate 20 06/18/18 05:18 Blood Pressure 118/65 06/18/18 05:18 O2 Sat by Pulse Oximetry (%) 97 06/17/18 20:19 Constitutional: Yes: No Distress, Calm, Thin Neck: Yes: Supple Cardiovascular: Yes: Regular Rate and Rhythm Respiratory: Yes: Regular, Diminished Gastrointestinal: Yes: Normal Bowel Sounds, Soft Edema: No Labs: CBC, BMP 06/14/18 07:10 06/14/18 07:10 INR, PTT INR 1.03 (0.83-1.09) 06/14/18 07:10 Problem List - Problems (1) Cellulitis and abscess of foot Code(s): L03.119 - CELLULITIS OF UNSPECIFIED PART OF LIMB; L02.619 - CUTANEOUS ABSCESS OF UNSPECIFIED FOOT (2) Gangrene Code(s): I96 - GANGRENE, NOT ELSEWHERE CLASSIFIED (3) ASHD (arteriosclerotic heart disease) Code(s): I25.10 - ATHSCL HEART DISEASE OF [place] CORONARY ARTERY W/O ANG PCTRS (4) COPD (chronic obstructive pulmonary disease) Code(s): J44.9 - CHRONIC OBSTRUCTIVE PULMONARY DISEASE, UNSPECIFIED Qualifiers: COPD type: unspecified COPD Qualified Code(s): J44.9 - Chronic obstructive pulmonary disease, unspecified (5) Chronic HFrEF (heart failure with reduced ejection fraction) Code(s): I50.22 - CHRONIC SYSTOLIC (CONGESTIVE) HEART FAILURE (6) Diabetes Code(s): E11.9 - TYPE 2 DIABETES MELLITUS WITHOUT COMPLICATIONS Qualifiers: Diabetes mellitus type: type 2 Diabetes mellitus meterman insulin use: without group home use Diabetes mellitus complication status: with neurologic complications (7) ESRD (end stage renal disease) Code(s): N18.6 - END STAGE RENAL DISEASE (8) HTN (hypertension) Code(s): I10 - ESSENTIAL (PRIMARY) HYPERTENSION Qualifiers: Hypertension type: essential hypertension Qualified Code(s): I10 - Essential (primary) hypertension (9) Hypothyroidism Code(s): E03.9 - HYPOTHYROIDISM, UNSPECIFIED Qualifiers: Hypothyroidism type: unspecified Qualified Code(s): E03.9 - Hypothyroidism , unspecified (10) ICD (implantable cardioverter-defibrillator) in place Code(s): Z95.810 - PRESENCE OF AUTOMATIC (IMPLANTABLE) CARDIAC DEFIBRILLATOR (11) Ischemic dilated cardiomyopathy Code(s): I25.5 - ISCHEMIC CARDIOMYOPATHY; I42.0 - DILATED CARDIOMYOPATHY (12) PVD (peripheral vascular disease) Code(s): I73.9 - PERIPHERAL VASCULAR DISEASE, UNSPECIFIED (13) S/P CABG (coronary artery bypass graft) Code(s): Z95.1 - PRESENCE OF AORTOCORONARY BYPASS GRAFT (14) S/P peripheral artery angioplasty with stent placement Code(s): Z95.820 - PERIPHERAL VASCULAR ANGIOPLASTY STATUS W IMPLANTS AND GRAFTS Assessment/Plan 1. s/p LLE angiogram s/p stent 2. Chronic Systolic Heart Failure referable to ischemic dilated cardiomyopathy/ severe LV systolic dysfunction 3. CAD post remote DE post CABG angina pectoris 4. Post prophylactic ICD implant ([employer]'s device) 5. HTN 6. IDDM 7. Hypercholesterolemia 8. PAD with persistent left toe gangrene despite h/o aortogram, LLE angiogram, SFA atherectomy, DCB SFA angioplasty, with sfa stent 9. ESRD on HD, right AVG with steal and hyperkalemia s/p right arm angiogram and DRIL procedure 10. Anemia of CKD 11. Hypothyroidism 12. History of GI bleed PLAN: 1. HD per nephrology, empiric abx per ID 2. Continue Toprol XL 150 qd 3. Continue Entresto 24/26 bid - monitor electrolytes 4. Continue ASA 81 qd and Plavix 75 qd 5. Continue Lipitor 80 qhs 6. DVT and GI prophylaxis 7. Vascular follow up and wound care
[2018-06-18 14:09] LABS: HBSAG SCREEN Negative (Negative); HEP A AB, IGM Negative (Negative); HEP B CORE AB, TOT Negative (Negative)
--- NOTE | 2018-06-18 14:22 | PN ---
Progress Note, Physician History of Present Illness: Pt seen and examined at bedside. He is awake and alert. - Current Medication List Current Medications: Active Medications Acetaminophen (Tylenol -) 650 mg PO Q4H PRN PRN Reason: PAIN 1-3 Albuterol Sulfate (Ventolin 0.083% Nebulizer Soln -) 1 amp NEB Q8H PRN PRN Reason: Dyspnea Aspirin (Asa -) 81 mg PO DAILY [facility] Last Admin: 06/18/18 10:18 Dose: 81 mg Atorvastatin Calcium (Lipitor -) 80 mg PO HS [facility] Last Admin: 06/17/18 22:06 Dose: 80 mg Clopidogrel Bisulfate (Plavix -) 75 mg PO DAILY [facility] Last Admin: 06/18/18 10:18 Dose: 75 mg Heparin Sodium (Porcine) (Heparin -) 5,000 unit SQ BID [facility] Last Admin: 06/18/18 10:19 Dose: 5,000 unit Piperacillin Sod/Tazobactam (Sod 2.25 gm/ Dextrose) 50 mls @ 100 mls/hr IVPB Q8H-IV [facility]; Protocol Last Admin: 06/18/18 10:17 Dose: 100 mls/hr Insulin Detemir (Levemir Vial) 8 units SQ [facility] Last Admin: 06/17/18 22:07 Dose: 8 units Levothyroxine Sodium (Synthroid -) 25 mcg PO DAILY@0700 [facility] Last Admin: 06/18/18 06:01 Dose: 25 mcg Metoprolol Succinate (Toprol Xl -) 150 mg PO DAILY [facility] Last Admin: 06/18/18 10:18 Dose: 150 mg Oxycodone HCl (Roxicodone -) 10 mg PO Q4H PRN PRN Reason: PAIN LEVEL 6-10 Last Admin: 06/18/18 06:02 Dose: 10 mg Pantoprazole Sodium (Protonix -) 40 mg PO DAILY [facility] Last Admin: 06/18/18 10:18 Dose: 40 mg Sacubitril/Valsartan (Entresto 24 Mg-26 Mg Tablet) 1 tab PO BID [facility] Last Admin: 06/18/18 10:19 Dose: 1 tab Senna (Senna -) 1 tab PO [facility] Last Admin: 06/17/18 22:06 Dose: 1 tab - Objective Vital Signs: Vital Signs Temperature 99.1 F 09/10/18 05:18 Pulse Rate 82 06/18/18 05:18 Respiratory Rate 20 06/18/18 05:18 Blood Pressure 118/65 06/18/18 05:18 O2 Sat by Pulse Oximetry (%) 97 06/17/18 20:19 Constitutional: Yes: Calm Eyes: Yes: Conjunctiva Clear HENT: Yes: Atraumatic Cardiovascular: Yes: S1, S2 Respiratory: Yes: CTA Bilaterally Gastrointestinal: Yes: Soft Genitourinary: Yes: WNL Musculoskeletal: Yes: Other (toe gangrene) Edema: No Neurological: Yes: Oriented Psychiatric: Yes: Oriented Labs: CBC, BMP 06/14/18 07:10 06/14/18 07:10 INR, PTT INR 1.03 (0.83-1.09) 06/14/18 07:10 Problem List - Problems (1) Cellulitis Code(s): L03.90 - CELLULITIS, UNSPECIFIED (2) ESRD (end stage renal disease) on dialysis Code(s): N18.6 - END STAGE RENAL DISEASE; Z99.2 - DEPENDENCE ON RENAL DIALYSIS (3) Gangrene Code(s): I96 - GANGRENE, NOT ELSEWHERE CLASSIFIED (4) COPD (chronic obstructive pulmonary disease) Code(s): J44.9 - CHRONIC OBSTRUCTIVE PULMONARY DISEASE, UNSPECIFIED Qualifiers: COPD type: unspecified COPD Qualified Code(s): J44.9 - Chronic obstructive pulmonary disease, unspecified Assessment/Plan Current Medications Generic Name Dose Route Start Last Admin Trade Name Freq PRN Reason Stop Dose Admin Acetaminophen 650 mg 06/15/18 18:39 Tylenol - PO Q4H PRN PAIN 1-3 Albuterol Sulfate 1 amp 06/15/18 18:39 Ventolin 0.083% Nebulizer Soln - NEB Q8H PRN Dyspnea Aspirin 81 mg 06/16/18 10:00 06/18/18 10:18 Asa - PO 81 mg DAILY [facility] Administration Atorvastatin Calcium 80 mg 06/15/18 22:00 06/17/18 22:06 Lipitor - PO 80 mg HS [facility] Administration Clopidogrel Bisulfate 75 mg 06/16/18 10:00 06/18/18 10:18 Plavix - PO 75 mg DAILY [facility] Administration Heparin Sodium (Porcine) 5,000 unit 06/15/18 22:00 06/18/18 10:19 Heparin - SQ 5,000 unit BID [facility] Administration Piperacillin Sod/Tazobactam 50 mls @ 100 mls/hr 06/16/18 02:00 06/18/18 10:17 Sod 2.25 gm/ Dextrose IVPB 100 mls/hr Q8H-IV [facility] Administration Protocol Insulin Detemir 8 units 06/15/18 22:00 06/17/18 22:07 Levemir Vial SQ 8 units HS [facility] Administration Levothyroxine Sodium 25 mcg 06/16/18 07:00 06/18/18 06:01 Synthroid - PO 25 mcg DAILY@0700 [facility] Administration Metoprolol Succinate 150 mg 06/16/18 10:00 06/18/18 10:18 Toprol Xl - PO 150 mg DAILY [facility] Administration Oxycodone HCl 10 mg 06/15/18 18:39 06/18/18 06:02 Roxicodone - PO 10 mg Q4H PRN Administration PAIN LEVEL 6-10 Pantoprazole Sodium 40 mg 06/16/18 10:00 06/18/18 10:18 Protonix - PO 40 mg DAILY [facility] Administration Sacubitril/Valsartan 1 tab 06/15/18 22:00 06/18/18 10:19 Entresto 24 Mg-26 Mg Tablet PO 1 tab BID [facility] Administration Senna 1 tab 06/15/18 22:00 06/17/18 22:06 Senna - PO 1 tab HS [facility] Administration Impression 1. ESRD 2. toe gangrene 3. DM 4. CAD 5. PVD 6. DFU 7. anemia 8. hx steal syndrome s/p DRIL procedure 9. CHF Plan - HD in am - vascular follow up, input appreciatd - cont abx per iD - cont wound care to leg - renal diet - will follow Dr Dove
--- NOTE | 2018-06-18 15:57 | PN ---
Progress Note (short form) - Note Progress Note: VAscular Surgery Pt seen and examined. Pt still having some cellulitis with base of great toe with odor. Pt will probably benefit from toe amputation. Will consult podiatry for toe amputation. Robel oliver DO
[2018-06-18] MEDS ORDERED: INSULIN (NOVOLOG) ASPART 100 UNITS/ML 10ML VIAL ONE (21:02)
[2018-06-18] MEDS: ATORVASTATIN CA 80 MG TABLET (FP) PO SCH (21:07)
[2018-06-18] MEDS: SENNOSIDES 8.6MG TABLET (FP) PO SCH (21:08)
[2018-06-18] MEDS: INSULIN (LEVEMIR) 100 UNITS/ML UNITS SQ SCH (21:09)
[2018-06-19] MEDS ORDERED: DEXTROSE 5%-WATER - 50 ML IVPB ONE ×2 (01:30→17:01)
[2018-06-19] MEDS ORDERED: PIPERACILLIN/TAZOBACTAM 2.25 GM VIAL IVPB ONE ×2 (01:30→17:01)
[2018-06-19] MEDS: PIPERACILLIN/TAZOB 2.25 GM 2.25 GM in DEXTROSE 5%-WATER - 50 ML IVPB SCH ×3 (01:33→17:38)
[2018-06-19] MEDS: LEVOTHYROXINE NA 25 MCG TABLET (FP) PO SCH (06:16)
[2018-06-19 09:09] LABS: HEMATOCRIT 29.2 % (35.4-49); HEMOGLOBIN 9.4 GM/dL (11.7-16.9); MCH 28.6 pg (25.7-33.7); MCHC 32.2 g/dl (32.0-35.9); MEAN CELL VOLUME 88.8 fl (80-96); PLATELET COUNT 239 K/MM3 (134-434); RBC 3.29 M/mm3 (4.00-5.60)
[2018-06-19 09:22] LABS: ANION GAP 9 MMOL/L (8-16); BLOOD UREA NITROGEN 45 mg/dL (7-18); CHLORIDE 101 mmol/L (98-107); CO2 24 mmol/L (21-32); GLUCOSE,RANDOM 163 mg/dL (74-106); POTASSIUM 4.4 mmol/L (3.5-5.1); SODIUM 134 mmol/L (136-145)
[2018-06-19 09:46] LABS: CREATININE 7.6 mg/dL (0.7-1.3)
[2018-06-19] MEDS ORDERED: HEPARIN NA (PORCINE) 5,000 UNITS/ML 1ML VIAL IVPUSH ONE (10:00)
[2018-06-19] MEDS ORDERED: EPOETIN ALFA 3,000 UNIT, EPOETIN ALFA 2,000 UNIT IVPUSH ONE (10:00)
[2018-06-19] MEDS ORDERED: SODIUM CHLORIDE 250 ML IV PRN (10:00)
[2018-06-19] MEDS: HEPARIN NA (PORCINE) 5,000 UNITS/ML 1ML VIAL SQ SCH ×2 (10:02→22:10)
[2018-06-19] MEDS: PANTOPRAZOLE 40 MG TABLET (FP) PO SCH (10:02)
[2018-06-19] MEDS: CLOPIDOGREL BISULFATE 75 MG TABLET (FP) PO SCH (10:02)
[2018-06-19] MEDS: ASPIRIN 81 MG CHEWABLE TABLETS PO SCH (10:03)
[2018-06-19] MEDS: SACUBITRIL/VALSARTAN 24 MG-26 MG TABLET PO SCH ×2 (10:03→22:11)
--- NOTE | 2018-06-19 11:19 | PN ---
Progress Note (short form) - Note Progress Note: s/p angiogram,angioplasty and stent no distress pt examined in HD no pain in left big toe Vital Signs - 24 hr 06/18/18 06/18/18 06/19/18 21:00 23:00 06:00 Temperature 97 F L 98.8 F Pulse Rate 60 81 Respiratory 20 20 Rate Blood Pressure 134/70 138/64 O2 Sat by Pulse 97 Oximetry (%) 06/19/18 06/19/18 06/19/18 08:10 08:15 08:45 Temperature 98.3 F Pulse Rate 80 79 81 Respiratory 18 18 18 Rate Blood Pressure 139/66 147/60 125/65 O2 Sat by Pulse Oximetry (%) 06/19/18 06/19/18 06/19/18 09:15 09:45 10:00 Temperature 98 F Pulse Rate 79 80 84 Respiratory 18 18 20 Rate Blood Pressure 147/60 156/73 154/67 O2 Sat by Pulse Oximetry (%) 06/19/18 06/19/18 06/19/18 10:15 10:45 11:15 Temperature Pulse Rate 80 80 81 Respiratory 18 18 18 Rate Blood Pressure 176/79 165/75 175/76 O2 Sat by Pulse Oximetry (%) 06/19/18 06/19/18 06/19/18 11:55 12:00 14:36 Temperature 98.5 F 98.6 F Pulse Rate 80 80 81 Respiratory 18 18 Rate Blood Pressure 176/71 163/73 132/47 O2 Sat by Pulse Oximetry (%) Current Medications Generic Name Dose Route Start Last Admin Trade Name Freq PRN Reason Stop Dose Admin Acetaminophen 650 mg 06/15/18 18:39 Tylenol - PO Q4H PRN PAIN 1-3 Albuterol Sulfate 1 amp 06/15/18 18:39 Ventolin 0.083% Nebulizer Soln - NEB Q8H PRN Dyspnea Aspirin 81 mg 06/16/18 10:00 06/19/18 10:03 Asa - PO Not Given DAILY [facility] Atorvastatin Calcium 80 mg 06/15/18 22:00 06/18/18 21:07 Lipitor - PO 80 mg HS [facility] Administration Clopidogrel Bisulfate 75 mg 06/16/18 10:00 06/19/18 10:02 Plavix - PO Not Given DAILY [facility] Heparin Sodium (Porcine) 5,000 unit 06/15/18 22:00 06/19/18 10:02 Heparin - SQ Not Given BID [facility] Piperacillin Sod/Tazobactam 50 mls @ 100 mls/hr 06/16/18 02:00 06/19/18 17:38 Sod 2.25 gm/ Dextrose IVPB 100 mls/hr Q8H-IV [facility] Administration Protocol Insulin Detemir 8 units 06/15/18 22:00 06/18/18 21:09 Levemir Vial SQ 8 units HS [facility] Administration Levothyroxine Sodium 25 mcg 06/16/18 07:00 06/19/18 06:16 Synthroid - PO 25 mcg DAILY@0700 [facility] Administration Metoprolol Succinate 150 mg 06/16/18 10:00 06/19/18 10:03 Toprol Xl - PO Not Given DAILY [facility] Oxycodone HCl 10 mg 06/15/18 18:39 06/19/18 17:36 Roxicodone - PO 10 mg Q4H PRN Administration PAIN LEVEL 6-10 Pantoprazole Sodium 40 mg 06/16/18 10:00 06/19/18 10:02 Protonix - PO Not Given DAILY [facility] Sacubitril/Valsartan 1 tab 06/15/18 22:00 06/19/18 10:03 Entresto 24 Mg-26 Mg Tablet PO Not Given BID [facility] Senna 1 tab 06/15/18 22:00 06/18/18 21:08 Senna - PO 1 tab HS [facility] Administration Laboratory Results - last 24 hr 06/14/18 06/18/18 06/19/18 13:40 21:06 06:47 WBC RBC Hgb Hct MCV MCH MCHC RDW Plt Count MPV Sodium Potassium Chloride Carbon Dioxide Anion Gap BUN Creatinine Creat Clearance w eGFR POC Glucometer 290 171 Random Glucose Calcium Hep C Ab Diagnostic 1.7 H HCV RNA PCR log telescope repairer/ml TNP HCV RNA PCR w/Genot Rflx Hcv not detected Liver Fibrosis Interp 06/19/18 06/19/18 08:00 08:00 WBC 10.0 RBC 3.29 L Hgb 9.4 L Hct 29.2 L MCV 88.8 MCH 28.6 MCHC 32.2 RDW 17.0 H Plt Count 239 MPV 9.0 Sodium 134 L Potassium 4.4 Chloride 101 Carbon Dioxide 24 Anion Gap 9 BUN 45 H Creatinine 7.6 H* Creat Clearance w eGFR 7.07 POC Glucometer Random Glucose 163 H D Calcium 8.0 L Hep C Ab Diagnostic HCV RNA PCR log telescope repairer/ml HCV RNA PCR w/Genot Rflx Liver Fibrosis Interp S1 S2 RRR Lungs decreased Abd- soft, NT no edema left big toe -- gangrene, base is erythema+ A/P IV antibiotics HD per renal pain control Podiatry eval for amputation of big toe-- pt is cleared for surgery Problem List - Problems (1) Gangrene Code(s): I96 - GANGRENE, NOT ELSEWHERE CLASSIFIED (2) Infection of toe Code(s): L08.9 - LOCAL INFECTION OF THE SKIN AND SUBCUTANEOUS TISSUE, UNSP (3) ASHD (arteriosclerotic heart disease) Code(s): I25.10 - ATHSCL HEART DISEASE OF [place] CORONARY ARTERY W/O ANG PCTRS (4) Anemia Code(s): D64.9 - ANEMIA, UNSPECIFIED (5) CHF (congestive heart failure), NYHA class IV Code(s): I50.9 - HEART FAILURE, UNSPECIFIED Qualifiers: Congestive heart failure type: systolic Congestive heart failure chronicity : chronic Qualified Code(s): I50.22 - Chronic systolic (congestive) heart failure
--- NOTE | 2018-06-19 11:55 | PN ---
Progress Note, Physician History of Present Illness: Pt seen and examined at bedside. He is currently getting HD. He denies shortness of breath. - Current Medication List Current Medications: Active Medications Acetaminophen (Tylenol -) 650 mg PO Q4H PRN PRN Reason: PAIN 1-3 Albuterol Sulfate (Ventolin 0.083% Nebulizer Soln -) 1 amp NEB Q8H PRN PRN Reason: Dyspnea Aspirin (Asa -) 81 mg PO DAILY [facility] Last Admin: 06/19/18 10:03 Dose: Not Given Atorvastatin Calcium (Lipitor -) 80 mg PO HS [facility] Last Admin: 06/18/18 21:07 Dose: 80 mg Clopidogrel Bisulfate (Plavix -) 75 mg PO DAILY [facility] Last Admin: 06/19/18 10:02 Dose: Not Given Heparin Sodium (Porcine) (Heparin -) 5,000 unit SQ BID [facility] Last Admin: 06/19/18 10:02 Dose: Not Given Piperacillin Sod/Tazobactam (Sod 2.25 gm/ Dextrose) 50 mls @ 100 mls/hr IVPB Q8H-IV [facility]; Protocol Last Admin: 06/19/18 10:04 Dose: Not Given Insulin Detemir (Levemir Vial) 8 units SQ HS [facility] Last Admin: 06/18/18 21:09 Dose: 8 units Levothyroxine Sodium (Synthroid -) 25 mcg PO DAILY@0700 [facility] Last Admin: 06/19/18 06:16 Dose: 25 mcg Metoprolol Succinate (Toprol Xl -) 150 mg PO DAILY [facility] Last Admin: 06/19/18 10:03 Dose: Not Given Oxycodone HCl (Roxicodone -) 10 mg PO Q4H PRN PRN Reason: PAIN LEVEL 6-10 Last Admin: 06/18/18 21:07 Dose: 10 mg Pantoprazole Sodium (Protonix -) 40 mg PO DAILY [facility] Last Admin: 06/19/18 10:02 Dose: Not Given Sacubitril/Valsartan (Entresto 24 Mg-26 Mg Tablet) 1 tab PO BID [facility] Last Admin: 06/19/18 10:03 Dose: Not Given Senna (Senna -) 1 tab PO HS [facility] Last Admin: 06/18/18 21:08 Dose: 1 tab - Objective Vital Signs: Vital Signs Temperature 98.3 F 06/19/18 08:10 Pulse Rate 80 06/19/18 10:45 Respiratory Rate 18 06/19/18 10:45 Blood Pressure 165/75 06/19/18 10:45 O2 Sat by Pulse Oximetry (%) 97 06/18/18 21:00 Constitutional: Yes: Calm Eyes: Yes: Conjunctiva Clear HENT: Yes: Atraumatic Cardiovascular: Yes: S1, S2 Respiratory: Yes: CTA Bilaterally Gastrointestinal: Yes: Soft Genitourinary: Yes: WNL Musculoskeletal: Yes: Other (toe gangrene) Edema: No Integumentary: Yes: Other (toe gangrene) Neurological: Yes: Oriented Psychiatric: Yes: Oriented Labs: CBC, BMP 06/19/18 08:00 06/19/18 08:00 INR, PTT INR 1.03 (0.83-1.09) 06/14/18 07:10 Problem List - Problems (1) Cellulitis Code(s): L03.90 - CELLULITIS, UNSPECIFIED (2) ESRD (end stage renal disease) on dialysis Code(s): N18.6 - END STAGE RENAL DISEASE; Z99.2 - DEPENDENCE ON RENAL DIALYSIS (3) Gangrene Code(s): I96 - GANGRENE, NOT ELSEWHERE CLASSIFIED (4) COPD (chronic obstructive pulmonary disease) Code(s): J44.9 - CHRONIC OBSTRUCTIVE PULMONARY DISEASE, UNSPECIFIED Qualifiers: COPD type: unspecified COPD Qualified Code(s): J44.9 - Chronic obstructive pulmonary disease, unspecified Assessment/Plan Current Medications Generic Name Dose Route Start Last Admin Trade Name Freq PRN Reason Stop Dose Admin Acetaminophen 650 mg 06/15/18 18:39 Tylenol - PO Q4H PRN PAIN 1-3 Albuterol Sulfate 1 amp 06/15/18 18:39 Ventolin 0.083% Nebulizer Soln - NEB Q8H PRN Dyspnea Aspirin 81 mg 06/16/18 10:00 06/19/18 10:03 Asa - PO Not Given DAILY [facility] Atorvastatin Calcium 80 mg 06/15/18 22:00 06/18/18 21:07 Lipitor - PO 80 mg HS [facility] Administration Clopidogrel Bisulfate 75 mg 06/16/18 10:00 06/19/18 10:02 Plavix - PO Not Given DAILY [facility] Heparin Sodium (Porcine) 5,000 unit 06/15/18 22:00 06/19/18 10:02 Heparin - SQ Not Given BID [facility] Piperacillin Sod/Tazobactam 50 mls @ 100 mls/hr 06/16/18 02:00 06/19/18 10:04 Sod 2.25 gm/ Dextrose IVPB Not Given Q8H-IV [facility] Protocol Insulin Detemir 8 units 06/15/18 22:00 06/18/18 21:09 Levemir Vial SQ 8 units HS [facility] Administration Levothyroxine Sodium 25 mcg 06/16/18 07:00 06/19/18 06:16 Synthroid - PO 25 mcg DAILY@0700 [facility] Administration Metoprolol Succinate 150 mg 06/16/18 10:00 06/19/18 10:03 Toprol Xl - PO Not Given DAILY [facility] Oxycodone HCl 10 mg 06/15/18 18:39 06/18/18 21:07 Roxicodone - PO 10 mg Q4H PRN Administration PAIN LEVEL 6-10 Pantoprazole Sodium 40 mg 06/16/18 10:00 06/19/18 10:02 Protonix - PO Not Given DAILY [facility] Sacubitril/Valsartan 1 tab 06/15/18 22:00 06/19/18 10:03 Entresto 24 Mg-26 Mg Tablet PO Not Given BID [facility] Senna 1 tab 06/15/18 22:00 06/18/18 21:08 Senna - PO 1 tab HS [facility] Administration Impression 1. ESRD 2. toe gangrene 3. DM 4. CAD 5. PVD 6. DFU 7. anemia 8. hx steal syndrome s/p DRIL procedure 9. CHF Plan - HD today - vascular surgery eval appreciated - podiatry eval for possible amputation of toe pending - cont abx per iD - cont wound care to leg - renal diet - will follow Dr Dove
--- NOTE | 2018-06-19 12:37 | PN ---
Progress Note, Physician Chief Complaint: Events noted. Not in distress, but awaiting decision on possible toe amputation History of Present Illness: Patient was seen and examined. Awake and alert. Chart was reviewed Denies chest pain, SOB or palpitations Seen during dialysis - Current Medication List Current Medications: Active Medications Acetaminophen (Tylenol -) 650 mg PO Q4H PRN PRN Reason: PAIN 1-3 Albuterol Sulfate (Ventolin 0.083% Nebulizer Soln -) 1 amp NEB Q8H PRN PRN Reason: Dyspnea Aspirin (Asa -) 81 mg PO DAILY [facility] Last Admin: 06/19/18 10:03 Dose: Not Given Atorvastatin Calcium (Lipitor -) 80 mg PO [facility] Last Admin: 06/18/18 21:07 Dose: 80 mg Clopidogrel Bisulfate (Plavix -) 75 mg PO DAILY [facility] Last Admin: 06/19/18 10:02 Dose: Not Given Heparin Sodium (Porcine) (Heparin -) 5,000 unit SQ BID [facility] Last Admin: 06/19/18 10:02 Dose: Not Given Piperacillin Sod/Tazobactam (Sod 2.25 gm/ Dextrose) 50 mls @ 100 mls/hr IVPB Q8H-IV [facility]; Protocol Last Admin: 06/19/18 10:04 Dose: Not Given Insulin Detemir (Levemir Vial) 8 units SQ [facility] Last Admin: 06/18/18 21:09 Dose: 8 units Levothyroxine Sodium (Synthroid -) 25 mcg PO DAILY@0700 [facility] Last Admin: 06/19/18 06:16 Dose: 25 mcg Metoprolol Succinate (Toprol Xl -) 150 mg PO DAILY [facility] Last Admin: 06/19/18 10:03 Dose: Not Given Oxycodone HCl (Roxicodone -) 10 mg PO Q4H PRN PRN Reason: PAIN LEVEL 6-10 Last Admin: 06/18/18 21:07 Dose: 10 mg Pantoprazole Sodium (Protonix -) 40 mg PO DAILY [facility] Last Admin: 06/19/18 10:02 Dose: Not Given Sacubitril/Valsartan (Entresto 24 Mg-26 Mg Tablet) 1 tab PO BID [facility] Last Admin: 06/19/18 10:03 Dose: Not Given Senna (Senna -) 1 tab PO [facility] Last Admin: 06/18/18 21:08 Dose: 1 tab - Objective Vital Signs: Vital Signs Temperature 98.3 F 06/19/18 08:10 Pulse Rate 80 06/19/18 10:45 Respiratory Rate 18 06/19/18 10:45 Blood Pressure 165/75 06/19/18 10:45 O2 Sat by Pulse Oximetry (%) 97 06/18/18 21:00 Neck: Yes: Supple Cardiovascular: Yes: Regular Rate and Rhythm, S1, S2 Respiratory: Yes: CTA Bilaterally Gastrointestinal: Yes: Normal Bowel Sounds, Soft. No: Tenderness Edema: No Labs: CBC, BMP 06/19/18 08:00 06/19/18 08:00 Problem List - Problems (1) ESRD (end stage renal disease) on dialysis Code(s): N18.6 - END STAGE RENAL DISEASE; Z99.2 - DEPENDENCE ON RENAL DIALYSIS (2) Gangrene Code(s): I96 - GANGRENE, NOT ELSEWHERE CLASSIFIED (3) Infection of toe Code(s): L08.9 - LOCAL INFECTION OF THE SKIN AND SUBCUTANEOUS TISSUE, UNSP (4) ASHD (arteriosclerotic heart disease) Code(s): I25.10 - ATHSCL HEART DISEASE OF [place] CORONARY ARTERY W/O ANG PCTRS (5) Anemia Code(s): D64.9 - ANEMIA, UNSPECIFIED (6) CHF (congestive heart failure), NYHA class IV Code(s): I50.9 - HEART FAILURE, UNSPECIFIED Qualifiers: Congestive heart failure type: systolic Congestive heart failure chronicity : chronic Qualified Code(s): I50.22 - Chronic systolic (congestive) heart failure (7) COPD (chronic obstructive pulmonary disease) Code(s): J44.9 - CHRONIC OBSTRUCTIVE PULMONARY DISEASE, UNSPECIFIED Qualifiers: COPD type: unspecified COPD Qualified Code(s): J44.9 - Chronic obstructive pulmonary disease, unspecified (8) Chronic HFrEF (heart failure with reduced ejection fraction) Code(s): I50.22 - CHRONIC SYSTOLIC (CONGESTIVE) HEART FAILURE (9) Diabetes Code(s): E11.9 - TYPE 2 DIABETES MELLITUS WITHOUT COMPLICATIONS Qualifiers: Diabetes mellitus type: type 2 Diabetes mellitus nurse aide evaluator insulin use: without nurse aide evaluator use Diabetes mellitus complication status: with neurologic complications (10) ESRD (end stage renal disease) Code(s): N18.6 - END STAGE RENAL DISEASE (11) HTN (hypertension) Code(s): I10 - ESSENTIAL (PRIMARY) HYPERTENSION Qualifiers: Hypertension type: essential hypertension Qualified Code(s): I10 - Essential (primary) hypertension (12) Hypothyroidism Code(s): E03.9 - HYPOTHYROIDISM, UNSPECIFIED Qualifiers: Hypothyroidism type: unspecified Qualified Code(s): E03.9 - Hypothyroidism , unspecified (13) ICD (implantable cardioverter-defibrillator) in place Code(s): Z95.810 - PRESENCE OF AUTOMATIC (IMPLANTABLE) CARDIAC DEFIBRILLATOR (14) Ischemic dilated cardiomyopathy Code(s): I25.5 - ISCHEMIC CARDIOMYOPATHY; I42.0 - DILATED CARDIOMYOPATHY (15) PVD (peripheral vascular disease) Code(s): I73.9 - PERIPHERAL VASCULAR DISEASE, UNSPECIFIED (16) S/P CABG (coronary artery bypass graft) Code(s): Z95.1 - PRESENCE OF AORTOCORONARY BYPASS GRAFT (17) S/P peripheral artery angioplasty with stent placement Code(s): Z95.820 - PERIPHERAL VASCULAR ANGIOPLASTY STATUS W IMPLANTS AND GRAFTS Assessment/Plan 1. LLE angiogram s/p stent but vascular surgery input noted for possible toe amputation 2. Chronic Systolic Heart Failure referable to ischemic dilated cardiomyopathy/ severe LV systolic dysfunction 3. CAD post remote [place] post CABG angina pectoris 4. Post prophylactic ICD implant ([employer]'s device) 5. HTN 6. IDDM 7. Hypercholesterolemia 8. PAD with persistent left toe gangrene despite h/o aortogram, LLE angiogram, SFA atherectomy, DCB SFA angioplasty, with sfa stent 9. ESRD on HD, right AVG with steal and hyperkalemia s/p right arm angiogram and DRIL procedure 10. Anemia of CKD 11. Hypothyroidism 12. History of GI bleed PLAN: 1. HD per nephrology 2. Empiric antibiotic per ID 3. Continue Toprol XL 150 qd 4. Continue Entresto 24/26 bid - monitor electrolytes 5. Continue ASA 81 qd and Plavix 75 qd 6. Continue Lipitor 80 qhs 7. DVT and GI prophylaxis 8. Podiatry evaluation pending. No absolute contraindication cardiac standpoint in view of absence of ischemic symptoms, decompensated congestive heart failure or malignant arrhythmia 9. Wound care Jarocho Taylor MD
[2018-06-19] MEDS ORDERED: EPOETIN ALFA 2,000 UNIT/1 ML VIAL IVPUSH ONE (14:22)
[2018-06-19] MEDS: oxyCODONE HCL 5 MG TABLET PO PRN (17:36)
--- NOTE | 2018-06-19 18:27 | CONSULT ---
Consult Consult Specialty:: Podiatry Reason for Consultation:: Gangarene, dry left big toe. - History of Present Illness Chief Complaint: Pain left big toe with gangarene. 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 Cardio/Vascular: Yes: AFIB, CAD, CHF, HTN, Hyperlipdemia, ND, Mitral Insufficiency Gastrointestinal: Yes: GI Bleed Renal/: Yes: Renal Inusuff, Hemodialysis Psych: Yes: Anxiety Endocrine: Yes: Diabetes Mellitus Dermatology: Yes: Other (gangarene left big toe) - Past Surgical History Past Surgical History: Yes: AICD, AV Fistula/Graft, CABG - Alcohol/Substance Use Hx Alcohol Use: No - Smoking History Smoking history: Former smoker Have you smoked in the past 12 months: No Aproximately how many cigarettes per day: 5 If you are a former smoker, when did you quit?: 2004 Home Medications - Allergies Allergies/Adverse Reactions: Allergies Allergy/AdvReac Type Severity Reaction Status Date / Time gabapentin [From Neurontin] AdvReac Verified 06/13/18 21:54 - Home Medications Home Medications: Ambulatory Orders Acetaminophen 650 mg PO Q4H PRN 02/28/18 Aspirin [ASA -] 81 mg PO DAILY 02/28/18 Atorvastatin Ca [Lipitor] 80 mg PO HS 02/28/18 Calcium Acetate [Phoslo -] 667 mg PO TIDCM 02/28/18 Clopidogrel Bisulfate [Plavix -] 75 mg PO DAILY 02/28/18 Insulin Glargine,Hum.rec.anlog [Lantus] 16 unit SQ HS 02/28/18 Levothyroxine [Synthroid -] 25 mcg PO DAILY 02/28/18 Metoprolol Succinate [Toprol Xl] 150 mg PO DAILY 02/28/18 Pantoprazole Sodium 40 mg PO DAILY 02/28/18 Sennosides [Senna -] 1 tab PO HS 02/28/18 Sertraline HCl [Zoloft -] 50 mg PO HS 02/28/18 Heparin - 5,000 unit SQ BID #1 vial 03/10/18 Albuterol 0.083% Nebulizer Yessi [Ventolin 0.083% Nebulizer Soln -] 1 amp IN Q8H PRN 03/28/18 Sacubitril/Valsartan [Entresto 49 mg-51 mg Tablet] 1 tab PO BID #60 tablet 04/05 Gabapentin [Neurontin -] 100 mg PO DAILY 04/21/18 Melatonin 3 mg PO HS 04/21/18 Physical Exam Vital Signs: Vital Signs Temperature 98.6 F 06/19/18 14:36 Pulse Rate 81 06/19/18 14:36 Respiratory Rate 18 06/19/18 12:00 Blood Pressure 132/47 06/19/18 14:36 O2 Sat by Pulse Oximetry (%) 97 06/18/18 21:00 Extremities: Yes: Other (gangarene, dry left big toe,) Labs: CBC, BMP 06/19/18 08:00 06/19/18 08:00 Assessment/Plan gangarene Schedule for amputation possible first ray on . Discussed with Dr. Nieves. Foot xray left. dsd daily till OR. will follow. Medical clearance by hospitalists.
[2018-06-19] MEDS ORDERED: PT OWN MED DRAWER 7, Y5N ONE (22:09)
[2018-06-19] MEDS: INSULIN (LEVEMIR) 100 UNITS/ML UNITS SQ SCH (22:10)
[2018-06-19] MEDS: ATORVASTATIN CA 80 MG TABLET (FP) PO SCH (22:10)
[2018-06-19] MEDS: SENNOSIDES 8.6MG TABLET (FP) PO SCH (22:10)
[2018-06-20] MEDS ORDERED: DEXTROSE 5%-WATER - 50 ML IVPB ONE ×3 (00:55→16:53)
[2018-06-20] MEDS ORDERED: PIPERACILLIN/TAZOBACTAM 2.25 GM VIAL IVPB ONE ×3 (00:55→16:53)
[2018-06-20] MEDS: oxyCODONE HCL 5 MG TABLET PO PRN (00:56)
[2018-06-20] MEDS: PIPERACILLIN/TAZOB 2.25 GM 2.25 GM in DEXTROSE 5%-WATER - 50 ML IVPB SCH ×3 (02:00→17:11)
[2018-06-20] MEDS: LEVOTHYROXINE NA 25 MCG TABLET (FP) PO SCH (06:26)
[2018-06-20] MEDS ORDERED: PT OWN MED DRAWER 7, Y5N ONE (10:17)
[2018-06-20] MEDS: ASPIRIN 81 MG CHEWABLE TABLETS PO SCH (10:49)
[2018-06-20] MEDS: SACUBITRIL/VALSARTAN 24 MG-26 MG TABLET PO SCH ×2 (10:49→22:00)
[2018-06-20] MEDS: HEPARIN NA (PORCINE) 5,000 UNITS/ML 1ML VIAL SQ SCH ×2 (10:50→21:59)
[2018-06-20] MEDS: CLOPIDOGREL BISULFATE 75 MG TABLET (FP) PO SCH (10:51)
[2018-06-20] MEDS: PANTOPRAZOLE 40 MG TABLET (FP) PO SCH (10:51)
--- NOTE | 2018-06-20 11:25 | PN ---
Progress Note (short form) - Note Progress Note: s/p angiogram,angioplasty and stent no distress pt examined- c/o constipation x 5days , no abd pain or nausea c/o pain in left big toe Vital Signs - 24 hr 06/19/18 06/19/18 06/20/18 20:00 21:00 02:00 Temperature 99.8 F H 98.0 F Pulse Rate 80 80 Respiratory 20 18 Rate Blood Pressure 143/60 146/62 O2 Sat by Pulse 96 Oximetry (%) 06/20/18 06/20/18 06/20/18 09:00 09:30 15:29 Temperature 98.9 F 98.5 F Pulse Rate 74 90 Respiratory 18 18 18 Rate Blood Pressure 150/68 145/69 O2 Sat by Pulse 99 Oximetry (%) Current Medications Generic Name Dose Route Start Last Admin Trade Name Freq PRN Reason Stop Dose Admin Acetaminophen 650 mg 06/15/18 18:39 06/20/18 11:33 Tylenol - PO 650 mg Q4H PRN Administration PAIN 1-3 Albuterol Sulfate 1 amp 06/15/18 18:39 Ventolin 0.083% Nebulizer Soln - NEB Q8H PRN Dyspnea Aspirin 81 mg 06/16/18 10:00 06/20/18 10:49 Asa - PO 81 mg DAILY [facility] Administration Atorvastatin Calcium 80 mg 06/15/18 22:00 06/19/18 22:10 Lipitor - PO 80 mg HS [facility] Administration Clopidogrel Bisulfate 75 mg 06/16/18 10:00 06/20/18 10:51 Plavix - PO 75 mg DAILY [facility] Administration Docusate Sodium 100 mg 06/20/18 14:00 06/20/18 13:26 Colace - PO 100 mg TID [facility] Administration Epoetin Parmjit 5,000 unit 06/21/18 12:41 Epogen - IVPUSH 06/21/18 12:42 ONCE ONE Heparin Sodium (Porcine) 5,000 unit 06/15/18 22:00 06/20/18 10:50 Heparin - SQ 5,000 unit BID [facility] Administration Heparin Sodium (Porcine) 1,000 unit 06/21/18 12:41 Heparin - IVPUSH 06/21/18 12:42 ONCE ONE Piperacillin Sod/Tazobactam 50 mls @ 100 mls/hr 06/16/18 02:00 06/20/18 10:53 Sod 2.25 gm/ Dextrose IVPB 100 mls/hr Q8H-IV [facility] Administration Protocol Sodium Chloride 250 mls @ 3,000 mls/hr 06/20/18 12:41 Normal Saline - IV 06/21/18 12:41 PRN PRN Hypotension during Dialysis Insulin Detemir 8 units 06/15/18 22:00 06/19/18 22:10 Levemir Vial SQ 8 units HS [facility] Administration Levothyroxine Sodium 25 mcg 06/16/18 07:00 06/20/18 06:26 Synthroid - PO 25 mcg DAILY@0700 [facility] Administration Metoprolol Succinate 150 mg 06/16/18 10:00 06/20/18 10:52 Toprol Xl - PO 150 mg DAILY [facility] Administration Oxycodone HCl 5 mg 06/20/18 11:39 Roxicodone - PO Q6H PRN PAIN LEVEL 6-10 Pantoprazole Sodium 40 mg 06/16/18 10:00 06/20/18 10:51 Protonix - PO 40 mg DAILY [facility] Administration Sacubitril/Valsartan 1 tab 06/15/18 22:00 06/20/18 10:49 Entresto 24 Mg-26 Mg Tablet PO 1 tab BID [facility] Administration Senna 1 tab 06/15/18 22:00 06/19/18 22:10 Senna - PO 1 tab HS [facility] Administration Laboratory Results - last 24 hr 06/20/18 11:46 POC Glucometer 271 S1 S2 RRR Lungs decreased Abd- soft, NT no edema left big toe -- gangrene, base is erythema+ A/P IV antibiotics HD per renal pain control Podiatry eval for amputation of big toe-- pt is cleared for surgery advised to hold ASA and plavix on AM of surgery stool softeners, enemas Problem List - Problems (1) Gangrene Code(s): I96 - GANGRENE, NOT ELSEWHERE CLASSIFIED (2) Infection of toe Code(s): L08.9 - LOCAL INFECTION OF THE SKIN AND SUBCUTANEOUS TISSUE, UNSP (3) ASHD (arteriosclerotic heart disease) Code(s): I25.10 - ATHSCL HEART DISEASE OF [place] CORONARY ARTERY W/O ANG PCTRS (4) Anemia Code(s): D64.9 - ANEMIA, UNSPECIFIED (5) CHF (congestive heart failure), NYHA class IV Code(s): I50.9 - HEART FAILURE, UNSPECIFIED Qualifiers: Congestive heart failure type: systolic Congestive heart failure chronicity : chronic Qualified Code(s): I50.22 - Chronic systolic (congestive) heart failure
[2018-06-20] MEDS ORDERED: oxyCODONE HCL 5 MG TABLET PO PRN (11:39)
--- NOTE | 2018-06-20 12:41 | PN ---
Progress Note, Physician History of Present Illness: Pt seen and examined at bedside. He is awake and alert. He denies shortness of breath. - Current Medication List Current Medications: Active Medications Acetaminophen (Tylenol -) 650 mg PO Q4H PRN PRN Reason: PAIN 1-3 Last Admin: 06/20/18 11:33 Dose: 650 mg Albuterol Sulfate (Ventolin 0.083% Nebulizer Soln -) 1 amp NEB Q8H PRN PRN Reason: Dyspnea Aspirin (Asa -) 81 mg PO DAILY [facility] Last Admin: 06/20/18 10:49 Dose: 81 mg Atorvastatin Calcium (Lipitor -) 80 mg PO HS [facility] Last Admin: 06/19/18 22:10 Dose: 80 mg Clopidogrel Bisulfate (Plavix -) 75 mg PO DAILY [facility] Last Admin: 06/20/18 10:51 Dose: 75 mg Docusate Sodium (Colace -) 100 mg PO TID [facility] Heparin Sodium (Porcine) (Heparin -) 5,000 unit SQ BID [facility] Last Admin: 06/20/18 10:50 Dose: 5,000 unit Piperacillin Sod/Tazobactam (Sod 2.25 gm/ Dextrose) 50 mls @ 100 mls/hr IVPB Q8H-IV [facility]; Protocol Last Admin: 06/20/18 10:53 Dose: 100 mls/hr Insulin Detemir (Levemir Vial) 8 units SQ [facility] Last Admin: 06/19/18 22:10 Dose: 8 units Levothyroxine Sodium (Synthroid -) 25 mcg PO DAILY@0700 [facility] Last Admin: 06/20/18 06:26 Dose: 25 mcg Metoprolol Succinate (Toprol Xl -) 150 mg PO DAILY [facility] Last Admin: 06/20/18 10:52 Dose: 150 mg Oxycodone HCl (Roxicodone -) 5 mg PO Q6H PRN PRN Reason: PAIN LEVEL 6-10 Pantoprazole Sodium (Protonix -) 40 mg PO DAILY [facility] Last Admin: 06/20/18 10:51 Dose: 40 mg Sacubitril/Valsartan (Entresto 24 Mg-26 Mg Tablet) 1 tab PO BID [facility] Last Admin: 06/20/18 10:49 Dose: 1 tab Senna (Senna -) 1 tab PO [facility] Last Admin: 06/19/18 22:10 Dose: 1 tab - Objective Vital Signs: Vital Signs Temperature 98.0 F 06/20/18 02:00 Pulse Rate 80 06/20/18 02:00 Respiratory Rate 18 06/19/18 21:00 Blood Pressure 146/62 06/20/18 02:00 O2 Sat by Pulse Oximetry (%) 96 06/19/18 21:00 Constitutional: Yes: Calm Eyes: Yes: Conjunctiva Clear HENT: Yes: Atraumatic Neck: Yes: Supple Cardiovascular: Yes: S1, S2 Respiratory: Yes: CTA Bilaterally Gastrointestinal: Yes: Normal Bowel Sounds, Soft Genitourinary: Yes: WNL Extremities: Yes: WNL Edema: No Wound/Incision: Yes: Dressing Dry and Intact Neurological: Yes: Oriented Psychiatric: Yes: Oriented Labs: CBC, BMP 06/19/18 08:00 06/19/18 08:00 INR, PTT INR 1.03 (0.83-1.09) 06/14/18 07:10 Problem List - Problems (1) Cellulitis Code(s): L03.90 - CELLULITIS, UNSPECIFIED (2) ESRD (end stage renal disease) on dialysis Code(s): N18.6 - END STAGE RENAL DISEASE; Z99.2 - DEPENDENCE ON RENAL DIALYSIS (3) Gangrene Code(s): I96 - GANGRENE, NOT ELSEWHERE CLASSIFIED (4) COPD (chronic obstructive pulmonary disease) Code(s): J44.9 - CHRONIC OBSTRUCTIVE PULMONARY DISEASE, UNSPECIFIED Qualifiers: COPD type: unspecified COPD Qualified Code(s): J44.9 - Chronic obstructive pulmonary disease, unspecified Assessment/Plan Current Medications Generic Name Dose Route Start Last Admin Trade Name Freq PRN Reason Stop Dose Admin Acetaminophen 650 mg 06/15/18 18:39 06/20/18 11:33 Tylenol - PO 650 mg Q4H PRN Administration PAIN 1-3 Albuterol Sulfate 1 amp 06/15/18 18:39 Ventolin 0.083% Nebulizer Soln - NEB Q8H PRN Dyspnea Aspirin 81 mg 06/16/18 10:00 06/20/18 10:49 Asa - PO 81 mg DAILY [facility] Administration Atorvastatin Calcium 80 mg 06/15/18 22:00 06/19/18 22:10 Lipitor - PO 80 mg HS [facility] Administration Clopidogrel Bisulfate 75 mg 06/16/18 10:00 06/20/18 10:51 Plavix - PO 75 mg DAILY [facility] Administration Docusate Sodium 100 mg 06/20/18 14:00 Colace - PO TID [facility] Heparin Sodium (Porcine) 5,000 unit 06/15/18 22:00 06/20/18 10:50 Heparin - SQ 5,000 unit BID [facility] Administration Piperacillin Sod/Tazobactam 50 mls @ 100 mls/hr 06/16/18 02:00 06/20/18 10:53 Sod 2.25 gm/ Dextrose IVPB 100 mls/hr Q8H-IV [facility] Administration Protocol Insulin Detemir 8 units 06/15/18 22:00 06/19/18 22:10 Levemir Vial SQ 8 units HS [facility] Administration Levothyroxine Sodium 25 mcg 06/16/18 07:00 06/20/18 06:26 Synthroid - PO 25 mcg DAILY@0700 [facility] Administration Metoprolol Succinate 150 mg 06/16/18 10:00 06/20/18 10:52 Toprol Xl - PO 150 mg DAILY [facility] Administration Oxycodone HCl 5 mg 06/20/18 11:39 Roxicodone - PO Q6H PRN PAIN LEVEL 6-10 Pantoprazole Sodium 40 mg 06/16/18 10:00 06/20/18 10:51 Protonix - PO 40 mg DAILY [facility] Administration Sacubitril/Valsartan 1 tab 06/15/18 22:00 06/20/18 10:49 Entresto 24 Mg-26 Mg Tablet PO 1 tab BID [facility] Administration Senna 1 tab 06/15/18 22:00 06/19/18 22:10 Senna - PO 1 tab HS [facility] Administration Impression 1. ESRD 2. toe gangrene 3. DM 4. CAD 5. PVD 6. DFU 7. anemia 8. hx steal syndrome s/p DRIL procedure 9. CHF 10. constipation Plan - HD tomorrow - podiatry follow up - colace added to meds - cont abx per iD - cont wound care to leg - renal diet - will follow Dr Dove
[2018-06-20] MEDS: DOCUSATE SODIUM 100 MG CAPSULE (FP) PO SCH ×2 (13:26→21:59)
--- NOTE | 2018-06-20 13:33 | PN ---
Progress Note, Physician History of Present Illness: Planned for amputation of gangrenous left great toe. Regarding cardiovascular symptoms, patient denies chest pain, dyspnea, palpitations, near or true syncope , orthopnea, PND or LE edema. - Current Medication List Current Medications: Active Medications Acetaminophen (Tylenol -) 650 mg PO Q4H PRN PRN Reason: PAIN 1-3 Last Admin: 06/20/18 11:33 Dose: 650 mg Albuterol Sulfate (Ventolin 0.083% Nebulizer Soln -) 1 amp NEB Q8H PRN PRN Reason: Dyspnea Aspirin (Asa -) 81 mg PO DAILY [facility] Last Admin: 06/20/18 10:49 Dose: 81 mg Atorvastatin Calcium (Lipitor -) 80 mg PO HS [facility] Last Admin: 06/19/18 22:10 Dose: 80 mg Clopidogrel Bisulfate (Plavix -) 75 mg PO DAILY [facility] Last Admin: 06/20/18 10:51 Dose: 75 mg Docusate Sodium (Colace -) 100 mg PO TID [facility] Last Admin: 06/20/18 13:26 Dose: 100 mg Epoetin Parmjit (Epogen -) 5,000 unit IVPUSH ONCE ONE Stop: 06/21/18 12:42 Heparin Sodium (Porcine) (Heparin -) 5,000 unit SQ BID [facility] Last Admin: 06/20/18 10:50 Dose: 5,000 unit Heparin Sodium (Porcine) (Heparin -) 1,000 unit IVPUSH ONCE ONE Stop: 06/21/18 12:42 Piperacillin Sod/Tazobactam (Sod 2.25 gm/ Dextrose) 50 mls @ 100 mls/hr IVPB Q8H-IV [facility]; Protocol Last Admin: 06/20/18 10:53 Dose: 100 mls/hr Sodium Chloride (Normal Saline -) 250 mls @ 3,000 mls/hr IV PRN PRN PRN Reason: Hypotension during Dialysis Stop: 06/21/18 12:41 Insulin Detemir (Levemir Vial) 8 units SQ HS [facility] Last Admin: 06/19/18 22:10 Dose: 8 units Levothyroxine Sodium (Synthroid -) 25 mcg PO DAILY@0700 [facility] Last Admin: 06/20/18 06:26 Dose: 25 mcg Metoprolol Succinate (Toprol Xl -) 150 mg PO DAILY [facility] Last Admin: 06/20/18 10:52 Dose: 150 mg Oxycodone HCl (Roxicodone -) 5 mg PO Q6H PRN PRN Reason: PAIN LEVEL 6-10 Pantoprazole Sodium (Protonix -) 40 mg PO DAILY [facility] Last Admin: 06/20/18 10:51 Dose: 40 mg Sacubitril/Valsartan (Entresto 24 Mg-26 Mg Tablet) 1 tab PO BID [facility] Last Admin: 06/20/18 10:49 Dose: 1 tab Senna (Senna -) 1 tab PO HS [facility] Last Admin: 06/19/18 22:10 Dose: 1 tab - Objective Vital Signs: Vital Signs Temperature 98.9 F 06/20/18 09:30 Pulse Rate 74 06/20/18 09:30 Respiratory Rate 18 06/20/18 09:30 Blood Pressure 150/68 06/20/18 09:30 O2 Sat by Pulse Oximetry (%) 96 06/19/18 21:00 Constitutional: Yes: No Distress, Calm, Thin Neck: Yes: Supple Cardiovascular: Yes: Regular Rate and Rhythm Respiratory: Yes: Regular, CTA Bilaterally Gastrointestinal: Yes: Normal Bowel Sounds, Soft Edema: No Labs: CBC, BMP 06/19/18 08:00 06/19/18 08:00 INR, PTT INR 1.03 (0.83-1.09) 06/14/18 07:10 Problem List - Problems (1) Cellulitis and abscess of foot Code(s): L03.119 - CELLULITIS OF UNSPECIFIED PART OF LIMB; L02.619 - CUTANEOUS ABSCESS OF UNSPECIFIED FOOT (2) Gangrene Code(s): I96 - GANGRENE, NOT ELSEWHERE CLASSIFIED (3) ASHD (arteriosclerotic heart disease) Code(s): I25.10 - ATHSCL HEART DISEASE OF [place] CORONARY ARTERY W/O ANG PCTRS (4) COPD (chronic obstructive pulmonary disease) Code(s): J44.9 - CHRONIC OBSTRUCTIVE PULMONARY DISEASE, UNSPECIFIED Qualifiers: COPD type: unspecified COPD Qualified Code(s): J44.9 - Chronic obstructive pulmonary disease, unspecified (5) Chronic HFrEF (heart failure with reduced ejection fraction) Code(s): I50.22 - CHRONIC SYSTOLIC (CONGESTIVE) HEART FAILURE (6) Diabetes Code(s): E11.9 - TYPE 2 DIABETES MELLITUS WITHOUT COMPLICATIONS Qualifiers: Diabetes mellitus type: type 2 Diabetes mellitus half-way insulin use: without half-way use Diabetes mellitus complication status: with neurologic complications (7) ESRD (end stage renal disease) Code(s): N18.6 - END STAGE RENAL DISEASE (8) HTN (hypertension) Code(s): I10 - ESSENTIAL (PRIMARY) HYPERTENSION Qualifiers: Hypertension type: essential hypertension Qualified Code(s): I10 - Essential (primary) hypertension (9) Hypothyroidism Code(s): E03.9 - HYPOTHYROIDISM, UNSPECIFIED Qualifiers: Hypothyroidism type: unspecified Qualified Code(s): E03.9 - Hypothyroidism , unspecified (10) ICD (implantable cardioverter-defibrillator) in place Code(s): Z95.810 - PRESENCE OF AUTOMATIC (IMPLANTABLE) CARDIAC DEFIBRILLATOR (11) Ischemic dilated cardiomyopathy Code(s): I25.5 - ISCHEMIC CARDIOMYOPATHY; I42.0 - DILATED CARDIOMYOPATHY (12) PVD (peripheral vascular disease) Code(s): I73.9 - PERIPHERAL VASCULAR DISEASE, UNSPECIFIED (13) S/P CABG (coronary artery bypass graft) Code(s): Z95.1 - PRESENCE OF AORTOCORONARY BYPASS GRAFT (14) S/P peripheral artery angioplasty with stent placement Code(s): Z95.820 - PERIPHERAL VASCULAR ANGIOPLASTY STATUS W IMPLANTS AND GRAFTS Assessment/Plan 1. s/p LLE angiogram s/p stent now planned for left great toe amputation 2. Chronic Systolic Heart Failure referable to ischemic dilated cardiomyopathy/ severe LV systolic dysfunction 3. CAD post remote PR post CABG angina pectoris 4. Post prophylactic ICD implant (Medtronic's device) 5. HTN 6. IDDM 7. Hypercholesterolemia 8. PAD with persistent left toe gangrene despite h/o aortogram, LLE angiogram, SFA atherectomy, DCB SFA angioplasty, with sfa stent 9. ESRD on HD, right AVG with steal and hyperkalemia s/p right arm angiogram and DRIL procedure 10. Anemia of CKD 11. Hypothyroidism 12. History of GI bleed PLAN: 1. HD per nephrology, empiric abx per ID 2. Continue Toprol XL 150 qd 3. Continue Entresto 24/26 bid - monitor electrolytes 4. Continue ASA 81 qd and Plavix 75 qd 5. Continue Lipitor 80 qhs 6. DVT and GI prophylaxis 7. Wound care, left great toe amputation tomorrow
--- NOTE | 2018-06-20 20:49 | PN ---
Progress Note (short form) - Note Progress Note: Patient see for pre-op consultation and to discuss consent. vss, tmax 98.5 vsgi to demarcation line of gangrenous left big toe, wbc=10.0, gangarene Discussed at length planned procedure. Consent to be obtained for debridement of bone and soft tissue and amputation left big toe. Patient fully understood all risks benefits and alternatives. All questions were answered. Patient agrees to procedure. NPO after midnight. Scheduled for OR 1pm tomorrow. xray reviewed.
[2018-06-20] MEDS: SENNOSIDES 8.6MG TABLET (FP) PO SCH (21:59)
[2018-06-20] MEDS: ATORVASTATIN CA 80 MG TABLET (FP) PO SCH (21:59)
[2018-06-20] MEDS: INSULIN (LEVEMIR) 100 UNITS/ML UNITS SQ SCH (22:00)
[2018-06-21] MEDS ORDERED: PIPERACILLIN/TAZOBACTAM 2.25 GM VIAL IVPB ONE ×4 (01:26→16:48)
[2018-06-21] MEDS ORDERED: DEXTROSE 5%-WATER - 50 ML IVPB ONE ×3 (01:27→16:48)
[2018-06-21] MEDS: PIPERACILLIN/TAZOB 2.25 GM 2.25 GM in DEXTROSE 5%-WATER - 50 ML IVPB SCH ×3 (01:31→17:04)
[2018-06-21] MEDS: LEVOTHYROXINE NA 25 MCG TABLET (FP) PO SCH (06:32)
[2018-06-21] MEDS: DOCUSATE SODIUM 100 MG CAPSULE (FP) PO SCH ×3 (06:32→22:49)
[2018-06-21 07:45] LABS: HEMATOCRIT 26.9 % (35.4-49); HEMOGLOBIN 9.1 GM/dL (11.7-16.9); MCH 29.6 pg (25.7-33.7); MCHC 33.8 g/dl (32.0-35.9); MEAN CELL VOLUME 87.6 fl (80-96); MEAN PLT VOLUME 9.2 fl (7.5-11.1); PLATELET COUNT 254 K/MM3 (134-434); RBC 3.07 M/mm3 (4.00-5.60); RDW 16.3 % (11.9-15.9); WHITE BLOOD COUNT 9.6 K/mm3 (4.0-10.0)
[2018-06-21] MEDS ORDERED: EPOETIN ALFA 3,000 UNIT, EPOETIN ALFA 2,000 UNIT IVPUSH ONE (08:00)
[2018-06-21] MEDS ORDERED: SODIUM CHLORIDE 250 ML IV PRN (08:00)
[2018-06-21] MEDS ORDERED: HEPARIN NA (PORCINE) 5,000 UNITS/ML 1ML VIAL IVPUSH ONE (08:00)
[2018-06-21 08:22] LABS: ANION GAP 11 MMOL/L (8-16); BLOOD UREA NITROGEN 35 mg/dL (7-18); CALCIUM 7.6 mg/dL (8.5-10.1); CHLORIDE 97 mmol/L (98-107); CO2 29 mmol/L (21-32); CREATININE 6.7 mg/dL (0.7-1.3); GLUCOSE,RANDOM 74 mg/dL (74-106); POTASSIUM 3.6 mmol/L (3.5-5.1); SODIUM 137 mmol/L (136-145)
[2018-06-21] MEDS: SACUBITRIL/VALSARTAN 24 MG-26 MG TABLET PO SCH ×2 (10:45→22:51)
[2018-06-21] MEDS: HEPARIN NA (PORCINE) 5,000 UNITS/ML 1ML VIAL SQ SCH ×2 (10:45→22:39)
[2018-06-21] MEDS: CLOPIDOGREL BISULFATE 75 MG TABLET (FP) PO SCH (10:45)
[2018-06-21] MEDS: ASPIRIN 81 MG CHEWABLE TABLETS PO SCH (10:45)
[2018-06-21] MEDS: PANTOPRAZOLE 40 MG TABLET (FP) PO SCH (10:45)
--- NOTE | 2018-06-21 11:48 | PN ---
Progress Note, Physician History of Present Illness: Planned for amputation of gangrenous left great toe this afternoon. Regarding cardiovascular symptoms, patient denies chest pain, dyspnea, palpitations, near or true syncope, orthopnea, PND or LE edema. - Current Medication List Current Medications: Active Medications Acetaminophen (Tylenol -) 650 mg PO Q4H PRN PRN Reason: PAIN 1-3 Last Admin: 06/20/18 11:33 Dose: 650 mg Aspirin (Asa -) 81 mg PO DAILY [facility] Last Admin: 06/21/18 10:45 Dose: Not Given Atorvastatin Calcium (Lipitor -) 80 mg PO HS [facility] Last Admin: 06/20/18 21:59 Dose: 80 mg Clopidogrel Bisulfate (Plavix -) 75 mg PO DAILY [facility] Last Admin: 06/21/18 10:45 Dose: Not Given Docusate Sodium (Colace -) 100 mg PO TID [facility] Last Admin: 06/21/18 06:32 Dose: 100 mg Heparin Sodium (Porcine) (Heparin -) 5,000 unit SQ BID [facility] Last Admin: 06/21/18 10:45 Dose: Not Given Piperacillin Sod/Tazobactam (Sod 2.25 gm/ Dextrose) 50 mls @ 100 mls/hr IVPB Q8H-IV [facility]; Protocol Last Admin: 06/21/18 10:46 Dose: Not Given Insulin Detemir (Levemir Vial) 8 units SQ [facility] Last Admin: 06/20/18 22:00 Dose: 8 units Levothyroxine Sodium (Synthroid -) 25 mcg PO DAILY@0700 [facility] Last Admin: 06/21/18 06:32 Dose: 25 mcg Metoprolol Succinate (Toprol Xl -) 150 mg PO DAILY [facility] Last Admin: 06/21/18 11:30 Dose: 150 mg Oxycodone HCl (Roxicodone -) 5 mg PO Q6H PRN PRN Reason: PAIN LEVEL 6-10 Last Admin: 06/21/18 11:35 Dose: 5 mg Pantoprazole Sodium (Protonix -) 40 mg PO DAILY [facility] Last Admin: 06/21/18 10:45 Dose: Not Given Sacubitril/Valsartan (Entresto 24 Mg-26 Mg Tablet) 1 tab PO BID [facility] Last Admin: 06/21/18 10:45 Dose: Not Given Senna (Senna -) 1 tab PO [facility] Last Admin: 06/20/18 21:59 Dose: 1 tab - Objective Vital Signs: Vital Signs Temperature 98.3 F 06/21/18 07:15 Pulse Rate 73 06/21/18 10:55 Respiratory Rate 18 06/21/18 10:55 Blood Pressure 167/73 06/21/18 10:55 O2 Sat by Pulse Oximetry (%) 99 06/20/18 21:00 Constitutional: Yes: No Distress, Calm Neck: Yes: Supple Cardiovascular: Yes: Regular Rate and Rhythm Respiratory: Yes: Regular, CTA Bilaterally Gastrointestinal: Yes: Normal Bowel Sounds, Soft Edema: No Labs: CBC, BMP 06/21/18 07:20 06/21/18 07:20 INR, PTT INR 1.03 (0.83-1.09) 06/14/18 07:10 Problem List - Problems (1) Cellulitis and abscess of foot Code(s): L03.119 - CELLULITIS OF UNSPECIFIED PART OF LIMB; L02.619 - CUTANEOUS ABSCESS OF UNSPECIFIED FOOT (2) Gangrene Code(s): I96 - GANGRENE, NOT ELSEWHERE CLASSIFIED (3) ASHD (arteriosclerotic heart disease) Code(s): I25.10 - ATHSCL HEART DISEASE OF [place] CORONARY ARTERY W/O ANG PCTRS (4) COPD (chronic obstructive pulmonary disease) Code(s): J44.9 - CHRONIC OBSTRUCTIVE PULMONARY DISEASE, UNSPECIFIED Qualifiers: COPD type: unspecified COPD Qualified Code(s): J44.9 - Chronic obstructive pulmonary disease, unspecified (5) Chronic HFrEF (heart failure with reduced ejection fraction) Code(s): I50.22 - CHRONIC SYSTOLIC (CONGESTIVE) HEART FAILURE (6) Diabetes Code(s): E11.9 - TYPE 2 DIABETES MELLITUS WITHOUT COMPLICATIONS Qualifiers: Diabetes mellitus type: type 2 Diabetes mellitus long-term insulin use: without moth exterminator use Diabetes mellitus complication status: with neurologic complications (7) ESRD (end stage renal disease) Code(s): N18.6 - END STAGE RENAL DISEASE (8) HTN (hypertension) Code(s): I10 - ESSENTIAL (PRIMARY) HYPERTENSION Qualifiers: Hypertension type: essential hypertension Qualified Code(s): I10 - Essential (primary) hypertension (9) Hypothyroidism Code(s): E03.9 - HYPOTHYROIDISM, UNSPECIFIED Qualifiers: Hypothyroidism type: unspecified Qualified Code(s): E03.9 - Hypothyroidism , unspecified (10) ICD (implantable cardioverter-defibrillator) in place Code(s): Z95.810 - PRESENCE OF AUTOMATIC (IMPLANTABLE) CARDIAC DEFIBRILLATOR (11) Ischemic dilated cardiomyopathy Code(s): I25.5 - ISCHEMIC CARDIOMYOPATHY; I42.0 - DILATED CARDIOMYOPATHY (12) PVD (peripheral vascular disease) Code(s): I73.9 - PERIPHERAL VASCULAR DISEASE, UNSPECIFIED (13) S/P CABG (coronary artery bypass graft) Code(s): Z95.1 - PRESENCE OF AORTOCORONARY BYPASS GRAFT (14) S/P peripheral artery angioplasty with stent placement Code(s): Z95.820 - PERIPHERAL VASCULAR ANGIOPLASTY STATUS W IMPLANTS AND GRAFTS Assessment/Plan 1. s/p LLE angiogram s/p stent now planned for left great toe amputation 2. Chronic Systolic Heart Failure referable to ischemic dilated cardiomyopathy/ severe LV systolic dysfunction 3. CAD post remote [place] post CABG angina pectoris 4. Post prophylactic ICD implant (Medtr[employer]'s device) 5. HTN 6. IDDM 7. Hypercholesterolemia 8. PAD with persistent left toe gangrene despite h/o aortogram, LLE angiogram, SFA atherectomy, DCB SFA angioplasty, with sfa stent 9. ESRD on HD, right AVG with steal and hyperkalemia s/p right arm angiogram and DRIL procedure 10. Anemia of CKD 11. Hypothyroidism 12. History of GI bleed PLAN: 1. HD per nephrology, empiric abx per ID 2. Continue Toprol XL 150 qd 3. Continue Entresto 24/ bid - monitor electrolytes 4. Continue ASA 81 qd and Plavix 75 qd 5. Continue Lipitor 80 qhs 6. DVT and GI prophylaxis 7. Wound care, left great toe amputation this afternoon
[2018-06-21] MEDS ORDERED: EPOETIN ALFA 2,000 UNIT/1 ML VIAL IVPUSH ONE (12:41)
--- NOTE | 2018-06-21 14:05 | PN ---
Progress Note, Physician History of Present Illness: Pt seen and examined at bedside. He is going for a toe amputation today. - Current Medication List Current Medications: Active Medications Acetaminophen (Tylenol -) 650 mg PO Q4H PRN PRN Reason: PAIN 1-3 Last Admin: 06/20/18 11:33 Dose: 650 mg Aspirin (Asa -) 81 mg PO DAILY [facility] Last Admin: 06/21/18 10:45 Dose: Not Given Atorvastatin Calcium (Lipitor -) 80 mg PO HS [facility] Last Admin: 06/20/18 21:59 Dose: 80 mg Clopidogrel Bisulfate (Plavix -) 75 mg PO DAILY [facility] Last Admin: 06/21/18 10:45 Dose: Not Given Docusate Sodium (Colace -) 100 mg PO TID [facility] Last Admin: 06/21/18 13:48 Dose: Not Given Heparin Sodium (Porcine) (Heparin -) 5,000 unit SQ BID [facility] Last Admin: 06/21/18 10:45 Dose: Not Given Piperacillin Sod/Tazobactam (Sod 2.25 gm/ Dextrose) 50 mls @ 100 mls/hr IVPB Q8H-IV [facility]; Protocol Last Admin: 06/21/18 10:46 Dose: Not Given Insulin Detemir (Levemir Vial) 8 units SQ HS [facility] Last Admin: 06/20/18 22:00 Dose: 8 units Levothyroxine Sodium (Synthroid -) 25 mcg PO DAILY@0700 [facility] Last Admin: 06/21/18 06:32 Dose: 25 mcg Metoprolol Succinate (Toprol Xl -) 150 mg PO DAILY [facility] Last Admin: 06/21/18 11:30 Dose: 150 mg Oxycodone HCl (Roxicodone -) 5 mg PO Q6H PRN PRN Reason: PAIN LEVEL 6-10 Last Admin: 06/21/18 11:35 Dose: 5 mg Pantoprazole Sodium (Protonix -) 40 mg PO DAILY [facility] Last Admin: 06/21/18 10:45 Dose: Not Given Sacubitril/Valsartan (Entresto 24 Mg-26 Mg Tablet) 1 tab PO BID [facility] Last Admin: 06/21/18 10:45 Dose: Not Given Senna (Senna -) 1 tab PO HS [facility] Last Admin: 06/20/18 21:59 Dose: 1 tab - Objective Vital Signs: Vital Signs Temperature 98.1 F 06/21/18 11:58 Pulse Rate 79 06/21/18 11:58 Respiratory Rate 20 06/21/18 11:58 Blood Pressure 137/69 06/21/18 11:58 O2 Sat by Pulse Oximetry (%) 97 06/21/18 11:58 Constitutional: Yes: Calm Eyes: Yes: Conjunctiva Clear HENT: Yes: Atraumatic Neck: Yes: Supple Cardiovascular: Yes: S1, S2 Respiratory: Yes: CTA Bilaterally Gastrointestinal: Yes: Normal Bowel Sounds, Soft Genitourinary: Yes: WNL Edema: No Wound/Incision: Yes: Dressing Dry and Intact Neurological: Yes: Oriented Psychiatric: Yes: Oriented Labs: CBC, BMP 06/21/18 07:20 06/21/18 07:20 INR, PTT INR 1.03 (0.83-1.09) 06/14/18 07:10 Problem List - Problems (1) Cellulitis Code(s): L03.90 - CELLULITIS, UNSPECIFIED (2) ESRD (end stage renal disease) on dialysis Code(s): N18.6 - END STAGE RENAL DISEASE; Z99.2 - DEPENDENCE ON RENAL DIALYSIS (3) Gangrene Code(s): I96 - GANGRENE, NOT ELSEWHERE CLASSIFIED (4) COPD (chronic obstructive pulmonary disease) Code(s): J44.9 - CHRONIC OBSTRUCTIVE PULMONARY DISEASE, UNSPECIFIED Qualifiers: COPD type: unspecified COPD Qualified Code(s): J44.9 - Chronic obstructive pulmonary disease, unspecified Assessment/Plan Current Medications Generic Name Dose Route Start Last Admin Trade Name Freq PRN Reason Stop Dose Admin Acetaminophen 650 mg 06/15/18 18:39 06/20/18 11:33 Tylenol - PO 650 mg Q4H PRN Administration PAIN 1-3 Aspirin 81 mg 06/16/18 10:00 06/21/18 10:45 Asa - PO Not Given DAILY [facility] Atorvastatin Calcium 80 mg 06/15/18 22:00 06/20/18 21:59 Lipitor - PO 80 mg HS [facility] Administration Clopidogrel Bisulfate 75 mg 06/16/18 10:00 06/21/18 10:45 Plavix - PO Not Given DAILY [facility] Docusate Sodium 100 mg 06/20/18 14:00 06/21/18 13:48 Colace - PO Not Given TID [facility] Heparin Sodium (Porcine) 5,000 unit 06/15/18 22:00 06/21/18 10:45 Heparin - SQ Not Given BID [facility] Piperacillin Sod/Tazobactam 50 mls @ 100 mls/hr 06/16/18 02:00 06/21/18 10:46 Sod 2.25 gm/ Dextrose IVPB Not Given Q8H-IV [facility] Protocol Insulin Detemir 8 units 06/15/18 22:00 06/20/18 22:00 Levemir Vial SQ 8 units HS [facility] Administration Levothyroxine Sodium 25 mcg 06/16/18 07:00 06/21/18 06:32 Synthroid - PO 25 mcg DAILY@0700 [facility] Administration Metoprolol Succinate 150 mg 06/16/18 10:00 06/21/18 11:30 Toprol Xl - PO 150 mg DAILY [facility] Administration Oxycodone HCl 5 mg 06/20/18 11:39 06/21/18 11:35 Roxicodone - PO 5 mg Q6H PRN Administration PAIN LEVEL 6-10 Pantoprazole Sodium 40 mg 06/16/18 10:00 06/21/18 10:45 Protonix - PO Not Given DAILY [facility] Sacubitril/Valsartan 1 tab 06/15/18 22:00 06/21/18 10:45 Entresto 24 Mg-26 Mg Tablet PO Not Given BID [facility] Senna 1 tab 06/15/18 22:00 06/20/18 21:59 Senna - PO 1 tab HS [facility] Administration Impression 1. ESRD 2. toe gangrene 3. DM 4. CAD 5. PVD 6. DFU 7. anemia 8. hx steal syndrome s/p DRIL procedure 9. CHF 10. constipation Plan - HD today - pt going for amputation - cont abx per iD - cont wound care, further recs by podiatry after surgery - renal diet - will follow Dr Dove
[2018-06-21] MEDS ORDERED: MIDAZOLAM HCL 2 MG/2 ML SINGLE DOSE VIAL ONE (14:15)
[2018-06-21] MEDS ORDERED: LIDOCAINE HCL 1%, 10 MG/ML (50 mL VIAL) INF ONE (14:20)
[2018-06-21] MEDS ORDERED: BUPIVACAINE HCL/PF 0.25% (2.5MG/ML) 10 ML VIAL IJ ONE (14:20)
--- NOTE | 2018-06-21 17:31 | OP ---
Operative Note - Note: Operative Date: 06/21/18 Pre-Operative Diagnosis: Gangarene left big toe Operation: Amputation left big toe Findings: gangarene Post-Operative Diagnosis: Same as Pre-op Surgeon: Deandra Briceño Director Of Fundraising: Clinton Grewal Anesthesia: Local, MAC Estimated Blood Loss (mls): 25 Instrument used (Debridements only): scalpel Operative Report Dictated: Yes
--- NOTE | 2018-06-21 17:44 | PN ---
Progress Note (short form) - Note Progress Note: awaiting amputation no distress\ Vitals noted S1 S2 RRR Lungs clear Abd- soft, NT No edema PLAN\ for amputation iv antibiotics pain control Problem List - Problems (1) Gangrene Code(s): I96 - GANGRENE, NOT ELSEWHERE CLASSIFIED (2) Infection of toe Code(s): L08.9 - LOCAL INFECTION OF THE SKIN AND SUBCUTANEOUS TISSUE, UNSP (3) ASHD (arteriosclerotic heart disease) Code(s): I25.10 - ATHSCL HEART DISEASE OF [place] CORONARY ARTERY W/O ANG PCTRS (4) Anemia Code(s): D64.9 - ANEMIA, UNSPECIFIED (5) CHF (congestive heart failure), NYHA class IV Code(s): I50.9 - HEART FAILURE, UNSPECIFIED Qualifiers: Congestive heart failure type: systolic Congestive heart failure chronicity : chronic Qualified Code(s): I50.22 - Chronic systolic (congestive) heart failure
[2018-06-21] MEDS: oxyCODONE HCL 5 MG TABLET PO PRN (19:57)
--- NOTE | 2018-06-21 21:41 | OP ---
DATE OF OPERATION: 06/21/2018 A 72-year-old male. SURGEON: Deandra Briceño DPM ICT CUSTOMER SUPPORT OFFICER: Dr. Uri DPM PREPROCEDURE DIAGNOSIS: Left hallux gangrene and cellulitis of left foot. POSTPROCEDURE DIAGNOSIS: Left hallux gangrene and cellulitis of left foot. OPERATION: Left hallux debridement and amputation. PATHOLOGY: Left foot wound culture. HEMOSTASIS: None. ESTIMATED BLOOD LOSS: 25 mL. MATERIALS: A 3-0 nylon. DRESSINGS: Betadine-soaked Adaptic, 4 x 4 gauze, ABD pads, Kerlix, and Uriel bandage. INJECTIONS: 18 mL 1:1 mixture of 1% lidocaine plain and 0.5% Marcaine plain preoperative and 8 mL of 1% lidocaine lidocaine plain intraoperative. DESCRIPTION OF PROCEDURE: The patient was both verbally and visually identified in the preoperative holding area. Informed consent was obtained and placed in the chart. All of the risks, benefits, complications were explained to the patient to their satisfaction. The patient was then brought to the operating room and placed on the operating table in the supine position. After adequate IV sedation, a local infiltration block utilizing 18 mL of 1:1 mixture of 1% lidocaine plain and 0.5% Marcaine plain was administered to the left foot. The left foot was then prepped and draped in the usual aseptic fashion. Attention was then directed to the left hallux where dry gangrene was noted involving the joint DIPJ and mcc toward the proximal phalanx of the hallux. It was dry gangrene. The fish mouth incision was made around the base of the proximal phalnx of the left hallux. Incision was deepened to the proximal phalanx of the left hallux, the bone. Utilizing sharp and blunt dissection to avoid any vital structures, proximal phalanx of the left hallux was partially resected at this time utilizing a double action bone cutter. Partially resected left hallux was evaluated, and there was noted to be necrotic and nonviable tissue around the proximal resected hallux as well as the bone quality at the partially resected hallux was noted to be nonviable and necrotic. The remaining of the base of the proximal phalanx was sharply resected at the level of 1st metatarsophalangeal joint and was removed from the operative field. Upon examination of the 1st metatarsal head was noted to be viable without necrosis, fibrosis, or any sign of bone infection over there. At this time, deep wound culture was taken and sent to Pathology. At this time, the area was irrigated normal saline solution mixed with gentamicin antibiotic infused. There was good bleeding noted at this time and then the area now is packed with iodoform packing strips and then the skin was reapproximated with 3-0 nylon in simple suture fashion. The surgical site was then dressed with a Betadine-soaked Adaptic and covered with a light compressive dressing consisting of 4 x 4 gauze, ABD pads, and Kerlix. The area was secured with Uriel bandage. The patient tolerated the procedure and anesthesia well and left the operating room to the recovery room in good condition with vital signs stable. Neurovascular structures were intact. Capillary filling time was less than 3 seconds all exposed digits of the left foot. PONCHO Taveras/[id number] DIMITRIOS
[2018-06-21] MEDS ORDERED: INSULIN GLARGINE HUM REC ANLOG 16 UNIT SQ SCH (22:00)
[2018-06-21] MEDS ORDERED: [UNRECOGNIZED DRUG - OTHER] SQ SCH (22:00)
[2018-06-21] MEDS ORDERED: PT OWN MED DRAWER 7, Y5N ONE (22:01)
[2018-06-21 22:29] LABS: BASO % 0.8 % (0-2.0); HEMATOCRIT 28.4 % (35.4-49); HEMOGLOBIN 9.4 GM/dL (11.7-16.9); LYMPH % 5.3 % (8-40); MCH 29.4 pg (25.7-33.7); MCHC 33.2 g/dl (32.0-35.9); MEAN CELL VOLUME 88.6 fl (80-96); MEAN PLT VOLUME 9.2 fl (7.5-11.1); MONO % 7.4 % (3.8-10.2); NEUT % 83.5 % (42.8-82.8); PLATELET COUNT 264 K/MM3 (134-434); RDW 16.3 % (11.9-15.9); WHITE BLOOD COUNT 10.9 K/mm3 (4.0-10.0)
[2018-06-21] MEDS: ATORVASTATIN CA 80 MG TABLET (FP) PO SCH (22:39)
[2018-06-21] MEDS: MORPHINE SULFATE 2 MG/ML VIAL IVPUSH PRN (22:40)
[2018-06-21] MEDS: INSULIN (LEVEMIR) 100 UNITS/ML UNITS SQ SCH (22:48)
[2018-06-21] MEDS: SENNOSIDES 8.6MG TABLET (FP) PO SCH (22:49)
[2018-06-22] MEDS ORDERED: PT OWN MED DRAWER 7, Y5N ONE ×2 (00:33→10:37)
[2018-06-22] MEDS ORDERED: PIPERACILLIN/TAZOBACTAM 2.25 GM VIAL IVPB ONE ×3 (00:33→16:55)
[2018-06-22] MEDS ORDERED: DEXTROSE 5%-WATER - 50 ML IVPB ONE ×3 (00:33→16:55)
[2018-06-22] MEDS: PIPERACILLIN/TAZOB 2.25 GM 2.25 GM in DEXTROSE 5%-WATER - 50 ML IVPB SCH ×3 (02:11→17:00)
[2018-06-22] MEDS: oxyCODONE HCL 5 MG TABLET PO PRN ×2 (02:13→10:40)
[2018-06-22] MEDS: MORPHINE SULFATE 2 MG/ML VIAL IVPUSH PRN (03:38)
[2018-06-22] MEDS ORDERED: MORPHINE SULFATE 2 MG/ML VIAL IVPUSH ONE (03:45)
[2018-06-22] MEDS: LEVOTHYROXINE NA 25 MCG TABLET (FP) PO SCH (06:51)
[2018-06-22] MEDS: DOCUSATE SODIUM 100 MG CAPSULE (FP) PO SCH ×3 (06:51→22:44)
[2018-06-22] MEDS: ACETAMINOPHEN 325 MG TABLET (FP) PO PRN (06:51)
[2018-06-22] MEDS ORDERED: INSULIN (LEVEMIR) 100 UNITS/ML UNITS SQ ONE (07:44)
--- NOTE | 2018-06-22 08:23 | PN ---
Progress Note (short form) - Note Progress Note: Anesthesia Post op Pt seen and examined S;Alert and awake comfortable O: Vital Signs Temperature 99.2 F 06/22/18 05:00 Pulse Rate 80 06/22/18 05:00 Respiratory Rate 20 06/22/18 05:00 Blood Pressure 139/78 06/22/18 05:00 O2 Sat by Pulse Oximetry (%) 99 06/21/18 21:00 CBC, BMP 06/21/18 22:00 06/21/18 07:20 A/P Current Active Problems Cellulitis (Acute) Cellulitis and abscess of foot (Acute) ESRD (end stage renal disease) on dialysis (Acute) Gangrene (Acute) Infection of toe (Acute) s/p amputation of left toe Doing well post op Continue current care Roberth Aldridge MD
[2018-06-22] MEDS: CLOPIDOGREL BISULFATE 75 MG TABLET (FP) PO SCH (10:39)
[2018-06-22] MEDS: ASPIRIN 81 MG CHEWABLE TABLETS PO SCH (10:39)
[2018-06-22] MEDS: PANTOPRAZOLE 40 MG TABLET (FP) PO SCH (10:40)
[2018-06-22] MEDS: SACUBITRIL/VALSARTAN 24 MG-26 MG TABLET PO SCH ×2 (10:42→22:43)
[2018-06-22] MEDS: HEPARIN NA (PORCINE) 5,000 UNITS/ML 1ML VIAL SQ SCH ×2 (10:42→22:44)
--- NOTE | 2018-06-22 11:13 | PN ---
Progress Note, Physician History of Present Illness: No complaints post amputation of gangrenous left great toe. Patient denies chest pain, dyspnea, palpitations, near or true syncope, orthopnea, PND or LE edema. - Current Medication List Current Medications: Active Medications Acetaminophen (Tylenol -) 650 mg PO Q4H PRN PRN Reason: PAIN 1-3 Last Admin: 06/22/18 06:51 Dose: 650 mg Aspirin (Asa -) 81 mg PO DAILY [facility] Last Admin: 06/22/18 10:39 Dose: 81 mg Atorvastatin Calcium (Lipitor -) 80 mg PO HS [facility] Last Admin: 06/21/18 22:39 Dose: 80 mg Clopidogrel Bisulfate (Plavix -) 75 mg PO DAILY [facility] Last Admin: 06/22/18 10:39 Dose: 75 mg Docusate Sodium (Colace -) 100 mg PO TID [facility] Last Admin: 06/22/18 06:51 Dose: 100 mg Heparin Sodium (Porcine) (Heparin -) 5,000 unit SQ BID [facility] Last Admin: 06/22/18 10:42 Dose: 5,000 unit Piperacillin Sod/Tazobactam (Sod 2.25 gm/ Dextrose) 50 mls @ 100 mls/hr IVPB Q8H-IV [facility]; Protocol Last Admin: 06/22/18 10:40 Dose: 100 mls/hr Insulin Detemir (Levemir Vial) 8 units SQ [facility] Last Admin: 06/21/18 22:48 Dose: 8 units Levothyroxine Sodium (Synthroid -) 25 mcg PO DAILY@0700 [facility] Last Admin: 06/22/18 06:51 Dose: 25 mcg Metoprolol Succinate (Toprol Xl -) 150 mg PO DAILY [facility] Last Admin: 06/22/18 10:41 Dose: 150 mg Oxycodone HCl (Roxicodone -) 5 mg PO Q6H PRN PRN Reason: PAIN LEVEL 6-10 Last Admin: 06/22/18 10:40 Dose: 5 mg Pantoprazole Sodium (Protonix -) 40 mg PO DAILY [facility] Last Admin: 06/22/18 10:40 Dose: 40 mg Sacubitril/Valsartan (Entresto 24 Mg-26 Mg Tablet) 1 tab PO BID [facility] Last Admin: 06/22/18 10:42 Dose: 1 tab Senna (Senna -) 1 tab PO [facility] Last Admin: 06/21/18 22:49 Dose: 1 tab - Objective Vital Signs: Vital Signs Temperature 99.2 F 06/22/18 05:00 Pulse Rate 80 06/22/18 05:00 Respiratory Rate 20 06/22/18 05:00 Blood Pressure 139/78 06/22/18 05:00 O2 Sat by Pulse Oximetry (%) 99 06/21/18 21:00 Constitutional: Yes: No Distress, Calm, Thin Neck: Yes: Supple Cardiovascular: Yes: Regular Rate and Rhythm Respiratory: Yes: Regular, Diminished Gastrointestinal: Yes: Normal Bowel Sounds, Soft Edema: No Wound/Incision: Yes: Dressing Dry and Intact Labs: CBC, BMP 06/21/18 22:00 06/21/18 07:20 INR, PTT INR 1.03 (0.83-1.09) 06/14/18 07:10 Problem List - Problems (1) Cellulitis and abscess of foot Code(s): L03.119 - CELLULITIS OF UNSPECIFIED PART OF LIMB; L02.619 - CUTANEOUS ABSCESS OF UNSPECIFIED FOOT (2) Gangrene Code(s): I96 - GANGRENE, NOT ELSEWHERE CLASSIFIED (3) ASHD (arteriosclerotic heart disease) Code(s): I25.10 - ATHSCL HEART DISEASE OF [place] CORONARY ARTERY W/O ANG PCTRS (4) COPD (chronic obstructive pulmonary disease) Code(s): J44.9 - CHRONIC OBSTRUCTIVE PULMONARY DISEASE, UNSPECIFIED Qualifiers: COPD type: unspecified COPD Qualified Code(s): J44.9 - Chronic obstructive pulmonary disease, unspecified (5) Chronic HFrEF (heart failure with reduced ejection fraction) Code(s): I50.22 - CHRONIC SYSTOLIC (CONGESTIVE) HEART FAILURE (6) Diabetes Code(s): E11.9 - TYPE 2 DIABETES MELLITUS WITHOUT COMPLICATIONS Qualifiers: Diabetes mellitus type: type 2 Diabetes mellitus assisted insulin use: without deportation examiner use Diabetes mellitus complication status: with neurologic complications (7) ESRD (end stage renal disease) Code(s): N18.6 - END STAGE RENAL DISEASE (8) HTN (hypertension) Code(s): I10 - ESSENTIAL (PRIMARY) HYPERTENSION Qualifiers: Hypertension type: essential hypertension Qualified Code(s): I10 - Essential (primary) hypertension (9) Hypothyroidism Code(s): E03.9 - HYPOTHYROIDISM, UNSPECIFIED Qualifiers: Hypothyroidism type: unspecified Qualified Code(s): E03.9 - Hypothyroidism , unspecified (10) ICD (implantable cardioverter-defibrillator) in place Code(s): Z95.810 - PRESENCE OF AUTOMATIC (IMPLANTABLE) CARDIAC DEFIBRILLATOR (11) Ischemic dilated cardiomyopathy Code(s): I25.5 - ISCHEMIC CARDIOMYOPATHY; I42.0 - DILATED CARDIOMYOPATHY (12) PVD (peripheral vascular disease) Code(s): I73.9 - PERIPHERAL VASCULAR DISEASE, UNSPECIFIED (13) S/P CABG (coronary artery bypass graft) Code(s): Z95.1 - PRESENCE OF AORTOCORONARY BYPASS GRAFT (14) S/P peripheral artery angioplasty with stent placement Code(s): Z95.820 - PERIPHERAL VASCULAR ANGIOPLASTY STATUS W IMPLANTS AND GRAFTS Assessment/Plan 1. s/p LLE angiogram s/p stent s/p gangrenous left great toe amputation 2. Chronic Systolic Heart Failure referable to ischemic dilated cardiomyopathy/ severe LV systolic dysfunction 3. CAD post remote [place] post CABG angina pectoris 4. Post prophylactic ICD implant (Medtronic's device) 5. HTN 6. IDDM 7. Hypercholesterolemia 8. PAD with persistent left toe gangrene despite h/o aortogram, LLE angiogram, SFA atherectomy, DCB SFA angioplasty, with sfa stent 9. ESRD on HD, right AVG with steal and hyperkalemia s/p right arm angiogram and DRIL procedure 10. Anemia of CKD 11. Hypothyroidism 12. History of GI bleed PLAN: 1. HD per nephrology, empiric abx per ID 2. Continue Toprol XL 150 qd 3. Continue Entresto 24/ bid - monitor electrolytes 4. Continue ASA 81 qd and Plavix 75 qd 5. Continue Lipitor 80 qhs 6. DVT and GI prophylaxis 7. Wound care, complete empiric abx course
[2018-06-22] MEDS ORDERED: SODIUM CHLORIDE 250 ML IV PRN (12:10)
--- NOTE | 2018-06-22 12:10 | PN ---
Progress Note, Physician History of Present Illness: Pt seen and examined at bedside. He had the toe amputation yesterday. He is awake and alert. - Current Medication List Current Medications: Active Medications Acetaminophen (Tylenol -) 650 mg PO Q4H PRN PRN Reason: PAIN 1-3 Last Admin: 06/22/18 06:51 Dose: 650 mg Aspirin (Asa -) 81 mg PO DAILY [facility] Last Admin: 06/22/18 10:39 Dose: 81 mg Atorvastatin Calcium (Lipitor -) 80 mg PO HS [facility] Last Admin: 06/21/18 22:39 Dose: 80 mg Clopidogrel Bisulfate (Plavix -) 75 mg PO DAILY [facility] Last Admin: 06/22/18 10:39 Dose: 75 mg Docusate Sodium (Colace -) 100 mg PO TID [facility] Last Admin: 06/22/18 06:51 Dose: 100 mg Heparin Sodium (Porcine) (Heparin -) 5,000 unit SQ BID [facility] Last Admin: 06/22/18 10:42 Dose: 5,000 unit Piperacillin Sod/Tazobactam (Sod 2.25 gm/ Dextrose) 50 mls @ 100 mls/hr IVPB Q8H-IV [facility]; Protocol Last Admin: 06/22/18 10:40 Dose: 100 mls/hr Insulin Detemir (Levemir Vial) 8 units SQ [facility] Last Admin: 06/21/18 22:48 Dose: 8 units Levothyroxine Sodium (Synthroid -) 25 mcg PO DAILY@0700 [facility] Last Admin: 06/22/18 06:51 Dose: 25 mcg Metoprolol Succinate (Toprol Xl -) 150 mg PO DAILY [facility] Last Admin: 06/22/18 10:41 Dose: 150 mg Oxycodone HCl (Roxicodone -) 5 mg PO Q6H PRN PRN Reason: PAIN LEVEL 6-10 Last Admin: 06/22/18 10:40 Dose: 5 mg Pantoprazole Sodium (Protonix -) 40 mg PO DAILY [facility] Last Admin: 06/22/18 10:40 Dose: 40 mg Sacubitril/Valsartan (Entresto 24 Mg-26 Mg Tablet) 1 tab PO BID [facility] Last Admin: 06/22/18 10:42 Dose: 1 tab Senna (Senna -) 1 tab PO [facility] Last Admin: 06/21/18 22:49 Dose: 1 tab - Objective Vital Signs: Vital Signs Temperature 98.6 F 06/22/18 08:00 Pulse Rate 81 06/22/18 08:00 Respiratory Rate 20 06/22/18 08:00 Blood Pressure 143/60 06/22/18 08:00 O2 Sat by Pulse Oximetry (%) 99 06/22/18 08:00 Constitutional: Yes: Calm Eyes: Yes: Conjunctiva Clear HENT: Yes: Atraumatic Neck: Yes: Supple Cardiovascular: Yes: S1, S2 Respiratory: Yes: CTA Bilaterally Gastrointestinal: Yes: Soft Genitourinary: Yes: WNL Edema: No Wound/Incision: Yes: Dressing Dry and Intact Neurological: Yes: Oriented Psychiatric: Yes: Oriented Labs: CBC, BMP 06/21/18 22:00 06/21/18 07:20 INR, PTT INR 1.03 (0.83-1.09) 06/14/18 07:10 Problem List - Problems (1) Cellulitis Code(s): L03.90 - CELLULITIS, UNSPECIFIED (2) ESRD (end stage renal disease) on dialysis Code(s): N18.6 - END STAGE RENAL DISEASE; Z99.2 - DEPENDENCE ON RENAL DIALYSIS (3) Gangrene Code(s): I96 - GANGRENE, NOT ELSEWHERE CLASSIFIED (4) COPD (chronic obstructive pulmonary disease) Code(s): J44.9 - CHRONIC OBSTRUCTIVE PULMONARY DISEASE, UNSPECIFIED Qualifiers: COPD type: unspecified COPD Qualified Code(s): J44.9 - Chronic obstructive pulmonary disease, unspecified Assessment/Plan Current Medications Generic Name Dose Route Start Last Admin Trade Name Freq PRN Reason Stop Dose Admin Acetaminophen 650 mg 06/21/18 15:55 06/22/18 06:51 Tylenol - PO 650 mg Q4H PRN Administration PAIN 1-3 Aspirin 81 mg 06/22/18 10:00 06/22/18 10:39 Asa - PO 81 mg DAILY [facility] Administration Atorvastatin Calcium 80 mg 06/21/18 22:00 06/21/18 22:39 Lipitor - PO 80 mg HS [facility] Administration Clopidogrel Bisulfate 75 mg 06/22/18 10:00 06/22/18 10:39 Plavix - PO 75 mg DAILY [facility] Administration Docusate Sodium 100 mg 06/21/18 22:00 06/22/18 06:51 Colace - PO 100 mg TID [facility] Administration Heparin Sodium (Porcine) 5,000 unit 06/21/18 22:00 06/22/18 10:42 Heparin - SQ 5,000 unit BID [facility] Administration Piperacillin Sod/Tazobactam 50 mls @ 100 mls/hr 06/21/18 18:00 06/22/18 10:40 Sod 2.25 gm/ Dextrose IVPB 100 mls/hr Q8H-IV [facility] Administration Protocol Insulin Detemir 8 units 06/21/18 22:00 06/21/18 22:48 Levemir Vial SQ 8 units HS [facility] Administration Levothyroxine Sodium 25 mcg 06/22/18 07:00 06/22/18 06:51 Synthroid - PO 25 mcg DAILY@0700 [facility] Administration Metoprolol Succinate 150 mg 06/22/18 10:00 06/22/18 10:41 Toprol Xl - PO 150 mg DAILY [facility] Administration Oxycodone HCl 5 mg 06/21/18 15:55 06/22/18 10:40 Roxicodone - PO 5 mg Q6H PRN Administration PAIN LEVEL 6-10 Pantoprazole Sodium 40 mg 06/22/18 10:00 06/22/18 10:40 Protonix - PO 40 mg DAILY [facility] Administration Sacubitril/Valsartan 1 tab 06/21/18 22:00 06/22/18 10:42 Entresto 24 Mg-26 Mg Tablet PO 1 tab BID [facility] Administration Senna 1 tab 06/21/18 22:00 06/21/18 22:49 Senna - PO 1 tab HS [facility] Administration Impression 1. ESRD 2. toe gangrene 3. DM 4. CAD 5. PVD 6. DFU 7. anemia 8. hx steal syndrome s/p DRIL procedure 9. CHF 10. constipation Plan - HD in am - cont wound care - podiatry follow up - cont abx per iD - renal diet - will follow Dr Dove
--- NOTE | 2018-06-22 12:11 | PN ---
Progress Note (short form) - Note Progress Note: pt seen/ examined. pod # 1 s/p great toe amputation reports periods of shooting pain sometimes. awake/ comfortable Vital Signs Temp 98.6 F 06/22/18 08:00 Pulse 81 06/22/18 08:00 Resp 20 06/22/18 08:00 BP 143/60 06/22/18 08:00 Pulse Ox 99 06/22/18 08:00 Intake & Output 06/21/18 06/22/18 06/22/18 23:59 11:59 23:59 Intake Total 350 50 Output Total 25 Balance 325 50 Weight 141 lb Intake: IV 100 IVPB 50 50 Oral 200 Output: Urine 0 Estimated Blood Loss 25 Other: Voiding Method Urinal Urinal Bowel Movement No Weight Measurement Method Built in [facility] Active Medications Acetaminophen (Tylenol -) 650 mg PO Q4H PRN PRN Reason: PAIN 1-3 Last Admin: 06/22/18 06:51 Dose: 650 mg Aspirin (Asa -) 81 mg PO DAILY [facility] Last Admin: 06/22/18 10:39 Dose: 81 mg Atorvastatin Calcium (Lipitor -) 80 mg PO HS [facility] Last Admin: 06/21/18 22:39 Dose: 80 mg Clopidogrel Bisulfate (Plavix -) 75 mg PO DAILY [facility] Last Admin: 06/22/18 10:39 Dose: 75 mg Docusate Sodium (Colace -) 100 mg PO TID [facility] Last Admin: 06/22/18 06:51 Dose: 100 mg Heparin Sodium (Porcine) (Heparin -) 5,000 unit SQ BID [facility] Last Admin: 06/22/18 10:42 Dose: 5,000 unit Piperacillin Sod/Tazobactam (Sod 2.25 gm/ Dextrose) 50 mls @ 100 mls/hr IVPB Q8H-IV [facility]; Protocol Last Admin: 06/22/18 10:40 Dose: 100 mls/hr Insulin Detemir (Levemir Vial) 8 units SQ [facility] Last Admin: 06/21/18 22:48 Dose: 8 units Levothyroxine Sodium (Synthroid -) 25 mcg PO DAILY@0700 [facility] Last Admin: 06/22/18 06:51 Dose: 25 mcg Metoprolol Succinate (Toprol Xl -) 150 mg PO DAILY [facility] Last Admin: 06/22/18 10:41 Dose: 150 mg Morphine Sulfate (Morphine Injection -) 4 mg IVPUSH Q6H PRN PRN Reason: PAIN LEVEL 7 - 10 Oxycodone HCl (Roxicodone -) 5 mg PO Q6H PRN PRN Reason: PAIN LEVEL 6-10 Last Admin: 06/22/18 10:40 Dose: 5 mg Pantoprazole Sodium (Protonix -) 40 mg PO DAILY [facility] Last Admin: 06/22/18 10:40 Dose: 40 mg Sacubitril/Valsartan (Entresto 24 Mg-26 Mg Tablet) 1 tab PO BID [facility] Last Admin: 06/22/18 10:42 Dose: 1 tab Senna (Senna -) 1 tab PO HS [facility] Last Admin: 06/21/18 22:49 Dose: 1 tab CBC, BMP 06/21/18 22:00 06/21/18 07:20 Microbiology 06/21/18 14:00 Gram Stain - Final Foot - Left Wound Culture - Preliminary Proteus Species Physical Awake/ comfortable S1 S2 RRR Lungs decreased at bases Abd- soft, NT no edema left big toe -- gangrene, base is erythema+ A/P pod # 1 IV antibiotics HD per renal pain control-- ad morphine discussed with nursing staff will follow Problem List - Problems (1) ESRD (end stage renal disease) on dialysis Code(s): N18.6 - END STAGE RENAL DISEASE; Z99.2 - DEPENDENCE ON RENAL DIALYSIS (2) Gangrene Code(s): I96 - GANGRENE, NOT ELSEWHERE CLASSIFIED (3) Infection of toe Code(s): L08.9 - LOCAL INFECTION OF THE SKIN AND SUBCUTANEOUS TISSUE, UNSP (4) ASHD (arteriosclerotic heart disease) Code(s): I25.10 - ATHSCL HEART DISEASE OF [place] CORONARY ARTERY W/O ANG PCTRS (5) HTN (hypertension) Code(s): I10 - ESSENTIAL (PRIMARY) HYPERTENSION Qualifiers: Hypertension type: essential hypertension Qualified Code(s): I10 - Essential (primary) hypertension (6) ICD (implantable cardioverter-defibrillator) in place Code(s): Z95.810 - PRESENCE OF AUTOMATIC (IMPLANTABLE) CARDIAC DEFIBRILLATOR (7) PVD (peripheral vascular disease) Code(s): I73.9 - PERIPHERAL VASCULAR DISEASE, UNSPECIFIED (8) S/P CABG (coronary artery bypass graft) Code(s): Z95.1 - PRESENCE OF AORTOCORONARY BYPASS GRAFT
--- NOTE | 2018-06-22 12:22 | PN ---
Progress Note (short form) - Note Progress Note: POD#1. No pain. vss, Tmax 98.6 dressing clean, dry and intact, wbc=10.9 normal post op Dressing change tomorrow. Will follow. Awaiting xray. cbc with diff in am. will follow.
--- NOTE | 2018-06-22 16:10 | PN ---
Progress Note (short form) - Note Progress Note: s/p amputation of the first toe 06/21 s/p angiogram and stent placement 06/15 feels better, less foot pain Vital Signs Period Temp Pulse Resp BP Sys/Lopez Pulse Ox Last 24 Hr 97.9 F-99.2 F 80-88 20-21 126-143/60-78 99-99 cor-rrr lungs clear abd soft,nt ext dressing intact CBC, BMP 06/21/18 22:00 06/21/18 07:20 Microbiology 06/21/18 14:00 Foot - Left Gram Stain - Final 06/21/18 14:00 Foot - Left Wound Culture - Preliminary Proteus Species 06/13/18 23:30 Blood - Peripheral Venous Blood Culture - Final NO GROWTH AFTER 5 DAYS INCUBATION 06/14/18 07:00 Toe - Left Hallux Gram Stain - Final 06/14/18 07:00 Toe - Left Hallux Wound Culture - Final Diphtheroid/Corynebacterium Proteus Mirabilis 06/13/18 23:30 Blood - Peripheral Venous Blood Culture - Final Staphylococcus Epidermidis 06/13/18 23:30 Urine - Urine Clean Catch Urine Culture - Final NO GROWTH OBTAINED a/p s/p amputation of the big toe cellulitis PAD esrd/hd continue zosyn vancomycin today f/u operative culture Problem List - Problems (1) Cellulitis Code(s): L03.90 - CELLULITIS, UNSPECIFIED (2) Gangrene Code(s): I96 - GANGRENE, NOT ELSEWHERE CLASSIFIED (3) PVD (peripheral vascular disease) Code(s): I73.9 - PERIPHERAL VASCULAR DISEASE, UNSPECIFIED (4) ESRD (end stage renal disease) on dialysis Code(s): N18.6 - END STAGE RENAL DISEASE; Z99.2 - DEPENDENCE ON RENAL DIALYSIS
[2018-06-22] MEDS ORDERED: VANCOMYCIN 1,000 MG in DEXTROSE 5%-WATER - 250 ML IVPB ONE (17:45)
[2018-06-22] MEDS ORDERED: METOCLOPRAMIDE HCL INJECTION 10 MG/2 ML VIAL IVPUSH ONE (19:15)
[2018-06-22] MEDS: ATORVASTATIN CA 80 MG TABLET (FP) PO SCH (22:44)
[2018-06-22] MEDS: SENNOSIDES 8.6MG TABLET (FP) PO SCH (22:44)
[2018-06-22] MEDS: INSULIN (LEVEMIR) 100 UNITS/ML UNITS SQ SCH (22:45)
[2018-06-23] MEDS ORDERED: PIPERACILLIN/TAZOBACTAM 2.25 GM VIAL IVPB ONE ×3 (01:47→17:02)
[2018-06-23] MEDS ORDERED: DEXTROSE 5%-WATER - 50 ML IVPB ONE ×3 (01:48→17:02)
[2018-06-23] MEDS: PIPERACILLIN/TAZOB 2.25 GM 2.25 GM in DEXTROSE 5%-WATER - 50 ML IVPB SCH ×3 (02:21→17:03)
[2018-06-23] MEDS: DOCUSATE SODIUM 100 MG CAPSULE (FP) PO SCH ×3 (06:07→22:34)
[2018-06-23] MEDS: LEVOTHYROXINE NA 25 MCG TABLET (FP) PO SCH (06:07)
[2018-06-23] MEDS: ACETAMINOPHEN 325 MG TABLET (FP) PO PRN (08:07)
[2018-06-23 08:35] LABS: HEMATOCRIT 27.4 % (35.4-49); HEMOGLOBIN 9.1 GM/dL (11.7-16.9); MCH 29.1 pg (25.7-33.7); MCHC 33.1 g/dl (32.0-35.9); MEAN CELL VOLUME 87.9 fl (80-96); MEAN PLT VOLUME 9.3 fl (7.5-11.1); PLATELET COUNT 281 K/MM3 (134-434); RBC 3.12 M/mm3 (4.00-5.60); RDW 16.8 % (11.9-15.9)
[2018-06-23 08:57] LABS: ANION GAP 15 MMOL/L (8-16); BLOOD UREA NITROGEN 31 mg/dL (7-18); CALCIUM 7.8 mg/dL (8.5-10.1); CHLORIDE 98 mmol/L (98-107); CO2 26 mmol/L (21-32); CREATININE 6.4 mg/dL (0.55-1.3); GLUCOSE,RANDOM 109 mg/dL (74-106); POTASSIUM 3.8 mmol/L (3.5-5.1); SODIUM 139 mmol/L (136-145)
[2018-06-23] MEDS: HEPARIN NA (PORCINE) 5,000 UNITS/ML 1ML VIAL IVPUSH ONE (10:50)
[2018-06-23] MEDS: EPOETIN ALFA 3,000 UNIT, EPOETIN ALFA 2,000 UNIT IVPUSH ONE (10:50)
--- NOTE | 2018-06-23 11:16 | PN ---
Progress Note (short form) - Note Progress Note: Chief Complaint: Events noted, noted reviewed, dyspnea improved, denies any chest pain History of Present Illness: Seen and examined. Events noted, noted reviewed, dyspnea improved, denies any chest pain - Current Medication List Current Medications Acetaminophen (Tylenol -) 650 mg PO Q4H PRN PRN Reason: PAIN 1-3 Last Admin: 06/23/18 08:07 Dose: 650 mg Aspirin (Asa -) 81 mg PO DAILY [facility] Last Admin: 06/22/18 10:39 Dose: 81 mg Atorvastatin Calcium (Lipitor -) 80 mg PO HS [facility] Last Admin: 06/22/18 22:44 Dose: 80 mg Clopidogrel Bisulfate (Plavix -) 75 mg PO DAILY [facility] Last Admin: 06/22/18 10:39 Dose: 75 mg Docusate Sodium (Colace -) 100 mg PO TID [facility] Last Admin: 06/23/18 06:07 Dose: 100 mg Epoetin Parmjit 3,000 unit/ (Epoetin Parmjit 2,000 unit) 5,000 unit IVPUSH ONCE ONE Stop: 06/23/18 15:13 Last Admin: 06/23/18 10:50 Dose: 5,000 unit Heparin Sodium (Porcine) (Heparin -) 5,000 unit SQ BID [facility] Last Admin: 06/22/18 22:44 Dose: 5,000 unit Heparin Sodium (Porcine) (Heparin -) 500 unit IVPUSH ONCE ONE Stop: 06/23/18 12:11 Last Admin: 06/23/18 10:50 Dose: 500 unit Piperacillin Sod/Tazobactam (Sod 2.25 gm/ Dextrose) 50 mls @ 100 mls/hr IVPB Q8H-IV [facility]; Protocol Last Admin: 06/23/18 02:21 Dose: 100 mls/hr Sodium Chloride (Normal Saline -) 250 mls @ 3,000 mls/hr IV PRN PRN PRN Reason: Hypotension during Dialysis Stop: 06/23/18 12:10 Insulin Detemir (Levemir Vial) 8 units SQ HS [facility] Last Admin: 06/22/18 22:45 Dose: 8 units Levothyroxine Sodium (Synthroid -) 25 mcg PO DAILY@0700 [facility] Last Admin: 06/23/18 06:07 Dose: 25 mcg Metoprolol Succinate (Toprol Xl -) 150 mg PO DAILY [facility] Last Admin: 06/22/18 10:41 Dose: 150 mg Morphine Sulfate (Morphine Sulfate) 4 mg IVPUSH Q6H PRN PRN Reason: PAIN LEVEL 7 - 10 Oxycodone HCl (Roxicodone -) 5 mg PO Q6H PRN PRN Reason: PAIN LEVEL 6-10 Last Admin: 06/22/18 10:40 Dose: 5 mg Pantoprazole Sodium (Protonix -) 40 mg PO DAILY [facility] Last Admin: 06/22/18 10:40 Dose: 40 mg Sacubitril/Valsartan (Entresto 24 Mg-26 Mg Tablet) 1 tab PO BID [facility] Last Admin: 06/22/18 22:43 Dose: 1 tab Senna (Senna -) 1 tab PO HS [facility] Last Admin: 06/22/18 22:44 Dose: 1 tab - Objective Vital Signs: Last Vital Signs Temp Pulse Resp BP Pulse Ox 98.3 F 82 18 141/61 96 06/23/18 08:15 06/23/18 10:50 06/23/18 10:50 06/23/18 10:50 06/22/18 21:00 Intake & Output 06/20/18 06/21/18 06/22/18 06/23/18 23:59 23:59 23:59 23:59 Intake Total 1100 400 400 50 Output Total 300 325 Balance 800 75 400 50 Weight 141 lb 6.4 oz 141 lb 9.6 oz 141 lb Constitutional: No Distress, Calm, Thin Neck: Supple Negative JVD Respiratory: Diminished Breath Sounds at the Bases Bilaterally Cardiovascular: S1 S2 Regular Rate and Rhythm Grade 1/6 systolic murmur Gastrointestinal: Soft Benign Normal Bowel Sounds Ext: Trace Edema Dressing in Situ Labs: CBC, BMP 06/23/18 08:20 06/23/18 08:20 Hepatic Panel Total Bilirubin 0.4 mg/dL (0.2-1.0) 06/13/18 23:50 AST 20 U/L (15-37) D 06/13/18 23:50 ALT 15 U/L (12-78) 06/13/18 23:50 Alkaline Phosphatase 146 U/L (45-117) H 06/13/18 23:50 Albumin 3.5 g/dl (3.4-5.0) 06/13/18 23:50 Assessment/Plan ASSESSMENT: 1. Post lower extremity angiogram post stent post gangrenous left great toe amputation 2. Chronic class I-II NYHA classification LV failure related to ischemic dilated cardiomyopathy/severe LV systolic dysfunction, compensated/euvolemic 3. CAD post remote [place] post CABG angina pectoris, stable 4. Post prophylactic ICD implant ([employer]tr[employer]'s device) 5. HTN 6. IDDM 7. Hypercholesterolemia 8. Hypothyroidism 9. ESRD on HD 10. Anemia PLAN: 1. HD as per nephrology service 2. Antibiotics as per ID service 3. Continue Toprol XL 4. Continue Entresto 5. Continue ASA and Plavix 6. Continue Lipitor 7. Wound care as per the primary team Jordon Lozoya M.D.
--- NOTE | 2018-06-23 11:46 | PN ---
Progress Note (short form) - Note Progress Note: comfortable denies pain all f/u noted Vital Signs Temp 98.3 F 06/23/18 08:15 Pulse 80 06/23/18 11:20 Resp 18 06/23/18 11:20 BP 141/70 06/23/18 11:20 Pulse Ox 96 06/22/18 21:00 Intake & Output 06/22/18 06/22/18 06/23/18 11:59 23:59 11:59 Intake Total 50 350 50 Balance 50 350 50 Weight 141 lb Intake: IV 350 Normal Saline - 250 ml @ 250 3000 mls/hr IV PRN PRN Rx #:[id number] saline lock 100 IVPB 50 50 Other: Voiding Method Urinal Urinal Weight Measurement Method Built in [facility] Active Medications Acetaminophen (Tylenol -) 650 mg PO Q4H PRN PRN Reason: PAIN 1-3 Last Admin: 06/23/18 08:07 Dose: 650 mg Aspirin (Asa -) 81 mg PO DAILY [facility] Last Admin: 06/22/18 10:39 Dose: 81 mg Atorvastatin Calcium (Lipitor -) 80 mg PO HS [facility] Last Admin: 06/22/18 22:44 Dose: 80 mg Clopidogrel Bisulfate (Plavix -) 75 mg PO DAILY [facility] Last Admin: 06/22/18 10:39 Dose: 75 mg Docusate Sodium (Colace -) 100 mg PO TID [facility] Last Admin: 06/23/18 06:07 Dose: 100 mg Epoetin Parmjit 3,000 unit/ (Epoetin Parmjit 2,000 unit) 5,000 unit IVPUSH ONCE ONE Stop: 06/23/18 15:13 Last Admin: 06/23/18 10:50 Dose: 5,000 unit Heparin Sodium (Porcine) (Heparin -) 5,000 unit SQ BID [facility] Last Admin: 06/22/18 22:44 Dose: 5,000 unit Heparin Sodium (Porcine) (Heparin -) 500 unit IVPUSH ONCE ONE Stop: 06/23/18 12:11 Last Admin: 06/23/18 10:50 Dose: 500 unit Piperacillin Sod/Tazobactam (Sod 2.25 gm/ Dextrose) 50 mls @ 100 mls/hr IVPB Q8H-IV [facility]; Protocol Last Admin: 06/23/18 02:21 Dose: 100 mls/hr Sodium Chloride (Normal Saline -) 250 mls @ 3,000 mls/hr IV PRN PRN PRN Reason: Hypotension during Dialysis Stop: 06/23/18 12:10 Insulin Detemir (Levemir Vial) 8 units SQ [facility] Last Admin: 06/22/18 22:45 Dose: 8 units Levothyroxine Sodium (Synthroid -) 25 mcg PO DAILY@0700 [facility] Last Admin: 06/23/18 06:07 Dose: 25 mcg Metoprolol Succinate (Toprol Xl -) 150 mg PO DAILY [facility] Last Admin: 06/22/18 10:41 Dose: 150 mg Morphine Sulfate (Morphine Sulfate) 4 mg IVPUSH Q6H PRN PRN Reason: PAIN LEVEL 7 - 10 Oxycodone HCl (Roxicodone -) 5 mg PO Q6H PRN PRN Reason: PAIN LEVEL 6-10 Last Admin: 06/22/18 10:40 Dose: 5 mg Pantoprazole Sodium (Protonix -) 40 mg PO DAILY [facility] Last Admin: 06/22/18 10:40 Dose: 40 mg Sacubitril/Valsartan (Entresto 24 Mg-26 Mg Tablet) 1 tab PO BID [facility] Last Admin: 06/22/18 22:43 Dose: 1 tab Senna (Senna -) 1 tab PO HS [facility] Last Admin: 06/22/18 22:44 Dose: 1 tab CBC, BMP 06/23/18 08:20 06/23/18 08:20 Microbiology 06/21/18 14:00 Gram Stain - Final Foot - Left Wound Culture - Preliminary Proteus Mirabilis Physical Awake/ comfortable S1 S2 RRR Lungs decreased at bases Abd- soft, NT no edema left big toe -- dressing +-- s/p amputation A/P pod # 2 IV antibiotics HD per renal pain control-- discussed with nursing staff will follow
[2018-06-23] MEDS ORDERED: EPOETIN ALFA 2,000 UNIT/1 ML VIAL IVPUSH ONE (12:10)
[2018-06-23] MEDS: HEPARIN NA (PORCINE) 5,000 UNITS/ML 1ML VIAL SQ SCH ×2 (12:36→22:31)
[2018-06-23] MEDS: ASPIRIN 81 MG CHEWABLE TABLETS PO SCH (12:36)
[2018-06-23] MEDS: PANTOPRAZOLE 40 MG TABLET (FP) PO SCH (12:36)
[2018-06-23] MEDS: SACUBITRIL/VALSARTAN 24 MG-26 MG TABLET PO SCH ×2 (12:36→22:35)
[2018-06-23] MEDS: CLOPIDOGREL BISULFATE 75 MG TABLET (FP) PO SCH (12:36)
--- NOTE | 2018-06-23 12:36 | PN ---
Progress Note (short form) - Note Progress Note: POD#2. No pain. Seen during dialysis. vss, Tmax 98.3 dressing clean, dry and intact, wbc=10.0, packing intact, retention sutures intact normal post op Packing pulled. Retention sutures left in place. Betadine dressing. Will follow.
[2018-06-23 13:25] LABS: BASO % 1.3 % (0-2.0); EOS % 5.4 % (0-4.5); HEMATOCRIT 27.8 % (35.4-49); LYMPH % 7.4 % (8-40); MCH 28.7 pg (25.7-33.7); MCHC 32.4 g/dl (32.0-35.9); MEAN CELL VOLUME 88.6 fl (80-96); MEAN PLT VOLUME 9.5 fl (7.5-11.1); MONO % 8.2 % (3.8-10.2); NEUT % 77.7 % (42.8-82.8); PLATELET COUNT 266 K/MM3 (134-434); RBC 3.13 M/mm3 (4.00-5.60); RDW 16.6 % (11.9-15.9); WHITE BLOOD COUNT 9.9 K/mm3 (4.0-10.0)
[2018-06-23] MEDS: oxyCODONE HCL 5 MG TABLET PO PRN (13:58)
--- NOTE | 2018-06-23 15:03 | PN ---
Progress Note, Physician History of Present Illness: Pt seen and examined at bedside. He is awake and alert. He denies shortness of breath. He tolerated HD. - Current Medication List Current Medications: Active Medications Acetaminophen (Tylenol -) 650 mg PO Q4H PRN PRN Reason: PAIN 1-3 Last Admin: 06/23/18 08:07 Dose: 650 mg Aspirin (Asa -) 81 mg PO DAILY [facility] Last Admin: 06/23/18 12:36 Dose: 81 mg Atorvastatin Calcium (Lipitor -) 80 mg PO HS [facility] Last Admin: 06/22/18 22:44 Dose: 80 mg Clopidogrel Bisulfate (Plavix -) 75 mg PO DAILY [facility] Last Admin: 06/23/18 12:36 Dose: 75 mg Docusate Sodium (Colace -) 100 mg PO TID [facility] Last Admin: 06/23/18 06:07 Dose: 100 mg Epoetin Parmjit 3,000 unit/ (Epoetin Parmjit 2,000 unit) 5,000 unit IVPUSH ONCE ONE Stop: 06/23/18 15:13 Last Admin: 06/23/18 10:50 Dose: 5,000 unit Heparin Sodium (Porcine) (Heparin -) 5,000 unit SQ BID [facility] Last Admin: 06/23/18 12:36 Dose: 5,000 unit Piperacillin Sod/Tazobactam (Sod 2.25 gm/ Dextrose) 50 mls @ 100 mls/hr IVPB Q8H-IV [facility]; Protocol Last Admin: 06/23/18 12:38 Dose: 100 mls/hr Insulin Detemir (Levemir Vial) 8 units SQ HS [facility] Last Admin: 06/22/18 22:45 Dose: 8 units Levothyroxine Sodium (Synthroid -) 25 mcg PO DAILY@0700 [facility] Last Admin: 06/23/18 06:07 Dose: 25 mcg Metoprolol Succinate (Toprol Xl -) 150 mg PO DAILY [facility] Last Admin: 06/23/18 12:37 Dose: 150 mg Morphine Sulfate (Morphine Sulfate) 4 mg IVPUSH Q6H PRN PRN Reason: PAIN LEVEL 7 - 10 Oxycodone HCl (Roxicodone -) 5 mg PO Q6H PRN PRN Reason: PAIN LEVEL 6-10 Last Admin: 06/23/18 13:58 Dose: 5 mg Pantoprazole Sodium (Protonix -) 40 mg PO DAILY [facility] Last Admin: 06/22/18 10:40 Dose: 40 mg Sacubitril/Valsartan (Entresto 24 Mg-26 Mg Tablet) 1 tab PO BID [facility] Last Admin: 06/22/18 22:43 Dose: 1 tab Senna (Senna -) 1 tab PO HS [facility] Last Admin: 06/22/18 22:44 Dose: 1 tab - Objective Vital Signs: Vital Signs Temperature 97.6 F 06/23/18 12:45 Pulse Rate 81 06/23/18 12:45 Respiratory Rate 20 06/23/18 12:45 Blood Pressure 157/75 06/23/18 12:45 O2 Sat by Pulse Oximetry (%) 96 06/22/18 21:00 Constitutional: Yes: Calm Eyes: Yes: Conjunctiva Clear HENT: Yes: Atraumatic Cardiovascular: Yes: S1, S2 Respiratory: Yes: CTA Bilaterally Gastrointestinal: Yes: Soft Genitourinary: Yes: WNL Extremities: Yes: WNL Edema: No Wound/Incision: Yes: Dressing Dry and Intact Neurological: Yes: Oriented Psychiatric: Yes: Oriented Labs: CBC, BMP 06/23/18 08:20 06/23/18 08:20 INR, PTT INR 1.03 (0.83-1.09) 06/14/18 07:10 Problem List - Problems (1) Cellulitis Code(s): L03.90 - CELLULITIS, UNSPECIFIED (2) ESRD (end stage renal disease) on dialysis Code(s): N18.6 - END STAGE RENAL DISEASE; Z99.2 - DEPENDENCE ON RENAL DIALYSIS (3) Gangrene Code(s): I96 - GANGRENE, NOT ELSEWHERE CLASSIFIED (4) COPD (chronic obstructive pulmonary disease) Code(s): J44.9 - CHRONIC OBSTRUCTIVE PULMONARY DISEASE, UNSPECIFIED Qualifiers: COPD type: unspecified COPD Qualified Code(s): J44.9 - Chronic obstructive pulmonary disease, unspecified Assessment/Plan Current Medications Generic Name Dose Route Start Last Admin Trade Name Freq PRN Reason Stop Dose Admin Acetaminophen 650 mg 06/21/18 15:55 06/23/18 08:07 Tylenol - PO 650 mg Q4H PRN Administration PAIN 1-3 Aspirin 81 mg 06/22/18 10:00 06/23/18 12:36 Asa - PO 81 mg DAILY [facility] Administration Atorvastatin Calcium 80 mg 06/21/18 22:00 06/22/18 22:44 Lipitor - PO 80 mg HS [facility] Administration Clopidogrel Bisulfate 75 mg 06/22/18 10:00 06/23/18 12:36 Plavix - PO 75 mg DAILY [facility] Administration Docusate Sodium 100 mg 06/21/18 22:00 06/23/18 06:07 Colace - PO 100 mg TID [facility] Administration Epoetin Parmjit 3,000 unit/ 5,000 unit 06/23/18 15:12 06/23/18 10:50 Epoetin Parmjit 2,000 unit IVPUSH 06/23/18 15:13 5,000 unit ONCE ONE Administration Heparin Sodium (Porcine) 5,000 unit 06/21/18 22:00 06/23/18 12:36 Heparin - SQ 5,000 unit BID [facility] Administration Piperacillin Sod/Tazobactam 50 mls @ 100 mls/hr 06/21/18 18:00 06/23/18 12:38 Sod 2.25 gm/ Dextrose IVPB 100 mls/hr Q8H-IV [facility] Administration Protocol Insulin Detemir 8 units 06/21/18 22:00 06/22/18 22:45 Levemir Vial SQ 8 units HS [facility] Administration Levothyroxine Sodium 25 mcg 06/22/18 07:00 06/23/18 06:07 Synthroid - PO 25 mcg DAILY@0700 [facility] Administration Metoprolol Succinate 150 mg 06/22/18 10:00 06/23/18 12:37 Toprol Xl - PO 150 mg DAILY [facility] Administration Morphine Sulfate 4 mg 06/22/18 12:09 Morphine Sulfate IVPUSH Q6H PRN PAIN LEVEL 7 - 10 Oxycodone HCl 5 mg 06/21/18 15:55 06/23/18 13:58 Roxicodone - PO 5 mg Q6H PRN Administration PAIN LEVEL 6-10 Pantoprazole Sodium 40 mg 06/22/18 10:00 06/22/18 10:40 Protonix - PO 40 mg DAILY [facility] Administration Sacubitril/Valsartan 1 tab 06/21/18 22:00 06/22/18 22:43 Entresto 24 Mg-26 Mg Tablet PO 1 tab BID [facility] Administration Senna 1 tab 06/21/18 22:00 06/22/18 22:44 Senna - PO 1 tab HS [facility] Administration Impression 1. ESRD 2. toe gangrene 3. DM 4. CAD 5. PVD 6. DFU 7. anemia 8. hx steal syndrome s/p DRIL procedure 9. CHF 10. constipation Plan - HD today - wound care to foot - podiatry follow up - cont abx per iD - renal diet - will follow Dr Dove
[2018-06-23] MEDS: SENNOSIDES 8.6MG TABLET (FP) PO SCH (22:34)
[2018-06-23] MEDS: INSULIN (LEVEMIR) 100 UNITS/ML UNITS SQ SCH (22:34)
[2018-06-23] MEDS: ATORVASTATIN CA 80 MG TABLET (FP) PO SCH (22:35)
[2018-06-23] MEDS: morphine SULFATE 4 MG/ML VIAL IVPUSH PRN (22:36)
[2018-06-24] MEDS ORDERED: PIPERACILLIN/TAZOBACTAM 2.25 GM VIAL IVPB ONE ×3 (02:35→16:09)
[2018-06-24] MEDS ORDERED: DEXTROSE 5%-WATER - 100 ML IVPB ONE (02:36)
[2018-06-24] MEDS: PIPERACILLIN/TAZOB 2.25 GM 2.25 GM in DEXTROSE 5%-WATER - 50 ML IVPB SCH ×3 (02:46→17:05)
[2018-06-24] MEDS: LEVOTHYROXINE NA 25 MCG TABLET (FP) PO SCH (06:17)
[2018-06-24] MEDS: DOCUSATE SODIUM 100 MG CAPSULE (FP) PO SCH ×3 (06:18→21:39)
[2018-06-24] MEDS ORDERED: INSULIN (LEVEMIR) 100 UNITS/ML UNITS SQ ONE (06:23)
[2018-06-24] MEDS ORDERED: PT OWN MED DRAWER 7, Y5N ONE ×2 (09:24→21:18)
[2018-06-24] MEDS: ASPIRIN 81 MG CHEWABLE TABLETS PO SCH (09:30)
[2018-06-24] MEDS: PANTOPRAZOLE 40 MG TABLET (FP) PO SCH (09:30)
[2018-06-24] MEDS: CLOPIDOGREL BISULFATE 75 MG TABLET (FP) PO SCH (09:30)
[2018-06-24] MEDS: SACUBITRIL/VALSARTAN 24 MG-26 MG TABLET PO SCH (09:31)
[2018-06-24] MEDS: HEPARIN NA (PORCINE) 5,000 UNITS/ML 1ML VIAL SQ SCH ×2 (09:31→21:40)
--- NOTE | 2018-06-24 09:51 | PN ---
Progress Note (short form) - Note Progress Note: Chief Complaint: Events noted, noted reviewed, dyspnea improved, denies any chest pain, complaining of foot discomfort and paresthesia History of Present Illness: Seen and examined. Events noted, noted reviewed, dyspnea improved, denies any chest pain, complaining of foot discomfort and paresthesia - Current Medication List Current Medications Acetaminophen (Tylenol -) 650 mg PO Q4H PRN PRN Reason: PAIN 1-3 Last Admin: 06/23/18 08:07 Dose: 650 mg Aspirin (Asa -) 81 mg PO DAILY [facility] Last Admin: 06/24/18 09:30 Dose: 81 mg Atorvastatin Calcium (Lipitor -) 80 mg PO HS [facility] Last Admin: 06/23/18 22:35 Dose: 80 mg Clopidogrel Bisulfate (Plavix -) 75 mg PO DAILY [facility] Last Admin: 06/24/18 09:30 Dose: 75 mg Docusate Sodium (Colace -) 100 mg PO TID [facility] Last Admin: 06/24/18 06:18 Dose: 100 mg Heparin Sodium (Porcine) (Heparin -) 5,000 unit SQ BID [facility] Last Admin: 06/24/18 09:31 Dose: 5,000 unit Piperacillin Sod/Tazobactam (Sod 2.25 gm/ Dextrose) 50 mls @ 100 mls/hr IVPB Q8H-IV [facility]; Protocol Last Admin: 06/24/18 09:30 Dose: 100 mls/hr Insulin Detemir (Levemir Vial) 8 units SQ HS [facility] Last Admin: 06/23/18 22:34 Dose: 8 units Levothyroxine Sodium (Synthroid -) 25 mcg PO DAILY@0700 [facility] Last Admin: 06/24/18 06:17 Dose: 25 mcg Metoprolol Succinate (Toprol Xl -) 150 mg PO DAILY [facility] Last Admin: 06/24/18 09:30 Dose: 150 mg Morphine Sulfate (Morphine Sulfate) 4 mg IVPUSH Q6H PRN PRN Reason: PAIN LEVEL 7 - 10 Last Admin: 06/23/18 22:36 Dose: 4 mg Oxycodone HCl (Roxicodone -) 5 mg PO Q6H PRN PRN Reason: PAIN LEVEL 6-10 Last Admin: 06/23/18 13:58 Dose: 5 mg Pantoprazole Sodium (Protonix -) 40 mg PO DAILY [facility] Last Admin: 06/24/18 09:30 Dose: 40 mg Sacubitril/Valsartan (Entresto 24 Mg-26 Mg Tablet) 1 tab PO BID [facility] Last Admin: 06/24/18 09:31 Dose: 1 tab Senna (Senna -) 1 tab PO HS [facility] Last Admin: 06/23/18 22:34 Dose: 1 tab - Objective Vital Signs: Last Vital Signs Temp Pulse Resp BP Pulse Ox 98.2 F 80 16 150/61 98 06/24/18 08:00 06/24/18 08:00 06/24/18 08:00 06/24/18 08:00 06/23/18 21:00 Intake & Output 06/21/18 06/22/18 06/23/18 06/24/18 23:59 23:59 23:59 23:59 Intake Total 400 400 750 50 Output Total 325 200 0 Balance 75 400 550 50 Weight 141 lb 9.6 oz 141 lb 141 lb 9.6 oz 142 lb Constitutional: No Distress, Calm, Thin Neck: Supple Negative JVD Respiratory: Diminished Breath Sounds at the Bases Bilaterally Cardiovascular: S1 S2 Regular Rate and Rhythm Grade 1/6 systolic murmur Gastrointestinal: Soft Benign Normal Bowel Sounds Ext: Trace Edema Dressing in Situ Labs: CBC, BMP 06/23/18 08:20 06/23/18 08:20 Assessment/Plan ASSESSMENT: 1. Post lower extremity angiogram post stent, gangrenous left great toe amputation 2. Chronic class I-II NYHA classification LV failure related to ischemic dilated cardiomyopathy/severe LV systolic dysfunction, clinically compensated/ euvolemic 3. CAD post remote LA post CABG angina pectoris, stable 4. Post prophylactic ICD implant ([employer]'s device) 5. HTN 6. IDDM 7. Hypercholesterolemia 8. Hypothyroidism 9. ESRD on HD 10. Anemia PLAN: 1. HD as per nephrology service 2. Antibiotics as per ID service 3. Continue Toprol XL 4. Continue Entresto and dose titration as tolerated 5. Continue ASA and Plavix 6. Continue Lipitor 7. Wound care as per the primary team Jordon Lozoya M.D.
[2018-06-24] MEDS: SACUBITRIL/VALSARTAN 49 MG-51 MG TABLET PO SCH ×2 (10:18→21:40)
[2018-06-24 13:24] VITALS: BMI 20.9
--- NOTE | 2018-06-24 13:45 | PN ---
Progress Note (short form) - Note Progress Note: PT comfortable denies pain afebrile Vital Signs Temp 98.2 F 06/24/18 08:00 Pulse 80 06/24/18 08:00 Resp 16 06/24/18 08:00 BP 150/61 06/24/18 08:00 Pulse Ox 98 06/24/18 09:00 Intake & Output 06/23/18 06/24/18 06/24/18 23:59 11:59 23:59 Intake Total 700 50 Output Total 200 0 Balance 500 50 Weight 141 lb 9.6 oz 142 lb 142 lb Intake: IV 200 Normal Saline - 250 ml @ 100 3000 mls/hr IV PRN PRN Rx #:[id number] saline lock 100 IVPB 100 50 Oral 400 Output: Urine 200 0 Void 200 0 Other: Voiding Method Urinal Bowel Movement No No Height 5 ft 9 in Body Mass Index (BMI) 20.9 Weight Measurement Method Built in Bedscale Built in Bedscale Active Medications Acetaminophen (Tylenol -) 650 mg PO Q4H PRN PRN Reason: PAIN 1-3 Last Admin: 06/23/18 08:07 Dose: 650 mg Aspirin (Asa -) 81 mg PO DAILY [facility] Last Admin: 06/24/18 09:30 Dose: 81 mg Atorvastatin Calcium (Lipitor -) 80 mg PO HS [facility] Last Admin: 06/23/18 22:35 Dose: 80 mg Clopidogrel Bisulfate (Plavix -) 75 mg PO DAILY [facility] Last Admin: 06/24/18 09:30 Dose: 75 mg Docusate Sodium (Colace -) 100 mg PO TID [facility] Last Admin: 06/24/18 13:00 Dose: 100 mg Heparin Sodium (Porcine) (Heparin -) 5,000 unit SQ BID [facility] Last Admin: 06/24/18 09:31 Dose: 5,000 unit Piperacillin Sod/Tazobactam (Sod 2.25 gm/ Dextrose) 50 mls @ 100 mls/hr IVPB Q8H-IV [facility]; Protocol Last Admin: 06/24/18 09:30 Dose: 100 mls/hr Insulin Detemir (Levemir Vial) 8 units SQ HS [facility] Last Admin: 06/23/18 22:34 Dose: 8 units Levothyroxine Sodium (Synthroid -) 25 mcg PO DAILY@0700 [facility] Last Admin: 09/16/18 06:17 Dose: 25 mcg Metoprolol Succinate (Toprol Xl -) 150 mg PO DAILY [facility] Last Admin: 06/24/18 09:30 Dose: 150 mg Morphine Sulfate (Morphine Sulfate) 4 mg IVPUSH Q6H PRN PRN Reason: PAIN LEVEL 7 - 10 Last Admin: 06/23/18 22:36 Dose: 4 mg Oxycodone HCl (Roxicodone -) 5 mg PO Q6H PRN PRN Reason: PAIN LEVEL 6-10 Last Admin: 06/23/18 13:58 Dose: 5 mg Pantoprazole Sodium (Protonix -) 40 mg PO DAILY [facility] Last Admin: 06/24/18 09:30 Dose: 40 mg Sacubitril/Valsartan (Entresto 49 Mg-51 Mg Tablet) 1 tab PO BID [facility] Last Admin: 06/24/18 10:18 Dose: Not Given Senna (Senna -) 1 tab PO HS [facility] Last Admin: 06/23/18 22:34 Dose: 1 tab CBC, BMP 06/23/18 08:20 06/23/18 08:20 Microbiology 06/21/18 14:00 Gram Stain - Final Foot - Left Wound Culture - Final Proteus Mirabilis Diphtheroid/Corynebacterium Physical Awake/ comfortable S1 S2 RRR Lungs decreased at bases Abd- soft, NT no edema left big toe -- dressing +-- s/p amputation A/P pod # 3 IV antibiotics HD per renal pain control-- discussed with nursing staff hep c +ve -- will discuss with renal - check viral load/ genotype - f/u gi as out pt -will follow Problem List - Problems (1) Hepatitis C antibody test positive Code(s): R76.8 - OTHER SPECIFIED ABNORMAL IMMUNOLOGICAL FINDINGS IN SERUM (2) ESRD (end stage renal disease) on dialysis Code(s): N18.6 - END STAGE RENAL DISEASE; Z99.2 - DEPENDENCE ON RENAL DIALYSIS (3) Gangrene Code(s): I96 - GANGRENE, NOT ELSEWHERE CLASSIFIED (4) ASHD (arteriosclerotic heart disease) Code(s): I25.10 - ATHSCL HEART DISEASE OF [place] CORONARY ARTERY W/O ANG PCTRS (5) Diabetes Code(s): E11.9 - TYPE 2 DIABETES MELLITUS WITHOUT COMPLICATIONS Qualifiers: Diabetes mellitus type: type 2 Diabetes mellitus residential insulin use: without residential use Diabetes mellitus complication status: with neurologic complications (6) ESRD (end stage renal disease) Code(s): N18.6 - END STAGE RENAL DISEASE (7) Hypothyroidism Code(s): E03.9 - HYPOTHYROIDISM, UNSPECIFIED Qualifiers: Hypothyroidism type: unspecified Qualified Code(s): E03.9 - Hypothyroidism , unspecified (8) ICD (implantable cardioverter-defibrillator) in place Code(s): Z95.810 - PRESENCE OF AUTOMATIC (IMPLANTABLE) CARDIAC DEFIBRILLATOR (9) S/P CABG (coronary artery bypass graft) Code(s): Z95.1 - PRESENCE OF AORTOCORONARY BYPASS GRAFT (10) S/P peripheral artery angioplasty with stent placement Code(s): Z95.820 - PERIPHERAL VASCULAR ANGIOPLASTY STATUS W IMPLANTS AND GRAFTS
--- NOTE | 2018-06-24 14:22 | PN ---
Progress Note, Physician History of Present Illness: Pt seen and examined at bedside. He is awake and alert. He denies shortness of breath. He feels that the post op pain is controlled. - Current Medication List Current Medications: Active Medications Acetaminophen (Tylenol -) 650 mg PO Q4H PRN PRN Reason: PAIN 1-3 Last Admin: 06/23/18 08:07 Dose: 650 mg Aspirin (Asa -) 81 mg PO DAILY [facility] Last Admin: 06/24/18 09:30 Dose: 81 mg Atorvastatin Calcium (Lipitor -) 80 mg PO HS [facility] Last Admin: 06/23/18 22:35 Dose: 80 mg Clopidogrel Bisulfate (Plavix -) 75 mg PO DAILY [facility] Last Admin: 06/24/18 09:30 Dose: 75 mg Docusate Sodium (Colace -) 100 mg PO TID [facility] Last Admin: 06/24/18 13:00 Dose: 100 mg Heparin Sodium (Porcine) (Heparin -) 5,000 unit SQ BID [facility] Last Admin: 06/24/18 09:31 Dose: 5,000 unit Piperacillin Sod/Tazobactam (Sod 2.25 gm/ Dextrose) 50 mls @ 100 mls/hr IVPB Q8H-IV [facility]; Protocol Last Admin: 06/24/18 09:30 Dose: 100 mls/hr Insulin Detemir (Levemir Vial) 8 units SQ [facility] Last Admin: 06/23/18 22:34 Dose: 8 units Levothyroxine Sodium (Synthroid -) 25 mcg PO DAILY@0700 [facility] Last Admin: 06/24/18 06:17 Dose: 25 mcg Metoprolol Succinate (Toprol Xl -) 150 mg PO DAILY [facility] Last Admin: 06/24/18 09:30 Dose: 150 mg Morphine Sulfate (Morphine Sulfate) 4 mg IVPUSH Q6H PRN PRN Reason: PAIN LEVEL 7 - 10 Last Admin: 06/23/18 22:36 Dose: 4 mg Oxycodone HCl (Roxicodone -) 5 mg PO Q6H PRN PRN Reason: PAIN LEVEL 6-10 Last Admin: 06/23/18 13:58 Dose: 5 mg Pantoprazole Sodium (Protonix -) 40 mg PO DAILY [facility] Last Admin: 06/24/18 09:30 Dose: 40 mg Sacubitril/Valsartan (Entresto 49 Mg-51 Mg Tablet) 1 tab PO BID [facility] Last Admin: 06/24/18 10:18 Dose: Not Given Senna (Senna -) 1 tab PO HS [facility] Last Admin: 06/23/18 22:34 Dose: 1 tab - Objective Vital Signs: Vital Signs Temperature 98.7 F 06/24/18 14:01 Pulse Rate 80 06/24/18 14:01 Respiratory Rate 20 06/24/18 14:01 Blood Pressure 138/58 06/24/18 14:01 O2 Sat by Pulse Oximetry (%) 98 06/24/18 09:00 Constitutional: Yes: Calm Eyes: Yes: Conjunctiva Clear HENT: Yes: Atraumatic Neck: Yes: Supple Cardiovascular: Yes: S1, S2 Respiratory: Yes: CTA Bilaterally Gastrointestinal: Yes: Normal Bowel Sounds, Soft Musculoskeletal: Yes: WNL Edema: No Wound/Incision: Yes: Dressing Dry and Intact Neurological: Yes: Oriented Psychiatric: Yes: Oriented Labs: CBC, BMP 06/23/18 08:20 06/23/18 08:20 INR, PTT INR 1.03 (0.83-1.09) 06/14/18 07:10 Problem List - Problems (1) Cellulitis Code(s): L03.90 - CELLULITIS, UNSPECIFIED (2) ESRD (end stage renal disease) on dialysis Code(s): N18.6 - END STAGE RENAL DISEASE; Z99.2 - DEPENDENCE ON RENAL DIALYSIS (3) Gangrene Code(s): I96 - GANGRENE, NOT ELSEWHERE CLASSIFIED (4) COPD (chronic obstructive pulmonary disease) Code(s): J44.9 - CHRONIC OBSTRUCTIVE PULMONARY DISEASE, UNSPECIFIED Qualifiers: COPD type: unspecified COPD Qualified Code(s): J44.9 - Chronic obstructive pulmonary disease, unspecified Assessment/Plan Current Medications Generic Name Dose Route Start Last Admin Trade Name Freq PRN Reason Stop Dose Admin Acetaminophen 650 mg 06/21/18 15:55 06/23/18 08:07 Tylenol - PO 650 mg Q4H PRN Administration PAIN 1-3 Aspirin 81 mg 06/22/18 10:00 06/24/18 09:30 Asa - PO 81 mg DAILY [facility] Administration Atorvastatin Calcium 80 mg 06/21/18 22:00 06/23/18 22:35 Lipitor - PO 80 mg HS [facility] Administration Clopidogrel Bisulfate 75 mg 06/22/18 10:00 06/24/18 09:30 Plavix - PO 75 mg DAILY [facility] Administration Docusate Sodium 100 mg 06/21/18 22:00 06/24/18 13:00 Colace - PO 100 mg TID [facility] Administration Heparin Sodium (Porcine) 5,000 unit 06/21/18 22:00 06/24/18 09:31 Heparin - SQ 5,000 unit BID [facility] Administration Piperacillin Sod/Tazobactam 50 mls @ 100 mls/hr 06/21/18 18:00 06/24/18 09:30 Sod 2.25 gm/ Dextrose IVPB 100 mls/hr Q8H-IV [facility] Administration Protocol Insulin Detemir 8 units 06/21/18 22:00 06/23/18 22:34 Levemir Vial SQ 8 units HS [facility] Administration Levothyroxine Sodium 25 mcg 06/22/18 07:00 06/24/18 06:17 Synthroid - PO 25 mcg DAILY@0700 [facility] Administration Metoprolol Succinate 150 mg 06/22/18 10:00 06/24/18 09:30 Toprol Xl - PO 150 mg DAILY [facility] Administration Morphine Sulfate 4 mg 06/22/18 12:09 06/23/18 22:36 Morphine Sulfate IVPUSH 4 mg Q6H PRN Administration PAIN LEVEL 7 - 10 Oxycodone HCl 5 mg 06/21/18 15:55 06/23/18 13:58 Roxicodone - PO 5 mg Q6H PRN Administration PAIN LEVEL 6-10 Pantoprazole Sodium 40 mg 06/22/18 10:00 06/24/18 09:30 Protonix - PO 40 mg DAILY [facility] Administration Sacubitril/Valsartan 1 tab 06/24/18 10:00 06/24/18 10:18 Entresto 49 Mg-51 Mg Tablet PO Not Given BID [facility] Senna 1 tab 06/21/18 22:00 06/23/18 22:34 Senna - PO 1 tab HS [facility] Administration Laboratory Tests 03/01/18 03/28/18 06/14/18 15:30 13:00 13:40 Hep C Ab Diagnostic 2.0 H 1.6 1.7 H HCV RNA PCR w/Genot Rflx Hcv not detected Impression 1. ESRD 2. toe gangrene 3. DM 4. CAD 5. PVD 6. DFU 7. anemia 8. hx steal syndrome s/p DRIL procedure 9. CHF 10. constipation 11. pos hep c ab Plan - next HD on Monday - cont wound care - GI follow up for hep C - cont abx per ID - renal diet - will follow Dr Dove
[2018-06-24] MEDS ORDERED: DEXTROSE 5%-WATER - 50 ML IVPB ONE (16:09)
[2018-06-24] MEDS: SENNOSIDES 8.6MG TABLET (FP) PO SCH (21:37)
[2018-06-24] MEDS: morphine SULFATE 4 MG/ML VIAL IVPUSH PRN (21:39)
[2018-06-24] MEDS: ATORVASTATIN CA 80 MG TABLET (FP) PO SCH (21:39)
[2018-06-24] MEDS: INSULIN (LEVEMIR) 100 UNITS/ML UNITS SQ SCH (21:41)
[2018-06-25] MEDS ORDERED: PIPERACILLIN/TAZOBACTAM 2.25 GM VIAL IVPB ONE ×3 (01:57→19:20)
[2018-06-25] MEDS ORDERED: DEXTROSE 5%-WATER - 50 ML IVPB ONE ×3 (01:57→19:21)
[2018-06-25] MEDS: PIPERACILLIN/TAZOB 2.25 GM 2.25 GM in DEXTROSE 5%-WATER - 50 ML IVPB SCH ×3 (02:27→19:25)
[2018-06-25] MEDS: DOCUSATE SODIUM 100 MG CAPSULE (FP) PO SCH ×3 (06:27→21:00)
[2018-06-25] MEDS: LEVOTHYROXINE NA 25 MCG TABLET (FP) PO SCH (06:27)
[2018-06-25] MEDS: EPOETIN ALFA 3,000 UNIT, EPOETIN ALFA 2,000 UNIT IVPUSH ONE (08:43)
[2018-06-25] MEDS: HEPARIN NA (PORCINE) 5,000 UNITS/ML 1ML VIAL IVPUSH ONE (08:43)
[2018-06-25] MEDS: HEPARIN NA (PORCINE) 5,000 UNITS/ML 1ML VIAL SQ SCH ×2 (09:32→21:01)
[2018-06-25] MEDS: ASPIRIN 81 MG CHEWABLE TABLETS PO SCH (09:32)
[2018-06-25] MEDS: CLOPIDOGREL BISULFATE 75 MG TABLET (FP) PO SCH (09:32)
[2018-06-25] MEDS: SACUBITRIL/VALSARTAN 49 MG-51 MG TABLET PO SCH ×2 (09:32→21:04)
[2018-06-25] MEDS: PANTOPRAZOLE 40 MG TABLET (FP) PO SCH (09:32)
--- NOTE | 2018-06-25 10:30 | PN ---
Progress Note, Physician History of Present Illness: Reports constipation post amputation of gangrenous left great toe. Patient denies chest pain, dyspnea, palpitations, near or true syncope, orthopnea, PND or LE edema. - Current Medication List Current Medications: Active Medications Acetaminophen (Tylenol -) 650 mg PO Q4H PRN PRN Reason: PAIN 1-3 Last Admin: 06/23/18 08:07 Dose: 650 mg Aspirin (Asa -) 81 mg PO DAILY [facility] Last Admin: 06/25/18 09:32 Dose: 81 mg Atorvastatin Calcium (Lipitor -) 80 mg PO HS [facility] Last Admin: 06/24/18 21:39 Dose: 80 mg Clopidogrel Bisulfate (Plavix -) 75 mg PO DAILY [facility] Last Admin: 06/25/18 09:32 Dose: 75 mg Docusate Sodium (Colace -) 100 mg PO TID [facility] Last Admin: 06/25/18 06:27 Dose: 100 mg Heparin Sodium (Porcine) (Heparin -) 5,000 unit SQ BID [facility] Last Admin: 06/25/18 09:32 Dose: 5,000 unit Piperacillin Sod/Tazobactam (Sod 2.25 gm/ Dextrose) 50 mls @ 100 mls/hr IVPB Q8H-IV [facility]; Protocol Last Admin: 06/25/18 09:30 Dose: 100 mls/hr Insulin Detemir (Levemir Vial) 8 units SQ [facility] Last Admin: 06/24/18 21:41 Dose: 8 units Levothyroxine Sodium (Synthroid -) 25 mcg PO DAILY@0700 [facility] Last Admin: 06/25/18 06:27 Dose: 25 mcg Metoprolol Succinate (Toprol Xl -) 150 mg PO DAILY [facility] Last Admin: 06/25/18 09:31 Dose: 150 mg Morphine Sulfate (Morphine Sulfate) 4 mg IVPUSH Q6H PRN PRN Reason: PAIN LEVEL 7 - 10 Last Admin: 06/24/18 21:39 Dose: 4 mg Pantoprazole Sodium (Protonix -) 40 mg PO DAILY [facility] Last Admin: 06/25/18 09:32 Dose: 40 mg Sacubitril/Valsartan (Entresto 49 Mg-51 Mg Tablet) 1 tab PO BID [facility] Last Admin: 06/25/18 09:32 Dose: 1 tab Senna (Senna -) 1 tab PO HS [facility] Last Admin: 06/24/18 21:37 Dose: 1 tab - Objective Vital Signs: Vital Signs Temperature 97.6 F 06/25/18 08:41 Pulse Rate 85 06/25/18 08:41 Respiratory Rate 20 06/25/18 08:41 Blood Pressure 146/65 06/25/18 08:41 O2 Sat by Pulse Oximetry (%) 98 06/24/18 20:39 Constitutional: Yes: No Distress, Calm, Thin Neck: Yes: Supple Cardiovascular: Yes: Regular Rate and Rhythm Respiratory: Yes: Regular, Diminished, On Nasal O2 Gastrointestinal: Yes: Normal Bowel Sounds, Soft Edema: No Wound/Incision: Yes: Dressing Dry and Intact Labs: CBC, BMP 06/23/18 08:20 06/23/18 08:20 INR, PTT INR 1.03 (0.83-1.09) 06/14/18 07:10 Problem List - Problems (1) Cellulitis and abscess of foot Code(s): L03.119 - CELLULITIS OF UNSPECIFIED PART OF LIMB; L02.619 - CUTANEOUS ABSCESS OF UNSPECIFIED FOOT (2) Gangrene Code(s): I96 - GANGRENE, NOT ELSEWHERE CLASSIFIED (3) ASHD (arteriosclerotic heart disease) Code(s): I25.10 - ATHSCL HEART DISEASE OF [place] CORONARY ARTERY W/O ANG PCTRS (4) COPD (chronic obstructive pulmonary disease) Code(s): J44.9 - CHRONIC OBSTRUCTIVE PULMONARY DISEASE, UNSPECIFIED Qualifiers: COPD type: unspecified COPD Qualified Code(s): J44.9 - Chronic obstructive pulmonary disease, unspecified (5) Chronic HFrEF (heart failure with reduced ejection fraction) Code(s): I50.22 - CHRONIC SYSTOLIC (CONGESTIVE) HEART FAILURE (6) Diabetes Code(s): E11.9 - TYPE 2 DIABETES MELLITUS WITHOUT COMPLICATIONS Qualifiers: Diabetes mellitus type: type 2 Diabetes mellitus technician terminal and repeater insulin use: without technician terminal and repeater use Diabetes mellitus complication status: with neurologic complications (7) ESRD (end stage renal disease) Code(s): N18.6 - END STAGE RENAL DISEASE (8) HTN (hypertension) Code(s): I10 - ESSENTIAL (PRIMARY) HYPERTENSION Qualifiers: Hypertension type: essential hypertension Qualified Code(s): I10 - Essential (primary) hypertension (9) Hypothyroidism Code(s): E03.9 - HYPOTHYROIDISM, UNSPECIFIED Qualifiers: Hypothyroidism type: unspecified Qualified Code(s): E03.9 - Hypothyroidism , unspecified (10) ICD (implantable cardioverter-defibrillator) in place Code(s): Z95.810 - PRESENCE OF AUTOMATIC (IMPLANTABLE) CARDIAC DEFIBRILLATOR (11) Ischemic dilated cardiomyopathy Code(s): I25.5 - ISCHEMIC CARDIOMYOPATHY; I42.0 - DILATED CARDIOMYOPATHY (12) PVD (peripheral vascular disease) Code(s): I73.9 - PERIPHERAL VASCULAR DISEASE, UNSPECIFIED (13) S/P CABG (coronary artery bypass graft) Code(s): Z95.1 - PRESENCE OF AORTOCORONARY BYPASS GRAFT (14) S/P peripheral artery angioplasty with stent placement Code(s): Z95.820 - PERIPHERAL VASCULAR ANGIOPLASTY STATUS W IMPLANTS AND GRAFTS Assessment/Plan 1. s/p LLE angiogram s/p stent s/p gangrenous left great toe amputation 2. Chronic Systolic Heart Failure referable to ischemic dilated cardiomyopathy/ severe LV systolic dysfunction 3. CAD post remote [place] post CABG angina pectoris 4. Post prophylactic ICD implant ([employer]'s device) 5. HTN 6. IDDM 7. Hypercholesterolemia 8. PAD with persistent left toe gangrene despite h/o aortogram, LLE angiogram, SFA atherectomy, DCB SFA angioplasty, with sfa stent 9. ESRD on HD, right AVG with steal and hyperkalemia s/p right arm angiogram and DRIL procedure 10. Anemia of CKD 11. Hypothyroidism 12. History of GI bleed PLAN: 1. HD per nephrology, empiric abx per ID 2. Continue Toprol XL 150 qd 3. Continue Entresto 49/51 bid - monitor electrolytes 4. Continue ASA 81 qd and Plavix 75 qd 5. Continue Lipitor 80 qhs 6. DVT and GI prophylaxis 7. Wound care, complete empiric abx course, bowel regimen and enemas as needed
--- NOTE | 2018-06-25 11:54 | PN ---
Progress Note (short form) - Note Progress Note: awake/ comfortable wants enema-- feels constipated afebrile pain well controlled Vital Signs Temp 97.6 F 06/25/18 08:41 Pulse 85 06/25/18 08:41 Resp 20 06/25/18 08:41 BP 146/65 06/25/18 08:41 Pulse Ox 95 06/25/18 09:00 Intake & Output 06/24/18 06/24/18 06/25/18 11:59 23:59 11:59 Intake Total 50 80 30 Output Total 0 Balance 50 80 30 Weight 142 lb 142 lb 145 lb Intake: IVPB 50 50 Oral 30 30 Output: Urine 0 Void 0 Other: Voiding Method Urinal Urinal Bowel Movement No No Height 5 ft 9 in Body Mass Index (BMI) 20.9 Weight Measurement Method Built in Bedscale Built in Bedscale Active Medications Acetaminophen (Tylenol -) 650 mg PO Q4H PRN PRN Reason: PAIN 1-3 Last Admin: 06/23/18 08:07 Dose: 650 mg Aspirin (Asa -) 81 mg PO DAILY [facility] Last Admin: 06/25/18 09:32 Dose: 81 mg Atorvastatin Calcium (Lipitor -) 80 mg PO HS [facility] Last Admin: 06/24/18 21:39 Dose: 80 mg Clopidogrel Bisulfate (Plavix -) 75 mg PO DAILY [facility] Last Admin: 06/25/18 09:32 Dose: 75 mg Docusate Sodium (Colace -) 100 mg PO TID [facility] Last Admin: 06/25/18 06:27 Dose: 100 mg Heparin Sodium (Porcine) (Heparin -) 5,000 unit SQ BID [facility] Last Admin: 06/25/18 09:32 Dose: 5,000 unit Piperacillin Sod/Tazobactam (Sod 2.25 gm/ Dextrose) 50 mls @ 100 mls/hr IVPB Q8H-IV [facility]; Protocol Last Admin: 06/25/18 09:30 Dose: 100 mls/hr Insulin Detemir (Levemir Vial) 8 units SQ HS [facility] Last Admin: 06/24/18 21:41 Dose: 8 units Levothyroxine Sodium (Synthroid -) 25 mcg PO DAILY@0700 [facility] Last Admin: 06/25/18 06:27 Dose: 25 mcg Metoprolol Succinate (Toprol Xl -) 150 mg PO DAILY [facility] Last Admin: 06/25/18 09:31 Dose: 150 mg Pantoprazole Sodium (Protonix -) 40 mg PO DAILY [facility] Last Admin: 06/25/18 09:32 Dose: 40 mg Sacubitril/Valsartan (Entresto 49 Mg-51 Mg Tablet) 1 tab PO BID [facility] Last Admin: 06/25/18 09:32 Dose: 1 tab Senna (Senna -) 1 tab PO HS [facility] Last Admin: 06/24/18 21:37 Dose: 1 tab CBC, BMP 06/23/18 08:20 06/23/18 08:20 Physical Awake/ comfortable S1 S2 RRR Lungs decreased at bases Abd- soft, NT no edema left big toe -- dressing +-- s/p amputation A/P pod # 4 IV antibiotics per i/d f/u cultures HD per renal pain control-- discussed with nursing staff hep c +ve -- will discuss with renal - check viral load/ genotype-- ordered - tap water enema - pt is dnr - physical therapy - will follow Problem List - Problems (1) Hepatitis C antibody test positive Code(s): R76.8 - OTHER SPECIFIED ABNORMAL IMMUNOLOGICAL FINDINGS IN SERUM (2) ESRD (end stage renal disease) on dialysis Code(s): N18.6 - END STAGE RENAL DISEASE; Z99.2 - DEPENDENCE ON RENAL DIALYSIS (3) Gangrene Code(s): I96 - GANGRENE, NOT ELSEWHERE CLASSIFIED (4) ASHD (arteriosclerotic heart disease) Code(s): I25.10 - ATHSCL HEART DISEASE OF [place] CORONARY ARTERY W/O ANG PCTRS (5) Diabetes Code(s): E11.9 - TYPE 2 DIABETES MELLITUS WITHOUT COMPLICATIONS Qualifiers: Diabetes mellitus type: type 2 Diabetes mellitus penitentiary insulin use: without terminal gauger supervisor use Diabetes mellitus complication status: with neurologic complications (6) ESRD (end stage renal disease) Code(s): N18.6 - END STAGE RENAL DISEASE (7) Hypothyroidism Code(s): E03.9 - HYPOTHYROIDISM, UNSPECIFIED Qualifiers: Hypothyroidism type: unspecified Qualified Code(s): E03.9 - Hypothyroidism , unspecified (8) ICD (implantable cardioverter-defibrillator) in place Code(s): Z95.810 - PRESENCE OF AUTOMATIC (IMPLANTABLE) CARDIAC DEFIBRILLATOR (9) S/P CABG (coronary artery bypass graft) Code(s): Z95.1 - PRESENCE OF AORTOCORONARY BYPASS GRAFT (10) S/P peripheral artery angioplasty with stent placement Code(s): Z95.820 - PERIPHERAL VASCULAR ANGIOPLASTY STATUS W IMPLANTS AND GRAFTS
[2018-06-25] MEDS: ACETAMINOPHEN 325 MG TABLET (FP) PO PRN (14:32)
--- NOTE | 2018-06-25 14:45 | PN ---
Progress Note, Physician History of Present Illness: Pt seen and examined at bedside. He is awake and alert. He denies shortness of breath. - Current Medication List Current Medications: Active Medications Acetaminophen (Tylenol -) 650 mg PO Q4H PRN PRN Reason: PAIN 1-3 Last Admin: 06/25/18 14:32 Dose: 650 mg Aspirin (Asa -) 81 mg PO DAILY [facility] Last Admin: 06/25/18 09:32 Dose: 81 mg Atorvastatin Calcium (Lipitor -) 80 mg PO HS [facility] Last Admin: 06/24/18 21:39 Dose: 80 mg Clopidogrel Bisulfate (Plavix -) 75 mg PO DAILY [facility] Last Admin: 06/25/18 09:32 Dose: 75 mg Docusate Sodium (Colace -) 100 mg PO TID [facility] Last Admin: 06/25/18 13:17 Dose: 100 mg Heparin Sodium (Porcine) (Heparin -) 5,000 unit SQ BID [facility] Last Admin: 06/25/18 09:32 Dose: 5,000 unit Piperacillin Sod/Tazobactam (Sod 2.25 gm/ Dextrose) 50 mls @ 100 mls/hr IVPB Q8H-IV [facility]; Protocol Last Admin: 06/25/18 09:30 Dose: 100 mls/hr Insulin Detemir (Levemir Vial) 8 units SQ HS [facility] Last Admin: 06/24/18 21:41 Dose: 8 units Levothyroxine Sodium (Synthroid -) 25 mcg PO DAILY@0700 [facility] Last Admin: 06/25/18 06:27 Dose: 25 mcg Metoprolol Succinate (Toprol Xl -) 150 mg PO DAILY [facility] Last Admin: 06/25/18 09:31 Dose: 150 mg Pantoprazole Sodium (Protonix -) 40 mg PO DAILY [facility] Last Admin: 06/25/18 09:32 Dose: 40 mg Sacubitril/Valsartan (Entresto 49 Mg-51 Mg Tablet) 1 tab PO BID [facility] Last Admin: 06/25/18 09:32 Dose: 1 tab Senna (Senna -) 1 tab PO HS [facility] Last Admin: 06/24/18 21:37 Dose: 1 tab - Objective Vital Signs: Vital Signs Temperature 98.0 F 06/25/18 14:00 Pulse Rate 80 06/25/18 14:00 Respiratory Rate 21 06/25/18 14:00 Blood Pressure 144/96 09/17/18 14:00 O2 Sat by Pulse Oximetry (%) 95 06/25/18 09:00 Constitutional: Yes: Calm Eyes: Yes: Conjunctiva Clear HENT: Yes: Atraumatic Neck: Yes: Supple Cardiovascular: Yes: S1, S2 Respiratory: Yes: CTA Bilaterally, On Nasal O2 Gastrointestinal: Yes: Soft Genitourinary: Yes: WNL Musculoskeletal: Yes: Other (dressing in place) Edema: No Wound/Incision: Yes: Dressing Dry and Intact Neurological: Yes: Oriented Psychiatric: Yes: Oriented Labs: CBC, BMP 06/23/18 08:20 06/23/18 08:20 INR, PTT INR 1.03 (0.83-1.09) 06/14/18 07:10 Problem List - Problems (1) Cellulitis Code(s): L03.90 - CELLULITIS, UNSPECIFIED (2) ESRD (end stage renal disease) on dialysis Code(s): N18.6 - END STAGE RENAL DISEASE; Z99.2 - DEPENDENCE ON RENAL DIALYSIS (3) Gangrene Code(s): I96 - G[place]GR[place], NOT ELSEWHERE CLASSIFIED (4) COPD (chronic obstructive pulmonary disease) Code(s): J44.9 - CHRONIC OBSTRUCTIVE PULMONARY DISEASE, UNSPECIFIED Qualifiers: COPD type: unspecified COPD Qualified Code(s): J44.9 - Chronic obstructive pulmonary disease, unspecified Assessment/Plan Current Medications Generic Name Dose Route Start Last Admin Trade Name Freq PRN Reason Stop Dose Admin Acetaminophen 650 mg 06/21/18 15:55 06/25/18 14:32 Tylenol - PO 650 mg Q4H PRN Administration PAIN 1-3 Aspirin 81 mg 06/22/18 10:00 06/25/18 09:32 Asa - PO 81 mg DAILY [facility] Administration Atorvastatin Calcium 80 mg 06/21/18 22:00 06/24/18 21:39 Lipitor - PO 80 mg HS [facility] Administration Clopidogrel Bisulfate 75 mg 06/22/18 10:00 06/25/18 09:32 Plavix - PO 75 mg DAILY [facility] Administration Docusate Sodium 100 mg 06/21/18 22:00 06/25/18 13:17 Colace - PO 100 mg TID [facility] Administration Heparin Sodium (Porcine) 5,000 unit 06/21/18 22:00 06/25/18 09:32 Heparin - SQ 5,000 unit BID [facility] Administration Piperacillin Sod/Tazobactam 50 mls @ 100 mls/hr 06/21/18 18:00 06/25/18 09:30 Sod 2.25 gm/ Dextrose IVPB 100 mls/hr Q8H-IV [facility] Administration Protocol Insulin Detemir 8 units 06/21/18 22:00 06/24/18 21:41 Levemir Vial SQ 8 units HS [facility] Administration Levothyroxine Sodium 25 mcg 06/22/18 07:00 06/25/18 06:27 Synthroid - PO 25 mcg DAILY@0700 [facility] Administration Metoprolol Succinate 150 mg 06/22/18 10:00 06/25/18 09:31 Toprol Xl - PO 150 mg DAILY [facility] Administration Pantoprazole Sodium 40 mg 06/22/18 10:00 06/25/18 09:32 Protonix - PO 40 mg DAILY [facility] Administration Sacubitril/Valsartan 1 tab 06/24/18 10:00 06/25/18 09:32 Entresto 49 Mg-51 Mg Tablet PO 1 tab BID [facility] Administration Senna 1 tab 06/21/18 22:00 06/24/18 21:37 Senna - PO 1 tab HS [facility] Administration Impression 1. ESRD 2. toe gangrene 3. DM 4. CAD 5. PVD 6. DFU 7. anemia 8. hx steal syndrome s/p DRIL procedure 9. CHF 10. constipation 11. pos hep c ab Plan - HD tomorrow - GI follow up for hep C - cont abx per ID - renal diet - epogen for anemia - will follow Dr Dove
--- NOTE | 2018-06-25 16:29 | PN ---
Progress Note (short form) - Note Progress Note: s/p amputation of the first toe 06/21 s/p angiogram and stent placement 06/15 feels better, less foot pain Vital Signs Period Temp Pulse Resp BP Sys/Lopez Pulse Ox Last 24 Hr 97.6 F-99.0 F 80-85 20-21 140-153/60-96 95-98 cor-rrr lungs clear abd soft,nt ext amputation site, no erythema or drainage, molly intact CBC, BMP 06/23/18 08:20 06/23/18 08:20 a/p s/p amputation of the big toe-await pathology cellulitis PAD esrd/hd continue zosyn Problem List - Problems (1) Cellulitis Code(s): L03.90 - CELLULITIS, UNSPECIFIED (2) Gangrene Code(s): I96 - [place]ANGR[place], NOT ELSEWHERE CLASSIFIED (3) PVD (peripheral vascular disease) Code(s): I73.9 - PERIPHERAL VASCULAR DISEASE, UNSPECIFIED (4) ESRD (end stage renal disease) on dialysis Code(s): N18.6 - END STAGE RENAL DISEASE; Z99.2 - DEPENDENCE ON RENAL DIALYSIS
--- NOTE | 2018-06-25 16:57 | PATH ---
Surgical Pathology Report Patient Name: JING KIM [facility]. Rec. #: [id number] /Age/Gender: 1945 (Age: 72) / M Account: [id number] Location: [address] [place] [address]/[facility] Taken: 06/21/2018 Received: 06/22/2018 Reported: 06/25/2018 Physicians: Deandra Briceño DPM Specimen(s) Received A: LEFT FIRST TOE B: PROXIMAL BONE LEFT 1ST TOE Clinical History Gangrene left first toe Final Diagnosis A. LEFT 1ST TOE, AMPUTATION: AMPUTATED TOE SHOWING GANGRENOUS NECROSIS WITH SEVERE ACUTE AND CHRONIC INFLAMMATION, ABSCESS FORMATION, INVOLVING SKIN AND SOFT TISSUE MARGIN. BONE WITH ACUTE OSTEOMYELITIS. OSTEOMYELITIS PRESENT AT THE BONE MARGIN. B. PROXIMAL BONE LEFT FIRST TOE, EXCISION: PORTION OF BONE WITH FOCAL ACUTE OSTEOMYELITIS. Electronically Signed Kayce Campbell M.D. Gross Description A. Received in formalin labeled "left first toe," is a 4.5 x 2.5 x 2.5 cm toe amputation. The entire epidermal surface, including the margin, displays a black green, gangrenous lesion. The lesion involves the underlying bone as well as the bone margin. [employer] sections are submitted in 2 cassettes as follows: 1-bone and skin margin, following decalcification; 2-additional section of lesion with underlying bone, following decalcification. B. Received in formalin labeled "proximal bone left first toe," is a 2.2 x 1.9 x 1.6 cm portion of bone with smooth articular cartilage at one end and smooth trabecular growth at the opposing end. [employer] sections are submitted in 2 cassettes as follows: 1-end with articular cartilage, following decalcification; 2-end with trabecular bone, following decalcification. 06/22/2018 saudi06/22/2018
[2018-06-25] MEDS: INSULIN (LEVEMIR) 100 UNITS/ML UNITS SQ SCH (21:00)
[2018-06-25] MEDS: SENNOSIDES 8.6MG TABLET (FP) PO SCH (21:00)
[2018-06-25] MEDS: ATORVASTATIN CA 80 MG TABLET (FP) PO SCH (21:00)
[2018-06-25] MEDS ORDERED: PT OWN MED DRAWER 7, Y5N ONE (21:03)
[2018-06-26] MEDS ORDERED: DEXTROSE 5%-WATER - 50 ML IVPB ONE ×3 (01:22→16:01)
[2018-06-26] MEDS ORDERED: PIPERACILLIN/TAZOBACTAM 2.25 GM VIAL IVPB ONE ×3 (01:22→16:01)
[2018-06-26] MEDS: PIPERACILLIN/TAZOB 2.25 GM 2.25 GM in DEXTROSE 5%-WATER - 50 ML IVPB SCH ×3 (01:34→18:15)
[2018-06-26] MEDS: DOCUSATE SODIUM 100 MG CAPSULE (FP) PO SCH ×3 (05:55→21:31)
[2018-06-26] MEDS: LEVOTHYROXINE NA 25 MCG TABLET (FP) PO SCH (06:14)
[2018-06-26] MEDS ORDERED: HEPARIN NA (PORCINE) 5,000 UNITS/ML 1ML VIAL IVPUSH ONE (07:15)
[2018-06-26] MEDS ORDERED: SODIUM CHLORIDE 250 ML IV PRN (07:15)
[2018-06-26] MEDS ORDERED: EPOETIN ALFA 3,000 UNIT/1 ML ML IVPUSH ONE (09:00)
[2018-06-26 09:03] LABS: HEMATOCRIT 28.1 % (35.4-49); HEMOGLOBIN 9.1 GM/dL (11.7-16.9); MCH 28.9 pg (25.7-33.7); MCHC 32.5 g/dl (32.0-35.9); MEAN CELL VOLUME 88.8 fl (80-96); MEAN PLT VOLUME 9.5 fl (7.5-11.1); PLATELET COUNT 334 K/MM3 (134-434); RBC 3.16 M/mm3 (4.00-5.60); RDW 16.8 % (11.9-15.9); WHITE BLOOD COUNT 9.1 K/mm3 (4.0-10.0)
[2018-06-26 09:28] LABS: ANION GAP 16 MMOL/L (8-16); BLOOD UREA NITROGEN 33 mg/dL (7-18); CALCIUM 7.5 mg/dL (8.5-10.1); CHLORIDE 98 mmol/L (98-107); CO2 26 mmol/L (21-32); CREATININE 7.4 mg/dL (0.55-1.3); GLUCOSE,RANDOM 127 mg/dL (74-106); POTASSIUM 4.4 mmol/L (3.5-5.1); SODIUM 140 mmol/L (136-145)
--- NOTE | 2018-06-26 12:21 | PN ---
Progress Note (short form) - Note Progress Note: s/p angiogram,angioplasty and stent s/p amputation no distress pt examined- Vital Signs - 24 hr 06/25/18 06/25/18 06/26/18 19:00 20:01 06:00 Temperature 98.3 F 98.4 F Pulse Rate 80 84 Respiratory 20 20 20 Rate Blood Pressure 121/72 137/77 O2 Sat by Pulse 98 Oximetry (%) 06/26/18 06/26/18 06/26/18 08:20 08:25 08:30 Temperature 97.4 F L 98.1 F Pulse Rate 80 62 84 Respiratory 20 18 18 Rate Blood Pressure 152/67 141/82 150/73 O2 Sat by Pulse Oximetry (%) 06/26/18 06/26/18 06/26/18 09:00 09:30 10:00 Temperature Pulse Rate 84 85 88 Respiratory 18 18 18 Rate Blood Pressure 138/68 140/58 164/89 O2 Sat by Pulse Oximetry (%) 06/26/18 06/26/18 06/26/18 10:30 11:00 11:30 Temperature Pulse Rate 83 84 85 Respiratory 18 18 18 Rate Blood Pressure 172/72 156/73 163/73 O2 Sat by Pulse Oximetry (%) 06/26/18 06/26/18 06/26/18 12:00 12:05 14:41 Temperature 98.7 F Pulse Rate 84 82 80 Respiratory 18 18 20 Rate Blood Pressure 170/88 168/8 140/69 O2 Sat by Pulse Oximetry (%) Current Medications Generic Name Dose Route Start Last Admin Trade Name Freq PRN Reason Stop Dose Admin Acetaminophen 650 mg 06/21/18 15:55 06/25/18 14:32 Tylenol - PO 650 mg Q4H PRN Administration PAIN 1-3 Aspirin 81 mg 06/22/18 10:00 06/26/18 12:43 Asa - PO 81 mg DAILY [facility] Administration Atorvastatin Calcium 80 mg 06/21/18 22:00 06/25/18 21:00 Lipitor - PO 80 mg HS [facility] Administration Clopidogrel Bisulfate 75 mg 06/22/18 10:00 06/26/18 12:51 Plavix - PO 75 mg DAILY [facility] Administration Docusate Sodium 100 mg 06/21/18 22:00 06/26/18 14:13 Colace - PO 100 mg TID [facility] Administration Heparin Sodium (Porcine) 5,000 unit 06/21/18 22:00 06/26/18 12:50 Heparin - SQ 5,000 unit BID [facility] Administration Piperacillin Sod/Tazobactam 50 mls @ 100 mls/hr 06/21/18 18:00 06/26/18 18:15 Sod 2.25 gm/ Dextrose IVPB 100 mls/hr Q8H-IV [facility] Administration Protocol Insulin Detemir 8 units 06/21/18 22:00 06/25/18 21:00 Levemir Vial SQ 8 units HS [facility] Administration Levothyroxine Sodium 25 mcg 06/22/18 07:00 06/26/18 06:14 Synthroid - PO 25 mcg DAILY@0700 [facility] Administration Metoprolol Succinate 150 mg 06/22/18 10:00 06/26/18 12:51 Toprol Xl - PO 150 mg DAILY [facility] Administration Oxycodone HCl 10 mg 06/26/18 13:08 06/26/18 14:10 Roxicodone - PO 10 mg Q4H PRN Administration PAIN LEVEL 6-10 Pantoprazole Sodium 40 mg 06/22/18 10:00 06/26/18 12:51 Protonix - PO 40 mg DAILY [facility] Administration Sacubitril/Valsartan 1 tab 06/24/18 10:00 06/26/18 12:50 Entresto 49 Mg-51 Mg Tablet PO 1 tab BID [facility] Administration Senna 1 tab 06/21/18 22:00 06/25/18 21:00 Senna - PO 1 tab HS [facility] Administration Laboratory Results - last 24 hr 06/24/18 06/24/18 06/25/18 21:36 21:39 20:57 WBC RBC Hgb Hct MCV MCH MCHC RDW Plt Count MPV Sodium Potassium Chloride Carbon Dioxide Anion Gap BUN Creatinine Creat Clearance w eGFR POC Glucometer 313 310 286 Random Glucose Calcium 06/26/18 06/26/18 06/26/18 05:52 08:30 08:30 WBC 9.1 RBC 3.16 L Hgb 9.1 L Hct 28.1 L MCV 88.8 MCH 28.9 MCHC 32.5 RDW 16.8 H Plt Count 334 MPV 9.5 Sodium 140 Potassium 4.4 Chloride 98 Carbon Dioxide 26 Anion Gap 16 BUN 33 H Creatinine 7.4 H Creat Clearance w eGFR 7.29 POC Glucometer 114 Random Glucose 127 H Calcium 7.5 L S1 S2 RRR Lungs decreased Abd- soft, NT no edema dressing in foot A/P Hep C + but RNA negative- ?false positive IV antibiotics HD per renal pain control stool softeners, enemas Problem List - Problems (1) Gangrene Code(s): I96 - GANGRENE, NOT ELSEWHERE CLASSIFIED (2) Infection of toe Code(s): L08.9 - LOCAL INFECTION OF THE SKIN AND SUBCUTANEOUS TISSUE, UNSP (3) ASHD (arteriosclerotic heart disease) Code(s): I25.10 - ATHSCL HEART DISEASE OF [place] CORONARY ARTERY W/O ANG PCTRS (4) Anemia Code(s): D64.9 - ANEMIA, UNSPECIFIED (5) CHF (congestive heart failure), NYHA class IV Code(s): I50.9 - HEART FAILURE, UNSPECIFIED Qualifiers: Congestive heart failure type: systolic Congestive heart failure chronicity : chronic Qualified Code(s): I50.22 - Chronic systolic (congestive) heart failure
[2018-06-26] MEDS: ASPIRIN 81 MG CHEWABLE TABLETS PO SCH (12:43)
[2018-06-26] MEDS: HEPARIN NA (PORCINE) 5,000 UNITS/ML 1ML VIAL SQ SCH ×2 (12:50→21:31)
[2018-06-26] MEDS: SACUBITRIL/VALSARTAN 49 MG-51 MG TABLET PO SCH ×2 (12:50→21:39)
[2018-06-26] MEDS: CLOPIDOGREL BISULFATE 75 MG TABLET (FP) PO SCH (12:51)
[2018-06-26] MEDS: PANTOPRAZOLE 40 MG TABLET (FP) PO SCH (12:51)
[2018-06-26] MEDS: oxyCODONE HCL 5 MG TABLET PO PRN (14:10)
--- NOTE | 2018-06-26 14:23 | PN ---
Progress Note, Physician Chief Complaint: Events noted. Not in distress Being dialyzed History of Present Illness: Patient was seen and examined. Awake and alert. Chart was reviewed Denies chest pain, SOB or palpitations Seen during dialysis - Current Medication List Current Medications: Active Medications Acetaminophen (Tylenol -) 650 mg PO Q4H PRN PRN Reason: PAIN 1-3 Last Admin: 06/25/18 14:32 Dose: 650 mg Aspirin (Asa -) 81 mg PO DAILY [facility] Last Admin: 06/26/18 12:43 Dose: 81 mg Atorvastatin Calcium (Lipitor -) 80 mg PO HS [facility] Last Admin: 06/25/18 21:00 Dose: 80 mg Clopidogrel Bisulfate (Plavix -) 75 mg PO DAILY [facility] Last Admin: 06/26/18 12:51 Dose: 75 mg Docusate Sodium (Colace -) 100 mg PO TID [facility] Last Admin: 06/26/18 14:13 Dose: 100 mg Heparin Sodium (Porcine) (Heparin -) 5,000 unit SQ BID [facility] Last Admin: 06/26/18 12:50 Dose: 5,000 unit Piperacillin Sod/Tazobactam (Sod 2.25 gm/ Dextrose) 50 mls @ 100 mls/hr IVPB Q8H-IV [facility]; Protocol Last Admin: 06/26/18 12:42 Dose: 100 mls/hr Insulin Detemir (Levemir Vial) 8 units SQ [facility] Last Admin: 06/25/18 21:00 Dose: 8 units Levothyroxine Sodium (Synthroid -) 25 mcg PO DAILY@0700 [facility] Last Admin: 06/26/18 06:14 Dose: 25 mcg Metoprolol Succinate (Toprol Xl -) 150 mg PO DAILY [facility] Last Admin: 06/26/18 12:51 Dose: 150 mg Oxycodone HCl (Roxicodone -) 10 mg PO Q4H PRN PRN Reason: PAIN LEVEL 6-10 Last Admin: 06/26/18 14:10 Dose: 10 mg Pantoprazole Sodium (Protonix -) 40 mg PO DAILY [facility] Last Admin: 06/26/18 12:51 Dose: 40 mg Sacubitril/Valsartan (Entresto 49 Mg-51 Mg Tablet) 1 tab PO BID [facility] Last Admin: 06/26/18 12:50 Dose: 1 tab Senna (Senna -) 1 tab PO [facility] Last Admin: 06/25/18 21:00 Dose: 1 tab - Objective Vital Signs: Vital Signs Temperature 98.1 F 06/26/18 08:25 Pulse Rate 82 06/26/18 12:05 Respiratory Rate 18 06/26/18 12:05 Blood Pressure 168/8 06/26/18 12:05 O2 Sat by Pulse Oximetry (%) 98 06/25/18 20:01 Neck: Yes: Supple Cardiovascular: Yes: Regular Rate and Rhythm, S1, S2 Respiratory: Yes: CTA Bilaterally Gastrointestinal: Yes: Normal Bowel Sounds, Soft. No: Tenderness Extremities: Yes: Amputation Edema: No Labs: CBC, BMP 06/26/18 08:30 06/26/18 08:30 Problem List - Problems (1) ESRD (end stage renal disease) on dialysis Code(s): N18.6 - END STAGE RENAL DISEASE; Z99.2 - DEPENDENCE ON RENAL DIALYSIS (2) Gangrene Code(s): I96 - GANGRENE, NOT ELSEWHERE CLASSIFIED (3) Infection of toe Code(s): L08.9 - LOCAL INFECTION OF THE SKIN AND SUBCUTANEOUS TISSUE, UNSP (4) ASHD (arteriosclerotic heart disease) Code(s): I25.10 - ATHSCL HEART DISEASE OF [place] CORONARY ARTERY W/O ANG PCTRS (5) Anemia Code(s): D64.9 - ANEMIA, UNSPECIFIED (6) CHF (congestive heart failure), NYHA class IV Code(s): I50.9 - HEART FAILURE, UNSPECIFIED Qualifiers: Congestive heart failure type: systolic Congestive heart failure chronicity : chronic Qualified Code(s): I50.22 - Chronic systolic (congestive) heart failure (7) COPD (chronic obstructive pulmonary disease) Code(s): J44.9 - CHRONIC OBSTRUCTIVE PULMONARY DISEASE, UNSPECIFIED Qualifiers: COPD type: unspecified COPD Qualified Code(s): J44.9 - Chronic obstructive pulmonary disease, unspecified (8) Chronic HFrEF (heart failure with reduced ejection fraction) Code(s): I50.22 - CHRONIC SYSTOLIC (CONGESTIVE) HEART FAILURE (9) Diabetes Code(s): E11.9 - TYPE 2 DIABETES MELLITUS WITHOUT COMPLICATIONS Qualifiers: Diabetes mellitus type: type 2 Diabetes mellitus heat treat inspector insulin use: without heat treat inspector use Diabetes mellitus complication status: with neurologic complications (10) ESRD (end stage renal disease) Code(s): N18.6 - END STAGE RENAL DISEASE (11) HTN (hypertension) Code(s): I10 - ESSENTIAL (PRIMARY) HYPERTENSION Qualifiers: Hypertension type: essential hypertension Qualified Code(s): I10 - Essential (primary) hypertension (12) Hypothyroidism Code(s): E03.9 - HYPOTHYROIDISM, UNSPECIFIED Qualifiers: Hypothyroidism type: unspecified Qualified Code(s): E03.9 - Hypothyroidism , unspecified (13) ICD (implantable cardioverter-defibrillator) in place Code(s): Z95.810 - PRESENCE OF AUTOMATIC (IMPLANTABLE) CARDIAC DEFIBRILLATOR (14) Ischemic dilated cardiomyopathy Code(s): I25.5 - ISCHEMIC CARDIOMYOPATHY; I42.0 - DILATED CARDIOMYOPATHY (15) PVD (peripheral vascular disease) Code(s): I73.9 - PERIPHERAL VASCULAR DISEASE, UNSPECIFIED (16) S/P CABG (coronary artery bypass graft) Code(s): Z95.1 - PRESENCE OF AORTOCORONARY BYPASS GRAFT (17) S/P peripheral artery angioplasty with stent placement Code(s): Z95.820 - PERIPHERAL VASCULAR ANGIOPLASTY STATUS W IMPLANTS AND GRAFTS Assessment/Plan 1. LLE angiogram s/p stent s/p toe amputation 2. Chronic Systolic Heart Failure referable to ischemic dilated cardiomyopathy/ severe LV systolic dysfunction 3. CAD post remote MA post CABG angina pectoris 4. Post prophylactic ICD implant ([employer]'s device) 5. HTN 6. IDDM 7. Hypercholesterolemia 8. PAD with persistent left toe gangrene despite h/o aortogram, LLE angiogram, SFA atherectomy, DCB SFA angioplasty, with sfa stent 9. ESRD on HD, right AVG with steal and hyperkalemia s/p right arm angiogram and DRIL procedure 10. Anemia of CKD 11. Hypothyroidism 12. History of GI bleed PLAN: 1. HD per nephrology and empiric antibiotic per ID 2. Continue Toprol XL 150 qd 3. Continue Entresto 49/51 bid and monitor electrolytes 4. Continue ASA 81 qd and Plavix 75 qd 5. Continue Lipitor 80 qhs 6. DVT and GI prophylaxis 7. Wound care Jarocho Taylor MD
--- NOTE | 2018-06-26 15:04 | PN ---
Progress Note, Physician History of Present Illness: Pt seen and examined at bedside. He is awake and alert. He tolerated HD today. - Current Medication List Current Medications: Active Medications Acetaminophen (Tylenol -) 650 mg PO Q4H PRN PRN Reason: PAIN 1-3 Last Admin: 06/25/18 14:32 Dose: 650 mg Aspirin (Asa -) 81 mg PO DAILY [facility] Last Admin: 06/26/18 12:43 Dose: 81 mg Atorvastatin Calcium (Lipitor -) 80 mg PO HS [facility] Last Admin: 06/25/18 21:00 Dose: 80 mg Clopidogrel Bisulfate (Plavix -) 75 mg PO DAILY [facility] Last Admin: 06/26/18 12:51 Dose: 75 mg Docusate Sodium (Colace -) 100 mg PO TID [facility] Last Admin: 06/26/18 14:13 Dose: 100 mg Heparin Sodium (Porcine) (Heparin -) 5,000 unit SQ BID [facility] Last Admin: 06/26/18 12:50 Dose: 5,000 unit Piperacillin Sod/Tazobactam (Sod 2.25 gm/ Dextrose) 50 mls @ 100 mls/hr IVPB Q8H-IV [facility]; Protocol Last Admin: 06/26/18 12:42 Dose: 100 mls/hr Insulin Detemir (Levemir Vial) 8 units SQ HS [facility] Last Admin: 06/25/18 21:00 Dose: 8 units Levothyroxine Sodium (Synthroid -) 25 mcg PO DAILY@0700 [facility] Last Admin: 06/26/18 06:14 Dose: 25 mcg Metoprolol Succinate (Toprol Xl -) 150 mg PO DAILY [facility] Last Admin: 06/26/18 12:51 Dose: 150 mg Oxycodone HCl (Roxicodone -) 10 mg PO Q4H PRN PRN Reason: PAIN LEVEL 6-10 Last Admin: 06/26/18 14:10 Dose: 10 mg Pantoprazole Sodium (Protonix -) 40 mg PO DAILY [facility] Last Admin: 06/26/18 12:51 Dose: 40 mg Sacubitril/Valsartan (Entresto 49 Mg-51 Mg Tablet) 1 tab PO BID [facility] Last Admin: 06/26/18 12:50 Dose: 1 tab Senna (Senna -) 1 tab PO [facility] Last Admin: 06/25/18 21:00 Dose: 1 tab - Objective Vital Signs: Vital Signs Temperature 98.7 F 06/26/18 14:41 Pulse Rate 80 06/26/18 14:41 Respiratory Rate 20 06/26/18 14:41 Blood Pressure 140/69 06/26/18 14:41 O2 Sat by Pulse Oximetry (%) 98 06/25/18 20:01 Constitutional: Yes: Calm Eyes: Yes: Conjunctiva Clear HENT: Yes: Atraumatic Neck: Yes: Supple Cardiovascular: Yes: S1, S2 Respiratory: Yes: CTA Bilaterally Gastrointestinal: Yes: Normal Bowel Sounds, Soft Genitourinary: Yes: WNL Edema: No Wound/Incision: Yes: Dressing Dry and Intact Neurological: Yes: Oriented Psychiatric: Yes: Oriented Labs: CBC, BMP 06/26/18 08:30 06/26/18 08:30 INR, PTT INR 1.03 (0.83-1.09) 06/14/18 07:10 Problem List - Problems (1) Cellulitis Code(s): L03.90 - CELLULITIS, UNSPECIFIED (2) ESRD (end stage renal disease) on dialysis Code(s): N18.6 - END STAGE RENAL DISEASE; Z99.2 - DEPENDENCE ON RENAL DIALYSIS (3) Gangrene Code(s): I96 - [place], NOT ELSEWHERE CLASSIFIED (4) COPD (chronic obstructive pulmonary disease) Code(s): J44.9 - CHRONIC OBSTRUCTIVE PULMONARY DISEASE, UNSPECIFIED Qualifiers: COPD type: unspecified COPD Qualified Code(s): J44.9 - Chronic obstructive pulmonary disease, unspecified Assessment/Plan Current Medications Generic Name Dose Route Start Last Admin Trade Name Freq PRN Reason Stop Dose Admin Acetaminophen 650 mg 06/21/18 15:55 06/25/18 14:32 Tylenol - PO 650 mg Q4H PRN Administration PAIN 1-3 Aspirin 81 mg 06/22/18 10:00 06/26/18 12:43 Asa - PO 81 mg DAILY [facility] Administration Atorvastatin Calcium 80 mg 06/21/18 22:00 06/25/18 21:00 Lipitor - PO 80 mg HS [facility] Administration Clopidogrel Bisulfate 75 mg 06/22/18 10:00 06/26/18 12:51 Plavix - PO 75 mg DAILY [facility] Administration Docusate Sodium 100 mg 06/21/18 22:00 06/26/18 14:13 Colace - PO 100 mg TID [facility] Administration Heparin Sodium (Porcine) 5,000 unit 06/21/18 22:00 06/26/18 12:50 Heparin - SQ 5,000 unit BID [facility] Administration Piperacillin Sod/Tazobactam 50 mls @ 100 mls/hr 06/21/18 18:00 06/26/18 12:42 Sod 2.25 gm/ Dextrose IVPB 100 mls/hr Q8H-IV [facility] Administration Protocol Insulin Detemir 8 units 06/21/18 22:00 06/25/18 21:00 Levemir Vial SQ 8 units HS [facility] Administration Levothyroxine Sodium 25 mcg 06/22/18 07:00 06/26/18 06:14 Synthroid - PO 25 mcg DAILY@0700 [facility] Administration Metoprolol Succinate 150 mg 06/22/18 10:00 06/26/18 12:51 Toprol Xl - PO 150 mg DAILY [facility] Administration Oxycodone HCl 10 mg 06/26/18 13:08 06/26/18 14:10 Roxicodone - PO 10 mg Q4H PRN Administration PAIN LEVEL 6-10 Pantoprazole Sodium 40 mg 06/22/18 10:00 06/26/18 12:51 Protonix - PO 40 mg DAILY [facility] Administration Sacubitril/Valsartan 1 tab 06/24/18 10:00 06/26/18 12:50 Entresto 49 Mg-51 Mg Tablet PO 1 tab BID [facility] Administration Senna 1 tab 06/21/18 22:00 06/25/18 21:00 Senna - PO 1 tab HS [facility] Administration Impression 1. ESRD 2. toe gangrene 3. DM 4. CAD 5. PVD 6. DFU 7. anemia 8. hx steal syndrome s/p DRIL procedure 9. CHF 10. constipation 11. pos hep c ab Plan - HD today - cont wound care - GI follow up for hep C - cont abx per ID - renal diet - epogen for anemia - will follow Dr Dove
--- NOTE | 2018-06-26 18:57 | PN ---
Progress Note (short form) - Note Progress Note: s/p amputation of the first toe 06/21 s/p angiogram and stent placement 06/15 Vital Signs Period Temp Pulse Resp BP Sys/Lopez Pulse Ox Last 24 Hr 97.4 F-98.7 F 62-88 18-20 121-172/8-89 98 cor-rrr lungs clear foot bandaged pathology +osteomyelitis at the margins CBC, BMP 06/26/18 08:30 06/26/18 08:30 Microbiology 06/21/18 14:00 Foot - Left Gram Stain - Final 06/21/18 14:00 Foot - Left Wound Culture - Final Proteus Mirabilis Diphtheroid/Corynebacterium 06/13/18 23:30 Blood - Peripheral Venous Blood Culture - Final NO GROWTH AFTER 5 DAYS INCUBATION 06/14/18 07:00 Toe - Left Hallux Gram Stain - Final 06/14/18 07:00 Toe - Left Hallux Wound Culture - Final Diphtheroid/Corynebacterium Proteus Mirabilis 06/13/18 23:30 Blood - Peripheral Venous Blood Culture - Final Staphylococcus Epidermidis 06/13/18 23:30 Urine - Urine Clean Catch Urine Culture - Final NO GROWTH OBTAINED a/p s/p amputation of the big toe-+margins,switch to ancef 2/2/3 with hd and treat for another 5 weeks on HD PAD esrd/hd will get esr/crp to follow as out pt can see patient in followup at wound care with podiatry Problem List - Problems (1) Cellulitis Code(s): L03.90 - CELLULITIS, UNSPECIFIED (2) Gangrene Code(s): I96 - [place]ANGR[place], NOT ELSEWHERE CLASSIFIED (3) PVD (peripheral vascular disease) Code(s): I73.9 - PERIPHERAL VASCULAR DISEASE, UNSPECIFIED (4) ESRD (end stage renal disease) on dialysis Code(s): N18.6 - END STAGE RENAL DISEASE; Z99.2 - DEPENDENCE ON RENAL DIALYSIS
[2018-06-26] MEDS: SENNOSIDES 8.6MG TABLET (FP) PO SCH (21:31)
[2018-06-26] MEDS: ATORVASTATIN CA 80 MG TABLET (FP) PO SCH (21:31)
[2018-06-26] MEDS: INSULIN (LEVEMIR) 100 UNITS/ML UNITS SQ SCH (21:33)
[2018-06-26] MEDS ORDERED: PT OWN MED DRAWER 7, Y5N ONE (21:35)
[2018-06-26] MEDS ORDERED: DOCUSATE SODIUM 100 MG CAPSULE (FP) PO ONE (22:45)
[2018-06-27] MEDS ORDERED: PIPERACILLIN/TAZOBACTAM 2.25 GM VIAL IVPB ONE ×2 (00:51→10:31)
[2018-06-27] MEDS ORDERED: DEXTROSE 5%-WATER - 50 ML IVPB ONE ×2 (00:51→10:31)
[2018-06-27] MEDS: PIPERACILLIN/TAZOB 2.25 GM 2.25 GM in DEXTROSE 5%-WATER - 50 ML IVPB SCH ×3 (01:26→18:33)
[2018-06-27] MEDS: DOCUSATE SODIUM 100 MG CAPSULE (FP) PO SCH ×3 (05:58→22:18)
[2018-06-27] MEDS: LEVOTHYROXINE NA 25 MCG TABLET (FP) PO SCH (06:10)
[2018-06-27] MEDS: ASPIRIN 81 MG CHEWABLE TABLETS PO SCH (10:45)
[2018-06-27] MEDS: HEPARIN NA (PORCINE) 5,000 UNITS/ML 1ML VIAL SQ SCH ×2 (10:45→22:18)
[2018-06-27] MEDS: CLOPIDOGREL BISULFATE 75 MG TABLET (FP) PO SCH (10:45)
[2018-06-27] MEDS: PANTOPRAZOLE 40 MG TABLET (FP) PO SCH (10:45)
[2018-06-27] MEDS: SACUBITRIL/VALSARTAN 49 MG-51 MG TABLET PO SCH (10:46)
--- NOTE | 2018-06-27 11:30 | PN ---
Progress Note (short form) - Note Progress Note: s/p angiogram,angioplasty and stent s/p amputation c/o constipation pt examined- Vital Signs - 24 hr Vital Signs - 24 hr 06/26/18 06/26/18 06/26/18 11:30 12:00 12:05 Temperature Pulse Rate 85 84 82 Respiratory 18 18 18 Rate Blood Pressure 163/73 170/88 168/8 O2 Sat by Pulse Oximetry (%) 06/26/18 06/26/18 06/26/18 14:41 19:44 21:00 Temperature 98.7 F 99.3 F Pulse Rate 80 84 Respiratory 20 21 Rate Blood Pressure 140/69 147/62 O2 Sat by Pulse 98 Oximetry (%) 06/27/18 06/27/18 05:55 09:00 Temperature 98.8 F 97.7 F Pulse Rate 85 80 Respiratory 20 20 Rate Blood Pressure 148/70 151/71 O2 Sat by Pulse Oximetry (%) Current Medications Generic Name Dose Route Start Last Admin Trade Name Freq PRN Reason Stop Dose Admin Acetaminophen 650 mg 06/21/18 15:55 06/25/18 14:32 Tylenol - PO 650 mg Q4H PRN Administration PAIN 1-3 Aspirin 81 mg 06/22/18 10:00 06/27/18 10:45 Asa - PO 81 mg DAILY [facility] Administration Atorvastatin Calcium 80 mg 06/21/18 22:00 06/26/18 21:31 Lipitor - PO 80 mg HS [facility] Administration Clopidogrel Bisulfate 75 mg 06/22/18 10:00 06/27/18 10:45 Plavix - PO 75 mg DAILY [facility] Administration Docusate Sodium 100 mg 06/21/18 22:00 06/27/18 05:58 Colace - PO 100 mg TID [facility] Administration Heparin Sodium (Porcine) 5,000 unit 06/21/18 22:00 06/27/18 10:45 Heparin - SQ 5,000 unit BID [facility] Administration Piperacillin Sod/Tazobactam 50 mls @ 100 mls/hr 06/21/18 18:00 06/27/18 10:44 Sod 2.25 gm/ Dextrose IVPB 100 mls/hr Q8H-IV [facility] Administration Protocol Insulin Detemir 8 units 06/21/18 22:00 06/26/18 21:33 Levemir Vial SQ 8 units HS [facility] Administration Levothyroxine Sodium 25 mcg 06/22/18 07:00 06/27/18 06:10 Synthroid - PO 25 mcg DAILY@0700 [facility] Administration Metoprolol Succinate 150 mg 06/22/18 10:00 06/27/18 10:45 Toprol Xl - PO 150 mg DAILY [facility] Administration Mineral Oil 133 ml 06/27/18 11:17 Fleet Mineral Oil Rectal Enema - [place] 06/27/18 11:18 NOW ONE Oxycodone HCl 10 mg 06/26/18 13:08 06/26/18 14:10 Roxicodone - PO 10 mg Q4H PRN Administration PAIN LEVEL 6-10 Pantoprazole Sodium 40 mg 06/22/18 10:00 06/27/18 10:45 Protonix - PO 40 mg DAILY [facility] Administration Sacubitril/Valsartan 1 tab 06/24/18 10:00 06/27/18 10:46 Entresto 49 Mg-51 Mg Tablet PO 1 tab BID [facility] Administration Senna 1 tab 06/21/18 22:00 06/26/18 21:31 Senna - PO 1 tab HS [facility] Administration Laboratory Results - last 24 hr 06/25/18 06/26/18 06/27/18 06:10 21:29 05:41 ESR POC Glucometer 286 169 C-Reactive Protein HCV Quantitation Hcv not detected Hepatitis C RNA TNP 06/27/18 06/27/18 06:30 06:30 ESR 94 H POC Glucometer C-Reactive Protein 7.3 H HCV Quantitation Hepatitis C RNA S1 S2 RRR Lungs decreased Abd- soft, NT no edema dressing in foot A/P Hep C + but RNA negative- ?false positive IV antibiotics HD per renal gi eval pain control stool softeners, enemas Problem List - Problems (1) Gangrene Code(s): I96 - [place]ANGR[place], NOT ELSEWHERE CLASSIFIED (2) Infection of toe Code(s): L08.9 - LOCAL INFECTION OF THE SKIN AND SUBCUTANEOUS TISSUE, UNSP (3) ASHD (arteriosclerotic heart disease) Code(s): I25.10 - ATHSCL HEART DISEASE OF [place] CORONARY ARTERY W/O ANG PCTRS (4) Anemia Code(s): D64.9 - ANEMIA, UNSPECIFIED (5) CHF (congestive heart failure), NYHA class IV Code(s): I50.9 - HEART FAILURE, UNSPECIFIED Qualifiers: Congestive heart failure type: systolic Congestive heart failure chronicity : chronic Qualified Code(s): I50.22 - Chronic systolic (congestive) heart failure
--- NOTE | 2018-06-27 11:31 | PN ---
Progress Note, Physician History of Present Illness: Pt seen and examined at bedside. He is awake and alert. He tolerated HD yesterday. - Current Medication List Current Medications: Active Medications Acetaminophen (Tylenol -) 650 mg PO Q4H PRN PRN Reason: PAIN 1-3 Last Admin: 06/25/18 14:32 Dose: 650 mg Aspirin (Asa -) 81 mg PO DAILY [facility] Last Admin: 06/27/18 10:45 Dose: 81 mg Atorvastatin Calcium (Lipitor -) 80 mg PO HS [facility] Last Admin: 06/26/18 21:31 Dose: 80 mg Clopidogrel Bisulfate (Plavix -) 75 mg PO DAILY [facility] Last Admin: 06/27/18 10:45 Dose: 75 mg Docusate Sodium (Colace -) 100 mg PO TID [facility] Last Admin: 06/27/18 05:58 Dose: 100 mg Heparin Sodium (Porcine) (Heparin -) 5,000 unit SQ BID [facility] Last Admin: 06/27/18 10:45 Dose: 5,000 unit Piperacillin Sod/Tazobactam (Sod 2.25 gm/ Dextrose) 50 mls @ 100 mls/hr IVPB Q8H-IV [facility]; Protocol Last Admin: 06/27/18 10:44 Dose: 100 mls/hr Insulin Detemir (Levemir Vial) 8 units SQ HS [facility] Last Admin: 06/26/18 21:33 Dose: 8 units Levothyroxine Sodium (Synthroid -) 25 mcg PO DAILY@0700 [facility] Last Admin: 06/27/18 06:10 Dose: 25 mcg Metoprolol Succinate (Toprol Xl -) 150 mg PO DAILY [facility] Last Admin: 06/27/18 10:45 Dose: 150 mg Mineral Oil (Fleet Mineral Oil Rectal Enema -) 133 ml TX NOW ONE Stop: 06/27/18 11:18 Oxycodone HCl (Roxicodone -) 10 mg PO Q4H PRN PRN Reason: PAIN LEVEL 6-10 Last Admin: 06/26/18 14:10 Dose: 10 mg Pantoprazole Sodium (Protonix -) 40 mg PO DAILY [facility] Last Admin: 06/27/18 10:45 Dose: 40 mg Sacubitril/Valsartan (Entresto 49 Mg-51 Mg Tablet) 1 tab PO BID [facility] Last Admin: 06/27/18 10:46 Dose: 1 tab Senna (Senna -) 1 tab PO HS [facility] Last Admin: 06/26/18 21:31 Dose: 1 tab - Objective Vital Signs: Vital Signs Temperature 97.7 F 06/27/18 09:00 Pulse Rate 80 06/27/18 09:00 Respiratory Rate 20 06/27/18 09:00 Blood Pressure 151/71 06/27/18 09:00 O2 Sat by Pulse Oximetry (%) 98 06/26/18 21:00 Constitutional: Yes: Calm Eyes: Yes: Conjunctiva Clear HENT: Yes: Atraumatic Neck: Yes: Supple Cardiovascular: Yes: S1, S2 Respiratory: Yes: On Nasal O2 Gastrointestinal: Yes: Soft Genitourinary: Yes: WNL Musculoskeletal: Yes: Other (s/p toe amputation) Edema: No Neurological: Yes: Oriented Psychiatric: Yes: Oriented Labs: CBC, BMP 06/26/18 08:30 06/26/18 08:30 INR, PTT INR 1.03 (0.83-1.09) 06/14/18 07:10 Problem List - Problems (1) Cellulitis Code(s): L03.90 - CELLULITIS, UNSPECIFIED (2) ESRD (end stage renal disease) on dialysis Code(s): N18.6 - END STAGE RENAL DISEASE; Z99.2 - DEPENDENCE ON RENAL DIALYSIS (3) Gangrene Code(s): I96 - [place], NOT ELSEWHERE CLASSIFIED (4) COPD (chronic obstructive pulmonary disease) Code(s): J44.9 - CHRONIC OBSTRUCTIVE PULMONARY DISEASE, UNSPECIFIED Qualifiers: Qualified Code(s): J44.9 - Chronic obstructive pulmonary disease, unspecified Assessment/Plan Current Medications Generic Name Dose Route Start Last Admin Trade Name Freq PRN Reason Stop Dose Admin Acetaminophen 650 mg 06/21/18 15:55 06/25/18 14:32 Tylenol - PO 650 mg Q4H PRN Administration PAIN 1-3 Aspirin 81 mg 06/22/18 10:00 06/27/18 10:45 Asa - PO 81 mg DAILY [facility] Administration Atorvastatin Calcium 80 mg 06/21/18 22:00 06/26/18 21:31 Lipitor - PO 80 mg HS [facility] Administration Clopidogrel Bisulfate 75 mg 06/22/18 10:00 06/27/18 10:45 Plavix - PO 75 mg DAILY [facility] Administration Docusate Sodium 100 mg 06/21/18 22:00 06/27/18 05:58 Colace - PO 100 mg TID [facility] Administration Heparin Sodium (Porcine) 5,000 unit 06/21/18 22:00 06/27/18 10:45 Heparin - SQ 5,000 unit BID [facility] Administration Piperacillin Sod/Tazobactam 50 mls @ 100 mls/hr 06/21/18 18:00 06/27/18 10:44 Sod 2.25 gm/ Dextrose IVPB 100 mls/hr Q8H-IV [facility] Administration Protocol Insulin Detemir 8 units 06/21/18 22:00 06/26/18 21:33 Levemir Vial SQ 8 units HS [facility] Administration Levothyroxine Sodium 25 mcg 06/22/18 07:00 06/27/18 06:10 Synthroid - PO 25 mcg DAILY@0700 [facility] Administration Metoprolol Succinate 150 mg 06/22/18 10:00 06/27/18 10:45 Toprol Xl - PO 150 mg DAILY [facility] Administration Mineral Oil 133 ml 06/27/18 11:17 Fleet Mineral Oil Rectal Enema - [place] 06/27/18 11:18 NOW ONE Oxycodone HCl 10 mg 06/26/18 13:08 06/26/18 14:10 Roxicodone - PO 10 mg Q4H PRN Administration PAIN LEVEL 6-10 Pantoprazole Sodium 40 mg 06/22/18 10:00 06/27/18 10:45 Protonix - PO 40 mg DAILY [facility] Administration Sacubitril/Valsartan 1 tab 06/24/18 10:00 06/27/18 10:46 Entresto 49 Mg-51 Mg Tablet PO 1 tab BID [facility] Administration Senna 1 tab 06/21/18 22:00 06/26/18 21:31 Senna - PO 1 tab HS [facility] Administration Impression 1. ESRD 2. toe gangrene 3. DM 4. CAD 5. PVD 6. DFU 7. anemia 8. hx steal syndrome s/p DRIL procedure 9. CHF 10. constipation 11. pos hep c ab Plan - HD in am - will need follow up for hep c - cont abx per ID - renal diet - epogen for anemia - will follow Dr Dove
--- NOTE | 2018-06-27 11:35 | CON.GI ---
Consult Consult Specialty:: GI Reason for Consultation:: HCV AB+ - History of Present Illness History of Present Illness: Chart reviewed. Events noted. The pt tested positive for HCV Ab and negative for HCV RNA (undetectable). HAV positive, HBV negative serology. Reports no known overt liver issues. No jostory of jaundice, varices, ascites. Believes had blood transfusions 14 and 2 y ago (coronary arteries bypass sx and upper GI bleeding respectively). Reports smoking tobacco and drinking in the past, denies elicit drugs, tattoos, or other risk factors. ALT, AST, bili are normal ALP slightely elevated. 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: Yes: TIA Cardio/Vascular: Yes: AFIB, CAD, CHF, HTN, Hyperlipdemia, DC, Mitral Insufficiency Gastrointestinal: Yes: GI Bleed Renal/: Yes: Renal Inusuff, Hemodialysis Psych: Yes: Anxiety Endocrine: Yes: Diabetes Mellitus Dermatology: Yes: Other (gangarene left big toe) - Past Surgical History Past Surgical History: Yes: AICD, AV Fistula/Graft, CABG - Alcohol/Substance Use Hx Alcohol Use: No - Smoking History Smoking history: Former smoker Have you smoked in the past 12 months: No Aproximately how many cigarettes per day: 5 If you are a former smoker, when did you quit?: 2004 Home Medications - Allergies Allergies/Adverse Reactions: Allergies Allergy/AdvReac Type Severity Reaction Status Date / Time gabapentin [From Neurontin] AdvReac Verified 06/13/18 21:54 - Home Medications Home Medications: Ambulatory Orders Acetaminophen 650 mg PO Q4H PRN 02/28/18 Aspirin [ASA -] 81 mg PO DAILY 02/28/18 Atorvastatin Ca [Lipitor] 80 mg PO HS 02/28/18 Calcium Acetate [Phoslo -] 667 mg PO TIDCM 02/28/18 Clopidogrel Bisulfate [Plavix -] 75 mg PO DAILY 02/28/18 Insulin Glargine,Hum.rec.anlog [Lantus] 16 unit SQ HS 02/28/18 Levothyroxine [Synthroid -] 25 mcg PO DAILY 02/28/18 Metoprolol Succinate [Toprol Xl] 150 mg PO DAILY 02/28/18 Pantoprazole Sodium 40 mg PO DAILY 02/28/18 Sennosides [Senna -] 1 tab PO HS 02/28/18 Sertraline HCl [Zoloft -] 50 mg PO HS 02/28/18 Heparin - 5,000 unit SQ BID #1 vial 03/10/18 Albuterol 0.083% Nebulizer Yessi [Ventolin 0.083% Nebulizer Soln -] 1 amp IN Q8H PRN 03/28/18 Sacubitril/Valsartan [Entresto 49 mg-51 mg Tablet] 1 tab PO BID #60 tablet 04/05 Gabapentin [Neurontin -] 100 mg PO DAILY 04/21/18 Melatonin 3 mg PO HS 04/21/18 Family Disease History - Family Disease History Family History: Unremarkable Review of Systems Findings/Remarks: as per HPI, ED, H&P Physical Exam-GI Vital Signs: Vital Signs Temperature 97.7 F 06/27/18 09:00 Pulse Rate 80 06/27/18 09:00 Respiratory Rate 20 06/27/18 09:00 Blood Pressure 151/71 06/27/18 09:00 O2 Sat by Pulse Oximetry (%) 98 06/26/18 21:00 Constitutional: Yes: No Distress, Calm, Pallor, Thin Eyes: Yes: Conjunctiva Clear HENT: Yes: Atraumatic Neck: Yes: Supple Cardiovascular: Yes: Regular Rate and Rhythm Respiratory: Yes: Regular Gastrointestinal Inspection: No: Ascites, Distention ...Auscultate: Yes: Normoactive Bowel Sounds ...Palpate: Yes: Soft. No: Firm/Rigid, Guarding, Mass, Tenderness, Tenderness, Epigastium, Tenderness, Rebound Neurological: Yes: Alert, Oriented. No: Asterixis Labs: CBC, BMP 06/26/18 08:30 06/26/18 08:30 INR, PTT INR 1.03 (0.83-1.09) 06/14/18 07:10 Laboratory Last Values WBC 9.1 K/mm3 (4.0-10.0) 06/26/18 08:30 RBC 3.16 M/mm3 (4.00-5.60) L 06/26/18 08:30 Hgb 9.1 GM/dL (11.7-16.9) L 06/26/18 08:30 Hct 28.1 % (35.4-49) L 06/26/18 08:30 MCV 88.8 fl (80-96) 06/26/18 08:30 MCH 28.9 pg (25.7-33.7) 06/26/18 08:30 MCHC 32.5 g/dl (32.0-35.9) 06/26/18 08:30 RDW 16.8 % (11.9-15.9) H 06/26/18 08:30 Plt Count 334 K/MM3 (134-434) 06/26/18 08:30 MPV 9.5 fl (7.5-11.1) 06/26/18 08:30 Absolute Neuts (auto) 7.7 K/mm3 (1.5-8.0) 06/23/18 08:20 Neutrophils % 77.7 % (42.8-82.8) 06/23/18 08:20 Lymphocytes % 7.4 % (8-40) L D 06/23/18 08:20 Monocytes % 8.2 % (3.8-10.2) 06/23/18 08:20 Eosinophils % 5.4 % (0-4.5) H 06/23/18 08:20 Basophils % 1.3 % (0-2.0) 06/23/18 08:20 Nucleated RBC % 0 % (0-0) 06/23/18 08:20 ESR 94 mm/hr (0-20) H 06/27/18 06:30 PT with INR 11.60 SEC (9.7-13.0) 06/14/18 07:10 INR 1.03 (0.83-1.09) 06/14/18 07:10 PTT (Actin FS) 30.3 SECONDS (25.2-36.5) 06/13/18 23:50 VBG pH 7.31 (7.32-7.42) L 06/13/18 23:50 POC VBG pCO2 61.0 mmHg (38-52) H* 06/13/18 23:50 POC VBG pO2 17.1 mmHg (28-48) L* 06/13/18 23:50 Mixed VBG HCO3 29.9 meq/L (19-25) H 06/13/18 23:50 Sodium 140 mmol/L (136-145) 06/26/18 08:30 Potassium 4.4 mmol/L (3.5-5.1) 06/26/18 08:30 Chloride 98 mmol/L (98-107) 06/26/18 08:30 Carbon Dioxide 26 mmol/L (21-32) 06/26/18 08:30 Anion Gap 16 MMOL/L (8-16) 06/26/18 08:30 BUN 33 mg/dL (7-18) H 06/26/18 08:30 Creatinine 7.4 mg/dL (0.55-1.3) H 06/26/18 08:30 Creat Clearance w eGFR 7.29 (>60) 06/26/18 08:30 POC Glucometer 169 UNITS (80-120) 06/27/18 05:41 Random Glucose 127 mg/dL (74-106) H 06/26/18 08:30 Hemoglobin A1c % 7.4 % (4.8-6.0) H D 06/21/18 07:20 Lactic Acid 1.5 mmol/L (0.0-2.0) 06/14/18 01:30 Calcium 7.5 mg/dL (8.5-10.1) L 06/26/18 08:30 Total Bilirubin 0.4 mg/dL (0.2-1.0) 06/13/18 23:50 AST 20 U/L (15-37) D 06/13/18 23:50 ALT 15 U/L (12-78) 06/13/18 23:50 Alkaline Phosphatase 146 U/L (45-117) H 06/13/18 23:50 Troponin I 0.03 ng/ml (0.00-0.05) D 06/13/18 23:50 C-Reactive Protein 7.3 MG/DL (0.00-0.3) H 06/27/18 06:30 Total Protein 7.4 g/dl (6.4-8.2) 06/13/18 23:50 Albumin 3.5 g/dl (3.4-5.0) 06/13/18 23:50 Urine Color Dkyellow 06/13/18 23:30 Urine Appearance Clear 06/13/18 23:30 Urine pH 6.0 (5.0-8.0) 06/13/18 23:30 Ur Specific [place] 1.018 (1.001-1.035) 06/13/18 23:30 Urine Protein 3+ (NEGATIVE) H 06/13/18 23:30 Urine Glucose (UA) 2+ (NEGATIVE) H 06/13/18 23:30 Urine Ketones Negative (NEGATIVE) 06/13/18 23:30 Urine Blood Negative (NEGATIVE) 06/13/18 23:30 Urine Nitrite Negative (NEGATIVE) 06/13/18 23:30 Urine Bilirubin Negative (<2.0 mg/dL) 06/13/18 23:30 Urine Urobilinogen Negative mg/dL (0.2-1.0) 06/13/18 23:30 Ur Leukocyte Esterase Negative (NEGATIVE) 06/13/18 23:30 Urine WBC (Auto) 5 /hpf (3-5) 06/13/18 23:30 Urine RBC (Auto) 3 /hpf (0-3) 06/13/18 23:30 Ur Epithelial Cells Rare /HPF (FEW) 06/13/18 23:30 Urine Bacteria Rare /hpf (NONE SEEN) 06/13/18 23:30 Hyaline Casts 1 /lpf 06/13/18 23:30 Random Vancomycin 11.53 ug/ml 06/16/18 11:30 Hep A IgM Ab Confirm Negative (Negative) 06/14/18 13:40 Hepatitis A Ab Total Positive (Negative) H 06/14/18 13:40 Hep Bs Antigen Negative (Negative) 06/14/18 13:40 Hep Bs Antibody Reactive (.) 06/14/18 13:40 Hep B Core Total Ab Negative (Negative) 06/14/18 13:40 Hep C Ab Diagnostic 1.7 s/co ratio (0.0-0.9) H 06/14/18 13:40 HCV Quantitation Hcv not detected IU/mL (.) 06/25/18 06:10 Hepatitis C RNA TNP 06/25/18 06:10 HCV RNA PCR log copy camera operator/ml TNP 06/14/18 13:40 HCV RNA PCR w/Genot Rflx Hcv not detected IU/mL (.) 06/14/18 13:40 Liver Fibrosis Interp 06/14/18 13:40 Assessment/Plan A 72M with HCB AB+ and undetectable viral load x 2. 1) Either there was exposure to HCV with subsequent resolution (20% of acute HCV infections resolve on its own), 2) False positive AB+ result 3) VL was bellow test's threshold Favor 1, or 2. Doubt chronic HCV hepatitis. Recommend repeat LFT, HCV Ab. HCV viral load in 1 months
[2018-06-27] MEDS ORDERED: MINERAL OIL ENEMA 133 ML ENEMA PR ONE (11:45)
--- NOTE | 2018-06-27 16:59 | PN ---
Progress Note, Physician History of Present Illness: Reports increased dyspnea and orthopnea requiring O2 post amputation of gangrenous left great toe. Patient denies chest pain, palpitations, near or true syncope, PND or LE edema. - Current Medication List Current Medications: Active Medications Acetaminophen (Tylenol -) 650 mg PO Q4H PRN PRN Reason: PAIN 1-3 Last Admin: 06/25/18 14:32 Dose: 650 mg Aspirin (Asa -) 81 mg PO DAILY [facility] Last Admin: 06/27/18 10:45 Dose: 81 mg Atorvastatin Calcium (Lipitor -) 80 mg PO HS [facility] Last Admin: 06/26/18 21:31 Dose: 80 mg Clopidogrel Bisulfate (Plavix -) 75 mg PO DAILY [facility] Last Admin: 06/27/18 10:45 Dose: 75 mg Docusate Sodium (Colace -) 100 mg PO TID [facility] Last Admin: 06/27/18 14:48 Dose: 100 mg Epoetin Parmjit (Procrit -) 6,000 unit IVPUSH ONCE ONE Stop: 06/28/18 11:32 Heparin Sodium (Porcine) (Heparin -) 5,000 unit SQ BID [facility] Last Admin: 06/27/18 10:45 Dose: 5,000 unit Heparin Sodium (Porcine) (Heparin -) 1,000 unit IVPUSH ONCE ONE Stop: 06/28/18 11:32 Piperacillin Sod/Tazobactam (Sod 2.25 gm/ Dextrose) 50 mls @ 100 mls/hr IVPB Q8H-[facility]; Protocol Last Admin: 06/27/18 10:44 Dose: 100 mls/hr Sodium Chloride (Normal Saline -) 250 mls @ 3,000 mls/hr IV PRN PRN PRN Reason: Hypotension during Dialysis Stop: 06/28/18 11:32 Insulin Detemir (Levemir Vial) 8 units SQ [facility] Last Admin: 06/26/18 21:33 Dose: 8 units Levothyroxine Sodium (Synthroid -) 25 mcg PO DAILY@0700 [facility] Last Admin: 06/27/18 06:10 Dose: 25 mcg Metoprolol Succinate (Toprol Xl -) 150 mg PO DAILY [facility] Last Admin: 06/27/18 10:45 Dose: 150 mg Oxycodone HCl (Roxicodone -) 10 mg PO Q4H PRN PRN Reason: PAIN LEVEL 6-10 Last Admin: 06/26/18 14:10 Dose: 10 mg Pantoprazole Sodium (Protonix -) 40 mg PO DAILY [facility] Last Admin: 06/27/18 10:45 Dose: 40 mg Sacubitril/Valsartan (Entresto 49 Mg-51 Mg Tablet) 1 tab PO BID [facility] Last Admin: 06/27/18 10:46 Dose: 1 tab Senna (Senna -) 1 tab PO HS [facility] Last Admin: 06/26/18 21:31 Dose: 1 tab - Objective Vital Signs: Vital Signs Temperature 98.3 F 06/27/18 14:41 Pulse Rate 86 06/27/18 14:41 Respiratory Rate 20 06/27/18 14:41 Blood Pressure 152/86 06/27/18 14:41 O2 Sat by Pulse Oximetry (%) 98 06/27/18 09:00 Constitutional: Yes: No Distress, Calm, Thin Neck: Yes: Supple Cardiovascular: Yes: Regular Rate and Rhythm Respiratory: Yes: Regular, Diminished, On Nasal O2 Gastrointestinal: Yes: Normal Bowel Sounds, Soft Edema: No Wound/Incision: Yes: Dressing Dry and Intact Labs: CBC, BMP 06/26/18 08:30 06/26/18 08:30 INR, PTT INR 1.03 (0.83-1.09) 06/14/18 07:10 Problem List - Problems (1) Cellulitis and abscess of foot Code(s): L03.119 - CELLULITIS OF UNSPECIFIED PART OF LIMB; L02.619 - CUTANEOUS ABSCESS OF UNSPECIFIED FOOT (2) Gangrene Code(s): I96 - GANGRENE, NOT ELSEWHERE CLASSIFIED (3) ASHD (arteriosclerotic heart disease) Code(s): I25.10 - ATHSCL HEART DISEASE OF [place] CORONARY ARTERY W/O ANG PCTRS (4) COPD (chronic obstructive pulmonary disease) Code(s): J44.9 - CHRONIC OBSTRUCTIVE PULMONARY DISEASE, UNSPECIFIED Qualifiers: COPD type: unspecified COPD Qualified Code(s): J44.9 - Chronic obstructive pulmonary disease, unspecified (5) Chronic HFrEF (heart failure with reduced ejection fraction) Code(s): I50.22 - CHRONIC SYSTOLIC (CONGESTIVE) HEART FAILURE (6) Diabetes Code(s): E11.9 - TYPE 2 DIABETES MELLITUS WITHOUT COMPLICATIONS Qualifiers: Diabetes mellitus type: type 2 Diabetes mellitus halfway insulin use: without superintendent container terminal use Diabetes mellitus complication status: with neurologic complications (7) ESRD (end stage renal disease) Code(s): N18.6 - END STAGE RENAL DISEASE (8) HTN (hypertension) Code(s): I10 - ESSENTIAL (PRIMARY) HYPERTENSION Qualifiers: Hypertension type: essential hypertension Qualified Code(s): I10 - Essential (primary) hypertension (9) Hypothyroidism Code(s): E03.9 - HYPOTHYROIDISM, UNSPECIFIED Qualifiers: Hypothyroidism type: unspecified Qualified Code(s): E03.9 - Hypothyroidism , unspecified (10) ICD (implantable cardioverter-defibrillator) in place Code(s): Z95.810 - PRESENCE OF AUTOMATIC (IMPLANTABLE) CARDIAC DEFIBRILLATOR (11) Ischemic dilated cardiomyopathy Code(s): I25.5 - ISCHEMIC CARDIOMYOPATHY; I42.0 - DILATED CARDIOMYOPATHY (12) PVD (peripheral vascular disease) Code(s): I73.9 - PERIPHERAL VASCULAR DISEASE, UNSPECIFIED (13) S/P CABG (coronary artery bypass graft) Code(s): Z95.1 - PRESENCE OF AORTOCORONARY BYPASS GRAFT (14) S/P peripheral artery angioplasty with stent placement Code(s): Z95.820 - PERIPHERAL VASCULAR ANGIOPLASTY STATUS W IMPLANTS AND GRAFTS Assessment/Plan 1. LLE angiogram s/p stent s/p toe amputation 2. Acute on Chronic Systolic Heart Failure referable to ischemic dilated cardiomyopathy/severe LV systolic dysfunction 3. CAD post remote OR post CABG angina pectoris 4. Post prophylactic ICD implant (Medtronic's device) 5. HTN/HCVD BP not at goal 6. IDDM 7. Hypercholesterolemia 8. PAD with persistent left toe gangrene despite h/o aortogram, LLE angiogram, SFA atherectomy, DCB SFA angioplasty, with sfa stent 9. ESRD on HD, right AVG with steal and hyperkalemia s/p right arm angiogram and DRIL procedure 10. Anemia of CKD 11. Hypothyroidism 12. History of GI bleed PLAN: 1. Volume removal and HD per nephrology and empiric antibiotic per ID, check pCXR 2. Continue Toprol XL 150 qd 3. Increase Entresto 97/103 bid and monitor electrolytes 4. Continue ASA 81 qd and Plavix 75 qd 5. Continue Lipitor 80 qhs 6. DVT and GI prophylaxis 7. Wound care
[2018-06-27] MEDS: oxyCODONE HCL 5 MG TABLET PO PRN (17:33)
--- NOTE | 2018-06-27 20:28 | PN ---
Progress Note (short form) - Note Progress Note: POD#6. No pain. vss, Tmax 98.3 dressing clean, dry and intact, wbc=9.1, retention sutures intact normal post op Retention sutures left in place. Betadine dressing. Will follow. Anticipate dc soon.
[2018-06-27] MEDS: INSULIN (LEVEMIR) 100 UNITS/ML UNITS SQ SCH (22:17)
[2018-06-27] MEDS: SENNOSIDES 8.6MG TABLET (FP) PO SCH (22:17)
[2018-06-27] MEDS: ATORVASTATIN CA 80 MG TABLET (FP) PO SCH (22:17)
[2018-06-27] MEDS: SACUBITRIL/VALSARTAN 97 MG-103 MG TABLET PO SCH (22:18)
[2018-06-28] MEDS: oxyCODONE HCL 5 MG TABLET PO PRN ×3 (00:39→15:29)
[2018-06-28] MEDS ORDERED: DEXTROSE 5%-WATER - 50 ML IVPB ONE ×2 (01:56→09:42)
[2018-06-28] MEDS ORDERED: PIPERACILLIN/TAZOBACTAM 2.25 GM VIAL IVPB ONE ×2 (01:56→09:42)
[2018-06-28] MEDS: PIPERACILLIN/TAZOB 2.25 GM 2.25 GM in DEXTROSE 5%-WATER - 50 ML IVPB SCH ×2 (02:12→10:03)
[2018-06-28] MEDS: LEVOTHYROXINE NA 25 MCG TABLET (FP) PO SCH (06:53)
[2018-06-28] MEDS: DOCUSATE SODIUM 100 MG CAPSULE (FP) PO SCH ×2 (06:53→15:29)
[2018-06-28] MEDS ORDERED: INSULIN (NOVOLOG) ASPART 100 UNITS/ML 10ML VIAL ONE (06:57)
[2018-06-28] MEDS: HEPARIN NA (PORCINE) 5,000 UNITS/ML 1ML VIAL SQ SCH (10:04)
[2018-06-28] MEDS: ASPIRIN 81 MG CHEWABLE TABLETS PO SCH (10:04)
[2018-06-28] MEDS: CLOPIDOGREL BISULFATE 75 MG TABLET (FP) PO SCH (10:04)
[2018-06-28] MEDS: PANTOPRAZOLE 40 MG TABLET (FP) PO SCH (10:04)
[2018-06-28] MEDS: SACUBITRIL/VALSARTAN 97 MG-103 MG TABLET PO SCH (10:04)
--- NOTE | 2018-06-28 11:22 | PN ---
Progress Note, Physician History of Present Illness: Patient is undergoing HD, dyspnea and orthopnea improving. Patient denies chest pain, palpitations, near or true syncope, PND or LE edema. - Current Medication List Current Medications: Active Medications Acetaminophen (Tylenol -) 650 mg PO Q4H PRN PRN Reason: PAIN 1-3 Last Admin: 06/25/18 14:32 Dose: 650 mg Aspirin (Asa -) 81 mg PO DAILY [facility] Last Admin: 06/28/18 10:04 Dose: 81 mg Atorvastatin Calcium (Lipitor -) 80 mg PO HS [facility] Last Admin: 06/27/18 22:17 Dose: 80 mg Clopidogrel Bisulfate (Plavix -) 75 mg PO DAILY [facility] Last Admin: 06/28/18 10:04 Dose: 75 mg Docusate Sodium (Colace -) 100 mg PO TID [facility] Last Admin: 06/28/18 06:53 Dose: 100 mg Epoetin Parmjit (Procrit -) 6,000 unit IVPUSH ONCE ONE Stop: 06/28/18 11:32 Heparin Sodium (Porcine) (Heparin -) 5,000 unit SQ BID [facility] Last Admin: 06/28/18 10:04 Dose: 5,000 unit Heparin Sodium (Porcine) (Heparin -) 1,000 unit IVPUSH ONCE ONE Stop: 06/28/18 11:32 Piperacillin Sod/Tazobactam (Sod 2.25 gm/ Dextrose) 50 mls @ 100 mls/hr IVPB Q8H-[facility]; Protocol Last Admin: 06/28/18 10:03 Dose: 100 mls/hr Sodium Chloride (Normal Saline -) 250 mls @ 3,000 mls/hr IV PRN PRN PRN Reason: Hypotension during Dialysis Stop: 06/28/18 11:32 Insulin Detemir (Levemir Vial) 8 units SQ HS [facility] Last Admin: 06/27/18 22:17 Dose: 8 units Levothyroxine Sodium (Synthroid -) 25 mcg PO DAILY@0700 [facility] Last Admin: 06/28/18 06:53 Dose: 25 mcg Metoprolol Succinate (Toprol Xl -) 150 mg PO DAILY [facility] Last Admin: 06/28/18 10:04 Dose: 150 mg Oxycodone HCl (Roxicodone -) 10 mg PO Q4H PRN PRN Reason: PAIN LEVEL 6-10 Last Admin: 06/28/18 08:01 Dose: 10 mg Pantoprazole Sodium (Protonix -) 40 mg PO DAILY [facility] Last Admin: 06/28/18 10:04 Dose: 40 mg Sacubitril/Valsartan (Entresto 97 Mg-103 Mg Tablet) 1 tab PO BID [facility] Last Admin: 06/28/18 10:04 Dose: 1 tab Senna (Senna -) 1 tab PO HS [facility] Last Admin: 06/27/18 22:17 Dose: 1 tab - Objective Vital Signs: Vital Signs Temperature 97.9 F 06/28/18 06:00 Pulse Rate 82 06/28/18 06:00 Respiratory Rate 20 06/28/18 06:00 Blood Pressure 142/72 06/28/18 06:00 O2 Sat by Pulse Oximetry (%) 98 06/27/18 20:47 Constitutional: Yes: No Distress, Calm, Thin Neck: Yes: Supple Cardiovascular: Yes: Regular Rate and Rhythm Respiratory: Yes: Regular, Diminished, On Nasal O2 Gastrointestinal: Yes: Normal Bowel Sounds, Soft Edema: No Labs: CBC, BMP 06/26/18 08:30 06/26/18 08:30 INR, PTT INR 1.03 (0.83-1.09) 06/14/18 07:10 - ....Imaging Chest X-ray: Report Reviewed (Increased CHF and bilateral effusions) Problem List - Problems (1) Cellulitis and abscess of foot Code(s): L03.119 - CELLULITIS OF UNSPECIFIED PART OF LIMB; L02.619 - CUTANEOUS ABSCESS OF UNSPECIFIED FOOT (2) Gangrene Code(s): I96 - GANGRENE, NOT ELSEWHERE CLASSIFIED (3) ASHD (arteriosclerotic heart disease) Code(s): I25.10 - ATHSCL HEART DISEASE OF [place] CORONARY ARTERY W/O ANG PCTRS (4) COPD (chronic obstructive pulmonary disease) Code(s): J44.9 - CHRONIC OBSTRUCTIVE PULMONARY DISEASE, UNSPECIFIED Qualifiers: COPD type: unspecified COPD Qualified Code(s): J44.9 - Chronic obstructive pulmonary disease, unspecified (5) Diabetes Code(s): E11.9 - TYPE 2 DIABETES MELLITUS WITHOUT COMPLICATIONS Qualifiers: Diabetes mellitus type: type 2 Diabetes mellitus halfway insulin use: without intermediate project manager use Diabetes mellitus complication status: with neurologic complications (6) ESRD (end stage renal disease) Code(s): N18.6 - END STAGE RENAL DISEASE (7) HTN (hypertension) Code(s): I10 - ESSENTIAL (PRIMARY) HYPERTENSION Qualifiers: Hypertension type: essential hypertension Qualified Code(s): I10 - Essential (primary) hypertension (8) Hypothyroidism Code(s): E03.9 - HYPOTHYROIDISM, UNSPECIFIED Qualifiers: Hypothyroidism type: unspecified Qualified Code(s): E03.9 - Hypothyroidism , unspecified (9) ICD (implantable cardioverter-defibrillator) in place Code(s): Z95.810 - PRESENCE OF AUTOMATIC (IMPLANTABLE) CARDIAC DEFIBRILLATOR (10) Ischemic dilated cardiomyopathy Code(s): I25.5 - ISCHEMIC CARDIOMYOPATHY; I42.0 - DILATED CARDIOMYOPATHY (11) PVD (peripheral vascular disease) Code(s): I73.9 - PERIPHERAL VASCULAR DISEASE, UNSPECIFIED (12) S/P CABG (coronary artery bypass graft) Code(s): Z95.1 - PRESENCE OF AORTOCORONARY BYPASS GRAFT (13) S/P peripheral artery angioplasty with stent placement Code(s): Z95.820 - PERIPHERAL VASCULAR ANGIOPLASTY STATUS W IMPLANTS AND GRAFTS (14) Acute on chronic systolic (congestive) heart failure Code(s): I50.23 - ACUTE ON CHRONIC SYSTOLIC (CONGESTIVE) HEART FAILURE Assessment/Plan 1. LLE angiogram s/p stent s/p toe amputation 2. Acute on Chronic Systolic Heart Failure referable to ischemic dilated cardiomyopathy/severe LV systolic dysfunction 3. CAD post remote [place] post CABG angina pectoris 4. Post prophylactic ICD implant (Medtronic's device) 5. HTN/HCVD BP not at goal 6. IDDM 7. Hypercholesterolemia 8. PAD with persistent left toe gangrene despite h/o aortogram, LLE angiogram, SFA atherectomy, DCB SFA angioplasty, with sfa stent 9. ESRD on HD, right AVG with steal and hyperkalemia s/p right arm angiogram and DRIL procedure 10. Anemia of CKD 11. Hypothyroidism 12. History of GI bleed PLAN: 1. Increase volume removal and HD per nephrology and empiric antibiotic per ID 2. Continue Toprol XL 150 qd 3. Continue Entresto 97/103 bid and monitor electrolytes 4. Continue ASA 81 qd and Plavix 75 qd 5. Continue Lipitor 80 qhs 6. DVT and GI prophylaxis 7. Wound care
[2018-06-28 12:00] LABS: HEMATOCRIT 27.3 % (35.4-49); HEMOGLOBIN 9.1 GM/dL (11.7-16.9); MCH 29.3 pg (25.7-33.7); MCHC 33.5 g/dl (32.0-35.9); MEAN CELL VOLUME 87.5 fl (80-96); MEAN PLT VOLUME 9.9 fl (7.5-11.1); PLATELET COUNT 307 K/MM3 (134-434); RBC 3.12 M/mm3 (4.00-5.60); RDW 16.7 % (11.9-15.9)
--- NOTE | 2018-06-28 12:04 | DS ---
Physical Examination Vital Signs: Vital Signs Temperature 97.2 F L 06/28/18 11:00 Pulse Rate 87 06/28/18 11:15 Respiratory Rate 18 06/28/18 11:15 Blood Pressure 153/77 06/28/18 11:15 O2 Sat by Pulse Oximetry (%) 98 06/27/18 20:47 Constitutional: Yes: No Distress Cardiovascular: Yes: Regular Rate and Rhythm Respiratory: Yes: CTA Bilaterally Gastrointestinal: Yes: Normal Bowel Sounds, Soft. No: Tenderness Edema: No Labs: CBC, BMP 06/28/18 11:00 Discharge Summary Reason For Visit: GANGRENE CELLULITIS AND ABSCESS OF FOOT Current Active Problems Acute on chronic systolic (congestive) heart failure (Acute) Cellulitis (Acute) Cellulitis and abscess of foot (Acute) ESRD (end stage renal disease) on dialysis (Acute) Gangrene (Acute) Hepatitis C antibody test positive (Acute) Infection of toe (Acute) Hospital Course: Admitted for gangrene of toe underwent- s/p amputation of the first toe 06/21 s/p angiogram and stent placement 06/15 Seen by Vascular and ID, cleared by Cardiology for surgery He underwent the above surgeries Will be on Ancef on dialysis days x 5 weeks Microbiology 06/21/18 14:00 Foot - Left Gram Stain - Final 06/21/18 14:00 Foot - Left Wound Culture - Final Proteus Mirabilis Diphtheroid/Corynebacterium 06/13/18 23:30 Blood - Peripheral Venous Blood Culture - Final NO GROWTH AFTER 5 DAYS INCUBATION 06/14/18 07:00 Toe - Left Hallux Gram Stain - Final 06/14/18 07:00 Toe - Left Hallux Wound Culture - Final Diphtheroid/Corynebacterium Proteus Mirabilis 06/13/18 23:30 Blood - Peripheral Venous Blood Culture - Final Staphylococcus Epidermidis 06/13/18 23:30 Urine - Urine Clean Catch Urine Culture - Final NO GROWTH OBTAINED Seen by GI for Hep AB+--as per consult -- A 72M with HCB AB+ and undetectable viral load x 2. 1) Either there was exposure to HCV with subsequent resolution (20% of acute HCV infections resolve on its own), 2) False positive AB+ result 3) VL was bellow test's threshold Favor 1, or 2. Doubt chronic HCV hepatitis. Recommend repeat LFT, HCV Ab. HCV viral load in 1 months Stable for dc to NH on iv ancef Condition: Fair - Instructions Diet, Activity, Other Instructions: Ancef on dialysis days-- 2gm- Tuesdays, 2gm - and 3gm Saturdays for 5 more weeks Referrals: Josselin Umanzor, [Primary Care Provider] - Disposition: NURSING HOME FACILITY - Home Medications Comprehensive Discharge Medication List: Ambulatory Orders Acetaminophen 650 mg PO Q4H PRN 02/28/18 Aspirin [ASA -] 81 mg PO DAILY 02/28/18 Atorvastatin Ca [Lipitor] 80 mg PO HS 02/28/18 Calcium Acetate [Phoslo -] 667 mg PO TIDCM 02/28/18 Clopidogrel Bisulfate [Plavix -] 75 mg PO DAILY 02/28/18 Insulin Glargine,Hum.rec.anlog [Lantus] 16 unit SQ HS 02/28/18 Levothyroxine [Synthroid -] 25 mcg PO DAILY 02/28/18 Metoprolol Succinate [Toprol Xl] 150 mg PO DAILY 02/28/18 Pantoprazole Sodium 40 mg PO DAILY 02/28/18 Sennosides [Senna -] 1 tab PO HS 02/28/18 Sertraline HCl [Zoloft -] 50 mg PO HS 02/28/18 Heparin - 5,000 unit SQ BID #1 vial 03/10/18 Albuterol 0.083% Nebulizer Yessi [Ventolin 0.083% Nebulizer Soln -] 1 amp IN Q8H PRN 03/28/18 Sacubitril/Valsartan [Entresto 49 mg-51 mg Tablet] 1 tab PO BID #60 tablet 04/05 Gabapentin [Neurontin -] 100 mg PO DAILY 04/21/18 Melatonin 3 mg PO HS 04/21/18
[2018-06-28 13:27] LABS: ANION GAP 12 MMOL/L (8-16); BLOOD UREA NITROGEN 38 mg/dL (7-18); CHLORIDE 98 mmol/L (98-107); CO2 27 mmol/L (21-32); CREATININE 6.6 mg/dL (0.55-1.3); GLUCOSE,RANDOM 192 mg/dL (74-106); POTASSIUM 4.6 mmol/L (3.5-5.1); SODIUM 136 mmol/L (136-145)
[2018-06-28] MEDS ORDERED: HEPARIN NA (PORCINE) 5,000 UNITS/ML 1ML VIAL IVPUSH ONE (14:00)
[2018-06-28] MEDS ORDERED: EPOETIN ALFA 3,000 UNIT/1 ML ML IVPUSH ONE (14:00)
[2018-06-28] MEDS ORDERED: SODIUM CHLORIDE 250 ML IV PRN (14:00)
[2018-06-28 15:11] VITALS: TEMP 97.7
--- NOTE | 2018-06-28 15:51 | PN ---
Progress Note, Physician History of Present Illness: Pt seen and examined at bedside. He is tolerating HD. - Current Medication List Current Medications: Active Medications Acetaminophen (Tylenol -) 650 mg PO Q4H PRN PRN Reason: PAIN 1-3 Last Admin: 06/25/18 14:32 Dose: 650 mg Aspirin (Asa -) 81 mg PO DAILY [facility] Last Admin: 06/28/18 10:04 Dose: 81 mg Atorvastatin Calcium (Lipitor -) 80 mg PO HS [facility] Last Admin: 06/27/18 22:17 Dose: 80 mg Clopidogrel Bisulfate (Plavix -) 75 mg PO DAILY [facility] Last Admin: 06/28/18 10:04 Dose: 75 mg Docusate Sodium (Colace -) 100 mg PO TID [facility] Last Admin: 06/28/18 15:29 Dose: 100 mg Heparin Sodium (Porcine) (Heparin -) 5,000 unit SQ BID [facility] Last Admin: 06/28/18 10:04 Dose: 5,000 unit Piperacillin Sod/Tazobactam (Sod 2.25 gm/ Dextrose) 50 mls @ 100 mls/hr IVPB Q8H-IV [facility]; Protocol Last Admin: 06/28/18 10:03 Dose: 100 mls/hr Insulin Detemir (Levemir Vial) 8 units SQ HS [facility] Last Admin: 06/27/18 22:17 Dose: 8 units Levothyroxine Sodium (Synthroid -) 25 mcg PO DAILY@0700 [facility] Last Admin: 06/28/18 06:53 Dose: 25 mcg Metoprolol Succinate (Toprol Xl -) 150 mg PO DAILY [facility] Last Admin: 06/28/18 10:04 Dose: 150 mg Oxycodone HCl (Roxicodone -) 10 mg PO Q4H PRN PRN Reason: PAIN LEVEL 6-10 Last Admin: 06/28/18 15:29 Dose: 10 mg Pantoprazole Sodium (Protonix -) 40 mg PO DAILY [facility] Last Admin: 06/28/18 10:04 Dose: 40 mg Sacubitril/Valsartan (Entresto 97 Mg-103 Mg Tablet) 1 tab PO BID [facility] Last Admin: 06/28/18 10:04 Dose: 1 tab Senna (Senna -) 1 tab PO HS [facility] Last Admin: 06/27/18 22:17 Dose: 1 tab - Objective Vital Signs: Vital Signs Temperature 97.7 F 06/28/18 14:45 Pulse Rate 86 06/28/18 15:00 Respiratory Rate 18 06/28/18 15:00 Blood Pressure 160/84 06/28/18 15:00 O2 Sat by Pulse Oximetry (%) 98 06/27/18 20:47 Constitutional: Yes: Calm Eyes: Yes: Conjunctiva Clear HENT: Yes: Atraumatic Neck: Yes: Supple Cardiovascular: Yes: S1, S2 Respiratory: Yes: On Nasal O2 Gastrointestinal: Yes: Soft Musculoskeletal: Yes: WNL Edema: No Wound/Incision: Yes: Dressing Dry and Intact Neurological: Yes: Oriented Psychiatric: Yes: Oriented Labs: CBC, BMP 06/28/18 11:00 06/28/18 11:00 INR, PTT INR 1.03 (0.83-1.09) 06/14/18 07:10 Problem List - Problems (1) Cellulitis Code(s): L03.90 - CELLULITIS, UNSPECIFIED (2) ESRD (end stage renal disease) on dialysis Code(s): N18.6 - END STAGE RENAL DISEASE; Z99.2 - DEPENDENCE ON RENAL DIALYSIS (3) Gangrene Code(s): I96 - GANGRENE, NOT ELSEWHERE CLASSIFIED (4) COPD (chronic obstructive pulmonary disease) Code(s): J44.9 - CHRONIC OBSTRUCTIVE PULMONARY DISEASE, UNSPECIFIED Qualifiers: COPD type: unspecified COPD Qualified Code(s): J44.9 - Chronic obstructive pulmonary disease, unspecified Assessment/Plan Current Medications Generic Name Dose Route Start Last Admin Trade Name Freq PRN Reason Stop Dose Admin Acetaminophen 650 mg 06/21/18 15:55 06/25/18 14:32 Tylenol - PO 650 mg Q4H PRN Administration PAIN 1-3 Aspirin 81 mg 06/22/18 10:00 06/28/18 10:04 Asa - PO 81 mg DAILY [facility] Administration Atorvastatin Calcium 80 mg 06/21/18 22:00 06/27/18 22:17 Lipitor - PO 80 mg HS [facility] Administration Clopidogrel Bisulfate 75 mg 06/22/18 10:00 06/28/18 10:04 Plavix - PO 75 mg DAILY [facility] Administration Docusate Sodium 100 mg 06/21/18 22:00 06/28/18 15:29 Colace - PO 100 mg TID [facility] Administration Heparin Sodium (Porcine) 5,000 unit 06/21/18 22:00 06/28/18 10:04 Heparin - SQ 5,000 unit BID [facility] Administration Piperacillin Sod/Tazobactam 50 mls @ 100 mls/hr 06/21/18 18:00 06/28/18 10:03 Sod 2.25 gm/ Dextrose IVPB 100 mls/hr Q8H-IV [facility] Administration Protocol Insulin Detemir 8 units 06/21/18 22:00 06/27/18 22:17 Levemir Vial SQ 8 units HS [facility] Administration Levothyroxine Sodium 25 mcg 06/22/18 07:00 06/28/18 06:53 Synthroid - PO 25 mcg DAILY@0700 [facility] Administration Metoprolol Succinate 150 mg 06/22/18 10:00 06/28/18 10:04 Toprol Xl - PO 150 mg DAILY [facility] Administration Oxycodone HCl 10 mg 06/26/18 13:08 06/28/18 15:29 Roxicodone - PO 10 mg Q4H PRN Administration PAIN LEVEL 6-10 Pantoprazole Sodium 40 mg 06/22/18 10:00 06/28/18 10:04 Protonix - PO 40 mg DAILY [facility] Administration Sacubitril/Valsartan 1 tab 06/27/18 22:00 06/28/18 10:04 Entresto 97 Mg-103 Mg Tablet PO 1 tab BID [facility] Administration Senna 1 tab 06/21/18 22:00 06/27/18 22:17 Senna - PO 1 tab HS [facility] Administration Impression 1. ESRD 2. toe gangrene 3. DM 4. CAD 5. PVD 6. DFU 7. anemia 8. hx steal syndrome s/p DRIL procedure 9. CHF 10. constipation 11. pos hep c ab Plan - HD today - abx on HD as outpt, discussed with facility - referral for GI after discharge - renal diet - epogen for anemia - will follow Dr Dove
[2018-06-28 16:52] VITALS: BP 146/65; PULSE 82
--- NOTE | 2018-07-17 08:13 | OP ---
DATE OF OPERATION: 06/15/2018 PREOPERATIVE DIAGNOSIS: Left great toe gangrene. POSTOPERATIVE DIAGNOSIS: Left great toe gangrene. PROCEDURE PERFORMED: Aortogram, left lower extremity angiogram. SURGEON: Robel Garcia DO FINDINGS: Angiogram within normal limits. Stents are patent. ANESTHESIA: Fractional. ESTIMATED BLOOD LOSS: 20 mL. INDICATIONS: The patient is a 72-year-old male who comes in with left great toe gangrene. It was decided to see if we could do an angiogram to visualize his prior intervention. DESCRIPTION OF PROCEDURE: The patient was consented for the procedure, understanding all risks, benefits and alternatives. He was then taken to the operating room. Once in the operating room, the patient was laid on the operating table in the supine manner, and the areas of the left and left groin were prepped and draped in a sterile surgical manner. We then injected 10 mL of lidocaine 1% over the right common femoral artery. We then punctured the right common femoral artery using our Micropuncture needle. Micropuncture wire was inserted. Micropuncture sheath was inserted, and an additional 5-[place] sheath was inserted. We then placed a 0.035 floppy guidewire up into the aorta, followed by an Omni Flush catheter. We then shot an aortogram by hand injection, showing that aorta and iliac arteries were without any disease. We then placed our wire up and over to the left common femoral artery and our Omni Flush catheter followed. We then shot an angiogram of the left lower extremity, showing that the common femoral artery, the profunda and the SFA were patent. The stents that were placed were patent. The popliteal artery was patent, and the patient had 2-vessel runoff into the foot. At this point, we decided that there was no more intervention needed. Our prior intervention with stents was patent. At this point, we brought our Omni Flush catheter up and over. The wire was removed, and the sheath was removed from the right groin. Pressure was held for 5 minutes. Afterwards there was no bleeding. The area was wet and dried, and Dermabond was placed. The patient tolerated the procedure with no complication. The patient was transferred to the PACU in stable condition. ROBEL GARCIA DO SENIOR PRIVATE CLIENT ADVISOR/[id number]
== END 2018-06-28 18:10 | DRG 255 ==
LOC: JER 21:21 → JERBED 06-14 00:43 → UNDOADMIN 06-14 00:43 → JERBED 06-14 00:48 → J6S 06-14 02:39
PROVIDERS: ADMIT Internal Medicine; ATTEND Internal Medicine
PROC: B40DYZZ Plain Radiography of Aorta and Bilateral Lower Extremity Arteries using Other Contrast (ICD-10-PCS; 2018-06-15)
PROC: 0Y6Q0Z0 Detachment at Left 1st Toe, Complete, Open Approach (ICD-10-PCS; principal; 2018-06-21 13:00)
PROC: 0JBR0ZZ Excision of Left Foot Subcutaneous Tissue and Fascia, Open Approach (ICD-10-PCS; 2018-06-21 13:00)
PROC: 5A1D70Z Performance of Urinary Filtration, Intermittent, Less than 6 Hours Per Day (ICD-10-PCS; 2018-06-28)
DX: E11.52 Type 2 diabetes mellitus with diabetic peripheral angiopathy with gangrene (principal); N18.6 End stage renal disease; I96 Gangrene, not elsewhere classified; I50.42 Chronic combined systolic (congestive) and diastolic (congestive) heart failure; L02.612 Cutaneous abscess of left foot; J98.11 Atelectasis; M86.172 Other acute osteomyelitis, left ankle and foot; I13.2 Hypertensive heart and chronic kidney disease with heart failure and with stage 5 chronic kidney disease, or end stage renal disease; I73.9 Peripheral vascular disease, unspecified; L03.032 Cellulitis of left toe; J44.9 Chronic obstructive pulmonary disease, unspecified; Z79.4 Long term (current) use of insulin; E03.9 Hypothyroidism, unspecified; Z95.810 Presence of automatic (implantable) cardiac defibrillator; I25.5 Ischemic cardiomyopathy; Z95.1 Presence of aortocoronary bypass graft; I25.119 Atherosclerotic heart disease of native coronary artery with unspecified angina pectoris; D63.1 Anemia in chronic kidney disease; K59.00 Constipation, unspecified; E78.5 Hyperlipidemia, unspecified; D72.829 Elevated white blood cell count, unspecified; E11.69 Type 2 diabetes mellitus with other specified complication; E11.22 Type 2 diabetes mellitus with diabetic chronic kidney disease; Z99.2 Dependence on renal dialysis
CPT/HCPCS: 36415; 71045-TC-FY; 73630-TC-LT; 73660-TC-LT-FY; 76000-TC-FY; 80048; 80053; 81003; 81015; 82803; 82962; 83036; 83605; 84484; 85025; 85027; 85610; 85651; 85730; 86140; 86704; 86706; 86708; 86803; 87040; 87070; 87077; 87086; 87186; 87205; 87340; 87522; 87902; 88304-TC; 88305-TC; 88311-TC; 93005; 93010; 94760; 97116-GP; 97162-GP; 99282-25; G0480; J0885; J1644; J7030

== ENCOUNTER 2018-07-13 17:06 | Inpatient (IN) | payer OTHER ==
[2018-07-13 17:19] VITALS: BMI 20.3
--- NOTE | 2018-07-13 17:53 | PDOC ---
History of Present Illness - General History Source: Patient Exam Limitations: No Limitations - History of Present Illness Initial Comments: 07/13/18 17:52 CHIEF COMPLAINT: Coughing blood HISTORY OF PRESENT ILLNESS: This is a 72-year-old male resident of the [facility] with a history of CAD s/p CABG, HTN, HLD, hypothyroidism, PVD s/p left great toe amputation, and ESRD on HD //Mon. he presents to the ER today accompanied by his daughter after developing hemoptysis this morning. He reports that he coughed about a teaspoon of blood twice. He also has right upper back pain which is new today. He denies dyspnea, fevers/chills, night sweats, weight loss, or any other symptoms. Vital signs on arrival are unremarkable. Smoking: One pack per day 59 years, quit 13 years ago Born in [place]. Head negative PPD at long-term this week. REVIEW OF SYSTEMS: GENERAL/CONSTITUTIONAL: No fever or chills. No weakness. No weight change. HEAD, EYES, EARS, NOSE AND THROAT: No change in vision. No ear pain or discharge. No sore throat. CARDIOVASCULAR: No chest pain or palpitations. RESPIRATORY: See HPI. GASTROINTESTINAL: No nausea, vomiting, diarrhea or constipation. GENITOURINARY: No dysuria, frequency, or change in urination. MUSCULOSKELETAL: No joint or muscle swelling or pain. Right upper back pain. SKIN: No rash or easy bruising. NEUROLOGIC: No headache, vertigo, loss of consciousness, or loss of sensation. PSYCHIATRIC: No depression or anxiety. ENDOCRINE: No increased thirst. No abnormal weight change. HEMATOLOGIC/LYMPHATIC: History of GI bleeding while on ?prophylactic AC following hip fracture last year. No history of VTEs. ALLERGIC/IMMUNOLOGIC: No hives or skin allergy. No latex allergy. Gabapentin allergy. PHYSICAL EXAM: GENERAL: The patient is awake, alert, and fully oriented, in no acute distress. HEAD: Normal with no signs of trauma. ENT: Pupils equal, round and reactive to light, extraocular movements intact, sclera anicteric, conjunctiva clear. Neck supple. LUNGS: Clear to auscultation bilaterally. Normal excursion. No respiratory distress or use of accessory muscles. CV: RRR, S1/S2, systolic murmur. Cap refill < 2 sec. ABDOMEN: Soft, non-distended, non-tender. EXTREMITIES: Normal range of motion. 1+ RLE edema. NEUROLOGICAL: Normal speech. CN II-XII grossly intact. PSYCH: Normal mood, normal affect. SKIN: Warm, dry, normal turgor, no rashes or lesions noted. <Emily Kyle - Last Filed: 07/13/18 18:15> <Duran Beckham - Last Filed: 07/13/18 23:19> <Debra Weathers - Last Filed: 07/13/18 23:50> - General Chief Complaint: Hemoptysis Stated Complaint: COUGHING BLOOD Time Seen by Provider: 07/13/18 17:51 Past History - Past Medical History Cardiac Disorders: Yes (AFIB, ASHD, CAD, IN,) COPD: Yes CHF: Yes (CHF, Acute pulmonary edema, bronchospasm) Diabetes: Yes (Type 2) Dialysis: Yes GI Disorders: Yes (GIB, constipation, salmonella,) Disorders: Yes (ERSD dyaliis on -mon) HTN: Yes Hypercholesterolemia: Yes Liver Disease: Yes (DIC) Psychiatric Problems: Yes (depression, dementia) Thyroid Disease: Yes (Hypothyroidism) - Surgical History Cardiac Surgery: Yes (CABG x 3, PPM, Defibrillator) Orthopedic Surgery: Yes (right hip replacement) - Suicide/Smoking/Psychosocial Hx Smoking History: Unknown if ever smoked Have you smoked in the past 12 months: No Number of Cigarettes Smoked Daily: 5 If you are a former smoker, when did you quit?: 2004 Information on smoking cessation initiated: No Hx Alcohol Use: No Drug/Substance Use Hx: No Substance Use Type: None Hx Substance Use Treatment: No <Emily Kyle - Last Filed: 07/13/18 18:15> <Duran Beckham - Last Filed: 07/13/18 23:19> <Debra Weathers - Last Filed: 07/13/18 23:50> - Past Medical History Allergies/Adverse Reactions: Allergies Allergy/AdvReac Type Severity Reaction Status Date / Time gabapentin [From Neurontin] AdvReac Verified 07/13/18 17:19 Home Medications: Ambulatory Orders Acetaminophen 650 mg PO Q4H PRN 02/28/18 Aspirin [ASA -] 81 mg PO DAILY 02/28/18 Atorvastatin Ca [Lipitor] 80 mg PO HS 02/28/18 Calcium Acetate [Phoslo -] 667 mg PO TIDCM 02/28/18 Clopidogrel Bisulfate [Plavix -] 75 mg PO DAILY 02/28/18 Insulin Glargine,Hum.rec.anlog [Lantus] 16 unit SQ HS 02/28/18 Levothyroxine [Synthroid -] 25 mcg PO DAILY 02/28/18 Metoprolol Succinate [Toprol Xl] 150 mg PO DAILY 02/28/18 Pantoprazole Sodium 40 mg PO DAILY 02/28/18 Sennosides [Senna -] 1 tab PO HS 02/28/18 Sertraline HCl [Zoloft -] 50 mg PO HS 02/28/18 Heparin - 5,000 unit SQ BID #1 vial 03/10/18 Albuterol 0.083% Nebulizer Yessi [Ventolin 0.083% Nebulizer Soln -] 1 amp IN Q8H PRN 03/28/18 Sacubitril/Valsartan [Entresto 49 mg-51 mg Tablet] 1 tab PO BID #60 tablet 04/05 Melatonin 3 mg PO HS 04/21/18 Cefazolin 2 gm/D5w [Ancef 2 gm Premixed Ivpb -] 2 gm IV Q48H #30 ml 06/28/18 Cefazolin [Ancef] 3 gm IV WEEKLY 07/13/18 Cholecalciferol (Vitamin D3) [Vitamin D3] 1,000 unit PO DAILY 07/13/18 Insulin Sliding Scale [Novolog Vial Sliding Scale -] 0 units SQ BID 07/13/18 Oxycodone HCl/Acetaminophen [Percocet 10-325 mg Tablet] 1 each PO BID 07/13/18 Vitamin B Comp W-C [Nephro-Misty -] 1 tablet PO DAILY 07/13/18 *Physical Exam - Vital Signs Last Vital Signs Temp Pulse Resp BP Pulse Ox 98.4 F 78 16 135/56 L 100 07/13/18 17:06 07/13/18 17:06 07/13/18 17:06 07/13/18 17:06 07/13/18 17:06 <Emily Kyle - Last Filed: 07/13/18 18:15> - Vital Signs Last Vital Signs Temp Pulse Resp BP Pulse Ox 98.3 F 70 18 145/71 98 07/13/18 20:52 07/13/18 20:52 07/13/18 20:52 07/13/18 20:52 07/13/18 20:52 <Duran Beckham - Last Filed: 07/13/18 23:19> - Vital Signs Last Vital Signs Temp Pulse Resp BP Pulse Ox 98.3 F 70 18 145/71 98 07/13/18 20:52 07/13/18 20:52 07/13/18 20:52 07/13/18 20:52 07/13/18 20:52 <Debra Weathers - Last Filed: 07/13/18 23:50> ED Treatment Course - LABORATORY CBC & Chemistry Diagram: 07/13/18 18:19 07/13/18 18:19 - ADDITIONAL ORDERS Additional order review: Laboratory Results 07/13/18 07/13/18 07/13/18 18:19 18:19 18:19 PT with INR 11.70 INR 0.99 Sodium 138 Potassium 4.9 Chloride 100 Carbon Dioxide 33 H Anion Gap 5 L BUN 29 H Creatinine 5.4 H Creat Clearance w eGFR 10.49 Random Glucose 189 H Calcium 9.0 Total Bilirubin 0.4 AST 20 ALT < 6 L Alkaline Phosphatase 130 H Total Protein 7.2 Albumin 3.0 L Blood Type O POSITIVE Antibody Screen Negative 07/13/18 18:19 RBC 3.71 L MCV 89.5 MCHC 31.7 L RDW 17.9 H MPV 8.5 D Neutrophils % 69.9 Lymphocytes % 14.1 D Monocytes % 9.0 Eosinophils % 6.8 H Basophils % 0.2 <Duran Beckham - Last Filed: 07/13/18 23:19> - LABORATORY CBC & Chemistry Diagram: 07/13/18 18:19 07/13/18 18:19 - ADDITIONAL ORDERS Additional order review: Laboratory Results 07/13/18 07/13/18 07/13/18 18:19 18:19 18:19 PT with INR 11.70 INR 0.99 Sodium 138 Potassium 4.9 Chloride 100 Carbon Dioxide 33 H Anion Gap 5 L BUN 29 H Creatinine 5.4 H Creat Clearance w eGFR 10.49 Random Glucose 189 H Calcium 9.0 Total Bilirubin 0.4 AST 20 ALT < 6 L Alkaline Phosphatase 130 H Total Protein 7.2 Albumin 3.0 L Blood Type O POSITIVE Antibody Screen Negative 07/13/18 18:19 RBC 3.71 L MCV 89.5 MCHC 31.7 L RDW 17.9 H MPV 8.5 D Neutrophils % 69.9 Lymphocytes % 14.1 D Monocytes % 9.0 Eosinophils % 6.8 H Basophils % 0.2 <Debra Weathers - Last Filed: 07/13/18 23:50> Medical Decision Making - Medical Decision Making 07/13/18 18:20 A/P: 72-year-old male with hemoptysis and right upper back pain, also with right lower extremity edema on exam. PE is high on the differential. Also included on the differential is bronchial malignancy, socially given long history of smoking. Tuberculosis seems less likely with recent negative PPD and absence of systemic symptoms. 1. EKG 2. Labs including CBC, CMP, PT/INR, type and screen 3. Right lower shortly ultrasound to rule out DVT 4. CTA chest to rule out PE, discussed with patient's manager academic and okay to proceed 5. Reevaluate <Emily Kyle - Last Filed: 07/13/18 18:15> - Medical Decision Making 07/13/18 10:00pm Call placed to Dr. High's (patient's PCP) answering service and message left that patient was seen in the ER and will need pulmonology follow up. <Duran Beckham - Last Filed: 07/13/18 23:19> - Medical Decision Making 07/13/18 22:29 CT PE is negative for mass or PE. Duplex is also negative. patient is currently asymptomatic. PPD less than one week ago is negative. Will discharge home. Will let Dr. Howe know that patient needs pulmonology follow up. 07/13/18 23:48 Patient had another episode of hemoptysis prior to discharge--produced a clot approximately the size of a quarter. Patient is extremely uncomfortable with leaving the hospital. Will admit for observation and serial hgbs. <Debra Weathers - Last Filed: 07/13/18 23:50> *DC/Admit/Observation/Transfer <Emily Kyel - Last Filed: 07/13/18 18:15> - Attestations Scribe Attestion: 07/13/18 23:20 Documentation prepared by Duran Beckham, acting as medical office specialist for Debra Weathers MD. <Duran Beckham - Last Filed: 07/13/18 23:19> - Discharge Dispostion Decision to Admit order: Yes <Debra Weathers - Last Filed: 07/13/18 23:50> Diagnosis at time of Disposition: Hemoptysis - Discharge Dispostion Condition at time of disposition: Good - Patient Instructions Printed Discharge Instructions: DI for Hemoptysis Additional Instructions: return to the Ed for continued coughing up blood, severe shortness of breath, chest pain, pain with fever, lightheadness, passing out. We did not find the cause for your bleeding today. The CT scan of your lungs was negative. You still need to see a hereditary cancer program coordinator urgently so that you can have a test called a bronchoscopy. You must get your dialysis tomorrow. Make sure to let them know that you had a CT scan with contrast.
[2018-07-13 18:33] LABS: BASO % 0.2 % (0-2.0); EOS % 6.8 % (0-4.5); HEMATOCRIT 33.2 % (35.4-49); HEMOGLOBIN 10.5 GM/dL (11.7-16.9); LYMPH % 14.1 % (8-40); MCH 28.4 pg (25.7-33.7); MCHC 31.7 g/dl (32.0-35.9); MEAN CELL VOLUME 89.5 fl (80-96); MEAN PLT VOLUME 8.5 fl (7.5-11.1); NEUT % 69.9 % (42.8-82.8); PLATELET COUNT 234 K/MM3 (134-434); RBC 3.71 M/mm3 (4.00-5.60); RDW 17.9 % (11.9-15.9); WHITE BLOOD COUNT 6.2 K/mm3 (4.0-10.0)
[2018-07-13 18:53] LABS: INR 0.99 (0.83-1.09); PROTHROMBIN TIME (PATIENT) 11.7 SEC (9.7-13.0)
[2018-07-13 19:23] LABS: ALK PHOS 130 U/L (45-117); ANION GAP 5 MMOL/L (8-16); BILIRUBIN,TOTAL 0.4 mg/dL (0.2-1); BLOOD UREA NITROGEN 29 mg/dL (7-18); CHLORIDE 100 mmol/L (98-107); CO2 33 mmol/L (21-32); CREATININE 5.4 mg/dL (0.55-1.3); GLUCOSE,RANDOM 189 mg/dL (74-106); POTASSIUM 4.9 mmol/L (3.5-5.1); SGOT/AST 20 U/L (15-37); SGPT/ALT < 6 U/L (13-61); SODIUM 138 mmol/L (136-145); TOT PROT 7.2 g/dl (6.4-8.2)
--- NOTE | 2018-07-14 01:22 | HP ---
CHIEF COMPLAINT: Hemoptysis PCP: Smith ALBRIGHT HISTORY OF PRESENT ILLNESS: This is a 72 year old male with a significant past medical history of CAD and PVD on ASA, plavix and heparin, CHF, HTN, DM, ESRD who presented to the ED after several episodes of spitting up blood. Pt reports that he otherwise isn't coughing. He reports the sensation of it building up and then tickling and needing to cough. He then coughs up about a quarter sized blood clot. He reports feeling fine otherwise. As per the ED note, pt had a negative PPD one week ago. Of note, he was recently hospitalized from 06/14-06/28 for a left foot wound resulting in Left great toe amputation due to osteomyelitis; hospitalization was complicated by acute systolic CHF exacerbaion. ER course was notable for: (1) WBC 6.2 (2) H/H 10.5/33.2 Recent Travel: pt denies PAST MEDICAL HISTORY: HTN, HLD, CAD, ICM, sCHF, DM, PVD, ESRD, hypothyroid, osteomyelitis PAST SURGICAL HISTORY: R hip ORIF AVG right upper arm L great toe amputation SFA atherectomy and DCB angioplasty with stent placement R AVG with steal syndrome s/p DRIL Social History: Smoking: quit 14y ago, prior 40packyear history Alcohol: previous, none currently Drugs: denies Family History: mother age 63, complications of DM father age 97, no known medical problems brother age 68, complications of DM sister age 69, kidney problems brother age 75, complications of DM sister alive and well brother alive with Parkinson's disease and DM Allergies gabapentin [From Neurontin] Adverse Reaction (Verified 07/13/18 17:19) HOME MEDICATIONS: 3 Medication Instructions Recorded Acetaminophen 650 mg PO Q4H PRN 02/28/18 Aspirin [ASA -] 81 mg PO DAILY 02/28/18 Atorvastatin Ca [Lipitor] 80 mg PO HS 02/28/18 Calcium Acetate [Phoslo -] 667 mg PO TIDCM 02/28/18 Clopidogrel Bisulfate [Plavix -] 75 mg PO DAILY 02/28/18 Insulin Glargine,Hum.rec.anlog 16 unit SQ HS 02/28/18 [Lantus] Levothyroxine [Synthroid -] 25 mcg PO DAILY 02/28/18 Metoprolol Succinate [Toprol Xl] 150 mg PO DAILY 02/28/18 Pantoprazole Sodium 40 mg PO DAILY 02/28/18 Sennosides [Senna -] 1 tab PO HS 02/28/18 Sertraline HCl [Zoloft -] 50 mg PO HS 02/28/18 Heparin - 5,000 unit SQ BID #1 vial 03/10/18 Albuterol 0.083% Nebulizer Yessi 1 amp IN Q8H PRN 03/28/18 [Ventolin 0.083% Nebulizer Soln -] Sacubitril/Valsartan [Entresto 49 1 tab PO BID #60 tablet 04/05/18 mg-51 mg Tablet] Melatonin 3 mg PO HS 04/21/18 Cefazolin 2 gm/D5w [Ancef 2 gm 2 gm IV Q48H #30 ml 06/28/18 Premixed Ivpb -] Cefazolin [Ancef] 3 gm IV WEEKLY 07/13/18 Cholecalciferol (Vitamin D3) 1,000 unit PO DAILY 07/13/18 [Vitamin D3] Insulin Sliding Scale [Novolog 0 units SQ BID 07/13/18 Vial Sliding Scale -] Oxycodone HCl/Acetaminophen 1 each PO BID 07/13/18 [Percocet 10-325 mg Tablet] Vitamin B Comp W-C [Nephro-Misty -] 1 tablet PO DAILY 07/13/18 REVIEW OF SYSTEMS CONSTITUTIONAL: Absent: fever, chills, diaphoresis, generalized weakness, malaise, loss of appetite, weight change HEENT: Absent: rhinorrhea, nasal congestion, throat pain, throat swelling, difficulty swallowing, mouth swelling, ear pain, eye pain, visual changes CARDIOVASCULAR: Absent: chest pain, syncope, palpitations, irregular heart rate, lightheadedness , peripheral edema RESPIRATORY: Present: hemoptysis Absent: cough, shortness of breath, dyspnea with exertion, orthopnea, wheezing, stridor GASTROINTESTINAL: Absent: abdominal pain, abdominal distension, nausea, vomiting, diarrhea, constipation, melena, hematochezia GENITOURINARY: Absent: dysuria, frequency, urgency, hesitancy, hematuria, flank pain, genital pain MUSCULOSKELETAL: Absent: myalgia, arthralgia, joint swelling, back pain, neck pain SKIN: Absent: rash, itching, pallor HEMATOLOGIC/IMMUNOLOGIC: Absent: easy bleeding, easy bruising, lymphadenopathy, frequent infections ENDOCRINE: Absent: unexplained weight gain, unexplained weight loss, heat intolerance, cold intolerance NEUROLOGIC: Absent: headache, focal weakness or paresthesias, dizziness, unsteady gait, seizure, mental status changes, bladder or bowel incontinence PSYCHIATRIC: Absent: anxiety, depression, suicidal or homicidal ideation, hallucinations. PHYSICAL EXAMINATION Vital Signs - 24 hr 3 07/13/18 07/13/18 17:06 20:52 Temperature 98.4 F 98.3 F Pulse Rate 78 Pulse Rate [ 70 Apical] Respiratory 16 18 Rate Blood Pressure 135/56 L Blood Pressure 145/71 [Left Arm] O2 Sat by Pulse 100 98 Oximetry (%) GENERAL: Awake, alert, and fully oriented, in no acute distress. HEAD: Normal with no signs of trauma. EYES: Pupils equal, round and reactive to light, extraocular movements intact, sclera anicteric, conjunctiva clear. No lid lag. EARS, NOSE, THROAT: Ears normal, nares patent, oropharynx clear without exudates. Moist mucous membranes. no blood visualized in back of throat or nares NECK: Normal range of motion, supple without lymphadenopathy, JVD, or masses. LUNGS: Breath sounds equal, clear to auscultation bilaterally. No wheezes, and no crackles. No accessory muscle use. HEART: Regular rate and rhythm, normal S1 and S2 without murmur, rub or gallop. ABDOMEN: Soft, nontender, not distended, normoactive bowel sounds, no guarding, no rebound, no masses. No hepatomegaly or splenomegaly. MUSCULOSKELETAL: Normal range of motion at all joints. No bony deformities or tenderness. No CVA tenderness. UPPER EXTREMITIES: 2+ pulses, warm, well-perfused. No cyanosis. No clubbing. No peripheral edema. + bruit and thrill inner aspect R upper arm LOWER EXTREMITIES: 2+ pulses, warm, well-perfused. No calf tenderness. No peripheral edema. NEUROLOGICAL: Cranial nerves II-XII intact. Normal speech. PSYCHIATRIC: Cooperative. Good eye contact. Appropriate mood and affect. SKIN: Warm, dry, normal turgor, no rashes or lesions noted, normal capillary refill. healing wound left great toe, amputation site. sutures intact. Laboratory Results - last 24 hr 3 07/13/18 07/13/18 07/13/18 18:19 18:19 18:19 WBC 6.2 RBC 3.71 L Hgb 10.5 L Hct 33.2 L D MCV 89.5 MCH 28.4 MCHC 31.7 L RDW 17.9 H Plt Count 234 D MPV 8.5 D Absolute Neuts (auto) 4.3 Neutrophils % 69.9 Lymphocytes % 14.1 D Monocytes % 9.0 Eosinophils % 6.8 H Basophils % 0.2 Nucleated RBC % 0 PT with INR 11.70 INR 0.99 Sodium 138 Potassium 4.9 Chloride 100 Carbon Dioxide 33 H Anion Gap 5 L BUN 29 H Creatinine 5.4 H Creat Clearance w eGFR 10.49 Random Glucose 189 H Calcium 9.0 Total Bilirubin 0.4 AST 20 ALT < 6 L Alkaline Phosphatase 130 H Total Protein 7.2 Albumin 3.0 L Blood Type O POSITIVE Antibody Screen Negative Radiology Reports CT chest with IV contrast Impression: No CT evidence of pulmonary embolism. Cardiomegaly, bilateral pleural effusions with bibasilar compressive atelectasis , interstitial pulmonary vascular congestion. Status post median sternotomy. Transvenous cardiac pacemaker in place. Nonspecific 0.7 cm right upper lobe and 0.9 cm right lower lobe pulmonary nodules are noted. There is a probable additional 0.5 cm right basilar nodule. Correlation with 2-3 month follow-up CT is suggested to evaluate stability unless prior CT studies are available from a different facility for direct comparison. Nonspecific mildly prominent bilateral hilar lymph nodes are seen. Correlate clinically and with follow-up contrast enhanced CT in approximately 2-3 months ( versus comparison with prior exams from a different facility). Reported By: Bryant Larsen MD 07/13/18 1723 ASSESSMENT/PLAN: 72yM with PMH HTN, HLD, CAD, ICM, sCHF, DM, PVD, ESRD, hypothyroid, osteomyelitis presented to the ED with hemoptysis x 1 day. Hemoptysis - pulmonary consult - trend H/H - hold ASA and heparin, cont plavix as recent stent in LLE - consider ENT consult although no obvious source identified in proximal nares HTN, HLD, CAD, CHF-chronic systolic - cont home meds except ASA - restart ASA as soon as possible DM - home glargine converted to formulary levemir - BGM AC/HS with novolog SS osteomyelitis left foot - foot wound healing well, cont daily dressing changes - cont ancef with dialysis hypothyroid - check TSH - cont home synthroid DVT PPX - heparin deferred secondary to bleeding FEN - tolerating po, 1000cc fluid restriction due to dialysis status - bmp in am - renal diet as tolerated Dispo: Pt currently requires further observation for management of his emergent condition Visit type - Emergency Visit Emergency Visit: Yes ED Registration Date: 07/13/18 Care time: The patient presented to the Emergency Department on the above date and was hospitalized for further evaluation of their emergent condition. - New Patient This patient is new to me today: Yes Date on this admission: 07/14/18 - Critical Care Critical Care patient: No
[2018-07-14] MEDS ORDERED: ALBUTEROL SO4 0.083% IH SOL 2.5 MG/3 ML VIAL.NEB. NEB PRN (01:25)
[2018-07-14] MEDS ORDERED: CEFAZOLIN IV SCH (01:30)
[2018-07-14] MEDS: ACETAMINOPHEN 325 MG TABLET (FP) PO PRN (04:10)
[2018-07-14] MEDS: INSULIN SLIDING SCALE (NOVOLOG) 1 VIAL SQ SCH ×4 (06:58→23:14)
[2018-07-14] MEDS: LEVOTHYROXINE NA 25 MCG TABLET (FP) PO SCH (06:58)
[2018-07-14 07:02] LABS: ANION GAP 7 MMOL/L (8-16); BLOOD UREA NITROGEN 32 mg/dL (7-18); CALCIUM 8.9 mg/dL (8.5-10.1); CHLORIDE 99 mmol/L (98-107); CO2 28 mmol/L (21-32); CREATININE 5.8 mg/dL (0.55-1.3); GLUCOSE,RANDOM 224 mg/dL (74-106); MAGNESIUM 2.2 mg/dL (1.8-2.4); PHOSPHOROUS 2.9 mg/dL (2.5-4.9); POTASSIUM 4.9 mmol/L (3.5-5.1); SODIUM 134 mmol/L (136-145)
[2018-07-14 07:03] LABS: BASO % 1.7 % (0-2.0); HEMATOCRIT 32.8 % (35.4-49); HEMOGLOBIN 10.3 GM/dL (11.7-16.9); LYMPH % 13.9 % (8-40); MCHC 31.4 g/dl (32.0-35.9); MEAN CELL VOLUME 89.1 fl (80-96); MEAN PLT VOLUME 8.7 fl (7.5-11.1); MONO % 10.5 % (3.8-10.2); NEUT % 66.9 % (42.8-82.8); PLATELET COUNT 190 K/MM3 (134-434); RBC 3.68 M/mm3 (4.00-5.60); WHITE BLOOD COUNT 5.9 K/mm3 (4.0-10.0)
[2018-07-14] MEDS: ACETAMINOPHEN 325 MG TABLET (FP) PO SCH ×3 (08:59→23:12)
[2018-07-14] MEDS: oxyCODONE HCL 5 MG TABLET PO SCH ×3 (08:59→23:12)
[2018-07-14] MEDS ORDERED: PT OWN MED DRAWER 7, Y5N ONE (09:49)
[2018-07-14] MEDS: CLOPIDOGREL BISULFATE 75 MG TABLET (FP) PO SCH (09:53)
[2018-07-14] MEDS: VITAMIN B COMP W-C 1 EA TABLET PO SCH (09:55)
[2018-07-14] MEDS: CHOLECALCIFEROL (VITAMIN D3) 1,000 UNIT TABLET (FP) PO SCH (09:55)
[2018-07-14] MEDS: PANTOPRAZOLE 40 MG TABLET (FP) PO SCH (09:55)
[2018-07-14] MEDS: CALCIUM ACETATE 667 MG CAPSULE (FP) PO SCH ×3 (09:56→22:52)
[2018-07-14] MEDS: METOPROLOL SUCCINATE 100 MG, METOPROLOL SUCCINATE 50 MG PO SCH (09:56)
[2018-07-14] MEDS ORDERED: CEFAZOLIN 3 GM in DEXTROSE 5%-WATER - 100 ML IVPB SCH (10:00)
--- NOTE | 2018-07-14 13:30 | PN ---
Progress Note (short form) - Note Progress Note: Hemoptysis this AM Denies SOB Vital Signs - 24 hr 07/13/18 07/14/18 07/14/18 20:52 04:14 06:00 Temperature 98.3 F 98.6 F 97.4 F L Pulse Rate 83 Pulse Rate [ 70 84 Apical] Respiratory 18 17 18 Rate Blood Pressure 147/70 Blood Pressure 145/71 136/64 [Left Arm] O2 Sat by Pulse 98 97 Oximetry (%) 07/14/18 07/14/18 07/14/18 08:37 09:02 09:21 Temperature 97.7 F 97.7 F Pulse Rate 82 82 Pulse Rate [ Apical] Respiratory 18 18 Rate Blood Pressure 138/67 138/67 Blood Pressure [Left Arm] O2 Sat by Pulse 97 Oximetry (%) 07/14/18 07/14/18 09:25 15:48 Temperature 98.0 F Pulse Rate 84 Pulse Rate [ Apical] Respiratory 18 18 Rate Blood Pressure 122/60 Blood Pressure [Left Arm] O2 Sat by Pulse 97 Oximetry (%) Current Medications Generic Name Dose Route Start Last Admin Trade Name Freq PRN Reason Stop Dose Admin Acetaminophen 650 mg 07/14/18 01:25 07/14/18 04:10 Tylenol - PO 650 mg Q6H PRN Administration PAIN Acetaminophen 325 mg 07/14/18 07:00 07/14/18 09:56 Tylenol - PO 325 mg Q12H VALERY Administration Albuterol Sulfate 1 amp 07/14/18 01:25 Ventolin 0.083% Nebulizer Soln - NEB Q8H PRN Dyspnea Atorvastatin Calcium 80 mg 07/14/18 22:00 Lipitor - PO HS VALERY Calcium Acetate 667 mg 07/14/18 08:00 07/14/18 14:46 Phoslo - PO 667 mg TIDCM VALERY Administration Cefazolin Sodium/Dextrose 2 gm 07/14/18 17:30 Ancef 2 Gm Premixed Ivpb - IVPB TuTh@1700 VALERY Cholecalciferol 1,000 unit 07/14/18 10:00 07/14/18 09:55 Vitamin D3 - PO 1,000 unit DAILY VALERY Administration Clopidogrel Bisulfate 75 mg 07/14/18 10:00 07/14/18 09:53 Plavix - PO 75 mg DAILY VALERY Administration Cefazolin Sodium 3 gm/ 100 mls @ 200 mls/hr 10/06/18 10:00 07/14/18 17:19 Dextrose IVPB Not Given Sa@1000 VALERY Sodium Chloride 250 mls @ 3,000 mls/hr 07/14/18 17:07 Normal Saline - IV 07/15/18 17:06 PRN PRN Hypotension during Dialysis Insulin Aspart 1 vial 07/14/18 07:00 07/14/18 12:24 Novolog Vial Sliding Scale - SQ 2 units ACHS VALERY Administration Protocol Insulin Detemir 16 units 07/14/18 22:00 Levemir Vial SQ HS VALERY Levothyroxine Sodium 25 mcg 07/14/18 07:00 07/14/18 06:58 Synthroid - PO 25 mcg DAILY@0700 VALERY Administration Melatonin 3 mg 07/14/18 22:00 Melatonin PO HS VALERY Metoprolol Succinate 100 mg/ 150 mg 07/14/18 10:00 07/14/18 09:56 Metoprolol Succinate 50 mg PO 150 mg DAILY VALERY Administration Multivit/Ca Carb/B Cmplx/FA/Prenat 1 tablet 07/14/18 10:00 07/14/18 09:55 Nephro-Misty - PO 1 tablet DAILY VALERY Administration Non-Formulary Medication 5 gm 07/14/18 06:00 Vit A/Vitamin D3/E/Aloe V/Zinc [Periguard Ointment] TP TID VALERY Oxycodone HCl 10 mg 07/14/18 07:00 07/14/18 09:53 Roxicodone - PO 10 mg Q12H VALERY Administration Pantoprazole Sodium 40 mg 07/14/18 10:00 07/14/18 09:55 Protonix - PO 40 mg DAILY VALERY Administration Sacubitril/Valsartan 1 tab 07/14/18 10:00 07/14/18 15:45 Entresto 49 Mg-51 Mg Tablet PO 1 tab BID VALERY Administration Senna 1 tab 07/14/18 22:00 Senna - PO HS VALERY Sertraline HCl 50 mg 07/14/18 22:00 Zoloft - PO HS VALERY Laboratory Results - last 24 hr 07/13/18 07/13/18 07/13/18 18:19 18:19 18:19 WBC 6.2 RBC 3.71 L Hgb 10.5 L Hct 33.2 L D MCV 89.5 MCH 28.4 MCHC 31.7 L RDW 17.9 H Plt Count 234 D MPV 8.5 D Absolute Neuts (auto) 4.3 Neutrophils % 69.9 Lymphocytes % 14.1 D Monocytes % 9.0 Eosinophils % 6.8 H Basophils % 0.2 Nucleated RBC % 0 PT with INR 11.70 INR 0.99 Sodium 138 Potassium 4.9 Chloride 100 Carbon Dioxide 33 H Anion Gap 5 L BUN 29 H Creatinine 5.4 H Creat Clearance w eGFR 10.49 POC Glucometer Random Glucose 189 H Calcium 9.0 Phosphorus Magnesium Total Bilirubin 0.4 AST 20 ALT < 6 L Alkaline Phosphatase 130 H Total Protein 7.2 Albumin 3.0 L TSH Blood Type Antibody Screen 07/13/18 07/14/18 07/14/18 18:19 06:05 06:10 WBC 5.9 RBC 3.68 L Hgb 10.3 L Hct 32.8 L MCV 89.1 MCH 28.0 MCHC 31.4 L RDW 18.0 H Plt Count 190 MPV 8.7 Absolute Neuts (auto) 3.9 Neutrophils % 66.9 Lymphocytes % 13.9 Monocytes % 10.5 H Eosinophils % 7.0 H Basophils % 1.7 D Nucleated RBC % 0 PT with INR INR Sodium 134 L Potassium 4.9 Chloride 99 Carbon Dioxide 28 Anion Gap 7 L BUN 32 H Creatinine 5.8 H Creat Clearance w eGFR 9.66 POC Glucometer Random Glucose 224 H Calcium 8.9 Phosphorus 2.9 Magnesium 2.2 Total Bilirubin AST ALT Alkaline Phosphatase Total Protein Albumin TSH 4.88 H D Blood Type O POSITIVE Antibody Screen Negative 07/14/18 07/14/18 06:57 11:31 WBC RBC Hgb Hct MCV MCH MCHC RDW Plt Count MPV Absolute Neuts (auto) Neutrophils % Lymphocytes % Monocytes % Eosinophils % Basophils % Nucleated RBC % PT with INR INR Sodium Potassium Chloride Carbon Dioxide Anion Gap BUN Creatinine Creat Clearance w eGFR POC Glucometer 215 159 Random Glucose Calcium Phosphorus Magnesium Total Bilirubin AST ALT Alkaline Phosphatase Total Protein Albumin TSH Blood Type Antibody Screen S1 S2 RRR Lungs decreased Abd- soft ,NT No edema PLAN Check sputum studies on empiric antibiotics PPD was negative in the [place] Bronchoscopy as per Pulmonary Problem List - Problems (1) Hemoptysis Code(s): R04.2 - HEMOPTYSIS (2) ASHD (arteriosclerotic heart disease) Code(s): I25.10 - ATHSCL HEART DISEASE OF [place] CORONARY ARTERY W/O ANG PCTRS (3) Chronic HFrEF (heart failure with reduced ejection fraction) Code(s): I50.22 - CHRONIC SYSTOLIC (CONGESTIVE) HEART FAILURE (4) ESRD (end stage renal disease) on dialysis Code(s): N18.6 - END STAGE RENAL DISEASE; Z99.2 - DEPENDENCE ON RENAL DIALYSIS
--- NOTE | 2018-07-14 13:40 | CON.PULM ---
Consult Consult Specialty:: PULMONARY Referred by:: ROYA Reason for Consultation:: HEMOPTYSIS - History of Present Illness Chief Complaint: BLOODY SPUTUM History of Present Illness: HISTORY OF PRESENT ILLNESS: This is a 72-year-old male resident of the [facility] with a history of CAD s/p CABG, HTN, HLD, hypothyroidism, PVD s/p left great toe amputation, and ESRD on HD //Mon. presents to the ER after coughing up blood on a few occasions. He reports that he coughed about a teaspoon of blood twice. He also has right upper back pain which is new today. He denies dyspnea, fevers/chills, night sweats, he is a SNF resident and has been on HD for 2 years. 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 - History Source History Provided By: Patient, Medical Record Limitations to Obtaining History: No Limitations - Past Medical History ICU RN: Yes: TIA. No: Alzheimer's Cardio/Vascular: Yes: AFIB, CAD, CHF, HTN, Hyperlipdemia, ID, Mitral Insufficiency Pulmonary: Yes: COPD. No: O2 Dependent Gastrointestinal: Yes: GI Bleed Hepatobiliary: No: Cirrhosis Renal/: Yes: Renal Failure, Hemodialysis Heme/Onc: Yes: Anemia Psych: Yes: Anxiety Musculoskeletal: Yes: Other Rheumatology: No: Lupus, Rheumatoid Arthritis, Sarcoidosis Endocrine: Yes: Diabetes Mellitus Dermatology: Yes: Other (gangarene left big toe) - Past Surgical History Past Surgical History: Yes: AICD, AV Fistula/Graft, CABG - Alcohol/Substance Use Hx Alcohol Use: No - Smoking History Smoking history: Former smoker Have you smoked in the past 12 months: No Aproximately how many cigarettes per day: 5 If you are a former smoker, when did you quit?: 2004 - Social History Usual Living Arrangement: [facility] of : Other History of Recent Travel: No Home Medications - Allergies Allergies/Adverse Reactions: Allergies Allergy/AdvReac Type Severity Reaction Status Date / Time gabapentin [From Neurontin] AdvReac Verified 07/13/18 17:19 - Home Medications Home Medications: Ambulatory Orders Acetaminophen 650 mg PO Q4H PRN 02/28/18 Aspirin [ASA -] 81 mg PO DAILY 02/28/18 Atorvastatin Ca [Lipitor] 80 mg PO HS 02/28/18 Calcium Acetate [Phoslo -] 667 mg PO TIDCM 02/28/18 Clopidogrel Bisulfate [Plavix -] 75 mg PO DAILY 02/28/18 Insulin Glargine,Hum.rec.anlog [Lantus] 16 unit SQ HS 02/28/18 Levothyroxine [Synthroid -] 25 mcg PO DAILY 02/28/18 Metoprolol Succinate [Toprol Xl] 150 mg PO DAILY 02/28/18 Pantoprazole Sodium 40 mg PO DAILY 02/28/18 Sennosides [Senna -] 1 tab PO HS 02/28/18 Sertraline HCl [Zoloft -] 50 mg PO HS 02/28/18 Heparin - 5,000 unit SQ BID #1 vial 03/10/18 Albuterol 0.083% Nebulizer Yessi [Ventolin 0.083% Nebulizer Soln -] 1 amp IN Q8H PRN 03/28/18 Sacubitril/Valsartan [Entresto 49 mg-51 mg Tablet] 1 tab PO BID #60 tablet 04/05 Melatonin 3 mg PO HS 04/21/18 Cefazolin 2 gm/D5w [Ancef 2 gm Premixed Ivpb -] 2 gm IV Q48H #30 ml 06/28/18 Cefazolin [Ancef] 3 gm IV WEEKLY 07/13/18 Cholecalciferol (Vitamin D3) [Vitamin D3] 1,000 unit PO DAILY 07/13/18 Insulin Sliding Scale [Novolog Vial Sliding Scale -] 0 units SQ BID 07/13/18 Oxycodone HCl/Acetaminophen [Percocet 10-325 mg Tablet] 1 each PO BID 07/13/18 Vitamin B Comp W-C [Nephro-Misty -] 1 tablet PO DAILY 07/13/18 Vit A/Vitamin D3/E/Aloe V/Zinc [Periguard Ointment] 5 gm TP TID 07/14/18 Family Disease History - Family Disease History Family History: Unremarkable Review of Systems - Review of Systems Constitutional: reports: Loss of Appetite, Unintentional Wgt. Loss. denies: Chills, Fever, Malaise, Night Sweats, Weakness Eyes: denies: Blurred Vision HENT: denies: Difficult Swallowing, Gingival Bleeding, Nasal Congestion, Throat Pain Neck: denies: Decreased ROM Cardiovascular: denies: Chest Pain, Shortness of Breath Respiratory: reports: Cough, Hemoptysis. denies: Orthopnea, Wheezing Gastrointestinal: denies: Abdominal Pain Genitourinary: reports: No Symptoms Breasts: reports: No Symptoms Reported Musculoskeletal: reports: Back Pain Integumentary: reports: No Symptoms Neurological: reports: No Symptoms Endocrine: reports: No Symptoms Physical Exam Vital Sings: Vital Signs Temperature 97.7 F 07/14/18 09:02 Pulse Rate 82 07/14/18 09:02 Respiratory Rate 18 07/14/18 09:25 Blood Pressure 138/67 07/14/18 09:02 O2 Sat by Pulse Oximetry (%) 97 07/14/18 09:25 Constitutional: Yes: Calm Eyes: Yes: EOM Intact HENT: Yes: Normocephalic Neck: Yes: Trachea Midline Cardiovascular: Yes: S1, S2 Respiratory: Yes: Diminished (bibasilar left greater than right), Rales ( scattered crackles) ...Inspection: Yes: WNL Gastrointestinal: Yes: Normal Bowel Sounds, Soft Extremities: Yes: Amputation (left great toe) Edema: No Neurological: Yes: Alert Labs: CBC, BMP 07/14/18 06:10 07/14/18 06:05 rest reviewed Imaging - Results Chest X-ray: Report Reviewed, Image Reviewed Cat Scan: Report Reviewed, Image Reviewed Problem List - Problems (1) Hemoptysis Code(s): R04.2 - HEMOPTYSIS (2) ASHD (arteriosclerotic heart disease) Code(s): I25.10 - ATHSCL HEART DISEASE OF [place] CORONARY ARTERY W/O ANG PCTRS (3) Anemia Code(s): D64.9 - ANEMIA, UNSPECIFIED (4) COPD (chronic obstructive pulmonary disease) Code(s): J44.9 - CHRONIC OBSTRUCTIVE PULMONARY DISEASE, UNSPECIFIED Qualifiers: COPD type: unspecified COPD Qualified Code(s): J44.9 - Chronic obstructive pulmonary disease, unspecified (5) Diabetes Code(s): E11.9 - TYPE 2 DIABETES MELLITUS WITHOUT COMPLICATIONS Qualifiers: Diabetes mellitus type: type 2 Diabetes mellitus watcher automat long goods insulin use: without watcher automat long goods use Diabetes mellitus complication status: with neurologic complications (6) ESRD (end stage renal disease) Code(s): N18.6 - END STAGE RENAL DISEASE (7) HTN (hypertension) Code(s): I10 - ESSENTIAL (PRIMARY) HYPERTENSION Qualifiers: Hypertension type: essential hypertension Qualified Code(s): I10 - Essential (primary) hypertension (8) Hepatitis C antibody test positive Code(s): R76.8 - OTHER SPECIFIED ABNORMAL IMMUNOLOGICAL FINDINGS IN SERUM (9) ICD (implantable cardioverter-defibrillator) in place Code(s): Z95.810 - PRESENCE OF AUTOMATIC (IMPLANTABLE) CARDIAC DEFIBRILLATOR (10) Ischemic dilated cardiomyopathy Code(s): I25.5 - ISCHEMIC CARDIOMYOPATHY; I42.0 - DILATED CARDIOMYOPATHY (11) Pleural effusion Code(s): J90 - PLEURAL EFFUSION, NOT ELSEWHERE CLASSIFIED (12) S/P CABG (coronary artery bypass graft) Code(s): Z95.1 - PRESENCE OF AORTOCORONARY BYPASS GRAFT Assessment/Plan HEMOPTYSIS ETIOLOGY? ON CT CHEST THERE IS AN ENDOBRONCHIAL DENSITY AT THE LEVEL OF THE FISH ON THE RIGHT. I HAVE ASKED RADIOLOGY TO COMPOSE AN ADDENDUM TO THEIR ORIGINAL REPORT TO REFLECT THAT FINDING EVEN THOUGH A RECENT PPD WAS NEGATIVE AFB DISEASE IS COMMON IN PATIENTS ON HD I HAVE A LOW INDEX OF SUSPICION FOR TBC PATIENT IS VIRTUALLY ASYMPTOMATIC SAVE FOR HEMOPTYSIS I WOULD SUGGEST A BRONCHOSCOPY TO R/O AN ENDOBRONCHIAL LESION USUAL MICRO SPECIMENS WILL BE COLLECTED AT THAT TIME WILL ISOLATE FOR NOW AND BEGIN SPUTUM COLLECTIONS/QUANT GOLD Debra PUENTES MD
--- NOTE | 2018-07-14 14:05 | CONSULT ---
Consult Consult Specialty:: Nephrology Reason for Consultation:: ESRD - History of Present Illness Chief Complaint: hemoptysis History of Present Illness: Pt is a 72 year old male with pmhx of ESRD, CABG, CAD, PVD, HTN, HLD, and hypothyroidism who presents to the ER wtih hemoptysis. He says that he has had it for about one week. He denies shortness of breath. He was last dialyzed on and is due for HD today. He denies fevers or chills. He denies night sweats. He denies chest pain. 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 Cardio/Vascular: Yes: AFIB, CAD, CHF, HTN, Hyperlipdemia, NC, Mitral Insufficiency Pulmonary: Yes: COPD Gastrointestinal: Yes: GI Bleed Renal/: Yes: Renal Failure, Hemodialysis Psych: Yes: Anxiety Musculoskeletal: Yes: Other Endocrine: Yes: Diabetes Mellitus Dermatology: Yes: Other (gangarene left big toe) - Past Surgical History Past Surgical History: Yes: AICD, AV Fistula/Graft, CABG - Alcohol/Substance Use Hx Alcohol Use: No - Smoking History Smoking history: Former smoker Have you smoked in the past 12 months: No Aproximately how many cigarettes per day: 5 If you are a former smoker, when did you quit?: 2004 - Social History Usual Living Arrangement: Jail History of Recent Travel: No Home Medications - Allergies Allergies/Adverse Reactions: Allergies Allergy/AdvReac Type Severity Reaction Status Date / Time gabapentin [From Neurontin] AdvReac Verified 07/13/18 17:19 - Home Medications Home Medications: Ambulatory Orders Acetaminophen 650 mg PO Q4H PRN 02/28/18 Aspirin [ASA -] 81 mg PO DAILY 02/28/18 Atorvastatin Ca [Lipitor] 80 mg PO HS 02/28/18 Calcium Acetate [Phoslo -] 667 mg PO TIDCM 02/28/18 Clopidogrel Bisulfate [Plavix -] 75 mg PO DAILY 02/28/18 Insulin Glargine,Hum.rec.anlog [Lantus] 16 unit SQ HS 02/28/18 Levothyroxine [Synthroid -] 25 mcg PO DAILY 02/28/18 Metoprolol Succinate [Toprol Xl] 150 mg PO DAILY 02/28/18 Pantoprazole Sodium 40 mg PO DAILY 02/28/18 Sennosides [Senna -] 1 tab PO HS 02/28/18 Sertraline HCl [Zoloft -] 50 mg PO HS 02/28/18 Heparin - 5,000 unit SQ BID #1 vial 03/10/18 Albuterol 0.083% Nebulizer Yessi [Ventolin 0.083% Nebulizer Soln -] 1 amp IN Q8H PRN 03/28/18 Sacubitril/Valsartan [Entresto 49 mg-51 mg Tablet] 1 tab PO BID #60 tablet 04/05 Melatonin 3 mg PO HS 04/21/18 Cefazolin 2 gm/D5w [Ancef 2 gm Premixed Ivpb -] 2 gm IV Q48H #30 ml 06/28/18 Cefazolin [Ancef] 3 gm IV WEEKLY 07/13/18 Cholecalciferol (Vitamin D3) [Vitamin D3] 1,000 unit PO DAILY 07/13/18 Insulin Sliding Scale [Novolog Vial Sliding Scale -] 0 units SQ BID 07/13/18 Oxycodone HCl/Acetaminophen [Percocet 10-325 mg Tablet] 1 each PO BID 07/13/18 Vitamin B Comp W-C [Nephro-Misty -] 1 tablet PO DAILY 07/13/18 Vit A/Vitamin D3/E/Aloe V/Zinc [Periguard Ointment] 5 gm TP TID 07/14/18 Family Disease History - Family Disease History Family History: Denies Review of Systems - Review of Systems Constitutional: denies: Chills, Fever Eyes: reports: No Symptoms HENT: reports: No Symptoms Neck: reports: No Symptoms Cardiovascular: reports: No Symptoms Respiratory: reports: Hemoptysis Gastrointestinal: reports: No Symptoms Genitourinary: reports: No Symptoms Musculoskeletal: reports: No Symptoms Integumentary: reports: No Symptoms Neurological: reports: No Symptoms Endocrine: reports: No Symptoms Hematology/Lymphatic: reports: No Symptoms Psychiatric: reports: No Symptoms Physical Exam Vital Signs: Vital Signs Temperature 97.7 F 07/14/18 09:02 Pulse Rate 82 07/14/18 09:02 Respiratory Rate 18 07/14/18 09:25 Blood Pressure 138/67 07/14/18 09:02 O2 Sat by Pulse Oximetry (%) 97 07/14/18 09:25 Constitutional: Yes: Calm Eyes: Yes: Conjunctiva Clear HENT: Yes: Atraumatic Cardiovascular: Yes: S1, S2 Respiratory: Yes: Rhonchi Gastrointestinal: Yes: Soft Renal/: Yes: WNL Musculoskeletal: Yes: WNL Edema: Yes Edema: LLE: Trace, RLE: Trace Neurological: Yes: Oriented Psychiatric: Yes: Oriented Labs: CBC, BMP 07/14/18 06:10 07/14/18 06:05 Laboratory Tests 07/13/18 07/13/18 07/14/18 18:19 18:19 06:05 WBC Hgb 10.5 L Plt Count Sodium 134 L Potassium 4.9 Chloride 99 BUN 29 H 32 H Creatinine 5.4 H 5.8 H 07/14/18 06:10 WBC 5.9 Hgb 10.3 L Plt Count 190 Sodium Potassium Chloride BUN Creatinine Imaging - Results Cat Scan: Report Reviewed Problem List - Problems (1) Hemoptysis Code(s): R04.2 - HEMOPTYSIS (2) ESRD (end stage renal disease) Code(s): N18.6 - END STAGE RENAL DISEASE Assessment/Plan Current Medications Generic Name Dose Route Start Last Admin Trade Name Freq PRN Reason Stop Dose Admin Acetaminophen 650 mg 07/14/18 01:25 07/14/18 04:10 Tylenol - PO 650 mg Q6H PRN Administration PAIN Acetaminophen 325 mg 07/14/18 07:00 07/14/18 09:56 Tylenol - PO 325 mg Q12H [facility] Administration Albuterol Sulfate 1 amp 07/14/18 01:25 Ventolin 0.083% Nebulizer Soln - NEB Q8H PRN Dyspnea Atorvastatin Calcium 80 mg 07/14/18 22:00 Lipitor - PO HS [facility] Calcium Acetate 667 mg 07/14/18 08:00 07/14/18 09:56 Phoslo - PO 667 mg TIDCM [facility] Administration Cefazolin Sodium/Dextrose 2 gm 07/17/18 10:00 Ancef 2 Gm Premixed Ivpb - IVPB TuTh@1000 [facility] Cholecalciferol 1,000 unit 07/14/18 10:00 07/14/18 09:55 Vitamin D3 - PO 1,000 unit DAILY [facility] Administration Clopidogrel Bisulfate 75 mg 07/14/18 10:00 07/14/18 09:53 Plavix - PO 75 mg DAILY [facility] Administration Epoetin Parmjit 5,000 unit 07/14/18 12:44 Epogen - IVPUSH 07/14/18 12:45 ONCE ONE Cefazolin Sodium 3 gm/ 100 mls @ 200 mls/hr 07/14/18 10:00 Dextrose IVPB Sa@1000 [facility] Sodium Chloride 250 mls @ 3,000 mls/hr 07/14/18 12:44 Normal Saline - IV 07/15/18 12:44 PRN PRN Hypotension during Dialysis Insulin Aspart 1 vial 07/14/18 07:00 07/14/18 12:24 Novolog Vial Sliding Scale - SQ 2 units ACHS [facility] Administration Protocol Insulin Detemir 16 units 07/14/18 22:00 Levemir Vial SQ HS [facility] Levothyroxine Sodium 25 mcg 07/14/18 07:00 07/14/18 06:58 Synthroid - PO 25 mcg DAILY@0700 [facility] Administration Melatonin 3 mg 07/14/18 22:00 Melatonin PO HS [facility] Metoprolol Succinate 100 mg/ 150 mg 07/14/18 10:00 07/14/18 09:56 Metoprolol Succinate 50 mg PO 150 mg DAILY [facility] Administration Multivit/Ca Carb/B Cmplx/FA/Prenat 1 tablet 07/14/18 10:00 07/14/18 09:55 Nephro-Misty - PO 1 tablet DAILY [facility] Administration Non-Formulary Medication 5 gm 07/14/18 06:00 Vit A/Vitamin D3/E/Aloe V/Zinc [Periguard Ointment] TP TID [facility] Oxycodone HCl 10 mg 07/14/18 07:00 07/14/18 09:53 Roxicodone - PO 10 mg Q12H [facility] Administration Pantoprazole Sodium 40 mg 07/14/18 10:00 07/14/18 09:55 Protonix - PO 40 mg DAILY [facility] Administration Sacubitril/Valsartan 1 tab 07/14/18 10:00 Entresto 49 Mg-51 Mg Tablet PO BID [facility] Senna 1 tab 07/14/18 22:00 Senna - PO HS [facility] Sertraline HCl 50 mg 07/14/18 22:00 Zoloft - PO HS [facility] Impression 1. ESRD 2. hemoptysis 3. DM 4. CAD 5. PVD 6. DFU 7. anemia 8. hx steal syndrome s/p DRIL procedure 9. CHF 10. pulmonary nodules Plan - will arrange for HD today - pulmonary eval - ct neg for PE - pulmonary follow up
[2018-07-14] MEDS: SACUBITRIL/VALSARTAN 49 MG-51 MG TABLET PO SCH ×2 (15:45→23:12)
--- NOTE | 2018-07-14 16:54 | EKG ---
Test Reason : Blood Pressure : / mmHG Vent. Rate : 082 BPM Atrial Rate : 080 BPM P-R Int : 248 ms QRS Dur : 090 ms QT Int : 424 ms P-R-T Axes : 000 -09 113 degrees QTc Int : 495 ms Atrial-paced rhythm with prolonged AV conduction WITH PREMATURE ATRIAL COMPLEXES NONSPECIFIC ST AND T WAVE ABNORMALITY PROLONGED QT ABNORMAL ECG WHEN COMPARED WITH ECG OF 14-JUN-2018 00:39, PREMATURE ATRIAL COMPLEXES ARE NOW PRESENT BASELINE ARTIFACT Confirmed by ALIS JENNINGS, SAMANTHA ([id number]) on 07/14/2018 4:54:07 PM Referred By: Confirmed By:SAMANTHA SNELL MD
[2018-07-14] MEDS ORDERED: SODIUM CHLORIDE 250 ML IV PRN (17:07)
[2018-07-14] MEDS ORDERED: EPOETIN ALFA 2,000 UNIT/1 ML VIAL IVPUSH ONE (17:15)
[2018-07-14] MEDS ORDERED: ceFAZolin 2 GRAM PREMIX BAG IVPB SCH (17:30)
[2018-07-14] MEDS: CEFAZOLIN 3 GM in DEXTROSE 5%-WATER - 100 ML IVPB SCH (22:52)
[2018-07-14] MEDS: ATORVASTATIN CA 80 MG TABLET (FP) PO SCH (23:12)
[2018-07-14] MEDS: MELATONIN 1 MG TABLET PO SCH (23:12)
[2018-07-14] MEDS: SERTRALINE HCL 50 MG TABLET (FP) PO SCH (23:12)
[2018-07-14] MEDS: SENNOSIDES 8.6MG TABLET (FP) PO SCH (23:12)
[2018-07-14] MEDS: INSULIN (LEVEMIR) 100 UNITS/ML UNITS SQ SCH (23:14)
[2018-07-15] MEDS: INSULIN SLIDING SCALE (NOVOLOG) 1 VIAL SQ SCH ×4 (07:19→22:34)
[2018-07-15] MEDS: oxyCODONE HCL 5 MG TABLET PO SCH ×2 (07:19→18:36)
[2018-07-15] MEDS: ACETAMINOPHEN 325 MG TABLET (FP) PO SCH ×2 (07:20→18:37)
[2018-07-15] MEDS: LEVOTHYROXINE NA 25 MCG TABLET (FP) PO SCH (07:20)
[2018-07-15 07:42] LABS: HEMATOCRIT 32.3 % (35.4-49); HEMOGLOBIN 10.4 GM/dL (11.7-16.9); MCH 28.3 pg (25.7-33.7); MCHC 32.3 g/dl (32.0-35.9); MEAN CELL VOLUME 87.7 fl (80-96); MEAN PLT VOLUME 8.4 fl (7.5-11.1); PLATELET COUNT 211 K/MM3 (134-434); RBC 3.68 M/mm3 (4.00-5.60); WHITE BLOOD COUNT 6.1 K/mm3 (4.0-10.0)
[2018-07-15 08:14] LABS: ANION GAP 8 MMOL/L (8-16); BLOOD UREA NITROGEN 21 mg/dL (7-18); CALCIUM 8.4 mg/dL (8.5-10.1); CHLORIDE 99 mmol/L (98-107); CO2 32 mmol/L (21-32); CREATININE 4.4 mg/dL (0.55-1.3); GLUCOSE,RANDOM 110 mg/dL (74-106); POTASSIUM 3.9 mmol/L (3.5-5.1); SODIUM 138 mmol/L (136-145)
[2018-07-15] MEDS: CALCIUM ACETATE 667 MG CAPSULE (FP) PO SCH ×3 (08:58→18:38)
--- NOTE | 2018-07-15 10:13 | PN ---
Progress Note (short form) - Note Progress Note: PULMONARY APPEARS PALE/WEAK AFEBRILE COUGHING CLOTS CONTINUES NO SIGNIFICANT CHANGE IN EXAM WILL KEEP NPO AFTER MIDNIGHT SPOKE WITH DR EDWARD/LEFT MESSAGE FOR OR BOOKING OFFICE (3120) PATIENT AGREES TO PROCEDURE DR. EDWARD WILL OBTAIN CONSENT Debra PUENTSE MD Problem List - Problems (1) Hemoptysis Code(s): R04.2 - HEMOPTYSIS (2) ASHD (arteriosclerotic heart disease) Code(s): I25.10 - ATHSCL HEART DISEASE OF [place] CORONARY ARTERY W/O ANG PCTRS (3) Anemia Code(s): D64.9 - ANEMIA, UNSPECIFIED (4) COPD (chronic obstructive pulmonary disease) Code(s): J44.9 - CHRONIC OBSTRUCTIVE PULMONARY DISEASE, UNSPECIFIED Qualifiers: COPD type: unspecified COPD Qualified Code(s): J44.9 - Chronic obstructive pulmonary disease, unspecified (5) Diabetes Code(s): E11.9 - TYPE 2 DIABETES MELLITUS WITHOUT COMPLICATIONS Qualifiers: Diabetes mellitus type: type 2 Diabetes mellitus skilled nursing insulin use: without skilled nursing use Diabetes mellitus complication status: with neurologic complications (6) ESRD (end stage renal disease) Code(s): N18.6 - END STAGE RENAL DISEASE (7) HTN (hypertension) Code(s): I10 - ESSENTIAL (PRIMARY) HYPERTENSION Qualifiers: Hypertension type: essential hypertension Qualified Code(s): I10 - Essential (primary) hypertension (8) Hepatitis C antibody test positive Code(s): R76.8 - OTHER SPECIFIED ABNORMAL IMMUNOLOGICAL FINDINGS IN SERUM (9) ICD (implantable cardioverter-defibrillator) in place Code(s): Z95.810 - PRESENCE OF AUTOMATIC (IMPLANTABLE) CARDIAC DEFIBRILLATOR (10) Ischemic dilated cardiomyopathy Code(s): I25.5 - ISCHEMIC CARDIOMYOPATHY; I42.0 - DILATED CARDIOMYOPATHY (11) Pleural effusion Code(s): J90 - PLEURAL EFFUSION, NOT ELSEWHERE CLASSIFIED (12) S/P CABG (coronary artery bypass graft) Code(s): Z95.1 - PRESENCE OF AORTOCORONARY BYPASS GRAFT
--- NOTE | 2018-07-15 11:18 | PN ---
Progress Note (short form) - Note Progress Note: Hemoptysis this AM Denies SOB Vital Signs - 24 hr 07/13/18 07/14/18 07/14/18 20:52 04:14 06:00 Temperature 98.3 F 98.6 F 97.4 F L Pulse Rate 83 Pulse Rate [ 70 84 Apical] Respiratory 18 17 18 Rate Blood Pressure 147/70 Blood Pressure 145/71 136/64 [Left Arm] O2 Sat by Pulse 98 97 Oximetry (%) 07/14/18 07/14/18 07/14/18 08:37 09:02 09:21 Temperature 97.7 F 97.7 F Pulse Rate 82 82 Pulse Rate [ Apical] Respiratory 18 18 Rate Blood Pressure 138/67 138/67 Blood Pressure [Left Arm] O2 Sat by Pulse 97 Oximetry (%) 07/14/18 07/14/18 09:25 15:48 Temperature 98.0 F Pulse Rate 84 Pulse Rate [ Apical] Respiratory 18 18 Rate Blood Pressure 122/60 Blood Pressure [Left Arm] O2 Sat by Pulse 97 Oximetry (%) Vital Signs - 24 hr 07/15/18 07/15/18 07/15/18 04:00 05:59 11:00 Temperature 98.1 F 98 F Pulse Rate 83 89 Respiratory 20 20 Rate Blood Pressure 135/63 142/69 O2 Sat by Pulse 97 Oximetry (%) 07/15/18 07/15/18 07/15/18 12:00 15:00 21:13 Temperature 97.6 F Pulse Rate 85 82 Respiratory 20 20 Rate Blood Pressure 133/86 144/60 O2 Sat by Pulse 97 Oximetry (%) Laboratory Results - last 24 hr 07/15/18 07/15/18 07/15/18 06:00 06:00 07:17 WBC 6.1 RBC 3.68 L Hgb 10.4 L Hct 32.3 L MCV 87.7 MCH 28.3 MCHC 32.3 RDW 18.0 H Plt Count 211 MPV 8.4 Sodium 138 Potassium 3.9 Chloride 99 Carbon Dioxide 32 Anion Gap 8 BUN 21 H Creatinine 4.4 H Creat Clearance w eGFR 13.29 POC Glucometer 110 Random Glucose 110 H Calcium 8.4 L 07/15/18 07/15/18 18:35 21:01 WBC RBC Hgb Hct MCV MCH MCHC RDW Plt Count MPV Sodium Potassium Chloride Carbon Dioxide Anion Gap BUN Creatinine Creat Clearance w eGFR POC Glucometer 206 249 Random Glucose Calcium Lungs decreased Abd- soft ,NT No edema PLAN sputum AFB sent on isolation empiric antibiotics PPD was negative in the [place] Bronchoscopy as per Pulmonary Problem List - Problems (1) Hemoptysis Code(s): R04.2 - HEMOPTYSIS (2) ASHD (arteriosclerotic heart disease) Code(s): I25.10 - ATHSCL HEART DISEASE OF [place] CORONARY ARTERY W/O ANG PCTRS (3) Chronic HFrEF (heart failure with reduced ejection fraction) Code(s): I50.22 - CHRONIC SYSTOLIC (CONGESTIVE) HEART FAILURE (4) ESRD (end stage renal disease) on dialysis Code(s): N18.6 - END STAGE RENAL DISEASE; Z99.2 - DEPENDENCE ON RENAL DIALYSIS
[2018-07-15] MEDS: PANTOPRAZOLE 40 MG TABLET (FP) PO SCH (12:03)
[2018-07-15] MEDS: CHOLECALCIFEROL (VITAMIN D3) 1,000 UNIT TABLET (FP) PO SCH (12:03)
[2018-07-15] MEDS: METOPROLOL SUCCINATE 100 MG, METOPROLOL SUCCINATE 50 MG PO SCH (12:09)
[2018-07-15] MEDS: CLOPIDOGREL BISULFATE 75 MG TABLET (FP) PO SCH (12:09)
[2018-07-15] MEDS: SACUBITRIL/VALSARTAN 49 MG-51 MG TABLET PO SCH ×2 (12:11→22:35)
[2018-07-15] MEDS: VITAMIN B COMP W-C 1 EA TABLET PO SCH (12:14)
--- NOTE | 2018-07-15 16:27 | PN ---
Progress Note, Physician History of Present Illness: Pt seen and examined at bedside. He is awake and appears comfortable. He still complains of hemoptysis. - Current Medication List Current Medications: Active Medications Acetaminophen (Tylenol -) 650 mg PO Q6H PRN PRN Reason: PAIN Last Admin: 07/14/18 04:10 Dose: 650 mg Acetaminophen (Tylenol -) 325 mg PO Q12H [facility] Last Admin: 07/15/18 07:20 Dose: 325 mg Albuterol Sulfate (Ventolin 0.083% Nebulizer Soln -) 1 amp NEB Q8H PRN PRN Reason: Dyspnea Atorvastatin Calcium (Lipitor -) 80 mg PO HS [facility] Last Admin: 07/14/18 23:12 Dose: 80 mg Calcium Acetate (Phoslo -) 667 mg PO TIDCM [facility] Last Admin: 07/15/18 12:14 Dose: 667 mg Cefazolin Sodium/Dextrose (Ancef 2 Gm Premixed Ivpb -) 2 gm IVPB TuTh@1700 [facility] Cholecalciferol (Vitamin D3 -) 1,000 unit PO DAILY [facility] Last Admin: 07/15/18 12:03 Dose: 1,000 unit Clopidogrel Bisulfate (Plavix -) 75 mg PO DAILY [facility] Last Admin: 07/15/18 12:09 Dose: 75 mg Sodium Chloride (Normal Saline -) 250 mls @ 3,000 mls/hr IV PRN PRN PRN Reason: Hypotension during Dialysis Stop: 07/15/18 17:06 Cefazolin Sodium 3 gm/ (Dextrose) 100 mls @ 200 mls/hr IVPB Sa@1000 [facility] Last Admin: 07/14/18 22:52 Dose: 200 mls/hr Insulin Aspart (Novolog Vial Sliding Scale -) 1 vial SQ [facility]; Protocol Last Admin: 07/15/18 15:35 Dose: Not Given Insulin Detemir (Levemir Vial) 16 units SQ [facility] Last Admin: 07/14/18 23:14 Dose: 16 units Levothyroxine Sodium (Synthroid -) 25 mcg PO DAILY@0700 [facility] Last Admin: 07/15/18 07:20 Dose: 25 mcg Melatonin (Melatonin) 3 mg PO [facility] Last Admin: 07/14/18 23:12 Dose: 3 mg Metoprolol Succinate 100 mg/ (Metoprolol Succinate 50 mg) 150 mg PO DAILY [facility] Last Admin: 07/15/18 12:09 Dose: 150 mg Multivit/Ca Carb/B Cmplx/FA/Prenat (Nephro-Misty -) 1 tablet PO DAILY [facility] Last Admin: 07/15/18 12:14 Dose: 1 tablet Non-Formulary Medication (Vit A/Vitamin D3/E/Aloe V/Zinc [Periguard Ointment]) 5 gm TP TID [facility] Oxycodone HCl (Roxicodone -) 10 mg PO Q12H [facility] Last Admin: 07/15/18 07:19 Dose: 10 mg Pantoprazole Sodium (Protonix -) 40 mg PO DAILY [facility] Last Admin: 07/15/18 12:03 Dose: 40 mg Sacubitril/Valsartan (Entresto 49 Mg-51 Mg Tablet) 1 tab PO BID [facility] Last Admin: 07/15/18 12:11 Dose: 1 tab Senna (Senna -) 1 tab PO [facility] Last Admin: 07/14/18 23:12 Dose: 1 tab Sertraline HCl (Zoloft -) 50 mg PO [facility] Last Admin: 07/14/18 23:12 Dose: 50 mg - Objective Vital Signs: Vital Signs Temperature 98.1 F 07/15/18 05:59 Pulse Rate 83 07/15/18 05:59 Respiratory Rate 20 07/15/18 05:59 Blood Pressure 135/63 07/15/18 05:59 O2 Sat by Pulse Oximetry (%) 97 07/15/18 04:00 Constitutional: Yes: Calm Eyes: Yes: Conjunctiva Clear HENT: Yes: Atraumatic Neck: Yes: Supple Cardiovascular: Yes: S1, S2 Respiratory: Yes: CTA Bilaterally Gastrointestinal: Yes: Soft Genitourinary: Yes: WNL Musculoskeletal: Yes: WNL Edema: No Neurological: Yes: Oriented Psychiatric: Yes: Oriented Labs: CBC, BMP 07/15/18 06:00 07/15/18 06:00 INR, PTT INR 0.99 (0.83-1.09) 07/13/18 18:19 Problem List - Problems (1) Hemoptysis Code(s): R04.2 - HEMOPTYSIS (2) ESRD (end stage renal disease) Code(s): N18.6 - END STAGE RENAL DISEASE Assessment/Plan Current Medications Generic Name Dose Route Start Last Admin Trade Name Freq PRN Reason Stop Dose Admin Acetaminophen 650 mg 07/14/18 01:25 07/14/18 04:10 Tylenol - PO 650 mg Q6H PRN Administration PAIN Acetaminophen 325 mg 07/14/18 07:00 07/15/18 07:20 Tylenol - PO 325 mg Q12H [facility] Administration Albuterol Sulfate 1 amp 07/14/18 01:25 Ventolin 0.083% Nebulizer Soln - NEB Q8H PRN Dyspnea Atorvastatin Calcium 80 mg 07/14/18 22:00 07/14/18 23:12 Lipitor - PO 80 mg HS [facility] Administration Calcium Acetate 667 mg 07/14/18 08:00 07/15/18 12:14 Phoslo - PO 667 mg TIDCM [facility] Administration Cefazolin Sodium/Dextrose 2 gm 07/17/18 17:00 Ancef 2 Gm Premixed Ivpb - IVPB TuTh@1700 [facility] Cholecalciferol 1,000 unit 07/14/18 10:00 07/15/18 12:03 Vitamin D3 - PO 1,000 unit DAILY [facility] Administration Clopidogrel Bisulfate 75 mg 07/14/18 10:00 07/15/18 12:09 Plavix - PO 75 mg DAILY [facility] Administration Sodium Chloride 250 mls @ 3,000 mls/hr 07/14/18 17:07 Normal Saline - IV 07/15/18 17:06 PRN PRN Hypotension during Dialysis Cefazolin Sodium 3 gm/ 100 mls @ 200 mls/hr 07/14/18 20:15 07/14/18 22:52 Dextrose IVPB 200 mls/hr Sa@1000 [facility] Administration Insulin Aspart 1 vial 07/14/18 07:00 07/15/18 15:35 Novolog Vial Sliding Scale - SQ Not Given ACHS [facility] Protocol Insulin Detemir 16 units 07/14/18 22:00 07/14/18 23:14 Levemir Vial SQ 16 units HS [facility] Administration Levothyroxine Sodium 25 mcg 07/14/18 07:00 07/15/18 07:20 Synthroid - PO 25 mcg DAILY@0700 [facility] Administration Melatonin 3 mg 07/14/18 22:00 07/14/18 23:12 Melatonin PO 3 mg HS [facility] Administration Metoprolol Succinate 100 mg/ 150 mg 07/14/18 10:00 07/15/18 12:09 Metoprolol Succinate 50 mg PO 150 mg DAILY [facility] Administration Multivit/Ca Carb/B Cmplx/FA/Prenat 1 tablet 07/14/18 10:00 07/15/18 12:14 Nephro-Misty - PO 1 tablet DAILY [facility] Administration Non-Formulary Medication 5 gm 07/14/18 06:00 Vit A/Vitamin D3/E/Aloe V/Zinc [Periguard Ointment] TP TID [facility] Oxycodone HCl 10 mg 07/14/18 07:00 07/15/18 07:19 Roxicodone - PO 10 mg Q12H [facility] Administration Pantoprazole Sodium 40 mg 07/14/18 10:00 07/15/18 12:03 Protonix - PO 40 mg DAILY [facility] Administration Sacubitril/Valsartan 1 tab 07/14/18 10:00 07/15/18 12:11 Entresto 49 Mg-51 Mg Tablet PO 1 tab BID [facility] Administration Senna 1 tab 07/14/18 22:00 07/14/18 23:12 Senna - PO 1 tab HS [facility] Administration Sertraline HCl 50 mg 07/14/18 22:00 07/14/18 23:12 Zoloft - PO 50 mg HS [facility] Administration Impression 1. ESRD 2. hemoptysis 3. DM 4. CAD 5. PVD 6. DFU 7. anemia 8. hx steal syndrome s/p DRIL procedure 9. CHF 10. pulmonary nodules Plan - next HD on Monday - pulm follow up - check anca and gbm - monitor bp - epogen for anemia - renal diet
[2018-07-15] MEDS ORDERED: BISACODYL 10 MG SUPP.RECT RC ONE (20:00)
[2018-07-15] MEDS: SERTRALINE HCL 50 MG TABLET (FP) PO SCH (22:34)
[2018-07-15] MEDS: SENNOSIDES 8.6MG TABLET (FP) PO SCH (22:34)
[2018-07-15] MEDS: ATORVASTATIN CA 80 MG TABLET (FP) PO SCH (22:34)
[2018-07-15] MEDS: MELATONIN 1 MG TABLET PO SCH (22:34)
[2018-07-15] MEDS: INSULIN (LEVEMIR) 100 UNITS/ML UNITS SQ SCH (22:36)
[2018-07-15] MEDS: ACETAMINOPHEN 325 MG TABLET (FP) PO PRN (22:50)
[2018-07-16] MEDS: ACETAMINOPHEN 325 MG TABLET (FP) PO PRN (04:08)
[2018-07-16] MEDS: oxyCODONE HCL 5 MG TABLET PO SCH ×2 (06:48→18:03)
[2018-07-16] MEDS: INSULIN SLIDING SCALE (NOVOLOG) 1 VIAL SQ SCH ×4 (06:48→21:52)
[2018-07-16] MEDS: ACETAMINOPHEN 325 MG TABLET (FP) PO SCH ×2 (06:49→18:03)
[2018-07-16] MEDS: LEVOTHYROXINE NA 25 MCG TABLET (FP) PO SCH (06:51)
[2018-07-16] MEDS: CALCIUM ACETATE 667 MG CAPSULE (FP) PO SCH ×3 (09:20→18:03)
[2018-07-16] MEDS ORDERED: SODIUM CHLORIDE 250 ML IV PRN (09:46)
--- NOTE | 2018-07-16 11:24 | PN ---
Progress Note (short form) - Note Progress Note: PULMONARY No hemoptysis today but pt reports 4 episodes yesterday. Last dose plavix yesterday. Vital Signs Period Temp Pulse Resp BP Sys/Lopez Pulse Ox Last 24 Hr 97.6 F-98.4 F 82-85 20-20 125-144/51-86 97-97 Gen: NAD at rest Heart: RRR Lung: bibasilar rales Abd: soft, nontender Ext: no edema CBC, BMP 07/15/18 06:00 07/15/18 06:00 Active Medications Acetaminophen (Tylenol -) 650 mg PO Q6H PRN PRN Reason: PAIN Last Admin: 07/16/18 04:08 Dose: 650 mg Acetaminophen (Tylenol -) 325 mg PO Q12H [facility] Last Admin: 07/16/18 06:49 Dose: 325 mg Albuterol Sulfate (Ventolin 0.083% Nebulizer Soln -) 1 amp NEB Q8H PRN PRN Reason: Dyspnea Atorvastatin Calcium (Lipitor -) 80 mg PO [facility] Last Admin: 07/15/18 22:34 Dose: 80 mg Calcium Acetate (Phoslo -) 667 mg PO TIDCM [facility] Last Admin: 07/16/18 09:20 Dose: Not Given Cefazolin Sodium/Dextrose (Ancef 2 Gm Premixed Ivpb -) 2 gm IVPB TuTh@1700 [facility] Cholecalciferol (Vitamin D3 -) 1,000 unit PO DAILY [facility] Last Admin: 07/15/18 12:03 Dose: 1,000 unit Cefazolin Sodium 3 gm/ (Dextrose) 100 mls @ 200 mls/hr IVPB Sa@1000 [facility] Last Admin: 07/14/18 22:52 Dose: 200 mls/hr Insulin Aspart (Novolog Vial Sliding Scale -) 1 vial SQ [facility]; Protocol Last Admin: 07/16/18 06:48 Dose: Not Given Insulin Detemir (Levemir Vial) 16 units SQ [facility] Last Admin: 07/15/18 22:36 Dose: Not Given Levothyroxine Sodium (Synthroid -) 25 mcg PO DAILY@0700 [facility] Last Admin: 07/16/18 06:51 Dose: Not Given Melatonin (Melatonin) 3 mg PO [facility] Last Admin: 07/15/18 22:34 Dose: 3 mg Metoprolol Succinate 100 mg/ (Metoprolol Succinate 50 mg) 150 mg PO DAILY [facility] Last Admin: 07/15/18 12:09 Dose: 150 mg Multivit/Ca Carb/B Cmplx/FA/Prenat (Nephro-Misty -) 1 tablet PO DAILY [facility] Last Admin: 07/15/18 12:14 Dose: 1 tablet Oxycodone HCl (Roxicodone -) 10 mg PO Q12H [facility] Last Admin: 07/16/18 06:48 Dose: 10 mg Pantoprazole Sodium (Protonix -) 40 mg PO DAILY [facility] Last Admin: 07/15/18 12:03 Dose: 40 mg Sacubitril/Valsartan (Entresto 49 Mg-51 Mg Tablet) 1 tab PO BID [facility] Last Admin: 07/15/18 22:35 Dose: 1 tab Senna (Senna -) 1 tab PO HS [facility] Last Admin: 07/15/18 22:34 Dose: 1 tab Sertraline HCl (Zoloft -) 50 mg PO HS [facility] Last Admin: 07/15/18 22:34 Dose: 50 mg A/P Hemoptysis ESRD on HD CAD LV Systolic Dysfunction DM PAD Lung Nodules - scheduled inspection bronchoscopy for 07/19 11AM - hold plavix for possible biopsy - monitor/quantify hemoptysis - HD per renal - will need outpt f/u of lung nodules - DVT prophylaxis
[2018-07-16] MEDS: VITAMIN B COMP W-C 1 EA TABLET PO SCH (11:40)
[2018-07-16] MEDS: METOPROLOL SUCCINATE 100 MG, METOPROLOL SUCCINATE 50 MG PO SCH (11:40)
[2018-07-16] MEDS: PANTOPRAZOLE 40 MG TABLET (FP) PO SCH (11:40)
[2018-07-16] MEDS: CHOLECALCIFEROL (VITAMIN D3) 1,000 UNIT TABLET (FP) PO SCH (11:41)
[2018-07-16] MEDS: SACUBITRIL/VALSARTAN 49 MG-51 MG TABLET PO SCH ×2 (11:41→21:51)
[2018-07-16] MEDS: PATIENT'S OWN MEDICATION (NON-FORMULARY) (Vit A/Vitamin D3/E/Aloe V/Zinc [Periguard Ointme TP SCH ×4 (11:42→11:50)
[2018-07-16] MEDS: CLOPIDOGREL BISULFATE 75 MG TABLET (FP) PO SCH (11:46)
--- NOTE | 2018-07-16 13:18 | PN ---
Progress Note, Physician History of Present Illness: Pt seen and examined at bedside. He had several episodes of hemoptysis last night. - Current Medication List Current Medications: Active Medications Acetaminophen (Tylenol -) 650 mg PO Q6H PRN PRN Reason: PAIN Last Admin: 07/16/18 04:08 Dose: 650 mg Acetaminophen (Tylenol -) 325 mg PO Q12H [facility] Last Admin: 07/16/18 06:49 Dose: 325 mg Albuterol Sulfate (Ventolin 0.083% Nebulizer Soln -) 1 amp NEB Q8H PRN PRN Reason: Dyspnea Atorvastatin Calcium (Lipitor -) 80 mg PO [facility] Last Admin: 07/15/18 22:34 Dose: 80 mg Calcium Acetate (Phoslo -) 667 mg PO TIDCM [facility] Last Admin: 07/16/18 11:41 Dose: 667 mg Cefazolin Sodium/Dextrose (Ancef 2 Gm Premixed Ivpb -) 2 gm IVPB TuTh@1700 [facility] Cholecalciferol (Vitamin D3 -) 1,000 unit PO DAILY [facility] Last Admin: 07/16/18 11:41 Dose: 1,000 unit Cefazolin Sodium 3 gm/ (Dextrose) 100 mls @ 200 mls/hr IVPB Sa@1000 [facility] Last Admin: 07/14/18 22:52 Dose: 200 mls/hr Insulin Aspart (Novolog Vial Sliding Scale -) 1 vial SQ [facility]; Protocol Last Admin: 07/16/18 06:48 Dose: Not Given Insulin Detemir (Levemir Vial) 16 units SQ [facility] Last Admin: 07/15/18 22:36 Dose: Not Given Levothyroxine Sodium (Synthroid -) 25 mcg PO DAILY@0700 [facility] Last Admin: 07/16/18 06:51 Dose: Not Given Melatonin (Melatonin) 3 mg PO [facility] Last Admin: 07/15/18 22:34 Dose: 3 mg Metoprolol Succinate 100 mg/ (Metoprolol Succinate 50 mg) 150 mg PO DAILY [facility] Last Admin: 07/16/18 11:40 Dose: 150 mg Multivit/Ca Carb/B Cmplx/FA/Prenat (Nephro-Misty -) 1 tablet PO DAILY [facility] Last Admin: 07/16/18 11:40 Dose: 1 tablet Oxycodone HCl (Roxicodone -) 10 mg PO Q12H [facility] Last Admin: 07/16/18 06:48 Dose: 10 mg Pantoprazole Sodium (Protonix -) 40 mg PO DAILY [facility] Last Admin: 07/16/18 11:40 Dose: 40 mg Sacubitril/Valsartan (Entresto 49 Mg-51 Mg Tablet) 1 tab PO BID [facility] Last Admin: 07/16/18 11:41 Dose: 1 tab Senna (Senna -) 1 tab PO HS [facility] Last Admin: 07/15/18 22:34 Dose: 1 tab Sertraline HCl (Zoloft -) 50 mg PO HS [facility] Last Admin: 07/15/18 22:34 Dose: 50 mg - Objective Vital Signs: Vital Signs Temperature 98.4 F 07/16/18 06:50 Pulse Rate 84 07/16/18 06:50 Respiratory Rate 20 07/16/18 06:50 Blood Pressure 135/66 07/16/18 06:50 O2 Sat by Pulse Oximetry (%) 97 07/16/18 04:00 Constitutional: Yes: Calm Eyes: Yes: Conjunctiva Clear HENT: Yes: Atraumatic Cardiovascular: Yes: S1, S2 Respiratory: Yes: CTA Bilaterally Genitourinary: Yes: WNL Musculoskeletal: Yes: WNL Edema: No Neurological: Yes: Oriented Psychiatric: Yes: Oriented Labs: CBC, BMP 07/15/18 06:00 07/15/18 06:00 INR, PTT INR 0.99 (0.83-1.09) 07/13/18 18:19 Problem List - Problems (1) Hemoptysis Code(s): R04.2 - HEMOPTYSIS (2) ESRD (end stage renal disease) Code(s): N18.6 - END STAGE RENAL DISEASE Assessment/Plan Current Medications Generic Name Dose Route Start Last Admin Trade Name Freq PRN Reason Stop Dose Admin Acetaminophen 650 mg 07/14/18 01:25 07/16/18 04:08 Tylenol - PO 650 mg Q6H PRN Administration PAIN Acetaminophen 325 mg 07/14/18 07:00 07/16/18 06:49 Tylenol - PO 325 mg Q12H [facility] Administration Albuterol Sulfate 1 amp 07/14/18 01:25 Ventolin 0.083% Nebulizer Soln - NEB Q8H PRN Dyspnea Atorvastatin Calcium 80 mg 07/14/18 22:00 07/15/18 22:34 Lipitor - PO 80 mg HS [facility] Administration Calcium Acetate 667 mg 07/14/18 08:00 07/16/18 11:41 Phoslo - PO 667 mg TIDCM [facility] Administration Cefazolin Sodium/Dextrose 2 gm 07/17/18 17:00 Ancef 2 Gm Premixed Ivpb - IVPB TuTh@1700 [facility] Cholecalciferol 1,000 unit 07/14/18 10:00 07/16/18 11:41 Vitamin D3 - PO 1,000 unit DAILY [facility] Administration Cefazolin Sodium 3 gm/ 100 mls @ 200 mls/hr 07/14/18 20:15 07/14/18 22:52 Dextrose IVPB 200 mls/hr Sa@1000 [facility] Administration Insulin Aspart 1 vial 07/14/18 07:00 07/16/18 06:48 Novolog Vial Sliding Scale - SQ Not Given ACHS [facility] Protocol Insulin Detemir 16 units 07/14/18 22:00 07/15/18 22:36 Levemir Vial SQ Not Given HS [facility] Levothyroxine Sodium 25 mcg 07/14/18 07:00 07/16/18 06:51 Synthroid - PO Not Given DAILY@0700 [facility] Melatonin 3 mg 07/14/18 22:00 07/15/18 22:34 Melatonin PO 3 mg HS [facility] Administration Metoprolol Succinate 100 mg/ 150 mg 07/14/18 10:00 07/16/18 11:40 Metoprolol Succinate 50 mg PO 150 mg DAILY [facility] Administration Multivit/Ca Carb/B Cmplx/FA/Prenat 1 tablet 07/14/18 10:00 07/16/18 11:40 Nephro-Misty - PO 1 tablet DAILY [facility] Administration Oxycodone HCl 10 mg 07/14/18 07:00 07/16/18 06:48 Roxicodone - PO 10 mg Q12H [facility] Administration Pantoprazole Sodium 40 mg 07/14/18 10:00 07/16/18 11:40 Protonix - PO 40 mg DAILY [facility] Administration Sacubitril/Valsartan 1 tab 07/14/18 10:00 07/16/18 11:41 Entresto 49 Mg-51 Mg Tablet PO 1 tab BID [facility] Administration Senna 1 tab 07/14/18 22:00 10/07/18 22:34 Senna - PO 1 tab HS [facility] Administration Sertraline HCl 50 mg 07/14/18 22:00 07/15/18 22:34 Zoloft - PO 50 mg HS [facility] Administration Laboratory Tests 07/15/18 16:35 c-ANCA Pending Proteinase 3 (PR3) Pending p-ANCA Pending Atypical p-ANCA Pending Myeloperoxidase Ab Pending Glomerular Base Memb Ab Pending Impression 1. ESRD 2. hemoptysis 3. DM 4. CAD 5. PVD 6. DFU 7. anemia 8. hx steal syndrome s/p DRIL procedure 9. CHF 10. pulmonary nodules Plan - HD in am - bronch on 07/19 - pulm input appreciated - monitor bp - epogen for anemia - renal diet
--- NOTE | 2018-07-16 20:05 | PN ---
Progress Note (short form) - Note Progress Note: Hemoptysis - none today , but he had a good amount yesterday Denies SOB Vital Signs - 24 hr 07/15/18 07/15/18 07/16/18 21:13 22:45 04:00 Temperature 97.6 F 98.4 F Pulse Rate 82 84 Respiratory 20 20 20 Rate Blood Pressure 144/60 125/51 L O2 Sat by Pulse 97 Oximetry (%) 07/16/18 07/16/18 07/16/18 06:50 12:00 16:06 Temperature 98.4 F 98.7 F Pulse Rate 84 83 Respiratory 20 20 20 Rate Blood Pressure 135/66 140/55 L O2 Sat by Pulse 97 Oximetry (%) 07/16/18 18:13 Temperature 98.5 F Pulse Rate 86 Respiratory 20 Rate Blood Pressure 133/63 O2 Sat by Pulse Oximetry (%) Current Medications Generic Name Dose Route Start Last Admin Trade Name Freq PRN Reason Stop Dose Admin Acetaminophen 650 mg 07/14/18 01:25 07/16/18 04:08 Tylenol - PO 650 mg Q6H PRN Administration PAIN Acetaminophen 325 mg 07/14/18 07:00 07/16/18 18:03 Tylenol - PO 325 mg Q12H [facility] Administration Albuterol Sulfate 1 amp 07/14/18 01:25 Ventolin 0.083% Nebulizer Soln - NEB Q8H PRN Dyspnea Atorvastatin Calcium 80 mg 07/14/18 22:00 07/15/18 22:34 Lipitor - PO 80 mg HS [facility] Administration Calcium Acetate 667 mg 07/14/18 08:00 07/16/18 18:03 Phoslo - PO 667 mg TIDCM [facility] Administration Cefazolin Sodium/Dextrose 2 gm 07/17/18 17:00 Ancef 2 Gm Premixed Ivpb - IVPB TuTh@1700 [facility] Cholecalciferol 1,000 unit 07/14/18 10:00 07/16/18 11:41 Vitamin D3 - PO 1,000 unit DAILY [facility] Administration Epoetin Parmjit 5,000 unit 07/17/18 13:18 Epogen - IVPUSH 07/17/18 13:19 ONCE ONE Cefazolin Sodium 3 gm/ 100 mls @ 200 mls/hr 07/14/18 20:15 07/14/18 22:52 Dextrose IVPB 200 mls/hr Sa@1000 [facility] Administration Sodium Chloride 250 mls @ 3,000 mls/hr 07/16/18 13:18 Normal Saline - IV 07/17/18 13:18 PRN PRN Hypotension during Dialysis Insulin Aspart 1 vial 07/14/18 07:00 07/16/18 18:03 Novolog Vial Sliding Scale - SQ 3 units ACHS [facility] Administration Protocol Insulin Detemir 16 units 07/14/18 22:00 07/15/18 22:36 Levemir Vial SQ Not Given HS [facility] Levothyroxine Sodium 25 mcg 07/14/18 07:00 07/16/18 06:51 Synthroid - PO Not Given DAILY@0700 [facility] Melatonin 3 mg 07/14/18 22:00 07/15/18 22:34 Melatonin PO 3 mg HS [facility] Administration Metoprolol Succinate 100 mg/ 150 mg 07/14/18 10:00 07/16/18 11:40 Metoprolol Succinate 50 mg PO 150 mg DAILY [facility] Administration Multivit/Ca Carb/B Cmplx/FA/Prenat 1 tablet 07/14/18 10:00 07/16/18 11:40 Nephro-Misty - PO 1 tablet DAILY [facility] Administration Oxycodone HCl 10 mg 07/14/18 07:00 07/16/18 18:03 Roxicodone - PO 10 mg Q12H [facility] Administration Pantoprazole Sodium 40 mg 07/14/18 10:00 07/16/18 11:40 Protonix - PO 40 mg DAILY [facility] Administration Sacubitril/Valsartan 1 tab 07/14/18 10:00 07/16/18 11:41 Entresto 49 Mg-51 Mg Tablet PO 1 tab BID [facility] Administration Senna 1 tab 07/14/18 22:00 07/15/18 22:34 Senna - PO 1 tab HS [facility] Administration Sertraline HCl 50 mg 07/14/18 22:00 07/15/18 22:34 Zoloft - PO 50 mg HS [facility] Administration Laboratory Results - last 24 hr 07/15/18 07/16/18 07/16/18 21:01 06:47 17:19 POC Glucometer 249 178 247 S1S2 RRR Lungs decreased Abd- soft ,NT No edema PLAN sputum AFB- prelim negative on isolation spoke with Vascular- ok to hold PLavix for 4 days empiric antibiotics PPD was negative in the [place] Bronchoscopy as per Pulmonary - after 4 days-- may need biopsy Problem List - Problems (1) Hemoptysis Code(s): R04.2 - HEMOPTYSIS (2) ASHD (arteriosclerotic heart disease) Code(s): I25.10 - ATHSCL HEART DISEASE OF [place] CORONARY ARTERY W/O ANG PCTRS (3) Chronic HFrEF (heart failure with reduced ejection fraction) Code(s): I50.22 - CHRONIC SYSTOLIC (CONGESTIVE) HEART FAILURE (4) ESRD (end stage renal disease) on dialysis Code(s): N18.6 - END STAGE RENAL DISEASE; Z99.2 - DEPENDENCE ON RENAL DIALYSIS
[2018-07-16] MEDS ORDERED: PT OWN MED DRAWER 7, Y5N ONE (21:39)
[2018-07-16] MEDS: INSULIN (LEVEMIR) 100 UNITS/ML UNITS SQ SCH (21:51)
[2018-07-16] MEDS: MELATONIN 1 MG TABLET PO SCH (21:53)
[2018-07-16] MEDS: SERTRALINE HCL 50 MG TABLET (FP) PO SCH (21:54)
[2018-07-16] MEDS: ATORVASTATIN CA 80 MG TABLET (FP) PO SCH (21:54)
[2018-07-16] MEDS: SENNOSIDES 8.6MG TABLET (FP) PO SCH (21:54)
[2018-07-17] MEDS: oxyCODONE HCL 5 MG TABLET PO SCH ×2 (06:31→18:57)
[2018-07-17] MEDS: LEVOTHYROXINE NA 25 MCG TABLET (FP) PO SCH (06:31)
[2018-07-17] MEDS: INSULIN SLIDING SCALE (NOVOLOG) 1 VIAL SQ SCH ×4 (06:32→21:34)
[2018-07-17] MEDS: ACETAMINOPHEN 325 MG TABLET (FP) PO SCH ×2 (06:32→20:18)
[2018-07-17] MEDS: CALCIUM ACETATE 667 MG CAPSULE (FP) PO SCH ×3 (08:59→17:52)
[2018-07-17] MEDS ORDERED: ceFAZolin 2 GRAM PREMIX BAG IVPB SCH (10:00)
[2018-07-17] MEDS ORDERED: EPOETIN ALFA 3,000 UNIT/1 ML ML IVPUSH ONE (10:30)
--- NOTE | 2018-07-17 11:21 | PN ---
Progress Note (short form) - Note Progress Note: PULMONARY Still with hemoptysis, about teaspoon each time, dark and thick. Vital Signs Period Temp Pulse Resp BP Sys/Lopez Pulse Ox Last 24 Hr 97.6 F-98.4 F 82-85 20-20 125-144/51-86 97-97 Gen: NAD at rest Heart: RRR Lung: bibasilar rales Abd: soft, nontender Ext: no edema CBC, BMP 07/15/18 06:00 07/15/18 06:00 Active Medications Acetaminophen (Tylenol -) 650 mg PO Q6H PRN PRN Reason: PAIN Last Admin: 07/16/18 04:08 Dose: 650 mg Acetaminophen (Tylenol -) 325 mg PO Q12H [facility] Last Admin: 07/17/18 06:32 Dose: 325 mg Albuterol Sulfate (Ventolin 0.083% Nebulizer Soln -) 1 amp NEB Q8H PRN PRN Reason: Dyspnea Atorvastatin Calcium (Lipitor -) 80 mg PO [facility] Last Admin: 07/16/18 21:54 Dose: 80 mg Calcium Acetate (Phoslo -) 667 mg PO TIDCM [facility] Last Admin: 07/17/18 08:59 Dose: 667 mg Cefazolin Sodium/Dextrose (Ancef 2 Gm Premixed Ivpb -) 2 gm IVPB TuTh@1700 [facility] Cholecalciferol (Vitamin D3 -) 1,000 unit PO DAILY [facility] Last Admin: 07/16/18 11:41 Dose: 1,000 unit Cefazolin Sodium 3 gm/ (Dextrose) 100 mls @ 200 mls/hr IVPB Sa@1000 [facility] Last Admin: 07/14/18 22:52 Dose: 200 mls/hr Insulin Aspart (Novolog Vial Sliding Scale -) 1 vial SQ [facility]; Protocol Last Admin: 07/17/18 06:32 Dose: Not Given Insulin Detemir (Levemir Vial) 16 units SQ [facility] Last Admin: 07/16/18 21:51 Dose: 16 units Levothyroxine Sodium (Synthroid -) 25 mcg PO DAILY@0700 [facility] Last Admin: 07/17/18 06:31 Dose: 25 mcg Melatonin (Melatonin) 3 mg PO [facility] Last Admin: 07/16/18 21:53 Dose: 3 mg Metoprolol Succinate 100 mg/ (Metoprolol Succinate 50 mg) 150 mg PO DAILY [facility] Last Admin: 07/16/18 11:40 Dose: 150 mg Multivit/Ca Carb/B Cmplx/FA/Prenat (Nephro-Misty -) 1 tablet PO DAILY [facility] Last Admin: 07/16/18 11:40 Dose: 1 tablet Oxycodone HCl (Roxicodone -) 10 mg PO Q12H [facility] Last Admin: 07/17/18 06:31 Dose: 10 mg Pantoprazole Sodium (Protonix -) 40 mg PO DAILY [facility] Last Admin: 07/16/18 11:40 Dose: 40 mg Sacubitril/Valsartan (Entresto 49 Mg-51 Mg Tablet) 1 tab PO BID [facility] Last Admin: 07/16/18 21:51 Dose: 1 tab Senna (Senna -) 1 tab PO HS [facility] Last Admin: 07/16/18 21:54 Dose: 1 tab Sertraline HCl (Zoloft -) 50 mg PO HS [facility] Last Admin: 07/16/18 21:54 Dose: 50 mg A/P Hemoptysis ESRD on HD CAD LV Systolic Dysfunction DM PAD Lung Nodules - inspection bronchoscopy scheduled for 07/19 11AM - hold plavix for possible biopsy - monitor/quantify hemoptysis - HD per renal - will need outpt f/u of lung nodules - DVT prophylaxis
--- NOTE | 2018-07-17 12:30 | PN ---
Progress Note (short form) - Note Progress Note: Hemoptysis - still continues to have Vital Signs - 24 hr 07/16/18 07/16/18 07/16/18 16:06 18:13 20:00 Temperature 98.7 F 98.5 F Pulse Rate 83 86 Respiratory 20 20 20 Rate Blood Pressure 140/55 L 133/63 O2 Sat by Pulse 97 Oximetry (%) 07/16/18 07/17/18 07/17/18 21:00 01:55 03:24 Temperature 98.1 F 98.2 F Pulse Rate 82 83 Respiratory 18 20 20 Rate Blood Pressure 136/69 130/69 O2 Sat by Pulse 98 Oximetry (%) 07/17/18 07/17/18 06:00 10:00 Temperature 98.1 F 98.1 F Pulse Rate 84 87 Respiratory 18 18 Rate Blood Pressure 124/69 140/67 O2 Sat by Pulse Oximetry (%) Current Medications Generic Name Dose Route Start Last Admin Trade Name Freq PRN Reason Stop Dose Admin Acetaminophen 650 mg 07/14/18 01:25 07/16/18 04:08 Tylenol - PO 650 mg Q6H PRN Administration PAIN Acetaminophen 325 mg 07/14/18 07:00 07/17/18 06:32 Tylenol - PO 325 mg Q12H [facility] Administration Albuterol Sulfate 1 amp 07/14/18 01:25 Ventolin 0.083% Nebulizer Soln - NEB Q8H PRN Dyspnea Atorvastatin Calcium 80 mg 07/14/18 22:00 07/16/18 21:54 Lipitor - PO 80 mg HS [facility] Administration Calcium Acetate 667 mg 07/14/18 08:00 07/17/18 08:59 Phoslo - PO 667 mg TIDCM [facility] Administration Cefazolin Sodium/Dextrose 2 gm 07/17/18 17:00 Ancef 2 Gm Premixed Ivpb - IVPB TuTh@1700 [facility] Cholecalciferol 1,000 unit 07/14/18 10:00 07/16/18 11:41 Vitamin D3 - PO 1,000 unit DAILY [facility] Administration Cefazolin Sodium 3 gm/ 100 mls @ 200 mls/hr 07/14/18 20:15 07/14/18 22:52 Dextrose IVPB 200 mls/hr Sa@1000 [facility] Administration Insulin Aspart 1 vial 07/14/18 07:00 07/17/18 11:38 Novolog Vial Sliding Scale - SQ 2 units ACHS [facility] Administration Protocol Insulin Detemir 16 units 07/14/18 22:00 07/16/18 21:51 Levemir Vial SQ 16 units HS [facility] Administration Levothyroxine Sodium 25 mcg 07/14/18 07:00 07/17/18 06:31 Synthroid - PO 25 mcg DAILY@0700 [facility] Administration Melatonin 3 mg 07/14/18 22:00 07/16/18 21:53 Melatonin PO 3 mg HS [facility] Administration Metoprolol Succinate 100 mg/ 150 mg 07/14/18 10:00 07/16/18 11:40 Metoprolol Succinate 50 mg PO 150 mg DAILY [facility] Administration Multivit/Ca Carb/B Cmplx/FA/Prenat 1 tablet 07/14/18 10:00 07/16/18 11:40 Nephro-Misty - PO 1 tablet DAILY [facility] Administration Oxycodone HCl 10 mg 07/14/18 07:00 07/17/18 06:31 Roxicodone - PO 10 mg Q12H [facility] Administration Pantoprazole Sodium 40 mg 07/14/18 10:00 07/16/18 11:40 Protonix - PO 40 mg DAILY [facility] Administration Sacubitril/Valsartan 1 tab 07/14/18 10:00 07/16/18 21:51 Entresto 49 Mg-51 Mg Tablet PO 1 tab BID [facility] Administration Senna 1 tab 07/14/18 22:00 07/16/18 21:54 Senna - PO 1 tab HS [facility] Administration Sertraline HCl 50 mg 07/14/18 22:00 07/16/18 21:54 Zoloft - PO 50 mg HS [facility] Administration Laboratory Results - last 24 hr 07/16/18 07/16/18 07/17/18 17:19 21:49 06:28 POC Glucometer 247 268 69 07/17/18 11:36 POC Glucometer 158 S1S2 RRR Lungs decreased Abd- soft ,NT No edema PLAN sputum AFB- negative quantiferon gold test pending on isolation Plavix on hold empiric antibiotics PPD was negative in the [place] Bronchoscopy as per Pulmonary - - may need biopsy - Problem List - Problems (1) Hemoptysis Code(s): R04.2 - HEMOPTYSIS (2) ASHD (arteriosclerotic heart disease) Code(s): I25.10 - ATHSCL HEART DISEASE OF [place] CORONARY ARTERY W/O ANG PCTRS (3) Chronic HFrEF (heart failure with reduced ejection fraction) Code(s): I50.22 - CHRONIC SYSTOLIC (CONGESTIVE) HEART FAILURE (4) ESRD (end stage renal disease) on dialysis Code(s): N18.6 - END STAGE RENAL DISEASE; Z99.2 - DEPENDENCE ON RENAL DIALYSIS
[2018-07-17] MEDS ORDERED: PT OWN MED DRAWER 7, Y5N ONE ×4 (13:54→21:26)
[2018-07-17] MEDS: VITAMIN B COMP W-C 1 EA TABLET PO SCH (14:23)
[2018-07-17] MEDS: CHOLECALCIFEROL (VITAMIN D3) 1,000 UNIT TABLET (FP) PO SCH (14:23)
[2018-07-17] MEDS: METOPROLOL SUCCINATE 100 MG, METOPROLOL SUCCINATE 50 MG PO SCH (14:23)
[2018-07-17] MEDS: PANTOPRAZOLE 40 MG TABLET (FP) PO SCH (14:23)
[2018-07-17] MEDS: SACUBITRIL/VALSARTAN 49 MG-51 MG TABLET PO SCH ×2 (14:25→21:33)
[2018-07-17] MEDS: ceFAZolin 2 GRAM PREMIX BAG IVPB SCH ×2 (14:27→16:03)
--- NOTE | 2018-07-17 16:23 | PN ---
Progress Note, Physician History of Present Illness: Pt seen and examined at bedside. He is awake and alert. He tolerated HD. - Current Medication List Current Medications: Active Medications Acetaminophen (Tylenol -) 650 mg PO Q6H PRN PRN Reason: PAIN Last Admin: 07/16/18 04:08 Dose: 650 mg Acetaminophen (Tylenol -) 325 mg PO Q12H [facility] Last Admin: 07/17/18 06:32 Dose: 325 mg Albuterol Sulfate (Ventolin 0.083% Nebulizer Soln -) 1 amp NEB Q8H PRN PRN Reason: Dyspnea Atorvastatin Calcium (Lipitor -) 80 mg PO HS [facility] Last Admin: 07/16/18 21:54 Dose: 80 mg Calcium Acetate (Phoslo -) 667 mg PO TIDCM [facility] Last Admin: 07/17/18 14:23 Dose: 667 mg Cefazolin Sodium/Dextrose (Ancef 2 Gm Premixed Ivpb -) 2 gm IVPB TuTh@1700 [facility] Last Admin: 07/17/18 16:03 Dose: Not Given Cholecalciferol (Vitamin D3 -) 1,000 unit PO DAILY [facility] Last Admin: 07/17/18 14:23 Dose: 1,000 unit Cefazolin Sodium 3 gm/ (Dextrose) 100 mls @ 200 mls/hr IVPB Sa@1000 [facility] Last Admin: 07/14/18 22:52 Dose: 200 mls/hr Insulin Aspart (Novolog Vial Sliding Scale -) 1 vial SQ [facility]; Protocol Last Admin: 07/17/18 11:38 Dose: 2 units Insulin Detemir (Levemir Vial) 16 units SQ [facility] Last Admin: 07/16/18 21:51 Dose: 16 units Levothyroxine Sodium (Synthroid -) 25 mcg PO DAILY@0700 [facility] Last Admin: 07/17/18 06:31 Dose: 25 mcg Melatonin (Melatonin) 3 mg PO [facility] Last Admin: 07/16/18 21:53 Dose: 3 mg Metoprolol Succinate 100 mg/ (Metoprolol Succinate 50 mg) 150 mg PO DAILY [facility] Last Admin: 07/17/18 14:23 Dose: 150 mg Multivit/Ca Carb/B Cmplx/FA/Prenat (Nephro-Misty -) 1 tablet PO DAILY [facility] Last Admin: 07/17/18 14:23 Dose: 1 tablet Oxycodone HCl (Roxicodone -) 10 mg PO Q12H [facility] Last Admin: 07/17/18 06:31 Dose: 10 mg Pantoprazole Sodium (Protonix -) 40 mg PO DAILY [facility] Last Admin: 07/17/18 14:23 Dose: 40 mg Sacubitril/Valsartan (Entresto 49 Mg-51 Mg Tablet) 1 tab PO BID [facility] Last Admin: 07/17/18 14:25 Dose: 1 tab Senna (Senna -) 1 tab PO HS [facility] Last Admin: 07/16/18 21:54 Dose: 1 tab Sertraline HCl (Zoloft -) 50 mg PO HS [facility] Last Admin: 07/16/18 21:54 Dose: 50 mg - Objective Vital Signs: Vital Signs Temperature 97.5 F L 07/17/18 15:47 Pulse Rate 68 07/17/18 15:47 Respiratory Rate 18 07/17/18 15:47 Blood Pressure 122/63 07/17/18 15:47 O2 Sat by Pulse Oximetry (%) 98 07/17/18 03:24 Constitutional: Yes: Calm Eyes: Yes: Conjunctiva Clear HENT: Yes: Atraumatic Cardiovascular: Yes: S1, S2 Respiratory: Yes: CTA Bilaterally Gastrointestinal: Yes: Normal Bowel Sounds, Soft Genitourinary: Yes: WNL Musculoskeletal: Yes: WNL Edema: No Neurological: Yes: Oriented Psychiatric: Yes: Oriented Labs: CBC, BMP 07/15/18 06:00 07/15/18 06:00 INR, PTT INR 0.99 (0.83-1.09) 07/13/18 18:19 Problem List - Problems (1) Hemoptysis Code(s): R04.2 - HEMOPTYSIS (2) ESRD (end stage renal disease) Code(s): N18.6 - END STAGE RENAL DISEASE Assessment/Plan Current Medications Generic Name Dose Route Start Last Admin Trade Name Freq PRN Reason Stop Dose Admin Acetaminophen 650 mg 07/14/18 01:25 07/16/18 04:08 Tylenol - PO 650 mg Q6H PRN Administration PAIN Acetaminophen 325 mg 07/14/18 07:00 07/17/18 06:32 Tylenol - PO 325 mg Q12H [facility] Administration Albuterol Sulfate 1 amp 07/14/18 01:25 Ventolin 0.083% Nebulizer Soln - NEB Q8H PRN Dyspnea Atorvastatin Calcium 80 mg 07/14/18 22:00 07/16/18 21:54 Lipitor - PO 80 mg HS [facility] Administration Calcium Acetate 667 mg 07/14/18 08:00 07/17/18 14:23 Phoslo - PO 667 mg TIDCM [facility] Administration Cefazolin Sodium/Dextrose 2 gm 07/17/18 13:30 07/17/18 16:03 Ancef 2 Gm Premixed Ivpb - IVPB Not Given TuTh@1700 [facility] Cholecalciferol 1,000 unit 07/14/18 10:00 07/17/18 14:23 Vitamin D3 - PO 1,000 unit DAILY [facility] Administration Cefazolin Sodium 3 gm/ 100 mls @ 200 mls/hr 07/14/18 20:15 07/14/18 22:52 Dextrose IVPB 200 mls/hr Sa@1000 [facility] Administration Insulin Aspart 1 vial 07/14/18 07:00 07/17/18 11:38 Novolog Vial Sliding Scale - SQ 2 units ACHS [facility] Administration Protocol Insulin Detemir 16 units 07/14/18 22:00 07/16/18 21:51 Levemir Vial SQ 16 units HS [facility] Administration Levothyroxine Sodium 25 mcg 07/14/18 07:00 07/17/18 06:31 Synthroid - PO 25 mcg DAILY@0700 [facility] Administration Melatonin 3 mg 07/14/18 22:00 07/16/18 21:53 Melatonin PO 3 mg HS [facility] Administration Metoprolol Succinate 100 mg/ 150 mg 07/14/18 10:00 07/17/18 14:23 Metoprolol Succinate 50 mg PO 150 mg DAILY [facility] Administration Multivit/Ca Carb/B Cmplx/FA/Prenat 1 tablet 07/14/18 10:00 07/17/18 14:23 Nephro-Misty - PO 1 tablet DAILY [facility] Administration Oxycodone HCl 10 mg 07/14/18 07:00 07/17/18 06:31 Roxicodone - PO 10 mg Q12H [facility] Administration Pantoprazole Sodium 40 mg 07/14/18 10:00 07/17/18 14:23 Protonix - PO 40 mg DAILY [facility] Administration Sacubitril/Valsartan 1 tab 07/14/18 10:00 07/17/18 14:25 Entresto 49 Mg-51 Mg Tablet PO 1 tab BID [facility] Administration Senna 1 tab 07/14/18 22:00 07/16/18 21:54 Senna - PO 1 tab HS [facility] Administration Sertraline HCl 50 mg 07/14/18 22:00 07/16/18 21:54 Zoloft - PO 50 mg HS [facility] Administration Laboratory Tests 07/15/18 16:35 c-ANCA Pending Proteinase 3 (PR3) Pending p-ANCA Pending Atypical p-ANCA Pending Myeloperoxidase Ab Pending Glomerular Base Memb Ab Pending Impression 1. ESRD 2. hemoptysis 3. DM 4. CAD 5. PVD 6. DFU 7. anemia 8. hx steal syndrome s/p DRIL procedure 9. CHF 10. pulmonary nodules Plan - HD today - bronch on 07/19 - monitor bp - epogen for anemia - renal diet - will follow
[2018-07-17] MEDS: ACETAMINOPHEN 325 MG TABLET (FP) PO PRN (18:57)
[2018-07-17] MEDS: SENNOSIDES 8.6MG TABLET (FP) PO SCH (21:32)
[2018-07-17] MEDS: SERTRALINE HCL 50 MG TABLET (FP) PO SCH (21:32)
[2018-07-17] MEDS: ATORVASTATIN CA 80 MG TABLET (FP) PO SCH (21:32)
[2018-07-17] MEDS: INSULIN (LEVEMIR) 100 UNITS/ML UNITS SQ SCH (21:34)
[2018-07-17] MEDS: MELATONIN 1 MG TABLET PO SCH (21:34)
[2018-07-18] MEDS: INSULIN SLIDING SCALE (NOVOLOG) 1 VIAL SQ SCH ×4 (06:27→22:27)
[2018-07-18] MEDS: oxyCODONE HCL 5 MG TABLET PO SCH ×2 (06:29→22:35)
[2018-07-18] MEDS: ACETAMINOPHEN 325 MG TABLET (FP) PO SCH ×2 (06:29→22:35)
[2018-07-18] MEDS: LEVOTHYROXINE NA 25 MCG TABLET (FP) PO SCH (06:29)
[2018-07-18] MEDS ORDERED: PT OWN MED DRAWER 7, Y5N ONE (09:58)
[2018-07-18] MEDS: METOPROLOL SUCCINATE 100 MG, METOPROLOL SUCCINATE 50 MG PO SCH (10:05)
[2018-07-18] MEDS: VITAMIN B COMP W-C 1 EA TABLET PO SCH (10:05)
[2018-07-18] MEDS: CHOLECALCIFEROL (VITAMIN D3) 1,000 UNIT TABLET (FP) PO SCH (10:05)
[2018-07-18] MEDS: PANTOPRAZOLE 40 MG TABLET (FP) PO SCH (10:05)
[2018-07-18] MEDS: CALCIUM ACETATE 667 MG CAPSULE (FP) PO SCH ×3 (10:06→18:02)
[2018-07-18] MEDS: SACUBITRIL/VALSARTAN 49 MG-51 MG TABLET PO SCH ×2 (10:06→22:27)
[2018-07-18 10:12] LABS: ANTIGLOMERULAR BASEMENT MEN.AB 5 units (0-20)
--- NOTE | 2018-07-18 12:56 | PN ---
Progress Note, Physician History of Present Illness: Pt seen and examined at bedside. He still has cough. - Current Medication List Current Medications: Active Medications Acetaminophen (Tylenol -) 650 mg PO Q6H PRN PRN Reason: PAIN Last Admin: 07/17/18 18:57 Dose: 650 mg Acetaminophen (Tylenol -) 325 mg PO Q12H [facility] Last Admin: 07/18/18 06:29 Dose: 325 mg Albuterol Sulfate (Ventolin 0.083% Nebulizer Soln -) 1 amp NEB Q8H PRN PRN Reason: Dyspnea Atorvastatin Calcium (Lipitor -) 80 mg PO HS [facility] Last Admin: 07/17/18 21:32 Dose: 80 mg Calcium Acetate (Phoslo -) 667 mg PO TIDCM [facility] Last Admin: 07/18/18 10:06 Dose: 667 mg Cefazolin Sodium/Dextrose (Ancef 2 Gm Premixed Ivpb -) 2 gm IVPB TuTh@1700 [facility] Last Admin: 07/17/18 16:03 Dose: Not Given Cholecalciferol (Vitamin D3 -) 1,000 unit PO DAILY [facility] Last Admin: 07/18/18 10:05 Dose: 1,000 unit Cefazolin Sodium 3 gm/ (Dextrose) 100 mls @ 200 mls/hr IVPB Sa@1000 [facility] Last Admin: 07/14/18 22:52 Dose: 200 mls/hr Insulin Aspart (Novolog Vial Sliding Scale -) 1 vial SQ [facility]; Protocol Last Admin: 07/18/18 12:28 Dose: Not Given Insulin Detemir (Levemir Vial) 16 units SQ [facility] Last Admin: 07/17/18 21:34 Dose: 16 units Levothyroxine Sodium (Synthroid -) 25 mcg PO DAILY@0700 [facility] Last Admin: 07/18/18 06:29 Dose: 25 mcg Melatonin (Melatonin) 3 mg PO HS [facility] Last Admin: 07/17/18 21:34 Dose: 3 mg Metoprolol Succinate 100 mg/ (Metoprolol Succinate 50 mg) 150 mg PO DAILY [facility] Last Admin: 07/18/18 10:05 Dose: 150 mg Multivit/Ca Carb/B Cmplx/FA/Prenat (Nephro-Misty -) 1 tablet PO DAILY [facility] Last Admin: 07/18/18 10:05 Dose: 1 tablet Oxycodone HCl (Roxicodone -) 10 mg PO Q12H [facility] Last Admin: 07/18/18 06:29 Dose: 10 mg Pantoprazole Sodium (Protonix -) 40 mg PO DAILY [facility] Last Admin: 07/18/18 10:05 Dose: 40 mg Sacubitril/Valsartan (Entresto 49 Mg-51 Mg Tablet) 1 tab PO BID [facility] Last Admin: 07/18/18 10:06 Dose: 1 tab Senna (Senna -) 1 tab PO HS [facility] Last Admin: 07/17/18 21:32 Dose: 1 tab Sertraline HCl (Zoloft -) 50 mg PO HS [facility] Last Admin: 07/17/18 21:32 Dose: 50 mg - Objective Vital Signs: Vital Signs Temperature 98 F 07/18/18 10:00 Pulse Rate 85 07/18/18 10:00 Respiratory Rate 18 07/18/18 10:00 Blood Pressure 139/69 07/18/18 10:00 O2 Sat by Pulse Oximetry (%) 98 07/18/18 09:00 Constitutional: Yes: Calm Eyes: Yes: Conjunctiva Clear HENT: Yes: Atraumatic Cardiovascular: Yes: S1, S2 Respiratory: Yes: CTA Bilaterally, Cough Gastrointestinal: Yes: Soft Genitourinary: Yes: WNL Musculoskeletal: Yes: WNL Edema: No Integumentary: Yes: WNL Neurological: Yes: Oriented Psychiatric: Yes: Oriented Labs: CBC, BMP 07/15/18 06:00 07/15/18 06:00 INR, PTT INR 0.99 (0.83-1.09) 07/13/18 18:19 Problem List - Problems (1) Hemoptysis Code(s): R04.2 - HEMOPTYSIS (2) ESRD (end stage renal disease) Code(s): N18.6 - END STAGE RENAL DISEASE Assessment/Plan Current Medications Generic Name Dose Route Start Last Admin Trade Name Freq PRN Reason Stop Dose Admin Acetaminophen 650 mg 07/14/18 01:25 07/17/18 18:57 Tylenol - PO 650 mg Q6H PRN Administration PAIN Acetaminophen 325 mg 07/14/18 07:00 07/18/18 06:29 Tylenol - PO 325 mg Q12H [facility] Administration Albuterol Sulfate 1 amp 07/14/18 01:25 Ventolin 0.083% Nebulizer Soln - NEB Q8H PRN Dyspnea Atorvastatin Calcium 80 mg 07/14/18 22:00 07/17/18 21:32 Lipitor - PO 80 mg HS [facility] Administration Calcium Acetate 667 mg 07/14/18 08:00 07/18/18 10:06 Phoslo - PO 667 mg TIDCM [facility] Administration Cefazolin Sodium/Dextrose 2 gm 07/17/18 13:30 07/17/18 16:03 Ancef 2 Gm Premixed Ivpb - IVPB Not Given TuTh@1700 [facility] Cholecalciferol 1,000 unit 07/14/18 10:00 07/18/18 10:05 Vitamin D3 - PO 1,000 unit DAILY [facility] Administration Cefazolin Sodium 3 gm/ 100 mls @ 200 mls/hr 07/14/18 20:15 07/14/18 22:52 Dextrose IVPB 200 mls/hr Sa@1000 [facility] Administration Insulin Aspart 1 vial 07/14/18 07:00 07/18/18 12:28 Novolog Vial Sliding Scale - SQ Not Given ACHS [facility] Protocol Insulin Detemir 16 units 07/14/18 22:00 07/17/18 21:34 Levemir Vial SQ 16 units HS [facility] Administration Levothyroxine Sodium 25 mcg 07/14/18 07:00 07/18/18 06:29 Synthroid - PO 25 mcg DAILY@0700 [facility] Administration Melatonin 3 mg 07/14/18 22:00 07/17/18 21:34 Melatonin PO 3 mg HS [facility] Administration Metoprolol Succinate 100 mg/ 150 mg 07/14/18 10:00 07/18/18 10:05 Metoprolol Succinate 50 mg PO 150 mg DAILY [facility] Administration Multivit/Ca Carb/B Cmplx/FA/Prenat 1 tablet 07/14/18 10:00 07/18/18 10:05 Nephro-Misty - PO 1 tablet DAILY [facility] Administration Oxycodone HCl 10 mg 07/14/18 07:00 07/18/18 06:29 Roxicodone - PO 10 mg Q12H [facility] Administration Pantoprazole Sodium 40 mg 07/14/18 10:00 07/18/18 10:05 Protonix - PO 40 mg DAILY [facility] Administration Sacubitril/Valsartan 1 tab 07/14/18 10:00 10/10/18 10:06 Entresto 49 Mg-51 Mg Tablet PO 1 tab BID [facility] Administration Senna 1 tab 07/14/18 22:00 07/17/18 21:32 Senna - PO 1 tab HS [facility] Administration Sertraline HCl 50 mg 07/14/18 22:00 07/17/18 21:32 Zoloft - PO 50 mg HS [facility] Administration Laboratory Tests 07/15/18 16:35 c-ANCA Pending Proteinase 3 (PR3) Pending p-ANCA Pending Atypical p-ANCA Pending Myeloperoxidase Ab Pending Glomerular Base Memb Ab 5 Impression 1. ESRD 2. hemoptysis 3. DM 4. CAD 5. PVD 6. DFU 7. anemia 8. hx steal syndrome s/p DRIL procedure 9. CHF 10. pulmonary nodules Plan - HD in am - pt has bronchoscopy tomorrow - monitor bp - epogen for anemia - renal diet - will follow
--- NOTE | 2018-07-18 13:13 | PN ---
Progress Note (short form) - Note Progress Note: Hemoptysis - decreased Vital Signs - 24 hr 07/17/18 07/17/18 07/18/18 18:30 21:00 06:00 Temperature 98.8 F 98.2 F Pulse Rate 85 85 Respiratory 18 18 Rate Blood Pressure 123/57 L 147/61 O2 Sat by Pulse 98 Oximetry (%) 07/18/18 07/18/18 07/18/18 09:00 10:00 13:00 Temperature 98 F Pulse Rate 85 Respiratory 18 18 Rate Blood Pressure 139/69 O2 Sat by Pulse 98 98 Oximetry (%) 07/18/18 14:00 Temperature 98 F Pulse Rate 84 Respiratory 18 Rate Blood Pressure 144/58 L O2 Sat by Pulse Oximetry (%) Current Medications Generic Name Dose Route Start Last Admin Trade Name Freq PRN Reason Stop Dose Admin Acetaminophen 650 mg 07/14/18 01:25 07/17/18 18:57 Tylenol - PO 650 mg Q6H PRN Administration PAIN Acetaminophen 325 mg 07/14/18 07:00 07/18/18 06:29 Tylenol - PO 325 mg Q12H [facility] Administration Albuterol Sulfate 1 amp 07/14/18 01:25 Ventolin 0.083% Nebulizer Soln - NEB Q8H PRN Dyspnea Atorvastatin Calcium 80 mg 07/14/18 22:00 07/17/18 21:32 Lipitor - PO 80 mg HS [facility] Administration Calcium Acetate 667 mg 07/14/18 08:00 07/18/18 13:00 Phoslo - PO 667 mg TIDCM [facility] Administration Cefazolin Sodium/Dextrose 2 gm 07/17/18 13:30 07/17/18 16:03 Ancef 2 Gm Premixed Ivpb - IVPB Not Given TuTh@1700 [facility] Cholecalciferol 1,000 unit 07/14/18 10:00 07/18/18 10:05 Vitamin D3 - PO 1,000 unit DAILY [facility] Administration Epoetin Parmjit 5,000 unit 07/19/18 12:56 Epogen - IVPUSH 07/19/18 12:57 ONCE ONE Cefazolin Sodium 3 gm/ 100 mls @ 200 mls/hr 07/14/18 20:15 07/14/18 22:52 Dextrose IVPB 200 mls/hr Sa@1000 [facility] Administration Sodium Chloride 250 mls @ 3,000 mls/hr 07/18/18 12:56 Normal Saline - IV 07/19/18 12:56 PRN PRN Hypotension during Dialysis Insulin Aspart 1 vial 07/14/18 07:00 07/18/18 12:28 Novolog Vial Sliding Scale - SQ Not Given ACHS [facility] Protocol Insulin Detemir 16 units 07/14/18 22:00 07/17/18 21:34 Levemir Vial SQ 16 units HS [facility] Administration Levothyroxine Sodium 25 mcg 07/14/18 07:00 07/18/18 06:29 Synthroid - PO 25 mcg DAILY@0700 [facility] Administration Melatonin 3 mg 07/14/18 22:00 07/17/18 21:34 Melatonin PO 3 mg HS [facility] Administration Metoprolol Succinate 100 mg/ 150 mg 07/14/18 10:00 07/18/18 10:05 Metoprolol Succinate 50 mg PO 150 mg DAILY [facility] Administration Multivit/Ca Carb/B Cmplx/FA/Prenat 1 tablet 07/14/18 10:00 07/18/18 10:05 Nephro-Misty - PO 1 tablet DAILY [facility] Administration Oxycodone HCl 10 mg 07/14/18 07:00 07/18/18 06:29 Roxicodone - PO 10 mg Q12H [facility] Administration Pantoprazole Sodium 40 mg 07/14/18 10:00 07/18/18 10:05 Protonix - PO 40 mg DAILY [facility] Administration Sacubitril/Valsartan 1 tab 07/14/18 10:00 07/18/18 10:06 Entresto 49 Mg-51 Mg Tablet PO 1 tab BID [facility] Administration Senna 1 tab 07/14/18 22:00 07/17/18 21:32 Senna - PO 1 tab HS [facility] Administration Sertraline HCl 50 mg 07/14/18 22:00 07/17/18 21:32 Zoloft - PO 50 mg HS [facility] Administration Laboratory Results - last 24 hr 07/14/18 07/15/18 07/17/18 14:30 16:35 21:30 POC Glucometer 270 Glomerular Base Memb Ab 5 TB Test (QFT) Nil 0.22 TB Test (QFT) Mitogen >10.00 TB Test TB - Nil No Result Required. TB Test (QFT) Negative TB Test (QFT) Interp No Result Required. 07/18/18 07/18/18 07/18/18 06:22 10:51 16:55 POC Glucometer 65 129 253 Glomerular Base Memb Ab TB Test (QFT) Nil TB Test (QFT) Mitogen TB Test TB - Nil TB Test (QFT) TB Test (QFT) Interp S1S2 RRR Lungs decreased Abd- soft ,NT No edema PLAN sputum AFB- negative quantiferon gold test negative dc isolation Plavix on hold empiric antibiotics PPD was negative in the [place] Bronchoscopy as per Pulmonary - - tomorrow Problem List - Problems (1) Hemoptysis Code(s): R04.2 - HEMOPTYSIS (2) ASHD (arteriosclerotic heart disease) Code(s): I25.10 - ATHSCL HEART DISEASE OF [place] CORONARY ARTERY W/O ANG PCTRS (3) Chronic HFrEF (heart failure with reduced ejection fraction) Code(s): I50.22 - CHRONIC SYSTOLIC (CONGESTIVE) HEART FAILURE (4) ESRD (end stage renal disease) on dialysis Code(s): N18.6 - END STAGE RENAL DISEASE; Z99.2 - DEPENDENCE ON RENAL DIALYSIS
--- NOTE | 2018-07-18 16:30 | PN ---
Progress Note, Physician History of Present Illness: PULMONARY alert,less hemoptysis( dark heme) - Current Medication List Current Medications: Active Medications Acetaminophen (Tylenol -) 650 mg PO Q6H PRN PRN Reason: PAIN Last Admin: 07/17/18 18:57 Dose: 650 mg Acetaminophen (Tylenol -) 325 mg PO Q12H [facility] Last Admin: 07/18/18 06:29 Dose: 325 mg Albuterol Sulfate (Ventolin 0.083% Nebulizer Soln -) 1 amp NEB Q8H PRN PRN Reason: Dyspnea Atorvastatin Calcium (Lipitor -) 80 mg PO HS [facility] Last Admin: 07/17/18 21:32 Dose: 80 mg Calcium Acetate (Phoslo -) 667 mg PO TIDCM [facility] Last Admin: 07/18/18 13:00 Dose: 667 mg Cefazolin Sodium/Dextrose (Ancef 2 Gm Premixed Ivpb -) 2 gm IVPB TuTh@1700 [facility] Last Admin: 07/17/18 16:03 Dose: Not Given Cholecalciferol (Vitamin D3 -) 1,000 unit PO DAILY [facility] Last Admin: 07/18/18 10:05 Dose: 1,000 unit Epoetin Parmjit (Epogen -) 5,000 unit IVPUSH ONCE ONE Stop: 07/19/18 12:57 Cefazolin Sodium 3 gm/ (Dextrose) 100 mls @ 200 mls/hr IVPB Sa@1000 [facility] Last Admin: 07/14/18 22:52 Dose: 200 mls/hr Sodium Chloride (Normal Saline -) 250 mls @ 3,000 mls/hr IV PRN PRN PRN Reason: Hypotension during Dialysis Stop: 07/19/18 12:56 Insulin Aspart (Novolog Vial Sliding Scale -) 1 vial SQ [facility]; Protocol Last Admin: 07/18/18 12:28 Dose: Not Given Insulin Detemir (Levemir Vial) 16 units SQ [facility] Last Admin: 07/17/18 21:34 Dose: 16 units Levothyroxine Sodium (Synthroid -) 25 mcg PO DAILY@0700 [facility] Last Admin: 07/18/18 06:29 Dose: 25 mcg Melatonin (Melatonin) 3 mg PO [facility] Last Admin: 07/17/18 21:34 Dose: 3 mg Metoprolol Succinate 100 mg/ (Metoprolol Succinate 50 mg) 150 mg PO DAILY [facility] Last Admin: 07/18/18 10:05 Dose: 150 mg Multivit/Ca Carb/B Cmplx/FA/Prenat (Nephro-Misty -) 1 tablet PO DAILY [facility] Last Admin: 07/18/18 10:05 Dose: 1 tablet Oxycodone HCl (Roxicodone -) 10 mg PO Q12H [facility] Last Admin: 07/18/18 06:29 Dose: 10 mg Pantoprazole Sodium (Protonix -) 40 mg PO DAILY [facility] Last Admin: 07/18/18 10:05 Dose: 40 mg Sacubitril/Valsartan (Entresto 49 Mg-51 Mg Tablet) 1 tab PO BID [facility] Last Admin: 07/18/18 10:06 Dose: 1 tab Senna (Senna -) 1 tab PO HS [facility] Last Admin: 07/17/18 21:32 Dose: 1 tab Sertraline HCl (Zoloft -) 50 mg PO HS [facility] Last Admin: 07/17/18 21:32 Dose: 50 mg - Objective Vital Signs: Vital Signs Temperature 98 F 07/18/18 10:00 Pulse Rate 85 07/18/18 10:00 Respiratory Rate 18 07/18/18 10:00 Blood Pressure 139/69 07/18/18 10:00 O2 Sat by Pulse Oximetry (%) 98 07/18/18 13:00 Constitutional: Yes: Well Nourished, Calm Eyes: Yes: WNL HENT: Yes: WNL Neck: Yes: WNL Cardiovascular: Yes: Regular Rate and Rhythm, S1, S2 Respiratory: Yes: CTA Bilaterally Gastrointestinal: Yes: Normal Bowel Sounds Extremities: Yes: WNL Edema: No Labs: CBC, BMP 07/15/18 06:00 Problem List - Problems (1) Hemoptysis Code(s): R04.2 - HEMOPTYSIS (2) Hemoptysis Code(s): R04.2 - HEMOPTYSIS (3) ASHD (arteriosclerotic heart disease) Code(s): I25.10 - ATHSCL HEART DISEASE OF [place] CORONARY ARTERY W/O ANG PCTRS (4) ESRD (end stage renal disease) Code(s): N18.6 - END STAGE RENAL DISEASE (5) ICD (implantable cardioverter-defibrillator) in place Code(s): Z95.810 - PRESENCE OF AUTOMATIC (IMPLANTABLE) CARDIAC DEFIBRILLATOR (6) S/P CABG (coronary artery bypass graft) Code(s): Z95.1 - PRESENCE OF AORTOCORONARY BYPASS GRAFT Assessment/Plan A/P Hemoptysis ESRD on HD CAD LV Systolic Dysfunction DM PAD Lung Nodules - inspection bronchoscopy scheduled for am - monitor/quantify hemoptysis - HD per renal - outpt f/u of lung nodules - DVT prophylaxis DR GAMINO
[2018-07-18] MEDS ORDERED: BISACODYL 10 MG SUPP.RECT PR ONE (21:05)
[2018-07-18] MEDS: ATORVASTATIN CA 80 MG TABLET (FP) PO SCH (22:26)
[2018-07-18] MEDS: SERTRALINE HCL 50 MG TABLET (FP) PO SCH (22:26)
[2018-07-18] MEDS: SENNOSIDES 8.6MG TABLET (FP) PO SCH (22:26)
[2018-07-18] MEDS: MELATONIN 1 MG TABLET PO SCH (22:27)
[2018-07-18] MEDS: INSULIN (LEVEMIR) 100 UNITS/ML UNITS SQ SCH (22:28)
[2018-07-19 00:12] LABS: ATYPICAL pANCA <1:20 titer (Neg:<1:20); C-ANCA <1:20 titer (Neg:<1:20); P-ANCA <1:20 titer (Neg:<1:20)
[2018-07-19] MEDS: oxyCODONE HCL 5 MG TABLET PO SCH ×2 (06:18→18:36)
[2018-07-19] MEDS: LEVOTHYROXINE NA 25 MCG TABLET (FP) PO SCH (06:18)
[2018-07-19] MEDS: INSULIN SLIDING SCALE (NOVOLOG) 1 VIAL SQ SCH ×4 (06:18→21:30)
[2018-07-19] MEDS: ACETAMINOPHEN 325 MG TABLET (FP) PO SCH ×2 (06:18→18:38)
[2018-07-19] MEDS ORDERED: SODIUM CHLORIDE 250 ML IV PRN (07:01)
[2018-07-19] MEDS ORDERED: PT OWN MED DRAWER 7, Y5N ONE ×2 (08:28→21:00)
[2018-07-19] MEDS ORDERED: ceFAZolin 2 GRAM PREMIX BAG IVPB SCH (08:31)
[2018-07-19 09:02] LABS: HEMATOCRIT 30.9 % (35.4-49); HEMOGLOBIN 9.8 GM/dL (11.7-16.9); MCH 28.1 pg (25.7-33.7); MCHC 31.8 g/dl (32.0-35.9); MEAN CELL VOLUME 88.2 fl (80-96); MEAN PLT VOLUME 8.8 fl (7.5-11.1); PLATELET COUNT 175 K/MM3 (134-434); WHITE BLOOD COUNT 7.3 K/mm3 (4.0-10.0)
[2018-07-19 09:23] LABS: ALBUMIN 2.8 g/dl (3.4-5.0); ALK PHOS 120 U/L (45-117); ANION GAP 8 MMOL/L (8-16); BILIRUBIN,TOTAL 0.3 mg/dL (0.2-1); BLOOD UREA NITROGEN 35 mg/dL (7-18); CALCIUM 8.5 mg/dL (8.5-10.1); CHLORIDE 101 mmol/L (98-107); CO2 28 mmol/L (21-32); CREATININE 6.6 mg/dL (0.55-1.3); GLUCOSE,RANDOM 126 mg/dL (74-106); POTASSIUM 4.6 mmol/L (3.5-5.1); SGOT/AST 22 U/L (15-37); SGPT/ALT < 6 U/L (13-61); SODIUM 137 mmol/L (136-145); TOT PROT 6.8 g/dl (6.4-8.2)
[2018-07-19] MEDS ORDERED: EPOETIN ALFA 2,000 UNIT, EPOETIN ALFA 3,000 UNIT IVPUSH ONE (10:00)
[2018-07-19] MEDS: CALCIUM ACETATE 667 MG CAPSULE (FP) PO SCH ×3 (10:38→18:06)
[2018-07-19] MEDS: VITAMIN B COMP W-C 1 EA TABLET PO SCH (10:38)
[2018-07-19] MEDS: SACUBITRIL/VALSARTAN 49 MG-51 MG TABLET PO SCH ×2 (10:38→21:29)
[2018-07-19] MEDS: CHOLECALCIFEROL (VITAMIN D3) 1,000 UNIT TABLET (FP) PO SCH (10:38)
[2018-07-19] MEDS: PANTOPRAZOLE 40 MG TABLET (FP) PO SCH (10:38)
--- NOTE | 2018-07-19 11:19 | PN ---
Progress Note, Physician History of Present Illness: PULMONARY ALERT,NO DISTRESS,-HEMOPTYSIS TODAY,FOR FLEX BRONCH - Current Medication List Current Medications: Active Medications Acetaminophen (Tylenol -) 650 mg PO Q6H PRN PRN Reason: PAIN Last Admin: 07/17/18 18:57 Dose: 650 mg Acetaminophen (Tylenol -) 325 mg PO Q12H [facility] Last Admin: 07/19/18 06:18 Dose: Not Given Atorvastatin Calcium (Lipitor -) 80 mg PO [facility] Last Admin: 07/18/18 22:26 Dose: 80 mg Calcium Acetate (Phoslo -) 667 mg PO TIDCM [facility] Last Admin: 07/19/18 10:38 Dose: Not Given Cefazolin Sodium/Dextrose (Ancef 2 Gm Premixed Ivpb -) 2 gm IVPB TuTh@1000 [facility] Last Admin: 07/19/18 10:38 Dose: 2 gm Cholecalciferol (Vitamin D3 -) 1,000 unit PO DAILY [facility] Last Admin: 07/19/18 10:38 Dose: Not Given Cefazolin Sodium 3 gm/ (Dextrose) 100 mls @ 200 mls/hr IVPB Sa@1000 [facility] Last Admin: 07/14/18 22:52 Dose: 200 mls/hr Sodium Chloride (Normal Saline -) 250 mls @ 3,000 mls/hr IV PRN PRN PRN Reason: Hypotension during Dialysis Stop: 07/20/18 07:00 Insulin Aspart (Novolog Vial Sliding Scale -) 1 vial SQ [facility]; Protocol Last Admin: 07/19/18 10:38 Dose: Not Given Insulin Detemir (Levemir Vial) 16 units SQ [facility] Last Admin: 07/18/18 22:28 Dose: 16 units Levothyroxine Sodium (Synthroid -) 25 mcg PO DAILY@0700 [facility] Last Admin: 07/19/18 06:18 Dose: Not Given Melatonin (Melatonin) 3 mg PO [facility] Last Admin: 07/18/18 22:27 Dose: 3 mg Metoprolol Succinate 100 mg/ (Metoprolol Succinate 50 mg) 150 mg PO DAILY [facility] Last Admin: 07/18/18 10:05 Dose: 150 mg Multivit/Ca Carb/B Cmplx/FA/Prenat (Nephro-Misty -) 1 tablet PO DAILY [facility] Last Admin: 07/19/18 10:38 Dose: Not Given Oxycodone HCl (Roxicodone -) 10 mg PO Q12H [facility] Last Admin: 07/19/18 06:18 Dose: Not Given Pantoprazole Sodium (Protonix -) 40 mg PO DAILY [facility] Last Admin: 07/19/18 10:38 Dose: Not Given Sacubitril/Valsartan (Entresto 49 Mg-51 Mg Tablet) 1 tab PO BID [facility] Last Admin: 07/19/18 10:38 Dose: Not Given Senna (Senna -) 1 tab PO HS [facility] Last Admin: 07/18/18 22:26 Dose: 1 tab Sertraline HCl (Zoloft -) 50 mg PO HS [facility] Last Admin: 07/18/18 22:26 Dose: 50 mg - Objective Vital Signs: Vital Signs Temperature 98.4 F 07/19/18 09:00 Pulse Rate 84 07/19/18 11:00 Respiratory Rate 18 07/19/18 11:00 Blood Pressure 152/70 07/19/18 11:00 O2 Sat by Pulse Oximetry (%) 98 07/19/18 09:00 Constitutional: Yes: Well Nourished, Thin Eyes: Yes: WNL HENT: Yes: WNL Neck: Yes: WNL Cardiovascular: Yes: Regular Rate and Rhythm, S1, S2 Respiratory: Yes: Rales (BILATERAL CRACKLES 1/3 UP) Gastrointestinal: Yes: Normal Bowel Sounds, Soft Extremities: Yes: WNL Edema: No Labs: CBC, BMP 07/19/18 07:30 07/19/18 07:30 INR, PTT INR 0.99 (0.83-1.09) 07/13/18 18:19 Problem List - Problems (1) Hemoptysis Code(s): R04.2 - HEMOPTYSIS (2) Hemoptysis Code(s): R04.2 - HEMOPTYSIS (3) ASHD (arteriosclerotic heart disease) Code(s): I25.10 - ATHSCL HEART DISEASE OF [place] CORONARY ARTERY W/O ANG PCTRS (4) ESRD (end stage renal disease) Code(s): N18.6 - END STAGE RENAL DISEASE (5) ICD (implantable cardioverter-defibrillator) in place Code(s): Z95.810 - PRESENCE OF AUTOMATIC (IMPLANTABLE) CARDIAC DEFIBRILLATOR (6) S/P CABG (coronary artery bypass graft) Code(s): Z95.1 - PRESENCE OF AORTOCORONARY BYPASS GRAFT Assessment/Plan A/P Hemoptysis ESRD on HD CAD LV Systolic Dysfunction DM PAD Lung Nodules - inspection bronchoscopy today - monitor/quantify hemoptysis - HD per renal - outpt f/u of lung nodules - DVT prophylaxis DR GAMINO
[2018-07-19] MEDS ORDERED: EPOETIN ALFA 2,000 UNIT/1 ML VIAL IVPUSH ONE (12:56)
--- NOTE | 2018-07-19 13:33 | DS ---
Physical Examination Vital Signs: Vital Signs Temperature 98.4 F 07/19/18 09:00 Pulse Rate 84 07/19/18 11:00 Respiratory Rate 18 07/19/18 11:00 Blood Pressure 152/70 07/19/18 11:00 O2 Sat by Pulse Oximetry (%) 98 07/19/18 09:00 Labs: CBC, BMP 07/19/18 07:30 07/19/18 07:30 Discharge Summary Reason For Visit: HEMOPTYSIS Current Active Problems Hemoptysis (Acute) Hemoptysis (Acute) Condition: Good - Instructions Diet, Activity, Other Instructions: return to the Ed for continued coughing up blood, severe shortness of breath, chest pain, pain with fever, lightheadness, passing out. We did not find the cause for your bleeding today. The CT scan of your lungs was negative. You still need to see a physician credentialing specialist urgently so that you can have a test called a bronchoscopy. You must get your dialysis tomorrow. Make sure to let them know that you had a CT scan with contrast. - Home Medications Comprehensive Discharge Medication List: Ambulatory Orders RX: Acetaminophen 650 mg PO Q4H PRN 02/28/18 RX: Aspirin [ASA -] 81 mg PO DAILY 02/28/18 RX: Atorvastatin Ca [Lipitor] 80 mg PO HS 02/28/18 RX: Calcium Acetate [Phoslo -] 667 mg PO TIDCM 02/28/18 RX: Clopidogrel Bisulfate [Plavix -] 75 mg PO DAILY 02/28/18 RX: Insulin Glargine,Hum.rec.anlog [Lantus] 16 unit SQ HS 02/28/18 RX: Levothyroxine [Synthroid -] 25 mcg PO DAILY 02/28/18 RX: Metoprolol Succinate [Toprol Xl] 150 mg PO DAILY 02/28/18 RX: Pantoprazole Sodium 40 mg PO DAILY 02/28/18 RX: Sennosides [Senna -] 1 tab PO HS 02/28/18 RX: Sertraline HCl [Zoloft -] 50 mg PO HS 02/28/18 RX: Heparin - 5,000 unit SQ BID #1 vial 03/10/18 RX: Albuterol 0.083% Nebulizer Yessi [Ventolin 0.083% Nebulizer Soln -] 1 amp IN Q8H PRN 03/28/18 RX: Sacubitril/Valsartan [Entresto 49 mg-51 mg Tablet] 1 tab PO BID #60 tablet 04/05/18 RX: Melatonin 3 mg PO HS 04/21/18 Cefazolin 2 gm/D5w [Ancef 2 gm Premixed Ivpb -] 2 gm IV Q48H #30 ml 06/28/18 Cefazolin [Ancef] 3 gm IV WEEKLY 07/13/18 Cholecalciferol (Vitamin D3) [Vitamin D3] 1,000 unit PO DAILY 07/13/18 Insulin Sliding Scale [Novolog Vial Sliding Scale -] 0 units SQ BID 07/13/18 Oxycodone HCl/Acetaminophen [Percocet 10-325 mg Tablet] 1 each PO BID 07/13/18 Vitamin B Comp W-C [Nephro-Misty -] 1 tablet PO DAILY 07/13/18 Vit A/Vitamin D3/E/Aloe V/Zinc [Periguard Ointment] 5 gm TP TID 07/14/18
--- NOTE | 2018-07-19 15:40 | PN ---
Progress Note (short form) - Note Progress Note: Hemoptysis - persists Vital Signs - 24 hr 07/18/18 07/18/18 07/19/18 17:00 21:00 05:00 Temperature 98.0 F 98.4 F 98.4 F Pulse Rate 84 86 85 Respiratory 18 16 17 Rate Blood Pressure 138/65 126/62 142/62 O2 Sat by Pulse 98 Oximetry (%) 07/19/18 07/19/18 07/19/18 07:25 07:30 08:00 Temperature 98.2 F Pulse Rate 80 82 80 Respiratory 18 18 Rate Blood Pressure 150/66 152/68 149/62 O2 Sat by Pulse Oximetry (%) 07/19/18 07/19/18 07/19/18 08:30 09:00 09:30 Temperature 98.4 F Pulse Rate 82 102 H 80 Respiratory 18 18 18 Rate Blood Pressure 141/61 155/80 152/62 O2 Sat by Pulse 98 Oximetry (%) 07/19/18 07/19/18 07/19/18 10:00 10:30 11:00 Temperature Pulse Rate 80 85 84 Respiratory 18 18 18 Rate Blood Pressure 152/70 149/72 152/70 O2 Sat by Pulse Oximetry (%) 07/19/18 07/19/18 13:00 15:00 Temperature 98.2 F Pulse Rate 88 84 Respiratory 18 18 Rate Blood Pressure 148/72 147/64 O2 Sat by Pulse Oximetry (%) Current Medications Generic Name Dose Route Start Last Admin Trade Name Freq PRN Reason Stop Dose Admin Acetaminophen 650 mg 07/14/18 01:25 07/17/18 18:57 Tylenol - PO 650 mg Q6H PRN Administration PAIN Acetaminophen 325 mg 07/14/18 07:00 07/19/18 06:18 Tylenol - PO Not Given Q12H [facility] Atorvastatin Calcium 80 mg 07/14/18 22:00 07/18/18 22:26 Lipitor - PO 80 mg HS [facility] Administration Calcium Acetate 667 mg 07/14/18 08:00 07/19/18 10:38 Phoslo - PO Not Given TIDCM [facility] Cefazolin Sodium/Dextrose 2 gm 07/19/18 08:31 07/19/18 10:38 Ancef 2 Gm Premixed Ivpb - IVPB 2 gm TuTh@1000 [facility] Administration Cholecalciferol 1,000 unit 07/14/18 10:00 10/11/18 10:38 Vitamin D3 - PO Not Given DAILY [facility] Cefazolin Sodium 3 gm/ 100 mls @ 200 mls/hr 07/14/18 20:15 07/14/18 22:52 Dextrose IVPB 200 mls/hr Sa@1000 [facility] Administration Sodium Chloride 250 mls @ 3,000 mls/hr 07/19/18 07:01 Normal Saline - IV 07/20/18 07:00 PRN PRN Hypotension during Dialysis Insulin Aspart 1 vial 07/14/18 07:00 07/19/18 10:38 Novolog Vial Sliding Scale - SQ Not Given ACHS [facility] Protocol Insulin Detemir 16 units 07/14/18 22:00 07/18/18 22:28 Levemir Vial SQ 16 units HS [facility] Administration Levothyroxine Sodium 25 mcg 07/14/18 07:00 07/19/18 06:18 Synthroid - PO Not Given DAILY@0700 [facility] Melatonin 3 mg 07/14/18 22:00 07/18/18 22:27 Melatonin PO 3 mg HS [facility] Administration Metoprolol Succinate 100 mg/ 150 mg 07/14/18 10:00 07/18/18 10:05 Metoprolol Succinate 50 mg PO 150 mg DAILY [facility] Administration Multivit/Ca Carb/B Cmplx/FA/Prenat 1 tablet 07/14/18 10:00 07/19/18 10:38 Nephro-Misty - PO Not Given DAILY [facility] Oxycodone HCl 10 mg 07/14/18 07:00 07/19/18 06:18 Roxicodone - PO Not Given Q12H [facility] Pantoprazole Sodium 40 mg 07/14/18 10:00 07/19/18 10:38 Protonix - PO Not Given DAILY [facility] Sacubitril/Valsartan 1 tab 07/14/18 10:00 07/19/18 10:38 Entresto 49 Mg-51 Mg Tablet PO Not Given BID [facility] Senna 1 tab 07/14/18 22:00 07/18/18 22:26 Senna - PO 1 tab HS [facility] Administration Sertraline HCl 50 mg 07/14/18 22:00 07/18/18 22:26 Zoloft - PO 50 mg HS [facility] Administration Laboratory Results - last 24 hr 07/14/18 07/15/18 07/18/18 14:30 16:35 16:55 WBC RBC Hgb Hct MCV MCH MCHC RDW Plt Count MPV Sodium Potassium Chloride Carbon Dioxide Anion Gap BUN Creatinine Creat Clearance w eGFR POC Glucometer 253 Random Glucose Calcium Total Bilirubin AST ALT Alkaline Phosphatase Total Protein Albumin c-ANCA <1:20 Proteinase 3 (PR3) <3.5 p-ANCA <1:20 Atypical p-ANCA <1:20 Myeloperoxidase Ab <9.0 TB Test (QFT) Nil 0.22 TB Test (QFT) Mitogen >10.00 TB Test TB - Nil No Result Required. TB Test (QFT) Negative TB Test (QFT) Interp No Result Required. Blood Type Antibody Screen 07/18/18 07/19/18 07/19/18 22:23 06:14 07:30 WBC RBC Hgb Hct MCV MCH MCHC RDW Plt Count MPV Sodium 137 Potassium 4.6 Chloride 101 Carbon Dioxide 28 Anion Gap 8 BUN 35 H Creatinine 6.6 H Creat Clearance w eGFR 8.32 POC Glucometer 113 143 Random Glucose 126 H Calcium 8.5 Total Bilirubin 0.3 AST 22 ALT < 6 L Alkaline Phosphatase 120 H Total Protein 6.8 Albumin 2.8 L c-ANCA Proteinase 3 (PR3) p-ANCA Atypical p-ANCA Myeloperoxidase Ab TB Test (QFT) Nil TB Test (QFT) Mitogen TB Test TB - Nil TB Test (QFT) TB Test (QFT) Interp Blood Type Antibody Screen 07/19/18 07/19/18 07/19/18 07:30 09:00 12:34 WBC 7.3 RBC 3.50 L Hgb 9.8 L Hct 30.9 L MCV 88.2 MCH 28.1 MCHC 31.8 L RDW 18.0 H Plt Count 175 MPV 8.8 Sodium Potassium Chloride Carbon Dioxide Anion Gap BUN Creatinine Creat Clearance w eGFR POC Glucometer 138 Random Glucose Calcium Total Bilirubin AST ALT Alkaline Phosphatase Total Protein Albumin c-ANCA Proteinase 3 (PR3) p-ANCA Atypical p-ANCA Myeloperoxidase Ab TB Test (QFT) Nil TB Test (QFT) Mitogen TB Test TB - Nil TB Test (QFT) TB Test (QFT) Interp Blood Type O POSITIVE Antibody Screen Negative [id number] Lungs decreased Abd- soft ,NT No edema PLAN sputum AFB- negative quantiferon gold test negative dc isolation Plavix on hold empiric antibiotics PPD was negative in the [facility] initially Anesthesiologist felt that pt was too high risk for procedure on day of dialysis, I have spoken with Dr Sawyer and Dr Dove- as he still continues to have hemoptysis and has been off Plavix this long, pt will need bronchoscopy- will do on Non dialysis days- Monday or Monday Problem List - Problems (1) Hemoptysis Code(s): R04.2 - HEMOPTYSIS (2) ASHD (arteriosclerotic heart disease) Code(s): I25.10 - ATHSCL HEART DISEASE OF [place] CORONARY ARTERY W/O ANG PCTRS (3) Chronic HFrEF (heart failure with reduced ejection fraction) Code(s): I50.22 - CHRONIC SYSTOLIC (CONGESTIVE) HEART FAILURE (4) ESRD (end stage renal disease) on dialysis Code(s): N18.6 - END STAGE RENAL DISEASE; Z99.2 - DEPENDENCE ON RENAL DIALYSIS
[2018-07-19] MEDS: METOPROLOL SUCCINATE 100 MG, METOPROLOL SUCCINATE 50 MG PO SCH (15:46)
--- NOTE | 2018-07-19 16:29 | PN ---
Progress Note, Physician History of Present Illness: Pt seen and examined at bedside. He complains of hemoptysis. He denies chest pain. - Current Medication List Current Medications: Active Medications Acetaminophen (Tylenol -) 650 mg PO Q6H PRN PRN Reason: PAIN Last Admin: 07/17/18 18:57 Dose: 650 mg Acetaminophen (Tylenol -) 325 mg PO Q12H [facility] Last Admin: 07/19/18 06:18 Dose: Not Given Atorvastatin Calcium (Lipitor -) 80 mg PO HS [facility] Last Admin: 07/18/18 22:26 Dose: 80 mg Calcium Acetate (Phoslo -) 667 mg PO TIDCM [facility] Last Admin: 07/19/18 12:00 Dose: Not Given Cefazolin Sodium/Dextrose (Ancef 2 Gm Premixed Ivpb -) 2 gm IVPB TuTh@1000 [facility] Last Admin: 07/19/18 10:38 Dose: 2 gm Cholecalciferol (Vitamin D3 -) 1,000 unit PO DAILY [facility] Last Admin: 07/19/18 10:38 Dose: Not Given Cefazolin Sodium 3 gm/ (Dextrose) 100 mls @ 200 mls/hr IVPB Sa@1000 [facility] Last Admin: 07/14/18 22:52 Dose: 200 mls/hr Sodium Chloride (Normal Saline -) 250 mls @ 3,000 mls/hr IV PRN PRN PRN Reason: Hypotension during Dialysis Stop: 07/20/18 07:00 Insulin Aspart (Novolog Vial Sliding Scale -) 1 vial SQ [facility]; Protocol Last Admin: 07/19/18 10:38 Dose: Not Given Insulin Detemir (Levemir Vial) 16 units SQ [facility] Last Admin: 07/18/18 22:28 Dose: 16 units Levothyroxine Sodium (Synthroid -) 25 mcg PO DAILY@0700 [facility] Last Admin: 07/19/18 06:18 Dose: Not Given Melatonin (Melatonin) 3 mg PO [facility] Last Admin: 07/18/18 22:27 Dose: 3 mg Metoprolol Succinate 100 mg/ (Metoprolol Succinate 50 mg) 150 mg PO DAILY [facility] Last Admin: 07/19/18 15:46 Dose: 150 mg Multivit/Ca Carb/B Cmplx/FA/Prenat (Nephro-Misty -) 1 tablet PO DAILY [facility] Last Admin: 07/19/18 10:38 Dose: Not Given Oxycodone HCl (Roxicodone -) 10 mg PO Q12H [facility] Last Admin: 07/19/18 06:18 Dose: Not Given Pantoprazole Sodium (Protonix -) 40 mg PO DAILY [facility] Last Admin: 07/19/18 10:38 Dose: Not Given Sacubitril/Valsartan (Entresto 49 Mg-51 Mg Tablet) 1 tab PO BID [facility] Last Admin: 07/19/18 10:38 Dose: Not Given Senna (Senna -) 1 tab PO HS [facility] Last Admin: 07/18/18 22:26 Dose: 1 tab Sertraline HCl (Zoloft -) 50 mg PO HS [facility] Last Admin: 07/18/18 22:26 Dose: 50 mg - Objective Vital Signs: Vital Signs Temperature 98.2 F 07/19/18 15:00 Pulse Rate 84 07/19/18 15:00 Respiratory Rate 18 07/19/18 15:00 Blood Pressure 147/64 07/19/18 15:00 O2 Sat by Pulse Oximetry (%) 98 07/19/18 09:00 Constitutional: Yes: Calm Eyes: Yes: Conjunctiva Clear Cardiovascular: Yes: S1, S2 Respiratory: Yes: Other (hemoptysis) Gastrointestinal: Yes: Soft Genitourinary: Yes: WNL Musculoskeletal: Yes: WNL Edema: No Neurological: Yes: Oriented Psychiatric: Yes: Oriented Labs: CBC, BMP 07/19/18 07:30 07/19/18 07:30 INR, PTT INR 0.99 (0.83-1.09) 07/13/18 18:19 Problem List - Problems (1) Hemoptysis Code(s): R04.2 - HEMOPTYSIS (2) ESRD (end stage renal disease) Code(s): N18.6 - END STAGE RENAL DISEASE Assessment/Plan Current Medications Generic Name Dose Route Start Last Admin Trade Name Freq PRN Reason Stop Dose Admin Acetaminophen 650 mg 07/14/18 01:25 07/17/18 18:57 Tylenol - PO 650 mg Q6H PRN Administration PAIN Acetaminophen 325 mg 07/14/18 07:00 07/19/18 06:18 Tylenol - PO Not Given Q12H [facility] Atorvastatin Calcium 80 mg 07/14/18 22:00 07/18/18 22:26 Lipitor - PO 80 mg HS [facility] Administration Calcium Acetate 667 mg 07/14/18 08:00 07/19/18 12:00 Phoslo - PO Not Given TIDCM [facility] Cefazolin Sodium/Dextrose 2 gm 07/19/18 08:31 07/19/18 10:38 Ancef 2 Gm Premixed Ivpb - IVPB 2 gm TuTh@1000 [facility] Administration Cholecalciferol 1,000 unit 07/14/18 10:00 07/19/18 10:38 Vitamin D3 - PO Not Given DAILY [facility] Cefazolin Sodium 3 gm/ 100 mls @ 200 mls/hr 07/14/18 20:15 07/14/18 22:52 Dextrose IVPB 200 mls/hr Sa@1000 [facility] Administration Sodium Chloride 250 mls @ 3,000 mls/hr 07/19/18 07:01 Normal Saline - IV 07/20/18 07:00 PRN PRN Hypotension during Dialysis Insulin Aspart 1 vial 07/14/18 07:00 07/19/18 10:38 Novolog Vial Sliding Scale - SQ Not Given ACHS [facility] Protocol Insulin Detemir 16 units 07/14/18 22:00 07/18/18 22:28 Levemir Vial SQ 16 units HS [facility] Administration Levothyroxine Sodium 25 mcg 07/14/18 07:00 07/19/18 06:18 Synthroid - PO Not Given DAILY@0700 [facility] Melatonin 3 mg 07/14/18 22:00 07/18/18 22:27 Melatonin PO 3 mg HS [facility] Administration Metoprolol Succinate 100 mg/ 150 mg 07/14/18 10:00 07/19/18 15:46 Metoprolol Succinate 50 mg PO 150 mg DAILY [facility] Administration Multivit/Ca Carb/B Cmplx/FA/Prenat 1 tablet 07/14/18 10:00 07/19/18 10:38 Nephro-Misty - PO Not Given DAILY [facility] Oxycodone HCl 10 mg 07/14/18 07:00 07/19/18 06:18 Roxicodone - PO Not Given Q12H [facility] Pantoprazole Sodium 40 mg 07/14/18 10:00 07/19/18 10:38 Protonix - PO Not Given DAILY [facility] Sacubitril/Valsartan 1 tab 07/14/18 10:00 07/19/18 10:38 Entresto 49 Mg-51 Mg Tablet PO Not Given BID [facility] Senna 1 tab 07/14/18 22:00 07/18/18 22:26 Senna - PO 1 tab HS [facility] Administration Sertraline HCl 50 mg 07/14/18 22:00 07/18/18 22:26 Zoloft - PO 50 mg HS [facility] Administration Laboratory Tests 07/15/18 16:35 c-ANCA <1:20 Proteinase 3 (PR3) <3.5 p-ANCA <1:20 Atypical p-ANCA <1:20 Myeloperoxidase Ab <9.0 Glomerular Base Memb Ab 5 Impression 1. ESRD 2. hemoptysis 3. DM 4. CAD 5. PVD 6. DFU 7. anemia 8. hx steal syndrome s/p DRIL procedure 9. CHF 10. pulmonary nodules Plan - HD today, pt tolerated - bronch tomorrow at noon - discussed with pulmonary - vasculitis panel neg - persistent hemoptysis - epogen for anemia - renal diet - will follow
[2018-07-19] MEDS ORDERED: INSULIN (NOVOLOG) ASPART 100 UNITS/ML 10ML VIAL ONE (20:59)
[2018-07-19] MEDS: INSULIN (LEVEMIR) 100 UNITS/ML UNITS SQ SCH (21:29)
[2018-07-19] MEDS: ATORVASTATIN CA 80 MG TABLET (FP) PO SCH (21:30)
[2018-07-19] MEDS: SERTRALINE HCL 50 MG TABLET (FP) PO SCH (21:30)
[2018-07-19] MEDS: SENNOSIDES 8.6MG TABLET (FP) PO SCH (21:30)
[2018-07-19] MEDS: MELATONIN 1 MG TABLET PO SCH (21:31)
[2018-07-20] MEDS: INSULIN SLIDING SCALE (NOVOLOG) 1 VIAL SQ SCH ×4 (06:22→22:03)
[2018-07-20] MEDS: LEVOTHYROXINE NA 25 MCG TABLET (FP) PO SCH ×2 (06:23→10:25)
[2018-07-20] MEDS: ACETAMINOPHEN 325 MG TABLET (FP) PO SCH ×3 (06:23→22:01)
[2018-07-20] MEDS: oxyCODONE HCL 5 MG TABLET PO SCH ×3 (06:23→21:59)
[2018-07-20] MEDS: CALCIUM ACETATE 667 MG CAPSULE (FP) PO SCH ×3 (08:18→17:18)
[2018-07-20] MEDS: METOPROLOL SUCCINATE 100 MG, METOPROLOL SUCCINATE 50 MG PO SCH (10:24)
[2018-07-20] MEDS: SACUBITRIL/VALSARTAN 49 MG-51 MG TABLET PO SCH ×2 (10:24→22:02)
[2018-07-20] MEDS: VITAMIN B COMP W-C 1 EA TABLET PO SCH (10:24)
[2018-07-20] MEDS: PANTOPRAZOLE 40 MG TABLET (FP) PO SCH (10:25)
[2018-07-20] MEDS: CHOLECALCIFEROL (VITAMIN D3) 1,000 UNIT TABLET (FP) PO SCH (10:26)
[2018-07-20] MEDS ORDERED: PT OWN MED DRAWER 7, Y5N ONE ×2 (10:33→20:56)
--- NOTE | 2018-07-20 11:45 | PN ---
Progress Note, Physician History of Present Illness: pulmonary alert,no distress, + hemoptysis earlier dark heme - Current Medication List Current Medications: Active Medications Acetaminophen (Tylenol -) 650 mg PO Q6H PRN PRN Reason: PAIN Last Admin: 07/17/18 18:57 Dose: 650 mg Acetaminophen (Tylenol -) 325 mg PO Q12H [facility] Last Admin: 07/20/18 10:25 Dose: 325 mg Atorvastatin Calcium (Lipitor -) 80 mg PO [facility] Last Admin: 07/19/18 21:30 Dose: 80 mg Calcium Acetate (Phoslo -) 667 mg PO TIDCM [facility] Last Admin: 07/20/18 08:18 Dose: Not Given Cefazolin Sodium/Dextrose (Ancef 2 Gm Premixed Ivpb -) 2 gm IVPB TuTh@1000 [facility] Last Admin: 07/19/18 10:38 Dose: 2 gm Cholecalciferol (Vitamin D3 -) 1,000 unit PO DAILY [facility] Last Admin: 07/20/18 10:26 Dose: Not Given Cefazolin Sodium 3 gm/ (Dextrose) 100 mls @ 200 mls/hr IVPB Sa@1000 [facility] Last Admin: 07/14/18 22:52 Dose: 200 mls/hr Insulin Aspart (Novolog Vial Sliding Scale -) 1 vial SQ [facility]; Protocol Last Admin: 07/20/18 06:22 Dose: Not Given Insulin Detemir (Levemir Vial) 16 units SQ [facility] Last Admin: 07/19/18 21:29 Dose: Not Given Levothyroxine Sodium (Synthroid -) 25 mcg PO DAILY@0700 [facility] Last Admin: 07/20/18 10:25 Dose: 25 mcg Melatonin (Melatonin) 3 mg PO [facility] Last Admin: 07/19/18 21:31 Dose: 3 mg Metoprolol Succinate 100 mg/ (Metoprolol Succinate 50 mg) 150 mg PO DAILY [facility] Last Admin: 07/20/18 10:24 Dose: 150 mg Multivit/Ca Carb/B Cmplx/FA/Prenat (Nephro-Misty -) 1 tablet PO DAILY [facility] Last Admin: 07/20/18 10:24 Dose: 1 tablet Oxycodone HCl (Roxicodone -) 10 mg PO Q12H [facility] Last Admin: 07/20/18 10:25 Dose: 10 mg Pantoprazole Sodium (Protonix -) 40 mg PO DAILY [facility] Last Admin: 07/20/18 10:25 Dose: 40 mg Sacubitril/Valsartan (Entresto 49 Mg-51 Mg Tablet) 1 tab PO BID [facility] Last Admin: 07/20/18 10:24 Dose: 1 tab Senna (Senna -) 1 tab PO HS [facility] Last Admin: 07/19/18 21:30 Dose: 1 tab Sertraline HCl (Zoloft -) 50 mg PO HS [facility] Last Admin: 07/19/18 21:30 Dose: 50 mg - Objective Vital Signs: Vital Signs Temperature 98.1 F 07/20/18 10:00 Pulse Rate 85 07/20/18 10:00 Respiratory Rate 18 07/20/18 10:00 Blood Pressure 163/73 07/20/18 10:00 O2 Sat by Pulse Oximetry (%) 96 07/20/18 09:00 Constitutional: Yes: Well Nourished, Calm Eyes: Yes: WNL HENT: Yes: WNL Neck: Yes: WNL Cardiovascular: Yes: Regular Rate and Rhythm, S1, S2 Respiratory: Yes: CTA Bilaterally Gastrointestinal: Yes: Normal Bowel Sounds, Soft Extremities: Yes: WNL Edema: No Labs: CBC, BMP 07/19/18 07:30 07/19/18 07:30 INR, PTT INR 0.99 (0.83-1.09) 07/13/18 18:19 Problem List - Problems (1) Hemoptysis Code(s): R04.2 - HEMOPTYSIS (2) Hemoptysis Code(s): R04.2 - HEMOPTYSIS (3) ASHD (arteriosclerotic heart disease) Code(s): I25.10 - ATHSCL HEART DISEASE OF [place] CORONARY ARTERY W/O ANG PCTRS (4) ESRD (end stage renal disease) Code(s): N18.6 - END STAGE RENAL DISEASE (5) ICD (implantable cardioverter-defibrillator) in place Code(s): Z95.810 - PRESENCE OF AUTOMATIC (IMPLANTABLE) CARDIAC DEFIBRILLATOR (6) S/P CABG (coronary artery bypass graft) Code(s): Z95.1 - PRESENCE OF AORTOCORONARY BYPASS GRAFT Assessment/Plan A/P Hemoptysis ESRD on HD CAD LV Systolic Dysfunction DM PAD Lung Nodules - inspection bronchoscopy today - monitor/quantify hemoptysis - HD per renal - outpt f/u of lung nodules - DVT prophylaxis DR GAMINO
--- NOTE | 2018-07-20 11:45 | PN ---
Progress Note (short form) - Note Progress Note: pt seen/ examined chart reviewed awake/ comfortable Vital Signs Temp 98.1 F 07/20/18 10:00 Pulse 85 07/20/18 10:00 Resp 18 07/20/18 10:00 BP 163/73 07/20/18 10:00 Pulse Ox 96 07/20/18 09:00 Intake & Output 07/19/18 07/19/18 07/20/18 11:59 23:59 11:59 Intake Total 10 90 Output Total 150 125 Balance -140 90 -125 Weight 137 lb 12.8 oz 134 lb 6.4 oz Intake: IV 10 Saline Lock 10 Oral 0 90 Output: Urine 150 125 Void 150 125 Other: Voiding Method Toilet Urinal Toilet # Unmeasured Voids Void 1 1 Bowel Movement Yes # Bowel Movements 1 Weight Measurement Method Standing Scale Standing Scale Active Medications Acetaminophen (Tylenol -) 650 mg PO Q6H PRN PRN Reason: PAIN Last Admin: 07/17/18 18:57 Dose: 650 mg Acetaminophen (Tylenol -) 325 mg PO Q12H [facility] Last Admin: 07/20/18 10:25 Dose: 325 mg Atorvastatin Calcium (Lipitor -) 80 mg PO [facility] Last Admin: 07/19/18 21:30 Dose: 80 mg Calcium Acetate (Phoslo -) 667 mg PO TIDCM [facility] Last Admin: 07/20/18 08:18 Dose: Not Given Cefazolin Sodium/Dextrose (Ancef 2 Gm Premixed Ivpb -) 2 gm IVPB TuTh@1000 [facility] Last Admin: 07/19/18 10:38 Dose: 2 gm Cholecalciferol (Vitamin D3 -) 1,000 unit PO DAILY [facility] Last Admin: 07/20/18 10:26 Dose: Not Given Cefazolin Sodium 3 gm/ (Dextrose) 100 mls @ 200 mls/hr IVPB Sa@1000 [facility] Last Admin: 07/14/18 22:52 Dose: 200 mls/hr Insulin Aspart (Novolog Vial Sliding Scale -) 1 vial SQ [facility]; Protocol Last Admin: 07/20/18 06:22 Dose: Not Given Insulin Detemir (Levemir Vial) 16 units SQ [facility] Last Admin: 07/19/18 21:29 Dose: Not Given Levothyroxine Sodium (Synthroid -) 25 mcg PO DAILY@0700 [facility] Last Admin: 07/20/18 10:25 Dose: 25 mcg Melatonin (Melatonin) 3 mg PO HS [facility] Last Admin: 07/19/18 21:31 Dose: 3 mg Metoprolol Succinate 100 mg/ (Metoprolol Succinate 50 mg) 150 mg PO DAILY [facility] Last Admin: 07/20/18 10:24 Dose: 150 mg Multivit/Ca Carb/B Cmplx/FA/Prenat (Nephro-Misty -) 1 tablet PO DAILY [facility] Last Admin: 07/20/18 10:24 Dose: 1 tablet Oxycodone HCl (Roxicodone -) 10 mg PO Q12H [facility] Last Admin: 07/20/18 10:25 Dose: 10 mg Pantoprazole Sodium (Protonix -) 40 mg PO DAILY [facility] Last Admin: 07/20/18 10:25 Dose: 40 mg Sacubitril/Valsartan (Entresto 49 Mg-51 Mg Tablet) 1 tab PO BID [facility] Last Admin: 07/20/18 10:24 Dose: 1 tab Senna (Senna -) 1 tab PO HS [facility] Last Admin: 07/19/18 21:30 Dose: 1 tab Sertraline HCl (Zoloft -) 50 mg PO HS [facility] Last Admin: 07/19/18 21:30 Dose: 50 mg CBC, BMP 07/19/18 07:30 07/19/18 07:30 Physical Exam comfortable [id number] Lungs decreased at bases Abd- soft ,NT No edema. PLAN stable empiric antibiotics for Bronch today will follow Problem List - Problems (1) Hemoptysis Code(s): R04.2 - HEMOPTYSIS (2) ASHD (arteriosclerotic heart disease) Code(s): I25.10 - ATHSCL HEART DISEASE OF [place] CORONARY ARTERY W/O ANG PCTRS (3) Chronic HFrEF (heart failure with reduced ejection fraction) Code(s): I50.22 - CHRONIC SYSTOLIC (CONGESTIVE) HEART FAILURE (4) ESRD (end stage renal disease) on dialysis Code(s): N18.6 - END STAGE RENAL DISEASE; Z99.2 - DEPENDENCE ON RENAL DIALYSIS
[2018-07-20] MEDS ORDERED: LIDOCAINE HCL 4% PRESERVE-FREE 5 ML AMP ONE (11:57)
[2018-07-20] MEDS ORDERED: MIDAZOLAM HCL 2 MG/2 ML SINGLE DOSE VIAL ONE ×2 (12:06)
--- NOTE | 2018-07-20 14:34 | PROC ---
Procedure Note Procedure: Bilateral Fiber Optic Bronchoscopy Under informed consent a bilateral FOB was performed under conscious sedation. The airway was prepped by anesthesia. An oral guard was inserted an the bronchoscope was inserted into the airway via the device. Copious but thin secretions were noted. The epiglottis and vocal cords were noted. Vocal cords were moving well. The bronchoscope was advance into the trachea. Again noted was thin, copious secretions admixed with dry and minimal fresh blood. At the bifircation of the right mainstem bronchus and collection of mucous and dried blood was noted. It was washed and suctioned away. Inspection bronchoscopy was then performed in the remainder of the airways. Thin secretions with mostly dried blood was noted. No endobronchial lesions were noted. The bronchoscope was withdrawn from the patient without incident. He was transferred to the PACU in stable condition. There is no Pulmonary contraindication for discharge with outpatient follow up of his pulmonary nodules. Dr Ramos
--- NOTE | 2018-07-20 15:51 | PN ---
Progress Note, Physician History of Present Illness: Pt seen and examined at bedside. He had bronchoscopy today. He denies shortness of breath. - Current Medication List Current Medications: Active Medications Acetaminophen (Tylenol -) 650 mg PO Q6H PRN PRN Reason: PAIN Last Admin: 07/17/18 18:57 Dose: 650 mg Acetaminophen (Tylenol -) 325 mg PO Q12H [facility] Last Admin: 07/20/18 10:25 Dose: 325 mg Atorvastatin Calcium (Lipitor -) 80 mg PO [facility] Last Admin: 07/19/18 21:30 Dose: 80 mg Calcium Acetate (Phoslo -) 667 mg PO TIDCM [facility] Last Admin: 07/20/18 11:46 Dose: Not Given Cefazolin Sodium/Dextrose (Ancef 2 Gm Premixed Ivpb -) 2 gm IVPB TuTh@1000 [facility] Last Admin: 07/19/18 10:38 Dose: 2 gm Cholecalciferol (Vitamin D3 -) 1,000 unit PO DAILY [facility] Last Admin: 07/20/18 10:26 Dose: Not Given Cefazolin Sodium 3 gm/ (Dextrose) 100 mls @ 200 mls/hr IVPB Sa@1000 [facility] Last Admin: 07/14/18 22:52 Dose: 200 mls/hr Insulin Aspart (Novolog Vial Sliding Scale -) 1 vial SQ [facility]; Protocol Last Admin: 07/20/18 11:45 Dose: Not Given Insulin Detemir (Levemir Vial) 16 units SQ [facility] Last Admin: 07/19/18 21:29 Dose: Not Given Levothyroxine Sodium (Synthroid -) 25 mcg PO DAILY@0700 [facility] Last Admin: 07/20/18 10:25 Dose: 25 mcg Melatonin (Melatonin) 3 mg PO [facility] Last Admin: 07/19/18 21:31 Dose: 3 mg Metoprolol Succinate 100 mg/ (Metoprolol Succinate 50 mg) 150 mg PO DAILY [facility] Last Admin: 07/20/18 10:24 Dose: 150 mg Multivit/Ca Carb/B Cmplx/FA/Prenat (Nephro-Misty -) 1 tablet PO DAILY [facility] Last Admin: 07/20/18 10:24 Dose: 1 tablet Oxycodone HCl (Roxicodone -) 10 mg PO Q12H [facility] Last Admin: 07/20/18 10:25 Dose: 10 mg Pantoprazole Sodium (Protonix -) 40 mg PO DAILY [facility] Last Admin: 07/20/18 10:25 Dose: 40 mg Sacubitril/Valsartan (Entresto 49 Mg-51 Mg Tablet) 1 tab PO BID [facility] Last Admin: 07/20/18 10:24 Dose: 1 tab Senna (Senna -) 1 tab PO HS [facility] Last Admin: 07/19/18 21:30 Dose: 1 tab Sertraline HCl (Zoloft -) 50 mg PO HS [facility] Last Admin: 07/19/18 21:30 Dose: 50 mg - Objective Vital Signs: Vital Signs Temperature 98.6 F 07/20/18 14:30 Pulse Rate 84 07/20/18 14:30 Respiratory Rate 16 07/20/18 14:30 Blood Pressure 129/65 07/20/18 14:30 O2 Sat by Pulse Oximetry (%) 100 07/20/18 14:15 Constitutional: Yes: Calm Eyes: Yes: Conjunctiva Clear HENT: Yes: Atraumatic Cardiovascular: Yes: S1, S2 Respiratory: Yes: CTA Bilaterally Gastrointestinal: Yes: Soft Genitourinary: Yes: WNL Musculoskeletal: Yes: WNL Edema: No Neurological: Yes: Oriented Psychiatric: Yes: Oriented Labs: CBC, BMP 07/19/18 07:30 07/19/18 07:30 INR, PTT INR 0.99 (0.83-1.09) 07/13/18 18:19 Problem List - Problems (1) Hemoptysis Code(s): R04.2 - HEMOPTYSIS (2) ESRD (end stage renal disease) Code(s): N18.6 - END STAGE RENAL DISEASE Assessment/Plan Current Medications Generic Name Dose Route Start Last Admin Trade Name Freq PRN Reason Stop Dose Admin Acetaminophen 650 mg 07/14/18 01:25 07/17/18 18:57 Tylenol - PO 650 mg Q6H PRN Administration PAIN Acetaminophen 325 mg 07/14/18 07:00 07/20/18 10:25 Tylenol - PO 325 mg Q12H [facility] Administration Atorvastatin Calcium 80 mg 07/14/18 22:00 07/19/18 21:30 Lipitor - PO 80 mg HS [facility] Administration Calcium Acetate 667 mg 07/14/18 08:00 07/20/18 11:46 Phoslo - PO Not Given TIDCM [facility] Cefazolin Sodium/Dextrose 2 gm 07/19/18 08:31 07/19/18 10:38 Ancef 2 Gm Premixed Ivpb - IVPB 2 gm TuTh@1000 [facility] Administration Cholecalciferol 1,000 unit 07/14/18 10:00 07/20/18 10:26 Vitamin D3 - PO Not Given DAILY [facility] Cefazolin Sodium 3 gm/ 100 mls @ 200 mls/hr 07/14/18 20:15 07/14/18 22:52 Dextrose IVPB 200 mls/hr Sa@1000 [facility] Administration Insulin Aspart 1 vial 07/14/18 07:00 07/20/18 11:45 Novolog Vial Sliding Scale - SQ Not Given ACHS [facility] Protocol Insulin Detemir 16 units 07/14/18 22:00 07/19/18 21:29 Levemir Vial SQ Not Given HS [facility] Levothyroxine Sodium 25 mcg 07/14/18 07:00 07/20/18 10:25 Synthroid - PO 25 mcg DAILY@0700 [facility] Administration Melatonin 3 mg 07/14/18 22:00 07/19/18 21:31 Melatonin PO 3 mg HS [facility] Administration Metoprolol Succinate 100 mg/ 150 mg 07/14/18 10:00 07/20/18 10:24 Metoprolol Succinate 50 mg PO 150 mg DAILY [facility] Administration Multivit/Ca Carb/B Cmplx/FA/Prenat 1 tablet 07/14/18 10:00 07/20/18 10:24 Nephro-Misty - PO 1 tablet DAILY [facility] Administration Oxycodone HCl 10 mg 07/14/18 07:00 07/20/18 10:25 Roxicodone - PO 10 mg Q12H [facility] Administration Pantoprazole Sodium 40 mg 07/14/18 10:00 07/20/18 10:25 Protonix - PO 40 mg DAILY [facility] Administration Sacubitril/Valsartan 1 tab 07/14/18 10:00 07/20/18 10:24 Entresto 49 Mg-51 Mg Tablet PO 1 tab BID [facility] Administration Senna 1 tab 07/14/18 22:00 07/19/18 21:30 Senna - PO 1 tab HS [facility] Administration Sertraline HCl 50 mg 07/14/18 22:00 07/19/18 21:30 Zoloft - PO 50 mg HS [facility] Administration Impression 1. ESRD 2. hemoptysis 3. DM 4. CAD 5. PVD 6. DFU 7. anemia 8. hx steal syndrome s/p DRIL procedure 9. CHF 10. pulmonary nodules Plan - s/p bronch - next HD tomorrow, he has HD scheduled as outpt - vasculitis panel neg - epogen for anemia - renal diet - will follow
[2018-07-20] MEDS: ATORVASTATIN CA 80 MG TABLET (FP) PO SCH (22:02)
[2018-07-20] MEDS: INSULIN (LEVEMIR) 100 UNITS/ML UNITS SQ SCH (22:02)
[2018-07-20] MEDS: MELATONIN 1 MG TABLET PO SCH (22:02)
[2018-07-20] MEDS: SENNOSIDES 8.6MG TABLET (FP) PO SCH (22:03)
[2018-07-20] MEDS: SERTRALINE HCL 50 MG TABLET (FP) PO SCH (22:03)
[2018-07-21 00:12] LABS: HBSAG SCREEN Negative (Negative); HEP A AB, IGM Negative (Negative); HEP B CORE AB, TOT Negative (Negative)
[2018-07-21] MEDS: ACETAMINOPHEN 325 MG TABLET (FP) PO SCH (06:29)
[2018-07-21] MEDS: INSULIN SLIDING SCALE (NOVOLOG) 1 VIAL SQ SCH ×3 (06:33→16:57)
[2018-07-21] MEDS: LEVOTHYROXINE NA 25 MCG TABLET (FP) PO SCH (06:34)
[2018-07-21] MEDS ORDERED: SODIUM CHLORIDE 250 ML IV PRN (08:24)
[2018-07-21] MEDS: CALCIUM ACETATE 667 MG CAPSULE (FP) PO SCH ×4 (09:10→16:57)
[2018-07-21] MEDS: CEFAZOLIN 3 GM in DEXTROSE 5%-WATER - 100 ML IVPB SCH (09:10)
[2018-07-21] MEDS: PANTOPRAZOLE 40 MG TABLET (FP) PO SCH ×2 (09:11→13:15)
[2018-07-21] MEDS: VITAMIN B COMP W-C 1 EA TABLET PO SCH ×2 (09:11→13:15)
[2018-07-21] MEDS: SACUBITRIL/VALSARTAN 49 MG-51 MG TABLET PO SCH (09:11)
[2018-07-21] MEDS: CHOLECALCIFEROL (VITAMIN D3) 1,000 UNIT TABLET (FP) PO SCH ×2 (09:12→13:15)
[2018-07-21] MEDS: METOPROLOL SUCCINATE 100 MG, METOPROLOL SUCCINATE 50 MG PO SCH ×2 (09:12→13:16)
[2018-07-21] MEDS ORDERED: EPOETIN ALFA 3,000 UNIT/1 ML ML IVPUSH ONE (10:00)
[2018-07-21 10:15] LABS: HEMATOCRIT 31.2 % (35.4-49); MCH 28.2 pg (25.7-33.7); MCHC 31.9 g/dl (32.0-35.9); MEAN CELL VOLUME 88.4 fl (80-96); MEAN PLT VOLUME 9.1 fl (7.5-11.1); PLATELET COUNT 164 K/MM3 (134-434); RBC 3.53 M/mm3 (4.00-5.60); RDW 18.1 % (11.9-15.9); WHITE BLOOD COUNT 7.9 K/mm3 (4.0-10.0)
[2018-07-21 10:21] LABS: BLOOD UREA NITROGEN 32 mg/dL (7-18); CREATININE 6.6 mg/dL (0.55-1.3); GLUCOSE,RANDOM 171 mg/dL (74-106)
[2018-07-21 10:22] LABS: ANION GAP 5 MMOL/L (8-16); CALCIUM 8.4 mg/dL (8.5-10.1); CHLORIDE 102 mmol/L (98-107); CO2 29 mmol/L (21-32); POTASSIUM 4.7 mmol/L (3.5-5.1); SODIUM 135 mmol/L (136-145)
--- NOTE | 2018-07-21 11:29 | PN ---
Progress Note (short form) - Note Progress Note: RENAL pt currently on hemodialysis no complaints, no longer with hemoptysis Last Vital Signs Temp Pulse Resp BP Pulse Ox 98.0 F 82 18 148/68 95 07/21/18 05:00 07/21/18 10:20 07/21/18 10:20 07/21/18 10:20 07/21/18 08:10 lungs clear anteriorly cvs s1s2 rr abd soft ext no edema neuro confused CBC, BMP 07/21/18 09:20 07/21/18 09:20 Current Medications Generic Name Dose Route Start Last Admin Trade Name Freq PRN Reason Stop Dose Admin Acetaminophen 650 mg 07/14/18 01:25 07/17/18 18:57 Tylenol - PO 650 mg Q6H PRN Administration PAIN Acetaminophen 325 mg 07/14/18 07:00 07/21/18 06:29 Tylenol - PO Not Given Q12H [facility] Atorvastatin Calcium 80 mg 07/14/18 22:00 07/20/18 22:02 Lipitor - PO 80 mg HS [facility] Administration Calcium Acetate 667 mg 07/14/18 08:00 07/21/18 09:10 Phoslo - PO Not Given TIDCM [facility] Cefazolin Sodium/Dextrose 2 gm 07/19/18 08:31 07/19/18 10:38 Ancef 2 Gm Premixed Ivpb - IVPB 2 gm TuTh@1000 [facility] Administration Cholecalciferol 1,000 unit 07/14/18 10:00 07/21/18 09:12 Vitamin D3 - PO Not Given DAILY [facility] Cefazolin Sodium 3 gm/ 100 mls @ 200 mls/hr 07/14/18 20:15 07/21/18 09:10 Dextrose IVPB Not Given Sa@1000 [facility] Sodium Chloride 250 mls @ 3,000 mls/hr 07/21/18 08:24 Normal Saline - IV 07/22/18 08:23 PRN PRN Hypotension during Dialysis Insulin Aspart 1 vial 07/14/18 07:00 07/21/18 06:33 Novolog Vial Sliding Scale - SQ Not Given ACHS [facility] Protocol Insulin Detemir 16 units 07/14/18 22:00 07/20/18 22:02 Levemir Vial SQ 16 units HS [facility] Administration Levothyroxine Sodium 25 mcg 07/14/18 07:00 07/21/18 06:34 Synthroid - PO 25 mcg DAILY@0700 [facility] Administration Melatonin 3 mg 07/14/18 22:00 07/20/18 22:02 Melatonin PO 3 mg HS [facility] Administration Metoprolol Succinate 100 mg/ 150 mg 07/14/18 10:00 07/21/18 09:12 Metoprolol Succinate 50 mg PO Not Given DAILY [facility] Multivit/Ca Carb/B Cmplx/FA/Prenat 1 tablet 07/14/18 10:00 07/21/18 09:11 Nephro-Misty - PO Not Given DAILY [facility] Pantoprazole Sodium 40 mg 07/14/18 10:00 07/21/18 09:11 Protonix - PO Not Given DAILY [facility] Sacubitril/Valsartan 1 tab 07/14/18 10:00 07/21/18 09:11 Entresto 49 Mg-51 Mg Tablet PO Not Given BID [facility] Senna 1 tab 07/14/18 22:00 07/20/18 22:03 Senna - PO 1 tab HS [facility] Administration Sertraline HCl 50 mg 07/14/18 22:00 07/20/18 22:03 Zoloft - PO 50 mg HS [facility] Administration Impression 1. ESRD 2. hemoptysis- probably from bronchitis 3. DM 4. CAD 5. PVD 6. DFU 7. anemia 8. hx steal syndrome s/p DRIL procedure 9. CHF 10. pulmonary nodules Plan - s/p bronch - vasculitis panel neg - epogen for anemia - renal diet [facility]
--- NOTE | 2018-07-21 13:11 | DS ---
Physical Examination Vital Signs: Vital Signs Temperature 98.0 F 07/21/18 05:00 Pulse Rate 82 07/21/18 10:20 Respiratory Rate 18 07/21/18 10:20 Blood Pressure 148/68 07/21/18 10:20 O2 Sat by Pulse Oximetry (%) 95 07/21/18 08:10 Findings/Remarks: pt seen in dialysis . no complains feels well s/p bronch yesterday--- findings noted--discussed with Dr. Franks Dry blood-- no lesions Constitutional: Yes: No Distress Neck: Yes: Supple Cardiovascular: Yes: Regular Rate and Rhythm Respiratory: Yes: Diminished Gastrointestinal: Yes: Soft Edema: No Wound/Incision: Yes: Clean/Dry, Other (amputation site) Neurological: Yes: Alert Labs: CBC, BMP 07/21/18 09:20 07/21/18 09:20 Discharge Summary Reason For Visit: HEMOPTYSIS Current Active Problems Hemoptysis (Acute) Hemoptysis (Acute) Hospital Course: This is a 72 year old male with a significant past medical history of CAD and PVD on ASA, plavix and heparin, CHF, HTN, DM, ESRD who presented to the ED after several episodes of spitting up blood. Pt reports that he otherwise isn't coughing. He reports the sensation of it building up and then tickling and needing to cough. He then coughs up about a quarter sized blood clot. pt admitted -- cta -- lung nodules underwent Bronch-- No Endovascular lesions stable will d/c to detention today Meds reconcilled Need Pulmonary f/u Also need Repeat t Ct Chest in 3 Months -- F/u on Lung Nodules. Discussed with pt also as well as with Nursing staff . Condition: Good - Instructions Diet, Activity, Other Instructions: return to the Ed for continued coughing up blood, severe shortness of breath, chest pain, pain with fever, lightheadness, passing out. We did not find the cause for your bleeding today. The CT scan of your lungs was negative. 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 You must get your dialysis tomorrow. Make sure to let them know that you had a CT scan with contrast. Disposition[facility] - Home Medications Comprehensive Discharge Medication List: Ambulatory Orders Acetaminophen 650 mg PO Q4H PRN 02/28/18 Aspirin [ASA -] 81 mg PO DAILY 02/28/18 Atorvastatin Ca [Lipitor] 80 mg PO HS 02/28/18 Calcium Acetate [Phoslo -] 667 mg PO TIDCM 02/28/18 Clopidogrel Bisulfate [Plavix -] 75 mg PO DAILY 02/28/18 Insulin Glargine,Hum.rec.anlog [Lantus] 16 unit SQ HS 02/28/18 Levothyroxine [Synthroid -] 25 mcg PO DAILY 02/28/18 Metoprolol Succinate [Toprol Xl] 150 mg PO DAILY 02/28/18 Pantoprazole Sodium 40 mg PO DAILY 02/28/18 Sennosides [Senna -] 1 tab PO HS 02/28/18 Sertraline HCl [Zoloft -] 50 mg PO HS 02/28/18 Heparin - 5,000 unit SQ BID #1 vial 03/10/18 Albuterol 0.083% Nebulizer Yessi [Ventolin 0.083% Nebulizer Soln -] 1 amp IN Q8H PRN 03/28/18 Sacubitril/Valsartan [Entresto 49 mg-51 mg Tablet] 1 tab PO BID #60 tablet 04/05 Melatonin 3 mg PO HS 04/21/18 Cefazolin 2 gm/D5w [Ancef 2 gm Premixed Ivpb -] 2 gm IV Q48H #30 ml 06/28/18 Cefazolin [Ancef] 3 gm IV WEEKLY 07/13/18 Cholecalciferol (Vitamin D3) [Vitamin D3] 1,000 unit PO DAILY 07/13/18 Insulin Sliding Scale [Novolog Vial Sliding Scale -] 0 units SQ BID 07/13/18 Oxycodone HCl/Acetaminophen [Percocet 10-325 mg Tablet] 1 each PO BID 07/13/18 Vitamin B Comp W-C [Nephro-Misty -] 1 tablet PO DAILY 07/13/18 Vit A/Vitamin D3/E/Aloe V/Zinc [Periguard Ointment] 5 gm TP TID 07/14/18
--- NOTE | 2018-07-21 14:33 | PN ---
Progress Note (short form) - Note Progress Note: No further hemoptysis. Cough has overall improved. Intake & Output 07/18/18 07/19/18 07/20/18 07/21/18 23:59 23:59 23:59 23:59 Intake Total 900 100 110 550 Output Total 150 325 100 Balance 900 -50 -215 450 Weight 137 lb 12.8 oz 134 lb 6.4 oz 139 lb 3.2 oz Last Vital Signs Temp Pulse Resp BP Pulse Ox 98.0 F 90 18 130/60 95 07/21/18 05:00 07/21/18 12:30 07/21/18 12:30 07/21/18 12:30 07/21/18 08:10 Active Medications Acetaminophen (Tylenol -) 650 mg PO Q6H PRN PRN Reason: PAIN Last Admin: 07/17/18 18:57 Dose: 650 mg Acetaminophen (Tylenol -) 325 mg PO Q12H [facility] Last Admin: 07/21/18 06:29 Dose: Not Given Atorvastatin Calcium (Lipitor -) 80 mg PO [facility] Last Admin: 07/20/18 22:02 Dose: 80 mg Calcium Acetate (Phoslo -) 667 mg PO TIDCM [facility] Last Admin: 07/21/18 13:15 Dose: 667 mg Cefazolin Sodium/Dextrose (Ancef 2 Gm Premixed Ivpb -) 2 gm IVPB TuTh@1000 [facility] Last Admin: 07/19/18 10:38 Dose: 2 gm Cholecalciferol (Vitamin D3 -) 1,000 unit PO DAILY [facility] Last Admin: 07/21/18 13:15 Dose: 1,000 unit Cefazolin Sodium 3 gm/ (Dextrose) 100 mls @ 200 mls/hr IVPB Sa@1000 [facility] Last Admin: 07/21/18 09:10 Dose: Not Given Sodium Chloride (Normal Saline -) 250 mls @ 3,000 mls/hr IV PRN PRN PRN Reason: Hypotension during Dialysis Stop: 07/22/18 08:23 Insulin Aspart (Novolog Vial Sliding Scale -) 1 vial SQ [facility]; Protocol Last Admin: 07/21/18 11:33 Dose: Not Given Insulin Detemir (Levemir Vial) 16 units SQ [facility] Last Admin: 07/20/18 22:02 Dose: 16 units Levothyroxine Sodium (Synthroid -) 25 mcg PO DAILY@0700 [facility] Last Admin: 07/21/18 06:34 Dose: 25 mcg Melatonin (Melatonin) 3 mg PO [facility] Last Admin: 07/20/18 22:02 Dose: 3 mg Metoprolol Succinate 100 mg/ (Metoprolol Succinate 50 mg) 150 mg PO DAILY [facility] Last Admin: 07/21/18 13:16 Dose: 150 mg Multivit/Ca Carb/B Cmplx/FA/Prenat (Nephro-Misty -) 1 tablet PO DAILY [facility] Last Admin: 07/21/18 13:15 Dose: 1 tablet Pantoprazole Sodium (Protonix -) 40 mg PO DAILY [facility] Last Admin: 07/21/18 13:15 Dose: 40 mg Sacubitril/Valsartan (Entresto 49 Mg-51 Mg Tablet) 1 tab PO BID [facility] Last Admin: 07/21/18 09:11 Dose: Not Given Senna (Senna -) 1 tab PO [facility] Last Admin: 07/20/18 22:03 Dose: 1 tab Sertraline HCl (Zoloft -) 50 mg PO [facility] Last Admin: 07/20/18 22:03 Dose: 50 mg Constitutional: Yes: Well Nourished, Calm Eyes: Yes: WNL HENT: Yes: WNL Neck: Yes: WNL Cardiovascular: Yes: Regular Rate and Rhythm, S1, S2 Respiratory: Yes: few scattered rhonchi Gastrointestinal: Yes: Normal Bowel Sounds, Soft Extremities: Yes: WNL Edema: No Labs: Laboratory Results - last 24 hr 07/19/18 07/20/18 07/21/18 08:40 21:23 03:21 WBC RBC Hgb Hct MCV MCH MCHC RDW Plt Count MPV Sodium Potassium Chloride Carbon Dioxide Anion Gap BUN Creatinine Creat Clearance w eGFR POC Glucometer 202 66 Random Glucose Calcium Hep A IgM Ab Confirm Negative Hepatitis A Ab Total Positive H Hep Bs Antigen Negative Hep Bs Antibody Reactive Hep B Core Total Ab Negative 07/21/18 07/21/18 07/21/18 04:19 06:32 09:20 WBC 7.9 RBC 3.53 L Hgb 10.0 L Hct 31.2 L MCV 88.4 MCH 28.2 MCHC 31.9 L RDW 18.1 H Plt Count 164 MPV 9.1 Sodium Potassium Chloride Carbon Dioxide Anion Gap BUN Creatinine Creat Clearance w eGFR POC Glucometer 107 98 Random Glucose Calcium Hep A IgM Ab Confirm Hepatitis A Ab Total Hep Bs Antigen Hep Bs Antibody Hep B Core Total Ab 07/21/18 09:20 WBC RBC Hgb Hct MCV MCH MCHC RDW Plt Count MPV Sodium 135 L Potassium 4.7 Chloride 102 Carbon Dioxide 29 Anion Gap 5 L BUN 32 H Creatinine 6.6 H Creat Clearance w eGFR 8.32 POC Glucometer Random Glucose 171 H Calcium 8.4 L Hep A IgM Ab Confirm Hepatitis A Ab Total Hep Bs Antigen Hep Bs Antibody Hep B Core Total Ab Problem List - Problems (1) Hemoptysis Code(s): R04.2 - HEMOPTYSIS (2) Hemoptysis Code(s): R04.2 - HEMOPTYSIS (3) ASHD (arteriosclerotic heart disease) Code(s): I25.10 - ATHSCL HEART DISEASE OF [place] CORONARY ARTERY W/O ANG PCTRS (4) ESRD (end stage renal disease) Code(s): N18.6 - END STAGE RENAL DISEASE (5) ICD (implantable cardioverter-defibrillator) in place Code(s): Z95.810 - PRESENCE OF AUTOMATIC (IMPLANTABLE) CARDIAC DEFIBRILLATOR (6) S/P CABG (coronary artery bypass graft) Code(s): Z95.1 - PRESENCE OF AORTOCORONARY BYPASS GRAFT Assessment/Plan Resolved Hemoptysis ESRD on HD CAD LV Systolic Dysfunction DM PAD Lung Nodules S/P inspection bronchoscopy today Will need repeat CT as an outpatient No smoking HD per renal No Pulmonary contraindication for D/C Dr Ramos
[2018-07-21 20:03] VITALS: BP 142/65; PULSE 82; TEMP 98.8
== END 2018-07-21 17:48 | DRG 204 ==
LOC: SUPCPDRO 17:06 → JER 17:06 → JERBED 23:50 → UNDOADMOB 07-14 01:03 → JERBED 07-14 01:03 → J5S 07-14 06:50 → OBSVTOIN 07-16 15:06 → J4W 07-18 12:23
PROVIDERS: ADMIT Internal Medicine; ATTEND Internal Medicine
PROC: 5A1D70Z Performance of Urinary Filtration, Intermittent, Less than 6 Hours Per Day (ICD-10-PCS; 2018-07-17)
PROC: 0B938ZZ Drainage of Right Main Bronchus, Via Natural or Artificial Opening Endoscopic (ICD-10-PCS; principal; 2018-07-20 12:00)
DX: R04.2 Hemoptysis (principal); N18.6 End stage renal disease; I13.2 Hypertensive heart and chronic kidney disease with heart failure and with stage 5 chronic kidney disease, or end stage renal disease; M86.9 Osteomyelitis, unspecified; Z99.2 Dependence on renal dialysis; I25.10 Atherosclerotic heart disease of native coronary artery without angina pectoris; Z95.1 Presence of aortocoronary bypass graft; E78.5 Hyperlipidemia, unspecified; E03.9 Hypothyroidism, unspecified; I73.9 Peripheral vascular disease, unspecified; Z89.412 Acquired absence of left great toe; Z87.891 Personal history of nicotine dependence; Z79.4 Long term (current) use of insulin; I25.5 Ischemic cardiomyopathy; R63.4 Abnormal weight loss; Z68.20 Body mass index [BMI] 20.0-20.9, adult; R91.8 Other nonspecific abnormal finding of lung field; D64.9 Anemia, unspecified; R76.8 Other specified abnormal immunological findings in serum
CPT/HCPCS: 36415; 71275-TC; 80048; 80053; 82962; 83516; 83520; 83735; 84100; 84443; 85025; 85027; 85610; 86256; 86480; 86704; 86706; 86708; 86803; 86850; 86900; 86901; 87070; 87077; 87116; 87205; 87206; 87340; 93005; 93010; 93971-TC; 94760; 99283-25; G0378; J0885

== ENCOUNTER 2018-07-26 18:19 | Observation (INO) | payer OTHER ==
--- NOTE | 2018-07-26 19:36 | PDOC ---
Attending Attestation - HPI HPI: 07/26/18 20:28 The patient is a 72 year old female, with a significant past medical history of CAD s/p CABG, HTN, HLD, hypothyroidism, PVD s/p left great toe amputation, and ESRD on HD //Satm s/p recent admission for hemoptysis and discharged on , who presents to the emergency department from [facility], accompanied by niece for evaluation of AMS for 2 days. The niece reports the patient is AAOx3 at baseline, however, is AAOx1 today. She also reports the patient has been hallucinating today. The family denies any recent falls or LOC. Allergies: gabapentin Past surgical history: s/p left great toe amputation Social history: One pack per day 59 years, quit 13 years ago - Physicial Exam PE: 07/26/18 20:28 GENERAL: (+) Awake, alert, and oriented to place, in no acute distress HEAD: No signs of trauma EYES: PERRLA, EOMI, sclera anicteric, conjunctiva clear ENT: Auricles normal inspection, hearing grossly normal, nares patent, oropharynx clear without exudates. Moist mucosa NECK: Normal ROM, supple, no lymphadenopathy, JVD, or masses LUNGS: Breath sounds equal, clear to auscultation bilaterally. No wheezes, and no crackles HEART: Regular rate and rhythm, normal S1 and S2, no murmurs, rubs or gallops ABDOMEN: Soft, nontender, normoactive bowel sounds. No guarding, no rebound. No masses EXTREMITIES: (+) left foot s/p great toe amputation with mild surrounding erythema. No tenderness or increased warmth. No streaking. Normal range of motion, no edema. No clubbing or cyanosis. No cords, tenderness NEUROLOGICAL: (+) AAOx place. Cranial nerves II through XII grossly intact. Normal speech, gait unassessed. SKIN: Warm, Dry, normal turgor, no rashes or lesions noted. - Medical Decision Making 07/26/18 20:30 Documentation prepared by Sharon Lara, acting as medical social consultant for Debra Weathers MD,
[2018-07-26] MEDS ORDERED: VANCOMYCIN 1,000 MG in DEXTROSE 5%-WATER - 250 ML IVPB ONE (20:19)
[2018-07-26] MEDS ORDERED: PIPERACILLIN/TAZOB 3.375 GM 3.375 GM in DEXTROSE 5%-WATER - 50 ML IVPB ONE (20:20)
[2018-07-26 20:31] LABS: VENOUS PC02 54.7 mmHg (38-52); VENOUS PH 7.4 (7.32-7.42)
[2018-07-26 20:32] LABS: VENOUS PO2 25.8 mmHg (28-48)
[2018-07-26] MEDS ORDERED: VANCOMYCIN 1 GRAM (PRE-DOCKED) 1,000 MG/250 ML BAG IVPB ONE (20:34)
[2018-07-26] MEDS ORDERED: PIPERACILLIN/TAZOB 3.375 GM 3.375 GM/50 ML BAG IVPB ONE (20:35)
[2018-07-26 20:39] LABS: BASO % 0.9 % (0-2.0); EOS % 2.2 % (0-4.5); HEMATOCRIT 31.6 % (35.4-49); HEMOGLOBIN 10.2 GM/dL (11.7-16.9); LYMPH % 10.1 % (8-40); MCH 28.4 pg (25.7-33.7); MCHC 32.3 g/dl (32.0-35.9); MEAN CELL VOLUME 87.9 fl (80-96); MEAN PLT VOLUME 9.4 fl (7.5-11.1); MONO % 10.6 % (3.8-10.2); NEUT % 76.2 % (42.8-82.8); PLATELET COUNT 201 K/MM3 (134-434); RDW 18.5 % (11.9-15.9); WHITE BLOOD COUNT 6.1 K/mm3 (4.0-10.0)
--- NOTE | 2018-07-26 20:58 | PDOC ---
History of Present Illness - General Chief Complaint: Altered Mental Status Stated Complaint: ALT MENTAL STATUS Time Seen by Provider: 07/26/18 19:27 History Source: Patient, Other (Niece who is also his health care proxy) Exam Limitations: No Limitations - History of Present Illness Initial Comments: 07/26/18 20:22 72 yo male from [facility] CAD, CABG, HTN, HLD, type 2 diabetes, hypothyroid, PVD with L great toe amputation, ESRD (dialysis , , Mon, received dialysis today) and a recent admission for hemoptysis (bronchoscopy done monday) presents to the ED with 2 days change in mental status. Pt at baseline AOX3, today at [facility] AOX1 with no new or recent complaint. Pt niece states he has had a similar change in mental status after starting neurontin and believes after starting oxycodone on 07/21 after great toe amputation, it may be playing a role in his new mental status change. BG 101, rectal temp 98.6. Past History - Past Medical History Allergies/Adverse Reactions: Allergies Allergy/AdvReac Type Severity Reaction Status Date / Time gabapentin [From Neurontin] AdvReac Verified 07/13/18 17:19 Home Medications: Ambulatory Orders Acetaminophen 650 mg PO Q4H PRN 02/28/18 Aspirin [ASA -] 81 mg PO DAILY 02/28/18 Atorvastatin Ca [Lipitor] 80 mg PO HS 02/28/18 Calcium Acetate [Phoslo -] 667 mg PO TIDCM 02/28/18 Clopidogrel Bisulfate [Plavix -] 75 mg PO DAILY 02/28/18 Insulin Glargine,Hum.rec.anlog [Lantus] 16 unit SQ HS 02/28/18 Levothyroxine [Synthroid -] 25 mcg PO DAILY 02/28/18 Metoprolol Succinate [Toprol Xl] 150 mg PO DAILY 02/28/18 Pantoprazole Sodium 40 mg PO DAILY 02/28/18 Sennosides [Senna -] 1 tab PO HS 02/28/18 Sertraline HCl [Zoloft -] 50 mg PO HS 02/28/18 Heparin - 5,000 unit SQ BID #1 vial 03/10/18 Albuterol 0.083% Nebulizer Yessi [Ventolin 0.083% Nebulizer Soln -] 1 amp IN Q8H PRN 03/28/18 Sacubitril/Valsartan [Entresto 49 mg-51 mg Tablet] 1 tab PO BID #60 tablet 04/05 Melatonin 3 mg PO HS 04/21/18 Cefazolin 2 gm/D5w [Ancef 2 gm Premixed Ivpb -] 2 gm IV Q48H #30 ml 06/28/18 Cefazolin [Ancef] 3 gm IV WEEKLY 07/13/18 Cholecalciferol (Vitamin D3) [Vitamin D3] 1,000 unit PO DAILY 07/13/18 Insulin Sliding Scale [Novolog Vial Sliding Scale -] 0 units SQ BID 07/13/18 Oxycodone HCl/Acetaminophen [Percocet 10-325 mg Tablet] 1 each PO BID 07/13/18 Vitamin B Comp W-C [Nephro-Misty -] 1 tablet PO DAILY 07/13/18 Vit A/Vitamin D3/E/Aloe V/Zinc [Periguard Ointment] 5 gm TP TID 07/14/18 Cardiac Disorders: Yes (AFIB, ASHD, CAD, ND,stent) COPD: Yes CHF: Yes (CHF, Acute pulmonary edema, bronchospasm) Dementia: Yes (pt verbalizing he is forgetful some times) Diabetes: Yes (Type 2) Dialysis: Yes GI Disorders: Yes (GIB, constipation, salmonella,) Disorders: Yes (ERSD dyaliis on -mon) HTN: Yes Hypercholesterolemia: Yes Liver Disease: Yes (DIC) Psychiatric Problems: Yes (depression, dementia) Thyroid Disease: Yes (Hypothyroidism) - Surgical History Cardiac Surgery: Yes (CABG x 3, PPM, Defibrillator) Orthopedic Surgery: Yes (ORIF-Rt Hip, left great toe amputation) - Suicide/Smoking/Psychosocial Hx Smoking History: Former smoker Have you smoked in the past 12 months: No Number of Cigarettes Smoked Daily: 5 If you are a former smoker, when did you quit?: 2004 Information on smoking cessation initiated: No Hx Alcohol Use: No (as per daughter) Drug/Substance Use Hx: No (as per daughter) Substance Use Type: None Hx Substance Use Treatment: No Review of Systems - Review of Systems Able to Perform ROS?: No (altered MS) *Physical Exam - Vital Signs Last Vital Signs Temp Pulse Resp BP Pulse Ox 100.2 F H 80 16 159/94 100 07/26/18 18:58 07/26/18 18:58 07/26/18 18:58 07/26/18 18:58 07/26/18 18:58 - Physical Exam General Appearance: Yes: Nourished, Appropriately Dressed, Apparent Distress HEENT: positive: EOMI, KASI, Other (pupils normal size and equal bilaterally without nystagmus ) Neck: positive: Supple. negative: Carotid bruit, Stridor, Lymphadenopathy (R), Lymphadenopathy (L) Respiratory/Chest: positive: Lungs Clear, Normal Breath Sounds. negative: Accessory Muscle Use, Crackles, Wheezing Cardiovascular: positive: Regular Rhythm, Regular Rate, S1, S2. negative: Edema , JVD, Murmur Vascular Pulses: Dorsalis-Pedis (R): 4+, Doralis-Pedis (L): 4+ Gastrointestinal/Abdominal: positive: Normal Bowel Sounds, Flat, Soft. negative : Pulsatile Mass, Guarding, Rebound, Tenderness Extremity: positive: Swelling (left foot and ankle with redness and warmth) ED Treatment Course - LABORATORY CBC & Chemistry Diagram: 07/26/18 20:17 07/26/18 20:17 - RADIOLOGY Radiology Studies Ordered: Category Date Time Status HEAD CT WITHOUT CONTRAST [CT] Stat CT Scan 07/26/18 19:49 Ordered CHEST X-RAY PORTABLE* [RAD] Stat Radiology 07/26/18 19:48 Ordered *DC/Admit/Observation/Transfer Diagnosis at time of Disposition: Altered mental status Qualifiers: Altered mental status type: unspecified Qualified Code(s): R41.82 - Altered mental status, unspecified - Discharge Dispostion Condition at time of disposition: Stable Decision to Admit order: Yes - Referrals Referrals: Nery Umanzor MD [Primary Care Provider] - - Patient Instructions - Post Discharge Activity
[2018-07-26 21:03] LABS: INR 1.1 (0.83-1.09)
[2018-07-26 21:05] LABS: ACTIVATED PTT 30.3 SECONDS (25.2-36.5)
[2018-07-26] MEDS ORDERED: HEMOQUE TEST 1 EACH EACH ONE (21:15)
[2018-07-26 22:22] LABS: ALBUMIN 3.2 g/dl (3.4-5.0); ALK PHOS 139 U/L (45-117); ANION GAP 10 MMOL/L (8-16); BILIRUBIN,TOTAL 0.4 mg/dL (0.2-1); BLOOD UREA NITROGEN 15 mg/dL (7-18); CALCIUM 8.8 mg/dL (8.5-10.1); CHLORIDE 98 mmol/L (98-107); CO2 31 mmol/L (21-32); CREATININE 3.8 mg/dL (0.55-1.3); GLUCOSE,RANDOM 54 mg/dL (74-106); SGOT/AST 27 U/L (15-37); SGPT/ALT 7 U/L (13-61); SODIUM 139 mmol/L (136-145); TOT PROT 7.4 g/dl (6.4-8.2)
[2018-07-26 22:52] LABS: URINE APPEARANCE SLCLOUDY; URINE BILIRUBIN NEGATIVE (<2.0 mg/dL); URINE COLOR DKYELLOW; URINE GLUCOSE (UA) 1+ (NEGATIVE); URINE KETONE NEGATIVE (NEGATIVE); URINE LEUK ESTERASE NEGATIVE (NEGATIVE); URINE NITRITE NEGATIVE (NEGATIVE); URINE PROTEIN 3+ (NEGATIVE); URINE UROBILINOGEN NEGATIVE mg/dL (0.2-1.0)
[2018-07-27 06:34] LABS: VENOUS PC02 40.4 mmHg (38-52); VENOUS PH 7.46 (7.32-7.42); VENOUS PO2 52.4 mmHg (28-48)
--- NOTE | 2018-07-27 06:56 | PN ---
Teaching Attending Note Name of Resident: Roma Flores ATTENDING PHYSICIAN STATEMENT I saw and evaluated the patient. Chart, data, imaging reviewed. I reviewed the resident's note and discussed the case with the resident. I agree with the resident's findings and plan as documented. SUBJECTIVE: 72 yo male from [facility] pmh CAD, CABG, HTN, HLD, type 2 diabetes, hypothyroid, PVD with L great toe amputation, ESRD (dialysis T, TH, Sat) and a recent admission for hemoptysis brought to ED with 2 days change in mental status, was disoriented. After surgery was receiving neurotin and oxycodone which may have affected mentation. OBJECTIVE: Last Vital Signs Temp Pulse Resp BP Pulse Ox 99.1 F 80 17 132/59 L 93 L 07/27/18 05:46 07/27/18 05:46 07/27/18 05:46 07/27/18 05:46 07/27/18 05:46 general - oriented to person, place, time heent -atraumatic, dry oral mucosa neck -supple cv -s1+S2+rrr chest cta b/l abd- soft, nt ext -left L toe s/p amputation wound site appears healed well Abnormal Lab Results 07/26/18 07/26/18 07/26/18 20:17 20:17 20:17 RBC 3.60 L Hgb 10.2 L Hct 31.6 L RDW 18.5 H Monocytes % 10.6 H INR 1.10 H POC VBG pCO2 54.7 H POC VBG pO2 25.8 L D Mixed VBG HCO3 33.0 H Creatinine Random Glucose ALT Alkaline Phosphatase Troponin I Albumin Urine Protein Urine Glucose (UA) 07/26/18 07/26/18 07/26/18 20:17 20:17 22:15 RBC Hgb Hct RDW Monocytes % INR POC VBG pCO2 POC VBG pO2 Mixed VBG HCO3 Creatinine 3.8 H Random Glucose 54 L ALT 7 L Alkaline Phosphatase 139 H Troponin I 0.06 H Albumin 3.2 L Urine Protein 3+ H Urine Glucose (UA) 1+ H ASSESSMENT AND PLAN: #72yo man with altered mental status which is now resolved. May have been medication induced. May have been metabolic encephalopathy from uremia. -observation -continue home meds -avoid sedatives -avoid opiates -resume hemodialysis - consult renal #Left great toe amputation site- appears clean, no infection seen heparin sc for dvt ppx -see resident note for details
--- NOTE | 2018-07-27 06:56 | HP ---
CHIEF COMPLAINT: AMS PCP: HISTORY OF PRESENT ILLNESS: ER course was notable for: (1) (2) (3) Recent Travel: PAST MEDICAL HISTORY: PAST SURGICAL HISTORY: Social History: Smoking: Alcohol: Drugs: Family History: Allergies gabapentin [From Neurontin] Adverse Reaction (Verified 07/13/18 17:19) HOME MEDICATIONS: Home Medications Medication Instructions Recorded Acetaminophen 650 mg PO Q4H PRN 02/28/18 Aspirin [ASA -] 81 mg PO DAILY 02/28/18 Atorvastatin Ca [Lipitor] 80 mg PO HS 02/28/18 Calcium Acetate [Phoslo -] 667 mg PO TIDCM 02/28/18 Clopidogrel Bisulfate [Plavix -] 75 mg PO DAILY 02/28/18 Levothyroxine [Synthroid -] 25 mcg PO DAILY 02/28/18 Metoprolol Succinate [Toprol Xl] 150 mg PO DAILY 02/28/18 Pantoprazole Sodium 40 mg PO DAILY 02/28/18 Sennosides [Senna -] 1 tab PO HS 02/28/18 Sertraline HCl [Zoloft -] 50 mg PO HS 02/28/18 Heparin - 5,000 unit SQ BID #1 vial 03/10/18 Albuterol 0.083% Nebulizer Yessi 1 amp IN Q8H PRN 03/28/18 [Ventolin 0.083% Nebulizer Soln -] Melatonin 3 mg PO HS 04/21/18 Cefazolin [Ancef] 3 gm IV WEEKLY 07/13/18 Cholecalciferol (Vitamin D3) 1,000 unit PO DAILY 07/13/18 [Vitamin D3] Insulin Sliding Scale [Novolog 0 units SQ BID 07/13/18 Vial Sliding Scale -] Oxycodone HCl/Acetaminophen 1 each PO BID 07/13/18 [Percocet 10-325 mg Tablet] Vitamin B Comp W-C [Nephro-Misty -] 1 tablet PO DAILY 07/13/18 Vit A/Vitamin D3/E/Aloe V/Zinc 5 gm TP TID 07/14/18 [Periguard Ointment] REVIEW OF SYSTEMS CONSTITUTIONAL: Absent: fever, chills, diaphoresis, generalized weakness, malaise, loss of appetite, weight change HEENT: Absent: rhinorrhea, nasal congestion, throat pain, throat swelling, difficulty swallowing, mouth swelling, ear pain, eye pain, visual changes CARDIOVASCULAR: Absent: chest pain, syncope, palpitations, irregular heart rate, lightheadedness , peripheral edema RESPIRATORY: Absent: cough, shortness of breath, dyspnea with exertion, orthopnea, wheezing, stridor, hemoptysis GASTROINTESTINAL: Absent: abdominal pain, abdominal distension, nausea, vomiting, diarrhea, constipation, melena, hematochezia GENITOURINARY: Absent: dysuria, frequency, urgency, hesitancy, hematuria, flank pain, genital pain MUSCULOSKELETAL: Absent: myalgia, arthralgia, joint swelling, back pain, neck pain SKIN: Absent: rash, itching, pallor HEMATOLOGIC/IMMUNOLOGIC: Absent: easy bleeding, easy bruising, lymphadenopathy, frequent infections ENDOCRINE: Absent: unexplained weight gain, unexplained weight loss, heat intolerance, cold intolerance NEUROLOGIC: Absent: headache, focal weakness or paresthesias, dizziness, unsteady gait, seizure, mental status changes, bladder or bowel incontinence PSYCHIATRIC: Absent: anxiety, depression, suicidal or homicidal ideation, hallucinations. PHYSICAL EXAMINATION Vital Signs - 24 hr 07/26/18 07/26/18 07/27/18 18:58 20:27 05:46 Temperature 100.2 F H 98.6 F 99.1 F Pulse Rate 80 80 Pulse Rate [ 80 80 Left Radial] Respiratory 16 14 17 Rate Blood Pressure 159/94 140/83 Blood Pressure 140/83 132/59 L [Left Arm] O2 Sat by Pulse 100 100 93 L Oximetry (%) GENERAL: Awake, alert, and fully oriented, in no acute distress. HEAD: Normal with no signs of trauma. EYES: Pupils equal, round and reactive to light, extraocular movements intact, sclera anicteric, conjunctiva clear. No lid lag. EARS, NOSE, THROAT: Ears normal, nares patent, oropharynx clear without exudates. Moist mucous membranes. NECK: Normal range of motion, supple without lymphadenopathy, JVD, or masses. LUNGS: Breath sounds equal, clear to auscultation bilaterally. No wheezes, and no crackles. No accessory muscle use. HEART: Regular rate and rhythm, normal S1 and S2 without murmur, rub or gallop. ABDOMEN: Soft, nontender, not distended, normoactive bowel sounds, no guarding, no rebound, no masses. No hepatomegaly or splenomegaly. MUSCULOSKELETAL: Normal range of motion at all joints. No bony deformities or tenderness. No CVA tenderness. UPPER EXTREMITIES: 2+ pulses, warm, well-perfused. No cyanosis. No clubbing. No peripheral edema. LOWER EXTREMITIES: 2+ pulses, warm, well-perfused. No calf tenderness. No peripheral edema. NEUROLOGICAL: Cranial nerves II-XII intact. Normal speech. Normal gait. PSYCHIATRIC: Cooperative. Good eye contact. Appropriate mood and affect. SKIN: Warm, dry, normal turgor, no rashes or lesions noted, normal capillary refill. Laboratory Results - last 24 hr 07/26/18 07/26/18 07/26/18 20:17 20:17 20:17 WBC 6.1 RBC 3.60 L Hgb 10.2 L Hct 31.6 L MCV 87.9 MCH 28.4 MCHC 32.3 RDW 18.5 H Plt Count 201 D MPV 9.4 Absolute Neuts (auto) 4.6 Neutrophils % 76.2 Lymphocytes % 10.1 D Monocytes % 10.6 H Eosinophils % 2.2 Basophils % 0.9 Nucleated RBC % 0 PT with INR 13.00 INR 1.10 H PTT (Actin FS) 30.3 VBG pH 7.40 POC VBG pCO2 54.7 H POC VBG pO2 25.8 L D Mixed VBG HCO3 33.0 H Sodium Potassium Chloride Carbon Dioxide Anion Gap BUN Creatinine Creat Clearance w eGFR POC Glucometer Random Glucose Lactic Acid Calcium Total Bilirubin AST ALT Alkaline Phosphatase Troponin I Total Protein Albumin Urine Color Urine Appearance Urine pH Ur Specific [place] Urine Protein Urine Glucose (UA) Urine Ketones Urine Blood Urine Nitrite Urine Bilirubin Urine Urobilinogen Ur Leukocyte Esterase Urine WBC (Auto) Urine RBC (Auto) 07/26/18 07/26/18 07/26/18 20:17 20:17 20:17 WBC RBC Hgb Hct MCV MCH MCHC RDW Plt Count MPV Absolute Neuts (auto) Neutrophils % Lymphocytes % Monocytes % Eosinophils % Basophils % Nucleated RBC % PT with INR INR PTT (Actin FS) VBG pH POC VBG pCO2 POC VBG pO2 Mixed VBG HCO3 Sodium 139 Potassium 4.0 Chloride 98 Carbon Dioxide 31 Anion Gap 10 BUN 15 Creatinine 3.8 H Creat Clearance w eGFR 15.74 POC Glucometer Random Glucose 54 L Lactic Acid 0.8 Calcium 8.8 Total Bilirubin 0.4 AST 27 ALT 7 L Alkaline Phosphatase 139 H Troponin I 0.06 H Total Protein 7.4 Albumin 3.2 L Urine Color Urine Appearance Urine pH Ur Specific [place] Urine Protein Urine Glucose (UA) Urine Ketones Urine Blood Urine Nitrite Urine Bilirubin Urine Urobilinogen Ur Leukocyte Esterase Urine WBC (Auto) Urine RBC (Auto) 07/26/18 07/26/18 07/27/18 21:18 22:15 02:40 WBC RBC Hgb Hct MCV MCH MCHC RDW Plt Count MPV Absolute Neuts (auto) Neutrophils % Lymphocytes % Monocytes % Eosinophils % Basophils % Nucleated RBC % PT with INR INR PTT (Actin FS) VBG pH POC VBG pCO2 POC VBG pO2 Mixed VBG HCO3 Sodium Potassium Chloride Carbon Dioxide Anion Gap BUN Creatinine Creat Clearance w eGFR POC Glucometer 101.11648 103.75736 Random Glucose Lactic Acid Calcium Total Bilirubin AST ALT Alkaline Phosphatase Troponin I Total Protein Albumin Urine Color Dkyellow Urine Appearance Slcloudy Urine pH 7.0 Ur Specific [place] 1.018 Urine Protein 3+ H Urine Glucose (UA) 1+ H Urine Ketones Negative Urine Blood Negative Urine Nitrite Negative Urine Bilirubin Negative Urine Urobilinogen Negative Ur Leukocyte Esterase Negative Urine WBC (Auto) 13 Urine RBC (Auto) 2 ASSESSMENT/PLAN:
[2018-07-27 07:50] LABS: HEMATOCRIT 30.8 % (35.4-49); HEMOGLOBIN 9.7 GM/dL (11.7-16.9); MCH 27.7 pg (25.7-33.7); MCHC 31.5 g/dl (32.0-35.9); MEAN CELL VOLUME 88.2 fl (80-96); MEAN PLT VOLUME 9.2 fl (7.5-11.1); PLATELET COUNT 187 K/MM3 (134-434); RBC 3.49 M/mm3 (4.00-5.60); RDW 18.6 % (11.9-15.9)
--- NOTE | 2018-07-27 08:41 | HP ---
CHIEF COMPLAINT: AMS x2days PCP: Smith ALBRIGHT HISTORY OF PRESENT ILLNESS: 72F w/ pmhx of CAD s/p CABG, HTN, HLD, hypothyroidism, PVD, ESRD on HS (//Mon ), hx of osteomyelitis, DM, pacemaker placement who presents in the ED w/ altered mental status for 2 days. Pt reports that he was recently given oxycodone after having surgery for pain and ever since then, he has been hallucinating. Per ED report, this was also noticed by pt's niece. Pt currently denies chest pain, sob, f/c, n/v. He admits to back pain, but is no longer hallucinating. He does not remember why he was brought to the hospital. ER course was notable for: (1) H/H 10.2/31.6, Cr 3.8, Trop 0.06 (2) Vanc 1gm, Zosyn 3.375gm given (3) Blood/urine cultures ordered Recent Travel: Denies PAST MEDICAL HISTORY: As per HPI PAST SURGICAL HISTORY: L Great toe amputation R hip ORIF AVG R upper arm SFA atherectomy + DCB angioplasty w/ stent placement Pacemaker Social History: Smoking: Quit 13 years ago, Used to smoke 1 PPD x15 years Alcohol: 5-6 beers/weekend Drugs: Denies Family History: Mom- DM, at 63 Dad- DM, at 97 Brother- DM Sister-kidney disease, at 68 Brother- DM, at 75 Brother- Parkinsons Allergies gabapentin [From Neurontin] Adverse Reaction (Verified 07/13/18 17:19) HOME MEDICATIONS: Home Medications Medication Instructions Recorded Acetaminophen 650 mg PO Q4H PRN 02/28/18 Aspirin [ASA -] 81 mg PO DAILY 02/28/18 Atorvastatin Ca [Lipitor] 80 mg PO HS 02/28/18 Calcium Acetate [Phoslo -] 667 mg PO TIDCM 02/28/18 Clopidogrel Bisulfate [Plavix -] 75 mg PO DAILY 02/28/18 Levothyroxine [Synthroid -] 25 mcg PO DAILY 02/28/18 Metoprolol Succinate [Toprol Xl] 150 mg PO DAILY 02/28/18 Pantoprazole Sodium 40 mg PO DAILY 02/28/18 Sennosides [Senna -] 1 tab PO HS 02/28/18 Sertraline HCl [Zoloft -] 50 mg PO HS 02/28/18 Heparin - 5,000 unit SQ BID #1 vial 03/10/18 Albuterol 0.083% Nebulizer Yessi 1 amp IN Q8H PRN 03/28/18 [Ventolin 0.083% Nebulizer Soln -] Melatonin 3 mg PO HS 04/21/18 Cefazolin [Ancef] 3 gm IV WEEKLY 07/13/18 Cholecalciferol (Vitamin D3) 1,000 unit PO DAILY 07/13/18 [Vitamin D3] Insulin Sliding Scale [Novolog 0 units SQ BID 07/13/18 Vial Sliding Scale -] Oxycodone HCl/Acetaminophen 1 each PO BID 07/13/18 [Percocet 10-325 mg Tablet] Vitamin B Comp W-C [Nephro-Misty -] 1 tablet PO DAILY 07/13/18 Vit A/Vitamin D3/E/Aloe V/Zinc 5 gm TP TID 07/14/18 [Periguard Ointment] REVIEW OF SYSTEMS CONSTITUTIONAL: Absent: fever, chills, diaphoresis, generalized weakness, malaise, loss of appetite, weight change HEENT: Absent: rhinorrhea, nasal congestion, throat pain, throat swelling, difficulty swallowing, mouth swelling, ear pain, eye pain, visual changes CARDIOVASCULAR: Absent: chest pain, syncope, palpitations, irregular heart rate, lightheadedness , peripheral edema RESPIRATORY: Absent: cough, shortness of breath, dyspnea with exertion, orthopnea, wheezing, stridor, hemoptysis GASTROINTESTINAL: Absent: abdominal pain, abdominal distension, nausea, vomiting, diarrhea, constipation, melena, hematochezia GENITOURINARY: Absent: dysuria, frequency, urgency, hesitancy, hematuria, flank pain, genital pain MUSCULOSKELETAL: Absent: myalgia, arthralgia, joint swelling, back pain, neck pain SKIN: Absent: rash, itching, pallor HEMATOLOGIC/IMMUNOLOGIC: Absent: easy bleeding, easy bruising, lymphadenopathy, frequent infections ENDOCRINE: Absent: unexplained weight gain, unexplained weight loss, heat intolerance, cold intolerance NEUROLOGIC: Absent: headache, focal weakness or paresthesias, dizziness, unsteady gait, seizure, mental status changes, bladder or bowel incontinence PSYCHIATRIC: Absent: anxiety, depression, suicidal or homicidal ideation, hallucinations. PHYSICAL EXAMINATION Vital Signs - 24 hr 07/26/18 07/26/18 07/27/18 18:58 20:27 05:46 Temperature 100.2 F H 98.6 F 99.1 F Pulse Rate 80 80 Pulse Rate [ 80 80 Left Radial] Respiratory 16 14 17 Rate Blood Pressure 159/94 140/83 Blood Pressure 140/83 132/59 L [Left Arm] O2 Sat by Pulse 100 100 93 L Oximetry (%) GENERAL: AAOx3. NAD. Resting comfortably. HEENT: AT/NC. EOMI. LANG. Moist mucus membranes. NECK: Supple, no LAD/JVD. LUNGS: CTA B/L. No w/r/r noted. Symmetric chest rise. No accessory muscle use. HEART: Normal S1, S2. No murmurs noted. ABDOMEN: Soft, ND/NT +BS in all 4 Q's. No masses or bruits noted. MUSCULOSKELETAL: No pedal edema. 5/5 muscle strength in b/l u/l extremities. Amputation of L great toe, nontender, mildly warm, non-erythematous, well-healed , stitches in place. NEUROLOGICAL: Normal speech. CN II-XII intact. No facial asymmetry noted. PSYCHIATRIC: Cooperative. Good eye contact. Appropriate mood and affect. SKIN: Warm, dry, normal turgor, normal capillary refill. Laboratory Results - last 24 hr 07/26/18 07/26/18 07/26/18 20:17 20:17 20:17 WBC 6.1 RBC 3.60 L Hgb 10.2 L Hct 31.6 L MCV 87.9 MCH 28.4 MCHC 32.3 RDW 18.5 H Plt Count 201 D MPV 9.4 Absolute Neuts (auto) 4.6 Neutrophils % 76.2 Lymphocytes % 10.1 D Monocytes % 10.6 H Eosinophils % 2.2 Basophils % 0.9 Nucleated RBC % 0 PT with INR 13.00 INR 1.10 H PTT (Actin FS) 30.3 VBG pH 7.40 POC VBG pCO2 54.7 H POC VBG pO2 25.8 L D Mixed VBG HCO3 33.0 H Sodium Potassium Chloride Carbon Dioxide Anion Gap BUN Creatinine Creat Clearance w eGFR POC Glucometer Random Glucose Lactic Acid Calcium Total Bilirubin AST ALT Alkaline Phosphatase Troponin I Total Protein Albumin Urine Color Urine Appearance Urine pH Ur Specific [place] Urine Protein Urine Glucose (UA) Urine Ketones Urine Blood Urine Nitrite Urine Bilirubin Urine Urobilinogen Ur Leukocyte Esterase Urine WBC (Auto) Urine RBC (Auto) 07/26/18 07/26/18 07/26/18 20:17 20:17 20:17 WBC RBC Hgb Hct MCV MCH MCHC RDW Plt Count MPV Absolute Neuts (auto) Neutrophils % Lymphocytes % Monocytes % Eosinophils % Basophils % Nucleated RBC % PT with INR INR PTT (Actin FS) VBG pH POC VBG pCO2 POC VBG pO2 Mixed VBG HCO3 Sodium 139 Potassium 4.0 Chloride 98 Carbon Dioxide 31 Anion Gap 10 BUN 15 Creatinine 3.8 H Creat Clearance w eGFR 15.74 POC Glucometer Random Glucose 54 L Lactic Acid 0.8 Calcium 8.8 Total Bilirubin 0.4 AST 27 ALT 7 L Alkaline Phosphatase 139 H Troponin I 0.06 H Total Protein 7.4 Albumin 3.2 L Urine Color Urine Appearance Urine pH Ur Specific [place] Urine Protein Urine Glucose (UA) Urine Ketones Urine Blood Urine Nitrite Urine Bilirubin Urine Urobilinogen Ur Leukocyte Esterase Urine WBC (Auto) Urine RBC (Auto) 07/26/18 07/26/18 07/27/18 21:18 22:15 02:40 WBC RBC Hgb Hct MCV MCH MCHC RDW Plt Count MPV Absolute Neuts (auto) Neutrophils % Lymphocytes % Monocytes % Eosinophils % Basophils % Nucleated RBC % PT with INR INR PTT (Actin FS) VBG pH POC VBG pCO2 POC VBG pO2 Mixed VBG HCO3 Sodium Potassium Chloride Carbon Dioxide Anion Gap BUN Creatinine Creat Clearance w eGFR POC Glucometer 101.16519 103.75553 Random Glucose Lactic Acid Calcium Total Bilirubin AST ALT Alkaline Phosphatase Troponin I Total Protein Albumin Urine Color Dkyellow Urine Appearance Slcloudy Urine pH 7.0 Ur Specific [place] 1.018 Urine Protein 3+ H Urine Glucose (UA) 1+ H Urine Ketones Negative Urine Blood Negative Urine Nitrite Negative Urine Bilirubin Negative Urine Urobilinogen Negative Ur Leukocyte Esterase Negative Urine WBC (Auto) 13 Urine RBC (Auto) 2 07/27/18 07/27/18 07/27/18 05:47 05:47 06:00 WBC 7.0 RBC 3.49 L Hgb 9.7 L Hct 30.8 L MCV 88.2 MCH 27.7 MCHC 31.5 L RDW 18.6 H Plt Count 187 MPV 9.2 Absolute Neuts (auto) Neutrophils % Lymphocytes % Monocytes % Eosinophils % Basophils % Nucleated RBC % PT with INR INR PTT (Actin FS) VBG pH 7.46 H POC VBG pCO2 40.4 D POC VBG pO2 52.4 H D Mixed VBG HCO3 28.5 H Sodium Potassium Chloride Carbon Dioxide Anion Gap BUN Creatinine Creat Clearance w eGFR POC Glucometer Random Glucose Lactic Acid Calcium Total Bilirubin AST ALT Alkaline Phosphatase Troponin I 0.05 Total Protein Albumin Urine Color Urine Appearance Urine pH Ur Specific [place] Urine Protein Urine Glucose (UA) Urine Ketones Urine Blood Urine Nitrite Urine Bilirubin Urine Urobilinogen Ur Leukocyte Esterase Urine WBC (Auto) Urine RBC (Auto) 07/27/18 06:51 WBC RBC Hgb Hct MCV MCH MCHC RDW Plt Count MPV Absolute Neuts (auto) Neutrophils % Lymphocytes % Monocytes % Eosinophils % Basophils % Nucleated RBC % PT with INR INR PTT (Actin FS) VBG pH POC VBG pCO2 POC VBG pO2 Mixed VBG HCO3 Sodium Potassium Chloride Carbon Dioxide Anion Gap BUN Creatinine Creat Clearance w eGFR POC Glucometer 92 Random Glucose Lactic Acid Calcium Total Bilirubin AST ALT Alkaline Phosphatase Troponin I Total Protein Albumin Urine Color Urine Appearance Urine pH Ur Specific [place] Urine Protein Urine Glucose (UA) Urine Ketones Urine Blood Urine Nitrite Urine Bilirubin Urine Urobilinogen Ur Leukocyte Esterase Urine WBC (Auto) Urine RBC (Auto) ASSESSMENT/PLAN: 72F w/ pmhx of CAD s/p CABG, HTN, HLD, hypothyroidism, PVD, ESRD on HS (//Mon ), hx of osteomyelitis, DM, pacemaker placement who presents in the ED w/ altered mental status for 2 days. #AMS possibly 2/2 medication-induced vs. metabolic encephalopathy -admit to obs -fall precautions -bed rest -blood/urine cultures ordered -avoid sedating meds or opiates #L great toe amputation -does not look infected -Antibiotic therapy not needed #ESRD; currently on HD -Renal consult -resume HD (//Mon) #CAD s/p CABG Resume home meds: -Aspirin 81 mg PO QD -Plavix 75 mg PO QD #Hypothyroidism Resume home med: -Levothyroxine 25 mcg PO QD #HTN Resume home med: -Metoprolol 150 mg PO QD #HLD Resume home med: -Atorvastatin 80 mg PO HS #DM -ISS ACHS -BGMs ACHS #Depression Resume home med: -Zoloft 50 mg PO HS #Constipation Resume home med: -Senna 1 tab PO HS #DVT Ppx -Heparin 5000U SQ TID #FEN -no IVf -recheck lytes in AM -Renal diet dispo -admit to obs -Pt comes from [facility] Visit type - Emergency Visit Emergency Visit: Yes ED Registration Date: 07/27/18 Care time: The patient presented to the Emergency Department on the above date and was hospitalized for further evaluation of their emergent condition. - New Patient This patient is new to me today: Yes Date on this admission: 07/27/18 - Critical Care Critical Care patient: No
[2018-07-27] MEDS ORDERED: INSULIN (NOVOLOG) ASPART 100 UNITS/ML 10ML VIAL ONE (08:52)
[2018-07-27 09:07] LABS: ALK PHOS 116 U/L (45-117); ANION GAP 11 MMOL/L (8-16); BILIRUBIN,TOTAL 0.5 mg/dL (0.2-1); BLOOD UREA NITROGEN 19 mg/dL (7-18); CALCIUM 8.8 mg/dL (8.5-10.1); CHLORIDE 98 mmol/L (98-107); CO2 28 mmol/L (21-32); CREATININE 4.6 mg/dL (0.55-1.3); GLUCOSE,RANDOM 91 mg/dL (74-106); POTASSIUM 4.7 mmol/L (3.5-5.1); SGOT/AST 25 U/L (15-37); SGPT/ALT < 6 U/L (13-61); SODIUM 137 mmol/L (136-145); TOT PROT 7.1 g/dl (6.4-8.2)
--- NOTE | 2018-07-27 09:27 | EKG ---
Test Reason : Blood Pressure : / mmHG Vent. Rate : 080 BPM Atrial Rate : 080 BPM P-R Int : 234 ms QRS Dur : 090 ms QT Int : 446 ms P-R-T Axes : 017 022 149 degrees QTc Int : 514 ms Atrial-paced rhythm with prolonged AV conduction PROLONGED QT ABNORMAL ECG Confirmed by DORITA CONTEH MD ([id number]) on 07/27/2018 9:27:00 AM Referred By: Confirmed By:DORITA CONTEH MD
[2018-07-27] MEDS ORDERED: SODIUM CHLORIDE 250 ML IV PRN (09:52)
[2018-07-27] MEDS: INSULIN SLIDING SCALE (NOVOLOG) 1 VIAL SQ SCH ×4 (10:14→21:32)
[2018-07-27] MEDS: HEPARIN NA (PORCINE) 5,000 UNITS/ML 1ML VIAL SQ SCH ×3 (10:14→21:24)
[2018-07-27] MEDS: CLOPIDOGREL BISULFATE 75 MG TABLET (FP) PO SCH (10:16)
[2018-07-27] MEDS: VITAMIN B COMP W-C 1 EA TABLET PO SCH (10:17)
[2018-07-27] MEDS: PANTOPRAZOLE 40 MG TABLET (FP) PO SCH (10:17)
[2018-07-27] MEDS: CHOLECALCIFEROL (VITAMIN D3) 1,000 UNIT TABLET (FP) PO SCH (10:17)
[2018-07-27] MEDS: ASPIRIN 81 MG CHEWABLE TABLETS PO SCH (10:17)
[2018-07-27] MEDS: LEVOTHYROXINE NA 25 MCG TABLET (FP) PO SCH (10:17)
[2018-07-27 11:09] VITALS: BMI 22.1
[2018-07-27] MEDS: CALCIUM ACETATE 667 MG CAPSULE (FP) PO SCH ×2 (11:38→16:30)
[2018-07-27] MEDS ORDERED: ALBUTEROL SO4 0.083% IH SOL 2.5 MG/3 ML VIAL.NEB. NEB PRN (13:43)
--- NOTE | 2018-07-27 13:44 | PN ---
Progress Note (short form) - Note Progress Note: pt seen/ examined chart reviewed more awake dry cough cxr - Pneumonia ?- got abx afebrile Vital Signs Temp 98.7 F 07/27/18 10:57 Pulse 80 07/27/18 10:57 Resp 20 07/27/18 10:57 BP 153/81 07/27/18 10:57 Pulse Ox 96 07/27/18 11:12 Intake & Output 07/26/18 07/27/18 07/27/18 23:59 11:59 23:59 Weight 127 lb 13.89 oz 137 lb 6 oz Other: Voiding Method Urinal Height 5 ft 7 in 5 ft 6 in Body Mass Index (BMI) 20.0 22.1 Weight Measurement Method Standing Scale Weight Measurement Method Estimated by Staff Active Medications Albuterol Sulfate (Ventolin 0.083% Nebulizer Soln -) 1 amp NEB Q4H PRN PRN Reason: SHORT OF BREATH/WHEEZING Aspirin (Asa -) 81 mg PO DAILY [facility] Last Admin: 07/27/18 10:17 Dose: 81 mg Atorvastatin Calcium (Lipitor -) 80 mg PO HS [facility] Calcium Acetate (Phoslo -) 667 mg PO TIDCM [facility] Last Admin: 07/27/18 11:38 Dose: 667 mg Cholecalciferol (Vitamin D3 -) 1,000 unit PO DAILY [facility] Last Admin: 07/27/18 10:17 Dose: 1,000 unit Clopidogrel Bisulfate (Plavix -) 75 mg PO DAILY [facility] Last Admin: 07/27/18 10:16 Dose: 75 mg Heparin Sodium (Porcine) (Heparin -) 5,000 unit SQ TID [facility] Last Admin: 07/27/18 13:06 Dose: 5,000 unit Insulin Aspart (Novolog Vial Sliding Scale -) 1 vial SQ ACHS [facility]; Protocol Last Admin: 07/27/18 11:38 Dose: 2 units Levothyroxine Sodium (Synthroid -) 25 mcg PO DAILY@0700 [facility] Last Admin: 07/27/18 10:17 Dose: 25 mcg Melatonin (Melatonin) 3 mg PO HS [facility] Metoprolol Succinate (Toprol Xl -) 150 mg PO DAILY [facility] Last Admin: 07/27/18 10:17 Dose: 150 mg Multivit/Ca Carb/B Cmplx/FA/Prenat (Nephro-Misty -) 1 tablet PO DAILY [facility] Last Admin: 07/27/18 10:17 Dose: 1 tablet Non-Formulary Medication (Vit A/Vitamin D3/E/Aloe V/Zinc [Periguard Ointment]) 5 gm TP TID [facility] Pantoprazole Sodium (Protonix -) 40 mg PO DAILY [facility] Last Admin: 07/27/18 10:17 Dose: 40 mg Senna (Senna -) 1 tab PO HS [facility] Sertraline HCl (Zoloft -) 50 mg PO HS [facility] CBC, BMP 07/27/18 06:00 07/27/18 06:00 Physical Exam Awake/ no distress neck- supple lungs- diminished at bases cvs- s1, s2 rrr abd - soft ext- no edema dressing + a/p ams - likely 2 to meds Pneumonia ? Abx pulmonary/ i/d consults dialysis per renal continue other meds local care will follow discussed with nursing staff Problem List - Problems (1) Pneumonia Code(s): J18.9 - PNEUMONIA, UNSPECIFIED ORGANISM (2) Altered mental status Code(s): R41.82 - ALTERED MENTAL STATUS, UNSPECIFIED Qualifiers: Altered mental status type: unspecified Qualified Code(s): R41.82 - Altered mental status, unspecified (3) Pulmonary nodule Code(s): R91.1 - SOLITARY PULMONARY NODULE (4) ASHD (arteriosclerotic heart disease) Code(s): I25.10 - ATHSCL HEART DISEASE OF [place] CORONARY ARTERY W/O ANG PCTRS (5) ESRD (end stage renal disease) on dialysis Code(s): N18.6 - END STAGE RENAL DISEASE; Z99.2 - DEPENDENCE ON RENAL DIALYSIS (6) ICD (implantable cardioverter-defibrillator) in place Code(s): Z95.810 - PRESENCE OF AUTOMATIC (IMPLANTABLE) CARDIAC DEFIBRILLATOR (7) S/P CABG (coronary artery bypass graft) Code(s): Z95.1 - PRESENCE OF AORTOCORONARY BYPASS GRAFT
--- NOTE | 2018-07-27 15:52 | PN ---
Progress Note (short form) - Note Progress Note: PULMONARY CONSULTATION DICTATED 07/27/18 IMP ALTERED MENTAL STATUS LIKELY SECONDARY PAIN MEDS ESRD ON HD RECENT HEMOPTYSIS IMPROVING S/P FLEX BRONCH CARDIOMYOPATHY PULMONARY NODULES ASHD S/P CABG,S/P PPM/ICD HTN HLD PLAN INHALED BRONCHODILATORS O2 ABX HD PER RENAL MONITOR MENTAL STATUS QUANTIFY HEMOPTYSIS SPUTUM C+S F/U CHEST X-RAY F/U CHEST CT 4-[address] GAMINO Problem List - Problems (1) Altered mental status Code(s): R41.82 - ALTERED MENTAL STATUS, UNSPECIFIED Qualifiers: Altered mental status type: unspecified Qualified Code(s): R41.82 - Altered mental status, unspecified (2) ASHD (arteriosclerotic heart disease) Code(s): I25.10 - ATHSCL HEART DISEASE OF [place] CORONARY ARTERY W/O ANG PCTRS (3) COPD (chronic obstructive pulmonary disease) Code(s): J44.9 - CHRONIC OBSTRUCTIVE PULMONARY DISEASE, UNSPECIFIED Qualifiers: COPD type: unspecified COPD Qualified Code(s): J44.9 - Chronic obstructive pulmonary disease, unspecified (4) ESRD (end stage renal disease) on dialysis Code(s): N18.6 - END STAGE RENAL DISEASE; Z99.2 - DEPENDENCE ON RENAL DIALYSIS (5) HTN (hypertension) Code(s): I10 - ESSENTIAL (PRIMARY) HYPERTENSION Qualifiers: Hypertension type: essential hypertension Qualified Code(s): I10 - Essential (primary) hypertension (6) Hemoptysis Code(s): R04.2 - HEMOPTYSIS (7) ICD (implantable cardioverter-defibrillator) in place Code(s): Z95.810 - PRESENCE OF AUTOMATIC (IMPLANTABLE) CARDIAC DEFIBRILLATOR (8) Ischemic dilated cardiomyopathy Code(s): I25.5 - ISCHEMIC CARDIOMYOPATHY; I42.0 - DILATED CARDIOMYOPATHY (9) S/P CABG (coronary artery bypass graft) Code(s): Z95.1 - PRESENCE OF AORTOCORONARY BYPASS GRAFT (10) Hemoptysis, unspecified Code(s): R04.2 - HEMOPTYSIS (11) Pulmonary nodule Code(s): R91.1 - SOLITARY PULMONARY NODULE
--- NOTE | 2018-07-27 16:14 | CONS ---
PULMONARY CONSULTATION DATE OF CONSULTATION: 07/27/2018 REFERRING PHYSICIAN: Moshe Nur MD HISTORY OF PRESENT ILLNESS: The patient is a 72-year-old male known to me from previous hospitalization with past medical history of ASHD status post CABG , hypertension, hyperlipidemia, hypothyroidism, end-stage renal disease on hemodialysis Monday, , and Monday, PVD, osteomyelitis, diabetes, status post permanent pacemaker. Recently hospitalized at [facility] on July 21 secondary to hemoptysis. Patient underwent a bronchoscopy; found no evidence of endobronchial pathology. Readmitted to [facility] secondary to altered mental status for 2 days' duration. The patient apparently was recently given oxycodone secondary to having surgery. Since that time, he has been apparently hallucinating. Patient currently does not recall why he came to the hospital. He appears alert and oriented. He does complain of some cough. Still having intermittent hemoptysis, maybe once every day as compared to previous multiple episodes. He states that the sputum is dark red in color, no bright red heme. He has a history of tobacco use; quit a few years ago. There is no history of occupational exposure to chemicals or fumes. Of note, in the emergency room, he was treated with vancomycin and Zosyn and admitted to the floor for further management. PAST MEDICAL HISTORY: Again, includes ASHD status post CABG, status post permanent pacemaker, hypertension, hyperlipidemia, hypothyroidism, PVD, end-stage renal disease on hemodialysis, osteomyelitis, diabetes, recent hemoptysis. REVIEW OF SYSTEMS: Positive cough. Positive mild chest congestion. No fever. No chills. No pain. Trace hemoptysis. No abdominal pain. No lower extremity edema. SOCIAL HISTORY: History of tobacco use and quit 15 years ago. 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 Born in [place]. CURRENT MEDICATIONS: Include heparin, albuterol, Toprol, senna, insulin, melatonin, PhosLo, Plavix, levothyroxine. PHYSICAL EXAMINATION: General: The patient is a well-developed, well-nourished male, awake, alert, in no acute distress. Vital signs: He is afebrile. Blood pressure is 153/81, respiratory rate is 20 , O2 saturation is 96% on room air. HEENT: Exam is normocephalic, atraumatic. Neck: Supple. Heart: Regular S1 and S2. Chest: A few scattered rhonchi noted on the left. Abdomen: Soft. Bowel sounds are positive. Extremities: No cyanosis, edema. LABORATORIES: WBC is 7, hemoglobin 9.7, hematocrit 30.8, with a platelet count of 187,000. INR is 1.12. Venous blood gas: PH of 7.46, PCO2 of 40, PO2 of 54, bicarbonate of 25. BUN 19, creatinine 4.6. IMAGING: Head CT: No evidence of acute pathology. Chest x-ray: Cardiomegaly, sternal sutures, double pacemaker, and congestive changes on the left. Previous CAT scan on July 13, 2018, revealed moderate left-sided and small right-sided pleural effusion. There is also left basilar compressive atelectasis and a nonspecific, noncalcified 0.7-cm right upper lobe nodule, a 0.9-cm right lower lobe nodule, and a 0.5-cm nodule on the right diaphragm. IMPRESSION: 1. Altered mental status. Most likely secondary to medication. 2. Recent episode of hemoptysis; improving. Status post normal flexible bronchoscopy. 3. Bilateral pleural effusions. 4. Pulmonary nodules. 5. End-stage renal disease, on hemodialysis. 6. Atherosclerotic heart disease. Status post coronary artery bypass graft. Status post permanent pacemaker. PLAN: Inhaled bronchodilators. Supplemental O2, antibiotics. Follow up chest x-ray. Also, obtain followup chest CT in 4 to 6 weeks to document resolution of pulmonary nodules. Sputum for C and S. Hemodialysis as per Renal. JASE GAMINO M.D. [id number] MTDD
--- NOTE | 2018-07-27 17:43 | PN ---
Progress Note (short form) - Note Progress Note: ID Consult dictated Observe off antibiotics
--- NOTE | 2018-07-27 19:05 | CONS ---
DATE OF CONSULTATION: 07/27/2018 HISTORY OF PRESENT ILLNESS: The patient is a 72-year-old male who was evaluated for possible pneumonia. The patient was recently hospitalized at [facility] from July 16 through July 21 after presenting with hemoptysis. During that admission, a bronchoscopy was performed and was negative for endobronchial lesions. The patient now returns on July 26, 2018 with altered mental status, dyspnea and cough productive of yellowish sputum. He also complains of some dysuria at times and malodorous urine. The patient is status post amputation of the left great toe for gangrene. At the present time, he is awake and alert. He denies any fever or chills. He has no complaints of pain. He denies any chest pain, shortness of breath or cough. He has had no vomiting or diarrhea. No reports of infection at the amputation site. PAST MEDICAL HISTORY: Positive for diabetes mellitus, end-stage renal disease on hemodialysis, coronary artery disease, congestive heart failure, COPD, hypertension, hyperlipidemia, pulmonary nodules and peripheral neuropathy. PAST SURGICAL HISTORY: Status post coronary artery bypass grafting, defibrillator placement, right hip replacement, right upper extremity AV graft, amputation of the left great toe. ALLERGIES: NEURONTIN. SOCIAL HISTORY: He is currently living in a correction facility for rehabilitation. He is a former smoker. He reports being up to date with respect to influenza and pneumococcal vaccines. REVIEW OF SYSTEMS: Neurologic: Positive for altered mental status. No loss of consciousness, seizure activity or focal weakness. Cardiac: Negative for chest pain or palpitations. Respiratory: As per HPI. Gastrointestinal: Negative for vomiting or diarrhea. Genitourinary: Positive for end-stage renal disease on dialysis. LABORATORY DATA: White count 7.0, hematocrit 30.8, platelet count 187, BUN 19, creatinine 4.6. A urinalysis shows 13 white cells. A chest x-ray shows increased markings bilaterally. No focal consolidation. PHYSICAL EXAMINATION: General: The patient appears chronically ill. Vital Signs: Temperature 98.1, T-max 100.2, blood pressure 144/82, pulse 78 and regular, respiratory rate 22 per minute. HEENT:: Sclerae anicteric. Heart: Heart sounds S1, S2. Lungs: A few crepitations at the bases bilaterally. Abdomen: Soft. No tenderness elicited. No mass, rebound or rigidity. Extremities: Negative for edema. An AV fistula is present in the right upper extremity. The left 1st toe amputation site is healing well without evidence of infection. IMPRESSION: 1. Altered mental status, likely secondary to analgesics from recent toe amputation. 2. Doubt pneumonia. 3. End-stage renal disease on hemodialysis. 4. Diabetes mellitus. 5. Coronary artery disease. 6. Low clinical suspicion for pneumonia. PLAN: 1. The patient is afebrile with a normal white blood cell count. We will observe him off antibiotic therapy. We will await cultures. 2. Continue local wound care for left great toe amputation site. Thank you for the kind referral. DORITA MAYER M.D. [id number]
--- NOTE | 2018-07-27 19:47 | CONSULT ---
Consult Consult Specialty:: Nephrology Reason for Consultation:: ESRD - History of Present Illness Chief Complaint: sent in for change in mental status History of Present Illness: Pt is a 72 year old male with pmhx of ESRD, CAD, CABG, HTN, HLD, DM, PVD and hypothyroidism who was sent in for altered mental status. He says he does not remember why he was sent to the hospital. He is awake and able to give history. He was recently discharged after being admitted for hemopysis. He denies shortness of breath. He is on a TTS HD schedule. 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 Cardio/Vascular: Yes: AFIB, CAD, CHF, HTN, Hyperlipdemia, IA, Mitral Insufficiency Pulmonary: Yes: COPD Gastrointestinal: Yes: GI Bleed Renal/: Yes: Renal Failure, Hemodialysis Psych: Yes: Anxiety Musculoskeletal: Yes: Other Endocrine: Yes: Diabetes Mellitus Dermatology: Yes: Other (gangarene left big toe) - Past Surgical History Past Surgical History: Yes: AICD, AV Fistula/Graft, CABG - Alcohol/Substance Use Hx Alcohol Use: No - Smoking History Smoking history: Former smoker Have you smoked in the past 12 months: No Aproximately how many cigarettes per day: 5 If you are a former smoker, when did you quit?: 2004 - Social History Usual Living Arrangement: Long Term History of Recent Travel: No Home Medications - Allergies Allergies/Adverse Reactions: Allergies Allergy/AdvReac Type Severity Reaction Status Date / Time acetaminophen [From Percocet] Allergy Verified 07/27/18 18:04 oxycodone [From Percocet] Allergy Verified 07/27/18 18:04 gabapentin [From Neurontin] AdvReac Verified 07/13/18 17:19 - Home Medications Home Medications: Ambulatory Orders Acetaminophen 650 mg PO Q4H PRN 02/28/18 Aspirin [ASA -] 81 mg PO DAILY 02/28/18 Atorvastatin Ca [Lipitor] 80 mg PO HS 02/28/18 Calcium Acetate [Phoslo -] 667 mg PO TIDCM 02/28/18 Clopidogrel Bisulfate [Plavix -] 75 mg PO DAILY 02/28/18 Levothyroxine [Synthroid -] 25 mcg PO DAILY 02/28/18 Metoprolol Succinate [Toprol Xl] 150 mg PO DAILY 02/28/18 Pantoprazole Sodium 40 mg PO DAILY 02/28/18 Sennosides [Senna -] 1 tab PO HS 02/28/18 Sertraline HCl [Zoloft -] 50 mg PO HS 02/28/18 Heparin - 5,000 unit SQ BID #1 vial 03/10/18 Albuterol 0.083% Nebulizer Yessi [Ventolin 0.083% Nebulizer Soln -] 1 amp IN Q8H PRN 03/28/18 Melatonin 3 mg PO HS 04/21/18 Cefazolin [Ancef] 3 gm IV WEEKLY 07/13/18 Cholecalciferol (Vitamin D3) [Vitamin D3] 1,000 unit PO DAILY 07/13/18 Insulin Sliding Scale [Novolog Vial Sliding Scale -] 0 units SQ BID 07/13/18 Oxycodone HCl/Acetaminophen [Percocet 10-325 mg Tablet] 1 each PO BID 07/13/18 Vitamin B Comp W-C [Nephro-Misty -] 1 tablet PO DAILY 07/13/18 Vit A/Vitamin D3/E/Aloe V/Zinc [Periguard Ointment] 5 gm TP TID 07/14/18 Family Disease History - Family Disease History Family History: Denies Review of Systems - Review of Systems Constitutional: reports: No Symptoms Eyes: reports: No Symptoms HENT: reports: Gingival Bleeding Neck: reports: No Symptoms Cardiovascular: reports: No Symptoms Respiratory: reports: No Symptoms Gastrointestinal: reports: No Symptoms Genitourinary: reports: No Symptoms Integumentary: reports: No Symptoms Neurological: reports: Change in LOC Physical Exam Vital Signs: Vital Signs Temperature 98.1 F 07/27/18 12:00 Pulse Rate 78 07/27/18 12:00 Respiratory Rate 20 07/27/18 12:00 Blood Pressure 144/82 07/27/18 12:00 O2 Sat by Pulse Oximetry (%) 96 07/27/18 11:12 Constitutional: Yes: Calm Eyes: Yes: Conjunctiva Clear HENT: Yes: Atraumatic Neck: Yes: Supple Cardiovascular: Yes: S1, S2 Respiratory: Yes: CTA Bilaterally Gastrointestinal: Yes: Normal Bowel Sounds, Soft Renal/: Yes: WNL Musculoskeletal: Yes: Muscle Weakness Edema: No Neurological: Yes: Oriented Psychiatric: Yes: Oriented Labs: CBC, BMP 07/27/18 06:00 07/27/18 06:00 Laboratory Tests 07/27/18 07/27/18 06:00 06:00 Hgb 9.7 L BUN 19 H Creatinine 4.6 H Imaging - Results Chest X-ray: Report Reviewed Cat Scan: Report Reviewed Problem List - Problems (1) Altered mental status Code(s): R41.82 - ALTERED MENTAL STATUS, UNSPECIFIED Qualifiers: Altered mental status type: unspecified Qualified Code(s): R41.82 - Altered mental status, unspecified (2) ESRD (end stage renal disease) Code(s): N18.6 - END STAGE RENAL DISEASE Assessment/Plan Current Medications Generic Name Dose Route Start Last Admin Trade Name Freq PRN Reason Stop Dose Admin Albuterol Sulfate 1 amp 07/27/18 13:43 Ventolin 0.083% Nebulizer Soln - NEB Q4H PRN SHORT OF BREATH/WHEEZING Aspirin 81 mg 07/27/18 10:00 07/27/18 10:17 Asa - PO 81 mg DAILY [facility]ERY Administration Atorvastatin Calcium 80 mg 07/27/18 22:00 Lipitor - PO HS [facility]ERY Calcium Acetate 667 mg 07/27/18 12:00 07/27/18 16:30 Phoslo - PO 667 mg TIDCM [facility] Administration Cholecalciferol 1,000 unit 07/27/18 10:00 07/27/18 10:17 Vitamin D3 - PO 1,000 unit DAILY [facility]ERY Administration Clopidogrel Bisulfate 75 mg 07/27/18 10:00 07/27/18 10:16 Plavix - PO 75 mg DAILY [facility] Administration Heparin Sodium (Porcine) 5,000 unit 07/27/18 06:45 07/27/18 13:06 Heparin - SQ 5,000 unit TID [facility] Administration Insulin Aspart 1 vial 07/27/18 07:00 07/27/18 16:29 Novolog Vial Sliding Scale - SQ 2 units ACHS VALERY Administration Protocol Levothyroxine Sodium 25 mcg 07/27/18 08:45 07/27/18 10:17 Synthroid - PO 25 mcg DAILY@0700 VALERY Administration Melatonin 3 mg 07/27/18 22:00 Melatonin PO HS VALERY Metoprolol Succinate 150 mg 07/27/18 10:00 07/27/18 10:17 Toprol Xl - PO 150 mg DAILY [facility]ERY Administration Multivit/Ca Carb/B Cmplx/FA/Prenat 1 tablet 07/27/18 10:00 07/27/18 10:17 Nephro-Misty - PO 1 tablet DAILY [facility] Administration Non-Formulary Medication 5 gm 07/27/18 14:00 Vit A/Vitamin D3/E/Aloe V/Zinc [Periguard Ointment] TP TID VALERY Pantoprazole Sodium 40 mg 07/27/18 10:00 07/27/18 10:17 Protonix - PO 40 mg DAILY [facility]ERY Administration Senna 1 tab 07/27/18 22:00 Senna - PO HS VALERY Sertraline HCl 50 mg 07/27/18 22:00 Zoloft - PO HS VALERY Impression 1. ESRD 2. hemoptysis 3. DM 4. CAD 5. PVD 6. DFU 7. anemia 8. hx steal syndrome s/p DRIL procedure 9. CHF 10. pulmonary nodules 11. change in mental status Plan - will arrange for HD tomorrow - avoid sedatives - narcotics may have contributed to the change - epogen for anemia - will follow Dr Dove
[2018-07-27] MEDS ORDERED: PT OWN MED DRAWER 7, Y5N ONE (21:17)
[2018-07-27] MEDS: SERTRALINE HCL 50 MG TABLET (FP) PO SCH (21:24)
[2018-07-27] MEDS: SENNOSIDES 8.6MG TABLET (FP) PO SCH (21:24)
[2018-07-27] MEDS: ATORVASTATIN CA 80 MG TABLET (FP) PO SCH (21:24)
[2018-07-27] MEDS: MELATONIN 1 MG TABLET PO SCH (21:25)
[2018-07-28] MEDS ORDERED: INSULIN (NOVOLOG) ASPART 100 UNITS/ML 10ML VIAL ONE (05:08)
[2018-07-28] MEDS: MINERAL OIL/PETROLAT/WATER TOPICAL CREAM 113 GM JAR TP SCH ×3 (05:19→21:29)
[2018-07-28] MEDS: HEPARIN NA (PORCINE) 5,000 UNITS/ML 1ML VIAL SQ SCH ×3 (05:20→21:27)
[2018-07-28] MEDS: INSULIN SLIDING SCALE (NOVOLOG) 1 VIAL SQ SCH ×4 (06:11→21:27)
[2018-07-28] MEDS: LEVOTHYROXINE NA 25 MCG TABLET (FP) PO SCH (06:11)
[2018-07-28] MEDS ORDERED: EPOETIN ALFA 3,000 UNIT/1 ML ML IVPUSH ONE (10:00)
--- NOTE | 2018-07-28 12:04 | PN ---
Progress Note, Physician Chief Complaint: examined in HD no complaints still has cough with blood tinged sputum - Current Medication List Current Medications: Active Medications Albuterol Sulfate (Ventolin 0.083% Nebulizer Soln -) 1 amp NEB Q4H PRN PRN Reason: SHORT OF BREATH/WHEEZING Aspirin (Asa -) 81 mg PO DAILY ON LICENSE OF [facility] Last Admin: 07/27/18 10:17 Dose: 81 mg Atorvastatin Calcium (Lipitor -) 80 mg PO [facility] Last Admin: 07/27/18 21:24 Dose: 80 mg Calcium Acetate (Phoslo -) 667 mg PO TIDCM ON LICENSE OF [facility] Last Admin: 07/27/18 16:30 Dose: 667 mg Cholecalciferol (Vitamin D3 -) 1,000 unit PO DAILY ON LICENSE OF [facility] Last Admin: 07/27/18 10:17 Dose: 1,000 unit Clopidogrel Bisulfate (Plavix -) 75 mg PO DAILY ON LICENSE OF [facility] Last Admin: 07/27/18 10:16 Dose: 75 mg Heparin Sodium (Porcine) (Heparin -) 5,000 unit SQ TID ON LICENSE OF [facility] Last Admin: 07/28/18 05:20 Dose: 5,000 unit Insulin Aspart (Novolog Vial Sliding Scale -) 1 vial SQ [facility]; Protocol Last Admin: 07/28/18 06:11 Dose: 2 units Levothyroxine Sodium (Synthroid -) 25 mcg PO DAILY@0700 ON LICENSE OF [facility] Last Admin: 07/28/18 06:11 Dose: 25 mcg Melatonin (Melatonin) 3 mg PO [facility] Last Admin: 07/27/18 21:25 Dose: 3 mg Metoprolol Succinate (Toprol Xl -) 150 mg PO DAILY ON LICENSE OF [facility] Last Admin: 07/27/18 10:17 Dose: 150 mg Multi-Ingredient Lotion (Eucerin (Small Jar) -) 1 applic TP TID ON LICENSE OF [facility] Last Admin: 07/28/18 05:19 Dose: 1 applic Multivit/Ca Carb/B Cmplx/FA/Prenat (Nephro-Misty -) 1 tablet PO DAILY ON LICENSE OF [facility] Last Admin: 07/27/18 10:17 Dose: 1 tablet Pantoprazole Sodium (Protonix -) 40 mg PO DAILY ON LICENSE OF [facility] Last Admin: 07/27/18 10:17 Dose: 40 mg Senna (Senna -) 1 tab PO [facility] Last Admin: 07/27/18 21:24 Dose: 1 tab Sertraline HCl (Zoloft -) 50 mg PO HS ON LICENSE OF [facility] Last Admin: 07/27/18 21:24 Dose: 50 mg - Objective Vital Signs: Vital Signs Temperature 98.5 F 07/28/18 05:25 Pulse Rate 80 07/28/18 10:40 Respiratory Rate 18 07/28/18 10:40 Blood Pressure 130/59 L 07/28/18 10:40 O2 Sat by Pulse Oximetry (%) 96 07/27/18 11:12 Constitutional: Yes: No Distress, Calm Cardiovascular: Yes: Regular Rate and Rhythm Respiratory: Yes: Diminished Gastrointestinal: Yes: Normal Bowel Sounds, Soft. No: Tenderness Edema: No Labs: CBC, BMP 07/27/18 06:00 07/27/18 06:00 INR, PTT INR 1.10 (0.83-1.09) H 07/26/18 20:17 Problem List - Problems (1) Altered mental status Code(s): R41.82 - ALTERED MENTAL STATUS, UNSPECIFIED Qualifiers: Altered mental status type: unspecified Qualified Code(s): R41.82 - Altered mental status, unspecified (2) Hemoptysis, unspecified Code(s): R04.2 - HEMOPTYSIS (3) Pulmonary nodule Code(s): R91.1 - SOLITARY PULMONARY NODULE Assessment/Plan PLAN Pt at baseline Off antibiotics HD per renal continue with meds
--- NOTE | 2018-07-28 15:05 | PN ---
Progress Note, Physician History of Present Illness: pulmonary alert, no distress,-sob,less cough - Current Medication List Current Medications: Active Medications Albuterol Sulfate (Ventolin 0.083% Nebulizer Soln -) 1 amp NEB Q4H PRN PRN Reason: SHORT OF BREATH/WHEEZING Aspirin (Asa -) 81 mg PO DAILY [facility] Last Admin: 07/27/18 10:17 Dose: 81 mg Atorvastatin Calcium (Lipitor -) 80 mg PO [facility] Last Admin: 07/27/18 21:24 Dose: 80 mg Calcium Acetate (Phoslo -) 667 mg PO TIDCM [facility] Last Admin: 07/27/18 16:30 Dose: 667 mg Cholecalciferol (Vitamin D3 -) 1,000 unit PO DAILY [facility] Last Admin: 07/27/18 10:17 Dose: 1,000 unit Clopidogrel Bisulfate (Plavix -) 75 mg PO DAILY [facility] Last Admin: 07/27/18 10:16 Dose: 75 mg Heparin Sodium (Porcine) (Heparin -) 5,000 unit SQ TID [facility] Last Admin: 07/28/18 05:20 Dose: 5,000 unit Insulin Aspart (Novolog Vial Sliding Scale -) 1 vial SQ [facility]; Protocol Last Admin: 07/28/18 06:11 Dose: 2 units Levothyroxine Sodium (Synthroid -) 25 mcg PO DAILY@0700 [facility] Last Admin: 07/28/18 06:11 Dose: 25 mcg Melatonin (Melatonin) 3 mg PO [facility] Last Admin: 07/27/18 21:25 Dose: 3 mg Metoprolol Succinate (Toprol Xl -) 150 mg PO DAILY [facility] Last Admin: 07/27/18 10:17 Dose: 150 mg Multi-Ingredient Lotion (Eucerin (Small Jar) -) 1 applic TP TID [facility] Last Admin: 07/28/18 05:19 Dose: 1 applic Multivit/Ca Carb/B Cmplx/FA/Prenat (Nephro-Misty -) 1 tablet PO DAILY [facility] Last Admin: 07/27/18 10:17 Dose: 1 tablet Pantoprazole Sodium (Protonix -) 40 mg PO DAILY [facility] Last Admin: 07/27/18 10:17 Dose: 40 mg Senna (Senna -) 1 tab PO [facility] Last Admin: 07/27/18 21:24 Dose: 1 tab Sertraline HCl (Zoloft -) 50 mg PO HS [facility] Last Admin: 07/27/18 21:24 Dose: 50 mg - Objective Vital Signs: Vital Signs Temperature 97.8 F 07/28/18 14:37 Pulse Rate 80 07/28/18 14:37 Respiratory Rate 20 07/28/18 14:37 Blood Pressure 142/62 07/28/18 14:37 O2 Sat by Pulse Oximetry (%) 96 07/27/18 11:12 Constitutional: Yes: Well Nourished, Calm Eyes: Yes: WNL HENT: Yes: WNL Neck: Yes: WNL Cardiovascular: Yes: Pulse Irregular, S1, S2 Respiratory: Yes: Rhonchi (few rhonchi left) Gastrointestinal: Yes: Normal Bowel Sounds, Soft Extremities: Yes: WNL Edema: No Labs: CBC, BMP Problem List - Problems (1) Altered mental status Code(s): R41.82 - ALTERED MENTAL STATUS, UNSPECIFIED Qualifiers: Altered mental status type: unspecified Qualified Code(s): R41.82 - Altered mental status, unspecified (2) ASHD (arteriosclerotic heart disease) Code(s): I25.10 - ATHSCL HEART DISEASE OF [place] CORONARY ARTERY W/O ANG PCTRS (3) COPD (chronic obstructive pulmonary disease) Code(s): J44.9 - CHRONIC OBSTRUCTIVE PULMONARY DISEASE, UNSPECIFIED Qualifiers: COPD type: unspecified COPD Qualified Code(s): J44.9 - Chronic obstructive pulmonary disease, unspecified (4) ESRD (end stage renal disease) on dialysis Code(s): N18.6 - END STAGE RENAL DISEASE; Z99.2 - DEPENDENCE ON RENAL DIALYSIS (5) HTN (hypertension) Code(s): I10 - ESSENTIAL (PRIMARY) HYPERTENSION Qualifiers: Hypertension type: essential hypertension Qualified Code(s): I10 - Essential (primary) hypertension (6) Hemoptysis Code(s): R04.2 - HEMOPTYSIS (7) ICD (implantable cardioverter-defibrillator) in place Code(s): Z95.810 - PRESENCE OF AUTOMATIC (IMPLANTABLE) CARDIAC DEFIBRILLATOR (8) Ischemic dilated cardiomyopathy Code(s): I25.5 - ISCHEMIC CARDIOMYOPATHY; I42.0 - DILATED CARDIOMYOPATHY (9) S/P CABG (coronary artery bypass graft) Code(s): Z95.1 - PRESENCE OF AORTOCORONARY BYPASS GRAFT (10) Hemoptysis, unspecified Code(s): R04.2 - HEMOPTYSIS (11) Pulmonary nodule Code(s): R91.1 - SOLITARY PULMONARY NODULE Assessment/Plan IMP ALTERED MENTAL STATUS LIKELY SECONDARY PAIN MEDS IMPROVED ESRD ON HD RECENT HEMOPTYSIS IMPROVING S/P FLEX BRONCH CARDIOMYOPATHY PULMONARY NODULES ASHD S/P CABG,S/P PPM/ICD HTN HLD PLAN INHALED BRONCHODILATORS O2 HD PER RENAL MONITOR MENTAL STATUS QUANTIFY HEMOPTYSIS F/U CHEST CT 4-[address] GAMINO Problem List - Problems (1) Altered mental status Code(s): R41.82 - ALTERED MENTAL STATUS, UNSPECIFIED Qualifiers: Altered mental status type: unspecified Qualified Code(s): R41.82 - Altered mental status, unspecified (2) ASHD (arteriosclerotic heart disease) Code(s): I25.10 - ATHSCL HEART DISEASE OF [place] CORONARY ARTERY W/O ANG PCTRS (3) COPD (chronic obstructive pulmonary disease) Code(s): J44.9 - CHRONIC OBSTRUCTIVE PULMONARY DISEASE, UNSPECIFIED Qualifiers: COPD type: unspecified COPD Qualified Code(s): J44.9 - Chronic obstructive pulmonary disease, unspecified (4) ESRD (end stage renal disease) on dialysis Code(s): N18.6 - END STAGE RENAL DISEASE; Z99.2 - DEPENDENCE ON RENAL DIALYSIS (5) HTN (hypertension) Code(s): I10 - ESSENTIAL (PRIMARY) HYPERTENSION Qualifiers: Hypertension type: essential hypertension Qualified Code(s): I10 - Essential (primary) hypertension (6) Hemoptysis Code(s): R04.2 - HEMOPTYSIS (7) ICD (implantable cardioverter-defibrillator) in place Code(s): Z95.810 - PRESENCE OF AUTOMATIC (IMPLANTABLE) CARDIAC DEFIBRILLATOR (8) Ischemic dilated cardiomyopathy Code(s): I25.5 - ISCHEMIC CARDIOMYOPATHY; I42.0 - DILATED CARDIOMYOPATHY (9) S/P CABG (coronary artery bypass graft) Code(s): Z95.1 - PRESENCE OF AORTOCORONARY BYPASS GRAFT (10) Hemoptysis, unspecified Code(s): R04.2 - HEMOPTYSIS (11) Pulmonary nodule Code(s): R91.1 - SOLITARY PULMONARY NODULE
[2018-07-28 15:11] LABS: ANION GAP 7 MMOL/L (8-16); BLOOD UREA NITROGEN 8 mg/dL (7-18); CALCIUM 8.4 mg/dL (8.5-10.1); CHLORIDE 101 mmol/L (98-107); CO2 33 mmol/L (21-32); CREATININE 1.9 mg/dL (0.55-1.3); GLUCOSE,RANDOM 161 mg/dL (74-106); POTASSIUM 3.1 mmol/L (3.5-5.1); SODIUM 141 mmol/L (136-145)
[2018-07-28] MEDS: CALCIUM ACETATE 667 MG CAPSULE (FP) PO SCH ×2 (16:07→18:40)
[2018-07-28] MEDS: CHOLECALCIFEROL (VITAMIN D3) 1,000 UNIT TABLET (FP) PO SCH (16:08)
[2018-07-28] MEDS: CLOPIDOGREL BISULFATE 75 MG TABLET (FP) PO SCH (16:08)
[2018-07-28] MEDS: VITAMIN B COMP W-C 1 EA TABLET PO SCH (16:08)
[2018-07-28] MEDS: ASPIRIN 81 MG CHEWABLE TABLETS PO SCH (16:08)
[2018-07-28] MEDS: PANTOPRAZOLE 40 MG TABLET (FP) PO SCH (16:14)
--- NOTE | 2018-07-28 18:01 | EKG ---
Test Reason : Blood Pressure : / mmHG Vent. Rate : 080 BPM Atrial Rate : 080 BPM P-R Int : 244 ms QRS Dur : 098 ms QT Int : 442 ms P-R-T Axes : 076 003 141 degrees QTc Int : 509 ms Atrial-paced rhythm with prolonged AV conduction NONSPECIFIC ST AND T WAVE ABNORMALITY PROLONGED QT ABNORMAL ECG WHEN COMPARED WITH ECG OF 26-JUL-2018 18:59, NO SIGNIFICANT CHANGE WAS FOUND Confirmed by CARLOS JENNINGS, MARY ([id number]) on 07/28/2018 6:01:16 PM Referred By: Deric MCLEAN Confirmed By:MARY GONZALEZ MD
--- NOTE | 2018-07-28 18:35 | PN ---
Progress Note (short form) - Note Progress Note: covering dr hebert Problems 1. ESRD 2. hemoptysis 3. DM 4. CAD 5. PVD 6. DFU 7. anemia 8. hx steal syndrome s/p DRIL procedure 9. CHF 10. pulmonary nodules 11. change in mental status Current Medications Albuterol Sulfate (Ventolin 0.083% Nebulizer Soln -) 1 amp NEB Q4H PRN PRN Reason: SHORT OF BREATH/WHEEZING Aspirin (Asa -) 81 mg PO DAILY [facility] Last Admin: 07/28/18 16:08 Dose: 81 mg Atorvastatin Calcium (Lipitor -) 80 mg PO HS [facility] Last Admin: 07/27/18 21:24 Dose: 80 mg Calcium Acetate (Phoslo -) 667 mg PO TIDCM [facility] Last Admin: 07/28/18 16:07 Dose: Not Given Cholecalciferol (Vitamin D3 -) 1,000 unit PO DAILY [facility] Last Admin: 07/28/18 16:08 Dose: 1,000 unit Clopidogrel Bisulfate (Plavix -) 75 mg PO DAILY [facility] Last Admin: 07/28/18 16:08 Dose: 75 mg Heparin Sodium (Porcine) (Heparin -) 5,000 unit SQ TID [facility] Last Admin: 07/28/18 16:09 Dose: Not Given Insulin Aspart (Novolog Vial Sliding Scale -) 1 vial SQ [facility]; Protocol Last Admin: 07/28/18 17:17 Dose: 4 units Levothyroxine Sodium (Synthroid -) 25 mcg PO DAILY@0700 [facility] Last Admin: 07/28/18 06:11 Dose: 25 mcg Melatonin (Melatonin) 3 mg PO [facility] Last Admin: 07/27/18 21:25 Dose: 3 mg Metoprolol Succinate (Toprol Xl -) 150 mg PO DAILY [facility] Last Admin: 07/28/18 16:14 Dose: 150 mg Multi-Ingredient Lotion (Eucerin (Small Jar) -) 1 applic TP TID [facility] Last Admin: 07/28/18 16:09 Dose: 1 applic Multivit/Ca Carb/B Cmplx/FA/Prenat (Nephro-Misty -) 1 tablet PO DAILY [facility] Last Admin: 07/28/18 16:08 Dose: 1 tablet Pantoprazole Sodium (Protonix -) 40 mg PO DAILY [facility] Last Admin: 10/20/18 16:14 Dose: 40 mg Senna (Senna -) 1 tab PO HS [facility] Last Admin: 07/27/18 21:24 Dose: 1 tab Sertraline HCl (Zoloft -) 50 mg PO HS [facility] Last Admin: 07/27/18 21:24 Dose: 50 mg Last Vital Signs Temp Pulse Resp BP Pulse Ox 97.8 F 80 20 142/62 96 07/28/18 14:37 07/28/18 14:37 07/28/18 14:37 07/28/18 14:37 07/27/18 11:12 CBC, BMP 07/27/18 06:00 07/28/18 14:00 Hypokalemia- may be nutritional ESRD hemoptysis DM ashd/CAD s/p cabg/HF/Cardiomyopathy s/p ppm/ICD PVD DFU anemia hx steal syndrome s/p DRIL procedure CHF pulmonary nodules acute change in mental status from meds RECENT HEMOPTYSIS IMPROVING S/P FLEX BRONCH ASHD S/P CABG,S/P PPM/ICD HLD Plan- encourage better nutrition bmp in am to f/u k level PLAN INHALED BRONCHODILATORS O2 HD PER RENAL MONITOR MENTAL STATUS QUANTIFY HEMOPTYSIS F/U CHEST CT 4-6 WKS
[2018-07-28] MEDS: ATORVASTATIN CA 80 MG TABLET (FP) PO SCH (21:27)
[2018-07-28] MEDS: SERTRALINE HCL 50 MG TABLET (FP) PO SCH (21:27)
[2018-07-28] MEDS: SENNOSIDES 8.6MG TABLET (FP) PO SCH (21:27)
[2018-07-28] MEDS ORDERED: IBUPROFEN 600 MG TABLET (FP) PO ONE (23:00)
[2018-07-28] MEDS: MELATONIN 1 MG TABLET PO SCH (23:02)
[2018-07-29] MEDS: INSULIN SLIDING SCALE (NOVOLOG) 1 VIAL SQ SCH ×5 (06:03→22:09)
[2018-07-29] MEDS: HEPARIN NA (PORCINE) 5,000 UNITS/ML 1ML VIAL SQ SCH ×3 (06:04→22:05)
[2018-07-29] MEDS: LEVOTHYROXINE NA 25 MCG TABLET (FP) PO SCH (06:04)
[2018-07-29] MEDS: MINERAL OIL/PETROLAT/WATER TOPICAL CREAM 113 GM JAR TP SCH ×3 (06:05→22:05)
[2018-07-29 08:09] LABS: ALBUMIN 2.8 g/dl (3.4-5.0); ALK PHOS 117 U/L (45-117); ANION GAP 8 MMOL/L (8-16); BILIRUBIN,TOTAL 0.7 mg/dL (0.2-1); BLOOD UREA NITROGEN 19 mg/dL (7-18); CHLORIDE 100 mmol/L (98-107); CO2 31 mmol/L (21-32); CREATININE 4.3 mg/dL (0.55-1.3); GLUCOSE,RANDOM 142 mg/dL (74-106); PHOSPHOROUS 2.3 mg/dL (2.5-4.9); POTASSIUM 4.3 mmol/L (3.5-5.1); SGOT/AST 22 U/L (15-37); SGPT/ALT < 6 U/L (13-61); SODIUM 139 mmol/L (136-145); TOT PROT 6.8 g/dl (6.4-8.2)
[2018-07-29] MEDS: CALCIUM ACETATE 667 MG CAPSULE (FP) PO SCH ×3 (09:32→17:40)
[2018-07-29] MEDS: ASPIRIN 81 MG CHEWABLE TABLETS PO SCH (09:33)
[2018-07-29] MEDS: CLOPIDOGREL BISULFATE 75 MG TABLET (FP) PO SCH (09:33)
[2018-07-29] MEDS: PANTOPRAZOLE 40 MG TABLET (FP) PO SCH (09:33)
[2018-07-29] MEDS: VITAMIN B COMP W-C 1 EA TABLET PO SCH (09:33)
[2018-07-29] MEDS: CHOLECALCIFEROL (VITAMIN D3) 1,000 UNIT TABLET (FP) PO SCH (09:35)
--- NOTE | 2018-07-29 11:12 | PN ---
Progress Note (short form) - Note Progress Note: awake and alert has some hemoptysis though it is better No SOB no chest pain Vital Signs - 24 hr 07/28/18 07/28/18 07/28/18 11:40 12:10 12:40 Temperature Pulse Rate 81 81 81 Respiratory 18 18 18 Rate Blood Pressure 157/76 167/60 138/63 07/28/18 07/28/18 07/28/18 13:10 13:40 14:00 Temperature Pulse Rate 80 81 80 Respiratory 18 18 18 Rate Blood Pressure 131/71 159/69 162/76 07/28/18 07/28/18 07/28/18 14:37 18:00 22:00 Temperature 97.8 F 98.3 F 98.4 F Pulse Rate 80 82 80 Respiratory 20 20 20 Rate Blood Pressure 142/62 135/62 132/65 07/29/18 07/29/18 02:00 05:49 Temperature 98.6 F 98.2 F Pulse Rate 80 83 Respiratory 20 20 Rate Blood Pressure 152/73 149/73 Current Medications Generic Name Dose Route Start Last Admin Trade Name Freq PRN Reason Stop Dose Admin Albuterol Sulfate 1 amp 07/27/18 13:43 Ventolin 0.083% Nebulizer Soln - NEB Q4H PRN SHORT OF BREATH/WHEEZING Aspirin 81 mg 07/27/18 10:00 07/29/18 09:33 Asa - PO 81 mg DAILY [facility] Administration Atorvastatin Calcium 80 mg 07/27/18 22:00 07/28/18 21:27 Lipitor - PO 80 mg HS [facility] Administration Calcium Acetate 667 mg 07/27/18 12:00 07/29/18 09:32 Phoslo - PO 667 mg TIDCM [facility] Administration Cholecalciferol 1,000 unit 07/27/18 10:00 07/29/18 09:35 Vitamin D3 - PO 1,000 unit DAILY [facility] Administration Clopidogrel Bisulfate 75 mg 07/27/18 10:00 07/29/18 09:33 Plavix - PO 75 mg DAILY [facility] Administration Heparin Sodium (Porcine) 5,000 unit 07/27/18 06:45 07/29/18 06:04 Heparin - SQ 5,000 unit TID [facility] Administration Insulin Aspart 1 vial 07/27/18 07:00 07/29/18 06:03 Novolog Vial Sliding Scale - SQ Not Given [facility] Protocol Levothyroxine Sodium 25 mcg 07/27/18 08:45 07/29/18 06:04 Synthroid - PO 25 mcg DAILY@0700 [facility] Administration Melatonin 3 mg 07/27/18 22:00 07/28/18 23:02 Melatonin PO 3 mg HS [facility] Administration Metoprolol Succinate 150 mg 07/27/18 10:00 07/29/18 09:33 Toprol Xl - PO 150 mg DAILY [facility] Administration Multi-Ingredient Lotion 1 applic 07/28/18 06:00 07/29/18 06:05 Eucerin (Small Jar) - TP Not Given TID [facility] Multivit/Ca Carb/B Cmplx/FA/Prenat 1 tablet 07/27/18 10:00 07/29/18 09:33 Nephro-Misty - PO 1 tablet DAILY [facility] Administration Pantoprazole Sodium 40 mg 07/27/18 10:00 07/29/18 09:33 Protonix - PO 40 mg DAILY [facility] Administration Senna 1 tab 07/27/18 22:00 07/28/18 21:27 Senna - PO 1 tab HS [facility] Administration Sertraline HCl 50 mg 07/27/18 22:00 07/28/18 21:27 Zoloft - PO 50 mg HS [facility] Administration Laboratory Results - last 24 hr 07/28/18 07/28/18 07/28/18 14:00 14:00 17:14 Sodium 141 Potassium 3.1 L Chloride 101 Carbon Dioxide 33 H Anion Gap 7 L BUN 8 Cancelled Creatinine 1.9 H Cancelled Creat Clearance w eGFR 35.02 POC Glucometer 245 Random Glucose 161 H Calcium 8.4 L Phosphorus Magnesium Total Bilirubin AST ALT Alkaline Phosphatase Total Protein Albumin 07/28/18 07/29/18 07/29/18 21:23 06:02 06:20 Sodium 139 Potassium 4.3 Chloride 100 Carbon Dioxide 31 Anion Gap 8 BUN 19 H Creatinine 4.3 H Creat Clearance w eGFR 13.64 POC Glucometer 154 133 Random Glucose 142 H Calcium 8.0 L Phosphorus 2.3 L Magnesium 2.0 Total Bilirubin 0.7 AST 22 ALT < 6 L Alkaline Phosphatase 117 Total Protein 6.8 Albumin 2.8 L S1 S2 RRR Lungs clear Abd- soft, NT No edema PLAN Pt is at baseline HD per renal bronchoscopy did not show anything significant will need repeat ct chest in a month- to assess pulmonary nodule Likely cause of bleeding due to meds Stable for dc
--- NOTE | 2018-07-29 12:35 | PN ---
Progress Note, Physician History of Present Illness: pulmonary alert,no distress,-sob,less cough.-hemoptysis - Current Medication List Current Medications: Active Medications Albuterol Sulfate (Ventolin 0.083% Nebulizer Soln -) 1 amp NEB Q4H PRN PRN Reason: SHORT OF BREATH/WHEEZING Aspirin (Asa -) 81 mg PO DAILY [facility] Last Admin: 07/29/18 09:33 Dose: 81 mg Atorvastatin Calcium (Lipitor -) 80 mg PO HS [facility] Last Admin: 07/28/18 21:27 Dose: 80 mg Calcium Acetate (Phoslo -) 667 mg PO TIDCM [facility] Last Admin: 07/29/18 09:32 Dose: 667 mg Cholecalciferol (Vitamin D3 -) 1,000 unit PO DAILY [facility] Last Admin: 07/29/18 09:35 Dose: 1,000 unit Clopidogrel Bisulfate (Plavix -) 75 mg PO DAILY [facility] Last Admin: 07/29/18 09:33 Dose: 75 mg Heparin Sodium (Porcine) (Heparin -) 5,000 unit SQ TID [facility] Last Admin: 07/29/18 06:04 Dose: 5,000 unit Insulin Aspart (Novolog Vial Sliding Scale -) 1 vial SQ [facility]; Protocol Last Admin: 07/29/18 06:03 Dose: Not Given Levothyroxine Sodium (Synthroid -) 25 mcg PO DAILY@0700 [facility] Last Admin: 07/29/18 06:04 Dose: 25 mcg Melatonin (Melatonin) 3 mg PO [facility] Last Admin: 07/28/18 23:02 Dose: 3 mg Metoprolol Succinate (Toprol Xl -) 150 mg PO DAILY [facility] Last Admin: 07/29/18 09:33 Dose: 150 mg Multi-Ingredient Lotion (Eucerin (Small Jar) -) 1 applic TP TID [facility] Last Admin: 07/29/18 06:05 Dose: Not Given Multivit/Ca Carb/B Cmplx/FA/Prenat (Nephro-Misty -) 1 tablet PO DAILY [facility] Last Admin: 07/29/18 09:33 Dose: 1 tablet Pantoprazole Sodium (Protonix -) 40 mg PO DAILY [facility] Last Admin: 07/29/18 09:33 Dose: 40 mg Senna (Senna -) 1 tab PO [facility] Last Admin: 07/28/18 21:27 Dose: 1 tab Sertraline HCl (Zoloft -) 50 mg PO HS [facility] Last Admin: 07/28/18 21:27 Dose: 50 mg - Objective Vital Signs: Vital Signs Temperature 98.2 F 07/29/18 05:49 Pulse Rate 83 07/29/18 05:49 Respiratory Rate 20 07/29/18 05:49 Blood Pressure 149/73 07/29/18 05:49 O2 Sat by Pulse Oximetry (%) 96 07/27/18 11:12 Constitutional: Yes: Well Nourished, Calm Eyes: Yes: WNL HENT: Yes: WNL Neck: Yes: WNL Cardiovascular: Yes: Regular Rate and Rhythm, S1, S2 Respiratory: Yes: Rales (few crackles left) Gastrointestinal: Yes: Normal Bowel Sounds, Soft Extremities: Yes: WNL Edema: No Labs: CBC, BMP 07/29/18 06:20 INR, PTT INR 1.10 (0.83-1.09) H 07/26/18 20:17 Problem List - Problems (1) Altered mental status Code(s): R41.82 - ALTERED MENTAL STATUS, UNSPECIFIED Qualifiers: Altered mental status type: unspecified Qualified Code(s): R41.82 - Altered mental status, unspecified (2) ASHD (arteriosclerotic heart disease) Code(s): I25.10 - ATHSCL HEART DISEASE OF [place] CORONARY ARTERY W/O ANG PCTRS (3) COPD (chronic obstructive pulmonary disease) Code(s): J44.9 - CHRONIC OBSTRUCTIVE PULMONARY DISEASE, UNSPECIFIED Qualifiers: COPD type: unspecified COPD Qualified Code(s): J44.9 - Chronic obstructive pulmonary disease, unspecified (4) ESRD (end stage renal disease) on dialysis Code(s): N18.6 - END STAGE RENAL DISEASE; Z99.2 - DEPENDENCE ON RENAL DIALYSIS (5) HTN (hypertension) Code(s): I10 - ESSENTIAL (PRIMARY) HYPERTENSION Qualifiers: Hypertension type: essential hypertension Qualified Code(s): I10 - Essential (primary) hypertension (6) Hemoptysis Code(s): R04.2 - HEMOPTYSIS (7) ICD (implantable cardioverter-defibrillator) in place Code(s): Z95.810 - PRESENCE OF AUTOMATIC (IMPLANTABLE) CARDIAC DEFIBRILLATOR (8) Ischemic dilated cardiomyopathy Code(s): I25.5 - ISCHEMIC CARDIOMYOPATHY; I42.0 - DILATED CARDIOMYOPATHY (9) S/P CABG (coronary artery bypass graft) Code(s): Z95.1 - PRESENCE OF AORTOCORONARY BYPASS GRAFT (10) Hemoptysis, unspecified Code(s): R04.2 - HEMOPTYSIS (11) Pulmonary nodule Code(s): R91.1 - SOLITARY PULMONARY NODULE Assessment/Plan IMP ALTERED MENTAL STATUS LIKELY SECONDARY PAIN MEDS IMPROVED ESRD ON HD RECENT HEMOPTYSIS IMPROVING S/P FLEX BRONCH CARDIOMYOPATHY PULMONARY NODULES ASHD S/P CABG,S/P PPM/ICD HTN HLD PLAN INHALED BRONCHODILATORS O2 HD PER RENAL MONITOR MENTAL STATUS QUANTIFY HEMOPTYSIS F/U CHEST CT 4-[address] GAMINO Problem List - Problems (1) Altered mental status Code(s): R41.82 - ALTERED MENTAL STATUS, UNSPECIFIED Qualifiers: Altered mental status type: unspecified Qualified Code(s): R41.82 - Altered mental status, unspecified (2) ASHD (arteriosclerotic heart disease) Code(s): I25.10 - ATHSCL HEART DISEASE OF [place] CORONARY ARTERY W/O ANG PCTRS (3) COPD (chronic obstructive pulmonary disease) Code(s): J44.9 - CHRONIC OBSTRUCTIVE PULMONARY DISEASE, UNSPECIFIED Qualifiers: COPD type: unspecified COPD Qualified Code(s): J44.9 - Chronic obstructive pulmonary disease, unspecified (4) ESRD (end stage renal disease) on dialysis Code(s): N18.6 - END STAGE RENAL DISEASE; Z99.2 - DEPENDENCE ON RENAL DIALYSIS (5) HTN (hypertension) Code(s): I10 - ESSENTIAL (PRIMARY) HYPERTENSION Qualifiers: Hypertension type: essential hypertension Qualified Code(s): I10 - Essential (primary) hypertension (6) Hemoptysis Code(s): R04.2 - HEMOPTYSIS (7) ICD (implantable cardioverter-defibrillator) in place Code(s): Z95.810 - PRESENCE OF AUTOMATIC (IMPLANTABLE) CARDIAC DEFIBRILLATOR (8) Ischemic dilated cardiomyopathy Code(s): I25.5 - ISCHEMIC CARDIOMYOPATHY; I42.0 - DILATED CARDIOMYOPATHY (9) S/P CABG (coronary artery bypass graft) Code(s): Z95.1 - PRESENCE OF AORTOCORONARY BYPASS GRAFT (10) Hemoptysis, unspecified Code(s): R04.2 - HEMOPTYSIS (11) Pulmonary nodule Code(s): R91.1 - SOLITARY PULMONARY NODULE
--- NOTE | 2018-07-29 18:37 | PN ---
Progress Note (short form) - Note Progress Note: covering dr hebert Problems 1. ESRD 2. hemoptysis 3. DM 4. CAD 5. PVD 6. DFU 7. anemia 8. hx steal syndrome s/p DRIL procedure 9. CHF 10. pulmonary nodules 11. change in mental status Current Medications Albuterol Sulfate (Ventolin 0.083% Nebulizer Soln -) 1 amp NEB Q4H PRN PRN Reason: SHORT OF BREATH/WHEEZING Aspirin (Asa -) 81 mg PO DAILY [facility] Last Admin: 07/29/18 09:33 Dose: 81 mg Atorvastatin Calcium (Lipitor -) 80 mg PO HS [facility] Last Admin: 07/28/18 21:27 Dose: 80 mg Calcium Acetate (Phoslo -) 667 mg PO TIDCM [facility] Last Admin: 07/29/18 17:40 Dose: 667 mg Cholecalciferol (Vitamin D3 -) 1,000 unit PO DAILY [facility] Last Admin: 07/29/18 09:35 Dose: 1,000 unit Clopidogrel Bisulfate (Plavix -) 75 mg PO DAILY [facility] Last Admin: 07/29/18 09:33 Dose: 75 mg Heparin Sodium (Porcine) (Heparin -) 5,000 unit SQ TID [facility] Last Admin: 07/29/18 14:03 Dose: Not Given Insulin Aspart (Novolog Vial Sliding Scale -) 1 vial SQ [facility]; Protocol Last Admin: 07/29/18 17:19 Dose: Not Given Levothyroxine Sodium (Synthroid -) 25 mcg PO DAILY@0700 [facility] Last Admin: 07/29/18 06:04 Dose: 25 mcg Melatonin (Melatonin) 3 mg PO [facility] Last Admin: 07/28/18 23:02 Dose: 3 mg Metoprolol Succinate (Toprol Xl -) 150 mg PO DAILY [facility] Last Admin: 07/29/18 09:33 Dose: 150 mg Multi-Ingredient Lotion (Eucerin (Small Jar) -) 1 applic TP TID [facility] Last Admin: 07/29/18 14:03 Dose: 1 applic Multivit/Ca Carb/B Cmplx/FA/Prenat (Nephro-Misty -) 1 tablet PO DAILY [facility] Last Admin: 07/29/18 09:33 Dose: 1 tablet Pantoprazole Sodium (Protonix -) 40 mg PO DAILY [facility] Last Admin: 07/29/18 09:33 Dose: 40 mg Senna (Senna -) 1 tab PO HS [facility] Last Admin: 07/28/18 21:27 Dose: 1 tab Sertraline HCl (Zoloft -) 50 mg PO HS [facility] Last Admin: 07/28/18 21:27 Dose: 50 mg Last Vital Signs Temp Pulse Resp BP Pulse Ox 97.6 F 80 20 147/68 96 07/29/18 14:58 07/29/18 14:58 07/29/18 14:58 07/29/18 14:58 07/27/18 11:12 Lungs clear Heart reg Abd soft nontender Ext no edema left foot wound is dressed BMP 07/29/18 06:20 CBC, BMP 07/27/18 06:00 07/28/18 14:00 Hypokalemia- may be nutritional ESRD hemoptysis DM ashd/CAD s/p cabg/HF/Cardiomyopathy s/p ppm/ICD PVD DFU anemia hx steal syndrome s/p DRIL procedure CHF pulmonary nodules acute change in mental status from meds RECENT HEMOPTYSIS IMPROVING S/P FLEX BRONCH ASHD S/P CABG,S/P PPM/ICD HLD Plan- encourage better nutrition bmp in am to f/u k level PLAN INHALED BRONCHODILATORS O2 HD PER RENAL MONITOR MENTAL STATUS QUANTIFY HEMOPTYSIS F/U CHEST CT 4-6 WKS
--- NOTE | 2018-07-29 19:11 | DS ---
Physical Examination Vital Signs: Vital Signs Temperature 97.9 F 07/29/18 18:35 Pulse Rate 82 07/29/18 18:35 Respiratory Rate 20 07/29/18 18:35 Blood Pressure 149/74 07/29/18 18:35 O2 Sat by Pulse Oximetry (%) 96 07/27/18 11:12 Labs: CBC, BMP 07/27/18 06:00 07/29/18 06:20 Discharge Summary Reason For Visit: ALT MENTAL STATUS Current Active Problems Altered mental status (Acute) Hemoptysis, unspecified (Acute) Pneumonia (Acute) Pulmonary nodule (Acute) Hospital Course: see progress note Condition: Stable - Instructions Referrals: Nery Umanzor MD [Primary Care Provider] - - Home Medications Comprehensive Discharge Medication List: Ambulatory Orders Acetaminophen 650 mg PO Q4H PRN 02/28/18 Aspirin [ASA -] 81 mg PO DAILY 02/28/18 Atorvastatin Ca [Lipitor] 80 mg PO HS 02/28/18 Calcium Acetate [Phoslo -] 667 mg PO TIDCM 02/28/18 Clopidogrel Bisulfate [Plavix -] 75 mg PO DAILY 02/28/18 Levothyroxine [Synthroid -] 25 mcg PO DAILY 02/28/18 Metoprolol Succinate [Toprol Xl] 150 mg PO DAILY 02/28/18 Pantoprazole Sodium 40 mg PO DAILY 02/28/18 Sennosides [Senna -] 1 tab PO HS 02/28/18 Sertraline HCl [Zoloft -] 50 mg PO HS 02/28/18 Heparin - 5,000 unit SQ BID #1 vial 03/10/18 Albuterol 0.083% Nebulizer Yessi [Ventolin 0.083% Nebulizer Soln -] 1 amp IN Q8H PRN 03/28/18 Melatonin 3 mg PO HS 04/21/18 Cefazolin [Ancef] 3 gm IV WEEKLY 07/13/18 Cholecalciferol (Vitamin D3) [Vitamin D3] 1,000 unit PO DAILY 07/13/18 Insulin Sliding Scale [Novolog Vial Sliding Scale -] 0 units SQ BID 07/13/18 Oxycodone HCl/Acetaminophen [Percocet 10-325 mg Tablet] 1 each PO BID 07/13/18 Vitamin B Comp W-C [Nephro-Misty -] 1 tablet PO DAILY 07/13/18 Vit A/Vitamin D3/E/Aloe V/Zinc [Periguard Ointment] 5 gm TP TID 07/14/18
[2018-07-29] MEDS: ATORVASTATIN CA 80 MG TABLET (FP) PO SCH (22:05)
[2018-07-29] MEDS: SENNOSIDES 8.6MG TABLET (FP) PO SCH (22:06)
[2018-07-29] MEDS: MELATONIN 1 MG TABLET PO SCH (22:06)
[2018-07-29] MEDS: SERTRALINE HCL 50 MG TABLET (FP) PO SCH (22:07)
[2018-07-30] MEDS: HEPARIN NA (PORCINE) 5,000 UNITS/ML 1ML VIAL SQ SCH ×2 (05:47→14:55)
[2018-07-30] MEDS: MINERAL OIL/PETROLAT/WATER TOPICAL CREAM 113 GM JAR TP SCH ×2 (05:47→14:56)
[2018-07-30] MEDS: INSULIN SLIDING SCALE (NOVOLOG) 1 VIAL SQ SCH ×2 (06:04→12:27)
[2018-07-30] MEDS: LEVOTHYROXINE NA 25 MCG TABLET (FP) PO SCH (06:05)
[2018-07-30] MEDS: CHOLECALCIFEROL (VITAMIN D3) 1,000 UNIT TABLET (FP) PO SCH (09:33)
[2018-07-30] MEDS: PANTOPRAZOLE 40 MG TABLET (FP) PO SCH (09:33)
[2018-07-30] MEDS: CALCIUM ACETATE 667 MG CAPSULE (FP) PO SCH ×2 (09:33→12:27)
[2018-07-30] MEDS: ASPIRIN 81 MG CHEWABLE TABLETS PO SCH (09:33)
[2018-07-30] MEDS: CLOPIDOGREL BISULFATE 75 MG TABLET (FP) PO SCH (09:34)
[2018-07-30] MEDS: VITAMIN B COMP W-C 1 EA TABLET PO SCH (09:35)
[2018-07-30 11:11] VITALS: TEMP 97.9
--- NOTE | 2018-07-30 11:13 | PN ---
Progress Note (short form) - Note Progress Note: PULMONARY Still with dark sputum. No shortness of breath or chest pain. Vital Signs Period Temp Pulse Resp BP Sys/Lopez Pulse Ox Last 24 Hr 97.6 F-98.8 F 80-82 18-20 145-149/68-74 96-96 Gen: NAD at rest Heart: RRR Lung: decreased breath sounds at the bases Abd: soft, nontender Ext: no edema CBC, BMP 07/27/18 06:00 07/29/18 06:20 Active Medications Albuterol Sulfate (Ventolin 0.083% Nebulizer Soln -) 1 amp NEB Q4H PRN PRN Reason: SHORT OF BREATH/WHEEZING Aspirin (Asa -) 81 mg PO DAILY [facility] Last Admin: 07/30/18 09:33 Dose: 81 mg Atorvastatin Calcium (Lipitor -) 80 mg PO HS [facility] Last Admin: 07/29/18 22:05 Dose: 80 mg Calcium Acetate (Phoslo -) 667 mg PO TIDCM [facility] Last Admin: 07/30/18 09:33 Dose: 667 mg Cholecalciferol (Vitamin D3 -) 1,000 unit PO DAILY [facility] Last Admin: 07/30/18 09:33 Dose: 1,000 unit Clopidogrel Bisulfate (Plavix -) 75 mg PO DAILY [facility] Last Admin: 07/30/18 09:34 Dose: 75 mg Heparin Sodium (Porcine) (Heparin -) 5,000 unit SQ TID [facility] Last Admin: 07/30/18 05:47 Dose: 5,000 unit Insulin Aspart (Novolog Vial Sliding Scale -) [address] [facility]; Protocol Last Admin: 07/30/18 06:04 Dose: Not Given Levothyroxine Sodium (Synthroid -) 25 mcg PO DAILY@0700 [facility] Last Admin: 07/30/18 06:05 Dose: 25 mcg Melatonin (Melatonin) 3 mg PO HS [facility] Last Admin: 07/29/18 22:06 Dose: 3 mg Metoprolol Succinate (Toprol Xl -) 150 mg PO DAILY [facility] Last Admin: 07/30/18 09:33 Dose: 150 mg Multi-Ingredient Lotion (Eucerin (Small Jar) -) 1 applic TP TID [facility] Last Admin: 07/30/18 05:47 Dose: Not Given Multivit/Ca Carb/B Cmplx/FA/Prenat (Nephro-Misty -) 1 tablet PO DAILY [facility] Last Admin: 07/30/18 09:35 Dose: 1 tablet Pantoprazole Sodium (Protonix -) 40 mg PO DAILY [facility] Last Admin: 07/30/18 09:33 Dose: 40 mg Senna (Senna -) 1 tab PO HS [facility] Last Admin: 07/29/18 22:06 Dose: 1 tab Sertraline HCl (Zoloft -) 50 mg PO [facility] Last Admin: 07/29/18 22:07 Dose: 50 mg A/P Altered Mental Status improved Hemoptysis ESRD on HD Severe LV Systolic Dysfunction Lung Nodules CAD s/p CABG HTN Hyperlipidemia - monitor hemoptysis - continue ASA, plavix - HD per renal - outpt f/u of lung nodules - DVT prophylaxis
[2018-07-30 14:38] VITALS: BP 145/67; PULSE 83
--- NOTE | 2018-07-30 14:59 | PN ---
Progress Note, Physician History of Present Illness: Pt seen and examined at bedside. He is awake and alert. He denies shortness of breath. - Current Medication List Current Medications: Active Medications Albuterol Sulfate (Ventolin 0.083% Nebulizer Soln -) 1 amp NEB Q4H PRN PRN Reason: SHORT OF BREATH/WHEEZING Aspirin (Asa -) 81 mg PO DAILY [facility] Last Admin: 07/30/18 09:33 Dose: 81 mg Atorvastatin Calcium (Lipitor -) 80 mg PO [facility] Last Admin: 07/29/18 22:05 Dose: 80 mg Calcium Acetate (Phoslo -) 667 mg PO TIDCM [facility] Last Admin: 07/30/18 12:27 Dose: 667 mg Cholecalciferol (Vitamin D3 -) 1,000 unit PO DAILY [facility] Last Admin: 07/30/18 09:33 Dose: 1,000 unit Clopidogrel Bisulfate (Plavix -) 75 mg PO DAILY [facility] Last Admin: 07/30/18 09:34 Dose: 75 mg Heparin Sodium (Porcine) (Heparin -) 5,000 unit SQ TID [facility] Last Admin: 07/30/18 14:55 Dose: 5,000 unit Insulin Aspart (Novolog Vial Sliding Scale -) 1 vial SQ [facility]; Protocol Last Admin: 07/30/18 12:27 Dose: 4 units Levothyroxine Sodium (Synthroid -) 25 mcg PO DAILY@0700 [facility] Last Admin: 07/30/18 06:05 Dose: 25 mcg Melatonin (Melatonin) 3 mg PO [facility] Last Admin: 07/29/18 22:06 Dose: 3 mg Metoprolol Succinate (Toprol Xl -) 150 mg PO DAILY [facility] Last Admin: 07/30/18 09:33 Dose: 150 mg Multi-Ingredient Lotion (Eucerin (Small Jar) -) 1 applic TP TID [facility] Last Admin: 07/30/18 14:56 Dose: 1 applic Multivit/Ca Carb/B Cmplx/FA/Prenat (Nephro-Misty -) 1 tablet PO DAILY [facility] Last Admin: 07/30/18 09:35 Dose: 1 tablet Pantoprazole Sodium (Protonix -) 40 mg PO DAILY [facility] Last Admin: 07/30/18 09:33 Dose: 40 mg Senna (Senna -) 1 tab PO [facility] Last Admin: 07/29/18 22:06 Dose: 1 tab Sertraline HCl (Zoloft -) 50 mg PO HS [facility] Last Admin: 07/29/18 22:07 Dose: 50 mg - Objective Vital Signs: Vital Signs Temperature 97.9 F 07/30/18 14:36 Pulse Rate 83 07/30/18 14:36 Respiratory Rate 20 07/30/18 14:36 Blood Pressure 145/67 07/30/18 14:36 O2 Sat by Pulse Oximetry (%) 96 07/30/18 10:00 Constitutional: Yes: Calm Eyes: Yes: Conjunctiva Clear HENT: Yes: Atraumatic Neck: Yes: Supple Cardiovascular: Yes: S1, S2 Respiratory: Yes: CTA Bilaterally Gastrointestinal: Yes: Soft Genitourinary: Yes: WNL Edema: No Wound/Incision: Yes: Dressing Dry and Intact Neurological: Yes: Oriented Psychiatric: Yes: Oriented Labs: CBC, BMP 07/27/18 06:00 07/29/18 06:20 INR, PTT INR 1.10 (0.83-1.09) H 07/26/18 20:17 Problem List - Problems (1) Altered mental status Code(s): R41.82 - ALTERED MENTAL STATUS, UNSPECIFIED Qualifiers: Altered mental status type: unspecified Qualified Code(s): R41.82 - Altered mental status, unspecified (2) ESRD (end stage renal disease) Code(s): N18.6 - END STAGE RENAL DISEASE Assessment/Plan Current Medications Generic Name Dose Route Start Last Admin Trade Name Freq PRN Reason Stop Dose Admin Albuterol Sulfate 1 amp 07/27/18 13:43 Ventolin 0.083% Nebulizer Soln - NEB Q4H PRN SHORT OF BREATH/WHEEZING Aspirin 81 mg 07/27/18 10:00 07/30/18 09:33 Asa - PO 81 mg DAILY [facility] Administration Atorvastatin Calcium 80 mg 07/27/18 22:00 07/29/18 22:05 Lipitor - PO 80 mg HS [facility] Administration Calcium Acetate 667 mg 07/27/18 12:00 07/30/18 12:27 Phoslo - PO 667 mg TIDCM [facility] Administration Cholecalciferol 1,000 unit 07/27/18 10:00 07/30/18 09:33 Vitamin D3 - PO 1,000 unit DAILY [facility] Administration Clopidogrel Bisulfate 75 mg 07/27/18 10:00 07/30/18 09:34 Plavix - PO 75 mg DAILY [facility] Administration Heparin Sodium (Porcine) 5,000 unit 07/27/18 06:45 07/30/18 14:55 Heparin - SQ 5,000 unit TID [facility] Administration Insulin Aspart 1 vial 07/27/18 07:00 07/30/18 12:27 Novolog Vial Sliding Scale - SQ 4 units ACHS [facility] Administration Protocol Levothyroxine Sodium 25 mcg 07/27/18 08:45 07/30/18 06:05 Synthroid - PO 25 mcg DAILY@0700 [facility] Administration Melatonin 3 mg 07/27/18 22:00 07/29/18 22:06 Melatonin PO 3 mg HS [facility] Administration Metoprolol Succinate 150 mg 07/27/18 10:00 07/30/18 09:33 Toprol Xl - PO 150 mg DAILY [facility] Administration Multi-Ingredient Lotion 1 applic 07/28/18 06:00 07/30/18 14:56 Eucerin (Small Jar) - TP 1 applic TID [facility] Administration Multivit/Ca Carb/B Cmplx/FA/Prenat 1 tablet 07/27/18 10:00 07/30/18 09:35 Nephro-Misty - PO 1 tablet DAILY [facility] Administration Pantoprazole Sodium 40 mg 07/27/18 10:00 07/30/18 09:33 Protonix - PO 40 mg DAILY [facility] Administration Senna 1 tab 07/27/18 22:00 07/29/18 22:06 Senna - PO 1 tab HS [facility] Administration Sertraline HCl 50 mg 07/27/18 22:00 07/29/18 22:07 Zoloft - PO 50 mg HS [facility] Administration Impression 1. ESRD 2. hemoptysis 3. DM 4. CAD 5. PVD 6. DFU 7. anemia 8. hx steal syndrome s/p DRIL procedure 9. CHF 10. pulmonary nodules 11. change in mental status Plan - pt has HD scheduled as outpt tomorrow - avoid sedatives - mental status stable - epogen for anemia - will follow Dr Dove
== END 2018-07-30 15:50 ==
LOC: JER 18:19 → JERBED 07-27 04:43 → J7W 07-27 07:15
PROVIDERS: ADMIT Internal Medicine; ATTEND Internal Medicine
PROC: 3E03329 Introduction of Other Anti-infective into Peripheral Vein, Percutaneous Approach (ICD-10-PCS; principal; 2018-07-27)
PROC: 3E033GC Introduction of Other Therapeutic Substance into Peripheral Vein, Percutaneous Approach (ICD-10-PCS; 2018-07-27)
PROC: 3E013VG Introduction of Insulin into Subcutaneous Tissue, Percutaneous Approach (ICD-10-PCS; 2018-07-27)
DX: R41.82 Altered mental status, unspecified (principal); E11.22 Type 2 diabetes mellitus with diabetic chronic kidney disease; I12.0 Hypertensive chronic kidney disease with stage 5 chronic kidney disease or end stage renal disease; N18.6 End stage renal disease; Z99.2 Dependence on renal dialysis; Z87.891 Personal history of nicotine dependence; Z79.4 Long term (current) use of insulin; I25.10 Atherosclerotic heart disease of native coronary artery without angina pectoris; J44.9 Chronic obstructive pulmonary disease, unspecified; R04.2 Hemoptysis; E78.5 Hyperlipidemia, unspecified; E03.9 Hypothyroidism, unspecified; I73.9 Peripheral vascular disease, unspecified; I48.91 Unspecified atrial fibrillation; I25.2 Old myocardial infarction; F03.90 Unspecified dementia, unspecified severity, without behavioral disturbance, psychotic disturbance, mood disturbance, and anxiety; F32.9 Major depressive disorder, single episode, unspecified; K59.00 Constipation, unspecified; I25.5 Ischemic cardiomyopathy; G62.9 Polyneuropathy, unspecified; D64.9 Anemia, unspecified; I34.0 Nonrheumatic mitral (valve) insufficiency; F41.9 Anxiety disorder, unspecified; J90 Pleural effusion, not elsewhere classified; R91.1 Solitary pulmonary nodule; Z89.412 Acquired absence of left great toe; Z79.82 Long term (current) use of aspirin; Z95.1 Presence of aortocoronary bypass graft; Z95.5 Presence of coronary angioplasty implant and graft; Z95.810 Presence of automatic (implantable) cardiac defibrillator; Z96.641 Presence of right artificial hip joint; Z86.73 Personal history of transient ischemic attack (TIA), and cerebral infarction without residual deficits
CPT/HCPCS: 36415; 70450-TC; 71045-TC-FY; 80048; 80053; 81003; 81015; 82803; 82962; 83605; 83735; 84100; 84484; 85025; 85027; 85610; 85730; 87040; 87086; 93005; 93010; 96365; 96368; 96372; 96375; 99284-25; G0378; J0885; J1644

== ENCOUNTER 2018-08-16 12:59 | Inpatient (IN) | payer OTHER ==
--- NOTE | 2018-08-16 13:41 | PDOC ---
History of Present Illness - General Chief Complaint: Wound Stated Complaint: WOUND INFECTION LEFT FOOT Time Seen by Provider: 08/16/18 13:41 History Source: Patient Exam Limitations: No Limitations - History of Present Illness Initial Comments: 08/16/18 14:25 Patient is a 72-year-old male with past medical history of CAD status post CABG , hypertension, hyperlipidemia, hypothyroidism, PVD status post left great toe amputation, and end-stage renal disease on dialysis Monday, and Monday (dialyzed prior to arrival today) who presents to the emergency department from wound care for a wound infection, as well as exposed bone to the old left toe amputation site. His title officer Dr. Prasad intends to taken to the OR tomorrow for closure of the amputation site. Patient states that he has some pain to the left foot; otherwise patient has no complaints at this time. Denies fevers, chills, nausea, vomiting, leg pain, numbness and tingling to the extremities and weakness to the extremities. Pt is currently at [facility] Sent to the ED by Dr. Umanzor in wound care Past History - Travel Traveled outside of the country in the last 30 days: No Close contact w/someone who was outside of country & ill: No - Past Medical History Allergies/Adverse Reactions: Allergies Allergy/AdvReac Type Severity Reaction Status Date / Time acetaminophen [From Percocet] Allergy Verified 08/16/18 13:05 oxycodone [From Percocet] Allergy Verified 08/16/18 13:05 gabapentin [From Neurontin] AdvReac Verified 08/16/18 13:05 Home Medications: Ambulatory Orders Acetaminophen 650 mg PO Q4H PRN 02/28/18 Aspirin [ASA -] 81 mg PO DAILY 02/28/18 Atorvastatin Ca [Lipitor] 80 mg PO HS 02/28/18 Calcium Acetate [Phoslo -] 667 mg PO TIDCM 02/28/18 Clopidogrel Bisulfate [Plavix -] 75 mg PO DAILY 02/28/18 Levothyroxine [Synthroid -] 25 mcg PO DAILY 02/28/18 Metoprolol Succinate [Toprol Xl] 150 mg PO DAILY 02/28/18 Pantoprazole Sodium 40 mg PO DAILY 02/28/18 Sennosides [Senna -] 1 tab PO HS 02/28/18 Sertraline HCl [Zoloft -] 50 mg PO HS 02/28/18 Heparin - 5,000 unit SQ BID #1 vial 03/10/18 Albuterol 0.083% Nebulizer Yessi [Ventolin 0.083% Nebulizer Soln -] 1 amp IN Q8H PRN 03/28/18 Melatonin 3 mg PO HS 04/21/18 Cefazolin [Ancef] 3 gm IV WEEKLY 07/13/18 Cholecalciferol (Vitamin D3) [Vitamin D3] 1,000 unit PO DAILY 07/13/18 Insulin Sliding Scale [Novolog Vial Sliding Scale -] 0 units SQ BID 07/13/18 Oxycodone HCl/Acetaminophen [Percocet 10-325 mg Tablet] 1 each PO BID 07/13/18 Vitamin B Comp W-C [Nephro-Misty -] 1 tablet PO DAILY 07/13/18 Vit A/Vitamin D3/E/Aloe V/Zinc [Periguard Ointment] 5 gm TP TID 07/14/18 Cardiac Disorders: Yes (CAD, A Fib, PPM) COPD: Yes CHF: Yes Dementia: Yes (pt verbalizing he is forgetful some times) Diabetes: Yes (Type 2) Dialysis: Yes GI Disorders: Yes (bleed) Disorders: Yes (HEMO DIALYSIS ON MON, , SAT) HTN: Yes Hypercholesterolemia: Yes Liver Disease: Yes (DIC) Psychiatric Problems: Yes (depression, dementia) Thyroid Disease: Yes (Hypothyroidism) - Surgical History Cardiac Surgery: Yes (CABG x 3, PPM, Defibrillator) Orthopedic Surgery: Yes (Right hip replacement) - Suicide/Smoking/Psychosocial Hx Smoking History: Never smoked Have you smoked in the past 12 months: No Number of Cigarettes Smoked Daily: 5 If you are a former smoker, when did you quit?: 2005 Cigars Per Day: 0 Information on smoking cessation initiated: No Hx Alcohol Use: No Drug/Substance Use Hx: No Substance Use Type: None Hx Substance Use Treatment: No Review of Systems - Review of Systems Able to Perform ROS?: Yes Comments:: 08/16/18 15:09 CONSTITUTIONAL: Absent: fever, chills, diaphoresis, generalized weakness, malaise, loss of appetite HEENT: Absent: rhinorrhea, nasal congestion, throat pain, throat swelling, difficulty swallowing, mouth swelling, ear pain, eye pain, visual Changes CARDIOVASCULAR: Absent: chest pain, loss of consciousness, palpitations, irregular heart rate, peripheral edema RESPIRATORY: Absent: cough, shortness of breath, dyspnea with exertion, orthopnea, wheezing, stridor, hemoptysis GASTROINTESTINAL: Absent: abdominal pain, abdominal distension, nausea, vomiting, diarrhea, constipation, melena, hematochezia GENITOURINARY: Absent: dysuria, frequency, urgency, hesitancy, hematuria, flank pain, genital pain MUSCULOSKELETAL: Present: L foot pain at the amputation site Absent: myalgia, arthralgia, joint swelling SKIN: Absent: rash, itching, pallor HEMATOLOGIC/IMMUNOLOGIC: Absent: easy bleeding, easy bruising, lymphadenopathy, frequent infections ENDOCRINE: Absent: unexplained weight gain, unexplained weight loss, heat intolerance, cold intolerance NEUROLOGIC: Absent: headache, focal weakness or paresthesias, dizziness, unsteady gait, seizure, mental status changes, bladder or bowel incontinence PSYCHIATRIC: Absent: anxiety, depression, suicidal or homicidal ideation, hallucinations. Is the patient limited Indian proficient: No *Physical Exam - Vital Signs Last Vital Signs Temp Pulse Resp BP Pulse Ox 98.5 F 80 19 133/53 L 98 08/16/18 13:02 08/16/18 13:02 08/16/18 13:02 08/16/18 13:02 08/16/18 13:02 - Physical Exam Comments: 08/16/18 18:13 GENERAL: Well developed, well nourished. Awake and alert. No acute distress. HEENT: Normocephalic, atraumatic. PERRLA, EOMI. No conjunctival pallor. Sclera are non- icteric. Moist mucous membranes. Oropharynx is clear. NECK: Supple. Full ROM. No JVD. Carotid pulses 2+ and symmetric, without bruits. No thyromegaly. No lymphadenopathy. CARDIOVASCULAR: Regular rate and rhythm. No murmurs, rubs, or gallops. Distal pulses are 2+ and symmetric. PULMONARY: No evidence of respiratory distress. Lungs clear to auscultation bilaterally. No wheezing, rales or rhonchi. ABDOMINAL: Soft. Non-tender. Non-distended. No rebound or guarding. No organomegaly. Normoactive bowel sounds. MUSCULOSKELETAL Exposed bone measuring approximately 1 cm to the medial aspect of the L 1st toe amputation site. Smaller ulcer approximately 0.5cm round present laterally to the exposed bone Normal range of motion at all joints. No CVA tenderness. EXTREMITIES: No cyanosis. No clubbing. No edema. No calf tenderness. SKIN: Warm and dry. Normal capillary refill. No rashes. No jaundice. NEUROLOGICAL: Alert, awake, appropriate. Cranial nerves 2-12 intact. No deficits to light touch and temperature in face, upper extremities and lower extremities. No motor deficits in the in face, upper extremities and lower extremities. Normoreflexic in the upper and lower extremities. Normal speech. Toes are down- going bilaterally. Gait is normal without ataxia. PSYCHIATRIC: Cooperative. Good eye contact. Appropriate mood and affect. ED Treatment Course - LABORATORY CBC & Chemistry Diagram: 08/16/18 14:41 08/16/18 14:41 Medical Decision Making - Medical Decision Making 08/16/18 15:45 Patient is a 72-year-old male with past medical history of CAD status post CABG , hypertension, hyperlipidemia, hypothyroidism, PVD status post left great toe amputation, and end-stage renal disease on dialysis Monday, and Monday (dialyzed prior to arrival today) who presents to the emergency department from wound care for a wound infection, as well as exposed bone to the old left toe amputation site. -On exam patient with 1 cm round ulcer with exposed bone from left 1st toe amputation site. -Blood cultures drawn -Patient given dose of IV vancomycin and Zosyn in the emergency department -Spoke with wound care, they advocated that podiatry will be coming to do revision surgery tomorrow. -Patient will need to be admitted once rest of the labs are back. 08/16/18 16:42 - No leukocytosis at this time, or shift -Patient states potassium is 4.1 at this time consistent with being dialyzed today. -Call to Dr. Rainey placed 08/16/18 17:05 -No call back from Dr. Rainey. After 5pm. Call placed to [facility] for admission 08/16/18 17:12 -Call received from [facility], case discussed and accepts pt for admission. *DC/Admit/Observation/Transfer Diagnosis at time of Disposition: Wound infection - Discharge Dispostion Condition at time of disposition: Stable Decision to Admit order: Yes - Referrals Referrals: Nery Umanzor MD [Primary Care Provider] - - Patient Instructions - Post Discharge Activity
[2018-08-16 14:54] LABS: BASO % 1.2 % (0-2.0); EOS % 2.5 % (0-4.5); HEMATOCRIT 31.2 % (35.4-49); HEMOGLOBIN 10.3 GM/dL (11.7-16.9); MCH 29.1 pg (25.7-33.7); MEAN CELL VOLUME 88.2 fl (80-96); MEAN PLT VOLUME 8.8 fl (7.5-11.1); MONO % 9.6 % (3.8-10.2); NEUT % 75.7 % (42.8-82.8); PLATELET COUNT 180 K/MM3 (134-434); RBC 3.54 M/mm3 (4.00-5.60); RDW 19.2 % (11.9-15.9)
[2018-08-16 15:15] LABS: INR 1.03 (0.83-1.09); PROTHROMBIN TIME (PATIENT) 12.2 SEC (9.7-13.0)
[2018-08-16 15:39] LABS: ALBUMIN 3.4 g/dl (3.4-5.0); ALK PHOS 197 U/L (45-117); ANION GAP 10 MMOL/L (8-16); BILIRUBIN,TOTAL 0.3 mg/dL (0.2-1); BLOOD UREA NITROGEN 18 mg/dL (7-18); CALCIUM 8.5 mg/dL (8.5-10.1); CHLORIDE 94 mmol/L (98-107); CO2 31 mmol/L (21-32); CREATININE 3.6 mg/dL (0.55-1.3); GLUCOSE,RANDOM 268 mg/dL (74-106); POTASSIUM 4.1 mmol/L (3.5-5.1); SGOT/AST 28 U/L (15-37); SGPT/ALT 9 U/L (13-61); SODIUM 135 mmol/L (136-145); TOT PROT 7.4 g/dl (6.4-8.2)
--- NOTE | 2018-08-16 17:04 | PN ---
Progress Note (short form) - Note Progress Note: Vascular Surgery Pt here in ER with exposed bone after sutures removed from left great toe amp site. Pt going for revision of amputation nitish by podiatry. Pt had angiogram done in june that showed two vessel runoff into foot. Stents are patent. US in july shows good perfusion to left foot Cleared for podiatry intervention nitish. Robel Nieves DO
[2018-08-16] MEDS ORDERED: VANCOMYCIN 1,000 MG in DEXTROSE 5%-WATER - 250 ML IVPB ONE (17:43)
[2018-08-16] MEDS ORDERED: PIPERACILLIN/TAZOB 3.375 GM 3.375 GM in DEXTROSE 5%-WATER - 50 ML IVPB ONE (17:43)
[2018-08-16] MEDS ORDERED: PIPERACILLIN/TAZOB 3.375 GM 3.375 GM/50 ML BAG IVPB ONE (18:11)
[2018-08-16] MEDS ORDERED: ALBUTEROL SO4 0.083% IH SOL 2.5 MG/3 ML VIAL.NEB. NEB PRN (19:02)
[2018-08-16] MEDS ORDERED: VANCOMYCIN 1 GRAM (PRE-DOCKED) 1,000 MG/250 ML BAG IVPB ONE (19:14)
[2018-08-16] MEDS ORDERED: CEFAZOLIN IV SCH (19:15)
[2018-08-16 20:11] VITALS: BMI 19.8
[2018-08-16] MEDS: INSULIN SLIDING SCALE (NOVOLOG) 1 VIAL SQ SCH ×2 (20:34→20:43)
[2018-08-16] MEDS: ACETAMINOPHEN 325 MG TABLET (FP) PO PRN (21:19)
[2018-08-16] MEDS ORDERED: ATORVASTATIN CA 80 MG TABLET (FP) PO SCH (22:00)
[2018-08-16] MEDS ORDERED: MELATONIN 1 MG TABLET PO SCH (22:00)
[2018-08-16] MEDS ORDERED: SENNOSIDES 8.6MG TABLET (FP) PO SCH (22:00)
[2018-08-16] MEDS ORDERED: SERTRALINE HCL 50 MG TABLET (FP) PO SCH (22:00)
--- NOTE | 2018-08-16 22:00 | HP ---
CHIEF COMPLAINT: Opening of left great toe amputation site PCP: Dr. Umanzor HISTORY OF PRESENT ILLNESS: 72 year old male with a PMH significant for CAD s/p CABG, HTN, HLD, hypothyroidism, PVD, ESRD on HS (//Mon), hx of osteomyelitis, DM, pacemaker placement who presents in the ED from [facility]. with dehiscence and bone exposure of left great toe amputation site from a few weeks ago. Truck Despatcher Dr. Garcia will perform revision surgery in the OR tomorrow for closure of the amputation site. Patient reports pain to the left foot. Denies fevers, dizziness, syncope, chest pain, SOB chills, nausea, vomiting, leg pain, numbness and tingling to the extremities and weakness to the extremities. Patient given a dose of Vancomycin and Zosyn in the ED. Recent Travel: No PAST MEDICAL HISTORY: CAD status post CABG Hypertension Hyperlipidemia Hypothyroidism PVD s/p LGT amputation, ESRD on Dialysis PAST SURGICAL HISTORY: L Great toe amputation R hip ORIF AVG R upper arm SFA atherectomy + DCB angioplasty w/ stent placement Pacemaker Social History: Smoking: Former, quit 14 years ago, Used to smoke 1 PPD x15 years Alcohol: 5-6 beers/weekend Drugs: No Family History: Mom- DM, at 63 Dad- DM, at 97 Brother- DM Sister-kidney disease, at 68 Brother- DM, at 75 Brother- Parkinsons Allergies acetaminophen [From Percocet] Allergy (Verified 08/16/18 13:05) oxycodone [From Percocet] Allergy (Verified 08/16/18 13:05) gabapentin [From Neurontin] Adverse Reaction (Verified 08/16/18 13:05) HOME MEDICATIONS: Home Medications Medication Instructions Recorded Acetaminophen 650 mg PO Q4H PRN 02/28/18 Aspirin [ASA -] 81 mg PO DAILY 02/28/18 Atorvastatin Ca [Lipitor] 80 mg PO HS 02/28/18 Calcium Acetate [Phoslo -] 667 mg PO TIDCM 02/28/18 Clopidogrel Bisulfate [Plavix -] 75 mg PO DAILY 02/28/18 Levothyroxine [Synthroid -] 25 mcg PO DAILY 02/28/18 Metoprolol Succinate [Toprol Xl] 150 mg PO DAILY 02/28/18 Pantoprazole Sodium 40 mg PO DAILY 02/28/18 Sennosides [Senna -] 1 tab PO HS 02/28/18 Sertraline HCl [Zoloft -] 50 mg PO HS 02/28/18 Heparin - 5,000 unit SQ BID #1 vial 03/10/18 Albuterol 0.083% Nebulizer Yessi 1 amp IN Q8H PRN 03/28/18 [Ventolin 0.083% Nebulizer Soln -] Melatonin 3 mg PO HS 04/21/18 Cefazolin [Ancef] 3 gm IV WEEKLY 07/13/18 Cholecalciferol (Vitamin D3) 1,000 unit PO DAILY 07/13/18 [Vitamin D3] Insulin Sliding Scale [Novolog 0 units SQ BID 07/13/18 Vial Sliding Scale -] Oxycodone HCl/Acetaminophen 1 each PO BID 07/13/18 [Percocet 10-325 mg Tablet] Vitamin B Comp W-C [Nephro-Misty -] 1 tablet PO DAILY 07/13/18 Vit A/Vitamin D3/E/Aloe V/Zinc 5 gm TP TID 07/14/18 [Periguard Ointment] REVIEW OF SYSTEMS CONSTITUTIONAL: Absent: fever, chills, diaphoresis, generalized weakness, malaise, loss of appetite, weight change HEENT: Absent: rhinorrhea, nasal congestion, throat pain, throat swelling, difficulty swallowing, mouth swelling, ear pain, eye pain, visual changes CARDIOVASCULAR: Absent: chest pain, syncope, palpitations, irregular heart rate, lightheadedness , peripheral edema RESPIRATORY: Absent: cough, shortness of breath, dyspnea with exertion, orthopnea, wheezing, stridor, hemoptysis GASTROINTESTINAL: Absent: abdominal pain, abdominal distension, nausea, vomiting, diarrhea, constipation, melena, hematochezia GENITOURINARY: Absent: dysuria, frequency, urgency, hesitancy, hematuria, flank pain, genital pain MUSCULOSKELETAL: (+++ Left foot pain) Absent: myalgia, arthralgia, joint swelling, back pain, neck pain SKIN: Absent: rash, itching, pallor HEMATOLOGIC/IMMUNOLOGIC: Absent: easy bleeding, easy bruising, lymphadenopathy, frequent infections ENDOCRINE: Absent: unexplained weight gain, unexplained weight loss, heat intolerance, cold intolerance NEUROLOGIC: Absent: headache, focal weakness or paresthesias, dizziness, unsteady gait, seizure, mental status changes, bladder or bowel incontinence PSYCHIATRIC: Absent: anxiety, depression, suicidal or homicidal ideation, hallucinations. PHYSICAL EXAMINATION Vital Signs - 24 hr 08/16/18 08/16/18 13:02 19:50 Temperature 98.5 F 98.6 F Pulse Rate 80 80 Respiratory 19 20 Rate Blood Pressure 133/53 L 154/67 O2 Sat by Pulse 98 100 Oximetry (%) GENERAL: Thin, frail, awake, alert, and fully oriented, in no acute distress. HEAD: Normal with no signs of trauma. EYES: Pupils equal, round and reactive to light, extraocular movements intact, sclera anicteric, conjunctiva clear. No lid lag. EARS, NOSE, THROAT: Ears normal, nares patent, oropharynx clear without exudates. Moist mucous membranes. NECK: Normal range of motion, supple without lymphadenopathy, JVD, or masses. LUNGS: Breath sounds equal, clear to auscultation bilaterally. No wheezes, and no crackles. No accessory muscle use. HEART: Regular rate and rhythm, normal S1 and S2 without murmur, rub or gallop. ABDOMEN: Soft, nontender, not distended, normoactive bowel sounds, no guarding, no rebound, no masses. No hepatomegaly or splenomegaly. MUSCULOSKELETAL: Normal range of motion at all joints. No bony deformities or tenderness. No CVA tenderness. UPPER EXTREMITIES: +AV fistula to RUE, 2+ pulses, warm, well-perfused. No cyanosis. No clubbing. No peripheral edema. LOWER EXTREMITIES: Exposed bone measuring approximately 1 cm to the medial aspect of the L 1st toe amputation site. Smaller ulcer approximately 0.5cm round present laterally to the exposed bone. No calf tenderness. No peripheral edema. NEUROLOGICAL: Cranial nerves II-XII intact. Normal speech. Normal gait. PSYCHIATRIC: Cooperative. Good eye contact. Appropriate mood and affect. SKIN: Warm, dry, normal turgor, no rashes or lesions noted, normal capillary refill. Laboratory Results - last 24 hr 08/16/18 08/16/18 08/16/18 14:41 14:41 14:41 WBC 6.0 RBC 3.54 L Hgb 10.3 L Hct 31.2 L MCV 88.2 MCH 29.1 MCHC 33.0 RDW 19.2 H Plt Count 180 MPV 8.8 Absolute Neuts (auto) 4.6 Neutrophils % 75.7 Lymphocytes % 11.0 Monocytes % 9.6 Eosinophils % 2.5 Basophils % 1.2 Nucleated RBC % 0 ESR PT with INR 12.20 INR 1.03 Sodium 135 L Potassium 4.1 Chloride 94 L Carbon Dioxide 31 Anion Gap 10 BUN 18 Creatinine 3.6 H Creat Clearance w eGFR 16.75 POC Glucometer Random Glucose 268 H Calcium 8.5 Total Bilirubin 0.3 AST 28 ALT 9 L Alkaline Phosphatase 197 H C-Reactive Protein Total Protein 7.4 Albumin 3.4 08/16/18 08/16/18 08/16/18 14:41 14:41 20:22 WBC RBC Hgb Hct MCV MCH MCHC RDW Plt Count MPV Absolute Neuts (auto) Neutrophils % Lymphocytes % Monocytes % Eosinophils % Basophils % Nucleated RBC % ESR 101 H PT with INR INR Sodium Potassium Chloride Carbon Dioxide Anion Gap BUN Creatinine Creat Clearance w eGFR POC Glucometer 216 Random Glucose Calcium Total Bilirubin AST ALT Alkaline Phosphatase C-Reactive Protein 1.0 H Total Protein Albumin ASSESSMENT/PLAN: 72 year old male with a PMH significant for CAD s/p CABG, HTN, HLD, hypothyroidism, PVD, ESRD on HS (//Mon), hx of osteomyelitis, DM, pacemaker placement who presents in the ED with dehiscence of left great toe amputation site from a few weeks ago. Patient was admitted for revision surgery. Left Great Toe Amputation Dehiscence -Angiogram from 06/2018 showed two vessel runoff into left foot, s -US in july shows good perfusion to left foot Pt here in ER with exposed bone after sutures removed from -NPO after midnight -Wound care to site - Pending ESRD -HD (,MON) -was dialyzed today prior to ED admission CAD s/p CABG Hold home meds until after surgery: -Aspirin 81 mg PO QD -Plavix 75 mg PO QD Hypothyroidism Resume home med: -Levothyroxine 25 mcg PO QD HTN Resume home med: -Metoprolol 150 mg PO QD HLD Resume home med: -Atorvastatin 80 mg PO HS DM -ISS ACHS -BGMs ACHS Depression Resume home med: -Zoloft 50 mg PO HS Constipation Resume home med: -Senna 1 tab PO HS Prophylaxis -DVT: SCDs, re-start ASA and plavix following surgery -GI: Protonix 40 mg PO QD FEN -PO intake adequate -Replentish lytes as needed -NPO until midnight then renal diet FULL Code Disp: Patient requires surgical intervention and inpatient are. Visit type - Emergency Visit Emergency Visit: Yes ED Registration Date: 08/16/18 Care time: The patient presented to the Emergency Department on the above date and was hospitalized for further evaluation of their emergent condition. - New Patient This patient is new to me today: Yes Date on this admission: 08/16/18 - Critical Care Critical Care patient: No
[2018-08-16 22:37] LABS: URINE APPEARANCE CLEAR; URINE BILIRUBIN NEGATIVE (<2.0 mg/dL); URINE COLOR YELLOW; URINE GLUCOSE (UA) 3+ (NEGATIVE); URINE KETONE NEGATIVE (NEGATIVE); URINE LEUK ESTERASE NEGATIVE (NEGATIVE); URINE NITRITE NEGATIVE (NEGATIVE); URINE PROTEIN 3+ (NEGATIVE); URINE UROBILINOGEN NEGATIVE mg/dL (0.2-1.0)
[2018-08-16 22:48] LABS: EPI CELLS RARE /HPF (FEW); URINE MUCUS RARE
[2018-08-17] MEDS: ACETAMINOPHEN 325 MG TABLET (FP) PO PRN (01:44)
[2018-08-17] MEDS: INSULIN SLIDING SCALE (NOVOLOG) 1 VIAL SQ SCH ×3 (06:01→16:21)
[2018-08-17] MEDS ORDERED: LEVOTHYROXINE NA 25 MCG TABLET (FP) PO SCH (07:00)
[2018-08-17] MEDS: CALCIUM ACETATE 667 MG CAPSULE (FP) PO SCH ×3 (08:18→17:40)
[2018-08-17] MEDS ORDERED: LIDOCAINE HCL 1%, 10 MG/ML (20ML VIAL) ONE (09:59)
[2018-08-17] MEDS ORDERED: BUPIVACAINE HCL/PF 0.5% (5MG/ML) 10 ML VIAL ONE (09:59)
[2018-08-17] MEDS ORDERED: DEXAMETHASONE SOD PHOSPHATE 4 MG/1 ML VIAL ONE (09:59)
[2018-08-17] MEDS ORDERED: GENTAMICIN SO4 80 MG/2 ML VIAL ONE (09:59)
[2018-08-17] MEDS ORDERED: ASPIRIN 81 MG CHEWABLE TABLETS PO SCH (10:00)
[2018-08-17] MEDS ORDERED: CHOLECALCIFEROL (VITAMIN D3) 1,000 UNIT TABLET (FP) PO SCH (10:00)
[2018-08-17] MEDS ORDERED: PANTOPRAZOLE 40 MG TABLET (FP) PO SCH (10:00)
[2018-08-17] MEDS ORDERED: MIDAZOLAM HCL 2 MG/2 ML SINGLE DOSE VIAL ONE (10:18)
[2018-08-17] MEDS ORDERED: PROPOFOL 20 ML ONE (10:34)
[2018-08-17] MEDS ORDERED: ceFAZolin SODIUM 1 GM VIAL ONE (10:39)
[2018-08-17] MEDS ORDERED: ceFAZolin SODIUM 1 GM VIAL IVPB ONE (10:41)
[2018-08-17] MEDS ORDERED: BUPIVACAINE HCL/PF 0.5% (5MG/ML) 10 ML VIAL IJ ONE (10:50)
[2018-08-17] MEDS ORDERED: LIDOCAINE HCL 1%, 10 MG/ML (20ML VIAL) PNB ONE (10:50)
[2018-08-17] MEDS ORDERED: BACITRACIN 50,000 UNITS VIAL TP ONE (11:01)
[2018-08-17] MEDS ORDERED: ONDANSETRON 4 MG/2 ML VIAL IVPUSH PRN (11:35)
[2018-08-17] MEDS ORDERED: ALBUTEROL SO4 0.083% IH SOL 2.5 MG/3 ML VIAL.NEB. NEB PRN (12:29)
[2018-08-17] MEDS ORDERED: CEFAZOLIN IV SCH (12:29)
[2018-08-17] MEDS: PATIENT'S OWN MEDICATION (NON-FORMULARY) (Vit A/Vitamin D3/E/Aloe V/Zinc [Periguard Ointme TP SCH (12:37)
[2018-08-17] MEDS: PANTOPRAZOLE 40 MG TABLET (FP) PO SCH (13:22)
[2018-08-17] MEDS: CHOLECALCIFEROL (VITAMIN D3) 1,000 UNIT TABLET (FP) PO SCH (13:22)
[2018-08-17] MEDS: ASPIRIN 81 MG CHEWABLE TABLETS PO SCH (13:23)
[2018-08-17] MEDS ORDERED: PATIENT'S OWN MEDICATION (NON-FORMULARY) (Vit A/Vitamin D3/E/Aloe V/Zinc [Periguard Ointme TP SCH (14:00)
--- NOTE | 2018-08-17 17:04 | CONSULT ---
Consult Consult Specialty:: Nephrology Reason for Consultation:: ESRD - History of Present Illness Chief Complaint: sent in forleft foot surgery History of Present Illness: Pt is a 72 year old male with pmhx of ESRD, CAD, PVD, HTN, anemia and DM who was sent in for repear of exposed bone in left foot. He went to OR today. I was called to evaluate him as he is on HD. He is on a TTS schedule and is due for HD tomorrow. He denies shortness of breath. He is awake and alert. He denies fevers or chills. 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 Cardio/Vascular: Yes: AFIB, CAD, CHF, HTN, Hyperlipdemia, CT, Mitral Insufficiency Pulmonary: Yes: COPD Gastrointestinal: Yes: GI Bleed Renal/: Yes: Renal Failure, Hemodialysis Psych: Yes: Anxiety Musculoskeletal: Yes: Other Endocrine: Yes: Diabetes Mellitus Dermatology: Yes: Other (gangarene left big toe) - Past Surgical History Past Surgical History: Yes: AICD, AV Fistula/Graft, CABG - Alcohol/Substance Use Hx Alcohol Use: Yes (socially, not anymore) - Smoking History Smoking history: Never smoked Have you smoked in the past 12 months: No Aproximately how many cigarettes per day: 5 If you are a former smoker, when did you quit?: 2004 - Social History Usual Living Arrangement: [facility] History of Recent Travel: No Home Medications - Allergies Allergies/Adverse Reactions: Allergies Allergy/AdvReac Type Severity Reaction Status Date / Time oxycodone [From Percocet] Allergy Verified 08/16/18 13:05 gabapentin [From Neurontin] AdvReac Verified 08/16/18 13:05 - Home Medications Home Medications: Ambulatory Orders Acetaminophen 650 mg PO Q4H PRN 02/28/18 Aspirin [ASA -] 81 mg PO DAILY 02/28/18 Atorvastatin Ca [Lipitor] 80 mg PO HS 02/28/18 Calcium Acetate [Phoslo -] 667 mg PO TIDCM 02/28/18 Clopidogrel Bisulfate [Plavix -] 75 mg PO DAILY 02/28/18 Levothyroxine [Synthroid -] 25 mcg PO DAILY 02/28/18 Metoprolol Succinate [Toprol Xl] 150 mg PO DAILY 02/28/18 Pantoprazole Sodium 40 mg PO DAILY 02/28/18 Sennosides [Senna -] 1 tab PO HS 02/28/18 Sertraline HCl [Zoloft -] 50 mg PO HS 02/28/18 Heparin - 5,000 unit SQ BID #1 vial 03/10/18 Albuterol 0.083% Nebulizer Yessi [Ventolin 0.083% Nebulizer Soln -] 1 amp IN Q8H PRN 03/28/18 Melatonin 3 mg PO HS 04/21/18 Cefazolin [Ancef] 3 gm IV WEEKLY 07/13/18 Cholecalciferol (Vitamin D3) [Vitamin D3] 1,000 unit PO DAILY 07/13/18 Insulin Sliding Scale [Novolog Vial Sliding Scale -] 0 units SQ BID 07/13/18 Vitamin B Comp W-C [Nephro-Misty -] 1 tablet PO DAILY 07/13/18 Vit A/Vitamin D3/E/Aloe V/Zinc [Periguard Ointment] 5 gm TP TID 07/14/18 Family Disease History - Family Disease History Family History: Denies Review of Systems - Review of Systems Constitutional: reports: No Symptoms Eyes: reports: No Symptoms HENT: reports: No Symptoms Neck: reports: No Symptoms Cardiovascular: reports: No Symptoms Respiratory: reports: No Symptoms Gastrointestinal: reports: No Symptoms Genitourinary: reports: No Symptoms Musculoskeletal: reports: No Symptoms Integumentary: reports: No Symptoms Neurological: reports: No Symptoms Endocrine: reports: No Symptoms Hematology/Lymphatic: reports: No Symptoms Psychiatric: reports: No Symptoms Physical Exam Vital Signs: Vital Signs Temperature 98.1 F 08/17/18 15:01 Pulse Rate 80 08/17/18 15:01 Respiratory Rate 19 08/17/18 15:01 Blood Pressure 132/59 L 08/17/18 15:01 O2 Sat by Pulse Oximetry (%) 99 08/17/18 14:55 Constitutional: Yes: Calm Eyes: Yes: Conjunctiva Clear HENT: Yes: Atraumatic Neck: Yes: Supple Cardiovascular: Yes: S1, S2 Respiratory: Yes: CTA Bilaterally Gastrointestinal: Yes: Soft Renal/: Yes: WNL Edema: No Wound/Incision: Yes: Dressing Dry and Intact Neurological: Yes: Oriented Psychiatric: Yes: Oriented Labs: CBC, BMP 08/16/18 14:41 08/16/18 14:41 Problem List - Problems (1) Wound infection Code(s): T14.8XXA - OTHER INJURY OF UNSPECIFIED BODY REGION, INITIAL ENCOUNTER; L08.9 - LOCAL INFECTION OF THE SKIN AND SUBCUTANEOUS TISSUE, UNSP (2) Anemia Code(s): D64.9 - ANEMIA, UNSPECIFIED (3) CHF (congestive heart failure), NYHA class IV Code(s): I50.9 - HEART FAILURE, UNSPECIFIED Qualifiers: Congestive heart failure type: systolic Congestive heart failure chronicity : chronic Qualified Code(s): I50.22 - Chronic systolic (congestive) heart failure (4) ESRD (end stage renal disease) on dialysis Code(s): N18.6 - END STAGE RENAL DISEASE; Z99.2 - DEPENDENCE ON RENAL DIALYSIS (5) Gangrene Code(s): I96 - GANGRENE, NOT ELSEWHERE CLASSIFIED (6) HTN (hypertension) Code(s): I10 - ESSENTIAL (PRIMARY) HYPERTENSION Qualifiers: Hypertension type: essential hypertension Qualified Code(s): I10 - Essential (primary) hypertension Assessment/Plan Current Medications Generic Name Dose Route Start Last Admin Trade Name Freq PRN Reason Stop Dose Admin Albuterol Sulfate 1 amp 08/17/18 12:29 Ventolin 0.083% Nebulizer Soln - NEB Q8H PRN Dyspnea Aspirin 81 mg 08/18/18 10:00 08/17/18 13:23 Asa - PO 81 mg DAILY VALERY Administration Atorvastatin Calcium 80 mg 08/17/18 22:00 Lipitor - PO HS [facility] Calcium Acetate 667 mg 08/17/18 17:30 Phoslo - PO TIDCM VALERY Cholecalciferol 1,000 unit 08/18/18 10:00 08/17/18 13:22 Vitamin D3 - PO 1,000 unit DAILY VALERY Administration Insulin Aspart 1 vial 08/17/18 16:30 08/17/18 16:21 Novolog Vial Sliding Scale - SQ 6 units TIDAC [facility] Administration Protocol Levothyroxine Sodium 25 mcg 08/18/18 07:00 Synthroid - PO DAILY@0700 VALERY Melatonin 3 mg 08/17/18 22:00 Melatonin PO HS VALERY Metoprolol Succinate 150 mg 08/18/18 10:00 08/17/18 13:22 Toprol Xl - PO 150 mg DAILY VALERY Administration Non-Formulary Medication 3 gm 08/17/18 12:29 Cefazolin IV WEEKLY VALERY Non-Formulary Medication 5 gm 08/17/18 14:00 Vit A/Vitamin D3/E/Aloe V/Zinc [Periguard Ointment] TP TID VALERY Pantoprazole Sodium 40 mg 08/18/18 10:00 08/17/18 13:22 Protonix - PO 40 mg DAILY VALERY Administration Senna 1 tab 08/17/18 22:00 Senna - PO HS VALERY Sertraline HCl 50 mg 08/17/18 22:00 Zoloft - PO HS VALERY Impression 1. ESRD 2. hemoptysis 3. DM 4. CAD 5. PVD 6. DFU 7. anemia 8. hx steal syndrome s/p DRIL procedure 9. CHF 10. pulmonary nodules 11. change in mental status Plan - HD in am - called HD and informed staff, orders written - cont wound care - epogen for anemia - will follow
--- NOTE | 2018-08-17 20:13 | PN ---
Physical Exam: SUBJECTIVE: Patient seen and examined in his room. Patient had corrective surgery to left foot today with Dr. Garcia. Patient reports feeling well after the surgery, his pain is well-controlled, and he ate a full meal after the surgery. Denies JARRETT, chills, dizzyness, n/v/d, sob, or chest pain. OBJECTIVE: Vital Signs Period Temp Pulse Resp BP Sys/Lopez Pulse Ox Last 24 Hr 97.9 F-98.7 F 80-86 14-20 120-146/47-69 99-100 GENERAL: Pale, thin, frail, awake, alert, and fully oriented, in no acute distress. HEAD: Normal with no signs of trauma. EYES: Pupils equal, round and reactive to light, extraocular movements intact, sclera anicteric, conjunctiva clear. No lid lag. EARS, NOSE, THROAT: Ears normal, nares patent, oropharynx clear without exudates. Moist mucous membranes. NECK: Normal range of motion, supple without lymphadenopathy, JVD, or masses. LUNGS: Breath sounds equal, clear to auscultation bilaterally. No wheezes, and no crackles. No accessory muscle use. HEART: Regular rate and rhythm, normal S1 and S2 without murmur, rub or gallop. ABDOMEN: Soft, nontender, not distended, normoactive bowel sounds, no guarding, no rebound, no masses. No hepatomegaly or splenomegaly. MUSCULOSKELETAL: Normal range of motion at all joints. No bony deformities or tenderness. No CVA tenderness. UPPER EXTREMITIES: +AV fistula to RUE, 2+ pulses, warm, well-perfused. No cyanosis. No clubbing. No peripheral edema. LOWER EXTREMITIES: Left foot wrapped in gauze, no drainage to surgery, no swelling or erythema to LLE, No calf tenderness. NEUROLOGICAL: Cranial nerves II-XII intact. Normal speech. Normal gait. PSYCHIATRIC: Cooperative. Good eye contact. Appropriate mood and affect. SKIN: Warm, dry, normal turgor, no rashes or lesions noted, normal capillary refill. Laboratory Results - last 24 hr 08/16/18 08/16/18 08/17/18 20:22 22:15 05:59 POC Glucometer 216 158 Urine Color Yellow Urine Appearance Clear Urine pH 7.0 Ur Specific [place] 1.013 Urine Protein 3+ H Urine Glucose (UA) 3+ H Urine Ketones Negative Urine Blood 2+ H Urine Nitrite Negative Urine Bilirubin Negative Urine Urobilinogen Negative Ur Leukocyte Esterase Negative Urine WBC (Auto) 13 Urine RBC (Auto) 63 Ur Epithelial Cells Rare Urine Mucus Rare 08/17/18 16:20 POC Glucometer 289 Urine Color Urine Appearance Urine pH Ur Specific [place] Urine Protein Urine Glucose (UA) Urine Ketones Urine Blood Urine Nitrite Urine Bilirubin Urine Urobilinogen Ur Leukocyte Esterase Urine WBC (Auto) Urine RBC (Auto) Ur Epithelial Cells Urine Mucus Active Medications Generic Name Dose Route Start Last Admin Trade Name Freq PRN Reason Stop Dose Admin Albuterol Sulfate 1 amp 08/17/18 12:29 Ventolin 0.083% Nebulizer Soln - NEB Q8H PRN Dyspnea Aspirin 81 mg 08/18/18 10:00 08/17/18 13:23 Asa - PO 81 mg DAILY VALERY Administration Atorvastatin Calcium 80 mg 08/17/18 22:00 Lipitor - PO HS [facility] Calcium Acetate 667 mg 08/17/18 17:30 08/17/18 17:40 Phoslo - PO 667 mg TIDCM VALERY Administration Cholecalciferol 1,000 unit 08/18/18 10:00 08/17/18 13:22 Vitamin D3 - PO 1,000 unit DAILY [facility] Administration Epoetin Parmjit 5,000 unit 08/18/18 17:07 Epogen - IVPUSH 08/18/18 17:08 ONCE ONE Sodium Chloride 250 mls @ 3,000 mls/hr 08/17/18 17:07 Normal Saline - IV 08/18/18 17:07 PRN PRN Hypotension during Dialysis Insulin Aspart 1 vial 08/17/18 16:30 08/17/18 16:21 Novolog Vial Sliding Scale - SQ 6 units TIDAC VALERY Administration Protocol Levothyroxine Sodium 25 mcg 08/18/18 07:00 Synthroid - PO DAILY@0700 VALERY Melatonin 3 mg 08/17/18 22:00 Melatonin PO HS [facility] Metoprolol Succinate 150 mg 08/18/18 10:00 08/17/18 13:22 Toprol Xl - PO 150 mg DAILY VALERY Administration Non-Formulary Medication 3 gm 08/17/18 12:29 Cefazolin IV WEEKLY VALERY Non-Formulary Medication 5 gm 08/17/18 14:00 Vit A/Vitamin D3/E/Aloe V/Zinc [Periguard Ointment] TP TID VALERY Pantoprazole Sodium 40 mg 08/18/18 10:00 08/17/18 13:22 Protonix - PO 40 mg DAILY VALERY Administration Senna 1 tab 08/17/18 22:00 Senna - PO HS VALERY Sertraline HCl 50 mg 08/17/18 22:00 Zoloft - PO HS VALERY ASSESSMENT/PLAN: 72 year old male with a PMH significant for CAD s/p CABG, HTN, HLD, hypothyroidism, PVD, ESRD on HS (//Mon), hx of osteomyelitis, DM, pacemaker placement who presents in the ED with dehiscence of left great toe amputation site from a few weeks ago. Patient was admitted for revision surgery. Left Great Toe Amputation Dehiscence -Angiogram from 06/2018 showed two vessel runoff into left foot -US in july shows good perfusion to left foot -Exposed bone after sutures removed -Corrective surgery performed today by pocketbook maker Dr. Garcia -Wound care to site - Pending ESRD -HD (,,MON) -was dialyzed yesterday prior to ED admission -Seen by implementation analyst Dr. Dove -Orders written for patient to have HD tomorrow -Epogen for anemia CAD s/p CABG Hold home meds until after surgery: -Aspirin 81 mg PO QD -Plavix 75 mg PO QD Hypothyroidism Resume home med: -Levothyroxine 25 mcg PO QD HTN Resume home med: -Metoprolol 150 mg PO QD HLD Resume home med: -Atorvastatin 80 mg PO HS DM -ISS ACHS -BGMs ACHS Depression Resume home med: -Zoloft 50 mg PO HS Constipation Resume home med: -Senna 1 tab PO HS Prophylaxis -DVT: SCDs, ASA and plavix -GI: Protonix 40 mg PO QD FEN -PO intake adequate -Replentish lytes as needed -Renal diet FULL Code Disp: Patient requires further inpatient care but may be set to be d/kaia to [facility] tomorrow after dialysis. Visit type - Emergency Visit Emergency Visit: No - New Patient This patient is new to me today: No - Critical Care Critical Care patient: No
--- NOTE | 2018-08-17 20:39 | OP ---
Operative Note - Note: Operative Date: 08/17/18 Pre-Operative Diagnosis: Osteomyelitis left foot. Operation: Debridement of bone 1st met left with bone culture and wound culture. Findings: Necrotic bone and soft tissue. Post-Operative Diagnosis: Same as Pre-op Surgeon: Deandra Briceño Facsimile Machine Operator: Clinton Grewal Anesthesia: Local, MAC Specimens Removed: bone, necrotic tissue Estimated Blood Loss (mls): 20 Drains & Tubes with Location: 10/12" plain packing Operative Report Dictated: Yes
[2018-08-17] MEDS ORDERED: morphine CARPU-JECT 2 MG/1 ML DISP.SYRIN IVPUSH PRN (21:34)
[2018-08-17] MEDS ORDERED: PT OWN MED DRAWER 7, Y5N ONE (21:36)
[2018-08-17] MEDS: ATORVASTATIN CA 80 MG TABLET (FP) PO SCH (21:52)
[2018-08-17] MEDS: SENNOSIDES 8.6MG TABLET (FP) PO SCH (21:52)
[2018-08-17] MEDS: SERTRALINE HCL 50 MG TABLET (FP) PO SCH (21:53)
[2018-08-17] MEDS: MELATONIN 1 MG TABLET PO SCH (21:53)
[2018-08-17] MEDS ORDERED: INSULIN (NOVOLOG) ASPART 100 UNITS/ML 10ML VIAL ONE (21:56)
[2018-08-17] MEDS: ACETAMINOPHEN 500 MG TABLET (FP) PO PRN (22:03)
[2018-08-18] MEDS ORDERED: traMADol HCL 50 MG TABLET PO ONE (02:45)
[2018-08-18] MEDS: INSULIN SLIDING SCALE (NOVOLOG) 1 VIAL SQ SCH ×3 (06:30→17:59)
[2018-08-18] MEDS: LEVOTHYROXINE NA 25 MCG TABLET (FP) PO SCH (06:30)
[2018-08-18] MEDS: CALCIUM ACETATE 667 MG CAPSULE (FP) PO SCH ×3 (08:25→18:01)
[2018-08-18] MEDS ORDERED: PT OWN MED DRAWER 7, Y5N ONE (09:08)
[2018-08-18] MEDS: CHOLECALCIFEROL (VITAMIN D3) 1,000 UNIT TABLET (FP) PO SCH (09:10)
[2018-08-18] MEDS: ASPIRIN 81 MG CHEWABLE TABLETS PO SCH (09:10)
[2018-08-18] MEDS: CLOPIDOGREL BISULFATE 75 MG TABLET (FP) PO SCH (09:10)
[2018-08-18] MEDS: PANTOPRAZOLE 40 MG TABLET (FP) PO SCH (09:10)
--- NOTE | 2018-08-18 09:50 | PN ---
Progress Note (short form) - Note Progress Note: POD#!. Mild pain. vss, Tmax 98.2 dressing clean dry and intact, Normal post op Dressing change and packing pull tomorrow.
[2018-08-18] MEDS: ACETAMINOPHEN 500 MG TABLET (FP) PO PRN (11:09)
--- NOTE | 2018-08-18 13:12 | PN ---
Physical Exam: SUBJECTIVE: Patient seen and examined in his room. Patient had debridment of of bone to left 1st metatarsal with Dr. Garcia yesterday. Patient had some some pain in the evening for which he requested tylenol. He reports the tylenol was was not effective and he would like an order for something stronger for breakthrough pain. Pain at time of exam was minimal. He feels well and is eating well. Denies JARRETT, chills, dizzyness, n/v/d, sob, or chest pain. OBJECTIVE: Vital Signs Period Temp Pulse Resp BP Sys/Lopez Pulse Ox Last 24 Hr 97.4 F-98.5 F 80-84 18-20 127-140/54-67 99-99 GENERAL: Pale, thin, awake, alert, and fully oriented, in no acute distress. HEAD: Normal with no signs of trauma. EYES: Pupils equal, round and reactive to light, extraocular movements intact, sclera anicteric, conjunctiva clear. No lid lag. EARS, NOSE, THROAT: Ears normal, nares patent, oropharynx clear without exudates. Moist mucous membranes. NECK: Normal range of motion, supple without lymphadenopathy, JVD, or masses. LUNGS: Breath sounds equal, clear to auscultation bilaterally. No wheezes, and no crackles. No accessory muscle use. HEART: Regular rate and rhythm, normal S1 and S2 without murmur, rub or gallop. ABDOMEN: Soft, nontender, not distended, normoactive bowel sounds, no guarding, no rebound, no masses. No hepatomegaly or splenomegaly. MUSCULOSKELETAL: Normal range of motion at all joints. No bony deformities or tenderness. No CVA tenderness. UPPER EXTREMITIES: +AV fistula to RUE, 2+ pulses, warm, well-perfused. No cyanosis. No clubbing. No peripheral edema. LOWER EXTREMITIES: Left foot wrapped in gauze, no drainage to surgery, no swelling or erythema to LLE, No calf tenderness. NEUROLOGICAL: Cranial nerves II-XII intact. Normal speech. Normal gait. PSYCHIATRIC: Cooperative. Good eye contact. Appropriate mood and affect. SKIN: Warm, dry, normal turgor, no rashes or lesions noted, normal capillary refill. Laboratory Results - last 24 hr 08/17/18 08/17/18 08/18/18 16:20 21:51 06:28 POC Glucometer 289 212 165 Active Medications Generic Name Dose Route Start Last Admin Trade Name Andrésq PRN Reason Stop Dose Admin Acetaminophen 1,000 mg 08/17/18 21:43 08/18/18 11:09 Tylenol - PO 1,000 mg Q6H PRN Administration PAIN LEVEL 6-10 Albuterol Sulfate 1 amp 08/17/18 12:29 Ventolin 0.083% Nebulizer Soln - NEB Q8H PRN Dyspnea Aspirin 81 mg 08/18/18 10:00 08/18/18 09:10 Asa - PO 81 mg DAILY VALERY Administration Atorvastatin Calcium 80 mg 08/17/18 22:00 08/17/18 21:52 Lipitor - PO 80 mg HS VALERY Administration Calcium Acetate 667 mg 08/17/18 17:30 08/18/18 12:22 Phoslo - PO 667 mg TIDCM VALERY Administration Cholecalciferol 1,000 unit 08/18/18 10:00 08/18/18 09:10 Vitamin D3 - PO 1,000 unit DAILY VALERY Administration Clopidogrel Bisulfate 75 mg 08/18/18 10:00 08/18/18 09:10 Plavix - PO 75 mg DAILY VALERY Administration Epoetin Parmjit 5,000 unit 08/18/18 17:07 Epogen - IVPUSH 08/18/18 17:08 ONCE ONE Sodium Chloride 250 mls @ 3,000 mls/hr 08/17/18 17:07 Normal Saline - IV 08/18/18 17:07 PRN PRN Hypotension during Dialysis Insulin Aspart 1 vial 08/17/18 16:30 08/18/18 11:15 Novolog Vial Sliding Scale - SQ 6 units TIDAC VALERY Administration Protocol Levothyroxine Sodium 25 mcg 08/18/18 07:00 08/18/18 06:30 Synthroid - PO 25 mcg DAILY@0700 VALERY Administration Melatonin 3 mg 08/17/18 22:00 08/17/18 21:53 Melatonin PO 3 mg HS VALERY Administration Metoprolol Succinate 150 mg 08/18/18 10:00 08/18/18 09:10 Toprol Xl - PO 150 mg DAILY VALERY Administration Morphine Sulfate 2 mg 08/18/18 10:21 Morphine Sulfate IVPUSH Q6H PRN PAIN LEVEL 7 - 10 Non-Formulary Medication 3 gm 08/17/18 12:29 Cefazolin IV WEEKLY VALERY Non-Formulary Medication 5 gm 08/17/18 14:00 Vit A/Vitamin D3/E/Aloe V/Zinc [Periguard Ointment] TP TID VALERY Pantoprazole Sodium 40 mg 08/18/18 10:00 08/18/18 09:10 Protonix - PO 40 mg DAILY VALERY Administration Senna 1 tab 08/17/18 22:00 08/17/18 21:52 Senna - PO 1 tab HS VALERY Administration Sertraline HCl 50 mg 08/17/18 22:00 08/17/18 21:53 Zoloft - PO 50 mg HS VALERY Administration ASSESSMENT/PLAN: 72 year old male with a PMH significant for CAD s/p CABG, HTN, HLD, hypothyroidism, PVD, ESRD on HS (//Mon), hx of osteomyelitis, DM, pacemaker placement who presents in the ED with dehiscence of left great toe amputation site from a few weeks ago. Patient was admitted for surgical debridement of the bone. Osteomylistis Left great toe -Angiogram from 06/2018 showed two vessel runoff into left foot -US in July shows good perfusion to left foot -Exposed bone after sutures removed -Debridement of bone by chief contract officer Dr. Garcia yesterday. -Dr. Garcia change dressing and pull packing tomorrow. -Apap and IV morphine 2 mg for pain control. -BC Pending ESRD -HD today (,,MON) -Seen by tractor trailer mechanic Dr. Dove -Trixie for anemia CAD s/p CABG -Aspirin 81 mg PO QD -Plavix 75 mg PO QD Hypothyroidism -Levothyroxine 25 mcg PO QD HTN -Metoprolol 150 mg PO QD HLD -Atorvastatin 80 mg PO HS DM -ISS ACHS -BGMs ACHS Depression -Zoloft 50 mg PO HS Constipation -Senna 1 tab PO HS Prophylaxis -DVT: SCDs, ASA and plavix -GI: Protonix 40 mg PO QD FEN -PO intake adequate -Replentish lytes as needed -Renal diet FULL Code Disp: Patient requires further inpatient care but may be set to be d/[facility]ia to [facility] tomorrow packing changed by Dr. Garcia. Visit type - Emergency Visit Emergency Visit: No - New Patient This patient is new to me today: No - Critical Care Critical Care patient: No
[2018-08-18 14:44] LABS: HEMATOCRIT 26.8 % (35.4-49); HEMOGLOBIN 8.9 GM/dL (11.7-16.9); MCH 29.4 pg (25.7-33.7); MCHC 33.3 g/dl (32.0-35.9); MEAN CELL VOLUME 88.4 fl (80-96); MEAN PLT VOLUME 8.6 fl (7.5-11.1); PLATELET COUNT 173 K/MM3 (134-434); RBC 3.03 M/mm3 (4.00-5.60)
[2018-08-18 15:06] LABS: ANION GAP 10 MMOL/L (8-16); BLOOD UREA NITROGEN 26 mg/dL (7-18); CALCIUM 8.2 mg/dL (8.5-10.1); CHLORIDE 108 mmol/L (98-107); CO2 27 mmol/L (21-32); CREATININE 4.4 mg/dL (0.55-1.3); GLUCOSE,RANDOM 134 mg/dL (74-106); POTASSIUM 3.7 mmol/L (3.5-5.1); SODIUM 144 mmol/L (136-145)
[2018-08-18] MEDS ORDERED: SODIUM CHLORIDE 250 ML IV PRN (15:12)
[2018-08-18] MEDS ORDERED: EPOETIN ALFA 3,000 UNIT/1 ML ML IVPUSH ONE (15:15)
--- NOTE | 2018-08-18 18:42 | PN ---
Progress Note, Physician History of Present Illness: Pt seen and examined at bedside. He is awake and alert. He denies shortness of breath. He is tolerating HD. - Current Medication List Current Medications: Active Medications Acetaminophen (Tylenol -) 1,000 mg PO Q6H PRN PRN Reason: PAIN LEVEL 6-10 Last Admin: 08/18/18 11:09 Dose: 1,000 mg Albuterol Sulfate (Ventolin 0.083% Nebulizer Soln -) 1 amp NEB Q8H PRN PRN Reason: Dyspnea Aspirin (Asa -) 81 mg PO DAILY [facility] Last Admin: 08/18/18 09:10 Dose: 81 mg Atorvastatin Calcium (Lipitor -) 80 mg PO HS [facility] Last Admin: 08/17/18 21:52 Dose: 80 mg Calcium Acetate (Phoslo -) 667 mg PO TIDCM [facility] Last Admin: 08/18/18 18:01 Dose: 667 mg Cholecalciferol (Vitamin D3 -) 1,000 unit PO DAILY [facility] Last Admin: 08/18/18 09:10 Dose: 1,000 unit Clopidogrel Bisulfate (Plavix -) 75 mg PO DAILY [facility] Last Admin: 08/18/18 09:10 Dose: 75 mg Insulin Aspart (Novolog Vial Sliding Scale -) 1 vial SQ TIDAC [facility]; Protocol Last Admin: 08/18/18 17:59 Dose: Not Given Levothyroxine Sodium (Synthroid -) 25 mcg PO DAILY@0700 [facility] Last Admin: 08/18/18 06:30 Dose: 25 mcg Melatonin (Melatonin) 3 mg PO [facility] Last Admin: 08/17/18 21:53 Dose: 3 mg Metoprolol Succinate (Toprol Xl -) 150 mg PO DAILY [facility] Last Admin: 08/18/18 09:10 Dose: 150 mg Morphine Sulfate (Morphine Sulfate) 2 mg IVPUSH Q6H PRN PRN Reason: PAIN LEVEL 7 - 10 Non-Formulary Medication (Cefazolin) 3 gm IV WEEKLY [facility] Non-Formulary Medication (Vit A/Vitamin D3/E/Aloe V/Zinc [Periguard Ointment]) 5 gm TP TID [facility] Pantoprazole Sodium (Protonix -) 40 mg PO DAILY [facility] Last Admin: 08/18/18 09:10 Dose: 40 mg Senna (Senna -) 1 tab PO [facility] Last Admin: 08/17/18 21:52 Dose: 1 tab Sertraline HCl (Zoloft -) 50 mg PO HS [facility] Last Admin: 08/17/18 21:53 Dose: 50 mg - Objective Vital Signs: Vital Signs Temperature 97.9 F 08/18/18 14:32 Pulse Rate 82 08/18/18 17:30 Respiratory Rate 18 08/18/18 17:30 Blood Pressure 142/68 08/18/18 17:30 O2 Sat by Pulse Oximetry (%) 99 08/17/18 21:00 Constitutional: Yes: Calm Eyes: Yes: Conjunctiva Clear HENT: Yes: Atraumatic Cardiovascular: Yes: S1, S2 Respiratory: Yes: CTA Bilaterally Gastrointestinal: Yes: Normal Bowel Sounds, Soft Genitourinary: Yes: WNL Edema: No Neurological: Yes: Oriented Psychiatric: Yes: Oriented Labs: CBC, BMP 08/18/18 14:00 08/18/18 14:00 INR, PTT INR 1.03 (0.83-1.09) 08/16/18 14:41 Problem List - Problems (1) Wound infection Code(s): T14.8XXA - OTHER INJURY OF UNSPECIFIED BODY REGION, INITIAL ENCOUNTER; L08.9 - LOCAL INFECTION OF THE SKIN AND SUBCUTANEOUS TISSUE, UNSP (2) Anemia Code(s): D64.9 - ANEMIA, UNSPECIFIED (3) CHF (congestive heart failure), NYHA class IV Code(s): I50.9 - HEART FAILURE, UNSPECIFIED Qualifiers: Congestive heart failure type: systolic Congestive heart failure chronicity : chronic Qualified Code(s): I50.22 - Chronic systolic (congestive) heart failure (4) ESRD (end stage renal disease) on dialysis Code(s): N18.6 - END STAGE RENAL DISEASE; Z99.2 - DEPENDENCE ON RENAL DIALYSIS (5) Gangrene Code(s): I96 - GANGRENE, NOT ELSEWHERE CLASSIFIED (6) HTN (hypertension) Code(s): I10 - ESSENTIAL (PRIMARY) HYPERTENSION Qualifiers: Hypertension type: essential hypertension Qualified Code(s): I10 - Essential (primary) hypertension Assessment/Plan Current Medications Generic Name Dose Route Start Last Admin Trade Name Freq PRN Reason Stop Dose Admin Acetaminophen 1,000 mg 08/17/18 21:43 08/18/18 11:09 Tylenol - PO 1,000 mg Q6H PRN Administration PAIN LEVEL 6-10 Albuterol Sulfate 1 amp 08/17/18 12:29 Ventolin 0.083% Nebulizer Soln - NEB Q8H PRN Dyspnea Aspirin 81 mg 08/18/18 10:00 08/18/18 09:10 Asa - PO 81 mg DAILY [facility] Administration Atorvastatin Calcium 80 mg 08/17/18 22:00 08/17/18 21:52 Lipitor - PO 80 mg HS [facility] Administration Calcium Acetate 667 mg 08/17/18 17:30 08/18/18 18:01 Phoslo - PO 667 mg TIDCM [facility] Administration Cholecalciferol 1,000 unit 08/18/18 10:00 08/18/18 09:10 Vitamin D3 - PO 1,000 unit DAILY [facility] Administration Clopidogrel Bisulfate 75 mg 08/18/18 10:00 08/18/18 09:10 Plavix - PO 75 mg DAILY [facility] Administration Insulin Aspart 1 vial 08/17/18 16:30 08/18/18 17:59 Novolog Vial Sliding Scale - SQ Not Given TIDAC [facility] Protocol Levothyroxine Sodium 25 mcg 08/18/18 07:00 08/18/18 06:30 Synthroid - PO 25 mcg DAILY@0700 [facility] Administration Melatonin 3 mg 08/17/18 22:00 08/17/18 21:53 Melatonin PO 3 mg HS [facility] Administration Metoprolol Succinate 150 mg 08/18/18 10:00 08/18/18 09:10 Toprol Xl - PO 150 mg DAILY [facility] Administration Morphine Sulfate 2 mg 08/18/18 10:21 Morphine Sulfate IVPUSH Q6H PRN PAIN LEVEL 7 - 10 Non-Formulary Medication 3 gm 08/17/18 12:29 Cefazolin IV WEEKLY [facility] Non-Formulary Medication 5 gm 08/17/18 14:00 Vit A/Vitamin D3/E/Aloe V/Zinc [Periguard Ointment] TP TID [facility] Pantoprazole Sodium 40 mg 08/18/18 10:00 08/18/18 09:10 Protonix - PO 40 mg DAILY [facility] Administration Senna 1 tab 08/17/18 22:00 08/17/18 21:52 Senna - PO 1 tab HS [facility] Administration Sertraline HCl 50 mg 08/17/18 22:00 08/17/18 21:53 Zoloft - PO 50 mg HS [facility] Administration Impression 1. ESRD 2. hemoptysis 3. DM 4. CAD 5. PVD 6. DFU 7. anemia 8. hx steal syndrome s/p DRIL procedure 9. CHF 10. pulmonary nodules 11. change in mental status Plan - pt tolerating HD - cont wound care - epogen for anemia - renal diet - volume status is stable - will follow
[2018-08-18] MEDS: SERTRALINE HCL 50 MG TABLET (FP) PO SCH (21:49)
[2018-08-18] MEDS: SENNOSIDES 8.6MG TABLET (FP) PO SCH (21:49)
[2018-08-18] MEDS: ATORVASTATIN CA 80 MG TABLET (FP) PO SCH (21:49)
[2018-08-18] MEDS: MELATONIN 1 MG TABLET PO SCH (21:49)
[2018-08-19] MEDS: LEVOTHYROXINE NA 25 MCG TABLET (FP) PO SCH (06:49)
[2018-08-19] MEDS: INSULIN SLIDING SCALE (NOVOLOG) 1 VIAL SQ SCH ×3 (06:49→17:50)
[2018-08-19] MEDS: PANTOPRAZOLE 40 MG TABLET (FP) PO SCH (10:30)
[2018-08-19] MEDS: CALCIUM ACETATE 667 MG CAPSULE (FP) PO SCH ×3 (10:30→17:47)
[2018-08-19] MEDS: CHOLECALCIFEROL (VITAMIN D3) 1,000 UNIT TABLET (FP) PO SCH (10:30)
[2018-08-19] MEDS: ASPIRIN 81 MG CHEWABLE TABLETS PO SCH (10:30)
[2018-08-19] MEDS: CLOPIDOGREL BISULFATE 75 MG TABLET (FP) PO SCH (10:30)
[2018-08-19] MEDS: ACETAMINOPHEN 500 MG TABLET (FP) PO PRN (10:31)
[2018-08-19] MEDS: MORPHINE SULFATE 2 MG/ML VIAL IVPUSH PRN (10:36)
--- NOTE | 2018-08-19 14:32 | PN ---
Progress Note (short form) - Note Progress Note: POD#2. Mild pain. vss, Tmax 98.9 dressing clean dry and intact, +intact packing, +sutures intact, wbc=7.0 Normal post op Packing pulled. Retention sutures in place. Will follow. CBC with diff in am. Anticipate DC by Monday if continues to improve. Will follow in [facility] on if DC before then.
--- NOTE | 2018-08-19 15:43 | PN ---
Physical Exam: SUBJECTIVE: Patient seen and examined in his room. Patient is PO day 2 for debridment of of bone to left 1st metatarsal with Dr. Garcia. Seen by Dr. Garcia today for bandage removal. Patient reports his pain is well- controlled with APAP/morphine, he did have one dose of morphine this morning. He feels well and is eating well. Denies JARRETT, chills, dizzyness, n/v/d, sob, or chest pain. OBJECTIVE: Vital Signs Period Temp Pulse Resp BP Sys/Lopez Pulse Ox Last 24 Hr 98 F-98.9 F 78-82 18-20 122-154/58-70 99 GENERAL: Pale, thin, awake, alert, and fully oriented, in no acute distress. HEAD: Normal with no signs of trauma. EYES: Pupils equal, round and reactive to light, extraocular movements intact, sclera anicteric, conjunctiva clear. No lid lag. EARS, NOSE, THROAT: Ears normal, nares patent, oropharynx clear without exudates. Moist mucous membranes. NECK: Normal range of motion, supple without lymphadenopathy, JVD, or masses. LUNGS: Breath sounds equal, clear to auscultation bilaterally. No wheezes, and no crackles. No accessory muscle use. HEART: Regular rate and rhythm, normal S1 and S2 without murmur, rub or gallop. ABDOMEN: Soft, nontender, not distended, normoactive bowel sounds, no guarding, no rebound, no masses. No hepatomegaly or splenomegaly. MUSCULOSKELETAL: Normal range of motion at all joints. No bony deformities or tenderness. No CVA tenderness. UPPER EXTREMITIES: +AV fistula to RUE, 2+ pulses, warm, well-perfused. No cyanosis. No clubbing. No peripheral edema. LOWER EXTREMITIES: 8 cm linear well-approximated incision with interrupted sutures intact, no swelling or erythema to LLE, No calf tenderness. NEUROLOGICAL: No facial droop, normal speech. Normal gait. PSYCHIATRIC: Cooperative. Good eye contact. Appropriate mood and affect. SKIN: Warm, dry, normal turgor, no rashes or lesions noted, normal capillary refill. Laboratory Results - last 24 hr 08/18/18 08/18/18 08/19/18 17:58 20:54 06:07 POC Glucometer 120 222 158 08/19/18 11:49 POC Glucometer 143 Active Medications Generic Name Dose Route Start Last Admin Trade Name Freq PRN Reason Stop Dose Admin Acetaminophen 1,000 mg 08/17/18 21:43 08/19/18 10:31 Tylenol - PO 1,000 mg Q6H PRN Administration PAIN LEVEL 6-10 Albuterol Sulfate 1 amp 08/17/18 12:29 Ventolin 0.083% Nebulizer Soln - NEB Q8H PRN Dyspnea Aspirin 81 mg 08/18/18 10:00 08/19/18 10:30 Asa - PO 81 mg DAILY [facility] Administration Atorvastatin Calcium 80 mg 08/17/18 22:00 08/18/18 21:49 Lipitor - PO 80 mg HS [facility] Administration Calcium Acetate 667 mg 08/17/18 17:30 08/19/18 12:32 Phoslo - PO 667 mg TIDCM [facility] Administration Cholecalciferol 1,000 unit 08/18/18 10:00 08/19/18 10:30 Vitamin D3 - PO 1,000 unit DAILY [facility] Administration Clopidogrel Bisulfate 75 mg 08/18/18 10:00 08/19/18 10:30 Plavix - PO 75 mg DAILY [facility] Administration Insulin Aspart 1 vial 08/17/18 16:30 08/19/18 11:50 Novolog Vial Sliding Scale - SQ Not Given [facility] Protocol Levothyroxine Sodium 25 mcg 08/18/18 07:00 08/19/18 06:49 Synthroid - PO 25 mcg DAILY@0700 [facility] Administration Melatonin 3 mg 08/17/18 22:00 08/18/18 21:49 Melatonin PO 3 mg HS [facility] Administration Metoprolol Succinate 150 mg 08/18/18 10:00 08/19/18 10:30 Toprol Xl - PO 150 mg DAILY [facility] Administration Morphine Sulfate 2 mg 08/18/18 10:21 08/19/18 10:36 Morphine Sulfate IVPUSH 2 mg Q6H PRN Administration PAIN LEVEL 7 - 10 Non-Formulary Medication 3 gm 08/17/18 12:29 Cefazolin IV WEEKLY [facility] Non-Formulary Medication 5 gm 08/17/18 14:00 Vit A/Vitamin D3/E/Aloe V/Zinc [Periguard Ointment] TP TID [facility] Pantoprazole Sodium 40 mg 08/18/18 10:00 08/19/18 10:30 Protonix - PO 40 mg DAILY [facility] Administration Senna 1 tab 08/17/18 22:00 08/18/18 21:49 Senna - PO 1 tab HS [facility] Administration Sertraline HCl 50 mg 08/17/18 22:00 08/18/18 21:49 Zoloft - PO 50 mg HS [facility] Administration ASSESSMENT/PLAN: 72 year old male with a PMH significant for CAD s/p CABG, HTN, HLD, hypothyroidism, PVD, ESRD on HS (//Mon), hx of osteomyelitis, DM, pacemaker placement who presents in the ED with dehiscence of left great toe amputation site from a few weeks ago. Patient was admitted for surgical debridement of the bone. Osteomylistis Left great toe -Angiogram from 06/2018 showed two vessel runoff into left foot -US in July shows good perfusion to left foot -Exposed bone after sutures removed -Debridement of bone by commercial loan officer Dr. Garcia 08/17/18 -Dr. Garcia changed dressing -Requesting ID consult for prophylaxis abx, consult ordered -Patient cleared for d/c tomorrow -Hgb 10.3 -> 8.9, CBC pending -Apap and IV morphine 2 mg for pain control. -BC and wound cultures negative ESRD -HD yesterday (,,MON) -Seen by manager massage department Dr. Dove -Trixie for anemia CAD s/p CABG -Aspirin 81 mg PO QD -Plavix 75 mg PO QD Hypothyroidism -Levothyroxine 25 mcg PO QD HTN -Metoprolol 150 mg PO QD HLD -Atorvastatin 80 mg PO HS DM -ISS ACHS -BGMs ACHS Depression -Zoloft 50 mg PO HS Constipation -Senna 1 tab PO HS Prophylaxis -DVT: SCDs, ASA and plavix -GI: Protonix 40 mg PO QD FEN -PO intake adequate -Replentish lytes as needed -Renal diet FULL Code Disp: Patient requires further inpatient care but may be set to be d/kaia to [facility] tomorrow. Visit type - Emergency Visit Emergency Visit: No - New Patient This patient is new to me today: No - Critical Care Critical Care patient: No
--- NOTE | 2018-08-19 16:20 | PN ---
Progress Note, Physician History of Present Illness: Pt seen and examined at bedside. He is awake and alert. He denies fevers or chills. He tolerated HD yesterday. - Current Medication List Current Medications: Active Medications Acetaminophen (Tylenol -) 1,000 mg PO Q6H PRN PRN Reason: PAIN LEVEL 6-10 Last Admin: 08/19/18 10:31 Dose: 1,000 mg Albuterol Sulfate (Ventolin 0.083% Nebulizer Soln -) 1 amp NEB Q8H PRN PRN Reason: Dyspnea Aspirin (Asa -) 81 mg PO DAILY [facility] Last Admin: 08/19/18 10:30 Dose: 81 mg Atorvastatin Calcium (Lipitor -) 80 mg PO HS [facility] Last Admin: 08/18/18 21:49 Dose: 80 mg Calcium Acetate (Phoslo -) 667 mg PO TIDCM [facility] Last Admin: 08/19/18 12:32 Dose: 667 mg Cholecalciferol (Vitamin D3 -) 1,000 unit PO DAILY [facility] Last Admin: 08/19/18 10:30 Dose: 1,000 unit Clopidogrel Bisulfate (Plavix -) 75 mg PO DAILY [facility] Last Admin: 08/19/18 10:30 Dose: 75 mg Insulin Aspart (Novolog Vial Sliding Scale -) 1 vial SQ TIDAC [facility]; Protocol Last Admin: 08/19/18 11:50 Dose: Not Given Levothyroxine Sodium (Synthroid -) 25 mcg PO DAILY@0700 [facility] Last Admin: 08/19/18 06:49 Dose: 25 mcg Melatonin (Melatonin) 3 mg PO HS [facility] Last Admin: 08/18/18 21:49 Dose: 3 mg Metoprolol Succinate (Toprol Xl -) 150 mg PO DAILY [facility] Last Admin: 08/19/18 10:30 Dose: 150 mg Morphine Sulfate (Morphine Sulfate) 2 mg IVPUSH Q6H PRN PRN Reason: PAIN LEVEL 7 - 10 Last Admin: 08/19/18 10:36 Dose: 2 mg Non-Formulary Medication (Cefazolin) 3 gm IV WEEKLY [facility] Non-Formulary Medication (Vit A/Vitamin D3/E/Aloe V/Zinc [Periguard Ointment]) 5 gm TP TID [facility] Pantoprazole Sodium (Protonix -) 40 mg PO DAILY [facility] Last Admin: 08/19/18 10:30 Dose: 40 mg Senna (Senna -) 1 tab PO [facility] Last Admin: 08/18/18 21:49 Dose: 1 tab Sertraline HCl (Zoloft -) 50 mg PO [facility] Last Admin: 08/18/18 21:49 Dose: 50 mg - Objective Vital Signs: Vital Signs Temperature 98.6 F 08/19/18 14:22 Pulse Rate 80 08/19/18 14:22 Respiratory Rate 18 08/19/18 14:22 Blood Pressure 131/59 L 08/19/18 14:22 O2 Sat by Pulse Oximetry (%) 99 08/18/18 20:32 Constitutional: Yes: Calm Eyes: Yes: Conjunctiva Clear HENT: Yes: Atraumatic Neck: Yes: Supple Cardiovascular: Yes: S1, S2 Respiratory: Yes: CTA Bilaterally Gastrointestinal: Yes: Soft Genitourinary: Yes: WNL Edema: No Wound/Incision: Yes: Dressing Dry and Intact Neurological: Yes: Oriented Psychiatric: Yes: Oriented Labs: CBC, BMP 08/18/18 14:00 08/18/18 14:00 INR, PTT INR 1.03 (0.83-1.09) 08/16/18 14:41 Problem List - Problems (1) Wound infection Code(s): T14.8XXA - OTHER INJURY OF UNSPECIFIED BODY REGION, INITIAL ENCOUNTER; L08.9 - LOCAL INFECTION OF THE SKIN AND SUBCUTANEOUS TISSUE, UNSP (2) Anemia Code(s): D64.9 - ANEMIA, UNSPECIFIED (3) CHF (congestive heart failure), NYHA class IV Code(s): I50.9 - HEART FAILURE, UNSPECIFIED Qualifiers: Congestive heart failure type: systolic Congestive heart failure chronicity : chronic Qualified Code(s): I50.22 - Chronic systolic (congestive) heart failure (4) ESRD (end stage renal disease) on dialysis Code(s): N18.6 - END STAGE RENAL DISEASE; Z99.2 - DEPENDENCE ON RENAL DIALYSIS (5) Gangrene Code(s): I96 - GANGRENE, NOT ELSEWHERE CLASSIFIED (6) HTN (hypertension) Code(s): I10 - ESSENTIAL (PRIMARY) HYPERTENSION Qualifiers: Hypertension type: essential hypertension Qualified Code(s): I10 - Essential (primary) hypertension Assessment/Plan Current Medications Generic Name Dose Route Start Last Admin Trade Name Freq PRN Reason Stop Dose Admin Acetaminophen 1,000 mg 08/17/18 21:43 08/19/18 10:31 Tylenol - PO 1,000 mg Q6H PRN Administration PAIN LEVEL 6-10 Albuterol Sulfate 1 amp 08/17/18 12:29 Ventolin 0.083% Nebulizer Soln - NEB Q8H PRN Dyspnea Aspirin 81 mg 08/18/18 10:00 08/19/18 10:30 Asa - PO 81 mg DAILY [facility] Administration Atorvastatin Calcium 80 mg 08/17/18 22:00 08/18/18 21:49 Lipitor - PO 80 mg HS [facility] Administration Calcium Acetate 667 mg 08/17/18 17:30 08/19/18 12:32 Phoslo - PO 667 mg TIDCM [facility] Administration Cholecalciferol 1,000 unit 08/18/18 10:00 08/19/18 10:30 Vitamin D3 - PO 1,000 unit DAILY [facility] Administration Clopidogrel Bisulfate 75 mg 08/18/18 10:00 08/19/18 10:30 Plavix - PO 75 mg DAILY [facility] Administration Insulin Aspart 1 vial 08/17/18 16:30 08/19/18 11:50 Novolog Vial Sliding Scale - SQ Not Given TIDAC [facility] Protocol Levothyroxine Sodium 25 mcg 08/18/18 07:00 08/19/18 06:49 Synthroid - PO 25 mcg DAILY@0700 [facility] Administration Melatonin 3 mg 08/17/18 22:00 08/18/18 21:49 Melatonin PO 3 mg HS [facility] Administration Metoprolol Succinate 150 mg 08/18/18 10:00 08/19/18 10:30 Toprol Xl - PO 150 mg DAILY [facility] Administration Morphine Sulfate 2 mg 08/18/18 10:21 08/19/18 10:36 Morphine Sulfate IVPUSH 2 mg Q6H PRN Administration PAIN LEVEL 7 - 10 Non-Formulary Medication 3 gm 08/17/18 12:29 Cefazolin IV WEEKLY [facility] Non-Formulary Medication 5 gm 08/17/18 14:00 Vit A/Vitamin D3/E/Aloe V/Zinc [Periguard Ointment] TP TID [facility] Pantoprazole Sodium 40 mg 08/18/18 10:00 08/19/18 10:30 Protonix - PO 40 mg DAILY [facility] Administration Senna 1 tab 08/17/18 22:00 08/18/18 21:49 Senna - PO 1 tab HS [facility] Administration Sertraline HCl 50 mg 08/17/18 22:00 08/18/18 21:49 Zoloft - PO 50 mg HS [facility] Administration Microbiology 08/17/18 11:00 Skin - Deep Wound Gram Stain - Final 08/17/18 11:00 Skin - Deep Wound Anaerobic Culture - Final NO GROWTH OF AEROBIC ORGANISMS AFTER 48 HOURS INCUBATION NO ANAEROBES WERE ISOLATED 08/17/18 11:00 Foot - Left Gram Stain - Final 08/17/18 11:00 Foot - Left Wound Culture - Final NO GROWTH OF AEROBIC ORGANISMS AFTER 48 HOURS INCUBATION 08/16/18 22:15 Urine - Urine Clean Catch Urine Culture - Final NO GROWTH OBTAINED 08/16/18 14:41 Blood - Peripheral Venous Blood Culture - Preliminary NO GROWTH OBTAINED AFTER 72 HOURS, INCUBATION TO CONTINUE FOR 2 DAYS. 08/16/18 14:41 Blood - Peripheral Venous Blood Culture - Preliminary NO GROWTH OBTAINED AFTER 72 HOURS, INCUBATION TO CONTINUE FOR 2 DAYS. Impression 1. ESRD 2. hx hemoptysis 3. DM 4. CAD 5. PVD 6. DFU 7. anemia 8. hx steal syndrome s/p DRIL procedure 9. CHF 10. pulmonary nodules Plan - pt tolerated HD yesterday - next HD on Monday - cont wound care - epogen for anemia - cultures negative so far - renal diet - volume status is stable - will follow
--- NOTE | 2018-08-19 17:57 | OP ---
DATE OF ADMISSION: 08/17/2018 SURGEON: Deandra Briceño DPM LATH TIER: Clinton Grewal DPM; Agnes Steele DPM, PGY-3 PREOPERATIVE DIAGNOSIS: Left foot with 1st metatarsal osteomyelitis with diabetic ulcer. POSTOPERATIVE DIAGNOSIS: Left foot with 1st metatarsal osteomyelitis with diabetic ulcer. PROCEDURE: Left foot 1st metatarsal head resection and wound debridement. ANESTHESIA: Local with MAC. PATHOLOGY: Bone and soft tissue culture and pathology and clear margin pathology. ESTIMATED BLOOD LOSS: 5 mL. HEMOSTASIS: Electrocautery. MATERIALS USED: A 3-0 nylon suture and postoperative dressing such as Betadine-soaked Adaptic, iodoform packing, sterile gauze, Kerlix, and Uriel bandage. INJECTABLES: 15 mL of a 1:1 mixture of 1% lidocaine plain and 0.5% Marcaine plain and 10 mL of 0.5% Marcaine used postoperatively. CONDITION OF PATIENT: Stable. COMPLICATIONS: None. DESCRIPTION: The patient was brought to the operating room and placed on the operating table in a supine position. Following IV sedation, local anesthesia was obtained using a 1:1 mixture of 1% lidocaine plain and 0.5% Marcaine plain. Preoperatively, 10 mL was injected throughout the surgical site, left foot. The left foot was then scrubbed, prepped and draped in the usual aseptic manner. Attention was first directed to the wound at the distal aspect of the 1st metatarsal head, which there was previous hallux amputation, with exposed metatarsal head at the wound bed. Using number 15 blade, a linear incision was made medial and parallel to the tendon of extensor hallucis longus and the head all the way to the midshaft of the 1st metatarsal was freed from its capsular and ligamentous attachment. Using a sagittal saw, the head of the 1st metatarsal was resected at its two-thirds distally and the bone was sent to Pathology. At this time, the wound was debrided using number 15 blade using sharp and blunt dissection. Care was taken to identify all neural and vascular structures. All the necrotic and fibrotic tissue was debrided and removed from the operative field and sent to Pathology. The small bone from the proximal aspect of the resected metatarsal was sent for bone culture as well as pathology as a clear margin. The remaining bone and soft tissue was then assessed at this time and appeared to be viable with healthy soft tissue as a granular tissue. The wound was then irrigated with copious amount of normal saline with bacitracin in it, and the dorsal skin edge was reapproximated using 3-0 nylon suture and retention suture was done distally, and the distal area of the wound was packed using 1/4-inch iodoform packing. At this time, postoperative injection was applied using 10 mL of 0.5% Marcaine. Postoperative dressing such as Betadine-soaked Adaptic and ABD pad, gauze, Kerlix and Uriel bandage was applied to the left foot. Patient tolerated the procedure and anesthesia well and was transferred to the post-anesthesia care unit with vital signs stable and vascular status intact to the left lower extremity. Following postoperative management, the patient will be transferred back to the floor and will be followed by Podiatry and Medicine team. Agnes Steele DPM, PGY-3 dictating for PONCHO Taveras DPM [id number]
[2018-08-19] MEDS ORDERED: INSULIN (NOVOLOG) ASPART 100 UNITS/ML 10ML VIAL ONE (18:32)
[2018-08-19] MEDS: SENNOSIDES 8.6MG TABLET (FP) PO SCH (21:35)
[2018-08-19] MEDS: MELATONIN 1 MG TABLET PO SCH (21:35)
[2018-08-19] MEDS: SERTRALINE HCL 50 MG TABLET (FP) PO SCH (21:35)
[2018-08-19] MEDS: ATORVASTATIN CA 80 MG TABLET (FP) PO SCH (21:35)
[2018-08-20] MEDS: MORPHINE SULFATE 2 MG/ML VIAL IVPUSH PRN ×2 (05:52→12:25)
[2018-08-20] MEDS: LEVOTHYROXINE NA 25 MCG TABLET (FP) PO SCH (06:51)
[2018-08-20] MEDS: INSULIN SLIDING SCALE (NOVOLOG) 1 VIAL SQ SCH ×2 (06:52→12:25)
[2018-08-20 07:47] LABS: ANION GAP 10 MMOL/L (8-16); BLOOD UREA NITROGEN 38 mg/dL (7-18); CALCIUM 8.7 mg/dL (8.5-10.1); CHLORIDE 100 mmol/L (98-107); CO2 27 mmol/L (21-32); GLUCOSE,RANDOM 154 mg/dL (74-106); POTASSIUM 4.5 mmol/L (3.5-5.1); SODIUM 137 mmol/L (136-145)
[2018-08-20 07:57] LABS: HEMATOCRIT 29.4 % (35.4-49); HEMOGLOBIN 9.5 GM/dL (11.7-16.9); MCH 28.9 pg (25.7-33.7); MCHC 32.4 g/dl (32.0-35.9); MEAN CELL VOLUME 89.4 fl (80-96); PLATELET COUNT 164 K/MM3 (134-434); RBC 3.28 M/mm3 (4.00-5.60); RDW 19.5 % (11.9-15.9); WHITE BLOOD COUNT 8.1 K/mm3 (4.0-10.0)
[2018-08-20] MEDS: CALCIUM ACETATE 667 MG CAPSULE (FP) PO SCH ×2 (08:30→12:16)
[2018-08-20] MEDS: ASPIRIN 81 MG CHEWABLE TABLETS PO SCH (09:30)
[2018-08-20] MEDS: PANTOPRAZOLE 40 MG TABLET (FP) PO SCH (09:31)
[2018-08-20] MEDS: CHOLECALCIFEROL (VITAMIN D3) 1,000 UNIT TABLET (FP) PO SCH (09:31)
[2018-08-20] MEDS: CLOPIDOGREL BISULFATE 75 MG TABLET (FP) PO SCH (09:31)
[2018-08-20 09:39] VITALS: BP 130/54; PULSE 80; TEMP 98.1
[2018-08-20] MEDS ORDERED: MAGNESIUM CITRATE 300 ML BOTTLE PO ONE (10:51)
--- NOTE | 2018-08-20 11:31 | CON.ID ---
Consult Consult Specialty:: infectious disease Referred by:: hospitalist Reason for Consultation:: f/u amputation of toe - History of Present Illness Chief Complaint: dehiscence and bone protrusion of bone from amputation site History of Present Illness: 72 yo man phm esrd- s/p antion LLE 06/15, s/p left firtst toe amputation 06/21- treated with cefazolin with HD for 6 weeks he didnot f/u with us or wound care. 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 Cardio/Vascular: Yes: AFIB, CAD, CHF, HTN, Hyperlipdemia, DE, Mitral Insufficiency Pulmonary: Yes: COPD Gastrointestinal: Yes: GI Bleed Renal/: Yes: Renal Failure, Hemodialysis Psych: Yes: Anxiety Musculoskeletal: Yes: Other Endocrine: Yes: Diabetes Mellitus Dermatology: Yes: Other (gangarene left big toe) - Past Surgical History Past Surgical History: Yes: AICD, AV Fistula/Graft, CABG - Alcohol/Substance Use Hx Alcohol Use: Yes (socially, not anymore) - Smoking History Smoking history: Never smoked Have you smoked in the past 12 months: No Aproximately how many cigarettes per day: 5 If you are a former smoker, when did you quit?: 2004 - Social History Usual Living Arrangement: [facility] History of Recent Travel: No Home Medications - Allergies Allergies/Adverse Reactions: Allergies Allergy/AdvReac Type Severity Reaction Status Date / Time oxycodone [From Percocet] Allergy Verified 08/16/18 13:05 gabapentin [From Neurontin] AdvReac Verified 08/16/18 13:05 - Home Medications Home Medications: Ambulatory Orders Acetaminophen 650 mg PO Q4H PRN 02/28/18 Aspirin [ASA -] 81 mg PO DAILY 02/28/18 Atorvastatin Ca [Lipitor] 80 mg PO HS 02/28/18 Calcium Acetate [Phoslo -] 667 mg PO TIDCM 02/28/18 Clopidogrel Bisulfate [Plavix -] 75 mg PO DAILY 02/28/18 Levothyroxine [Synthroid -] 25 mcg PO DAILY 02/28/18 Metoprolol Succinate [Toprol Xl] 150 mg PO DAILY 02/28/18 Pantoprazole Sodium 40 mg PO DAILY 02/28/18 Sennosides [Senna -] 1 tab PO HS 02/28/18 Sertraline HCl [Zoloft -] 50 mg PO HS 02/28/18 Albuterol 0.083% Nebulizer Yessi [Ventolin 0.083% Nebulizer Soln -] 1 amp IN Q8H PRN 03/28/18 Melatonin 3 mg PO HS 04/21/18 Cefazolin [Ancef] 3 gm IV WEEKLY 07/13/18 Cholecalciferol (Vitamin D3) [Vitamin D3] 1,000 unit PO DAILY 07/13/18 Insulin Sliding Scale [Novolog Vial Sliding Scale -] 0 units SQ BID 07/13/18 Vitamin B Comp W-C [Nephro-Misty -] 1 tablet PO DAILY 07/13/18 Vit A/Vitamin D3/E/Aloe V/Zinc [Periguard Ointment] 5 gm TP TID 07/14/18 Amox-Tr/K Cl [Augmentin 500-125mg Tablet -] 1 tab PO DAILY #7 tablet 08/20/18 Review of Systems - Review of Systems Constitutional: reports: No Symptoms. denies: Chills, Fever Eyes: reports: No Symptoms HENT: reports: No Symptoms Neck: reports: No Symptoms Cardiovascular: reports: No Symptoms Respiratory: reports: No Symptoms Gastrointestinal: reports: No Symptoms Physical Exam Vital Signs: Vital Signs Temperature 98.1 F 08/20/18 09:39 Pulse Rate 80 08/20/18 09:39 Respiratory Rate 16 08/20/18 09:39 Blood Pressure 130/54 L 08/20/18 09:39 O2 Sat by Pulse Oximetry (%) 96 08/20/18 09:00 Constitutional: Yes: Well Nourished, No Distress Eyes: Yes: Conjunctiva Clear HENT: Yes: Atraumatic, Normocephalic. No: Pharyngeal Erythema, Thrush, Tonsillar Exudate Neck: Yes: Supple, Trachea Midline Cardiovascular: Yes: Regular Rate and Rhythm Respiratory: Yes: Regular, CTA Bilaterally Gastrointestinal: Yes: Normal Bowel Sounds, Soft. No: Tenderness, Epigastrium ...Rectal Exam: Yes: Deferred Extremities: Yes: Other (sutures intact, no erythema, no drainage) Edema: No Psychiatric: Yes: Alert Labs: CBC, BMP 08/20/18 06:15 08/20/18 06:15 Microbiology 08/16/18 14:41 Blood - Peripheral Venous Blood Culture - Final NO GROWTH AFTER 5 DAYS INCUBATION 08/16/18 14:41 Blood - Peripheral Venous Blood Culture - Final NO GROWTH AFTER 5 DAYS INCUBATION 08/17/18 11:00 Foot - Left Gram Stain - Final 08/17/18 11:00 Foot - Left Wound Culture - Final NO GROWTH OF AEROBIC ORGANISMS AFTER 48 HOURS INCUBATION 08/17/18 11:00 Skin - Deep Wound Gram Stain - Final 08/17/18 11:00 Skin - Deep Wound Tissue Culture - Final NO GROWTH OF AEROBIC ORGANISMS AFTER 48 HOURS INCUBATION 08/17/18 11:00 Skin - Deep Wound Anaerobic Culture - Final NO ANAEROBES WERE ISOLATED 08/16/18 22:15 Urine - Urine Clean Catch Urine Culture - Final NO GROWTH OBTAINED Imaging - Results X-ray: Report Reviewed Problem List - Problems (1) Diabetic foot infection Code(s): E11.628 - TYPE 2 DIABETES MELLITUS WITH OTHER SKIN COMPLICATIONS; L08.9 - LOCAL INFECTION OF THE SKIN AND SUBCUTANEOUS TISSUE, UNSP (2) Osteomyelitis Code(s): M86.9 - OSTEOMYELITIS, UNSPECIFIED (3) ESRD (end stage renal disease) on dialysis Code(s): N18.6 - END STAGE RENAL DISEASE; Z99.2 - DEPENDENCE ON RENAL DIALYSIS Assessment/Plan d/w Podiatry- Dr Briceño wide margins obtained at time of surgery suspect surgical cure recommend Augmentin 500 mg po daily for one week he will f/u in wound care with Dr Briceño later this week
[2018-08-20] MEDS ORDERED: AMOX TR/POT CLAV 500MG/125MG TABLETS (FP) PO SCH (11:45)
--- NOTE | 2018-08-20 12:05 | PN ---
Progress Note, Physician History of Present Illness: Pt seen and examined at bedside. He is awake and alert. He denies shortness of breath. - Current Medication List Current Medications: Active Medications Acetaminophen (Tylenol -) 1,000 mg PO Q6H PRN PRN Reason: PAIN LEVEL 6-10 Last Admin: 08/19/18 10:31 Dose: 1,000 mg Albuterol Sulfate (Ventolin 0.083% Nebulizer Soln -) 1 amp NEB Q8H PRN PRN Reason: Dyspnea Last Admin: 08/20/18 07:37 Dose: 1 amp Amoxicillin/Clavulanate Potassium (Augmentin - 500mg Tablet) 1 tab PO DAILY [facility] Aspirin (Asa -) 81 mg PO DAILY [facility] Last Admin: 08/20/18 09:30 Dose: 81 mg Atorvastatin Calcium (Lipitor -) 80 mg PO HS [facility] Last Admin: 08/19/18 21:35 Dose: 80 mg Calcium Acetate (Phoslo -) 667 mg PO TIDCM [facility] Last Admin: 08/20/18 08:30 Dose: 667 mg Cholecalciferol (Vitamin D3 -) 1,000 unit PO DAILY [facility] Last Admin: 08/20/18 09:31 Dose: 1,000 unit Clopidogrel Bisulfate (Plavix -) 75 mg PO DAILY [facility] Last Admin: 08/20/18 09:31 Dose: 75 mg Insulin Aspart (Novolog Vial Sliding Scale -) 1 vial SQ TIDAC [facility]; Protocol Last Admin: 08/20/18 06:52 Dose: 2 units Levothyroxine Sodium (Synthroid -) 25 mcg PO DAILY@0700 [facility] Last Admin: 08/20/18 06:51 Dose: 25 mcg Melatonin (Melatonin) 3 mg PO HS [facility] Last Admin: 08/19/18 21:35 Dose: 3 mg Metoprolol Succinate (Toprol Xl -) 150 mg PO DAILY [facility] Last Admin: 08/20/18 09:30 Dose: 150 mg Morphine Sulfate (Morphine Sulfate) 2 mg IVPUSH Q6H PRN PRN Reason: PAIN LEVEL 7 - 10 Last Admin: 08/20/18 05:52 Dose: 2 mg Pantoprazole Sodium (Protonix -) 40 mg PO DAILY [facility] Last Admin: 08/20/18 09:31 Dose: 40 mg Senna (Senna -) 1 tab PO [facility] Last Admin: 08/19/18 21:35 Dose: 1 tab Sertraline HCl (Zoloft -) 50 mg PO HS [facility] Last Admin: 08/19/18 21:35 Dose: 50 mg - Objective Vital Signs: Vital Signs Temperature 98.1 F 08/20/18 09:39 Pulse Rate 80 08/20/18 09:39 Respiratory Rate 16 08/20/18 09:39 Blood Pressure 130/54 L 08/20/18 09:39 O2 Sat by Pulse Oximetry (%) 96 08/20/18 09:00 Constitutional: Yes: Calm Eyes: Yes: Conjunctiva Clear HENT: Yes: Atraumatic Neck: Yes: Supple Cardiovascular: Yes: S1, S2 Respiratory: Yes: CTA Bilaterally Gastrointestinal: Yes: Soft Genitourinary: Yes: WNL Edema: No Wound/Incision: Yes: Dressing Dry and Intact Labs: CBC, BMP 08/20/18 06:15 08/20/18 06:15 INR, PTT INR 1.03 (0.83-1.09) 08/16/18 14:41 Problem List - Problems (1) Wound infection Code(s): T14.8XXA - OTHER INJURY OF UNSPECIFIED BODY REGION, INITIAL ENCOUNTER; L08.9 - LOCAL INFECTION OF THE SKIN AND SUBCUTANEOUS TISSUE, UNSP (2) Anemia Code(s): D64.9 - ANEMIA, UNSPECIFIED (3) CHF (congestive heart failure), NYHA class IV Code(s): I50.9 - HEART FAILURE, UNSPECIFIED Qualifiers: Congestive heart failure type: systolic Congestive heart failure chronicity : chronic Qualified Code(s): I50.22 - Chronic systolic (congestive) heart failure (4) ESRD (end stage renal disease) on dialysis Code(s): N18.6 - END STAGE RENAL DISEASE; Z99.2 - DEPENDENCE ON RENAL DIALYSIS (5) Gangrene Code(s): I96 - GANGRENE, NOT ELSEWHERE CLASSIFIED (6) HTN (hypertension) Code(s): I10 - ESSENTIAL (PRIMARY) HYPERTENSION Qualifiers: Hypertension type: essential hypertension Qualified Code(s): I10 - Essential (primary) hypertension Assessment/Plan Current Medications Generic Name Dose Route Start Last Admin Trade Name Freq PRN Reason Stop Dose Admin Acetaminophen 1,000 mg 08/17/18 21:43 08/19/18 10:31 Tylenol - PO 1,000 mg Q6H PRN Administration PAIN LEVEL 6-10 Albuterol Sulfate 1 amp 08/17/18 12:29 08/20/18 07:37 Ventolin 0.083% Nebulizer Soln - NEB 1 amp Q8H PRN Administration Dyspnea Amoxicillin/Clavulanate Potassium 1 tab 08/20/18 11:45 Augmentin - 500mg Tablet PO DAILY [facility] Aspirin 81 mg 08/18/18 10:00 08/20/18 09:30 Asa - PO 81 mg DAILY [facility] Administration Atorvastatin Calcium 80 mg 08/17/18 22:00 08/19/18 21:35 Lipitor - PO 80 mg HS [facility] Administration Calcium Acetate 667 mg 08/17/18 17:30 08/20/18 08:30 Phoslo - PO 667 mg TIDCM [facility] Administration Cholecalciferol 1,000 unit 08/18/18 10:00 08/20/18 09:31 Vitamin D3 - PO 1,000 unit DAILY [facility] Administration Clopidogrel Bisulfate 75 mg 08/18/18 10:00 08/20/18 09:31 Plavix - PO 75 mg DAILY [facility] Administration Insulin Aspart 1 vial 08/17/18 16:30 08/20/18 06:52 Novolog Vial Sliding Scale - SQ 2 units TIDAC [facility] Administration Protocol Levothyroxine Sodium 25 mcg 08/18/18 07:00 08/20/18 06:51 Synthroid - PO 25 mcg DAILY@0700 [facility] Administration Melatonin 3 mg 08/17/18 22:00 08/19/18 21:35 Melatonin PO 3 mg HS [facility] Administration Metoprolol Succinate 150 mg 08/18/18 10:00 08/20/18 09:30 Toprol Xl - PO 150 mg DAILY [facility] Administration Morphine Sulfate 2 mg 08/18/18 10:21 08/20/18 05:52 Morphine Sulfate IVPUSH 2 mg Q6H PRN Administration PAIN LEVEL 7 - 10 Pantoprazole Sodium 40 mg 08/18/18 10:00 08/20/18 09:31 Protonix - PO 40 mg DAILY [facility] Administration Senna 1 tab 08/17/18 22:00 08/19/18 21:35 Senna - PO 1 tab HS [facility] Administration Sertraline HCl 50 mg 08/17/18 22:00 08/19/18 21:35 Zoloft - PO 50 mg HS [facility] Administration Impression 1. ESRD 2. hx hemoptysis 3. DM 4. CAD 5. PVD 6. DFU 7. anemia 8. hx steal syndrome s/p DRIL procedure 9. CHF 10. pulmonary nodules Plan - HD in am - pt has HD set up as outpt - discussed with medical team - cont wound care - epogen for anemia - renal diet - volume status is stable - will follow
--- NOTE | 2018-08-20 13:05 | DS ---
Physical Exam: SUBJECTIVE: Patient seen and examined in his room. Patient is PO day 2 for debridment of of bone to left 1st metatarsal with Dr. Garcia. Seen by Dr. Garcia today for bandage removal. Patient reports his pain is well- controlled with APAP/morphine, he did have one dose of morphine this morning. He feels well and is eating well. Denies JARRETT, chills, dizzyness, n/v/d, sob, or chest pain. OBJECTIVE: Vital Signs Period Temp Pulse Resp BP Sys/Lopez Pulse Ox Last 24 Hr 98.1 F-98.6 F 80-81 16-20 130-151/54-69 96-98 PHYSICAL EXAM GENERAL: Pale, thin, awake, alert, and fully oriented, in no acute distress. HEAD: Normal with no signs of trauma. EYES: Pupils equal, round and reactive to light, extraocular movements intact, sclera anicteric, conjunctiva clear. No lid lag. EARS, NOSE, THROAT: Ears normal, nares patent, oropharynx clear without exudates. Moist mucous membranes. NECK: Normal range of motion, supple without lymphadenopathy, JVD, or masses. LUNGS: Breath sounds equal, clear to auscultation bilaterally. No wheezes, and no crackles. No accessory muscle use. HEART: Regular rate and rhythm, normal S1 and S2 without murmur, rub or gallop. ABDOMEN: Soft, nontender, not distended, normoactive bowel sounds, no guarding, no rebound, no masses. No hepatomegaly or splenomegaly. MUSCULOSKELETAL: Normal range of motion at all joints. No bony deformities or tenderness. No CVA tenderness. UPPER EXTREMITIES: +AV fistula to RUE, 2+ pulses, warm, well-perfused. No cyanosis. No clubbing. No peripheral edema. LOWER EXTREMITIES: 8 cm linear well-approximated incision with interrupted sutures intact, no swelling or erythema to LLE, No calf tenderness. NEUROLOGICAL: No facial droop, normal speech. Normal gait. PSYCHIATRIC: Cooperative. Good eye contact. Appropriate mood and affect. SKIN: Warm, dry, normal turgor, no rashes or lesions noted, normal capillary refill. LABS Laboratory Results - last 24 hr 08/18/18 08/18/18 08/19/18 11:12 11:23 17:49 WBC RBC Hgb Hct MCV MCH MCHC RDW Plt Count MPV Sodium Potassium Chloride Carbon Dioxide Anion Gap BUN Creatinine Creat Clearance w eGFR POC Glucometer 284 297 256 Random Glucose Calcium 08/20/18 08/20/18 08/20/18 05:52 06:15 06:15 WBC 8.1 RBC 3.28 L Hgb 9.5 L Hct 29.4 L MCV 89.4 MCH 28.9 MCHC 32.4 RDW 19.5 H Plt Count 164 MPV 9.0 Sodium 137 Potassium 4.5 Chloride 100 Carbon Dioxide 27 Anion Gap 10 BUN 38 H Creatinine 6.0 H Creat Clearance w eGFR 9.29 POC Glucometer 186 Random Glucose 154 H Calcium 8.7 08/20/18 12:19 WBC RBC Hgb Hct MCV MCH MCHC RDW Plt Count MPV Sodium Potassium Chloride Carbon Dioxide Anion Gap BUN Creatinine Creat Clearance w eGFR POC Glucometer 173 Random Glucose Calcium HOSPITAL COURSE: Date of Admission:08/16/18 Date of Discharge: 08/20/18 72 year old male with a PMH significant for CAD s/p CABG, HTN, HLD, hypothyroidism, PVD, ESRD on HS (//Mon), hx of osteomyelitis, DM, pacemaker placement admitted for surgican debridement of LGT amputation site with route sales representative Dr. Garcia on 08/17/18. Patient had hemodialysis. Osteomylistis Left great toe -Angiogram from 06/2018 showed two vessel runoff into left foot -US in July shows good perfusion to left foot -Exposed bone after sutures removed -Debridement of bone by route sales representative Dr. Garcia 08/17/18 -Dr. Garcia changed dressing -Requesting ID consult for prophylaxis abx, consult ordered -Patient cleared for d/c tomorrow -Hgb 10.3 -> 8.9, CBC pending -Apap and IV morphine 2 mg for pain control. -BC and wound cultures negative ESRD -HD yesterday (,,MON) -Seen by expeller worker Dr. Dove -Trixie for anemia CAD s/p CABG -Aspirin 81 mg PO QD -Plavix 75 mg PO QD Hypothyroidism -Levothyroxine 25 mcg PO QD HTN -Metoprolol 150 mg PO QD HLD -Atorvastatin 80 mg PO HS DM -ISS ACHS -BGMs ACHS Depression -Zoloft 50 mg PO HS Constipation -Senna 1 tab PO HS Prophylaxis -DVT: SCDs, ASA and plavix -GI: Protonix 40 mg PO QD FEN -PO intake adequate -Replentish lytes as needed -Renal diet FULL Code Disp: Patient requires further inpatient care but may be set to be d/[facility] to [facility] tomorrow. Minutes to complete discharge: 30 Discharge Summary Reason For Visit: LOCAL INFECTION OF WOUND Current Active Problems Wound infection (Acute) - Instructions Diet, Activity, Other Instructions: Mr. Pretty: You were admitted to [facility] on 08/16/18 - 08/20/18 for surgical debridment of of bone on the amputation site to your left great toe with Dr. Garcia. You completed your dialysis during your hospital stay. You were seen by infectious disease specialist Dr. Khoury. It is important you follow up with Dr. Garcia and make an appointment at his office for this , August 23, 2018. You have been started on antibiotic Augmentin 500 mg PO qday x 7 days Please continue your hemodialysis on Monday, , Monday. Continue all your other home medications medications as prescribed. Please return to the ER if you have any signs or symptoms of chest pain, shortness of breath, uncontrollable fever, chills, nausea, vomiting, numbness, tingling, or weakness in any part of your body, changes in vision, or slurred speech. Please return to the ER if symptoms persist, worsen, or new symptoms arise. [facility] [phone] Referrals: Nery Umanzor MD [Primary Care Provider] - Deandra Briceño DPM [Staff Physician] - (SCHEDULE A FOLLOW UP APPOINTMENT THIS MONDAY AT DR BRICEÑO'S OFFICE) Disposition: [facility] - Home Medications Comprehensive Discharge Medication List: Ambulatory Orders Acetaminophen 650 mg PO Q4H PRN 02/28/18 Aspirin [ASA -] 81 mg PO DAILY 02/28/18 Atorvastatin Ca [Lipitor] 80 mg PO HS 02/28/18 Calcium Acetate [Phoslo -] 667 mg PO TIDCM 02/28/18 Clopidogrel Bisulfate [Plavix -] 75 mg PO DAILY 02/28/18 Levothyroxine [Synthroid -] 25 mcg PO DAILY 02/28/18 Metoprolol Succinate [Toprol Xl] 150 mg PO DAILY 02/28/18 Pantoprazole Sodium 40 mg PO DAILY 02/28/18 Sennosides [Senna -] 1 tab PO HS 02/28/18 Sertraline HCl [Zoloft -] 50 mg PO HS 02/28/18 Albuterol 0.083% Nebulizer Yessi [Ventolin 0.083% Nebulizer Soln -] 1 amp IN Q8H PRN 03/28/18 Melatonin 3 mg PO HS 04/21/18 Cefazolin [Ancef] 3 gm IV WEEKLY 07/13/18 Cholecalciferol (Vitamin D3) [Vitamin D3] 1,000 unit PO DAILY 07/13/18 Insulin Sliding Scale [Novolog Vial Sliding Scale -] 0 units SQ BID 07/13/18 Vitamin B Comp W-C [Nephro-Misty -] 1 tablet PO DAILY 07/13/18 Vit A/Vitamin D3/E/Aloe V/Zinc [Periguard Ointment] 5 gm TP TID 07/14/18 Amox-Tr/K Cl [Augmentin 500-125mg Tablet -] 1 tab PO DAILY #7 tablet 08/20/18 This patient is new to me today: No Emergency Visit: No Critical Care patient: No - Discharge Referral Referred to [facility] No
--- NOTE | 2018-08-21 16:09 | PATH ---
Surgical Pathology Report Patient Name: JING KIM Med. Rec. #: [id number] /Age/Gender: 1945 (Age: 72) / M Account: [id number] Location: [facility] MED/SURG Taken: 08/17/2018 Received: 08/17/2018 Reported: 08/21/2018 Physicians: Deandra Briceño DPM PHYSICIAN EMERGENCY DEPT Specimen(s) Received BONE AND TISSUE LEFT FOOT Clinical History Left foot osteomyelitis Final Diagnosis FOOT, LEFT, BONE AND TISSUE, REVISION OF RAY AMPUTATION: BONE WITH REMODELING AND REACTIVE CHANGES. NO ACUTE OSTEOMYELITIS IDENTIFIED. DENSE FIBROCONNECTIVE TISSUE AND GRANULATION TISSUE. Electronically Signed Celsa Zavala M.D. Gross Description Received in formalin labeled "bone and tissue left foot," is a 5.0 x 3.6 x 1.8 cm aggregate of mcmillan, irregular to fragmented portions of bone and soft tissue. A specialty sales representative portion is submitted in one cassette, following decalcification. 08/20/2018 [facility]08/20/2018
[2018-08-22 00:08] LABS: HBSAG SCREEN Negative (Negative); HEP A AB, IGM Negative (Negative); HEP B CORE AB, TOT Negative (Negative)
== END 2018-08-20 17:09 | DRG 901 ==
LOC: JER 12:59 → JERBED 17:45 → J8W 19:44
PROVIDERS: ADMIT Internal Medicine; ATTEND Nurse Practitioner Adult Health
PROC: 0JBR0ZZ Excision of Left Foot Subcutaneous Tissue and Fascia, Open Approach (ICD-10-PCS; 2018-08-17)
PROC: 5A1D70Z Performance of Urinary Filtration, Intermittent, Less than 6 Hours Per Day (ICD-10-PCS; 2018-08-17)
PROC: 0QBP0ZZ Excision of Left Metatarsal, Open Approach (ICD-10-PCS; principal; 2018-08-17 09:30)
DX: T81.30XA Disruption of wound, unspecified, initial encounter (principal); N18.6 End stage renal disease; M86.8X7 Other osteomyelitis, ankle and foot; I13.2 Hypertensive heart and chronic kidney disease with heart failure and with stage 5 chronic kidney disease, or end stage renal disease; I50.22 Chronic systolic (congestive) heart failure; I25.10 Atherosclerotic heart disease of native coronary artery without angina pectoris; Z95.1 Presence of aortocoronary bypass graft; E78.5 Hyperlipidemia, unspecified; E03.9 Hypothyroidism, unspecified; I73.9 Peripheral vascular disease, unspecified; Z99.2 Dependence on renal dialysis; E11.22 Type 2 diabetes mellitus with diabetic chronic kidney disease; E11.51 Type 2 diabetes mellitus with diabetic peripheral angiopathy without gangrene; Y83.5 Amputation of limb(s) as the cause of abnormal reaction of the patient, or of later complication, without mention of misadventure at the time of the procedure; F32.9 Major depressive disorder, single episode, unspecified; K59.00 Constipation, unspecified; R91.1 Solitary pulmonary nodule; E11.69 Type 2 diabetes mellitus with other specified complication; Z95.0 Presence of cardiac pacemaker; Z79.4 Long term (current) use of insulin; E11.621 Type 2 diabetes mellitus with foot ulcer; L97.529 Non-pressure chronic ulcer of other part of left foot with unspecified severity; J44.9 Chronic obstructive pulmonary disease, unspecified
CPT/HCPCS: 11042; 36415; 73630-TC-LT; 80048; 80053; 81003; 81015; 82962; 85025; 85027; 85610; 85651; 86140; 86704; 86706; 86708; 86803; 87040; 87070; 87075; 87086; 87205; 87340; 88305-TC; 88311-TC; 94640; 94760; 99281-25; G0277; G0463-25; J0885

== ENCOUNTER 2018-12-09 11:39 | Inpatient (IN) | payer OTHER ==
--- NOTE | 2018-12-09 12:15 | PDOC ---
History of Present Illness - General Chief Complaint: Hematuria Stated Complaint: BLOOD IN URINE Time Seen by Provider: 12/09/18 12:15 - History of Present Illness Initial Comments: 72 year old male with male with PMH of PMH significant for CAD s/p CABG, HTN, HLD, hypothyroidism, PVD, ESRD on HD (T//Mon), hx of osteomyelitis (s/p left first toe amputation), DM, pacemaker placement who presents in the ED from [facility] for gross hematuria for two occurrences and left foot erythema and warmth. States that he went to urinate today and he had painless red "bloody" urine then had another episode an hour later. He has never had this color urine before and denies any genital pain, flank pain, or abdominal pain. He also noticed some erythema of the site of his amputation that was performed 4-[address] Oliver. States that he felt some pain and noticed very mild numbness ar the amputation stump. This morning the pain has worsened and the erythema has spread up to the middle of foot. Denies fevers, chills, nausea, vomiting, diarrhea, chills, or other symptoms. 12/09/18 12:21 Past History - Past Medical History Allergies/Adverse Reactions: Allergies Allergy/AdvReac Type Severity Reaction Status Date / Time oxycodone [From Percocet] Allergy Verified 12/09/18 11:40 gabapentin [From Neurontin] AdvReac Verified 12/09/18 11:40 Home Medications: Ambulatory Orders Acetaminophen 650 mg PO Q4H PRN 02/28/18 Aspirin [ASA -] 81 mg PO DAILY 02/28/18 Atorvastatin Ca [Lipitor] 80 mg PO HS 02/28/18 Calcium Acetate [Phoslo -] 667 mg PO TIDCM 02/28/18 Clopidogrel Bisulfate [Plavix -] 75 mg PO DAILY 02/28/18 Levothyroxine [Synthroid -] 25 mcg PO DAILY 02/28/18 Metoprolol Succinate [Toprol Xl] 150 mg PO DAILY 02/28/18 Pantoprazole Sodium 40 mg PO DAILY 02/28/18 Sennosides [Senna -] 1 tab PO HS 02/28/18 Sertraline HCl [Zoloft -] 50 mg PO HS 02/28/18 Albuterol 0.083% Nebulizer Yessi [Ventolin 0.083% Nebulizer Soln -] 1 amp IN Q8H PRN 03/28/18 Melatonin 3 mg PO HS 04/21/18 Cholecalciferol (Vitamin D3) [Vitamin D3] 1,000 unit PO DAILY 07/13/18 Insulin Sliding Scale [Novolog Vial Sliding Scale -] 0 units SQ BID 07/13/18 Vitamin B Comp W-C [Nephro-Misty -] 1 tablet PO DAILY 07/13/18 Vit A/Vitamin D3/E/Aloe V/Zinc [Periguard Ointment] 5 gm TP TID 07/14/18 Cardiac Disorders: Yes (CAD, A Fib(no anticoag-Massive GI BLEED IN 06/2017), PPM) COPD: No CHF: Yes Dementia: Yes (pt verbalizing he is forgetful some times) Diabetes: Yes Dialysis: Yes GI Disorders: Yes (bleed) Disorders: Yes HTN: Yes Hypercholesterolemia: Yes Liver Disease: Yes (DIC) Psychiatric Problems: Yes (depression, dementia) Thyroid Disease: Yes (Hypothyroidism) - Surgical History Appendectomy: Yes Cardiac Surgery: Yes (CABG x 3, PPM, Defibrillator) Lung Surgery: Yes (repair of a whole in lung) Orthopedic Surgery: Yes (Right hip replacement) - Suicide/Smoking/Psychosocial Hx Smoking History: Never smoked Have you smoked in the past 12 months: No Number of Cigarettes Smoked Daily: 5 If you are a former smoker, when did you quit?: 2005 Cigars Per Day: 0 Information on smoking cessation initiated: No Hx Alcohol Use: No Drug/Substance Use Hx: No Substance Use Type: None Hx Substance Use Treatment: No Review of Systems - Review of Systems Constitutional: No: Chills, Diaphoresis, Fever, Loss of Appetite HEENTM: No: Blurred Vision, Tearing Respiratory: No: Cough, Orthopnea, Shortness of Breath Cardiac (ROS): No: Edema, Irregular Heart Rate, Chest Tightness ABD/GI: No: Diarrhea, Nausea, Vomiting : No: Dysuria, Discharge Musculoskeletal: Yes: Joint Pain, Joint Swelling Integumentary: Yes: Erythema, Lesions, Rash Neurological: No: Numbness, Paresthesia Psychiatric: No: Anxiety, Depression Hematologic/Lymphatic: No: Anemia, Blood Clots, Easy Bleeding *Physical Exam - Vital Signs Last Vital Signs Temp Pulse Resp BP Pulse Ox 98.6 F 79 18 132/58 L 97 12/09/18 11:54 12/09/18 11:54 12/09/18 11:54 12/09/18 11:54 12/09/18 11:54 - Physical Exam General Appearance: Yes: Nourished, Appropriately Dressed. No: Apparent Distress HEENT: positive: EOMI, KASI, Normal ENT Inspection, Normal Voice Neck: positive: Trachea midline, Normal Thyroid, Supple. negative: Tender, Rigid Respiratory/Chest: positive: Lungs Clear, Normal Breath Sounds. negative: Chest Tender, Respiratory Distress, Accessory Muscle Use Cardiovascular: positive: Regular Rhythm, Regular Rate Gastrointestinal/Abdominal: positive: Normal Bowel Sounds, Flat, Soft. negative : Tender Lymphatic: negative: Adenopathy, Tenderness Musculoskeletal: negative: Normal Inspection (left first toe amputation with dark erythema and tenderness to the mid foot extendign from the amputation stump. Nothing), Decreased Range of Motion Extremity: positive: Normal Capillary Refill, Tender Integumentary: positive: Dry, Warm, Erythema. negative: Normal Color Neurologic: positive: Fully Oriented, Alert, Normal Mood/Affect, Normal Response , Motor Strength 5/5 Moderate Sedation - Procedure Monitoring Vital Signs: Procedure Monitoring Vital Signs Temperature 98.6 F 12/09/18 11:54 Pulse Rate 79 12/09/18 11:54 Respiratory Rate 18 12/09/18 11:54 Blood Pressure 132/58 L 12/09/18 11:54 O2 Sat by Pulse Oximetry (%) 97 12/09/18 11:54 ED Treatment Course - LABORATORY CBC & Chemistry Diagram: 12/09/18 12:42 12/09/18 12:42 Medical Decision Making - Medical Decision Making 72 year old male with recent left first toe amputation presenting with left toe pain, erythema, and warmth for the past day. Denies any systemic signs but this is at the site of a previous amputation and the rate of spread is impressive as it is at the mid foot after only one day. His CRP is also slightly elevated. Given the high risk of osteomyleitis and further decline of the foot, the patient will need admission for evaluation by Dr. Oliver and/or Navarro ([phone]). Call sent out to both and pending call back. 12/09/18 14:[address] Moshe Nur for further workup. Spoke to both Dr. oliver and Navarro. Dr. Briceño wants a uric acid as well. 12/09/18 16:30 *DC/Admit/Observation/Transfer Diagnosis at time of Disposition: Cellulitis Qualifiers: Site of cellulitis: extremity Site of cellulitis of extremity: lower extremity Laterality: left Qualified Code(s): L03.116 - Cellulitis of left lower limb Hematuria Qualifiers: Hematuria type: gross Qualified Code(s): R31.0 - Gross hematuria - Discharge Dispostion Decision to Admit order: Yes - Referrals - Patient Instructions - Post Discharge Activity
[2018-12-09 12:59] LABS: BASO % 0.7 % (0-2.0); EOS % 1.3 % (0-4.5); HEMATOCRIT 35.7 % (35.4-49); HEMOGLOBIN 12.3 GM/dL (11.7-16.9); LYMPH % 5.9 % (8-40); MCH 32.3 pg (25.7-33.7); MCHC 34.5 g/dl (32.0-35.9); MEAN CELL VOLUME 93.4 fl (80-96); MEAN PLT VOLUME 9.4 fl (7.5-11.1); MONO % 9.9 % (3.8-10.2); NEUT % 82.2 % (42.8-82.8); PLATELET COUNT 123 K/MM3 (134-434); RBC 3.82 M/mm3 (4.00-5.60); RDW 15.7 % (11.9-15.9); WHITE BLOOD COUNT 9.1 K/mm3 (4.0-10.0)
[2018-12-09 13:20] LABS: INR 1.06 (0.83-1.09); PROTHROMBIN TIME (PATIENT) 12.5 SEC (9.7-13.0)
[2018-12-09] MEDS ORDERED: PIPERACILLIN/TAZOB 4.5 GM 4.5 GM in DEXTROSE 5%-WATER 100 ML IVPB ONE (13:36)
[2018-12-09 13:37] LABS: ALBUMIN 3.8 g/dl (3.4-5.0); ALK PHOS 165 U/L (45-117); ANION GAP 8 MMOL/L (8-16); BILIRUBIN,TOTAL 0.6 mg/dL (0.2-1); BLOOD UREA NITROGEN 61 mg/dL (7-18); CALCIUM 7.5 mg/dL (8.5-10.1); CHLORIDE 94 mmol/L (98-107); CO2 30 mmol/L (21-32); GLUCOSE,RANDOM 113 mg/dL (74-106); POTASSIUM 4.7 mmol/L (3.5-5.1); SGOT/AST 32 U/L (15-37); SGPT/ALT 45 U/L (13-61); SODIUM 132 mmol/L (136-145); TOT PROT 7.3 g/dl (6.4-8.2)
[2018-12-09] MEDS ORDERED: PIPERACILLIN/TAZOB 4.5 GM 4.5 GM/100 ML BAG IVPB ONE (13:40)
[2018-12-09 13:48] LABS: CREATININE 7.5 mg/dL (0.55-1.3)
--- NOTE | 2018-12-09 14:24 | PDOC ---
Attending Attestation - Resident Resident Name: Tanya Choi - ED Attending Attestation I have performed the following: I have examined & evaluated the patient, The case was reviewed & discussed with the resident, I agree w/resident's findings & plan, Exceptions are as noted - HPI HPI: 12/09/18 14:50 The patient is a 72 year old male, with a significant PMH of CAD s/p CABG, Afib , COPD, DM, HTN, HLD, hypothyroidism, PVD s/p L great toe amputation, and ESRD ( hemodialysis //MON) who presents to the emergency department from the [facility] with hematuria, that began today, and L foot pain, since last night. The patient reports 2x episodes of hematuria. The patient notes he went to urinate and saw bloody urine, and an hour later he experienced the same thing. The patient denies any pain while urinating. The patient also reports redness and swelling around the site of his amputation since yesterday. The patient notes the amputation was performed [address] Briceño. The patient reports he experienced L foot pain and noticed slight numbness around the amputation stump last night. The patient notes this morning the L foot pain , redness, and swelling had worsened and spread to the middle of his foot. The patient denies chest pain, shortness of breath, headache and dizziness. Denies fever, chills, nausea, vomit, diarrhea and constipation. Denies dysuria, frequency, or urgency Allergies: oxycodone, gabapentin - Physicial Exam PE: 12/09/18 15:24 General: no acute distress, well nourished Pulm: cta b/l card: rrr, no mrg abd: soft nontender ext: mild erythema and warmth with ttp to site proximal to 1st MTP amputation site, no flcutance or induration - Medical Decision Making 12/09/18 14:20 72y M hx of ESRD, htn, hl, sp 1st toe amputation (08/2018) presents with hematuria, but also notes that he has had some redness and pain at the site of his amputation. w/o fever/chills will r/o uti with hematuria possible cellulitis proximal to site of amptuation vs osteomyelitis woud edges appear dry, no signs of infection at wound site will send blood work, abx will dw dr. oliver Heart Score/ECG Review - ECG Impressions Comment:: 12/09/18 15:31 Twelve-lead EKG was performed and reviewed by me. Atrial paced rhythm QTc interval of 498
[2018-12-09 14:26] LABS: ERYTHROCYTE SEDIMENTATION RATE 28 mm/hr (0-20)
[2018-12-09] MEDS ORDERED: VANCOMYCIN 1,000 MG in DEXTROSE 5%-WATER - 250 ML IVPB ONE (15:11)
[2018-12-09] MEDS ORDERED: VANCOMYCIN 1 GRAM (PRE-DOCKED) 1,000 MG/250 ML BAG IVPB ONE (15:16)
[2018-12-09] MEDS ORDERED: ALBUTEROL SO4 0.083% IH SOL 2.5 MG/3 ML VIAL.NEB. NEB PRN (15:52)
[2018-12-09] MEDS: CALCIUM ACETATE 667 MG CAPSULE (FP) PO SCH (18:41)
[2018-12-09] MEDS: INSULIN SLIDING SCALE (NOVOLOG) 1 VIAL SQ SCH (18:41)
--- NOTE | 2018-12-09 19:15 | CONSULT ---
Consult Consult Specialty:: Nephrology Reason for Consultation:: ESRD - History of Present Illness Chief Complaint: hematuria and left foot erythema History of Present Illness: Pt is a 72 year old male with pmhx of ESRD on TTS schedule, CAD, CABG, HTN, HLD , hypothyroidism, PVD, osteo, and anemia who presents to the ER from [place] for hematuria and for left foot erythema. He had two episodes of gross hematuria this morning. He juarez smake some urine. He denies dysuria. He denies weight loss. He also complains of erythema from his left foot. He denies fevers or chills. I was called to evaluate him as he is in HD. He last went to HD yesterday and is due for HD on Monday. 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 Cardio/Vascular: Yes: AFIB, CAD, CHF, HTN, Hyperlipdemia, [place], Mitral Insufficiency Pulmonary: Yes: COPD Gastrointestinal: Yes: GI Bleed Renal/: Yes: Renal Failure, Hemodialysis Psych: Yes: Anxiety Musculoskeletal: Yes: Other Endocrine: Yes: Diabetes Mellitus Dermatology: Yes: Other (gangarene left big toe) - Past Surgical History Past Surgical History: Yes: AICD, AV Fistula/Graft, CABG - Alcohol/Substance Use Hx Alcohol Use: No - Smoking History Smoking history: Never smoked Have you smoked in the past 12 months: No Aproximately how many cigarettes per day: 5 If you are a former smoker, when did you quit?: 2004 - Social History Usual Living Arrangement: [facility] History of Recent Travel: No Home Medications - Allergies Allergies/Adverse Reactions: Allergies Allergy/AdvReac Type Severity Reaction Status Date / Time oxycodone [From Percocet] Allergy Verified 12/09/18 11:40 gabapentin [From Neurontin] AdvReac Verified 12/09/18 11:40 - Home Medications Home Medications: Ambulatory Orders Acetaminophen 650 mg PO Q4H PRN 02/28/18 Aspirin [ASA -] 81 mg PO DAILY 02/28/18 Atorvastatin Ca [Lipitor] 80 mg PO HS 02/28/18 Calcium Acetate [Phoslo -] 667 mg PO TIDCM 02/28/18 Clopidogrel Bisulfate [Plavix -] 75 mg PO DAILY 02/28/18 Levothyroxine [Synthroid -] 25 mcg PO DAILY 02/28/18 Metoprolol Succinate [Toprol Xl] 150 mg PO DAILY 02/28/18 Pantoprazole Sodium 40 mg PO DAILY 02/28/18 Sennosides [Senna -] 1 tab PO HS 02/28/18 Sertraline HCl [Zoloft -] 50 mg PO HS 02/28/18 Albuterol 0.083% Nebulizer Yessi [Ventolin 0.083% Nebulizer Soln -] 1 amp IN Q8H PRN 03/28/18 Melatonin 3 mg PO HS 04/21/18 Cholecalciferol (Vitamin D3) [Vitamin D3] 1,000 unit PO DAILY 07/13/18 Insulin Sliding Scale [Novolog Vial Sliding Scale -] 0 units SQ BID 07/13/18 Vitamin B Comp W-C [Nephro-Misty -] 1 tablet PO DAILY 07/13/18 Vit A/Vitamin D3/E/Aloe V/Zinc [Periguard Ointment] 5 gm TP TID 07/14/18 Family Disease History - Family Disease History Family History: Denies Review of Systems - Review of Systems Constitutional: denies: Chills, Fever Eyes: reports: No Symptoms HENT: reports: No Symptoms Neck: reports: No Symptoms Cardiovascular: reports: No Symptoms Respiratory: reports: No Symptoms Gastrointestinal: reports: No Symptoms Genitourinary: reports: Hematuria. denies: Burning Musculoskeletal: reports: Other (left foot erythema) Integumentary: reports: Erythema Neurological: reports: No Symptoms Endocrine: reports: No Symptoms Hematology/Lymphatic: reports: No Symptoms Physical Exam Vital Signs: Vital Signs Temperature 98.6 F 12/09/18 11:54 Pulse Rate 80 12/09/18 15:23 Respiratory Rate 18 12/09/18 15:23 Blood Pressure 130/54 L 12/09/18 15:23 O2 Sat by Pulse Oximetry (%) 97 12/09/18 15:23 Constitutional: Yes: Calm Eyes: Yes: Conjunctiva Clear HENT: Yes: Atraumatic Neck: Yes: Supple Cardiovascular: Yes: S1, S2 Respiratory: Yes: CTA Bilaterally Gastrointestinal: Yes: Soft Renal/: Yes: WNL Musculoskeletal: Yes: WNL Extremities: Yes: Other (left foot erythema) Edema: No Neurological: Yes: Oriented Psychiatric: Yes: Oriented Labs: CBC, BMP 12/09/18 12:42 12/09/18 12:42 Laboratory Tests 12/09/18 12/09/18 12:42 12:42 WBC 9.1 Hgb 12.3 Sodium 132 L Potassium 4.7 Creatinine 7.5 H* Random Glucose 113 H Imaging - Results Chest X-ray: Report Reviewed Problem List - Problems (1) Cellulitis Code(s): L03.90 - CELLULITIS, UNSPECIFIED Qualifiers: Site of cellulitis: extremity Site of cellulitis of extremity: lower extremity Laterality: left Qualified Code(s): L03.116 - Cellulitis of left lower limb (2) Hematuria Code(s): R31.9 - HEMATURIA, UNSPECIFIED Qualifiers: Hematuria type: gross Qualified Code(s): R31.0 - Gross hematuria (3) Anemia Code(s): D64.9 - ANEMIA, UNSPECIFIED (4) COPD (chronic obstructive pulmonary disease) Code(s): J44.9 - CHRONIC OBSTRUCTIVE PULMONARY DISEASE, UNSPECIFIED Qualifiers: (5) ESRD (end stage renal disease) Code(s): N18.6 - END STAGE RENAL DISEASE Assessment/Plan Current Medications Generic Name Dose Route Start Last Admin Trade Name Freq PRN Reason Stop Dose Admin Acetaminophen 650 mg 12/09/18 15:52 Tylenol - PO Q4H PRN PAIN LEVEL 1 - 3 Albuterol Sulfate 1 amp 12/09/18 15:52 Ventolin 0.083% Nebulizer Soln - NEB Q4H PRN Dyspnea Aspirin 81 mg 12/10/18 10:00 Asa - PO DAILY [facility] Atorvastatin Calcium 80 mg 12/09/18 22:00 Lipitor - PO HS [facility] Calcium Acetate 667 mg 12/09/18 17:30 12/09/18 18:41 Phoslo - PO 667 mg TIDCM [facility] Administration Cholecalciferol 1,000 unit 12/10/18 10:00 Vitamin D3 - PO DAILY [facility] Clopidogrel Bisulfate 75 mg 12/10/18 10:00 Plavix - PO DAILY [facility] Enoxaparin Sodium 30 mg 12/10/18 10:00 Lovenox - SQ DAILY [facility] Insulin Aspart 1 vial 12/09/18 16:30 12/09/18 18:41 Novolog Vial Sliding Scale - SQ Not Given BIDAC [facility] Protocol Levothyroxine Sodium 25 mcg 12/10/18 07:00 Synthroid - PO DAILY@0700 [facility] Melatonin 3 mg 12/09/18 22:00 Melatonin PO HS [facility] Multivit/Ca Carb/B Cmplx/FA/Prenat 1 tablet 12/10/18 10:00 Nephro-Misty - PO DAILY [facility] Pantoprazole Sodium 40 mg 12/10/18 10:00 Protonix - PO DAILY [facility] Senna 1 tab 12/09/18 22:00 Senna - PO HS [facility] Sertraline HCl 50 mg 12/09/18 22:00 Zoloft - PO HS [facility] Vitamin A/Vitamin D 1 applic 12/09/18 22:00 Vitamin A & D Top Oint - TP TID [facility] Impression 1. ESRD 2. hx hemoptysis 3. DM 4. CAD 5. PVD 6. DFU 7. anemia 8. hx steal syndrome s/p DRIL procedure 9. CHF 10. pulmonary nodules 11. hematuria Plan - send ua and cultures - urology eval - check ultrasound kidneys and bladder - next HD on Monday - follow cultures - pt did get vanco and zosyn today in er - ID eval - renal diet - volume status is stable
[2018-12-09] MEDS: SERTRALINE HCL 50 MG TABLET (FP) PO SCH (21:39)
[2018-12-09] MEDS: ATORVASTATIN CA 80 MG TABLET (FP) PO SCH (21:39)
[2018-12-09] MEDS: VITAMINS A AND D TOPICAL OINTMENT 60 GM TUBE TP SCH (21:40)
[2018-12-09] MEDS: SENNOSIDES 8.6MG TABLET (FP) PO SCH (21:42)
[2018-12-09 21:56] LABS: URINE APPEARANCE CLOUDY; URINE BILIRUBIN NEGATIVE (<2.0 mg/dL); URINE COLOR RED; URINE GLUCOSE (UA) 2+ (NEGATIVE); URINE KETONE NEGATIVE (NEGATIVE); URINE LEUK ESTERASE 1+ (NEGATIVE); URINE NITRITE NEGATIVE (NEGATIVE); URINE PROTEIN 3+ (NEGATIVE); URINE UROBILINOGEN NEGATIVE mg/dL (0.2-1.0)
[2018-12-09] MEDS: MELATONIN 1 MG TABLET PO SCH (22:37)
[2018-12-10] MEDS: ACETAMINOPHEN 325 MG TABLET (FP) PO PRN (02:33)
[2018-12-10] MEDS: INSULIN SLIDING SCALE (NOVOLOG) 1 VIAL SQ SCH ×2 (06:03→16:23)
[2018-12-10] MEDS: VITAMINS A AND D TOPICAL OINTMENT 60 GM TUBE TP SCH ×3 (06:03→22:19)
[2018-12-10] MEDS: LEVOTHYROXINE NA 25 MCG TABLET (FP) PO SCH (06:04)
[2018-12-10] MEDS: CALCIUM ACETATE 667 MG CAPSULE (FP) PO SCH ×3 (08:09→17:51)
[2018-12-10 08:56] LABS: BASO % 0.9 % (0-2.0); EOS % 2.7 % (0-4.5); MCH 31.1 pg (25.7-33.7); MCHC 33.4 g/dl (32.0-35.9); MEAN PLT VOLUME 8.9 fl (7.5-11.1); MONO % 9.9 % (3.8-10.2); NEUT % 78.5 % (42.8-82.8); PLATELET COUNT 135 K/MM3 (134-434); RBC 3.87 M/mm3 (4.00-5.60); RDW 15.9 % (11.9-15.9); WHITE BLOOD COUNT 8.7 K/mm3 (4.0-10.0)
[2018-12-10] MEDS ORDERED: CLOPIDOGREL BISULFATE 75 MG TABLET (FP) PO SCH (10:00)
[2018-12-10] MEDS ORDERED: ENOXAPARIN NA (PORCINE) 30 MG/0.3 ML DISP.SYRIN SQ SCH (10:00)
[2018-12-10] MEDS: ASPIRIN 81 MG CHEWABLE TABLETS PO SCH (10:35)
[2018-12-10] MEDS: CHOLECALCIFEROL (VITAMIN D3) 1,000 UNIT TABLET (FP) PO SCH (10:35)
[2018-12-10] MEDS: PANTOPRAZOLE 40 MG TABLET (FP) PO SCH (10:35)
[2018-12-10] MEDS: VITAMIN B COMP W-C 1 EA TABLET PO SCH (10:35)
--- NOTE | 2018-12-10 10:46 | EKG ---
Test Reason : Blood Pressure : / mmHG Vent. Rate : 080 BPM Atrial Rate : 080 BPM P-R Int : 242 ms QRS Dur : 086 ms QT Int : 432 ms P-R-T Axes : 000 -18 115 degrees QTc Int : 498 ms Atrial-paced rhythm with prolonged AV conduction NONSPECIFIC T WAVE ABNORMALITY PROLONGED QT ABNORMAL ECG WHEN COMPARED WITH ECG OF 28-JUL-2018 13:28, NO SIGNIFICANT CHANGE WAS FOUND Confirmed by ADRIANA JENNINGS, TATYANA ([id number]) on 12/10/2018 10:46:09 AM Referred By: Confirmed By:TATYANA WRIGHT MD
--- NOTE | 2018-12-10 11:43 | HP ---
Admitting History and Physical - Primary Care Physician PCP: Moshe Nur - Admission History of Present Illness: pt seen/ examined chart reviewed case was discussed with er resident last night was send to er by raleigh Rainey Per Er records 72 year old male with male with PMH of PMH significant for CAD s/p CABG, HTN, HLD, hypothyroidism, PVD, ESRD on HD (T//Mon), hx of osteomyelitis (s/p left first toe amputation), DM, pacemaker placement who presents in the ED from [facility] for gross hematuria for two occurrences and left foot erythema and warmth. States that he went to urinate today and he had painless red "bloody" urine then had another episode an hour later. He has never had this color urine before and denies any genital pain, flank pain, or abdominal pain. He also noticed some erythema of the site of his amputation that was performed 4-[address] Nieves. States that he felt some pain and noticed very mild numbness ar the amputation stump. This morning the pain has worsened and the erythema has spread up to the middle of foot. Denies fevers, chills, nausea, vomiting, diarrhea, chills, or other symptoms. 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 Cardiovascular: Yes: AFIB, CAD, CHF, HTN, Hyperlipdemia, [place], Mitral Insufficiency Pulmonary: Yes: COPD Gastrointestinal: Yes: GI Bleed Renal/: Yes: Renal Failure, Hemodialysis Heme/Onc: Yes: Anemia Psych: Yes: Anxiety Musculoskeletal: Yes: Other Endocrine: Yes: Diabetes Mellitus Dermatology: Yes: Other (gangarene left big toe) - Past Surgical History Past Surgical History: Yes: AICD, AV Fistula/Graft, CABG - Smoking History Smoking history: Never smoked Have you smoked in the past 12 months: No Aproximately how many cigarettes per day: 5 If you are a former smoker, when did you quit?: 2004 - Alcohol/Substance Use Hx Alcohol Use: No - Social History History of Recent Travel: No Home Medications - Allergies Allergies/Adverse Reactions: Allergies Allergy/AdvReac Type Severity Reaction Status Date / Time oxycodone [From Percocet] Allergy Verified 12/09/18 11:40 gabapentin [From Neurontin] AdvReac Verified 12/09/18 11:40 - Home Medications Home Medications: Ambulatory Orders Acetaminophen 650 mg PO Q4H PRN 02/28/18 Aspirin [ASA -] 81 mg PO DAILY 02/28/18 Atorvastatin Ca [Lipitor] 80 mg PO HS 02/28/18 Calcium Acetate [Phoslo -] 667 mg PO TIDCM 02/28/18 Clopidogrel Bisulfate [Plavix -] 75 mg PO DAILY 02/28/18 Levothyroxine [Synthroid -] 25 mcg PO DAILY 02/28/18 Metoprolol Succinate [Toprol Xl] 150 mg PO DAILY 02/28/18 Pantoprazole Sodium 40 mg PO DAILY 02/28/18 Sennosides [Senna -] 1 tab PO HS 02/28/18 Sertraline HCl [Zoloft -] 50 mg PO HS 02/28/18 Albuterol 0.083% Nebulizer Yessi [Ventolin 0.083% Nebulizer Soln -] 1 amp IN Q8H PRN 03/28/18 Melatonin 3 mg PO HS 04/21/18 Cholecalciferol (Vitamin D3) [Vitamin D3] 1,000 unit PO DAILY 07/13/18 Insulin Sliding Scale [Novolog Vial Sliding Scale -] 0 units SQ BID 07/13/18 Vitamin B Comp W-C [Nephro-Misty -] 1 tablet PO DAILY 07/13/18 Vit A/Vitamin D3/E/Aloe V/Zinc [Periguard Ointment] 5 gm TP TID 07/14/18 Review of Systems Findings/Remarks: see [place] Physical Examination Vital Signs: Vital Signs Temperature 98 F 12/10/18 08:00 Pulse Rate 85 12/10/18 08:00 Respiratory Rate 20 12/10/18 08:00 Blood Pressure 122/85 12/10/18 08:00 O2 Sat by Pulse Oximetry (%) 96 12/09/18 21:00 Constitutional: Yes: No Distress, Calm Neck: Yes: Supple Cardiovascular: Yes: Regular Rate and Rhythm Respiratory: Yes: Diminished Gastrointestinal: Yes: Soft Extremities: Yes: Amputation (s/p left great toe amputation / reddness), Erythema, Other Edema: No Neurological: Yes: Alert Labs: CBC, BMP 12/10/18 08:20 12/09/18 12:42 Imaging - Results Chest X-ray: Report Reviewed X-ray: Report Reviewed EKG: Report Reviewed Problem List - Problems (1) Cellulitis Code(s): L03.90 - CELLULITIS, UNSPECIFIED Qualifiers: Site of cellulitis: extremity Site of cellulitis of extremity: lower extremity Laterality: left Qualified Code(s): L03.116 - Cellulitis of left lower limb (2) Hematuria Code(s): R31.9 - HEMATURIA, UNSPECIFIED Qualifiers: Hematuria type: gross Qualified Code(s): R31.0 - Gross hematuria (3) ASHD (arteriosclerotic heart disease) Code(s): I25.10 - ATHSCL HEART DISEASE OF [place] CORONARY ARTERY W/O ANG PCTRS (4) Chronic HFrEF (heart failure with reduced ejection fraction) Code(s): I50.22 - CHRONIC SYSTOLIC (CONGESTIVE) HEART FAILURE (5) Diabetes Code(s): E11.9 - TYPE 2 DIABETES MELLITUS WITHOUT COMPLICATIONS Qualifiers: Diabetes mellitus type: type 2 Diabetes mellitus senior care insulin use: without terminal gauger use Diabetes mellitus complication status: with neurologic complications (6) ESRD (end stage renal disease) on dialysis Code(s): N18.6 - END STAGE RENAL DISEASE; Z99.2 - DEPENDENCE ON RENAL DIALYSIS (7) Hepatitis C antibody test positive Code(s): R76.8 - OTHER SPECIFIED ABNORMAL IMMUNOLOGICAL FINDINGS IN SERUM (8) ICD (implantable cardioverter-defibrillator) in place Code(s): Z95.810 - PRESENCE OF AUTOMATIC (IMPLANTABLE) CARDIAC DEFIBRILLATOR (9) S/P CABG (coronary artery bypass graft) Code(s): Z95.1 - PRESENCE OF AORTOCORONARY BYPASS GRAFT (10) Status post amputation of left great toe Code(s): Z89.412 - ACQUIRED ABSENCE OF LEFT GREAT TOE Assessment/Plan hold asa/ plavix and lovenox urology and cardiology consults continue other meds abx add basal insulin dialysis per renal will follow. Podiatry / vascular consults pending discussed with nursing staff also.
--- NOTE | 2018-12-10 11:57 | CON.CARD ---
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 He had two episodes of gross hematuria this morning, renal U/S unrevealing for stones or hydronephrosis. He denies dysuria, fevers or chills, dyspnea, chest pain, palpitations, orthopnea, PND, LE edema. 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 Cardio/Vascular: Yes: AFIB, CAD, CHF, HTN, Hyperlipdemia, [place], Mitral Insufficiency Pulmonary: Yes: COPD Gastrointestinal: Yes: GI Bleed Renal/: Yes: Renal Failure, Hemodialysis Psych: Yes: Anxiety Musculoskeletal: Yes: Other Endocrine: Yes: Diabetes Mellitus Dermatology: Yes: Other (gangarene left big toe) - Past Surgical History Past Surgical History: Yes: AICD, AV Fistula/Graft, CABG - Alcohol/Substance Use Hx Alcohol Use: No - Smoking History Smoking history: Never smoked Have you smoked in the past 12 months: No Aproximately how many cigarettes per day: 5 If you are a former smoker, when did you quit?: 2004 - Social History Usual Living Arrangement: [facility] History of Recent Travel: No Home Medications - Allergies Allergies/Adverse Reactions: Allergies Allergy/AdvReac Type Severity Reaction Status Date / Time oxycodone [From Percocet] Allergy Verified 12/09/18 11:40 gabapentin [From Neurontin] AdvReac Verified 12/09/18 11:40 - Home Medications Home Medications: Ambulatory Orders Acetaminophen 650 mg PO Q4H PRN 02/28/18 Aspirin [ASA -] 81 mg PO DAILY 02/28/18 Atorvastatin Ca [Lipitor] 80 mg PO HS 02/28/18 Calcium Acetate [Phoslo -] 667 mg PO TIDCM 02/28/18 Clopidogrel Bisulfate [Plavix -] 75 mg PO DAILY 02/28/18 Levothyroxine [Synthroid -] 25 mcg PO DAILY 02/28/18 Metoprolol Succinate [Toprol Xl] 150 mg PO DAILY 02/28/18 Pantoprazole Sodium 40 mg PO DAILY 02/28/18 Sennosides [Senna -] 1 tab PO HS 02/28/18 Sertraline HCl [Zoloft -] 50 mg PO HS 02/28/18 Albuterol 0.083% Nebulizer Yessi [Ventolin 0.083% Nebulizer Soln -] 1 amp IN Q8H PRN 03/28/18 Melatonin 3 mg PO HS 04/21/18 Cholecalciferol (Vitamin D3) [Vitamin D3] 1,000 unit PO DAILY 07/13/18 Insulin Sliding Scale [Novolog Vial Sliding Scale -] 0 units SQ BID 07/13/18 Vitamin B Comp W-C [Nephro-Misty -] 1 tablet PO DAILY 07/13/18 Vit A/Vitamin D3/E/Aloe V/Zinc [Periguard Ointment] 5 gm TP TID 07/14/18 Review of Systems - Review of Systems Genitourinary: reports: Hematuria Integumentary: reports: Erythema Vital Signs: Vital Signs Temperature 98 F 12/10/18 08:00 Pulse Rate 85 12/10/18 08:00 Respiratory Rate 20 12/10/18 08:00 Blood Pressure 122/85 12/10/18 08:00 O2 Sat by Pulse Oximetry (%) 96 12/09/18 21:00 Constitutional: Yes: No Distress, Calm, Thin Neck: Yes: Supple Respiratory: Yes: Regular, Diminished Gastrointestinal: Yes: Normal Bowel Sounds, Soft Renal/: Yes: Hematuria Cardiovascular: Yes: Regular Rate and Rhythm JVD: No Carotid Bruit: No Heart Sounds: Yes: S1, S2 Murmur: Yes: Systolic Murmur, Grade 1 Extremities: Yes: Amputation (Left toe amputations) Edema: No - Other Data Labs, Other Data: CBC, BMP 12/10/18 08:20 12/09/18 12:42 INR, PTT INR 1.06 (0.83-1.09) 12/09/18 12:42 A-paced @ 80 Ejection Fraction %: LVEF < 40 % Imaging - Results Chest X-ray: Report Reviewed (NAD) Problem List - Problems (1) Hematuria Code(s): R31.9 - HEMATURIA, UNSPECIFIED Qualifiers: Hematuria type: gross Qualified Code(s): R31.0 - Gross hematuria (2) ASHD (arteriosclerotic heart disease) Code(s): I25.10 - ATHSCL HEART DISEASE OF [place] CORONARY ARTERY W/O ANG PCTRS (3) Chronic HFrEF (heart failure with reduced ejection fraction) Code(s): I50.22 - CHRONIC SYSTOLIC (CONGESTIVE) HEART FAILURE (4) Diabetes Code(s): E11.9 - TYPE 2 DIABETES MELLITUS WITHOUT COMPLICATIONS Qualifiers: Diabetes mellitus type: type 2 Diabetes mellitus local intermodal truck driver insulin use: without local intermodal truck driver use Diabetes mellitus complication status: with neurologic complications (5) ESRD (end stage renal disease) on dialysis Code(s): N18.6 - END STAGE RENAL DISEASE; Z99.2 - DEPENDENCE ON RENAL DIALYSIS (6) Hypothyroidism Code(s): E03.9 - HYPOTHYROIDISM, UNSPECIFIED Qualifiers: Hypothyroidism type: unspecified Qualified Code(s): E03.9 - Hypothyroidism , unspecified (7) ICD (implantable cardioverter-defibrillator) in place Code(s): Z95.810 - PRESENCE OF AUTOMATIC (IMPLANTABLE) CARDIAC DEFIBRILLATOR (8) Ischemic dilated cardiomyopathy Code(s): I25.5 - ISCHEMIC CARDIOMYOPATHY; I42.0 - DILATED CARDIOMYOPATHY (9) PVD (peripheral vascular disease) Code(s): I73.9 - PERIPHERAL VASCULAR DISEASE, UNSPECIFIED (10) S/P CABG (coronary artery bypass graft) Code(s): Z95.1 - PRESENCE OF AORTOCORONARY BYPASS GRAFT (11) S/P peripheral artery angioplasty with stent placement Code(s): Z95.820 - PERIPHERAL VASCULAR ANGIOPLASTY STATUS W IMPLANTS AND GRAFTS (12) Steal syndrome of dialysis vascular access Code(s): T82.898A - OTH COMPLICATION OF VASCULAR PROSTH DEV/GRFT, INIT Qualifiers: Encounter type: sequela Qualified Code(s): T82.898S - Other specified complication of vascular prosthetic devices, implants and grafts, sequela (13) Status post amputation of left great toe Code(s): Z89.412 - ACQUIRED ABSENCE OF LEFT GREAT TOE Assessment/Plan 1. Hematuria 2. PAD s/p SFA stent s/p left toe amputation 3. Chronic Systolic Heart Failure referable to ischemic dilated cardiomyopathy/ severe LV systolic dysfunction 4. CAD post remote IN post CABG angina pectoris 5. Post prophylactic ICD implant (Medtr[employer]'s device) 6. HTN/HCVD 7. IDDM 8. Hypercholesterolemia 9. ESRD on HD, right AVG with steal and hyperkalemia s/p right arm angiogram and DRIL procedure 10. Anemia of CKD 11. Hypothyroidism 12. History of GI bleed PLAN: 1. HD per nephrology and empiric antibiotic per C&S 2. Urology eval 3. Continue Toprol XL 150 qd, and Lipitor 80 qhs, resume Entresto as hemodynamics tolerate 4. D/c Plavix, continue ASA 81 qd 5. DVT and GI prophylaxis 6. Wound care 7. Thank you for consultative opportunity
--- NOTE | 2018-12-10 12:07 | CONSULT ---
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 Cardio/Vascular: Yes: AFIB, CAD, CHF, HTN, Hyperlipdemia, [place], Mitral Insufficiency Pulmonary: Yes: COPD Gastrointestinal: Yes: GI Bleed Renal/: Yes: Renal Failure, Hemodialysis Psych: Yes: Anxiety Musculoskeletal: Yes: Other Endocrine: Yes: Diabetes Mellitus Dermatology: Yes: Other (gangarene left big toe) - Past Surgical History Past Surgical History: Yes: AICD, AV Fistula/Graft, CABG - Alcohol/Substance Use Hx Alcohol Use: No - Smoking History Smoking history: Never smoked Have you smoked in the past 12 months: No Aproximately how many cigarettes per day: 5 If you are a former smoker, when did you quit?: 2004 - Social History Usual Living Arrangement: [facility] History of Recent Travel: No Home Medications - Allergies Allergies/Adverse Reactions: Allergies Allergy/AdvReac Type Severity Reaction Status Date / Time oxycodone [From Percocet] Allergy Verified 12/09/18 11:40 gabapentin [From Neurontin] AdvReac Verified 12/09/18 11:40 - Home Medications Home Medications: Ambulatory Orders Acetaminophen 650 mg PO Q4H PRN 02/28/18 Aspirin [ASA -] 81 mg PO DAILY 02/28/18 Atorvastatin Ca [Lipitor] 80 mg PO HS 02/28/18 Calcium Acetate [Phoslo -] 667 mg PO TIDCM 02/28/18 Clopidogrel Bisulfate [Plavix -] 75 mg PO DAILY 02/28/18 Levothyroxine [Synthroid -] 25 mcg PO DAILY 02/28/18 Metoprolol Succinate [Toprol Xl] 150 mg PO DAILY 02/28/18 Pantoprazole Sodium 40 mg PO DAILY 02/28/18 Sennosides [Senna -] 1 tab PO HS 02/28/18 Sertraline HCl [Zoloft -] 50 mg PO HS 02/28/18 Albuterol 0.083% Nebulizer Yessi [Ventolin 0.083% Nebulizer Soln -] 1 amp IN Q8H PRN 03/28/18 Melatonin 3 mg PO HS 04/21/18 Cholecalciferol (Vitamin D3) [Vitamin D3] 1,000 unit PO DAILY 07/13/18 Insulin Sliding Scale [Novolog Vial Sliding Scale -] 0 units SQ BID 07/13/18 Vitamin B Comp W-C [Nephro-Misty -] 1 tablet PO DAILY 07/13/18 Vit A/Vitamin D3/E/Aloe V/Zinc [Periguard Ointment] 5 gm TP TID 07/14/18 Physical Exam Vital Signs: Vital Signs Temperature 98 F 12/10/18 08:00 Pulse Rate 85 12/10/18 08:00 Respiratory Rate 20 12/10/18 08:00 Blood Pressure 122/85 12/10/18 08:00 O2 Sat by Pulse Oximetry (%) 96 12/09/18 21:00 Extremities: Yes: Other (left foot s/p 1st ray amputation. +cellulitis to ankle left, -drainage, -mal odor, -tender) Labs: CBC, BMP 12/10/18 08:20 12/09/18 12:42 Imaging - Results X-ray: Image Reviewed Assessment/Plan cellulitis s/p tma 1st ray IVABX as per ID. Will follow. No intervention surgically at this time.
--- NOTE | 2018-12-10 13:31 | CON.GU ---
Consult Consult Specialty:: Referred by:: Boom Reason for Consultation:: gross painless hematuria - History of Present Illness Chief Complaint: bloody urine History of Present Illness: 72 year old male with male with PMH of PMH significant for CAD s/p CABG, HTN, HLD, hypothyroidism, PVD, ESRD on HD (T//Mon), hx of osteomyelitis (s/p left first toe amputation), DM, pacemaker placement who presents in the ED from [facility] for gross hematuria for two occurrences and left foot erythema and warmth. States that he went to urinate today and he had painless red "bloody" urine then had another episode an hour later. He has never had this color urine before and denies any genital pain, flank pain, or abdominal pain. He also noticed some erythema of the site of his amputation that was performed 4-[address] Nieves. States that he felt some pain and noticed very mild numbness ar the amputation stump. This morning the pain has worsened and the erythema has spread up to the middle of foot. Denies fevers, chills, nausea, vomiting, diarrhea, chills, or other symptoms. cons req. 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 Cardio/Vascular: Yes: AFIB, CAD, CHF, HTN, Hyperlipdemia, [place], Mitral Insufficiency Pulmonary: Yes: COPD Gastrointestinal: Yes: GI Bleed Renal/: Yes: Renal Failure, Hemodialysis Psych: Yes: Anxiety Musculoskeletal: Yes: Other Endocrine: Yes: Diabetes Mellitus Dermatology: Yes: Other (gangarene left big toe) - Past Surgical History Past Surgical History: Yes: AICD, AV Fistula/Graft, CABG - Alcohol/Substance Use Hx Alcohol Use: No - Smoking History Smoking history: Never smoked Have you smoked in the past 12 months: No Aproximately how many cigarettes per day: 5 If you are a former smoker, when did you quit?: 2004 - Social History Usual Living Arrangement: Long Term History of Recent Travel: No Home Medications - Allergies Allergies/Adverse Reactions: Allergies Allergy/AdvReac Type Severity Reaction Status Date / Time oxycodone [From Percocet] Allergy Verified 12/09/18 11:40 gabapentin [From Neurontin] AdvReac Verified 12/09/18 11:40 - Home Medications Home Medications: Ambulatory Orders Acetaminophen 650 mg PO Q4H PRN 02/28/18 Aspirin [ASA -] 81 mg PO DAILY 02/28/18 Atorvastatin Ca [Lipitor] 80 mg PO HS 02/28/18 Calcium Acetate [Phoslo -] 667 mg PO TIDCM 02/28/18 Clopidogrel Bisulfate [Plavix -] 75 mg PO DAILY 02/28/18 Levothyroxine [Synthroid -] 25 mcg PO DAILY 02/28/18 Metoprolol Succinate [Toprol Xl] 150 mg PO DAILY 02/28/18 Pantoprazole Sodium 40 mg PO DAILY 02/28/18 Sennosides [Senna -] 1 tab PO HS 02/28/18 Sertraline HCl [Zoloft -] 50 mg PO HS 02/28/18 Albuterol 0.083% Nebulizer Yessi [Ventolin 0.083% Nebulizer Soln -] 1 amp IN Q8H PRN 03/28/18 Melatonin 3 mg PO HS 04/21/18 Cholecalciferol (Vitamin D3) [Vitamin D3] 1,000 unit PO DAILY 07/13/18 Insulin Sliding Scale [Novolog Vial Sliding Scale -] 0 units SQ BID 07/13/18 Vitamin B Comp W-C [Nephro-Misty -] 1 tablet PO DAILY 07/13/18 Vit A/Vitamin D3/E/Aloe V/Zinc [Periguard Ointment] 5 gm TP TID 07/14/18 Review of Systems - Review of Systems Genitourinary: reports: Hematuria. denies: Burning, Dysuria, Flank Pain, Frequency Physical Exam- Vital Signs: Vital Signs Temperature 98.3 F 12/10/18 13:12 Pulse Rate 80 12/10/18 13:12 Respiratory Rate 17 12/10/18 13:12 Blood Pressure 141/71 12/10/18 13:12 O2 Sat by Pulse Oximetry (%) 96 12/09/18 21:00 Gastrointestinal: Yes: WNL, Normal Bowel Sounds, Soft Renal/: Yes: WNL. No: Bladder Distention, CVA Tenderness - Left, CVA Tenderness - Right Kidneys: Yes: WNL Pelvis: Yes: Bladder Non Palpable Testicles: Yes: WNL, Descended Scrotum: Yes: WNL Penis: Yes: WNL Prostate Exam: Yes: WNL Labs: CBC, BMP 12/10/18 08:20 12/09/18 12:42 Imaging - Results Ultrasound: Report Reviewed Problem List - Problems (1) Hematuria Assessment/Plan: cystoscopy in my office after disch and ur cx neg Code(s): R31.9 - HEMATURIA, UNSPECIFIED Qualifiers: Hematuria type: gross (2) ESRD (end stage renal disease) on dialysis Code(s): N18.6 - END STAGE RENAL DISEASE; Z99.2 - DEPENDENCE ON RENAL DIALYSIS (3) UTI (urinary tract infection) Assessment/Plan: ur cx., iv abxs Code(s): N39.0 - URINARY TRACT INFECTION, SITE NOT SPECIFIED
--- NOTE | 2018-12-10 14:44 | PN ---
Progress Note (short form) - Note Progress Note: ID CONSULT DICTATED CELLULITIS L FOOT PAINLESS HEMATURIA ? CYSTITIS ESRD PENDING C/S EMPIRIC VANCOMYCIN/ ZOSYN ADJUSTED FOR ESRD
--- NOTE | 2018-12-10 15:01 | PN ---
Progress Note (short form) - Note Progress Note: Vascular Surgery pt seen and examined. Cellulitis left foot. Area of amputation is healed. Cont antibiotics. Feels better. Robel Nieves DO
--- NOTE | 2018-12-10 16:21 | PN ---
Progress Note, Physician History of Present Illness: Pt seen and examined at bedside. He is awake and alert. He denies fevers or chills. - Current Medication List Current Medications: Active Medications Acetaminophen (Tylenol -) 650 mg PO Q4H PRN PRN Reason: PAIN LEVEL 1 - 3 Last Admin: 12/10/18 02:33 Dose: 650 mg Albuterol Sulfate (Ventolin 0.083% Nebulizer Soln -) 1 amp NEB Q4H PRN PRN Reason: Dyspnea Aspirin (Asa -) 81 mg PO DAILY [facility] Last Admin: 12/10/18 10:35 Dose: Not Given Atorvastatin Calcium (Lipitor -) 80 mg PO [facility] Last Admin: 12/09/18 21:39 Dose: 80 mg Calcium Acetate (Phoslo -) 667 mg PO TIDCM [facility] Last Admin: 12/10/18 12:04 Dose: 667 mg Cholecalciferol (Vitamin D3 -) 1,000 unit PO DAILY [facility] Last Admin: 12/10/18 10:35 Dose: 1,000 unit Insulin Aspart (Novolog Vial Sliding Scale -) 1 vial SQ BIDAC [facility]; Protocol Last Admin: 12/10/18 06:03 Dose: Not Given Insulin Detemir (Levemir Vial) 5 units SQ [facility] Levothyroxine Sodium (Synthroid -) 25 mcg PO DAILY@0700 [facility] Last Admin: 12/10/18 06:04 Dose: 25 mcg Melatonin (Melatonin) 3 mg PO [facility] Last Admin: 12/09/18 22:37 Dose: Not Given Multivit/Ca Carb/B Cmplx/FA/Prenat (Nephro-Misty -) 1 tablet PO DAILY [facility] Last Admin: 12/10/18 10:35 Dose: 1 tablet Pantoprazole Sodium (Protonix -) 40 mg PO DAILY [facility] Last Admin: 12/10/18 10:35 Dose: 40 mg Senna (Senna -) 1 tab PO [facility] Last Admin: 12/09/18 21:42 Dose: Not Given Sertraline HCl (Zoloft -) 50 mg PO [facility] Last Admin: 12/09/18 21:39 Dose: 50 mg Vitamin A/Vitamin D (Vitamin A & D Top Oint -) 1 applic TP TID [facility] Last Admin: 12/10/18 06:03 Dose: Not Given - Objective Vital Signs: Vital Signs Temperature 98.3 F 03/04/19 13:12 Pulse Rate 80 12/10/18 13:12 Respiratory Rate 17 12/10/18 13:12 Blood Pressure 141/71 12/10/18 13:12 O2 Sat by Pulse Oximetry (%) 96 12/10/18 09:00 Constitutional: Yes: Calm Eyes: Yes: Conjunctiva Clear HENT: Yes: Atraumatic Neck: Yes: Supple Cardiovascular: Yes: S1, S2 Respiratory: Yes: CTA Bilaterally Gastrointestinal: Yes: Soft Genitourinary: Yes: WNL Edema: No Integumentary: Yes: Erythema Neurological: Yes: Oriented Psychiatric: Yes: Oriented Labs: CBC, BMP 12/10/18 08:20 12/09/18 12:42 INR, PTT INR 1.06 (0.83-1.09) 12/09/18 12:42 Problem List - Problems (1) Cellulitis Code(s): L03.90 - CELLULITIS, UNSPECIFIED Qualifiers: Site of cellulitis: extremity Site of cellulitis of extremity: lower extremity Laterality: left Qualified Code(s): L03.116 - Cellulitis of left lower limb (2) Hematuria Code(s): R31.9 - HEMATURIA, UNSPECIFIED Qualifiers: Hematuria type: gross Qualified Code(s): R31.0 - Gross hematuria (3) Anemia Code(s): D64.9 - ANEMIA, UNSPECIFIED (4) COPD (chronic obstructive pulmonary disease) Code(s): J44.9 - CHRONIC OBSTRUCTIVE PULMONARY DISEASE, UNSPECIFIED Qualifiers: (5) ESRD (end stage renal disease) Code(s): N18.6 - END STAGE RENAL DISEASE Assessment/Plan Current Medications Generic Name Dose Route Start Last Admin Trade Name Freq PRN Reason Stop Dose Admin Acetaminophen 650 mg 12/09/18 15:52 Tylenol - PO Q4H PRN PAIN LEVEL 1 - 3 Albuterol Sulfate 1 amp 12/09/18 15:52 Ventolin 0.083% Nebulizer Soln - NEB Q4H PRN Dyspnea Aspirin 81 mg 12/10/18 10:00 Asa - PO DAILY [facility] Atorvastatin Calcium 80 mg 12/09/18 22:00 Lipitor - PO HS [facility] Calcium Acetate 667 mg 12/09/18 17:30 12/09/18 18:41 Phoslo - PO 667 mg TIDCM [facility] Administration Cholecalciferol 1,000 unit 12/10/18 10:00 Vitamin D3 - PO DAILY [facility] Clopidogrel Bisulfate 75 mg 12/10/18 10:00 Plavix - PO DAILY [facility] Enoxaparin Sodium 30 mg 12/10/18 10:00 Lovenox - SQ DAILY [facility] Insulin Aspart 1 vial 12/09/18 16:30 12/09/18 18:41 Novolog Vial Sliding Scale - SQ Not Given BIDAC [facility] Protocol Levothyroxine Sodium 25 mcg 12/10/18 07:00 Synthroid - PO DAILY@0700 [facility] Melatonin 3 mg 12/09/18 22:00 Melatonin PO HS [facility] Multivit/Ca Carb/B Cmplx/FA/Prenat 1 tablet 12/10/18 10:00 Nephro-Misty - PO DAILY [facility] Pantoprazole Sodium 40 mg 12/10/18 10:00 Protonix - PO DAILY [facility] Senna 1 tab 12/09/18 22:00 Senna - PO HS [facility] Sertraline HCl 50 mg 12/09/18 22:00 Zoloft - PO HS [facility] Vitamin A/Vitamin D 1 applic 12/09/18 22:00 Vitamin A & D Top Oint - TP TID [facility] Impression 1. ESRD 2. hx hemoptysis 3. DM 4. CAD 5. PVD 6. DFU 7. anemia 8. hx steal syndrome s/p DRIL procedure 9. CHF 10. pulmonary nodules 11. hematuria Plan - HD tomorrow - he did get aranesp 40 on last Teusday - follow cultures - urology input appreciated, will need cysto - ID eval - renal diet - volume status is stable - 2 k bath 1000 heparin bolus 500 maintenance, RUE fistula, 3 30, hectorol 1 mcg
--- NOTE | 2018-12-10 17:29 | CONS ---
DATE OF CONSULTATION: DATE OF DICTATION: 12/10/2018 INFECTIOUS DISEASE CONSULTATION HISTORY OF PRESENT ILLNESS: The patient is a 72-year-old male, history of end-stage renal disease on hemodialysis, evaluated for cellulitis of the left foot and hematuria. The patient was admitted to the hospital on December 09, 2018, after onset of painless gross hematuria and left foot pain. 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 His course at that time was complicated by wound dehiscence requiring debridement and amputation of the first metatarsal. He reports doing well until approximately 1-2 days prior to admission he developed abrupt onset of left foot swelling and erythema. He denies any traumatic injury. No drainage from the healed surgical wound, no fever or chills. In addition, the patient developed onset of gross hematuria. He reports it is painless. He denies any dysuria. He was seen in consultation from urology. Further workup is planned. He denies any suprapubic or flank pain. PAST MEDICAL HISTORY: Positive for end-stage renal disease on hemodialysis, peripheral vascular disease, hypothyroidism, coronary artery disease, hypertension, hyperlipidemia, atrial fibrillation, depression. PAST SURGICAL HISTORY: Status post amputation of toes, permanent pacemaker. ALLERGIES: OXYCODONE and NEURONTIN. MEDICATION: Tylenol, aspirin, Lipitor, Plavix, Synthroid, Toprol, Zoloft, NovoLog. SOCIAL HISTORY: Resides in the community. Denies tobacco or alcohol use. SYSTEMS REVIEW: Neurologic: No loss of consciousness, seizure activity, focal weakness. Cardiac: Negative for chest pain or palpitations. Respiratory: Negative for cough or sputum production. Gastrointestinal: Negative vomiting or diarrhea. Genitourinary: As per HPI. LABORATORY DATA: White count 8.7, hematocrit 36.0, platelet count 135, ESR 28, C-reactive protein 4.7, BUN 61, creatinine 7.5, total bilirubin 0.6, alkaline phosphatase 165, AST 32. Urinalysis: 531 white cells, 406 red cells. Cultures pending. PHYSICAL EXAMINATION: General: On exam, the patient is awake and alert. He is not acutely toxic appearing. Vital signs: Temperature 98.3, blood pressure 141/71, pulse 80 regular, respirations 17 per minute. HEENT: Sclerae anicteric. Cardiovascular: Heart sounds S1, S2. Lungs: Clear. Abdomen: Soft. No suprapubic or flank tenderness. Extremities: Left lower extremity status post amputation of toes. Surgical wound well healed. Erythema extending from the surgical wound proximally up the dorsum of the foot to mid foot, 1+ edema, no crepitus, fluctuance, or lymphangitic streaking. IMPRESSION: 1. Cellulitis left foot. 2. Painless hematuria, rule out cystitis. 3. End-stage renal disease on dialysis. Await cultures. Empiric antibiotic coverage with vancomycin and Zosyn adjusted for renal insufficiency. Urology evaluation and followup. Will likely require cystoscopy in the near future. Thank you for the kind referral. DORITA MAYER M.D. [id number]
[2018-12-10] MEDS ORDERED: PNEUMOC 13-VAL CONJ-DIP CRM/PF 0.5 ML DISP.SYRIN IM ONE (18:30)
[2018-12-10] MEDS ORDERED: INSULIN (NOVOLOG) ASPART 100 UNITS/ML 10ML VIAL ONE (22:03)
[2018-12-10] MEDS ORDERED: PT OWN MED DRAWER 7, Y5N ONE (22:04)
[2018-12-10] MEDS: INSULIN (LEVEMIR) 100 UNITS/ML UNITS SQ SCH (22:17)
[2018-12-10] MEDS: SENNOSIDES 8.6MG TABLET (FP) PO SCH (22:18)
[2018-12-10] MEDS: SERTRALINE HCL 50 MG TABLET (FP) PO SCH (22:18)
[2018-12-10] MEDS: MELATONIN 1 MG TABLET PO SCH (22:18)
[2018-12-10] MEDS: ATORVASTATIN CA 80 MG TABLET (FP) PO SCH (22:18)
[2018-12-11] MEDS: LEVOTHYROXINE NA 25 MCG TABLET (FP) PO SCH (06:25)
[2018-12-11] MEDS: INSULIN SLIDING SCALE (NOVOLOG) 1 VIAL SQ SCH ×2 (06:27→17:21)
[2018-12-11] MEDS: VITAMINS A AND D TOPICAL OINTMENT 60 GM TUBE TP SCH ×3 (06:29→21:30)
[2018-12-11] MEDS ORDERED: INSULIN (NOVOLOG) ASPART 100 UNITS/ML 10ML VIAL ONE ×2 (06:50→17:29)
[2018-12-11] MEDS ORDERED: PT OWN MED DRAWER 7, Y5N ONE ×2 (06:50→17:28)
[2018-12-11] MEDS ORDERED: INSULIN (LEVEMIR) 100 UNITS/ML UNITS SQ ONE (06:50)
[2018-12-11 10:29] LABS: HEMATOCRIT 34.3 % (35.4-49); HEMOGLOBIN 11.6 GM/dL (11.7-16.9); MCH 31.5 pg (25.7-33.7); MCHC 33.7 g/dl (32.0-35.9); MEAN CELL VOLUME 93.3 fl (80-96); PLATELET COUNT 156 K/MM3 (134-434); RBC 3.68 M/mm3 (4.00-5.60); RDW 15.7 % (11.9-15.9); WHITE BLOOD COUNT 9.5 K/mm3 (4.0-10.0)
[2018-12-11] MEDS ORDERED: SODIUM CHLORIDE 250 ML IV PRN (10:44)
[2018-12-11] MEDS ORDERED: PARICALCITOL 5 MCG/ML VIAL IVPUSH ONE (10:45)
[2018-12-11] MEDS ORDERED: HEPARIN NA (PORCINE) 5,000 UNITS/ML 1ML VIAL IVPUSH ONE ×2 (10:45→16:45)
[2018-12-11] MEDS ORDERED: HEPARIN NA (PORCINE) 5,000 UNITS/ML 1ML VIAL IVPUSH SCH (11:00)
--- NOTE | 2018-12-11 11:22 | PN ---
Progress Note (short form) - Note Progress Note: Pt examined in dialysis pain in left foot decreased redness decreased no fever or chills Vital Signs - 24 hr 12/10/18 12/10/18 12/10/18 13:12 18:02 21:00 Temperature 98.3 F 98.3 F Pulse Rate 80 84 Respiratory 17 18 18 Rate Blood Pressure 141/71 122/59 L O2 Sat by Pulse 96 Oximetry (%) 12/10/18 12/11/18 12/11/18 22:00 06:00 10:05 Temperature 98.0 F 98.2 F Pulse Rate 80 80 80 Respiratory 18 18 18 Rate Blood Pressure 145/67 143/67 143/70 O2 Sat by Pulse Oximetry (%) 12/11/18 12/11/18 12/11/18 10:10 10:40 11:10 Temperature Pulse Rate 80 80 80 Respiratory 18 18 18 Rate Blood Pressure 141/66 142/62 139/59 L O2 Sat by Pulse Oximetry (%) Current Medications Generic Name Dose Route Start Last Admin Trade Name Freq PRN Reason Stop Dose Admin Acetaminophen 650 mg 12/09/18 15:52 12/10/18 02:33 Tylenol - PO 650 mg Q4H PRN Administration PAIN LEVEL 1 - 3 Albuterol Sulfate 1 amp 12/09/18 15:52 Ventolin 0.083% Nebulizer Soln - NEB Q4H PRN Dyspnea Aspirin 81 mg 12/10/18 10:00 12/10/18 10:35 Asa - PO Not Given DAILY [facility] Atorvastatin Calcium 80 mg 12/09/18 22:00 12/10/18 22:18 Lipitor - PO 80 mg HS [facility] Administration Calcium Acetate 667 mg 12/09/18 17:30 12/10/18 17:51 Phoslo - PO 667 mg TIDCM [facility] Administration Cholecalciferol 1,000 unit 12/10/18 10:00 12/10/18 10:35 Vitamin D3 - PO 1,000 unit DAILY [facility] Administration Heparin Sodium (Porcine) 500 unit 12/11/18 11:00 12/11/18 10:56 Heparin - IVPUSH 12/11/18 13:01 Not Given Q1H [facility] Insulin Aspart 1 vial 12/09/18 16:30 12/11/18 06:27 Novolog Vial Sliding Scale - SQ Not Given BIDAC [facility] Protocol Insulin Detemir 5 units 12/10/18 22:00 12/10/18 22:17 Levemir Vial SQ 5 units HS [facility] Administration Levothyroxine Sodium 25 mcg 12/10/18 07:00 12/11/18 06:25 Synthroid - PO 25 mcg DAILY@0700 [facility] Administration Melatonin 3 mg 12/09/18 22:00 12/10/18 22:18 Melatonin PO 3 mg HS [facility] Administration Multivit/Ca Carb/B Cmplx/FA/Prenat 1 tablet 12/10/18 10:00 12/10/18 10:35 Nephro-Misty - PO 1 tablet DAILY [facility] Administration Pantoprazole Sodium 40 mg 12/10/18 10:00 12/10/18 10:35 Protonix - PO 40 mg DAILY [facility] Administration Senna 1 tab 12/09/18 22:00 12/10/18 22:18 Senna - PO 1 tab HS [facility] Administration Sertraline HCl 50 mg 12/09/18 22:00 12/10/18 22:18 Zoloft - PO 50 mg HS [facility] Administration Vitamin A/Vitamin D 1 applic 12/09/18 22:00 12/11/18 06:29 Vitamin A & D Top Oint - TP Not Given TID [facility] Laboratory Results - last 24 hr 12/10/18 12/10/18 12/11/18 16:12 22:13 01:30 WBC RBC Hgb Hct MCV MCH MCHC RDW Plt Count MPV POC Glucometer 199 278 Uric Acid Cancelled 12/11/18 12/11/18 12/11/18 06:26 09:40 09:40 WBC 9.5 RBC 3.68 L Hgb 11.6 L Hct 34.3 L MCV 93.3 MCH 31.5 MCHC 33.7 RDW 15.7 Plt Count 156 MPV 9.0 POC Glucometer 97 Uric Acid 5.6 no pallor S1 S2 RRR Lungs clear Abd- soft, NT no edema Left foot-- toe amputation site is healed, clean, erythema on distal potion- slight tender+, warm erythema improved PLAN IV antibiotics per ID HD per renal Urology eval noted-- currently urine is clearer On ASA will need cystoscopy as outpt Plavix dc per Cardiology HCT stable Problem List - Problems (1) Cellulitis Code(s): L03.90 - CELLULITIS, UNSPECIFIED Qualifiers: Site of cellulitis: extremity Site of cellulitis of extremity: lower extremity Laterality: left Qualified Code(s): L03.116 - Cellulitis of left lower limb (2) Hematuria Code(s): R31.9 - HEMATURIA, UNSPECIFIED Qualifiers: Hematuria type: gross Qualified Code(s): R31.0 - Gross hematuria (3) UTI (urinary tract infection) Code(s): N39.0 - URINARY TRACT INFECTION, SITE NOT SPECIFIED (4) ASHD (arteriosclerotic heart disease) Code(s): I25.10 - ATHSCL HEART DISEASE OF [place] CORONARY ARTERY W/O ANG PCTRS (5) CHF (congestive heart failure), NYHA class IV Code(s): I50.9 - HEART FAILURE, UNSPECIFIED Qualifiers: Congestive heart failure type: systolic Congestive heart failure chronicity : chronic Qualified Code(s): I50.22 - Chronic systolic (congestive) heart failure (6) Diabetes Code(s): E11.9 - TYPE 2 DIABETES MELLITUS WITHOUT COMPLICATIONS Qualifiers: Diabetes mellitus type: type 2 Diabetes mellitus [employer] insulin use: without fdc use Diabetes mellitus complication status: with neurologic complications (7) ESRD (end stage renal disease) Code(s): N18.6 - END STAGE RENAL DISEASE
[2018-12-11 11:40] LABS: ANION GAP 13 MMOL/L (8-16); BLOOD UREA NITROGEN 91 mg/dL (7-18); CALCIUM 7.2 mg/dL (8.5-10.1); CHLORIDE 97 mmol/L (98-107); CO2 24 mmol/L (21-32); GLUCOSE,RANDOM 159 mg/dL (74-106); POTASSIUM 5.6 mmol/L (3.5-5.1); SODIUM 134 mmol/L (136-145)
[2018-12-11 11:43] LABS: CREATININE 10.8 mg/dL (0.55-1.3)
[2018-12-11] MEDS: CALCIUM ACETATE 667 MG CAPSULE (FP) PO SCH ×3 (11:52→17:21)
[2018-12-11] MEDS: PANTOPRAZOLE 40 MG TABLET (FP) PO SCH ×2 (11:52→14:06)
[2018-12-11] MEDS: VITAMIN B COMP W-C 1 EA TABLET PO SCH ×2 (11:52→14:06)
[2018-12-11] MEDS: CHOLECALCIFEROL (VITAMIN D3) 1,000 UNIT TABLET (FP) PO SCH ×2 (11:52→14:06)
--- NOTE | 2018-12-11 11:52 | PN ---
Progress Note, Physician History of Present Illness: Pt seen and examined at bedside. He is awake and alert. He is tolerating HD. He made urine today but did not see blood in it. - Current Medication List Current Medications: Active Medications Acetaminophen (Tylenol -) 650 mg PO Q4H PRN PRN Reason: PAIN LEVEL 1 - 3 Last Admin: 12/10/18 02:33 Dose: 650 mg Albuterol Sulfate (Ventolin 0.083% Nebulizer Soln -) 1 amp NEB Q4H PRN PRN Reason: Dyspnea Aspirin (Asa -) 81 mg PO DAILY [facility] Last Admin: 12/10/18 10:35 Dose: Not Given Atorvastatin Calcium (Lipitor -) 80 mg PO [facility] Last Admin: 12/10/18 22:18 Dose: 80 mg Calcium Acetate (Phoslo -) 667 mg PO TIDCM [facility] Last Admin: 12/10/18 17:51 Dose: 667 mg Cholecalciferol (Vitamin D3 -) 1,000 unit PO DAILY [facility] Last Admin: 12/10/18 10:35 Dose: 1,000 unit Insulin Aspart (Novolog Vial Sliding Scale -) 1 vial SQ [facility]; Protocol Last Admin: 12/11/18 06:27 Dose: Not Given Insulin Detemir (Levemir Vial) 5 units SQ [facility] Last Admin: 12/10/18 22:17 Dose: 5 units Levothyroxine Sodium (Synthroid -) 25 mcg PO DAILY@0700 [facility] Last Admin: 12/11/18 06:25 Dose: 25 mcg Melatonin (Melatonin) 3 mg PO [facility] Last Admin: 12/10/18 22:18 Dose: 3 mg Multivit/Ca Carb/B Cmplx/FA/Prenat (Nephro-Misty -) 1 tablet PO DAILY [facility] Last Admin: 12/10/18 10:35 Dose: 1 tablet Pantoprazole Sodium (Protonix -) 40 mg PO DAILY [facility] Last Admin: 12/10/18 10:35 Dose: 40 mg Senna (Senna -) 1 tab PO [facility] Last Admin: 12/10/18 22:18 Dose: 1 tab Sertraline HCl (Zoloft -) 50 mg PO [facility] Last Admin: 12/10/18 22:18 Dose: 50 mg Vitamin A/Vitamin D (Vitamin A & D Top Oint -) 1 applic TP TID [facility] Last Admin: 12/11/18 06:29 Dose: Not Given - Objective Vital Signs: Vital Signs Temperature 98.2 F 12/11/18 10:05 Pulse Rate 80 12/11/18 11:40 Respiratory Rate 18 12/11/18 11:40 Blood Pressure 151/66 12/11/18 11:40 O2 Sat by Pulse Oximetry (%) 96 12/10/18 21:00 Constitutional: Yes: Calm Eyes: Yes: Conjunctiva Clear HENT: Yes: Atraumatic Neck: Yes: Supple Cardiovascular: Yes: S1, S2 Respiratory: Yes: CTA Bilaterally Gastrointestinal: Yes: Soft Genitourinary: Yes: WNL Musculoskeletal: Yes: WNL Edema: No Wound/Incision: Yes: Open to air Neurological: Yes: Oriented Psychiatric: Yes: Oriented Labs: CBC, BMP 12/11/18 09:40 12/11/18 09:40 INR, PTT INR 1.06 (0.83-1.09) 12/09/18 12:42 Problem List - Problems (1) Cellulitis Code(s): L03.90 - CELLULITIS, UNSPECIFIED Qualifiers: Site of cellulitis: extremity Site of cellulitis of extremity: lower extremity Laterality: left Qualified Code(s): L03.116 - Cellulitis of left lower limb (2) Hematuria Code(s): R31.9 - HEMATURIA, UNSPECIFIED Qualifiers: Hematuria type: gross Qualified Code(s): R31.0 - Gross hematuria (3) Anemia Code(s): D64.9 - ANEMIA, UNSPECIFIED (4) COPD (chronic obstructive pulmonary disease) Code(s): J44.9 - CHRONIC OBSTRUCTIVE PULMONARY DISEASE, UNSPECIFIED Qualifiers: (5) ESRD (end stage renal disease) Code(s): N18.6 - END STAGE RENAL DISEASE Assessment/Plan Current Medications Generic Name Dose Route Start Last Admin Trade Name Freq PRN Reason Stop Dose Admin Acetaminophen 650 mg 12/09/18 15:52 12/10/18 02:33 Tylenol - PO 650 mg Q4H PRN Administration PAIN LEVEL 1 - 3 Albuterol Sulfate 1 amp 12/09/18 15:52 Ventolin 0.083% Nebulizer Soln - NEB Q4H PRN Dyspnea Aspirin 81 mg 12/10/18 10:00 12/10/18 10:35 Asa - PO Not Given DAILY [facility] Atorvastatin Calcium 80 mg 12/09/18 22:00 12/10/18 22:18 Lipitor - PO 80 mg HS [facility] Administration Calcium Acetate 667 mg 12/09/18 17:30 12/10/18 17:51 Phoslo - PO 667 mg TIDCM [facility] Administration Cholecalciferol 1,000 unit 12/10/18 10:00 12/10/18 10:35 Vitamin D3 - PO 1,000 unit DAILY [facility] Administration Insulin Aspart 1 vial 12/09/18 16:30 12/11/18 06:27 Novolog Vial Sliding Scale - SQ Not Given BIDAC [facility] Protocol Insulin Detemir 5 units 12/10/18 22:00 12/10/18 22:17 Levemir Vial SQ 5 units HS [facility] Administration Levothyroxine Sodium 25 mcg 12/10/18 07:00 12/11/18 06:25 Synthroid - PO 25 mcg DAILY@0700 [facility] Administration Melatonin 3 mg 12/09/18 22:00 12/10/18 22:18 Melatonin PO 3 mg HS [facility] Administration Multivit/Ca Carb/B Cmplx/FA/Prenat 1 tablet 12/10/18 10:00 12/10/18 10:35 Nephro-Misty - PO 1 tablet DAILY [facility] Administration Pantoprazole Sodium 40 mg 12/10/18 10:00 12/10/18 10:35 Protonix - PO 40 mg DAILY [facility] Administration Senna 1 tab 12/09/18 22:00 12/10/18 22:18 Senna - PO 1 tab HS [facility] Administration Sertraline HCl 50 mg 12/09/18 22:00 12/10/18 22:18 Zoloft - PO 50 mg HS [facility] Administration Vitamin A/Vitamin D 1 applic 12/09/18 22:00 12/11/18 06:29 Vitamin A & D Top Oint - TP Not Given TID [facility] Impression 1. ESRD 2. hx hemoptysis 3. DM 4. CAD 5. PVD 6. DFU 7. anemia 8. hx steal syndrome s/p DRIL procedure 9. CHF 10. pulmonary nodules 11. hematuria 12. hyperkalemia Plan - HD today - heparin on hold secondary to hematuria - hg stable, may need to start epogen if it drops - he did get aranesp 40 on last Monday - follow cultures - renal diet - volume status is stable - 2 k bath 1000 heparin bolus 500 maintenance, RUE fistula, 3 30, hectorol 1 mcg
--- NOTE | 2018-12-11 12:24 | PN ---
Progress Note (short form) - Note Progress Note: fuv left vss, tmax 99.3 +improved cellulitis, -drainage -mal odor, wbc=9.5, uric acid 5.6, Cellulitis Gout? Continue IVABX as per ID. No dressing required.
[2018-12-11 14:56] LABS: CREATININE 3.5 mg/dL (0.55-1.3)
[2018-12-11] MEDS: MELATONIN 1 MG TABLET PO SCH (21:29)
[2018-12-11] MEDS: INSULIN (LEVEMIR) 100 UNITS/ML UNITS SQ SCH (21:29)
[2018-12-11] MEDS: ATORVASTATIN CA 80 MG TABLET (FP) PO SCH (21:30)
[2018-12-11] MEDS: SERTRALINE HCL 50 MG TABLET (FP) PO SCH (21:30)
[2018-12-11] MEDS: SENNOSIDES 8.6MG TABLET (FP) PO SCH (21:30)
--- NOTE | 2018-12-11 21:51 | PN ---
Progress Note, Physician History of Present Illness: AWAKE, ALERT NO C/O FOOT PAIN DENIES RECURRENT HEMATURIA NO C/O FEVER/ CHILLS - Current Medication List Current Medications: Active Medications Acetaminophen (Tylenol -) 650 mg PO Q4H PRN PRN Reason: PAIN LEVEL 1 - 3 Last Admin: 12/10/18 02:33 Dose: 650 mg Albuterol Sulfate (Ventolin 0.083% Nebulizer Soln -) 1 amp NEB Q4H PRN PRN Reason: Dyspnea Aspirin (Asa -) 81 mg PO DAILY [facility] Last Admin: 12/10/18 10:35 Dose: Not Given Atorvastatin Calcium (Lipitor -) 80 mg PO [facility] Last Admin: 12/11/18 21:30 Dose: 80 mg Calcium Acetate (Phoslo -) 667 mg PO TIDCM [facility] Last Admin: 12/11/18 17:21 Dose: 667 mg Cholecalciferol (Vitamin D3 -) 1,000 unit PO DAILY [facility] Last Admin: 12/11/18 14:06 Dose: 1,000 unit Insulin Aspart (Novolog Vial Sliding Scale -) 1 vial SQ BIDAC [facility]; Protocol Last Admin: 12/11/18 17:21 Dose: 4 units Insulin Detemir (Levemir Vial) 5 units SQ [facility] Last Admin: 12/11/18 21:29 Dose: 5 units Levothyroxine Sodium (Synthroid -) 25 mcg PO DAILY@0700 [facility] Last Admin: 12/11/18 06:25 Dose: 25 mcg Melatonin (Melatonin) 3 mg PO [facility] Last Admin: 12/11/18 21:29 Dose: 3 mg Multivit/Ca Carb/B Cmplx/FA/Prenat (Nephro-Misty -) 1 tablet PO DAILY [facility] Last Admin: 12/11/18 14:06 Dose: 1 tablet Pantoprazole Sodium (Protonix -) 40 mg PO DAILY [facility] Last Admin: 12/11/18 14:06 Dose: 40 mg Senna (Senna -) 1 tab PO [facility] Last Admin: 12/11/18 21:30 Dose: 1 tab Sertraline HCl (Zoloft -) 50 mg PO [facility] Last Admin: 12/11/18 21:30 Dose: 50 mg Vitamin A/Vitamin D (Vitamin A & D Top Oint -) 1 applic TP TID [facility] Last Admin: 12/11/18 21:30 Dose: Not Given - Objective Vital Signs: Vital Signs Temperature 98.8 F 12/11/18 18:00 Pulse Rate 83 12/11/18 18:00 Respiratory Rate 20 12/11/18 18:00 Blood Pressure 140/59 L 12/11/18 18:00 O2 Sat by Pulse Oximetry (%) 96 12/11/18 09:00 Constitutional: Yes: No Distress Eyes: Yes: Conjunctiva Clear Cardiovascular: Yes: Regular Rate and Rhythm, S1, S2 Respiratory: Yes: CTA Bilaterally Gastrointestinal: Yes: Normal Bowel Sounds, Soft Extremities: Yes: Other (L FOOT WITH ERYTHEMA, DORSUM) Labs: CBC, BMP 12/11/18 09:40 12/11/18 13:40 INR, PTT INR 1.06 (0.83-1.09) 12/09/18 12:42 Assessment/Plan CELLULITIS, FOOT HEMATURIA ESRD AWAIT C/S CONTINUE ZOSYN
[2018-12-12] MEDS ORDERED: INSULIN (NOVOLOG) ASPART 100 UNITS/ML 10ML VIAL ONE ×2 (06:08→06:47)
[2018-12-12] MEDS: LEVOTHYROXINE NA 25 MCG TABLET (FP) PO SCH (06:13)
[2018-12-12] MEDS: INSULIN SLIDING SCALE (NOVOLOG) 1 VIAL SQ SCH ×2 (06:14→17:48)
[2018-12-12] MEDS: VITAMINS A AND D TOPICAL OINTMENT 60 GM TUBE TP SCH ×3 (06:15→21:18)
[2018-12-12] MEDS ORDERED: INSULIN (LEVEMIR) 100 UNITS/ML UNITS SQ ONE ×2 (06:47→21:04)
[2018-12-12] MEDS ORDERED: PT OWN MED DRAWER 7, Y5N ONE ×3 (06:47→21:05)
[2018-12-12] MEDS: CALCIUM ACETATE 667 MG CAPSULE (FP) PO SCH ×3 (08:15→17:46)
[2018-12-12] MEDS ORDERED: VANCOMYCIN 1 GRAM (PRE-DOCKED) 1,000 MG/250 ML BAG IVPB ONE (09:14)
[2018-12-12] MEDS ORDERED: DEXTROSE 5%-WATER - 50 ML IVPB ONE (09:26)
[2018-12-12] MEDS ORDERED: PIPERACILLIN/TAZOBACTAM 2.25 GM VIAL IVPB ONE (09:26)
[2018-12-12] MEDS: PANTOPRAZOLE 40 MG TABLET (FP) PO SCH (09:35)
[2018-12-12] MEDS: VITAMIN B COMP W-C 1 EA TABLET PO SCH (09:35)
[2018-12-12] MEDS: CHOLECALCIFEROL (VITAMIN D3) 1,000 UNIT TABLET (FP) PO SCH (09:35)
[2018-12-12] MEDS: PIPERACILLIN/TAZOB 2.25 GM 2.25 GM in DEXTROSE 5%-WATER - 50 ML IVPB SCH ×2 (09:36→18:59)
--- NOTE | 2018-12-12 12:06 | PN ---
Progress Note (short form) - Note Progress Note: Pt examined pain in left foot decreased redness decreased no fever or chills feels well urine is clearer per pt Vital Signs - 24 hr 12/11/18 12/11/18 12/11/18 12:10 12:40 13:10 Temperature Pulse Rate 80 80 80 Respiratory 18 18 18 Rate Blood Pressure 152/90 148/69 157/71 O2 Sat by Pulse Oximetry (%) 12/11/18 12/11/18 12/11/18 13:40 13:45 14:58 Temperature 99.3 F Pulse Rate 82 80 79 Respiratory 18 18 20 Rate Blood Pressure 150/62 155/61 140/56 L O2 Sat by Pulse Oximetry (%) 12/11/18 12/11/18 12/11/18 18:00 21:00 22:00 Temperature 98.8 F 99.1 F Pulse Rate 83 79 Respiratory 20 18 18 Rate Blood Pressure 140/59 L 148/58 L O2 Sat by Pulse 96 Oximetry (%) 12/12/18 12/12/18 06:00 09:12 Temperature 98.8 F 98.7 F Pulse Rate 80 87 Respiratory 18 20 Rate Blood Pressure 150/67 143/66 O2 Sat by Pulse Oximetry (%) Current Medications Generic Name Dose Route Start Last Admin Trade Name Freq PRN Reason Stop Dose Admin Acetaminophen 650 mg 12/09/18 15:52 12/10/18 02:33 Tylenol - PO 650 mg Q4H PRN Administration PAIN LEVEL 1 - 3 Albuterol Sulfate 1 amp 12/09/18 15:52 Ventolin 0.083% Nebulizer Soln - NEB Q4H PRN Dyspnea Aspirin 81 mg 12/10/18 10:00 12/10/18 10:35 Asa - PO Not Given DAILY [facility] Atorvastatin Calcium 80 mg 12/09/18 22:00 12/11/18 21:30 Lipitor - PO 80 mg HS [facility] Administration Calcium Acetate 667 mg 12/09/18 17:30 12/12/18 08:15 Phoslo - PO 667 mg TIDCM [facility] Administration Cholecalciferol 1,000 unit 12/10/18 10:00 12/12/18 09:35 Vitamin D3 - PO 1,000 unit DAILY [facility] Administration Piperacillin Sod/Tazobactam 50 mls @ 100 mls/hr 12/12/18 10:00 12/12/18 09:36 Sod 2.25 gm/ Dextrose IVPB 100 mls/hr Q8H-IV [facility] Administration Protocol Insulin Aspart 1 vial 12/09/18 16:30 12/12/18 06:14 Novolog Vial Sliding Scale - SQ Not Given BIDAC [facility] Protocol Insulin Detemir 5 units 12/10/18 22:00 12/11/18 21:29 Levemir Vial SQ 5 units HS [facility] Administration Levothyroxine Sodium 25 mcg 12/10/18 07:00 12/12/18 06:13 Synthroid - PO 25 mcg DAILY@0700 [facility] Administration Melatonin 3 mg 12/09/18 22:00 12/11/18 21:29 Melatonin PO 3 mg HS [facility] Administration Multivit/Ca Carb/B Cmplx/FA/Prenat 1 tablet 12/10/18 10:00 12/12/18 09:35 Nephro-Misty - PO 1 tablet DAILY [facility] Administration Pantoprazole Sodium 40 mg 12/10/18 10:00 12/12/18 09:35 Protonix - PO 40 mg DAILY [facility] Administration Senna 1 tab 12/09/18 22:00 12/11/18 21:30 Senna - PO 1 tab HS [facility] Administration Sertraline HCl 50 mg 12/09/18 22:00 12/11/18 21:30 Zoloft - PO 50 mg HS [facility] Administration Vitamin A/Vitamin D 1 applic 12/09/18 22:00 12/12/18 06:15 Vitamin A & D Top Oint - TP Not Given TID [facility] Laboratory Results - last 24 hr 12/11/18 12/11/18 12/11/18 13:40 17:11 21:28 BUN 22 H Creatinine 3.5 H POC Glucometer 221 138 12/12/18 12/12/18 06:13 11:22 BUN Creatinine POC Glucometer 128 313 Microbiology 12/09/18 12:00 Blood Culture - Preliminary Blood - Peripheral Venous NO GROWTH OBTAINED AFTER 48 HOURS, INCUBATION TO CONTINUE FOR 3 DAYS. 12/09/18 12:30 Blood Culture - Preliminary Blood - Peripheral Venous NO GROWTH OBTAINED AFTER 48 HOURS, INCUBATION TO CONTINUE FOR 3 DAYS. 12/09/18 21:22 Urine Culture - Final Urine - Urine Clean Catch NO GROWTH OBTAINED no pallor S1 S2 RRR Lungs clear Abd- soft, NT no edema Left foot-- toe amputation site is healed, clean, erythema on distal potion- decreased tender+, warm erythema improved PLAN IV antibiotics per ID HD per renal Urology eval noted-- currently urine is clearer On ASA urine cultures negative will need cystoscopy as outpt Plavix dc per Cardiology HCT stable left a message for nialexandro Rico to call back Problem List - Problems (1) Cellulitis Code(s): L03.90 - CELLULITIS, UNSPECIFIED Qualifiers: Site of cellulitis: extremity Site of cellulitis of extremity: lower extremity Laterality: left Qualified Code(s): L03.116 - Cellulitis of left lower limb (2) Hematuria Code(s): R31.9 - HEMATURIA, UNSPECIFIED Qualifiers: Hematuria type: gross Qualified Code(s): R31.0 - Gross hematuria (3) UTI (urinary tract infection) Code(s): N39.0 - URINARY TRACT INFECTION, SITE NOT SPECIFIED (4) ASHD (arteriosclerotic heart disease) Code(s): I25.10 - ATHSCL HEART DISEASE OF [place] CORONARY ARTERY W/O ANG PCTRS (5) CHF (congestive heart failure), NYHA class IV Code(s): I50.9 - HEART FAILURE, UNSPECIFIED Qualifiers: Congestive heart failure type: systolic Congestive heart failure chronicity : chronic Qualified Code(s): I50.22 - Chronic systolic (congestive) heart failure (6) Diabetes Code(s): E11.9 - TYPE 2 DIABETES MELLITUS WITHOUT COMPLICATIONS Qualifiers: Diabetes mellitus type: type 2 Diabetes mellitus long-term insulin use: without buttermaker continuous churn use Diabetes mellitus complication status: with neurologic complications (7) ESRD (end stage renal disease) Code(s): N18.6 - END STAGE RENAL DISEASE
--- NOTE | 2018-12-12 12:11 | PN ---
Progress Note, Physician History of Present Illness: AWAKE, ALERT NO C/O FOOT PAIN DENIES RECURRENT HEMATURIA NO C/O FEVER/ CHILLS - Current Medication List Current Medications: Active Medications Acetaminophen (Tylenol -) 650 mg PO Q4H PRN PRN Reason: PAIN LEVEL 1 - 3 Last Admin: 12/10/18 02:33 Dose: 650 mg Albuterol Sulfate (Ventolin 0.083% Nebulizer Soln -) 1 amp NEB Q4H PRN PRN Reason: Dyspnea Aspirin (Asa -) 81 mg PO DAILY [facility] Last Admin: 12/10/18 10:35 Dose: Not Given Atorvastatin Calcium (Lipitor -) 80 mg PO [facility] Last Admin: 12/11/18 21:30 Dose: 80 mg Calcium Acetate (Phoslo -) 667 mg PO TIDCM [facility] Last Admin: 12/12/18 08:15 Dose: 667 mg Cholecalciferol (Vitamin D3 -) 1,000 unit PO DAILY [facility] Last Admin: 12/12/18 09:35 Dose: 1,000 unit Piperacillin Sod/Tazobactam (Sod 2.25 gm/ Dextrose) 50 mls @ 100 mls/hr IVPB Q8H-IV [facility]; Protocol Last Admin: 12/12/18 09:36 Dose: 100 mls/hr Insulin Aspart (Novolog Vial Sliding Scale -) 1 vial SQ BIDAC [facility]; Protocol Last Admin: 12/12/18 06:14 Dose: Not Given Insulin Detemir (Levemir Vial) 5 units SQ [facility] Last Admin: 12/11/18 21:29 Dose: 5 units Levothyroxine Sodium (Synthroid -) 25 mcg PO DAILY@0700 [facility] Last Admin: 12/12/18 06:13 Dose: 25 mcg Melatonin (Melatonin) 3 mg PO [facility] Last Admin: 12/11/18 21:29 Dose: 3 mg Multivit/Ca Carb/B Cmplx/FA/Prenat (Nephro-Misty -) 1 tablet PO DAILY [facility] Last Admin: 12/12/18 09:35 Dose: 1 tablet Pantoprazole Sodium (Protonix -) 40 mg PO DAILY [facility] Last Admin: 12/12/18 09:35 Dose: 40 mg Senna (Senna -) 1 tab PO [facility] Last Admin: 12/11/18 21:30 Dose: 1 tab Sertraline HCl (Zoloft -) 50 mg PO HS [facility] Last Admin: 12/11/18 21:30 Dose: 50 mg Vitamin A/Vitamin D (Vitamin A & D Top Oint -) 1 applic TP TID [facility] Last Admin: 12/12/18 06:15 Dose: Not Given - Objective Vital Signs: Vital Signs Temperature 98.7 F 12/12/18 09:12 Pulse Rate 87 12/12/18 09:12 Respiratory Rate 20 12/12/18 09:12 Blood Pressure 143/66 12/12/18 09:12 O2 Sat by Pulse Oximetry (%) 96 12/11/18 21:00 Constitutional: Yes: No Distress Eyes: Yes: Conjunctiva Clear Cardiovascular: Yes: Regular Rate and Rhythm, S1, S2 Respiratory: Yes: CTA Bilaterally Gastrointestinal: Yes: Normal Bowel Sounds, Soft. No: Tenderness Extremities: Yes: Other (decreased erythema, foot) Labs: CBC, BMP 12/11/18 09:40 12/11/18 13:40 INR, PTT INR 1.06 (0.83-1.09) 12/09/18 12:42 Assessment/Plan CELLULITIS, FOOT IMPROVED HEMATURIA ESRD REDOSE VANCOMYCIN CONTINUE ZOSYN
[2018-12-12 12:25] LABS: HBSAG SCREEN Negative (Negative); HEP A AB, IGM Negative (Negative); HEP B CORE AB, TOT Negative (Negative)
--- NOTE | 2018-12-12 13:15 | PN ---
Progress Note, Physician History of Present Illness: Pt seen and examined at bedside. He is awake and alert. He denies shortness of breath. - Current Medication List Current Medications: Active Medications Acetaminophen (Tylenol -) 650 mg PO Q4H PRN PRN Reason: PAIN LEVEL 1 - 3 Last Admin: 12/10/18 02:33 Dose: 650 mg Albuterol Sulfate (Ventolin 0.083% Nebulizer Soln -) 1 amp NEB Q4H PRN PRN Reason: Dyspnea Aspirin (Asa -) 81 mg PO DAILY [facility] Last Admin: 12/10/18 10:35 Dose: Not Given Atorvastatin Calcium (Lipitor -) 80 mg PO HS [facility] Last Admin: 12/11/18 21:30 Dose: 80 mg Calcium Acetate (Phoslo -) 667 mg PO TIDCM [facility] Last Admin: 12/12/18 12:14 Dose: 667 mg Cholecalciferol (Vitamin D3 -) 1,000 unit PO DAILY [facility] Last Admin: 12/12/18 09:35 Dose: 1,000 unit Piperacillin Sod/Tazobactam (Sod 2.25 gm/ Dextrose) 50 mls @ 100 mls/hr IVPB Q8H-IV [facility]; Protocol Last Admin: 12/12/18 09:36 Dose: 100 mls/hr Insulin Aspart (Novolog Vial Sliding Scale -) 1 vial SQ BIDAC [facility]; Protocol Last Admin: 12/12/18 06:14 Dose: Not Given Insulin Detemir (Levemir Vial) 5 units SQ [facility] Last Admin: 12/11/18 21:29 Dose: 5 units Levothyroxine Sodium (Synthroid -) 25 mcg PO DAILY@0700 [facility] Last Admin: 12/12/18 06:13 Dose: 25 mcg Melatonin (Melatonin) 3 mg PO [facility] Last Admin: 12/11/18 21:29 Dose: 3 mg Multivit/Ca Carb/B Cmplx/FA/Prenat (Nephro-Misty -) 1 tablet PO DAILY [facility] Last Admin: 12/12/18 09:35 Dose: 1 tablet Pantoprazole Sodium (Protonix -) 40 mg PO DAILY [facility] Last Admin: 12/12/18 09:35 Dose: 40 mg Senna (Senna -) 1 tab PO [facility] Last Admin: 12/11/18 21:30 Dose: 1 tab Sertraline HCl (Zoloft -) 50 mg PO HS [facility] Last Admin: 12/11/18 21:30 Dose: 50 mg Vitamin A/Vitamin D (Vitamin A & D Top Oint -) 1 applic TP TID [facility] Last Admin: 12/12/18 06:15 Dose: Not Given - Objective Vital Signs: Vital Signs Temperature 98.7 F 12/12/18 09:12 Pulse Rate 87 12/12/18 09:12 Respiratory Rate 20 12/12/18 09:12 Blood Pressure 143/66 12/12/18 09:12 O2 Sat by Pulse Oximetry (%) 96 12/11/18 21:00 Constitutional: Yes: Calm Eyes: Yes: Conjunctiva Clear HENT: Yes: Atraumatic Neck: Yes: Supple Cardiovascular: Yes: S1, S2 Respiratory: Yes: CTA Bilaterally Gastrointestinal: Yes: Soft Genitourinary: Yes: WNL Musculoskeletal: Yes: WNL Edema: No Wound/Incision: Yes: Open to air Neurological: Yes: Oriented Psychiatric: Yes: Oriented Labs: CBC, BMP 12/11/18 09:40 12/11/18 13:40 INR, PTT INR 1.06 (0.83-1.09) 12/09/18 12:42 Problem List - Problems (1) Cellulitis Code(s): L03.90 - CELLULITIS, UNSPECIFIED Qualifiers: Site of cellulitis: extremity Site of cellulitis of extremity: lower extremity Laterality: left Qualified Code(s): L03.116 - Cellulitis of left lower limb (2) Hematuria Code(s): R31.9 - HEMATURIA, UNSPECIFIED Qualifiers: Hematuria type: gross Qualified Code(s): R31.0 - Gross hematuria (3) Anemia Code(s): D64.9 - ANEMIA, UNSPECIFIED (4) COPD (chronic obstructive pulmonary disease) Code(s): J44.9 - CHRONIC OBSTRUCTIVE PULMONARY DISEASE, UNSPECIFIED Qualifiers: (5) ESRD (end stage renal disease) Code(s): N18.6 - END STAGE RENAL DISEASE Assessment/Plan Current Medications Generic Name Dose Route Start Last Admin Trade Name Freq PRN Reason Stop Dose Admin Acetaminophen 650 mg 12/09/18 15:52 12/10/18 02:33 Tylenol - PO 650 mg Q4H PRN Administration PAIN LEVEL 1 - 3 Albuterol Sulfate 1 amp 12/09/18 15:52 Ventolin 0.083% Nebulizer Soln - NEB Q4H PRN Dyspnea Aspirin 81 mg 12/10/18 10:00 12/10/18 10:35 Asa - PO Not Given DAILY [facility] Atorvastatin Calcium 80 mg 12/09/18 22:00 12/11/18 21:30 Lipitor - PO 80 mg HS [facility] Administration Calcium Acetate 667 mg 12/09/18 17:30 12/12/18 12:14 Phoslo - PO 667 mg TIDCM [facility] Administration Cholecalciferol 1,000 unit 12/10/18 10:00 12/12/18 09:35 Vitamin D3 - PO 1,000 unit DAILY [facility] Administration Piperacillin Sod/Tazobactam 50 mls @ 100 mls/hr 12/12/18 10:00 12/12/18 09:36 Sod 2.25 gm/ Dextrose IVPB 100 mls/hr Q8H-IV [facility] Administration Protocol Insulin Aspart 1 vial 12/09/18 16:30 12/12/18 06:14 Novolog Vial Sliding Scale - SQ Not Given BIDAC [facility] Protocol Insulin Detemir 5 units 12/10/18 22:00 12/11/18 21:29 Levemir Vial SQ 5 units HS [facility] Administration Levothyroxine Sodium 25 mcg 12/10/18 07:00 12/12/18 06:13 Synthroid - PO 25 mcg DAILY@0700 [facility] Administration Melatonin 3 mg 12/09/18 22:00 12/11/18 21:29 Melatonin PO 3 mg HS [facility] Administration Multivit/Ca Carb/B Cmplx/FA/Prenat 1 tablet 12/10/18 10:00 12/12/18 09:35 Nephro-Misty - PO 1 tablet DAILY [facility] Administration Pantoprazole Sodium 40 mg 12/10/18 10:00 12/12/18 09:35 Protonix - PO 40 mg DAILY [facility] Administration Senna 1 tab 12/09/18 22:00 12/11/18 21:30 Senna - PO 1 tab HS [facility] Administration Sertraline HCl 50 mg 12/09/18 22:00 12/11/18 21:30 Zoloft - PO 50 mg HS [facility] Administration Vitamin A/Vitamin D 1 applic 12/09/18 22:00 12/12/18 06:15 Vitamin A & D Top Oint - TP Not Given TID [facility] Impression 1. ESRD 2. hx hemoptysis 3. DM 4. CAD 5. PVD 6. DFU 7. anemia 8. hx steal syndrome s/p DRIL procedure 9. CHF 10. pulmonary nodules 11. hematuria 12. hyperkalemia Plan - HD tomorrow - will hold heparin - repeat labs in am - if potassium elevated will need to increase HD time and discuss diet - he did get aranesp 40 on last Monday - renal diet - volume status is stable - 2 k bath 1000 heparin bolus 500 maintenance, RUE fistula, 3 30, hectorol 1 mcg
[2018-12-12] MEDS ORDERED: SODIUM CHLORIDE 250 ML IV PRN (13:20)
--- NOTE | 2018-12-12 16:39 | PN ---
Progress Note, Physician History of Present Illness: Denies recurrent hematuria and left foot erythema has resolved. - Current Medication List Current Medications: Active Medications Acetaminophen (Tylenol -) 650 mg PO Q4H PRN PRN Reason: PAIN LEVEL 1 - 3 Last Admin: 12/10/18 02:33 Dose: 650 mg Albuterol Sulfate (Ventolin 0.083% Nebulizer Soln -) 1 amp NEB Q4H PRN PRN Reason: Dyspnea Aspirin (Asa -) 81 mg PO DAILY [facility] Last Admin: 12/10/18 10:35 Dose: Not Given Atorvastatin Calcium (Lipitor -) 80 mg PO HS [facility] Last Admin: 12/11/18 21:30 Dose: 80 mg Calcium Acetate (Phoslo -) 667 mg PO TIDCM [facility] Last Admin: 12/12/18 12:14 Dose: 667 mg Cholecalciferol (Vitamin D3 -) 1,000 unit PO DAILY [facility] Last Admin: 12/12/18 09:35 Dose: 1,000 unit Piperacillin Sod/Tazobactam (Sod 2.25 gm/ Dextrose) 50 mls @ 100 mls/hr IVPB Q8H-IV [facility]; Protocol Last Admin: 12/12/18 09:36 Dose: 100 mls/hr Sodium Chloride (Normal Saline -) 250 mls @ 3,000 mls/hr IV PRN PRN PRN Reason: Hypotension during Dialysis Stop: 12/13/18 13:15 Insulin Aspart (Novolog Vial Sliding Scale -) 1 vial SQ BIDAC [facility]; Protocol Last Admin: 12/12/18 06:14 Dose: Not Given Insulin Detemir (Levemir Vial) 5 units SQ [facility] Last Admin: 12/11/18 21:29 Dose: 5 units Levothyroxine Sodium (Synthroid -) 25 mcg PO DAILY@0700 [facility] Last Admin: 12/12/18 06:13 Dose: 25 mcg Melatonin (Melatonin) 3 mg PO [facility] Last Admin: 12/11/18 21:29 Dose: 3 mg Multivit/Ca Carb/B Cmplx/FA/Prenat (Nephro-Misty -) 1 tablet PO DAILY [facility] Last Admin: 12/12/18 09:35 Dose: 1 tablet Pantoprazole Sodium (Protonix -) 40 mg PO DAILY [facility] Last Admin: 12/12/18 09:35 Dose: 40 mg Paricalcitol (Zemplar -) 2 mcg IVPUSH ONCE ONE Stop: 12/13/18 13:16 Senna (Senna -) 1 tab PO [facility] Last Admin: 12/11/18 21:30 Dose: 1 tab Sertraline HCl (Zoloft -) 50 mg PO [facility] Last Admin: 12/11/18 21:30 Dose: 50 mg Vitamin A/Vitamin D (Vitamin A & D Top Oint -) 1 applic TP TID [facility] Last Admin: 12/12/18 06:15 Dose: Not Given - Objective Vital Signs: Vital Signs Temperature 100.0 F H 12/12/18 14:50 Pulse Rate 78 12/12/18 14:50 Respiratory Rate 22 H 12/12/18 14:50 Blood Pressure 141/56 L 12/12/18 14:50 O2 Sat by Pulse Oximetry (%) 96 12/11/18 21:00 Constitutional: Yes: No Distress, Calm, Thin Neck: Yes: Supple Cardiovascular: Yes: Regular Rate and Rhythm Respiratory: Yes: Regular, Diminished Gastrointestinal: Yes: Normal Bowel Sounds, Soft Extremities: Yes: Amputation (Left toe amputation) Edema: No Labs: CBC, BMP 12/11/18 09:40 12/11/18 13:40 INR, PTT INR 1.06 (0.83-1.09) 12/09/18 12:42 Problem List - Problems (1) Hematuria Code(s): R31.9 - HEMATURIA, UNSPECIFIED Qualifiers: Hematuria type: gross Qualified Code(s): R31.0 - Gross hematuria (2) ASHD (arteriosclerotic heart disease) Code(s): I25.10 - ATHSCL HEART DISEASE OF [place] CORONARY ARTERY W/O ANG PCTRS (3) Chronic HFrEF (heart failure with reduced ejection fraction) Code(s): I50.22 - CHRONIC SYSTOLIC (CONGESTIVE) HEART FAILURE (4) Diabetes Code(s): E11.9 - TYPE 2 DIABETES MELLITUS WITHOUT COMPLICATIONS Qualifiers: Diabetes mellitus type: type 2 Diabetes mellitus fdc insulin use: without administrative intern use Diabetes mellitus complication status: with neurologic complications (5) ESRD (end stage renal disease) on dialysis Code(s): N18.6 - END STAGE RENAL DISEASE; Z99.2 - DEPENDENCE ON RENAL DIALYSIS (6) Hypothyroidism Code(s): E03.9 - HYPOTHYROIDISM, UNSPECIFIED Qualifiers: Hypothyroidism type: unspecified Qualified Code(s): E03.9 - Hypothyroidism , unspecified (7) ICD (implantable cardioverter-defibrillator) in place Code(s): Z95.810 - PRESENCE OF AUTOMATIC (IMPLANTABLE) CARDIAC DEFIBRILLATOR (8) Ischemic dilated cardiomyopathy Code(s): I25.5 - ISCHEMIC CARDIOMYOPATHY; I42.0 - DILATED CARDIOMYOPATHY (9) PVD (peripheral vascular disease) Code(s): I73.9 - PERIPHERAL VASCULAR DISEASE, UNSPECIFIED (10) S/P CABG (coronary artery bypass graft) Code(s): Z95.1 - PRESENCE OF AORTOCORONARY BYPASS GRAFT (11) S/P peripheral artery angioplasty with stent placement Code(s): Z95.820 - PERIPHERAL VASCULAR ANGIOPLASTY STATUS W IMPLANTS AND GRAFTS (12) Steal syndrome of dialysis vascular access Code(s): T82.898A - OTH COMPLICATION OF VASCULAR PROSTH DEV/GRFT, INIT Qualifiers: Encounter type: sequela Qualified Code(s): T82.898S - Other specified complication of vascular prosthetic devices, implants and grafts, sequela (13) Status post amputation of left great toe Code(s): Z89.412 - ACQUIRED ABSENCE OF LEFT GREAT TOE Assessment/Plan 1. Hematuria resolved 2. PAD s/p SFA stent s/p left toe amputation 3. Chronic Systolic Heart Failure referable to ischemic dilated cardiomyopathy/ severe LV systolic dysfunction 4. CAD post remote [place] post CABG angina pectoris 5. Post prophylactic ICD implant (Medtronic's device) 6. HTN/HCVD 7. IDDM 8. Hypercholesterolemia 9. ESRD on HD, right AVG with steal and hyperkalemia s/p right arm angiogram and DRIL procedure 10. Anemia of CKD 11. Hypothyroidism 12. History of GI bleed PLAN: 1. HD per nephrology and empiric antibiotic per C&S 2. Urology recommended outpatient cystoscopy 3. Continue Toprol XL 150 qd, and Lipitor 80 qhs, resume Entresto once hyperkalemia resolved 4. Continue ASA 81 qd 5. DVT and GI prophylaxis 6. Wound care
[2018-12-12] MEDS: INSULIN (LEVEMIR) 100 UNITS/ML UNITS SQ SCH (21:17)
[2018-12-12] MEDS: MELATONIN 1 MG TABLET PO SCH (21:17)
[2018-12-12] MEDS: ATORVASTATIN CA 80 MG TABLET (FP) PO SCH (21:17)
[2018-12-12] MEDS: SERTRALINE HCL 50 MG TABLET (FP) PO SCH (21:17)
[2018-12-12] MEDS: SENNOSIDES 8.6MG TABLET (FP) PO SCH (21:17)
[2018-12-13] MEDS ORDERED: DEXTROSE 5%-WATER - 50 ML IVPB ONE ×2 (01:48→17:28)
[2018-12-13] MEDS ORDERED: PIPERACILLIN/TAZOBACTAM 2.25 GM VIAL IVPB ONE ×2 (01:48→17:28)
[2018-12-13] MEDS: PIPERACILLIN/TAZOB 2.25 GM 2.25 GM in DEXTROSE 5%-WATER - 50 ML IVPB SCH ×3 (02:13→17:48)
[2018-12-13] MEDS: LEVOTHYROXINE NA 25 MCG TABLET (FP) PO SCH (06:18)
[2018-12-13] MEDS: VITAMINS A AND D TOPICAL OINTMENT 60 GM TUBE TP SCH ×3 (06:19→22:16)
[2018-12-13] MEDS: INSULIN SLIDING SCALE (NOVOLOG) 1 VIAL SQ SCH ×2 (06:19→17:46)
--- NOTE | 2018-12-13 07:55 | HOSP ---
Subjective - Review of Symptoms Pulmonary: Yes: Dyspnea Musculoskeletal: Yes: No Symptoms Physical Examination Vital Signs: Vital Signs Temperature 98.8 F 12/13/18 07:20 Pulse Rate 82 12/13/18 07:20 Respiratory Rate 24 H 12/13/18 07:20 Blood Pressure 145/77 12/13/18 07:20 O2 Sat by Pulse Oximetry (%) 96 12/12/18 21:00 Constitutional: Yes: Well Nourished Eyes: Yes: WNL HENT: Yes: WNL Neck: Yes: WNL Cardiovascular: Yes: Regular Rate and Rhythm Respiratory: Yes: Accessory Muscle Use, Orthopnea, Rales, Tachypnea Gastrointestinal: Yes: Normal Bowel Sounds Labs: CBC, BMP 12/11/18 09:40 12/11/18 13:40 Hospitalist 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 Per RN verbal report patient c/o of shortness of breath that began this morning. He desats on room air at 89% and 2 liters was applied to maintain his sats above 90%. On exam, patient is laying in bed, in no acute distress, vitals 145/77, 94% on 2 liters of oxygen, heart rate in the 80s. Tells me that he started to feel short of breath hours ago but did not report it to the RN as he thought it was because he drank more water than he should have and now feels as though his breathing is getting worse and oxygen was applied to ease the work of breathing. He denies any chest pain, denies any jaw or arm pain. exam: Neuro: awake and and alert, no facial symmetry. speech clear lungs: bilateral rales left > right. no wheezing Abdomen: soft, non distended upper and lower ext. no edema plan: chest xray now troponin x 1 now order 2 liters of nc prn patient is for dialysis today Discussed POC with primary RN.
--- NOTE | 2018-12-13 09:48 | PN ---
Progress Note, Physician Chief Complaint: Events noted Not in distress History of Present Illness: Patient was seen and examined. Awake and alert. Chart was reviewed Denies chest pain or palpitations Less SOB Hematuria resolving - Current Medication List Current Medications: Active Medications Acetaminophen (Tylenol -) 650 mg PO Q4H PRN PRN Reason: PAIN LEVEL 1 - 3 Last Admin: 12/10/18 02:33 Dose: 650 mg Albuterol Sulfate (Ventolin 0.083% Nebulizer Soln -) 1 amp NEB Q4H PRN PRN Reason: Dyspnea Aspirin (Asa -) 81 mg PO DAILY [facility] Last Admin: 12/10/18 10:35 Dose: Not Given Atorvastatin Calcium (Lipitor -) 80 mg PO HS [facility] Last Admin: 12/12/18 21:17 Dose: 80 mg Calcium Acetate (Phoslo -) 667 mg PO TIDCM [facility] Last Admin: 12/12/18 17:46 Dose: 667 mg Cholecalciferol (Vitamin D3 -) 1,000 unit PO DAILY [facility] Last Admin: 12/12/18 09:35 Dose: 1,000 unit Piperacillin Sod/Tazobactam (Sod 2.25 gm/ Dextrose) 50 mls @ 100 mls/hr IVPB Q8H-IV [facility]; Protocol Last Admin: 12/13/18 02:13 Dose: 100 mls/hr Sodium Chloride (Normal Saline -) 250 mls @ 3,000 mls/hr IV PRN PRN PRN Reason: Hypotension during Dialysis Stop: 12/13/18 13:15 Insulin Aspart (Novolog Vial Sliding Scale -) 1 vial SQ BIDAC [facility]; Protocol Last Admin: 12/13/18 06:19 Dose: Not Given Insulin Detemir (Levemir Vial) 5 units SQ [facility] Last Admin: 12/12/18 21:17 Dose: 5 units Levothyroxine Sodium (Synthroid -) 25 mcg PO DAILY@0700 [facility] Last Admin: 12/13/18 06:18 Dose: 25 mcg Melatonin (Melatonin) 3 mg PO HS [facility] Last Admin: 12/12/18 21:17 Dose: 3 mg Multivit/Ca Carb/B Cmplx/FA/Prenat (Nephro-Misty -) 1 tablet PO DAILY [facility] Last Admin: 12/12/18 09:35 Dose: 1 tablet Pantoprazole Sodium (Protonix -) 40 mg PO DAILY [facility] Last Admin: 12/12/18 09:35 Dose: 40 mg Paricalcitol (Zemplar -) 2 mcg IVPUSH ONCE ONE Stop: 12/13/18 13:16 Senna (Senna -) 1 tab PO [facility] Last Admin: 12/12/18 21:17 Dose: 1 tab Sertraline HCl (Zoloft -) 50 mg PO [facility] Last Admin: 12/12/18 21:17 Dose: 50 mg Vitamin A/Vitamin D (Vitamin A & D Top Oint -) 1 applic TP TID [facility] Last Admin: 12/13/18 06:19 Dose: Not Given - Objective Vital Signs: Vital Signs Temperature 98 F 12/13/18 08:24 Pulse Rate 82 12/13/18 08:24 Respiratory Rate 24 H 12/13/18 08:24 Blood Pressure 152/69 12/13/18 08:24 O2 Sat by Pulse Oximetry (%) 96 12/12/18 21:00 Eyes: Yes: PERRL HENT: Yes: Atraumatic Neck: Yes: Supple Cardiovascular: Yes: Regular Rate and Rhythm, S1, S2 Respiratory: Yes: Diminished Gastrointestinal: Yes: Normal Bowel Sounds, Soft. No: Tenderness Extremities: Yes: Amputation (left toe) Edema: No Labs: CBC, BMP 12/11/18 09:40 12/11/18 13:40 Problem List - Problems (1) Cellulitis Code(s): L03.90 - CELLULITIS, UNSPECIFIED Qualifiers: Site of cellulitis: extremity Site of cellulitis of extremity: lower extremity Laterality: left Qualified Code(s): L03.116 - Cellulitis of left lower limb (2) Hematuria Code(s): R31.9 - HEMATURIA, UNSPECIFIED Qualifiers: Hematuria type: gross Qualified Code(s): R31.0 - Gross hematuria (3) UTI (urinary tract infection) Code(s): N39.0 - URINARY TRACT INFECTION, SITE NOT SPECIFIED (4) ASHD (arteriosclerotic heart disease) Code(s): I25.10 - ATHSCL HEART DISEASE OF [place] CORONARY ARTERY W/O ANG PCTRS (5) Acute on chronic systolic (congestive) heart failure Code(s): I50.23 - ACUTE ON CHRONIC SYSTOLIC (CONGESTIVE) HEART FAILURE (6) Anemia Code(s): D64.9 - ANEMIA, UNSPECIFIED (7) COPD (chronic obstructive pulmonary disease) Code(s): J44.9 - CHRONIC OBSTRUCTIVE PULMONARY DISEASE, UNSPECIFIED Qualifiers: (8) Diabetes Code(s): E11.9 - TYPE 2 DIABETES MELLITUS WITHOUT COMPLICATIONS Qualifiers: Diabetes mellitus type: type 2 Diabetes mellitus termination clerk insulin use: without residential use Diabetes mellitus complication status: with neurologic complications (9) ESRD (end stage renal disease) on dialysis Code(s): N18.6 - END STAGE RENAL DISEASE; Z99.2 - DEPENDENCE ON RENAL DIALYSIS (10) HTN (hypertension) Code(s): I10 - ESSENTIAL (PRIMARY) HYPERTENSION Qualifiers: Hypertension type: essential hypertension Qualified Code(s): I10 - Essential (primary) hypertension (11) Hyperkalemia Code(s): E87.5 - HYPERKALEMIA (12) ICD (implantable cardioverter-defibrillator) in place Code(s): Z95.810 - PRESENCE OF AUTOMATIC (IMPLANTABLE) CARDIAC DEFIBRILLATOR (13) Ischemic dilated cardiomyopathy Code(s): I25.5 - ISCHEMIC CARDIOMYOPATHY; I42.0 - DILATED CARDIOMYOPATHY (14) PVD (peripheral vascular disease) Code(s): I73.9 - PERIPHERAL VASCULAR DISEASE, UNSPECIFIED (15) S/P CABG (coronary artery bypass graft) Code(s): Z95.1 - PRESENCE OF AORTOCORONARY BYPASS GRAFT (16) S/P peripheral artery angioplasty with stent placement Code(s): Z95.820 - PERIPHERAL VASCULAR ANGIOPLASTY STATUS W IMPLANTS AND GRAFTS (17) Status post amputation of left great toe Code(s): Z89.412 - ACQUIRED ABSENCE OF LEFT GREAT TOE Assessment/Plan 1. Hematuria resolved 2. PAD s/p SFA stent s/p left toe amputation 3. Chronic Systolic Heart Failure referable to ischemic dilated cardiomyopathy/ severe LV systolic dysfunction 4. CAD post remote [place] post CABG angina pectoris 5. Post prophylactic ICD implant ([employer]tr[employer] device) 6. HTN/HCVD 7. IDDM 8. Hypercholesterolemia 9. ESRD on HD, right AVG with steal and hyperkalemia 10. Anemia of CKD 11. Hypothyroidism 12. History of GI bleed PLAN: 1. HD per nephrology and empiric antibiotic 2. Urology recommended outpatient cystoscopy 3. Continue Toprol XL 150 mg QD, and Lipitor 80 mg QHS. Resume Entresto once hyperkalemia resolved 4. Continue ASA 81 qd 5. DVT and GI prophylaxis 6. Wound care Jarocho Rendon MD
[2018-12-13] MEDS: CALCIUM ACETATE 667 MG CAPSULE (FP) PO SCH ×3 (10:45→17:48)
[2018-12-13] MEDS: PANTOPRAZOLE 40 MG TABLET (FP) PO SCH ×2 (10:48→15:39)
[2018-12-13] MEDS: VITAMIN B COMP W-C 1 EA TABLET PO SCH ×2 (10:48→15:39)
[2018-12-13] MEDS: CHOLECALCIFEROL (VITAMIN D3) 1,000 UNIT TABLET (FP) PO SCH ×2 (10:48→15:42)
--- NOTE | 2018-12-13 11:08 | PN ---
Progress Note (short form) - Note Progress Note: Pt examined shortness of breath this a.m.,Better now pain in left foot decreased redness decreased no fever or chills feels well urine is clearer per pt Vital Signs - 24 hr 12/12/18 12/12/18 12/12/18 14:50 18:00 21:00 Temperature 100.0 F H 98.4 F Pulse Rate 78 83 Respiratory 22 H 20 17 Rate Blood Pressure 141/56 L 155/88 O2 Sat by Pulse 96 Oximetry (%) 12/12/18 12/13/18 12/13/18 22:00 05:48 07:20 Temperature 98.4 F 98.7 F 98.8 F Pulse Rate 85 85 82 Respiratory 17 20 24 H Rate Blood Pressure 146/68 148/56 L 145/77 O2 Sat by Pulse Oximetry (%) 12/13/18 12/13/18 12/13/18 08:24 10:00 11:00 Temperature 98 F Pulse Rate 82 80 Respiratory 24 H 18 Rate Blood Pressure 152/69 148/83 O2 Sat by Pulse 96 Oximetry (%) 12/13/18 12/13/18 12/13/18 11:10 11:40 12:10 Temperature Pulse Rate 80 81 80 Respiratory 18 18 18 Rate Blood Pressure 157/71 162/81 164/70 O2 Sat by Pulse Oximetry (%) 12/13/18 12/13/18 12/13/18 12:40 13:10 13:40 Temperature Pulse Rate 82 79 85 Respiratory 18 18 18 Rate Blood Pressure 153/83 174/71 H 161/71 O2 Sat by Pulse Oximetry (%) Current Medications Generic Name Dose Route Start Last Admin Trade Name Freq PRN Reason Stop Dose Admin Acetaminophen 650 mg 12/09/18 15:52 12/10/18 02:33 Tylenol - PO 650 mg Q4H PRN Administration PAIN LEVEL 1 - 3 Albuterol Sulfate 1 amp 12/09/18 15:52 Ventolin 0.083% Nebulizer Soln - NEB Q4H PRN Dyspnea Aspirin 81 mg 12/10/18 10:00 12/10/18 10:35 Asa - PO Not Given DAILY [facility] Atorvastatin Calcium 80 mg 12/09/18 22:00 12/12/18 21:17 Lipitor - PO 80 mg HS [facility] Administration Calcium Acetate 667 mg 12/09/18 17:30 12/13/18 10:45 Phoslo - PO 667 mg TIDCM [facility] Administration Cholecalciferol 1,000 unit 12/10/18 10:00 12/13/18 10:48 Vitamin D3 - PO Not Given DAILY [facility] Piperacillin Sod/Tazobactam 50 mls @ 100 mls/hr 12/12/18 10:00 12/13/18 10:46 Sod 2.25 gm/ Dextrose IVPB Not Given Q8H-IV [facility] Protocol Insulin Aspart 1 vial 12/09/18 16:30 12/13/18 06:19 Novolog Vial Sliding Scale - SQ Not Given BIDAC [facility] Protocol Insulin Detemir 5 units 12/10/18 22:00 12/12/18 21:17 Levemir Vial SQ 5 units HS [facility] Administration Levothyroxine Sodium 25 mcg 12/10/18 07:00 12/13/18 06:18 Synthroid - PO 25 mcg DAILY@0700 [facility] Administration Melatonin 3 mg 12/09/18 22:00 12/12/18 21:17 Melatonin PO 3 mg HS [facility] Administration Multivit/Ca Carb/B Cmplx/FA/Prenat 1 tablet 12/10/18 10:00 12/13/18 10:48 Nephro-Misty - PO Not Given DAILY [facility] Pantoprazole Sodium 40 mg 12/10/18 10:00 12/13/18 10:48 Protonix - PO Not Given DAILY [facility] Senna 1 tab 12/09/18 22:00 12/12/18 21:17 Senna - PO 1 tab HS [facility] Administration Sertraline HCl 50 mg 12/09/18 22:00 12/12/18 21:17 Zoloft - PO 50 mg HS [facility] Administration Vitamin A/Vitamin D 1 applic 12/09/18 22:00 12/13/18 06:19 Vitamin A & D Top Oint - TP Not Given TID [facility] Laboratory Results - last 24 hr 12/12/18 12/12/18 12/13/18 16:45 21:16 06:17 WBC RBC Hgb Hct MCV MCH MCHC RDW Plt Count MPV Sodium Potassium Chloride Carbon Dioxide Anion Gap BUN Creatinine Creat Clearance w eGFR POC Glucometer 212 247 110 Random Glucose Calcium Troponin I 12/13/18 12/13/18 12/13/18 09:05 09:50 09:50 WBC 9.5 RBC 3.61 L Hgb 11.4 L Hct 33.8 L MCV 93.7 MCH 31.5 MCHC 33.6 RDW 15.6 Plt Count 170 MPV 8.9 Sodium 137 Potassium 4.8 Chloride 99 Carbon Dioxide 28 Anion Gap 10 BUN 63 H Creatinine 9.2 H* Creat Clearance w eGFR 5.67 POC Glucometer Random Glucose 158 H Calcium 7.5 L Troponin I 0.07 H no pallor S1 S2 RRR Lungs clear Abd- soft, NT no edema Left foot-- toe amputation site is healed, clean, erythema on distal potion- decreased tender+, warm erythema improved PLAN IV antibiotics per ID noted elevated troponin, mildly elevated due to end-stage renal disease, his previous troponins were higher than this HD per renal Urology eval noted-- currently urine is clearer On ASA urine cultures negative will need cystoscopy as outpt Plavix dc per Cardiology HCT stable left a message for nialexandro Rico to call back Problem List - Problems (1) Cellulitis Code(s): L03.90 - CELLULITIS, UNSPECIFIED Qualifiers: Site of cellulitis: extremity Site of cellulitis of extremity: lower extremity Laterality: left Qualified Code(s): L03.116 - Cellulitis of left lower limb (2) Hematuria Code(s): R31.9 - HEMATURIA, UNSPECIFIED Qualifiers: Hematuria type: gross Qualified Code(s): R31.0 - Gross hematuria (3) UTI (urinary tract infection) Code(s): N39.0 - URINARY TRACT INFECTION, SITE NOT SPECIFIED (4) ASHD (arteriosclerotic heart disease) Code(s): I25.10 - ATHSCL HEART DISEASE OF [place] CORONARY ARTERY W/O ANG PCTRS (5) CHF (congestive heart failure), NYHA class IV Code(s): I50.9 - HEART FAILURE, UNSPECIFIED Qualifiers: Congestive heart failure type: systolic Congestive heart failure chronicity : chronic Qualified Code(s): I50.22 - Chronic systolic (congestive) heart failure (6) Diabetes Code(s): E11.9 - TYPE 2 DIABETES MELLITUS WITHOUT COMPLICATIONS Qualifiers: Diabetes mellitus type: type 2 Diabetes mellitus prison insulin use: without retail stock clerk use Diabetes mellitus complication status: with neurologic complications (7) ESRD (end stage renal disease) Code(s): N18.6 - END STAGE RENAL DISEASE
[2018-12-13 11:27] LABS: HEMATOCRIT 33.8 % (35.4-49); HEMOGLOBIN 11.4 GM/dL (11.7-16.9); MCH 31.5 pg (25.7-33.7); MCHC 33.6 g/dl (32.0-35.9); MEAN CELL VOLUME 93.7 fl (80-96); MEAN PLT VOLUME 8.9 fl (7.5-11.1); PLATELET COUNT 170 K/MM3 (134-434); RBC 3.61 M/mm3 (4.00-5.60); RDW 15.6 % (11.9-15.9); WHITE BLOOD COUNT 9.5 K/mm3 (4.0-10.0)
[2018-12-13 12:12] LABS: ANION GAP 10 MMOL/L (8-16); BLOOD UREA NITROGEN 63 mg/dL (7-18); CALCIUM 7.5 mg/dL (8.5-10.1); CHLORIDE 99 mmol/L (98-107); CO2 28 mmol/L (21-32); GLUCOSE,RANDOM 158 mg/dL (74-106); POTASSIUM 4.8 mmol/L (3.5-5.1); SODIUM 137 mmol/L (136-145)
[2018-12-13 12:33] LABS: CREATININE 9.2 mg/dL (0.55-1.3)
[2018-12-13] MEDS ORDERED: PARICALCITOL 5 MCG/ML VIAL IVPUSH ONE (13:30)
--- NOTE | 2018-12-13 13:57 | PN ---
Progress Note, Physician History of Present Illness: Pt seen and examined at bedside. He is tolerating HD. He denies shortness of breath. - Current Medication List Current Medications: Active Medications Acetaminophen (Tylenol -) 650 mg PO Q4H PRN PRN Reason: PAIN LEVEL 1 - 3 Last Admin: 12/10/18 02:33 Dose: 650 mg Albuterol Sulfate (Ventolin 0.083% Nebulizer Soln -) 1 amp NEB Q4H PRN PRN Reason: Dyspnea Aspirin (Asa -) 81 mg PO DAILY [facility] Last Admin: 12/10/18 10:35 Dose: Not Given Atorvastatin Calcium (Lipitor -) 80 mg PO HS [facility] Last Admin: 12/12/18 21:17 Dose: 80 mg Calcium Acetate (Phoslo -) 667 mg PO TIDCM [facility] Last Admin: 12/13/18 10:45 Dose: 667 mg Cholecalciferol (Vitamin D3 -) 1,000 unit PO DAILY [facility] Last Admin: 12/13/18 10:48 Dose: Not Given Piperacillin Sod/Tazobactam (Sod 2.25 gm/ Dextrose) 50 mls @ 100 mls/hr IVPB Q8H-IV [facility]; Protocol Last Admin: 12/13/18 10:46 Dose: Not Given Insulin Aspart (Novolog Vial Sliding Scale -) 1 vial SQ BIDAC [facility]; Protocol Last Admin: 12/13/18 06:19 Dose: Not Given Insulin Detemir (Levemir Vial) 5 units SQ [facility] Last Admin: 12/12/18 21:17 Dose: 5 units Levothyroxine Sodium (Synthroid -) 25 mcg PO DAILY@0700 [facility] Last Admin: 12/13/18 06:18 Dose: 25 mcg Melatonin (Melatonin) 3 mg PO [facility] Last Admin: 12/12/18 21:17 Dose: 3 mg Multivit/Ca Carb/B Cmplx/FA/Prenat (Nephro-Misty -) 1 tablet PO DAILY [facility] Last Admin: 12/13/18 10:48 Dose: Not Given Pantoprazole Sodium (Protonix -) 40 mg PO DAILY [facility] Last Admin: 12/13/18 10:48 Dose: Not Given Senna (Senna -) 1 tab PO [facility] Last Admin: 12/12/18 21:17 Dose: 1 tab Sertraline HCl (Zoloft -) 50 mg PO [facility] Last Admin: 12/12/18 21:17 Dose: 50 mg Vitamin A/Vitamin D (Vitamin A & D Top Oint -) 1 applic TP TID [facility] Last Admin: 12/13/18 06:19 Dose: Not Given - Objective Vital Signs: Vital Signs Temperature 98 F 12/13/18 08:24 Pulse Rate 85 12/13/18 13:40 Respiratory Rate 18 12/13/18 13:40 Blood Pressure 161/71 12/13/18 13:40 O2 Sat by Pulse Oximetry (%) 96 12/13/18 10:00 Constitutional: Yes: Calm Eyes: Yes: Conjunctiva Clear HENT: Yes: Atraumatic Neck: Yes: Supple Cardiovascular: Yes: S1, S2 Respiratory: Yes: CTA Bilaterally Gastrointestinal: Yes: Soft Genitourinary: Yes: WNL. No: Hematuria Musculoskeletal: Yes: WNL Edema: No Integumentary: Yes: Erythema Neurological: Yes: Oriented Psychiatric: Yes: Oriented Labs: CBC, BMP 12/13/18 09:50 12/13/18 09:50 INR, PTT INR 1.06 (0.83-1.09) 12/09/18 12:42 Problem List - Problems (1) Cellulitis Code(s): L03.90 - CELLULITIS, UNSPECIFIED Qualifiers: Site of cellulitis: extremity Site of cellulitis of extremity: lower extremity Laterality: left Qualified Code(s): L03.116 - Cellulitis of left lower limb (2) Hematuria Code(s): R31.9 - HEMATURIA, UNSPECIFIED Qualifiers: Hematuria type: gross Qualified Code(s): R31.0 - Gross hematuria (3) Anemia Code(s): D64.9 - ANEMIA, UNSPECIFIED (4) COPD (chronic obstructive pulmonary disease) Code(s): J44.9 - CHRONIC OBSTRUCTIVE PULMONARY DISEASE, UNSPECIFIED Qualifiers: (5) ESRD (end stage renal disease) Code(s): N18.6 - END STAGE RENAL DISEASE Assessment/Plan Current Medications Generic Name Dose Route Start Last Admin Trade Name Freq PRN Reason Stop Dose Admin Acetaminophen 650 mg 12/09/18 15:52 12/10/18 02:33 Tylenol - PO 650 mg Q4H PRN Administration PAIN LEVEL 1 - 3 Albuterol Sulfate 1 amp 12/09/18 15:52 Ventolin 0.083% Nebulizer Soln - NEB Q4H PRN Dyspnea Aspirin 81 mg 12/10/18 10:00 12/10/18 10:35 Asa - PO Not Given DAILY [facility] Atorvastatin Calcium 80 mg 12/09/18 22:00 12/12/18 21:17 Lipitor - PO 80 mg HS [facility] Administration Calcium Acetate 667 mg 12/09/18 17:30 12/13/18 10:45 Phoslo - PO 667 mg TIDCM [facility] Administration Cholecalciferol 1,000 unit 12/10/18 10:00 12/13/18 10:48 Vitamin D3 - PO Not Given DAILY [facility] Piperacillin Sod/Tazobactam 50 mls @ 100 mls/hr 12/12/18 10:00 12/13/18 10:46 Sod 2.25 gm/ Dextrose IVPB Not Given Q8H-IV [facility] Protocol Insulin Aspart 1 vial 12/09/18 16:30 12/13/18 06:19 Novolog Vial Sliding Scale - SQ Not Given BIDAC [facility] Protocol Insulin Detemir 5 units 12/10/18 22:00 12/12/18 21:17 Levemir Vial SQ 5 units HS [facility] Administration Levothyroxine Sodium 25 mcg 12/10/18 07:00 12/13/18 06:18 Synthroid - PO 25 mcg DAILY@0700 [facility] Administration Melatonin 3 mg 12/09/18 22:00 12/12/18 21:17 Melatonin PO 3 mg HS [facility] Administration Multivit/Ca Carb/B Cmplx/FA/Prenat 1 tablet 12/10/18 10:00 12/13/18 10:48 Nephro-Misty - PO Not Given DAILY [facility] Pantoprazole Sodium 40 mg 12/10/18 10:00 12/13/18 10:48 Protonix - PO Not Given DAILY [facility] Senna 1 tab 12/09/18 22:00 12/12/18 21:17 Senna - PO 1 tab HS [facility] Administration Sertraline HCl 50 mg 12/09/18 22:00 12/12/18 21:17 Zoloft - PO 50 mg HS [facility] Administration Vitamin A/Vitamin D 1 applic 12/09/18 22:00 12/13/18 06:19 Vitamin A & D Top Oint - TP Not Given TID [facility] Impression 1. ESRD 2. hx hemoptysis 3. DM 4. CAD 5. PVD 6. DFU 7. anemia 8. hx steal syndrome s/p DRIL procedure 9. CHF 10. pulmonary nodules 11. hematuria 12. hyperkalemia Plan - HD today - heparin on hold for now - potassium stable, cont current time - renal diet - volume status is stable - 2 k bath 1000 heparin bolus 500 maintenance, RUE fistula, 3 30, hectorol 1 mcg
[2018-12-13] MEDS: ACETAMINOPHEN 325 MG TABLET (FP) PO PRN (15:39)
--- NOTE | 2018-12-13 15:57 | PN ---
Progress Note (short form) - Note Progress Note: fuv left vss, tmax 98.2 +greatly improved cellulitis, -drainage -mal odor, wbc=9.5, Cellulitis Continue IVABX as per ID. No dressing required. Will follow.
--- NOTE | 2018-12-13 16:19 | PN ---
Progress Note, Physician History of Present Illness: AWAKE, ALERT NO C/O FOOT PAIN LOW GRADE TEMP NOTED DENIES RECURRENT HEMATURIA NO C/O FEVER/ CHILLS WBC WNL BC (-) - Current Medication List Current Medications: Active Medications Acetaminophen (Tylenol -) 650 mg PO Q4H PRN PRN Reason: PAIN LEVEL 1 - 3 Last Admin: 12/13/18 15:39 Dose: 650 mg Albuterol Sulfate (Ventolin 0.083% Nebulizer Soln -) 1 amp NEB Q4H PRN PRN Reason: Dyspnea Aspirin (Asa -) 81 mg PO DAILY [facility] Last Admin: 12/10/18 10:35 Dose: Not Given Atorvastatin Calcium (Lipitor -) 80 mg PO HS [facility] Last Admin: 12/12/18 21:17 Dose: 80 mg Calcium Acetate (Phoslo -) 667 mg PO TIDCM [facility] Last Admin: 12/13/18 12:00 Dose: Not Given Cholecalciferol (Vitamin D3 -) 1,000 unit PO DAILY [facility] Last Admin: 12/13/18 15:42 Dose: 1,000 unit Piperacillin Sod/Tazobactam (Sod 2.25 gm/ Dextrose) 50 mls @ 100 mls/hr IVPB Q8H-IV [facility]; Protocol Last Admin: 12/13/18 10:46 Dose: Not Given Insulin Aspart (Novolog Vial Sliding Scale -) 1 vial SQ BIDAC [facility]; Protocol Last Admin: 12/13/18 06:19 Dose: Not Given Insulin Detemir (Levemir Vial) 5 units SQ [facility] Last Admin: 12/12/18 21:17 Dose: 5 units Levothyroxine Sodium (Synthroid -) 25 mcg PO DAILY@0700 [facility] Last Admin: 12/13/18 06:18 Dose: 25 mcg Melatonin (Melatonin) 3 mg PO [facility] Last Admin: 12/12/18 21:17 Dose: 3 mg Multivit/Ca Carb/B Cmplx/FA/Prenat (Nephro-Misty -) 1 tablet PO DAILY [facility] Last Admin: 12/13/18 15:39 Dose: 1 tablet Pantoprazole Sodium (Protonix -) 40 mg PO DAILY [facility] Last Admin: 12/13/18 15:39 Dose: 40 mg Senna (Senna -) 1 tab PO [facility] Last Admin: 12/12/18 21:17 Dose: 1 tab Sertraline HCl (Zoloft -) 50 mg PO HS [facility] Last Admin: 12/12/18 21:17 Dose: 50 mg Vitamin A/Vitamin D (Vitamin A & D Top Oint -) 1 applic TP TID [facility] Last Admin: 12/13/18 06:19 Dose: Not Given - Objective Vital Signs: Vital Signs Temperature 98.1 F 12/13/18 15:33 Pulse Rate 83 12/13/18 15:33 Respiratory Rate 24 H 12/13/18 15:33 Blood Pressure 143/61 12/13/18 15:33 O2 Sat by Pulse Oximetry (%) 96 12/13/18 10:00 Constitutional: Yes: No Distress Cardiovascular: Yes: Regular Rate and Rhythm, S1, S2 Respiratory: Yes: CTA Bilaterally Gastrointestinal: Yes: Normal Bowel Sounds, Soft. No: Tenderness Extremities: Yes: Other (DECREASED ERYTHEMA L FOOT) Labs: CBC, BMP 12/13/18 09:50 12/13/18 09:50 INR, PTT INR 1.06 (0.83-1.09) 12/09/18 12:42 Assessment/Plan CELLULITIS, FOOT IMPROVED HEMATURIA ESRD REDOSED VANCOMYCIN CHECK LEVEL AM CONTINUE ZOSYN IF CONTINUED IMPROVEMENT, VANCOMYCIN AT HD OUTPATIENT
[2018-12-13] MEDS ORDERED: PT OWN MED DRAWER 7, Y5N ONE (21:16)
[2018-12-13] MEDS: SERTRALINE HCL 50 MG TABLET (FP) PO SCH (22:16)
[2018-12-13] MEDS: ATORVASTATIN CA 80 MG TABLET (FP) PO SCH (22:16)
[2018-12-13] MEDS: SENNOSIDES 8.6MG TABLET (FP) PO SCH (22:16)
[2018-12-13] MEDS: INSULIN (LEVEMIR) 100 UNITS/ML UNITS SQ SCH (22:16)
[2018-12-13] MEDS: MELATONIN 1 MG TABLET PO SCH (22:16)
[2018-12-14] MEDS ORDERED: PT OWN MED DRAWER 7, Y5N ONE (01:03)
[2018-12-14] MEDS: PIPERACILLIN/TAZOB 2.25 GM 2.25 GM in DEXTROSE 5%-WATER - 50 ML IVPB SCH ×3 (02:27→17:04)
[2018-12-14] MEDS: ACETAMINOPHEN 325 MG TABLET (FP) PO PRN ×3 (02:33→23:07)
[2018-12-14] MEDS ORDERED: INSULIN (NOVOLOG) ASPART 100 UNITS/ML 10ML VIAL ONE (05:43)
[2018-12-14] MEDS: VITAMINS A AND D TOPICAL OINTMENT 60 GM TUBE TP SCH ×3 (06:12→23:06)
[2018-12-14] MEDS: LEVOTHYROXINE NA 25 MCG TABLET (FP) PO SCH (06:12)
[2018-12-14] MEDS: INSULIN SLIDING SCALE (NOVOLOG) 1 VIAL SQ SCH ×2 (06:12→16:11)
[2018-12-14] MEDS: CALCIUM ACETATE 667 MG CAPSULE (FP) PO SCH ×3 (08:33→17:33)
[2018-12-14] MEDS ORDERED: DEXTROSE 5%-WATER - 50 ML IVPB ONE ×2 (09:41→16:48)
[2018-12-14] MEDS ORDERED: PIPERACILLIN/TAZOBACTAM 2.25 GM VIAL IVPB ONE ×2 (09:41→16:48)
--- NOTE | 2018-12-14 09:50 | PN ---
Progress Note (short form) - Note Progress Note: fuv left vss, tmax 98.3 +greatly improved cellulitis, -drainage -mal odor, wbc=9.5, resolved Cellulitis Continue IVABX as per ID. Patient still waiting for diabetic shoes. Will follow till dc.
[2018-12-14] MEDS: PANTOPRAZOLE 40 MG TABLET (FP) PO SCH (10:02)
[2018-12-14] MEDS: VITAMIN B COMP W-C 1 EA TABLET PO SCH (10:02)
[2018-12-14] MEDS: CHOLECALCIFEROL (VITAMIN D3) 1,000 UNIT TABLET (FP) PO SCH (10:02)
--- NOTE | 2018-12-14 10:08 | PN ---
Progress Note, Physician History of Present Illness: Denies recurrent hematuria and left foot erythema has resolved. - Current Medication List Current Medications: Active Medications Acetaminophen (Tylenol -) 650 mg PO Q4H PRN PRN Reason: PAIN LEVEL 1 - 3 Last Admin: 12/14/18 02:33 Dose: 650 mg Albuterol Sulfate (Ventolin 0.083% Nebulizer Soln -) 1 amp NEB Q4H PRN PRN Reason: Dyspnea Aspirin (Asa -) 81 mg PO DAILY [facility] Last Admin: 12/10/18 10:35 Dose: Not Given Atorvastatin Calcium (Lipitor -) 80 mg PO HS [facility] Last Admin: 12/13/18 22:16 Dose: 80 mg Calcium Acetate (Phoslo -) 667 mg PO TIDCM [facility] Last Admin: 12/14/18 08:33 Dose: 667 mg Cholecalciferol (Vitamin D3 -) 1,000 unit PO DAILY [facility] Last Admin: 12/14/18 10:02 Dose: 1,000 unit Piperacillin Sod/Tazobactam (Sod 2.25 gm/ Dextrose) 50 mls @ 100 mls/hr IVPB Q8H-IV [facility]; Protocol Last Admin: 12/14/18 10:02 Dose: 100 mls/hr Insulin Aspart (Novolog Vial Sliding Scale -) 1 vial SQ BIDAC [facility]; Protocol Last Admin: 12/14/18 06:12 Dose: Not Given Insulin Detemir (Levemir Vial) 5 units SQ [facility] Last Admin: 12/13/18 22:16 Dose: 5 units Levothyroxine Sodium (Synthroid -) 25 mcg PO DAILY@0700 [facility] Last Admin: 12/14/18 06:12 Dose: 25 mcg Melatonin (Melatonin) 3 mg PO [facility] Last Admin: 12/13/18 22:16 Dose: 3 mg Multivit/Ca Carb/B Cmplx/FA/Prenat (Nephro-Misty -) 1 tablet PO DAILY [facility] Last Admin: 12/14/18 10:02 Dose: 1 tablet Pantoprazole Sodium (Protonix -) 40 mg PO DAILY [facility] Last Admin: 12/14/18 10:02 Dose: 40 mg Senna (Senna -) 1 tab PO [facility] Last Admin: 12/13/18 22:16 Dose: 1 tab Sertraline HCl (Zoloft -) 50 mg PO [facility] Last Admin: 12/13/18 22:16 Dose: 50 mg Vitamin A/Vitamin D (Vitamin A & D Top Oint -) 1 applic TP TID [facility] Last Admin: 12/14/18 06:12 Dose: Not Given - Objective Vital Signs: Vital Signs Temperature 98.3 F 12/14/18 06:00 Pulse Rate 80 12/14/18 06:00 Respiratory Rate 18 12/14/18 06:00 Blood Pressure 146/65 12/14/18 06:00 O2 Sat by Pulse Oximetry (%) 96 12/13/18 21:00 Constitutional: Yes: No Distress, Calm, Thin Neck: Yes: Supple Cardiovascular: Yes: Regular Rate and Rhythm Respiratory: Yes: Regular, Diminished Gastrointestinal: Yes: Normal Bowel Sounds, Soft Extremities: Yes: Amputation (Left toe) Edema: No Labs: CBC, BMP 12/13/18 09:50 12/13/18 09:50 INR, PTT INR 1.06 (0.83-1.09) 12/09/18 12:42 Problem List - Problems (1) Hematuria Code(s): R31.9 - HEMATURIA, UNSPECIFIED Qualifiers: Hematuria type: gross Qualified Code(s): R31.0 - Gross hematuria (2) ASHD (arteriosclerotic heart disease) Code(s): I25.10 - ATHSCL HEART DISEASE OF [place] CORONARY ARTERY W/O ANG PCTRS (3) Chronic HFrEF (heart failure with reduced ejection fraction) Code(s): I50.22 - CHRONIC SYSTOLIC (CONGESTIVE) HEART FAILURE (4) Diabetes Code(s): E11.9 - TYPE 2 DIABETES MELLITUS WITHOUT COMPLICATIONS Qualifiers: Diabetes mellitus type: type 2 Diabetes mellitus usp insulin use: without termite control representative use Diabetes mellitus complication status: with neurologic complications (5) ESRD (end stage renal disease) on dialysis Code(s): N18.6 - END STAGE RENAL DISEASE; Z99.2 - DEPENDENCE ON RENAL DIALYSIS (6) Hypothyroidism Code(s): E03.9 - HYPOTHYROIDISM, UNSPECIFIED Qualifiers: Hypothyroidism type: unspecified Qualified Code(s): E03.9 - Hypothyroidism , unspecified (7) ICD (implantable cardioverter-defibrillator) in place Code(s): Z95.810 - PRESENCE OF AUTOMATIC (IMPLANTABLE) CARDIAC DEFIBRILLATOR (8) Ischemic dilated cardiomyopathy Code(s): I25.5 - ISCHEMIC CARDIOMYOPATHY; I42.0 - DILATED CARDIOMYOPATHY (9) PVD (peripheral vascular disease) Code(s): I73.9 - PERIPHERAL VASCULAR DISEASE, UNSPECIFIED (10) S/P CABG (coronary artery bypass graft) Code(s): Z95.1 - PRESENCE OF AORTOCORONARY BYPASS GRAFT (11) S/P peripheral artery angioplasty with stent placement Code(s): Z95.820 - PERIPHERAL VASCULAR ANGIOPLASTY STATUS W IMPLANTS AND GRAFTS (12) Steal syndrome of dialysis vascular access Code(s): T82.898A - [facility] COMPLICATION OF VASCULAR PROSTH DEV/GRFT, INIT Qualifiers: Encounter type: sequela Qualified Code(s): T82.898S - Other specified complication of vascular prosthetic devices, implants and grafts, sequela (13) Status post amputation of left great toe Code(s): Z89.412 - ACQUIRED ABSENCE OF LEFT GREAT TOE Assessment/Plan 1. Hematuria resolved 2. PAD s/p SFA stent s/p left toe amputation 3. Chronic Systolic Heart Failure referable to ischemic dilated cardiomyopathy/ severe LV systolic dysfunction 4. CAD post remote [place] post CABG angina pectoris 5. Post prophylactic ICD implant ([employer] device) 6. HTN/HCVD 7. IDDM 8. Hypercholesterolemia 9. ESRD on HD, right AVG with steal and hyperkalemia 10. Anemia of CKD 11. Hypothyroidism 12. History of GI bleed PLAN: 1. HD per nephrology and empiric antibiotic course 2. Urology recommended outpatient cystoscopy 3. Resume Toprol XL 50 mg QD, and Lipitor 80 mg QHS. Resume Entresto once hyperkalemia resolved 4. Continue ASA 81 qd 5. DVT and GI prophylaxis 6. Wound care
--- NOTE | 2018-12-14 10:19 | PN ---
Progress Note (short form) - Note Progress Note: pt seen/ examined chart reviewed c/c - neck pain today also constipated Vital Signs Period Temp Pulse Resp BP Sys/Lopez Pulse Ox Last 24 Hr 97.8 F-98.3 F 67-94 18-24 138-177/56-87 96 Active Medications Acetaminophen (Tylenol -) 650 mg PO Q4H PRN PRN Reason: PAIN LEVEL 1 - 3 Last Admin: 12/14/18 02:33 Dose: 650 mg Albuterol Sulfate (Ventolin 0.083% Nebulizer Soln -) 1 amp NEB Q4H PRN PRN Reason: Dyspnea Aspirin (Asa -) 81 mg PO DAILY [facility] Last Admin: 12/10/18 10:35 Dose: Not Given Atorvastatin Calcium (Lipitor -) 80 mg PO HS [facility] Last Admin: 12/13/18 22:16 Dose: 80 mg Calcium Acetate (Phoslo -) 667 mg PO TIDCM [facility] Last Admin: 12/14/18 08:33 Dose: 667 mg Cholecalciferol (Vitamin D3 -) 1,000 unit PO DAILY [facility] Last Admin: 12/14/18 10:02 Dose: 1,000 unit Piperacillin Sod/Tazobactam (Sod 2.25 gm/ Dextrose) 50 mls @ 100 mls/hr IVPB Q8H-IV [facility]; Protocol Last Admin: 12/14/18 10:02 Dose: 100 mls/hr Insulin Aspart (Novolog Vial Sliding Scale -) 1 vial SQ BIDAC [facility]; Protocol Last Admin: 12/14/18 06:12 Dose: Not Given Insulin Detemir (Levemir Vial) 5 units SQ [facility] Last Admin: 12/13/18 22:16 Dose: 5 units Levothyroxine Sodium (Synthroid -) 25 mcg PO DAILY@0700 [facility] Last Admin: 12/14/18 06:12 Dose: 25 mcg Melatonin (Melatonin) 3 mg PO HS [facility] Last Admin: 12/13/18 22:16 Dose: 3 mg Multivit/Ca Carb/B Cmplx/FA/Prenat (Nephro-Misty -) 1 tablet PO DAILY [facility] Last Admin: 12/14/18 10:02 Dose: 1 tablet Pantoprazole Sodium (Protonix -) 40 mg PO DAILY [facility] Last Admin: 12/14/18 10:02 Dose: 40 mg Senna (Senna -) 1 tab PO HS [facility] Last Admin: 12/13/18 22:16 Dose: 1 tab Sertraline HCl (Zoloft -) 50 mg PO [facility] Last Admin: 12/13/18 22:16 Dose: 50 mg Vitamin A/Vitamin D (Vitamin A & D Top Oint -) 1 applic TP TID [facility] Last Admin: 12/14/18 06:12 Dose: Not Given CBC, BMP 12/13/18 09:50 12/13/18 09:50 Microbiology 12/09/18 12:00 Blood Culture - Preliminary Blood - Peripheral Venous NO GROWTH OBTAINED AFTER 96 HOURS, INCUBATION TO CONTINUE FOR 1 DAYS. 12/09/18 12:30 Blood Culture - Preliminary Blood - Peripheral Venous NO GROWTH OBTAINED AFTER 96 HOURS, INCUBATION TO CONTINUE FOR 1 DAYS. physical exam. Awake and comfortable neck supple--- mild tenderness on palpation--- posteriorly Chronic ill appearance--- no distress S1 S2 RRR Lungs clear Abd- soft, NT no edema Left foot-- toe amputation site is healed, clean, erythema on distal potion- decreased tender+, warm erythema improved PLAN IV antibiotics per ID HD per renal Urology eval noted-- currently urine is clearer On ASA urine cultures negative will need cystoscopy as outpt Plavix dc per Cardiology HCT stable ice pack miralax Will follow Problem List - Problems (1) Cellulitis Code(s): L03.90 - CELLULITIS, UNSPECIFIED Qualifiers: Site of cellulitis: extremity Site of cellulitis of extremity: lower extremity Laterality: left Qualified Code(s): L03.116 - Cellulitis of left lower limb (2) Hematuria Code(s): R31.9 - HEMATURIA, UNSPECIFIED Qualifiers: Hematuria type: gross Qualified Code(s): R31.0 - Gross hematuria (3) ASHD (arteriosclerotic heart disease) Code(s): I25.10 - ATHSCL HEART DISEASE OF [place] CORONARY ARTERY W/O ANG PCTRS (4) Chronic HFrEF (heart failure with reduced ejection fraction) Code(s): I50.22 - CHRONIC SYSTOLIC (CONGESTIVE) HEART FAILURE (5) Diabetes Code(s): E11.9 - TYPE 2 DIABETES MELLITUS WITHOUT COMPLICATIONS Qualifiers: Diabetes mellitus type: type 2 Diabetes mellitus custodial insulin use: without custodial use Diabetes mellitus complication status: with neurologic complications (6) ESRD (end stage renal disease) on dialysis Code(s): N18.6 - END STAGE RENAL DISEASE; Z99.2 - DEPENDENCE ON RENAL DIALYSIS (7) Hepatitis C antibody test positive Code(s): R76.8 - OTHER SPECIFIED ABNORMAL IMMUNOLOGICAL FINDINGS IN SERUM (8) ICD (implantable cardioverter-defibrillator) in place Code(s): Z95.810 - PRESENCE OF AUTOMATIC (IMPLANTABLE) CARDIAC DEFIBRILLATOR (9) S/P CABG (coronary artery bypass graft) Code(s): Z95.1 - PRESENCE OF AORTOCORONARY BYPASS GRAFT (10) Status post amputation of left great toe Code(s): Z89.412 - ACQUIRED ABSENCE OF LEFT GREAT TOE
[2018-12-14] MEDS: POLYETHYLENE GLYCOL 3350 119 GM BTL PO SCH (10:57)
--- NOTE | 2018-12-14 12:21 | PN ---
Progress Note, Physician History of Present Illness: AWAKE, ALERT IN BED NO C/O FOOT PAIN AFEBRILE DENIES RECURRENT HEMATURIA NO C/O FEVER/ CHILLS WBC WNL BC (-) - Current Medication List Current Medications: Active Medications Acetaminophen (Tylenol -) 650 mg PO Q4H PRN PRN Reason: PAIN LEVEL 1 - 3 Last Admin: 12/14/18 10:55 Dose: 650 mg Albuterol Sulfate (Ventolin 0.083% Nebulizer Soln -) 1 amp NEB Q4H PRN PRN Reason: Dyspnea Aspirin (Asa -) 81 mg PO DAILY [facility] Last Admin: 12/10/18 10:35 Dose: Not Given Atorvastatin Calcium (Lipitor -) 80 mg PO HS [facility] Last Admin: 12/13/18 22:16 Dose: 80 mg Calcium Acetate (Phoslo -) 667 mg PO TIDCM [facility] Last Admin: 12/14/18 12:09 Dose: 667 mg Cholecalciferol (Vitamin D3 -) 1,000 unit PO DAILY [facility] Last Admin: 12/14/18 10:02 Dose: 1,000 unit Piperacillin Sod/Tazobactam (Sod 2.25 gm/ Dextrose) 50 mls @ 100 mls/hr IVPB Q8H-IV [facility]; Protocol Last Admin: 12/14/18 10:02 Dose: 100 mls/hr Insulin Aspart (Novolog Vial Sliding Scale -) 1 vial SQ BIDAC [facility]; Protocol Last Admin: 12/14/18 06:12 Dose: Not Given Insulin Detemir (Levemir Vial) 5 units SQ [facility] Last Admin: 12/13/18 22:16 Dose: 5 units Levothyroxine Sodium (Synthroid -) 25 mcg PO DAILY@0700 [facility] Last Admin: 12/14/18 06:12 Dose: 25 mcg Melatonin (Melatonin) 3 mg PO HS [facility] Last Admin: 12/13/18 22:16 Dose: 3 mg Metoprolol Succinate (Toprol Xl -) 50 mg PO DAILY [facility] Last Admin: 12/14/18 12:09 Dose: 50 mg Multivit/Ca Carb/B Cmplx/FA/Prenat (Nephro-Misty -) 1 tablet PO DAILY [facility] Last Admin: 12/14/18 10:02 Dose: 1 tablet Pantoprazole Sodium (Protonix -) 40 mg PO DAILY [facility] Last Admin: 12/14/18 10:02 Dose: 40 mg Polyethylene Glycol (Miralax (For Daily Use) -) 17 gm PO DAILY [facility] Last Admin: 12/14/18 10:57 Dose: 17 gm Senna (Senna -) 1 tab PO HS [facility] Last Admin: 12/13/18 22:16 Dose: 1 tab Sertraline HCl (Zoloft -) 50 mg PO HS [facility] Last Admin: 12/13/18 22:16 Dose: 50 mg Vitamin A/Vitamin D (Vitamin A & D Top Oint -) 1 applic TP TID [facility] Last Admin: 12/14/18 06:12 Dose: Not Given - Objective Vital Signs: Vital Signs Temperature 97.5 F L 12/14/18 10:00 Pulse Rate 82 12/14/18 10:00 Respiratory Rate 18 12/14/18 10:00 Blood Pressure 151/67 12/14/18 10:00 O2 Sat by Pulse Oximetry (%) 100 12/14/18 09:00 Constitutional: Yes: No Distress Cardiovascular: Yes: S1, S2 Respiratory: Yes: CTA Bilaterally Gastrointestinal: Yes: Normal Bowel Sounds, Soft. No: Tenderness Extremities: Yes: Other (ERYTHEMA L FOOT RESOLVED) Labs: CBC, BMP 12/13/18 09:50 12/13/18 09:50 INR, PTT INR 1.06 (0.83-1.09) 12/09/18 12:42 Assessment/Plan CELLULITIS, FOOT RESOLVED HEMATURIA RESOLVED ESRD REDOSED VANCOMYCIN CELLULITIS NOW RESOLVED OBSERVE OFF ANTIBIOTICS
[2018-12-14] MEDS ORDERED: SODIUM CHLORIDE 250 ML IV PRN (14:18)
--- NOTE | 2018-12-14 14:18 | PN ---
Progress Note, Physician History of Present Illness: Pt seen and examined at bedside. He is awake and alert. He denies fevers or chills. - Current Medication List Current Medications: Active Medications Acetaminophen (Tylenol -) 650 mg PO Q4H PRN PRN Reason: PAIN LEVEL 1 - 3 Last Admin: 12/14/18 10:55 Dose: 650 mg Albuterol Sulfate (Ventolin 0.083% Nebulizer Soln -) 1 amp NEB Q4H PRN PRN Reason: Dyspnea Aspirin (Asa -) 81 mg PO DAILY [facility] Last Admin: 12/10/18 10:35 Dose: Not Given Atorvastatin Calcium (Lipitor -) 80 mg PO HS [facility] Last Admin: 12/13/18 22:16 Dose: 80 mg Calcium Acetate (Phoslo -) 667 mg PO TIDCM [facility] Last Admin: 12/14/18 12:09 Dose: 667 mg Cholecalciferol (Vitamin D3 -) 1,000 unit PO DAILY [facility] Last Admin: 12/14/18 10:02 Dose: 1,000 unit Piperacillin Sod/Tazobactam (Sod 2.25 gm/ Dextrose) 50 mls @ 100 mls/hr IVPB Q8H-IV [facility]; Protocol Last Admin: 12/14/18 10:02 Dose: 100 mls/hr Insulin Aspart (Novolog Vial Sliding Scale -) 1 vial SQ BIDAC [facility]; Protocol Last Admin: 12/14/18 06:12 Dose: Not Given Insulin Detemir (Levemir Vial) 5 units SQ HS [facility] Last Admin: 12/13/18 22:16 Dose: 5 units Levothyroxine Sodium (Synthroid -) 25 mcg PO DAILY@0700 [facility] Last Admin: 12/14/18 06:12 Dose: 25 mcg Melatonin (Melatonin) 3 mg PO HS [facility] Last Admin: 12/13/18 22:16 Dose: 3 mg Metoprolol Succinate (Toprol Xl -) 50 mg PO DAILY [facility] Last Admin: 12/14/18 12:09 Dose: 50 mg Multivit/Ca Carb/B Cmplx/FA/Prenat (Nephro-Misty -) 1 tablet PO DAILY [facility] Last Admin: 12/14/18 10:02 Dose: 1 tablet Pantoprazole Sodium (Protonix -) 40 mg PO DAILY [facility] Last Admin: 12/14/18 10:02 Dose: 40 mg Polyethylene Glycol (Miralax (For Daily Use) -) 17 gm PO DAILY [facility] Last Admin: 12/14/18 10:57 Dose: 17 gm Senna (Senna -) 1 tab PO HS [facility] Last Admin: 12/13/18 22:16 Dose: 1 tab Sertraline HCl (Zoloft -) 50 mg PO HS [facility] Last Admin: 12/13/18 22:16 Dose: 50 mg Vitamin A/Vitamin D (Vitamin A & D Top Oint -) 1 applic TP TID [facility] Last Admin: 12/14/18 14:10 Dose: 1 applic - Objective Vital Signs: Vital Signs Temperature 97.5 F L 12/14/18 10:00 Pulse Rate 82 12/14/18 10:00 Respiratory Rate 18 12/14/18 10:00 Blood Pressure 151/67 12/14/18 10:00 O2 Sat by Pulse Oximetry (%) 100 12/14/18 09:00 Constitutional: Yes: Calm Eyes: Yes: Conjunctiva Clear HENT: Yes: Atraumatic Neck: Yes: Supple Cardiovascular: Yes: S1, S2 Respiratory: Yes: CTA Bilaterally Gastrointestinal: Yes: Soft Genitourinary: Yes: WNL Musculoskeletal: Yes: WNL Extremities: Yes: WNL Edema: No Wound/Incision: Yes: Open to air Neurological: Yes: Oriented Psychiatric: Yes: Oriented Labs: CBC, BMP 12/13/18 09:50 12/13/18 09:50 INR, PTT INR 1.06 (0.83-1.09) 12/09/18 12:42 Problem List - Problems (1) Cellulitis Code(s): L03.90 - CELLULITIS, UNSPECIFIED Qualifiers: Site of cellulitis: extremity Site of cellulitis of extremity: lower extremity Laterality: left Qualified Code(s): L03.116 - Cellulitis of left lower limb (2) Hematuria Code(s): R31.9 - HEMATURIA, UNSPECIFIED Qualifiers: Hematuria type: gross Qualified Code(s): R31.0 - Gross hematuria (3) Anemia Code(s): D64.9 - ANEMIA, UNSPECIFIED (4) COPD (chronic obstructive pulmonary disease) Code(s): J44.9 - CHRONIC OBSTRUCTIVE PULMONARY DISEASE, UNSPECIFIED Qualifiers: (5) ESRD (end stage renal disease) Code(s): N18.6 - END STAGE RENAL DISEASE Assessment/Plan Current Medications Generic Name Dose Route Start Last Admin Trade Name Freq PRN Reason Stop Dose Admin Acetaminophen 650 mg 12/09/18 15:52 12/14/18 10:55 Tylenol - PO 650 mg Q4H PRN Administration PAIN LEVEL 1 - 3 Albuterol Sulfate 1 amp 12/09/18 15:52 Ventolin 0.083% Nebulizer Soln - NEB Q4H PRN Dyspnea Aspirin 81 mg 12/10/18 10:00 12/10/18 10:35 Asa - PO Not Given DAILY [facility] Atorvastatin Calcium 80 mg 12/09/18 22:00 12/13/18 22:16 Lipitor - PO 80 mg HS [facility] Administration Calcium Acetate 667 mg 12/09/18 17:30 12/14/18 12:09 Phoslo - PO 667 mg TIDCM [facility] Administration Cholecalciferol 1,000 unit 12/10/18 10:00 12/14/18 10:02 Vitamin D3 - PO 1,000 unit DAILY [facility] Administration Piperacillin Sod/Tazobactam 50 mls @ 100 mls/hr 12/12/18 10:00 12/14/18 10:02 Sod 2.25 gm/ Dextrose IVPB 100 mls/hr Q8H-IV [facility] Administration Protocol Insulin Aspart 1 vial 12/09/18 16:30 12/14/18 06:12 Novolog Vial Sliding Scale - SQ Not Given BIDAC [facility] Protocol Insulin Detemir 5 units 12/10/18 22:00 12/13/18 22:16 Levemir Vial SQ 5 units HS [facility] Administration Levothyroxine Sodium 25 mcg 12/10/18 07:00 12/14/18 06:12 Synthroid - PO 25 mcg DAILY@0700 [facility] Administration Melatonin 3 mg 12/09/18 22:00 12/13/18 22:16 Melatonin PO 3 mg HS [facility] Administration Metoprolol Succinate 50 mg 12/14/18 11:15 12/14/18 12:09 Toprol Xl - PO 50 mg DAILY [facility] Administration Multivit/Ca Carb/B Cmplx/FA/Prenat 1 tablet 12/10/18 10:00 12/14/18 10:02 Nephro-Misty - PO 1 tablet DAILY [facility] Administration Pantoprazole Sodium 40 mg 12/10/18 10:00 12/14/18 10:02 Protonix - PO 40 mg DAILY [facility] Administration Polyethylene Glycol 17 gm 12/14/18 10:30 12/14/18 10:57 Miralax (For Daily Use) - PO 17 gm DAILY [facility] Administration Senna 1 tab 12/09/18 22:00 12/13/18 22:16 Senna - PO 1 tab HS [facility] Administration Sertraline HCl 50 mg 12/09/18 22:00 12/13/18 22:16 Zoloft - PO 50 mg HS [facility] Administration Vitamin A/Vitamin D 1 applic 12/09/18 22:00 12/14/18 14:10 Vitamin A & D Top Oint - TP 1 applic TID [facility] Administration Impression 1. ESRD 2. hx hemoptysis 3. DM 4. CAD 5. PVD 6. DFU 7. anemia 8. hx steal syndrome s/p DRIL procedure 9. CHF 10. pulmonary nodules 11. hematuria 12. hyperkalemia Plan - next HD tomorrow - he has HD set up as outpt - will order HD for tomorrow - heparin on hold for now - renal diet - volume status is stable - 2 k bath 1000 heparin bolus 500 maintenance, RUE fistula, 3 30, hectorol 1 mcg
[2018-12-14] MEDS: INSULIN (LEVEMIR) 100 UNITS/ML UNITS SQ SCH (22:05)
[2018-12-14] MEDS: ATORVASTATIN CA 80 MG TABLET (FP) PO SCH (22:05)
[2018-12-14] MEDS: MELATONIN 1 MG TABLET PO SCH (22:06)
[2018-12-14] MEDS: SENNOSIDES 8.6MG TABLET (FP) PO SCH (22:06)
[2018-12-14] MEDS: SERTRALINE HCL 50 MG TABLET (FP) PO SCH (22:06)
[2018-12-15] MEDS ORDERED: PIPERACILLIN/TAZOBACTAM 2.25 GM VIAL IVPB ONE (01:44)
[2018-12-15] MEDS ORDERED: DEXTROSE 5%-WATER - 50 ML IVPB ONE (01:45)
[2018-12-15] MEDS: PIPERACILLIN/TAZOB 2.25 GM 2.25 GM in DEXTROSE 5%-WATER - 50 ML IVPB SCH ×2 (02:39→10:27)
[2018-12-15] MEDS: ACETAMINOPHEN 325 MG TABLET (FP) PO PRN (03:27)
[2018-12-15] MEDS: LEVOTHYROXINE NA 25 MCG TABLET (FP) PO SCH (06:01)
[2018-12-15] MEDS: INSULIN SLIDING SCALE (NOVOLOG) 1 VIAL SQ SCH ×2 (06:01→16:43)
[2018-12-15] MEDS: VITAMINS A AND D TOPICAL OINTMENT 60 GM TUBE TP SCH ×3 (06:02→21:48)
--- NOTE | 2018-12-15 08:10 | PN ---
Progress Note (short form) - Note Progress Note: RENAL pt is awake and alert denies complaints says his urine has cleared Last Vital Signs Temp Pulse Resp BP Pulse Ox 97.2 F L 81 20 146/74 98 12/15/18 06:00 12/15/18 06:00 12/15/18 06:00 12/15/18 06:00 12/14/18 21:00 lungs clear cvs s1s2 rr abd soft ext no edema neuro a+ox3 Current Medications Generic Name Dose Route Start Last Admin Trade Name Freq PRN Reason Stop Dose Admin Acetaminophen 650 mg 12/09/18 15:52 12/15/18 03:27 Tylenol - PO 650 mg Q4H PRN Administration PAIN LEVEL 1 - 3 Albuterol Sulfate 1 amp 12/09/18 15:52 Ventolin 0.083% Nebulizer Soln - NEB Q4H PRN Dyspnea Aspirin 81 mg 12/10/18 10:00 12/10/18 10:35 Asa - PO Not Given DAILY [facility] Atorvastatin Calcium 80 mg 12/09/18 22:00 12/14/18 22:05 Lipitor - PO 80 mg HS [facility] Administration Calcium Acetate 667 mg 12/09/18 17:30 12/14/18 17:33 Phoslo - PO 667 mg TIDCM [facility] Administration Cholecalciferol 1,000 unit 12/10/18 10:00 12/14/18 10:02 Vitamin D3 - PO 1,000 unit DAILY [facility] Administration Heparin Sodium (Porcine) 500 unit 12/15/18 14:18 Heparin - IVPUSH 12/15/18 14:19 ONCE ONE Piperacillin Sod/Tazobactam 50 mls @ 100 mls/hr 12/12/18 10:00 12/15/18 02:39 Sod 2.25 gm/ Dextrose IVPB 100 mls/hr Q8H-IV [facility] Administration Protocol Sodium Chloride 250 mls @ 3,000 mls/hr 12/14/18 14:18 Normal Saline - IV 12/15/18 14:18 PRN PRN Hypotension during Dialysis Insulin Aspart 1 vial 12/09/18 16:30 12/15/18 06:01 Novolog Vial Sliding Scale - SQ Not Given BIDAC [facility] Protocol Insulin Detemir 5 units 12/10/18 22:00 12/14/18 22:05 Levemir Vial SQ 5 units HS [facility] Administration Levothyroxine Sodium 25 mcg 12/10/18 07:00 12/15/18 06:01 Synthroid - PO 25 mcg DAILY@0700 [facility] Administration Melatonin 3 mg 12/09/18 22:00 12/14/18 22:06 Melatonin PO 3 mg HS [facility] Administration Metoprolol Succinate 50 mg 12/14/18 11:15 12/14/18 12:09 Toprol Xl - PO 50 mg DAILY [facility] Administration Multivit/Ca Carb/B Cmplx/FA/Prenat 1 tablet 12/10/18 10:00 12/14/18 10:02 Nephro-Misty - PO 1 tablet DAILY [facility] Administration Pantoprazole Sodium 40 mg 12/10/18 10:00 12/14/18 10:02 Protonix - PO 40 mg DAILY [facility] Administration Polyethylene Glycol 17 gm 12/14/18 10:30 12/14/18 10:57 Miralax (For Daily Use) - PO 17 gm DAILY [facility] Administration Senna 1 tab 12/09/18 22:00 12/14/18 22:06 Senna - PO 1 tab HS [facility] Administration Sertraline HCl 50 mg 12/09/18 22:00 12/14/18 22:06 Zoloft - PO 50 mg HS [facility] Administration Vitamin A/Vitamin D 1 applic 12/09/18 22:00 12/15/18 06:02 Vitamin A & D Top Oint - TP Not Given TID [facility] Impression 1. ESRD 2. hx hemoptysis 3. DM 4. CAD 5. PVD 6. DFU 7. anemia 8. hx steal syndrome s/p DRIL procedure 9. CHF 10. pulmonary nodules 11. hematuria due to UTI- likely 12. hyperkalemia Plan -for heparin free HD today -continue other management -maybe able to get antibiotics in [place], so can be discharged [facility]
[2018-12-15 08:31] LABS: ANION GAP 10 MMOL/L (8-16); BLOOD UREA NITROGEN 57 mg/dL (7-18); CALCIUM 7.6 mg/dL (8.5-10.1); CHLORIDE 98 mmol/L (98-107); CO2 31 mmol/L (21-32); GLUCOSE,RANDOM 123 mg/dL (74-106); POTASSIUM 4.2 mmol/L (3.5-5.1); SODIUM 138 mmol/L (136-145)
[2018-12-15] MEDS: CALCIUM ACETATE 667 MG CAPSULE (FP) PO SCH ×3 (08:33→17:49)
[2018-12-15 08:41] LABS: HEMATOCRIT 34.2 % (35.4-49); HEMOGLOBIN 11.4 GM/dL (11.7-16.9); MCH 30.8 pg (25.7-33.7); MCHC 33.2 g/dl (32.0-35.9); MEAN CELL VOLUME 92.7 fl (80-96); MEAN PLT VOLUME 8.7 fl (7.5-11.1); PLATELET COUNT 187 K/MM3 (134-434); RBC 3.69 M/mm3 (4.00-5.60); RDW 15.6 % (11.9-15.9); WHITE BLOOD COUNT 8.6 K/mm3 (4.0-10.0)
[2018-12-15] MEDS: VITAMIN B COMP W-C 1 EA TABLET PO SCH (09:58)
[2018-12-15] MEDS: CHOLECALCIFEROL (VITAMIN D3) 1,000 UNIT TABLET (FP) PO SCH (09:58)
[2018-12-15] MEDS: PANTOPRAZOLE 40 MG TABLET (FP) PO SCH (09:58)
[2018-12-15] MEDS: POLYETHYLENE GLYCOL 3350 119 GM BTL PO SCH (09:59)
--- NOTE | 2018-12-15 11:14 | PN ---
Progress Note (short form) - Note Progress Note: Pt examined no pain in foot redness decreased no fever or chills feels well urine is clearer per pt Vital Signs - 24 hr 12/14/18 12/14/18 12/14/18 14:53 18:10 21:00 Temperature 97.7 F 97.8 F Pulse Rate 82 81 Respiratory 18 18 20 Rate Blood Pressure 145/68 147/76 O2 Sat by Pulse 98 Oximetry (%) 12/14/18 12/15/18 12/15/18 22:00 06:00 09:29 Temperature 97.2 F L 97.4 F L Pulse Rate 80 81 80 Respiratory 20 20 20 Rate Blood Pressure 155/72 146/74 154/83 O2 Sat by Pulse Oximetry (%) 12/15/18 12/15/18 12/15/18 11:30 11:35 12:05 Temperature 97.4 F L Pulse Rate 80 80 81 Respiratory 18 18 18 Rate Blood Pressure 147/73 151/75 137/70 O2 Sat by Pulse Oximetry (%) 12/15/18 12:35 Temperature Pulse Rate 81 Respiratory 18 Rate Blood Pressure 152/67 O2 Sat by Pulse Oximetry (%) Current Medications Generic Name Dose Route Start Last Admin Trade Name Freq PRN Reason Stop Dose Admin Acetaminophen 650 mg 12/09/18 15:52 12/15/18 03:27 Tylenol - PO 650 mg Q4H PRN Administration PAIN LEVEL 1 - 3 Albuterol Sulfate 1 amp 12/09/18 15:52 Ventolin 0.083% Nebulizer Soln - NEB Q4H PRN Dyspnea Aspirin 81 mg 12/10/18 10:00 12/10/18 10:35 Asa - PO Not Given DAILY [facility] Atorvastatin Calcium 80 mg 12/09/18 22:00 12/14/18 22:05 Lipitor - PO 80 mg HS [facility] Administration Calcium Acetate 667 mg 12/09/18 17:30 12/15/18 08:33 Phoslo - PO 667 mg TIDCM [facility] Administration Cholecalciferol 1,000 unit 12/10/18 10:00 12/15/18 09:58 Vitamin D3 - PO 1,000 unit DAILY [facility] Administration Heparin Sodium (Porcine) 500 unit 12/15/18 14:18 12/15/18 12:40 Heparin - IVPUSH 12/15/18 14:19 500 unit ONCE ONE Administration Sodium Chloride 250 mls @ 3,000 mls/hr 12/14/18 14:18 Normal Saline - IV 12/15/18 14:18 PRN PRN Hypotension during Dialysis Insulin Aspart 1 vial 12/09/18 16:30 12/15/18 06:01 Novolog Vial Sliding Scale - SQ Not Given BIDAC [facility] Protocol Insulin Detemir 5 units 12/10/18 22:00 12/14/18 22:05 Levemir Vial SQ 5 units HS [facility] Administration Levothyroxine Sodium 25 mcg 12/10/18 07:00 12/15/18 06:01 Synthroid - PO 25 mcg DAILY@0700 [facility] Administration Melatonin 3 mg 12/09/18 22:00 12/14/18 22:06 Melatonin PO 3 mg HS [facility] Administration Metoprolol Succinate 50 mg 12/14/18 11:15 12/14/18 12:09 Toprol Xl - PO 50 mg DAILY [facility] Administration Multivit/Ca Carb/B Cmplx/FA/Prenat 1 tablet 12/10/18 10:00 12/15/18 09:58 Nephro-Misty - PO 1 tablet DAILY [facility] Administration Pantoprazole Sodium 40 mg 12/10/18 10:00 12/15/18 09:58 Protonix - PO 40 mg DAILY [facility] Administration Polyethylene Glycol 17 gm 12/14/18 10:30 12/15/18 09:59 Miralax (For Daily Use) - PO Not Given DAILY [facility] Senna 1 tab 12/09/18 22:00 12/14/18 22:06 Senna - PO 1 tab HS [facility] Administration Sertraline HCl 50 mg 12/09/18 22:00 12/14/18 22:06 Zoloft - PO 50 mg HS [facility] Administration Vitamin A/Vitamin D 1 applic 12/09/18 22:00 12/15/18 06:02 Vitamin A & D Top Oint - TP Not Given TID [facility] Laboratory Results - last 24 hr 12/14/18 12/15/18 12/15/18 16:01 05:59 07:15 WBC RBC Hgb Hct MCV MCH MCHC RDW Plt Count MPV Sodium 138 Potassium 4.2 Chloride 98 Carbon Dioxide 31 Anion Gap 10 BUN 57 H Creatinine 8.0 H* Creat Clearance w eGFR 6.67 POC Glucometer 244 139 Random Glucose 123 H Calcium 7.6 L 12/15/18 07:15 WBC 8.6 RBC 3.69 L Hgb 11.4 L Hct 34.2 L MCV 92.7 MCH 30.8 MCHC 33.2 RDW 15.6 Plt Count 187 MPV 8.7 Sodium Potassium Chloride Carbon Dioxide Anion Gap BUN Creatinine Creat Clearance w eGFR POC Glucometer Random Glucose Calcium no pallor S1 S2 RRR Lungs clear Abd- soft, NT no edema Left foot-- toe amputation site is healed, clean, no erythema on distal potion- no tenderness, no warmth PLAN IV antibiotics per ID Urology montrell noted-- currently urine is clearer On ASA urine cultures negative will need cystoscopy as outpt Plavix dc per Cardiology HCT stable left a message for niece Trisha to call back dc antibiotics per ID will observe off antibiotics possible dc to [place] on Monday Problem List - Problems (1) Cellulitis Code(s): L03.90 - CELLULITIS, UNSPECIFIED Qualifiers: Site of cellulitis: extremity Site of cellulitis of extremity: lower extremity Laterality: left Qualified Code(s): L03.116 - Cellulitis of left lower limb (2) Hematuria Code(s): R31.9 - HEMATURIA, UNSPECIFIED Qualifiers: Hematuria type: gross Qualified Code(s): R31.0 - Gross hematuria (3) UTI (urinary tract infection) Code(s): N39.0 - URINARY TRACT INFECTION, SITE NOT SPECIFIED (4) ASHD (arteriosclerotic heart disease) Code(s): I25.10 - ATHSCL HEART DISEASE OF [place] CORONARY ARTERY W/O ANG PCTRS (5) CHF (congestive heart failure), NYHA class IV Code(s): I50.9 - HEART FAILURE, UNSPECIFIED Qualifiers: Congestive heart failure type: systolic Congestive heart failure chronicity : chronic Qualified Code(s): I50.22 - Chronic systolic (congestive) heart failure (6) Diabetes Code(s): E11.9 - TYPE 2 DIABETES MELLITUS WITHOUT COMPLICATIONS Qualifiers: Diabetes mellitus type: type 2 Diabetes mellitus manager terminal insulin use: without manager terminal use Diabetes mellitus complication status: with neurologic complications (7) ESRD (end stage renal disease) Code(s): N18.6 - END STAGE RENAL DISEASE
[2018-12-15] MEDS: HEPARIN NA (PORCINE) 5,000 UNITS/ML 1ML VIAL IVPUSH ONE ×2 (12:40→15:43)
[2018-12-15] MEDS: INSULIN (LEVEMIR) 100 UNITS/ML UNITS SQ SCH (21:46)
[2018-12-15] MEDS: SENNOSIDES 8.6MG TABLET (FP) PO SCH (21:47)
[2018-12-15] MEDS: MELATONIN 1 MG TABLET PO SCH (21:48)
[2018-12-15] MEDS: ATORVASTATIN CA 80 MG TABLET (FP) PO SCH (21:48)
[2018-12-15] MEDS: SERTRALINE HCL 50 MG TABLET (FP) PO SCH (21:48)
[2018-12-16] MEDS: VITAMINS A AND D TOPICAL OINTMENT 60 GM TUBE TP SCH ×3 (06:37→22:31)
[2018-12-16] MEDS: INSULIN SLIDING SCALE (NOVOLOG) 1 VIAL SQ SCH ×2 (06:37→17:25)
[2018-12-16] MEDS: LEVOTHYROXINE NA 25 MCG TABLET (FP) PO SCH (06:37)
[2018-12-16] MEDS ORDERED: FUROSEMIDE 40 MG/4 ML INJECTABLE VIAL IVPUSH ONE (08:37)
--- NOTE | 2018-12-16 08:37 | PN ---
Progress Note (short form) - Note Progress Note: RENAL pt is awake and alert c/o dyspnea says his urine has cleared Last Vital Signs Temp Pulse Resp BP Pulse Ox 98.2 F 82 20 139/55 L 98 12/16/18 06:00 12/16/18 06:00 12/16/18 06:00 12/16/18 06:00 12/15/18 21:00 lungs crackles at bases cvs s1s2 rr abd soft ext no edema neuro a+ox3 Current Medications Generic Name Dose Route Start Last Admin Trade Name Freq PRN Reason Stop Dose Admin Acetaminophen 650 mg 12/09/18 15:52 12/15/18 03:27 Tylenol - PO 650 mg Q4H PRN Administration PAIN LEVEL 1 - 3 Albuterol Sulfate 1 amp 12/09/18 15:52 Ventolin 0.083% Nebulizer Soln - NEB Q4H PRN Dyspnea Aspirin 81 mg 12/10/18 10:00 12/10/18 10:35 Asa - PO Not Given DAILY VALERY Atorvastatin Calcium 80 mg 12/09/18 22:00 12/15/18 21:48 Lipitor - PO 80 mg HS VALERY Administration Calcium Acetate 667 mg 12/09/18 17:30 12/15/18 17:49 Phoslo - PO 667 mg TIDCM VALERY Administration Cholecalciferol 1,000 unit 12/10/18 10:00 12/15/18 09:58 Vitamin D3 - PO 1,000 unit DAILY [facility]ERY Administration Insulin Aspart 1 vial 12/09/18 16:30 12/16/18 06:37 Novolog Vial Sliding Scale - SQ Not Given BIDAC [facility] Protocol Insulin Detemir 5 units 12/10/18 22:00 12/15/18 21:46 Levemir Vial SQ 5 units HS VALERY Administration Levothyroxine Sodium 25 mcg 12/10/18 07:00 12/16/18 06:37 Synthroid - PO 25 mcg DAILY@0700 [facility]ERY Administration Melatonin 3 mg 12/09/18 22:00 12/15/18 21:48 Melatonin PO 3 mg HS VALERY Administration Metoprolol Succinate 50 mg 12/14/18 11:15 12/15/18 15:51 Toprol Xl - PO 50 mg DAILY [facility]ERY Administration Multivit/Ca Carb/B Cmplx/FA/Prenat 1 tablet 12/10/18 10:00 12/15/18 09:58 Nephro-Misty - PO 1 tablet DAILY [facility] Administration Pantoprazole Sodium 40 mg 12/10/18 10:00 12/15/18 09:58 Protonix - PO 40 mg DAILY [facility]ERY Administration Polyethylene Glycol 17 gm 12/14/18 10:30 12/15/18 09:59 Miralax (For Daily Use) - PO Not Given DAILY VALERY Senna 1 tab 12/09/18 22:00 12/15/18 21:47 Senna - PO 1 tab HS VALERY Administration Sertraline HCl 50 mg 12/09/18 22:00 12/15/18 21:48 Zoloft - PO 50 mg HS VALERY Administration Vitamin A/Vitamin D 1 applic 12/09/18 22:00 12/16/18 06:37 Vitamin A & D Top Oint - TP Not Given TID VALERY Impression 1. ESRD 2. hx hemoptysis 3. DM 4. CAD, with severely reduced systolic function on previous echo 5. PVD 6. DFU 7. anemia 8. hx steal syndrome s/p DRIL procedure 9. CHF 10. pulmonary nodules 11. hematuria due to UTI- likely 12. hyperkalemia Plan will get xray add lasix iv keep fluid restricted cardiology follow up MV
[2018-12-16] MEDS: CALCIUM ACETATE 667 MG CAPSULE (FP) PO SCH ×3 (08:39→17:25)
--- NOTE | 2018-12-16 09:27 | PN ---
Progress Note (short form) - Note Progress Note: Pt examined c/o SOB this AM lying in bed comfortable denies chest pain no pain in foot redness decreased no fever or chills feels well urine is clearer per pt Vital Signs - 24 hr 12/15/18 12/15/18 12/16/18 21:00 22:00 06:00 Temperature 98.2 F Pulse Rate 80 82 Respiratory 20 20 20 Rate Blood Pressure 140/67 139/55 L O2 Sat by Pulse 98 Oximetry (%) 12/16/18 12/16/18 12/16/18 09:00 10:00 14:10 Temperature 98.3 F Pulse Rate 80 80 Respiratory 18 18 Rate Blood Pressure 150/66 141/63 O2 Sat by Pulse 98 Oximetry (%) Current Medications Generic Name Dose Route Start Last Admin Trade Name Freq PRN Reason Stop Dose Admin Acetaminophen 650 mg 12/09/18 15:52 12/15/18 03:27 Tylenol - PO 650 mg Q4H PRN Administration PAIN LEVEL 1 - 3 Albuterol Sulfate 1 amp 12/09/18 15:52 Ventolin 0.083% Nebulizer Soln - NEB Q4H PRN Dyspnea Aspirin 81 mg 12/10/18 10:00 12/16/18 09:44 Asa - PO 81 mg DAILY [facility]ERY Administration Atorvastatin Calcium 80 mg 12/09/18 22:00 12/15/18 21:48 Lipitor - PO 80 mg HS VALERY Administration Calcium Acetate 667 mg 12/09/18 17:30 12/16/18 17:25 Phoslo - PO 667 mg TIDCM [facility]ERY Administration Cholecalciferol 1,000 unit 12/10/18 10:00 12/16/18 09:45 Vitamin D3 - PO 1,000 unit DAILY [facility]ERY Administration Insulin Aspart 1 vial 12/09/18 16:30 12/16/18 17:25 Novolog Vial Sliding Scale - SQ 4 units BIDAC [facility]ERY Administration Protocol Insulin Detemir 5 units 12/10/18 22:00 12/15/18 21:46 Levemir Vial SQ 5 units HS VALERY Administration Levothyroxine Sodium 25 mcg 12/10/18 07:00 12/16/18 06:37 Synthroid - PO 25 mcg DAILY@0700 [facility]ERY Administration Melatonin 3 mg 12/09/18 22:00 12/15/18 21:48 Melatonin PO 3 mg HS VALERY Administration Metoprolol Succinate 50 mg 12/14/18 11:15 12/16/18 09:45 Toprol Xl - PO 50 mg DAILY VALERY Administration Multivit/Ca Carb/B Cmplx/FA/Prenat 1 tablet 12/10/18 10:00 12/16/18 09:45 Nephro-Misty - PO 1 tablet DAILY [facility] Administration Pantoprazole Sodium 40 mg 12/10/18 10:00 12/16/18 09:45 Protonix - PO 40 mg DAILY VALERY Administration Polyethylene Glycol 17 gm 12/14/18 10:30 12/16/18 14:27 Miralax (For Daily Use) - PO Not Given DAILY VALERY Sacubitril/Valsartan 1 tab 12/16/18 22:00 Entresto 24 Mg-26 Mg Tablet PO BID VALERY Senna 1 tab 12/09/18 22:00 12/15/18 21:47 Senna - PO 1 tab HS [facility]ERY Administration Sertraline HCl 50 mg 12/09/18 22:00 12/15/18 21:48 Zoloft - PO 50 mg HS VALERY Administration Vitamin A/Vitamin D 1 applic 12/09/18 22:00 12/16/18 14:00 Vitamin A & D Top Oint - TP 1 applic TID VALERY Administration Laboratory Results - last 24 hr 12/15/18 12/16/18 12/16/18 21:45 06:37 17:17 POC Glucometer 210 87 217 no pallor S1 S2 RRR Lungs clear Abd- soft, NT no edema Left foot-- toe amputation site is healed, clean, no erythema on distal potion- no tenderness, no warmth PLAN CXR - congested On ASA urine cultures negative will need cystoscopy as outpt Plavix dc per Cardiology HCT stable lasix iv today may need Lasix po on non dialysis days will observe off antibiotics possible dc to [place] on Monday Problem List - Problems (1) Cellulitis Code(s): L03.90 - CELLULITIS, UNSPECIFIED Qualifiers: Site of cellulitis: extremity Site of cellulitis of extremity: lower extremity Laterality: left Qualified Code(s): L03.116 - Cellulitis of left lower limb (2) Hematuria Code(s): R31.9 - HEMATURIA, UNSPECIFIED Qualifiers: Hematuria type: gross Qualified Code(s): R31.0 - Gross hematuria (3) UTI (urinary tract infection) Code(s): N39.0 - URINARY TRACT INFECTION, SITE NOT SPECIFIED (4) ASHD (arteriosclerotic heart disease) Code(s): I25.10 - ATHSCL HEART DISEASE OF [place] CORONARY ARTERY W/O ANG PCTRS (5) CHF (congestive heart failure), NYHA class IV Code(s): I50.9 - HEART FAILURE, UNSPECIFIED Qualifiers: Congestive heart failure type: systolic Congestive heart failure chronicity : chronic Qualified Code(s): I50.22 - Chronic systolic (congestive) heart failure (6) Diabetes Code(s): E11.9 - TYPE 2 DIABETES MELLITUS WITHOUT COMPLICATIONS Qualifiers: Diabetes mellitus type: type 2 Diabetes mellitus continuous churn buttermaker insulin use: without snf use Diabetes mellitus complication status: with neurologic complications (7) ESRD (end stage renal disease) Code(s): N18.6 - END STAGE RENAL DISEASE
[2018-12-16] MEDS: ASPIRIN 81 MG CHEWABLE TABLETS PO SCH (09:44)
[2018-12-16] MEDS: VITAMIN B COMP W-C 1 EA TABLET PO SCH (09:45)
[2018-12-16] MEDS: PANTOPRAZOLE 40 MG TABLET (FP) PO SCH (09:45)
[2018-12-16] MEDS: CHOLECALCIFEROL (VITAMIN D3) 1,000 UNIT TABLET (FP) PO SCH (09:45)
[2018-12-16] MEDS ORDERED: FUROSEMIDE 40 MG/4 ML INJECTABLE VIAL ONE (09:49)
--- NOTE | 2018-12-16 14:05 | PN ---
Progress Note, Physician History of Present Illness: Reports dyspnea, CXR shows increased congestion. Denies recurrent hematuria and left foot erythema has resolved. - Current Medication List Current Medications: Active Medications Acetaminophen (Tylenol -) 650 mg PO Q4H PRN PRN Reason: PAIN LEVEL 1 - 3 Last Admin: 12/15/18 03:27 Dose: 650 mg Albuterol Sulfate (Ventolin 0.083% Nebulizer Soln -) 1 amp NEB Q4H PRN PRN Reason: Dyspnea Aspirin (Asa -) 81 mg PO DAILY [facility] Last Admin: 12/16/18 09:44 Dose: 81 mg Atorvastatin Calcium (Lipitor -) 80 mg PO [facility] Last Admin: 12/15/18 21:48 Dose: 80 mg Calcium Acetate (Phoslo -) 667 mg PO TIDCM [facility] Last Admin: 12/16/18 08:39 Dose: 667 mg Cholecalciferol (Vitamin D3 -) 1,000 unit PO DAILY [facility] Last Admin: 12/16/18 09:45 Dose: 1,000 unit Insulin Aspart (Novolog Vial Sliding Scale -) 1 vial SQ BIDAC [facility]; Protocol Last Admin: 12/16/18 06:37 Dose: Not Given Insulin Detemir (Levemir Vial) 5 units SQ [facility] Last Admin: 12/15/18 21:46 Dose: 5 units Levothyroxine Sodium (Synthroid -) 25 mcg PO DAILY@0700 [facility] Last Admin: 12/16/18 06:37 Dose: 25 mcg Melatonin (Melatonin) 3 mg PO [facility] Last Admin: 12/15/18 21:48 Dose: 3 mg Metoprolol Succinate (Toprol Xl -) 50 mg PO DAILY [facility] Last Admin: 12/16/18 09:45 Dose: 50 mg Multivit/Ca Carb/B Cmplx/FA/Prenat (Nephro-Misty -) 1 tablet PO DAILY [facility] Last Admin: 12/16/18 09:45 Dose: 1 tablet Pantoprazole Sodium (Protonix -) 40 mg PO DAILY [facility] Last Admin: 12/16/18 09:45 Dose: 40 mg Polyethylene Glycol (Miralax (For Daily Use) -) 17 gm PO DAILY [facility] Last Admin: 12/15/18 09:59 Dose: Not Given Senna (Senna -) 1 tab PO [facility] Last Admin: 12/15/18 21:47 Dose: 1 tab Sertraline HCl (Zoloft -) 50 mg PO HS [facility] Last Admin: 12/15/18 21:48 Dose: 50 mg Vitamin A/Vitamin D (Vitamin A & D Top Oint -) 1 applic TP TID [facility] Last Admin: 12/16/18 06:37 Dose: Not Given - Objective Vital Signs: Vital Signs Temperature 98.2 F 12/16/18 06:00 Pulse Rate 80 12/16/18 10:00 Respiratory Rate 18 12/16/18 10:00 Blood Pressure 150/66 12/16/18 10:00 O2 Sat by Pulse Oximetry (%) 98 12/16/18 09:00 Constitutional: Yes: No Distress, Calm, Thin Neck: Yes: Supple Cardiovascular: Yes: Regular Rate and Rhythm Respiratory: Yes: Regular, Diminished, On Nasal O2 Gastrointestinal: Yes: Normal Bowel Sounds, Soft Edema: No Labs: CBC, BMP 12/15/18 07:15 12/15/18 07:15 INR, PTT INR 1.06 (0.83-1.09) 12/09/18 12:42 - ....Imaging Chest X-ray: Report Reviewed (Increased congestion) Problem List - Problems (1) Hematuria Code(s): R31.9 - HEMATURIA, UNSPECIFIED Qualifiers: Hematuria type: gross Qualified Code(s): R31.0 - Gross hematuria (2) ASHD (arteriosclerotic heart disease) Code(s): I25.10 - ATHSCL HEART DISEASE OF [place] CORONARY ARTERY W/O ANG PCTRS (3) Chronic HFrEF (heart failure with reduced ejection fraction) Code(s): I50.22 - CHRONIC SYSTOLIC (CONGESTIVE) HEART FAILURE (4) Diabetes Code(s): E11.9 - TYPE 2 DIABETES MELLITUS WITHOUT COMPLICATIONS Qualifiers: Diabetes mellitus type: type 2 Diabetes mellitus detention insulin use: without detention use Diabetes mellitus complication status: with neurologic complications (5) ESRD (end stage renal disease) on dialysis Code(s): N18.6 - END STAGE RENAL DISEASE; Z99.2 - DEPENDENCE ON RENAL DIALYSIS (6) Hypothyroidism Code(s): E03.9 - HYPOTHYROIDISM, UNSPECIFIED Qualifiers: Hypothyroidism type: unspecified Qualified Code(s): E03.9 - Hypothyroidism , unspecified (7) ICD (implantable cardioverter-defibrillator) in place Code(s): Z95.810 - PRESENCE OF AUTOMATIC (IMPLANTABLE) CARDIAC DEFIBRILLATOR (8) Ischemic dilated cardiomyopathy Code(s): I25.5 - ISCHEMIC CARDIOMYOPATHY; I42.0 - DILATED CARDIOMYOPATHY (9) PVD (peripheral vascular disease) Code(s): I73.9 - PERIPHERAL VASCULAR DISEASE, UNSPECIFIED (10) S/P CABG (coronary artery bypass graft) Code(s): Z95.1 - PRESENCE OF AORTOCORONARY BYPASS GRAFT (11) S/P peripheral artery angioplasty with stent placement Code(s): Z95.820 - PERIPHERAL VASCULAR ANGIOPLASTY STATUS W IMPLANTS AND GRAFTS (12) Steal syndrome of dialysis vascular access Code(s): T82.898A - OTH COMPLICATION OF VASCULAR PROSTH DEV/GRFT, INIT Qualifiers: Encounter type: sequela Qualified Code(s): T82.898S - Other specified complication of vascular prosthetic devices, implants and grafts, sequela (13) Status post amputation of left great toe Code(s): Z89.412 - ACQUIRED ABSENCE OF LEFT GREAT TOE Assessment/Plan 1. Hematuria resolved, suspect UTI 2. PAD s/p SFA stent s/p left toe amputation 3. Acute on Chronic Systolic Heart Failure referable to ischemic dilated cardiomyopathy/severe LV systolic dysfunction 4. CAD post remote [place] post CABG angina pectoris 5. Post prophylactic ICD implant (Medtronic device) 6. HTN/HCVD 7. IDDM 8. Hypercholesterolemia 9. ESRD on HD, right AVG with steal and hyperkalemia resolved 10. Anemia of CKD 11. Hypothyroidism 12. History of GI bleed PLAN: 1. HD and IV diuresis per renal with monitor diuretic response and electrolytes , completed empiric antibiotic course 2. Urology recommended outpatient cystoscopy 3. Continue ASA 81 qd, Toprol XL 50 mg QD, and Lipitor 80 mg QHS. Resume Entresto 24/26 bid as hyperkalemia resolved with uptitration as hemodynamics tolerate 4. DVT and GI prophylaxis 5. Wound care
[2018-12-16] MEDS: POLYETHYLENE GLYCOL 3350 119 GM BTL PO SCH (14:27)
[2018-12-16] MEDS ORDERED: INSULIN (NOVOLOG) ASPART 100 UNITS/ML 10ML VIAL ONE ×2 (17:24→17:38)
[2018-12-16] MEDS ORDERED: PT OWN MED DRAWER 7, Y5N ONE (17:39)
[2018-12-16] MEDS: SENNOSIDES 8.6MG TABLET (FP) PO SCH (22:30)
[2018-12-16] MEDS: ATORVASTATIN CA 80 MG TABLET (FP) PO SCH (22:30)
[2018-12-16] MEDS: SACUBITRIL/VALSARTAN 24 MG-26 MG TABLET PO SCH (22:30)
[2018-12-16] MEDS: SERTRALINE HCL 50 MG TABLET (FP) PO SCH (22:31)
[2018-12-16] MEDS: MELATONIN 1 MG TABLET PO SCH (22:31)
[2018-12-16] MEDS: INSULIN (LEVEMIR) 100 UNITS/ML UNITS SQ SCH (22:31)
[2018-12-17] MEDS: LEVOTHYROXINE NA 25 MCG TABLET (FP) PO SCH (06:28)
[2018-12-17] MEDS: VITAMINS A AND D TOPICAL OINTMENT 60 GM TUBE TP SCH ×3 (06:28→23:55)
[2018-12-17] MEDS: INSULIN SLIDING SCALE (NOVOLOG) 1 VIAL SQ SCH ×2 (06:28→16:32)
[2018-12-17] MEDS: CALCIUM ACETATE 667 MG CAPSULE (FP) PO SCH ×3 (08:11→17:31)
[2018-12-17] MEDS ORDERED: PT OWN MED DRAWER 7, Y5N ONE (09:09)
[2018-12-17] MEDS: PANTOPRAZOLE 40 MG TABLET (FP) PO SCH (09:28)
[2018-12-17] MEDS: VITAMIN B COMP W-C 1 EA TABLET PO SCH (09:28)
[2018-12-17] MEDS: ASPIRIN 81 MG CHEWABLE TABLETS PO SCH (09:28)
[2018-12-17] MEDS: CHOLECALCIFEROL (VITAMIN D3) 1,000 UNIT TABLET (FP) PO SCH (09:28)
[2018-12-17] MEDS: SACUBITRIL/VALSARTAN 24 MG-26 MG TABLET PO SCH ×2 (09:29→21:45)
[2018-12-17] MEDS: POLYETHYLENE GLYCOL 3350 119 GM BTL PO SCH (09:29)
--- NOTE | 2018-12-17 11:20 | PN ---
Progress Note, Physician History of Present Illness: Dyspnea and orthopnea improved with diuresis and Entresto re-initiation, yesterday's CXR shows increased congestion. Denies recurrent hematuria and left foot erythema has resolved. - Current Medication List Current Medications: Active Medications Acetaminophen (Tylenol -) 650 mg PO Q4H PRN PRN Reason: PAIN LEVEL 1 - 3 Last Admin: 12/15/18 03:27 Dose: 650 mg Albuterol Sulfate (Ventolin 0.083% Nebulizer Soln -) 1 amp NEB Q4H PRN PRN Reason: Dyspnea Aspirin (Asa -) 81 mg PO DAILY [facility] Last Admin: 12/17/18 09:28 Dose: 81 mg Atorvastatin Calcium (Lipitor -) 80 mg PO [facility] Last Admin: 12/16/18 22:30 Dose: 80 mg Calcium Acetate (Phoslo -) 667 mg PO TIDCM [facility] Last Admin: 12/17/18 08:11 Dose: 667 mg Cholecalciferol (Vitamin D3 -) 1,000 unit PO DAILY [facility] Last Admin: 12/17/18 09:28 Dose: 1,000 unit Insulin Aspart (Novolog Vial Sliding Scale -) 1 vial SQ BIDAC [facility]; Protocol Last Admin: 12/17/18 06:28 Dose: 2 units Insulin Detemir (Levemir Vial) 5 units SQ [facility] Last Admin: 12/16/18 22:31 Dose: 5 units Levothyroxine Sodium (Synthroid -) 25 mcg PO DAILY@0700 [facility] Last Admin: 12/17/18 06:28 Dose: 25 mcg Melatonin (Melatonin) 3 mg PO [facility] Last Admin: 12/16/18 22:31 Dose: 3 mg Metoprolol Succinate (Toprol Xl -) 50 mg PO DAILY [facility] Last Admin: 12/17/18 09:27 Dose: 50 mg Multivit/Ca Carb/B Cmplx/FA/Prenat (Nephro-Misty -) 1 tablet PO DAILY [facility] Last Admin: 12/17/18 09:28 Dose: 1 tablet Pantoprazole Sodium (Protonix -) 40 mg PO DAILY [facility] Last Admin: 12/17/18 09:28 Dose: 40 mg Polyethylene Glycol (Miralax (For Daily Use) -) 17 gm PO DAILY [facility] Last Admin: 12/17/18 09:29 Dose: 17 gm Sacubitril/Valsartan (Entresto 24 Mg-26 Mg Tablet) 1 tab PO BID [facility] Last Admin: 12/17/18 09:29 Dose: 1 tab Senna (Senna -) 1 tab PO [facility] Last Admin: 12/16/18 22:30 Dose: 1 tab Sertraline HCl (Zoloft -) 50 mg PO HS [facility] Last Admin: 12/16/18 22:31 Dose: 50 mg Vitamin A/Vitamin D (Vitamin A & D Top Oint -) 1 applic TP TID [facility] Last Admin: 12/17/18 06:28 Dose: Not Given - Objective Vital Signs: Vital Signs Temperature 98.1 F 12/17/18 10:00 Pulse Rate 79 12/17/18 10:00 Respiratory Rate 18 12/17/18 10:00 Blood Pressure 150/75 12/17/18 10:00 O2 Sat by Pulse Oximetry (%) 98 12/16/18 21:00 Constitutional: Yes: No Distress, Calm, Thin Neck: Yes: Supple Cardiovascular: Yes: Regular Rate and Rhythm Respiratory: Yes: Regular, Diminished, On Nasal O2 Gastrointestinal: Yes: Normal Bowel Sounds, Soft Edema: No Labs: CBC, BMP 12/15/18 07:15 12/15/18 07:15 INR, PTT INR 1.06 (0.83-1.09) 12/09/18 12:42 Problem List - Problems (1) Hematuria Code(s): R31.9 - HEMATURIA, UNSPECIFIED Qualifiers: Hematuria type: gross Qualified Code(s): R31.0 - Gross hematuria (2) ASHD (arteriosclerotic heart disease) Code(s): I25.10 - ATHSCL HEART DISEASE OF [place] CORONARY ARTERY W/O ANG PCTRS (3) Chronic HFrEF (heart failure with reduced ejection fraction) Code(s): I50.22 - CHRONIC SYSTOLIC (CONGESTIVE) HEART FAILURE (4) Diabetes Code(s): E11.9 - TYPE 2 DIABETES MELLITUS WITHOUT COMPLICATIONS Qualifiers: Diabetes mellitus type: type 2 Diabetes mellitus choir leader insulin use: without assisted use Diabetes mellitus complication status: with neurologic complications (5) ESRD (end stage renal disease) on dialysis Code(s): N18.6 - END STAGE RENAL DISEASE; Z99.2 - DEPENDENCE ON RENAL DIALYSIS (6) Hypothyroidism Code(s): E03.9 - HYPOTHYROIDISM, UNSPECIFIED Qualifiers: Hypothyroidism type: unspecified Qualified Code(s): E03.9 - Hypothyroidism , unspecified (7) ICD (implantable cardioverter-defibrillator) in place Code(s): Z95.810 - PRESENCE OF AUTOMATIC (IMPLANTABLE) CARDIAC DEFIBRILLATOR (8) Ischemic dilated cardiomyopathy Code(s): I25.5 - ISCHEMIC CARDIOMYOPATHY; I42.0 - DILATED CARDIOMYOPATHY (9) PVD (peripheral vascular disease) Code(s): I73.9 - PERIPHERAL VASCULAR DISEASE, UNSPECIFIED (10) S/P CABG (coronary artery bypass graft) Code(s): Z95.1 - PRESENCE OF AORTOCORONARY BYPASS GRAFT (11) S/P peripheral artery angioplasty with stent placement Code(s): Z95.820 - PERIPHERAL VASCULAR ANGIOPLASTY STATUS W IMPLANTS AND GRAFTS (12) Steal syndrome of dialysis vascular access Code(s): T82.898A - OTH COMPLICATION OF VASCULAR PROSTH DEV/GRFT, INIT Qualifiers: Encounter type: sequela Qualified Code(s): T82.898S - Other specified complication of vascular prosthetic devices, implants and grafts, sequela (13) Status post amputation of left great toe Code(s): Z89.412 - ACQUIRED ABSENCE OF LEFT GREAT TOE Assessment/Plan 1. Hematuria resolved, suspect UTI 2. PAD s/p SFA stent s/p left toe amputation 3. Acute on Chronic Systolic Heart Failure referable to ischemic dilated cardiomyopathy/severe LV systolic dysfunction 4. CAD post remote [place] post CABG angina pectoris 5. Post prophylactic ICD implant (Medtronic device) 6. HTN/HCVD 7. IDDM 8. Hypercholesterolemia 9. ESRD on HD, right AVG with steal and hyperkalemia resolved 10. Anemia of CKD 11. Hypothyroidism 12. History of GI bleed PLAN: 1. HD and IV diuresis per renal with monitor diuretic response and electrolytes , completed empiric antibiotic course 2. Urology recommended outpatient cystoscopy 3. Continue ASA 81 qd, Toprol XL 50 mg QD, and Lipitor 80 mg QHS. Resumed Entresto 24/26 bid as hyperkalemia resolved with uptitration as hemodynamics tolerate 4. DVT and GI prophylaxis 5. Wound care
[2018-12-17] MEDS ORDERED: FUROSEMIDE 40 MG/4 ML INJECTABLE VIAL IVPUSH ONE (11:34)
--- NOTE | 2018-12-17 13:13 | PN ---
Progress Note (short form) - Note Progress Note: pt seen/ examined chart reviewed awake/ comfortable feels better decreased sob denies pain Vital Signs Temp 98.1 F 12/17/18 10:00 Pulse 79 12/17/18 10:00 Resp 18 12/17/18 10:00 BP 150/75 12/17/18 10:00 Pulse Ox 95 12/17/18 09:00 Intake & Output 12/16/18 12/17/18 12/17/18 23:59 11:59 23:59 Intake Total 850 Balance 850 Intake: Oral 850 Other: Voiding Method Urinal Urinal # Unmeasured Voids Void 1 1 Bowel Movement No Active Medications Acetaminophen (Tylenol -) 650 mg PO Q4H PRN PRN Reason: PAIN LEVEL 1 - 3 Last Admin: 12/15/18 03:27 Dose: 650 mg Albuterol Sulfate (Ventolin 0.083% Nebulizer Soln -) 1 amp NEB Q4H PRN PRN Reason: Dyspnea Aspirin (Asa -) 81 mg PO DAILY [facility] Last Admin: 12/17/18 09:28 Dose: 81 mg Atorvastatin Calcium (Lipitor -) 80 mg PO [facility] Last Admin: 12/16/18 22:30 Dose: 80 mg Calcium Acetate (Phoslo -) 667 mg PO TIDCM [facility] Last Admin: 12/17/18 12:03 Dose: 667 mg Cholecalciferol (Vitamin D3 -) 1,000 unit PO DAILY [facility] Last Admin: 12/17/18 09:28 Dose: 1,000 unit Insulin Aspart (Novolog Vial Sliding Scale -) [facility] Protocol Last Admin: 12/17/18 06:28 Dose: 2 units Insulin Detemir (Levemir Vial) 5 units SQ [facility] Last Admin: 12/16/18 22:31 Dose: 5 units Levothyroxine Sodium (Synthroid -) 25 mcg PO DAILY@0700 [facility] Last Admin: 12/17/18 06:28 Dose: 25 mcg Melatonin (Melatonin) 3 mg PO [facility] Last Admin: 12/16/18 22:31 Dose: 3 mg Metoprolol Succinate (Toprol Xl -) 50 mg PO DAILY [facility] Last Admin: 12/17/18 09:27 Dose: 50 mg Multivit/Ca Carb/B Cmplx/FA/Prenat (Nephro-Misty -) 1 tablet PO DAILY [facility] Last Admin: 12/17/18 09:28 Dose: 1 tablet Pantoprazole Sodium (Protonix -) 40 mg PO DAILY [facility] Last Admin: 12/17/18 09:28 Dose: 40 mg Polyethylene Glycol (Miralax (For Daily Use) -) 17 gm PO DAILY [facility] Last Admin: 12/17/18 09:29 Dose: 17 gm Sacubitril/Valsartan (Entresto 24 Mg-26 Mg Tablet) 1 tab PO BID [facility] Last Admin: 12/17/18 09:29 Dose: 1 tab Senna (Senna -) 1 tab PO HS [facility] Last Admin: 12/16/18 22:30 Dose: 1 tab Sertraline HCl (Zoloft -) 50 mg PO HS [facility] Last Admin: 12/16/18 22:31 Dose: 50 mg Vitamin A/Vitamin D (Vitamin A & D Top Oint -) 1 applic TP TID [facility] Last Admin: 12/17/18 06:28 Dose: Not Given CBC, BMP 12/15/18 07:15 12/15/18 07:15 Physical Exam. S1 S2 RRR Lungs -- diminished at bases Abd- soft, NT no edema Left foot-- toe amputation site is healed, clean, no erythema on distal potion- no tenderness, no warmth PLAN CXR - congested got lasix again today dialysis per jack observe off antibiotics monitor today if stable- consider d/c in am Problem List - Problems (1) Cellulitis Code(s): L03.90 - CELLULITIS, UNSPECIFIED Qualifiers: Site of cellulitis: extremity Site of cellulitis of extremity: lower extremity Laterality: left Qualified Code(s): L03.116 - Cellulitis of left lower limb (2) Hematuria Code(s): R31.9 - HEMATURIA, UNSPECIFIED Qualifiers: Hematuria type: gross Qualified Code(s): R31.0 - Gross hematuria (3) ASHD (arteriosclerotic heart disease) Code(s): I25.10 - ATHSCL HEART DISEASE OF [place] CORONARY ARTERY W/O ANG PCTRS (4) Chronic HFrEF (heart failure with reduced ejection fraction) Code(s): I50.22 - CHRONIC SYSTOLIC (CONGESTIVE) HEART FAILURE (5) Diabetes Code(s): E11.9 - TYPE 2 DIABETES MELLITUS WITHOUT COMPLICATIONS Qualifiers: Diabetes mellitus type: type 2 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 use Diabetes mellitus complication status: with neurologic complications (6) ESRD (end stage renal disease) on dialysis Code(s): N18.6 - END STAGE RENAL DISEASE; Z99.2 - DEPENDENCE ON RENAL DIALYSIS (7) Hepatitis C antibody test positive Code(s): R76.8 - OTHER SPECIFIED ABNORMAL IMMUNOLOGICAL FINDINGS IN SERUM (8) ICD (implantable cardioverter-defibrillator) in place Code(s): Z95.810 - PRESENCE OF AUTOMATIC (IMPLANTABLE) CARDIAC DEFIBRILLATOR (9) S/P CABG (coronary artery bypass graft) Code(s): Z95.1 - PRESENCE OF AORTOCORONARY BYPASS GRAFT (10) Status post amputation of left great toe Code(s): Z89.412 - ACQUIRED ABSENCE OF LEFT GREAT TOE
--- NOTE | 2018-12-17 14:05 | PN ---
Progress Note, Physician History of Present Illness: Pt seen and examined at bedside. He is awake and alert. He does get shortness of breath with ambulation. He denies hematuria. - Current Medication List Current Medications: Active Medications Acetaminophen (Tylenol -) 650 mg PO Q4H PRN PRN Reason: PAIN LEVEL 1 - 3 Last Admin: 12/15/18 03:27 Dose: 650 mg Albuterol Sulfate (Ventolin 0.083% Nebulizer Soln -) 1 amp NEB Q4H PRN PRN Reason: Dyspnea Aspirin (Asa -) 81 mg PO DAILY [facility] Last Admin: 12/17/18 09:28 Dose: 81 mg Atorvastatin Calcium (Lipitor -) 80 mg PO HS [facility] Last Admin: 12/16/18 22:30 Dose: 80 mg Calcium Acetate (Phoslo -) 667 mg PO TIDCM [facility] Last Admin: 12/17/18 12:03 Dose: 667 mg Cholecalciferol (Vitamin D3 -) 1,000 unit PO DAILY [facility] Last Admin: 12/17/18 09:28 Dose: 1,000 unit Insulin Aspart (Novolog Vial Sliding Scale -) 1 vial SQ BIDAC [facility]; Protocol Last Admin: 12/17/18 06:28 Dose: 2 units Insulin Detemir (Levemir Vial) 5 units SQ [facility] Last Admin: 12/16/18 22:31 Dose: 5 units Levothyroxine Sodium (Synthroid -) 25 mcg PO DAILY@0700 [facility] Last Admin: 12/17/18 06:28 Dose: 25 mcg Melatonin (Melatonin) 3 mg PO HS [facility] Last Admin: 12/16/18 22:31 Dose: 3 mg Metoprolol Succinate (Toprol Xl -) 50 mg PO DAILY [facility] Last Admin: 12/17/18 09:27 Dose: 50 mg Multivit/Ca Carb/B Cmplx/FA/Prenat (Nephro-Misty -) 1 tablet PO DAILY [facility] Last Admin: 12/17/18 09:28 Dose: 1 tablet Pantoprazole Sodium (Protonix -) 40 mg PO DAILY [facility] Last Admin: 12/17/18 09:28 Dose: 40 mg Polyethylene Glycol (Miralax (For Daily Use) -) 17 gm PO DAILY [facility] Last Admin: 12/17/18 09:29 Dose: 17 gm Sacubitril/Valsartan (Entresto 24 Mg-26 Mg Tablet) 1 tab PO BID [facility] Last Admin: 12/17/18 09:29 Dose: 1 tab Senna (Senna -) 1 tab PO [facility] Last Admin: 12/16/18 22:30 Dose: 1 tab Sertraline HCl (Zoloft -) 50 mg PO [facility] Last Admin: 12/16/18 22:31 Dose: 50 mg Vitamin A/Vitamin D (Vitamin A & D Top Oint -) 1 applic TP TID [facility] Last Admin: 12/17/18 06:28 Dose: Not Given - Objective Vital Signs: Vital Signs Temperature 98.1 F 12/17/18 10:00 Pulse Rate 79 12/17/18 10:00 Respiratory Rate 18 12/17/18 10:00 Blood Pressure 150/75 12/17/18 10:00 O2 Sat by Pulse Oximetry (%) 95 12/17/18 09:00 Constitutional: Yes: Calm Eyes: Yes: Conjunctiva Clear HENT: Yes: Atraumatic Neck: Yes: Supple Cardiovascular: Yes: S1, S2 Respiratory: Yes: CTA Bilaterally Gastrointestinal: Yes: Soft Genitourinary: Yes: WNL Musculoskeletal: Yes: WNL Edema: No Wound/Incision: Yes: Open to air Neurological: Yes: Oriented Psychiatric: Yes: Oriented Labs: CBC, BMP 12/15/18 07:15 12/15/18 07:15 INR, PTT INR 1.06 (0.83-1.09) 12/09/18 12:42 Problem List - Problems (1) Cellulitis Code(s): L03.90 - CELLULITIS, UNSPECIFIED Qualifiers: Site of cellulitis: extremity Site of cellulitis of extremity: lower extremity Laterality: left Qualified Code(s): L03.116 - Cellulitis of left lower limb (2) Hematuria Code(s): R31.9 - HEMATURIA, UNSPECIFIED Qualifiers: Hematuria type: gross Qualified Code(s): R31.0 - Gross hematuria (3) Anemia Code(s): D64.9 - ANEMIA, UNSPECIFIED (4) COPD (chronic obstructive pulmonary disease) Code(s): J44.9 - CHRONIC OBSTRUCTIVE PULMONARY DISEASE, UNSPECIFIED Qualifiers: (5) ESRD (end stage renal disease) Code(s): N18.6 - END STAGE RENAL DISEASE Assessment/Plan Current Medications Generic Name Dose Route Start Last Admin Trade Name Freq PRN Reason Stop Dose Admin Acetaminophen 650 mg 12/09/18 15:52 12/15/18 03:27 Tylenol - PO 650 mg Q4H PRN Administration PAIN LEVEL 1 - 3 Albuterol Sulfate 1 amp 12/09/18 15:52 Ventolin 0.083% Nebulizer Soln - NEB Q4H PRN Dyspnea Aspirin 81 mg 12/10/18 10:00 12/17/18 09:28 Asa - PO 81 mg DAILY [facility] Administration Atorvastatin Calcium 80 mg 12/09/18 22:00 12/16/18 22:30 Lipitor - PO 80 mg HS [facility] Administration Calcium Acetate 667 mg 12/09/18 17:30 12/17/18 12:03 Phoslo - PO 667 mg TIDCM [facility] Administration Cholecalciferol 1,000 unit 12/10/18 10:00 12/17/18 09:28 Vitamin D3 - PO 1,000 unit DAILY [facility] Administration Insulin Aspart 1 vial 12/09/18 16:30 12/17/18 06:28 Novolog Vial Sliding Scale - SQ 2 units BIDAC [facility] Administration Protocol Insulin Detemir 5 units 12/10/18 22:00 12/16/18 22:31 Levemir Vial SQ 5 units HS [facility] Administration Levothyroxine Sodium 25 mcg 12/10/18 07:00 12/17/18 06:28 Synthroid - PO 25 mcg DAILY@0700 [facility] Administration Melatonin 3 mg 12/09/18 22:00 12/16/18 22:31 Melatonin PO 3 mg HS [facility] Administration Metoprolol Succinate 50 mg 12/14/18 11:15 12/17/18 09:27 Toprol Xl - PO 50 mg DAILY [facility] Administration Multivit/Ca Carb/B Cmplx/FA/Prenat 1 tablet 12/10/18 10:00 12/17/18 09:28 Nephro-Misty - PO 1 tablet DAILY [facility] Administration Pantoprazole Sodium 40 mg 12/10/18 10:00 12/17/18 09:28 Protonix - PO 40 mg DAILY [facility] Administration Polyethylene Glycol 17 gm 12/14/18 10:30 12/17/18 09:29 Miralax (For Daily Use) - PO 17 gm DAILY [facility] Administration Sacubitril/Valsartan 1 tab 12/16/18 22:00 12/17/18 09:29 Entresto 24 Mg-26 Mg Tablet PO 1 tab BID [facility] Administration Senna 1 tab 12/09/18 22:00 12/16/18 22:30 Senna - PO 1 tab HS [facility] Administration Sertraline HCl 50 mg 12/09/18 22:00 12/16/18 22:31 Zoloft - PO 50 mg HS [facility] Administration Vitamin A/Vitamin D 1 applic 12/09/18 22:00 12/17/18 06:28 Vitamin A & D Top Oint - TP Not Given TID [facility] Impression 1. ESRD 2. hx hemoptysis 3. DM 4. CAD 5. PVD 6. DFU 7. anemia 8. hx steal syndrome s/p DRIL procedure 9. CHF 10. pulmonary nodules 11. hematuria 12. hyperkalemia Plan - HD tomorrow - heparin restarted on HD at lower dose - renal diet - cardio input appreciated - 2 k bath 1000 heparin bolus 500 maintenance, RUE fistula, 3 30, hectorol 1 mcg
[2018-12-17] MEDS: ATORVASTATIN CA 80 MG TABLET (FP) PO SCH (21:45)
[2018-12-17] MEDS: INSULIN (LEVEMIR) 100 UNITS/ML UNITS SQ SCH (21:45)
[2018-12-17] MEDS: SERTRALINE HCL 50 MG TABLET (FP) PO SCH (21:46)
[2018-12-17] MEDS: SENNOSIDES 8.6MG TABLET (FP) PO SCH (21:46)
[2018-12-17] MEDS: MELATONIN 1 MG TABLET PO SCH (21:46)
[2018-12-18] MEDS: LEVOTHYROXINE NA 25 MCG TABLET (FP) PO SCH (06:42)
[2018-12-18] MEDS: INSULIN SLIDING SCALE (NOVOLOG) 1 VIAL SQ SCH (06:42)
[2018-12-18] MEDS: VITAMINS A AND D TOPICAL OINTMENT 60 GM TUBE TP SCH ×2 (06:43→14:40)
[2018-12-18] MEDS ORDERED: PT OWN MED DRAWER 7, Y5N ONE (09:42)
[2018-12-18] MEDS: CALCIUM ACETATE 667 MG CAPSULE (FP) PO SCH ×2 (09:45→14:39)
[2018-12-18] MEDS ORDERED: SODIUM CHLORIDE 250 ML IV PRN (10:00)
[2018-12-18] MEDS ORDERED: HEPARIN NA (PORCINE) 5,000 UNITS/ML 1ML VIAL IVPUSH ONE (10:00)
[2018-12-18] MEDS ORDERED: PARICALCITOL 5 MCG/ML VIAL IVPUSH ONE (10:00)
[2018-12-18 10:39] LABS: HEMATOCRIT 31.4 % (35.4-49); HEMOGLOBIN 10.8 GM/dL (11.7-16.9); MCH 31.6 pg (25.7-33.7); MCHC 34.3 g/dl (32.0-35.9); PLATELET COUNT 204 K/MM3 (134-434); RBC 3.41 M/mm3 (4.00-5.60); RDW 15.7 % (11.9-15.9); WHITE BLOOD COUNT 8.9 K/mm3 (4.0-10.0)
[2018-12-18] MEDS: ASPIRIN 81 MG CHEWABLE TABLETS PO SCH ×2 (11:15→14:39)
[2018-12-18] MEDS: SACUBITRIL/VALSARTAN 24 MG-26 MG TABLET PO SCH (11:16)
[2018-12-18] MEDS: VITAMIN B COMP W-C 1 EA TABLET PO SCH ×2 (11:16→14:39)
[2018-12-18] MEDS: POLYETHYLENE GLYCOL 3350 119 GM BTL PO SCH (11:16)
[2018-12-18] MEDS: CHOLECALCIFEROL (VITAMIN D3) 1,000 UNIT TABLET (FP) PO SCH ×2 (11:16→14:39)
[2018-12-18] MEDS: PANTOPRAZOLE 40 MG TABLET (FP) PO SCH ×2 (11:16→14:39)
[2018-12-18 11:26] LABS: ANION GAP 12 MMOL/L (8-16); BLOOD UREA NITROGEN 77 mg/dL (7-18); CHLORIDE 101 mmol/L (98-107); CO2 25 mmol/L (21-32); GLUCOSE,RANDOM 166 mg/dL (74-106); POTASSIUM 4.6 mmol/L (3.5-5.1); SODIUM 138 mmol/L (136-145)
[2018-12-18 11:28] VITALS: TEMP 97.9
[2018-12-18 11:41] LABS: CALCIUM 6.9 mg/dL (8.5-10.1); CREATININE 9.1 mg/dL (0.55-1.3)
--- NOTE | 2018-12-18 11:48 | PN ---
Problem List - Problems (1) Cellulitis Code(s): L03.90 - CELLULITIS, UNSPECIFIED Qualifiers: Site of cellulitis: extremity Site of cellulitis of extremity: lower extremity Laterality: left Qualified Code(s): L03.116 - Cellulitis of left lower limb (2) Hematuria Code(s): R31.9 - HEMATURIA, UNSPECIFIED Qualifiers: Hematuria type: gross Qualified Code(s): R31.0 - Gross hematuria (3) UTI (urinary tract infection) Code(s): N39.0 - URINARY TRACT INFECTION, SITE NOT SPECIFIED (4) ASHD (arteriosclerotic heart disease) Code(s): I25.10 - ATHSCL HEART DISEASE OF [place] CORONARY ARTERY W/O ANG PCTRS (5) CHF (congestive heart failure), NYHA class IV Code(s): I50.9 - HEART FAILURE, UNSPECIFIED Qualifiers: Congestive heart failure type: systolic Congestive heart failure chronicity : chronic Qualified Code(s): I50.22 - Chronic systolic (congestive) heart failure (6) Diabetes Code(s): E11.9 - TYPE 2 DIABETES MELLITUS WITHOUT COMPLICATIONS Qualifiers: Diabetes mellitus type: type 2 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
--- NOTE | 2018-12-18 12:03 | DS ---
Physical Examination Vital Signs: Vital Signs Temperature 97.9 F 12/18/18 09:00 Pulse Rate 81 12/18/18 11:00 Respiratory Rate 18 12/18/18 11:00 Blood Pressure 171/73 H 12/18/18 11:00 O2 Sat by Pulse Oximetry (%) 95 12/17/18 21:00 Constitutional: Yes: No Distress, Calm Cardiovascular: Yes: Regular Rate and Rhythm Respiratory: Yes: Diminished Gastrointestinal: Yes: Normal Bowel Sounds, Soft. No: Tenderness Extremities: No: Erythema Edema: No Labs: CBC, BMP 12/18/18 10:15 12/18/18 10:15 Discharge Summary Reason For Visit: HEMATURIA,CELLULITIS,ESRD Current Active Problems Cellulitis (Acute) Hematuria (Acute) UTI (urinary tract infection) (Acute) Hospital Course: - Admission History of Present Illness: pt seen/ examined chart reviewed case was discussed with er resident last night was send to er by raleigh Rainey Per Er records 72 year old male with male with PMH of PMH significant for CAD s/p CABG, HTN, HLD, hypothyroidism, PVD, ESRD on HD (//Mon), hx of osteomyelitis (s/p left first toe amputation), DM, pacemaker placement who presents in the ED from [facility] for gross hematuria for two occurrences and left foot erythema and warmth. States that he went to urinate today and he had painless red "bloody" urine then had another episode an hour later. He has never had this color urine before and denies any genital pain, flank pain, or abdominal pain. He also noticed some erythema of the site of his amputation that was performed 4-[address] Nieves. States that he felt some pain and noticed very mild numbness ar the amputation stump. This morning the pain has worsened and the erythema has spread up to the middle of foot. Denies fevers, chills, nausea, vomiting, diarrhea, chills, or other symptoms. HOSPITAL COURSE Was evaluated by , cardiology, Renal and ID Completed antibiotics for cellulitis of left foot No further pain no diarrhea DC plavix per Cardiology Continue with ASA Entresto low dose started Pt also became SOB, CXR-- congestion-- pt received iv lasix -- better Now will be on PO lasix 40mg on non dialysis days Urology-- urine has cleared up-- will need cystoscopy as outpt spoke with Moises Rico-- she is aware of plan Follow ups-- Urology- DR powell for cystoscopy Cardiology-- DR Florentino Wilson Podiatry-- DR Briceño Diagnosis- Cellulitis Acute on chronic systolic congestive heart failure ESRD on HD PAD/PVD Hematuria - Instructions Referrals: Wm Powell MD [Staff Physician] - 2 Weeks (cystoscopy ) Florentino Wilson MD [Staff Physician] - 2 Weeks Deandra Briceño DPM [Staff Physician] - 2 Weeks [facility]position[facility] - Home Medications Comprehensive Discharge Medication List: Ambulatory Orders Acetaminophen 650 mg PO Q4H PRN 02/28/18 Aspirin [ASA -] 81 mg PO DAILY 02/28/18 Atorvastatin Ca [Lipitor] 80 mg PO HS 02/28/18 Calcium Acetate [Phoslo -] 667 mg PO TIDCM 02/28/18 Clopidogrel Bisulfate [Plavix -] 75 mg PO DAILY 02/28/18 Levothyroxine [Synthroid -] 25 mcg PO DAILY 02/28/18 Metoprolol Succinate [Toprol Xl] 150 mg PO DAILY 02/28/18 Pantoprazole Sodium 40 mg PO DAILY 02/28/18 Sennosides [Senna -] 1 tab PO HS 02/28/18 Sertraline HCl [Zoloft -] 50 mg PO HS 02/28/18 Albuterol 0.083% Nebulizer Yessi [Ventolin 0.083% Nebulizer Soln -] 1 amp IN Q8H PRN 03/28/18 Melatonin 3 mg PO HS 04/21/18 Cholecalciferol (Vitamin D3) [Vitamin D3] 1,000 unit PO DAILY 07/13/18 Insulin Sliding Scale [Novolog Vial Sliding Scale -] 0 units SQ BID 07/13/18 Vitamin B Comp W-C [Nephro-Misty -] 1 tablet PO DAILY 07/13/18 Vit A/Vitamin D3/E/Aloe V/Zinc [Periguard Ointment] 5 gm TP TID 07/14/18
[2018-12-18 13:46] VITALS: BMI 22.7
--- NOTE | 2018-12-18 14:09 | PN ---
Progress Note, Physician Chief Complaint: Events noted Being dialyzed Intermittent dyspnea History of Present Illness: Patient was seen and examined. Awake and alert. Chart was reviewed Denies chest pain or palpitations As outlined - Current Medication List Current Medications: Active Medications Acetaminophen (Tylenol -) 650 mg PO Q4H PRN PRN Reason: PAIN LEVEL 1 - 3 Last Admin: 12/15/18 03:27 Dose: 650 mg Albuterol Sulfate (Ventolin 0.083% Nebulizer Soln -) 1 amp NEB Q4H PRN PRN Reason: Dyspnea Aspirin (Asa -) 81 mg PO DAILY [facility] Last Admin: 12/18/18 11:15 Dose: Not Given Atorvastatin Calcium (Lipitor -) 80 mg PO HS [facility] Last Admin: 12/17/18 21:45 Dose: 80 mg Calcium Acetate (Phoslo -) 667 mg PO TIDCM [facility] Last Admin: 12/18/18 09:45 Dose: 667 mg Cholecalciferol (Vitamin D3 -) 1,000 unit PO DAILY [facility] Last Admin: 12/18/18 11:16 Dose: Not Given Insulin Aspart (Novolog Vial Sliding Scale -) 1 vial SQ BIDAC [facility]; Protocol Last Admin: 12/18/18 06:42 Dose: 2 units Insulin Detemir (Levemir Vial) 5 units SQ [facility] Last Admin: 12/17/18 21:45 Dose: 5 units Levothyroxine Sodium (Synthroid -) 25 mcg PO DAILY@0700 [facility] Last Admin: 12/18/18 06:42 Dose: 25 mcg Melatonin (Melatonin) 3 mg PO HS [facility] Last Admin: 12/17/18 21:46 Dose: 3 mg Metoprolol Succinate (Toprol Xl -) 50 mg PO DAILY [facility] Last Admin: 12/18/18 11:16 Dose: Not Given Multivit/Ca Carb/B Cmplx/FA/Prenat (Nephro-Misty -) 1 tablet PO DAILY [facility] Last Admin: 12/18/18 11:16 Dose: Not Given Pantoprazole Sodium (Protonix -) 40 mg PO DAILY [facility] Last Admin: 12/18/18 11:16 Dose: Not Given Polyethylene Glycol (Miralax (For Daily Use) -) 17 gm PO DAILY [facility] Last Admin: 12/18/18 11:16 Dose: Not Given Sacubitril/Valsartan (Entresto 24 Mg-26 Mg Tablet) 1 tab PO BID [facility] Last Admin: 12/18/18 11:16 Dose: Not Given Senna (Senna -) 1 tab PO [facility] Last Admin: 12/17/18 21:46 Dose: 1 tab Sertraline HCl (Zoloft -) 50 mg PO [facility] Last Admin: 12/17/18 21:46 Dose: 50 mg Vitamin A/Vitamin D (Vitamin A & D Top Oint -) 1 applic TP TID [facility] Last Admin: 12/18/18 06:43 Dose: Not Given - Objective Vital Signs: Vital Signs Temperature 97.9 F 12/18/18 09:00 Pulse Rate 81 12/18/18 12:00 Respiratory Rate 18 12/18/18 12:00 Blood Pressure 175/78 H 12/18/18 12:00 O2 Sat by Pulse Oximetry (%) 95 12/17/18 21:00 HENT: Yes: Atraumatic Neck: Yes: Supple Cardiovascular: Yes: Regular Rate and Rhythm, S1, S2 Respiratory: Yes: Diminished Gastrointestinal: Yes: Normal Bowel Sounds, Soft. No: Tenderness Edema: No Labs: CBC, BMP 12/18/18 10:15 12/18/18 10:15 Problem List - Problems (1) Cellulitis Code(s): L03.90 - CELLULITIS, UNSPECIFIED Qualifiers: Site of cellulitis: extremity Site of cellulitis of extremity: lower extremity Laterality: left Qualified Code(s): L03.116 - Cellulitis of left lower limb (2) Hematuria Code(s): R31.9 - HEMATURIA, UNSPECIFIED Qualifiers: Hematuria type: gross Qualified Code(s): R31.0 - Gross hematuria (3) UTI (urinary tract infection) Code(s): N39.0 - URINARY TRACT INFECTION, SITE NOT SPECIFIED (4) ASHD (arteriosclerotic heart disease) Code(s): I25.10 - ATHSCL HEART DISEASE OF [place] CORONARY ARTERY W/O ANG PCTRS (5) Acute on chronic systolic (congestive) heart failure Code(s): I50.23 - ACUTE ON CHRONIC SYSTOLIC (CONGESTIVE) HEART FAILURE (6) Anemia Code(s): D64.9 - ANEMIA, UNSPECIFIED (7) COPD (chronic obstructive pulmonary disease) Code(s): J44.9 - CHRONIC OBSTRUCTIVE PULMONARY DISEASE, UNSPECIFIED Qualifiers: (8) Diabetes Code(s): E11.9 - TYPE 2 DIABETES MELLITUS WITHOUT COMPLICATIONS Qualifiers: Diabetes mellitus type: type 2 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 long term 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 social worker use Diabetes mellitus complication status: with neurologic complications (9) ESRD (end stage renal disease) on dialysis Code(s): N18.6 - END STAGE RENAL DISEASE; Z99.2 - DEPENDENCE ON RENAL DIALYSIS (10) HTN (hypertension) Code(s): I10 - ESSENTIAL (PRIMARY) HYPERTENSION Qualifiers: Hypertension type: essential hypertension Qualified Code(s): I10 - Essential (primary) hypertension (11) Hyperkalemia Code(s): E87.5 - HYPERKALEMIA (12) ICD (implantable cardioverter-defibrillator) in place Code(s): Z95.810 - PRESENCE OF AUTOMATIC (IMPLANTABLE) CARDIAC DEFIBRILLATOR (13) Ischemic dilated cardiomyopathy Code(s): I25.5 - ISCHEMIC CARDIOMYOPATHY; I42.0 - DILATED CARDIOMYOPATHY (14) PVD (peripheral vascular disease) Code(s): I73.9 - PERIPHERAL VASCULAR DISEASE, UNSPECIFIED (15) S/P CABG (coronary artery bypass graft) Code(s): Z95.1 - PRESENCE OF AORTOCORONARY BYPASS GRAFT (16) S/P peripheral artery angioplasty with stent placement Code(s): Z95.820 - PERIPHERAL VASCULAR ANGIOPLASTY STATUS W IMPLANTS AND GRAFTS (17) Status post amputation of left great toe Code(s): Z89.412 - ACQUIRED ABSENCE OF LEFT GREAT TOE Assessment/Plan 1. Hematuria resolved 2. PAD s/p SFA stent s/p left toe amputation 3. Chronic Systolic Heart Failure referable to ischemic dilated cardiomyopathy/ severe LV systolic dysfunction 4. CAD post remote AL post CABG angina pectoris 5. Post prophylactic ICD implant ([employer] device) 6. HTN/HCVD 7. IDDM 8. Hypercholesterolemia 9. ESRD on HD, right AVG with steal and hyperkalemia 10. Anemia of CKD 11. Hypothyroidism 12. History of GI bleed PLAN: 1. HD per nephrology 2. Urology recommended outpatient cystoscopy 3. Continue Toprol XL 150 mg QD, and Lipitor 80 mg QHS. Entresto and monitor renal function 4. Continue ASA 81 qd 5. DVT and GI prophylaxis Jarocho Rendon MD
[2018-12-18 14:31] VITALS: BP 141/75; PULSE 87
--- NOTE | 2018-12-18 16:07 | PN ---
Progress Note, Physician History of Present Illness: Pt seen and examined at bedside. He is awake and alert. He tolerated HD today. - Current Medication List Current Medications: Active Medications Acetaminophen (Tylenol -) 650 mg PO Q4H PRN PRN Reason: PAIN LEVEL 1 - 3 Last Admin: 12/15/18 03:27 Dose: 650 mg Albuterol Sulfate (Ventolin 0.083% Nebulizer Soln -) 1 amp NEB Q4H PRN PRN Reason: Dyspnea Aspirin (Asa -) 81 mg PO DAILY [facility] Last Admin: 12/18/18 14:39 Dose: 81 mg Atorvastatin Calcium (Lipitor -) 80 mg PO HS [facility] Last Admin: 12/17/18 21:45 Dose: 80 mg Calcium Acetate (Phoslo -) 667 mg PO TIDCM [facility] Last Admin: 12/18/18 14:39 Dose: 667 mg Cholecalciferol (Vitamin D3 -) 1,000 unit PO DAILY [facility] Last Admin: 12/18/18 14:39 Dose: 1,000 unit Insulin Aspart (Novolog Vial Sliding Scale -) [facility] Last Admin: 12/18/18 06:42 Dose: 2 units Insulin Detemir (Levemir Vial) 5 units SQ [facility] Last Admin: 12/17/18 21:45 Dose: 5 units Levothyroxine Sodium (Synthroid -) 25 mcg PO DAILY@0700 [facility] Last Admin: 12/18/18 06:42 Dose: 25 mcg Melatonin (Melatonin) 3 mg PO HS [facility] Last Admin: 12/17/18 21:46 Dose: 3 mg Metoprolol Succinate (Toprol Xl -) 50 mg PO DAILY [facility] Last Admin: 12/18/18 14:39 Dose: 50 mg Multivit/Ca Carb/B Cmplx/FA/Prenat (Nephro-Misty -) 1 tablet PO DAILY [facility] Last Admin: 12/18/18 14:39 Dose: 1 tablet Pantoprazole Sodium (Protonix -) 40 mg PO DAILY [facility] Last Admin: 12/18/18 14:39 Dose: 40 mg Polyethylene Glycol (Miralax (For Daily Use) -) 17 gm PO DAILY [facility] Last Admin: 12/18/18 11:16 Dose: Not Given Sacubitril/Valsartan (Entresto 24 Mg-26 Mg Tablet) 1 tab PO BID [facility] Last Admin: 12/18/18 11:16 Dose: Not Given Senna (Senna -) 1 tab PO HS [facility] Last Admin: 12/17/18 21:46 Dose: 1 tab Sertraline HCl (Zoloft -) 50 mg PO [facility] Last Admin: 12/17/18 21:46 Dose: 50 mg Vitamin A/Vitamin D (Vitamin A & D Top Oint -) 1 applic TP TID [facility] Last Admin: 12/18/18 14:40 Dose: 1 applic - Objective Vital Signs: Vital Signs Temperature 97.9 F 12/18/18 14:30 Pulse Rate 87 12/18/18 14:30 Respiratory Rate 16 12/18/18 14:30 Blood Pressure 141/75 12/18/18 14:30 O2 Sat by Pulse Oximetry (%) 96 12/18/18 09:00 Constitutional: Yes: Calm Eyes: Yes: Conjunctiva Clear HENT: Yes: Atraumatic Neck: Yes: Supple Cardiovascular: Yes: S1, S2 Respiratory: Yes: CTA Bilaterally Gastrointestinal: Yes: Soft Genitourinary: Yes: WNL. No: Hematuria Musculoskeletal: Yes: WNL Edema: No Neurological: Yes: Oriented Psychiatric: Yes: Oriented Labs: CBC, BMP 12/18/18 10:15 12/18/18 10:15 INR, PTT INR 1.06 (0.83-1.09) 12/09/18 12:42 Problem List - Problems (1) Cellulitis Code(s): L03.90 - CELLULITIS, UNSPECIFIED Qualifiers: Site of cellulitis: extremity Site of cellulitis of extremity: lower extremity Laterality: left Qualified Code(s): L03.116 - Cellulitis of left lower limb (2) Hematuria Code(s): R31.9 - HEMATURIA, UNSPECIFIED Qualifiers: Hematuria type: gross Qualified Code(s): R31.0 - Gross hematuria (3) Anemia Code(s): D64.9 - ANEMIA, UNSPECIFIED (4) COPD (chronic obstructive pulmonary disease) Code(s): J44.9 - CHRONIC OBSTRUCTIVE PULMONARY DISEASE, UNSPECIFIED Qualifiers: (5) ESRD (end stage renal disease) Code(s): N18.6 - END STAGE RENAL DISEASE Assessment/Plan Current Medications Generic Name Dose Route Start Last Admin Trade Name Freq PRN Reason Stop Dose Admin Acetaminophen 650 mg 12/09/18 15:52 12/15/18 03:27 Tylenol - PO 650 mg Q4H PRN Administration PAIN LEVEL 1 - 3 Albuterol Sulfate 1 amp 12/09/18 15:52 Ventolin 0.083% Nebulizer Soln - NEB Q4H PRN Dyspnea Aspirin 81 mg 12/10/18 10:00 12/18/18 14:39 Asa - PO 81 mg DAILY [facility] Administration Atorvastatin Calcium 80 mg 12/09/18 22:00 12/17/18 21:45 Lipitor - PO 80 mg HS [facility] Administration Calcium Acetate 667 mg 12/09/18 17:30 12/18/18 14:39 Phoslo - PO 667 mg TIDCM [facility] Administration Cholecalciferol 1,000 unit 12/10/18 10:00 12/18/18 14:39 Vitamin D3 - PO 1,000 unit DAILY [facility] Administration Insulin Aspart 1 vial 12/09/18 16:30 12/18/18 06:42 Novolog Vial Sliding Scale - SQ 2 units BIDAC [facility] Administration Protocol Insulin Detemir 5 units 12/10/18 22:00 12/17/18 21:45 Levemir Vial SQ 5 units HS [facility] Administration Levothyroxine Sodium 25 mcg 12/10/18 07:00 12/18/18 06:42 Synthroid - PO 25 mcg DAILY@0700 [facility] Administration Melatonin 3 mg 12/09/18 22:00 12/17/18 21:46 Melatonin PO 3 mg HS [facility] Administration Metoprolol Succinate 50 mg 12/14/18 11:15 12/18/18 14:39 Toprol Xl - PO 50 mg DAILY [facility] Administration Multivit/Ca Carb/B Cmplx/FA/Prenat 1 tablet 12/10/18 10:00 12/18/18 14:39 Nephro-Imsty - PO 1 tablet DAILY [facility] Administration Pantoprazole Sodium 40 mg 12/10/18 10:00 12/18/18 14:39 Protonix - PO 40 mg DAILY [facility] Administration Polyethylene Glycol 17 gm 12/14/18 10:30 12/18/18 11:16 Miralax (For Daily Use) - PO Not Given DAILY [facility] Sacubitril/Valsartan 1 tab 12/16/18 22:00 12/18/18 11:16 Entresto 24 Mg-26 Mg Tablet PO Not Given BID [facility] Senna 1 tab 12/09/18 22:00 12/17/18 21:46 Senna - PO 1 tab HS [facility] Administration Sertraline HCl 50 mg 12/09/18 22:00 12/17/18 21:46 Zoloft - PO 50 mg HS [facility] Administration Vitamin A/Vitamin D 1 applic 12/09/18 22:00 12/18/18 14:40 Vitamin A & D Top Oint - TP 1 applic TID [facility] Administration Impression 1. ESRD 2. hx hemoptysis 3. DM 4. CAD 5. PVD 6. DFU 7. anemia 8. hx steal syndrome s/p DRIL procedure 9. CHF 10. pulmonary nodules 11. hematuria 12. hyperkalemia Plan - HD today - can give lasix on non HD days - discussed with medical team - renal diet - urology follow up as outpt - 2 k bath 1000 heparin bolus 500 maintenance, RUE fistula, 3 30, hectorol 1 mcg
== END 2018-12-18 17:07 | DRG 602 ==
LOC: JER 11:39 → JERBED 13:35 → J5S 17:12
PROVIDERS: ADMIT Internal Medicine; ATTEND Internal Medicine
PROC: 5A1D70Z Performance of Urinary Filtration, Intermittent, Less than 6 Hours Per Day (ICD-10-PCS; principal; 2018-12-18)
DX: L03.032 Cellulitis of left toe (principal); N18.6 End stage renal disease; I50.23 Acute on chronic systolic (congestive) heart failure; L03.116 Cellulitis of left lower limb; N39.0 Urinary tract infection, site not specified; I13.2 Hypertensive heart and chronic kidney disease with heart failure and with stage 5 chronic kidney disease, or end stage renal disease; R31.0 Gross hematuria; Z89.412 Acquired absence of left great toe; D63.1 Anemia in chronic kidney disease; J44.9 Chronic obstructive pulmonary disease, unspecified; E11.22 Type 2 diabetes mellitus with diabetic chronic kidney disease; I25.10 Atherosclerotic heart disease of native coronary artery without angina pectoris; E87.5 Hyperkalemia; R91.1 Solitary pulmonary nodule; I73.9 Peripheral vascular disease, unspecified; Z99.2 Dependence on renal dialysis; I25.5 Ischemic cardiomyopathy; Z95.1 Presence of aortocoronary bypass graft; E03.9 Hypothyroidism, unspecified; E78.5 Hyperlipidemia, unspecified
CPT/HCPCS: 36415; 71045-TC-FY; 73630-TC-LT; 76775-TC; 76856-TC; 80048; 80053; 81003; 81015; 82565; 82962; 83036; 84484; 84520; 84550; 85025; 85027; 85610; 85651; 86140; 86704; 86706; 86708; 86803; 86850; 86900; 86901; 87040; 87086; 87340; 90670; 93005; 93010; 99283-25; G0480; J1644

== ENCOUNTER 2019-05-10 20:25 | Emergency (ER) | payer OTHER ==
[2019-05-10 20:46] VITALS: PULSE 80; TEMP 98; BMI 22.6
--- NOTE | 2019-05-10 21:51 | PDOC ---
History of Present Illness - General Chief Complaint: Pain Stated Complaint: DISCOLORATION OF FOOT Time Seen by Provider: 05/10/19 21:50 Past History - Past Medical History Allergies/Adverse Reactions: Allergies Allergy/AdvReac Type Severity Reaction Status Date / Time oxycodone [From Percocet] Allergy Verified 05/10/19 20:46 gabapentin [From Neurontin] AdvReac Verified 05/10/19 20:46 Home Medications: Ambulatory Orders Acetaminophen 650 mg PO Q4H PRN 02/28/18 Aspirin [ASA -] 81 mg PO DAILY 02/28/18 Atorvastatin Ca [Lipitor] 80 mg PO HS 02/28/18 Calcium Acetate [Phoslo -] 667 mg PO TIDCM 02/28/18 Levothyroxine [Synthroid -] 25 mcg PO DAILY 02/28/18 Pantoprazole Sodium 40 mg PO DAILY 02/28/18 Sennosides [Senna -] 1 tab PO HS 02/28/18 Sertraline HCl [Zoloft -] 50 mg PO HS 02/28/18 Albuterol 0.083% Nebulizer Yessi [Ventolin 0.083% Nebulizer Soln -] 1 amp IN Q8H PRN 03/28/18 Melatonin 3 mg PO HS 04/21/18 Cholecalciferol (Vitamin D3) [Vitamin D3] 1,000 unit PO DAILY 07/13/18 Insulin Sliding Scale [Novolog Vial Sliding Scale -] 0 units SQ BID 07/13/18 Vitamin B Comp W-C [Nephro-Misty -] 1 tablet PO DAILY 07/13/18 Vit A/Vitamin D3/E/Aloe V/Zinc [Periguard Ointment] 5 gm TP TID 07/14/18 Furosemide [Lasix -] 40 mg PO Q2D #30 tablet 12/18/18 Metoprolol Succinate [Toprol XL -] 50 mg PO DAILY #60 tab.sr.24h 12/18/18 Sacubitril/Valsartan [Entresto 24 mg-26 mg Tablet] 1 tab PO BID #60 tablet 12/18 Finasteride 1 tab PO DAILY 04/18/19 Cardiac Disorders: Yes (CAD, A Fib(no anticoag-Massive GI BLEED IN 06/2017), PPM) COPD: No CHF: Yes Dementia: Yes (pt verbalizing he is forgetful some times) Diabetes: Yes Dialysis: Yes GI Disorders: Yes (bleed) Disorders: Yes HTN: Yes Hypercholesterolemia: Yes Liver Disease: Yes (DIC) Psychiatric Problems: Yes (depression, dementia) Thyroid Disease: Yes (Hypothyroidism) - Surgical History Appendectomy: Yes Cardiac Surgery: Yes (CABG x 3, PPM, Defibrillator) Lung Surgery: Yes (repair of a whole in lung) Orthopedic Surgery: Yes (Right hip replacement) - Suicide/Smoking/Psychosocial Hx Smoking History: Never smoked Have you smoked in the past 12 months: No Number of Cigarettes Smoked Daily: 5 If you are a former smoker, when did you quit?: 2004 Cigars Per Day: 0 Information on smoking cessation initiated: No Hx Alcohol Use: No Drug/Substance Use Hx: No Substance Use Type: None Hx Substance Use Treatment: No *Physical Exam - Vital Signs Last Vital Signs Temp Pulse Resp BP Pulse Ox 98.0 F 80 17 149/62 95 05/10/19 20:40 05/10/19 20:40 05/10/19 20:40 05/10/19 20:40 05/10/19 20:40 ED Treatment Course - LABORATORY CBC & Chemistry Diagram: 05/10/19 23:15 05/10/19 23:15 Medical Decision Making - Medical Decision Making 72 year old male with male with PMH of PMH significant for PVD with angioplasty and stent to left SFA, hx of osteomyelitis (s/p left first toe amputation), AFib (only on 81mg ASA, plavix discontinued in December 2018 per cardiology), CAD s /p CABG, HTN, HLD, hypothyroidism, ESRD on HD (//Mon), DM, pacemaker placement who presents in the ED from [facility] for evaluation of dusky toe. Patient noticed the discoloration which worsened today. He states that he generally has pain in his bilateral feet, but the pain is somewhat worse in his left foot, now rated 6/10 especially when he walks. He has numbness and tingling in his feet at baseline. No fevers, chills, chest pain, or shortness of breath. PCP: Patient doesn't know, but may be Dr. Moshe Nur via chart review ROS: Constitutional: no fever, no chills HEENT: no throat pain, no dysphagia Cardiovascular: no chest pain, no palpitations Respiratory: no cough, no shortness of breath Gastrointestinal: no abdominal pain, no nausea Genitourinary: no dysuria, no hematuria Musculoskeletal: no myalgia, no arthralgia Skin: no wound, +discoloration of L. second toe Neurologic: no headache, no weakness PE: General: Awake, alert, and fully oriented, in no acute distress Head: No signs of trauma Eyes: EOMI, sclera anicteric ENT: Moist mucus membranes Neck: Normal ROM, supple Lungs: Lungs clear, Normal breath sounds Cardio: Irregular rhythm, S1 and S2 present Abdomen: Soft, nontender. No guarding, no rebound, no masses Extremities: Normal range of motion, Distal pulses present, Right AV fistula with audible thrill L. foot: amputated first toe, duskiness of second toe extending to area just proximal on top of foot. Palpable pulse. Foot is not cold. Does not appear infected. R. foot: without gross abnormality SKIN: Warm, Dry, normal turgor Neurologic: Cranial nerves II through XII grossly intact. Normal speech ED Courses/MDM: DDX including but not limited to vascular stenosis, claudication, cellulitis Labs, EKG, CXR Xray of L. foot 05/10/19 21:51 Updated [facility] at [facility] 05/10/19 23:16 Xray of L. foot without osteomyelitis, my impression Call to Dr. Nieves's service. Dr. Nieves is unavailable as he is on vacation. Patient will likely require transfer for vascular consult, if we do not have a vascular specialist available. 05/10/19 23:58 Call to Trisha GaryoyChela, patient's healthcare proxy, , per patient's request. Ms. Jonhston is amenable to our recommendations. Paging Dr. Dillard 05/11/19 00:[address] Dillard. He is not cushion installer. Plan to transfer patient. 05/11/19 00:[address] Harrington at [facility] who recommends medicine admission for the patient with vascular as a consult. Awaiting callback from transfer center. 05/11/19 00:[address] Capone who accepted patient for transfer, via ER to ER. Patient will be sent via BLS transport. Awaiting callback regarding transportation ETA 05/11/19 00:47 Patient signed out to night team 05/11/19 01:01 *DC/Admit/Observation/Transfer Diagnosis at time of Disposition: Discoloration of skin of toe - Discharge Dispostion Disposition: TRANSFER ACUTE CARE/OTHER HOSP Condition at time of disposition: Guarded - Referrals Referrals: Moshe Nur MD [Primary Care Provider] - - Patient Instructions - Post Discharge Activity - Transfer to Acute Care Facility Receiving Facility: [facility]. (accepting physician Dr. Capone)
--- NOTE | 2019-05-10 22:55 | PDOC ---
Documentation entered by Tonia Martinez SCRIBE, acting as scribe for Carlos Corona MD. Carlos Corona MD: This documentation has been prepared by the Michelle de leon Adrianna, SCRIBE, under my direction and personally reviewed by me in its entirety. I confirm that the documentation accurately reflects all work, treatment, procedures, and medical decision making performed by me. Attending Attestation - Resident Resident Name: Ophelia Anderson - HPI HPI: The patient is a 73 year old male, with a significant PMH of CAD (s/p CABG), HTN , HLD, Afib, hypothyroidism, PVD, COPD, ESRD on HD (T//Mon), osteomyelitis (s/ p left first toe amputation), DM, pacemaker placement [facility] of discoloration of the 2nd left toe for 2 days. Patient reports progressively worsening development of dusky discoloration of the 2nd left toe, with pain, numbness, and tingling that is worse than his baseline. Pain is exacerbated with walking. Patient reports poor circulation to this area secondary to surgeries. He does admit to completing dialysis yesterday. Allergies: oxycodone, gabapentin Surgical History: L first toe amputation, CABG, appendectomy, right total hip replacement Social History: Former smoker. Denies EtOH or illicit drug use PCP: Dr. Nru - Physicial Exam PE: 05/10/19 22:52 supine in stretcher nad speaking in full sentences rrr s1 s2 no mrg midline sternotomy scar CTAB soft nt nd L great toe amputation site clean L 2nd toe dusky in color with discoloration extending onto dorsum overlying 2nd metatarsal, clean ulceration at tip , no expressible purulence no surrounding erythema No surrounding erythema warmth or purulence decreased sensation to light touch - Medical Decision Making 05/10/19 22:54 vasculopath with prior amputation of L 1st toe concern for vascular insult to L 2nd toe no clear evidence of infenction on exam x ray vascular consult dispo per vascular
[2019-05-10 23:30] LABS: BASO % 0.9 % (0-2.0); EOS % 2.4 % (0-4.5); HEMATOCRIT 31.4 % (35.4-49); HEMOGLOBIN 10.5 GM/dL (11.7-16.9); LYMPH % 10.3 % (8-40); MCH 30.5 pg (25.7-33.7); MCHC 33.4 g/dl (32.0-35.9); MEAN CELL VOLUME 91.3 fl (80-96); MEAN PLT VOLUME 8.3 fl (7.5-11.1); MONO % 10.7 % (3.8-10.2); NEUT % 75.7 % (42.8-82.8); PLATELET COUNT 158 K/MM3 (134-434); RBC 3.44 M/mm3 (4.00-5.60); RDW 16.3 % (11.9-15.9); WHITE BLOOD COUNT 8.3 K/mm3 (4.0-10.0)
[2019-05-10 23:43] LABS: INR 1.03 (0.83-1.09); PROTHROMBIN TIME (PATIENT) 12.2 SEC (9.7-13.0)
[2019-05-10 23:46] LABS: ACTIVATED PTT 34.5 SECONDS (25.2-36.5)
[2019-05-11 00:06] LABS: ALBUMIN 3.9 g/dl (3.4-5.0); BILIRUBIN,TOTAL 0.5 mg/dL (0.2-1); CALCIUM 8.4 mg/dL (8.5-10.1); POTASSIUM 5.5 mmol/L (3.5-5.1); TOT PROT 7.2 g/dl (6.4-8.2)
[2019-05-11 00:09] LABS: CREATININE 7.5 mg/dL (0.55-1.3)
[2019-05-11 01:48] VITALS: BP 142/25
--- NOTE | 2019-05-12 09:06 | EKG ---
Test Reason : Blood Pressure : / mmHG Vent. Rate : 080 BPM Atrial Rate : 500 BPM P-R Int : 246 ms QRS Dur : 090 ms QT Int : 436 ms P-R-T Axes : 000 006 111 degrees QTc Int : 502 ms Atrial-paced rhythm with prolonged AV conduction NONSPECIFIC ST AND T WAVE ABNORMALITY PROLONGED QT ABNORMAL ECG WHEN COMPARED WITH ECG OF 09-DEC-2018 13:44, NO SIGNIFICANT CHANGE WAS FOUND Confirmed by ELIZABETH GAN MD ([id number]) on 05/12/2019 9:05:55 AM Referred By: Confirmed By:ELIZABETH GAN MD
== END 2019-05-11 04:45 | disposition short-term general hospital (02) ==
LOC: JER 20:25
DX: L81.8 Other specified disorders of pigmentation (principal); I25.10 Atherosclerotic heart disease of native coronary artery without angina pectoris; I13.2 Hypertensive heart and chronic kidney disease with heart failure and with stage 5 chronic kidney disease, or end stage renal disease; N18.6 End stage renal disease; I50.9 Heart failure, unspecified; Z99.2 Dependence on renal dialysis; Z95.1 Presence of aortocoronary bypass graft; I48.91 Unspecified atrial fibrillation; E11.21 Type 2 diabetes mellitus with diabetic nephropathy; Z79.4 Long term (current) use of insulin; E03.9 Hypothyroidism, unspecified; F03.90 Unspecified dementia, unspecified severity, without behavioral disturbance, psychotic disturbance, mood disturbance, and anxiety; F32.9 Major depressive disorder, single episode, unspecified; Z95.820 Peripheral vascular angioplasty status with implants and grafts; Z95.810 Presence of automatic (implantable) cardiac defibrillator
CPT/HCPCS: 36415; 71045-TC-FY; 73630-TC-LT; 80053; 85025; 85610; 85730; 86850; 86900; 86901; 93005; 93010; 99284-25

== ENCOUNTER 2021-08-23 08:47 | Inpatient (IN) | payer OTHER ==
[2021-08-23 09:12] VITALS: BMI 25.9
[2021-08-23] MEDS ORDERED: ACETAMINOPHEN 1000 MG/100 ML VIAL IVPB ONE (09:52)
[2021-08-23 10:21] LABS: HEMATOCRIT 28.5 % (35.4-49); HEMOGLOBIN 9.6 GM/dL (11.7-16.9); MCH 33.1 pg (25.7-33.7); MCHC 33.8 g/dl (32.0-35.9); MEAN CELL VOLUME 97.9 fl (80-96); MEAN PLT VOLUME 10.5 fl (7.5-11.1); PLATELET COUNT 87 10^3/uL (134-434); RBC 2.91 M/mm3 (4.00-5.60); RDW 15.8 % (11.9-15.9); WHITE BLOOD COUNT 19.2 K/mm3 (4.0-10.0)
[2021-08-23 10:35] LABS: VENOUS BASE EXCESS -3.1 mmol/L (-2-2); VENOUS O2 SATURATION 59.4 % (70-80); VENOUS PCO2 47.2 mmHg (38-52); VENOUS PH 7.311 (7.310-7.410)
[2021-08-23] MEDS ORDERED: ACETAMINOPHEN INJECTION 100 ML IVPB ONE (10:37)
[2021-08-23 10:49] LABS: CHLORIDE 95 mmol/L (98-107); SODIUM 133 mmol/L (136-145)
[2021-08-23 10:51] LABS: CALCIUM 8.3 mg/dL (8.5-10.1)
[2021-08-23 10:52] LABS: ALBUMIN 3.3 g/dl (3.4-5.0); ANION GAP 12 MMOL/L (8-16); BLOOD UREA NITROGEN 52.3 mg/dL (7-18); CO2 26 mmol/L (21-32); GLUCOSE,RANDOM 141 mg/dL (74-106)
[2021-08-23 10:55] LABS: CREATININE 5.2 mg/dL (0.55-1.3); SGOT/AST 552 U/L (15-37); SGPT/ALT 363 U/L (13-61)
[2021-08-23 10:57] LABS: BILIRUBIN,TOTAL 0.8 mg/dL (0.2-1); TOT PROT 6.8 g/dl (6.4-8.2)
[2021-08-23 10:58] LABS: ALK PHOS 116 U/L (45-117)
[2021-08-23 11:00] LABS: N-TERMINAL BNP 29686.6 pg/ml (5-450)
[2021-08-23] MEDS ORDERED: PIPERACILLIN/TAZOB 2.25 GM 2.25 GM in DEXTROSE 5%-WATER - 50 ML IVPB ONE (11:00)
[2021-08-23] MEDS ORDERED: VANCOMYCIN 1 GM in D5W (PRE-DOCKED) 1,000 MG/250 ML IVPB ONE (11:01)
[2021-08-23] MEDS ORDERED: VANCOMYCIN 1 GRAM (PRE-DOCKED) 1,000 MG/250 ML BAG IVPB ONE (11:38)
[2021-08-23] MEDS ORDERED: PIPERACILLIN/TAZOB 2.25 GM 2.25 GM/50 ML BAG IVPB ONE (11:38)
[2021-08-23 12:07] LABS: SMUDGE CELLS 3
[2021-08-23 12:08] LABS: ANISOCYTOSIS 1+; LACTIC ACID 3.6 mmol/L (0.4-2.0); MACROCYTOSIS 1+; OVALOCYTE 1+; PLATELET ESTIMATE SLT DECREASE
[2021-08-23] MEDS ORDERED: ASPIRIN 81 MG CHEWABLE TABLETS PO ONE (12:28)
[2021-08-23] MEDS ORDERED: ASPIRIN 81 MG CHEWABLE TABLETS ONE (12:33)
[2021-08-23] MEDS ORDERED: SODIUM CHLORIDE 250 ML IV PRN ×2 (13:25→13:26)
[2021-08-23] MEDS ORDERED: ALBUTEROL SO4 0.083% IH SOL 2.5 MG/3 ML VIAL.NEB. NEB PRN (13:25)
[2021-08-23] MEDS ORDERED: HEPARIN NA (PORCINE) 5,000 UNITS/ML 1ML VIAL IVPUSH ONE (13:25)
[2021-08-23 14:27] LABS: INR 1.62 (0.83-1.09); PROTHROMBIN TIME (PATIENT) 18.2 SEC (9.7-13.0)
[2021-08-23 14:30] LABS: ACTIVATED PTT 31.1 SECONDS (25.2-36.5)
[2021-08-23 14:42] LABS: CHLORIDE 94 mmol/L (98-107); SODIUM 131 mmol/L (136-145)
[2021-08-23 14:44] LABS: CALCIUM 7.8 mg/dL (8.5-10.1)
[2021-08-23 14:45] LABS: ALBUMIN 3.2 g/dl (3.4-5.0); ANION GAP 9 MMOL/L (8-16); BLOOD UREA NITROGEN 51.9 mg/dL (7-18); CO2 28 mmol/L (21-32); GLUCOSE,RANDOM 186 mg/dL (74-106)
[2021-08-23 14:48] LABS: CREATININE 5.5 mg/dL (0.55-1.3); SGOT/AST 500 U/L (15-37); SGPT/ALT 345 U/L (13-61)
[2021-08-23 14:50] LABS: BILIRUBIN,TOTAL 0.8 mg/dL (0.2-1); TOT PROT 6.6 g/dl (6.4-8.2)
[2021-08-23 14:51] LABS: ALK PHOS 108 U/L (45-117)
[2021-08-23] MEDS ORDERED: PIPERACILLIN/TAZOBACTAM 2.25 GM VIAL IVPB ONE (17:30)
[2021-08-23] MEDS ORDERED: DEXTROSE 5%-WATER - 50 ML IVPB ONE (17:30)
[2021-08-23] MEDS ORDERED: ONDANSETRON 4 MG/2 ML VIAL IVPUSH ONE (17:39)
[2021-08-23] MEDS: ALBUMIN HUMAN 25% 12.5 GM/50 ML VIAL IVPB SCH ×2 (17:43→17:44)
[2021-08-23] MEDS: INSULIN SLIDING SCALE (NOVOLOG) 1 VIAL SQ SCH ×2 (18:03→22:42)
[2021-08-23] MEDS: ACETAMINOPHEN 325 MG TABLET (FP) PO PRN (18:41)
[2021-08-23] MEDS: CALCIUM ACETATE 667 MG CAPSULE (FP) PO SCH (18:41)
[2021-08-23] MEDS: PIPERACILLIN/TAZOB 2.25 GM 2.25 GM in DEXTROSE 5%-WATER - 50 ML IVPB SCH (18:46)
[2021-08-23] MEDS ORDERED: FLU VACC QS2021-22(6MOS UP)/PF 60 MCG/0.5 ML SYRINGE IM ONE (19:09)
[2021-08-23] MEDS: MELATONIN 1 MG TABLET PO SCH (22:41)
[2021-08-23] MEDS: HEPARIN NA (PORCINE) 5,000 UNITS/ML 1ML VIAL SQ SCH (22:42)
[2021-08-23] MEDS: SERTRALINE HCL 25 MG TABLET (FP) PO SCH (22:42)
[2021-08-23] MEDS: ATORVASTATIN CA 80 MG TABLET (FP) PO SCH (22:42)
[2021-08-23] MEDS: SENNOSIDES 8.6MG TABLET (FP) PO SCH (22:42)
[2021-08-24] MEDS ORDERED: PIPERACILLIN/TAZOBACTAM 2.25 GM VIAL IVPB ONE ×3 (01:35→17:17)
[2021-08-24] MEDS: PIPERACILLIN/TAZOB 2.25 GM 2.25 GM in DEXTROSE 5%-WATER - 50 ML IVPB SCH ×3 (01:43→17:19)
[2021-08-24] MEDS: SACUBITRIL/VALSARTAN 24 MG-26 MG TABLET PO SCH ×3 (01:47→22:29)
[2021-08-24] MEDS: LEVOTHYROXINE NA 25 MCG TABLET (FP) PO SCH (06:21)
[2021-08-24] MEDS: ACETAMINOPHEN 325 MG TABLET (FP) PO PRN ×2 (06:21→14:37)
[2021-08-24] MEDS: INSULIN SLIDING SCALE (NOVOLOG) 1 VIAL SQ SCH ×4 (06:22→22:29)
[2021-08-24 09:13] LABS: HEMATOCRIT 27.2 % (35.4-49); HEMOGLOBIN 9.2 GM/dL (11.7-16.9); MCHC 33.7 g/dl (32.0-35.9); MEAN CELL VOLUME 97.7 fl (80-96); MEAN PLT VOLUME 10.4 fl (7.5-11.1); PLATELET COUNT 77 10^3/uL (134-434); RBC 2.78 M/mm3 (4.00-5.60); RDW 15.6 % (11.9-15.9); WHITE BLOOD COUNT 14.9 K/mm3 (4.0-10.0)
[2021-08-24 09:50] LABS: CHOLESTEROL < 50 mg/dL (50-200); TRIGLYCERIDES 165 mg/dL (0-150)
[2021-08-24 09:53] LABS: HDL CHOLESTEROL 10 mg/dL (40-60)
[2021-08-24] MEDS ORDERED: VANCOMYCIN 1,000 MG in DEXTROSE 5%-WATER - 250 ML IVPB ONE (10:07)
[2021-08-24] MEDS ORDERED: DEXTROSE 5%-WATER - 50 ML IVPB ONE ×2 (10:22→17:18)
[2021-08-24 10:30] LABS: LDL CHOLESTEROL (ONLY SJRH) 11 mg/dL (5-100)
[2021-08-24] MEDS: CALCIUM ACETATE 667 MG CAPSULE (FP) PO SCH ×3 (10:30→18:01)
[2021-08-24] MEDS: VITAMIN B COMP W-C 1 EA TABLET (NEPHRO-VITE) PO SCH (10:30)
[2021-08-24] MEDS: FINASTERIDE 5 MG TABLET (FP) PO SCH (10:30)
[2021-08-24] MEDS: PANTOPRAZOLE 40 MG TABLET PO SCH (10:30)
[2021-08-24] MEDS: HEPARIN NA (PORCINE) 5,000 UNITS/ML 1ML VIAL SQ SCH ×2 (10:31→22:29)
[2021-08-24] MEDS: CHOLECALCIFEROL (VIT D3) 1,000 UNIT (25 MCG) TABLET PO SCH (10:31)
[2021-08-24] MEDS: ASPIRIN 81 MG CHEWABLE TABLETS PO SCH (10:31)
[2021-08-24] MEDS ORDERED: SODIUM CHLORIDE 250 ML IV PRN (11:17)
[2021-08-24] MEDS ORDERED: VANCOMYCIN 1 GM in D5W (PRE-DOCKED) 1,000 MG/250 ML IVPB ONE (12:00)
[2021-08-24] MEDS: traMADol HCL 50 MG TABLET PO PRN ×2 (12:03→22:33)
[2021-08-24 12:39] LABS: PLATELET ESTIMATE DECREASED
[2021-08-24] MEDS ORDERED: PT OWN MED DRAWER 7, Y5N ONE (22:14)
[2021-08-24] MEDS: SERTRALINE HCL 25 MG TABLET (FP) PO SCH (22:29)
[2021-08-24] MEDS: MELATONIN 1 MG TABLET PO SCH (22:29)
[2021-08-24] MEDS: ATORVASTATIN CA 80 MG TABLET (FP) PO SCH (22:29)
[2021-08-24] MEDS: SENNOSIDES 8.6MG TABLET (FP) PO SCH (22:29)
[2021-08-25] MEDS ORDERED: PIPERACILLIN/TAZOBACTAM 2.25 GM VIAL IVPB ONE ×3 (01:04→17:11)
[2021-08-25] MEDS ORDERED: DEXTROSE 5%-WATER - 50 ML IVPB ONE ×3 (01:04→17:11)
[2021-08-25] MEDS: PIPERACILLIN/TAZOB 2.25 GM 2.25 GM in DEXTROSE 5%-WATER - 50 ML IVPB SCH ×3 (01:17→17:18)
[2021-08-25] MEDS: INSULIN SLIDING SCALE (NOVOLOG) 1 VIAL SQ SCH ×4 (06:50→21:55)
[2021-08-25] MEDS: LEVOTHYROXINE NA 25 MCG TABLET (FP) PO SCH (06:50)
[2021-08-25] MEDS: HEPARIN NA (PORCINE) 5,000 UNITS/ML 1ML VIAL SQ SCH ×2 (10:29→21:54)
[2021-08-25] MEDS: VITAMIN B COMP W-C 1 EA TABLET (NEPHRO-VITE) PO SCH (10:29)
[2021-08-25] MEDS: PANTOPRAZOLE 40 MG TABLET PO SCH (10:30)
[2021-08-25] MEDS: CHOLECALCIFEROL (VIT D3) 1,000 UNIT (25 MCG) TABLET PO SCH (10:30)
[2021-08-25] MEDS: CALCIUM ACETATE 667 MG CAPSULE (FP) PO SCH ×3 (10:30→17:18)
[2021-08-25] MEDS: ASPIRIN 81 MG CHEWABLE TABLETS PO SCH (10:30)
[2021-08-25] MEDS: FINASTERIDE 5 MG TABLET (FP) PO SCH (10:30)
[2021-08-25] MEDS: SACUBITRIL/VALSARTAN 24 MG-26 MG TABLET PO SCH ×2 (10:31→21:54)
[2021-08-25] MEDS: LIDOCAINE 5% TOPICAL PATCH TP SCH (11:04)
[2021-08-25 11:17] LABS: ARTERIAL BLD GAS O2 SATURATION 97.1 % (95-98); ARTERIAL BLOOD GAS BASE EXCESS 0.9 mmol/L (-2-2); ARTERIAL BLOOD GAS PO2 97.4 mmHg (80-100); ARTERIAL BLOOD GAS pH 7.352 (7.350-7.450)
[2021-08-25 11:19] LABS: ALLENS TEST POSITIVE
[2021-08-25] MEDS ORDERED: ALBUMIN HUMAN 25% 12.5 GM/50 ML VIAL IVPB ONE (14:30)
[2021-08-25] MEDS ORDERED: EPOETIN ALFA-EPBX 3,000 UNIT/ML VIAL IVPUSH ONE (14:30)
[2021-08-25] MEDS ORDERED: DAPTOMYCIN 450 MG in SODIUM CHLORIDE 50 ML IVPB SCH (15:45)
[2021-08-25] MEDS ORDERED: DAPTOMYCIN 550 MG in SODIUM CHLORIDE 50 ML IVPB SCH (15:45)
[2021-08-25] MEDS ORDERED: DAPTOMYCIN 500 MG in SODIUM CHLORIDE 50 ML IVPB SCH (16:00)
[2021-08-25] MEDS ORDERED: VANCOMYCIN 1 GRAM (PRE-DOCKED) 1,000 MG/250 ML BAG IVPB ONE (16:01)
[2021-08-25 17:31] LABS: HEMATOCRIT 25.6 % (35.4-49); HEMOGLOBIN 8.4 GM/dL (11.7-16.9); MCH 31.8 pg (25.7-33.7); MCHC 32.8 g/dl (32.0-35.9); MEAN PLT VOLUME 10.9 fl (7.5-11.1); PLATELET COUNT 64 10^3/uL (134-434); RBC 2.64 M/mm3 (4.00-5.60); RDW 16.1 % (11.9-15.9)
[2021-08-25 17:47] LABS: CHLORIDE 100 mmol/L (98-107); SODIUM 140 mmol/L (136-145)
[2021-08-25 17:50] LABS: ALBUMIN 3.1 g/dl (3.4-5.0); CALCIUM 7.8 mg/dL (8.5-10.1)
[2021-08-25 17:51] LABS: ANION GAP 7 MMOL/L (8-16); CO2 33 mmol/L (21-32); GLUCOSE,RANDOM 152 mg/dL (74-106)
[2021-08-25 17:53] LABS: CREATININE 2.3 mg/dL (0.55-1.3); SGOT/AST 162 U/L (15-37); SGPT/ALT 206 U/L (13-61)
[2021-08-25 17:54] LABS: TOT PROT 6.2 g/dl (6.4-8.2)
[2021-08-25 18:37] LABS: ALK PHOS 70 U/L (45-117); BLOOD UREA NITROGEN 20.2 mg/dL (7-18)
[2021-08-25 19:30] LABS: ANISOCYTOSIS 2+; MACROCYTOSIS 2+; OVALOCYTE 1+; PLATELET ESTIMATE DECREASED
[2021-08-25] MEDS: MELATONIN 1 MG TABLET PO SCH (21:55)
[2021-08-25] MEDS: LIDOCAINE PATCH REMOVAL MC SCH (21:55)
[2021-08-25] MEDS: SERTRALINE HCL 25 MG TABLET (FP) PO SCH (21:56)
[2021-08-25] MEDS: SENNOSIDES 8.6MG TABLET (FP) PO SCH (21:56)
[2021-08-26] MEDS ORDERED: PIPERACILLIN/TAZOBACTAM 2.25 GM VIAL IVPB ONE ×3 (01:41→16:33)
[2021-08-26] MEDS ORDERED: DEXTROSE 5%-WATER - 50 ML IVPB ONE ×3 (01:41→16:34)
[2021-08-26] MEDS: PIPERACILLIN/TAZOB 2.25 GM 2.25 GM in DEXTROSE 5%-WATER - 50 ML IVPB SCH ×3 (01:55→17:00)
[2021-08-26] MEDS: MINERAL OIL/PET HY-PHL TOPICAL OINTMENT 454 GM JAR TP SCH ×4 (06:00→21:59)
[2021-08-26] MEDS: LEVOTHYROXINE NA 25 MCG TABLET (FP) PO SCH (06:10)
[2021-08-26] MEDS: INSULIN SLIDING SCALE (NOVOLOG) 1 VIAL SQ SCH ×4 (06:16→21:58)
[2021-08-26 07:16] LABS: BASO % 0.2 % (0-2.0); EOS % 0.1 % (0-4.5); HEMATOCRIT 25.3 % (35.4-49); HEMOGLOBIN 8.4 GM/dL (11.7-16.9); LYMPH % 1.7 % (8-40); MCH 32.7 pg (25.7-33.7); MCHC 33.2 g/dl (32.0-35.9); MEAN CELL VOLUME 98.4 fl (80-96); MEAN PLT VOLUME 10.3 fl (7.5-11.1); MONO % 7.5 % (3.8-10.2); NEUT % 90.5 % (42.8-82.8); PLATELET COUNT 61 10^3/uL (134-434); RBC 2.57 M/mm3 (4.00-5.60); RDW 16.1 % (11.9-15.9); WHITE BLOOD COUNT 13.4 K/mm3 (4.0-10.0)
[2021-08-26 07:41] LABS: ALBUMIN 2.8 g/dl (3.4-5.0); BLOOD UREA NITROGEN 31.4 mg/dL (7-18); CALCIUM 8.2 mg/dL (8.5-10.1)
[2021-08-26 07:44] LABS: CREATININE 3.3 mg/dL (0.55-1.3)
[2021-08-26 07:45] LABS: BILIRUBIN,TOTAL 1.2 mg/dL (0.2-1); TOT PROT 6.1 g/dl (6.4-8.2)
[2021-08-26] MEDS ORDERED: VANCOMYCIN 1 GRAM (PRE-DOCKED) 1,000 MG/250 ML BAG IVPB ONE ×2 (09:00→09:30)
[2021-08-26] MEDS: LIDOCAINE 5% TOPICAL PATCH TP SCH (09:36)
[2021-08-26] MEDS: FINASTERIDE 5 MG TABLET (FP) PO SCH (09:36)
[2021-08-26] MEDS: ASPIRIN 81 MG CHEWABLE TABLETS PO SCH (09:37)
[2021-08-26] MEDS: VITAMIN B COMP W-C 1 EA TABLET (NEPHRO-VITE) PO SCH (09:37)
[2021-08-26] MEDS: PANTOPRAZOLE 40 MG TABLET PO SCH (09:37)
[2021-08-26] MEDS: CHOLECALCIFEROL (VIT D3) 1,000 UNIT (25 MCG) TABLET PO SCH (09:37)
[2021-08-26] MEDS: HEPARIN NA (PORCINE) 5,000 UNITS/ML 1ML VIAL SQ SCH ×2 (09:37→21:57)
[2021-08-26] MEDS: SACUBITRIL/VALSARTAN 24 MG-26 MG TABLET PO SCH ×2 (09:37→21:59)
[2021-08-26] MEDS: CALCIUM ACETATE 667 MG CAPSULE (FP) PO SCH ×3 (09:37→16:57)
[2021-08-26] MEDS ORDERED: SODIUM CHLORIDE 250 ML IV PRN (10:11)
[2021-08-26] MEDS ORDERED: PT OWN MED DRAWER 7, Y5N ONE (10:55)
[2021-08-26] MEDS: SENNOSIDES 8.6MG TABLET (FP) PO SCH (21:57)
[2021-08-26] MEDS: MELATONIN 1 MG TABLET PO SCH (21:57)
[2021-08-26] MEDS: SERTRALINE HCL 25 MG TABLET (FP) PO SCH (21:57)
[2021-08-26] MEDS: LIDOCAINE PATCH REMOVAL MC SCH (21:58)
[2021-08-27] MEDS ORDERED: PIPERACILLIN/TAZOBACTAM 2.25 GM VIAL IVPB ONE ×2 (00:36→13:00)
[2021-08-27] MEDS ORDERED: DEXTROSE 5%-WATER - 50 ML IVPB ONE ×2 (00:36→13:00)
[2021-08-27] MEDS: PIPERACILLIN/TAZOB 2.25 GM 2.25 GM in DEXTROSE 5%-WATER - 50 ML IVPB SCH ×2 (03:11→13:05)
[2021-08-27] MEDS: LEVOTHYROXINE NA 25 MCG TABLET (FP) PO SCH (06:23)
[2021-08-27] MEDS: INSULIN SLIDING SCALE (NOVOLOG) 1 VIAL SQ SCH ×4 (06:23→23:05)
[2021-08-27] MEDS: MINERAL OIL/PET HY-PHL TOPICAL OINTMENT 454 GM JAR TP SCH ×3 (06:24→23:03)
[2021-08-27] MEDS ORDERED: EPOETIN ALFA-EPBX 4,000 UNIT/ML VIAL IVPUSH ONE (07:00)
[2021-08-27] MEDS: ALBUMIN HUMAN 25% 12.5 GM/50 ML VIAL IVPB SCH ×4 (07:45→11:17)
[2021-08-27] MEDS: CALCIUM ACETATE 667 MG CAPSULE (FP) PO SCH ×2 (12:36→13:04)
[2021-08-27] MEDS ORDERED: PT OWN MED DRAWER 7, Y5N ONE ×3 (12:59→21:49)
[2021-08-27] MEDS: FINASTERIDE 5 MG TABLET (FP) PO SCH (13:04)
[2021-08-27] MEDS: CHOLECALCIFEROL (VIT D3) 1,000 UNIT (25 MCG) TABLET PO SCH (13:04)
[2021-08-27] MEDS: LIDOCAINE 5% TOPICAL PATCH TP SCH (13:05)
[2021-08-27] MEDS: HEPARIN NA (PORCINE) 5,000 UNITS/ML 1ML VIAL SQ SCH ×2 (13:06→23:03)
[2021-08-27] MEDS: SACUBITRIL/VALSARTAN 24 MG-26 MG TABLET PO SCH ×2 (13:08→23:00)
[2021-08-27] MEDS: VITAMIN B COMP W-C 1 EA TABLET (NEPHRO-VITE) PO SCH (13:10)
[2021-08-27] MEDS ORDERED: CEFTAROLINE FOSAMIL ACETATE 200 MG in DEXTROSE 5%-WATER - 100 ML IVPB SCH ×2 (13:15→14:41)
[2021-08-27] MEDS: DAPTOMYCIN 500 MG in SODIUM CHLORIDE 50 ML IVPB SCH (16:56)
[2021-08-27] MEDS: CEFTAROLINE FOSAMIL ACETATE 200 MG in DEXTROSE 5%-WATER - 100 ML IVPB SCH (16:58)
[2021-08-27] MEDS: MELATONIN 1 MG TABLET PO SCH (22:59)
[2021-08-27] MEDS: SENNOSIDES 8.6MG TABLET (FP) PO SCH (23:00)
[2021-08-27] MEDS: SERTRALINE HCL 25 MG TABLET (FP) PO SCH (23:00)
[2021-08-27] MEDS: LIDOCAINE PATCH REMOVAL MC SCH (23:03)
[2021-08-28] MEDS: CEFTAROLINE FOSAMIL ACETATE 200 MG in DEXTROSE 5%-WATER - 100 ML IVPB SCH ×5 (02:15→17:24)
[2021-08-28] MEDS: MINERAL OIL/PET HY-PHL TOPICAL OINTMENT 454 GM JAR TP SCH ×3 (06:04→22:11)
[2021-08-28] MEDS: INSULIN SLIDING SCALE (NOVOLOG) 1 VIAL SQ SCH ×4 (06:05→23:02)
[2021-08-28] MEDS: LEVOTHYROXINE NA 25 MCG TABLET (FP) PO SCH (06:05)
[2021-08-28 08:16] LABS: HEMATOCRIT 27.1 % (35.4-49); HEMOGLOBIN 9.1 GM/dL (11.7-16.9); MCH 32.7 pg (25.7-33.7); MCHC 33.4 g/dl (32.0-35.9); MEAN CELL VOLUME 97.7 fl (80-96); MEAN PLT VOLUME 10.9 fl (7.5-11.1); PLATELET COUNT 75 10^3/uL (134-434); RBC 2.78 M/mm3 (4.00-5.60); RDW 16.3 % (11.9-15.9); WHITE BLOOD COUNT 14.1 K/mm3 (4.0-10.0)
[2021-08-28] MEDS: CALCIUM ACETATE 667 MG CAPSULE (FP) PO SCH ×3 (09:52→17:21)
[2021-08-28] MEDS ORDERED: PT OWN MED DRAWER 7, Y5N ONE (11:10)
[2021-08-28] MEDS: FINASTERIDE 5 MG TABLET (FP) PO SCH (11:25)
[2021-08-28] MEDS: SACUBITRIL/VALSARTAN 24 MG-26 MG TABLET PO SCH ×2 (11:26→22:10)
[2021-08-28] MEDS: LIDOCAINE 5% TOPICAL PATCH TP SCH (11:26)
[2021-08-28] MEDS: CHOLECALCIFEROL (VIT D3) 1,000 UNIT (25 MCG) TABLET PO SCH (11:26)
[2021-08-28] MEDS: VITAMIN B COMP W-C 1 EA TABLET (NEPHRO-VITE) PO SCH (11:26)
[2021-08-28] MEDS: HEPARIN NA (PORCINE) 5,000 UNITS/ML 1ML VIAL SQ SCH ×2 (11:26→22:10)
[2021-08-28] MEDS: MELATONIN 1 MG TABLET PO SCH (22:10)
[2021-08-28] MEDS: SENNOSIDES 8.6MG TABLET (FP) PO SCH (22:10)
[2021-08-28] MEDS: SERTRALINE HCL 25 MG TABLET (FP) PO SCH (22:10)
[2021-08-28] MEDS: LIDOCAINE PATCH REMOVAL MC SCH (22:11)
[2021-08-29] MEDS: CEFTAROLINE FOSAMIL ACETATE 200 MG in DEXTROSE 5%-WATER - 100 ML IVPB SCH ×3 (02:29→18:13)
[2021-08-29] MEDS: MINERAL OIL/PET HY-PHL TOPICAL OINTMENT 454 GM JAR TP SCH ×3 (06:01→21:27)
[2021-08-29] MEDS: INSULIN SLIDING SCALE (NOVOLOG) 1 VIAL SQ SCH ×4 (06:02→21:27)
[2021-08-29] MEDS: CALCIUM ACETATE 667 MG CAPSULE (FP) PO SCH ×4 (08:01→18:20)
[2021-08-29] MEDS ORDERED: POLYETHYLENE GLYCOL (HEALTHYLAX) 3350 17 GM PACKET PO PRN (08:32)
[2021-08-29] MEDS ORDERED: SODIUM PHOSPHATE/NA BIPHOS 133 ML ENEMA RC ONE (08:43)
[2021-08-29] MEDS ORDERED: PT OWN MED DRAWER 7, Y5N ONE ×3 (09:56→21:14)
[2021-08-29] MEDS: VITAMIN B COMP W-C 1 EA TABLET (NEPHRO-VITE) PO SCH (10:35)
[2021-08-29] MEDS: FINASTERIDE 5 MG TABLET (FP) PO SCH (10:35)
[2021-08-29] MEDS: CHOLECALCIFEROL (VIT D3) 1,000 UNIT (25 MCG) TABLET PO SCH (10:35)
[2021-08-29] MEDS: SACUBITRIL/VALSARTAN 24 MG-26 MG TABLET PO SCH ×2 (10:35→21:26)
[2021-08-29] MEDS: HEPARIN NA (PORCINE) 5,000 UNITS/ML 1ML VIAL SQ SCH ×2 (10:35→21:26)
[2021-08-29] MEDS: LIDOCAINE 5% TOPICAL PATCH TP SCH (10:36)
[2021-08-29] MEDS: DAPTOMYCIN 500 MG in SODIUM CHLORIDE 50 ML IVPB SCH (13:41)
[2021-08-29] MEDS: SERTRALINE HCL 25 MG TABLET (FP) PO SCH (21:26)
[2021-08-29] MEDS: SENNOSIDES 8.6MG TABLET (FP) PO SCH (21:26)
[2021-08-29] MEDS: LIDOCAINE PATCH REMOVAL MC SCH (21:26)
[2021-08-29] MEDS: MELATONIN 1 MG TABLET PO SCH (21:26)
[2021-08-30] MEDS ORDERED: PT OWN MED DRAWER 7, Y5N ONE ×3 (00:26→14:56)
[2021-08-30] MEDS: CEFTAROLINE FOSAMIL ACETATE 200 MG in DEXTROSE 5%-WATER - 100 ML IVPB SCH ×2 (02:16→11:01)
[2021-08-30] MEDS: MINERAL OIL/PET HY-PHL TOPICAL OINTMENT 454 GM JAR TP SCH ×3 (05:34→21:37)
[2021-08-30] MEDS: LEVOTHYROXINE NA 25 MCG TABLET (FP) PO SCH (06:07)
[2021-08-30] MEDS: INSULIN SLIDING SCALE (NOVOLOG) 1 VIAL SQ SCH ×4 (06:07→21:36)
[2021-08-30] MEDS ORDERED: INSULIN (NOVOLOG) ASPART 100 UNITS/ML 10ML VIAL ONE (06:19)
[2021-08-30] MEDS: ALBUMIN HUMAN 25% 12.5 GM/50 ML VIAL IVPB SCH ×4 (07:00→08:30)
[2021-08-30 07:14] LABS: HEMATOCRIT 28.5 % (35.4-49); HEMOGLOBIN 9.3 GM/dL (11.7-16.9); MCH 32.1 pg (25.7-33.7); MCHC 32.8 g/dl (32.0-35.9); MEAN CELL VOLUME 98.1 fl (80-96); MEAN PLT VOLUME 10.5 fl (7.5-11.1); PLATELET COUNT 120 10^3/uL (134-434); RBC 2.91 M/mm3 (4.00-5.60); RDW 16.3 % (11.9-15.9)
[2021-08-30 07:40] LABS: CALCIUM 8.9 mg/dL (8.5-10.1)
[2021-08-30 07:44] LABS: CREATININE 5.1 mg/dL (0.55-1.3)
[2021-08-30 07:45] LABS: BLOOD UREA NITROGEN 64.9 mg/dL (7-18)
[2021-08-30] MEDS: CALCIUM ACETATE 667 MG CAPSULE (FP) PO SCH ×3 (08:00→16:45)
[2021-08-30] MEDS ORDERED: EPOETIN ALFA-EPBX 4,000 UNIT/ML VIAL IVPUSH ONE (08:00)
[2021-08-30] MEDS ORDERED: SODIUM CHLORIDE 250 ML IV PRN (08:00)
[2021-08-30] MEDS: CHOLECALCIFEROL (VIT D3) 1,000 UNIT (25 MCG) TABLET PO SCH (11:00)
[2021-08-30] MEDS: VITAMIN B COMP W-C 1 EA TABLET (NEPHRO-VITE) PO SCH (11:00)
[2021-08-30] MEDS: FINASTERIDE 5 MG TABLET (FP) PO SCH (11:00)
[2021-08-30] MEDS: SACUBITRIL/VALSARTAN 24 MG-26 MG TABLET PO SCH ×2 (11:00→21:38)
[2021-08-30] MEDS: HEPARIN NA (PORCINE) 5,000 UNITS/ML 1ML VIAL SQ SCH (11:01)
[2021-08-30] MEDS: LIDOCAINE 5% TOPICAL PATCH TP SCH (11:01)
[2021-08-30 16:42] LABS: BF WBC & OTHER NUCLEATED CELLS 1629 /mm3
[2021-08-30] MEDS: DAPTOMYCIN 500 MG in SODIUM CHLORIDE 50 ML IVPB SCH (17:30)
[2021-08-30] MEDS ORDERED: ONDANSETRON 4 MG/2 ML VIAL IVPUSH ONE (18:01)
[2021-08-30] MEDS: LIDOCAINE PATCH REMOVAL MC SCH (21:37)
[2021-08-30] MEDS: MELATONIN 1 MG TABLET PO SCH (21:37)
[2021-08-30] MEDS: SERTRALINE HCL 25 MG TABLET (FP) PO SCH (21:38)
[2021-08-30] MEDS: SENNOSIDES 8.6MG TABLET (FP) PO SCH (21:38)
[2021-08-30 21:54] LABS: BODY FLUID MACROPHAGES 18 %
[2021-08-31] MEDS: CEFTAROLINE FOSAMIL ACETATE 200 MG in DEXTROSE 5%-WATER - 100 ML IVPB SCH ×4 (01:30→17:28)
[2021-08-31] MEDS: LEVOTHYROXINE NA 25 MCG TABLET (FP) PO SCH ×2 (06:31→07:42)
[2021-08-31] MEDS: INSULIN SLIDING SCALE (NOVOLOG) 1 VIAL SQ SCH ×4 (06:31→21:32)
[2021-08-31] MEDS: MINERAL OIL/PET HY-PHL TOPICAL OINTMENT 454 GM JAR TP SCH ×4 (06:31→21:32)
[2021-08-31 07:01] LABS: HEMATOCRIT 28.8 % (35.4-49); HEMOGLOBIN 9.5 GM/dL (11.7-16.9); MCH 32.4 pg (25.7-33.7); MCHC 32.9 g/dl (32.0-35.9); MEAN CELL VOLUME 98.5 fl (80-96); MEAN PLT VOLUME 10.4 fl (7.5-11.1); PLATELET COUNT 126 10^3/uL (134-434); RBC 2.92 M/mm3 (4.00-5.60); RDW 16.4 % (11.9-15.9); WHITE BLOOD COUNT 21.9 K/mm3 (4.0-10.0)
[2021-08-31] MEDS: CALCIUM ACETATE 667 MG CAPSULE (FP) PO SCH ×4 (09:17→17:39)
[2021-08-31] MEDS: LIDOCAINE 5% TOPICAL PATCH TP SCH (11:34)
[2021-08-31] MEDS: FINASTERIDE 5 MG TABLET (FP) PO SCH (11:34)
[2021-08-31] MEDS: CHOLECALCIFEROL (VIT D3) 1,000 UNIT (25 MCG) TABLET PO SCH (11:34)
[2021-08-31] MEDS: VITAMIN B COMP W-C 1 EA TABLET (NEPHRO-VITE) PO SCH (11:34)
[2021-08-31] MEDS: SACUBITRIL/VALSARTAN 24 MG-26 MG TABLET PO SCH ×2 (11:35→21:32)
[2021-08-31] MEDS ORDERED: SODIUM CHLORIDE 250 ML IV PRN (12:12)
[2021-08-31 12:17] LABS: BF WBC & OTHER NUCLEATED CELLS 332 /mm3
[2021-08-31 13:27] LABS: BODY FLUID MACROPHAGES 42 %; BODY FLUID MESOTHELIAL 6 %
[2021-08-31] MEDS: SENNOSIDES 8.6MG TABLET (FP) PO SCH (21:32)
[2021-08-31] MEDS: LIDOCAINE PATCH REMOVAL MC SCH (21:32)
[2021-08-31] MEDS: MELATONIN 1 MG TABLET PO SCH (21:32)
[2021-08-31] MEDS: SERTRALINE HCL 25 MG TABLET (FP) PO SCH (21:32)
[2021-09-01] MEDS: CEFTAROLINE FOSAMIL ACETATE 200 MG in DEXTROSE 5%-WATER - 100 ML IVPB SCH ×3 (01:47→17:53)
[2021-09-01] MEDS: LEVOTHYROXINE NA 25 MCG TABLET (FP) PO SCH (06:41)
[2021-09-01] MEDS: MINERAL OIL/PET HY-PHL TOPICAL OINTMENT 454 GM JAR TP SCH ×3 (06:41→21:51)
[2021-09-01] MEDS: INSULIN SLIDING SCALE (NOVOLOG) 1 VIAL SQ SCH ×4 (06:42→22:12)
[2021-09-01] MEDS ORDERED: EPOETIN ALFA-EPBX 4,000 UNIT/ML VIAL IVPUSH ONE (09:15)
[2021-09-01] MEDS: AMINO ACIDS/PROTEIN HYDROLYS 30 ML LIQUID.PKT PO SCH (09:18)
[2021-09-01] MEDS: CALCIUM ACETATE 667 MG CAPSULE (FP) PO SCH ×3 (09:19→18:29)
[2021-09-01] MEDS: ALBUMIN HUMAN 25% 12.5 GM/50 ML VIAL IVPB SCH ×4 (10:05→11:35)
[2021-09-01 10:37] LABS: HEMATOCRIT 27.9 % (35.4-49); HEMOGLOBIN 9.3 GM/dL (11.7-16.9); MCH 32.4 pg (25.7-33.7); MCHC 33.5 g/dl (32.0-35.9); MEAN CELL VOLUME 96.6 fl (80-96); PLATELET COUNT 124 10^3/uL (134-434); RBC 2.88 M/mm3 (4.00-5.60); RDW 16.1 % (11.9-15.9); WHITE BLOOD COUNT 19.9 K/mm3 (4.0-10.0)
[2021-09-01 11:08] LABS: ANISOCYTOSIS 1+; MACROCYTOSIS 1+; PLATELET ESTIMATE DECREASED
[2021-09-01 13:07] LABS: BODY FLUID ALBUMIN 1.9 g/dL (Not Estab.)
[2021-09-01 13:07] LABS: BODY FLUID ALBUMIN 1.9 g/dL (Not Estab.)
[2021-09-01] MEDS: LIDOCAINE 5% TOPICAL PATCH TP SCH (13:09)
[2021-09-01] MEDS: SACUBITRIL/VALSARTAN 24 MG-26 MG TABLET PO SCH ×2 (13:10→21:51)
[2021-09-01] MEDS: VITAMIN B COMP W-C 1 EA TABLET (NEPHRO-VITE) PO SCH (13:11)
[2021-09-01] MEDS: CHOLECALCIFEROL (VIT D3) 1,000 UNIT (25 MCG) TABLET PO SCH (13:12)
[2021-09-01] MEDS: FINASTERIDE 5 MG TABLET (FP) PO SCH (13:12)
[2021-09-01 13:16] LABS: ALBUMIN 2.1 g/dl (3.4-5.0); BILIRUBIN,TOTAL 1.1 mg/dL (0.2-1); CALCIUM 8.7 mg/dL (8.5-10.1); CREATININE 4.7 mg/dL (0.55-1.3); TOT PROT 6.1 g/dl (6.4-8.2)
[2021-09-01 18:31] LABS: BF WBC & OTHER NUCLEATED CELLS 884 /mm3
[2021-09-01] MEDS: DAPTOMYCIN 500 MG in SODIUM CHLORIDE 50 ML IVPB SCH (18:32)
[2021-09-01 18:33] LABS: BF WBC & OTHER NUCLEATED CELLS 302 /mm3
[2021-09-01 19:07] LABS: BODY FLUID MACROPHAGES 23 %; BODY FLUID MESOTHELIAL 1 %; BODY FLUID MONOCYTE 7 %
[2021-09-01 19:09] LABS: BODY FLUID MACROPHAGES 18 %; BODY FLUID MESOTHELIAL 1 %; BODY FLUID MONOCYTE 4 %
[2021-09-01] MEDS ORDERED: PT OWN MED DRAWER 7, Y5N ONE (21:15)
[2021-09-01] MEDS: SERTRALINE HCL 25 MG TABLET (FP) PO SCH (21:30)
[2021-09-01] MEDS: MELATONIN 1 MG TABLET PO SCH (21:51)
[2021-09-01] MEDS: LIDOCAINE PATCH REMOVAL MC SCH (21:51)
[2021-09-01] MEDS: SENNOSIDES 8.6MG TABLET (FP) PO SCH (21:51)
[2021-09-02] MEDS: CEFTAROLINE FOSAMIL ACETATE 200 MG in DEXTROSE 5%-WATER - 100 ML IVPB SCH ×3 (02:04→17:18)
[2021-09-02] MEDS: LEVOTHYROXINE NA 25 MCG TABLET (FP) PO SCH (06:07)
[2021-09-02] MEDS: INSULIN SLIDING SCALE (NOVOLOG) 1 VIAL SQ SCH ×4 (06:07→23:24)
[2021-09-02] MEDS: MINERAL OIL/PET HY-PHL TOPICAL OINTMENT 454 GM JAR TP SCH ×3 (06:07→22:54)
[2021-09-02] MEDS: LIDOCAINE 5% TOPICAL PATCH TP SCH (10:04)
[2021-09-02] MEDS: CHOLECALCIFEROL (VIT D3) 1,000 UNIT (25 MCG) TABLET PO SCH (10:05)
[2021-09-02] MEDS: AMINO ACIDS/PROTEIN HYDROLYS 30 ML LIQUID.PKT PO SCH (10:05)
[2021-09-02] MEDS: VITAMIN B COMP W-C 1 EA TABLET (NEPHRO-VITE) PO SCH (10:05)
[2021-09-02] MEDS: CALCIUM ACETATE 667 MG CAPSULE (FP) PO SCH ×3 (10:05→16:51)
[2021-09-02] MEDS: FINASTERIDE 5 MG TABLET (FP) PO SCH (10:05)
[2021-09-02] MEDS: SACUBITRIL/VALSARTAN 24 MG-26 MG TABLET PO SCH ×2 (10:06→21:50)
[2021-09-02] MEDS: ACETAMINOPHEN 325 MG TABLET (FP) PO PRN (10:08)
[2021-09-02] MEDS ORDERED: SODIUM CHLORIDE 250 ML IV PRN (10:10)
[2021-09-02] MEDS: ACETAMINOPHEN 1000 MG/100 ML VIAL IVPB PRN (16:49)
[2021-09-02] MEDS ORDERED: PT OWN MED DRAWER 7, Y5N ONE (20:27)
[2021-09-02] MEDS: MELATONIN 1 MG TABLET PO SCH (21:50)
[2021-09-02] MEDS: LIDOCAINE PATCH REMOVAL MC SCH (21:59)
[2021-09-02] MEDS: SERTRALINE HCL 25 MG TABLET (FP) PO SCH (22:00)
[2021-09-02] MEDS: SENNOSIDES 8.6MG TABLET (FP) PO SCH (22:00)
[2021-09-03] MEDS ORDERED: PT OWN MED DRAWER 7, Y5N ONE ×2 (02:35→19:58)
[2021-09-03] MEDS: CEFTAROLINE FOSAMIL ACETATE 200 MG in DEXTROSE 5%-WATER - 100 ML IVPB SCH ×2 (02:54→11:06)
[2021-09-03] MEDS: MINERAL OIL/PET HY-PHL TOPICAL OINTMENT 454 GM JAR TP SCH ×2 (06:55→13:59)
[2021-09-03] MEDS: INSULIN SLIDING SCALE (NOVOLOG) 1 VIAL SQ SCH ×3 (06:56→17:06)
[2021-09-03] MEDS: LEVOTHYROXINE NA 25 MCG TABLET (FP) PO SCH (06:59)
[2021-09-03] MEDS: ACETAMINOPHEN 1000 MG/100 ML VIAL IVPB PRN ×3 (07:00→20:25)
[2021-09-03] MEDS: CALCIUM ACETATE 667 MG CAPSULE (FP) PO SCH ×3 (08:18→17:37)
[2021-09-03] MEDS: AMINO ACIDS/PROTEIN HYDROLYS 30 ML LIQUID.PKT PO SCH (08:18)
[2021-09-03] MEDS ORDERED: EPOETIN ALFA-EPBX 4,000 UNIT/ML VIAL IVPUSH ONE (09:45)
[2021-09-03] MEDS: VITAMIN B COMP W-C 1 EA TABLET (NEPHRO-VITE) PO SCH (11:05)
[2021-09-03] MEDS: FINASTERIDE 5 MG TABLET (FP) PO SCH (11:05)
[2021-09-03] MEDS: CHOLECALCIFEROL (VIT D3) 1,000 UNIT (25 MCG) TABLET PO SCH (11:05)
[2021-09-03] MEDS: SACUBITRIL/VALSARTAN 24 MG-26 MG TABLET PO SCH ×2 (11:06→22:00)
[2021-09-03] MEDS: LIDOCAINE 5% TOPICAL PATCH TP SCH (11:48)
[2021-09-03] MEDS: DAPTOMYCIN 500 MG in SODIUM CHLORIDE 50 ML IVPB SCH (15:23)
[2021-09-03 16:08] LABS: BODY FLUID ALBUMIN 1.6 g/dL (Not Estab.)
[2021-09-03 16:08] LABS: BODY FLUID ALBUMIN 1.8 g/dL (Not Estab.)
[2021-09-03] MEDS ORDERED: DAPTOMYCIN 200 MG in SODIUM CHLORIDE 50 ML IVPB ONE (18:00)
[2021-09-03] MEDS: MELATONIN 1 MG TABLET PO SCH (22:00)
[2021-09-04] MEDS: LIDOCAINE PATCH REMOVAL MC SCH ×2 (01:41→22:28)
[2021-09-04] MEDS: MINERAL OIL/PET HY-PHL TOPICAL OINTMENT 454 GM JAR TP SCH ×4 (01:43→22:28)
[2021-09-04] MEDS: INSULIN SLIDING SCALE (NOVOLOG) 1 VIAL SQ SCH ×5 (01:44→22:29)
[2021-09-04] MEDS: DAPTOMYCIN 500 MG in SODIUM CHLORIDE 50 ML IVPB SCH (01:45)
[2021-09-04] MEDS: ACETAMINOPHEN 1000 MG/100 ML VIAL IVPB PRN ×2 (04:51→22:26)
[2021-09-04] MEDS: SERTRALINE HCL 25 MG TABLET (FP) PO SCH ×2 (05:08→22:24)
[2021-09-04] MEDS: SENNOSIDES 8.6MG TABLET (FP) PO SCH ×2 (05:09→22:29)
[2021-09-04] MEDS: LEVOTHYROXINE NA 25 MCG TABLET (FP) PO SCH (06:08)
[2021-09-04 07:33] LABS: BASO % 0.4 % (0-2.0); EOS % 0.7 % (0-4.5); HEMATOCRIT 26.6 % (35.4-49); HEMOGLOBIN 8.9 GM/dL (11.7-16.9); LYMPH % 3.6 % (8-40); MCH 33.2 pg (25.7-33.7); MCHC 33.5 g/dl (32.0-35.9); MEAN PLT VOLUME 10.1 fl (7.5-11.1); MONO % 5.6 % (3.8-10.2); NEUT % 89.7 % (42.8-82.8); PLATELET COUNT 129 10^3/uL (134-434); RBC 2.69 M/mm3 (4.00-5.60); RDW 16.6 % (11.9-15.9)
[2021-09-04] MEDS ORDERED: ONDANSETRON 4 MG/2 ML VIAL IVPUSH PRN (09:07)
[2021-09-04] MEDS: SACUBITRIL/VALSARTAN 24 MG-26 MG TABLET PO SCH ×2 (10:07→22:56)
[2021-09-04] MEDS: CHOLECALCIFEROL (VIT D3) 1,000 UNIT (25 MCG) TABLET PO SCH (10:08)
[2021-09-04] MEDS: AMINO ACIDS/PROTEIN HYDROLYS 30 ML LIQUID.PKT PO SCH ×3 (10:08→17:19)
[2021-09-04] MEDS: CALCIUM ACETATE 667 MG CAPSULE (FP) PO SCH ×3 (10:08→17:22)
[2021-09-04] MEDS: VITAMIN B COMP W-C 1 EA TABLET (NEPHRO-VITE) PO SCH (10:08)
[2021-09-04] MEDS: LIDOCAINE 5% TOPICAL PATCH TP SCH (10:09)
[2021-09-04] MEDS: FINASTERIDE 5 MG TABLET (FP) PO SCH (10:09)
[2021-09-04] MEDS ORDERED: INSULIN (NOVOLOG) ASPART 100 UNITS/ML 10ML VIAL ONE (11:28)
[2021-09-04] MEDS ORDERED: AMINO ACIDS/PROTEIN HYDROLYS 30 ML LIQUID.PKT PO SCH ×2 (12:00)
[2021-09-04] MEDS: traMADol HCL 50 MG TABLET PO PRN (22:24)
[2021-09-04] MEDS: MELATONIN 1 MG TABLET PO SCH (22:24)
[2021-09-05] MEDS: INSULIN SLIDING SCALE (NOVOLOG) 1 VIAL SQ SCH ×4 (06:08→22:16)
[2021-09-05] MEDS: MINERAL OIL/PET HY-PHL TOPICAL OINTMENT 454 GM JAR TP SCH ×3 (06:09→21:50)
[2021-09-05 07:53] LABS: CALCIUM 7.6 mg/dL (8.5-10.1)
[2021-09-05 07:54] LABS: BLOOD UREA NITROGEN 36.9 mg/dL (7-18)
[2021-09-05] MEDS: AMINO ACIDS/PROTEIN HYDROLYS 30 ML LIQUID.PKT PO SCH ×3 (08:45→17:21)
[2021-09-05] MEDS: CALCIUM ACETATE 667 MG CAPSULE (FP) PO SCH ×3 (08:46→17:21)
[2021-09-05] MEDS: CHOLECALCIFEROL (VIT D3) 1,000 UNIT (25 MCG) TABLET PO SCH (10:07)
[2021-09-05] MEDS: LIDOCAINE 5% TOPICAL PATCH TP SCH (10:07)
[2021-09-05] MEDS: VITAMIN B COMP W-C 1 EA TABLET (NEPHRO-VITE) PO SCH (10:07)
[2021-09-05] MEDS: FINASTERIDE 5 MG TABLET (FP) PO SCH (10:07)
[2021-09-05] MEDS: SACUBITRIL/VALSARTAN 24 MG-26 MG TABLET PO SCH ×2 (10:08→22:01)
[2021-09-05] MEDS ORDERED: SODIUM CHLORIDE 250 ML IV PRN (11:40)
[2021-09-05] MEDS: CEFTAROLINE FOSAMIL ACETATE 200 MG in DEXTROSE 5%-WATER - 100 ML IVPB SCH ×2 (12:53→17:59)
[2021-09-05] MEDS ORDERED: PT OWN MED DRAWER 7, Y5N ONE (17:48)
[2021-09-05] MEDS: LEVOTHYROXINE NA 25 MCG TABLET (FP) PO SCH (19:59)
[2021-09-05] MEDS: traMADol HCL 50 MG TABLET PO PRN (22:01)
[2021-09-05] MEDS: SENNOSIDES 8.6MG TABLET (FP) PO SCH (22:01)
[2021-09-05] MEDS: SERTRALINE HCL 25 MG TABLET (FP) PO SCH (22:01)
[2021-09-05] MEDS: MELATONIN 1 MG TABLET PO SCH (22:01)
[2021-09-05] MEDS: LIDOCAINE PATCH REMOVAL MC SCH (22:02)
[2021-09-06] MEDS: CEFTAROLINE FOSAMIL ACETATE 200 MG in DEXTROSE 5%-WATER - 100 ML IVPB SCH ×3 (02:03→17:09)
[2021-09-06] MEDS: MINERAL OIL/PET HY-PHL TOPICAL OINTMENT 454 GM JAR TP SCH ×3 (06:11→21:08)
[2021-09-06] MEDS: INSULIN SLIDING SCALE (NOVOLOG) 1 VIAL SQ SCH ×4 (06:11→21:23)
[2021-09-06] MEDS: LEVOTHYROXINE NA 25 MCG TABLET (FP) PO SCH (06:12)
[2021-09-06 07:52] LABS: BASO % 0.4 % (0-2.0); EOS % 1.5 % (0-4.5); HEMOGLOBIN 8.4 GM/dL (11.7-16.9); LYMPH % 5.3 % (8-40); MCH 33.4 pg (25.7-33.7); MCHC 33.7 g/dl (32.0-35.9); MEAN CELL VOLUME 99.1 fl (80-96); MEAN PLT VOLUME 9.9 fl (7.5-11.1); MONO % 6.8 % (3.8-10.2); PLATELET COUNT 143 10^3/uL (134-434); RBC 2.52 M/mm3 (4.00-5.60); RDW 17.2 % (11.9-15.9); WHITE BLOOD COUNT 10.2 K/mm3 (4.0-10.0)
[2021-09-06] MEDS ORDERED: EPOETIN ALFA-EPBX 10,000 UNIT/ML VIAL IVPUSH ONE (08:45)
[2021-09-06] MEDS: AMINO ACIDS/PROTEIN HYDROLYS 30 ML LIQUID.PKT PO SCH ×3 (09:01→16:41)
[2021-09-06] MEDS: CALCIUM ACETATE 667 MG CAPSULE (FP) PO SCH ×3 (09:01→16:41)
[2021-09-06] MEDS: ACETAMINOPHEN 1000 MG/100 ML VIAL IVPB PRN (09:02)
[2021-09-06] MEDS: SACUBITRIL/VALSARTAN 24 MG-26 MG TABLET PO SCH ×2 (11:45→21:07)
[2021-09-06] MEDS: LIDOCAINE 5% TOPICAL PATCH TP SCH (11:45)
[2021-09-06] MEDS: VITAMIN B COMP W-C 1 EA TABLET (NEPHRO-VITE) PO SCH (11:46)
[2021-09-06] MEDS: FINASTERIDE 5 MG TABLET (FP) PO SCH (11:52)
[2021-09-06] MEDS: CHOLECALCIFEROL (VIT D3) 1,000 UNIT (25 MCG) TABLET PO SCH (11:54)
[2021-09-06] MEDS: DAPTOMYCIN 500 MG in SODIUM CHLORIDE 50 ML IVPB SCH (14:48)
[2021-09-06] MEDS: traMADol HCL 50 MG TABLET PO PRN (21:06)
[2021-09-06] MEDS: LIDOCAINE PATCH REMOVAL MC SCH (21:08)
[2021-09-06] MEDS: SENNOSIDES 8.6MG TABLET (FP) PO SCH (21:08)
[2021-09-06] MEDS: MELATONIN 1 MG TABLET PO SCH (21:11)
[2021-09-06] MEDS: SERTRALINE HCL 25 MG TABLET (FP) PO SCH (21:11)
[2021-09-06] MEDS ORDERED: PT OWN MED DRAWER 7, Y5N ONE (21:29)
[2021-09-07] MEDS: CEFTAROLINE FOSAMIL ACETATE 200 MG in DEXTROSE 5%-WATER - 100 ML IVPB SCH ×3 (02:00→17:19)
[2021-09-07] MEDS: MINERAL OIL/PET HY-PHL TOPICAL OINTMENT 454 GM JAR TP SCH ×3 (05:33→21:19)
[2021-09-07] MEDS: INSULIN SLIDING SCALE (NOVOLOG) 1 VIAL SQ SCH ×4 (06:07→21:23)
[2021-09-07] MEDS: LEVOTHYROXINE NA 25 MCG TABLET (FP) PO SCH (06:08)
[2021-09-07] MEDS: CALCIUM ACETATE 667 MG CAPSULE (FP) PO SCH ×3 (08:16→17:19)
[2021-09-07] MEDS: AMINO ACIDS/PROTEIN HYDROLYS 30 ML LIQUID.PKT PO SCH ×3 (08:16→17:19)
[2021-09-07] MEDS ORDERED: PT OWN MED DRAWER 7, Y5N ONE ×3 (08:54→21:05)
[2021-09-07] MEDS: LIDOCAINE 5% TOPICAL PATCH TP SCH (09:18)
[2021-09-07] MEDS: SACUBITRIL/VALSARTAN 24 MG-26 MG TABLET PO SCH ×2 (09:18→21:24)
[2021-09-07] MEDS: VITAMIN B COMP W-C 1 EA TABLET (NEPHRO-VITE) PO SCH (09:19)
[2021-09-07] MEDS: FINASTERIDE 5 MG TABLET (FP) PO SCH (09:19)
[2021-09-07] MEDS: CHOLECALCIFEROL (VIT D3) 1,000 UNIT (25 MCG) TABLET PO SCH (09:20)
[2021-09-07] MEDS ORDERED: ACETAMINOPHEN 1000 MG/100 ML VIAL IVPB PRN (09:43)
[2021-09-07] MEDS: LACTOBACILLUS ACIDOPHILUS 1 TABLET PO SCH (15:12)
[2021-09-07] MEDS: SODIUM CHLORIDE NASAL SPRAY 44 ML BOTTLE NS PRN ×2 (17:26→21:35)
[2021-09-07] MEDS: SENNOSIDES 8.6MG TABLET (FP) PO SCH (21:23)
[2021-09-07] MEDS: SERTRALINE HCL 25 MG TABLET (FP) PO SCH (21:23)
[2021-09-07] MEDS: MELATONIN 1 MG TABLET PO SCH (21:23)
[2021-09-07] MEDS: LIDOCAINE PATCH REMOVAL MC SCH (21:23)
[2021-09-08] MEDS: CEFTAROLINE FOSAMIL ACETATE 200 MG in DEXTROSE 5%-WATER - 100 ML IVPB SCH ×3 (01:43→17:28)
[2021-09-08] MEDS: INSULIN SLIDING SCALE (NOVOLOG) 1 VIAL SQ SCH ×4 (06:16→21:39)
[2021-09-08] MEDS: LEVOTHYROXINE NA 25 MCG TABLET (FP) PO SCH (06:24)
[2021-09-08] MEDS: MINERAL OIL/PET HY-PHL TOPICAL OINTMENT 454 GM JAR TP SCH ×3 (06:26→21:40)
[2021-09-08] MEDS ORDERED: SODIUM CHLORIDE 250 ML IV PRN (07:51)
[2021-09-08] MEDS: CALCIUM ACETATE 667 MG CAPSULE (FP) PO SCH ×3 (08:00→16:38)
[2021-09-08] MEDS: AMINO ACIDS/PROTEIN HYDROLYS 30 ML LIQUID.PKT PO SCH (08:00)
[2021-09-08] MEDS ORDERED: EPOETIN ALFA-EPBX 10,000 UNIT/ML VIAL IVPUSH ONE (08:15)
[2021-09-08] MEDS: LIDOCAINE 5% TOPICAL PATCH TP SCH (09:27)
[2021-09-08] MEDS: LACTOBACILLUS ACIDOPHILUS 1 TABLET PO SCH (11:19)
[2021-09-08] MEDS: VITAMIN B COMP W-C 1 EA TABLET (NEPHRO-VITE) PO SCH (11:19)
[2021-09-08] MEDS: SACUBITRIL/VALSARTAN 24 MG-26 MG TABLET PO SCH ×2 (11:19→21:37)
[2021-09-08] MEDS: FINASTERIDE 5 MG TABLET (FP) PO SCH (11:19)
[2021-09-08] MEDS: CHOLECALCIFEROL (VIT D3) 1,000 UNIT (25 MCG) TABLET PO SCH (11:19)
[2021-09-08] MEDS ORDERED: ACETAMINOPHEN 1000 MG/100 ML VIAL IVPB PRN (14:10)
[2021-09-08] MEDS: DAPTOMYCIN 500 MG in SODIUM CHLORIDE 50 ML IVPB SCH (15:37)
[2021-09-08] MEDS ORDERED: PT OWN MED DRAWER 7, Y5N ONE ×2 (17:47→21:31)
[2021-09-08] MEDS: MELATONIN 1 MG TABLET PO SCH (21:37)
[2021-09-08] MEDS: SERTRALINE HCL 25 MG TABLET (FP) PO SCH (21:37)
[2021-09-08] MEDS: LIDOCAINE PATCH REMOVAL MC SCH (21:38)
[2021-09-09] MEDS: CEFTAROLINE FOSAMIL ACETATE 200 MG in DEXTROSE 5%-WATER - 100 ML IVPB SCH ×3 (01:31→18:40)
[2021-09-09] MEDS: LEVOTHYROXINE NA 25 MCG TABLET (FP) PO SCH (06:00)
[2021-09-09] MEDS: MINERAL OIL/PET HY-PHL TOPICAL OINTMENT 454 GM JAR TP SCH ×3 (06:00→22:38)
[2021-09-09] MEDS: INSULIN SLIDING SCALE (NOVOLOG) 1 VIAL SQ SCH ×4 (06:00→22:38)
[2021-09-09 07:09] LABS: BASO % 0.6 % (0-2.0); EOS % 0.6 % (0-4.5); HEMATOCRIT 25.3 % (35.4-49); HEMOGLOBIN 8.3 GM/dL (11.7-16.9); LYMPH % 5.4 % (8-40); MCH 33.1 pg (25.7-33.7); MEAN CELL VOLUME 100.2 fl (80-96); MEAN PLT VOLUME 9.3 fl (7.5-11.1); MONO % 8.7 % (3.8-10.2); NEUT % 84.7 % (42.8-82.8); PLATELET COUNT 151 10^3/uL (134-434); RBC 2.52 M/mm3 (4.00-5.60); RDW 16.9 % (11.9-15.9); WHITE BLOOD COUNT 7.9 K/mm3 (4.0-10.0)
[2021-09-09 07:16] LABS: ALBUMIN 1.8 g/dl (3.4-5.0)
[2021-09-09 07:17] LABS: BLOOD UREA NITROGEN 22.3 mg/dL (7-18)
[2021-09-09 07:20] LABS: CREATININE 2.9 mg/dL (0.55-1.3)
[2021-09-09 07:21] LABS: BILIRUBIN,TOTAL 0.7 mg/dL (0.2-1); TOT PROT 6.2 g/dl (6.4-8.2)
[2021-09-09] MEDS: CALCIUM ACETATE 667 MG CAPSULE (FP) PO SCH ×3 (08:39→17:41)
[2021-09-09] MEDS: AMINO ACIDS/PROTEIN HYDROLYS 30 ML LIQUID.PKT PO SCH (08:39)
[2021-09-09] MEDS: VITAMIN B COMP W-C 1 EA TABLET (NEPHRO-VITE) PO SCH (09:57)
[2021-09-09] MEDS: SACUBITRIL/VALSARTAN 24 MG-26 MG TABLET PO SCH ×2 (09:57→22:29)
[2021-09-09] MEDS: FINASTERIDE 5 MG TABLET (FP) PO SCH (09:57)
[2021-09-09] MEDS: LIDOCAINE 5% TOPICAL PATCH TP SCH (09:57)
[2021-09-09] MEDS: CHOLECALCIFEROL (VIT D3) 1,000 UNIT (25 MCG) TABLET PO SCH (09:57)
[2021-09-09] MEDS: LACTOBACILLUS ACIDOPHILUS 1 TABLET PO SCH (09:57)
[2021-09-09] MEDS: BACITRACIN 15 GM TUBE TOPICAL OINTMENT TP SCH (12:02)
[2021-09-09] MEDS: SERTRALINE HCL 25 MG TABLET (FP) PO SCH (22:28)
[2021-09-09] MEDS: MELATONIN 1 MG TABLET PO SCH (22:28)
[2021-09-09] MEDS: LIDOCAINE PATCH REMOVAL MC SCH (22:29)
[2021-09-10] MEDS: CEFTAROLINE FOSAMIL ACETATE 200 MG in DEXTROSE 5%-WATER - 100 ML IVPB SCH ×3 (01:30→18:43)
[2021-09-10] MEDS: MINERAL OIL/PET HY-PHL TOPICAL OINTMENT 454 GM JAR TP SCH ×3 (06:32→22:12)
[2021-09-10] MEDS: INSULIN SLIDING SCALE (NOVOLOG) 1 VIAL SQ SCH ×4 (06:32→22:16)
[2021-09-10] MEDS: LEVOTHYROXINE NA 25 MCG TABLET (FP) PO SCH (06:32)
[2021-09-10] MEDS ORDERED: EPOETIN ALFA-EPBX 10,000 UNIT/ML VIAL SQ ONE (07:00)
[2021-09-10] MEDS ORDERED: SODIUM CHLORIDE 250 ML IV PRN (07:00)
[2021-09-10] MEDS: CALCIUM ACETATE 667 MG CAPSULE (FP) PO SCH ×3 (09:11→17:04)
[2021-09-10] MEDS: SACUBITRIL/VALSARTAN 24 MG-26 MG TABLET PO SCH ×2 (09:11→22:12)
[2021-09-10] MEDS: FINASTERIDE 5 MG TABLET (FP) PO SCH (09:12)
[2021-09-10] MEDS: VITAMIN B COMP W-C 1 EA TABLET (NEPHRO-VITE) PO SCH (09:12)
[2021-09-10] MEDS: LACTOBACILLUS ACIDOPHILUS 1 TABLET PO SCH (09:12)
[2021-09-10] MEDS: CHOLECALCIFEROL (VIT D3) 1,000 UNIT (25 MCG) TABLET PO SCH (09:12)
[2021-09-10] MEDS: AMINO ACIDS/PROTEIN HYDROLYS 30 ML LIQUID.PKT PO SCH (09:13)
[2021-09-10] MEDS: LIDOCAINE 5% TOPICAL PATCH TP SCH (09:13)
[2021-09-10] MEDS: BACITRACIN 15 GM TUBE TOPICAL OINTMENT TP SCH (09:14)
[2021-09-10] MEDS ORDERED: PT OWN MED DRAWER 7, Y5N ONE ×2 (13:34→21:38)
[2021-09-10] MEDS: DAPTOMYCIN 500 MG in SODIUM CHLORIDE 50 ML IVPB SCH (17:03)
[2021-09-10] MEDS ORDERED: DAPTOMYCIN 200 MG in SODIUM CHLORIDE 50 ML IVPB ONE (18:00)
[2021-09-10] MEDS: MELATONIN 1 MG TABLET PO SCH (22:12)
[2021-09-10] MEDS: SERTRALINE HCL 25 MG TABLET (FP) PO SCH (22:12)
[2021-09-10] MEDS: LIDOCAINE PATCH REMOVAL MC SCH (22:12)
[2021-09-11] MEDS: CEFTAROLINE FOSAMIL ACETATE 200 MG in DEXTROSE 5%-WATER - 100 ML IVPB SCH ×3 (01:36→18:17)
[2021-09-11] MEDS: INSULIN SLIDING SCALE (NOVOLOG) 1 VIAL SQ SCH ×4 (06:44→22:02)
[2021-09-11] MEDS: MINERAL OIL/PET HY-PHL TOPICAL OINTMENT 454 GM JAR TP SCH ×3 (06:44→22:01)
[2021-09-11] MEDS: LEVOTHYROXINE NA 25 MCG TABLET (FP) PO SCH (06:44)
[2021-09-11] MEDS: AMINO ACIDS/PROTEIN HYDROLYS 30 ML LIQUID.PKT PO SCH (10:25)
[2021-09-11] MEDS: FINASTERIDE 5 MG TABLET (FP) PO SCH (10:25)
[2021-09-11] MEDS: LACTOBACILLUS ACIDOPHILUS 1 TABLET PO SCH (10:25)
[2021-09-11] MEDS: SACUBITRIL/VALSARTAN 24 MG-26 MG TABLET PO SCH ×2 (10:25→22:02)
[2021-09-11] MEDS: CALCIUM ACETATE 667 MG CAPSULE (FP) PO SCH ×3 (10:25→17:35)
[2021-09-11] MEDS: CHOLECALCIFEROL (VIT D3) 1,000 UNIT (25 MCG) TABLET PO SCH (10:26)
[2021-09-11] MEDS: VITAMIN B COMP W-C 1 EA TABLET (NEPHRO-VITE) PO SCH (10:26)
[2021-09-11] MEDS: LIDOCAINE 5% TOPICAL PATCH TP SCH (10:27)
[2021-09-11] MEDS: BACITRACIN 15 GM TUBE TOPICAL OINTMENT TP SCH (10:27)
[2021-09-11] MEDS ORDERED: PT OWN MED DRAWER 7, Y5N ONE ×2 (19:48→20:07)
[2021-09-11] MEDS: LIDOCAINE PATCH REMOVAL MC SCH (22:00)
[2021-09-11] MEDS: MELATONIN 1 MG TABLET PO SCH (22:02)
[2021-09-11] MEDS: SERTRALINE HCL 25 MG TABLET (FP) PO SCH (22:03)
[2021-09-12] MEDS: CEFTAROLINE FOSAMIL ACETATE 200 MG in DEXTROSE 5%-WATER - 100 ML IVPB SCH ×3 (01:20→18:00)
[2021-09-12] MEDS: INSULIN SLIDING SCALE (NOVOLOG) 1 VIAL SQ SCH ×4 (06:11→21:47)
[2021-09-12] MEDS: LEVOTHYROXINE NA 25 MCG TABLET (FP) PO SCH (06:49)
[2021-09-12] MEDS: MINERAL OIL/PET HY-PHL TOPICAL OINTMENT 454 GM JAR TP SCH ×3 (06:49→21:47)
[2021-09-12] MEDS: FINASTERIDE 5 MG TABLET (FP) PO SCH (10:39)
[2021-09-12] MEDS: VITAMIN B COMP W-C 1 EA TABLET (NEPHRO-VITE) PO SCH (10:39)
[2021-09-12] MEDS: LACTOBACILLUS ACIDOPHILUS 1 TABLET PO SCH (10:39)
[2021-09-12] MEDS: CALCIUM ACETATE 667 MG CAPSULE (FP) PO SCH ×3 (10:39→17:50)
[2021-09-12] MEDS: CHOLECALCIFEROL (VIT D3) 1,000 UNIT (25 MCG) TABLET PO SCH (10:39)
[2021-09-12] MEDS: LIDOCAINE 5% TOPICAL PATCH TP SCH (10:40)
[2021-09-12] MEDS: SACUBITRIL/VALSARTAN 24 MG-26 MG TABLET PO SCH ×2 (10:40→22:07)
[2021-09-12] MEDS: BACITRACIN 15 GM TUBE TOPICAL OINTMENT TP SCH (10:41)
[2021-09-12] MEDS: AMINO ACIDS/PROTEIN HYDROLYS 30 ML LIQUID.PKT PO SCH (10:56)
[2021-09-12] MEDS: ACETAMINOPHEN 325 MG TABLET (FP) PO PRN (18:34)
[2021-09-12] MEDS: LIDOCAINE PATCH REMOVAL MC SCH (21:47)
[2021-09-12] MEDS: MELATONIN 1 MG TABLET PO SCH (21:47)
[2021-09-12] MEDS: SERTRALINE HCL 25 MG TABLET (FP) PO SCH (21:47)
[2021-09-12] MEDS ORDERED: PT OWN MED DRAWER 7, Y5N ONE (22:56)
[2021-09-13] MEDS: CEFTAROLINE FOSAMIL ACETATE 200 MG in DEXTROSE 5%-WATER - 100 ML IVPB SCH ×2 (02:00→15:36)
[2021-09-13] MEDS: LEVOTHYROXINE NA 25 MCG TABLET (FP) PO SCH (06:01)
[2021-09-13] MEDS: MINERAL OIL/PET HY-PHL TOPICAL OINTMENT 454 GM JAR TP SCH ×3 (06:01→21:38)
[2021-09-13] MEDS: INSULIN SLIDING SCALE (NOVOLOG) 1 VIAL SQ SCH ×4 (06:01→21:38)
[2021-09-13] MEDS ORDERED: EPOETIN ALFA-EPBX 10,000 UNIT/ML VIAL IVPUSH ONE (07:00)
[2021-09-13] MEDS: CALCIUM ACETATE 667 MG CAPSULE (FP) PO SCH ×3 (11:09→17:43)
[2021-09-13] MEDS: AMINO ACIDS/PROTEIN HYDROLYS 30 ML LIQUID.PKT PO SCH (11:09)
[2021-09-13 13:42] LABS: BASO % 0.9 % (0-2.0); EOS % 1.3 % (0-4.5); HEMATOCRIT 25.8 % (35.4-49); HEMOGLOBIN 8.4 GM/dL (11.7-16.9); LYMPH % 6.3 % (8-40); MCH 32.4 pg (25.7-33.7); MCHC 32.7 g/dl (32.0-35.9); MEAN CELL VOLUME 99.3 fl (80-96); MEAN PLT VOLUME 9.6 fl (7.5-11.1); MONO % 7.2 % (3.8-10.2); NEUT % 84.3 % (42.8-82.8); PLATELET COUNT 123 10^3/uL (134-434); RBC 2.59 M/mm3 (4.00-5.60); RDW 16.8 % (11.9-15.9); WHITE BLOOD COUNT 7.9 K/mm3 (4.0-10.0)
[2021-09-13 14:03] LABS: ALBUMIN 1.9 g/dl (3.4-5.0); BLOOD UREA NITROGEN 32.2 mg/dL (7-18)
[2021-09-13 14:06] LABS: CREATININE 4.9 mg/dL (0.55-1.3)
[2021-09-13 14:07] LABS: PHOSPHOROUS 4.3 mg/dL (2.5-4.9)
[2021-09-13 14:08] LABS: BILIRUBIN,TOTAL 0.7 mg/dL (0.2-1); TOT PROT 6.5 g/dl (6.4-8.2)
[2021-09-13] MEDS: SACUBITRIL/VALSARTAN 24 MG-26 MG TABLET PO SCH ×2 (15:37→21:38)
[2021-09-13] MEDS: LIDOCAINE 5% TOPICAL PATCH TP SCH (15:44)
[2021-09-13] MEDS: FINASTERIDE 5 MG TABLET (FP) PO SCH (15:45)
[2021-09-13] MEDS: LACTOBACILLUS ACIDOPHILUS 1 TABLET PO SCH (15:46)
[2021-09-13] MEDS: VITAMIN B COMP W-C 1 EA TABLET (NEPHRO-VITE) PO SCH (15:46)
[2021-09-13] MEDS: BACITRACIN 15 GM TUBE TOPICAL OINTMENT TP SCH (15:46)
[2021-09-13] MEDS: CHOLECALCIFEROL (VIT D3) 1,000 UNIT (25 MCG) TABLET PO SCH (15:46)
[2021-09-13] MEDS: DAPTOMYCIN 500 MG in SODIUM CHLORIDE 50 ML IVPB SCH (15:47)
[2021-09-13] MEDS ORDERED: PT OWN MED DRAWER 7, Y5N ONE (21:34)
[2021-09-13] MEDS: MELATONIN 1 MG TABLET PO SCH (21:37)
[2021-09-13] MEDS: LIDOCAINE PATCH REMOVAL MC SCH (21:38)
[2021-09-13] MEDS: SERTRALINE HCL 25 MG TABLET (FP) PO SCH (21:38)
[2021-09-14] MEDS: INSULIN SLIDING SCALE (NOVOLOG) 1 VIAL SQ SCH (06:16)
[2021-09-14] MEDS: MINERAL OIL/PET HY-PHL TOPICAL OINTMENT 454 GM JAR TP SCH ×3 (06:16→22:47)
[2021-09-14] MEDS: LEVOTHYROXINE NA 25 MCG TABLET (FP) PO SCH (06:16)
[2021-09-14] MEDS: CHOLECALCIFEROL (VIT D3) 1,000 UNIT (25 MCG) TABLET PO SCH (10:35)
[2021-09-14] MEDS: LACTOBACILLUS ACIDOPHILUS 1 TABLET PO SCH (10:35)
[2021-09-14] MEDS: VITAMIN B COMP W-C 1 EA TABLET (NEPHRO-VITE) PO SCH (10:35)
[2021-09-14] MEDS: CALCIUM ACETATE 667 MG CAPSULE (FP) PO SCH ×3 (10:35→18:10)
[2021-09-14] MEDS: SACUBITRIL/VALSARTAN 24 MG-26 MG TABLET PO SCH ×2 (10:35→22:51)
[2021-09-14] MEDS: LIDOCAINE 5% TOPICAL PATCH TP SCH (10:36)
[2021-09-14] MEDS: FINASTERIDE 5 MG TABLET (FP) PO SCH (10:36)
[2021-09-14] MEDS: BACITRACIN 15 GM TUBE TOPICAL OINTMENT TP SCH (10:36)
[2021-09-14] MEDS: AMINO ACIDS/PROTEIN HYDROLYS 30 ML LIQUID.PKT PO SCH (10:36)
[2021-09-14] MEDS: SERTRALINE HCL 25 MG TABLET (FP) PO SCH (22:46)
[2021-09-14] MEDS: LIDOCAINE PATCH REMOVAL MC SCH (22:47)
[2021-09-14] MEDS: MELATONIN 1 MG TABLET PO SCH (22:47)
[2021-09-14] MEDS ORDERED: PT OWN MED DRAWER 7, Y5N ONE ×2 (22:50→22:53)
[2021-09-14] MEDS: LOPERAMIDE HCL 2 MG CAPSULE PO PRN (22:54)
[2021-09-15] MEDS: ACETAMINOPHEN 325 MG TABLET (FP) PO PRN ×3 (01:44→22:08)
[2021-09-15] MEDS: MELATONIN 1 MG TABLET PO SCH ×2 (01:44→21:58)
[2021-09-15] MEDS: NYSTATIN 500,000 UNITS/5 ML SUSPENSION PO SCH ×4 (05:58→17:00)
[2021-09-15] MEDS: MINERAL OIL/PET HY-PHL TOPICAL OINTMENT 454 GM JAR TP SCH ×3 (05:59→21:57)
[2021-09-15] MEDS: LEVOTHYROXINE NA 25 MCG TABLET (FP) PO SCH (06:00)
[2021-09-15] MEDS: AMINO ACIDS/PROTEIN HYDROLYS 30 ML LIQUID.PKT PO SCH (10:29)
[2021-09-15] MEDS: LIDOCAINE 5% TOPICAL PATCH TP SCH (10:29)
[2021-09-15] MEDS: CALCIUM ACETATE 667 MG CAPSULE (FP) PO SCH ×3 (10:31→16:59)
[2021-09-15] MEDS: CHOLECALCIFEROL (VIT D3) 1,000 UNIT (25 MCG) TABLET PO SCH (10:31)
[2021-09-15] MEDS: LACTOBACILLUS ACIDOPHILUS 1 TABLET PO SCH (10:31)
[2021-09-15] MEDS: VITAMIN B COMP W-C 1 EA TABLET (NEPHRO-VITE) PO SCH (10:31)
[2021-09-15] MEDS: FINASTERIDE 5 MG TABLET (FP) PO SCH (10:31)
[2021-09-15] MEDS: BACITRACIN 15 GM TUBE TOPICAL OINTMENT TP SCH (10:32)
[2021-09-15] MEDS ORDERED: SODIUM CHLORIDE 250 ML IV PRN (11:00)
[2021-09-15] MEDS ORDERED: EPOETIN ALFA-EPBX 10,000 UNIT/ML VIAL IVPUSH ONE (11:15)
[2021-09-15] MEDS: ALBUMIN HUMAN 25% 12.5 GM/50 ML VIAL IVPB SCH ×2 (13:33→15:09)
[2021-09-15] MEDS: traMADol HCL 50 MG TABLET PO PRN (13:46)
[2021-09-15] MEDS: SACUBITRIL/VALSARTAN 24 MG-26 MG TABLET PO SCH ×2 (16:04→21:58)
[2021-09-15] MEDS: DAPTOMYCIN 500 MG in SODIUM CHLORIDE 50 ML IVPB SCH (17:00)
[2021-09-15] MEDS: SERTRALINE HCL 25 MG TABLET (FP) PO SCH (21:58)
[2021-09-15] MEDS: LIDOCAINE PATCH REMOVAL MC SCH (21:58)
[2021-09-16] MEDS: NYSTATIN 500,000 UNITS/5 ML SUSPENSION PO SCH ×5 (00:36→23:15)
[2021-09-16] MEDS: MINERAL OIL/PET HY-PHL TOPICAL OINTMENT 454 GM JAR TP SCH ×3 (05:45→21:35)
[2021-09-16] MEDS: LEVOTHYROXINE NA 25 MCG TABLET (FP) PO SCH (07:24)
[2021-09-16] MEDS: traMADol HCL 50 MG TABLET PO PRN (09:15)
[2021-09-16] MEDS: FINASTERIDE 5 MG TABLET (FP) PO SCH (09:18)
[2021-09-16] MEDS: AMINO ACIDS/PROTEIN HYDROLYS 30 ML LIQUID.PKT PO SCH (09:18)
[2021-09-16] MEDS: VITAMIN B COMP W-C 1 EA TABLET (NEPHRO-VITE) PO SCH (09:18)
[2021-09-16] MEDS: LACTOBACILLUS ACIDOPHILUS 1 TABLET PO SCH (09:18)
[2021-09-16] MEDS: LIDOCAINE 5% TOPICAL PATCH TP SCH (09:18)
[2021-09-16] MEDS: CHOLECALCIFEROL (VIT D3) 1,000 UNIT (25 MCG) TABLET PO SCH (09:18)
[2021-09-16] MEDS: CALCIUM ACETATE 667 MG CAPSULE (FP) PO SCH ×3 (09:18→18:03)
[2021-09-16] MEDS: SACUBITRIL/VALSARTAN 24 MG-26 MG TABLET PO SCH ×2 (09:19→23:17)
[2021-09-16] MEDS: BACITRACIN 15 GM TUBE TOPICAL OINTMENT TP SCH (09:19)
[2021-09-16] MEDS: SODIUM CHLORIDE NASAL SPRAY 44 ML BOTTLE NS PRN (09:40)
[2021-09-16] MEDS: CYCLOBENZAPRINE HCL 5 MG TABLET PO SCH (13:56)
[2021-09-16] MEDS: MELATONIN 1 MG TABLET PO SCH (21:35)
[2021-09-16] MEDS: SERTRALINE HCL 25 MG TABLET (FP) PO SCH (21:35)
[2021-09-16] MEDS: LIDOCAINE PATCH REMOVAL MC SCH (21:35)
[2021-09-17] MEDS: MINERAL OIL/PET HY-PHL TOPICAL OINTMENT 454 GM JAR TP SCH ×3 (05:41→21:45)
[2021-09-17] MEDS: NYSTATIN 500,000 UNITS/5 ML SUSPENSION PO SCH ×3 (05:41→18:10)
[2021-09-17] MEDS: LEVOTHYROXINE NA 25 MCG TABLET (FP) PO SCH (06:04)
[2021-09-17] MEDS: CALCIUM ACETATE 667 MG CAPSULE (FP) PO SCH ×3 (08:57→18:10)
[2021-09-17] MEDS: AMINO ACIDS/PROTEIN HYDROLYS 30 ML LIQUID.PKT PO SCH (08:57)
[2021-09-17] MEDS ORDERED: PT OWN MED DRAWER 7, Y5N ONE ×2 (09:51→18:03)
[2021-09-17] MEDS: LIDOCAINE 5% TOPICAL PATCH TP SCH (10:32)
[2021-09-17] MEDS: LACTOBACILLUS ACIDOPHILUS 1 TABLET PO SCH (10:32)
[2021-09-17] MEDS: SACUBITRIL/VALSARTAN 24 MG-26 MG TABLET PO SCH ×2 (10:32→21:45)
[2021-09-17] MEDS: CHOLECALCIFEROL (VIT D3) 1,000 UNIT (25 MCG) TABLET PO SCH (10:32)
[2021-09-17] MEDS: CYCLOBENZAPRINE HCL 5 MG TABLET PO SCH (10:32)
[2021-09-17] MEDS: FINASTERIDE 5 MG TABLET (FP) PO SCH (10:33)
[2021-09-17] MEDS: BACITRACIN 15 GM TUBE TOPICAL OINTMENT TP SCH (10:33)
[2021-09-17] MEDS: VITAMIN B COMP W-C 1 EA TABLET (NEPHRO-VITE) PO SCH (10:33)
[2021-09-17] MEDS ORDERED: SODIUM CHLORIDE 250 ML IV PRN (14:01)
[2021-09-17] MEDS ORDERED: EPOETIN ALFA-EPBX 10,000 UNIT/ML VIAL SQ ONE (14:15)
[2021-09-17 16:02] LABS: HEMATOCRIT 26.7 % (35.4-49); HEMOGLOBIN 8.5 GM/dL (11.7-16.9); MCH 32.2 pg (25.7-33.7); MEAN CELL VOLUME 100.5 fl (80-96); MEAN PLT VOLUME 9.5 fl (7.5-11.1); PLATELET COUNT 135 10^3/uL (134-434); RBC 2.65 M/mm3 (4.00-5.60); RDW 16.9 % (11.9-15.9); WHITE BLOOD COUNT 7.7 K/mm3 (4.0-10.0)
[2021-09-17 16:24] LABS: CALCIUM 7.7 mg/dL (8.5-10.1)
[2021-09-17 16:25] LABS: ALBUMIN 1.9 g/dl (3.4-5.0); BLOOD UREA NITROGEN 29.8 mg/dL (7-18)
[2021-09-17 16:28] LABS: CREATININE 4.3 mg/dL (0.55-1.3)
[2021-09-17 16:29] LABS: BILIRUBIN,TOTAL 0.4 mg/dL (0.2-1); TOT PROT 6.4 g/dl (6.4-8.2)
[2021-09-17] MEDS: ALBUMIN HUMAN 25% 12.5 GM/50 ML VIAL IVPB SCH ×3 (16:54→17:20)
[2021-09-17] MEDS ORDERED: DAPTOMYCIN 200 MG in SODIUM CHLORIDE 50 ML IVPB ONE (18:00)
[2021-09-17] MEDS: DAPTOMYCIN 500 MG in SODIUM CHLORIDE 50 ML IVPB SCH (18:10)
[2021-09-17] MEDS: LIDOCAINE PATCH REMOVAL MC SCH (21:45)
[2021-09-17] MEDS: SERTRALINE HCL 25 MG TABLET (FP) PO SCH (21:45)
[2021-09-17] MEDS: MELATONIN 1 MG TABLET PO SCH (21:45)
[2021-09-18] MEDS: NYSTATIN 500,000 UNITS/5 ML SUSPENSION PO SCH ×5 (01:19→23:53)
[2021-09-18] MEDS: MINERAL OIL/PET HY-PHL TOPICAL OINTMENT 454 GM JAR TP SCH ×3 (06:04→21:46)
[2021-09-18] MEDS: LEVOTHYROXINE NA 25 MCG TABLET (FP) PO SCH (06:04)
[2021-09-18] MEDS: AMINO ACIDS/PROTEIN HYDROLYS 30 ML LIQUID.PKT PO SCH (11:14)
[2021-09-18] MEDS: LIDOCAINE 5% TOPICAL PATCH TP SCH (11:14)
[2021-09-18] MEDS: CYCLOBENZAPRINE HCL 5 MG TABLET PO SCH (11:15)
[2021-09-18] MEDS: CHOLECALCIFEROL (VIT D3) 1,000 UNIT (25 MCG) TABLET PO SCH (11:15)
[2021-09-18] MEDS: FINASTERIDE 5 MG TABLET (FP) PO SCH (11:15)
[2021-09-18] MEDS: LACTOBACILLUS ACIDOPHILUS 1 TABLET PO SCH (11:15)
[2021-09-18] MEDS: CALCIUM ACETATE 667 MG CAPSULE (FP) PO SCH ×3 (11:15→17:56)
[2021-09-18] MEDS ORDERED: PT OWN MED DRAWER 7, Y5N ONE (11:21)
[2021-09-18] MEDS: VITAMIN B COMP W-C 1 EA TABLET (NEPHRO-VITE) PO SCH (11:23)
[2021-09-18] MEDS: SACUBITRIL/VALSARTAN 24 MG-26 MG TABLET PO SCH ×2 (11:23→21:47)
[2021-09-18] MEDS: BACITRACIN 15 GM TUBE TOPICAL OINTMENT TP SCH (17:00)
[2021-09-18] MEDS: MELATONIN 1 MG TABLET PO SCH (21:45)
[2021-09-18] MEDS: SERTRALINE HCL 25 MG TABLET (FP) PO SCH (21:45)
[2021-09-18] MEDS: LIDOCAINE PATCH REMOVAL MC SCH (21:46)
[2021-09-19] MEDS: NYSTATIN 500,000 UNITS/5 ML SUSPENSION PO SCH ×4 (06:15→23:28)
[2021-09-19] MEDS: MINERAL OIL/PET HY-PHL TOPICAL OINTMENT 454 GM JAR TP SCH ×3 (06:16→21:44)
[2021-09-19] MEDS: LEVOTHYROXINE NA 25 MCG TABLET (FP) PO SCH (06:16)
[2021-09-19] MEDS: AMINO ACIDS/PROTEIN HYDROLYS 30 ML LIQUID.PKT PO SCH (09:17)
[2021-09-19] MEDS: CALCIUM ACETATE 667 MG CAPSULE (FP) PO SCH ×3 (09:17→17:41)
[2021-09-19] MEDS: BACITRACIN 15 GM TUBE TOPICAL OINTMENT TP SCH (09:18)
[2021-09-19] MEDS: LACTOBACILLUS ACIDOPHILUS 1 TABLET PO SCH (09:18)
[2021-09-19] MEDS: VITAMIN B COMP W-C 1 EA TABLET (NEPHRO-VITE) PO SCH (09:18)
[2021-09-19] MEDS: LIDOCAINE 5% TOPICAL PATCH TP SCH (09:18)
[2021-09-19] MEDS: CYCLOBENZAPRINE HCL 5 MG TABLET PO SCH (09:18)
[2021-09-19] MEDS: FINASTERIDE 5 MG TABLET (FP) PO SCH (09:18)
[2021-09-19] MEDS: CHOLECALCIFEROL (VIT D3) 1,000 UNIT (25 MCG) TABLET PO SCH (09:18)
[2021-09-19] MEDS: SACUBITRIL/VALSARTAN 24 MG-26 MG TABLET PO SCH ×2 (09:19→21:36)
[2021-09-19] MEDS: SERTRALINE HCL 25 MG TABLET (FP) PO SCH (21:34)
[2021-09-19] MEDS: LIDOCAINE PATCH REMOVAL MC SCH (21:35)
[2021-09-19] MEDS: MELATONIN 1 MG TABLET PO SCH (21:35)
[2021-09-20] MEDS: MINERAL OIL/PET HY-PHL TOPICAL OINTMENT 454 GM JAR TP SCH ×3 (06:09→22:00)
[2021-09-20] MEDS: NYSTATIN 500,000 UNITS/5 ML SUSPENSION PO SCH ×3 (06:09→17:18)
[2021-09-20] MEDS: LEVOTHYROXINE NA 25 MCG TABLET (FP) PO SCH (06:09)
[2021-09-20] MEDS ORDERED: SODIUM CHLORIDE 250 ML IV PRN (06:41)
[2021-09-20] MEDS ORDERED: PT OWN MED DRAWER 7, Y5N ONE (08:15)
[2021-09-20] MEDS ORDERED: EPOETIN ALFA-EPBX 10,000 UNIT/ML VIAL IVPUSH ONE (09:00)
[2021-09-20] MEDS: CALCIUM ACETATE 667 MG CAPSULE (FP) PO SCH ×3 (10:25→17:18)
[2021-09-20] MEDS: AMINO ACIDS/PROTEIN HYDROLYS 30 ML LIQUID.PKT PO SCH (10:26)
[2021-09-20] MEDS: LACTOBACILLUS ACIDOPHILUS 1 TABLET PO SCH (10:26)
[2021-09-20] MEDS: VITAMIN B COMP W-C 1 EA TABLET (NEPHRO-VITE) PO SCH (10:26)
[2021-09-20] MEDS: FINASTERIDE 5 MG TABLET (FP) PO SCH (10:26)
[2021-09-20] MEDS: CYCLOBENZAPRINE HCL 5 MG TABLET PO SCH (10:26)
[2021-09-20] MEDS: CHOLECALCIFEROL (VIT D3) 1,000 UNIT (25 MCG) TABLET PO SCH (10:26)
[2021-09-20] MEDS: LIDOCAINE 5% TOPICAL PATCH TP SCH (10:27)
[2021-09-20] MEDS: SACUBITRIL/VALSARTAN 24 MG-26 MG TABLET PO SCH ×2 (10:27→21:10)
[2021-09-20] MEDS: BACITRACIN 15 GM TUBE TOPICAL OINTMENT TP SCH (10:27)
[2021-09-20] MEDS: DAPTOMYCIN 500 MG in SODIUM CHLORIDE 50 ML IVPB SCH (16:23)
[2021-09-20] MEDS: SERTRALINE HCL 25 MG TABLET (FP) PO SCH (21:09)
[2021-09-20] MEDS: MELATONIN 1 MG TABLET PO SCH (21:09)
[2021-09-20] MEDS: LIDOCAINE PATCH REMOVAL MC SCH (21:11)
[2021-09-21] MEDS: NYSTATIN 500,000 UNITS/5 ML SUSPENSION PO SCH ×4 (00:05→17:18)
[2021-09-21] MEDS: MINERAL OIL/PET HY-PHL TOPICAL OINTMENT 454 GM JAR TP SCH ×3 (05:19→22:00)
[2021-09-21] MEDS: LEVOTHYROXINE NA 25 MCG TABLET (FP) PO SCH (06:10)
[2021-09-21] MEDS: CALCIUM ACETATE 667 MG CAPSULE (FP) PO SCH ×3 (08:26→17:18)
[2021-09-21] MEDS: AMINO ACIDS/PROTEIN HYDROLYS 30 ML LIQUID.PKT PO SCH (08:26)
[2021-09-21] MEDS: LACTOBACILLUS ACIDOPHILUS 1 TABLET PO SCH (10:33)
[2021-09-21] MEDS: CHOLECALCIFEROL (VIT D3) 1,000 UNIT (25 MCG) TABLET PO SCH (10:33)
[2021-09-21] MEDS: FINASTERIDE 5 MG TABLET (FP) PO SCH (10:33)
[2021-09-21] MEDS: CYCLOBENZAPRINE HCL 5 MG TABLET PO SCH (10:33)
[2021-09-21] MEDS: LIDOCAINE 5% TOPICAL PATCH TP SCH (10:33)
[2021-09-21] MEDS: VITAMIN B COMP W-C 1 EA TABLET (NEPHRO-VITE) PO SCH (10:33)
[2021-09-21] MEDS: BACITRACIN 15 GM TUBE TOPICAL OINTMENT TP SCH (10:34)
[2021-09-21] MEDS ORDERED: PT OWN MED DRAWER 7, Y5N ONE ×2 (10:49→21:06)
[2021-09-21] MEDS: SACUBITRIL/VALSARTAN 24 MG-26 MG TABLET PO SCH ×2 (10:51→22:28)
[2021-09-21] MEDS: MELATONIN 1 MG TABLET PO SCH (22:28)
[2021-09-21] MEDS: LIDOCAINE PATCH REMOVAL MC SCH (22:28)
[2021-09-21] MEDS: SERTRALINE HCL 25 MG TABLET (FP) PO SCH (22:28)
[2021-09-22] MEDS: NYSTATIN 500,000 UNITS/5 ML SUSPENSION PO SCH ×4 (01:00→18:01)
[2021-09-22] MEDS: LEVOTHYROXINE NA 25 MCG TABLET (FP) PO SCH (06:00)
[2021-09-22] MEDS: MINERAL OIL/PET HY-PHL TOPICAL OINTMENT 454 GM JAR TP SCH ×3 (06:00→22:10)
[2021-09-22] MEDS ORDERED: EPOETIN ALFA-EPBX 10,000 UNIT/ML VIAL IVPUSH ONE (08:00)
[2021-09-22] MEDS: CALCIUM ACETATE 667 MG CAPSULE (FP) PO SCH ×3 (09:00→18:01)
[2021-09-22] MEDS: AMINO ACIDS/PROTEIN HYDROLYS 30 ML LIQUID.PKT PO SCH (09:00)
[2021-09-22] MEDS ORDERED: PT OWN MED DRAWER 7, Y5N ONE ×3 (09:10→21:59)
[2021-09-22] MEDS: SACUBITRIL/VALSARTAN 24 MG-26 MG TABLET PO SCH ×2 (09:41→22:04)
[2021-09-22] MEDS: CYCLOBENZAPRINE HCL 5 MG TABLET PO SCH (09:42)
[2021-09-22] MEDS: VITAMIN B COMP W-C 1 EA TABLET (NEPHRO-VITE) PO SCH (09:42)
[2021-09-22] MEDS: CHOLECALCIFEROL (VIT D3) 1,000 UNIT (25 MCG) TABLET PO SCH (09:43)
[2021-09-22] MEDS: LACTOBACILLUS ACIDOPHILUS 1 TABLET PO SCH (09:44)
[2021-09-22] MEDS: LIDOCAINE 5% TOPICAL PATCH TP SCH ×2 (09:44→09:51)
[2021-09-22] MEDS: BACITRACIN 15 GM TUBE TOPICAL OINTMENT TP SCH (09:45)
[2021-09-22] MEDS: FINASTERIDE 5 MG TABLET (FP) PO SCH (09:45)
[2021-09-22] MEDS: ALBUMIN HUMAN 25% 12.5 GM/50 ML VIAL IVPB SCH ×2 (09:52→09:53)
[2021-09-22] MEDS: DAPTOMYCIN 500 MG in SODIUM CHLORIDE 50 ML IVPB SCH (15:50)
[2021-09-22] MEDS ORDERED: SODIUM CHLORIDE 250 ML IV PRN (16:31)
[2021-09-22] MEDS: MELATONIN 1 MG TABLET PO SCH (22:04)
[2021-09-22] MEDS: SERTRALINE HCL 25 MG TABLET (FP) PO SCH (22:10)
[2021-09-22] MEDS: LIDOCAINE PATCH REMOVAL MC SCH (22:10)
[2021-09-23] MEDS: LEVOTHYROXINE NA 25 MCG TABLET (FP) PO SCH (06:13)
[2021-09-23] MEDS: NYSTATIN 500,000 UNITS/5 ML SUSPENSION PO SCH ×5 (06:13→23:25)
[2021-09-23] MEDS: MINERAL OIL/PET HY-PHL TOPICAL OINTMENT 454 GM JAR TP SCH ×3 (06:13→21:30)
[2021-09-23] MEDS: CALCIUM ACETATE 667 MG CAPSULE (FP) PO SCH ×3 (10:31→17:13)
[2021-09-23] MEDS: CYCLOBENZAPRINE HCL 5 MG TABLET PO SCH (10:31)
[2021-09-23] MEDS: FINASTERIDE 5 MG TABLET (FP) PO SCH (10:31)
[2021-09-23] MEDS: AMINO ACIDS/PROTEIN HYDROLYS 30 ML LIQUID.PKT PO SCH (10:31)
[2021-09-23] MEDS: BACITRACIN 15 GM TUBE TOPICAL OINTMENT TP SCH (10:31)
[2021-09-23] MEDS: LACTOBACILLUS ACIDOPHILUS 1 TABLET PO SCH (10:31)
[2021-09-23] MEDS: LIDOCAINE 5% TOPICAL PATCH TP SCH (10:35)
[2021-09-23] MEDS: VITAMIN B COMP W-C 1 EA TABLET (NEPHRO-VITE) PO SCH (10:35)
[2021-09-23] MEDS: SACUBITRIL/VALSARTAN 24 MG-26 MG TABLET PO SCH ×2 (10:41→21:30)
[2021-09-23] MEDS: CHOLECALCIFEROL (VIT D3) 1,000 UNIT (25 MCG) TABLET PO SCH (10:41)
[2021-09-23] MEDS ORDERED: SODIUM CHLORIDE 250 ML IV PRN (17:57)
[2021-09-23] MEDS: SERTRALINE HCL 25 MG TABLET (FP) PO SCH (21:30)
[2021-09-23] MEDS: LIDOCAINE PATCH REMOVAL MC SCH (21:30)
[2021-09-23] MEDS: MELATONIN 1 MG TABLET PO SCH (21:30)
[2021-09-23] MEDS: ACETAMINOPHEN 325 MG TABLET (FP) PO PRN (23:19)
[2021-09-24] MEDS: NYSTATIN 500,000 UNITS/5 ML SUSPENSION PO SCH ×4 (06:25→23:51)
[2021-09-24] MEDS: LEVOTHYROXINE NA 25 MCG TABLET (FP) PO SCH (06:25)
[2021-09-24] MEDS: MINERAL OIL/PET HY-PHL TOPICAL OINTMENT 454 GM JAR TP SCH ×3 (06:25→21:10)
[2021-09-24] MEDS: AMINO ACIDS/PROTEIN HYDROLYS 30 ML LIQUID.PKT PO SCH (08:23)
[2021-09-24] MEDS: CALCIUM ACETATE 667 MG CAPSULE (FP) PO SCH ×3 (08:23→17:33)
[2021-09-24] MEDS ORDERED: PT OWN MED DRAWER 7, Y5N ONE ×4 (09:06→15:55)
[2021-09-24] MEDS: LACTOBACILLUS ACIDOPHILUS 1 TABLET PO SCH (09:26)
[2021-09-24] MEDS: SACUBITRIL/VALSARTAN 24 MG-26 MG TABLET PO SCH ×2 (09:26→21:10)
[2021-09-24] MEDS: BACITRACIN 15 GM TUBE TOPICAL OINTMENT TP SCH (09:26)
[2021-09-24] MEDS: CYCLOBENZAPRINE HCL 5 MG TABLET PO SCH (09:26)
[2021-09-24] MEDS: VITAMIN B COMP W-C 1 EA TABLET (NEPHRO-VITE) PO SCH (09:26)
[2021-09-24] MEDS: FINASTERIDE 5 MG TABLET (FP) PO SCH (09:26)
[2021-09-24] MEDS: CHOLECALCIFEROL (VIT D3) 1,000 UNIT (25 MCG) TABLET PO SCH (09:26)
[2021-09-24] MEDS: LIDOCAINE 5% TOPICAL PATCH TP SCH (09:27)
[2021-09-24] MEDS ORDERED: EPOETIN ALFA-EPBX 10,000 UNIT/ML VIAL IVPUSH ONE (10:00)
[2021-09-24] MEDS ORDERED: VANCOMYCIN 1 GM in D5W (PRE-DOCKED) 1,000 MG/250 ML IVPB ONE (14:00)
[2021-09-24 17:04] LABS: HEMATOCRIT 25.8 % (35.4-49); HEMOGLOBIN 8.2 GM/dL (11.7-16.9); MCH 31.4 pg (25.7-33.7); MCHC 31.9 g/dl (32.0-35.9); MEAN CELL VOLUME 98.3 fl (80-96); MEAN PLT VOLUME 8.8 fl (7.5-11.1); PLATELET COUNT 177 10^3/uL (134-434); RBC 2.62 M/mm3 (4.00-5.60); RDW 16.9 % (11.9-15.9); WHITE BLOOD COUNT 9.2 K/mm3 (4.0-10.0)
[2021-09-24] MEDS: LIDOCAINE PATCH REMOVAL MC SCH (21:10)
[2021-09-24] MEDS: SERTRALINE HCL 25 MG TABLET (FP) PO SCH (21:10)
[2021-09-24] MEDS: MELATONIN 1 MG TABLET PO SCH (21:10)
[2021-09-25] MEDS: MINERAL OIL/PET HY-PHL TOPICAL OINTMENT 454 GM JAR TP SCH ×3 (05:47→21:42)
[2021-09-25] MEDS: NYSTATIN 500,000 UNITS/5 ML SUSPENSION PO SCH ×3 (05:47→17:57)
[2021-09-25] MEDS: LEVOTHYROXINE NA 25 MCG TABLET (FP) PO SCH (06:15)
[2021-09-25] MEDS ORDERED: PT OWN MED DRAWER 7, Y5N ONE (09:12)
[2021-09-25] MEDS: LACTOBACILLUS ACIDOPHILUS 1 TABLET PO SCH (09:14)
[2021-09-25] MEDS: CYCLOBENZAPRINE HCL 5 MG TABLET PO SCH (09:14)
[2021-09-25] MEDS: CALCIUM ACETATE 667 MG CAPSULE (FP) PO SCH ×3 (09:14→17:57)
[2021-09-25] MEDS: AMINO ACIDS/PROTEIN HYDROLYS 30 ML LIQUID.PKT PO SCH (09:14)
[2021-09-25] MEDS: CHOLECALCIFEROL (VIT D3) 1,000 UNIT (25 MCG) TABLET PO SCH (09:14)
[2021-09-25] MEDS: LOPERAMIDE HCL 2 MG CAPSULE PO PRN (09:14)
[2021-09-25] MEDS: VITAMIN B COMP W-C 1 EA TABLET (NEPHRO-VITE) PO SCH (09:14)
[2021-09-25] MEDS: BACITRACIN 15 GM TUBE TOPICAL OINTMENT TP SCH (09:15)
[2021-09-25] MEDS: FINASTERIDE 5 MG TABLET (FP) PO SCH (09:15)
[2021-09-25] MEDS: SACUBITRIL/VALSARTAN 24 MG-26 MG TABLET PO SCH ×2 (09:16→21:42)
[2021-09-25] MEDS: LIDOCAINE 5% TOPICAL PATCH TP SCH (11:38)
[2021-09-25] MEDS: SERTRALINE HCL 25 MG TABLET (FP) PO SCH (21:42)
[2021-09-25] MEDS: LIDOCAINE PATCH REMOVAL MC SCH (21:42)
[2021-09-25] MEDS: MELATONIN 1 MG TABLET PO SCH (21:42)
[2021-09-26] MEDS: NYSTATIN 500,000 UNITS/5 ML SUSPENSION PO SCH ×2 (00:44→05:58)
[2021-09-26] MEDS: MINERAL OIL/PET HY-PHL TOPICAL OINTMENT 454 GM JAR TP SCH (05:58)
[2021-09-26] MEDS: LEVOTHYROXINE NA 25 MCG TABLET (FP) PO SCH (06:00)
[2021-09-26 06:01] VITALS: BP 126/57; PULSE 80; TEMP 97.7
[2021-09-26] MEDS: LIDOCAINE 5% TOPICAL PATCH TP SCH (08:40)
[2021-09-26] MEDS: AMINO ACIDS/PROTEIN HYDROLYS 30 ML LIQUID.PKT PO SCH (08:41)
[2021-09-26] MEDS: ACETAMINOPHEN 325 MG TABLET (FP) PO PRN (08:42)
[2021-09-26] MEDS: CHOLECALCIFEROL (VIT D3) 1,000 UNIT (25 MCG) TABLET PO SCH (08:42)
[2021-09-26] MEDS: CYCLOBENZAPRINE HCL 5 MG TABLET PO SCH (08:42)
[2021-09-26] MEDS: LACTOBACILLUS ACIDOPHILUS 1 TABLET PO SCH (08:42)
[2021-09-26] MEDS: CALCIUM ACETATE 667 MG CAPSULE (FP) PO SCH (08:43)
[2021-09-26] MEDS: FINASTERIDE 5 MG TABLET (FP) PO SCH (08:43)
[2021-09-26] MEDS: VITAMIN B COMP W-C 1 EA TABLET (NEPHRO-VITE) PO SCH (08:43)
[2021-09-26] MEDS ORDERED: PT OWN MED DRAWER 7, Y5N ONE (08:46)
== END 2021-09-26 10:04 | disposition hospice, inpatient (51) | DRG 314 ==
LOC: JER 08:47 → JERBED 11:38 → J4W 15:16
PROVIDERS: ADMIT Internal Medicine; ATTEND Internal Medicine
PROC: 5A1D70Z Performance of Urinary Filtration, Intermittent, Less than 6 Hours Per Day (ICD-10-PCS; 2021-08-23)
PROC: 0W9B3ZZ Drainage of Left Pleural Cavity, Percutaneous Approach (ICD-10-PCS; principal; 2021-08-30)
PROC: 0W9G3ZX Drainage of Peritoneal Cavity, Percutaneous Approach, Diagnostic (ICD-10-PCS; 2021-08-31)
PROC: 0W9B30Z Drainage of Left Pleural Cavity with Drainage Device, Percutaneous Approach (ICD-10-PCS; 2021-09-01)
PROC: 0W9B30Z Drainage of Left Pleural Cavity with Drainage Device, Percutaneous Approach (ICD-10-PCS; 2021-09-01)
PROC: 0WPBX0Z Removal of Drainage Device from Left Pleural Cavity, External Approach (ICD-10-PCS; 2021-09-16)
PROC: 0WP9X0Z Removal of Drainage Device from Right Pleural Cavity, External Approach (ICD-10-PCS; 2021-09-24)
DX: T82.7XXA Infection and inflammatory reaction due to other cardiac and vascular devices, implants and grafts, initial encounter (principal); N18.6 End stage renal disease; J96.01 Acute respiratory failure with hypoxia; I50.23 Acute on chronic systolic (congestive) heart failure; J18.9 Pneumonia, unspecified organism; G92.8 Other toxic encephalopathy; A41.02 Sepsis due to Methicillin resistant Staphylococcus aureus; I33.9 Acute and subacute endocarditis, unspecified; E11.52 Type 2 diabetes mellitus with diabetic peripheral angiopathy with gangrene; I13.2 Hypertensive heart and chronic kidney disease with heart failure and with stage 5 chronic kidney disease, or end stage renal disease; I24.8 Other forms of acute ischemic heart disease; J98.11 Atelectasis; J90 Pleural effusion, not elsewhere classified; E87.2 Acidosis; R18.8 Other ascites; J93.9 Pneumothorax, unspecified; I25.10 Atherosclerotic heart disease of native coronary artery without angina pectoris; E03.9 Hypothyroidism, unspecified; Z95.0 Presence of cardiac pacemaker; E11.22 Type 2 diabetes mellitus with diabetic chronic kidney disease; Z99.2 Dependence on renal dialysis; E11.51 Type 2 diabetes mellitus with diabetic peripheral angiopathy without gangrene; Z89.422 Acquired absence of other left toe(s); Z95.1 Presence of aortocoronary bypass graft; I48.91 Unspecified atrial fibrillation; Z89.511 Acquired absence of right leg below knee; D64.9 Anemia, unspecified; R91.1 Solitary pulmonary nodule; I25.5 Ischemic cardiomyopathy; D69.6 Thrombocytopenia, unspecified; R94.5 Abnormal results of liver function studies; Y83.8 Other surgical procedures as the cause of abnormal reaction of the patient, or of later complication, without mention of misadventure at the time of the procedure; R19.7 Diarrhea, unspecified; F03.90 Unspecified dementia, unspecified severity, without behavioral disturbance, psychotic disturbance, mood disturbance, and anxiety; Z79.4 Long term (current) use of insulin
CPT/HCPCS: 32557; 36415; 36600; 70450-TC; 71045-TC-FY; 71046-TC-FY; 71260-TC; 72126-TC; 72129-TC; 74176-TC; 76942; 76942-TC; 80048; 80053; 80061; 82042; 82150; 82465; 82550; 82553; 82803; 82945; 82962; 83036; 83605; 83615; 83880; 83986; 84100; 84157; 84443; 84478; 84484; 85025; 85027; 85610; 85730; 86803; 86850; 86900; 86901; 87040; 87070; 87075; 87102; 87116; 87186; 87205; 87206; 87210; 87324; 87340; 87449; 87522; 88108; 88305-TC; 93005; 93010; 93306-TC; 93990-TC; 99285-25; C1729; C1769; C9803; G0480; J0131; J0878; J1644; P9047; Q5106; Q9967; U0003; U0005